=== PATIENT | male | born 1950 | race Caucasian/White ===

== ENCOUNTER 2024-03-26 12:59 | Outpatient (RCR) | payer BC, MEDICARE, SELFPAY ==
[2024-03-26 14:29] LABS: Hematocrit 25.2 % (42.0-54.0); Hemoglobin 8.3 g/dL (14.0-18.0)
[2024-03-27] MEDS: ACETAMINOPHEN 325 MG TABLET 650 MG PO (10:41)
[2024-03-27] MEDS: DIPHENHYDRAMINE HCL 25 MG CAPSULE PO (10:41)
[2024-03-27] MEDS: 0.9 % SODIUM CHLORIDE 250 ML 30 ML IV (10:45)
[2024-03-27 10:46] VITALS: BP 103/69; PULSE 98; TEMP 36.6; O2SAT 96
--- NOTE | 2024-03-27 10:52 | PC.NURSE ---
1030 alert oreinted. discussed transfusion signs and symptoms of reaction ie shortness of breath itching chest pain flank pain etc. tonotify staff. verbalizes understanding.
[2024-03-27 11:00] VITALS: BP 117/67; PULSE 77; TEMP 36.3; O2SAT 98
--- NOTE | 2024-03-27 11:49 | PC.NURSE ---
1100 tolerating transfuision without any signs or sx of reaction, but is complaining of restless legs, needs to be up walking around. 1120 prbc's increased to 250 ml hr. 1140 called [facility]. regarding restless leg symptoms, 1155 order will be faxed for oral ativan.
[2024-03-27] MEDS: LORAZEPAM 0.5 MG TABLET 1 MG PO (12:18)
--- NOTE | 2024-03-27 12:19 | PC.NURSE ---
1210 1st unit of prbc's infused. 1220 2nd unit of prbcc's initiated. medicated with ativan 1 mg po due to restless leg syndrome
[2024-03-27 12:21] VITALS: BP 115/69; TEMP 36.2; O2SAT 96
[2024-03-27 12:37] VITALS: BP 115/54; PULSE 77
--- NOTE | 2024-03-27 13:17 | PC.NURSE ---
toleraating prbc's withut any issues. up walking stillcomplains of restless leg symptoms ativan ineffective at this time
== END 2024-04-07 23:59 | disposition home or self-care (01) ==
LOC: INF 12:59
PROVIDERS: PCP Family Medicine; Visit Provider Nurse Practitioner Family
DX: D46.9 Myelodysplastic syndrome, unspecified (principal)
CPT/HCPCS: 36415; 36430; 85014; 85018; 86850; 86900; 86901; 86923; P9016

== ENCOUNTER 2024-04-17 14:52 | Inpatient (IN) | payer BC, MEDICARE, SELFPAY ==
[2024-04-17] VITALS (46 sets, daily range): BP systolic 74–158; BP diastolic 36–78; PULSE 100–132; TEMP 37.2–39.6; O2SAT 80–99; BMI 34.7; BMI 35.2
--- NOTE | 2024-04-17 14:54 | ECG_ITS ---
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
--- NOTE | 2024-04-17 15:05 | ED_ITS ---
HPI HPI - General Adult General Chief complaint: Shortness of Breath/Dyspnea Stated complaint: SHORTNESS OF BREATH Time Seen by Provider: 04/17/24 14:52 Source: patient History of Present Illness HPI narrative: Patient is a 73-year-old male with a history of multiple myeloma currently on oral chemotherapy who is referred to the emergency department by his oncology office for fever, chills, shortness of breath and bodyaches. Patient states symptoms began last night. He reports a temperature of 102.0 Fahrenheit at home, Tylenol taken prior to arrival. He states he has aching in his legs but has no other areas of pain. He is noted to be vomiting bilious emesis at time of evaluation. He states he had 1 previous episode of emesis this morning. No diarrhea. He denies sputum production with coughing. He was recently seen at [facility] and treated for urinary tract infection. He completed Macrobid. He also received a blood transfusion last week. Related Data Home Medications ?Medication ?Instructions ?Recorded ?Confirmed allopurinol 100 mg tablet 100 mg PO QDAY 04/17/24 04/17/24 atorvastatin 10 mg tablet 10 mg PO QDAY 04/17/24 04/17/24 dapsone 100 mg tablet 100 mg PO QDAY 04/17/24 04/17/24 diphenoxylate-atropine 2.5 1 tab PO Q6H PRN diarrhea 04/17/24 mg-0.025 mg tablet gabapentin 100 mg capsule 100 mg PO Q8H 04/17/24 04/17/24 insulin aspart U-100 100 unit/mL 1 sliding scale dose subcut TID 04/17/24 04/17/24 (3 mL) subcutaneous pen (Novolog FlexPen U-100 Insulin aspart) insulin glargine 100 unit/mL (3 52 unit subcut .qhs 04/17/24 04/17/24 mL) subcutaneous pen (Basaglar KwikPen U-100 Insulin) lenalidomide 2.5 mg capsule 2.5 mg PO .qhs 04/17/24 04/17/24 (Revlimid) ropinirole 2 mg tablet 2 mg PO .qhs 04/17/24 04/17/24 tamsulosin 0.4 mg capsule 0.4 mg PO Q24H 04/17/24 04/17/24 venetoclax 100 mg tablet 100 mg PO Q24H 04/17/24 04/17/24 (Venclexta) Allergies Allergy/AdvReac Type Severity Reaction Status Date / Time diphenhydramine (From AdvReac Intermediate restless Verified 03/27/24 13:17 Benadryl) leg Opioid HPI Opioid Management Most Recent Opioid Data: Last Pain Scale 8 04/17/24 17:16 04/17/24 Last MAR Pain Assessment 04/17/24 17:16 Review of Systems ROS Constitutional Reports: fever and chills Ears, nose, mouth, and throat Denies: throat pain, nasal discharge or nasal congestion Cardiovascular Denies: chest pain Respiratory Reports: shortness of breath Gastrointestinal Reports: nausea and vomiting; Denies: abdominal pain or diarrhea Musculoskeletal Denies: back pain or neck pain Integumentary/Breast Denies: rash Neurological Denies: numbness in extremities or weakness in extremities Hematologic/Lymphatic Denies: easy bruising or easy bleeding PFSH PFSH Social History Little interest or pleasure in doing things: several days Feeling down, depressed, or hopeless: several days Exam Narrative Exam Narrative: Gen.: Awake, alert, in no distress Head: Normocephalic, atraumatic ENT: Moist mucous membranes Respiratory: No respiratory distress, lungs clear bilaterally Cardio: Regular rate and rhythm Gastrointestinal: Abdomen is soft, nondistended and nontender to palpation Extremities: Moves extremities equally Psych: Normal mood and affect Neuro: No focal neuro deficit Skin: Warm, dry, intact Constitutional Vital Signs, click to edit/add: Last Vital Signs Temp 101.3 F H 04/17/24 20:02 Pulse 107 H 04/17/24 15:01 Resp 18 04/17/24 15:01 BP 158/78 H 04/17/24 15:01 Pulse Ox 98 04/17/24 19:22 O2 Del Method Nasal Cannula 04/17/24 19:22 O2 Flow Rate 2 04/17/24 19:22 Course Vital Signs Vital signs: Vital Signs Temperature 99.4 F 04/17/24 15:01 Pulse Rate 107 H 04/17/24 15:01 Respiratory Rate 18 04/17/24 15:01 Blood Pressure 158/78 H 04/17/24 15:01 Pulse Oximetry 97 04/17/24 15:01 Temperature 101.3 F H 04/17/24 20:02 Pulse Rate 107 H 04/17/24 15:01 Respiratory Rate 18 04/17/24 15:01 Blood Pressure 158/78 H 04/17/24 15:01 Pulse Oximetry 98 04/17/24 19:22 Oxygen Delivery Method Nasal Cannula 04/17/24 19:22 Oxygen Delivery Flow Rate 2 04/17/24 19:22 Medical Decision Making MDM Narrative Medical decision making narrative: 1712: Patient's [facility] cancer center oncologist was paged through the answering service to discuss the case with the patient's oncologist 1899: Laboratory studies reviewed and noted showing the patient has a white blood cell count 1.5, hemoglobin 8.9 and stable electrolytes and kidney function. He was treated with Tylenol for fever, this did not improve his fever and he is not able to take Motrin per his oncology service so ice bags were placed in his axilla and groin for temperature control. He received 2 L of IV fluids. Blood pressure is stable. Urine specimen with 2-5 white blood cells, blood cultures are pending, respiratory swabs are negative and initial chest x- ray shows no evidence of acute cardiopulmonary changes. Due to the patient's persistent tachycardia and history of cancer, he was sent for CTs of the chest, abdomen and pelvis. The studies are pending at this time. 1849: Dr. Perales returned our call, he is in agreement that the patient should be transferred to tertiary care, recommended transfer to [facility]. Patient and family are in agreement with this, they request [facility] or [facility] as they have been to those facilities previously. Patient was given additional pain medication, placed on a nasal cannula for comfort although he is otherwise hemodynamically stable at this time. Oncology requests Neupogen subcutaneously and to also give the patient gentamicin in addition to the Zosyn that he has already received. 1929: [facility], Dr. Aj accepted the patient for transfer. 1941: Patient had results of CT, CT of the chest with no evidence of acute process and CT of the abdomen and pelvis with possible colitis/diverticulitis. Patient has no abdominal pain. He has not had any diarrhea or bloody stool, un sure if this represents an acute process contributing to the patient's fever. 2141: Temperature did improve, additional pain medication was given for the patient's legs, family states that he has neuropathy that causes him pain. We contacted the [facility] transfer line, they stated that the patient will not receive a bed this evening as they are still at max capacity. Patient is admitted to this facility pending transfer to [facility]. He is hemodynamically stable at this time. SUPERVISED APC VISIT, PHYSICIAN ATTESTATION: Based on the medical record the care appears appropriate. ? Medical Records Medical records reviewed: Yes I reviewed the patient's medical records Lab Data Lab results reviewed: Yes I reviewed the patient's lab results Labs: Lab Results 04/17/24 04/17/24 04/17/24 Range/Units 15:00 15:07 15:12 WBC 1.5 L (4.0-11.0) 10^3/uL RBC 2.72 L (4.70-6.10) 10^6/uL Hgb 8.9 L (14.0-18.0) g/dL Hct 27.2 L (42.0-54.0) % MCV 100.0 H (80.0-94.0) fL MCH 32.7 (25.9-34.0) pg MCHC 32.7 (29.9-35.2) g/dL RDW 16.8 H (11.0-15.0) % Plt Count 100 L (150-450) 10^3/uL MPV 9.4 L (9.5-13.5) fL Seg Neuts % (Manual) 34.0 L (43.0-75.0) Lymphocytes % (Manual) 48.0 (20.5-60.0) % Monocytes % (Manual) 16.0 H (1.7-12.0) % Eosinophils % (Manual) 2.0 (0.9-7.0) % Basophils % (Manual) 0.0 L (0.2-2.0) % Neutrophils # (Manual) 0.51 L (1.4-6.5) 10^3/uL Lymphocytes # (Manual) 0.72 L (1.20-3.80) 10^3/uL Monocytes # (Manual) 0.24 L (0.30-0.80) 10^3/uL Eosinophils # (Manual) 0.03 (0.00-0.70) 10^3/uL Basophils # (Manual) 0.00 (0.00-0.10) 10^3/uL Hypochromasia 1+ Anisocytosis 1+ Macrocytosis 1+ PT 11.9 H (9.0-11.6) sec INR 1.14 VBG pH 7.377 (7.330-7.430) VBG pCO2 40.4 (40.0-52.0) mmHg Sodium 135 L (136-145) mmol/L Potassium 4.3 (3.5-5.1) mmol/L Chloride 102 (98-107) mmol/L Carbon Dioxide 23.8 (21.0-32.0) mmol/L Anion Gap 13.5 BUN 23.0 H (7.0-18.0) mg/dL Creatinine 1.47 H (0.70-1.30) mg/dL Est GFR ( Amer) 57 L (>=60 mL/min/1.73m^2) Est GFR (Non-Af Amer) 47 L (>=60 mL/min/1.73m^2) BUN/Creatinine Ratio 15.6 Glucose 224 H (74-106) mg/dL Lactate 2.9 H* (0.4-2.0) mmol/L Calcium 8.9 (8.5-10.1) mg/dL Total Bilirubin 1.4 H (0.2-1.0) mg/dL AST 49 H (15-37) U/L ALT 56 (16-63) U/L Alkaline Phosphatase 105 (46-116) U/L Troponin I High Sens 19.5 (4.0-76.1) pg/mL NT-Pro-B Natriuret Pep 219.0 (<=900.0) pg/mL Total Protein 7.3 (6.4-8.2) g/dL Albumin 3.1 L (3.4-5.0) g/dL Globulin 4.2 g/dL Albumin/Globulin Ratio 0.7 Urine Color (YELLOW) Urine Clarity (CLEAR) Urine pH (5.0-9.0) Ur Specific [place] (1.005-1.025) Urine Protein (NEG/TRACE) mg/dL Urine Glucose (UA) (NEGATIVE) mg/dL Urine Ketones (NEGATIVE) mg/dL Urine Occult Blood (NEGATIVE) Urine Nitrite (NEGATIVE) Urine Bilirubin (NEGATIVE) Urine Urobilinogen (0.2-1.0) EU/dL Ur Leukocyte Esterase (NEGATIVE) Urine RBC (0-2) #/HPF Urine WBC (NONE SEEN) #/HPF Ur Squamous Epith Cells (NONE/RARE) #/LPF Urine Crystals (None Seen) #/HPF Urine Bacteria (NONE SEEN) #/HPF Urine Casts (NONE SEEN) #/LPF Urine Mucus (NONE SEEN) Ur Culture Indicated? Influenza Type A Ag Negative Influenza Type B Ag Negative RSV Antigen Not detected (NOT DETECTE) SARS-CoV-2 Ag (CV2AG) Negative (NEGATIVE) 04/17/24 04/17/24 Range/Units 16:57 18:26 WBC (4.0-11.0) 10^3/uL RBC (4.70-6.10) 10^6/uL Hgb (14.0-18.0) g/dL Hct (42.0-54.0) % MCV (80.0-94.0) fL MCH (25.9-34.0) pg MCHC (29.9-35.2) g/dL RDW (11.0-15.0) % Plt Count (150-450) 10^3/uL MPV (9.5-13.5) fL Seg Neuts % (Manual) (43.0-75.0) Lymphocytes % (Manual) (20.5-60.0) % Monocytes % (Manual) (1.7-12.0) % Eosinophils % (Manual) (0.9-7.0) % Basophils % (Manual) (0.2-2.0) % Neutrophils # (Manual) (1.4-6.5) 10^3/uL Lymphocytes # (Manual) (1.20-3.80) 10^3/uL Monocytes # (Manual) (0.30-0.80) 10^3/uL Eosinophils # (Manual) (0.00-0.70) 10^3/uL Basophils # (Manual) (0.00-0.10) 10^3/uL Hypochromasia Anisocytosis Macrocytosis PT (9.0-11.6) sec INR VBG pH (7.330-7.430) VBG pCO2 (40.0-52.0) mmHg Sodium (136-145) mmol/L Potassium (3.5-5.1) mmol/L Chloride (98-107) mmol/L Carbon Dioxide (21.0-32.0) mmol/L Anion Gap BUN (7.0-18.0) mg/dL Creatinine (0.70-1.30) mg/dL Est GFR ( Amer) (>=60 mL/min/1.73m^2) Est GFR (Non-Af Amer) (>=60 mL/min/1.73m^2) BUN/Creatinine Ratio Glucose (74-106) mg/dL Lactate 3.3 H* (0.4-2.0) mmol/L Calcium (8.5-10.1) mg/dL Total Bilirubin (0.2-1.0) mg/dL AST (15-37) U/L ALT (16-63) U/L Alkaline Phosphatase (46-116) U/L Troponin I High Sens (4.0-76.1) pg/mL NT-Pro-B Natriuret Pep (<=900.0) pg/mL Total Protein (6.4-8.2) g/dL Albumin (3.4-5.0) g/dL Globulin g/dL Albumin/Globulin Ratio Urine Color Yellow (YELLOW) Urine Clarity Clear (CLEAR) Urine pH 5.5 (5.0-9.0) Ur Specific [place] 1.025 (1.005-1.025) Urine Protein >=300 A (NEG/TRACE) mg/dL Urine Glucose (UA) 250 A (NEGATIVE) mg/dL Urine Ketones Negative (NEGATIVE) mg/dL Urine Occult Blood Large A (NEGATIVE) Urine Nitrite Negative (NEGATIVE) Urine Bilirubin Negative (NEGATIVE) Urine Urobilinogen 0.2 (0.2-1.0) EU/dL Ur Leukocyte Esterase Negative (NEGATIVE) Urine RBC 20-50 A (0-2) #/HPF Urine WBC 2-5 A (NONE SEEN) #/HPF Ur Squamous Epith Cells Rare (NONE/RARE) #/LPF Urine Crystals None seen (None Seen) #/HPF Urine Bacteria Trace A (NONE SEEN) #/HPF Urine Casts None seen (NONE SEEN) #/LPF Urine Mucus Trace A (NONE SEEN) Ur Culture Indicated? No Influenza Type A Ag Influenza Type B Ag RSV Antigen (NOT DETECTE) SARS-CoV-2 Ag (CV2AG) (NEGATIVE) Imaging Data Chest x-ray: Attestation: I have reviewed the pertinent imaging results. Radiologist's impression: ITS Impressions Chest X-Ray 04/17/24 15:19 IMPRESSION: No acute cardiopulmonary process. Electronically authenticated by: HARLEEN ROACH Date: 04/17/2024 15:51 Abdomen/Pelvis CT 04/17/24 16:36 Impression: 1. Evidence of acute colitis/diverticulitis involving proximal transverse colon. Please correlate clinically. No pericolonic fluid collections or free air. 2. Cirrhotic morphology of the liver. Stable small bilateral renal hypodensities measuring up to 1.8 cm, probably cysts. 3. Degenerative disc disease at L3-L4 level. Small fat-containing umbilical hernia. Electronically authenticated by: JESSICA JOE Date: 04/17/2024 19:29 Chest CTA 04/17/24 16:36 IMPRESSION: 1. No evidence of pulmonary embolism, in limitation of respiratory motion artifacts and limited opacification of segmental and subsegmental branches of pulmonary arteries. 2. No evidence of acute cardiopulmonary process. Electronically authenticated by: Quickfilter TechnologiesWHITNEY JOE Date: 04/17/2024 19:38 ECG Data Attestation: I personally reviewed and interpreted this ECG as follows: (Sinus tachycardia at a rate of 101, right bundle branch block with ST depression in the anterior leads, no acute ST elevation or ectopy. EKG reviewed by attending physician) Critical Care Time Critical Care Time Critical Care Time: Yes Total Critical Care Time: 35 Attestation: 35 minutes of critical care time assigned for fluid resuscitation and treatment of fever and a neutropenic cancer patient in addition to transfer to tertiary care Discharge Plan Discharge Chief Complaint: Shortness of Breath/Dyspnea Time of Disposition Decision: 21:45 Discharge location: [facility] Prescriptions / Home Meds: No Action allopurinol 100 mg tablet 100 mg PO QDAY atorvastatin 10 mg tablet 10 mg PO QDAY dapsone 100 mg tablet 100 mg PO QDAY diphenoxylate-atropine 2.5-0.025 mg tablet 1 tab PO Q6H PRN (Reason: diarrhea) gabapentin 100 mg capsule 100 mg PO Q8H insulin aspart U-100 [Novolog FlexPen U-100 Insulin] 100 unit/mL (3 mL) insulin pen 1 sliding scale dose SUBCUT TID insulin glargine [Basaglar KwikPen U-100 Insulin] 100 unit/mL (3 mL) insulin pen 52 unit SUBCUT .qhs lenalidomide [Revlimid] 2.5 mg capsule 2.5 mg PO .qhs ropinirole 2 mg tablet 2 mg PO .qhs tamsulosin 0.4 mg capsule 0.4 mg PO Q24H Venclexta 100 mg tablet 100 mg PO Q24H Print Language: Nepalese Referrals: ANDRES BEST [Primary Care Provider] - 1 week
--- NOTE | 2024-04-17 15:19 | XR_ITS ---
The [address] [address] Patient Name: DARRIUS BAUER MRN: [id number] date: 1950 Sex: M Assigned Patient Location: ER Current Patient Location: ER Accession/Order Number: [id number] Exam Date: 04/17/2024 15:30 Report Date: 04/17/2024 15:51 At the request of: JINA SCHAEFER Procedure: XR chest 1V EXAM: XR chest 1V CLINICAL INDICATION: Fever TECHNIQUE: Portable frontal semi-erect view of the chest. COMPARISON: None. FINDINGS: Lines and tubes: None. Lungs: Right hemidiaphragm elevation. No convincing focal infiltrates. No pleural effusion or pneumothorax. Heart: Cardiac and mediastinal contours are unremarkable. No overt pulmonary vascular congestion. Osseous structures: No acute abnormalities. XR/XR chest 1V IMPRESSION: No acute cardiopulmonary process. Electronically authenticated by: HARLEEN ROACH Date: 04/17/2024 15:51
[2024-04-17 15:23] LABS: Hematocrit 27.2 % (42.0-54.0); Hemoglobin 8.9 g/dL (14.0-18.0); Mean Corpuscular HGB Conc 32.7 g/dL (29.9-35.2); Mean Corpuscular Hemoglobin 32.7 pg (25.9-34.0); Mean Platelet Volume 9.4 fL (9.5-13.5); Platelet Count 100 10^3/uL (150-450); Red Blood Count 2.72 10^6/uL (4.70-6.10); Red Cell Distribution Width 16.8 % (11.0-15.0); White Blood Count 1.5 10^3/uL (4.0-11.0)
[2024-04-17] MEDS: 0.9 % SODIUM CHLORIDE 1,000 ML 999 ML IV (15:23)
[2024-04-17] MEDS: ONDANSETRON PF 4 MG/2 ML VIAL IV ×2 (15:24→17:16)
[2024-04-17] MEDS: HYDROMORPHONE HCL 0.5 MG/0.5 ML SYRINGE IV ×3 (15:24→21:00)
[2024-04-17 15:30] LABS: PCO2 VBG 40.4 mmHg (40.0-52.0); pH VBG 7.377 (7.330-7.430)
[2024-04-17 15:33] LABS: Internal Control Within Normal Limits; Respiratory Syncytial Virus Not Detected (NOT DETECTE)
[2024-04-17 15:34] LABS: INR 1.14; Prothrombin Time 11.9 sec (9.0-11.6)
[2024-04-17 15:34] LABS: Influenza Virus A Antigen Negative; Influenza Virus B Antigen Negative; Internal Control Within Normal Limits; SARS-CoV-2 Ag NEGATIVE (NEGATIVE)
[2024-04-17 15:37] LABS: Alanine Aminotransferase 56 U/L (16-63); Albumin Globulin Ratio 0.7; Albumin Level 3.1 g/dL (3.4-5.0); Alkaline Phosphatase 105 U/L (46-116); Anion Gap 13.5; Aspartate Amino Transferase 49 U/L (15-37); BUN Creatinine Ratio 15.6; Bilirubin Total 1.4 mg/dL (0.2-1.0); Calcium 8.9 mg/dL (8.5-10.1); Carbon Dioxide 23.8 mmol/L (21.0-32.0); Chloride 102 mmol/L (98-107); Estimated GFR (African America 57 (>=60 mL/min/1.73m^2); Estimated GFR (Non-African Ame 47 (>=60 mL/min/1.73m^2); Globulin 4.2 g/dL; Glucose 224 mg/dL (74-106); Potassium 4.3 mmol/L (3.5-5.1); Sodium 135 mmol/L (136-145); Total Protein 7.3 g/dL (6.4-8.2)
[2024-04-17 15:44] LABS: Troponin I High Sensitivity 19.5 pg/mL (4.0-76.1)
[2024-04-17 15:46] LABS: Lactate/Lactic Acid 2.9 mmol/L (0.4-2.0)
[2024-04-17 16:23] LABS: Eosinophils Absolute Manual 0.03 10^3/uL (0.00-0.70); Lymphocytes Absolute Manual 0.72 10^3/uL (1.20-3.80); Monocytes Absolute Manual 0.24 10^3/uL (0.30-0.80); Segmented Neut Absolute Manual 0.51 10^3/uL (1.4-6.5)
[2024-04-17 16:24] LABS: Anisocytosis 1+; Hypochromasia 1+; Macrocytosis 1+
--- NOTE | 2024-04-17 16:36 | CT_ITS ---
The [address] [address] Patient Name: DARRIUS BAUER MRN: [id number] date: 1950 Sex: M Assigned Patient Location: ER Current Patient Location: Accession/Order Number: [id number] Exam Date: 04/17/2024 17:50 Report Date: 04/17/2024 19:29 At the request of: JINA SCHAEFER Procedure: CT abdomen pelvis w con Indication: Fever. Nausea. Vomiting. Comparison: 08/03/2022 exam Procedure: Axial images were made from the diaphragms through the symphysis pubis. No oral contrast was given prior to scanning. Omnipaque 350 Intravenous contrast was given. Dose reduction techniques were achieved by using automated exposure control and/or adjustment of mA and/or kV according to patient size and/or use of iterative reconstruction technique. Findings: Liver/Biliary System: Postoperative changes status post partial resection of right lobe of the liver. Cirrhotic morphology of the liver. No liver masses are seen. No intra or extrahepatic biliary dilatation. Status postcholecystectomy. Pancreas/Spleen: No evidence of acute pancreatitis. Pancreatic duct is not dilated. No pancreatic masses. No splenomegaly or splenic lesions. Kidneys/Adrenals: Normal symmetrical nephrograms. No renal masses. Stable small bilateral renal hypodensities measuring up to 1.8 cm, probably cysts. No renal or ureteral stones are seen. No hydronephrosis or hydroureter bilaterally. No adrenal nodules. Aorta/Vessels: No evidence of aortic aneurysm. Patent IVC, renal veins, hepatic veins and portal venous system. Bowel/Fluid/Nodes: Diffuse colonic diverticulosis. Diffuse wall thickening of proximal transverse colon with adjacent fat stranding suggestive of acute colitis/diverticulitis. Please correlate clinically. No fluid collections or free air is seen adjacent to the inflamed transverse colon. Normal appendix. No small bowel dilatation or wall thickening. No evidence of bowel obstruction. No ascites. No adenopathy. Lung bases: Clear. Other findings: No aggressive osseous lesions are seen. Small fat-containing umbilical hernia. Pelvis: No pelvic masses or adenopathy. No free fluid seen in the pelvis. Bladder, seminal vesicles and prostate are unremarkable. Other Findings: No aggressive osseous lesions are seen. Degenerative disc disease at L3-L4 level. CT/CT abdomen pelvis w con Impression: 1. Evidence of acute colitis/diverticulitis involving proximal transverse colon. Please correlate clinically. No pericolonic fluid collections or free air. 2. Cirrhotic morphology of the liver. Stable small bilateral renal hypodensities measuring up to 1.8 cm, probably cysts. 3. Degenerative disc disease at L3-L4 level. Small fat-containing umbilical hernia. Electronically authenticated by: JESSICA JOE Date: 04/17/2024 19:29
--- NOTE | 2024-04-17 16:36 | CT_ITS ---
[address] [address] Patient Name: DARRIUS BAUER MRN: [id number] date: 1950 Sex: M Assigned Patient Location: ER Current Patient Location: Accession/Order Number: [id number] Exam Date: 04/17/2024 17:50 Report Date: 04/17/2024 19:38 At the request of: JINA SCHAEFER Procedure: CT angio chest EXAMINATION: CT CHEST WITHOUT ONLY. HISTORY: Shortness of breath. COMPARISON: 08/03/2022 exam TECHNIQUE: CT examination of the chest with IV contrast. CT angiography protocol was obtained. Omnipaque 350 injected intravenously. Coronal and sagittal reformations were performed. Dose reduction techniques were achieved by using automated exposure control and/or adjustment of mA and/or kV according to patient size and/or use of iterative reconstruction technique. Findings: Heart/vascular: No evidence of pulmonary embolism, in limitation of limited opacification of segmental and subsegmental branches of pulmonary arteries. Respiratory motion artifacts as well limited evaluation in small pulmonary arteries due to patient's inability to hold breath properly during the exam. No evidence of aortic aneurysm or dissection. No pericardial effusion. Extrathoracic:No axillary adenopathy. No subcutaneous nodules are seen.. Pleura:No pleural effusion or pneumothorax. No pleural calcifications. LUNGS:No acute consolidation. No atelectasis. No pulmonary nodules or masses are seen. Patent major airways. No bronchiectasis. Mediastinum/paresh:No adenopathy or masses. Osseous structures:No aggressive osseous lesions are seen. CT/CT angio chest IMPRESSION: 1. No evidence of pulmonary embolism, in limitation of respiratory motion artifacts and limited opacification of segmental and subsegmental branches of pulmonary arteries. 2. No evidence of acute cardiopulmonary process. Electronically authenticated by: JESSICA JOE Date: 04/17/2024 19:38
[2024-04-17 17:09] LABS: Bilirubin Urine NEGATIVE (NEGATIVE); Blood Urine LARGE (NEGATIVE); Clarity Urine CLEAR (CLEAR); Color Urine YELLOW (YELLOW); Glucose Urine UA 250 mg/dL (NEGATIVE); Ketones Urine NEGATIVE (NEGATIVE); Leukocyte Esterase Urine NEGATIVE (NEGATIVE); Nitrite Urine NEGATIVE (NEGATIVE); Protein Urine >=300 mg/dL (NEG/TRACE); Specific Gravity Urine 1.025 (1.005-1.025); Urine Microscopic Indicated YES; Urobilinogen Urine 0.2 EU/dL (0.2-1.0); pH Urine 5.5 (5.0-9.0)
[2024-04-17] MEDS: ACETAMINOPHEN 500 MG TABLET 1000 MG PO (17:16)
[2024-04-17] MEDS: 0.9 % SODIUM CHLORIDE 1,000 ML 1000 ML IV ×2 (17:16→20:01)
[2024-04-17] MEDS: PIPERACILLIN SODIUM/TAZOBACTAM 4.5 GM in 0.9 % SODIUM CHLORIDE 50 ML IV (17:17)
[2024-04-17 17:22] LABS: Bacteria Urine TRACE #/HPF (NONE SEEN); Cast Seen? NONE SEEN #/LPF (NONE SEEN); Crystals Seen? None Seen #/HPF (None Seen); Mucus Urine TRACE (NONE SEEN); RBC Urine 20-50 #/HPF (0-2); Squamous Epithelial Cell Urine RARE #/LPF (NONE/RARE); Urine Culture Indicated NO
[2024-04-17 18:50] LABS: Lactate/Lactic Acid 3.3 mmol/L (0.4-2.0)
[2024-04-17] MEDS: FILGRASTIM 480 MCG/1.6 ML VIAL SUBQ (20:37)
[2024-04-17] MEDS: SODIUM CHLORIDE 0.9% IV (20:38)
[2024-04-17] MEDS: GENTAMICIN SULFATE IV (20:38)
[2024-04-17] MEDS: FENTANYL CITRATE/PF 100 MCG/2 ML VIAL 50 MCG IV (22:31)
[2024-04-17] MEDS: 0.9 % SODIUM CHLORIDE 1,000 ML 250 ML IV (22:36)
--- NOTE | 2024-04-17 23:45 | PC.NURSE ---
Unable to document Genamin
[2024-04-18] VITALS (23 sets, daily range): BP systolic 82–131; BP diastolic 41–68; PULSE 82–112; TEMP 36.6–37.8; O2SAT 87–99
--- NOTE | 2024-04-18 00:32 | PC.NURSE ---
Pt desatting to 88% SpO2. Placed on 2L NC, now 98%
--- NOTE | 2024-04-18 01:18 | PC.NURSE ---
Dark alban/ red urine
[2024-04-18] MEDS: ROPINIROLE HCL 1 MG TABLET 2 MG PO ×2 (02:33→21:47)
[2024-04-18] MEDS: GABAPENTIN 100 MG CAPSULE PO ×2 (02:33→10:53)
[2024-04-18] MEDS: ONDANSETRON PF 4 MG/2 ML VIAL IV (05:14)
--- NOTE | 2024-04-18 05:44 | PC.NURSE ---
Pt transferred to MS unit, room 203 via wheelchair at this time. Pt states to wait until later in the morning to call his and tell her that he moved rooms.
[2024-04-18 05:54] LABS: Hematocrit 24.7 % (42.0-54.0); Hemoglobin 7.8 g/dL (14.0-18.0); Mean Corpuscular HGB Conc 31.6 g/dL (29.9-35.2); Mean Corpuscular Hemoglobin 32.4 pg (25.9-34.0); Mean Corpuscular Volume 102.5 fL (80.0-94.0); Mean Platelet Volume 9.1 fL (9.5-13.5); Platelet Count 79 10^3/uL (150-450); Red Blood Count 2.41 10^6/uL (4.70-6.10); Red Cell Distribution Width 17.1 % (11.0-15.0); White Blood Count 2.4 10^3/uL (4.0-11.0)
--- NOTE | 2024-04-18 06:01 | P.HP_ITS ---
HPI H&P: HPI History of Present Illness Chief complaint: SHORTNESS OF BREATH;NEUTROPENIC FEVER Narrative: Patient presented to the emergency room at the request of his oncologist, fever, some difficulty breathing, chills and bodyaches. Temperature 102 at home. In the emergency room found to have neutropenia, thrombocytopenia When I saw patient up on the medical surgical floor, his breathing seems comfortable, but did describe some abdominal pain. Opioid HPI Opioid Management Most Recent Pain and Opioid Data: Last Pain Scale 5 04/18/24 06:00 04/18/24 Last Pain Assessment 04/18/24 08:00 Last ORT Total Score 0 04/17/24 23:35 04/17/24 Last ORT Risk Category Low Risk 04/17/24 23:35 04/17/24 Review of Systems ROS Status of ROS 10 or more systems reviewed and unremark able except as noted in history and below [facility] Medical History (Updated 04/17/24 @ 23:49 by Gloria Rosas RN) Diabetes ?E11.9 - Type 2 diabetes mellitus without complications (ICD-10) Surgical History (Updated 04/17/24 @ 23:48 by Gloria Rosas RN) History of stem cell transplant ?Z94.84 - Stem cells transplant status (ICD-10) Social History Little interest or pleasure in doing things: not at all Feeling down, depressed, or hopeless: not at all Meds Home Medications and Allergies Home Medications ?Medication ?Instructions ?Recorded ?Confirmed ?Type allopurinol 100 mg tablet 100 mg PO QDAY 04/17/24 04/17/24 History atorvastatin 10 mg tablet 10 mg PO QPM 04/17/24 04/18/24 History dapsone 100 mg tablet 100 mg PO QDAY 04/17/24 04/17/24 History diphenoxylate-atropine 2.5 1 tab PO Q6H PRN diarrhea 04/17/24 04/18/24 History mg-0.025 mg tablet gabapentin 100 mg capsule 100 mg PO Q8H 04/17/24 04/17/24 History insulin aspart U-100 100 unit/mL 1 sliding scale dose subcut TID 04/17/24 04/17/24 History (3 mL) subcutaneous pen (Novolog FlexPen U-100 Insulin aspart) insulin glargine 100 unit/mL (3 52 unit subcut .qhs 04/17/24 04/17/24 History mL) subcutaneous pen (Basaglar KwikPen U-100 Insulin) lenalidomide 2.5 mg capsule 2.5 mg PO .qhs 04/17/24 04/17/24 History (Revlimid) ropinirole 2 mg tablet 2 mg PO .qhs 04/17/24 04/17/24 History tamsulosin 0.4 mg capsule 0.4 mg PO Q24H 04/17/24 04/17/24 History venetoclax 100 mg tablet 100 mg PO Q24H 04/17/24 04/17/24 History (Venclexta) Allergies Allergy/AdvReac Type Severity Reaction Status Date / Time diphenhydramine (From AdvReac Intermediate restless Verified 03/27/24 13:17 Benadryl) leg Exam Constitutional Vital Signs, click to edit/add: Last Vital Signs Temp 99.1 F 04/18/24 04:59 Pulse 101 H 04/18/24 04:59 Resp 16 04/18/24 04:59 BP 98/58 04/18/24 04:59 Pulse Ox 96 04/18/24 04:59 O2 Del Method Room Air 04/18/24 02:21 O2 Flow Rate 2 04/18/24 00:31 Documenting provider has reviewed patient's vital signs: yes Common normals: apparent distress (Mild painful distress) Exam limitations: no altered mental status Chest Common normals: inspection of chest normal Respiratory Common normals: normal respiratory effort (Somewhat shallow due to increased abdominal pain with deep breathing), no use of accessory muscles and clear to auscultation bilaterally Cardio Common normals: regular rate, regular rhythm and no murmurs GI Common normals: Normal to inspection, nondistended, normoactive bowel sounds present and soft to palpation; tender Palpation: tender (More mid abdomen, also pain to mid abdomen with palpation of left lowr quad) and rebound tenderness present Extremity Common normals: normal to inspection Neuro Common normals: oriented x3, CN's II-XII intact bilaterally and moves all extremities Results Labs Labs: Short CBC 04/17/24 Range/Units 15:00 WBC 1.5 L (4.0-11.0) 10^3/uL Hgb 8.9 L (14.0-18.0) g/dL Hct 27.2 L (42.0-54.0) % Plt Count 100 L (150-450) 10^3/uL BMP 04/17/24 15:00 Sodium 135 L Potassium 4.3 Chloride 102 Carbon Dioxide 23.8 BUN 23.0 H Creatinine 1.47 H Glucose 224 H Calcium 8.9 Liver Function 04/17/24 Range/Units 15:00 Total Bilirubin 1.4 H (0.2-1.0) mg/dL AST 49 H (15-37) U/L ALT 56 (16-63) U/L Alkaline Phosphatase 105 (46-116) U/L Albumin 3.1 L (3.4-5.0) g/dL Urine 04/17/24 Range/Units 16:57 Urine Color Yellow (YELLOW) Urine Clarity Clear (CLEAR) Urine pH 5.5 (5.0-9.0) Ur Specific [place] 1.025 (1.005-1.025) Urine Protein >=300 A (NEG/TRACE) mg/dL Urine Glucose (UA) 250 A (NEGATIVE) mg/dL ABG ABG results: 04/17/24 15:12 VBG pH 7.377 VBG pCO2 40.4 Assessment and Plan Assessment and Plan (1) Multiple myeloma: (2) SIRS (systemic inflammatory response syndrome): (3) Neutropenic fever: (4) Diabetes: Plan Admission findings: Fever to 103.2, sinus tachycardia, respiratory distress, hypotension despite 2 L of IV fluids with a MAP of 57, acute hypoxia, neutropenia, anemia, thrombocytopenia, hyponatremia, acute kidney injury, hyperglycemia, bandemia, positive urinalysis with hematuria and acute abdominal findings with lactic acidosis and elevated liver function test with coagulopathy secondary to acute diverticulitis resulting in severe sepsis with septic shock, hypotensive despite IV fluid resuscitation. Acute abdomen with acute diverticulitis and rebound tenderness with neutropenic sepsis with severe sepsis and bandemia, ANC on admission 0.5-continue with IV antibiotics, severe sepsis with septic shock secondary to the acute diverticulitis, shock seems to be improved after third bolus of IV fluids, no need for IV pressors at this time. Patient high risk for reoccurrence of his hypotension with significant immune deficiency and ANC of 0.5 on admission Hematuria with possible acute UTI-culture pending, continue with antibiotics as outlined above Neutropenic sepsis secondary to acute diverticulitis and complicated by his multiple myeloma treatment on chemotherapy Coagulopathy with elevated INR-repeat this a.m., coagulopathy secondary to the severe sepsis with neutropenic sepsis as outlined above Thrombocytopenia secondary to chemotherapy for the multiple myeloma-worse today. Continue to monitor Acute kidney injury stage II (baseline creatinine of 1, up to 1.8 today, so 180% above baseline and decreased urine output with urine output of 0.14 cc/kg/hr) - continue with IV fluid resuscitation and received 3 boluses and continue with IV fluids may need recurrent boluses based on hypotension due to severe sepsis with septic shock Hyponatremia-improved this morning with IV fluid resuscitation Elevated liver function test with hyperbilirubinemia-reviewed CT scan, possible cirrhosis, repeat serial labs likely a complication of the severe sepsis and cirrhosis IDDM-insulin sliding scale, will cut back his long-acting dose in half with patient being n.p.o. Moderate protein calorie malnutrition-will diet manage this once he is taking oral intake again Multiple myeloma-will maintain current oral agents Admission status: Patient admitted with neutropenic sepsis with ANC of 51, bandemia, severe sepsis with septic shock, failing IV boluses, lactic acidosis secondary to acute abdomen secondary to acute diverticulitis, medically necessary treatment will span 2 midnights. Inpatient status.
[2024-04-18 06:11] LABS: Alanine Aminotransferase 42 U/L (16-63); Albumin Globulin Ratio 0.6; Albumin Level 2.4 g/dL (3.4-5.0); Alkaline Phosphatase 68 U/L (46-116); Anion Gap 14.6; Aspartate Amino Transferase 37 U/L (15-37); BUN Creatinine Ratio 14.2; Bilirubin Total 2.1 mg/dL (0.2-1.0); Calcium 7.6 mg/dL (8.5-10.1); Carbon Dioxide 22.2 mmol/L (21.0-32.0); Chloride 105 mmol/L (98-107); Estimated GFR (African America 43 (>=60 mL/min/1.73m^2); Estimated GFR (Non-African Ame 35 (>=60 mL/min/1.73m^2); Globulin 3.9 g/dL; Glucose 255 mg/dL (74-106); Potassium 4.8 mmol/L (3.5-5.1); Sodium 137 mmol/L (136-145); Total Protein 6.3 g/dL (6.4-8.2)
[2024-04-18 06:17] LABS: Gentamicin Random 4.6 ug/mL
[2024-04-18] MEDS: PANTOPRAZOLE SODIUM 40 MG VIAL IV (06:40)
[2024-04-18] MEDS: 0.9 % SODIUM CHLORIDE 1,000 ML 1000 ML IV (06:49)
[2024-04-18 06:54] LABS: Band Neutrophils Absolute 0.2 10^3/uL (0.0-0.3); Lymphocytes Absolute Manual 0.91 10^3/uL (1.20-3.80); Metamyelocytes Absolute Manual 0.02; Monocytes Absolute Manual 0.28 10^3/uL (0.30-0.80)
[2024-04-18 07:45] LABS: Glucometer 304 mg/dL (74-106)
--- NOTE | 2024-04-18 08:29 | CM.NOTE ---
Rounds made with Dr. Pena, pt awaiting transfer to [facility]. Pt will rebound tenderness on Dr. Pena's exam this AM. Dr. Pena discussed plan of care with pt.
[2024-04-18] MEDS: PIPERACILLIN SODIUM/TAZOBACTAM 3.375 GM in 0.9 % SODIUM CHLORIDE 50 ML IV ×3 (09:21→23:45)
[2024-04-18] MEDS: 0.9 % SODIUM CHLORIDE 1,000 ML 125 ML IV ×2 (09:21→16:49)
[2024-04-18] MEDS: [UNRECOGNIZED DRUG - REMARK] 100 EACH PO (09:21)
[2024-04-18 09:33] LABS: INR 1.33; Partial Thromboplastin Time 39.2 sec (22.3-36.2); Prothrombin Time 13.7 sec (9.0-11.6)
--- NOTE | 2024-04-18 13:25 | SWNOTE1 ---
Plan is for pt to be transferred to higher level of care.
[2024-04-18 15:29] LABS: Internal Control Within Normal Limits; Occult Blood Positive
[2024-04-18 16:44] LABS: Glucometer 247 mg/dL (74-106)
[2024-04-18] MEDS: INSULIN ASPART 300 UNIT/3 ML PEN SUBQ (16:50)
[2024-04-18] MEDS: TAMSULOSIN HCL 0.4 MG CAPSULE PO (21:46)
[2024-04-18] MEDS: ACETAMINOPHEN 500 MG TABLET 1000 MG PO (21:46)
[2024-04-18] MEDS: HYOSCYAMINE SULFATE 0.125 MG TAB.SUBL SL (21:47)
[2024-04-19] VITALS (25 sets, daily range): BP systolic 102–145; BP diastolic 52–77; PULSE 62–86; TEMP 36.5–36.9; O2SAT 90–95; BMI 42.6
[2024-04-19] MEDS: 0.9 % SODIUM CHLORIDE 1,000 ML 125 ML IV ×2 (00:31→07:54)
[2024-04-19] MEDS: GABAPENTIN 100 MG CAPSULE PO ×3 (00:31→18:40)
[2024-04-19] MEDS: PANTOPRAZOLE SODIUM 40 MG VIAL IV ×2 (05:31→18:40)
[2024-04-19 06:13] LABS: Basophils Percent Auto 0.4 % (0.2-2.0); Eosinophils Percent Auto 0.4 % (0.9-7.0); Immature Granulocytes Abs Auto 0.09 10^3/uL (0.00-0.03); Lymphocytes Absolute Auto 0.9 10^3/uL (1.2-3.8); Lymphocytes Percent Auto 40.3 % (20.5-60.0); Mean Corpuscular HGB Conc 30.8 g/dL (29.9-35.2); Mean Corpuscular Hemoglobin 31.9 pg (25.9-34.0); Mean Corpuscular Volume 103.7 fL (80.0-94.0); Mean Platelet Volume 9.7 fL (9.5-13.5); Monocytes Absolute Auto 0.4 10^3/uL (0.3-0.8); Monocytes Percent Auto 16.8 % (1.7-12.0); Neutrophils Absolute Auto 0.9 10^3/uL (1.4-6.5); Neutrophils Percent Auto 38.1 % (43.0-75.0); Platelet Count 72 10^3/uL (150-450); Red Blood Count 2.16 10^6/uL (4.70-6.10); Red Cell Distribution Width 17.7 % (11.0-15.0); White Blood Count 2.3 10^3/uL (4.0-11.0)
[2024-04-19 06:27] LABS: Alanine Aminotransferase 29 U/L (16-63); Albumin Globulin Ratio 0.5; Alkaline Phosphatase 46 U/L (46-116); Anion Gap 15.5; Aspartate Amino Transferase 26 U/L (15-37); BUN Creatinine Ratio 16.2; Bilirubin Total 1.2 mg/dL (0.2-1.0); Calcium 7.2 mg/dL (8.5-10.1); Carbon Dioxide 22.3 mmol/L (21.0-32.0); Chloride 108 mmol/L (98-107); Estimated GFR (African America 47 (>=60 mL/min/1.73m^2); Estimated GFR (Non-African Ame 39 (>=60 mL/min/1.73m^2); Globulin 3.7 g/dL; Glucose 180 mg/dL (74-106); Potassium 3.8 mmol/L (3.5-5.1); Sodium 142 mmol/L (136-145); Total Protein 5.7 g/dL (6.4-8.2)
[2024-04-19 06:30] LABS: Hematocrit 22.4 % (42.0-54.0); Hemoglobin 6.9 g/dL (14.0-18.0)
[2024-04-19 06:43] LABS: INR 1.34; Prothrombin Time 13.8 sec (9.0-11.6)
[2024-04-19 06:52] LABS: Partial Thromboplastin Time 40.3 sec (22.3-36.2)
--- NOTE | 2024-04-19 07:31 | CM.NOTE ---
Rounds made with Dr. Pena, pt awaiting bed at [facility]. Pt continues with severe abdominal pain.
--- NOTE | 2024-04-19 08:23 | XR_ITS ---
The [address] [address] Patient Name: DARRIUS BAUER MRN: [id number] date: 1950 Sex: M Assigned Patient Location: [place] Current Patient Location: [place] Accession/Order Number: [id number] Exam Date: 04/19/2024 08:40 Report Date: 04/19/2024 09:19 At the request of: ANDREA ROSAS Procedure: XR acute abdomen series EXAMINATION: XR acute abdomen series HISTORY: abd pain, diverticulitis COMPARISON: 04/17/2024 FINDINGS: LUNGS: Minimal linear opacity in the right lung base, atelectasis is favored. The left lung is clear MEDIASTINUM: No abnormal widening. BOWEL GAS PATTERN: Non-obstructed. FREE AIR: None. CALCIFICATIONS: None significant. BONES: No fracture or visible bone lesion. OTHER: Negative. XR/XR acute abdomen series IMPRESSION: Right basilar atelectasis Nonobstructive bowel gas pattern Electronically authenticated by: JAMES BEST Date: 04/19/2024 09:19
--- NOTE | 2024-04-19 08:28 | P.PN_ITS ---
Progress Note: Subjective Subjective Interval history: Still with abdominal pain today. Denies chest pain or shortness of breath. Exam Constitutional Vital Signs, click to edit/add: Last Vital Signs Temp 97.8 F 04/19/24 07:34 Pulse 78 04/19/24 08:00 Resp 18 04/19/24 07:34 BP 104/54 04/19/24 07:34 Pulse Ox 90 L 04/19/24 07:34 O2 Del Method Room Air 04/19/24 07:34 O2 Flow Rate 2 04/18/24 00:31 Documenting provider has reviewed patient's vital signs: yes Common normals: apparent distress (Mild painful distress with moving in bed) Respiratory Common normals: normal respiratory effort and no retractions Cardio Common normals: regular rate and regular rhythm GI Common normals: Normal to inspection, nondistended, normoactive bowel sounds present and soft to palpation; tender Palpation: tender (Pain is admitted abdomen with palpation of left lower quadrant, pain diffus) and rebound tenderness present Progress Note: Objective Labs Labs: Short CBC 04/19/24 Range/Units 05:32 WBC 2.3 L (4.0-11.0) 10^3/uL Hgb 6.9 L* (14.0-18.0) g/dL Hct 22.4 L* (42.0-54.0) % Plt Count 72 L (150-450) 10^3/uL BMP 04/19/24 05:32 Sodium 142 Potassium 3.8 Chloride 108 H Carbon Dioxide 22.3 BUN 28.0 H Creatinine 1.73 H Glucose 180 H Calcium 7.2 L Liver Function 04/19/24 Range/Units 05:32 Total Bilirubin 1.2 H (0.2-1.0) mg/dL AST 26 (15-37) U/L ALT 29 (16-63) U/L Alkaline Phosphatase 46 (46-116) U/L Albumin 2.0 L (3.4-5.0) g/dL Progress Note: A&P Assessment and Plan (1) Multiple myeloma: (2) SIRS (systemic inflammatory response syndrome): (3) Neutropenic fever: (4) Diabetes: Plan Admission findings: Fever to 103.2, sinus tachycardia, respiratory distress, hypotension despite 2 L of IV fluids with a MAP of 57, acute hypoxia, neutropenia, anemia, thrombocytopenia, hyponatremia, acute kidney injury, hyperglycemia, bandemia, positive urinalysis with hematuria and acute abdominal findings with lactic acidosis and elevated liver function test with coagulopathy secondary to acute diverticulitis resulting in severe sepsis with septic shock, hypotensive despite IV fluid resuscitation. Acute abdomen with acute diverticulitis and rebound tenderness with neutropenic sepsis with severe sepsis and bandemia, ANC on admission 0.5-maintain current antibiotics, patient is afebrile now, does have low-grade fever 100 overnight. Blood pressure little low overnight time as well but no need for bolus, blood pressure improved this morning. Repeat acute abdominal series Hematuria with possible acute UTI-culture pending, continue with antibiotics as outlined above Chemotherapy-induced anemia-as well as acute blood loss anemia likely from upper gastrointestinal bleeding versus diverticular bleeding-double dose the Protonix, transfuse 1 unit today. Premedicate with Benadryl, steroids, Tylenol. Neutropenic sepsis secondary to acute diverticulitis and complicated by his multiple myeloma treatment on chemotherapy Coagulopathy with elevated INR-elevated further from yesterday. 1 unit of FFP today. Thrombocytopenia secondary to chemotherapy for the multiple myeloma-worse today. Not enough to transfuse Acute kidney injury stage II (baseline creatinine of 1, up to 1.8 today, so 180% above baseline and decreased urine output with urine output of 0.14 cc/kg/hr) - creatinine some better than previous day. Maintain hydration Hyponatremia-continue to monitor Elevated liver function test with hyperbilirubinemia-improved this morning IDDM-insulin sliding scale, will cut back his long-acting dose in half with patient being n.p.o. Moderate protein calorie malnutrition-will diet manage this once he is taking oral intake again Multiple myeloma-will maintain current oral agents, Neupogen today. Admission status: Patient admitted with neutropenic sepsis with ANC of 51, bandemia, severe sepsis with septic shock, failing IV boluses, lactic acidosis secondary to acute abdomen secondary to acute diverticulitis, medically necessary treatment will span 2 midnights. Inpatient status. Working with bed coordinator through for the [facility] on transfer, multiple conversations so far this morning
[2024-04-19] MEDS: PIPERACILLIN SODIUM/TAZOBACTAM 3.375 GM in 0.9 % SODIUM CHLORIDE 50 ML IV ×2 (09:17→18:40)
[2024-04-19] MEDS: METHYLPREDNISOLONE SOD SUCC PF 40 MG/ML VIAL IVP (09:17)
[2024-04-19] MEDS: DIPHENHYDRAMINE HCL 25 MG CAPSULE PO (09:17)
[2024-04-19] MEDS: 0.9 % SODIUM CHLORIDE 250 ML 10 ML IV (09:17)
[2024-04-19] MEDS: ACETAMINOPHEN 325 MG TABLET 650 MG PO (09:17)
[2024-04-19] MEDS: FILGRASTIM 480 MCG/0.8 ML SYRINGE SUBQ (09:22)
[2024-04-19] MEDS: [UNRECOGNIZED DRUG - REMARK] 100 EACH PO (09:24)
[2024-04-19] MEDS: SODIUM CHLORIDE 0.9% IV (10:02)
[2024-04-19] MEDS: GENTAMICIN SULFATE IV (10:02)
--- NOTE | 2024-04-19 12:05 | P.DS_ITS ---
DS: Providers Provider Date of admission: 04/18/24 05:23 Primary care physician: ANDRES BEST Consults: 04/18/24 05:56 Consult to Pharmacy Routine Consulting Provider: Reason for consultation: Please [place] me when Med Rec is Updated Has provider been notified: No Occupational Therapy Eval and Treat Routine Reason for consultation: Only if needed for Rehab Has provider been notified: No Physical Therapy Eval and Treat Routine Reason for consultation: Eval and Treat Has provider been notified: No DS: Diagnosis Discharge Diagnosis (1) Multiple myeloma: (2) SIRS (systemic inflammatory response syndrome): (3) Neutropenic fever: (4) Diabetes: Plan Admission findings: Fever to 103.2, sinus tachycardia, respiratory distress, hypotension despite 2 L of IV fluids with a MAP of 57, acute hypoxia, neutropenia, anemia, thrombocytopenia, hyponatremia, acute kidney injury, hype rglycemia, bandemia, positive urinalysis with hematuria and acute abdominal findings with lactic acidosis and elevated liver function test with coagulopathy secondary to acute diverticulitis resulting in severe sepsis with septic shock, hypotensive despite IV fluid resuscitation. Acute abdomen with acute diverticulitis and rebound tenderness with neutropenic sepsis with severe sepsis and bandemia, ANC on admission 0.5-maintain current antibiotics, patient is afebrile now, does have low-grade fever 100 overnight. Blood pressure little low overnight time as well but no need for bolus, blood pressure improved this morning. Repeat acute abdominal series Hematuria with possible acute UTI-culture pending, continue with antibiotics as outlined above Chemotherapy-induced anemia-as well as acute blood loss anemia likely from upper gastrointestinal bleeding versus diverticular bleeding-double dose the Protonix, transfuse 1 unit today. Premedicate with Benadryl, steroids, Tylenol. Neutropenic sepsis secondary to acute diverticulitis and complicated by his multiple myeloma treatment on chemotherapy Coagulopathy with elevated INR-elevated further from yesterday. 1 unit of FFP today. Thrombocytopenia secondary to chemotherapy for the multiple myeloma-worse today. Not enough to transfuse Acute kidney injury stage II (baseline creatinine of 1, up to 1.8 today, so 180% above baseline and decreased urine output with urine output of 0.14 cc/kg/hr) - creatinine some better than previous day. Maintain hydration Hyponatremia-continue to monitor Elevated liver function test with hyperbilirubinemia-improved this morning IDDM-insulin sliding scale, will cut back his long-acting dose in half with patient being n.p.o. Moderate protein calorie malnutrition-will diet manage this once he is taking oral intake again Multiple myeloma-will maintain current oral agents, Neupogen today. Admission status: Patient admitted with neutropenic sepsis with ANC of 51, bandemia, severe sepsis with septic shock, failing IV boluses, lactic acidosis secondary to acute abdomen secondary to acute diverticulitis, medically necessary treatment will span 2 midnights. Inpatient status. Working with bed coordinator through for [facility] on transfer, multiple conversations so far this morning DS: Summary Hospital Course Hospital Course: Patient admitted with fever to 103.2, sinus tachycardia, respiratory distress, hypotension despite 2 L of IV fluids with a MAP of 57, acute hypoxia, neutropenia, anemia, thrombocytopenia, hyponatremia, acute kidney injury, hyperglycemia, bandemia, positive urinalysis with hematuria and acute abdominal findings with lactic acidosis and elevated liver function test with coagulopathy secondary to acute diverticulitis resulting in severe sepsis with septic shock, hypotensive despite IV fluid resuscitation. Started on broad-spectrum antibiotics. Blood cultures obtained on admission. Patient continued to have low-grade fevers and abdominal pain persisting. Including his rebound tenderness. Case was discussed multiple times with [facility] was able to arrange a bed for him at one of their off of main campus facilities. Currently he is stable but still seriously ill. Status at Discharge Overall status at discharge: patient is not back to baseline Time Spent with Patient Time attestation: Total time spent providing and/or coordinating discharge services: Time spent: greater than 30 minutes Exam Constitutional Vital Signs, click to edit/add: Last Vital Signs Temp 98.3 F 04/19/24 19:39 Pulse 62 04/19/24 20:00 Resp 18 04/19/24 19:39 BP 126/54 04/19/24 19:39 Pulse Ox 93 L 04/19/24 19:39 O2 Del Method Room Air 04/19/24 19:39 O2 Flow Rate 2 04/18/24 00:31 Documenting provider has reviewed patient's vital signs: yes Common normals: apparent distress (Mild painful distress with moving in bed) Respiratory Common normals: normal respiratory effort and no retractions Cardio Common normals: regular rate and regular rhythm GI Common normals: Normal to inspection, nondistended, normoactive bowel sounds present and soft to palpation; tender Palpation: tender (Pain is admitted abdomen with palpation of left lower quadrant, pain diffus) and rebound tenderness present Discharge Plan Discharge Disposition: [facility] Condition: Fair Assessment: IV in L and R arms in tact to keep fluids running in transport Discharge Date/Time: 04/19/24 20:34 Discharge location: [facility]
[2024-04-19] MEDS: INSULIN ASPART 300 UNIT/3 ML PEN SUBQ ×2 (13:28→18:40)
--- NOTE | 2024-04-19 20:32 | PC.NURSE ---
Patient getting picked up for transportation at this time to [facility]
== END 2024-04-19 20:34 | disposition short-term general hospital (02) | DRG 871 ==
LOC: ER 21:53 → ICU 23:28 → MS 04-18 05:43
PROVIDERS: Physician Assistant; Registered Nurse; Admitting Provider Family Medicine; Emergency Provider Emergency Medicine; PCP Family Medicine; Visit Provider Family Medicine
DX: A41.9 Sepsis, unspecified organism (principal); K57.31 Diverticulosis of large intestine without perforation or abscess with bleeding; R65.21 Severe sepsis with septic shock; N39.0 Urinary tract infection, site not specified; N17.9 Acute kidney failure, unspecified; C90.00 Multiple myeloma not having achieved remission; D62 Acute posthemorrhagic anemia; D68.9 Coagulation defect, unspecified; E87.1 Hypo-osmolality and hyponatremia; E44.0 Moderate protein-calorie malnutrition; E87.20 Acidosis, unspecified; Z68.41 Body mass index [BMI] 40.0-44.9, adult; D64.81 Anemia due to antineoplastic chemotherapy; D69.59 Other secondary thrombocytopenia; D70.9 Neutropenia, unspecified; E11.65 Type 2 diabetes mellitus with hyperglycemia; E80.6 Other disorders of bilirubin metabolism; R09.02 Hypoxemia; R31.9 Hematuria, unspecified; T45.1X5A Adverse effect of antineoplastic and immunosuppressive drugs, initial encounter; Z87.440 Personal history of urinary (tract) infections; Z79.4 Long term (current) use of insulin; Z79.899 Other long term (current) drug therapy; Z88.8 Allergy status to other drugs, medicaments and biological substances
CPT/HCPCS: 36415; 36430; 71045; 71275; 74022; 74177; 80053; 80170; 81001; 82800; 82948; 83605; 83880; 84484; 85007; 85025; 85027; 85610; 85730; 86850; 86900; 86901; 87040; 87070; 87420; 87804; 87811; 93005; 94667; 94668; 94761; 96361; 96365; 96366; 96367; 96372; 96375; 96376; 97161; 97165; 99285; G0328; G0378; J1171; J1442; J1580; J2405; J2543; J2919; J3010; P9016; P9017; Q9966

== ENCOUNTER 2024-05-11 13:54 | Emergency (ER) | payer OTHER, SELFPAY ==
[2024-05-11 13:55] VITALS: BP 148/65; PULSE 84; TEMP 36.7; O2SAT 98; BMI 35.3
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
[2024-05-11] MEDS: ACETAMINOPHEN 500 MG TABLET PO (15:14)
== END 2024-05-11 16:13 | disposition home or self-care (01) ==
PROVIDERS: Emergency Provider Emergency Medicine; PCP Family Medicine
DX: S13.4XXA Sprain of ligaments of cervical spine, initial encounter (principal); V49.49XA Driver injured in collision with other motor vehicles in traffic accident, initial encounter; M54.2 Cervicalgia
CPT/HCPCS: 70450; 72125; 99284

== ENCOUNTER 2024-08-02 00:47 | Emergency (ER) | payer BC, MEDICARE, SELFPAY ==
[2024-08-02] VITALS (44 sets, daily range): BP systolic 122–156; BP diastolic 52–71; PULSE 71–111; TEMP 36.8–37.4; O2SAT 92–99; BMI 34.6
--- OUTSIDE RECORDS SUMMARY | 2024-08-02 01:08 | XMS_ITS | CCD ---
Author Organization [facility] Inform ion Partnership [facility] Care Team Providers Care Magnetic Prospecting Operator Name Role Phone Raz ARIAS, Vimal Unavailable Haroon INSURANCE SALESMAN.Soha ZAMORANO Unavailable [phone] Martha JOHNSON, Arcelia Unavailable [phone] Walter DO, Sana Christina Primary Care Provider [phone] Ish Garay Unavailable Vimal Crandall MD Unavailable Haroon INSURANCE SALESMAN.Soha ZAMORANO Unavailable Martha JOHNSON, Arcelia Unavailable [phone] Walter DO, Sana Christina Primary Care Provider DO Walter Sana G Primary Care Provider [phone] Mayra [facility] Mena Cisneros Emergency Provider [phone] Fito Michael Unavailable Raz ARIAS, Vimal Unavailable [phone] Martha JOHNSON, Arcelia Unavailable Walter DO, Sana Christina Primary Care Provider BECKI Pascal A Attending Provider Vimal Crandall MD Unavailable Haroon INSURANCE SALESMAN.Soha ZAMORANO Unavailable Martha JOHNSON, Arcelia Unavailable [phone] Walter DO, Sana Christina Primary Care Provider DR GÓMEZ LOMELI Primary Care Unavailable MARKER ., DR HOBSON Admitting Unavailable MARKER ., DR HOBSON Attending Unavailable MARKER ., DR HOBSON Consulting Unavailable RUSSELL RIVERA Unavailable Bullimore, Mena E Admitting Unavailable Bullimore, Mena E Attending Unavailable Walter, Sana G Primary Care Unavailable Bullimore, Mena E Admitting Unavailable Bullimore, Mena E Attending Unavailable Walter, Sana G Primary Care Unavailable Surfield, Harlan Admitting Unavailable Surfield, Harlan Attending Unavailable Naida, Sana A Admitting Unavailable Naida, Sana A Attending Unavailable Naida, Sana A Admitting Unavailable Naida, Sana A Attending Unavailable Bullimore, Mena E Admitting Unavailable Bullimore, Mena E Attending Unavailable Walter, Sana G Primary Care Unavailable ALEJANDRA MADDOX Referring Unavailable WALTER, SANA CHRISTINA Primary Care Unavailable Walter DO, Sana Christina Primary Care Provider Gem Phillips Unavailable Martha JOHNSON, Arcelia Unavailable Letha Best Primary Care Provider [phone] Letha Best MD Primary Care Provider Letha Best Primary Care Provider DENIS ALMANZA Referring Unavailable WALTER, SANA CHRISTINA Primary Care Unavailable WALTER, SANA CHRISTINA Primary Care Unavailable DENIS LAMANZA Referring Unavailable WALTER, SANA CHRISTINA Primary Care Unavailable DENIS ALMANZA Referring Unavailable ALMASSI, KELSI A Attending Unavailable WALTER, SANA CHRISTINA Primary Care Unavailable LETHA BEST Primary Care Unavailable YAO, AMAR C Attending Unavailable YAO, AMAR C Admitting Unavailable Walter DO, Sana Christina Primary Care Provider Walter DO, Sana G Unavailable Orlin Lorenzana Attending Unavail able LETHA BEST Primary Care Unavailable Orlin Lorenzana Admitting Unavail able Orlin Lorenzana Attending Unavail able LETHA BEST Primary Care Unavailable Kevin Vázquez Consulting Unavailable Salomón, Orlin Eason Admitting Unavail able Salomón, Orlin Eason Attending Unavail able NASIRLETHA GARCIA Primary Care Unavailable Kevin Vázquez Consulting Unavailable Salomón, Orlin Eason Admitting Unavail able Salomón, Orlin Eason Attending Unavail able Salomón, Orlin Eason Admitting Unavail able NASIRLETHA RIOJAS G Primary Care Unavailable Keisha Lara Unavailable Unavailable Walter Sana Unavailable KASHMIR LUA Attending Unavailable LETHA BEST Referring Unavailable FIDELINA NEIL Attending Unavailable LETHA BEST Referring Unavailable MIGUEL ANGEL LORA Attending Unavailable FIDELINA NEIL Attending Unavailable NASIRLETHA Referring Unavailable FIDELINA NEIL Attending Unavailable NASIRLETHA GARCIA Referring Unavailable FIDELINA NEIL Attending Unavailable LETHA BEST Referring Unavailable FIDELINA NEIL Attending Unavailable LETHA BEST Referring Unavailable KAY TORRES Attending Unavailable LETHA BEST Referring Unavailable FIDELINA NEIL Attending Unavailable NASIRLETHA GARCIA Referring Unavailable KAY TORRES Attending Unavailable LETHA BEST Referring Unavailable KAY TORRES Attending Unavailable LETHA BEST Referring Unavailable APLJORGE MENCHACA Attending Unavailable APLINGJORGE Attending Unavailable WILBER ARANGO Attending Unavailable APLINGJORGE Referring Unavailable WILBER ARANGO Attending Unavailable APLINGJORGE Referring Unavailable LETHA BEST Attending Unavailable LETHA BEST Attending Unavailable NASIRLETHA GARCIA Referring Unavailable ORLIN LORENZANA Attending Unavailable SALOMÓNORLIN Referring Unavailable SALOMÓNORLIN Referring Unavailable SALOMÓNORLIN MURCIA Attending Unavailable LEHTA BEST Attending Unavailable MIGUEL ANGEL LORA Attending Unavailable TAYA ALEXANDER Attending Unavailable TAYA ALEXANDER Attending Unavailable LETHA BEST Attending Unavailable LETHA BEST Attending Unavailable LETHA BEST Primary Care Unavailable DINH MONTEMAYOR Admitting Unavailable JAZMYN LEWIS Attending Unavailable THIERRY CASTELLANO Consulting Unavailable LETHA BEST Primary Care Unavailable PARKER URBAN Attending Unavailable WIL PERKINS Referring Unavailable LETHA BEST Primary Care Unavailable FEDERICO EUGENE Admitting Unavailable SEAN PARK Attending Unavailable GELA HODGES Unavailable ABHYANKAR, VIMAL Referring Unavailable LETHA BEST G Primary Care Unavailable SOHA NUNN Referring Unavailable LETHA BEST Primary Care Unavailable SOHA NUNN Attending Unavailable LETHA BEST Primary Care Unavailable ABHYANKAR, VIMAL Referring Unavailable LETHA BEST G Primary Care Unavailable MIGUEL ANGEL LORA Referring Unavailable LETHA BEST G Primary Care Unavailable ABHYANKAR, VIMAL Referring Unavailable ABHYANKAR, VIMAL Attending Unavailable ABHYAYDENAR, VIMAL Referring Unavailable LETHA BEST G Primary Care Unavailable ABHYANKAR, VIMAL Referring Unavailable LETHA BEST G Primary Care Unavailable LETHA BEST G Primary Care Unavailable MIGUEL ANGEL LORA Referring Unavailable LETHA BEST G Primary Care Unavailable LETHA BEST G Primary Care Unavailable ABHYANKAR, VIMAL Referring Unavailable LETHA BEST G Primary Care Unavailable ABHYANKAR, VIMAL Referring Unavailable ABHYAYDENAR, VIMAL Attending Unavailable LETHA BEST G Primary Care Unavailable SOHA NUNN Attending Unavailable ABHYANKAR, VIMAL Referring Unavailable LETHA BEST G Primary Care Unavailable ABHYANKAR, VIMAL Referring Unavailable LETHA BEST G Primary Care Unavailable ABHYANKAR, VIMAL Referring Unavailable LETHA BEST G Primary Care Unavailable ABHYANKAR, VIMAL Referring Unavailable LETHA BEST G Primary Care Unavailable LETHA BEST G Primary Care Unavailable ABHYANKAR, VIMAL Referring Unavailable LETHA BEST G Primary Care Unavailable NASIR, LETHA G Primary Care Unavailable ABHYANKAR, VIMAL Referring Unavailable ABHYANKAR, VIMAL Referring Unavailable LETHA BEST G Primary Care Unavailable NASIR, LETHA G Primary Care Unavailable ABHYANKAR, VIMAL Referring Unavailable SOHA NUNN Referring Unavailable LETHA BEST Primary Care Unavailable OSVALDO MOREIRA Attending Unavailab le ABHYANKAR, VIMAL Referring Unavailable LETHA BEST G Primary Care Unavailable ABHYANKAR, VIMAL Referring Unavailable LETHA BEST Primary Care Unavailable LETHA BEST G Primary Care Unavailable ABHYANKAR, VIMAL Attending Unavailable LETHA BEST G Primary Care Unavailable NASIR, LETHA G Primary Care Unavailable LORENA BLACKWELL Attending Unavailable ABHYANKAR, VIMAL Referring Unavailable LETHA BEST G Primary Care Unavailable MIGUEL ANGEL LORA F. Referring Unavailable LETHA BEST G Primary Care Unavailable MIGUEL ANGEL LORA F. Referring Unavailable LETHA BEST G Primary Care Unavailable NASIR, LETHA G Primary Care Unavailable NASIR, LETHA G Primary Care Unavailable ABHYANKAR, VIMAL Referring Unavailable LETHA BEST G Primary Care Unavailable ABHYANKAR, VIMAL Referring Unavailable ABHYANKAR, VIMAL Referring Unavailable LETHA BEST G Primary Care Unavailable LORENA BLACKWELL Attending Unavailable LETHA BEST G Primary Care Unavailable ABHYANKAR, VIMAL Referring Unavailable LETHA BEST G Primary Care Unavailable BETZY, MIGUEL ANGEL F. Referring Unavailable ABHYANKAR, VIMAL Referring Unavailable LETHA BEST G Primary Care Unavailable ABHYANKAR, VIMAL Referring Unavailable LETHA BEST G Primary Care Unavailable ABHYANKAR, VIMAL Referring Unavailable LETHA BEST G Primary Care Unavailable ABHYANKAR, VIMAL Referring Unavailable LETHA BEST G Primary Care Unavailable ABHYANKAR, VIMAL Attending Unavailable ABHYANKAR, VIMAL Referring Unavailable LETHA BEST G Primary Care Unavailable LETHA BEST G Primary Care Unavailable JAZMYN LEWIS Referring Unavailable LETHA BEST G Primary Care Unavailable BLAKE INGRAM Attending Unavailable LETHA BEST G Primary Care Unavailable NASIR, LETHA G Primary Care Unavailable LETHA BEST G Primary Care Unavailable ABHYANKAR, VIMAL Attending Unavailable LETHA BEST G Primary Care Unavailable LETHA BEST G Primary Care Unavailable ABHYANKAR, VIMAL Referring Unavailable ABHYANKAR, VIMAL Referring Unavailable LETHA BEST G Primary Care Unavailable ABHYANKAR, VIMAL Referring Unavailable LETHA BEST Primary Care Unavailable ABHYANKAR, VIMAL Referring Unavailable LETHA BEST Primary Care Unavailable ABYUVALAR, VIMAL Referring Unavailable LETHA BEST Primary Care Unavailable LETHA BEST Primary Care Unavailable LETHA BEST Primary Care Unavailable LETHA BEST Primary Care Unavailable KELSI STEVENS Attending Unavailable LETHA BEST Primary Care Unavailable ABHYAYDENAR, VIMAL Attending Unavailable LETHA BEST Primary Care Unavailable LETHA BEST Primary Care Unavailable ABYUVALAR, VIMAL Attending Unavailable LETHA BEST Primary Care Unavailable LETHA BEST Primary Care Unavailable ABYUVALAR, VIMAL Attending Unavailable LETHA BEST Primary Care Unavailable LETHA BEST Primary Care Unavailable ABYUVALAR, VIMAL Referring Unavailable LETHA BEST Primary Care Unavailable ABYUVALAR, VIMAL Attending Unavailable LETHA BEST Primary Care Unavailable LETHA BEST Primary Care Unavailable LETHA BEST Primary Care Unavailable LETHA BEST Primary Care Unavailable LETHA BEST Primary Care Unavailable ABHYAYDENAR, VIMAL Referring Unavailable LETHA BEST Primary Care Unavailable LETHA BEST Primary Care Unavailable LETHA BEST Primary Care Unavailable LETHA BEST Primary Care Unavailable ABYUVALAR, VIMAL Attending Unavailable LETHA BEST Primary Care Unavailable LETHA BEST Primary Care Unavailable ABHYANKAR, VIMAL Referring Unavailable LETHA BEST Primary Care Unavailable ABHYAYDENAR, VIMAL Attending Unavailable ABYUVALAR, VIMAL Referring Unavailable LETHA BEST Primary Care Unavailable SOHA NUNN Attending Unavailable ABYUVALAR, VIMAL Referring Unavailable LETHA BEST Primary Care Unavailable LETHA BEST Primary Care Unavailable SOHA NUNN Attending Unavailable RAZ, VIMAL Referring Unavailable SOHA NUNN Referring Unavailable LETHA BEST Primary Care Unavailable SOHA NUNN Referring Unavailable ABQUINTIN, VIMAL Attending Unavailable LETHA BEST Primary Care Unavailable LETHA BEST Primary Care Unavailable ABHYANKAR, VIMAL Referring Unavailable ABHYANKAR, VIMAL Attending Unavailable LETHA BEST Primary Care Unavailable ABHYANKAR, VIMAL Referring Unavailable LETHA BEST Primary Care Unavailable ABHYANKAR, VIMAL Referring Unavailable LETHA BEST Primary Care Unavailable ABHYANKAR, VIMAL Referring Unavailable NASIR, LETHA Jefferson Primary Care Unavailable ABHYANKAR, VIMAL Referring Unavailable NASIR, LETHA Jefferson Primary Care Unavailable ABHYANKAR, VIMAL Referring Unavailable NASIR, LETHA Jefferson Primary Care Unavailable ABHYANKAR, VIMAL Referring Unavailable NASIR, LETHA Jefferson Primary Care Unavailable ABHYANKAR, VIMAL Referring Unavailable NASIR, LETHA Jefferson Primary Care Unavailable ABHYANKAR, VIMAL Referring Unavailable LETHA BEST Primary Care Unavailable ABHYANKAR, VIMAL Referring Unavailable LETHA BEST Primary Care Unavailable ABHYANKAR, VIMAL Referring Unavailable ABHYANKAR, VIMAL Attending Unavailable LETHA BEST Primary Care Unavailable ABHYANKAR, VIMAL Referring Unavailable ABHYANKAR, VIMAL Attending Unavailable LETHA BEST Primary Care Unavailable NASIR, LETHA Jefferson Primary Care Unavailable OSVALDO MOREIRA Attending Unavailab le LETHA BEST Primary Care Unavailable OSVALDO MOREIRA Referring Unavailab le LETHA BEST Primary Care Unavailable ABHYANKAR, VIMAL Referring Unavailable ABYUVALAR, VIMAL Referring Unavailable LETHA BEST Primary Care Unavailable SOHA NUNN Referring Unavailable LETHA BEST Primary Care Unavailable LETHA BEST Primary Care Unavailable SOHA NUNN Referring Unavailable LETHA EBST Primary Care Unavailable SOHA NUNN Referring Unavailable Allergies Allergy Classification Reported Allergen(s) Allergy Type Date of Onset Reaction(s) Facility (20 sources) Oseltamivir; 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: [OSELTAMIVIR] Drug Allergy 2 Other: See Comments, Vomiting [facility] (20 sources) Sulfamethoxazole / Trimethoprim Drug Allergy 3 GI Upset, Unknown, GI intolerance [facility] (20 sources) Amoxicillin / Clavulanate; 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: [AMOXICILLIN-POT CLAVULANATE] Drug Allergy 3 Diarrhea [facility] (20 sources) Oseltamivir Drug Allergy 3 GI intolerance [facility] (4 sources) Sulfamethoxazole / Trimethoprim; 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: [SULFAMETHOXAZOLE-TR IMETHOPRIM] Drug Allergy 3 [facility] Other [place] [facility] (1 source) Amoxicillin / Clavulanate; 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: [amoxicillin-clavula evan] Drug Allergy [facility] Repository (1 source) Oseltamivir; 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: [Tamiflu] Drug Allergy [facility] Repository (5 sources) diphenhydrAMINE; 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: [DIPHENHYDRAMINE] Drug Allergy 4 Other: See Comments [facility] Medications Current Medications Medication Drug Class(es) Dates Sig (Normalized) Sig (Original) acetaminophen 325 mg / HYDROcodone bitartrate 5 mg oral tablet (20 sources) Opioid Agonist Start: 05-11-2024 take 1 tablet by mouth every four hours as needed HYDROcodone-aceta minophen ([facility]) 5-325 MG tablet Take 1 tablet by mouth every 4 (four) hours if needed 05/11/2024 Active Start: 02-04-2024 End: 02-07-2024 take 1 tablet by mouth every six hours for pain HYDROcodone-acetaminophen ([facility]) 5-325 MG tablet Indications: Post-op pain Take 1 tablet by mouth every 6 (six) hours if needed for severe pain for up to 3 days 12 tablet 02/04/2024 02/07/2024 Active acetaminophen 325 mg / oxyCODONE hydrochloride 5 mg oral tablet (20 sources) Opioid Agonist Start: 03-14-2024 End: 04-13-2024 take 1 tablet by mouth every eight hours as needed for pain oxyCODONE-acetaminophen (Percocet) 5-325 MG tablet Take 1 tablet by mouth every 8 hours as needed for pain for up to 30 days. 03/14/2024 Active acyclovir 400 mg oral tablet (20 sources) Herpesvirus Nucleoside Analog DNA Polymerase Inhibitor, Herpes Simplex Virus Nucleoside Analog DNA Polymerase Inhibitor, Herpes Zoster Virus Nucleoside Analog DNA Polymerase Inhibitor Start: 06-18-2024 End: 09-16-2024 take 1 tablet by mouth twice daily in the evening acyclovir (ZOVIRAX) 400 mg tablet Indications: Multiple myeloma not having achieved remission (HCC) Take 1 tablet by mouth two times a day. 60 tablet 2 08/01/2024 2:24 PM EDT 06/18/2024 09/16/2024 Active take 1 tablet by mouth every twe lve hours allopurinol 100 mg oral tablet (20 sources) Xanthine Oxidase Inhibitor Start: 06-28-2024 End: 09-30-2024 take 1 tablet by mouth once daily allopurinol (ZYLOPRIM) 100 mg tablet Take 1 tablet by mouth once daily. 90 tablet 07/02/2024 10:17 AM EST 06/28/2024 09/30/2024 Active Start: 12-30-2023 End: 06-20-2024 take 1 tablet by mouth once daily in the evening allopurinol (ZYLOPRIM) 100 mg tablet Take 1 tablet by mouth once daily. 90 tablet 03/22/2024 1:30 PM EST 03/19/2024 06/20/2024 Active ALPRAZolam 0.5 mg oral tablet (20 sources) Benzodiazepine Start: 03-23-2023 End: 01-06-2024 take 1 tablet by mouth three times daily as needed for anxiety ALPRAZolam (Xanax) 0.5 MG tablet Take 0.5 mg by mouth 3 (three) times a day as needed for anxiety 03/23/2023 Active Start: 09-29-2022 End: 10-08-2022 ALPRAZolam (XANAX) 0.5 mg ta blet Indications: Liver mass , Anxiety neurosis , Claustrophobia Take 1 tablet by mouth as needed for up to 4 doses. 4 tablet 0 09/29/2022 10/08/2022 Active Comment on above: Take 1 tablet by kiley th as needed for up to 4 doses. Take 1 tablet by kiley th three times a day as needed for anxiety (claustrophobia) for up to 90 days. amoxicillin 875 mg / clavulanate 125 mg oral tablet (9 sources) Penicillin-class Antibacterial Start: End: take 1 tablet by mouth every twelve hours in the evening amoxicillin-clavul anate potassium (AUGMENTIN) 875-125 mg per tablet Take 1 tablet by mouth every 12 hours for 14 days. 28 tablet 07/30/2024 2:59 PM EDT 07/30/2024 08/13/2024 Active Start: 07-16-2024 End: 07-18-2024 take 1 tablet by mouth every twelve hours amoxicillin-clavulanate potassium (AUGMENTIN) 875-125 mg per tablet Take 1 tablet by mouth every 12 hours for 2 days. 4 tablet 07/16/2024 07/18/2024 Start: 10-23-2021 End: 11-06-2021 take 1 tablet by mouth twice daily amoxicillin-clavulanic acid (AUGMENTIN) 875-125 mg per tablet Take 1 tablet by mouth twice daily for 14 days. 28 tablet 0 10/23/2021 11/06/2021 Active Comment on above: Take 1 tablet by kiley th twice daily for 14 days. atorvastatin 10 mg oral tablet (20 sources) HMG-CoA Reductase Inhibitor Start: End: take 1 tablet by mouth once daily atorvastatin (LIPITOR) 10 mg tablet Take 10 mg by mouth once daily. 08/28/2018 Active Lipitor Active Comment on above: Take 10 mg by mouth once daily. atropine sulfate 0.025 mg / diphenoxylate hydrochloride 2.5 mg oral tablet (20 sources) Anticholinergic, Cholinergic Muscarinic Antagonist, Antidiarrheal Start: 05-14-2024 diphenoxylate-atro pine (Lomotil) 2.5-0.025 MG tablet 05/14/2024 Active Start: 10-14-2023 End: 11-13-2023 take 1 tablet by mouth four times daily as needed for diarrhea diphenoxylate-atropine (LOMOTIL) 2.5-0.025 mg per tablet Indications: Diarrhea, unspecified type , Multiple myeloma not having achieved remission (HCC) , 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HCC) , Renal insufficiency Take 1 tablet by mouth four times a day as needed for diarrhea for up to 30 days. 60 tablet 1 10/14/2023 Active Start: 07-23-2021 End: 12-06-2021 take 1 tablet by mouth once daily Diphenoxylate-Atropine (Lomotil) 2.5-0.025 mg Tablet Discontinued 1 TAB PO Daily July 22, 2021 11:00pm December 06, 2021 9:56am Start: 06-05-2021 End: 02-19-2022 take 1 tablet by mouth four times daily as needed for diarrhea diphenoxylate-atropine (LOMOTIL) 2.5-0.025 mg per tablet Indications: Diarrhea, unspecified type , Multiple myeloma not having achieved remission (HCC) , 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HCC) , Renal insufficiency Take 1 tablet by mouth four times daily as needed for diarrhea for up to 15 days. 60 tablet 1 06/05/2021 02/19/2022 Discontinued (Discontinued by Patient) Lomotil Active Comment on above: Take 1 tablet by kiley four times daily as needed for diarrhea for up to 15 days. Blood-Glucose Sensor (DEXCOM G7 SENSOR) [facility] (20 sources) Blood-Glucose Se nsor (DEXCOM G7 SENSOR) liana as directed. Suspended Blood-Glucose Se nsor (DEXCOM G7 SENSOR) liana as directed. Active Blood-Glucose Se nsor (DEXCOM G7 SENSOR) liana as directed. 0 Active Comment on above: as directed. Cannabinoids (THC Free) 20 M G/ML liquid (20 sources) Cannabinoids (TH C Free) 20 MG/ML liquid as directed Orally Active Cannabinoids (TH C Free) 20 MG/ML liquid as directed Orally 0 Active cefdinir 300 mg oral capsule (9 sources) Cephalosporin Antibacterial Start: 04-25-2024 End: 05-05-2024 take 1 capsule by mouth twice daily cefdinir (OMNICEF) 300 mg capsule Take 1 capsule by mouth two times a day for 10 days. Patient should start on April 25, 2024. 20 capsule 04/25/2024 05/05/2024 Active cetirizine hydrochloride 10 mg oral tablet (20 sources) Histamine-1 Receptor Antagonist Start: 07-23-2021 take 10 mg by mouth once daily Cetirizine Active 10 MG PO Daily July 22, 2021 11:00pm Cetirizine HCl A ctive Comment on above: Take 10 mg by mouth once daily. cholecalciferol 0.025 mg oral capsule (20 sources) Vitamin D Start: take 2 capsules by mouth once daily Cholecalciferol, Vitamin D3, (VITAMIN D) 25 mcg (1,000 unit) cap Take 2 capsules by mouth once daily. 08/20/2020 Active take 1 capsule by mouth once matilda ly Cholecalciferol 25 MCG (1000 UT) 1 capsule Orally Once a day Active Comment on above: Take 2 capsules by m outh once daily. ciprofloxacin 500 mg oral tablet (20 sources) Quinolone Antimicrobial Start: 07-31-19 End: 08-14-19 take 1 tablet by mouth twice daily in the evening ciprofloxacin HCl (CIPRO) 500 mg tablet Take 1 tablet by mouth two times a day for 14 days. 28 tablet 07/30/2024 2:59 PM EDT 07/30/2024 08/13/2024 Active Start: 07-17-2024 End: 07-19-2024 take 1 tablet by mouth every twelve hours in the morning, then take 6 tablets by mouth in the evening ciprofloxacin HCl (CIPRO) 500 mg tablet Take 1 tablet by mouth every 12 hours at 6 am and 6 pm for 2 days. 4 tablet 07/17/2024 07/19/2024 Start: 01-21-2021 End: 12-04-2021 take 500 mg by mouth twice daily Ciprofloxacin Hcl Discontinued 500 MG PO Twice daily July 22, 2021 11:00pm December 04, 2021 10:35am Ciloxan 0.3 % 1 application into the lower eyelid of affected eye Ophthalmic Twice a day for 5 days Active Cipro Active Continuous Blood Gluc Sensor (Dexcom G7 Sensor[place] [facility] [place] Start: 05-18-2023 End: 08-26-2023 Continuous Blood Gluc Sensor (Dexcom G7 Sensor) [facility] [place] Indications: Type 2 diabetes mellitus with hyperglycemia, with long-term current use of insulin ([facility]) Inject 1 Device under the skin Every 10 (ten) days 10 each 3 05/18/2023 08/26/2023 Active dapagliflozin 10 mg oral tablet (20 sources) Sodium-Glucose Cotransporter 2 Inhibitor Start: 07-23-2021 End: 10-13-2022 take 1 tablet by mouth once daily Dapagliflozin (Farxiga) 10 mg Tablet Active 10 MG PO Daily July 22, 2021 11:00pm FARXIGA Active Comment on above: Take 10 mg by mouth daily with breakfast. dexamethasone 4 mg oral tablet (20 sources) Corticosteroid Start: 06-22-19 take 5 tablets by mouth every week in the morning dexAMETHasone (DECADRON) 4 mg tablet Take 5 tablets by mouth one time a week. 60 tablet 1 06/26/2024 9:12 AM EST 06/22/2024 Active Start: 06-17-2020 End: 07-23-2021 Dexamethasone Discontinued T ABLET June 17, 2020 12:00am July 23, 2021 6:35am 0.5 ml dulaglutide 3 mg/ml auto-injector (20 sources) GLP-1 Receptor Agonist Start: 11-03-2023 End: 04-09-2024 inject 1.5 mg by subcutaneous injection every week Trulicity 1.5 MG/0.5ML solution auto-injector Indications: Type 2 diabetes mellitus with hyperglycemia (CMS/HCC) INJECT 1.5 mg SUBCUTANEOUSLY ONCE A WEEK 6 mL 1 04/09/2024 Active Start: 07-12-2023 End: 01-24-2024 inject 0.75 mg by subcutaneous injection every week Trulicity 0.75 MG/0.5ML solution pen-injector INJECT 0.75mg SUBCUTANEOUSLY weekly 07/12/2023 01/24/2024 Discontinued (Therapy completed) erythromycin 0.005 mg/mg ophthalmic ointment (1 source) Macrolide, Macrolide Antimicrobial Start: 10-31-2022 Erythromycin 5 MG/GM 1 application into the lower eyelid of affected eye left eye 2-3 times per day for 7 days Oct, Active escitalopram 10 mg oral tablet (20 sources) Serotonin Reuptake Inhibitor Start: 12-06-2021 take 10 mg by mouth once daily Escitalopram Oxalate Active 10 MG PO Daily December 05, 2021 11:00pm Start: 12-06-2021 take 10 mg by mouth once daily Escitalopram Oxalate Active 10 MG PO Daily December 06, 2021 12:00am Start: 08-20-2020 End: 02-15-2023 take 1 tablet by mouth once daily escitalopram oxalate (LEXAPRO) 10 mg tablet Take 1 tablet by mouth once daily. 08/20/2020 02/15/2023 Discontinued Lexapro Active Comment on above: Take 1 tablet by kiley th once daily. fluticasone propionate 0.05 mg/actuat metered dose nasal spray (20 sources) Corticosteroid Start: 4 End: 09-11-202 4 take 1 spray(s) nasal route once daily fluticasone (Flonase) 50 MCG/ACT nasal spray Indications: Chronic frontal sinusitis Administer 1 spray into each nostril Daily 48 g 1 01/18/2024 Active take 1 spray(s) nasa l route in the morning fluticasone (Flonase) 50 MCG/ACT nasal spray Administer 1 spray into each nostril in the morning. Active gabapentin 100 mg oral capsule (20 sources) Anti-epileptic Agent Start: 11-28-2023 End: 08-15-2024 take 1 capsule by mouth three times daily gabapentin (NEURONTIN) 100 mg capsule Take 1 capsule by mouth three times a day for 30 days. 90 capsule 07/16/2024 08/15/2024 Active Start: 09-28-2020 End: 09-29-2023 take 1 capsule by mouth once daily at bedtime gabapentin (NEURONTIN) 100 mg capsule Take 1 capsule by mouth daily at bedtime for 30 days. 09/28/2020 Suspended take 1 capsule by mo ut every eight hours Neurontin 100 MG 1 capsule Orally tid Active Neurontin Active Comment on above: Take 1 capsule by mo uth daily at bedtime for 30 days. glipiZIDE 10 mg oral tablet (20 sources) Sulfonylurea Start: 06-17-2020 take 10 mg by mouth twice daily Glipizide Active 10 MG PO Twice daily June 17, 2020 12:00am End: 10-13-2022 take 1 tablet by mouth once daily glipiZIDE 10 mg tablet Take 10 mg by mouth once daily. 0 10/13/2022 Discontinued Glucotrol Active Comment on above: Take 10 mg by mouth once daily. 3 ml insulin aspart, human 100 unt/ml pen injector (20 sources) Insulin Analog Start: 12-13-2022 insulin aspart (NovoLOG FLEXPEN) 100 UNIT/ML pen Indications: Type 2 diabetes mellitus with hyperglycemia, with long-term current use of insulin ([facility]) Inject 10 Units under the skin in the morning and 10 Units at noon and 10 Units in the evening. Inject with meals. 10 mL 3 12/13/2022 Active Start: 10-13-2022 insulin aspart U-100 (NOVOLOG FLEXPEN U-100 INSULIN) 100 unit/mL (3 mL) If Blood Glucose (mg/dL) is 111-150 Give 0 units 151-200 Give 2 unit 201-250 Give 4 units 251-300 Give 6 units 301-350 Give 8 units 351-400 Give 10 units >400 Call physician. 15 mL 2 10/13/2022 5:24 PM EDT 10/13/2022 Active NovoLOG FlexPen 100 UNIT/ML as directed Subcutaneous Active NovoLOG 100 UNIT /ML as directed Injection Active Comment on above: If Blood Glucose (mg /dL) is <110 Give 0 units 111-150 Give 0 units 151-200 Give 2 unit 201-250 Give 4 units 251-300 Give 6 units 301-350 Give 8 units 351-400 Give 10 units >400 Call physician. 3 ml insulin glargine 100 unt/ml pen injector (20 sources) Insulin Analog Start: 04-24-2024 End: 07-23-2024 BASAGLAR KWIKPEN U-100 INSULIN 100 unit/mL (3 mL) Inject 52 Units subcutaneously every morning. 46.8 mL 04/24/2024 Active Start: 05-18-2023 End: 05-12-2024 insulin glargine (Basaglar KwikPen) 100 UNIT/ML pen Indications: Type 2 diabetes mellitus with hyperglycemia, with long-term current use of insulin ([facility]) Inject 45 Units under the skin at bedtime 14 each 10/07/2023 Active Start: 02-01-2022 End: 04-24-2024 BASAGLAR KWIKPEN U-100 INSUL IN 100 unit/mL (3 mL) Inject 30 Units subcutaneously every morning. 15 mL 2 10/13/2022 04/24/2024 Discontinued Start: 02-01-2022 inject 10 [IU] by gonzalez bcutaneous injection once daily BASAGLAR KWIKPEN U-100 INSULIN 100 unit/mL (3 mL) INJECT TEN UNITS SUBCUTANEOUSLY ONCE DAILY 0 02/01/2022 Active Start: 01-02-2022 Insulin Glargi ne (Basaglar Kwikpen U-100 Insulin) 100 unit/mL (3 mL) Insulin Pen Active 20 UNIT SUBCUT Every evening January 01, 2022 11:00pm Start: 01-02-2022 Insulin Glargi ne (Basaglar Kwikpen U-100 Insulin) 100 unit/mL (3 mL) Insulin Pen Active 20 UNIT SUBCUT Every evening January 02, 2022 12:00am Start: 01-02-2022 Insulin Glargi ne (Basaglar Kwikpen U-100 Insulin) 100 unit/mL (3 mL) Insulin Pen Active 20 UNIT SUBCUT Every evening January 02, 2022 12:00am Start: 06-17-2020 End: 07-23-2021 Insulin Glargine (Basaglar K briankpen U-100 Insulin) 100 unit/mL (3 mL) insulin pen Discontinued SUBCUT June 17, 2020 12:00am July 23, 2021 6:47am Comment on above: INJECT TEN UNITS SUB CUTANEOUSLY ONCE DAILY Inject 30 Units subc utaneously daily at bedtime. Inject 30 Units subc utaneously every morning. 0.5 unt doses 3 ml insulin lispro 100 unt/ml pen injector (3 sources) Insulin Analog Start: 12-11-2022 End: 12-11-2023 insulin lispro (HumaLOG James KwikPen) 100 UNIT/ML pen Indications: Type 2 Diabetes Mellitus Inject 8 Units under the skin in the morning and 8 Units at noon and 8 Units in the evening. Inject with meals. Inject under the skin 3 times a day with meals. Injects 2 units if blood sugar is 151-200, 4 units bs 201-250, 6 units if bs 251-300, 8 units if bs greater than 301. Maximum daily dose is 24 units.. 21.6 mL 3 12/11/2022 12/11/2023 Active insulin lispro (HumaLOG) 100 UNIT/ML injection (3 sources) Start: 10-05-2022 insulin lispro (HumaLOG) 100 UNIT/ML injection Indications: Type 2 diabetes mellitus with hyperglycemia, with long-term current use of insulin ([facility]) Inject under the skin 3 times a day with meals. Injects 2 units if blood sugar is 151-200, 4 units bs 201-250, 6 units if bs 251-300, 8 units if bs greater than 301. 10 mL 12 10/05/2022 Active L gasseri/B bifidum/B longum (PROBIOTIC COLON CARE ORAL) (20 sources) L gasseri/B bifi dum/B longum (PROBIOTIC COLON CARE ORAL) Take by mouth once daily as needed. Suspended L gasseri/B bifi dum/B longum (PROBIOTIC COLON CARE ORAL) Take by mouth once daily as needed. Active L gasseri/B bifi dum/B longum (PROBIOTIC COLON CARE ORAL) Take by mouth. Active L gasseri/B bifi dum/B longum (PROBIOTIC COLON CARE ORAL) Take by mouth. 0 Active Comment on above: Take by mouth. 3 ml liraglutide 6 mg/ml pen injector (20 sources) GLP-1 Receptor Agonist Start: 01-02-2022 Liraglutide (Victoza 2-Regulo) 0.6 mg/0.1 mL (18 mg/3 mL) pen injector Active MG SUBCUT January 01, 2022 11:00pm Start: 01-02-2022 Liraglutide (V ictoza 2-Regulo) 0.6 mg/0.1 mL (18 mg/3 mL) pen injector Active MG SUBCUT January 02, 2022 12:00am Start: 01-02-2022 Liraglutide (V ictoza 2-Regulo) 0.6 mg/0.1 mL (18 mg/3 mL) pen injector Active MG SUBCUT January 02, 2022 12:00am Start: 09-01-2021 End: 10-13-2022 VICTOZA 2-REGULO 0.6 mg/0.1 mL (18 mg/3 mL) Inject 1.8 mg subcutaneously once daily. 0 09/01/2021 10/13/2022 Discontinued Start: 09-01-2021 VICTOZA 2-REGULO 0.6 mg/0.1 mL (18 mg/3 mL) INJECT 0.2 ml (1.2mg) SUBCUTANEOUSLY ONCE DAILY 0 09/01/2021 Active Start: 06-17-2020 End: 07-23-2021 Liraglutide (Victoza 3-Regulo) 0.6 mg/0.1 mL (18 mg/3 mL) pen injector Discontinued MG SUBCUT June 17, 2020 12:00am July 23, 2021 6:37am Victoza 18mg/3ml injection as directed Active Comment on above: INJECT 0.2 ml (1.2mg ) SUBCUTANEOUSLY ONCE DAILY Inject 1.8 mg subcut aneously. Inject 1.8 mg subcut aneously once daily. LORazepam 1 mg oral tablet (4 sources) Benzodiazepine Start: 4 End: 4 take 1 tablet by mouth once daily LORazepam (ATIVAN) 1 mg tablet Indications: Restless leg Take 1 tablet by mouth once daily for 1 day. 1 tablet 03/27/2024 03/28/2024 Active melatonin 5 mg oral tablet (20 sources) take 5 mg by mouth every twenty-four hours as needed MELATONIN ORAL Take 5 mg by mouth at bedtime as needed. Active MELATONIN ORAL T sandra by mouth at bedtime as needed. Active MELATONIN ORAL T sandra by mouth. Active MELATONIN ORAL T sandra by mouth. 0 Active Comment on above: Take by mouth. methocarbamol 500 mg oral tablet (20 sources) Muscle Relaxant Start: 05-11-19 take 1 tablet by mouth every eight hours as needed methocarbamol (Robaxin) 500 MG tablet Take 500 mg by mouth every 8 (eight) hours if needed 05/11/2024 Active 24 hr metoprolol succinate 25 mg extended release oral tablet (15 sources) beta-Adrenergic Quintin Start: 07-18-19 End: 07-27-19 take 0.5 tablet by mouth once daily metoprolol succinate ER (TOPROL XL) 25 mg 24 hr tablet Take 0.5 tablets by mouth once daily. metoprolol 12.5mg XL with the onset of heart rate is greater than 110 15 tablet 07/26/2024 Active metroNIDAZOLE 500 mg oral tablet (9 sources) Nitroimidazole Antimicrobial Start: 04-24-20 End: 05-06-20 take 1 tablet by mouth three times daily metroNIDAZOLE (FLAGYL) 500 mg tablet Take 1 tablet by mouth three times a day for 11 days. First dose this evening 33 tablet 04/24/2024 05/05/2024 Active Multiple Vitamins-Minerals (Centrum Adults) chewable tablet (20 sources) Multiple Vitamins-Minerals (Centrum Adults) chewable tablet Chew Active Multiple Vitamin s-Minerals (Centrum Adults) chewable tablet Chew 0 Active multivit-minerals/folic acid (CENTRUM MULTIGUMMIES ORAL) (20 sources) take 2 tablets by mouth once daily multivit-minerals/folic acid (CENTRUM MULTIGUMMIES ORAL) Take 2 tablets by mouth once daily. Suspended take 2 tablets by mouth once matilda ly multivit-minerals/folic acid (CENTRUM MULTIGUMMIES ORAL) Take 2 tablets by mouth once daily. Active multivit-mineral s/folic acid (CENTRUM MULTIGUMMIES ORAL) Take by mouth once daily. Active multivit-mineral s/folic acid (CENTRUM MULTIGUMMIES ORAL) Take by mouth. Active multivit-mineral s/folic acid (CENTRUM MULTIGUMMIES ORAL) Take by mouth. 0 Active Comment on above: Take by mouth. mupirocin 0.02 mg/mg topical ointment (20 sources) RNA Synthetase Inhibitor Antibacterial Start: 02-27-2024 mupirocin (Bactroban) 2 % ointment apply 1 gram to the neck TWICE DAILY for 2-3 weeks 02/27/2024 Active Start: 09-02-2023 End: 01-03-2024 mupirocin (BACTROBAN) 2 % oi ntment APPLY TO THE AFFECTED AREA(S) TWICE DAILY for 2-3 weeks 09/02/2023 01/03/2024 Discontinued (Other) Start: 02-03-2023 mupirocin (Stephen troban) 2 % ointment APPLY TO THE AFFECTED AREA(S) TWICE DAILY for 2-3 weeks 0 02/03/2023 Active Start: 07-01-2022 End: 09-17-2022 mupirocin (BACTROBAN) 2 % oi ntment pomalidomide 2 mg oral capsule (20 sources) Thalidomide Analog Start: 07-30-2024 pomalidomid e (POMALYST) 2 mg capsule Indications: Multiple myeloma not having achieved remission (HCC) , Neutropenia associated with infection (HCC) , 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HCC) , DM (diabetes mellitus), type 2 with complications (HCC) , Hepatocellular carcinoma (HCC) , Thrombocytopenia (HCC) Take 1 capsule (2 mg) by mouth once daily. For 21 days, followed by 7 days off (beginning 07/30/2024) 21 capsule 07/30/2024 Active Start: 07-30-2024 pomalidomide ( POMALYST) 2 mg capsule Indications: Multiple myeloma not having achieved remission (HCC) , Neutropenia associated with infection (HCC) , 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HCC) , DM (diabetes mellitus), type 2 with complications (HCC) , Hepatocellular carcinoma (HCC) , Thrombocytopenia (HCC) Take 1 capsule (2 mg) by mouth once daily. For 21 days, followed by 7 days off (beginning 07/30/2024) 21 capsule 07/30/2024 Active Start: 07-30-2024 pomalidomide ( POMALYST) 2 mg capsule Indications: Multiple myeloma not having achieved remission (HCC) , Neutropenia associated with infection (HCC) , 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HCC) , DM (diabetes mellitus), type 2 with complications (HCC) , Hepatocellular carcinoma (HCC) , Thrombocytopenia (HCC) Take 1 capsule (2 mg) by mouth once daily. For 21 days, followed by 7 days off (beginning 07/30/2024) 21 capsule 07/30/2024 Active Start: 07-30-2024 pomalidomide ( POMALYST) 2 mg capsule Indications: Multiple myeloma not having achieved remission (HCC) , Neutropenia associated with infection (HCC) , 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HCC) , DM (diabetes mellitus), type 2 with complications (HCC) , Hepatocellular carcinoma (HCC) , Thrombocytopenia (HCC) Take 1 capsule (2 mg) by mouth once daily. For 21 days, followed by 7 days off (beginning 07/30/2024) 21 capsule 07/30/2024 Active Start: 07-30-2024 End: 07-17-2024 pomalidomide (POMALYST) 2 mg capsule Indications: Multiple myeloma not having achieved remission (HCC) , Neutropenia associated with infection (HCC) , 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HCC) , DM (diabetes mellitus), type 2 with complications (HCC) , Hepatocellular carcinoma (HCC) , Thrombocytopenia (HCC) Take 1 capsule (2 mg) by mouth once daily for 21 days followed by 7 days off 21 capsule 07/30/2024 07/17/2024 Discontinued Start: 07-30-2024 End: 07-17-2024 pomalidomide (POMALYST) 2 mg capsule Indications: Multiple myeloma not having achieved remission (HCC) , Neutropenia associated with infection (HCC) , 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HCC) , DM (diabetes mellitus), type 2 with complications (HCC) , Hepatocellular carcinoma (HCC) , Thrombocytopenia (HCC) Take 1 capsule (2 mg) by mouth once daily for 21 days followed by 7 days off 21 capsule 07/30/2024 07/17/2024 Discontinued Start: 07-30-2024 pomalidomide ( POMALYST) 2 mg capsule Indications: Multiple myeloma not having achieved remission (HCC) , Neutropenia associated with infection (HCC) , 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HCC) , DM (diabetes mellitus), type 2 with complications (HCC) , Hepatocellular carcinoma (HCC) , Thrombocytopenia (HCC) Take 1 capsule (2 mg) by mouth once daily. For 21 days, followed by 7 days off (beginning 07/30/2024) 21 capsule 07/30/2024 Active Start: 07-30-2024 pomalidomide ( POMALYST) 2 mg capsule Indications: Multiple myeloma not having achieved remission (HCC) , Neutropenia associated with infection (HCC) , 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HCC) , DM (diabetes mellitus), type 2 with complications (HCC) , Hepatocellular carcinoma (HCC) , Thrombocytopenia (HCC) Take 1 capsule (2 mg) by mouth once daily for 21 days followed by 7 days off 21 capsule 07/30/2024 Active Start: 07-30-2024 pomalidomide ( POMALYST) 2 mg capsule Indications: Multiple myeloma not having achieved remission (HCC) , Neutropenia associated with infection (HCC) , 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HCC) , DM (diabetes mellitus), type 2 with complications (HCC) , Hepatocellular carcinoma (HCC) , Thrombocytopenia (HCC) Take 1 capsule (2 mg) by mouth once daily for 21 days followed by 7 days off 21 capsule 07/30/2024 Active Start: 07-30-2024 pomalidomide ( POMALYST) 2 mg capsule Indications: Multiple myeloma not having achieved remission (HCC) , Neutropenia associated with infection (HCC) , 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HCC) , DM (diabetes mellitus), type 2 with complications (HCC) , Hepatocellular carcinoma (HCC) , Thrombocytopenia (HCC) Take 1 capsule (2 mg) by mouth once daily for 21 days followed by 7 days off 21 capsule 07/30/2024 Active Start: 07-30-2024 pomalidomide ( POMALYST) 2 mg capsule Indications: Multiple myeloma not having achieved remission (HCC) , Neutropenia associated with infection (HCC) , 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HCC) , DM (diabetes mellitus), type 2 with complications (HCC) , Hepatocellular carcinoma (HCC) , Thrombocytopenia (HCC) Take 1 capsule (2 mg) by mouth once daily for 21 days followed by 7 days off 21 capsule 07/30/2024 Active Start: 06-18-2024 End: 07-17-2024 pomalidomide (POMALYST) 3 mg capsule Indications: Malnutrition of moderate degree (HCC) , DM (diabetes mellitus), type 2 with complications (HCC) , Moderate episode of recurrent major depressive disorder (HCC) , Multiple myeloma not having achieved remission (HCC) , 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HCC) , Neutropenia associated with infection (HCC) Take 1 capsule (3 mg) by mouth once daily for 21 days followed by 7 days off 21 capsule 06/18/2024 07/17/2024 Discontinued Probiotic Product (PROBIOTIC COLON SUPPORT PO) (20 sources) take 1 tablet by mouth once daily as needed Probiotic Product (PROBIOTIC COLON SUPPORT PO) Take 1 tablet by mouth Daily as needed Active rOPINIRole 2 mg oral tablet (20 sources) Nonergot Dopamine Agonist Start: 06-17-2020 End: 03-14-2024 take 1 tablet by mouth once daily at bedtime rOPINIRole (REQUIP) 2 mg tablet Take 1 tablet by mouth daily at bedtime. 09/28/2020 Active Requip Active Comment on above: Take 1 tablet by kiley th daily at bedtime. sulfamethoxazole 800 mg / trimethoprim 160 mg oral tablet (20 sources) Dihydrofolate Reductase Inhibitor Antibacterial, Sulfonamide Antimicrobial Start: take 1 tablet by mouth twice daily Sulfamethoxazo le-Trimethopri m (Bactrim Ds) 800-160 mg tablet Active 1 TAB PO Twice daily 25 02January 01, 2022 11:00pm Start: 01-02-2022 take 1 tablet by kiley th twice daily Sulfamethoxazole-Trimethoprim (Bactrim D s) 800-160 mg tablet Active 1 TAB PO Twice daily 25 02January 02, 2022 12:00am Start: 01-02-2022 take 1 tablet by kiley th twice daily Sulfamethoxazole-Trimethoprim (Bactrim D s) 800-160 mg tablet Active 1 TAB PO Twice daily 25 02January 02, 2022 12:00am Start: 11-18-2021 End: 02-21-2023 take 1 tablet by mouth twice daily sulfamethoxazole-trimethoprim (BACTRIM DS,SEPTRA DS) 800-160 mg per tablet Take 1 tablet by mouth twice daily. 0 11/18/2021 05/12/2022 Discontinued (Discontinued by Patient) Comment on above: Take 1 tablet by kiley twice daily. Take 1 tablet by kiley th two times a day. tamsulosin hydrochloride 0.4 mg oral capsule (20 sources) alpha-Adrenergic Quintin Start: 03-06-2024 End: 03-06-2025 take 1 capsule by mouth once daily at bedtime tamsulosin (FLOMAX) 0.4 mg Take 1 capsule by mouth daily at bedtime. 90 capsule 3 03/06/2024 03/06/2025 Active take 1 capsule by [facility] every twenty-four hours at bedtime tamsulosin (Flomax) 0.4 MG 24 hr capsule Take 0.4 mg by mouth at bedtime Active venetoclax 50 mg oral tablet (20 sources) BCL-2 Inhibitor Start: 04-25-2024 End: 06-18-2024 Venclexta 50 MG tablet 04/25/2024 Active Start: 12-11-2023 End: 04-24-2024 take 4 tablets by mouth in the morning Venetoclax 100 MG tablet Take 400 mg by mouth in the morning. 12/11/2023 Active Vitamin D3 (2 sources) Vitamin D3 Activ e Completed/Discontinued Medications Medication Drug Class(es) Dates Sig (Normalized) Sig (Original) acetaminophen 325 mg oral tablet (20 sources) Start: 07-30-2024 End: 07-30-2024 take 1 dose by mouth once, then take 4000 mg by mouth once daily 975 mg, ORAL, ONCE, 1 dose, On Tue07/30/24 at 0930, No more than 4000 mg of acetaminophen should be given per day (FROM ALL SOURCES) take 2 tablets by [facility] every eight hours as needed acetaminophen (TYLENOL EXTRA STRENGTH) 500 mg tablet Take 1,000 mg by mouth every 8 hours as needed. Active End: 03-14-2024 ACETAMINOPHEN ORAL Take by m out. 03/14/2024 Discontinued ACETAMINOPHEN OR AL Take by mouth. Active ACETAMINOPHEN OR AL Take by mouth. 0 Active Comment on above: Take by mouth. aspirin 81 mg chewable tablet (20 sources) Platelet Aggregation Inhibitor, Nonsteroidal Anti-inflammatory Drug Start: 07-23-2021 End: 01-02-2022 take 81 mg by mouth once daily Aspirin Discontinued 81 MG PO Daily July 22, 2021 11:00pm January 02, 2022 8:29am Start: 09-28-2020 End: 02-19-2022 take 1 tablet by mouth once daily aspirin, enteric coated (ASPIR-LOW) 81 mg EC tablet Take 1 tablet by mouth once daily. Please hold until told to resume by your oncologist 0 09/28/2020 02/19/2022 Discontinued (Discontinued by Patient) Aspirin Active Comment on above: Take 1 tablet by kiley once daily. Please hold until told to resume by your oncologist benzonatate 100 mg oral capsule (11 sources) Non-narcotic Antitussive Start: 11-04-19 End: 02-20-20 take 1 capsule by mouth every eight hours as needed benzonatate (TESSALON PERLE) 100 mg capsule Take 100 mg by mouth three times daily as needed. 0 11/03/2021 02/19/2022 Discontinued (Discontinued by Patient) Comment on above: Take 100 mg by mouth three times daily as needed. cephalexin 500 mg oral capsule (12 sources) Cephalosporin Antibacterial Start: 11-19-19 End: 02-16-20 take 1 capsule by mouth every twelve hours cephALEXin (KEFLEX) 500 mg capsule Take 1 capsule by mouth every 12 hours 6am/6pm. 11/18/2022 02/15/2023 Discontinued Comment on above: Take 1 capsule by [facility] every 12 hours 6am/6pm. cholecalciferol, vitD3,/vit K2 (VITAMIN D3-VITAMIN K2 ORAL) (20 sources) End: 01-03-20 cholecalciferol, vitD3,/vit K2 (VITAMIN D3-VITAMIN K2 ORAL) Take by mouth. 01/03/2024 Discontinued (Discontinued by Patient) cholecalciferol, vitD3,/vit K2 (VITAMIN D3-VITAMIN K2 ORAL) Take by mouth. Active cholecalciferol, vitD3,/vit K2 (VITAMIN D3-VITAMIN K2 ORAL) Take by mouth. 0 Active Comment on above: Take by mouth. cholestyramine resin 4000 mg powder for oral suspension (20 sources) Bile Acid Sequestrant Start: 04-24-20 End: 06-12-19 25 take 1 dose by mouth twice daily at mealtime cholestyramine (QUESTRAN) 4 gram packet Take 1 Packet by mouth two times a day with meals. 60 Packet 04/24/2024 06/12/2024 Discontinued (Discontinued by Patient) take 4 g by mouth in the morning cholestyramine light (Prevalite) 4 g packet Take 4 g by mouth in the morning and 4 g before bedtime. Active codeine phosphate 2 mg/ml / guaiFENesin 20 mg/ml oral solution (4 sources) Opioid Agonist Start: 06-29-2023 End: 01-03-2024 guaiFENesin-codeine (Robitussin-AC) 100-10 MG/5ML syrup 5 mL 06/29/2023 01/03/2024 Discontinued (Med list cleanup) dalbavancin (7 sources) Lipoglycopeptide Antibacterial End: 02-19-2022 dalbavancin HCl (DALVANCE INTRAVENOUS) Inject intravenously. Patient was given this IV for MRSA 0 02/19/2022 Discontinued (Discontinued by Patient) dalbavancin HCl (DALVANCE INTRAVENOUS) Inject intravenously. Patient was given this IV for MRSA 0 Active Comment on above: Inject intravenously . Patient was given this IV for MRSA dapsone 100 mg oral tablet (3 sources) Sulfone Start: 04-16-20 End: 05-16-19 take 1 tablet by mouth once daily dapsone 100 mg tablet Take 1 tablet by mouth once daily. 30 tablet 04/16/2024 04/24/2024 Discontinued 15 ml daratumumab-fihj 120 mg/ml / hyaluronidase-fihj 2000 unt/ml injection (1 source) Endoglycosidase, [id number] Cytolytic Antibody Start: 07-31-19 End: 07-31-19 1,800 mg, SUBCUTANEOUS, ONCE, 1 dose, On Tue07/30/24 at 1000, ++FOR SUBCUTANEOUS ADMINISTRATION ONLY++ EXP: 08/03/2024 0945 RT EXP: Prot ect From Light. Inject subcutaneously into subcutaneous tissue on the abdomen approximately 3 inches to the right or left of the navel over 3 to 5 minutes. dexAMETHasone 20 mg in NaCl 0.9% 50 mL (DECADRON) (1 source) Start: 07-31-19 End: 07-31-19 20 mg, INTRAVENOUS, Administer over 15 Minutes, ONCE, 1 dose, On Tue07/30/24 at 0930, Administer 30 minutes prior to infusion. Refrigerate. DEXCOM G6 PICKING BELT OPERATOR mis (11 sources) Start: 09-29-19 End: 02-16-20 DEXCOM G6 PICKING BELT OPERATOR misc 09/28/2022 02/15/2023 Discontinued Start: 09-28-2022 End: 02-15-2023 DEXCOM G6 PICKING BELT OPERATOR misc Start: 09-28-2022 DEXCOM G6 RECE IVER misc dicyclomine hydrochloride 20 mg oral tablet (10 sources) Anticholinergic Start: 08-03-2022 End: 09-17-2022 dicyclomine (BENTYL) 20 mg tablet diphenhydrAMINE (1 source) Histamine-1 Receptor Antagonist Start: 07-30-2024 End: 07-30-2024 50 mg, INTRAVENOUS, ONCE, 1 dose, On Tue07/30/24 at 0930 doxycycline hyclate 100 mg oral capsule (20 sources) Tetracycline-class Drug Start: 02-27-2024 End: 03-26-2024 take 1 capsule by mouth twice daily at mealtime doxycycline hyclate (VIBRAMYCIN) 100 mg capsule Take 100 mg by mouth two times a day. Take with food 02/27/2024 03/26/2024 Discontinued (Course of therapy completed) Start: 09-30-2023 End: 01-03-2024 doxycycline monohydrate (MON ODOX) 100 mg capsule TAKE 1 CAPSULE BY MOUTH TWICE DAILY (IN THE MORNING BEFORE bedtime) FOR 10 DAYS TAKE WITH EIGHT OUNCE OF water, do not lie down for 30 MINUTES after 09/30/2023 01/03/2024 Discontinued (Course of therapy completed) Start: 06-30-2022 End: 09-17-2022 take 1 tablet by mouth twice daily doxycycline (VIBRA-TABS) 100 mg tablet Take 100 mg by mouth twice daily. 0 06/30/2022 09/17/2022 Discontinued (Course of therapy completed) Comment on above: Take 100 mg by mouth twice daily. empagliflozin 10 mg oral tablet (20 sources) Sodium-Glucose Cotransporter 2 Inhibitor End: take 1 tablet by mouth once daily at breakfast empagliflozin (JARDIANCE) 10 mg tablet Take 10 mg by mouth daily with breakfast. 01/03/2024 Discontinued (Other) take 25 mg by mouth in the morni ng Jardiance 25 MG Take 25 mg by mouth in the morning. 0 Active Comment on above: Take 10 mg by mouth daily with breakfast. 2 ml famotidine 10 mg/ml injection (1 source) Histamine-2 Receptor Antagonist Start: 07-31-19 End: 07-31-19 20 mg, INTRAVENOUS, ONCE, 1 dose, On Tue07/30/24 at 0930, REFRIGERATE 0.8 ml filgrastim-aafi 0.6 mg/ml prefilled syringe (20 sources) Leukocyte Growth Factor Start: 08-02-19 End: 08-02-19 inject 1 dose by subcutaneous injection once 480 mcg, SUBCUTANEOUS, ONCE, 1 dose, On Tue08/01/24 at 1430, Refrigerate - Protect from light Start: 07-31-2024 End: 07-31-2024 inject 1 dose by subcutaneous injection once 480 mcg, SUBCUTANEOUS, ONCE, 1 dose, On Tue07/31/24 at 1130, Refrigerate - Protect from light Start: 07-30-2024 End: 07-30-2024 inject 1 dose by subcutaneous injection once 480 mcg, SUBCUTANEOUS, ONCE, 1 dose, On Tue07/30/24 at 0930, Refrigerate - Protect from light Start: 07-19-2024 End: 07-20-2024 inject 1 dose by subcutaneous injection once 480 mcg, SUBCUTANEOUS, ONCE, 1 dose, On Tue07/20/24 at 1430, Refrigerate - Protect from light Start: 07-18-2024 End: 07-18-2024 inject 1 dose by subcutaneous injection once 480 mcg, SUBCUTANEOUS, ONCE, 1 dose, On Tue07/18/24 at 1500, Refrigerate - Protect from light Start: 07-17-2024 End: 07-17-2024 inject 1 dose by subcutaneous injection once 480 mcg, SUBCUTANEOUS, ONCE, 1 dose, On Tue07/17/24 at 1430, Refrigerate - Protect from light Start: 06-22-2024 End: 06-22-2024 inject 1 dose by subcutaneous injection once 480 mcg, SUBCUTANEOUS, ONCE, 1 dose, On Tue06/22/24 at 1130, Refrigerate - Protect from light Start: 06-20-2024 End: 06-20-2024 inject 1 dose by subcutaneous injection once 480 mcg, SUBCUTANEOUS, ONCE, 1 dose, On Tue06/20/24 at 1100, Refrigerate - Protect from light Start: 06-19-2024 End: 06-19-2024 inject 1 dose by subcutaneous injection once 480 mcg, SUBCUTANEOUS, ONCE, 1 dose, On Tue06/19/24 at 1500, Refrigerate - Protect from light Start: 06-18-2024 End: 06-18-2024 inject 1 dose by subcutaneous injection once 480 mcg, SUBCUTANEOUS, ONCE, 1 dose, On Tue06/18/24 at 1400, Refrigerate - Protect from light Start: 06-12-2024 End: 06-13-2024 inject 1 dose by subcutaneous injection once 480 mcg, SUBCUTANEOUS, ONCE, 1 dose, On Tue06/13/24 at 1100, Refrigerate - Protect from light Start: 06-11-2024 End: 06-11-2024 inject 1 dose by subcutaneous injection once 480 mcg, SUBCUTANEOUS, ONCE, 1 dose, On Tue06/11/24 at 1100, Refrigerate - Protect from light Start: 06-07-2024 End: 06-07-2024 inject 1 dose by subcutaneous injection once 480 mcg, SUBCUTANEOUS, ONCE, 1 dose, On Tue06/07/24 at 1000, Refrigerate - Protect from light Start: 06-05-2024 End: 06-05-2024 inject 1 dose by subcutaneous injection once 480 mcg, SUBCUTANEOUS, ONCE, 1 dose, On Tue06/05/24 at 1030, Refrigerate - Protect from light Start: 06-04-2024 End: 06-04-2024 inject 1 dose by subcutaneous injection once 480 mcg, SUBCUTANEOUS, ONCE, 1 dose, On Tue06/04/24 at 1200, Refrigerate - Protect from light Start: 05-21-2024 End: 05-21-2024 inject 1 dose by subcutaneous injection once 480 mcg, SUBCUTANEOUS, ONCE, 1 dose, On Tue05/21/24 at 1200, Refrigerate - Protect from light Start: 05-17-2024 End: 05-17-2024 inject 1 dose by subcutaneous injection once 480 mcg, SUBCUTANEOUS, ONCE, 1 dose, On Tue05/17/24 at 1230, Refrigerate - Protect from light Start: 05-07-2024 End: 05-07-2024 inject 1 dose by subcutaneous injection once 480 mcg, SUBCUTANEOUS, ONCE, 1 dose, On Tue05/07/24 at 1200, Refrigerate - Protect from light Start: 05-03-2024 End: 05-03-2024 inject 1 dose by subcutaneous injection once 480 mcg, SUBCUTANEOUS, ONCE, 1 dose, On Tue05/03/24 at 1200, Refrigerate - Protect from light Start: 03-29-2024 End: 03-29-2024 inject 1 dose by subcutaneous injection once 480 mcg, SUBCUTANEOUS, ONCE, 1 dose, On Tue03/29/24 at 1130, Refrigerate - Protect from light Start: 03-28-2024 End: 03-28-2024 inject 1 dose by subcutaneous injection once 480 mcg, SUBCUTANEOUS, ONCE, 1 dose, On Tue03/28/24 at 1130, Refrigerate - Protect from light Start: 03-27-2024 End: 03-27-2024 inject 1 dose by subcutaneous injection once 480 mcg, SUBCUTANEOUS, ONCE, 1 dose, On Tue03/27/24 at 1500, Refrigerate - Protect from light Start: 03-26-2024 End: 03-26-2024 inject 1 dose by subcutaneous injection once 480 mcg, SUBCUTANEOUS, ONCE, 1 dose, On Tue03/26/24 at 1300, Refrigerate - Protect from light Start: 03-15-2024 End: 03-15-2024 inject 1 dose by subcutaneous injection once 480 mcg, SUBCUTANEOUS, ONCE, 1 dose, On Tue03/15/24 at 1400, Refrigerate - Protect from light Start: 03-14-2024 End: 03-14-2024 inject 1 dose by subcutaneous injection once 480 mcg, SUBCUTANEOUS, ONCE, 1 dose, On Tue03/14/24 at 1400, Refrigerate - Protect from light Start: 03-13-2024 End: 03-13-2024 inject 1 dose by subcutaneous injection once 480 mcg, SUBCUTANEOUS, ONCE, 1 dose, On Tue03/13/24 at 1400, Refrigerate - Protect from light Start: 03-12-2024 End: 03-12-2024 inject 1 dose by subcutaneous injection once 480 mcg, SUBCUTANEOUS, ONCE, 1 dose, On Tue03/12/24 at 1530, Refrigerate - Protect from light furosemide 20 mg oral tablet (14 sources) Loop Diuretic Start: 10-13-2022 End: 02-15-2023 take 1 tablet by mouth once daily furosemide (LASIX) 20 mg tablet Take 1 tablet by mouth once daily for 7 days. 7 tablet 10/13/2022 02/15/2023 Discontinued Comment on above: Take 1 tablet by kiley once daily for 7 days. Ibuprofen / Pseudoephedrine (3 sources) alpha-Adrenergic Agonist, Nonsteroidal Anti-inflammatory Drug End: 09-17-2022 ibuprofen/pseudoep hedrine HCl (ADVIL COLD AND SINUS ORAL) Take by mouth as needed. 0 09/17/2022 Discontinued (Course of therapy completed) ibuprofen/pseudo ephedrine HCl (ADVIL COLD AND SINUS ORAL) Take by mouth as needed. 0 Active Comment on above: Take by mouth as nee ded. iv contrast (will be provided with radiology test) (20 sources) Start: 12-09-2023 End: 12-10-2023 iv contrast (will be provided with radiology test) MRI LIVER (EOVIST) Inject, intravenously, once for 1 dose. No IV access, insert saline lock prior to the beginning of sedation, infusion, injection of imaging exam. Discontinue saline lock post exam. If Pt. has a central line or IVAD, may access for administration according to line specific nursing protocol. Once exam is complete flush line and de-access according to line specific nursing protocol in the MR contrast administration guidelines link. 1 Each 0 12/09/2023 12/10/2023 Start: 09-15-2023 End: 09-16-2023 iv contrast (will be provide d with radiology test) Indications: Hepatocellular carcinoma (HCC) MRI LIVER (EOVIST) Inject, intravenously, once for 1 dose. No IV access, insert saline lock prior to the beginning of sedation, infusion, injection of imaging exam. Discontinue saline lock post exam. If Pt. has a central line or IVAD, may access for administration according to line specific nursing protocol. Once exam is complete flush line and de-access according to line specific nursing protocol in the MR contrast administration guidelines link. 1 Each 0 09/15/2023 09/16/2023 Active Start: 02-21-2023 End: 02-22-2023 iv contrast (will be provide d with radiology test) Indications: Hepatocellular carcinoma (HCC) MRI Liver Inject, intravenously, once for 1 dose. No IV access, insert saline lock prior to the beginning of sedation, infusion, injection of imaging exam. Discontinue saline lock post exam. If Pt. has a central line or IVAD, may access for administration according to line specific nursing protocol. Once exam is complete flush line and de-access according to line specific nursing protocol in the MR contrast administration guidelines link. 1 Each 0 02/21/2023 02/22/2023 Active Start: 01-18-2023 End: 02-21-2023 iv contrast (will be provide d with radiology test) Indications: Hepatocellular carcinoma (HCC) CT LIVER W IVCON Inject, intravenously, once for 1 dose. No IV access, insert saline lock prior to the beginning of sedation, infusion, injection of imaging exam. Discontinue saline lock post exam. If Pt. has a central line or IVAD, may access for administration according to line specific nursing protocol. Once exam is complete flush line and de-access according to line specific nursing protocol in the CT contrast administration guidelines link. 1 Each 01/18/2023 02/21/2023 Discontinued (Course of therapy completed) Start: 01-18-2023 End: 02-21-2023 iv contrast (will be provide d with radiology test) Indications: Hepatocellular carcinoma (HCC) CT LIVER W IVCON Inject, intravenously, once for 1 dose. No IV access, insert saline lock prior to the beginning of sedation, infusion, injection of imaging exam. Discontinue saline lock post exam. If Pt. has a central line or IVAD, may access for administration according to line specific nursing protocol. Once exam is complete flush line and de-access according to line specific nursing protocol in the CT contrast administration guidelines link. 1 Each 0 01/18/2023 02/21/2023 Discontinued (Course of therapy completed) Start: 01-18-2023 iv contrast (w ill be provided with radiology test) Indications: Hepatocellular carcinoma (HCC) CT LIVER W IVCON Inject, intravenously, once for 1 dose. No IV access, insert saline lock prior to the beginning of sedation, infusion, injection of imaging exam. Discontinue saline lock post exam. If Pt. has a central line or IVAD, may access for administration according to line specific nursing protocol. Once exam is complete flush line and de-access according to line specific nursing protocol in the CT contrast administration guidelines link. 1 Each 0 01/18/2023 Active Start: 11-11-2022 End: 01-18-2023 iv contrast (will be provide d with radiology test) Indications: Hepatocellular carcinoma (HCC) MRI Liver Inject, intravenously, once for 1 dose. No IV access, insert saline lock prior to the beginning of sedation, infusion, injection of imaging exam. Discontinue saline lock post exam. If Pt. has a central line or IVAD, may access for administration according to line specific nursing protocol. Once exam is complete flush line and de-access according to line specific nursing protocol in the MR contrast administration guidelines link. 1 Each 0 11/11/2022 01/18/2023 Discontinued Start: 11-11-2022 iv contrast (w ill be provided with radiology test) Indications: Hepatocellular carcinoma (HCC) MRI Liver Inject, intravenously, once for 1 dose. No IV access, insert saline lock prior to the beginning of sedation, infusion, injection of imaging exam. Discontinue saline lock post exam. If Pt. has a central line or IVAD, may access for administration according to line specific nursing protocol. Once exam is complete flush line and de-access according to line specific nursing protocol in the MR contrast administration guidelines link. 1 Each 0 11/11/2022 Active Start: 09-29-2022 End: 01-18-2023 iv contrast (will be provide d with radiology test) Indications: Hepatocellular carcinoma (HCC) MRI Liver Inject, intravenously, once for 1 dose. No IV access, insert saline lock prior to the beginning of sedation, infusion, injection of imaging exam. Discontinue saline lock post exam. If Pt. has a central line or IVAD, may access for administration according to line specific nursing protocol. Once exam is complete flush line and de-access according to line specific nursing protocol in the MR contrast administration guidelines link. 1 Each 0 09/29/2022 01/18/2023 Discontinued Start: 09-29-2022 iv contrast (w ill be provided with radiology test) Indications: Hepatocellular carcinoma (HCC) MRI Liver Inject, intravenously, once for 1 dose. No IV access, insert saline lock prior to the beginning of sedation, infusion, injection of imaging exam. Discontinue saline lock post exam. If Pt. has a central line or IVAD, may access for administration according to line specific nursing protocol. Once exam is complete flush line and de-access according to line specific nursing protocol in the MR contrast administration guidelines link. 1 Each 0 09/29/2022 Active Start: 09-01-2022 End: 09-02-2022 iv contrast (will be provide d with radiology test) MRI LIVER (EOVIST) Inject, intravenously, once for 1 dose. No IV access, insert saline lock prior to the beginning of sedation, infusion, injection of imaging exam. Discontinue saline lock post exam. If Pt. has a central line or IVAD, may access for administration according to line specific nursing protocol. Once exam is complete flush line and de-access according to line specific nursing protocol in the MR contrast administration guidelines link. 1 Each 0 09/01/2022 09/02/2022 Comment on above: MRI LIVER (EOVIST) I nject, intravenously, once for 1 dose. No IV access, insert saline lock prior to the beginning of sedation, infusion, injection of imaging exam. Discontinue saline lock post exam. If Pt. has a central line or IVAD, may access for administration according to line specific nursing protocol. Once exam is complete flush line and de-access according to line specific nursing protocol in the MR contrast administration guidelines link. MRI Liver Inject, in travenously, once for 1 dose. No IV access, insert saline lock prior to the beginning of sedation, infusion, injection of imaging exam. Discontinue saline lock post exam. If Pt. has a central line or IVAD, may access for administration according to line specific nursing protocol. Once exam is complete flush line and de-access according to line specific nursing protocol in the MR contrast administration guidelines link. CT LIVER W IVCON Inj ect, intravenously, once for 1 dose. No IV access, insert saline lock prior to the beginning of sedation, infusion, injection of imaging exam. Discontinue saline lock post exam. If Pt. has a central line or IVAD, may access for administration according to line specific nursing protocol. Once exam is complete flush line and de-access according to line specific nursing protocol in the CT contrast administration guidelines link. lenalidomide 2.5 mg oral capsule (20 sources) Thalidomide Analog Start: 06-15-2023 End: 01-03-2024 Revlimid 2.5 MG capsule 07/11/2023 01/03/2024 Discontinued (Med list cleanup) Start: 12-22-2022 End: 06-15-2023 take 1 capsule by mouth once daily REVLIMID 5 mg capsule Take 1 capsule by mouth once daily. 28 capsule 01/17/2023 02/16/2023 Discontinued Start: 05-18-2022 End: 09-17-2022 take 1 capsule by mouth once daily REVLIMID 5 mg capsule Indications: 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HCC) , Multiple myeloma not having achieved remission (HCC) , Autologous bone marrow transplantation status (HCC) TAKE 1 CAPSULE BY MOUTH 1 TIME DAILY. 28 capsule 0 06/22/2022 09/17/2022 Discontinued (Discontinued by another Health Care Provider) Start: 04-20-2022 take 1 capsule by [facility] once daily lenalidomide (REVLIMID) 5 mg capsule Indications: 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HCC) , Multiple myeloma not having achieved remission (HCC) , Autologous bone marrow transplantation status (HCC) TAKE 1 CAPSULE BY MOUTH 1 TIME DAILY. 28 capsule 0 04/20/2022 Active Start: 03-21-2022 End: 04-14-2022 take 1 capsule by mouth once daily lenalidomide (REVLIMID) 5 mg capsule Indications: 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HCC) , Multiple myeloma not having achieved remission (HCC) , Autologous bone marrow transplantation status (HCC) TAKE 1 CAPSULE BY MOUTH 1 TIME DAILY. 28 capsule 0 04/14/2022 Active Start: 12-06-2021 End: 01-02-2022 take 1 capsule by mouth once daily Lenalidomide (Revlimid) 10 mg Capsule Discontinued 10 MG PO Daily December 05, 2021 11:00pm January 02, 2022 8:29am Start: 11-30-2021 End: 03-19-2022 lenalidomide (REVLIMID) 5 mg capsule Indications: 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HCC) , Multiple myeloma not having achieved remission (HCC) , Autologous bone marrow transplantation status (HCC) Take one tablet daily 28 capsule 0 03/17/2022 03/19/2022 Discontinued Start: 11-30-2021 take 1 capsule by mo [facility] once daily lenalidomide (REVLIMID) 5 mg capsule Indications: 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HCC) , Multiple myeloma not having achieved remission (HCC) , Autologous bone marrow transplantation status (HCC) TAKE 1 CAPSULE BY MOUTH 1 TIME DAILY. 28 capsule 0 11/30/2021 Active Start: 11-30-2021 take 1 capsule by mo [facility] once daily lenalidomide (REVLIMID) 5 mg capsule Indications: 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HCC) , Multiple myeloma not having achieved remission (HCC) , Autologous bone marrow transplantation status (HCC) TAKE 1 CAPSULE BY MOUTH 1 TIME DAILY. 28 capsule 0 11/30/2021 Active Start: 07-30-2021 End: 12-22-2022 take 1 capsule by mouth once daily lenalidomide (REVLIMID) 5 mg capsule Indications: 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HCC) , Multiple myeloma not having achieved remission (HCC) , Autologous bone marrow transplantation status (HCC) TAKE 1 CAPSULE BY MOUTH 1 TIME DAILY. 28 capsule 0 10/23/2021 11/20/2021 Discontinued Start: 05-20-2021 End: 07-30-2021 take 1 capsule by mouth once daily lenalidomide (REVLIMID) 10 mg capsule Indications: Autologous bone marrow transplantation status (HCC) , Multiple myeloma not having achieved remission (HCC) , 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HCC) Take 1 capsule (10 mg) by mouth once daily for 28 days. 28 capsule 0 05/20/2021 07/30/2021 Discontinued Start: 06-17-2020 End: 12-06-2021 take 1 capsule by mouth once daily Lenalidomide (Revlimid) 15 mg capsule Discontinued 10 MG PO Daily June 17, 2020 12:00am December 06, 2021 9:56am Revlimid Active Comment on above: Take 1 capsule (5 mg ) by mouth once daily. Take 1 capsule (10 m g) by mouth once daily for 28 days. TAKE 1 CAPSULE BY MO [facility] 1 TIME DAILY. Take one tablet nedra y Take 1 capsule by mo [facility] once daily. Take 5 mg by mouth o nce daily. TAKE 1 CAPSULE BY MO [facility] 1 TIME A DAY levoFLOXacin 750 mg oral tablet (11 sources) Quinolone Antimicrobial Start: 11-04-19 End: 02-20-20 take 1 tablet by mouth once daily levoFLOXacin (LEVAQUIN) 750 mg tablet TAKE 1 TABLET BY MOUTH DAILY FOR 10 DAYS 0 11/03/2021 02/19/2022 Discontinued (Discontinued by Patient) Comment on above: TAKE 1 TABLET BY KILEY TH DAILY FOR 10 DAYS loperamide hydrochloride 2 mg oral capsule (20 sources) Opioid Agonist Start: 07-24-19 End: 12-07-19 take 1 capsule by mouth four times daily Loperamide (Imodium A-D) 2 mg Capsule Discontinued 2 MG PO Four times daily July 22, 2021 11:00pm December 06, 2021 9:57am take 1 tablet by kiley th every six hours Imodium A-D 2 MG 1 tablet as needed Orally Four times a day Active End: 02-19-2022 loperamide HCl (IMODIUM ORAL ) Take by mouth. 0 02/19/2022 Discontinued (Discontinued by Patient) loperamide HCl ( IMODIUM ORAL) Take by mouth. 0 Active Imodium A-D Acti ve Comment on above: Take by mouth. metFORMIN hydrochloride 1000 mg oral tablet (17 sources) Biguanide Start: 06-17-2020 End: 12-04-2021 take 1000 mg by mouth twice daily Metformin Discontinued 1000 MG PO Twice daily June 17, 2020 12:00am December 04, 2021 10:36am Glucophage Activ e Comment on above: Take 1,000 mg by kiley th twice daily with meals. nitrofurantoin, macrocrystals 25 mg / nitrofurantoin, monohydrate 75 mg oral capsule (7 sources) Nitrofuran Antibacterial Start: 04-04-20 24 End: 04-26-20 24 take 1 capsule by mouth in the morning nitrofurantoin, macrocrystal-monohyd rate, (Macrobid) 100 MG capsule Take 100 mg by mouth in the morning and 100 mg before bedtime. 04/09/2024 04/26/2024 Discontinued (Therapy completed) nystatin [id number] unt/ml oral suspension (20 sources) Polyene Antifungal Start: 11-17-19 End: 09-18-19 23 take 4 mL by mouth four times daily nystatin (MYCOSTATIN) 100,000 unit/mL suspension TAKE 4 ML BY MOUTH swish in mouth for as long as possible BEFORE swallowing FOUR TIMES DAILY FOR 10 DAYS 0 11/16/2021 09/17/2022 Discontinued (Course of therapy completed) Comment on above: TAKE 4 ML BY MOUTH s wish in mouth for as long as possible BEFORE swallowing FOUR TIMES DAILY FOR 10 DAYS ondansetron 8 mg oral tablet (20 sources) Serotonin-3 Receptor Antagonist Start: 12-17-19 21 End: 02-20-20 22 take 1 tablet by mouth every eight hours Ondansetron Hcl (Zofran) 8 mg Tablet Discontinued 8 MG PO Q8H July 22, 2021 11:00pm December 06, 2021 9:55am Zofran Active oxyCODONE hydrochloride 5 mg oral tablet (17 sources) Opioid Agonist Start: 10-18-2022 End: 02-15-2023 take 1 tablet by mouth every eight hours as needed oxyCODONE IR (ROXICODONE) 5 mg immediate release tablet Indications: Hepatocellular carcinoma (HCC) , Acute post-operative pain Take 1 tablet by mouth every 8 hours as needed. 20 tablet 10/21/2022 02/15/2023 Discontinued Comment on above: Take 1 tablet by kiley every 8 hours as needed. potassium chloride 20 meq extended release oral tablet (20 sources) Start: 07-23-2021 End: 12-04-2021 take 20 mEq by mouth twice daily Potassium Chloride Discontinued 20 MEQ PO Twice daily July 22, 2021 11:00pm December 04, 2021 10:36am Start: 10-03-2020 End: 02-19-2022 take 1 tablet by mouth twice daily potassium chloride ER (K-DUR, KLOR-CON) 20 mEq tablet Take 1 tablet by mouth twice daily. 60 tablet 3 10/03/2020 02/19/2022 Discontinued (Discontinued by Patient) Klor-Con Active Comment on above: Take 1 tablet by kiley twice daily. predniSONE 10 mg oral tablet (11 sources) Start: End: take 3 tablets by mouth once daily, then take 2 tablets by mouth once daily, then take 1 tablet by mouth once daily predniSONE (DELTASONE) 10 mg tablet TAKE 3 TABLETS BY MOUTH DAILY FOR 3 DAYS, then TAKE 2 TABLETS DAILY FOR 3 DAYS, then TAKE 1 TABLET DAILY FOR 3 DAYS 0 11/03/2021 02/19/2022 Discontinued (Discontinued by Patient) Comment on above: TAKE 3 TABLETS BY MO [facility] DAILY FOR 3 DAYS, then TAKE 2 TABLETS DAILY FOR 3 DAYS, then TAKE 1 TABLET DAILY FOR 3 DAYS prochlorperazine 10 mg oral tablet (20 sources) Phenothiazine Start: End: Prochlorperazine Maleate Discontinued 10 MG PO every 4 to 5 hours June 17, 2020 12:00am December 04, 2021 10:38am Compazine Active Comment on above: Take 1 tablet by kiley th every 4 hours as needed. FOR NAUSEA psyllium husk (METAMUCIL ORAL) (13 sources) End: 02-21-2023 psyllium husk (METAMUCIL ORAL) Take by mouth. 02/21/2023 Discontinued (Course of therapy completed) End: 02-21-2023 psyllium husk (METAMUCIL ORA L) Take by mouth. 0 02/21/2023 Discontinued (Course of therapy completed) psyllium husk (M ETAMUCIL ORAL) Take by mouth. 0 Active Comment on above: Take by mouth. romiPLOStim 0.125 mg injection (1 source) Thrombopoietin Receptor Agonist Start: 07-30-2024 End: 07-30-2024 226.4 mcg (2 mcg/kg/dose 113.2 kg Order-specific weight), SUBCUTANEOUS, ONCE, 1 dose, On Tue07/30/24 at 0930, EXP: 07/30/2024 1330 RT Initial: 1 mcg/kg (actual body weight) SUBQ once weekly, adjusted weekly in increments of 1 mcg/kg to achieve platelet count of 50 x 10(9)/L or greater; MAX weekly dose 10 mcg/kg Protect From Light - EXP: (4 HR) Dispense with Medication Guide. Review platelets prior to administration, if greater than 400,000/mcL, contact provider. simethicone 80 mg chewable tablet (20 sources) Start: 07-23-2021 End: 12-04-2021 Simethicone Discontinued 80 MG PO 4-6 TIMES PER DAY July 22, 2021 11:00pm December 04, 2021 10:36am Start: 10-03-2020 End: 02-19-2022 take 1 tablet by mouth every six hours as needed simethicone, chewable (MYLICON) 80 mg chewable tablet Take 1 tablet by mouth every 6 hours as needed. 0 10/03/2020 02/19/2022 Discontinued (Discontinued by Patient) Mylicon Active Comment on above: Take 1 tablet by kiley th every 6 hours as needed. 1000 ml sodium chloride 9 mg/ml injection (20 sources) Start: 01-12-2024 End: 01-12-2024 1,000 mL/hr (rounded to 999 mL/hr), INTRAVENOUS, Administer over 1 Hours, ONCE, 1 dose, On Marilyn 01/12/24 at 1500 Start: 01-10-2024 End: 01-10-2024 1,000 mL/hr (rounded to 999 mL/hr), INTRAVENOUS, Administer over 1 Hours, ONCE, 1 dose, On Tue01/10/24 at 1430 Start: 01-05-2024 End: 01-05-2024 1,000 mL/hr (rounded to 999 mL/hr), INTRAVENOUS, Administer over 1 Hours, ONCE, 1 dose, On Marilyn 01/05/24 at 1430 Start: 01-03-2024 End: 01-03-2024 1,000 mL/hr (rounded to 999 mL/hr), INTRAVENOUS, Administer over 1 Hours, ONCE, 1 dose, On Tue01/03/24 at 1330 Start: 08-19-2020 End: 02-19-2022 inject 10 mL intravenously once daily sodium chloride 0.9 %, flush, (BD POSIFLUSH) syringe Indications: Multiple myeloma, remission status unspecified (HCC) Inject 10 mL intravenously once daily. BMT Patient. Flush each lumen daily. 450 mL 0 08/19/2020 02/19/2022 Discontinued (Discontinued by Patient) Start: 07-22-2020 End: 10-21-2021 sodium chloride 0.9 % (flush ) 10 mL (BD POSIFLUSH) Comment on above: Inject 10 mL intrave nously once daily. BMT Patient. Flush each lumen daily. traMADol hydrochloride 50 mg oral tablet (20 sources) Opioid Agonist Start: 07-24-19 End: 02-20-20 take 50 mg by mouth every six hours Tramadol Discontinued 50 MG PO Q6H July 22, 2021 11:00pm December 04, 2021 10:36am Ultram Active Comment on above: Take 50 mg by mouth every 6 hours as needed. traZODone hydrochloride 100 mg oral tablet (20 sources) Serotonin Reuptake Inhibitor Start: End: take 100 mg by mouth once daily at bedtime Trazodone Discontinued 100 MG PO Daily at bedtime July 22, 2021 11:00pm December 04, 2021 10:36am traZODone HCl Ac tive triamcinolone acetonide 1 mg/ml topical cream (20 sources) Corticosteroid Start: 07-23-2021 End: 12-04-2021 Triamcinolone Acetonide (Kenalog) 0.1 % Cream Discontinued 1 APPLIC TOPICAL Twice daily July 22, 2021 11:00pm December 04, 2021 10:37am Start: 02-18-2021 End: 09-17-2022 triamcinolone acetonide (YOLI ALOG) 0.1 % ointment 0 02/18/2021 09/17/2022 Discontinued (Course of therapy completed) Kenalog Active Problems Active Problems Problem Classification Problem Date Documented Da te Episodic/Chronic Acute and unspecified renal failure (20 sources) Acute injury of kidney; 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: [Acute kidney failure, unspecified] Onset: 1 10-28-2020 Episodic Administrative/social admission (7 sources) Patient encounter status; 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: [Dietary counseling and surveillance] 01-19-2023 Episodic Allergic reactions (20 sources) Atopic dermatitis; 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: [Intrinsic (allergic) eczema] Onset: 3 09-09-2022 Chronic Anxiety disorders (5 sources) Claustrophobia; 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: [Claustrophobia] 03-23-2023 Chronic Aortic; peripheral; and visceral artery aneurysms (20 sources) Aneurysm of renal artery; 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: [Abdominal aortic aneurysm] Onset: 3 09-27-2022 Chronic Cancer of liver and intrahepatic bile duct (20 sources) Liver cell carcinoma; 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: [Liver cell carcinoma] Onset: 3 Chronic Cardiac dysrhythmias (19 sources) Paroxysmal atrial fibrillation; 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: [Paroxysmal atrial fibrillation] Onset: 5 07-12-2024 Chronic Chronic kidney disease (20 sources) Chronic kidney disease stage 3; 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: [Stage 3 chronic kidney disease, unspecified whether stage 3a or 3b CKD (HCC)] Onset: 3 Resolved: 4 11-24-2022 Chronic Coagulation and hemorrhagic disorders (20 sources) Thrombocytopenia, unspecified; 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: [Platelet count below reference range] Onset: 3 Chronic Coagulation and hemorrhagic disorders (2 sources) Secondary thrombocytopenia; 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: [Other secondary thrombocytopenia] Episodic Deficiency and other anemia (20 sources) Pancytopenia due to antineoplastic chemotherapy; 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: [Antineoplastic chemotherapy induced pancytopenia] Onset: 1 09-29-2020 Chronic Deficiency and other anemia (20 sources) Pancytopenia; 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: [Other pancytopenia] Onset: 3 Chronic Deficiency and other anemia (1 source) Anemia, unspecified; 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: [Anemia, unspecified type] Onset: 5 Episodic Diabetes mellitus with complications (20 sources) Secondary diabetes mellitus; 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: [Diabetes mellitus due to underlying condition with hyperglycemia] Onset: 6 Chronic Diabetes mellitus without complication (20 sources) Type 2 diabetes mellitus; 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: [Type 2 diabetes mellitus without complications] Onset: 1 09-29-2020 Chronic Diabetes mellitus without complication (1 source) Hyperglycemia, unspecified; 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: [Hyperglycemia] Onset: 5 Episodic Diseases of white blood cells (20 sources) Neutropenia associated with infectious disease; 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: [Neutropenia due to infection] Onset: 4 03-12-2024 Chronic Disorders of lipid metabolism (20 sources) Hypercholesterolemia; 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: [Pure hypercholesterolemia, unspecified] Onset: 1 09-29-2020 Chronic Diverticulosis and diverticulitis (20 sources) Diverticular disease; 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: [Diverticulosis of intestine, part unspecified, without perforation or abscess without bleeding] Onset: 9 09-09-2022 Chronic E Codes: Adverse effects of medical drugs (1 source) Adverse effect of antineoplastic and immunosuppressive drugs, initial encounter; 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: [Immunosuppressed due to chemotherapy (HCC)] Onset: 5 Episodic Essential hypertension (20 sources) Hypertensive disorder; 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: [Essential (primary) hypertension] Onset: 1 09-29-2020 Chronic Gastrointestinal hemorrhage (14 sources) Rectal hemorrhage; 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: [Hemorrhage of anus and rectum] Onset: 5 07-16-2024 Episodic Glaucoma (20 sources) Glaucoma; 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: [Unspecified glaucoma] Onset: 3 09-09-2022 Chronic Hyperplasia of prostate (3 sources) Benign prostatic hyperplasia with lower urinary tract symptoms; 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: [Benign prostatic hypertrophy with outflow obstruction] Onset: 3 03-07-2024 Chronic Immunity disorders (20 sources) Immunodeficiency disorder; 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: [Immunodeficiency, unspecified] Onset: 1 10-04-2020 Chronic Inflammation; infection of eye (except that caused by tuberculosis or sexually transmitteddisease) (1 source) Unspecified blepharitis left upper eyelid Episodic Intestinal obstruction without hernia (15 sources) Small bowel obstruction; 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: [Unspecified intestinal obstruction, unspecified as to partial versus complete obstruction] Onset: 5 07-13-2024 Episodic Joint disorders and dislocations; trauma-related (2 sources) Derangement of left knee; 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: [Unspecified internal derangement of left knee] 01-03-2024 Chronic Joint disorders and dislocations; trauma-related (4 sources) Acute meniscal tear, medial; 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: [Complex tear of medial meniscus, current injury, left knee, initial encounter] 01-24-2024 Episodic Malaise and fatigue (20 sources) Chronic fatigue syndrome; 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: [Chronic fatigue syndrome] Onset: 1 10-05-2022 Chronic Malaise and fatigue (1 source) Other fatigue; 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: [Other fatigue] Onset: 5 Episodic Mood disorders (20 sources) Depressive disorder; 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: [Depression] Onset: 0 09-29-2020 Chronic Multiple myeloma (20 sources) Multiple myeloma; 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: [Multiple myeloma not having achieved remission] Onset: 0 02-04-2020 Chronic Neoplasms of unspecified nature or uncertain behavior (1 source) Neoplasm of unspecified behavior of bone, soft tissue, and skin; 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: [Neoplasm of unspecified behavior of bone, soft tissue, and skin] Onset: 3 Episodic Nutritional deficiencies (20 sources) Malnutrition (calorie); 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: [Moderate protein-calorie malnutrition] Onset: 3 Chronic Osteoarthritis (4 sources) Osteoarthritis of left knee joint; 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: [Unilateral primary osteoarthritis, left knee] 01-24-2024 Chronic Other aftercare (5 sources) Abscess; 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: [Encounter for follow-up examination after completed treatment for conditions other than malignant neoplasm] 12-06-2021 Episodic Other aftercare (1 source) custodial (current) use of aspirin; 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] Onset: 3 Episodic Other aftercare (2 sources) 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; 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: [OTH [facility] CURRENT DRUG THERAPY] Onset: 3 Episodic Other aftercare (1 source) 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; 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: [[facility] USE ORAL HYPOGLYCEMIC DX] Onset: 3 Episodic Other aftercare (1 source) Surgical follow-up; 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: [Encounter for follow-up examination after completed treatment for conditions other than malignant neoplasm] 02-21-2023 Episodic Other bone disease and musculoskeletal deformities (20 sources) Osteochondropathy; 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: [Osteochondropathy, unspecified of unspecified site] Onset: 0 10-05-2022 Chronic Other congenital anomalies (20 sources) Xeroderma; 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, unspecified] Onset: 1 10-04-2020 Chronic Other connective tissue disease (2 sources) Pain of left hand; 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: [Pain in left hand] 06-23-2023 Episodic Other connective tissue disease (6 sources) Triggering of digit; 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: [Trigger finger, left middle finger] 06-23-2023 Episodic Other connective tissue disease (20 sources) Spasm of cervical paraspinous muscle; 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: [Other muscle spasm] Onset: 5 05-24-2024 Episodic Other diseases of kidney and ureters (1 source) Cyst of kidney; 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: [Cyst of kidney, acquired] 02-21-2023 Episodic Other diseases of kidney and ureters (3 sources) Kidney lesion; 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: [Disorder of kidney and ureter, unspecified] 02-25-2023 Episodic Other gastrointestinal disorders (2 sources) Diarrhea, unspecified; 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: [DIARRHEA UNSPECIFIED] Onset: 2 Resolved: 2 Episodic Other gastrointestinal disorders (15 sources) History of diverticulitis; 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: [Personal history of other diseases of the digestive system] Onset: 5 07-12-2024 Episodic Other hereditary and degenerative nervous system conditions (20 sources) Restless legs; 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: [Restless legs syndrome] Onset: 1 09-29-2020 Chronic Other hereditary and degenerative nervous system conditions (1 source) Restless legs syndrome; 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: [RESTLESS LEGS SYNDROME] Onset: 3 Chronic Other liver diseases (14 sources) Cirrhosis of liver; 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: [Other cirrhosis of liver] Onset: 5 07-14-2024 Chronic Other liver diseases (1 source) Hepatomegaly, not elsewhere classified; 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: [HEPATOMEGALY NEC] Onset: 3 Episodic Other nervous system disorders (20 sources) Neuropathy; 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: [Polyneuropathy, unspecified] Onset: 1 09-29-2020 Chronic Other nervous system disorders (20 sources) Pain due to neoplastic disease; 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: [Neoplasm related pain (acute) (chronic)] Onset: 1 09-29-2020 Chronic Other nervous system disorders (20 sources) Chronic pain; 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: [Other chronic pain] Onset: 3 09-09-2022 Chronic Other nervous system disorders (20 sources) Polyneuropathy associated with another disorder; 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: [Polyneuropathy in diseases classified elsewhere] Onset: 3 09-09-2022 Chronic Other nervous system disorders (1 source) Postoperative pain ; 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: [Other acute postprocedural pain] 02-03-2024 Episodic Other non-traumatic joint disorders (4 sources) Pain in left knee; 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: [Pain in joint, lower leg] 01-24-2024 Episodic Other nutritional; endocrine; and metabolic disorders (20 sources) Obese class I; 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: [Obesity, unspecified] Onset: 3 10-08-2022 Chronic Other nutritional; endocrine; and metabolic disorders (20 sources) Obese class II; 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: [Obesity, unspecified] Onset: 3 10-09-2022 Chronic Other nutritional; endocrine; and metabolic disorders (20 sources) Body mass index 30+ - obesity; 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: [Obesity, unspecified] Onset: 1 10-05-2022 Chronic Other nutritional; endocrine; and metabolic disorders (20 sources) Hypomagnesemia; 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: [Hypomagnesemia] Onset: 4 04-24-2024 Chronic Other nutritional; endocrine; and metabolic disorders (5 sources) Obesity caused by energy imbalance; 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: [Other obesity due to excess calories] 02-02-2024 Chronic Other upper respiratory disease (20 sources) Allergic rhinitis; 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: [Allergic rhinitis, unspecified] Onset: 7 10-05-2022 Chronic Other upper respiratory infections (20 sources) Chronic frontal sinusitis; 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: [Chronic frontal sinusitis] Onset: 3 09-09-2022 Chronic Other upper respiratory infections (1 source) Acute sinusitis; 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: [Acute sinusitis, unspecified] Episodic Residual codes; unclassified (20 sources) History of autologous bone marrow transplant; 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: [Bone marrow transplant status] Onset: 1 10-03-2020 Chronic Residual codes; unclassified (1 source) Stem cells transplant status; 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: [STEM CELLS TRANSPLANT STATUS] Onset: 3 Chronic Residual codes; unclassified (1 source) History of bone marrow transplant; 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: [Bone marrow transplant status] 01-27-2024 Chronic Residual codes; unclassified (4 sources) History of arthroscopy of knee joint; 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: [Other specified postprocedural states] 02-14-2024 Episodic Screening and history of mental health and substance abuse codes (1 source) Personal history of nicotine dependence; 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: [PERSONAL HISTORY OF NICOTINE DEPEND] Onset: 3 Episodic Septicemia (except in labor) (2 sources) Sepsis, unspecified organism; 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: [Severe sepsis without septic shock] Onset: 5 Episodic Substance-related disorders (20 sources) Tobacco dependence in remission; 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: [Nicotine dependence, cigarettes, in remission] Onset: 3 09-09-2022 Chronic Unclassified (1 source) COUGH, UNSPECIFIED; 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: [COUGH, UNSPECIFIED] Onset: 3 Unclassified (1 source) CONTACT W/AND (SUSP) EXPOS COVID-19; 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: [CONTACT W/AND (SUSP) EXPOS COVID-19] Onset: 3 Unclassified (1 source) Immunosuppressed due to chemotherapy (HCC); 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: [Immunosuppressed due to chemotherapy (HCC)] Onset: 5 Unclassified (1 source) Acute cough; 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: [Acute cough] Onset: Past or Other Problems Problem Classification Problem Date Documented Da te Episodic/Chronic Abdominal pain (19 sources) Unspecified abdominal pain; 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: [Right lower quadrant pain] Onset: 08-03-2022 Resolved: 07-14-2024 Episodic Acute posthemorrhagic anemia (20 sources) Acute posthemorrhagic anemia; 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: [Acute posthemorrhagic anemia] Onset: 10-08-2022 10-08-2022 Episodic Allergic reactions (2 sources) Dietetic diarrhea; 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: [Other allergic and dietetic gastroenteritis and colitis] Onset: 04-06-2022 Episodic Bacterial infection; unspecified site (20 sources) Community-acquired methicillin-resistant Staphylococcus aureus infection; 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: [Methicillin resistant Staphylococcus aureus infection, unspecified site] Onset: 09-09-2022 Episodic Deficiency and other anemia (20 sources) Normocytic anemia; 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: [Anemia, unspecified] Onset: 04-20-2024 04-24-2024 Episodic Fever of unknown origin (3 sources) Fever, unspecified; 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: [Fever presenting with conditions classified elsewhere] Onset: 08-04-2022 Episodic Fluid and electrolyte disorders (20 sources) Hypokalemia; 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: [Hypokalemia] Onset: 10-04-2020 10-04-2020 Episodic Immunizations and screening for infectious disease (3 sources) Carrier or suspected carrier of Methicillin resistant Staphylococcus aureus; 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: [Patient encounter status] Episodic Mood disorders (20 sources) Mood disorders Onset: 04-26-2024 04-26-2024 Mycoses (20 sources) Candidiasis of mouth; 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: [Candidal stomatitis] Onset: 10-04-2020 10-04-2020 Episodic Nausea and vomiting (20 sources) Nausea; 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: [Nausea] Onset: 09-17-2020 09-29-2020 Episodic Noninfectious gastroenteritis (20 sources) Colitis; 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: [Noninfective gastroenteritis and colitis, unspecified] Onset: 04-21-2024 04-24-2024 Episodic Other aftercare (20 sources) Long-term current use of insulin; 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: [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] Onset: 03-09-2016 09-28-2022 Episodic Other aftercare (1 source) custodial (current) use of insulin; 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: [Encounter for long-term (current) use of insulin (HCC)] Onset: 03-19-2024 Episodic Other and unspecified benign neoplasm (20 sources) History of polyp of colon; 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: [Personal history of colonic polyps] Onset: 07-15-2016 10-05-2022 Episodic Other bone disease and musculoskeletal deformities (12 sources) Lytic lesion of bone on X-ray; 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: [Disorder of bone, unspecified] Onset: 09-09-2022 09-09-2022 Episodic Other bone disease and musculoskeletal deformities (20 sources) Disorder of bone, unspecified; 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: [Disorder of bone and cartilage, unspecified] Onset: 09-09-2022 09-09-2022 Episodic Other circulatory disease (20 sources) Orthostatic hypotension; 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: [Orthostatic hypotension] Onset: 10-04-2020 10-04-2020 Episodic Other connective tissue disease (20 sources) Muscle weakness; 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: [Muscle weakness (generalized)] Onset: 02-18-2021 10-05-2022 Episodic Other connective tissue disease (20 sources) Bicipital tenosynovitis; 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: [Bicipital tendinitis, unspecified shoulder] Onset: 11-01-2013 Resolved: 08-20-2020 08-20-2020 Episodic Other connective tissue disease (20 sources) Weakness of hand; 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: [Other symptoms and signs involving the musculoskeletal system] Onset: 2023 2023 Episodic Other connective tissue disease (20 sources) Hand pain; 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: [Pain in unspecified hand] Onset: 2023 2023 Episodic Other diseases of kidney and ureters (20 sources) Renal impairment; 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: [Disorder of kidney and ureter, unspecified] Onset: 11-11-2020 11-11-2020 Episodic Other diseases of kidney and ureters (2 sources) Disorder of kidney and ureter, unspecified; 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: [Renal lesion] Onset: 04-05-2023 Episodic Other diseases of kidney and ureters (2 sources) Other obstructive and reflux uropathy; 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: [BPH with obstruction/lower urinary tract symptoms] Onset: 04-05-2023 Episodic Other gastrointestinal disorders (20 sources) Constipation; 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: [Constipation, unspecified] Onset: 09-19-2020 09-27-2020 Episodic Other gastrointestinal disorders (20 sources) Occult blood in stools; 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: [Other fecal abnormalities] Onset: 10-04-2020 01-28-2021 Episodic Other gastrointestinal disorders (20 sources) Passing flatus; 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: [Flatulence] Onset: 10-04-2020 10-04-2020 Episodic Other gastrointestinal disorders (20 sources) Diarrhea; 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: [Diarrhea, unspecified] Onset: 09-27-2020 Resolved: 10-04-2020 10-04-2020 Episodic Other inflammatory condition of skin (20 sources) Itching of skin; 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: [Pruritus, unspecified] Onset: 10-04-2020 10-04-2020 Episodic Other inflammatory condition of skin (20 sources) Pruritus, unspecified; 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: [Unspecified pruritic disorder] Onset: 10-04-2020 10-04-2020 Episodic Other liver diseases (20 sources) Liver mass; 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: [Hepatomegaly, not elsewhere classified] Onset: 09-09-2022 Episodic Other liver diseases (20 sources) Elevated liver enzymes level; 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: [Abnormal levels of other serum enzymes] Onset: 09-09-2022 09-09-2022 Episodic Other nervous system disorders (20 sources) Acute postoperative pain; 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: [Other acute postprocedural pain] Onset: 10-08-2022 Episodic Other nutritional; endocrine; and metabolic disorders (20 sources) Decrease in appetite; 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: [Anorexia] Onset: 10-04-2020 Resolved: 01-24-2024 10-04-2020 Episodic Other screening for suspected conditions (not mental disorders or infectious disease) (20 sources) Other specified abnormal findings of blood chemistry; 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: [Other abnormal blood chemistry] Onset: 08-20-2020 08-20-2020 Episodic Other skin disorders (3 sources) Follicular cyst of the skin and subcutaneous tissue, unspecified; 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: [Follicular cyst of the skin and subcutaneous tissue, unspecified] Onset: 12-04-2021 Episodic Residual codes; unclassified (20 sources) At risk for infection; 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: [Other specified personal risk factors, not elsewhere classified] Onset: 10-04-2020 10-04-2020 Episodic Residual codes; unclassified (20 sources) At risk for physiological dysfunction; 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: [Other specified personal risk factors, not elsewhere classified] Onset: 10-04-2020 10-04-2020 Episodic Residual codes; unclassified (20 sources) History of antineoplastic chemotherapy; 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: [Personal history of antineoplastic chemotherapy] Onset: 06-20-2020 10-05-2022 Episodic Residual codes; unclassified (20 sources) Tobacco user; 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: [Tobacco use] Onset: 10-31-2018 Resolved: 01-24-2024 10-05-2022 Episodic Skin and subcutaneous tissue infections (20 sources) Abscess of face; 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: [Cutaneous abscess of face] Onset: 12-06-2021 Resolved: 01-06-2022 01-02-2022 Episodic Spondylosis; intervertebral disc disorders; other back problems (20 sources) Sciatica; 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: [Sciatica, unspecified side] Onset: 10-30-2019 10-05-2022 Episodic Sprains and strains (20 sources) Rupture of tendon of biceps; 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: [Strain of muscle, fascia and tendon of long head of biceps, unspecified arm, initial encounter] Onset: 04-09-2014 Resolved: 08-20-2020 08-20-2020 Episodic Results Test Name Value Interpretation Reference Range Facility [facility] LDH SERPL-CCNCon 025 [facility] LDH SERPL-CCNC 195 U/L 135 - 225 U/L [facility] PHOSPHATE SERPL-MCNCon 0 07-17-2024 [facility] PHOSPHATE SERPL-MCNC 3.3 mg/dL 2.7 - 4.8 mg/dL [facility] URATE SERPL-MCNCon 07-17 [facility] URATE SERPL-MCNC 3.7 mg/dL Low 4.0 - 8 .1 mg/dL [facility] Interpretation and review of laboratory results Abnormal [facility] Specimen Type: BLOOD SPECIMEN Ordering Facility: [facility] Address: [address] [place] [address] Original Ordering Provider: [facility] No Panel Informationon 07-17 Specimen Type: BLOOD SPECIMEN Ordering Facility: [facility] Address: [address] [place] [address] Original Ordering Provider: [facility] Basic metabolic 2000 panelon 07-16-2024 Anion gap [Moles/Vol] 8 mmol/L Normal 8-15 [facility] Comment on above: Order Comment: Speci men Type: BLOOD SPECIMENOrdering Facility: [facility] Address: [address] [place] [address] Performed By: #### 2 4321-2 ####[facility] LABORATORYCLIA [id number] [place] [address] [place] Calcium [Mass/Vol] 9.0 mg/dL Normal 8.5-10.2 [facility] Comment on above: Order Comment: Speci men Type: BLOOD SPECIMENOrdering Facility: [facility] Address: [address] [place] [address] Performed By: #### 2 4321-2 ####[facility] [id number] [place] [address] [place] Chloride [Moles/Vol] 103 mmol/L Normal 98-107 [facility] Comment on above: Order Comment: Speci men Type: BLOOD SPECIMENOrdering Facility: [facility] Address: [address] [place] [address] Performed By: #### 2 4321-2 ####[facility] [id number] [place] [address] [place] CO2 [Moles/Vol] 24 mmol/L Normal 22-30 [facility] Comment on above: Order Comment: Speci men Type: BLOOD SPECIMENOrdering Facility: [facility] Address: [address] [place] [address] Performed By: #### 2 4321-2 ####[facility] LABORATORYIA [id number] [place] [address] [place] Creatinine [Mass/Vol] 1.13 mg/dL Normal 0.73-1.22 [facility] Comment on above: Order Comment: Speci men Type: BLOOD SPECIMENOrdering Facility: [facility] Address: [address] [place] [address] Performed By: #### 2 4321-2 ####[facility] LABORATORYIA [id number] [place] [address] [place] Creatinine and Glomerular filtration rate.predicted panel (S/P/Bld) 69 mL/min/1.73m??? Normal >=60 [facility] Comment on above: Order Comment: Casie early Type: BLOOD SPECIMENOrdering Facility: [facility] Address: [address] [place] [address] Result Comment: Deepthi mated Glomerular Filtration Rate (eGFR) is calculated using the 2020 CKD-EPI creatinine equation. This equation utilizes serum creatinine, sex, and age as parameters. The creatinine assay has traceable calibration to isotope dilution-mass spectrometry. Refer to KDIGO guidelines for clinical interpretation. In patients with unstable renal function, e.g. those with acute kidney injury, the eGFR may not accurately reflect actual GFR. Performed By: #### 2 4321-2 ####[facility] LABORATORYCLIA [id number] [facility] [facility] [place] [address] [place] Glucose [Mass/Vol] 179 mg/dL High 74-99 [facility] Comment on above: Order Comment: Casie early Type: BLOOD SPECIMENOrdering Facility: [facility] Address: [address] [place] [address] Result Comment: The [place] Diabetes Association (ADA) provides guidance for cutoff values for fasting glucose and random glucose. The ADA defines fasting as no caloric intake for at least 8 hours. Fasting plasma glucose results between 100 to 125 mg/dL indicate increased risk for diabetes (prediabetes).Fasting plasma glucose results greater than or equal to 126 mg/dL meet the criteria for diagnosis of diabetes. In the absence of unequivocal hyperglycemia, results should be confirmed by repeat testing. In a patient with classic symptoms of hyperglycemia or hyperglycemic crisis, random plasma glucose results greater than or equal to 200 mg/dL meet the criteria for diagnosis of diabetes.Reference: Standards of Medical Care in Diabetes 2016, [place] [employer]. Diabetes Care. 2016.39(Suppl 1). Performed By: #### 2 4321-2 ####[facility] LABORATORYCLIA [id number] [place] [address] [place] Potassium [Moles/Vol] 4.3 mmol/L Normal 3.7-5.1 [facility] Comment on above: Order Comment: Speci men Type: BLOOD SPECIMENOrdering Facility: [facility] Address: [address] [place] [address] Performed By: #### 2 4321-2 ####[facility] [id number] [facility] [place] [address] [place] Sodium [Moles/Vol] 135 mmol/L Low 136-144 [facility] Comment on above: Order Comment: Speci men Type: BLOOD SPECIMENOrdering Facility: [facility] Address: [address] [place] [address] Performed By: #### 2 4321-2 ####[facility] LABORATORYIA [id number] [place] [address] [place] Urea nitrogen [Mass/Vol] 18 mg/dL Normal 9-24 [facility] Comment on above: Order Comment: Speci men Type: BLOOD SPECIMENOrdering Facility: [facility] Address: [address] [place] [address] Performed By: #### 2 4321-2 ####[facility] [id number] [place] [address] [place] CASE MANAGEMon 07-16-2024 CASE MANAGEM Normal [facility] CASE MANAGEM Normal [facility] CASE MANAGEM Normal [facility] CBC W Auto Differential pane l (Bld)on 07-16-2024 Anisocytosis Ql (Bld) Present Normal [facility] Comment on above: Order Comment: Speci men Type: BLOOD SPECIMENOrdering Facility: [facility] Address: [address] [place] [address] Performed By: #### 5 7021-8 ####[facility] LABORATORYIA [id number] [facility] [place] [address] [place] Basophilic stippling LM Ql (Bld) Occasional Normal [facility] Comment on above: Order Comment: Speci men Type: BLOOD SPECIMENOrdering Facility: [facility] Address: [address] [place] [address] Performed By: #### 5 7021-8 ####[facility] LABORATORYIA [id number] [place] [address] [place] Basophils (Bld) [#/Vol] 0.03 10*3/uL Normal <0.11 [facility] Comment on above: Order Comment: Speci men Type: BLOOD SPECIMENOrdering Facility: [facility] Address: [address] [place] [address] Performed By: #### 5 7021-8 ####[facility] LABORATORYCLIA [id number] [place] [address] [place] Basophils/100 WBC (Bld) 2.0 % Normal [facility] Comment on above: Order Comment: Speci men Type: BLOOD SPECIMENOrdering Facility: [facility] Address: [address] [place] [address] Performed By: #### 5 7021-8 ####[facility] LABORATORYCLIA [id number] [facility] [place] [address] [place] Dacrocytes LM Ql (Bld) Few Normal [facility] Comment on above: Order Comment: Speci men Type: BLOOD SPECIMENOrdering Facility: [facility] Address: [address] [place] [address] Performed By: #### 5 7021-8 ####[facility] LABORATORYIA [id number] [place] [id number] [place] Differential cell count method Nom (Bld) Manual Normal [facility] Comment on above: Order Comment: Speci men Type: BLOOD SPECIMENOrdering Facility: [facility] Address: [address] [place] [address] Performed By: #### 5 7021-8 ####[facility] LABORATORYCLIA [id number] [place] [address] [place] Eosinophils (Bld) [#/Vol] 0.07 10*3/uL Normal <0.46 [facility] Comment on above: Order Comment: Speci men Type: BLOOD SPECIMENOrdering Facility: [facility] Address: [address] [place] [address] Performed By: #### 5 7021-8 ####[facility] LABORATORYCLIA [id number] [place] [address] [place] Eosinophils/100 WBC (Bld) 4.0 % Normal [facility] Comment on above: Order Comment: Speci men Type: BLOOD SPECIMENOrdering Facility: [facility] Address: [address] [place] [address] Performed By: #### 5 7021-8 ####[facility] LABORATORYIA [id number] [place] [id number] [place] Erythrocyte distribution width (RBC) [Ratio] 17.4 % High 11.5-15.0 [facility] Comment on above: Order Comment: Speci men Type: BLOOD SPECIMENOrdering Facility: [facility] Address: [address] [place] [address] Performed By: #### 5 7021-8 ####[facility] [id number] [place] [address] [place] Hematocrit (Bld) [Volume fraction] 25.6 % Low 39.0-51.0 [facility] Comment on above: Order Comment: Speci men Type: BLOOD SPECIMENOrdering Facility: [facility] Address: [address] [place] [address] Performed By: #### 5 7021-8 ####[facility] [id number] [place] [address] [place] Hemoglobin (Bld) [Mass/Vol] 8.3 g/dL Low 13.0-17.0 [facility] Comment on above: Order Comment: Speci men Type: BLOOD SPECIMENOrdering Facility: [facility] Address: [address] [place] [address] Performed By: #### 5 7021-8 ####[facility] LABORATORYIA [id number] [place] [address] [place] Lymphocytes (Bld) [#/Vol] 1.12 10*3/uL Normal 1.00-4.00 [facility] Comment on above: Order Comment: Speci men Type: BLOOD SPECIMENOrdering Facility: [facility] Address: [address] [place] [address] Performed By: #### 5 7021-8 ####[facility] [id number] [place] [id number] [place] Lymphocytes/100 WBC (Bld) 66.0 % Normal [facility] Comment on above: Order Comment: Speci men Type: BLOOD SPECIMENOrdering Facility: [facility] Address: [address] [place] [address] Performed By: #### 5 7021-8 ####[facility] [id number] [address] [place] MCH (RBC) [Entitic mass] 33.9 pg Normal 26.0-34.0 [facility] Comment on above: Order Comment: Speci men Type: BLOOD SPECIMENOrdering Facility: [facility] Address: [address] [place] [address] Performed By: #### 5 7021-8 ####[facility] [id number] [place] [id number] [place] MCHC (RBC) [Mass/Vol] 32.4 g/dL Normal 30.5-36.0 [facility] Comment on above: Order Comment: Speci men Type: BLOOD SPECIMENOrdering Facility: [facility] Address: [address] [place] [address] Performed By: #### 5 7021-8 ####[facility] [id number] [place] [id number] [place] MCV (RBC) [Entitic vol] 104.5 fL High 80.0-100.0 [facility] Comment on above: Order Comment: Speci men Type: BLOOD SPECIMENOrdering Facility: [facility] Address: [address] [place] [address] Performed By: #### 5 7021-8 ####[facility] [id number] [place] [address] [place] Monocytes (Bld) [#/Vol] 0.20 10*3/uL Normal <0.87 [facility] Comment on above: Order Comment: Speci men Type: BLOOD SPECIMENOrdering Facility: [facility] Address: [address] [place] [address] Performed By: #### 5 7021-8 ####[facility] [id number] [place] [address] [place] Monocytes/100 WBC (Bld) 12.0 % Normal [facility] Comment on above: Order Comment: Speci men Type: BLOOD SPECIMENOrdering Facility: [facility] Address: [address] [place] [address] Performed By: #### 5 7021-8 ####[facility] [id number] [place] [address] [place] Neutrophils (Bld) [#/Vol] 0.27 10*3/uL Low 1.45-7.50 [facility] Comment on above: Order Comment: Speci men Type: BLOOD SPECIMENOrdering Facility: [facility] Address: [address] [place] [address] Performed By: #### 5 7021-8 ####[facility] [id number] [address] [place] Neutrophils/100 WBC (Bld) 16.0 % Normal [facility] Comment on above: Order Comment: Speci men Type: BLOOD SPECIMENOrdering Facility: [facility] Address: [address] [place] [address] Performed By: #### 5 7021-8 ####[facility] [id number] [place] [address] [place] Nucleated RBC (Bld) [#/Vol] 10*3/uL Normal <0.01 [facility] Comment on above: Order Comment: Speci men Type: BLOOD SPECIMENOrdering Facility: [facility] Address: [address] [place] [address] Performed By: #### 5 7021-8 ####[facility] LABORATORYIA [id number] [facility] [place] [address] [place] Nucleated RBC/100 WBC (Bld) [Ratio] 0.0 /100 WBC Normal [facility] Comment on above: Order Comment: Speci men Type: BLOOD SPECIMENOrdering Facility: [facility] Address: [address] [place] [address] Performed By: #### 5 7021-8 ####[facility] [id number] [place] [address] [place] Ovalocytes LM Ql (Bld) Few Normal [facility] Comment on above: Order Comment: Speci men Type: BLOOD SPECIMENOrdering Facility: [facility] Address: [address] [place] [address] Performed By: #### 5 7021-8 ####[facility] [id number] [place] [address] [place] Platelet mean volume (Bld) [Entitic vol] 9.3 fL Normal 9.0-12.7 [facility] Comment on above: Order Comment: Speci men Type: BLOOD SPECIMENOrdering Facility: [facility] Address: [address] [place] [address] Performed By: #### 5 7021-8 ####[facility] [id number] [place] [id number] [place] Platelets (Bld) [#/Vol] 64 10*3/uL Low 150-400 [facility] Comment on above: Order Comment: Speci men Type: BLOOD SPECIMENOrdering Facility: [facility] Address: [address] [place] [address] Performed By: #### 5 7021-8 ####[facility] [id number] [place] [address] [place] Platelets Estimate (Bld) [#/Vol] Decreased Normal [facility] Comment on above: Order Comment: Speci men Type: BLOOD SPECIMENOrdering Facility: [facility] Address: [address] [place] [address] Performed By: #### 5 7021-8 ####[facility] [id number] [place] [address] [place] Polychromasia LM Ql (Bld) Slight Normal [facility] Comment on above: Order Comment: Speci men Type: BLOOD SPECIMENOrdering Facility: [facility] Address: [address] [place] [address] Performed By: #### 5 7021-8 ####[facility] LABORATORYCLIA [id number] [place] [address] [place] RBC (Bld) [#/Vol] 2.45 10*6/uL Low 4.20-6.00 [facility] Comment on above: Order Comment: Speci men Type: BLOOD SPECIMENOrdering Facility: [facility] Address: [address] [place] [address] Performed By: #### 5 7021-8 ####[facility] [id number] [facility] [id number] [place] RED CELL MORPH Reviewed: see result s of individual morphologies Normal [facility] Comment on above: Order Comment: Speci men Type: BLOOD SPECIMENOrdering Facility: [facility] Address: [address] [place] [address] Performed By: #### 5 7021-8 ####[facility] LABORATORYIA [id number] [facility] [place] [address] [place] WBC (Bld) [#/Vol] 1.69 10*3/uL Low 3.70-11.00 [facility] Comment on above: Order Comment: Speci men Type: BLOOD SPECIMENOrdering Facility: [facility] Address: [address] [place] [address] Performed By: #### 5 7021-8 ####[facility] LABORATORYIA [id number] [facility] [place] [address] [place] CNDSon 07-16-2024 CNDS [facility] CONSULTon 07-16-2024 CONSULT [facility] CONSULT PROGon 07-16-2024 CONSULT PROG [facility] CBC W Auto Differential pane l (Bld)on 07-15-2024 Anisocytosis Ql (Bld) Present Normal [facility] Comment on above: Order Comment: Speci men Type: BLOOD SPECIMENOrdering Facility: [facility] Address: [address] [place] [address] Performed By: #### 5 7021-8 ####[facility] LABORATORYCLIA [id number] [place] [address] [place] Basophils (Bld) [#/Vol] 0.01 10*3/uL Normal <0.11 [facility] Comment on above: Order Comment: Speci men Type: BLOOD SPECIMENOrdering Facility: [facility] Address: [address] [place] [address] Performed By: #### 5 7021-8 ####[facility] LABORATORYIA [id number] [address] [place] Basophils/100 WBC (Bld) 1.0 % Normal [facility] Comment on above: Order Comment: Speci men Type: BLOOD SPECIMENOrdering Facility: [facility] Address: [address] [place] [address] Performed By: #### 5 7021-8 ####[facility] [id number] [place] [address] [place] Dacrocytes LM Ql (Bld) Few Normal [facility] Comment on above: Order Comment: Speci men Type: BLOOD SPECIMENOrdering Facility: [facility] Address: [address] [place] [address] Performed By: #### 5 7021-8 ####[facility] LABORATORYIA [id number] [place] [address] [place] Differential cell count method Nom (Bld) Manual Normal [facility] Comment on above: Order Comment: Speci men Type: BLOOD SPECIMENOrdering Facility: [facility] Address: [address] [place] [address] Performed By: #### 5 7021-8 ####[facility] LABORATORYCLIA [id number] [place] [address] [place] Eosinophils (Bld) [#/Vol] 0.01 10*3/uL Normal <0.46 [facility] Comment on above: Order Comment: Speci men Type: BLOOD SPECIMENOrdering Facility: [facility] Address: [address] [place] [address] Performed By: #### 5 7021-8 ####[facility] LABORATORYCLIA [id number] [place] [address] [place] Eosinophils/100 WBC (Bld) 1.0 % Normal [facility] Comment on above: Order Comment: Speci men Type: BLOOD SPECIMENOrdering Facility: [facility] Address: [address] [place] [address] Performed By: #### 5 7021-8 ####[facility] [id number] [address] [place] Erythrocyte distribution width (RBC) [Ratio] 17.6 % High 11.5-15.0 [facility] Comment on above: Order Comment: Speci men Type: BLOOD SPECIMENOrdering Facility: [facility] Address: [address] [place] [address] Performed By: #### 5 7021-8 ####[facility] [id number] [address] [place] Hematocrit (Bld) [Volume fraction] 23.3 % Low 39.0-51.0 [facility] Comment on above: Order Comment: Speci men Type: BLOOD SPECIMENOrdering Facility: [facility] Address: [address] [place] [address] Performed By: #### 5 7021-8 ####[facility] LABORATORYIA [id number] [place] [address] [place] Hemoglobin (Bld) [Mass/Vol] 7.7 g/dL Low 13.0-17.0 [facility] Comment on above: Order Comment: Speci men Type: BLOOD SPECIMENOrdering Facility: [facility] Address: [address] [place] [address] Performed By: #### 5 7021-8 ####[facility] LABORATORYIA [id number] [place], [place] [address] [place] [address] [place] Lymphocytes (Bld) [#/Vol] 0.95 10*3/uL Low 1.00-4.00 [facility] Comment on above: Order Comment: Speci men Type: BLOOD SPECIMENOrdering Facility: [facility] Address: [address] [place] [address] Performed By: #### 5 7021-8 ####[facility] [id number] [address] [place] [facility] Lymphocytes/100 WBC (Bld) 62.0 % Normal [facility] Comment on above: Order Comment: Speci men Type: BLOOD SPECIMENOrdering Facility: [facility] Address: [address] [place] [address] Performed By: #### 5 7021-8 ####[facility] [id number] [address] [place] MCH (RBC) [Entitic mass] 34.2 pg High 26.0-34.0 [facility] Comment on above: Order Comment: Speci men Type: BLOOD SPECIMENOrdering Facility: [facility] Address: [address] [place] [address] Performed By: #### 5 7021-8 ####[facility] [id number] [address] [place] MCHC (RBC) [Mass/Vol] 33.0 g/dL Normal 30.5-36.0 [facility] Comment on above: Order Comment: Speci men Type: BLOOD SPECIMENOrdering Facility: [facility] Address: [address] [place] [address] Performed By: #### 5 7021-8 ####[facility] [id number] [place] [id number] [place] MCV (RBC) [Entitic vol] 103.6 fL High 80.0-100.0 [facility] Comment on above: Order Comment: Speci men Type: BLOOD SPECIMENOrdering Facility: [facility] Address: [address] [place] [address] Performed By: #### 5 7021-8 ####[facility] [id number] [place] [address] [place] Monocytes (Bld) [#/Vol] 0.19 10*3/uL Normal <0.87 [facility] Comment on above: Order Comment: Speci men Type: BLOOD SPECIMENOrdering Facility: [facility] Address: [address] [place] [address] Performed By: #### 5 7021-8 ####[facility] [id number] [place] [id number] [place] Monocytes/100 WBC (Bld) 13.0 % Normal [facility] Comment on above: Order Comment: Speci men Type: BLOOD SPECIMENOrdering Facility: [facility] Address: [address] [place] [address] Performed By: #### 5 7021-8 ####[facility] [id number] [place] [id number] [place] Neutrophils (Bld) [#/Vol] 0.29 10*3/uL Low 1.45-7.50 [facility] Comment on above: Order Comment: Speci men Type: BLOOD SPECIMENOrdering Facility: [facility] Address: [address] [place] [address] Performed By: #### 5 7021-8 ####[facility] [id number] [place] [address] [place] Neutrophils/100 WBC (Bld) 20.0 % Normal [facility] Comment on above: Order Comment: Speci men Type: BLOOD SPECIMENOrdering Facility: [facility] Address: [address] [place] [address] Performed By: #### 5 7021-8 ####[facility] LABORATORYIA [id number] [place] [address] [place] Nucleated RBC (Bld) [#/Vol] 10*3/uL Normal <0.01 [facility] Comment on above: Order Comment: Speci men Type: BLOOD SPECIMENOrdering Facility: [facility] Address: [address] [place] [address] Performed By: #### 5 7021-8 ####[facility] LABORATORYCLIA [id number] [place] [address] [place] Nucleated RBC/100 WBC (Bld) [Ratio] 0.0 /100 WBC Normal [facility] Comment on above: Order Comment: Speci men Type: BLOOD SPECIMENOrdering Facility: [facility] Address: [address] [place] [address] Performed By: #### 5 7021-8 ####[facility] LABORATORYIA [id number] [place] [address] [place] Ovalocytes LM Ql (Bld) Few Normal [facility] Comment on above: Order Comment: Speci men Type: BLOOD SPECIMENOrdering Facility: [facility] Address: [address] [place] [address] Performed By: #### 5 7021-8 ####[facility] LABORATORYIA [id number] [place] [address] [place] Platelet mean volume (Bld) [Entitic vol] 10.3 fL Normal 9.0-12.7 [facility] Comment on above: Order Comment: Speci men Type: BLOOD SPECIMENOrdering Facility: [facility] Address: [address] [place] [address] Performed By: #### 5 7021-8 ####[facility] LABORATORYCLIA [id number] [place] [address] [place] Platelets (Bld) [#/Vol] 51 10*3/uL Low 150-400 [facility] Comment on above: Order Comment: Speci men Type: BLOOD SPECIMENOrdering Facility: [facility] Address: [address] [place] [address] Result Comment: No c lot detected. Performed By: #### 5 7021-8 ####[facility] LABORATORYCLIA [id number] [facility] [place] [address] [place] [facility] [place] Platelets Estimate (Bld) [#/Vol] Decreased Normal [facility] Comment on above: Order Comment: Speci men Type: BLOOD SPECIMENOrdering Facility: [facility] Address: [address] [place] [address] Performed By: #### 5 7021-8 ####[facility] LABORATORYIA [id number] [facility] [place] [address] [place] Polychromasia LM Ql (Bld) Slight Normal [facility] Comment on above: Order Comment: Speci men Type: BLOOD SPECIMENOrdering Facility: [facility] Address: [address] [place] [address] Performed By: #### 5 7021-8 ####[facility] [id number] [facility] [place] [address] [place] RBC (Bld) [#/Vol] 2.25 10*6/uL Low 4.20-6.00 [facility] Comment on above: Order Comment: Speci men Type: BLOOD SPECIMENOrdering Facility: [facility] Address: [address] [place] [address] Performed By: #### 5 7021-8 ####[facility] [id number] [facility] [place] [address] [facility] OF [place] RED CELL MORPH Reviewed: see result s of individual morphologies Normal [facility] Comment on above: Order Comment: Speci men Type: BLOOD SPECIMENOrdering Facility: [facility] Address: [address] [place] [address] Performed By: #### 5 7021-8 ####[facility] [id number] [facility] [place] [address] [place] Variant lymphocytes/100 WBC (Bld) 3.0 % Normal [facility] Comment on above: Order Comment: Speci men Type: BLOOD SPECIMENOrdering Facility: [facility] Address: [address] [place] [address] Performed By: #### 5 7021-8 ####[facility] LABORATORYIA [id number] [facility], [place] [address] [place] WBC (Bld) [#/Vol] 1.46 10*3/uL Low 3.70-11.00 [facility] Comment on above: Order Comment: Speci men Type: BLOOD SPECIMENOrdering Facility: [facility] Address: [address] [place] [address] Performed By: #### 5 7021-8 ####[facility] LABORATORYIA [id number] [place] [address] [facility] Comprehensive metabolic 2000 panelon 07-15-2024 Albumin [Mass/Vol] 3.1 g/dL Low 3.9-4.9 [facility] Comment on above: Order Comment: Speci men Type: BLOOD SPECIMENOrdering Facility: [facility] Address: [address] [place] [address] Performed By: #### 2 4323-8 ####[facility] [id number] [place] [address] [place] ALP [Catalytic activity/Vol] 73 U/L Normal 38-113 [facility] Comment on above: Order Comment: Speci men Type: BLOOD SPECIMENOrdering Facility: [facility] Address: [address] [place] [address] Performed By: #### 2 4323-8 ####[facility] [id number] [place] [address] [place] ALT [Catalytic activity/Vol] 42 U/L Normal 10-54 [facility] Comment on above: Order Comment: Speci men Type: BLOOD SPECIMENOrdering Facility: [facility] Address: [address] [place], [place] [address] Performed By: #### 2 4323-8 ####[facility] LABORATORYIA [id number] [place] [address] [place] Anion gap [Moles/Vol] 9 mmol/L Normal 8-15 [facility] Comment on above: Order Comment: Speci men Type: BLOOD SPECIMENOrdering Facility: [facility] Address: [address] [place] [address] Performed By: #### 2 4323-8 ####[facility] LABORATORYCLIA [id number] [place] [address] [place] AST [Catalytic activity/Vol] 37 U/L Normal 14-40 [facility] Comment on above: Order Comment: Speci men Type: BLOOD SPECIMENOrdering Facility: [facility] Address: [address] [place] [address] Performed By: #### 2 4323-8 ####[facility] LABORATORYIA [id number] [place] [address] [place] Bilirubin [Mass/Vol] 0.9 mg/dL Normal 0.2-1.3 [facility] Comment on above: Order Comment: Speci men Type: BLOOD SPECIMENOrdering Facility: [facility] Address: [address] [place] [address] Performed By: #### 2 4323-8 ####[facility] [id number] [place] [address] [place] Calcium [Mass/Vol] 8.2 mg/dL Low 8.5-10.2 [facility] Comment on above: Order Comment: Speci men Type: BLOOD SPECIMENOrdering Facility: [facility] Address: [address] [place] [address] Performed By: #### 2 4323-8 ####[facility]ORATORYIA [id number] [place] [address] [place] Chloride [Moles/Vol] 104 mmol/L Normal 98-107 [facility] Comment on above: Order Comment: Speci men Type: BLOOD SPECIMENOrdering Facility: [facility] Address: [address] [place] [address] Performed By: #### 2 4323-8 ####[facility]ORATORYIA [id number] [place] [address] [place] CO2 [Moles/Vol] 24 mmol/L Normal 22-30 [facility] Comment on above: Order Comment: Casie early Type: BLOOD SPECIMENOrdering Facility: [facility] Address: [address] [place] [address] Performed By: #### 2 4323-8 ####[facility] LABORATORYCLIA [id number] [place] [address] [place] Creatinine [Mass/Vol] 1.03 mg/dL Normal 0.73-1.22 [facility] Comment on above: Order Comment: Casie men Type: BLOOD SPECIMENOrdering Facility: [facility] Address: [address] [place] [address] Performed By: #### 2 4323-8 ####[facility] LABORATORYCLIA [id number] [place] [address] [place] Creatinine and Glomerular filtration rate.predicted panel (S/P/Bld) 78 mL/min/1.73m??? Normal >=60 [facility] Comment on above: Order Comment: Casie early Type: BLOOD SPECIMENOrdering Facility: [facility] Address: [address] [place] [address] Result Comment: Deepthi mated Glomerular Filtration Rate (eGFR) is calculated using the 2020 CKD-EPI creatinine equation. This equation utilizes serum creatinine, sex, and age as parameters. The creatinine assay has traceable calibration to isotope dilution-mass spectrometry. Refer to KDIGO guidelines for clinical interpretation. In patients with unstable renal function, e.g. those with acute kidney injury, the eGFR may not accurately reflect actual GFR. Performed By: #### 2 4323-8 ####[facility] LABORATORYCLIA [id number] [place] [address] [place] Glucose [Mass/Vol] 174 mg/dL High 74-99 [facility] Comment on above: Order Comment: Casie [facility] Type: BLOOD SPECIMENOrdering Facility: [facility] Address: [address] [place] [address] Result Comment: The [place] Diabetes Association (ADA) provides guidance for cutoff values for fasting glucose and random glucose. The ADA defines fasting as no caloric intake for at least 8 hours. Fasting plasma glucose results between 100 to 125 mg/dL indicate increased risk for diabetes (prediabetes).Fasting plasma glucose results greater than or equal to 126 mg/dL meet the criteria for diagnosis of diabetes. In the absence of unequivocal hyperglycemia, results should be confirmed by repeat testing. In a patient with classic symptoms of hyperglycemia or hyperglycemic crisis, random plasma glucose results greater than or equal to 200 mg/dL meet the criteria for diagnosis of diabetes.Reference: Standards of Medical Care in Diabetes 2016, [place] [employer] Association. Diabetes Care. 2016.39(Suppl 1). Performed By: #### 2 4323-8 ####[facility] LABORATORYIA [id number] [place] [address] [place] Potassium [Moles/Vol] 4.0 mmol/L Normal 3.7-5.1 [facility] Comment on above: Order Comment: Casie early Type: BLOOD SPECIMENOrdering Facility: [facility] Address: [address] [place] [address] Performed By: #### 2 4323-8 ####[facility] [id number] [place] [address] [place] Protein [Mass/Vol] 5.9 g/dL Low 6.3-8.0 [facility] Comment on above: Order Comment: Casie early Type: BLOOD SPECIMENOrdering Facility: [facility] Address: [address] [place] [address] Performed By: #### 2 4323-8 ####[facility] [id number] [place] [address] [place] Sodium [Moles/Vol] 137 mmol/L Normal 136-144 [facility] Comment on above: Order Comment: Casie early Type: BLOOD SPECIMENOrdering Facility: [facility] Address: [address] [place] [address] Performed By: #### 2 4323-8 ####[facility] [id number] [place] [address] [place] Urea nitrogen [Mass/Vol] 18 mg/dL Normal 9-24 [facility] Comment on above: Order Comment: Casie early Type: BLOOD SPECIMENOrdering Facility: [facility] Address: [address] [place] [address] Performed By: #### 2 4323-8 ####[facility] [id number] [place] [address] [place] CBC W Auto Differential pane l (Bld)on 07-14-2024 Anisocytosis Ql (Bld) Present Normal [facility] Comment on above: Order Comment: Speci men Type: BLOOD SPECIMENOrdering Facility: [facility] Address: [address] [place] [address] Performed By: #### 5 7021-8 ####[facility] [id number] [place] [address] [place] Basophils (Bld) [#/Vol] 0.03 10*3/uL Normal <0.11 [facility] Comment on above: Order Comment: Speci men Type: BLOOD SPECIMENOrdering Facility: [facility] Address: [address] [place] [address] Performed By: #### 5 7021-8 ####[facility] [id number] [place] [address] [place] Basophils/100 WBC (Bld) 2.0 % Normal [facility] Comment on above: Order Comment: Speci men Type: BLOOD SPECIMENOrdering Facility: [facility] Address: [address] [place] [address] Performed By: #### 5 7021-8 ####[facility] [id number] [place] [address] [place] Dacrocytes LM Ql (Bld) Few Normal [facility] Comment on above: Order Comment: Speci men Type: BLOOD SPECIMENOrdering Facility: [facility] Address: [address] [place] [address] Performed By: #### 5 7021-8 ####[facility]ORATORYIA [id number] [place] [address] [place] Differential cell count method Nom (Bld) Manual Normal [facility] Comment on above: Order Comment: Speci men Type: BLOOD SPECIMENOrdering Facility: [facility] Address: [address] [place] [address] Performed By: #### 5 7021-8 ####[facility] [id number] [place] [address] [place] Eosinophils (Bld) [#/Vol] 0.07 10*3/uL Normal <0.46 [facility] Comment on above: Order Comment: Speci men Type: BLOOD SPECIMENOrdering Facility: [facility] Address: [address] [place] [address] Performed By: #### 5 7021-8 ####[facility] [id number] [place] [id number] [place] Eosinophils/100 WBC (Bld) 5.0 % Normal [facility] Comment on above: Order Comment: Speci men Type: BLOOD SPECIMENOrdering Facility: [facility] Address: [address] [place] [address] Performed By: #### 5 7021-8 ####[facility] [id number] [place] [address] [place] Erythrocyte distribution width (RBC) [Ratio] 17.8 % High 11.5-15.0 [facility] Comment on above: Order Comment: Speci men Type: BLOOD SPECIMENOrdering Facility: [facility] Address: [address] [place] [address] Performed By: #### 5 7021-8 ####[facility] [id number] [place] [address] [place] Hematocrit (Bld) [Volume fraction] 22.9 % Low 39.0-51.0 [facility] Comment on above: Order Comment: Speci men Type: BLOOD SPECIMENOrdering Facility: [facility] Address: [address] [place] [address] Performed By: #### 5 7021-8 ####[facility] LABORATORYIA [id number] [place] [address] [place] Hemoglobin (Bld) [Mass/Vol] 7.7 g/dL Low 13.0-17.0 [facility] Comment on above: Order Comment: Speci men Type: BLOOD SPECIMENOrdering Facility: [facility] Address: [address] [place] [address] Performed By: #### 5 7021-8 ####[facility] LABORATORYIA [id number] [place] [address] [place] Lymphocytes (Bld) [#/Vol] 0.81 10*3/uL Low 1.00-4.00 [facility] Comment on above: Order Comment: Speci men Type: BLOOD SPECIMENOrdering Facility: [facility] Address: [address] [place] [address] Performed By: #### 5 7021-8 ####[facility] [id number] [address] [place] Lymphocytes/100 WBC (Bld) 59.0 % Normal [facility] Comment on above: Order Comment: Speci men Type: BLOOD SPECIMENOrdering Facility: [facility] Address: [address] [place] [address] Performed By: #### 5 7021-8 ####[facility] [id number] [place] [address] [place] MCH (RBC) [Entitic mass] 34.7 pg High 26.0-34.0 [facility] Comment on above: Order Comment: Speci men Type: BLOOD SPECIMENOrdering Facility: [facility] Address: [address] [place] [address] Performed By: #### 5 7021-8 ####[facility] LABORATORYIA [id number] [place] [id number] [place] MCHC (RBC) [Mass/Vol] 33.6 g/dL Normal 30.5-36.0 [facility] Comment on above: Order Comment: Speci men Type: BLOOD SPECIMENOrdering Facility: [facility] Address: [address] [place] [address] Performed By: #### 5 7021-8 ####[facility]ORATORYIA [id number] [place] [address] [place] MCV (RBC) [Entitic vol] 103.2 fL High 80.0-100.0 [facility] Comment on above: Order Comment: Speci men Type: BLOOD SPECIMENOrdering Facility: [facility] Address: [address] [place] [address] Performed By: #### 5 7021-8 ####[facility]ATORYIA [id number] [place] [address] [place] Monocytes (Bld) [#/Vol] 0.13 10*3/uL Normal <0.87 [facility] Comment on above: Order Comment: Speci men Type: BLOOD SPECIMENOrdering Facility: [facility] Address: [address] [place] [address] Performed By: #### 5 7021-8 ####[facility] [id number] [address] [place] Monocytes/100 WBC (Bld) 10.0 % Normal [facility] Comment on above: Order Comment: Speci men Type: BLOOD SPECIMENOrdering Facility: [facility] Address: [address] [place] [address] Performed By: #### 5 7021-8 ####[facility] [id number] [place] [address] [place] Neutrophils (Bld) [#/Vol] 0.29 10*3/uL Low 1.45-7.50 [facility] Comment on above: Order Comment: Speci men Type: BLOOD SPECIMENOrdering Facility: [facility] Address: [address] [place] [address] Performed By: #### 5 7021-8 ####[facility] [id number] [place] [address] [place] Neutrophils/100 WBC (Bld) 22.0 % Normal [facility] Comment on above: Order Comment: Speci men Type: BLOOD SPECIMENOrdering Facility: [facility] Address: [address] [place] [address] Performed By: #### 5 7021-8 ####[facility] [id number] [place] [id number] [place] Nucleated RBC (Bld) [#/Vol] 0.01 10*3/uL High <0.01 [facility] Comment on above: Order Comment: Speci men Type: BLOOD SPECIMENOrdering Facility: [facility] Address: [address] [place] [address] Performed By: #### 5 7021-8 ####[facility] [id number] [place] [id number] [place] Nucleated RBC/100 WBC (Bld) [Ratio] 1.0 /100 WBC Normal [facility] Comment on above: Order Comment: Speci men Type: BLOOD SPECIMENOrdering Facility: [facility] Address: [address] [place] [address] Performed By: #### 5 7021-8 ####[facility] [id number] [place] [address] [place] Ovalocytes LM Ql (Bld) Few [facility] Comment on above: Order Comment: Speci men Type: BLOOD SPECIMENOrdering Facility: [facility] Address: [address] [place] [address] Performed By: #### 5 7021-8 ####[facility] [id number] [place] [id number] [place] Platelet mean volume (Bld) [Entitic vol] 9.5 fL Normal 9.0-12.7 [facility] Comment on above: Order Comment: Speci men Type: BLOOD SPECIMENOrdering Facility: [facility] Address: [address] [place] [address] Performed By: #### 5 7021-8 ####[facility] LABORATORYIA [id number] [place] [address] [place] Platelets (Bld) [#/Vol] 47 10*3/uL Low 150-400 [facility] Comment on above: Order Comment: Speci men Type: BLOOD SPECIMENOrdering Facility: [facility] Address: [address] [place] [address] Result Comment: No c lot detected. Performed By: #### 5 7021-8 ####[facility] [id number] [facility] [place] [address] [place] Platelets Estimate (Bld) [#/Vol] Decreased Normal [facility] Comment on above: Order Comment: Speci men Type: BLOOD SPECIMENOrdering Facility: [facility] Address: [address] [place] [address] Performed By: #### 5 7021-8 ####[facility] [id number] [place] [address] [place] RBC (Bld) [#/Vol] 2.22 10*6/uL Low 4.20-6.00 [facility] Comment on above: Order Comment: Speci men Type: BLOOD SPECIMENOrdering Facility: [facility] Address: [address] [place] [address] Performed By: #### 5 7021-8 ####[facility] [id number] [place] [address] [place] RED CELL MORPH Reviewed: see result s of individual morphologies Normal [facility] Comment on above: Order Comment: Speci men Type: BLOOD SPECIMENOrdering Facility: [facility] Address: [address] [place] [address] Performed By: #### 5 7021-8 ####[facility] [id number] [place] [address] [place] Variant lymphocytes/100 WBC (Bld) 2.0 % Normal [facility] Comment on above: Order Comment: Speci men Type: BLOOD SPECIMENOrdering Facility: [facility] Address: [address] [place] [address] Performed By: #### 5 7021-8 ####[facility]ORATORYIA [id number] [place] [address] [facility] [place] WBC (Bld) [#/Vol] 1.33 10*3/uL Low 3.70-11.00 [facility] Comment on above: Order Comment: Speci men Type: BLOOD SPECIMENOrdering Facility: [facility] Address: [address] [place] [address] Performed By: #### 5 7021-8 ####[facility] LABORATORYCLIA [id number] [place] [address] [facility] Comprehensive metabolic 2000 panelon 07-14-2024 Albumin [Mass/Vol] 3.1 g/dL Low 3.9-4.9 [facility] Comment on above: Order Comment: Speci men Type: BLOOD SPECIMENOrdering Facility: [facility] Address: [address] [place] [address] Performed By: #### 2 4323-8 ####[facility] LABORATORYCLIA [id number] [place] [address] [place] ALP [Catalytic activity/Vol] 72 U/L Normal 38-113 [facility] Comment on above: Order Comment: Speci men Type: BLOOD SPECIMENOrdering Facility: [facility] Address: [address] [place] [address] Performed By: #### 2 4323-8 ####[facility] LABORATORYCLIA [id number] [place] [address] [facility] [place] ALT [Catalytic activity/Vol] 45 U/L Normal 10-54 [facility] Comment on above: Order Comment: Speci men Type: BLOOD SPECIMENOrdering Facility: [facility] Address: [address] [place] [address] Performed By: #### 2 4323-8 ####[facility] LABORATORYCLIA [id number] [place] [address] [place] Anion gap [Moles/Vol] 8 mmol/L Normal 8-15 [facility] Comment on above: Order Comment: Speci men Type: BLOOD SPECIMENOrdering Facility: [facility] Address: [address] [place] [address] Performed By: #### 2 4323-8 ####[facility] LABORATORYIA [id number] [place] [address] [place] AST [Catalytic activity/Vol] 34 U/L Normal 14-40 [facility] Comment on above: Order Comment: Speci men Type: BLOOD SPECIMENOrdering Facility: [facility] Address: [address] [place] [address] Performed By: #### 2 4323-8 ####[facility]ORATORYIA [id number] [place] [address] [place] Bilirubin [Mass/Vol] 1.0 mg/dL Normal 0.2-1.3 [facility] Comment on above: Order Comment: Speci men Type: BLOOD SPECIMENOrdering Facility: [facility] Address: [address] [place] [address] Performed By: #### 2 4323-8 ####[facility] [id number] [place] [address] [place] Calcium [Mass/Vol] 7.8 mg/dL Low 8.5-10.2 [facility] Comment on above: Order Comment: Speci men Type: BLOOD SPECIMENOrdering Facility: [facility] Address: [address] [place] [address] Performed By: #### 2 4323-8 ####[facility] [id number] [place] [address] [place] Chloride [Moles/Vol] 102 mmol/L Normal 98-107 [facility] Comment on above: Order Comment: Speci men Type: BLOOD SPECIMENOrdering Facility: [facility] Address: [address] [place] [address] Performed By: #### 2 4323-8 ####[facility] [id number] [place] [address] [place] CO2 [Moles/Vol] 24 mmol/L Normal 22-30 [facility] Comment on above: Order Comment: Speci men Type: BLOOD SPECIMENOrdering Facility: [facility] Address: [address] [place] [address] Performed By: #### 2 4323-8 ####[facility] LABORATORYCLIA [id number] [place] [address] [place] Creatinine [Mass/Vol] 1.13 mg/dL Normal 0.73-1.22 [facility] Comment on above: Order Comment: Speci nneka Type: BLOOD SPECIMENOrdering Facility: [facility] Address: [address] [place] [address] Performed By: #### 2 4323-8 ####[facility] LABORATORYCLIA [id number] [place] [address] [place] Creatinine and Glomerular filtration rate.predicted panel (S/P/Bld) 69 mL/min/1.73m??? Normal >=60 [facility] Comment on above: Order Comment: Yvonnei [facility] Type: BLOOD SPECIMENOrdering Facility: [facility] Address: [address] [place] [address] Result Comment: Deepthi mated Glomerular Filtration Rate (eGFR) is calculated using the 2020 CKD-EPI creatinine equation. This equation utilizes serum creatinine, sex, and age as parameters. The creatinine assay has traceable calibration to isotope dilution-mass spectrometry. Refer to KDIGO guidelines for clinical interpretation. In patients with unstable renal function, e.g. those with acute kidney injury, the eGFR may not accurately reflect actual GFR. Performed By: #### 2 4323-8 ####[facility] LABORATORYCLIA [id number] [place] [address] [place] Glucose [Mass/Vol] 164 mg/dL High 74-99 [facility] Comment on above: Order Comment: Yvonnei nneka Type: BLOOD SPECIMENOrdering Facility: [facility] Address: [address] [place] [address] Result Comment: The [place] Diabetes Association (ADA) provides guidance for cutoff values for fasting glucose and random glucose. The ADA defines fasting as no caloric intake for at least 8 hours. Fasting plasma glucose results between 100 to 125 mg/dL indicate increased risk for diabetes (prediabetes).Fasting plasma glucose results greater than or equal to 126 mg/dL meet the criteria for diagnosis of diabetes. In the absence of unequivocal hyperglycemia, results should be confirmed by repeat testing. In a patient with classic symptoms of hyperglycemia or hyperglycemic crisis, random plasma glucose results greater than or equal to 200 mg/dL meet the criteria for diagnosis of diabetes.Reference: Standards of Medical Care in Diabetes 2016, [place] [employer]. Diabetes Care. 2016.39(Suppl 1). Performed By: #### 2 4323-8 ####[facility] [id number] [place] [address] [place] Potassium [Moles/Vol] 3.8 mmol/L Normal 3.7-5.1 [facility] Comment on above: Order Comment: Speci men Type: BLOOD SPECIMENOrdering Facility: [facility] Address: [address] [place] [address] Performed By: #### 2 4323-8 ####[facility] [id number] [place] [address] [place] Protein [Mass/Vol] 5.5 g/dL Low 6.3-8.0 [facility] Comment on above: Order Comment: Speci men Type: BLOOD SPECIMENOrdering Facility: [facility] Address: [address] [place] [address] Performed By: #### 2 4323-8 ####[facility] [id number] [place] [address] [place] Sodium [Moles/Vol] 134 mmol/L Low 136-144 [facility] Comment on above: Order Comment: Speci men Type: BLOOD SPECIMENOrdering Facility: [facility] Address: [address] [place] [address] Performed By: #### 2 4323-8 ####[facility] [id number] [place] [address] [place] Urea nitrogen [Mass/Vol] 20 mg/dL Normal 9-24 [facility] Comment on above: Order Comment: Speci men Type: BLOOD SPECIMENOrdering Facility: [facility] Address: [address] [place] [address] Performed By: #### 2 4323-8 ####[facility] LABORATORYCLIA [id number] [facility] [place] [address] [place] Magnesium SerPl-mCncon 07-14 Magnesium [Mass/Vol] 1.9 mg/dL Normal 1.7-2.3 [facility] Comment on above: Order Comment: Speci men Type: BLOOD SPECIMENOrdering Facility: [facility] Address: [address] [place] [address] Performed By: #### 1 9123-9 ####[facility] LABORATORYIA [id number] [facility] [place] [address] [place] CASE MGT INIT ASSESon 2024 CASE MGT INIT [facility] Normal [facility] CBC Pnl Bld Autoon Erythrocyte distribution width (RBC) [Ratio] 18.1 % High 11.5-15.0 [facility] Comment on above: Order Comment: Speci men Type: BLOOD SPECIMENOrdering Facility: [facility] Address: [address] [place] [address] Performed By: #### 5 8410-2, 66767-0 ####[facility] [id number] [place] [address] [place] Hematocrit (Bld) [Volume fraction] 24.6 % Low 39.0-51.0 [facility] Comment on above: Order Comment: Speci men Type: BLOOD SPECIMENOrdering Facility: [facility] Address: [address] [place] [address] Performed By: #### 5 8410-2, 32995-5 ####[facility] [id number] [facility] [place] [address] [place] Hemoglobin (Bld) [Mass/Vol] 8.0 g/dL Low 13.0-17.0 [facility] Comment on above: Order Comment: Speci men Type: BLOOD SPECIMENOrdering Facility: [facility] Address: [address] [place] [address] Performed By: #### 5 8410-2, 56444-0 ####[facility] [id number] [place] [address] [place] MCH (RBC) [Entitic mass] 34.0 pg Normal 26.0-34.0 [facility] Comment on above: Order Comment: Speci men Type: BLOOD SPECIMENOrdering Facility: [facility] Address: [address] [place] [address] Performed By: #### 5 8410-2, 15074-8 ####[facility] [id number] [place] [address] [place] MCHC (RBC) [Mass/Vol] 32.5 g/dL Normal 30.5-36.0 [facility] Comment on above: Order Comment: Speci men Type: BLOOD SPECIMENOrdering Facility: [facility] Address: [address] [place] [address] Performed By: #### 5 8410-2, 79876-4 ####[facility] [id number] [place] [address] [place] MCV (RBC) [Entitic vol] 104.7 fL High 80.0-100.0 [facility] Comment on above: Order Comment: Speci men Type: BLOOD SPECIMENOrdering Facility: [facility] Address: [address] [place] [address] Performed By: #### 5 8410-2, 28460-0 ####[facility] [id number] [place] [address] [place] Platelet mean volume (Bld) [Entitic vol] 8.9 fL Low 9.0-12.7 [facility] Comment on above: Order Comment: Speci men Type: BLOOD SPECIMENOrdering Facility: [facility] Address: [address] [place] [address] Performed By: #### 5 8410-2, 67496-6 ####[facility] [id number] [place] [address] [place] Platelets (Bld) [#/Vol] 52 10*3/uL Low 150-400 [facility] Comment on above: Order Comment: Speci men Type: BLOOD SPECIMENOrdering Facility: [facility] Address: [address] [place] [address] Result Comment: No c lot detected. Performed By: #### 5 8410-2, 80391-5 ####[facility] LABORATORYCLIA [id number] [place] [address] [place] RBC (Bld) [#/Vol] 2.35 10*6/uL Low 4.20-6.00 [facility] Comment on above: Order Comment: Speci men Type: BLOOD SPECIMENOrdering Facility: [facility] Address: [address] [place] [address] Performed By: #### 5 8410-2, 15095-7 ####[facility] [id number] [place] [address] [place] WBC (Bld) [#/Vol] 1.65 10*3/uL Low 3.70-11.00 [facility] Comment on above: Order Comment: Speci men Type: BLOOD SPECIMENOrdering Facility: [facility] Address: [address] [place] [address] Performed By: #### 5 8410-2, 18018-8 ####[facility] [id number] [place] [address] [place] CBC W Auto Differential pane l (Bld)on 07-13-2024 Anisocytosis Ql (Bld) Present Normal [facility] Comment on above: Order Comment: Speci men Type: BLOOD SPECIMENOrdering Facility: [facility] Address: [address] [place] [address] Performed By: #### 5 8410-2, 20324-7 ####[facility] LABORATORYIA [id number] [place] [address] [place] Basophils (Bld) [#/Vol] 0.00 10*3/uL Normal <0.11 [facility] Comment on above: Order Comment: Speci men Type: BLOOD SPECIMENOrdering Facility: [facility] Address: [address] [place] [address] Performed By: #### 5 8410-2, 21455-6 ####[facility] LABORATORYCLIA [id number] [facility] [place] [address] [place] Basophils/100 WBC (Bld) 0.0 % Normal [facility] Comment on above: Order Comment: Speci men Type: BLOOD SPECIMENOrdering Facility: [facility] Address: [address] [place] [address] Performed By: #### 5 8410-2, 56576-9 ####[facility] LABORATORYIA [id number] [place] [id number] [place] Dacrocytes LM Ql (Bld) Few Normal [facility] Comment on above: Order Comment: Speci men Type: BLOOD SPECIMENOrdering Facility: [facility] Address: [address] [place] [address] Performed By: #### 5 8410-2, 26183-2 ####[facility] [id number] [place] [address] [place] Differential cell count method Nom (Bld) Manual Normal [facility] Comment on above: Order Comment: Speci men Type: BLOOD SPECIMENOrdering Facility: [facility] Address: [address] [place] [address] Performed By: #### 5 8410-2, 70363-3 ####[facility] LABORATORYIA [id number] [place] [id number] [place] Eosinophils (Bld) [#/Vol] 0.02 10*3/uL Normal <0.46 [facility] Comment on above: Order Comment: Speci men Type: BLOOD SPECIMENOrdering Facility: [facility] Address: [address] [place] [address] Performed By: #### 5 8410-2, 22185-8 ####[facility] LABORATORYIA [id number] [place] [address] [place] Eosinophils/100 WBC (Bld) 1.0 % Normal [facility] Comment on above: Order Comment: Speci men Type: BLOOD SPECIMENOrdering Facility: [facility] Address: [address] [place] [address] Performed By: #### 5 8410-2, 73298-6 ####[facility] LABORATORYCLIA [id number] [place] [address] [place] Lymphocytes (Bld) [#/Vol] 0.87 10*3/uL Low 1.00-4.00 [facility] Comment on above: Order Comment: Speci men Type: BLOOD SPECIMENOrdering Facility: [facility] Address: [address] [place] [address] Performed By: #### 5 8410-2, 19923-9 ####[facility] LABORATORYCLIA [id number] [place] [address] [place] Lymphocytes/100 WBC (Bld) 53.0 % Normal [facility] Comment on above: Order Comment: Speci men Type: BLOOD SPECIMENOrdering Facility: [facility] Address: [address] [place] [address] Performed By: #### 5 8410-2, 04978-7 ####[facility] [id number] [place] [address] [place] Monocytes (Bld) [#/Vol] 0.15 10*3/uL Normal <0.87 [facility] Comment on above: Order Comment: Speci men Type: BLOOD SPECIMENOrdering Facility: [facility] Address: [address] [place] [address] Performed By: #### 5 8410-2, 93685-5 ####[facility] LABORATORYCLIA [id number] [place] [id number] [place] Monocytes/100 WBC (Bld) 9.0 % Normal [facility] Comment on above: Order Comment: Speci men Type: BLOOD SPECIMENOrdering Facility: [facility] Address: [address] [place] [address] Performed By: #### 5 8410-2, 47873-5 ####[facility] LABORATORYCLIA [id number] [place] [address] [place] Neutrophils (Bld) [#/Vol] 0.61 10*3/uL Low 1.45-7.50 [facility] Comment on above: Order Comment: Speci men Type: BLOOD SPECIMENOrdering Facility: [facility] Address: [address] [place] [address] Performed By: #### 5 8410-2, 40306-1 ####[facility] LABORATORYCLIA [id number] [place] [address] [place] Neutrophils/100 WBC (Bld) 37.0 % Normal [facility] Comment on above: Order Comment: Speci men Type: BLOOD SPECIMENOrdering Facility: [facility] Address: [address] [place] [address] Performed By: #### 5 8410-2, 16233-5 ####[facility] [id number] [place] [address] [place] Nucleated RBC (Bld) [#/Vol] 10*3/uL Normal <0.01 [facility] Comment on above: Order Comment: Speci men Type: BLOOD SPECIMENOrdering Facility: [facility] Address: [address] [place] [address] Performed By: #### 5 8410-2, 72053-2 ####[facility] LABORATORYCLIA [id number] [place] [address] [place] Nucleated RBC/100 WBC (Bld) [Ratio] 0.0 /100 WBC Normal [facility] Comment on above: Order Comment: Speci men Type: BLOOD SPECIMENOrdering Facility: [facility] Address: [address] [place] [address] Performed By: #### 5 8410-2, 59550-7 ####[facility] LABORATORYCLIA [id number] [place] [address] [place] Ovalocytes LM Ql (Bld) Few Normal [facility] Comment on above: Order Comment: Speci men Type: BLOOD SPECIMENOrdering Facility: [facility] Address: [address] [place] [address] Performed By: #### 5 8410-2, 26333-5 ####[facility] LABORATORYCLIA [id number] [facility] [place] [address] [place] Platelets Estimate (Bld) [#/Vol] Decreased Normal [facility] Comment on above: Order Comment: Speci men Type: BLOOD SPECIMENOrdering Facility: [facility] Address: [address] [place] [address] Performed By: #### 5 8410-2, 89865-3 ####[facility] LABORATORYCLIA [id number] [facility] [place] [address] [place] Polychromasia LM Ql (Bld) Slight Normal [facility] Comment on above: Order Comment: Speci men Type: BLOOD SPECIMENOrdering Facility: [facility] Address: [address] [place] [address] Performed By: #### 5 8410-2, 76426-3 ####[facility] [id number] [facility] [place] [address] [place] RED CELL MORPH Reviewed: see result s of individual morphologies Normal [facility] Comment on above: Order Comment: Speci men Type: BLOOD SPECIMENOrdering Facility: [facility] Address: [address] [place] [address] Performed By: #### 5 8410-2, 85718-6 ####[facility] LABORATORYIA [id number] [facility] [place] [address] [place] CBC panel Auto (Bld)on 07-13 Nucleated RBC (Bld) [#/Vol] 0.02 10*3/uL High <0.01 [facility] Comment on above: Order Comment: Speci men Type: BLOOD SPECIMENOrdering Facility: [facility] Address: [address] [place] [address] Performed By: #### 5 8410-2, 03199-8 ####[facility] LABORATORYIA [id number] [facility] [place] [address] [facility] [place] CONSULTon 07-13-2024 CONSULT Normal [facility] CONSULT Normal [facility] CRP SerPl-mCncon 07-13-2024 CRP [Mass/Vol] 0.4 mg/dL Normal <0.9 [facility] Comment on above: Order Comment: Speci men Type: BLOOD SPECIMENOrdering Facility: [facility] Address: [address] [place], [place] [address] Performed By: #### 2 4323-8, 27689-1, , 1987-09 ####[facility] LABORATORYCLIA [id number] [facility] [place] [address] [facility] Comprehensive metabolic 2000 panelon 07-13-2024 Albumin [Mass/Vol] 3.1 g/dL Low 3.9-4.9 [facility] Comment on above: Order Comment: Speci men Type: BLOOD SPECIMENOrdering Facility: [facility] Address: [address] [place], [place] [address] Performed By: #### 2 432-8, , , 1987-09 ####[facility] LABORATORYCLIA [id number] [place] [address] [place] ALP [Catalytic activity/Vol] 71 U/L Normal 38-113 [facility] Comment on above: Order Comment: Speci men Type: BLOOD SPECIMENOrdering Facility: [facility] Address: [address] [place] [address] Performed By: #### 2 4323-8, , , 1987-09 ####[facility] LABORATORYCLIA [id number] [facility] [place] [address] [place] ALT [Catalytic activity/Vol] 50 U/L Normal 10-54 [facility] Comment on above: Order Comment: Speci men Type: BLOOD SPECIMENOrdering Facility: [facility] Address: [address] [place], [place] [address] Performed By: #### 2 4323-8, 79066-0, , 1987-09 ####[facility] LABORATORYCLIA [id number] [place] [address] [place] Anion gap [Moles/Vol] 9 mmol/L Normal 8-15 [facility] Comment on above: Order Comment: Speci men Type: BLOOD SPECIMENOrdering Facility: [facility] Address: [address] [place] [address] Performed By: #### 2 4323-8, , , 1987-09 ####[facility] LABORATORYCLIA [id number] [place] [address] [place] AST [Catalytic activity/Vol] 35 U/L Normal 14-40 [facility] Comment on above: Order Comment: Speci men Type: BLOOD SPECIMENOrdering Facility: [facility] Address: [address] [place] [address] Performed By: #### 2 4323-8, , , 1987-09 ####[facility] [id number] [place] [address] [place] Bilirubin [Mass/Vol] 0.9 mg/dL Normal 0.2-1.3 [facility] Comment on above: Order Comment: Speci men Type: BLOOD SPECIMENOrdering Facility: [facility] Address: [address] [place] [address] Performed By: #### 2 4323-8, , , 1987-09 ####[facility] LABORATORYIA [id number] [place] [address] [place] Calcium [Mass/Vol] 7.8 mg/dL Low 8.5-10.2 [facility] Comment on above: Order Comment: Speci men Type: BLOOD SPECIMENOrdering Facility: [facility] Address: [address] [place] [address] Performed By: #### 2 4323-8, , , 1987-09 ####[facility] LABORATORYIA [id number] [place] [address] [place] Chloride [Moles/Vol] 105 mmol/L Normal 98-107 [facility] Comment on above: Order Comment: Speci men Type: BLOOD SPECIMENOrdering Facility: [facility] Address: [facility] [place] [address] Performed By: #### 2 4323-8, 90163-9, 42991-0, 1987-09 ####[facility] LABORATORYCLIA [id number] [place] [address] [place] CO2 [Moles/Vol] 24 mmol/L Normal 22-30 [facility] Comment on above: Order Comment: Speci men Type: BLOOD SPECIMENOrdering Facility: [facility] Address: [address] [place], [place] [address] Performed By: #### 2 4323-8, , , 1987-09 ####[facility] LABORATORYCLIA [id number] [place] [address] [place] Creatinine [Mass/Vol] 1.21 mg/dL Normal 0.73-1.22 [facility] Comment on above: Order Comment: Speci men Type: BLOOD SPECIMENOrdering Facility: [facility] Address: [address] [place] [address] Performed By: #### 2 4323-8, , , 1987-09 ####[facility] LABORATORYCLIA [id number] [place] [address] [place] Creatinine and Glomerular filtration rate.predicted panel (S/P/Bld) 64 mL/min/1.73m??? Normal >=60 [facility] Comment on above: Order Comment: Speci men Type: BLOOD SPECIMENOrdering Facility: [facility] Address: [address] [place] [address] Result Comment: Deepthi mated Glomerular Filtration Rate (eGFR) is calculated using the 2020 CKD-EPI creatinine equation. This equation utilizes serum creatinine, sex, and age as parameters. The creatinine assay has traceable calibration to isotope dilution-mass spectrometry. Refer to KDIGO guidelines for clinical interpretation. In patients with unstable renal function, e.g. those with acute kidney injury, the eGFR may not accurately reflect actual GFR. Performed By: #### 2 4323-8, , , 1987-09 ####[facility] LABORATORYCLIA [id number] [place] [address] [place] Glucose [Mass/Vol] 182 mg/dL High 74-99 [facility] Comment on above: Order Comment: Casie early Type: BLOOD SPECIMENOrdering Facility: [facility] Address: [address] [place], [place] [address] Result Comment: The [place] Diabetes Association (ADA) provides guidance for cutoff values for fasting glucose and random glucose. The ADA defines fasting as no caloric intake for at least 8 hours. Fasting plasma glucose results between 100 to 125 mg/dL indicate increased risk for diabetes (prediabetes).Fasting plasma glucose results greater than or equal to 126 mg/dL meet the criteria for diagnosis of diabetes. In the absence of unequivocal hyperglycemia, results should be confirmed by repeat testing. In a patient with classic symptoms of hyperglycemia or hyperglycemic crisis, random plasma glucose results greater than or equal to 200 mg/dL meet the criteria for diagnosis of diabetes.Reference: Standards of Medical Care in Diabetes 2016, [place] [employer]. Diabetes Care. 2016.39(Suppl 1). Performed By: #### 2 4323-8, , , 1987-09 ####[facility] LABORATORYCLIA [id number] [place] [address] [place] Potassium [Moles/Vol] 4.1 mmol/L Normal 3.7-5.1 [facility] Comment on above: Order Comment: Casie early Type: BLOOD SPECIMENOrdering Facility: [facility] Address: [address] [place] [address] Performed By: #### 2 4323-8, , , 1987-09 ####[facility] LABORATORYCLIA [id number] [place] [address] [place] Protein [Mass/Vol] 5.4 g/dL Low 6.3-8.0 [facility] Comment on above: Order Comment: Casie early Type: BLOOD SPECIMENOrdering Facility: [facility] Address: [address] [place] [address] Performed By: #### 2 4323-8, 43216-7, 01238-8, 1987-09 ####[facility] [id number] [place] [address] [place] Sodium [Moles/Vol] 138 mmol/L Normal 136-144 [facility] Comment on above: Order Comment: Speci men Type: BLOOD SPECIMENOrdering Facility: [facility] Address: [address] [place], [place] [address] Performed By: #### 2 4323-8, 45699-9, 54911-9, 1987-09 ####[facility] LABORATORYCLIA [id number] [place] [address] [place] Urea nitrogen [Mass/Vol] 29 mg/dL High 9-24 [facility] Comment on above: Order Comment: Speci men Type: BLOOD SPECIMENOrdering Facility: [facility] Address: [address] [place], [place] [address] Performed By: #### 2 4323-8, 82698-8, 12998-8, 1987-09 ####[facility] [id number] [place] [address] [place] ECG COMPLETEon 07-13-2024 ECG COMPLETE Normal [facility] Lactate (Bld) [Moles/Vol]on 07-13-2024 Lactate [Moles/Vol] 2.0 mmol/L Normal 0.5-2.2 [facility] Comment on above: Order Comment: Speci men Type: BLOOD SPECIMENOrdering Facility: [facility] Address: [address] [place], [place] [address] Performed By: #### 3 2693-4 ####[facility] LABORATORYIA [id number] [place] [address] [place] Magnesium SerPl-mCncon 07-13 Magnesium [Mass/Vol] 1.8 mg/dL Normal 1.7-2.3 [facility] Comment on above: Order Comment: Speci men Type: BLOOD SPECIMENOrdering Facility: [facility] Address: [address] [place] [address] Performed By: #### 2 4323-8, 61008-9, 14017-3, 1987-09 ####[facility] HELENACLIA [id number] [place] [address] [place] Procalcitonin SerPl-mCncon 0 07-13-2024 Procalcitonin [Mass/Vol] 0.26 ng/mL High <0.09 [facility] Comment on above: Order Comment: Speci men Type: BLOOD SPECIMENOrdering Facility: [facility] Address: [address] [place] [address] Result Comment: For a guided interpretation of test results, please visit the Change in Procalcitonin Calculator, [email or web address]. Performed By: #### 2 4323-8, 17228-6, 27976-6, 1987-09 ####[facility] LABORATORYCLIA [id number] [facility] [place] [address] [place] Bacteria Bld Culton 07-13-19 25 Bacteria identified Cx Nom (Bld) CULTURE, BLOOD: No growth 5 days Normal [facility] Comment on above: Performed By: #### 6 00-7 ####[facility] LABCLIA [id number] [address] [address] [place] Bacteria identified Cx Nom (Bld) CULTURE, BLOOD: No growth 5 days Normal [facility] Comment on above: Performed By: #### 6 00-7 ####[facility] LABCLIA [id number] [address] [address] [place] CBC W Auto Differential pane l (Bld)on 07-12-2024 Anisocytosis Ql (Bld) Present Normal [facility] Comment on above: Order Comment: Speci men Type: BLOOD SPECIMENOrdering Facility: [facility] Address: [address] [place] [address] Performed By: #### 5 7021-8 ####[facility] LABORATORYCLIA [id number] [place] [address] [place] Basophils (Bld) [#/Vol] 0.02 10*3/uL Normal <0.11 [facility] Comment on above: Order Comment: Speci men Type: BLOOD SPECIMENOrdering Facility: [facility] Address: [address] [place] [address] Performed By: #### 5 7021-8 ####[facility] LABORATORYCLIA [id number] [facility] [place] [address] [place] Basophils/100 WBC (Bld) 1.0 % Normal [facility] Comment on above: Order Comment: Speci men Type: BLOOD SPECIMENOrdering Facility: [facility] Address: [address] [place] [address] Performed By: #### 5 7021-8 ####[facility] [id number] [place] [address] [place] Dacrocytes LM Ql (Bld) Few Normal [facility] Comment on above: Order Comment: Speci men Type: BLOOD SPECIMENOrdering Facility: [facility] Address: [address] [place] [address] Performed By: #### 5 7021-8 ####[facility] [id number] [place] [address] [place] Differential cell count method Nom (Bld) Manual Normal [facility] Comment on above: Order Comment: Speci men Type: BLOOD SPECIMENOrdering Facility: [facility] Address: [address] [place] [address] Performed By: #### 5 7021-8 ####[facility] [id number] [place] [address] [place] Eosinophils (Bld) [#/Vol] 0.06 10*3/uL Normal <0.46 [facility] Comment on above: Order Comment: Speci men Type: BLOOD SPECIMENOrdering Facility: [facility] Address: [address] [place] [address] Performed By: #### 5 7021-8 ####[facility] LABORATORYIA [id number] [place] [address] [place] Eosinophils/100 WBC (Bld) 3.0 % Normal [facility] Comment on above: Order Comment: Speci men Type: BLOOD SPECIMENOrdering Facility: [facility] Address: [address] [place] [address] Performed By: #### 5 7021-8 ####[facility] LABORATORYIA [id number] [place] [address] [place] Erythrocyte distribution width (RBC) [Ratio] 17.9 % High 11.5-15.0 [facility] Comment on above: Order Comment: Speci men Type: BLOOD SPECIMENOrdering Facility: [facility] Address: [address] [place] [address] Performed By: #### 5 7021-8 ####[facility] [id number] [place] [id number] [place] Hematocrit (Bld) [Volume fraction] 29.5 % Low 39.0-51.0 [facility] Comment on above: Order Comment: Speci men Type: BLOOD SPECIMENOrdering Facility: [facility] Address: [address] [place] [address] Performed By: #### 5 7021-8 ####[facility] [id number] [place] [address] [place] Hemoglobin (Bld) [Mass/Vol] 9.5 g/dL Low 13.0-17.0 [facility] Comment on above: Order Comment: Speci men Type: BLOOD SPECIMENOrdering Facility: [facility] Address: [address] [place] [address] Performed By: #### 5 7021-8 ####[facility] [id number] [place] [address] [place] Lymphocytes (Bld) [#/Vol] 1.09 10*3/uL Normal 1.00-4.00 [facility] Comment on above: Order Comment: Speci men Type: BLOOD SPECIMENOrdering Facility: [facility] Address: [address] [place] [address] Performed By: #### 5 7021-8 ####[facility] [id number] [address] [place] Lymphocytes/100 WBC (Bld) 55.0 % Normal [facility] Comment on above: Order Comment: Speci men Type: BLOOD SPECIMENOrdering Facility: [facility] Address: [address] [place] [address] Performed By: #### 5 7021-8 ####[facility] [id number] [place] [address] [place] MCH (RBC) [Entitic mass] 33.5 pg Normal 26.0-34.0 [facility] Comment on above: Order Comment: Speci men Type: BLOOD SPECIMENOrdering Facility: [facility] Address: [address] [place] [address] Performed By: #### 5 7021-8 ####[facility] [id number] [place] [address] [place] MCHC (RBC) [Mass/Vol] 32.2 g/dL Normal 30.5-36.0 [facility] Comment on above: Order Comment: Speci men Type: BLOOD SPECIMENOrdering Facility: [facility] Address: [address] [place] [address] Performed By: #### 5 7021-8 ####[facility] [id number] [place] [address] [place] MCV (RBC) [Entitic vol] 103.9 fL High 80.0-100.0 [facility] Comment on above: Order Comment: Speci men Type: BLOOD SPECIMENOrdering Facility: [facility] Address: [address] [place] [address] Performed By: #### 5 7021-8 ####[facility] [id number] [place] [address] [place] Monocytes (Bld) [#/Vol] 0.12 10*3/uL Normal <0.87 [facility] Comment on above: Order Comment: Speci men Type: BLOOD SPECIMENOrdering Facility: [facility] Address: [address] [place] [address] Performed By: #### 5 7021-8 ####[facility] LABORATORYCLIA [id number] [place] [address] [place] Monocytes/100 WBC (Bld) 6.0 % Normal [facility] Comment on above: Order Comment: Speci men Type: BLOOD SPECIMENOrdering Facility: [facility] Address: [address] [place] [address] Performed By: #### 5 7021-8 ####[facility] [id number] [place] [address] [place] Neutrophils (Bld) [#/Vol] 0.69 10*3/uL Low 1.45-7.50 [facility] Comment on above: Order Comment: Speci men Type: BLOOD SPECIMENOrdering Facility: [facility] Address: [address] [place] [address] Performed By: #### 5 7021-8 ####[facility] [id number] [place] [id number] [place] Neutrophils/100 WBC (Bld) 35.0 % Normal [facility] Comment on above: Order Comment: Speci men Type: BLOOD SPECIMENOrdering Facility: [facility] Address: [address] [place] [address] Performed By: #### 5 7021-8 ####[facility] LABORATORYIA [id number] [place] [address] [place] Nucleated RBC (Bld) [#/Vol] 0.02 10*3/uL High <0.01 [facility] Comment on above: Order Comment: Speci men Type: BLOOD SPECIMENOrdering Facility: [facility] Address: [address] [place] [address] Performed By: #### 5 7021-8 ####[facility] LABORATORYIA [id number] [facility] [place], [place] [id number] [place] [address] [place] Nucleated RBC/100 WBC (Bld) [Ratio] 1.0 /100 WBC Normal [facility] Comment on above: Order Comment: Speci men Type: BLOOD SPECIMENOrdering Facility: [facility] Address: [address] [place] [address] Performed By: #### 5 7021-8 ####[facility] LABORATORYIA [id number] [place] [address] [place] Ovalocytes LM Ql (Bld) Few Normal [facility] Comment on above: Order Comment: Speci men Type: BLOOD SPECIMENOrdering Facility: [facility] Address: [address] [place] [address] Performed By: #### 5 7021-8 ####[facility] [id number] [place] [address] [place] Platelet mean volume (Bld) [Entitic vol] 10.9 fL Normal 9.0-12.7 [facility] Comment on above: Order Comment: Speci men Type: BLOOD SPECIMENOrdering Facility: [facility] Address: [address] [place] [address] Performed By: #### 5 7021-8 ####[facility] [id number] [address] [place] Platelets (Bld) [#/Vol] 82 10*3/uL Low 150-400 [facility] Comment on above: Order Comment: Speci men Type: BLOOD SPECIMENOrdering Facility: [facility] Address: [address] [place] [address] Result Comment: No c lot detected. Performed By: #### 5 7021-8 ####[facility] [id number] [address] [place] Platelets Estimate (Bld) [#/Vol] Decreased Normal [facility] Comment on above: Order Comment: Speci men Type: BLOOD SPECIMENOrdering Facility: [facility] Address: [address] [place] [address] Performed By: #### 5 7021-8 ####[facility] LABORATORYCLIA [id number] [facility] [place], [place] [id number] [place] [address] [place] Polychromasia LM Ql (Bld) Slight Normal [facility] Comment on above: Order Comment: Speci men Type: BLOOD SPECIMENOrdering Facility: [facility] Address: [address] [place] [address] Performed By: #### 5 7021-8 ####[facility] LABORATORYCLIA [id number] [facility] [place] [address] [place] RBC (Bld) [#/Vol] 2.84 10*6/uL Low 4.20-6.00 [facility] Comment on above: Order Comment: Speci men Type: BLOOD SPECIMENOrdering Facility: [facility] Address: [address] [place] [address] Performed By: #### 5 7021-8 ####[facility] LABORATORYCLIA [id number] [facility] [place] RED CELL MORPH Reviewed: see result s of individual morphologies Normal [facility] Comment on above: Order Comment: Speci men Type: BLOOD SPECIMENOrdering Facility: [facility] Address: [address] [place] [address] Performed By: #### 5 7021-8 ####[facility] LABORATORYIA [id number] [place] [address] [place] WBC (Bld) [#/Vol] 1.98 10*3/uL Low 3.70-11.00 [facility] Comment on above: Order Comment: Speci men Type: BLOOD SPECIMENOrdering Facility: [facility] Address: [address] [place] [address] Performed By: #### 5 7021-8 ####[facility] LABORATORYIA [id number] [facility] [place] [address] [place] CT ABD/PEL W IVCONon 025 CT [facility] 2000 panelon 07-12-2024 Albumin [Mass/Vol] 3.5 g/dL Low 3.9-4.9 [facility] Comment on above: Order Comment: Speci men Type: BLOOD SPECIMENOrdering Facility: [facility] Address: [address] [place] [address] Performed By: #### 2 4322-12, ####[facility] LABORATORYCLIA [id number] [place] [address] [place] ALP [Catalytic activity/Vol] 95 U/L Normal 38-113 [facility] Comment on above: Order Comment: Speci men Type: BLOOD SPECIMENOrdering Facility: [facility] Address: [address] [place] [address] Performed By: #### 2 4322-12, ####[facility] LABORATORYCLIA [id number] [place] [address] [place] ALT [Catalytic activity/Vol] 58 U/L High 10-54 [facility] Comment on above: Order Comment: Speci men Type: BLOOD SPECIMENOrdering Facility: [facility] Address: [address] [place] [address] Performed By: #### 2 4322-12, ####[facility] LABORATORYCLIA [id number] [place] [address] [place] Anion gap [Moles/Vol] 12 mmol/L Normal 8-15 [facility] Comment on above: Order Comment: Speci men Type: BLOOD SPECIMENOrdering Facility: [facility] Address: [address] [place] [address] Performed By: #### 2 8, ####[facility] LABORATORYCLIA [id number] [place] [address] [place] AST [Catalytic activity/Vol] 47 U/L High 14-40 [facility] Comment on above: Order Comment: Speci men Type: BLOOD SPECIMENOrdering Facility: [facility] Address: [address] [place] [address] Performed By: #### 2 4322-12, ####[facility] LABORATORYCLIA [id number] [place] [address] [place] Bilirubin [Mass/Vol] 0.7 mg/dL Normal 0.2-1.3 [facility] Comment on above: Order Comment: Speci men Type: BLOOD SPECIMENOrdering Facility: [facility] Address: [address] [place] [address] Performed By: #### 2 4322-12, ####[facility] LABORATORYCLIA [id number] [place] [address] [place] Calcium [Mass/Vol] 8.8 mg/dL Normal 8.5-10.2 [facility] Comment on above: Order Comment: Speci men Type: BLOOD SPECIMENOrdering Facility: [facility] Address: [address] [place] [address] Performed By: #### 2 4322-12, ####[facility] LABORATORYIA [id number] [place] [address] [place] Chloride [Moles/Vol] 99 mmol/L Normal 98-107 [facility] Comment on above: Order Comment: Speci men Type: BLOOD SPECIMENOrdering Facility: [facility] Address: [address] [place] [address] Performed By: #### 2 4322-12, ####[facility] LABORATORYCLIA [id number] [place] [address] [place] CO2 [Moles/Vol] 25 mmol/L Normal 22-30 [facility] Comment on above: Order Comment: Speci men Type: BLOOD SPECIMENOrdering Facility: [facility] Address: [address] [place], [place] [address] Performed By: #### 2 4322-12, ####[facility] LABORATORYCLIA [id number] [place] [address] [place] Creatinine [Mass/Vol] 1.25 mg/dL High 0.73-1.22 [facility] Comment on above: Order Comment: Speci men Type: BLOOD SPECIMENOrdering Facility: [facility] Address: [address] [place] [address] Performed By: #### 2 4323-8, ####[facility] LABORATORYCLIA [id number] [place] [address] [place] Creatinine and Glomerular filtration rate.predicted panel (S/P/Bld) 62 mL/min/1.73m??? Normal >=60 [facility] Comment on above: Order Comment: Casie early Type: BLOOD SPECIMENOrdering Facility: [facility] Address: [address] [place] [address] Result Comment: Deepthi mated Glomerular Filtration Rate (eGFR) is calculated using the 2020 CKD-EPI creatinine equation. This equation utilizes serum creatinine, sex, and age as parameters. The creatinine assay has traceable calibration to isotope dilution-mass spectrometry. Refer to KDIGO guidelines for clinical interpretation. In patients with unstable renal function, e.g. those with acute kidney injury, the eGFR may not accurately reflect actual GFR. Performed By: #### 2 4323-8, 64787-9 ####[facility] LABORATORYCLIA [id number] [facility] [place] [address] [place] Glucose [Mass/Vol] 353 mg/dL High 74-99 [facility] Comment on above: Order Comment: Casie early Type: BLOOD SPECIMENOrdering Facility: [facility] Address: [address] [place] [address] Result Comment: The [place] [employer] (ADA) provides guidance for cutoff values for fasting glucose and random glucose. The ADA defines fasting as no caloric intake for at least 8 hours. Fasting plasma glucose results between 100 to 125 mg/dL indicate increased risk for diabetes (prediabetes).Fasting plasma glucose results greater than or equal to 126 mg/dL meet the criteria for diagnosis of diabetes. In the absence of unequivocal hyperglycemia, results should be confirmed by repeat testing. In a patient with classic symptoms of hyperglycemia or hyperglycemic crisis, random plasma glucose results greater than or equal to 200 mg/dL meet the criteria for diagnosis of diabetes.Reference: Standards of Medical Care in Diabetes 2016, [place] [employer]. Diabetes Care. 2016.39(Suppl 1). Performed By: #### 2 432-8, ####[facility] LABORATORYCLIA [id number] [place] [address] [place] Potassium [Moles/Vol] 4.1 mmol/L Normal 3.7-5.1 [facility] Comment on above: Order Comment: Speci men Type: BLOOD SPECIMENOrdering Facility: [facility] Address: [address] [place] [address] Performed By: #### 2 4322-12, ####[facility] LABORATORYCLIA [id number] [place] [address] [place] Protein [Mass/Vol] 6.6 g/dL Normal 6.3-8.0 [facility] Comment on above: Order Comment: Speci men Type: BLOOD SPECIMENOrdering Facility: [facility] Address: [address] [place] [address] Performed By: #### 2 43207-14, ####[facility] [id number] [place] [address] [place] Sodium [Moles/Vol] 136 mmol/L Normal 136-144 [facility] Comment on above: Order Comment: Speci men Type: BLOOD SPECIMENOrdering Facility: [facility] Address: [address] [place] [address] Performed By: #### 2 43207-14, ####[facility] LABORATORYCLIA [id number] [place] [address] [place] Urea nitrogen [Mass/Vol] 29 mg/dL High 9-24 [facility] Comment on above: Order Comment: Speci men Type: BLOOD SPECIMENOrdering Facility: [facility] Address: [address] [place] [address] Performed By: #### 2 432-8, ####[facility] LABORATORYCLIA [id number] [place] [address] [place] ED NOTEon 07-12-2024 ED NOTE Normal [facility] ED PROV NOTEon 07-12-2024 ED PROV NOTE Normal [facility] ED Triage Noteon 07-12-2024 ED Triage Note Normal [facility] HIGH SENSITIVITY TROPONIN T (INITIAL)on 07-12-2024 Troponin T.cardiac High sensitivity method [Mass/Vol] 48 ng/L High <[address] [place] [address] Comment on above: Order Comment: Speci men Type: BLOOD SPECIMENOrdering Facility: [facility] Address: [address] [place] [address] Performed By: #### L [id number] ####[facility] LABORATORYCLIA [id number] [place] [address] [place] HIGH SENSITIVITY TROPONIN T (SECOND)on 07-12-2024 Troponin T.cardiac High sensitivity method [Mass/Vol] 51 ng/L High <[address] [place] [address] Comment on above: Order Comment: Speci men Type: BLOOD SPECIMENOrdering Facility: [facility] Address: [address] [place] [address] Performed By: #### L [id number] ####[facility] [id number] [place] [address] [place] HIGH SENSITIVITY TROPONIN T (THIRD) 3 HRS AFTER INITIALon 07-12-2024 Troponin T.cardiac High sensitivity method [Mass/Vol] 51 ng/L High <[address] [place] [address] Comment on above: Order Comment: Speci men Type: BLOOD SPECIMENOrdering Facility: [facility] Address: [address] [place] [address] Performed By: #### L [id number] ####[facility] [id number] [place] [address] [place] HISTORY PHYSICALon HISTORY PHYSICAL Normal [facility] Magnesium SerPl-mCncon 07-12 Magnesium [Mass/Vol] 1.7 mg/dL Normal 1.7-2.3 [facility] Comment on above: Order Comment: Speci men Type: BLOOD SPECIMENOrdering Facility: [facility] Address: [address] [place] [address] Performed By: #### 2 4323-8, 57700-3 ####[facility] LABORATORYCLIA [id number] [place] [address] [place] PT panel Coag (PPP)on 2024 INR Coag (PPP) [Relative time] 1.1 {INR} Normal 0.9-1.3 [facility] Comment on above: Order Comment: Speci nneka Type: BLOOD SPECIMENOrdering Facility: [facility] Address: [address] [place] [address] Result Comment: Lori min K Antagonist (VKA) Therapeutic Range: INR 2 to 3 (Target INR of 2.5)Note: For patients treated with VKA drugs, such as warfarin, the [place] [employer] 2012 Guideline recommends a therapeutic INR range of 2 to 3 (target INR of 2.5). This recommendation includes high-risk patients with antiphospholipid syndrome with previous arterial or venous thromboembolism, current-generation mechanical or bioprosthetic aortic heart valve replacement.Note: Patients with mechanical aortic valve replacement and additional risk factors for thromboembolic events (atrial fibrillation, previous thromboembolism, LV dysfunction, hypercoagulable conditions) or an older generation mechanical AVR (i.e., ball in-Cage) or any mechanical MVR should have a INR therapeutic range of 2.5 to 3.5 (target INR of 3).Fan GH, et al. Chest 2012, 141:7S-47SNishimjohanna RA, et al. [facility] 2017, 70: 252-289 Performed By: #### 3 4528-0, 45600-2 ####[facility] LABORATORYIA [id number] [place] [address] [place] PT Coag (PPP) [Time] 11.9 s Normal 9.7-13.0 [facility] Comment on above: Order Comment: Speci men Type: BLOOD SPECIMENOrdering Facility: [facility] Address: [address] [address] Performed By: #### 3 4528-0, 54169-5 ####[facility] LABORATORYCLIA [id number] [place] [address] [place] SEPSIS LACTATE W/ REFLEX (IN ITIAL)on 07-12-2024 Lactate [Moles/Vol] 2.5 mmol/L High 0.0-2.0 [facility] Comment on above: Order Comment: Speci men Type: BLOOD SPECIMENOrdering Facility: [facility] Address: [address] [place] [address] Performed By: #### S LACTR ####[facility] LABORATORYCLIA [id number] [place] [id number] [place] SEPSIS LACTATE W/ REFLEX (SE COND)on 07-12-2024 Lactate [Moles/Vol] 2.7 mmol/L High 0.0-2.0 [facility] Comment on above: Order Comment: Speci men Type: BLOOD SPECIMENOrdering Facility: [facility] Address: [address] [place] [address] Performed By: #### S LACT2 ####[facility]ATORYSPR[facility] [id number] [place] [address] [place] TSH SerPl-aCncon 07-12-2024 TSH Qn 4.140 m[IU]/L Normal 0.270-4.200 [facility] Comment on above: Order Comment: Speci men Type: BLOOD SPECIMENOrdering Facility: [facility] Address: [address] [place] [address] Performed By: #### 3 016-3 ####[facility] [id number] [address] [place] TYPE + SCREENon 07-12-2024 ABO O Normal [facility] Comment on above: Order Comment: Speci men Type: BLOOD SPECIMENOrdering Facility: [facility] Address: [address] [place] [address] Performed By: #### T SCR ####[facility]IA [id number] [place] [id number] [place] Rh Nom (Bld) Positive Normal [facility] Comment on above: Order Comment: Speci men Type: BLOOD SPECIMENOrdering Facility: [facility] Address: [address] [place] [address] Performed By: #### T SCR ####[facility] [id number] [place] [id number] [facility] TYPE AND SCREEN EXPIRATION 07/15/2024 22:59 Normal [facility] Comment on above: Order Comment: Speci men Type: BLOOD SPECIMENOrdering Facility: [facility] Address: [address] [place] [address] Performed By: #### T SCR ####[facility] [id number] [place] [id number] [facility] XR CHEST 1V FRONTAL PORTon 0 07-12-2024 XR CHEST 1V FRONTAL PORT Normal [facility] aPTT PPPon 07-12-2024 aPTT Coag (PPP) [Time] 26.4 s Normal 23.0-32.4 [facility] Comment on above: Order Comment: Speci men Type: BLOOD SPECIMENOrdering Facility: [facility] Address: [address] [place] [address] Performed By: #### 3 4528-0, 60760-8 ####[facility] LABORATORYCLIA [id number] [address] [facility] COMP METAB 2000 PNL SERP Russel 07-09-2024 Albumin [Mass/Vol] 3.6 g/dL Low 3.9 - 4.9 g/dL [facility] ALP [Catalytic activity/Vol] 98 U/L 38 - 113 U/L [facility] ALT [Catalytic activity/Vol] 59 U/L High 10 - 54 U/L [facility] Anion gap [Moles/Vol] 9 mmol/L 8 - 15 mmol/L [facility] Calcium [Mass/Vol] 8.9 mg/dL 8.5 - 10. 2 mg/dL [facility] AST SERPL-CCNC 42 U/L High 14 - 40 U/L [facility] BILIRUB SERPL-MCNC 0.6 mg/dL 0.2 - 1.3 mg/dL [facility] PROT SERPL-MCNC 6.4 g/dL 6.3 - 8. 0 g/dL [facility] Chloride [Moles/Vol] 101 mmol/L 98 - 10 7 mmol/L [facility] CO2 [Moles/Vol] 26 mmol/L 22 - 30 mmol/L [facility] Creatinine [Mass/Vol] 1 mg/dL 0.73 - 1.22 mg/dL [facility] GFR/1.73 sq M.predicted CKD-EPI (S/P/Bld) [Vol rate/Area] 80 - PINF [facility] Comment on above: Estimated Glomerular Filtration Rate (eGFR) is calculated using the 2020 CKD-EPI creatinine equation. This equation utilizes serum creatinine, sex, and age as parameters. The creatinine assay has traceable calibration to isotope dilution-mass spectrometry. Refer to KDIGO guidelines for clinical interpretation. In patients with unstable renal function, e.g. those with acute kidney injury, the eGFR may not accurately reflect actual GFR. Glucose [Mass/Vol] 301 mg/dL High 74 - 99 mg/dL [facility] Comment on above: The [place] [employer] (ADA) provides guidance for cutoff values for fasting glucose and random glucose. The ADA defines fasting as no caloric intake for at least 8 hours. Fasting plasma glucose results between 100 to 125 mg/dL indicate increased risk for diabetes (prediabetes). Fasting plasma glucose results greater than or equal to 126 mg/dL meet the criteria for diagnosis of diabetes. In the absence of unequivocal hyperglycemia, results should be confirmed by repeat testing. In a patient with classic symptoms of hyperglycemia or hyperglycemic crisis, random plasma glucose results greater than or equal to 200 mg/dL meet the criteria for diagnosis of diabetes. Reference: Standards of Medical Care in Diabetes 2016, [place] [employer]. Diabetes Care. 2016.39(Suppl 1). Interpretation and review of laboratory results Abnormal [facility] Potassium [Moles/Vol] 4.1 mmol/L 3.7 - 5.1 mmol/L [facility] Sodium [Moles/Vol] 136 mmol/L 136 - 144 mmol/L [facility] Urea nitrogen [Mass/Vol] 20 mg/dL 9 - 24 mg/dL [facility] LDH SERPL-CCNCon 025 [facility] LDH SERPL-CCNC 174 U/L 135 - 225 U/L [facility] PHOSPHATE SERPL-MCNCon 0 07-09-2024 [facility] PHOSPHATE SERPL-MCNC 3.2 mg/dL 2.7 - 4.8 mg/dL [facility] URATE SERPL-MCNCon 07-09 [facility] URATE SERPL-MCNC 5.2 mg/dL 4.0 - 8 .1 mg/dL [facility] No Panel Informationon 07-09 Specimen Type: BLOOD SPECIMEN Ordering Facility: [facility] Address: [address] [place] [id number] Original Ordering Provider: VIMAL CASILLAS [facility] CBC W AUTO DIFF BLDon Basophils/100 WBC (Bld) 0.8 % [facility] BASOPHILS # BLD AUTO <0.03 [facility] DIFFERENTIAL METHOD BLD Auto [facility] EOSINOPHIL # BLD AUTO <0.03 [facility] LYMPHOCYTES # BLD AUTO 0.96 Low [facility] MONOCYTES # BLD AUTO 0.24 [facility] NEUTROPHILS # BLD AUTO 1.33 Low [facility] NRBC # BLD AUTO <0.01 [facility] NRBC/100 WBC BLD-RTO 0 /100 WBC [facility] PLATELET # BLD AUTO 42 Low [facility] Comment on above: No clot detected. [facility] PMV BLD AUTO 9.9 fL 9.0 - 12.7 fL [facility] WBC # BLD AUTO 2.57 Low [facility] Eosinophils/100 WBC (Bld) 0.8 % [facility] Erythrocyte distribution width (RBC) [Ratio] 17.7 % High 11.5 - 15.0 % [facility] Hematocrit (Bld) [Volume fraction] 23.8 % Low 39.0 - 51.0 % [facility] Hemoglobin (Bld) [Mass/Vol] 8 g/dL Low 13.0 - 17.0 g/dL [facility] IMM GRANULOCYTES # BLD AUTO <0.03 [facility] IMM GRANULOCYTES/LEUK NFR BLD AUTO 0 % [facility] Interpretation and review of laboratory results Abnormal [facility] Lymphocytes/100 WBC (Bld) 37.4 % [facility] MCH (RBC) [Entitic mass] 34.2 pg High 26.0 - 34.0 pg [facility] MCHC (RBC) [Mass/Vol] 33.6 g/dL 30.5 - 36.0 g/dL [facility] MCV (RBC) [Entitic vol] 101.7 fL High 80.0 - 100.0 fL [facility] Monocytes/100 WBC (Bld) 9.3 % [facility] Neutrophils/100 WBC (Bld) 51.7 % [facility] RBC (Bld) [#/Vol] 2.34 10*6/uL Low 4.20 - 6.0 0 m/uL [facility] Specimen Type: BLOOD SPECIMEN Ordering Facility: [facility] Address: [address] [place], [place] [address] [address] Original Ordering Provider: VIMAL CASILLAS [facility] COMP METAB 2000 PNL SERP Russel 06-26-2024 Albumin [Mass/Vol] 3.9 g/dL 3.9 - 4.9 g/dL [facility] ALP [Catalytic activity/Vol] 100 U/L 38 - 113 U/L [facility] ALT [Catalytic activity/Vol] 46 U/L 10 - 54 U/L [facility] Anion gap [Moles/Vol] 11 mmol/L 8 - 15 mmol/L [facility] Calcium [Mass/Vol] 8.9 mg/dL 8.5 - 10. 2 mg/dL [facility] AST SERPL-CCNC 72 U/L High 14 - 40 U/L [facility] BILIRUB SERPL-MCNC 0.7 mg/dL 0.2 - 1.3 mg/dL [facility] PROT SERPL-MCNC 7.2 g/dL 6.3 - 8. 0 g/dL [facility] Chloride [Moles/Vol] 100 mmol/L 98 - 10 7 mmol/L [facility] CO2 [Moles/Vol] 23 mmol/L 22 - 30 mmol/L [facility] Creatinine [Mass/Vol] 1.17 mg/dL 0.73 - 1.22 mg/dL [facility] GFR/1.73 sq M.predicted CKD-EPI (S/P/Bld) [Vol rate/Area] 67 - PINF [facility] Comment on above: Estimated Glomerular Filtration Rate (eGFR) is calculated using the 2020 CKD-EPI creatinine equation. This equation utilizes serum creatinine, sex, and age as parameters. The creatinine assay has traceable calibration to isotope dilution-mass spectrometry. Refer to KDIGO guidelines for clinical interpretation. In patients with unstable renal function, e.g. those with acute kidney injury, the eGFR may not accurately reflect actual GFR. Glucose [Mass/Vol] 323 mg/dL High 74 - 99 mg/dL [facility] Comment on above: The [place] Di[employer] Association (ADA) provides guidance for cutoff values for fasting glucose and random glucose. The ADA defines fasting as no caloric intake for at least 8 hours. Fasting plasma glucose results between 100 to 125 mg/dL indicate increased risk for diabetes (prediabetes). Fasting plasma glucose results greater than or equal to 126 mg/dL meet the criteria for diagnosis of diabetes. In the absence of unequivocal hyperglycemia, results should be confirmed by repeat testing. In a patient with classic symptoms of hyperglycemia or hyperglycemic crisis, random plasma glucose results greater than or equal to 200 mg/dL meet the criteria for diagnosis of diabetes. Reference: Standards of Medical Care in Diabetes 2016, [place] [employer]. Diabetes Care. 2016.39(Suppl 1). Interpretation and review of laboratory results Abnormal [facility] Potassium [Moles/Vol] 3.9 mmol/L 3.7 - 5.1 mmol/L [facility] Sodium [Moles/Vol] 134 mmol/L Low 136 - 144 mmol/L [facility] Urea nitrogen [Mass/Vol] 24 mg/dL 9 - 24 mg/dL [facility] Specimen Type: BLOOD SPECIMEN Ordering Facility: [facility] Address: [address] [place] [address] Original Ordering Provider: [facility] LDH SERPL-CCNCon 025 [facility] LDH SERPL-CCNC 301 U/L High 135 - 225 U/L [facility] Interpretation and review of laboratory results Abnormal [facility] Specimen Type: BLOOD SPECIMEN Ordering Facility: [facility] Address: [address] [place], [place] [id number] Original Ordering Provider: [facility] PHOSPHATE SERPL-MCNCon 0 06-26-2024 [facility] PHOSPHATE SERPL-MCNC 4 mg/dL 2.7 - 4.8 mg/dL [facility] URATE SERPL-MCNCon 06-26 [facility] URATE SERPL-MCNC 7.6 mg/dL 4.0 - 8 .1 mg/dL [facility] No Panel Informationon 06-26 Specimen Type: BLOOD SPECIMEN Ordering Facility: [facility] Address: [address], [place] [phone] Original Ordering Provider: VIMAL CASILLAS [facility] COMP METAB 2000 PNL SERP Russel 06-18-2024 Albumin [Mass/Vol] 4 g/dL 3.9 - 4.9 g/dL [facility] ALP [Catalytic activity/Vol] 94 U/L 38 - 113 U/L [facility] ALT [Catalytic activity/Vol] 47 U/L 10 - 54 U/L [facility] Anion gap [Moles/Vol] 7 mmol/L Low 8 - 15 mmol/L [facility] Calcium [Mass/Vol] 9.4 mg/dL 8.5 - 10. 2 mg/dL [facility] AST SERPL-CCNC 45 U/L High 14 - 40 U/L [facility] BILIRUB SERPL-MCNC 0.6 mg/dL 0.2 - 1.3 mg/dL [facility] PROT SERPL-MCNC 7.2 g/dL 6.3 - 8. 0 g/dL [facility] Chloride [Moles/Vol] 99 mmol/L 98 - 10 7 mmol/L [facility] CO2 [Moles/Vol] 27 mmol/L 22 - 30 mmol/L [facility] Creatinine [Mass/Vol] 1.24 mg/dL High 0.73 - 1.22 mg/dL [facility] GFR/1.73 sq M.predicted CKD-EPI (S/P/Bld) [Vol rate/Area] 62 - PINF [facility] Comment on above: Estimated Glomerular Filtration Rate (eGFR) is calculated using the 2020 CKD-EPI creatinine equation. This equation utilizes serum creatinine, sex, and age as parameters. The creatinine assay has traceable calibration to isotope dilution-mass spectrometry. Refer to KDIGO guidelines for clinical interpretation. In patients with unstable renal function, e.g. those with acute kidney injury, the eGFR may not accurately reflect actual GFR. Glucose [Mass/Vol] 323 mg/dL High 74 - 99 mg/dL [facility] Comment on above: The [place] Di[employer] s Association (ADA) provides guidance for cutoff values for fasting glucose and random glucose. The ADA defines fasting as no caloric intake for at least 8 hours. Fasting plasma glucose results between 100 to 125 mg/dL indicate increased risk for diabetes (prediabetes). Fasting plasma glucose results greater than or equal to 126 mg/dL meet the criteria for diagnosis of diabetes. In the absence of unequivocal hyperglycemia, results should be confirmed by repeat testing. In a patient with classic symptoms of hyperglycemia or hyperglycemic crisis, random plasma glucose results greater than or equal to 200 mg/dL meet the criteria for diagnosis of diabetes. Reference: Standards of Medical Care in Diabetes 2016, [place] [employer]. Diabetes Care. 2016.39(Suppl 1). Interpretation and review of laboratory results Abnormal [facility] Potassium [Moles/Vol] 4 mmol/L 3.7 - 5.1 mmol/L [facility] Sodium [Moles/Vol] 133 mmol/L Low 136 - 144 mmol/L [facility] Urea nitrogen [Mass/Vol] 25 mg/dL High 9 - 24 mg/dL [facility] Specimen Type: BLOOD SPECIMEN Ordering Facility: [facility] Address: [address] [place] [address] Original Ordering Provider: LORENA BLACKWELL [facility] LDH SERPL-CCNCon 025 [facility] LDH SERPL-CCNC 192 U/L 135 - 225 U/L [facility] Specimen Type: BLOOD SPECIMEN Ordering Facility: [facility] Address: [address] [place] [address] Original Ordering Provider: [facility] PHOSPHATE SERPL-MCNCon 0 06-18-2024 [facility] PHOSPHATE SERPL-MCNC 3.2 mg/dL 2.7 - 4.8 mg/dL [facility] Specimen Type: BLOOD SPECIMEN Ordering Facility: [facility] Address: [address] [place] [address] Original Ordering Provider: [facility] URATE SERPL-MCNCon 06-18 [facility] URATE SERPL-MCNC 7 mg/dL 4.0 - 8 .1 mg/dL [facility] Specimen Type: BLOOD SPECIMEN Ordering Facility: [facility] Address: [address] [place] [address] Original Ordering Provider: [facility] CBC W Auto Differential pane l (Bld)on 02-07-2025 Anisocytosis Ql (Bld) Present [facility] Basophils (Bld) [#/Vol] 0 10*3/uL [facility] C [facility] Dacrocytes LM Ql (Bld) Few [facility] Differential cell count method Nom (Bld) Manual [facility] Eosinophils (Bld) [#/Vol] 0 10*3/uL [facility] Lymphocytes (Bld) [#/Vol] 1.42 10*3/uL [facility] Monocytes (Bld) [#/Vol] 0.46 10*3/uL [facility] Neutrophils (Bld) [#/Vol] 1.42 10*3/uL Low [facility] Nucleated RBC (Bld) [#/Vol] [facility] Nucleated RBC/100 WBC (Bld) [Ratio] 0 % /100 WBC [facility] Ovalocytes LM Ql (Bld) Few [facility] Platelet mean volume (Bld) [Entitic vol] 11.7 fL 9.0 - 12.7 fL [facility] Platelets (Bld) [#/Vol] 57 10*3/uL Low [facility] Comment on above: No clot detected. Platelets Estimate (Bld) [#/Vol] Decreased [facility] Red Cell Morph Reviewed: see result s of individual morphologies [facility] WBC (Bld) [#/Vol] 3.3 10*3/uL Low [facility] This is an appended report. These results have been appended to a previously verified report. [facility] CBC W AUTO DIFF BLDon [facility] ANISOCYTOSIS Present [facility] BASOPHILS # BLD AUTO 0 [facility] DACRYOCYTES BLD QL SMEAR Few [facility] DIFFERENTIAL METHOD BLD Manual [facility] EOSINOPHIL # BLD AUTO 0 [facility] LYMPHOCYTES # BLD AUTO 1.42 [facility] MONOCYTES # BLD AUTO 0.46 [facility] NEUTROPHILS # BLD AUTO 1.42 Low [facility] NRBC # BLD AUTO <0.01 [facility] NRBC/100 WBC BLD-RTO 0 /100 WBC [facility] OVALOCYTES BLD QL SMEAR Few [facility] PLATELET # BLD AUTO 57 Low [facility] Comment on above: No clot detected. [facility] PMV BLD AUTO 11.7 fL 9.0 - 12.7 fL [facility] RED CELL MORPH Reviewed: see result s of individual morphologies [facility] WBC # BLD AUTO 3.3 Low [facility] PLATELET # BLD EST Decreased [facility] Specimen Type: BLOOD SPECIMEN Ordering Facility: [facility] Address: [address] [place] [address] Original Ordering Provider: OSVALDO MOREIRA [facility] Comprehensive metabolic 2000 panelon 06-15-2024 Albumin [Mass/Vol] 4 g/dL 3.9 - 4.9 g/dL [facility] ALP [Catalytic activity/Vol] 111 U/L 38 - 113 U/L [facility] ALT [Catalytic activity/Vol] 52 U/L 10 - 54 U/L [facility] Anion gap [Moles/Vol] 10 mmol/L 8 - 15 mmol/L [facility] AST [Catalytic activity/Vol] 55 U/L High 14 - 40 U/L [facility] Bilirubin [Mass/Vol] 0.7 mg/dL 0.2 - 1 .3 mg/dL [facility] Calcium [Mass/Vol] 9.4 mg/dL 8.5 - 10. 2 mg/dL [facility] Chloride [Moles/Vol] 105 mmol/L 98 - 10 7 mmol/L [facility] CO2 [Moles/Vol] 25 mmol/L 22 - 30 mmol/L [facility] Creatinine [Mass/Vol] 1.05 mg/dL 0.73 - 1.22 mg/dL [facility] GFR/1.73 sq M.predicted among non-blacks MDRD (S/P/Bld) [Vol rate/Area] 76 mL/min/{1.73_m2} - PINF [facility] Comment on above: Estimated Glomerular Filtration Rate (eGFR) is calculated using the 2020 CKD-EPI creatinine equation. This equation utilizes serum creatinine, sex, and age as parameters. The creatinine assay has traceable calibration to isotope dilution-mass spectrometry. Refer to KDIGO guidelines for clinical interpretation. In patients with unstable renal function, e.g. those with acute kidney injury, the eGFR may not accurately reflect actual GFR. Glucose [Mass/Vol] 195 mg/dL High 74 - 99 mg/dL [facility] Comment on above: The [place] Diab[employer] Association (ADA) provides guidance for cutoff values for fasting glucose and random glucose. The ADA defines fasting as no caloric intake for at least 8 hours. Fasting plasma glucose results between 100 to 125 mg/dL indicate increased risk for diabetes (prediabetes). Fasting plasma glucose results greater than or equal to 126 mg/dL meet the criteria for diagnosis of diabetes. In the absence of unequivocal hyperglycemia, results should be confirmed by repeat testing. In a patient with classic symptoms of hyperglycemia or hyperglycemic crisis, random plasma glucose results greater than or equal to 200 mg/dL meet the criteria for diagnosis of diabetes. Reference: Standards of Medical Care in Diabetes 2016, [place] [employer]. Diabetes Care. 2016.39(Suppl 1). Interpretation and review of laboratory results Abnormal [facility] Potassium [Moles/Vol] 4.5 mmol/L 3.7 - 5.1 mmol/L [facility] Protein [Mass/Vol] 7.5 g/dL 6.3 - 8.0 g/dL [facility] Sodium [Moles/Vol] 140 mmol/L 136 - 144 mmol/L [facility] Urea nitrogen [Mass/Vol] 20 mg/dL 9 - 24 mg/dL [facility] LACTATE DEHYDROGENASEon LDH [Catalytic activity/Vol] 215 U/L 135 - 225 U/L [facility] LDH [Catalytic activity/Vol] on 06-15-2024 Interpretation and review of laboratory results Normal [facility] Laboratory - Hematology and Cell countson 06-15-2024 Basophils/100 WBC (Bld) 0 % [facility] Eosinophils/100 WBC (Bld) 0 % [facility] Erythrocyte distribution width (RBC) [Ratio] 18.8 % High 11.5 - 15.0 % [facility] Hematocrit (Bld) [Volume fraction] 27 % Low 39.0 - 51.0 % [facility] Hemoglobin (Bld) [Mass/Vol] 8.7 g/dL Low 13.0 - 17.0 g/dL [facility] Lymphocytes/100 WBC (Bld) 43 % [facility] MCH (RBC) [Entitic mass] 33.5 pg 26.0 - 34.0 pg [facility] MCHC (RBC) [Mass/Vol] 32.2 g/dL 30.5 - 36.0 g/dL [facility] MCV (RBC) [Entitic vol] 103.8 fL High 80.0 - 100.0 fL [facility] Monocytes/100 WBC (Bld) 14 % N [facility] Neutrophils/100 WBC (Bld) 43 % [facility] RBC (Bld) [#/Vol] 2.6 10*6/uL Low 4.20 - 6.0 0 m/uL [facility] No Panel Informationon 06-15 Interpretation and review of laboratory results Abnormal [facility] COMP METAB 2000 PNL SERP Russel 06-11-2024 Albumin [Mass/Vol] 3.9 g/dL 3.9 - 4.9 g/dL [facility] ALP [Catalytic activity/Vol] 89 U/L 38 - 113 U/L [facility] ALT [Catalytic activity/Vol] 41 U/L 10 - 54 U/L [facility] Anion gap [Moles/Vol] 10 mmol/L 8 - 15 mmol/L [facility] Calcium [Mass/Vol] 9 mg/dL 8.5 - 10. 2 mg/dL [facility] AST SERPL-CCNC 54 U/L High 14 - 40 U/L [facility] BILIRUB SERPL-MCNC 0.7 mg/dL 0.2 - 1.3 mg/dL [facility] PROT SERPL-MCNC 7.4 g/dL 6.3 - 8. 0 g/dL [facility] Chloride [Moles/Vol] 102 mmol/L 98 - 10 7 mmol/L [facility] CO2 [Moles/Vol] 22 mmol/L 22 - 30 mmol/L [facility] Creatinine [Mass/Vol] 1.14 mg/dL 0.73 - 1.22 mg/dL [facility] GFR/1.73 sq M.predicted CKD-EPI (S/P/Bld) [Vol rate/Area] 69 - PINF [facility] Comment on above: Estimated Glomerular Filtration Rate (eGFR) is calculated using the 2020 CKD-EPI creatinine equation. This equation utilizes serum creatinine, sex, and age as parameters. The creatinine assay has traceable calibration to isotope dilution-mass spectrometry. Refer to KDIGO guidelines for clinical interpretation. In patients with unstable renal function, e.g. those with acute kidney injury, the eGFR may not accurately reflect actual GFR. Glucose [Mass/Vol] 172 mg/dL High 74 - 99 mg/dL [facility] Comment on above: The [place] Di[employer] Association (ADA) provides guidance for cutoff values for fasting glucose and random glucose. The ADA defines fasting as no caloric intake for at least 8 hours. Fasting plasma glucose results between 100 to 125 mg/dL indicate increased risk for diabetes (prediabetes). Fasting plasma glucose results greater than or equal to 126 mg/dL meet the criteria for diagnosis of diabetes. In the absence of unequivocal hyperglycemia, results should be confirmed by repeat testing. In a patient with classic symptoms of hyperglycemia or hyperglycemic crisis, random plasma glucose results greater than or equal to 200 mg/dL meet the criteria for diagnosis of diabetes. Reference: Standards of Medical Care in Diabetes 2016, [place] [employer]. Diabetes Care. 2016.39(Suppl 1). Interpretation and review of laboratory results Abnormal [facility] Potassium [Moles/Vol] 4 mmol/L 3.7 - 5.1 mmol/L [facility] Sodium [Moles/Vol] 134 mmol/L Low 136 - 144 mmol/L [facility] Urea nitrogen [Mass/Vol] 19 mg/dL 9 - 24 mg/dL [facility] Specimen Type: BLOOD SPECIMEN Ordering Facility: [facility] Address: [address] [place] [address] Original Ordering Provider: [facility] LDH SERPL-CCNCon 025 CC LDH SERPL-CCNC 276 U/L High 135 - 225 U/L [facility] Interpretation and review of laboratory results Abnormal [facility] Specimen Type: BLOOD SPECIMEN Ordering Facility: [facility] Address: [address] [place] [address] Original Ordering Provider: [facility] PHOSPHATE SERPL-MCNCon 0 06-11-2024 [facility] PHOSPHATE SERPL-MCNC 3.6 mg/dL 2.7 - 4.8 mg/dL [facility] Specimen Type: BLOOD SPECIMEN Ordering Facility: [facility] Address: [address] [place] [address] Original Ordering Provider: [facility] CCF URATE SERPL-MCNCon 06-11 [facility] URATE SERPL-MCNC 8 mg/dL 4.0 - 8 .1 mg/dL [facility] Specimen Type: BLOOD SPECIMEN Ordering Facility: [facility]: [address] [place] [address] Original Ordering Provider: VIMAL CASILLAS [facility] CBC W AUTO DIFF BLDon Basophils/100 WBC (Bld) 0.8 % [facility] BASOPHILS # BLD AUTO <0.03 [facility] DIFFERENTIAL METHOD BLD Auto [facility] EOSINOPHIL # BLD AUTO <0.03 [facility] LYMPHOCYTES # BLD AUTO 1.14 [facility] MONOCYTES # BLD AUTO 0.51 [facility] NEUTROPHILS # BLD AUTO 0.78 Low [facility] NRBC # BLD AUTO 0.[address] [facility] [facility] NRBC/100 WBC BLD-RTO 2.7 /100 WBC [facility] PLATELET # BLD AUTO 79 Low [facility] Comment on above: No clot detected. [facility] PMV BLD AUTO 8.6 fL Low 9.0 - 12.7 fL [facility] WBC # BLD AUTO 2.56 Low [facility] Eosinophils/100 WBC (Bld) 0.8 % [facility] Erythrocyte distribution width (RBC) [Ratio] 20.2 % High 11.5 - 15.0 % [facility] Hematocrit (Bld) [Volume fraction] 28.5 % Low 39.0 - 51.0 % [facility] Hemoglobin (Bld) [Mass/Vol] 9.2 g/dL Low 13.0 - 17.0 g/dL [facility] IMM GRANULOCYTES # BLD AUTO 0.09 [facility] IMM GRANULOCYTES/LEUK NFR BLD AUTO 3.5 % [facility] Interpretation and review of laboratory results Abnormal [facility] Lymphocytes/100 WBC (Bld) 44.5 % [facility] MCH (RBC) [Entitic mass] 33.6 pg 26.0 - 34.0 pg [facility] MCHC (RBC) [Mass/Vol] 32.3 g/dL 30.5 - 36.0 g/dL [facility] MCV (RBC) [Entitic vol] 104 fL High 80.0 - 100.0 fL [facility] Monocytes/100 WBC (Bld) 19.9 % [facility] Neutrophils/100 WBC (Bld) 30.5 % [facility] RBC (Bld) [#/Vol] 2.74 10*6/uL Low 4.20 - 6.0 0 m/uL [facility] Specimen Type: BLOOD SPECIMEN Ordering Facility: [facility] Address: [address] [phone] Original Ordering Provider: SOHA CASILLAS [facility] Glucose (Bld) [Mass/Vol]on 0 06-07-2024 Glucose Blood, POC 290 mg/dL [facility] Laboratory - Hematology and Cell countson 06-07-2024 HbA1c (Bld) [Mass fraction] 7.2 % [facility] No Panel Informationon 06-07 Interpretation and review of laboratory results Abnormal [facility] CBC W AUTO DIFF BLDon Basophils/100 WBC (Bld) 0.3 % [facility] BASOPHILS # BLD AUTO <0.03 [facility] DIFFERENTIAL METHOD BLD Auto [facility] EOSINOPHIL # BLD AUTO <0.03 [facility] LYMPHOCYTES # BLD AUTO 0.99 Low [facility] MONOCYTES # BLD AUTO 0.44 [facility] NEUTROPHILS # BLD AUTO 1.71 [facility] NRBC # BLD AUTO 0.[address] [facility] NRBC/100 WBC BLD-RTO 0.6 /100 WBC [facility] PLATELET # BLD AUTO 102 Low [facility] PMV BLD AUTO 9.3 fL 9.0 - 12.7 fL [facility] WBC # BLD AUTO 3.18 Low [facility] Eosinophils/100 WBC (Bld) 0.3 % [facility] Erythrocyte distribution width (RBC) [Ratio] 20.6 % High 11.5 - 15.0 % [facility] Hematocrit (Bld) [Volume fraction] 27.5 % Low 39.0 - 51.0 % [facility] Hemoglobin (Bld) [Mass/Vol] 8.9 g/dL Low 13.0 - 17.0 g/dL [facility] IMM GRANULOCYTES # BLD AUTO <0.03 [facility] IMM GRANULOCYTES/LEUK NFR BLD AUTO 0.6 % [facility] Interpretation and review of laboratory results Abnormal [facility] Lymphocytes/100 WBC (Bld) 31.1 % [facility] MCH (RBC) [Entitic mass] 33.5 pg 26.0 - 34.0 pg [facility] MCHC (RBC) [Mass/Vol] 32.4 g/dL 30.5 - 36.0 g/dL [facility] MCV (RBC) [Entitic vol] 103.4 fL High 80.0 - 100.0 fL [facility] Monocytes/100 WBC (Bld) 13.8 % N [facility] Neutrophils/100 WBC (Bld) 53.9 % [facility] RBC (Bld) [#/Vol] 2.66 10*6/uL Low 4.20 - 6.0 0 m/uL [facility] Specimen Type: BLOOD SPECIMEN Ordering Facility: [facility] Address: [address] [place] [address] Original Ordering Provider: VIMAL CASILLAS [facility] COMP METAB 1999 PNL SERP Russel 06-04-2024 Albumin [Mass/Vol] 4.1 g/dL 3.9 - 4.9 g/dL [facility] ALP [Catalytic activity/Vol] 90 U/L 38 - 113 U/L [facility] ALT [Catalytic activity/Vol] 43 U/L 10 - 54 U/L [facility] Anion gap [Moles/Vol] 9 mmol/L 8 - 15 mmol/L [facility] Calcium [Mass/Vol] 9.4 mg/dL 8.5 - 10. 2 mg/dL [facility] AST SERPL-CCNC 42 U/L High 14 - 40 U/L [facility] BILIRUB SERPL-MCNC 0.7 mg/dL 0.2 - 1.3 mg/dL [facility] PROT SERPL-MCNC 7.3 g/dL 6.3 - 8. 0 g/dL [facility] Chloride [Moles/Vol] 102 mmol/L 98 - 10 7 mmol/L [facility] CO2 [Moles/Vol] 25 mmol/L 22 - 30 mmol/L [facility] Creatinine [Mass/Vol] 1.07 mg/dL 0.73 - 1.22 mg/dL [facility] GFR/1.73 sq M.predicted CKD-EPI (S/P/Bld) [Vol rate/Area] 74 - PINF [facility] Comment on above: Estimated Glomerular Filtration Rate (eGFR) is calculated using the 2020 CKD-EPI creatinine equation. This equation utilizes serum creatinine, sex, and age as parameters. The creatinine assay has traceable calibration to isotope dilution-mass spectrometry. Refer to KDIGO guidelines for clinical interpretation. In patients with unstable renal function, e.g. those with acute kidney injury, the eGFR may not accurately reflect actual GFR. Glucose [Mass/Vol] 181 mg/dL High 74 - 99 mg/dL [facility] Comment on above: The [place] [employer] (ADA) provides guidance for cutoff values for fasting glucose and random glucose. The ADA defines fasting as no caloric intake for at least 8 hours. Fasting plasma glucose results between 100 to 125 mg/dL indicate increased risk for diabetes (prediabetes). Fasting plasma glucose results greater than or equal to 126 mg/dL meet the criteria for diagnosis of diabetes. In the absence of unequivocal hyperglycemia, results should be confirmed by repeat testing. In a patient with classic symptoms of hyperglycemia or hyperglycemic crisis, random plasma glucose results greater than or equal to 200 mg/dL meet the criteria for diagnosis of diabetes. Reference: Standards of Medical Care in Diabetes 2016, [place] [employer]. Diabetes Care. 2016.39(Suppl 1). Interpretation and review of laboratory results Abnormal [facility] Potassium [Moles/Vol] 3.8 mmol/L 3.7 - 5.1 mmol/L [facility] Sodium [Moles/Vol] 136 mmol/L 136 - 144 mmol/L [facility] Urea nitrogen [Mass/Vol] 27 mg/dL High 9 - 24 mg/dL [facility] LDH SERPL-CCNCon 025 [facility] LDH SERPL-CCNC 177 U/L 135 - 225 U/L [facility] PHOS[facility] SERPL-[facility]NCon 0 06-04-2024 [facility] PHOSPHATE SERPL-MCNC 3.7 mg/dL 2.7 - 4.8 mg/dL [facility] Specimen Type: BLOOD SPECIMEN Ordering Facility: [facility] Address: [address] [phone] Original Ordering Provider: VIMAL CASILLAS [facility] URATE SERPL-MCNCon 06-04 [facility] URATE SERPL-MCNC 6.7 mg/dL 4.0 - 8 .1 mg/dL [facility] Specimen Type: BLOOD SPECIMEN Ordering Facility: [facility] Address: [address] [place] [address] Original Ordering Provider: [facility] No Panel Informationon 06-04 Specimen Type: BLOOD SPECIMEN Ordering Facility: [facility] Address: [address] [place] [address] Original Ordering Provider: [facility] CBC W AUTO DIFF BLDon Basophils/100 WBC (Bld) 0.4 % N [facility] BASOPHILS # BLD AUTO <0.03 [facility] DIFFERENTIAL METHOD BLD Auto [facility] EOSINOPHIL # BLD AUTO <0.03 [facility] LYMPHOCYTES # BLD AUTO 1 [facility] MONOCYTES # BLD AUTO 0.24 [facility] NEUTROPHILS # BLD AUTO 1.53 [facility] NRBC # BLD AUTO <0.01 [facility] NRBC/100 WBC BLD-RTO 0 /100 WBC [facility] PLATELET # BLD AUTO 86 Low [facility] Comment on above: No clot detected. [facility] PMV BLD AUTO 10.4 fL 9.0 - 12.7 fL [facility] WBC # BLD AUTO 2.81 Low [facility] Eosinophils/100 WBC (Bld) 0.4 % [facility] Erythrocyte distribution width (RBC) [Ratio] 19.6 % High 11.5 - 15.0 % [facility] Hematocrit (Bld) [Volume fraction] 29.5 % Low 39.0 - 51.0 % [facility] Hemoglobin (Bld) [Mass/Vol] 9.8 g/dL Low 13.0 - 17.0 g/dL [facility] IMM GRANULOCYTES # BLD AUTO <0.03 [facility] IMM GRANULOCYTES/LEUK NFR BLD AUTO 0.7 % [facility] Interpretation and review of laboratory results Abnormal [facility] Lymphocytes/100 WBC (Bld) 35.6 % [facility] MCH (RBC) [Entitic mass] 33.7 pg 26.0 - 34.0 pg [facility] MCHC (RBC) [Mass/Vol] 33.2 g/dL 30.5 - 36.0 g/dL [facility] MCV (RBC) [Entitic vol] 101.4 fL High 80.0 - 100.0 fL [facility] Monocytes/100 WBC (Bld) 8.5 % [facility] Neutrophils/100 WBC (Bld) 54.4 % [facility] RBC (Bld) [#/Vol] 2.91 10*6/uL Low 4.20 - 6.0 0 m/uL [facility] Specimen Type: BLOOD SPECIMEN Ordering Facility: [facility] Address: [address] [place] [address] Original Ordering Provider: VIMAL CASILLAS [facility] CBC W AUTO DIFF BLDon Basophils/100 WBC (Bld) 0.7 % [facility] BASOPHILS # BLD AUTO 0.03 [facility] DIFFERENTIAL METHOD BLD Auto [facility] EOSINOPHIL # BLD AUTO <0.03 [facility] LYMPHOCYTES # BLD AUTO 1.04 [facility] MONOCYTES # BLD AUTO 0.44 [facility] NEUTROPHILS # BLD AUTO 2.42 [facility] NRBC # BLD AUTO 0.[address] [facility] NRBC/100 WBC BLD-RTO 0.7 /100 WBC [facility] PLATELET # BLD AUTO 101 Low [facility] PMV BLD AUTO 9.2 fL 9.0 - 12.7 fL [facility] WBC # BLD AUTO 4.07 [facility] Eosinophils/100 WBC (Bld) 0.5 % [facility] Erythrocyte distribution width (RBC) [Ratio] 20.1 % High 11.5 - 15.0 % [facility] Hematocrit (Bld) [Volume fraction] 28.8 % Low 39.0 - 51.0 % [facility] Hemoglobin (Bld) [Mass/Vol] 9.3 g/dL Low 13.0 - 17.0 g/dL [facility] IMM GRANULOCYTES # BLD AUTO 0.[address] [facility] IMM GRANULOCYTES/LEUK NFR BLD AUTO 2.9 % [facility] Interpretation and review of laboratory results Abnormal [facility] Lymphocytes/100 WBC (Bld) 25.6 % [facility] MCH (RBC) [Entitic mass] 33.5 pg 26.0 - 34.0 pg [facility] MCHC (RBC) [Mass/Vol] 32.3 g/dL 30.5 - 36.0 g/dL [facility] MCV (RBC) [Entitic vol] 103.6 fL High 80.0 - 100.0 fL [facility] Monocytes/100 WBC (Bld) 10.8 % N [facility] Neutrophils/100 WBC (Bld) 59.5 % [facility] RBC (Bld) [#/Vol] 2.78 10*6/uL Low 4.20 - 6.0 0 m/uL [facility] Specimen Type: BLOOD SPECIMEN Ordering Facility: [facility] Address: [address] [place] [address] Original Ordering Provider: VIMAL CASILLAS [facility] COMP METAB 1999 PNL SERP Russel 05-21-2024 Albumin [Mass/Vol] 4 g/dL 3.9 - 4.9 g/dL [facility] ALP [Catalytic activity/Vol] 90 U/L 38 - 113 U/L [facility] ALT [Catalytic activity/Vol] 37 U/L 10 - 54 U/L [facility] Anion gap [Moles/Vol] 10 mmol/L 8 - 15 mmol/L [facility] Calcium [Mass/Vol] 9.4 mg/dL 8.5 - 10. 2 mg/dL [facility] AST SERPL-CCNC 41 U/L High 14 - 40 U/L [facility] BILIRUB SERPL-MCNC 0.6 mg/dL 0.2 - 1.3 mg/dL [facility] PROT SERPL-MCNC 7.1 g/dL 6.3 - 8. 0 g/dL [facility] Chloride [Moles/Vol] 102 mmol/L 98 - 10 7 mmol/L [facility] CO2 [Moles/Vol] 24 mmol/L 22 - 30 mmol/L [facility] Creatinine [Mass/Vol] 1.01 mg/dL 0.73 - 1.22 mg/dL [facility] GFR/1.73 sq M.predicted CKD-EPI (S/P/Bld) [Vol rate/Area] 80 - PINF [facility] Comment on above: Estimated Glomerular Filtration Rate (eGFR) is calculated using the 2020 CKD-EPI creatinine equation. This equation utilizes serum creatinine, sex, and age as parameters. The creatinine assay has traceable calibration to isotope dilution-mass spectrometry. Refer to KDIGO guidelines for clinical interpretation. In patients with unstable renal function, e.g. those with acute kidney injury, the eGFR may not accurately reflect actual GFR. Glucose [Mass/Vol] 198 mg/dL High 74 - 99 mg/dL [facility] Comment on above: The [place] [employer] (ADA) provides guidance for cutoff values for fasting glucose and random glucose. The ADA defines fasting as no caloric intake for at least 8 hours. Fasting plasma glucose results between 100 to 125 mg/dL indicate increased risk for diabetes (prediabetes). Fasting plasma glucose results greater than or equal to 126 mg/dL meet the criteria for diagnosis of diabetes. In the absence of unequivocal hyperglycemia, results should be confirmed by repeat testing. In a patient with classic symptoms of hyperglycemia or hyperglycemic crisis, random plasma glucose results greater than or equal to 200 mg/dL meet the criteria for diagnosis of diabetes. Reference: Standards of Medical Care in Diabetes 2016, [place] [employer]. Diabetes Care. 2016.39(Suppl 1). Interpretation and review of laboratory results Abnormal [facility] Potassium [Moles/Vol] 3.8 mmol/L 3.7 - 5.1 mmol/L [facility] Sodium [Moles/Vol] 136 mmol/L 136 - 144 mmol/L [facility] Urea nitrogen [Mass/Vol] 17 mg/dL 9 - 24 mg/dL [facility] Specimen Type: BLOOD SPECIMEN Ordering Facility: [facility] Address: [address] [place] [address] Original Ordering Provider: [facility] LDH SERPL-CCNCon 025 [facility] LDH SERPL-CCNC 193 U/L 135 - 225 U/L [facility] Specimen Type: BLOOD SPECIMEN Ordering Facility: [facility] Address: [address] [place] [address] Original Ordering Provider: [facility] PHOSPHATE SERPL-MCNCon 0 05-21-2024 [facility] PHOSPHATE SERPL-MCNC 3.5 mg/dL 2.7 - 4.8 mg/dL [facility] Specimen Type: BLOOD SPECIMEN Ordering Facility: [facility] Address: [address] [phone] Original Ordering Provider: [facility] URATE SERPL-MCNCon 05-21 [facility] URATE SERPL-MCNC 6 mg/dL 4.0 - 8 .1 mg/dL [facility] Specimen Type: BLOOD SPECIMEN Ordering Facility: [facility] Address: [address] [place] [address] Original [facility] CBC W AUTO DIFF BLDon Basophils/100 WBC (Bld) 0.4 % N [facility] BASOPHILS # BLD AUTO <0.03 [facility] DIFFERENTIAL METHOD BLD Auto [facility] EOSINOPHIL # BLD AUTO <0.03 [facility] LYMPHOCYTES # BLD AUTO 1.02 [facility] MONOCYTES # BLD AUTO 0.17 [facility] NEUTROPHILS # BLD AUTO 1.32 Low [facility] NRBC # BLD AUTO <0.01 [facility] NRBC/100 WBC BLD-RTO 0 /100 WBC [facility] PLATELET # BLD AUTO 90 Low [facility] Comment on above: No clot detected. [facility] PMV BLD AUTO 9.9 fL 9.0 - 12.7 fL [facility] WBC # BLD AUTO 2.54 Low [facility] Eosinophils/100 WBC (Bld) 0.8 % [facility] Erythrocyte distribution width (RBC) [Ratio] 18.9 % High 11.5 - 15.0 % [facility] Hematocrit (Bld) [Volume fraction] 26.5 % Low 39.0 - 51.0 % [facility] Hemoglobin (Bld) [Mass/Vol] 8.7 g/dL Low 13.0 - 17.0 g/dL [facility] IMM GRANULOCYTES # BLD AUTO <0.03 [facility] IMM GRANULOCYTES/LEUK NFR BLD AUTO 0 % [facility] Interpretation and review of laboratory results Abnormal [facility] Lymphocytes/100 WBC (Bld) 40.2 % [facility] MCH (RBC) [Entitic mass] 33.2 pg 26.0 - 34.0 pg [facility] MCHC (RBC) [Mass/Vol] 32.8 g/dL 30.5 - 36.0 g/dL [facility] MCV (RBC) [Entitic vol] 101.1 fL High 80.0 - 100.0 fL [facility] Monocytes/100 WBC (Bld) 6.7 % N [facility] Neutrophils/100 WBC (Bld) 51.9 % [facility] RBC (Bld) [#/Vol] 2.62 10*6/uL Low 4.20 - 6.0 0 m/uL [facility] Specimen Type: BLOOD SPECIMEN Ordering Facility: [facility] Address: [address] [place] [address] Original [facility]: [facility] URATE SERPL-MCNCon 05-10 [facility] URATE SERPL-MCNC 7 mg/dL 4.0 - 8 .1 mg/dL [facility] Specimen Type: BLOOD SPECIMEN Ordering Facility: [facility] Address: [address] [place] [address] Original Ordering Provider: VIMAL CRANDALL [facility] COMP METAB 2000 PNL SERP Russel 05-07-2024 Albumin [Mass/Vol] 3.9 g/dL 3.9 - 4.9 g/dL [facility] ALP [Catalytic activity/Vol] 103 U/L 38 - 113 U/L [facility] ALT [Catalytic activity/Vol] 49 U/L 10 - 54 U/L [facility] Anion gap [Moles/Vol] 11 mmol/L 8 - 15 mmol/L [facility] Calcium [Mass/Vol] 8.9 mg/dL 8.5 - 10. 2 mg/dL [facility] AST SERPL-CCNC 84 U/L High 14 - 40 U/L [facility] BILIRUB SERPL-MCNC 0.5 mg/dL 0.2 - 1.3 mg/dL [facility] PROT SERPL-MCNC 7.2 g/dL 6.3 - 8. 0 g/dL [facility] Chloride [Moles/Vol] 103 mmol/L 98 - 10 7 mmol/L [facility] CO2 [Moles/Vol] 23 mmol/L 22 - 30 mmol/L [facility] Creatinine [Mass/Vol] 1.12 mg/dL 0.73 - 1.22 mg/dL [facility] GFR/1.73 sq M.predicted CKD-EPI (S/P/Bld) [Vol rate/Area] 70 - PINF [facility] Comment on above: Estimated Glomerular Filtration Rate (eGFR) is calculated using the 2020 CKD-EPI creatinine equation. This equation utilizes serum creatinine, sex, and age as parameters. The creatinine assay has traceable calibration to isotope dilution-mass spectrometry. Refer to KDIGO guidelines for clinical interpretation. In patients with unstable renal function, e.g. those with acute kidney injury, the eGFR may not accurately reflect actual GFR. Glucose [Mass/Vol] 286 mg/dL High 74 - 99 mg/dL [facility] Comment on above: The [place] [employer] (ADA) provides guidance for cutoff values for fasting glucose and random glucose. The ADA defines fasting as no caloric intake for at least 8 hours. Fasting plasma glucose results between 100 to 125 mg/dL indicate increased risk for diabetes (prediabetes). Fasting plasma glucose results greater than or equal to 126 mg/dL meet the criteria for diagnosis of diabetes. In the absence of unequivocal hyperglycemia, results should be confirmed by repeat testing. In a patient with classic symptoms of hyperglycemia or hyperglycemic crisis, random plasma glucose results greater than or equal to 200 mg/dL meet the criteria for diagnosis of diabetes. Reference: Standards of Medical Care in Diabetes 2016, [place] [employer]. Diabetes Care. 2016.39(Suppl 1). Interpretation and review of laboratory results Abnormal [facility] Potassium [Moles/Vol] 4.1 mmol/L 3.7 - 5.1 mmol/L [facility] Sodium [Moles/Vol] 137 mmol/L 136 - 144 mmol/L [facility] Urea nitrogen [Mass/Vol] 19 mg/dL 9 - 24 mg/dL [facility] Specimen Type: BLOOD SPECIMEN Ordering Facility: [facility] Address: [address] [place], [place] [id number] Original Ordering Provider: VIMAL CASILLAS [facility] LDH SERPL-CCNCon 024 [facility] LDH SERPL-CCNC 203 U/L 135 - 225 U/L [facility] PHOSPHATE SERPL-MCNCon 1 [facility] PHOSPHATE SERPL-MCNC 3.3 mg/dL 2.7 - 4.8 mg/dL [facility] URATE SERPL-MCNCon 05-07 [facility] URATE SERPL-MCNC 7.2 mg/dL 4.0 - 8 .1 mg/dL [facility] Specimen Type: BLOOD SPECIMEN Ordering Facility: [facility] Address: [address] [place] [address] Original Ordering Provider: [facility] No Panel Informationon 05-07 Specimen Type: BLOOD SPECIMEN Ordering Facility: [facility] Address: [address] [place] [address] Original Ordering Provider: [facility] COMP METAB 2000 PNL SERP Russel 05-03-2024 Albumin [Mass/Vol] 3.8 g/dL Low 3.9 - 4.9 g/dL [facility] ALP [Catalytic activity/Vol] 97 U/L 38 - 113 U/L [facility] ALT [Catalytic activity/Vol] 42 U/L 10 - 54 U/L [facility] Anion gap [Moles/Vol] 11 mmol/L 8 - 15 mmol/L [facility] Calcium [Mass/Vol] 9.1 mg/dL 8.5 - 10. 2 mg/dL [facility] AST SERPL-CCNC 50 U/L High 14 - 40 U/L [facility] BILIRUB SERPL-MCNC 0.6 mg/dL 0.2 - 1.3 mg/dL [facility] PROT SERPL-MCNC 7 g/dL 6.3 - 8. 0 g/dL [facility] Chloride [Moles/Vol] 107 mmol/L 98 - 10 7 mmol/L [facility] CO2 [Moles/Vol] 23 mmol/L 22 - 30 mmol/L [facility] Creatinine [Mass/Vol] 1.02 mg/dL 0.73 - 1.22 mg/dL [facility] GFR/1.73 sq M.predicted CKD-EPI (S/P/Bld) [Vol rate/Area] 79 - PINF [facility] Comment on above: Estimated Glomerular Filtration Rate (eGFR) is calculated using the 2020 CKD-EPI creatinine equation. This equation utilizes serum creatinine, sex, and age as parameters. The creatinine assay has traceable calibration to isotope dilution-mass spectrometry. Refer to KDIGO guidelines for clinical interpretation. In patients with unstable renal function, e.g. those with acute kidney injury, the eGFR may not accurately reflect actual GFR. Glucose [Mass/Vol] 294 mg/dL High 74 - 99 mg/dL [facility] Comment on above: The [place] Diab[employer] s Association (ADA) provides guidance for cutoff values for fasting glucose and random glucose. The ADA defines fasting as no caloric intake for at least 8 hours. Fasting plasma glucose results between 100 to 125 mg/dL indicate increased risk for diabetes (prediabetes). Fasting plasma glucose results greater than or equal to 126 mg/dL meet the criteria for diagnosis of diabetes. In the absence of unequivocal hyperglycemia, results should be confirmed by repeat testing. In a patient with classic symptoms of hyperglycemia or hyperglycemic crisis, random plasma glucose results greater than or equal to 200 mg/dL meet the criteria for diagnosis of diabetes. Reference: Standards of Medical Care in Diabetes 2016, [place] [employer]. Diabetes Care. 2016.39(Suppl 1). Interpretation and review of laboratory results Abnormal [facility] Potassium [Moles/Vol] 4.2 mmol/L 3.7 - 5.1 mmol/L [facility] Sodium [Moles/Vol] 141 mmol/L 136 - 144 mmol/L [facility] Urea nitrogen [Mass/Vol] 19 mg/dL 9 - 24 mg/dL [facility] Specimen Type: BLOOD SPECIMEN Ordering Facility: [facility] Address: [address] [place] [address] Original Ordering Provider: [facility] LDH SERPL-CCNCon 024 [facility] LDH SERPL-CCNC 171 U/L 135 - 225 U/L [facility] Specimen Type: BLOOD SPECIMEN Ordering Facility: [facility] Address: [address] [place] [address] Original Ordering Provider: [facility] PHOSPHATE SERPL-MCNCon 1 07-04-2023 [facility] PHOSPHATE SERPL-MCNC 2.9 mg/dL 2.7 - 4.8 mg/dL [facility] Specimen Type: BLOOD SPECIMEN Ordering Facility: [facility] Address: [address] [place] [address] Original Ordering Provider: [facility] CBC W AUTO DIFF BLDon Basophils/100 WBC (Bld) 0.4 % N [facility] BASOPHILS # BLD AUTO <0.03 [facility] DIFFERENTIAL METHOD BLD Auto [facility] EOSINOPHIL # BLD AUTO <0.03 [facility] LYMPHOCYTES # BLD AUTO 1 [facility] MONOCYTES # BLD AUTO 0.25 [facility] NEUTROPHILS # BLD AUTO 1.34 Low [facility] NRBC # BLD AUTO <0.01 [facility] NRBC/100 WBC BLD-RTO 0 /100 WBC [facility] PLATELET # BLD AUTO 103 Low N [facility] PMV BLD AUTO 10.5 fL 9.0 - 12.7 fL [facility] WBC # BLD AUTO 2.6 Low [facility] Eosinophils/100 WBC (Bld) 0 % [facility] Erythrocyte distribution width (RBC) [Ratio] 17.7 % High 11.5 - 15.0 % [facility] Hematocrit (Bld) [Volume fraction] 28.2 % Low 39.0 - 51.0 % [facility] Hemoglobin (Bld) [Mass/Vol] 9.3 g/dL Low 13.0 - 17.0 g/dL [facility] IMM GRANULOCYTES # BLD AUTO <0.03 [facility] IMM GRANULOCYTES/LEUK NFR BLD AUTO 0 % [facility] Interpretation and review of laboratory results Abnormal [facility] Lymphocytes/100 WBC (Bld) 38.5 % [facility] MCH (RBC) [Entitic mass] 32.6 pg 26.0 - 34.0 pg [facility] MCHC (RBC) [Mass/Vol] 33 g/dL 30.5 - 36.0 g/dL [facility] MCV (RBC) [Entitic vol] 98.9 fL 80.0 - 100.0 fL [facility] Monocytes/100 WBC (Bld) 9.6 % [facility] Neutrophils/100 WBC (Bld) 51.5 % [facility] RBC (Bld) [#/Vol] 2.85 10*6/uL Low 4.20 - 6.0 0 m/uL [facility] Specimen Type: BLOOD SPECIMEN Ordering Facility: [facility] Address: [address] [place] [address] Original Ordering Provider: VIMAL CRANDALL [facility] No Panel Informationon 04-25 [facility] BACTERIA BLD CULT CULTURE, BLOOD: No growth 5 days [facility] Original Ordering Provider: FEDERICO EUGENE [facility] CBC W Auto Differential pane l (Bld)on 04-24-2024 Anisocytosis Ql (Bld) Present Normal [facility] Comment on above: Order Comment: Speci men Type: BLOOD SPECIMENOrdering Facility: [facility] Address: [address] [place] [address] Performed By: #### 5 7021-8 ####[facility] LABORATORYIA [id number] [place] [address] [place] Basophils (Bld) [#/Vol] 0.05 10*3/uL Normal <0.11 [facility] Comment on above: Order Comment: Speci men Type: BLOOD SPECIMENOrdering Facility: [facility] Address: [address] [place] [address] Performed By: #### 5 7021-8 ####[facility] [id number] [place] [address] [place] Basophils/100 WBC (Bld) 1.0 % Normal [facility] Comment on above: Order Comment: Speci men Type: BLOOD SPECIMENOrdering Facility: [facility] Address: [address] [place] [address] Performed By: #### 5 7021-8 ####[facility] [id number] [place] [address] [place] Differential cell count method Nom (Bld) Manual Normal [facility] Comment on above: Order Comment: Speci men Type: BLOOD SPECIMENOrdering Facility: [facility] Address: [address] [place] [address] Performed By: #### 5 7021-8 ####[facility] LABORATORYIA [id number] [place] [address] [place] Eosinophils (Bld) [#/Vol] 0.00 10*3/uL Normal <0.46 [facility] Comment on above: Order Comment: Speci men Type: BLOOD SPECIMENOrdering Facility: [facility] Address: [address] [place] [address] Performed By: #### 5 7021-8 ####[facility] LABORATORYCLIA [id number] [place] [address] [place] Eosinophils/100 WBC (Bld) 0.0 % Normal [facility] Comment on above: Order Comment: Speci men Type: BLOOD SPECIMENOrdering Facility: [facility] Address: [address] [place] [address] Performed By: #### 5 7021-8 ####[facility] LABORATORYIA [id number] [place] [address] [place] Erythrocyte distribution width (RBC) [Ratio] 17.3 % High 11.5-15.0 [facility] Comment on above: Order Comment: Speci men Type: BLOOD SPECIMENOrdering Facility: [facility] Address: [address] [place] [address] Performed By: #### 5 7021-8 ####[facility] [id number] [place] [address] [place] Hematocrit (Bld) [Volume fraction] 25.8 % Low 39.0-51.0 [facility] Comment on above: Order Comment: Speci men Type: BLOOD SPECIMENOrdering Facility: [facility] Address: [address] [place] [address] Performed By: #### 5 7021-8 ####[facility] LABORATORYIA [id number] [place] [address] [place] Hemoglobin (Bld) [Mass/Vol] 8.8 g/dL Low 13.0-17.0 [facility] Comment on above: Order Comment: Speci men Type: BLOOD SPECIMENOrdering Facility: [facility] Address: [address] [place] [address] Performed By: #### 5 7021-8 ####[facility] LABORATORYIA [id number] [place] [address] [place] Lymphocytes (Bld) [#/Vol] 1.36 10*3/uL Normal 1.00-4.00 [facility] Comment on above: Order Comment: Speci men Type: BLOOD SPECIMENOrdering Facility: [facility] Address: [address] [place] [address] Performed By: #### 5 7021-8 ####[facility] LABORATORYCLIA [id number] [address] [place] Lymphocytes/100 WBC (Bld) 29.0 % Normal [facility] Comment on above: Order Comment: Speci men Type: BLOOD SPECIMENOrdering Facility: [facility] Address: [address] [place] [address] Performed By: #### 5 7021-8 ####[facility] [id number] [place] [address] [place] MCH (RBC) [Entitic mass] 32.7 pg Normal 26.0-34.0 [facility] Comment on above: Order Comment: Speci men Type: BLOOD SPECIMENOrdering Facility: [facility] Address: [address] [place] [address] Performed By: #### 5 7021-8 ####[facility] [id number] [address] [place] MCHC (RBC) [Mass/Vol] 34.1 g/dL Normal 30.5-36.0 [facility] Comment on above: Order Comment: Speci men Type: BLOOD SPECIMENOrdering Facility: [facility] Address: [address] [place] [address] Performed By: #### 5 7021-8 ####[facility] LABORATORYIA [id number] [address] [place] MCV (RBC) [Entitic vol] 95.9 fL Normal 80.0-100.0 [facility] Comment on above: Order Comment: Speci men Type: BLOOD SPECIMENOrdering Facility: [facility] Address: [address] [place] [address] Performed By: #### 5 7021-8 ####[facility] LABORATORYIA [id number] [place] [address] [place] Monocytes (Bld) [#/Vol] 0.23 10*3/uL Normal <0.87 [facility] Comment on above: Order Comment: Speci men Type: BLOOD SPECIMENOrdering Facility: [facility] Address: [address] [place] [address] Performed By: #### 5 7021-8 ####[facility] LABORATORYCLIA [id number] [place] [address] [place] Monocytes/100 WBC (Bld) 5.0 % Normal [facility] Comment on above: Order Comment: Speci men Type: BLOOD SPECIMENOrdering Facility: [facility] Address: [address] [place] [address] Performed By: #### 5 7021-8 ####[facility] [id number] [place] [address] [place] Neutrophils (Bld) [#/Vol] 3.05 10*3/uL Normal 1.45-7.50 [facility] Comment on above: Order Comment: Speci men Type: BLOOD SPECIMENOrdering Facility: [facility] Address: [address] [place] [address] Performed By: #### 5 7021-8 ####[facility] LABORATORYIA [id number] [place] [address] [place] Neutrophils/100 WBC (Bld) 65.0 % Normal [facility] Comment on above: Order Comment: Speci men Type: BLOOD SPECIMENOrdering Facility: [facility] Address: [address] [place] [address] Performed By: #### 5 7021-8 ####[facility] LABORATORYIA [id number] [place] [address] [place] Nucleated RBC (Bld) [#/Vol] 10*3/uL Normal <0.01 [facility] Comment on above: Order Comment: Speci men Type: BLOOD SPECIMENOrdering Facility: [facility] Address: [address] [place] [address] Performed By: #### 5 7021-8 ####[facility] [id number] [place] [address] [place] Nucleated RBC/100 WBC (Bld) [Ratio] 0.0 /100 WBC Normal [facility] Comment on above: Order Comment: Speci men Type: BLOOD SPECIMENOrdering Facility: [facility] Address: [address] [place] [address] Performed By: #### 5 7021-8 ####[facility] [id number] [place] [address] [place] Platelet mean volume (Bld) [Entitic vol] 9.2 fL Normal 9.0-12.7 [facility] Comment on above: Order Comment: Speci men Type: BLOOD SPECIMENOrdering Facility: [facility] Address: [address] [place] [address] Performed By: #### 5 7021-8 ####[facility] [id number] [place] [address] [place] Platelets (Bld) [#/Vol] 122 10*3/uL Low 150-400 [facility] Comment on above: Order Comment: Speci men Type: BLOOD SPECIMENOrdering Facility: [facility] Address: [address] [place] [address] Performed By: #### 5 7021-8 ####[facility] LABORATORYIA [id number] [facility] [place] [address] [place] Platelets Estimate (Bld) [#/Vol] Decreased Normal [facility] Comment on above: Order Comment: Speci men Type: BLOOD SPECIMENOrdering Facility: [facility] Address: [address] [place] [address] Performed By: #### 5 7021-8 ####[facility] LABORATORYIA [id number] [place] [address] [place] Polychromasia LM Ql (Bld) Slight Normal [facility] Comment on above: Order Comment: Speci men Type: BLOOD SPECIMENOrdering Facility: [facility] Address: [address] [place] [address] Performed By: #### 5 7021-8 ####[facility] LABORATORYCLIA [id number] [facility] [place] [address] [place] RBC (Bld) [#/Vol] 2.69 10*6/uL Low 4.20-6.00 [facility] Comment on above: Order Comment: Speci men Type: BLOOD SPECIMENOrdering Facility: [facility] Address: [address] [place] [address] Performed By: #### 5 7021-8 ####[facility] LABORATORYIA [id number] [place] [address] [facility] Reviewed: see result s of individual morphologies Normal [facility] Comment on above: Order Comment: Speci men Type: BLOOD SPECIMENOrdering Facility: [facility] Address: [address] [place] [address] Performed By: #### 5 7021-8 ####[facility] LABORATORYIA [id number] [place] [address] [place] WBC (Bld) [#/Vol] 4.69 10*3/uL Normal 3.70-11.00 [facility] Comment on above: Order Comment: Speci men Type: BLOOD SPECIMENOrdering Facility: [facility] Address: [address] [place] [address] Performed By: #### 5 7021-8 ####[facility] LABORATORYCLIA [id number] [facility] [place] [address] [place] CNDSon 04-24-2024 CNDS Normal [facility] Magnesium SerPl-mCncon 04-24 Magnesium [Mass/Vol] 2.0 mg/dL Normal 1.7-2.3 [facility] Comment on above: Order Comment: Speci men Type: BLOOD SPECIMENOrdering Facility: [facility] Address: [address] [place] [address] Performed By: #### 2 4362-6, ####[facility] LABORATORYCLIA [id number] [place] [address] [place] Renal function 2000 panelon 04-24-2024 Albumin [Mass/Vol] 3.1 g/dL Low 3.9-4.9 [facility] Comment on above: Order Comment: Speci men Type: BLOOD SPECIMENOrdering Facility: [facility] Address: [address] [place] [address] Performed By: #### 2 4362-6, ####[facility] LABORATORYIA [id number] [place] [address] [place] Anion gap [Moles/Vol] 7 mmol/L Low 8-15 [facility] Comment on above: Order Comment: Speci men Type: BLOOD SPECIMENOrdering Facility: [facility] Address: [address] [place] [address] Performed By: #### 2 4362-6, ####[facility] [id number] [place] [address] [place] Calcium [Mass/Vol] 8.1 mg/dL Low 8.5-10.2 [facility] Comment on above: Order Comment: Speci men Type: BLOOD SPECIMENOrdering Facility: [facility] Address: [address] [place] [address] Performed By: #### 2 4362-6, ####[facility] LABORATORYIA [id number] [place] [address] [place] Chloride [Moles/Vol] 103 mmol/L Normal 98-107 [facility] Comment on above: Order Comment: Speci men Type: BLOOD SPECIMENOrdering Facility: [facility] Address: [address] [place] [address] Performed By: #### 2 4362-6, ####[facility] LABORATORYIA [id number] [place] [address] [place] CO2 [Moles/Vol] 24 mmol/L Normal 22-30 [facility] Comment on above: Order Comment: Yvonnei nneka Type: BLOOD SPECIMENOrdering Facility: [facility] Address: [address] [place] [address] Performed By: #### 2 4362-6, ####[facility] LABORATORYCLIA [id number] [facility] [place] [address] [place] Creatinine [Mass/Vol] 1.03 mg/dL Normal 0.73-1.22 [facility] Comment on above: Order Comment: Speci men Type: BLOOD SPECIMENOrdering Facility: [facility] Address: [address] [place] [address] Performed By: #### 2 4362-6, ####[facility] LABORATORYCLIA [id number] [facility] [place] [address] [place] Creatinine and Glomerular filtration rate.predicted panel (S/P/Bld) 78 mL/min/1.73m??? Normal >=60 [facility] Comment on above: Order Comment: Speci [facility] Type: BLOOD SPECIMENOrdering Facility: [facility] Address: [address] [place] [address] Result Comment: Deepthi mated Glomerular Filtration Rate (eGFR) is calculated using the 2020 CKD-EPI creatinine equation. This equation utilizes serum creatinine, sex, and age as parameters. The creatinine assay has traceable calibration to isotope dilution-mass spectrometry. Refer to KDIGO guidelines for clinical interpretation. In patients with unstable renal function, e.g. those with acute kidney injury, the eGFR may not accurately reflect actual GFR. Performed By: #### 2 4362-6, ####[facility] LABORATORYCLIA [id number] [place] [address] [place] Glucose [Mass/Vol] 203 mg/dL High 74-99 [facility] Comment on above: Order Comment: Yvonnei men Type: BLOOD SPECIMENOrdering Facility: [facility] Address: [address] [place] [address] Result Comment: The [place] Diabetes Association (ADA) provides guidance for cutoff values for fasting glucose and random glucose. The ADA defines fasting as no caloric intake for at least 8 hours. Fasting plasma glucose results between 100 to 125 mg/dL indicate increased risk for diabetes (prediabetes).Fasting plasma glucose results greater than or equal to 126 mg/dL meet the criteria for diagnosis of diabetes. In the absence of unequivocal hyperglycemia, results should be confirmed by repeat testing. In a patient with classic symptoms of hyperglycemia or hyperglycemic crisis, random plasma glucose results greater than or equal to 200 mg/dL meet the criteria for diagnosis of diabetes.Reference: Standards of Medical Care in Diabetes 2016, [place] [employer]. Diabetes Care. 2016.39(Suppl 1). Performed By: #### 2 4362-6, ####[facility] LABORATORYCLIA [id number] [place] [address] [place] Phosphate [Mass/Vol] 3.1 mg/dL Normal 2.7-4.8 [facility] Comment on above: Order Comment: Speci men Type: BLOOD SPECIMENOrdering Facility: [facility] Address: [address] [place] [address] Performed By: #### 2 4362-6, ####[facility] [id number] [place] [address] [place] Potassium [Moles/Vol] 3.8 mmol/L Normal 3.7-5.1 [facility] Comment on above: Order Comment: Yvonnei men Type: BLOOD SPECIMENOrdering Facility: [facility] Address: [address] [place] [address] Performed By: #### 2 4362-6, ####[facility] HELENACLIA [id number] [place] [address] [place] Sodium [Moles/Vol] 134 mmol/L Low 136-144 [facility] Comment on above: Order Comment: Yvonnei men Type: BLOOD SPECIMENOrdering Facility: [facility] Address: [address] [place] [id number] Performed By: #### 2 4362-6, ####[facility] LABORATORYCLIA [id number] [facility] [place] [address] [place] Urea nitrogen [Mass/Vol] 16 mg/dL Normal 9-24 [facility] Comment on above: Order Comment: Speci men Type: BLOOD SPECIMENOrdering Facility: [facility] Address: [address] [place] [address] Performed By: #### 2 4362-6, 44422-5 ####[facility] LABORATORYIA [id number] [place] [address] [place] CASE MANAGEMon 04-23-2024 CASE MANAGEM Normal [facility] CASE MANAGEM Normal [facility] CBC W Auto Differential pane l (Bld)on 04-23-2024 Anisocytosis Ql (Bld) Present Normal [facility] Comment on above: Order Comment: Speci men Type: BLOOD SPECIMENOrdering Facility: [facility] Address: [address] [place] [address] Performed By: #### 5 7021-8 ####[facility] [id number] [place] [address] [place] Basophils (Bld) [#/Vol] 0.00 10*3/uL Normal <0.11 [facility] Comment on above: Order Comment: Speci men Type: BLOOD SPECIMENOrdering Facility: [facility] Address: [address] [place] [address] Performed By: #### 5 7021-8 ####[facility] LABORATORYIA [id number] [place] [address] [place] Basophils/100 WBC (Bld) 0.0 % Normal [facility] Comment on above: Order Comment: Speci men Type: BLOOD SPECIMENOrdering Facility: [facility] Address: [address] [place] [address] Performed By: #### 5 7021-8 ####[facility] LABORATORYIA [id number] [place] [address] [place] Differential cell count method Nom (Bld) Manual Normal [facility] Comment on above: Order Comment: Speci men Type: BLOOD SPECIMENOrdering Facility: [facility] Address: [address] [place] [address] Performed By: #### 5 7021-8 ####[facility] [id number] [place] [address] [place] Eosinophils (Bld) [#/Vol] 0.00 10*3/uL Normal <0.46 [facility] Comment on above: Order Comment: Speci men Type: BLOOD SPECIMENOrdering Facility: [facility] Address: [address] [place] [address] Performed By: #### 5 7021-8 ####[facility] [id number] [address] [place] Eosinophils/100 WBC (Bld) 0.0 % Normal [facility] Comment on above: Order Comment: Speci men Type: BLOOD SPECIMENOrdering Facility: [facility] Address: [address] [place] [address] Performed By: #### 5 7021-8 ####[facility] [id number] [address] [place] Erythrocyte distribution width (RBC) [Ratio] 17.3 % High 11.5-15.0 [facility] Comment on above: Order Comment: Speci men Type: BLOOD SPECIMENOrdering Facility[facility] Address: [address] [place] [address] Performed By: #### 5 7021-8 ####[facility] [id number] [address] [place] Hematocrit (Bld) [Volume fraction] 27.6 % Low 39.0-51.0 [facility] Comment on above: Order Comment: Speci men Type: BLOOD SPECIMENOrdering Facility: [facility] Address: [address] [place] [address] Performed By: #### 5 7021-8 ####[facility] LABORATORYIA [id number] [place] [id number] [place] Hemoglobin (Bld) [Mass/Vol] 9.0 g/dL Low 13.0-17.0 [facility] Comment on above: Order Comment: Speci men Type: BLOOD SPECIMENOrdering Facility: [facility] Address: [address] [place] [address] Performed By: #### 5 7021-8 ####[facility] LABORATORYCLIA [id number] [place] [address] [place] Lymphocytes (Bld) [#/Vol] 1.30 10*3/uL Normal 1.00-4.00 [facility] Comment on above: Order Comment: Speci men Type: BLOOD SPECIMENOrdering Facility: [facility] Address: [address] [place] [address] Performed By: #### 5 7021-8 ####[facility] HELENACLIA [id number] [address] [place] Lymphocytes/100 WBC (Bld) 19.0 % Normal [facility] Comment on above: Order Comment: Speci men Type: BLOOD SPECIMENOrdering Facility: [facility] Address: [address] [place] [address] Performed By: #### 5 7021-8 ####[facility] [id number] [place] [id number] [place] MCH (RBC) [Entitic mass] 31.8 pg Normal 26.0-34.0 [facility] Comment on above: Order Comment: Speci men Type: BLOOD SPECIMENOrdering Facility: [facility] Address: [address] [place] [address] Performed By: #### 5 7021-8 ####[facility] LABORATORYCLIA [id number] [place] [address] [place] MCHC (RBC) [Mass/Vol] 32.6 g/dL Normal 30.5-36.0 [facility] Comment on above: Order Comment: Speci men Type: BLOOD SPECIMENOrdering Facility: [facility] Address: [address] [place] [address] Performed By: #### 5 7021-8 ####[facility] LABORATORYCLIA [id number] [place] [address] [place] MCV (RBC) [Entitic vol] 97.5 fL Normal 80.0-100.0 [facility] Comment on above: Order Comment: Speci men Type: BLOOD SPECIMENOrdering Facility: [facility] Address: [address] [place] [address] Performed By: #### 5 7021-8 ####[facility] LABORATORYIA [id number] [place] [address] [place] Monocytes (Bld) [#/Vol] 0.34 10*3/uL Normal <0.87 [facility] Comment on above: Order Comment: Speci men Type: BLOOD SPECIMENOrdering Facility: [facility] Address: [address] [place] [address] Performed By: #### 5 7021-8 ####[facility] [id number] [place] [id number] [place] Monocytes/100 WBC (Bld) 5.0 % Normal [facility] Comment on above: Order Comment: Speci men Type: BLOOD SPECIMENOrdering Facility: [facility] Address: [address] [place] [address] Performed By: #### 5 7021-8 ####[facility] [id number] [place] [address] [place] Neutrophils (Bld) [#/Vol] 5.20 10*3/uL Normal 1.45-7.50 [facility] Comment on above: Order Comment: Speci men Type: BLOOD SPECIMENOrdering Facility: [facility] Address: [address] [place] [address] Performed By: #### 5 7021-8 ####[facility] [id number] [place] [address] [place] Neutrophils/100 WBC (Bld) 76.0 % Normal [facility] Comment on above: Order Comment: Speci men Type: BLOOD SPECIMENOrdering Facility: [facility] Address: [address] [place] [address] Performed By: #### 5 7021-8 ####[facility] LABORATORYIA [id number] [facility] [place] [address] [place] Nucleated RBC (Bld) [#/Vol] 10*3/uL Normal <0.01 [facility] Comment on above: Order Comment: Speci men Type: BLOOD SPECIMENOrdering Facility: [facility] Address: [address] [place] [address] Performed By: #### 5 7021-8 ####[facility] LABORATORYIA [id number] [place] [address] [place] Nucleated RBC/100 WBC (Bld) [Ratio] 0.0 /100 WBC Normal [facility] Comment on above: Order Comment: Speci men Type: BLOOD SPECIMENOrdering Facility: [facility] Address: [address] [place] [address] Performed By: #### 5 7021-8 ####[facility] [id number] [facility] [place] [address] [place] Platelet mean volume (Bld) [Entitic vol] 9.9 fL Normal 9.0-12.7 [facility] Comment on above: Order Comment: Speci men Type: BLOOD SPECIMENOrdering Facility: [facility] Address: [address] [place] [address] Performed By: #### 5 7021-8 ####[facility] [id number] [place] [address] [place] Platelets (Bld) [#/Vol] 122 10*3/uL Low 150-400 [facility] Comment on above: Order Comment: Speci men Type: BLOOD SPECIMENOrdering Facility: [facility] Address: [address] [place] [address] Performed By: #### 5 7021-8 ####[facility] LABORATORYCLIA [id number] [facility] [place] [address] [place] Platelets Estimate (Bld) [#/Vol] Decreased Normal [facility] Comment on above: Order Comment: Speci men Type: BLOOD SPECIMENOrdering Facility: [facility] Address: [address] [place] [address] Performed By: #### 5 7021-8 ####[facility] LABORATORYIA [id number] [facility] [place] [address] [place] Polychromasia LM Ql (Bld) Slight Normal [facility] Comment on above: Order Comment: Speci men Type: BLOOD SPECIMENOrdering Facility: [facility] Address: [address] [place] [address] Performed By: #### 5 7021-8 ####[facility] [id number] [place] [id number] [place] RBC (Bld) [#/Vol] 2.83 10*6/uL Low 4.20-6.00 [facility] Comment on above: Order Comment: Speci men Type: BLOOD SPECIMENOrdering Facility: [facility] Address: [address] [place] [address] Performed By: #### 5 7021-8 ####[facility] [id number] [place] [address] [place] RED CELL MORPH Reviewed: see result s of individual morphologies Normal [facility] Comment on above: Order Comment: Speci men Type: BLOOD SPECIMENOrdering Facility: [facility] Address: [address] [place] [address] Performed By: #### 5 7021-8 ####[facility] [id number] [place] [address] [place] Toxic granules LM Ql (Bld) Present Normal [facility] Comment on above: Order Comment: Speci men Type: BLOOD SPECIMENOrdering Facility: [facility] Address: [address] [place] [address] Performed By: #### 5 7021-8 ####[facility] LABORATORYCLIA [id number] [facility] [place] [address] [place] WBC (Bld) [#/Vol] 6.84 10*3/uL Normal 3.70-11.00 [facility] Comment on above: Order Comment: Speci men Type: BLOOD SPECIMENOrdering Facility: [facility] Address: [address] [place] [address] Performed By: #### 5 7021-8 ####[facility] LABORATORYCLIA [id number] [place] [address] [place] Magnesium SerPl-ncon 04-23 Magnesium [Mass/Vol] 1.5 mg/dL Low 1.7-2.3 [facility] Comment on above: Order Comment: Speci men Type: BLOOD SPECIMENOrdering Facility: [facility] Address: [address] [place] [address] Performed By: #### 2 4362-6, ####[facility] [id number] [place] [address] [place] Renal function 2000 [facility] 04-23-2024 Albumin [Mass/Vol] 3.0 g/dL Low 3.9-4.9 [facility] Comment on above: Order Comment: Speci men Type: BLOOD SPECIMENOrdering Facility: [facility] Address: [address] [place] [address] Performed By: #### 2 4362-6, ####[facility] [id number] [place] [address] [place] Anion gap [Moles/Vol] 9 mmol/L Normal 8-15 [facility] Comment on above: Order Comment: Speci men Type: BLOOD SPECIMENOrdering Facility: [facility] Address: [address] [place] [address] Performed By: #### 2 4362-6, ####[facility] LABORATORYIA [id number] [place] [address] [place] Calcium [Mass/Vol] 8.5 mg/dL Normal 8.5-10.2 [facility] Comment on above: Order Comment: Speci men Type: BLOOD SPECIMENOrdering Facility: [facility] Address: [address] [place] [address] Performed By: #### 2 4362-6, ####[facility] LABORATORYCLIA [id number] [facility] [place] [address] [place] Chloride [Moles/Vol] 105 mmol/L Normal 98-107 [facility] Comment on above: Order Comment: Speci men Type: BLOOD SPECIMENOrdering Facility: [facility] Address: [address] [place] [address] Performed By: #### 2 4362-6, ####[facility] LABORATORYCLIA [id number] [place] [address] [place] CO2 [Moles/Vol] 24 mmol/L Normal 22-30 [facility] Comment on above: Order Comment: Speci men Type: BLOOD SPECIMENOrdering Facility: [facility] Address: [address] [place] [address] Performed By: #### 2 4362-6, ####[facility] LABORATORYCLIA [id number] [facility] [place] [address] [place] Creatinine [Mass/Vol] 1.11 mg/dL Normal 0.73-1.22 [facility] Comment on above: Order Comment: Speci men Type: BLOOD SPECIMENOrdering Facility: [facility] Address: [address] [place] [address] Performed By: #### 2 4362-6, ####[facility] LABORATORYCLIA [id number] [place] [address] [place] Creatinine and Glomerular filtration rate.predicted panel (S/P/Bld) 71 mL/min/1.73m??? Normal >=60 [facility] Comment on above: Order Comment: Speci men Type: BLOOD SPECIMENOrdering Facility: [facility] Address: [address] [place] [address] Result Comment: Deepthi mated Glomerular Filtration Rate (eGFR) is calculated using the 2020 CKD-EPI creatinine equation. This equation utilizes serum creatinine, sex, and age as parameters. The creatinine assay has traceable calibration to isotope dilution-mass spectrometry. Refer to KDIGO guidelines for clinical interpretation. In patients with unstable renal function, e.g. those with acute kidney injury, the eGFR may not accurately reflect actual GFR. Performed By: #### 2 4362-6, ####[facility] LABORATORYCLIA [id number] [place] [address] [place] Glucose [Mass/Vol] 202 mg/dL High 74-99 [facility] Comment on above: Order Comment: Casie early Type: BLOOD SPECIMENOrdering Facility: [facility] Address: [address] [place] [address] Result Comment: The [place] Diabetes [employer] (ADA) provides guidance for cutoff values for fasting glucose and random glucose. The ADA defines fasting as no caloric intake for at least 8 hours. Fasting plasma glucose results between 100 to 125 mg/dL indicate increased risk for diabetes (prediabetes).Fasting plasma glucose results greater than or equal to 126 mg/dL meet the criteria for diagnosis of diabetes. In the absence of unequivocal hyperglycemia, results should be confirmed by repeat testing. In a patient with classic symptoms of hyperglycemia or hyperglycemic crisis, random plasma glucose results greater than or equal to 200 mg/dL meet the criteria for diagnosis of diabetes.Reference: Standards of Medical Care in Diabetes 2016, [place] [employer]. Diabetes Care. 2016.39(Suppl 1). Performed By: #### 2 4362-6, ####[facility] LABORATORYCLIA [id number] [place] [address] [place] Phosphate [Mass/Vol] 3.3 mg/dL Normal 2.7-4.8 [facility] Comment on above: Order Comment: Casie early Type: BLOOD SPECIMENOrdering Facility: [facility] Address: [address] [place] [address] Performed By: #### 2 4362-6, ####[facility] LABORATORYCLIA [id number] [place] [address] [place] Potassium [Moles/Vol] 3.5 mmol/L Low 3.7-5.1 [facility] Comment on above: Order Comment: Speci men Type: BLOOD SPECIMENOrdering Facility: [facility] Address: [address] [place] [address] Performed By: #### 2 4362-6, ####[facility] [id number] [place] [address] [place] Sodium [Moles/Vol] 138 mmol/L Normal 136-144 [facility] Comment on above: Order Comment: Speci men Type: BLOOD SPECIMENOrdering Facility: [facility] Address: [address] [place] [address] Performed By: #### 2 4362-6, ####[facility] LABORATORYIA [id number] [place] [address] [place] Urea nitrogen [Mass/Vol] 18 mg/dL Normal 9-24 [facility] Comment on above: Order Comment: Speci men Type: BLOOD SPECIMENOrdering Facility: [facility] Address: [address] [place] [address] Performed By: #### 2 4362-6, ####[facility] [id number] [place] [address] [place] CBC W Auto Differential pane l (Bld)on 04-22-2024 Anisocytosis Ql (Bld) Present Normal [facility] Comment on above: Order Comment: Speci men Type: BLOOD SPECIMENOrdering Facility: [facility] Address: [address] [place] [address] Performed By: #### 5 7021-8 ####[facility] LABORATORYIA [id number] [place] [address] [place] Band form neutrophils/100 WBC (Bld) 6.0 % Normal [facility] Comment on above: Order Comment: Speci men Type: BLOOD SPECIMENOrdering Facility: [facility] Address: [address] [place] [address] Performed By: #### 5 7021-8 ####[facility] LABORATORYIA [id number] [place] [address] [place] Basophils (Bld) [#/Vol] 0.00 10*3/uL Normal <0.11 [facility] Comment on above: Order Comment: Speci men Type: BLOOD SPECIMENOrdering Facility: [facility] Address: [address] [place] [address] Performed By: #### 5 7021-8 ####[facility] LABORATORYCLIA [id number] [facility] [place] Basophils/100 WBC (Bld) 0.0 % Normal [facility] Comment on above: Order Comment: Speci men Type: BLOOD SPECIMENOrdering Facility: [facility] Address: [address] [place] [address] Performed By: #### 5 7021-8 ####[facility] LABORATORYIA [id number] [place] [address] [place] Dacrocytes LM Ql (Bld) Few Normal [facility] Comment on above: Order Comment: Speci men Type: BLOOD SPECIMENOrdering Facility: [facility] Address: [address] [place] [address] Performed By: #### 5 7021-8 ####[facility] [id number] [address] [place] Differential cell count method Nom (Bld) Manual Normal [facility] Comment on above: Order Comment: Speci men Type: BLOOD SPECIMENOrdering Facility: [facility] Address: [address] [place] [address] Performed By: #### 5 7021-8 ####[facility] LABORATORYIA [id number] [facility] [place] Eosinophils (Bld) [#/Vol] 0.02 10*3/uL Normal <0.46 [facility] Comment on above: Order Comment: Speci men Type: BLOOD SPECIMENOrdering Facility: [facility] Address: [address] [place] [address] Performed By: #### 5 7021-8 ####[facility] LABORATORYCLIA [id number] [place] [address] [place] Eosinophils/100 WBC (Bld) 1.0 % Normal [facility] Comment on above: Order Comment: Speci men Type: BLOOD SPECIMENOrdering Facility: [facility] Address: [address] [place] [address] Performed By: #### 5 7021-8 ####[facility] LABORATORYCLIA [id number] [place] [address] [place] Erythrocyte distribution width (RBC) [Ratio] 17.6 % High 11.5-15.0 [facility] Comment on above: Order Comment: Speci men Type: BLOOD SPECIMENOrdering Facility: [facility] Address: [address] [place] [address] Performed By: #### 5 7021-8 ####[facility] LABORATORYIA [id number] [place] [address] [place] Hematocrit (Bld) [Volume fraction] 24.8 % Low 39.0-51.0 [facility] Comment on above: Order Comment: Speci men Type: BLOOD SPECIMENOrdering Facility: [facility] Address: [address] [place] [address] Performed By: #### 5 7021-8 ####[facility] LABORATORYIA [id number] [place] [address] [place] Hemoglobin (Bld) [Mass/Vol] 8.3 g/dL Low 13.0-17.0 [facility] Comment on above: Order Comment: Speci men Type: BLOOD SPECIMENOrdering Facility: [facility] Address: [address] [place] [address] Performed By: #### 5 7021-8 ####[facility] LABORATORYIA [id number] [place] [address] [place] Lymphocytes (Bld) [#/Vol] 0.82 10*3/uL Low 1.00-4.00 [facility] Comment on above: Order Comment: Speci men Type: BLOOD SPECIMENOrdering Facility: [facility] Address: [address] [place] [address] Performed By: #### 5 7021-8 ####[facility] LABORATORYIA [id number] [address] [place] [facility] Lymphocytes/100 WBC (Bld) 37.0 % Normal [facility] Comment on above: Order Comment: Speci men Type: BLOOD SPECIMENOrdering Facility: [facility] Address: [address] [place] [address] Performed By: #### 5 7021-8 ####[facility] [id number] [address] [place] MCH (RBC) [Entitic mass] 32.7 pg Normal 26.0-34.0 [facility] Comment on above: Order Comment: Speci men Type: BLOOD SPECIMENOrdering Facility: [facility] Address: [address] [place] [address] Performed By: #### 5 7021-8 ####[facility] [id number] [address] [place] MCHC (RBC) [Mass/Vol] 33.5 g/dL Normal 30.5-36.0 [facility] Comment on above: Order Comment: Speci men Type: BLOOD SPECIMENOrdering Facility: [facility] Address: [address] [place] [address] Performed By: #### 5 7021-8 ####[facility] [id number] [address] [place] MCV (RBC) [Entitic vol] 97.6 fL Normal 80.0-100.0 [facility] Comment on above: Order Comment: Speci men Type: BLOOD SPECIMENOrdering Facility: [facility] Address: [address] [place] [address] Performed By: #### 5 7021-8 ####[facility] [id number] [address] [place] Metamyelocytes/100 WBC (Bld) 4.0 % Normal [facility] Comment on above: Order Comment: Speci men Type: BLOOD SPECIMENOrdering Facility: [facility] Address: [address] [place] [address] Performed By: #### 5 7021-8 ####[facility] [id number] [place] [address] [place] Monocytes (Bld) [#/Vol] 0.29 10*3/uL Normal <0.87 [facility] Comment on above: Order Comment: Speci men Type: BLOOD SPECIMENOrdering Facility: [facility] Address: [address] [place] [address] Performed By: #### 5 7021-8 ####[facility] [id number] [place] [id number] [place] Monocytes/100 WBC (Bld) 13.0 % Normal [facility] Comment on above: Order Comment: Speci men Type: BLOOD SPECIMENOrdering Facility: [facility] Address: [address] [place] [address] Performed By: #### 5 7021-8 ####[facility] [id number] [place] [address] [place] MYELO% 2.0 % Normal [facility] Comment on above: Order Comment: Speci men Type: BLOOD SPECIMENOrdering Facility: [facility] Address: [address] [place] [address] Performed By: #### 5 7021-8 ####[facility] LABORATORYIA [id number] [place] [address] [place] Neutrophils (Bld) [#/Vol] 0.91 10*3/uL Low 1.45-7.50 [facility] Comment on above: Order Comment: Speci men Type: BLOOD SPECIMENOrdering Facility: [facility] Address: [address] [place] [address] Performed By: #### 5 7021-8 ####[facility] LABORATORYCLIA [id number] [place] [address] [place] Neutrophils/100 WBC (Bld) 35.0 % Normal [facility] Comment on above: Order Comment: Speci men Type: BLOOD SPECIMENOrdering Facility: [facility] Address: [address] [place] [address] Performed By: #### 5 7021-8 ####[facility] LABORATORYCLIA [id number] [place] [address] [place] Nucleated RBC (Bld) [#/Vol] 0.04 10*3/uL High <0.01 [facility] Comment on above: Order Comment: Speci men Type: BLOOD SPECIMENOrdering Facility: [facility] Address: [address] [place] [address] Performed By: #### 5 7021-8 ####[facility] [id number] [place] [address] [place] Nucleated RBC/100 WBC (Bld) [Ratio] 2.0 /100 WBC Normal [facility] Comment on above: Order Comment: Speci men Type: BLOOD SPECIMENOrdering Facility: [facility] Address: [address] [place] [address] Performed By: #### 5 7021-8 ####[facility] [id number] [place] [address] [place] Platelet mean volume (Bld) [Entitic vol] 9.2 fL Normal 9.0-12.7 [facility] Comment on above: Order Comment: Speci men Type: BLOOD SPECIMENOrdering Facility: [facility] Address: [address] [place] [address] Performed By: #### 5 7021-8 ####[facility] LABORATORYIA [id number] [place] [address] [place] Platelets (Bld) [#/Vol] 119 10*3/uL Low 150-400 [facility] Comment on above: Order Comment: Speci men Type: BLOOD SPECIMENOrdering Facility: [facility] Address: [address] [place] [address] Result Comment: No c lot detected. Performed By: #### 5 7021-8 ####[facility] LABORATORYCLIA [id number] [place] [address] [place] Platelets Estimate (Bld) [#/Vol] Decreased Normal [facility] Comment on above: Order Comment: Speci men Type: BLOOD SPECIMENOrdering Facility: [facility] Address: [address] [place] [address] Performed By: #### 5 7021-8 ####[facility] LABORATORYCLIA [id number] [place] [address] [place] Polychromasia LM Ql (Bld) Slight Normal [facility] Comment on above: Order Comment: Speci men Type: BLOOD SPECIMENOrdering Facility: [facility] Address: [address] [place] [address] Performed By: #### 5 7021-8 ####[facility] [id number] [facility] [place] [address] [place] PROMYL% 2.0 % Normal [facility] Comment on above: Order Comment: Speci men Type: BLOOD SPECIMENOrdering Facility: [facility] Address: [address] [place] [address] Performed By: #### 5 7021-8 ####HERRICK CAMPUSIA [id number] [facility] [place] [address] [place] RBC (Bld) [#/Vol] 2.54 10*6/uL Low 4.20-6.00 [facility] Comment on above: Order Comment: Speci men Type: BLOOD SPECIMENOrdering Facility: [facility] Address: [address] [place] [address] Performed By: #### 5 7021-8 ####[facility] LABORATORYIA [id number] [facility] [place] [address] [place] RED CELL MORPH Reviewed: see result s of individual morphologies Normal [facility] Comment on above: Order Comment: Speci men Type: BLOOD SPECIMENOrdering Facility: [facility] Address: [address] [place] [address] Performed By: #### 5 7021-8 ####[facility] LABORATORYCLIA [id number] [place] [address] [place] Toxic granules LM Ql (Bld) Present Normal [facility] Comment on above: Order Comment: Speci men Type: BLOOD SPECIMENOrdering Facility: [facility] Address: [address] [place] [address] Performed By: #### 5 7021-8 ####[facility] LABORATORYCLIA [id number] [place] [address] [place] WBC (Bld) [#/Vol] 2.21 10*3/uL Low 3.70-11.00 [facility] Comment on above: Order Comment: Speci men Type: BLOOD SPECIMENOrdering Facility: [facility] Address: [address] [place] [address] Performed By: #### 5 7021-8 ####[facility] [id number] [facility] [address] [place] WBC Left Shift Ql (Bld) Present Normal [facility] Comment on above: Order Comment: Speci men Type: BLOOD SPECIMENOrdering Facility: [facility] Address: [address] [place] [address] Performed By: #### 5 7021-8 ####[facility] LABORATORYIA [id number] [facility] [place] [address] [place] Magnesium SerPl-ncon 04-22 Magnesium [Mass/Vol] 1.5 mg/dL Low 1.7-2.3 [facility] Comment on above: Order Comment: Speci men Type: BLOOD SPECIMENOrdering Facility: [facility] Address: [address] [place] [address] Performed By: #### 2 4362-6, 24022-3 ####[facility] LABORATORYIA [id number] [facility] [place] [address] [place] Renal function 2000 panelon 04-22-2024 Albumin [Mass/Vol] 3.1 g/dL Low 3.9-4.9 [facility] Comment on above: Order Comment: Speci men Type: BLOOD SPECIMENOrdering Facility: [facility] Address: [address] [place] [address] Performed By: #### 2 4362-6, ####[facility] LABORATORYIA [id number] [facility] [place] [address] [place] Anion gap [Moles/Vol] 10 mmol/L Normal 8-15 [facility] Comment on above: Order Comment: Speci men Type: BLOOD SPECIMENOrdering Facility: [facility] Address: [address] [place] [address] Performed By: #### 2 4362-6, ####[facility] LABORATORYIA [id number] [place] [address] [place] Calcium [Mass/Vol] 8.5 mg/dL Normal 8.5-10.2 [facility] Comment on above: Order Comment: Speci men Type: BLOOD SPECIMENOrdering Facility: [facility] Address: [address] [place] [address] Performed By: #### 2 4362-6, ####[facility] [id number] [place] [address] [place] Chloride [Moles/Vol] 104 mmol/L Normal 98-107 [facility] Comment on above: Order Comment: Speci men Type: BLOOD SPECIMENOrdering Facility: [facility] Address: [address] [place] [address] Performed By: #### 2 4362-6, ####[facility] LABORATORYCLIA [id number] [facility] [place] [address] [place] CO2 [Moles/Vol] 23 mmol/L Normal 22-30 [facility] Comment on above: Order Comment: Speci men Type: BLOOD SPECIMENOrdering Facility: [facility] Address: [address] [place] [address] Performed By: #### 2 4362-6, ####[facility] LABORATORYCLIA [id number] [place] [address] [place] Creatinine [Mass/Vol] 1.15 mg/dL Normal 0.73-1.22 [facility] Comment on above: Order Comment: Casie early Type: BLOOD SPECIMENOrdering Facility: [facility] Address: [address] [place] [id number] Performed By: #### 2 4362-6, ####[facility] LABORATORYCLIA [id number] [facility] [place] [address] [place] Creatinine and Glomerular filtration rate.predicted panel (S/P/Bld) 68 mL/min/1.73m??? Normal >=60 [facility] Comment on above: Order Comment: Casie early Type: BLOOD SPECIMENOrdering Facility: [facility] Address: [address] [place] [address] Result Comment: Deepthi mated Glomerular Filtration Rate (eGFR) is calculated using the 2020 CKD-EPI creatinine equation. This equation utilizes serum creatinine, sex, and age as parameters. The creatinine assay has traceable calibration to isotope dilution-mass spectrometry. Refer to KDIGO guidelines for clinical interpretation. In patients with unstable renal function, e.g. those with acute kidney injury, the eGFR may not accurately reflect actual GFR. Performed By: #### 2 4362-6, ####[facility] LABORATORYCLIA [id number] [facility] [place] [address] [place] Glucose [Mass/Vol] 239 mg/dL High 74-99 [facility] Comment on above: Order Comment: Casie early Type: BLOOD SPECIMENOrdering Facility: [facility] Address: [address] [place] [address] Result Comment: The [place] Diabetes Association (ADA) provides guidance for cutoff values for fasting glucose and random glucose. The ADA defines fasting as no caloric intake for at least 8 hours. Fasting plasma glucose results between 100 to 125 mg/dL indicate increased risk for diabetes (prediabetes).Fasting plasma glucose results greater than or equal to 126 mg/dL meet the criteria for diagnosis of diabetes. In the absence of unequivocal hyperglycemia, results should be confirmed by repeat testing. In a patient with classic symptoms of hyperglycemia or hyperglycemic crisis, random plasma glucose results greater than or equal to 200 mg/dL meet the criteria for diagnosis of diabetes.Reference: Standards of Medical Care in Diabetes 2016, [place] [employer]. Diabetes Care. 2016.39(Suppl 1). Performed By: #### 2 4362-6, ####[facility] HELENACLIA [id number] [place] [address] [place] Phosphate [Mass/Vol] 3.9 mg/dL Normal 2.7-4.8 [facility] Comment on above: Order Comment: Speci men Type: BLOOD SPECIMENOrdering Facility: [facility] Address: [address] [place] [address] Performed By: #### 2 436-6, ####[facility] [id number] [place] [address] [place] Potassium [Moles/Vol] 3.7 mmol/L Normal 3.7-5.1 [facility] Comment on above: Order Comment: Speci men Type: BLOOD SPECIMENOrdering Facility: [facility] Address: [address] [place] [address] Performed By: #### 2 436-6, ####[facility] [id number] [place] [address] [place] Sodium [Moles/Vol] 137 mmol/L Normal 136-144 [facility] Comment on above: Order Comment: Speci men Type: BLOOD SPECIMENOrdering Facility: [facility] Address: [address] [place] [address] Performed By: #### 2 436-6, ####[facility] [id number] [place] [address] [place] Urea nitrogen [Mass/Vol] 26 mg/dL High 9-24 [facility] Comment on above: Order Comment: Speci men Type: BLOOD SPECIMENOrdering Facility: [facility] Address: [address] [place] [address] Performed By: #### 2 436-6, ####[facility] LABORATORYIA [id number] [facility] [place] [address] [place] CBC W Auto Differential pane l (Bld)on 04-21-2024 Anisocytosis Ql (Bld) Present Normal [facility] Comment on above: Order Comment: Speci men Type: BLOOD SPECIMENOrdering Facility: [facility] Address: [address] [place] [address] Performed By: #### 5 7021-8 ####[facility] LABORATORYIA [id number] [place] [address] [place] Basophilic stippling LM Ql (Bld) Occasional Normal [facility] Comment on above: Order Comment: Speci men Type: BLOOD SPECIMENOrdering Facility: [facility] Address: [address] [place] [address] Performed By: #### 5 7021-8 ####[facility] [id number] [place] [address] [place] Basophils (Bld) [#/Vol] 0.00 10*3/uL Normal <0.11 [facility] Comment on above: Order Comment: Speci men Type: BLOOD SPECIMENOrdering Facility: [facility] Address: [address] [place] [address] Performed By: #### 5 7021-8 ####[facility] [id number] [address] [place] Basophils/100 WBC (Bld) 0.0 % Normal [facility] Comment on above: Order Comment: Speci men Type: BLOOD SPECIMENOrdering Facility: [facility] Address: [address] [place] [address] Performed By: #### 5 7021-8 ####[facility] [id number] [place] [id number] [place] Dacrocytes LM Ql (Bld) Few Normal [facility] Comment on above: Order Comment: Speci men Type: BLOOD SPECIMENOrdering Facility: [facility] Address: [address] [place] [address] Performed By: #### 5 7021-8 ####[facility] LABORATORYCLIA [id number] [place] [address] [facility] [place] Differential cell count method Nom (Bld) Manual Normal [facility] Comment on above: Order Comment: Speci men Type: BLOOD SPECIMENOrdering Facility: [facility] Address: [address] [place] [address] Performed By: #### 5 7021-8 ####[facility] LABORATORYCLIA [id number] [facility] [place] [address] [place] Eosinophils (Bld) [#/Vol] 0.00 10*3/uL Normal <0.46 [facility] Comment on above: Order Comment: Speci men Type: BLOOD SPECIMENOrdering Facility: [facility] Address: [address] [place] [address] Performed By: #### 5 7021-8 ####[facility] [id number] [place] [address] [place] Eosinophils/100 WBC (Bld) 0.0 % Normal [facility] Comment on above: Order Comment: Speci men Type: BLOOD SPECIMENOrdering Facility: [facility] Address: [address] [place] [address] Performed By: #### 5 7021-8 ####[facility] [id number] [address] [place] Erythrocyte distribution width (RBC) [Ratio] 18.5 % High 11.5-15.0 [facility] Comment on above: Order Comment: Speci men Type: BLOOD SPECIMENOrdering Facility: [facility] Address: [address] [place] [address] Performed By: #### 5 7021-8 ####[facility] LABORATORYIA [id number] [place] [id number] [facility] [place] Hematocrit (Bld) [Volume fraction] 24.2 % Low 39.0-51.0 [facility] Comment on above: Order Comment: Speci men Type: BLOOD SPECIMENOrdering Facility: [facility] Address: [address] [place] [address] Performed By: #### 5 7021-8 ####[facility] [id number] [place] [address] [place] Hemoglobin (Bld) [Mass/Vol] 8.0 g/dL Low 13.0-17.0 [facility] Comment on above: Order Comment: Speci men Type: BLOOD SPECIMENOrdering Facility: [facility] Address: [address] [place] [address] Performed By: #### 5 7021-8 ####[facility] LABORATORYIA [id number] [place] [address] [place] Lymphocytes (Bld) [#/Vol] 1.24 10*3/uL Normal 1.00-4.00 [facility] Comment on above: Order Comment: Speci men Type: BLOOD SPECIMENOrdering Facility: [facility] Address: [address] [place] [address] Performed By: #### 5 7021-8 ####[facility] [id number] [place] [address] [place] Lymphocytes/100 WBC (Bld) 39.0 % Normal [facility] Comment on above: Order Comment: Speci men Type: BLOOD SPECIMENOrdering Facility: [facility] Address: [address] [place] [address] Performed By: #### 5 7021-8 ####[facility] LABORATORYIA [id number] [place] [address] [place] MCH (RBC) [Entitic mass] 32.7 pg Normal 26.0-34.0 [facility] Comment on above: Order Comment: Speci men Type: BLOOD SPECIMENOrdering Facility: [facility] Address: [address] [place] [address] Performed By: #### 5 7021-8 ####[facility] LABORATORYIA [id number] [place] [address] [place] MCHC (RBC) [Mass/Vol] 33.1 g/dL Normal 30.5-36.0 [facility] Comment on above: Order Comment: Speci men Type: BLOOD SPECIMENOrdering Facility: [facility] Address: [address] [place] [address] Performed By: #### 5 7021-8 ####[facility] [id number] [place] [address] [place] MCV (RBC) [Entitic vol] 98.8 fL Normal 80.0-100.0 [facility] Comment on above: Order Comment: Speci men Type: BLOOD SPECIMENOrdering Facility: [facility] Address: [address] [place] [address] Performed By: #### 5 7021-8 ####[facility] [id number] [address] [place] Monocytes (Bld) [#/Vol] 0.51 10*3/uL Normal <0.87 [facility] Comment on above: Order Comment: Speci men Type: BLOOD SPECIMENOrdering Facility: [facility] Address: [address] [place] [address] Performed By: #### 5 7021-8 ####[facility] [id number] [address] Monocytes/100 WBC (Bld) 16.0 % Normal [facility] Comment on above: Order Comment: Speci men Type: BLOOD SPECIMENOrdering Facility: [facility] Address: [address] [place] [address] Performed By: #### 5 7021-8 ####[facility] [id number] [place] [address] [facility] [place] MYELO% 3.0 % Normal [facility] Comment on above: Order Comment: Speci men Type: BLOOD SPECIMENOrdering Facility: [facility] Address: [address] [place] [address] Performed By: #### 5 7021-8 ####[facility] [id number] [place] [address] [place] Neutrophils (Bld) [#/Vol] 1.33 10*3/uL Low 1.45-7.50 [facility] Comment on above: Order Comment: Speci men Type: BLOOD SPECIMENOrdering Facility: [facility] Address: [address] [place] [address] Performed By: #### 5 7021-8 ####[facility] LABORATORYCLIA [id number] [place] [address] [place] Neutrophils/100 WBC (Bld) 42.0 % Normal [facility] Comment on above: Order Comment: Speci men Type: BLOOD SPECIMENOrdering Facility: [facility] Address: [address] [place] [address] Performed By: #### 5 7021-8 ####[facility] [id number] [place] [address] [place] Nucleated RBC (Bld) [#/Vol] 0.06 10*3/uL High <0.01 [facility] Comment on above: Order Comment: Speci men Type: BLOOD SPECIMENOrdering Facility: [facility] Address: [address] [place] [address] Performed By: #### 5 7021-8 ####[facility] [id number] [place] [id number] [place] Nucleated RBC/100 WBC (Bld) [Ratio] 2.0 /100 WBC Normal [facility] Comment on above: Order Comment: Speci men Type: BLOOD SPECIMENOrdering Facility: [facility] Address: [address] [place] [address] Performed By: #### 5 7021-8 ####[facility] LABORATORYIA [id number] [place] [id number] [place] Platelet mean volume (Bld) [Entitic vol] 11.2 fL Normal 9.0-12.7 [facility] Comment on above: Order Comment: Speci men Type: BLOOD SPECIMENOrdering Facility: [facility] Address: [address] [place] [address] Performed By: #### 5 7021-8 ####[facility] LABORATORYCLIA [id number] [place] [address] [place] Platelets (Bld) [#/Vol] 108 10*3/uL Low 150-400 [facility] Comment on above: Order Comment: Speci men Type: BLOOD SPECIMENOrdering Facility: [facility] Address: [address] [place] [address] Performed By: #### 5 7021-8 ####[facility] LABORATORYCLIA [id number] [place] [address] [place] Platelets Estimate (Bld) [#/Vol] Decreased Normal [facility] Comment on above: Order Comment: Speci men Type: BLOOD SPECIMENOrdering Facility: [facility] Address: [address] [place] [address] Performed By: #### 5 7021-8 ####[facility] LABORATORYIA [id number] [place] [address] [place] Polychromasia LM Ql (Bld) Slight Normal [facility] Comment on above: Order Comment: Speci men Type: BLOOD SPECIMENOrdering Facility: [facility] Address: [address] [place] [address] Performed By: #### 5 7021-8 ####[facility] [id number] [facility] [place] [address] [place] RBC (Bld) [#/Vol] 2.45 10*6/uL Low 4.20-6.00 [facility] Comment on above: Order Comment: Speci men Type: BLOOD SPECIMENOrdering Facility: [facility] Address: [address] [place] [address] Performed By: #### 5 7021-8 ####[facility] [id number] [facility] [place] [address] [place] RED CELL MORPH Reviewed: see result s of individual morphologies Normal [facility] Comment on above: Order Comment: Speci men Type: BLOOD SPECIMENOrdering Facility: [facility] Address: [address] [place] [address] Performed By: #### 5 7021-8 ####[facility] LABORATORYCLIA [id number] [facility] [place] [address] [place] WBC (Bld) [#/Vol] 3.17 10*3/uL Low 3.70-11.00 [facility] Comment on above: Order Comment: Speci men Type: BLOOD SPECIMENOrdering Facility: [facility] Address: [address] [place] [address] Performed By: #### 5 7021-8 ####[facility] LABORATORYCLIA [id number] [place] [address] [place] WBC Left Shift Ql (Bld) Present Normal [facility] Comment on above: Order Comment: Speci men Type: BLOOD SPECIMENOrdering Facility: [facility] Address: [address] [place] [address] Performed By: #### 5 7021-8 ####[facility] [id number] [place] [address] [place] Renal function 2000 [facility] 04-21-2024 Albumin [Mass/Vol] 3.0 g/dL Low 3.9-4.9 [facility] Comment on above: Order Comment: Speci men Type: BLOOD SPECIMENOrdering Facility: [facility] Address: [address] [place] [address] Performed By: #### 2 4362-6 ####[facility] LABORATORYIA [id number] [place] [address] [place] Anion gap [Moles/Vol] 10 mmol/L Normal 8-15 [facility] Comment on above: Order Comment: Speci men Type: BLOOD SPECIMENOrdering Facility: [facility] Address: [address] [place] [address] Performed By: #### 2 4362-6 ####[facility] LABORATORYIA [id number] [place] [address] [place] Calcium [Mass/Vol] 8.3 mg/dL Low 8.5-10.2 [facility] Comment on above: Order Comment: Speci men Type: BLOOD SPECIMENOrdering Facility: [facility] Address: [address] [place] [address] Performed By: #### 2 4362-6 ####[facility] LABORATORYCLIA [id number] [place] [address] [place] Chloride [Moles/Vol] 108 mmol/L High 98-107 [facility] Comment on above: Order Comment: Speci men Type: BLOOD SPECIMENOrdering Facility: [facility] Address: [address] [place] [address] Performed By: #### 2 4362-6 ####[facility] LABORATORYCLIA [id number] [place] [address] [place] CO2 [Moles/Vol] 20 mmol/L Low 22-30 [facility] Comment on above: Order Comment: Speci men Type: BLOOD SPECIMENOrdering Facility: [facility] Address: [address] [place] [address] Performed By: #### 2 4362-6 ####[facility] LABORATORYCLIA [id number] [place] [address] [place] Creatinine [Mass/Vol] 1.25 mg/dL High 0.73-1.22 [facility] Comment on above: Order Comment: Speci men Type: BLOOD SPECIMENOrdering Facility: [facility] Address: [address] [place] [address] Performed By: #### 2 4362-6 ####[facility] LABORATORYIA [id number] [place] [address] [place] Creatinine and Glomerular filtration rate.predicted panel (S/P/Bld) 62 mL/min/1.73m??? Normal >=60 [facility] Comment on above: Order Comment: Speci men Type: BLOOD SPECIMENOrdering Facility: [facility] Address: [address] [place] [address] Result Comment: Deepthi mated Glomerular Filtration Rate (eGFR) is calculated using the 2020 CKD-EPI creatinine equation. This equation utilizes serum creatinine, sex, and age as parameters. The creatinine assay has traceable calibration to isotope dilution-mass spectrometry. Refer to KDIGO guidelines for clinical interpretation. In patients with unstable renal function, e.g. those with acute kidney injury, the eGFR may not accurately reflect actual GFR. Performed By: #### 2 4362-6 ####[facility] LABORATORYCLIA [id number] [place] [address] [place] Glucose [Mass/Vol] 333 mg/dL High 74-99 [facility] Comment on above: Order Comment: Yvonnei men Type: BLOOD SPECIMENOrdering Facility: [facility] Address: [address] [place] [address] Result Comment: The [place] Diabetes Association (ADA) provides guidance for cutoff values for fasting glucose and random glucose. The ADA defines fasting as no caloric intake for at least 8 hours. Fasting plasma glucose results between 100 to 125 mg/dL indicate increased risk for diabetes (prediabetes).Fasting plasma glucose results greater than or equal to 126 mg/dL meet the criteria for diagnosis of diabetes. In the absence of unequivocal hyperglycemia, results should be confirmed by repeat testing. In a patient with classic symptoms of hyperglycemia or hyperglycemic crisis, random plasma glucose results greater than or equal to 200 mg/dL meet the criteria for diagnosis of diabetes.Reference: Standards of Medical Care in Diabetes 2016, [place] [employer]. Diabetes Care. 2016.39(Suppl 1). Performed By: #### 2 4362-6 ####[facility] LABORATORYCLIA [id number] [place] [address] [place] Phosphate [Mass/Vol] 2.0 mg/dL Low 2.7-4.8 [facility] Comment on above: Order Comment: Casie early Type: BLOOD SPECIMENOrdering Facility: [facility] Address: [address] [place] [address] Performed By: #### 2 4362-6 ####[facility] LABORATORYIA [id number] [place] [address] [place] Potassium [Moles/Vol] 4.0 mmol/L Normal 3.7-5.1 [facility] Comment on above: Order Comment: Yvonnei men Type: BLOOD SPECIMENOrdering Facility: [facility] Address: [address] [place], [place] [address] Performed By: #### 2 4362-6 ####[facility] LABORATORYCLIA [id number] [place] [address] [place] Sodium [Moles/Vol] 138 mmol/L Normal 136-144 [facility] Comment on above: Order Comment: Speci men Type: BLOOD SPECIMENOrdering Facility: [facility] Address: [address] [place] [address] Performed By: #### 2 4362-6 ####[facility] LABORATORYCLIA [id number] [place] [address] [place] Urea nitrogen [Mass/Vol] 34 mg/dL High 9-24 [facility] Comment on above: Order Comment: Speci men Type: BLOOD SPECIMENOrdering Facility: [facility] Address: [address] [place] [address] Performed By: #### 2 4362-6 ####[facility] LABORATORYIA [id number] [place] [address] [place] Bacteria Bld Culton 04-20-20 Bacteria identified Cx Nom (Bld) CULTURE, BLOOD: No growth 5 days Normal [facility] Comment on above: Performed By: #### 6 00-7 ####[facility] LABCLIA [id number] [address] [address] [place] Bacteria identified Cx Nom (Bld) CULTURE, BLOOD: No growth 5 days Normal [facility] Comment on above: Performed By: #### 6 00-7 ####[facility] LABCLIA [id number] [address] [address] [place] Basic metabolic 2000 panelon 04-20-2024 Anion gap [Moles/Vol] 12 mmol/L Normal 8-15 [facility] Comment on above: Order Comment: Speci men Type: BLOOD SPECIMENOrdering Facility: [facility] Address: [address] [place] [address] Performed By: #### 2 4325-3, 07508-4, 2776- ####[facility] LABORATORYCLIA [id number] [place] [address] [place] Calcium [Mass/Vol] 7.7 mg/dL Low 8.5-10.2 [facility] Comment on above: Order Comment: Speci men Type: BLOOD SPECIMENOrdering Facility: [facility] Address: [address] [place] [address] Performed By: #### 2 4325-3, 08125-2, 2776- ####[facility] LABORATORYCLIA [id number] [place] [address] [place] Chloride [Moles/Vol] 105 mmol/L Normal 98-107 [facility] Comment on above: Order Comment: Speci men Type: BLOOD SPECIMENOrdering Facility: [facility] Address: [address] [place] [address] Performed By: #### 2 4325-3, 97153-1, 2776-05 ####[facility] HELENACLIA [id number] [place] [address] [place] CO2 [Moles/Vol] 17 mmol/L Low 22-30 [facility] Comment on above: Order Comment: Speci men Type: BLOOD SPECIMENOrdering Facility: [facility] Address: [address] [place] [address] Performed By: #### 2 4325-3, 02491-0, 2776- ####[facility] LABORATORYCLIA [id number] [place] [address] [place] Creatinine [Mass/Vol] 1.28 mg/dL High 0.73-1.22 [facility] Comment on above: Order Comment: Speci men Type: BLOOD SPECIMENOrdering Facility: [facility] Address: [address] [place] [address] Performed By: #### 2 4325-3, 94010-1, 2776- ####[facility] LABORATORYCLIA [id number] [place] [address] [place] Creatinine and Glomerular filtration rate.predicted panel (S/P/Bld) 60 mL/min/1.73m??? Normal >=60 [facility] Comment on above: Order Comment: Casie early Type: BLOOD SPECIMENOrdering Facility: [facility] Address: [address] [place] [address] Result Comment: Deepthi mated Glomerular Filtration Rate (eGFR) is calculated using the 2020 CKD-EPI creatinine equation. This equation utilizes serum creatinine, sex, and age as parameters. The creatinine assay has traceable calibration to isotope dilution-mass spectrometry. Refer to KDIGO guidelines for clinical interpretation. In patients with unstable renal function, e.g. those with acute kidney injury, the eGFR may not accurately reflect actual GFR. Performed By: #### 2 4325-3, 41221-9, 2777- ####[facility] LABORATORYCLIA [id number] [facility] [place] [address] [place] Glucose [Mass/Vol] 309 mg/dL High 74-99 [facility] Comment on above: Order Comment: Casie early Type: BLOOD SPECIMENOrdering Facility: [facility] Address: [address] [place] [address] Result Comment: The [place] Diabetes Association (ADA) provides guidance for cutoff values for fasting glucose and random glucose. The ADA defines fasting as no caloric intake for at least 8 hours. Fasting plasma glucose results between 100 to 125 mg/dL indicate increased risk for diabetes (prediabetes).Fasting plasma glucose results greater than or equal to 126 mg/dL meet the criteria for diagnosis of diabetes. In the absence of unequivocal hyperglycemia, results should be confirmed by repeat testing. In a patient with classic symptoms of hyperglycemia or hyperglycemic crisis, random plasma glucose results greater than or equal to 200 mg/dL meet the criteria for diagnosis of diabetes.Reference: Standards of Medical Care in Diabetes 2016, [place] [employer] Association. Diabetes Care. 2016.39(Suppl 1). Performed By: #### 2 4325-3, 23446-4, 2777-1 ####[facility] LABORATORYCLIA [id number] [place] [address] [place] Potassium [Moles/Vol] 4.6 mmol/L Normal 3.7-5.1 [facility] Comment on above: Order Comment: Speci men Type: BLOOD SPECIMENOrdering Facility: [facility] Address: [address] [place] [address] Performed By: #### 2 4325-3, 18267-9, 2777-1 ####[facility] LABORATORYCLIA [id number] [place] [address] [place] Sodium [Moles/Vol] 134 mmol/L Low 136-144 [facility] Comment on above: Order Comment: Speci men Type: BLOOD SPECIMENOrdering Facility: [facility] Address: [address] [place] [address] Performed By: #### 2 4325-3, 48195-1, 2777- ####[facility] LABORATORYCLIA [id number] [place] [address] [place] Urea nitrogen [Mass/Vol] 31 mg/dL High 9-24 [facility] Comment on above: Order Comment: Speci men Type: BLOOD SPECIMENOrdering Facility: [facility] Address: [address] [place] [address] Performed By: #### 2 4325-3, 64082-6, 2777-1 ####[facility] LABORATORYIA [id number] [place] [address] [place] C diff Tox gens Stl Ql GARCIA+p robeon 04-20-2024 C. difficile toxin genes GARCIA+probe Ql (Stl) Negative Normal Negative for C. difficile toxin by PCR [facility] Comment on above: Order Comment: Speci men Type: STOOL SPECIMENOrdering Facility: [facility] Address: [address] [place] [address] Performed By: #### 5 4067-4 ####[facility] LABCLIA [id number] [facility] [id number] [place] [address] [place] CASE MGT INIT ASSESon 2023 CASE MGT INIT ASSES Normal [facility] CBC W Auto Differential pane l (Bld)on 04-20-2024 Anisocytosis Ql (Bld) Present Normal [facility] Comment on above: Order Comment: Speci men Type: BLOOD SPECIMENOrdering Facility: [facility] Address: [address] [place] [address] Performed By: #### 5 7021-8 ####[facility] [id number] [place] [address] [place]#### 59784-2, 00246-5 ####[facility] LABCLIA [id number] [place] [address] [place] Basophils (Bld) [#/Vol] 0.00 10*3/uL Normal <0.11 [facility] Comment on above: Order Comment: Speci men Type: BLOOD SPECIMENOrdering Facility: [facility] Address: [address] [place] [address] Performed By: #### 5 7021-8 ####[facility] [id number] [place] [address] [place]#### 24323-2, 80077-4 ####[facility] LABCLIA [id number] [place] [address] [place] Basophils/100 WBC (Bld) 0.0 % Normal [facility] Comment on above: Order Comment: Speci men Type: BLOOD SPECIMENOrdering Facility: [facility] Address: [address] [place] [address] Performed By: #### 5 7021-8 ####[facility] [id number] [place] [address] [place]#### 92662-7, 83394-9 ####[facility] LABIA [id number] [place] [address] [place] Differential cell count method Nom (Bld) Manual Normal [facility] Comment on above: Order Comment: Speci men Type: BLOOD SPECIMENOrdering Facility: [facility] Address: [address] [place] [address] Performed By: #### 5 7021-8 ####[facility] LABORATORYCLIA [id number] [place] [address] [place]#### 86780-3, 01661-0 ####[facility] LABCLIA [id number] [address] [address] [place] Eosinophils (Bld) [#/Vol] 0.00 10*3/uL Normal <0.46 [facility] Comment on above: Order Comment: Speci men Type: BLOOD SPECIMENOrdering Facility: [facility] Address: [address] [place] [address] Performed By: #### 5 7021-8 ####[facility] [id number] [place] [address] [place]#### 58823-4, 86427-0 ####[facility] LABCLIA [id number] [place] [address] [place] Eosinophils/100 WBC (Bld) 0.0 % Normal [facility] Comment on above: Order Comment: Speci men Type: BLOOD SPECIMENOrdering Facility: [facility] Address: [address] [place] [address] Performed By: #### 5 7021-8 ####[facility] LABORATORYIA [id number] [place] [address] [place]#### 10268-2, 23822-2 ####[facility] LABCLIA [id number] [place] [address] [place] Erythrocyte distribution width (RBC) [Ratio] 19.1 % High 11.5-15.0 [facility] Comment on above: Order Comment: Speci men Type: BLOOD SPECIMENOrdering Facility: [facility] Address: [address] [place] [address] Performed By: #### 5 7021-8 ####[facility] LABORATORYIA [id number] [place] [address] [place]#### 16763-9, 05617-4 ####[facility] LABCLIA [id number] [place] [address] [place] Hematocrit (Bld) [Volume fraction] 24.8 % Low 39.0-51.0 [facility] Comment on above: Order Comment: Speci men Type: BLOOD SPECIMENOrdering Facility: [facility] Address: [address] [place] [address] Performed By: #### 5 7021-8 ####[facility] LABORATORYCLIA [id number] [address] [place]#### 16602-0, 47741-0 ####[facility] LABCLIA [id number] [place] [address] [place] Hemoglobin (Bld) [Mass/Vol] 8.1 g/dL Low 13.0-17.0 [facility] Comment on above: Order Comment: Speci men Type: BLOOD SPECIMENOrdering Facility: [facility] Address: [address] [place] [address] Performed By: #### 5 7021-8 ####[facility] [id number] [place] [address] [place]#### 96692-1, 66862-1 ####[facility] LABIA [id number] [place] [address] [place] Lymphocytes (Bld) [#/Vol] 1.51 10*3/uL Normal 1.00-4.00 [facility] Comment on above: Order Comment: Speci men Type: BLOOD SPECIMENOrdering Facility: [facility] Address: [facility] [place] [address] Performed By: #### 5 7021-8 ####[facility] LABORATORYCLIA [id number] [place] [address] [place]#### 49509-2, 58204-7 ####[facility] LABCLIA [id number] [place] [address] [place] Lymphocytes/100 WBC (Bld) 36.0 % Normal [facility] Comment on above: Order Comment: Speci men Type: BLOOD SPECIMENOrdering Facility: [facility] Address: [address] [place] [address] Performed By: #### 5 7021-8 ####[facility] LABORATORYCLIA [id number] [place] [address] [place]#### 77619-4, 81636-3 ####[facility] LABCLIA [id number] [place] [address] [place] MCH (RBC) [Entitic mass] 32.4 pg Normal 26.0-34.0 [facility] Comment on above: Order Comment: Speci men Type: BLOOD SPECIMENOrdering Facility: [facility] Address: [address] [place] [address] Performed By: #### 5 7021-8 ####[facility] LABORATORYIA [id number] [place] [address] [place]#### 42437-8, 54630-0 ####[facility] LABCLIA [id number] [place] [address] [place] MCHC (RBC) [Mass/Vol] 32.7 g/dL Normal 30.5-36.0 [facility] Comment on above: Order Comment: Speci men Type: BLOOD SPECIMENOrdering Facility: [facility] Address: [address] [place] [address] Performed By: #### 5 7021-8 ####[facility] LABORATORYCLIA [id number] [place] [address] [place]#### 80971-6, 04089-1 ####[facility] LABCLIA [id number] [place] [address] [place] MCV (RBC) [Entitic vol] 99.2 fL Normal 80.0-100.0 [facility] Comment on above: Order Comment: Speci men Type: BLOOD SPECIMENOrdering Facility: [facility] Address: [address] [place] [address] Performed By: #### 5 7021-8 ####[facility] LABORATORYCLIA [id number] [address] [place]#### 42907-8, 32742-7 ####[facility] LABCLIA [id number] [address] [place] Metamyelocytes/100 WBC (Bld) 3.0 % Normal [facility] Comment on above: Order Comment: Speci men Type: BLOOD SPECIMENOrdering Facility: [facility] Address: [address] [place] [address] Performed By: #### 5 7021-8 ####[facility] [id number] [address] [place]#### 14730-6, 25314-5 ####[facility] LABCLIA [id number] [address] [place] Monocytes (Bld) [#/Vol] 0.42 10*3/uL Normal <0.87 [facility] Comment on above: Order Comment: Speci men Type: BLOOD SPECIMENOrdering Facility: [facility] Address: [address] [place] [address] Performed By: #### 5 7021-8 ####[facility] LABORATORYIA [id number] [place] [id number] [place]#### 68637-2, 42265-8 ####[facility] LABCLIA [id number] [place] [id number] [place] Monocytes/100 WBC (Bld) 10.0 % Normal [facility] Comment on above: Order Comment: Speci men Type: BLOOD SPECIMENOrdering Facility: [facility] Address: [address] [place] [address] Performed By: #### 5 7021-8 ####[facility] LABORATORYIA [id number] [place] [address] [place]#### 68690-5, 08063-2 ####[facility] LABCLIA [id number] [place] [address] [place] MYELO% 1.0 % Normal [facility] Comment on above: Order Comment: Speci men Type: BLOOD SPECIMENOrdering Facility: [facility] Address: [address] [place] [address] Performed By: #### 5 7021-8 ####[facility] [id number] [place] [address] [place]#### 90518-3, 51138-1 ####[facility] LABCLIA [id number] [place] [address] [place] Neutrophils (Bld) [#/Vol] 2.10 10*3/uL Normal 1.45-7.50 [facility] Comment on above: Order Comment: Speci men Type: BLOOD SPECIMENOrdering Facility: [facility] Address: [address] [place] [address] Performed By: #### 5 7021-8 ####[facility] LABORATORYCLIA [id number] [place] [id number] [place]#### 04082-1, 62074-7 ####[facility] LABIA [id number] [place] [address] [place] Neutrophils/100 WBC (Bld) 50.0 % Normal [facility] Comment on above: Order Comment: Speci men Type: BLOOD SPECIMENOrdering Facility: [facility] Address: [address] [place] [address] Performed By: #### 5 7021-8 ####[facility] LABORATORYCLIA [id number] [facility] [place] [address] [place]#### 92764-8, 40446-4 ####[facility] LABCLIA [id number] [place] [address] [place] Nucleated RBC (Bld) [#/Vol] 10*3/uL Normal <0.01 [facility] Comment on above: Order Comment: Speci men Type: BLOOD SPECIMENOrdering Facility: [facility] Address: [address] [place] [address] Performed By: #### 5 7021-8 ####[facility] [id number] [place] [address] [place]#### 12572-3, 03034-3 ####[facility] LABCLIA [id number] [place] [address] [place] Nucleated RBC/100 WBC (Bld) [Ratio] 0.0 /100 WBC Normal [facility] Comment on above: Order Comment: Speci men Type: BLOOD SPECIMENOrdering Facility: [facility] Address: [address] [place] [address] Performed By: #### 5 7021-8 ####[facility] [id number] [facility] [place] [address] [place]#### 11906-5, 14114-2 ####[facility] LABCLIA [id number] [place] [address] [place] Ovalocytes LM Ql (Bld) Few Normal [facility] Comment on above: Order Comment: Speci men Type: BLOOD SPECIMENOrdering Facility: [facility] Address: [address] [place] [address] Performed By: #### 5 7021-8 ####[facility] LABORATORYCLIA [id number] [facility] [place]#### 00705-0, 08627-5 ####[facility] LABCLIA [id number] [place] [address] [place] Platelet mean volume (Bld) [Entitic vol] 10.0 fL Normal 9.0-12.7 [facility] Comment on above: Order Comment: Speci men Type: BLOOD SPECIMENOrdering Facility: [facility] Address: [address] [place] [address] Performed By: #### 5 7021-8 ####[facility] LABORATORYCLIA [id number] [facility]#### 86756-7, 24131-2 ####[facility] LABIA [id number] [place] [address] [place] Platelets (Bld) [#/Vol] 101 10*3/uL Low 150-400 [facility] Comment on above: Order Comment: Speci men Type: BLOOD SPECIMENOrdering Facility: [facility] Address: [address] [place] [address] Result Comment: No c lot detected. Performed By: #### 5 7021-8 ####[facility] [id number] [facility] [place] [address] [place]#### 86503-1, 44263-3 ####[facility] LABIA [id number] [place] [address] [place] Platelets Estimate (Bld) [#/Vol] Decreased Normal [facility] Comment on above: Order Comment: Speci men Type: BLOOD SPECIMENOrdering Facility: [facility] Address: [address] [place] [address] Performed By: #### 5 7021-8 ####[facility] LABORATORYCLIA [id number] [facility] [place] [address] [place]#### 51310-6, 58370-0 ####[facility] LABCLIA [id number] [address] [address] [place] Polychromasia LM Ql (Bld) Slight Normal [facility] Comment on above: Order Comment: Speci men Type: BLOOD SPECIMENOrdering Facility: [facility] Address: [address] [place] [address] Performed By: #### 5 7021-8 ####[facility] LABORATORYCLIA [id number] [place] [address] [place]#### 73021-4, 32378-4 ####[facility] LABCLIA [id number] [place] [address] [place] RBC (Bld) [#/Vol] 2.50 10*6/uL Low 4.20-6.00 [facility] Comment on above: Order Comment: Speci men Type: BLOOD SPECIMENOrdering Facility: [facility] Address: [address] [place] [address] Performed By: #### 5 7021-8 ####[facility] [id number] [place] [address] [place]#### 87225-8, 64155-4 ####[facility] LABCLIA [id number] [place] [address] [place] RED CELL MORPH Reviewed: see result s of individual morphologies Normal [facility] Comment on above: Order Comment: Speci men Type: BLOOD SPECIMENOrdering Facility: [facility] Address: [address] [place] [address] Performed By: #### 5 7021-8 ####[facility] LABORATORYCLIA [id number] [place] [address] [place]#### 41599-3, 30679-7 ####[facility] LABCLIA [id number] [address] [address] [place] WBC (Bld) [#/Vol] 4.19 10*3/uL Normal 3.70-11.00 [facility] Comment on above: Order Comment: Speci men Type: BLOOD SPECIMENOrdering Facility: [facility] Address: [address] [place] [address] Performed By: #### 5 7021-8 ####[facility] LABORATORYIA [id number] [place] [address] [place]#### 73810-4, 27161-1 ####[facility] LABCLIA [id number] [place] [address] [place] WBC Left Shift Ql (Bld) Present Normal [facility] Comment on above: Order Comment: Speci men Type: BLOOD SPECIMENOrdering Facility: [facility] Address: [address] [place] [address] Performed By: #### 5 7021-8 ####[facility] LABORATORYIA [id number] [place] [address] [place]#### 25045-3, 02798-2 ####[facility] LABCLIA [id number] [place] [address] [place] CONSULTon 04-20-2024 CONSULT Normal [facility] Gastrointestinal pathogens i dentified GARCIA+probe Nom (Stl)on 04-20-2024 Campylobacter sp DNA GARCIA+probe Nom (Unsp spec) Not detected Normal Not Detected [facility] Comment on above: Order Comment: Speci men Type: STOOL SPECIMENOrdering Facility: [facility] Address: [address] [place] [address] Performed By: #### 7 9390-1 ####[facility] LABIA [id number] [place] [address] [place] Salmonella sp DNA GARCIA+probe Ql (Unsp spec) Not detected Normal Not Detected [facility] Comment on above: Order Comment: Speci men Type: STOOL SPECIMENOrdering Facility: [facility] Address: [address] [place] [address] Performed By: #### 7 9390-1 ####[facility] LABCLIA [id number] [place] [address] [place] Shiga toxin stx gene GARCIA+probe Nom (Unsp spec) Not detected Normal Not Detected [facility] Comment on above: Order Comment: Speci men Type: STOOL SPECIMENOrdering Facility: [facility] Address: [address] [place] [address] Performed By: #### 7 9390-1 ####[facility] LABIA [id number] [place] [address] [place] Shigella sp DNA GARCIA+probe Ql (Unsp spec) Not detected Normal Not Detected [facility] Comment on above: Order Comment: Speci men Type: STOOL SPECIMENOrdering Facility: [facility] Address: [address] [place] [address] Performed By: #### 7 9390-1 ####[facility] LABIA [id number] [place] [address] [place] Haptoglob SerPl-mCncon 04-20 Haptoglobin [Mass/Vol] 128 mg/dL Normal 31-238 [facility] Comment on above: Order Comment: Speci men Type: BLOOD SPECIMENOrdering Facility: [facility] Address: [address] [place] [address] Performed By: #### 4 542-7, 2532-0 ####[facility] LABIA [id number] [place] [address] [place] HbA1c (Bld)on 04-20-2024 Average glucose Estimated from glycated hemoglobin (Bld) [Mass/Vol] 200 mg/dL Normal [facility] Comment on above: Order Comment: Speci men Type: BLOOD SPECIMENOrdering Facility: [facility] Address: [address] [place] [address] Result Comment: eAG: (Estimated average glucose) is a calculated value from HgbA1c and is food service representative of the average blood glucose level in the last 2-3 month period. Performed By: #### 5 7021-8 ####[facility] LABORATORYCLIA [id number] [place] [address] [place]#### 25667-2, 45804-2 ####[facility] LABCLIA [id number] [address] [address] [place] HbA1c (Bld) [Mass fraction] 8.6 % High 4.3-5.6 [facility] Comment on above: Order Comment: Speci men Type: BLOOD SPECIMENOrdering Facility: [facility] Address: [address] [place] [address] Result Comment: [place] Diabetes Association guidelines indicate that patients with HgbA1c in the range 5.7-6.4% are at increased risk for development of diabetes, and intervention by lifestyle modification may be beneficial. HgbA1c greater or equal to 6.5% is considered diagnostic of diabetes. Performed By: #### 5 7021-8 ####[facility] [id number] [place] [address] [place]#### 94141-2, 88261-1 ####[facility] LABIA [id number] [place] [address] [place] Hepatic function 2000 panelo n 04-20-2024 Albumin [Mass/Vol] 2.8 g/dL Low 3.9-4.9 [facility] Comment on above: Order Comment: Speci men Type: BLOOD SPECIMENOrdering Facility: [facility] Address: [address] [place] [address] Performed By: #### 2 4325-3, 12884-4, 2777-1 ####[facility] LABORATORYIA [id number] [address] [place] ALP [Catalytic activity/Vol] 54 U/L Normal 38-113 [facility] Comment on above: Order Comment: Speci men Type: BLOOD SPECIMENOrdering Facility: [facility] Address: [address] [place] [address] Performed By: #### 2 4325-3, 13616-5, 2776- ####[facility] LABORATORYCLIA [id number] [place] [address] [place] ALT [Catalytic activity/Vol] 24 U/L Normal 10-54 [facility] Comment on above: Order Comment: Speci men Type: BLOOD SPECIMENOrdering Facility: [facility] Address: [address] [place] [address] Performed By: #### 2 4325-3, 44002-4, 2776- ####[facility] LABORATORYCLIA [id number] [place] [address] [place] AST [Catalytic activity/Vol] 20 U/L Normal 14-40 [facility] Comment on above: Order Comment: Speci men Type: BLOOD SPECIMENOrdering Facility: [facility] Address: [address] [place] [address] Performed By: #### 2 4325-3, 97819-7, 2776-05 ####[facility] LABORATORYCLIA [id number] [place] [address] [place] Bilirubin [Mass/Vol] 1.2 mg/dL Normal 0.2-1.3 [facility] Comment on above: Order Comment: Speci men Type: BLOOD SPECIMENOrdering Facility: [facility] Address: [address] [place] [address] Performed By: #### 2 4325-3, 26420-3, 2776-05 ####[facility] LABORATORYCLIA [id number] [facility] [place] [address] [place] Bilirubin.conjugated [Mass/Vol] 0.5 mg/dL High <0.2 [facility] Comment on above: Order Comment: Speci men Type: BLOOD SPECIMENOrdering Facility: [facility] Address: [address] [place] [address] Performed By: #### 2 4325-3, 68986-7, 2776- ####[facility] LABORATORYCLIA [id number] [place] [address] [place] Protein [Mass/Vol] 6.3 g/dL Normal 6.3-8.0 [facility] Comment on above: Order Comment: Speci men Type: BLOOD SPECIMENOrdering Facility: [facility] Address: [address] [place] [address] Performed By: #### 2 4325-3, 63221-9, 2777-1 ####[facility] HELENACLIA [id number] [place] [id number] [place] LDH SerPl-cCncon 04-20-2024 LDH [Catalytic activity/Vol] 248 U/L High 135-225 [facility] Comment on above: Order Comment: Speci men Type: BLOOD SPECIMENOrdering Facility: [facility] Address: [address] [place] [address] Performed By: #### 4 542-7, 2532-0 ####[facility] LABCLIA [id number] [place] [address] [place] Phosphate SerPl-mCncon 04-20 Phosphate [Mass/Vol] 2.1 mg/dL Low 2.7-4.8 [facility] Comment on above: Order Comment: Speci men Type: BLOOD SPECIMENOrdering Facility: [facility] Address: [address] [place] [address] Performed By: #### 2 4325-3, 52085-8, 2777-1 ####[facility] [id number] [place] [id number] [place] Retics #on 04-20-2024 Reticulocytes (Bld) [#/Vol] 0.17506 10*3/uL High 0.018-0.100 [facility] Comment on above: Order Comment: Speci men Type: BLOOD SPECIMENOrdering Facility: [facility] Address: [address] [place] [address] Performed By: #### 5 7021-8 ####[facility] [id number] [place] [address] [place]#### 40040-5, 37693-8 ####[facility] LABCLIA [id number] [place] [address] [place] Reticulocytes (Bld) [#/Vol]o n 04-20-2024 Reticulocytes/100 RBC (Bld) 4.9 % High 0.4-2.0 [facility] Comment on above: Order Comment: Speci men Type: BLOOD SPECIMENOrdering Facility: [facility] Address: [address] [place] [address] Performed By: #### 5 7021-8 ####[facility] [id number] [place] [address] [place]#### 64135-5, 39198-7 ####[facility] LABIA [id number] [place] [address] [place] SEPSIS LACTATEon 04-20-2024 Lactate [Moles/Vol] 1.8 mmol/L Normal 0.0-2.0 [facility] Comment on above: Order Comment: Speci men Type: BLOOD SPECIMENOrdering Facility: [facility] Address: [address] [place] [address] Performed By: #### S LACT ####[facility] [id number] [place], [place] [address] [place] [address] [place] HISTORY PHYSICALon HISTORY PHYSICAL Normal [facility] CNPNon 04-17-2024 CNPN Normal [facility] LDH SERPL-CCNCon 024 [facility] LDH SERPL-CCNC 179 U/L 135 - 225 U/L [facility] Healthcare Specimen Type: BLOOD SPECIMEN [facility] Address: [address] [place] [address] Original Ordering Provider: VIMAL CASILLAS [facility] PHOSPHATE SERPL-MCNCon 1 06-17-2023 [facility] PHOSPHATE SERPL-MCNC 3.1 mg/dL 2.7 - 4.8 mg/dL [facility] Healthcare Specimen Type: BLOOD SPECIMEN [facility] Address: [address] [place] [address] [facility]: [facility] URATE SERPL-MCNCon 04-16 [facility] URATE SERPL-MCNC 5.4 mg/dL 4.0 - 8 .1 mg/dL [facility] Specimen Type: BLOOD SPECIMEN [facility] Address: [address] [place] [address] Original [facility] COMP METAB 2000 PNL SERP Russel 04-09-2024 Albumin [Mass/Vol] 3.6 g/dL Low 3.9 - 4.9 g/dL [facility] ALP [Catalytic activity/Vol] 99 U/L 38 - 113 U/L [facility] ALT [Catalytic activity/Vol] 45 U/L 10 - 54 U/L [facility] Anion gap [Moles/Vol] 9 mmol/L 8 - 15 mmol/L [facility] Calcium [Mass/Vol] 9.2 mg/dL 8.5 - 10. 2 mg/dL [facility] AST SERPL-CCNC 55 U/L High 14 - 40 U/L [facility] BILIRUB SERPL-MCNC 0.4 mg/dL 0.2 - 1.3 mg/dL [facility] PROT SERPL-MCNC 6.9 g/dL 6.3 - 8. 0 g/dL [facility] Chloride [Moles/Vol] 105 mmol/L 98 - 10 7 mmol/L [facility] CO2 [Moles/Vol] 24 mmol/L 22 - 30 mmol/L [facility] Creatinine [Mass/Vol] 1.18 mg/dL 0.73 - 1.22 mg/dL [facility] GFR/1.73 sq M.predicted CKD-EPI (S/P/Bld) [Vol rate/Area] 66 - PINF [facility] Comment on above: Estimated Glomerular Filtration Rate (eGFR) is calculated using the 2020 CKD-EPI creatinine equation. This equation utilizes serum creatinine, sex, and age as parameters. The creatinine assay has traceable calibration to isotope dilution-mass spectrometry. Refer to KDIGO guidelines for clinical interpretation. In patients with unstable renal function, e.g. those with acute kidney injury, the eGFR may not accurately reflect actual GFR. Glucose [Mass/Vol] 239 mg/dL High 74 - 99 mg/dL [facility] Comment on above: The [place] Diabete s Association (ADA) provides guidance for cutoff values for fasting glucose and random glucose. The ADA defines fasting as no caloric intake for at least 8 hours. Fasting plasma glucose results between 100 to 125 mg/dL indicate increased risk for diabetes (prediabetes). Fasting plasma glucose results greater than or equal to 126 mg/dL meet the criteria for diagnosis of diabetes. In the absence of unequivocal hyperglycemia, results should be confirmed by repeat testing. In a patient with classic symptoms of hyperglycemia or hyperglycemic crisis, random plasma glucose results greater than or equal to 200 mg/dL meet the criteria for diagnosis of diabetes. Reference: Standards of Medical Care in Diabetes 2016, [place] Diabetes Association. Diabetes Care. 2016.39(Suppl 1). Interpretation and review of laboratory results Abnormal [facility] Potassium [Moles/Vol] 4.3 mmol/L 3.7 - 5.1 mmol/L [facility] Sodium [Moles/Vol] 138 mmol/L 136 - 144 mmol/L [facility] Urea nitrogen [Mass/Vol] 28 mg/dL High 9 - 24 mg/dL [facility] Specimen Type: BLOOD SPECIMEN [facility] Address: [address] [place] [address] Original Ordering Provider: [facility] LDH SERPL-CCNCon -02-2 024 [facility] LDH SERPL-CCNC 171 U/L 135 - 225 U/L [facility] Specimen Type: BLOOD SPECIMEN [facility] Address: [address] [place] [address] Original Ordering Provider: [facility] CNPNon 04-04-2024 CNPN [facility] Bacteria Bld Culton 04-02-20 24 Bacteria identified Cx Nom (Bld) CULTURE, BLOOD: No growth 5 days [facility] Comment on above: Performed By: #### 6 00-7 ####[facility] LABCLIA [id number] [address] [place] Bacteria identified Cx Nom (Bld) CULTURE, BLOOD: No growth 5 days Normal [facility] Comment on above: Performed By: #### 6 00-7 ####[facility] LABCLIA [id number] [place] [address] [place] Bacteria Ur Culton Bacteria identified Cx Nom (U) Abnormal [facility] Comment on above: Performed By: #### 6 30-4 ####[facility] LABCLIA [id number] [place] [address] [place] CBC W Auto Differential pane l (Bld)on 04-02-2024 Basophils (Bld) [#/Vol] 0.00 10*3/uL Normal <0.11 [facility] Comment on above: Order Comment: Speci men Type: BLOOD SPECIMENOrdering Facility: [facility] Address: [address] [place] [address] Performed By: #### 5 7021-8 ####[facility] LABORATORYIA [id number] [place] [id number] [place] Basophils/100 WBC (Bld) 0.0 % Normal [facility] Comment on above: Order Comment: Speci men Type: BLOOD SPECIMENOrdering Facility: [facility] Address: [address] [place] [address] Performed By: #### 5 7021-8 ####[facility] [id number] [place] [address] [place] Differential cell count method Nom (Bld) Manual Normal [facility] Comment on above: Order Comment: Speci men Type: BLOOD SPECIMENOrdering Facility: [facility] Address: [address] [place] [address] Performed By: #### 5 7021-8 ####[facility] LABORATORYIA [id number] [place] [address] [place] Eosinophils (Bld) [#/Vol] 0.04 10*3/uL Normal <0.46 [facility] Comment on above: Order Comment: Speci men Type: BLOOD SPECIMENOrdering Facility: [facility] Address: [address] [place] [address] Performed By: #### 5 7021-8 ####[facility] LABORATORYCLIA [id number] [place] [id number] [place] Eosinophils/100 WBC (Bld) 1.0 % Normal [facility] Comment on above: Order Comment: Speci men Type: BLOOD SPECIMENOrdering Facility: [facility] Address: [address] [place] [address] Performed By: #### 5 7021-8 ####[facility] LABORATORYCLIA [id number] [address] [place] Erythrocyte distribution width (RBC) [Ratio] 16.1 % High 11.5-15.0 [facility] Comment on above: Order Comment: Speci men Type: BLOOD SPECIMENOrdering Facility: [facility] Address: [address] [place] [address] Performed By: #### 5 7021-8 ####[facility] [id number] [address] [place] Hematocrit (Bld) [Volume fraction] 30.9 % Low 39.0-51.0 [facility] Comment on above: Order Comment: Speci men Type: BLOOD SPECIMENOrdering Facility: [facility] Address: [address] [place] [address] Performed By: #### 5 7021-8 ####[facility] LABORATORYIA [id number] [facility] [id number] [place] Hemoglobin (Bld) [Mass/Vol] 10.3 g/dL Low 13.0-17.0 [facility] Comment on above: Order Comment: Speci men Type: BLOOD SPECIMENOrdering Facility: [facility] Address: [address] [place] [address] Performed By: #### 5 7021-8 ####[facility] LABORATORYIA [id number] [facility] [id number] [place] Lymphocytes (Bld) [#/Vol] 1.45 10*3/uL Normal 1.00-4.00 [facility] Comment on above: Order Comment: Speci men Type: BLOOD SPECIMENOrdering Facility: [facility] Address: [address] [place] [address] Performed By: #### 5 7021-8 ####[facility] LABORATORYIA [id number] [address] [place] Lymphocytes/100 WBC (Bld) 36.0 % Normal [facility] Comment on above: Order Comment: Speci men Type: BLOOD SPECIMENOrdering Facility: [facility] Address: [address] [place] [address] Performed By: #### 5 7021-8 ####[facility] [id number] [place] [address] [place] MCH (RBC) [Entitic mass] 32.8 pg Normal 26.0-34.0 [facility] Comment on above: Order Comment: Speci men Type: BLOOD SPECIMENOrdering Facility: [facility] Address: [address] [place] [address] Performed By: #### 5 7021-8 ####[facility] [id number] [place] [address] [place] MCHC (RBC) [Mass/Vol] 33.3 g/dL Normal 30.5-36.0 [facility] Comment on above: Order Comment: Speci men Type: BLOOD SPECIMENOrdering Facility: [facility] Address: [address] [place] [address] Performed By: #### 5 7021-8 ####[facility] LABORATORYIA [id number] [place] [address] [place] MCV (RBC) [Entitic vol] 98.4 fL Normal 80.0-100.0 [facility] Comment on above: Order Comment: Speci men Type: BLOOD SPECIMENOrdering Facility: [facility] Address: [address] [place] [address] Performed By: #### 5 7021-8 ####[facility] LABORATORYCLIA [id number] [place] [address] [place] Metamyelocytes/100 WBC (Bld) 6.0 % Normal [facility] Comment on above: Order Comment: Speci men Type: BLOOD SPECIMENOrdering Facility: [facility] Address: [address] [place] [address] Performed By: #### 5 7021-8 ####[facility] LABORATORYCLIA [id number] [place] [address] [place] Monocytes (Bld) [#/Vol] 0.32 10*3/uL Normal <0.87 [facility] Comment on above: Order Comment: Speci men Type: BLOOD SPECIMENOrdering Facility: [facility] Address: [address] [place] [address] Performed By: #### 5 7021-8 ####[facility] [id number] [place] [id number] [place] Monocytes/100 WBC (Bld) 8.0 % Normal [facility] Comment on above: Order Comment: Speci men Type: BLOOD SPECIMENOrdering Facility: [facility] Address: [address] [place] [address] Performed By: #### 5 7021-8 ####[facility] [id number] [place] [address] [place] Neutrophils (Bld) [#/Vol] 1.98 10*3/uL Normal 1.45-7.50 [facility] Comment on above: Order Comment: Speci men Type: BLOOD SPECIMENOrdering Facility: [facility] Address: [address] [place] [address] Performed By: #### 5 7021-8 ####[facility] [id number] [place] [id number] [place] Neutrophils/100 WBC (Bld) 49.0 % Normal [facility] Comment on above: Order Comment: Speci men Type: BLOOD SPECIMENOrdering Facility: [facility] Address: [address] [place] [address] Performed By: #### 5 7021-8 ####[facility] LABORATORYIA [id number] [place] [address] [place] Nucleated RBC (Bld) [#/Vol] 10*3/uL Normal <0.01 [facility] Comment on above: Order Comment: Speci men Type: BLOOD SPECIMENOrdering Facility: [facility] Address: [address] [place] [address] Performed By: #### 5 7021-8 ####[facility] [id number] [place] [address] [place] Nucleated RBC/100 WBC (Bld) [Ratio] 0.0 /100 WBC Normal [facility] Comment on above: Order Comment: Speci men Type: BLOOD SPECIMENOrdering Facility: [facility] Address: [address] [place] [address] Performed By: #### 5 7021-8 ####[facility] [id number] [address] [place] Platelet mean volume (Bld) [Entitic vol] 10.1 fL Normal 9.0-12.7 [facility] Comment on above: Order Comment: Speci men Type: BLOOD SPECIMENOrdering Facility: [facility] Address: [address] [place] [address] Performed By: #### 5 7021-8 ####[facility] [id number] [place] [id number] [place] Platelets (Bld) [#/Vol] 38 10*3/uL Low 150-400 [facility] Comment on above: Order Comment: Speci men Type: BLOOD SPECIMENOrdering Facility: [facility] Address: [address] [place] [address] Performed By: #### 5 7021-8 ####[facility] [id number] [place] [address] [place] Platelets Estimate (Bld) [#/Vol] Decreased Normal [facility] Comment on above: Order Comment: Speci men Type: BLOOD SPECIMENOrdering Facility: [facility] Address: [address] [place] [address] Performed By: #### 5 7021-8 ####[facility] [id number] [facility] [place] [address] [place] RBC (Bld) [#/Vol] 3.14 10*6/uL Low 4.20-6.00 [facility] Comment on above: Order Comment: Speci men Type: BLOOD SPECIMENOrdering Facility: [facility] Address: [address] [place] [address] Performed By: #### 5 7021-8 ####[facility] [id number] [place] [address] [place] [facility] RED CELL MORPH Reviewed: unremarkable Normal [facility] Comment on above: Order Comment: Speci men Type: BLOOD SPECIMENOrdering Facility: [facility] Address: [address] [place] [address] Performed By: #### 5 7021-8 ####[facility] [id number] [place] [address] [place] WBC (Bld) [#/Vol] 4.04 10*3/uL Normal 3.70-11.00 [facility] Comment on above: Order Comment: Speci men Type: BLOOD SPECIMENOrdering Facility: [facility] Address: [address] [place] [address] Performed By: #### 5 7021-8 ####[facility] [id number] [place] [address] [place] [facility] WBC Left Shift Ql (Bld) Present Normal [facility] Comment on above: Order Comment: Speci men Type: BLOOD SPECIMENOrdering Facility: [facility] Address: [address] [place] [address] Performed By: #### 5 7021-8 ####[facility] LABORATORYCLIA [id number] [facility] [place] [address] [place] [facility] COMP METAB 2000 PNL SERP Russel 04-02-2024 Albumin [Mass/Vol] 3.8 g/dL Low 3.9 - 4.9 g/dL [facility] ALP [Catalytic activity/Vol] 99 U/L 38 - 113 U/L [facility] ALT [Catalytic activity/Vol] 29 U/L 10 - 54 U/L [facility] Anion gap [Moles/Vol] 11 mmol/L 8 - 15 mmol/L [facility] Calcium [Mass/Vol] 9.2 mg/dL 8.5 - 10. 2 mg/dL [facility] AST SERPL-CCNC 56 U/L High 14 - 40 U/L [facility] BILIRUB SERPL-MCNC 0.6 mg/dL 0.2 - 1.3 mg/dL [facility] PROT SERPL-MCNC 7.2 g/dL 6.3 - 8. 0 g/dL [facility] Chloride [Moles/Vol] 103 mmol/L 98 - 10 7 mmol/L [facility] CO2 [Moles/Vol] 21 mmol/L Low 22 - 30 mmol/L [facility] Creatinine [Mass/Vol] 1.27 mg/dL High 0.73 - 1.22 mg/dL [facility] GFR/1.73 sq M.predicted CKD-EPI (S/P/Bld) [Vol rate/Area] 60 - PINF [facility] Comment on above: Estimated Glomerular Filtration Rate (eGFR) is calculated using the 2020 CKD-EPI creatinine equation. This equation utilizes serum creatinine, sex, and age as parameters. The creatinine assay has traceable calibration to isotope dilution-mass spectrometry. Refer to KDIGO guidelines for clinical interpretation. In patients with unstable renal function, e.g. those with acute kidney injury, the eGFR may not accurately reflect actual GFR. Glucose [Mass/Vol] 180 mg/dL High 74 - 99 mg/dL [facility] Comment on above: The [place] Diabete s Association (ADA) provides guidance for cutoff values for fasting glucose and random glucose. The ADA defines fasting as no caloric intake for at least 8 hours. Fasting plasma glucose results between 100 to 125 mg/dL indicate increased risk for diabetes (prediabetes). Fasting plasma glucose results greater than or equal to 126 mg/dL meet the criteria for diagnosis of diabetes. In the absence of unequivocal hyperglycemia, results should be confirmed by repeat testing. In a patient with classic symptoms of hyperglycemia or hyperglycemic crisis, random plasma glucose results greater than or equal to 200 mg/dL meet the criteria for diagnosis of diabetes. Reference: Standards of Medical Care in Diabetes 2016, [place] [employer]. Diabetes Care. 2016.39(Suppl 1). Interpretation and review of laboratory results Abnormal [facility] Potassium [Moles/Vol] 4.3 mmol/L 3.7 - 5.1 mmol/L [facility] Sodium [Moles/Vol] 135 mmol/L Low 136 - 144 mmol/L [facility] Urea nitrogen [Mass/Vol] 26 mg/dL High 9 - 24 mg/dL [facility] Specimen Type: BLOOD SPECIMEN [facility] Address: [address] [place] [address] Original Ordering Provider: VIMAL CASILLAS [facility] Comprehensive metabolic 2000 panelon 04-02-2024 Albumin [Mass/Vol] 3.8 g/dL Low 3.9-4.9 [facility] Comment on above: Order Comment: Speci men Type: BLOOD SPECIMENOrdering Facility: [facility] Address: [address] [place] [address] Performed By: #### 2 4328, ####[facility] LABORATORYCLIA [id number] [place] [address] [place] ALP [Catalytic activity/Vol] 101 U/L Normal 38-113 [facility] Comment on above: Order Comment: Speci men Type: BLOOD SPECIMENOrdering Facility: [facility] Address: [address] [place] [address] Performed By: #### 2 4328, ####[facility] LABORATORYCLIA [id number] [place] [address] [place] ALT [Catalytic activity/Vol] 33 U/L Normal 10-54 [facility] Comment on above: Order Comment: Speci men Type: BLOOD SPECIMENOrdering Facility: [facility] Address: [address] [place] [address] Performed By: #### 2 432-8, ####[facility] LABORATORYCLIA [id number] [place] [address] [place] Anion gap [Moles/Vol] 12 mmol/L Normal 8-15 [facility] Comment on above: Order Comment: Speci men Type: BLOOD SPECIMENOrdering Facility: [facility] Address: [address] [place] [address] Performed By: #### 2 4323-8, ####[facility] LABORATORYCLIA [id number] [place] [address] [place] AST [Catalytic activity/Vol] 60 U/L High 14-40 [facility] Comment on above: Order Comment: Speci men Type: BLOOD SPECIMENOrdering Facility: [facility] Address: [address] [place] [address] Performed By: #### 2 4328, ####[facility] [id number] [place] [address] [place] Bilirubin [Mass/Vol] 0.5 mg/dL Normal 0.2-1.3 [facility] Comment on above: Order Comment: Speci men Type: BLOOD SPECIMENOrdering Facility: [facility] Address: [address] [place] [address] Performed By: #### 2 8, ####[facility] LABORATORYIA [id number] [place] [address] [place] Calcium [Mass/Vol] 9.1 mg/dL Normal 8.5-10.2 [facility] Comment on above: Order Comment: Speci men Type: BLOOD SPECIMENOrdering Facility: [facility] Address: [address] [place] [address] Performed By: #### 2 4323-8, ####[facility] LABORATORYIA [id number] [place] [address] [place] Chloride [Moles/Vol] 101 mmol/L Normal 98-107 [facility] Comment on above: Order Comment: Speci men Type: BLOOD SPECIMENOrdering Facility: [facility] Address: [address] [place] [address] Performed By: #### 2 4323-8, ####[facility] LABORATORYCLIA [id number] [facility] [place] [address] [place] CO2 [Moles/Vol] 22 mmol/L Normal 22-30 [facility] Comment on above: Order Comment: Speci men Type: BLOOD SPECIMENOrdering Facility: [facility] Address: [address] [place] [address] Performed By: #### 2 4323-8, ####[facility] LABORATORYCLIA [id number] [facility] [place] [address] [place] Creatinine [Mass/Vol] 1.22 mg/dL Normal 0.73-1.22 [facility] Comment on above: Order Comment: Speci men Type: BLOOD SPECIMENOrdering Facility: [facility] Address: [address] [place] [address] Performed By: #### 2 4328, ####[facility] LABORATORYCLIA [id number] [facility] [place] [address] [place] Creatinine and Glomerular filtration rate.predicted panel (S/P/Bld) 63 mL/min/1.73m??? Normal >=60 [facility] Comment on above: Order Comment: Speci men Type: BLOOD SPECIMENOrdering Facility: [facility] Address: [address] [place] [address] Result Comment: Deepthi mated Glomerular Filtration Rate (eGFR) is calculated using the 2020 CKD-EPI creatinine equation. This equation utilizes serum creatinine, sex, and age as parameters. The creatinine assay has traceable calibration to isotope dilution-mass spectrometry. Refer to KDIGO guidelines for clinical interpretation. In patients with unstable renal function, e.g. those with acute kidney injury, the eGFR may not accurately reflect actual GFR. Performed By: #### 2 4323-8, ####[facility] LABORATORYCLIA [id number] [facility] [place] [address] [place] Glucose [Mass/Vol] 144 mg/dL High 74-99 [facility] Comment on above: Order Comment: Speci men Type: BLOOD SPECIMENOrdering Facility: [facility] Address: [address] [place] [address] Result Comment: The [place] Diabetes Association (ADA) provides guidance for cutoff values for fasting glucose and random glucose. The ADA defines fasting as no caloric intake for at least 8 hours. Fasting plasma glucose results between 100 to 125 mg/dL indicate increased risk for diabetes (prediabetes).Fasting plasma glucose results greater than or equal to 126 mg/dL meet the criteria for diagnosis of diabetes. In the absence of unequivocal hyperglycemia, results should be confirmed by repeat testing. In a patient with classic symptoms of hyperglycemia or hyperglycemic crisis, random plasma glucose results greater than or equal to 200 mg/dL meet the criteria for diagnosis of diabetes.Reference: Standards of Medical Care in Diabetes 2016, [place] Diabetes Association. Diabetes Care. 2016.39(Suppl 1). Performed By: #### 2 43207-14, ####[facility] LABORATORYCLIA [id number] [place] [address] [place] Potassium [Moles/Vol] 4.2 mmol/L Normal 3.7-5.1 [facility] Comment on above: Order Comment: Speci [facility] Type: BLOOD SPECIMENOrdering Facility: [facility] Address: [address] [place] [address] Performed By: #### 2 4322-12, ####[facility] HELENACLIA [id number] [place] [address] [place] Protein [Mass/Vol] 7.7 g/dL Normal 6.3-8.0 [facility] Comment on above: Order Comment: Speci men Type: BLOOD SPECIMENOrdering Facility: [facility] Address: [address] [place] [address] Performed By: #### 2 4322-12, ####[facility] LABORATORYIA [id number] [place] [address] [place] Sodium [Moles/Vol] 135 mmol/L Low 136-144 [facility] Comment on above: Order Comment: Speci men Type: BLOOD SPECIMENOrdering Facility: [facility] Address: [address] [place] [place] [address] Performed By: #### 2 4323-8, ####[facility] [id number] [place] [address] [place] Urea nitrogen [Mass/Vol] 27 mg/dL High 9-24 [facility] Comment on above: Order Comment: Speci men Type: BLOOD SPECIMENOrdering Facility: [facility] Address: [address] [place] [id number] Performed By: #### 2 4323-8, ####[facility] [id number] [place] [id number] [place] ED NOTEon 04-02-2024 ED NOTE Normal [facility] ED NOTE Normal [facility] ED PROV NOTEon 04-02-2024 ED PROV NOTE Normal [facility] Magnesium SerPl-mCncon 04-02 Magnesium [Mass/Vol] 1.8 mg/dL Normal 1.7-2.3 [facility] Comment on above: Order Comment: Speci men Type: BLOOD SPECIMENOrdering Facility: [facility] Address: [address] [place], [place] [address] [id number] Performed By: #### 2 4323-8, ####[facility] [id number] [place] [address] [place] SEPSIS LACTATE W/ REFLEX (IN ITIAL)on 04-02-2024 Lactate [Moles/Vol] 1.3 mmol/L Normal 0.0-2.0 [facility] Comment on above: Order Comment: Speci men Type: BLOOD SPECIMENOrdering Facility: [facility] Address: [address] [place], [place] [address] [address] Performed By: #### S LACTR ####[facility] [id number] [place] [address] [place] Urinalysis complete panel (U )on 04-02-2024 Bacteria LM.HPF (Urine sed) [#/Area] Moderate Abnormal None Seen [facility] Comment on above: Order Comment: Speci men Type: URINE SPECIMENOrdering Facility: [facility] Address: [address] [place] [address] Performed By: #### 2 4356-8 ####[facility] [id number] [place] [address] [place] Bilirubin Ql (U) Negative Normal Negative [facility] Comment on above: Order Comment: Speci men Type: URINE SPECIMENOrdering Facility: [facility] Address: [address] [place] [address] Performed By: #### 2 4356-8 ####[facility] [id number] [place] [address] [place] Clarity (Unsp spec) Clear Normal Clear [facility] Comment on above: Order Comment: Speci men Type: URINE SPECIMENOrdering Facility: [facility] Address: [address] [place] [address] Performed By: #### 2 4356-8 ####[facility] [id number] [place] [address] [place] Color (U) Yellow Normal yellow [facility] Comment on above: Order Comment: Speci men Type: URINE SPECIMENOrdering Facility: [facility] Address: [address] [place] [address] Performed By: #### 2 4356-8 ####[facility] [id number] [place] [address] [place] Epithelial cells LM.HPF (Urine sed) [#/Area] Few Normal [facility] Comment on above: Order Comment: Speci men Type: URINE SPECIMENOrdering Facility: [facility] Address: [address] [place] [address] Performed By: #### 2 4356-8 ####[facility] [id number] [place] [address] [place] Glucose Test strip (U) [Mass/Vol] Negative Normal Trace, Negative [facility] Comment on above: Order Comment: Speci men Type: URINE SPECIMENOrdering Facility: [facility] Address: [address] [place] [address] Performed By: #### 2 4356-8 ####[facility] [id number] [place] [address] [place] Hemoglobin Ql (U) 2+ Abnormal Negative, Trace [facility] Comment on above: Order Comment: Speci men Type: URINE SPECIMENOrdering Facility: [facility] Address: [address] [place] [address] Performed By: #### 2 4356-8 ####[facility] LABORATORYIA [id number] [place] [address] [place] Ketones Ql (U) Negative Normal Negative, Trace [facility] Comment on above: Order Comment: Speci men Type: URINE SPECIMENOrdering Facility: [facility] Address: [address] [place] [address] Performed By: #### 2 4356-8 ####[facility] [id number] [place] [address] [place] Leukocyte esterase Test strip Ql (U) Negative Normal Negative, 25 Swetha/uL [facility] Comment on above: Order Comment: Speci men Type: URINE SPECIMENOrdering Facility: [facility] Address: [address] [place] [address] Performed By: #### 2 4356-8 ####[facility] [id number] [place] [address] [place] Nitrite Ql (U) Negative Normal Negative [facility] Comment on above: Order Comment: Speci men Type: URINE SPECIMENOrdering Facility: [facility] Address: [address] [place] [address] Performed By: #### 2 4356-8 ####[facility] [id number] [place] [address] [place] pH (U) 6.0 [pH] Normal 5.0-8.0 [facility] Comment on above: Order Comment: Speci men Type: URINE SPECIMENOrdering Facility: [facility] Address: [address] [place], [place] [address] Performed By: #### 2 4356-8 ####[facility] [id number] [place] [address] [place] Protein (U) [Mass/Vol] 3+ Abnormal Trace , Negative [facility] Comment on above: Order Comment: Speci men Type: URINE SPECIMENOrdering Facility: [facility] Address: [address] [place] [address] Performed By: #### 2 4356-8 ####[facility] [id number] [place] [address] [place] RBC LM.HPF (Urine sed) [#/Area] /[HPF] Abnormal 0-3 /HPF [facility] Comment on above: Order Comment: Speci men Type: URINE SPECIMENOrdering Facility: [facility] Address: [address] [place] [address] Performed By: #### 2 4356-8 ####[facility] [id number] [place] [id number] [place] Specific gravity (U) [Rel density] 1.021 Normal 1.005-1.030 [facility] Comment on above: Order Comment: Speci men Type: URINE SPECIMENOrdering Facility: [facility] Address: [address] [place] [address] Performed By: #### 2 4356-8 ####[facility] [id number] [place] [id number] [place] Urobilinogen Ql (U) Normal Normal Normal [facility] Comment on above: Order Comment: Speci men Type: URINE SPECIMENOrdering Facility: [facility] Address: [address] [place] [address] Performed By: #### 2 4356-8 ####[facility] [id number] [place] [address] [place] WBC LM.HPF (Urine sed) [#/Area] 6-10 /HPF Abnormal 0-5 /HPF [facility] Comment on above: Order Comment: Speci men Type: URINE SPECIMENOrdering Facility: [facility] Address: [address] [place] [address] Performed By: #### 2 4356-8 ####[facility] LABORATORYCLIA [id number] [place] [address] [place] XR CHEST 1V FRONTAL PORTon 1 06-02-2023 XR CHEST 1V FRONTAL PORT Normal [facility] ALL HGB HCTon 03-26-2024 Hematocrit (Bld) [Volume fraction] 25.2 % Low 42.0 - 54.0 % [facility] Hemoglobin (Bld) [Mass/Vol] 8.3 g/dL Low 14.0 - 18.0 g/dL [facility] Interpretation and review of laboratory results Abnormal [facility] CLINISYNC [facility] C[facility] CBC W AUTO DIFF BLDon Basophils/100 WBC (Bld) 0.6 % N [facility] BASOPHILS # BLD AUTO <0.03 [facility] DIFFERENTIAL METHOD BLD Auto [facility] EOSINOPHIL # BLD AUTO <0.03 [facility] LYMPHOCYTES # BLD AUTO 0.93 Low [facility] MONOCYTES # BLD AUTO 0.17 [facility] NEUTROPHILS # BLD AUTO 0.68 [facility] NRBC # BLD AUTO <0.01 [facility] NRBC/100 WBC BLD-RTO 0 /100 WBC [facility] PLATELET # BLD AUTO 64 Low [facility] Comment on above: No clot detected. [facility] PMV BLD AUTO 11.4 fL 9.0 - 12.7 fL [facility] RED CELL MORPH Reviewed: unremarkable [facility] WBC # BLD AUTO 1.79 Low [facility] Eosinophils/100 WBC (Bld) 0 % [facility] Erythrocyte distribution width (RBC) [Ratio] 14.8 % 11.5 - 15.0 % [facility] Hematocrit (Bld) [Volume fraction] 24.2 % Low 39.0 - 51.0 % [facility] Hemoglobin (Bld) [Mass/Vol] 8 g/dL Low 13.0 - 17.0 g/dL [facility] IMM GRANULOCYTES # BLD AUTO <0.03 [facility] IMM GRANULOCYTES/LEUK NFR BLD AUTO 0 % [facility] Interpretation and review of laboratory results Abnormal [facility] Lymphocytes/100 WBC (Bld) 52 % [facility] MCH (RBC) [Entitic mass] 32.5 pg 26.0 - 34.0 pg [facility] MCHC (RBC) [Mass/Vol] 33.1 g/dL 30.5 - 36.0 g/dL [facility] MCV (RBC) [Entitic vol] 98.4 fL 80.0 - 100.0 fL [facility] Monocytes/100 WBC (Bld) 9.5 % N [facility] Neutrophils/100 WBC (Bld) 37.9 % [facility] Comment on above: Differential confirm ed by visual scan of peripheral blood smear slide. RBC (Bld) [#/Vol] 2.46 10*6/uL Low 4.20 - 6.0 0 m/uL [facility] Specimen Type: BLOOD SPECIMEN [facility] Address: [address] [place] [address] Original Ordering Provider: VIMAL CASILLAS [facility] COMP METAB 1999 PNL SERP Russel 03-26-2024 Albumin [Mass/Vol] 3.5 g/dL Low 3.9 - 4.9 g/dL [facility] ALP [Catalytic activity/Vol] 89 U/L 38 - 113 U/L [facility] ALT [Catalytic activity/Vol] 33 U/L 10 - 54 U/L [facility] Anion gap [Moles/Vol] 10 mmol/L 8 - 15 mmol/L [facility] Calcium [Mass/Vol] 9.2 mg/dL 8.5 - 10. 2 mg/dL [facility] AST SERPL-CCNC 45 U/L High 14 - 40 U/L [facility] BILIRUB SERPL-MCNC 0.5 mg/dL 0.2 - 1.3 mg/dL [facility] PROT SERPL-MCNC 6.8 g/dL 6.3 - 8. 0 g/dL [facility] Chloride [Moles/Vol] 106 mmol/L 98 - 10 7 mmol/L [facility] CO2 [Moles/Vol] 24 mmol/L 22 - 30 mmol/L [facility] Creatinine [Mass/Vol] 1.22 mg/dL 0.73 - 1.22 mg/dL [facility] GFR/1.73 sq M.predicted CKD-EPI (S/P/Bld) [Vol rate/Area] 63 - PINF [facility] Comment on above: Estimated Glomerular Filtration Rate (eGFR) is calculated using the 2020 CKD-EPI creatinine equation. This equation utilizes serum creatinine, sex, and age as parameters. The creatinine assay has traceable calibration to isotope dilution-mass spectrometry. Refer to KDIGO guidelines for clinical interpretation. In patients with unstable renal function, e.g. those with acute kidney injury, the eGFR may not accurately reflect actual GFR. Glucose [Mass/Vol] 199 mg/dL High 74 - 99 mg/dL [facility] Comment on above: The [place] Diabete s Association (ADA) provides guidance for cutoff values for fasting glucose and random glucose. The ADA defines fasting as no caloric intake for at least 8 hours. Fasting plasma glucose results between 100 to 125 mg/dL indicate increased risk for diabetes (prediabetes). Fasting plasma glucose results greater than or equal to 126 mg/dL meet the criteria for diagnosis of diabetes. In the absence of unequivocal hyperglycemia, results should be confirmed by repeat testing. In a patient with classic symptoms of hyperglycemia or hyperglycemic crisis, random plasma glucose results greater than or equal to 200 mg/dL meet the criteria for diagnosis of diabetes. Reference: Standards of Medical Care in Diabetes 2016, [place] Diabetes Association. Diabetes Care. 2016.39(Suppl 1). Interpretation and review of laboratory results Abnormal [facility] Potassium [Moles/Vol] 4.8 mmol/L 3.7 - 5.1 mmol/L [facility] Sodium [Moles/Vol] 140 mmol/L 136 - 144 mmol/L [facility] Urea nitrogen [Mass/Vol] 26 mg/dL High 9 - 24 mg/dL [facility] Specimen Type: BLOOD SPECIMEN [facility] Address: [address] [place] [address] Original [facility]: [facility] CC LDH SERPL-CCNCon -18-2 024 [facility] LDH SERPL-CCNC 184 U/L 135 - 225 U/L [facility] Specimen Type: BLOOD SPECIMEN [facility] Address: [address] [place] [address] Original Ordering Provider: [facility] PHOSPHATE SERPL-MCNCon 1 05-26-2023 [facility] PHOSPHATE SERPL-MCNC 3.4 mg/dL 2.7 - 4.8 mg/dL [facility] Specimen Type: BLOOD SPECIMEN [facility] Address: [address] [place] [address] Original Ordering Provider: [facility] URATE SERPL-MCNCon 03-26 [facility] URATE SERPL-MCNC 6.6 mg/dL 4.0 - 8 .1 mg/dL [facility] Specimen Type: BLOOD SPECIMEN [facility] Address: [address] [place] [address] Original Ordering Provider: [facility] CCF 25(OH)D3 SERPL-MCNCon CCF 25(OH)D3 SERPL-MCNC 29.9 ng/mL Low 31.0 - 80.0 ng/mL [facility] Comment on above: Classification of 25 [place] Vitamin D status: Deficiency/Insufficiency: < or = 30 ng/ml. Sufficiency/Optimal Levels: 31-80 ng/mL Toxicity: > 100 ng/mL. Test performed by chemiluminescent immunoassay. Interpretation and review of laboratory results Abnormal [facility] Specimen Type: BLOOD SPECIMEN Ordering Facility: Miguel Angel Lora MD Address: [address] [address] Original Ordering Provider: MIGUEL ANGEL LORA [facility] ALBUMIN/CREAT RATIO (UAC R) (FOR REMOTE [facility] USE)on 03-20-2024 Albumin/Creatinine DL <= 20 mg/L (U) [Mass ratio] 971 mg/g High NINF - 30 mg/g [facility] Comment on above: Adult Male and Femal e Nephrotic Criteria: <30 mg/g is considered normal to mildly increased 30-300 mg/g is considered moderately increased >300 mg/g is considered severely increased KDIGO. (2013). KDIGO 2012 Clinical Practice Guideline for the Evaluation and Management of Chronic Kidney Disease. Official Journal of the International Society of Nephrology, 3(1), 1-150. [facility] CREAT UR-MCNC 160.2 mg/dL 20.0 - 300 .0 mg/dL [facility] MICROALBUMIN UR-MCNC 1556 mg/L [facility] Interpretation and review of laboratory results Abnormal [facility] Specimen Type: URINE SPECIMEN Ordering Facility: Miguel Angel Lora MD Address: [address], [place] [address] Original Ordering Provider: MIGUEL ANGEL LORA CLINISYNC [facility] C[facility] CBC W AUTO DIFF BLDon Basophils/100 WBC (Bld) 0 % N [facility] ANISOCYTOSIS Present [facility] BASOPHILS # BLD AUTO 0 NINF [facility] DACRYOCYTES BLD QL SMEAR Few [facility] DIFFERENTIAL METHOD BLD Manual [facility] EOSINOPHIL # BLD AUTO 0.07 NINF [facility] LYMPHOCYTES # BLD AUTO 0.81 Low [facility] META% 4 % [facility] MONOCYTES # BLD AUTO 0.4 [facility] MYELO% 6 % [facility] NEUTROPHILS # BLD AUTO 2.01 [facility] NRBC # BLD AUTO 0.[address] [facility] NRBC/100 WBC BLD-RTO 1 /100 WBC [facility] OVALOCYTES BLD QL SMEAR Few [facility] PLATELET # BLD AUTO 42 Low N [facility] Comment on above: No clot detected. [facility] PMV BLD AUTO 9.8 fL 9.0 - 12.7 fL [facility] POLYCHROMASIA BLD QL SMEAR Slight [facility] RBC FRAGMENTS Few Abnormal None Seen [facility] RED CELL MORPH Reviewed: see result s of individual morphologies [facility] WBC # BLD AUTO 3.66 Low [facility] [facility] WBC LEFT SHIFT BLD QL AUTO Present [facility] Eosinophils/100 WBC (Bld) 2 % [facility] Erythrocyte distribution width (RBC) [Ratio] 15.6 % High 11.5 - 15.0 % [facility] Hematocrit (Bld) [Volume fraction] 30.6 % Low 39.0 - 51.0 % [facility] Hemoglobin (Bld) [Mass/Vol] 10.3 g/dL Low 13.0 - 17.0 g/dL [facility] Interpretation and review of laboratory results Abnormal [facility] Lymphocytes/100 WBC (Bld) 22 % [facility] MCH (RBC) [Entitic mass] 33.4 pg 26.0 - 34.0 pg [facility] MCHC (RBC) [Mass/Vol] 33.7 g/dL 30.5 - 36.0 g/dL [facility] MCV (RBC) [Entitic vol] 99.4 fL 80.0 - 100.0 fL [facility] Monocytes/100 WBC (Bld) 11 % [facility] Neutrophils/100 WBC (Bld) 55 % [facility] PLATELET # BLD EST Decreased [facility] RBC (Bld) [#/Vol] 3.08 10*6/uL Low 4.20 - 6.0 0 m/uL [facility] Specimen Type: BLOOD SPECIMEN Ordering Facility: [facility] Address: [address] [place] [address] [place] [address] Original Ordering Provider: VIMAL CASILLAS [facility] LIPID 1996 PNL SERPLon 1 05-20-2023 [facility] CHOLEST/HDLC SERPL 3.07 NINF - 5.10 [facility] FASTING TIME 0 hrs [facility] LDLC SERPL-MCNC 17 mg/dL NINF - 1 00 mg/dL [facility] Comment on above: <100 mg/dL, Optimal 100-129 mg/dL, Near optimal/above optimal 130-159 mg/dL, Borderline high 160-189 mg/dL, High >189 mg/dL, Very high Secondary prevention optimal LDL Cholesterol levels are recommended to be < 70 mg/dL [facility] LDLC/HDLC SERPL 0.57 NINF - 2.54 [facility] Comment on above: Reference: 1. National Cholesterol Education Program ATP III Guideline At-A-Glance Quick Desk Reference: National Heart, Lung, and Blood Post. National Institutes of Health. 2001: NIH Publication No. 01-3305. 2. An International Atherosclerosis Society position paper: global recommendations for the management of dyslipidemia: executive summary, Atherosclerosis. 2014: 232(2):410-413. [facility] NONHDLC SERPL-MCNC 62 mg/dL NINF - 130 mg/dL [facility] Comment on above: <130 mg/dL, Optimal 130-159 mg/dL, Near optimal/above optimal 160-189 mg/dL, Borderline high 190-219 mg/dL, High >219 mg/dL, Very high Secondary prevention optimal non HDL Cholesterol levels are recommended to be <100 mg/dL [facility] TRIGL SERPL-MCNC 225 mg/dL High NINF - 150 mg/dL [facility] Comment on above: <150 mg/dL, Normal 150-199 mg/dL, Borderline high 200-499 mg/dL, High >499 mg/dL, Very high [facility] VLDLC SERPL CALC-MCNC 45 mg/dL High NINF - 30 mg/dL [facility] Cholesterol [Mass/Vol] 92 mg/dL NINF - 200 mg/dL [facility] Comment on above: <200 mg/dL, Desirabl e 200-239 mg/dL, Borderline high >239 mg/dL, High Cholesterol in HDL [Mass/Vol] 30 mg/dL Low 39 - PINF mg/dL [facility] Comment on above: 40-59 mg/dL, Accepta ble >59 mg/dL, High: Negative risk factor for coronary heart disease <40 mg/dL, Low: Positive risk factor for coronary heart disease Interpretation and review of laboratory results Abnormal [facility] Specimen Type: BLOOD SPECIMEN Ordering Facility: Miguel Angel Lora MD Address: [address] [place] [address], [address] [id number] Original Ordering Provider: MIGUEL ANGEL LORA [facility] COMP METAB 2000 PNL SERP Russel 03-19-2024 Albumin [Mass/Vol] 3.8 g/dL Low 3.9 - 4.9 g/dL [facility] ALP [Catalytic activity/Vol] 85 U/L 38 - 113 U/L [facility] ALT [Catalytic activity/Vol] 31 U/L 10 - 54 U/L [facility] Anion gap [Moles/Vol] 12 mmol/L 8 - 15 mmol/L [facility] Calcium [Mass/Vol] 9 mg/dL 8.5 - 10. 2 mg/dL [facility] AST SERPL-CCNC 68 U/L High 14 - 40 U/L [facility] BILIRUB SERPL-MCNC 0.6 mg/dL 0.2 - 1.3 mg/dL [facility] PROT SERPL-MCNC 7.3 g/dL 6.3 - 8. 0 g/dL [facility] Chloride [Moles/Vol] 97 mmol/L Low 98 - 10 7 mmol/L [facility] CO2 [Moles/Vol] 24 mmol/L 22 - 30 mmol/L [facility] Creatinine [Mass/Vol] 1.44 mg/dL High 0.73 - 1.22 mg/dL [facility] GFR/1.73 sq M.predicted CKD-EPI (S/P/Bld) [Vol rate/Area] 52 Low - PINF [facility] Comment on above: Estimated Glomerular Filtration Rate (eGFR) is calculated using the 2020 CKD-EPI creatinine equation. This equation utilizes serum creatinine, sex, and age as parameters. The creatinine assay has traceable calibration to isotope dilution-mass spectrometry. Refer to KDIGO guidelines for clinical interpretation. In patients with unstable renal function, e.g. those with acute kidney injury, the eGFR may not accurately reflect actual GFR. Glucose [Mass/Vol] 266 mg/dL High 74 - 99 mg/dL [facility] Comment on above: The [place] Diabete s Association (ADA) provides guidance for cutoff values for fasting glucose and random glucose. The ADA defines fasting as no caloric intake for at least 8 hours. Fasting plasma glucose results between 100 to 125 mg/dL indicate increased risk for diabetes (prediabetes). Fasting plasma glucose results greater than or equal to 126 mg/dL meet the criteria for diagnosis of diabetes. In the absence of unequivocal hyperglycemia, results should be confirmed by repeat testing. In a patient with classic symptoms of hyperglycemia or hyperglycemic crisis, random plasma glucose results greater than or equal to 200 mg/dL meet the criteria for diagnosis of diabetes. Reference: Standards of Medical Care in Diabetes 2016, [place] Diabetes Association. Diabetes Care. 2016.39(Suppl 1). Interpretation and review of laboratory results Abnormal [facility] Potassium [Moles/Vol] 4.7 mmol/L 3.7 - 5.1 mmol/L [facility] Sodium [Moles/Vol] 133 mmol/L Low 136 - 144 mmol/L [facility] Urea nitrogen [Mass/Vol] 21 mg/dL 9 - 24 mg/dL [facility] Specimen Type: BLOOD SPECIMEN Ordering Facility: [facility] Address: [address] [place] [address] Original Ordering Provider: VIMAL CASILLAS [facility] LDH SERPL-CCNCon 11-11-2 024 [facility] LDH SERPL-CCNC 328 U/L High 135 - 225 U/L [facility] Interpretation and review of laboratory results Abnormal [facility] Specimen Type: BLOOD SPECIMEN Ordering Facility: [facility] Address: [address] [place] [address] Original Ordering Provider: [facility] PHOSPHATE SERPL-MCNCon 1 05-19-2023 [facility] PHOSPHATE SERPL-MCNC 4.8 mg/dL 2.7 - 4.8 mg/dL [facility] Specimen Type: BLOOD SPECIMEN Ordering Facility: [facility] Address: [address] [place] [address] Original Ordering Provider: [facility] URATE SERPL-MCNCon 03-19 [facility] URATE SERPL-MCNC 7.1 mg/dL 4.0 - 8 .1 mg/dL [facility] Specimen Type: BLOOD SPECIMEN Ordering Facility: [facility] Address: [address] [place] [address] Original Ordering Provider: [facility] MAGR PACU Recordon MAGR PACU Record MAGR PACU Record Summary Primary Physician: Orlin Lorenzana DO Finalized Date/Time: 03/19/24 13:21:55 Pt. Name: JON BAUER Ketan Minaya/Sex: 1950 MALE Med Rec #: [id number] Physician: Orlin Lorenzana DO Financial #: [id number] Pt. Type: D Room/Bed: / Admit/Disch: 02/06/24 10:56:23 - 02/06/24 15:12:00 Institution: PACU Case Times MAGR Entry 1 In PACU I 02/06/24 12:55:00 Discharge from PACU 02/06/24 13:47:00 I Last Modified By: Debbi Condon RN 03/19/24 13:21:53 Finalized By: Debbi Condon RN Document Signatures Signed By: Kina Gruber RN 02/06/24 13:48 Debbi Condon RN 03/19/24 13:21 Unfinalized History Date/Time Username Reason for Unfinalizing Freetext Reason for Unfinalizing 03/19/24 13:21 RSCOTT Correct Documentation Decreasing time by 1 minute in order for charges to drop correctly. Normal [facility] MAGR Postoperative Recordon 03-19-2024 MAGR Postoperative Record MAGR Phase II Record Summary Primary Physician: Orlin Lorenzana DO Finalized Date/Time: 03/19/24 13:22:12 Pt. Name: JON BAUER Ketan Jarrell./Sex: 1950 MALE Med Rec #: [id number] Physician: Orlin Lorenzana DO Financial #: [id number] Pt. Type: D Room/Bed: / Admit/Disch: 02/06/24 10:56:23 - 02/06/24 15:12:00 Institution: Phase II Case Times MAGR Pre-Care Text: Patient is free from s/s of injury. Patient remains free from compromised physical state related to surgery or anesthesia. Patient comfort maintained. Patient/family verbalize understanding of discharge instructions. Entry 1 In PACU II 02/06/24 13:50:00 Discharge from PACU 02/06/24 15:11:00 II Last Modified By: Debbi Condon RN 03/19/24 13:22:10 Post-Care Text: The patient remains free from s/s of injury. Patient's vital signs stable, circulation maintained, return to preop mental and physical status, opsite/dressing intact, minimal or absent nausea and vomiting, tolerates po intake. Patient verbalizes adequate pain control. Patient/family express understanding of discharge instructions. Finalized By: Debbi Condon RN Document Signatures Signed By: Rocio Robertson RN 02/06/24 15:16 Debbi Condon RN 03/19/24 13:22 Unfinalized History Date/Time Username Reason for Unfinalizing Freetext Reason for Unfinalizing 03/19/24 13:22 [email or web address] Correct Documentation Decreasing time by 1 minute in order for charges to drop correctly. Normal [facility] CBC W AUTO DIFF BLDon Basophils/100 WBC (Bld) 0 % N [facility] BASOPHILS # BLD AUTO <0.03 NINF [facility] DIFFERENTIAL METHOD BLD Auto [facility] EOSINOPHIL # BLD AUTO <0.03 [facility] LYMPHOCYTES # BLD AUTO 1.15 [facility] MONOCYTES # BLD AUTO 0.18 [facility] NEUTROPHILS # BLD AUTO 0.76 Low [facility] NRBC # BLD AUTO <0.01 [facility] NRBC/100 WBC BLD-RTO 0 /100 WBC [facility] PLATELET # BLD AUTO 100 Low N [facility] Comment on above: No clot detected. C[facility] PMV BLD AUTO 8.7 fL Low 9.0 - 12.7 fL [facility] WBC # BLD AUTO 2.11 Low [facility] Eosinophils/100 WBC (Bld) 0.5 % [facility] Erythrocyte distribution width (RBC) [Ratio] 15 % 11.5 - 15.0 % [facility] Hematocrit (Bld) [Volume fraction] 27.8 % Low 39.0 - 51.0 % [facility] Hemoglobin (Bld) [Mass/Vol] 9.3 g/dL Low 13.0 - 17.0 g/dL [facility] IMM GRANULOCYTES # BLD AUTO <0.03 [facility] IMM GRANULOCYTES/LEUK NFR BLD AUTO 0.5 % [facility] Interpretation and review of laboratory results Abnormal [facility] Lymphocytes/100 WBC (Bld) 54.5 % [facility] MCH (RBC) [Entitic mass] 33.7 pg 26.0 - 34.0 pg [facility] MCHC (RBC) [Mass/Vol] 33.5 g/dL 30.5 - 36.0 g/dL [facility] MCV (RBC) [Entitic vol] 100.7 fL High 80.0 - 100.0 fL [facility] Monocytes/100 WBC (Bld) 8.5 % [facility] Neutrophils/100 WBC (Bld) 36 % [facility] RBC (Bld) [#/Vol] 2.76 10*6/uL Low 4.20 - 6.0 0 m/uL [facility] Specimen Type: BLOOD SPECIMEN Ordering Facility: [facility] Address: [address] [place] [address] Original Ordering Provider: VIMAL CASILLAS [facility] URINALYSIS, REFLEX MICROSCOP ICon 03-06-2024 Bacteria LM.HPF (Urine sed) [#/Area] Negative Negative /HPF [facility] Bilirubin Ql (U) Negative Negative [facility] Clarity (Unsp spec) Clear Clear [facility] Color (U) Yellow Yellow [facility] Epithelial cells LM.HPF (Urine sed) [#/Area] None Seen /HPF [facility] Glucose Test strip (U) [Mass/Vol] 2+ Abnormal Negative [facility] Hemoglobin Ql (U) 1+ Abnormal Negative [facility] Hyaline casts (Urine sed) [#/Area] 1-3 /LPF Abnormal 0 /LPF [facility] Interpretation and review of laboratory results Abnormal [facility] Ketones Ql (U) Negative Negative [facility] Leukocyte esterase Test strip Ql (U) Negative Negative [facility] Nitrite Ql (U) Negative Negative [facility] pH (U) 5.5 [pH] NINF - 8.5 [facility] Protein (U) [Mass/Vol] 3+ Abnormal Negative [facility] RBC LM.HPF (Urine sed) [#/Area] 6-10 /HPF Abnormal 0-2 /HPF [facility] Specific gravity (U) [Rel density] 1.019 1.005 - 1.030 [facility] Urobilinogen Ql (U) 0.2 EU/dL 0.2-1.0 EU/dL [facility] WBC LM.HPF (Urine sed) [#/Area] 0-5 /HPF 0-5 /HPF [facility] This test was developed and its performance characteristics determined by [facility]'s [facility] Pathology and Laboratory Medicine Post [facility] It has not been cleared or approved by the FDA. [facility] is regulated under CLIA as qualified to perform high-complexity testing. This test is used for clinical purposes. It should not be regarded as investigational or for research. [facility] CBC W AUTO DIFF BLDon Basophils/100 WBC (Bld) 0.3 % N [facility] BASOPHILS # BLD AUTO <0.03 [facility] DIFFERENTIAL METHOD BLD Auto [facility] EOSINOPHIL # BLD AUTO <0.03 [facility] LYMPHOCYTES # BLD AUTO 1.4 [facility] MONOCYTES # BLD AUTO 0.26 [facility] NEUTROPHILS # BLD AUTO 1.75 [facility] NRBC # BLD AUTO <0.01 [facility] NRBC/100 WBC BLD-RTO 0 /100 WBC [facility] PLATELET # BLD AUTO 101 Low N [facility] PMV BLD AUTO 8.3 fL Low 9.0 - 12.7 fL [facility] WBC # BLD AUTO 3.45 Low [facility] Eosinophils/100 WBC (Bld) 0.6 % [facility] Erythrocyte distribution width (RBC) [Ratio] 14.9 % 11.5 - 15.0 % [facility] Hematocrit (Bld) [Volume fraction] 30.5 % Low 39.0 - 51.0 % [facility] Hemoglobin (Bld) [Mass/Vol] 10.2 g/dL Low 13.0 - 17.0 g/dL [facility] IMM GRANULOCYTES # BLD AUTO <0.03 [facility] IMM GRANULOCYTES/LEUK NFR BLD AUTO 0.3 % [facility] Interpretation and review of laboratory results Abnormal [facility] Lymphocytes/100 WBC (Bld) 40.6 % [facility] MCH (RBC) [Entitic mass] 33.6 pg 26.0 - 34.0 pg [facility] MCHC (RBC) [Mass/Vol] 33.4 g/dL 30.5 - 36.0 g/dL [facility] MCV (RBC) [Entitic vol] 100.3 fL High 80.0 - 100.0 fL [facility] Monocytes/100 WBC (Bld) 7.5 % [facility] Neutrophils/100 WBC (Bld) 50.7 % [facility] RBC (Bld) [#/Vol] 3.04 10*6/uL Low 4.20 - 6.0 0 m/uL [facility] Specimen Type: BLOOD SPECIMEN Ordering Facility: [facility] Address: [address] [place], [place] [id number] Original Ordering Provider: VIMAL CASILLAS [facility] Coding Summaryon 02-20-2024 Coding Summary HTMLBase 64 PsjpgoeqJGp5vNd+PGhlYW Q+BG6BZEVpB62ctEMjbC1p D0JKCCsDJzfiDRVRYOrOTd XjfcIcAV5mjXQbMCSa IC8+XN4fDOChWvzelQBgq1 H1wGI6K60ynk8dFJhnbHQ3 HGDiQfPqptlii3wxnWk9QW cuNmluOyBt KRAcyQ17CTI3rF05To52fJ YurGRgf0fbeUs5HxUnYHOz PCV2mPotOHdfx3IzFHBpF5 6ysFDmp5O3 SIHwpBdphKCmYcNpaLS4mG 5qDCmjrfpjj3yafamsUpm0 fi34bJOwx4I7nNT6L4Lfkw H8JNTvbCUn DibkyMNPkR3hryjrw2xkii jtUcDsCDYqQTx7JDj7WYAo sNpsBkItFF69KXV9NPYxui BrQ3BgDWYy cUakVzY5t7R3Wo5FZ8KTGg wcO3PHPUNQULgcmXX+PC90 rs46Z6HuWnxiEay2RZCfCB B7qBJ0cL8n TCJfHZpce1I6lIL3B9Rbfq Iyyn3zq1ffVYTdPPntU21l jTHmb9E9DKObrLT6STNlyF lrFcYqpI85 Oyc+ZXVmyWztq3MaGnlvp4 cij3jgnLw2QtdjUFWexaMb aAocHVA8o5OjRc9oCRVakI E5eQG0tE6y BhWjXlM5LLwsJ296LwGlyA VoKanqQ45hS4UtqYV+PHRy Fdi7WVDwuJevUJ2tV9ExPO RpbmctbGVm tUioGE3iHRUalybmIYUgjC 6jFCQsL6d6FlYjVhS4SBhp X0RsJVYswpcfFp44nT8zBn OuVgP4ULlb Q2LddwD4WMXvzVIxQGjrRO F9V43el6Y4JCOwPNXcNRX5 fGW1vO2rhKcxhyavqENzeD sgdmVydGlj JVmgKPnuI702JQQqpSzbJa NvZGluZyBEYXRlOiAgMTAv MTQvMjAyNDwvdGQ+PHRkIH F5jIauTMVe dBOrTSotVv6fnOvnrUhdLB 8mKIOyssjcLEZsoI0kUQJi sVRlmUdpXT8pKRXmctcll4 70PgFpLQR9 XMShoHWpA2DypT6sIiKzRS IkFVJhF9OirLGaGUicA237 DVnlMsS5PJEhbbKpV9JlYT FsaWduOiB0 a1A6Pw7Sa0DpneilT0PuaP DcWlOhYvpkRWi3H2KyRzat dHI+CQ97RLUdTT93UKc9XM F4fStuIVau GGCyB6MhaI1cMuLuYIXuJX RkOyc+PHRhYmxlIHdpZHRo BHdnKBWrZrWljJxmRV4sEh 9yZGVyLWNv kZvhuBPlPwMok5aoAKPlOX sjVI2aoKtuX5WkkJX4EEJj w3r8Mg44M88eK3OdiFK+PG IphOH6gIG7 yF7fUnUtKqC2EOxeL487Rh XxqUQnCryko7ozo5typUb7 CzR8IWLkzfMwoWcqRJX1h2 KdFi86N02a IHdpZHRoPSIxNSUiIHZhbG tqpk7liF1xAg2+PGNvbCB3 oNQ4bX2hWhErGfT4WAddD5 49InRvcCIv Jhrpf7zzb1drwWg7YxEdNU YienSfdTdaFUY8j5GrKj66 T8OnyKqjm2NxUrh0ps29dM Blj7K1vHE6 Y5FyBUWtdogjaVWbuIbwCD 0hRKCazgwfHQNdmY8dQUFk A1e7NeQsOuS8RFjeY7Ikjn P3DUZneAMu SGKbvKXSvA4iznyto9nynd zuYlHqJIXhXXd1KXl6KGSg zSjnFvYbYYL9LnZ2TDN3oJ ZsxD2jaZqs uyxbmU9kAgm+XVN6zNJnoL IWDI5fFusmnLE+PHRkIHN0 eOhdDLjrMYNwpO4jYAXzF8 h8XwGrCtI4 GUmlH3EgvqP4IAHhiCKpOT MbuPCSyW0ogteyd6myefmy LoPzFSAzQVg4MOq2UMRyuA duOiBsZWZ0 AlQ6UVN0jDSopS8qxMeqmj xxsW6xWpv+QmlydGggRGF0 MUw5Q8CbXwc2RAMeyXwsCZ 0ncGFkZGlu Fe6uqXfxsZmsFV6vJSAogo qrq833HqHaa0wtVHNqxWVb BRlwITT5Q27vx2G5WFNvEE PlEQZ6gGJ9 rF7apWoieufirQPjhIeind OgmPncGJxfAFoeY744RHJd tMlhUpLwWGl1E9GtRly7FX WtjIadOA5o dUSkDTnbAj1hdOsjqTrwQD 1sYSBrlrntg346OuSrd9pr NHJpvKJoMLpcKEL3X20ns8 M4PWRmSGOb DUH1wHF7lY3lxRidyvbehM VmdDsgdmVydGljYWwtYWxp F202YAZrcZjoAkFyeWg8M0 TqSlv3UOOv wSaoOL0ejTAdAMdwQd1ifZ eokQmdYB2nHGJlztjzo891 IrArg0ajVDTxlFBnSKqyIY R7N52fj8C7 LXSmFQOdVAV2zKG0kH4eoL lnbjogbGVmdDsgdmVydGlj BEwjQVcaR339MYKcmBuxFl BhdGllbnQg UVglVBs3U3OzTjjicKT+PC 39LAKyLR98uQOphJYwq1vt bNs6LfGgQGHqHND5pGqiAB ypr8HxFLXe R50gmXRkb6W7QSSbmFwuuK FyJxUgkEO8dI8rOHpbdovz c9vaaznnRgsjp4ygsq74aR 87S13wJXjf ZHRoPSIzMCUiIHZhbGlnbj 6buI7lHb8+YWPzjRN5pOL0 qP2pZOEsXnB3ZQosM000Dj RvcCIvPjxj h3llw0qsxJd8XgV6YWXfxo HpvSltTXV8h7AfXe40J95n IHdpZHRoPSIyMCUiIHZhbG wfet3zsF4f Ii8+VVRktMV6zNN2mW7jTz DmPzY3FFshF554PjOacTXf NmdcU46jY9JbnNP+PHRyPj n5VPMboVat LE4foOBbOPtsOb2pDZF4Rm RfWqXeWVzmE3GdNSYnkpfu npotiJQ9BKUpFEBtjI02Ru 9udDogMTBw pLWMfF9zxkevh8qmdaisZo SuADAmVEb1FUh6WUElgJom HzUkLQM1DhL7AMY6gCBffP 1hbGlnbjog nI0nI7HmOMYpkmctWa58hP 9eLoAlEqG7KWktCjm+T1ZF Nf0WOIEzLBcRHiquDUkxmQ Q+PHRkIHN0 rFrkVElxBHVqwJ0cLSXeI3 z8PbWkDkI1VOxiB2HmPFUv vxhfHn00jQ3bAnMhAkO3UE zzL7DuvqO8 JLDbkRWbQCcpGNX7D38fj5 P9UADeZYKfJSM1lHU7vE7p bGlnbjogbGVmdDsgdmVydG ljYWwtYWxp D993ZLPhqYcaRjX7ChK6Zp V7OCL6U0VoJnf9KODceDmg ZG8szQTyOKgpPx3cyIgfjD tvRT3fOTIb jwjuKQYtvZ7nAZLiuXVugI atJM4eGFVchiqnw851JcVe VWR8FCLtbWZxG4ApvY0uPq AjMDAwMDAw T2GbkTSmXUzlM748BLndFy H1FLDkfbQkL4MlAYFukYgl AfU4l5S0Up26LKIGPAVpzn wvdGQ+PHRk TPM8jAifWAieUPIhxT2lMN CgH7p1NkDtNfP8HEazK3Qp QESnurgeMu88gW0tGjQuJw K0ZEefG0Lg vmX6FBKxcHZvHHrvCHG7Z9 3wi7B9PCBuDPVyPQH3hCZ9 rR9jbOpqxgqxjSKqeQibfx VydGljYWwt WNzdS643EXYldZioGm1EYI C5T8LyNeu7WYMbyDqdZW1k oZBtGTpgYa9niOdsaWddJD 4wNTBpbjtw SERprF0wJPCjbBRtyIvpVY 0zMKQllfppt287JzPaKKO6 UUGlyCZfF6QoiV4zHvEuTP MbBKNoH3Gh oMDaMOmdZ243MGjqTqT1OA NcuxIsC6AzBDChpMjuMtE3 r6N3Dt8ZMKviY9HsL8BqlG wvdGQ+PC90 ap28K9LkTynnIgm7HGBbCN B1uYT5fX5yFTNmTKqwo0T2 qTL2X2NrxwEqek9hn1vsPP CuHFciU95e sHPad4I5PHZoeYG2OPTucX ixVlWnuA77Fty+PGNvbGdy u0UyNtvfn3dwj2zroIp5Vl MwJSIgdmFs vLepYLM2i0SaEj29F38uAG dpZHRoPSIzMCUiIHZhbGln fn4aeG2nBr7+XHJubNN8bP H8gC3gOkLq JqA6AGwkO207GnVplUEvLk rqo4syi1sxyTu6AkWeUEMu bvBbvCuwORV1z4AlLe99N6 ZftKloh8Dw Jgt4um65iKOrg7V9iFW6P6 CpFDYoxkphgMRanGacOG3a YVRvnboqBAMkzO0kDTRnN7 q9LkAbErP3 ULuqH7IwdfY3ANDzsVGsFU FmuBLXtG7kikayt7bbupuj FwQbDBBbGDq3SXk4NORocL duOiBsZWZ0 PlB2KHV5uXVqxI9ocOpbkr pgeE0sUzy+VGu8x1rzfOJx WT5ytUT8BP29BZ30fCCdi4 D7pWZ3F2Gg IINuwrovnpvrfHS2NJAkFY MnnK93Ud1edYtrGr4lLSMy CFI1JYWjtZWwY0YieN1tWy AjMDAwMDAw W3TwvZRmQBgcF595BVfcSc H4BDSpfbQcK1YtNNPnpOmx JzI6q7P4Wb5DGR96FN11KP 46qXXqe4L1 aMG5Q9TtXJRudbxinvjmbA Z3XRHxGAUaoO19Sa2mrDlw Is7mGHAxAIZ6FYCtjGDfW2 OlbV0bXdFi GPRfYSKhN9UbtJBmROgiQ8 94MIouKoL0IZJkazQcX3Eg DCGmeJtlVnD0v4O0Lv6PKj 19HF15UI90 bUQmy9F0tKY1R7XtCDMfpj flrebffZD1FPKcEEYedZ35 Hv5xsQwrWb1yPWCyQKX0NM PihSVtM5Hp zY6qJrKuEDWhRYCrD5LkvJ AeFLwqX332DKppSfC9VYMi sqYbF0GuMDAveNolWrI8e6 D9Hh2EXHxt zfw3N7RnNgqxzCO+PC90YW FrFU42vIHzoGHaq2nadEc8 YfLnOHRuRCU1zZrgLRbsw2 FbWLHfW35u [facility] (more content not included)... [facility] Consultation/Specialist Note on 02-08-2024 Consultation/Specialist Note [id number]#1.00 [facility] Consent Formson 02-07-2024 Consent Forms [id number]#1.00 [facility] Discharge Instructionson Discharge Instructions [id number]#1.[address] [place] [address] Outside Recordson 02-07-2024 Outside Records [id number]#1.[address] [place] [address] Telemetry Stripson Telemetry Strips [id number]#1.00 [facility] Anesthesia Noteon 02-06-2024 Anesthesia Note Patient: JON BAUER Age: 73 years Sex: MALE : 1950 Associated Diagnoses: None Author: Preston Cotton MD Postoperative Information Post Operative Note: Post Anesthesia Care Unit. Health Status Allergies: Allergic Reactions (All) Severe Tamiflu- Vomit. Nonallergic Reactions (All) Severe Sulfamethoxazole-trime thoprim- Nausea. Unknown Amoxicillin-clavulanat e- Diarrhea. Physical Examination VS/Measurements Vital Signs 02/06/2024 12:56 EDT Temperature Temporal Artery 35.7 DegC LOW Temperature Temporal Artery (DegF) 96.26 DegF LOW Heart Rate Monitored 55 bpm LOW Respiratory Rate 18 br/min Systolic Blood Pressure 113 mmHg Diastolic Blood Pressure 70 mmHg Mean Arterial Pressure, Cuff 84 mmHg BP Site Right arm SpO2 96 % Oxygen Flow Rate 8 L/min Oxygen Therapy Simple mask BP Method Automatic General: No acute distress. Respiratory: Respirations are non-labored. Review / Management Result Review Lab results: 02/06/2024 13:01 EDT Glucose, POC 196 mg/dL HI Condition: Stable. Assessment Anesthetic outcome No anesthetic complications noted. Adequate pain relief. No Complaint of nausea and vomiting. Plan Transfer/ Discharge: Patient can be discharged from PACU when criteria met. Condition stable. [Electronically Signed on: 02/06/2024 13:05 EDT] Preston Cotton MD [Verified on: 02/06/2024 13:05 EDT] Preston Cotton MD [facility] Anesthesia Note Patient: JON BAUER Age: 73 years Sex: MALE : 1950 Associated Diagnoses: None Author: Preston Cotton MD Preoperative Information Anesthesia history: Patient history: No difficult intubation, No malignant hyperthermia. Family history: No malignant hyperthermia. Review of Systems Respiratory: No shortness of breath, No apnea. Cardiovascular: stable AAA, No chest pain. Gastrointestinal: No heartburn. Endocrine: uncontrolled DM despite insulin. Health Status Allergies: Allergic Reactions (All) Severe Tamiflu- Vomit. Nonallergic Reactions (All) Severe Sulfamethoxazole-trime thoprim- Nausea. Unknown Amoxicillin-clavulanat e- Diarrhea. Current medications: Home Medications (18) Active acetaminophen 500 mg oral tablet 1,000 mg = 2 tab(s), PRN, Oral, Daily ALPRAZolam 0.5 mg oral tablet 0.5 mg = 1 tab(s), PRN, Oral, TID atorvastatin 10 mg oral tablet 10 mg = 1 tab(s), Oral, Daily Basaglar KwikPen 100 units/mL subcutaneous solution 50 unit(s), Subcutaneous, HS cetirizine 10 mg oral tablet 10 mg = 1 tab(s), Oral, Daily fluticasone 50 mcg/inh nasal spray 1 spray(s), Nostril-Both, Daily gabapentin 100 mg oral capsule 100 mg = 1 cap(s), Oral, Daily Lexapro 10 mg oral tablet 10 mg = 1 tab(s), Oral, Daily NovoLOG FlexPen 100 units/mL injectable solution 12 unit(s), Subcutaneous, AC Lunch NovoLOG FlexPen 100 units/mL injectable solution 10 unit(s), Subcutaneous, AC Breakfast NovoLOG FlexPen 100 units/mL injectable solution 15 unit(s), Subcutaneous, HS Probiotic Formula 1 tab(s), Oral, Daily rOPINIRole 2 mg oral tablet 2 mg = 1 tab(s), Oral, Daily THC gummie 1 gummie(s), PRN, Oral Trulicity Pen 1.5 mg/0.5 mL subcutaneous solution 1.5 mg = 0.5 mL, Subcutaneous, qWeek Venclexta 100 mg oral tablet 100 mg = 1 tab(s), Oral, Daily Vitamin D and K oral tablet 1 tab(s), Oral, Daily Vitamin D3 1000 intl units oral capsule 50 mcg = 2 cap(s), Oral, Daily Problem list (past medical history): All Problems Abdominal aortic aneurysm / SNOMED CT 190080605 / Confirmed Acute posthemorrhagic anemia / SNOMED CT 951360430 / Confirmed Allergic rhinitis / SNOMED CT 471568827 / Confirmed Chronic fatigue syndrome / SNOMED CT 09547904 / Confirmed Chronic frontal sinusitis / SNOMED CT 88637635 / Confirmed Chronic kidney disease stage 3 / SNOMED CT 3137045599 / Confirmed Chronic pain / SNOMED CT 871500139 / Confirmed Disorder of kidney due to diabetes mellitus / SNOMED CT 5382644237 / Confirmed Diverticular disease / SNOMED CT 8563648276 / Confirmed History of antineoplastic chemotherapy / SNOMED CT 7044694294 / Confirmed History of autologous bone marrow transplant / SNOMED CT 1806252426 / Confirmed Hyperlipidemia / SNOMED CT 73872555 / Confirmed Immunodeficiency disorder / SNOMED CT 527238187 / Confirmed Liver cell carcinoma / SNOMED CT 071552908 / Confirmed Liver enzymes level above reference range / SNOMED CT 4913445726 / Confirmed Mixed hyperlipidemia / SNOMED CT 161052696 / Confirmed Multiple myeloma / SNOMED CT 632629069 / Confirmed Muscle weakness / SNOMED CT 62247925 / Confirmed Obese class I / SNOMED CT 098088641879736 / Confirmed Osteochondropathy / SNOMED CT 511468153 / Confirmed Pancytopenia / SNOMED CT 540730 / Confirmed Restless legs / SNOMED CT 74014582 / Confirmed Thrombocytopenic disorder / SNOMED CT 185717710 / Confirmed Type 2 diabetes mellitus / SNOMED CT 218991135 / Confirmed Xeroderma / SNOMED CT 10658725 / Confirmed Resolved: Methicillin resistant Staphylococcus aureus infection / SNOMED CT 4236042767 Resolved: Neuropathy / SNOMED CT 9285469652 Histories Family History: No family history items have been selected or recorded. Procedure history: Liver operation (734183487) in the month of 10/2022 at 72 Years. Comments: 06/29/2023 14:46 Janell Denney RN resection Stem cell transplant ([id number]) in 2020 at 70 Years. Colonoscopy (727476606). Arthroscopy of shoulder (471748779). Comments: 06/29/2023 14:47 Janell Denney RN left Cyst ([id number]). Comments: 06/29/2023 14:46 Janell Denney RN cheek Cholecystectomy (54421532). 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 Comments: 06/29/2023 14:48 Janell Denney RN x 2 Trigger finger ([id number]). Comments: 06/29/2023 14:48 Janell Denney RN right Foot ([id number]). Comments: 06/29/2023 14:47 Janell Denney RN left reconstruction Arthroscopy of right knee joint (7873277648). Social History Electronic Cigarette/Vaping Assessment Electronic Cigarette Use: Never. Alcohol Assessment Use: Past. Beer, Wine, Liquor, 1-2 times per week, Stopped age 42 Years. Tobacco Assessment Former tobacco user Tobacco Use:. 1 pack a day per day. 52 year(s). Started age 18 Years. Stopped age 62 Years. Substance Abuse Assessment Substance use: Current. Marijuana, 1-2 times per week, Started age 69 Years. Substance use: Current. Comment: [email or web address] Comment (more content not included)... Normal [facility] Inpatient Patient Summaryon 02-06-2024 Inpatient Patient Summary [place] [id number] Patient Discharge Instructions Name: JON BAUER : 1950 Patient Address: [address] [place] [address] Primary Care Provider: Name: NASIR, LETHA After you are discharged if you find you have any questions, please, call [phone] ext [phone] to speak to a nurse. Discharge Diagnosis: Complex tear of lateral meniscus of left knee; Complex tear of medial meniscus of left knee Prescription Information: If you have been given a prescription for narcotics, seek immediate medical attention if you have any difficulty breathing or any sudden status changes such as confusion and sleepiness. If you or anyone you know is experiencing suicidal thoughts, mental health, alcohol and/or drug addiction problems; contact the [facility] 29/11 Crisis Hotline -text 4HOPE to 822482. If you received any narcotics, sedation, or any other medication that causes drowsiness for the next 24 hours, unless otherwise directed: ? Do not drive a car. ? Do not operate machinery such as power tools, lawn mowers, drills, sewing machines, or stoves ? Avoid alcoholic beverages and drugs for allergies, nerves, or sleep ? Do not make important personal or business decisions or sign any legal documents [facility] would like to thank you for allowing us to assist you with your healthcare needs. The following includes patient education materials and information regarding your injury/illness. JON BAUER has been given the following list of follow-up instructions, prescriptions, and patient education materials: Follow-up Instructions With: Address: When: Taya Alexander [address] [place] [address], [address] [place] [address] Business (1) 02/14/2024 1:45 PM Medications During the course of your visit, your medication list was updated with the most current information. The details of those changes are reflected below: Medications to Continue That Have Not Changed Other Medications acetaminophen (acetaminophen 500 mg oral tablet) 2 tab(s) Oral (given by mouth) every day as needed for pain. ALPRAZolam (ALPRAZolam 0.5 mg oral tablet) 1 tab(s) Oral (given by mouth) 3 times per day as needed for anxiety. atorvastatin (atorvastatin 10 mg oral tablet) 1 tab(s) Oral (given by mouth) every day. bifidobacterium-lactob acillus (Probiotic Formula) 1 tab(s) Oral (given by mouth) every day. cetirizine (cetirizine 10 mg oral tablet) 1 tab(s) Oral (given by mouth) every day. cholecalciferol (Vitamin D3 1000 intl units oral capsule) 2 cap(s) Oral (given by mouth) every day. dulaglutide (Trulicity Pen 1.5 mg/0.5 mL subcutaneous solution) 0.5 Milliliter Subcutaneous (under the skin) every week. escitalopram (Lexapro 10 mg oral tablet) 1 tab(s) Oral (given by mouth) every day. fluticasone nasal (fluticasone 50 mcg/inh nasal spray) 1 spray(s) Nostril-Both every day. gabapentin (gabapentin 100 mg oral capsule) 1 cap(s) Oral (given by mouth) every day. insulin aspart (NovoLOG FlexPen 100 units/mL injectable solution) 10 unit(s) Subcutaneous (under the skin) once a day before breakfast. insulin aspart (NovoLOG FlexPen 100 units/mL injectable solution) 15 unit(s) Subcutaneous (under the skin) At bedtime. insulin aspart (NovoLOG FlexPen 100 units/mL injectable solution) 12 unit(s) Subcutaneous (under the skin) once a day before lunch. insulin glargine (Basaglar KwikPen 100 units/mL subcutaneous solution) 50 unit(s) Subcutaneous (under the skin) At bedtime. multivitamin (Vitamin D and K oral tablet) 1 tab(s) Oral (given by mouth) every day. rOPINIRole (rOPINIRole 2 mg oral tablet) 1 tab(s) Oral (given by mouth) every day. Template Non-Formulary (THC gummie) 1 gummie(s) Oral (given by mouth) as needed pain. venetoclax (Venclexta 100 mg oral tablet) 1 tab(s) Oral (given by mouth) every day. It is important to always keep an active list of medications available so that you can share with other providers and manage your medications appropriately. As an additional courtesy, we are also providing you with your final active medications list that you can keep with you. acetaminophen (acetaminophen 500 mg oral tablet) 2 tab(s) Oral (given by mouth) every day as needed for pain. ALPRAZolam (ALPRAZolam 0.5 mg oral tablet) 1 tab(s) Oral (given by mouth) 3 times per day as needed for anxiety. atorvastatin (atorvastatin 10 mg oral tablet) 1 tab(s) Oral (given by mouth) every day. bifidobacterium-lactob acillus (Probiotic Formula) 1 tab(s) Oral (given by mouth) every day. cetirizine (cetirizine 10 mg oral tablet) 1 tab(s) Oral (given by mouth) every day. cholecalciferol (Vitamin D3 1000 intl units oral capsule) 2 cap(s) Oral (given by mouth) every day. dulaglutide (Trulicity Pen 1.5 mg/0.5 mL subcutaneous solution) 0.5 Milliliter Subcutaneous (under the skin) every week. (more content not included)... Normal [facility] MAGR Intraoperative Recordon 02-06-2024 MAGR Intraoperative Record MAGR Intra-Op Record Summary Primary Physician: Orlin Lorenzana DO Finalized Date/Time: 02/06/24 14:35:48 Pt. Name: KIRITVINCENTJON/Sex: 1950 MALE Med Rec #: [id number] Physician: Orlin Lorenzana DO Financial #: [id number] Pt. Type: D Room/Bed: / Admit/Disch: 02/06/24 10:56:23 - Institution: Case Times MAGR Entry 1 Patient In Room Time 02/06/24 12:19:00 Out Room Time 02/06/24 12:54:00 Anesthesia Start Time 02/06/24 12:18:00 Stop Time 02/06/24 12:54:00 Surgery Start Time 02/06/24 12:39:00 Stop Time 02/06/24 12:49:00 Last Modified By: Hina Parker RN 02/06/24 12:54:45 Case Attendance MAGR Entry 1 Entry 2 Entry 3 Case Attendee Ignacia Barney CST, Barbara RN Huddleston, James CSFA Andrew DO Role Performed Oil Filters Inspector Cable Way Operator Surgeon - Primary Time In 02/06/24 12:19:00 02/06/24 12:19:00 02/06/24 12:30:00 Time Out 02/06/24 12:54:00 02/06/24 12:54:00 02/06/24 12:46:00 Procedure Arthroscopy Knee(Left) Arthroscopy Knee(Left) Arthroscopy Knee(Left) Last Modified By: Elena RN, Hina Parker RN, Hina Parker RN, Hina 02/06/24 12:55:05 02/06/24 12:55:05 02/06/24 12:55:05 Entry 4 Entry 5 Entry 6 Case Attendee Elena JOHNSON, Preston Carpenter MD, Kelly CST Role Performed Cable Way Operator Anesthesiologist of Scrub Personnel Record Time In 02/06/24 12:19:00 02/06/24 12:19:00 02/06/24 12:19:00 Time Out 02/06/24 12:54:00 02/06/24 12:54:00 02/06/24 12:54:00 Procedure Arthroscopy Knee(Left) Arthroscopy Knee(Left) Arthroscopy Knee(Left) Last Modified By: Elena RN, Hina Parker RN, Hian Parker RN, Hina 02/06/24 12:55:05 02/06/24 12:55:05 02/06/24 12:55:05 Surgical Procedures MAGR Pre-Care Text: A.20 Verifies operative procedure, surgical site, and laterality Im.150 Develops individualized plan of care Entry 1 Procedure Arthroscopy Knee Primary Procedure Yes Primary Surgeon Orlin Lorenzana DO Surgeon Comment LEFT KNEE SCOPE-MEDIAL Start 02/06/24 12:39:00 MENISECTOMY Stop 02/06/24 12:49:00 Anesthesia Type General Surgical Service Orthopedics Wound Class Clean Technique Details Closure Technique Primary Entire procedure No was performed via laparoscope or robotic assistance Last Modified By: Hina Parker RN 02/06/24 12:53:53 Post-Care Text: O.730 The patient's care is consistent with the individualized perioperative plan of care General Case Data MAGR Pre-Care Text: A.350.1 Classifies surgical wound Entry 1 Case Information OR MAGR OR 01 Case Level Level 4 Wound Class Clean Specialty Orthopedics ASA Class 3 Diagnosis Preop Diagnosis MENISCUS TEAR LEFT Postop Same As Preop Yes Postop Diagnosis MENISCUS TEAR LEFT Blunt or No Is the procedure No penetrating injury considered occured prior to Emergent/Urgent? the start of the procedure: Last Modified By: Hina Parker RN 02/06/24 12:44:14 Post-Care Text: O.760 Patient receives consistent and comparable care regardless of the setting Time Out MAGR Entry 1 Procedure(s) Arthroscopy Knee(Left) Time Out Checklist Verifications Team Introductions Yes Confirmed Identity, Yes Completed Procedure, Incision Site, and Consent(s) Presence of Yes Site Verification, Yes Necessary Site Marking, Site Procedural Marking Equipment, Devices, Alternative, and/or and Implants Site Marking Verified Exception in Accordance with Facility Policy Anesthesia Review Antibiotic Received Yes All Anesthesia Yes Within an Concerns Addressed Appropriate Time Interval Prior to Surgical Incision Surgeon Review Anticipated Blood Yes Expected Case Yes Loss Risk Addressed Duration Addressed Critical and Yes Non-Routine Steps to be Performed Addressed Nurse Review Equipment Yes Fire Risk Yes Checks/Concerns Assessment Addressed Completed and Interventions Performed Diagnostic and n/a Sterilization n/a Radiological Test Concerns Addressed Results Displayed are Appropriate and Labeled Other Concerns n/a Addressed Time Out Orlin Lorenzana Time Out Time 02/06/24 12:38:00 Participants Lula Eason DO, Satya S MD, Usha Solomon RN, Elena JOHNSON, Ector Santamaria Lauren M CASKET COVERER CSFA, Ofelia Gaffney CASKET COVERER Last Modified By: Hina Parker RN 02/06/24 12:45:09 Patient Positioning MAGR Pre-Care Text: A.280 Identifies baseline musculoskeletal status Im.40 Positions the patient Im.80 Applies safety devices Entry 1 Procedure Arthroscopy Knee(Left) Body Position Supine Left Arm Position Extended on padded arm Right Arm Position Extended on padded arm board board Left Leg Position Other/see comments Right Leg Position Other/see comments Feet Uncrossed? Yes Press Points Checked Yes Additional Operative leg in Positioning Device Safety Strap, Arm Information arthroscopic knee Boards, Leg Stacy stacy with padded insert, non operative leg supported with a th (more content not included)... [facility] Preoperative Record MAGR Pre-Op Record Summary Primary Physician: Orlin Lorenzana DO Finalized Date/Time: 02/06/24 14:01:52 Pt. Name: JON BAUER /Sex: 1950 MALE Med Rec #: [id number] Physician: Orlin Lorenzana DO Financial #: [id number] Pt. Type: D Room/Bed: / Admit/Disch: 02/06/24 10:56:23 - Institution: Pre-Op Case Times MAGR Pre-Care Text: Patient will be optimally prepared for surgery. Patient is free from s/s of injury. Provide information to patient/family related to plan of care. Verify patient allergies. Confirm identity and verify consent before the operative or invasive procedure. Entry 1 Patient Arrival Time 02/06/24 11:00:00 Preop Departure 02/06/24 12:17:00 Last Modified By: Rocio Robertson RN 02/06/24 14:01:46 Post-Care Text: Patient is prepared mentally and physically and is ready for surgery. The patient remains free from s/s of injury. Patient/family express understanding of plan of care and participate in decisions affecting his or her perioperrative plan of care. Allergies documented appropriately. Patient identifiers and consent correct. Finalized By: Rocio Robertson RN Document Signatures Signed By: Rocio Robertson RN 02/06/24 14:01 [facility] Operative Report - Surgeon/P tez 02-06-2024 Operative Report - Surgeon/Physician Preoperative diagnosis: Internal derangement left knee Postoperative diagnosis: Tear medial meniscus left knee Under malacia patella left knee Procedure: Arthroscopic partial medial meniscectomy left Surgeon: Enid Lorenzana D.O. 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 Procedure summary: After administration of anesthesia the leg was placed in leg stacy and prepped and draped usual fashion timeout was taken. An anterior lateral portal was established followed by an anterior medial The patellofemoral joint articular cartilage was extremely irregular fibrillated pieces were hanging down I did not see exposed bone but estimate that there was less than a millimeter left of cartilage before the bone surface. Utilizing a shaver that the unstable cartilage was shaved back to a stable base. Doing a gentle abrasion chondroplasty. In the medial compartment there was a tear of the posterior horn the medial meniscus the articular cartilage was intact utilizing a shaver the torn portion was excised the root remained intact. In the notch the ACL and PCL were intact Lateral compartment there is some minor free edge fraying of the lateral meniscus representing less than 2% of the entire meniscus surface this was just touched up with a shaver. The roots were intact I interrogated the meniscus there were no hidden tears otherwise. The articular cartilage was intact. Each compartment was revisited the joint was irrigated and evacuated and the portals were closed with nylon suture. Sterile dressings were applied. [Electronically Signed on: 02/06/2024 12:53 EDT] Orlin Lorenzana DO [Verified on: 02/06/2024 12:53 EDT] Orlin Lorenzana DO [facility] POCT Glucose Levelon 024 Glucose [Mass/Vol] 169 mg/dL High -[address] [place] [address] Comment on above: Result Comment: OPR_ ID=IN_LIST,TGC FLAG = False,Meter:[id number] Security Test Engineer:2004 Ailyn Elias Performed By: #### 4 [id number] ####[facility] (DEFAULT)[address] [place] [address] Glucose [Mass/Vol] 187 mg/dL High 74-118 [facility] Comment on above: Result Comment: OPR_ ID=IN_LIST,TGC FLAG = False,Meter:[id number] Security Test Engineer:2004 Ailyn Elias Performed By: #### 4 [id number] ####[facility] (DEFAULT)[address] [place] [address] Glucose [Mass/Vol] 196 mg/dL High 74-118 [facility] Comment on above: Result Comment: OPR_ ID=IN_LIST,TGC FLAG = False,Meter:[id number] Security Test Engineer:[id number] Uyen aMciel Performed By: #### 4 [id number] ####[facility] (DEFAULT)[address] [place] [address] Glucose [Mass/Vol] 219 mg/dL High 74-118 [facility] Comment on above: Result Comment: OPR_ ID=IN_LIST,TGC FLAG = False,Meter:[id number] Security Test Engineer:2004 Ailyn Elias Performed By: #### 4 [id number] ####[facility] (DEFAULT)[address] [place] [address] Glucose [Mass/Vol] 208 mg/dL High [address] [facility] Comment on above: Result Comment: OPR_ ID=IN_LIST,TGC FLAG = False,Meter:[id number] Security Test Engineer:2004 Ailyn Elias Performed By: #### 4 [id number] #### [facility] (DEFAULT) [address] [place] [address] Patient Handouton 02-06-[address] LORENZANA'S POS T OPERATIVE KNEE ARTHROSCOPY INSTRUCTIONS: SURGEON'S WRITTEN INSTRUCTIONS: 1. If you have been given a cryo cuff after surgery you should use it about 20 min/hour for the first 24 hours. After that it is optional. TIP: Many patients prefer to use it a little longer because it helps to reduce the pain. 2. You should take it easy for the first 3 days following surgery. You should be a ?couch potato? and get up to eat and go to the bathroom. After the first 3 days, you may gradually increase your activities as tolerated. 3. Change your dressing in 1 day. If the wounds are clean and dry you can cover them with a band-aid. 4. You may shower in 1 day. DO NOT submerge the wound under water as in a bathtub, swimming pool, or hot tub. 5. You may bear weight as tolerated. Using crutches or assisted devices is not required. 6. You should elevate your extremity. 7. If you have any questions or concerns, please call the office at [phone]. Normal [facility] CBC W AUTO DIFF BLDon Basophils/100 WBC (Bld) 0.4 % N [facility] BASOPHILS # BLD AUTO <0.03 [facility] DIFFERENTIAL METHOD BLD Auto [facility] EOSINOPHIL # BLD AUTO <0.03 [facility] LYMPHOCYTES # BLD AUTO 1.24 [facility] MONOCYTES # BLD AUTO 0.31 [facility] NEUTROPHILS # BLD AUTO 1.13 Low [facility] NRBC # BLD AUTO <0.01 [facility] NRBC/100 WBC BLD-RTO 0.0 /100 WBC [facility] PLATELET # BLD AUTO 101 Low [facility] PMV BLD AUTO 9.2 fL 9.0 - 12.7 fL [facility] WBC # BLD AUTO 2.71 Low [facility] Eosinophils/100 WBC (Bld) 0.4 % [facility] Erythrocyte distribution width (RBC) [Ratio] 14.6 % 11.5 - 15.0 % [facility] Hematocrit (Bld) [Volume fraction] 32.5 % Low 39.0 - 51.0 % [facility] Hemoglobin (Bld) [Mass/Vol] 11.3 g/dL Low 13.0 - 17.0 g/dL [facility] IMM GRANULOCYTES # BLD AUTO <0.03 [facility] IMM GRANULOCYTES/LEUK NFR BLD AUTO 0.4 % [facility] Interpretation and review of laboratory results Abnormal [facility] Lymphocytes/100 WBC (Bld) 45.8 % [facility] MCH (RBC) [Entitic mass] 34.2 pg High 26.0 - 34.0 pg [facility] MCHC (RBC) [Mass/Vol] 34.8 g/dL 30.5 - 36.0 g/dL [facility] MCV (RBC) [Entitic vol] 98.5 fL 80.0 - 100.0 fL [facility] Monocytes/100 WBC (Bld) 11.4 % [facility] Neutrophils/100 WBC (Bld) 41.6 % [facility] RBC (Bld) [#/Vol] 3.30 10*6/uL Low 4.20 - 6.0 0 m/uL [facility] Specimen Type: BLOOD SPECIMEN Ordering Facility: [facility] Address: [address] [place] [address] Original Ordering Provider: VIMAL CASILLAS [facility] Progress Note - Nurseon 01-08 Progress Note - Nurse Spoke with patient and informed him to be at hospital at 11am and NPO after MN, he verbalizes understanding. [Electronically Signed on: 02/03/2024 12:58 EDT] Tariq Amato RN [Verified on: 02/03/2024 12:58 EDT] Tariq Amato RN [facility] Progress Note - Nurse Dr Cotton reviews p t chart and no new orders were received. [Electronically Signed on: 02/03/2024 12:41 EDT] Tariq Amato RN [Verified on: 02/03/2024 12:41 EDT] Tariq Amato RN [facility] Glucose (Bld) [Mass/Vol]on 0 02-02-2024 Glucose Blood, POC 396 mg/dL [facility] Laboratory - Hematology and Cell countson 02-02-2024 HbA1c (Bld) [Mass fraction] 9.7 % [facility] No Panel Informationon 02-01 Interpretation and review of laboratory results Abnormal [facility] Progress Note - Nurseon 01-08 Progress Note - Nurse Dr. Vázquez and Dr Loe Patterson reviews PAT information and testing results. Awaiting for clearance from Oncologist for final ok for surgery. Will Show Dr. Vázquez the clearance when it comes. Call made to patient, [place] [address]03/24. [Electronically Signed on: 01/30/2024 14:49 EDT] Kina Gruber RN [Verified on: 01/30/2024 14:49 EDT] Kina Gruber RN [facility] CBC W AUTO DIFF BLDon Basophils/100 WBC (Bld) 0.0 % [facility] BASOPHILS # BLD AUTO <0.03 [facility] DIFFERENTIAL METHOD BLD Auto [facility] EOSINOPHIL # BLD AUTO <0.03 [facility] LYMPHOCYTES # BLD AUTO 1.24 [facility] MONOCYTES # BLD AUTO 0.42 [facility] NEUTROPHILS # BLD AUTO 0.46 [facility] NRBC # BLD AUTO <0.01 [facility] NRBC/100 WBC BLD-RTO 0.0 /100 WBC [facility] PLATELET # BLD AUTO 102 Low [facility] PMV BLD AUTO 9.0 fL 9.0 - 12.7 fL [facility] WBC # BLD AUTO 2.13 [facility] Eosinophils/100 WBC (Bld) 0.0 % [facility] Erythrocyte distribution width (RBC) [Ratio] 14.9 % 11.5 - 15.0 % [facility] Hematocrit (Bld) [Volume fraction] 33.5 % Low 39.0 - 51.0 % [facility] Hemoglobin (Bld) [Mass/Vol] 11.6 g/dL Low 13.0 - 17.0 g/dL [facility] IMM GRANULOCYTES # BLD AUTO <0.03 [facility] IMM GRANULOCYTES/LEUK NFR BLD AUTO 0.5 % [facility] Interpretation and review of laboratory results Abnormal [facility] Lymphocytes/100 WBC (Bld) 58.2 % [facility] MCH (RBC) [Entitic mass] 34.2 pg High 26.0 - 34.0 pg [facility] MCHC (RBC) [Mass/Vol] 34.6 g/dL 30.5 - 36.0 g/dL [facility] MCV (RBC) [Entitic vol] 98.8 fL 80.0 - 100.0 fL [facility] Monocytes/100 WBC (Bld) 19.7 % [facility] Neutrophils/100 WBC (Bld) 21.6 % [facility] RBC (Bld) [#/Vol] 3.39 10*6/uL Low 4.20 - 6.0 0 m/uL [facility] Specimen Type: BLOOD SPECIMEN Ordering Facility: [facility] Address: [address] [place] [address] Original Ordering Provider: [facility] ECG 12 leadOrdered By: Elizabeth Parker on 01-24-2024 [facility] LDH SERPL-CCNCon 024 [facility] LDH SERPL-CCNC 203 U/L 135 - 225 U/L [facility] Specimen Type: BLOOD SPECIMEN Ordering Facility: [facility] Address: [address] [place] [address] Original Ordering Provider: [facility] PHOSPHATE SERPL-MCNCon 0 01-20-2024 [facility] PHOSPHATE SERPL-MCNC 3.2 mg/dL 2.7 - 4.8 mg/dL [facility] Specimen Type: BLOOD SPECIMEN Ordering Facility: [facility] Address: [address] [place] [address] Original Ordering Provider: [facility] URATE SERPL-MCNCon 01-19 [facility] URATE SERPL-MCNC 5.7 mg/dL 4.0 - 8 .1 mg/dL [facility] Specimen Type: BLOOD SPECIMEN Ordering Facility: [facility] Address: [address] [place] [address] Original Ordering Provider: [facility] MR LOWER EXTREMITY JOINT LEF T WO IV CONTRASTon 01-13-2024 MR LOWER EXTREMITY JOINT LEFT WO IV CONTRAST EXAMINATION: MR LOWER EXTREMITY JOINT LEFT WO IV CONTRAST HISTORY: Left knee pain. Fall. Lateral pain. TECHNIQUE: Routine non-contrast MRI of the knee, LEFT COMPARISON: Radiographs 01/03/2024. RESULT: MENISCI: Medial Meniscus: Horizontal tear near the junction of the posterior horn and body, without significant meniscal displacement. Lateral Meniscus: Horizontal tear near the junction of the posterior horn and body, without significant meniscal displacement. LIGAMENTS: ACL, PCL, MCL, and LCL complex intact. CARTILAGE: Moderate areas of high-grade partial-thickness and full-thickness chondral loss involving the patella and trochlea, with subchondral cystic change. No distinct full-thickness chondral loss in the medial or lateral compartments, within limits of motion. Small osteophytes. 5 mm joint body posteriorly, located posterior to PCL. TENDONS: Mild distal quadriceps and patellar tendinosis, without tear. Popliteus intact. BONES AND MARROW: No evidence of fracture or bone marrow replacing process. MUSCLES: Muscle bulk and signal intensity are normal. JOINT FLUID AND SYNOVIUM: Moderate joint effusion. No synovitis. Trace Hassan's cyst. OTHER: Subcutaneous edema, especially anteriorly. IMPRESSION: Medial and lateral meniscal tears. Patellofemoral osteoarthritis. Joint body posteriorly. ELECTRONICALLY SIGNED BY: Thierry Jain MD Normal Not Available Comment on above: Order Comment: MRI L T knee w/o. [facility] [place] CBC W Auto Differential pane l (Bld)on 01-12-2024 Basophils (Bld) [#/Vol] [facility] Differential cell count method Nom (Bld) Auto [facility] Eosinophils (Bld) [#/Vol] 0.03 10*3/uL [facility] Immature granulocytes (Bld) [#/Vol] [facility] Immature granulocytes/100 WBC (Bld) 0.0 % [facility] Lymphocytes (Bld) [#/Vol] 1.19 10*3/uL [facility] Monocytes (Bld) [#/Vol] 0.22 10*3/uL [facility] Neutrophils (Bld) [#/Vol] 1.18 10*3/uL Low [facility] Nucleated RBC (Bld) [#/Vol] [facility] Nucleated RBC/100 WBC (Bld) [Ratio] 0.0 % /100 WBC [facility] Platelet mean volume (Bld) [Entitic vol] 8.8 fL Low 9.0 - 12.7 fL [facility] Platelets (Bld) [#/Vol] 90 10*3/uL Low [facility] WBC (Bld) [#/Vol] 2.62 10*3/uL Low [facility] CBC W AUTO DIFF BLDon [facility] BASOPHILS # BLD AUTO <0.03 [facility] DIFFERENTIAL METHOD BLD Auto [facility] EOSINOPHIL # BLD AUTO 0.03 [facility] LYMPHOCYTES # BLD AUTO 1.19 [facility] MONOCYTES # BLD AUTO 0.22 [facility] NEUTROPHILS # BLD AUTO 1.18 [facility] NRBC # BLD AUTO <0.01 [facility] NRBC/100 WBC BLD-RTO 0.0 /100 WBC [facility] PLATELET # BLD AUTO 90 Low [facility] PMV BLD AUTO 8.8 fL Low 9.0 - 12.7 fL [facility] WBC # BLD AUTO 2.62 [facility] IMM GRANULOCYTES # BLD AUTO <0.03 [facility] IMM GRANULOCYTES/LEUK NFR BLD AUTO 0.0 % [facility] Specimen Type: BLOOD SPECIMEN Ordering Facility: [facility] Address: [address] [place] [address] Original Ordering Provider: VIMAL CRANDALL [facility] Comprehensive metabolic 2000 panelon 01-12-2024 Albumin [Mass/Vol] 3.9 g/dL 3.9 - 4.9 g/dL [facility] ALP [Catalytic activity/Vol] 98 U/L 38 - 113 U/L [facility] ALT [Catalytic activity/Vol] 57 U/L High 10 - 54 U/L [facility] Anion gap [Moles/Vol] 11 mmol/L 8 - 15 mmol/L [facility] AST [Catalytic activity/Vol] 71 U/L High 14 - 40 U/L [facility] Bilirubin [Mass/Vol] 0.6 mg/dL 0.2 - 1 .3 mg/dL [facility] Calcium [Mass/Vol] 9.0 mg/dL 8.5 - 10. 2 mg/dL [facility] Chloride [Moles/Vol] 106 mmol/L 98 - 10 7 mmol/L [facility] CO2 [Moles/Vol] 21 mmol/L Low 22 - 30 mmol/L [facility] Creatinine [Mass/Vol] 1.13 mg/dL 0.73 - 1.22 mg/dL [facility] GFR/1.73 sq M.predicted among non-blacks MDRD (S/P/Bld) [Vol rate/Area] 69 mL/min/{1.73_m2} - PINF [facility] Comment on above: Estimated Glomerular Filtration Rate (eGFR) is calculated using the 2020 CKD-EPI creatinine equation. This equation utilizes serum creatinine, sex, and age as parameters. The creatinine assay has traceable calibration to isotope dilution-mass spectrometry. Refer to KDIGO guidelines for clinical interpretation. In patients with unstable renal function, e.g. those with acute kidney injury, the eGFR may not accurately reflect actual GFR. Glucose [Mass/Vol] 266 mg/dL High 74 - 99 mg/dL [facility] Comment on above: The [place] Di[employer] Association (ADA) provides guidance for cutoff values for fasting glucose and random glucose. The ADA defines fasting as no caloric intake for at least 8 hours. Fasting plasma glucose results between 100 to 125 mg/dL indicate increased risk for diabetes (prediabetes). Fasting plasma glucose results greater than or equal to 126 mg/dL meet the criteria for diagnosis of diabetes. In the absence of unequivocal hyperglycemia, results should be confirmed by repeat testing. In a patient with classic symptoms of hyperglycemia or hyperglycemic crisis, random plasma glucose results greater than or equal to 200 mg/dL meet the criteria for diagnosis of diabetes. Reference: Standards of Medical Care in Diabetes 2016, [place] [employer]. Diabetes Care. 2016.39(Suppl 1). Interpretation and review of laboratory results Abnormal [facility] Potassium [Moles/Vol] 3.9 mmol/L 3.7 - 5.1 mmol/L [facility] Protein [Mass/Vol] 6.6 g/dL 6.3 - 8.0 g/dL [facility] Sodium [Moles/Vol] 138 mmol/L 136 - 144 mmol/L [facility] Urea nitrogen [Mass/Vol] 28 mg/dL High 9 - 24 mg/dL [facility] LACTATE DEHYDROGENASEOrdered By: Heide Neil on 01-12-2024 LDH [Catalytic activity/Vol] 200 U/L 135 - 225 U/L [facility] LDH [Catalytic activity/Vol] Ordered By: Heide Neil on 01-12-2024 Interpretation and review of laboratory results Normal [facility] Laboratory - Hematology and Cell countson 01-12-2024 Basophils/100 WBC (Bld) 0.0 % C [facility]and [facility] Eosinophils/100 WBC (Bld) 1.1 % [facility] Erythrocyte distribution width (RBC) [Ratio] 14.5 % 11.5 - 15.0 % [facility] Hematocrit (Bld) [Volume fraction] 30.9 % Low 39.0 - 51.0 % [facility] Hemoglobin (Bld) [Mass/Vol] 10.9 g/dL Low 13.0 - 17.0 g/dL [facility] Lymphocytes/100 WBC (Bld) 45.4 % [facility] MCH (RBC) [Entitic mass] 34.3 pg High 26.0 - 34.0 pg [facility] MCHC (RBC) [Mass/Vol] 35.3 g/dL 30.5 - 36.0 g/dL [facility] MCV (RBC) [Entitic vol] 97.2 fL 80.0 - 100.0 fL [facility] Monocytes/100 WBC (Bld) 8.4 % C [facility]and [facility] Neutrophils/100 WBC (Bld) 45.1 % [facility] RBC (Bld) [#/Vol] 3.18 10*6/uL Low 4.20 - 6.0 0 m/uL [facility] No Panel Informationon 01-11 Interpretation and review of laboratory results Abnormal [facility] PHOSPHORUS INORGANICon 01-11 Phosphate [Mass/Vol] 3.4 mg/dL 2.7 - 4 .8 mg/dL [facility] Phosphate [Mass/Vol]on 01-11 Interpretation and review of laboratory results Normal [facility] URIC ACIDon 01-12-2024 Urate [Mass/Vol] 6.0 mg/dL 4.0 - 8.1 mg/dL [facility] Urate [Mass/Vol]on Interpretation and review of laboratory results Normal [facility] CBC W Auto Differential pane l (Bld)on 01-10-2024 Basophils (Bld) [#/Vol] [facility] Differential cell count method Nom (Bld) Auto [facility] Eosinophils (Bld) [#/Vol] [facility] Immature granulocytes (Bld) [#/Vol] [facility] Immature granulocytes/100 WBC (Bld) 0.8 % [facility] Lymphocytes (Bld) [#/Vol] 1.02 10*3/uL [facility] Monocytes (Bld) [#/Vol] 0.20 10*3/uL [facility] Neutrophils (Bld) [#/Vol] 1.32 10*3/uL Low [facility] Nucleated RBC (Bld) [#/Vol] [facility] Nucleated RBC/100 WBC (Bld) [Ratio] 0.0 % /100 WBC [facility] Platelet mean volume (Bld) [Entitic vol] 9.6 fL 9.0 - 12.7 fL [facility] Platelets (Bld) [#/Vol] 98 10*3/uL [facility] Comment on above: No clot detected. WBC (Bld) [#/Vol] 2.58 10*3/uL [facility] CBC W AUTO DIFF BLDon [facility] BASOPHILS # BLD AUTO <0.03 [facility] DIFFERENTIAL METHOD BLD Auto [facility] EOSINOPHIL # BLD AUTO <0.03 [facility] LYMPHOCYTES # BLD AUTO 1.02 [facility] MONOCYTES # BLD AUTO 0.20 [facility] NEUTROPHILS # BLD AUTO 1.32 [facility] NRBC # BLD AUTO <0.01 [facility] NRBC/100 WBC BLD-RTO 0.0 /100 WBC [facility] PLATELET # BLD AUTO 98 Low [facility] Comment on above: No clot detected. [facility] PMV BLD AUTO 9.6 fL 9.0 - 12.7 fL [facility] WBC # BLD AUTO 2.58 [facility] IMM GRANULOCYTES # BLD AUTO <0.03 [facility] IMM GRANULOCYTES/LEUK NFR BLD AUTO 0.8 % [facility] Specimen Type: BLOOD SPECIMEN Ordering Facility: [facility] Address: [address] [place] [address] Original Ordering Provider: VIMAL CASILLAS LACTATE DEHYDROGENASEOrdered By: Heide Neil on 01-10-2024 LDH [Catalytic activity/Vol] 219 U/L 135 - 225 U/L [facility] Comment on above: Hemolysis present. T he origin of the hemolysis, in vitro versus an in vivo hemolytic process, cannot be distinguished via this assay alone. In vitro hemolysis may lead to non-physiological (spurious) elevation in lactate dehydrogenase (LDH) results. The result should be interpreted in context of the clinical setting and other test results. Suggest reorder as clinically indicated. LDH [Catalytic activity/Vol] Ordered By: Heide Neil on 01-10-2024 Interpretation and review of laboratory results Normal [facility] Laboratory - Hematology and Cell countson 01-10-2024 Basophils/100 WBC (Bld) 0.0 % C [facility]and [facility] Eosinophils/100 WBC (Bld) 0.8 % [facility] Erythrocyte distribution width (RBC) [Ratio] 14.4 % 11.5 - 15.0 % [facility] Hematocrit (Bld) [Volume fraction] 31.2 % Low 39.0 - 51.0 % [facility] Hemoglobin (Bld) [Mass/Vol] 10.9 g/dL Low 13.0 - 17.0 g/dL [facility] Lymphocytes/100 WBC (Bld) 39.5 % [facility] MCH (RBC) [Entitic mass] 34.3 pg High 26.0 - 34.0 pg [facility] MCHC (RBC) [Mass/Vol] 34.9 g/dL 30.5 - 36.0 g/dL [facility] MCV (RBC) [Entitic vol] 98.1 fL 80.0 - 100.0 fL [facility] Monocytes/100 WBC (Bld) 7.8 % C leveland [facility] Neutrophils/100 WBC (Bld) 51.1 % [facility] RBC (Bld) [#/Vol] 3.18 10*6/uL Low 4.20 - 6.0 0 m/uL [facility] No Panel Informationon 01-09 Interpretation and review of laboratory results Abnormal [facility] PHOSPHORUS INORGANICon 01-09 Phosphate [Mass/Vol] 3.3 mg/dL 2.7 - 4 .8 mg/dL [facility] Phosphate [Mass/Vol]on 01-09 Interpretation and review of laboratory results Normal [facility] URIC ACIDon 01-10-2024 Urate [Mass/Vol] 6.5 mg/dL 4.0 - 8.1 mg/dL [facility] Urate [Mass/Vol]on Interpretation and review of laboratory results Normal [facility] COMP METAB 2000 PNL SERP Russel 01-05-2024 C[facility] AST SERPL-CCNC 58 U/L High 14 - 40 U/L [facility] BILIRUB SERPL-MCNC 0.6 mg/dL 0.2 - 1.3 mg/dL [facility] PROT SERPL-MCNC 6.6 g/dL 6.3 - 8. 0 g/dL [facility] GFR/1.73 sq M.predicted CKD-EPI (S/P/Bld) [Vol rate/Area] 67 - PINF [facility] Comment on above: Estimated Glomerular Filtration Rate (eGFR) is calculated using the 2020 CKD-EPI creatinine equation. This equation utilizes serum creatinine, sex, and age as parameters. The creatinine assay has traceable calibration to isotope dilution-mass spectrometry. Refer to KDIGO guidelines for clinical interpretation. In patients with unstable renal function, e.g. those with acute kidney injury, the eGFR may not accurately reflect actual GFR. Specimen Type: BLOOD SPECIMEN Ordering Facility: [facility] Address: [address] [place] [address] Original Ordering Provider: VIMAL CASILLAS [facility] LDH SERPL-CCNCon 024 [facility] LDH SERPL-CCNC 188 U/L 135 - 225 U/L [facility] Comment on above: Hemolysis present. T he origin of the hemolysis, in vitro versus an in vivo hemolytic process, cannot be distinguished via this assay alone. In vitro hemolysis may lead to non-physiological (spurious) elevation in lactate dehydrogenase (LDH) results. The result should be interpreted in context of the clinical setting and other test results. Suggest reorder as clinically indicated. [facility] PHOSPHATE SERPL-MCNCon 0 01-05-2024 [facility] PHOSPHATE SERPL-MCNC 3.6 mg/dL 2.7 - 4.8 mg/dL [facility] URATE SERPL-MCNCon 01-04 [facility] URATE SERPL-MCNC 5.9 mg/dL 4.0 - 8 .1 mg/dL [facility] Specimen Type: BLOOD SPECIMEN Ordering Facility: [facility] Address: [address] [id number] Original Ordering Provider: VIMAL CRANDALL [facility] Comprehensive metabolic 2000 panelon 01-05-2024 AST [Catalytic activity/Vol] 58 U/L High 14 - 40 U/L [facility] Bilirubin [Mass/Vol] 0.6 mg/dL 0.2 - 1 .3 mg/dL [facility] GFR/1.73 sq M.predicted among non-blacks MDRD (S/P/Bld) [Vol rate/Area] 67 mL/min/{1.73_m2} - PINF [facility] Comment on above: Estimated Glomerular Filtration Rate (eGFR) is calculated using the 2020 CKD-EPI creatinine equation. This equation utilizes serum creatinine, sex, and age as parameters. The creatinine assay has traceable calibration to isotope dilution-mass spectrometry. Refer to KDIGO guidelines for clinical interpretation. In patients with unstable renal function, e.g. those with acute kidney injury, the eGFR may not accurately reflect actual GFR. Protein [Mass/Vol] 6.6 g/dL 6.3 - 8.0 g/dL [facility] LACTATE DEHYDROGENASEOrdered By: Caitlin [place] on 01-05-2024 LDH [Catalytic activity/Vol] 188 U/L 135 - 225 U/L [facility] Comment on above: Hemolysis present. T he origin of the hemolysis, in vitro versus an in vivo hemolytic process, cannot be distinguished via this assay alone. In vitro hemolysis may lead to non-physiological (spurious) elevation in lactate dehydrogenase (LDH) results. The result should be interpreted in context of the clinical setting and other test results. Suggest reorder as clinically indicated. Laboratory - Chemistry and C hemistry - challengeon 01-05-2024 Albumin [Mass/Vol] 3.9 g/dL 3.9 - 4.9 g/dL [facility] ALP [Catalytic activity/Vol] 107 U/L 38 - 113 U/L [facility] ALT [Catalytic activity/Vol] 59 U/L High 10 - 54 U/L [facility] Anion gap [Moles/Vol] 8 mmol/L 8 - 15 mmol/L [facility] Calcium [Mass/Vol] 9.2 mg/dL 8.5 - 10. 2 mg/dL [facility] Chloride [Moles/Vol] 103 mmol/L 98 - 10 7 mmol/L [facility] CO2 [Moles/Vol] 22 mmol/L 22 - 30 mmol/L [facility] Creatinine [Mass/Vol] 1.16 mg/dL 0.73 - 1.22 mg/dL [facility] Glucose [Mass/Vol] 355 mg/dL High 74 - 99 mg/dL [facility] Comment on above: The [place] Di[employer] (ADA) provides guidance for cutoff values for fasting glucose and random glucose. The ADA defines fasting as no caloric intake for at least 8 hours. Fasting plasma glucose results between 100 to 125 mg/dL indicate increased risk for diabetes (prediabetes). Fasting plasma glucose results greater than or equal to 126 mg/dL meet the criteria for diagnosis of diabetes. In the absence of unequivocal hyperglycemia, results should be confirmed by repeat testing. In a patient with classic symptoms of hyperglycemia or hyperglycemic crisis, random plasma glucose results greater than or equal to 200 mg/dL meet the criteria for diagnosis of diabetes. Reference: Standards of Medical Care in Diabetes 2016, [place] [employer]. Diabetes Care. 2016.39(Suppl 1). Potassium [Moles/Vol] 3.9 mmol/L 3.7 - 5.1 mmol/L [facility] Sodium [Moles/Vol] 133 mmol/L Low 136 - 144 mmol/L [facility] Urea nitrogen [Mass/Vol] 29 mg/dL High 9 - 24 mg/dL [facility] No Panel Informationon 01-04 [facility] Interpretation and review of laboratory results Normal [facility] Specimen Type: BLOOD SPECIMEN Ordering Facility: [facility] Address: [address] [place] [address] Original Ordering Provider: VIMAL CASILLAS Interpretation and review of laboratory results Abnormal [facility] PHOSPHORUS INORGANICon 01-04 Phosphate [Mass/Vol] 3.6 mg/dL 2.7 - 4 .8 mg/dL [facility] URIC ACIDon 01-05-2024 Urate [Mass/Vol] 5.9 mg/dL 4.0 - 8.1 mg/dL [facility] Urate [Mass/Vol]on Interpretation and review of laboratory results Normal [facility] CBC W Auto Differential pane l (Bld)on 01-03-2024 Basophils (Bld) [#/Vol] [facility] Differential cell count method Nom (Bld) Auto [facility] Eosinophils (Bld) [#/Vol] [facility] Immature granulocytes (Bld) [#/Vol] [facility] Immature granulocytes/100 WBC (Bld) 0.0 % [facility] Lymphocytes (Bld) [#/Vol] 1.48 10*3/uL [facility] Monocytes (Bld) [#/Vol] 0.24 10*3/uL [facility] Neutrophils (Bld) [#/Vol] 0.90 10*3/uL Low [facility] Nucleated RBC (Bld) [#/Vol] [facility] Nucleated RBC/100 WBC (Bld) [Ratio] 0.0 % /100 WBC [facility] Platelet mean volume (Bld) [Entitic vol] 10.8 fL 9.0 - 12.7 fL [facility] Platelets (Bld) [#/Vol] 121 10*3/uL Low [facility] WBC (Bld) [#/Vol] 2.65 10*3/uL [facility] CBC W AUTO DIFF BLDon [facility] BASOPHILS # BLD AUTO <0.03 [facility] [facility] DIFFERENTIAL METHOD BLD Auto [facility] EOSINOPHIL # BLD AUTO <0.03 [facility] LYMPHOCYTES # BLD AUTO 1.48 [facility] MONOCYTES # BLD AUTO 0.24 [facility] NEUTROPHILS # BLD AUTO 0.90 [facility] NRBC # BLD AUTO <0.01 [facility] NRBC/100 WBC BLD-RTO 0.0 /100 WBC [facility] PLATELET # BLD AUTO 121 Low [facility] PMV BLD AUTO 10.8 fL 9.0 - 12.7 fL [facility] WBC # BLD AUTO 2.65 [facility] IMM GRANULOCYTES # BLD AUTO <0.03 [facility] IMM GRANULOCYTES/LEUK NFR BLD AUTO 0.0 % [facility] Specimen Type: BLOOD SPECIMEN Ordering Facility: [facility] Address: [address] [place] [address] Original Ordering Provider: VIMAL CRANDALL CLINISYMN Comprehensive metabolic 2000 panelon 01-03-2024 Albumin [Mass/Vol] 3.6 g/dL Low 3.9 - 4.9 g/dL [facility] ALP [Catalytic activity/Vol] 83 U/L 38 - 113 U[facility] ALT [Catalytic activity/Vol] 50 U/L 10 - 54 U/L [facility] Anion gap [Moles/Vol] 6 mmol/L Low 8 - 15 mmol/L [facility] AST [Catalytic activity/Vol] 49 U/L High 14 - 40 U/L [facility] Bilirubin [Mass/Vol] 0.5 mg/dL 0.2 - 1 .3 mg/dL [facility] Calcium [Mass/Vol] 8.7 mg/dL 8.5 - 10. 2 mg/dL [facility] Chloride [Moles/Vol] 107 mmol/L 98 - 10 7 mmol/L [facility] CO2 [Moles/Vol] 23 mmol/L 22 - 30 mmol/L [facility] Creatinine [Mass/Vol] 1.03 mg/dL 0.73 - 1.22 mg/dL [facility] GFR/1.73 sq M.predicted among non-blacks MDRD (S/P/Bld) [Vol rate/Area] 78 mL/min/{1.73_m2} - PINF [facility] Comment on above: Estimated Glomerular Filtration Rate (eGFR) is calculated using the 2020 CKD-EPI creatinine equation. This equation utilizes serum creatinine, sex, and age as parameters. The creatinine assay has traceable calibration to isotope dilution-mass spectrometry. Refer to KDIGO guidelines for clinical interpretation. In patients with unstable renal function, e.g. those with acute kidney injury, the eGFR may not accurately reflect actual GFR. Glucose [Mass/Vol] 232 mg/dL High 74 - 99 mg/dL [facility] Comment on above: The [place] Diab[employer] s Association (ADA) provides guidance for cutoff values for fasting glucose and random glucose. The ADA defines fasting as no caloric intake for at least 8 hours. Fasting plasma glucose results between 100 to 125 mg/dL indicate increased risk for diabetes (prediabetes). Fasting plasma glucose results greater than or equal to 126 mg/dL meet the criteria for diagnosis of diabetes. In the absence of unequivocal hyperglycemia, results should be confirmed by repeat testing. In a patient with classic symptoms of hyperglycemia or hyperglycemic crisis, random plasma glucose results greater than or equal to 200 mg/dL meet the criteria for diagnosis of diabetes. Reference: Standards of Medical Care in Diabetes 2016, [place] [employer]. Diabetes Care. 2016.39(Suppl 1). Interpretation and review of laboratory results Abnormal [facility] Potassium [Moles/Vol] 3.8 mmol/L 3.7 - 5.1 mmol/L [facility] Protein [Mass/Vol] 6.1 g/dL Low 6.3 - 8.0 g/dL [facility] Sodium [Moles/Vol] 136 mmol/L 136 - 144 mmol/L [facility] Urea nitrogen [Mass/Vol] 23 mg/dL 9 - 24 mg/dL [facility] LACTATE DEHYDROGENASEOrdered By: Ronal Garcia on 01-03-2024 LDH [Catalytic activity/Vol] 165 U/L 135 - 225 U/L [facility] Comment on above: Hemolysis present. T he origin of the hemolysis, in vitro versus an in vivo hemolytic process, cannot be distinguished via this assay alone. In vitro hemolysis may lead to non-physiological (spurious) elevation in lactate dehydrogenase (LDH) results. The result should be interpreted in context of the clinical setting and other test results. Suggest reorder as clinically indicated. Laboratory - Hematology and Cell countson 01-03-2024 Basophils/100 WBC (Bld) 0.4 % [facility] Eosinophils/100 WBC (Bld) 0.8 % [facility] Erythrocyte distribution width (RBC) [Ratio] 14.7 % 11.5 - 15.0 % [facility] Hematocrit (Bld) [Volume fraction] 32.9 % Low 39.0 - 51.0 % [facility] Hemoglobin (Bld) [Mass/Vol] 11.5 g/dL Low 13.0 - 17.0 g/dL [facility] Lymphocytes/100 WBC (Bld) 55.8 % [facility] MCH (RBC) [Entitic mass] 33.9 pg 26.0 - 34.0 pg [facility] MCHC (RBC) [Mass/Vol] 35.0 g/dL 30.5 - 36.0 g/dL [facility] MCV (RBC) [Entitic vol] 97.1 fL 80.0 - 100.0 fL [facility] Monocytes/100 WBC (Bld) 9.1 % [facility] Neutrophils/100 WBC (Bld) 33.9 % [facility] RBC (Bld) [#/Vol] 3.39 10*6/uL Low 4.20 - 6.0 0 m/uL [facility] MR Liver WO and W contrast I Von 01-03-2024 IMPRESSION: 1. Cirrhotic liver morphology. A spontaneous splenorenal shunt is present and mild splenomegaly up to 14.2 cm are noted, compatible with portal hypertension. The portal veins are patent. There is no abdominal ascites. 2. Table postsurgical changes from right posterior hepatectomy. No suspicious appearing liver mass identified. A 7 mm T2 hyperintense focus at the dome of the right hepatic lobe is unchanged from September 2022 and favored to represent a hemangioma. 3. Stable-appearing Bosniak type I and type II cysts in both kidneys. 4. Colonic diverticulosis. Surface Room Shop Optician: LILIBETH Transcribe Date/Time: Jan 03 2024 9:18A Dictated by : NICHOLAS DYE MD This examination was interpreted and the report reviewed and electronically signed by: NICHOLAS DYE MD on Jan 03 2024 9:37AM [facility] DIVISION OF RADIOLOGY * * *Final Report* * * DATE OF EXAM: Jan 02 2024 12:18PM [facility] 2175 - MRI LIVER (EOVIST) WO/W IVCON / PROCEDURE REASON: multiple diagnoses * * * * Physician Interpretation * * * * MRI LIVER (EOVIST) WO/W IVCON COMPARISON: Previous MRI liver dated 09/19/2023, 05/24/2023 and 10/01/2022. CT liver dated 02/10/2023. CLINICAL HISTORY: Hepatocellular carcinoma. Multiple myeloma not having achieved remission. TECHNIQUE: 1.5 T MRI LIVER (EOVIST) WO/W IVCON was performed. 10 mL of Eovist was administered. FINDINGS: Liver: Cirrhotic liver morphology manifested by a nodular surface contour, relative medial segment atrophy, as well as relative lateral segment and caudate lobe hypertrophy. Superimposed findings of moderate hepatic steatosis are again present as well. There are stable postsurgical changes from right posterior hepatectomy, with no abnormal enhancement seen along the resection margin to suggest recurrent neoplasm. A 7 mm T2 hyperintense focus in the right hepatic lobe near the liver dome on series 8 image 12 is unchanged in size dating back to the MRI performed in September 2022. This appears isointense to background liver on arterial and venous phase postcontrast imaging, it is mildly hyperintense to background liver on delayed phase, similar in signal intensity to residual contrast seen within the portal venous blood pool. Based on appearance and stability this is favored to represent a hemangioma. No new liver lesion is identified. Biliary: No bile duct dilation. Surgically absent gallbladder. Spleen: Mild splenomegaly up to 14.2 cm, unchanged from September 2023. No splenic mass. Pancreas: No mass or duct dilation. Adrenals:No mass. Kidneys: Incidental T2 hyperintense nonenhancing Bosniak type I cysts are noted in both kidneys. A Bosniak type II hemorrhagic cyst is noted at the upper pole of the left kidney, measuring 7 mm on series 9 image 55. A thinly septated Bosniak type II cyst is noted at the upper pole the right kidney, measuring 1.4 cm on series 9 image 52. The kidneys are otherwise unremarkable. GI tract: No dilation or wall thickening. Colonic diverticulosis. Lymph nodes: No abdominal lymphadenopathy. Mesentery/Peritoneum: No ascites or mass. Retroperitoneum: No mass. Vasculature: - Abdominal aorta: No aneurysm. - Celiac and SMA: Patent. Conventional hepatic arterial anatomy. - Portal venous system (SMV, splenic vein, portal vein and branches): Patent. A small spontaneous splenorenal shunt is noted. - Hepatic veins: Patent. Bones/Soft Tissues: Bone marrow signal is within normal limits. Lower thorax: Unremarkable. DIVISION OF RADIOLOGY Provider, [facility] - 01/03/2024 * * *Final Report* * * DATE OF EXAM: Jan 02 2024 12:18PM [facility] 2175 - MRI LIVER (EOVIST) WO/W IVCON / PROCEDURE REASON: multiple diagnoses * * * * Physician Interpretation * * * * MRI LIVER (EOVIST) WO/W IVCON COMPARISON: Previous MRI liver dated 09/19/2023, 05/24/2023 and 10/01/2022. CT liver dated 02/10/2023. CLINICAL HISTORY: Hepatocellular carcinoma. Multiple myeloma not having achieved remission. TECHNIQUE: 1.5 T MRI LIVER (EOVIST) WO/W IVCON was performed. 10 mL of Eovist was administered. FINDINGS: Liver: Cirrhotic liver morphology manifested by a nodular surface contour, relative medial segment atrophy, as well as relative lateral segment and caudate lobe hypertrophy. Superimposed findings of moderate hepatic steatosis are again present as well. There are stable postsurgical changes from right posterior hepatectomy, with no abnormal enhancement seen along the resection margin to suggest recurrent neoplasm. A 7 mm T2 hyperintense focus in the right hepatic lobe near the liver dome on series 8 image 12 is unchanged in size dating back to the MRI performed in September 2022. This appears isointense to background liver on arterial and venous phase postcontrast imaging, it is mildly hyperintense to background liver on delayed phase, similar in signal intensity to residual contrast seen within the portal venous blood pool. Based on appearance and stability this is favored to represent a hemangioma. No new liver lesion is identified. Biliary: No bile duct dilation. Surgically absent gallbladder. Spleen: Mild splenomegaly up to 14.2 cm, unchanged from September 2023. No splenic mass. Pancreas: No mass or duct dilation. Adrenals:No mass. Kidneys: Incidental T2 hyperintense nonenhancing Bosniak type I cysts are noted in both kidneys. A Bosniak type II hemorrhagic cyst is noted at the upper pole of the left kidney, measuring 7 mm on series 9 image 55. A thinly septated Bosniak type II cyst is noted at the upper pole the right kidney, measuring 1.4 cm on series 9 image 52. The kidneys are otherwise unremarkable. GI tract: No dilation or wall thickening. Colonic diverticulosis. Lymph nodes: No abdominal lymphadenopathy. Mesentery/Peritoneum: No ascites or mass. Retroperitoneum: No mass. Vasculature: - Abdominal aorta: No aneurysm. - Celiac and SMA: Patent. Conventional hepatic arterial anatomy. - Portal venous system (SMV, splenic vein, portal vein and branches): Patent. A small spontaneous splenorenal shunt is noted. - Hepatic veins: Patent. Bones/Soft Tissues: Bone marrow signal is within normal limits. Lower thorax: Unremarkable. IMPRESSION IMPRESSION: 1. Cirrhotic liver morphology. A spontaneous splenorenal shunt is present and mild splenomegaly up to 14.2 cm are noted, compatible with portal hypertension. The portal veins are patent. There is no abdominal ascites. 2. Table postsurgical changes from right posterior hepatectomy. No suspicious appearing liver mass identified. A 7 mm T2 hyperintense focus at the dome of the right hepatic lobe is unchanged from September 2022 and favored to represent a hemangioma. 3. Stable-appearing Bosniak type I and type II cysts in both kidneys. 4. Colonic diverticulosis. Surface Room Shop Optician: LILIBETH Transcribe Date/Time: Jan 03 2024 9:18A Dictated by : NICHOLAS DYE MD This examination was interpreted and the report reviewed and electronically signed by: NICHOLAS DYE MD on Jan 03 2024 9:37AM EST [facility] MR Liver WO and W contrast I VOrdered By: [facility] Provider on 01-03-2024 [facility] No Panel InformationOrdered By: Ronal Garcia on 01-03-2024 Interpretation and review of laboratory results Normal [facility] No Panel Informationon 01-02 Interpretation and review of laboratory results Abnormal [facility] PHOSPHORUS INORGANICon 01-02 Phosphate [Mass/Vol] 3.1 mg/dL 2.7 - 4 .8 mg/dL [facility] URIC ACIDon 01-03-2024 Urate [Mass/Vol] 4.8 mg/dL 4.0 - 8.1 mg/dL [facility] Urate [Mass/Vol]on Interpretation and review of laboratory results Normal [facility] XR Knee - left 3 [facility] Result: January 02 x-rays AP weight-bearing bilateral knees lateral and sunrise of the left knee demonstrate neutral alignment bilateral knees slight narrowing of the medial compartment. No fractures identified. The patella is centered in the femoral trochlea. Impression: Mild arthritic changes left knee Jenaro Lorenzana D.O. [facility] Radiology Study observation (narrative) [facility] MR Liver WO and W contrast I Von 01-02-2024 Radiology Study observation (narrative) [facility] XR CHEST 2 VIEWSon 4 XR CHEST 2 VIEWS FINDINGS: No acute cardiac or pulmonary disease is identified. No worrisome mass lesions or infiltrates are seen. No pulmonary edema or pneumothorax is present. Cardiac silhouette size is normal. Skeletal structures are normal. IMPRESSION: No acute cardiac or pulmonary disease TRANSCRIBED BY: ELECTRONICALLY SIGNED BY: Johan Morris MD Normal Not Available BONE MARROW ANALYSISon 10-05 ADDENDUM 1: Normal [facility] Comment on above: Order Comment: Casie early Type: BONE MARROW SPECIMEN Ordering Facility: [facility] Address: [address] [place] [address] Result Comment: Spiral Machine Operator mosome analysis shows a normal male karyotype: 46,XY[20]. FISH for plasma cell neoplasm shows a normal signal pattern for the probes tested. There is no change in previously rendered final diagnosis. Addendum electronically signed by Ofelia Patel DO on 10/19/2023 at 9:48 PM Performed By: #### B MRT #### [facility] CLIA [id number] [address] [place] [address] STATES OF [place] CASE REPORT Normal [facility] Comment on above: Order Comment: Casie early Type: BONE MARROW SPECIMEN Ordering Facility: [facility] Address: [address] [place] [address] Result Comment: Bone Marrow Pathology Report Case: [id number] Authorizing Provider: Vimal Crandall MD Collected: 10/06/2023 10:50 AM Ordering Location: [facility] Received: 10/06/2023 01:13 PM RADIOLOGY Pathologist: Ofelia Patel DO Specimens: A) - Bone Marrow, Aspirate, Left, Posterior, Iliac Crest B) - Bone Marrow, Biopsy, Left, Posterior, Iliac Crest C) - Bone Marrow, Clot, Left, Posterior, Iliac Crest D) - Blood Performed By: #### B MRT #### [facility] CLIA [id number] [address] [place] [address] OF [place]THE[place] FINAL DIAGNOSIS Normal [facility] Comment on above: Order Comment: Casie early Type: BONE MARROW SPECIMEN Ordering Facility: [facility] Address: [address] [place] [address] Result Comment: A-C. Bone marrow, aspirate smears, core biopsy, and clot section: - Plasma cell neoplasm, lambda monotypic (5-9% of total marrow cellularity). - Cellular bone marrow (40%) with trilineage hematopoiesis. - Stainable iron present. - See comment. D. Peripheral blood smear: - Absolute neutropenia. - Normocytic anemia. - Thrombocytopenia. KAB 10/07/2023 Performed By: #### B MRT #### [facility] CLIA [id number] [address] [place] [address] STATES OF [place] GROSS DESCRIPTION Normal [facility] Comment on above: Order Comment: Speci men Type: BONE MARROW SPECIMEN Ordering Facility: [facility] Address: [address] [place] [address] Result Comment: A. B one Marrow, Aspirate, Left, Posterior, Iliac Crest Received are air-dried bone marrow aspirate smears. Submitted for light microscopy. B. Bone Marrow, Biopsy, Left, Posterior, Iliac Crest Received in formalin is one segment of cylindrical tissue measuring 1.6 x 0.3 x 0.3 cm, herman to red-brown and of a firm consistency. Totally submitted in formalin in one cassette after decalcification. C. Bone Marrow, Clot, Left, Posterior, Iliac Crest Received in formalin is a segment of red-brown hemorrhagic material measuring 1.4 x 1.2 x 0.4 cm. Totally submitted in one cassette. D. Blood Received is a peripheral blood smear. Submitted for light microscopy. Gross examination performed at [facility], [address] [place] [address] 10/06/2023 6:56 PM Performed By: #### B MRT #### [facility] CLIA [id number] [address] [place] [address] STATES [place] MICROSCOPIC DESCRIPTION Normal [facility] Comment on above: Order Comment: Speci men Type: BONE MARROW SPECIMEN Ordering Facility: [facility] Address: [address] [place] [address] Result Comment: ANASTASIA PHERAL BLOOD: CBC (10/06/2023 9:58 AM) Differential (Automated) WBC 3.84 k/uL Neutrophils % 36.1 Hemoglobin 12.7 g/dL Lymphocytes % 51.6 MCV 97.9 fL Monocytes % 10.2 RDW-CV 14.2 % Eosinophils % 1.3 Platelet Count 137 k/uL Basophils % 0.5 Immature Granulocytes % 0.3 Morphology/Interpretation: Absolute neutropenia without leukopenia. Normocytic anemia with few ovalocytes, rare teardrop cells, and slight polychromasia. Thrombocytopenia. BONE MARROW ASPIRATE: Result Normal Range 1 % Blasts 0-2 0 % Promyelocytes 1-5 49 % Myelos/Metas/Bands/Segs 32-72 2 % Eosinophils 1-6 0 % Basophils 0-1 1 % Monocytes 0-4 30 % Erythroid precursors 13-37 13 % Lymphocytes 7-23 4 % Plasma cells 0-2 Myeloid/Erythro (1.5-4): 1.8 Cells counted: 300 Iron stain result: Stainable iron present. Ring sideroblasts absent. Specimen Quality: Excellent (cellular with abundant spicules). Megakaryocytes: Present, variable size and nuclear lobation including some hypolobated forms. Erythropoiesis: Progressive maturation. Rare (<2%) nuclear membrane irregularities. Granulopoiesis: Progressive maturation. Other: Increased plasma cells, a subset of which show enlarged nuclei and variably prominent nucleoli. BONE MARROW BIOPSY: Adequacy: Adequate despite some fragmentation as well as some crush and aspiration artifact. Cellularity: Variably cellular (~40%, estimation limited by aspiration artifact). ME ratio: Normal. Hematopoiesis: Trilineage maturation. Megakaryocytes: Adequate. Megakaryocyte morphology: Normal and abnormal, including subset of small hypolobated forms and rare separate nuclei. Lymphoid infiltrate: Not identified. Bone trabeculae: Unremarkable. Other: There is a cluster of glandular structures with bland appearing nuclei and slightly foamy cytoplasm within the crushed area of the core biopsy, morphologically favor displaced skin adnexal elements. Immunohistochemical stains are performed on the bone marrow core biopsy. CD138 highlights plasma cells (~5-9% of total marrow cellularity), which appear lambda predominant with kappa and lambda immunoglobulin light chains by IHC. Arginase stain is negative. CK AE1/AE3 highlights the bland glandular structures which are negative for PAX8 and NKX3.1. CLOT SECTION: Marrow particles: Many. Morphology: Similar to biopsy. ANCILLARY TESTS: Flow cytometry: Performed ([id number]). Cytogenetics: Pending. FISH: Pending FISH for plasma cell myeloma. Molecular: Buffy coat stored. Laboratory Developed Test (LDT) Disclaimer: Performance characteristics of immunohistochemical, immunofluorescent and chromogenic in-situ hybridization tests have been determined by the performing laboratory within [facility]???s [facility] ([facility], [facility], [facility], [facility], [facility], [facility], or [facility]) in a manner consistent with CLIA requirements. One or more of these tests have not been cleared or approved by the FDA. [facility] is regulated under CLIA as qualified to perform high-complexity testing. These tests are used for clinical purposes. They should not be regarded as investigational or for research. Positive and negative controls stain appropriately. Note: Immunohistochemical stains were performed in addition to flow cytometry in this case to further characterize the hematolymphoid elements in the context of cell morphology and tissue architecture. Discrepancies between flow cytometric results and morphology can occur due to sampling differences, preferential loss of specific cell populations, or hemodilution. Performed By: #### B MRT #### [facility] CLIA [id number] [address] [place] [address] STATES OF [facility] BONE MARROW CHROMOSOME ANALo n 10-06-2023 CHROMOSOME BM Normal [facility] Comment on above: Order Comment: Speci men Type: BONE MARROW SPECIMENOrdering Facility: [facility] Address: [address] [place] [address] Result Comment: Merle leonard Accession Number: [id number] Doctor: Vimal Crandall Pathologist: [facility] No: [id number] Clinical diagnosis: Multiple Myeloma Specimen Type: Bone Marrow Received Date: 10/06/2023 Number of cells counted: 20 Number of cells analyzed: 20 Number of cells karyotyped: 20 Banding resolution: 400 Banding method: G-banding DIAGNOSIS: 46,XY[20] INTERPRETATION: Normal, male karyotype COMMENT: Ten metaphase cells were analyzed from the culture stimulated with ODN and ten metaphase cells were analyzed from the 24 hour unstimulated culture. Twenty cells analyzed showed a 46,XY karyotype or had non-clonal (single cell) structural changes, attributed to culture artifact. There was no significant numerical chromosome abnormality and no structural change detected within the limits of resolution. The analyses in August 2020 and December 2019 also showed normal karyotypes. Clinical and pathologic correlation is recommended. As reviewed by Rip Merida, PhD, FACMG Performed by [facility] Molecular Pathology and Cytogenomics ([id number]), Division of Laboratory Medicine [facility] Department of Pathology & Laboratory Medicine, [facility] Post [address] [facility] [place] [address] Toll free: Performed By: #### [facility] ####[facility] LIM[facility]CLIA [id number] [place] [address] [place] BRIEF OP NOTon 10-06-2023 BRIEF OP NOT HNO ID: [id number] Author: STEFANI YAO MD Service: Radiology Author Type: Physician Type: Brief Op Note Filed: 10/06/2023 11:10 Note Text: RADIOLOGY BRIEF PROCEDURE NOTE Procedure Date: October 06, 2023 Incision/Procedure Start Time: 1051 Incision Close/Procedure End Time: 1103 SURGEON(S)/PROCEDURALI ST(S) AND MOBILE HOME PARK MANAGER(S): Stefani Yao MD PROCEDURE: CT guided bone marrow biopsy FINDINGS: Successful CT guided bone marrow biopsy performed in the left iliac bone. Marrow aspirate and 11-g bone sample obtained. ESTIMATED BLOOD LOSS: < 5 mls SPECIMENS: Marrow aspirate and 11-g bone sample. COMPLICATIONS: None PRE-PROCEDURE DIAGNOSIS: Multiple myeloma POST-PROCEDURE DIAGNOSIS: Multiple myeloma FULL REPORT AND DICTATION TO FOLLOW UNDER IMAGING TAB SIGNATURE: Stefani Yao MD PATIENT NAME: Jon Bauer DATE: October 06, 2023 TIME: 11:08 AM CONTACT: [phone] Normal [facility] CBC W Auto Differential pane l (Bld)on 10-06-2023 Basophils (Bld) [#/Vol] 10*3/uL Normal <0.11 F [facility] Comment on above: Order Comment: Speci men Type: BLOOD SPECIMEN Ordering Facility: [facility] Address: [address] [place] [address] Performed By: #### 5 7021-8 #### [facility] CLIA [id number] [address] [place] [address] [place] Basophils/100 WBC (Bld) 0.5 % Normal F [facility] Comment on above: Order Comment: Speci men Type: BLOOD SPECIMEN Ordering Facility: [facility] Address: [address] [place] [address] Performed By: #### 5 7021-8 #### [facility] CLIA [id number] [address] [place] [address] [place] Differential cell count method Nom (Bld) Auto Normal [facility] Comment on above: Order Comment: Speci men Type: BLOOD SPECIMEN Ordering Facility: [facility] Address: [address] [place] [address] Performed By: #### 5 7021-8 #### [facility] CLIA [id number] [address] [place] [address] [place] Eosinophils (Bld) [#/Vol] 0.05 10*3/uL Normal <0.[address] [facility] Comment on above: Order Comment: Speci men Type: BLOOD SPECIMEN Ordering Facility: [facility] Address: [address] [place] [address] Performed By: #### 5 7021-8 #### [facility] CLIA [id number] [address] [place] [address] [place] Eosinophils/100 WBC (Bld) 1.3 % Normal [facility] Comment on above: Order Comment: Speci men Type: BLOOD SPECIMEN Ordering Facility: [facility] Address: [address] [place] [address] Performed By: #### 5 7021-8 #### [facility] CLIA [id number] [address] [place] [address] [place] Erythrocyte distribution width (RBC) [Ratio] 14.2 % Normal 11.5-15.[address] [facility] Comment on above: Order Comment: Speci men Type: BLOOD SPECIMEN Ordering Facility: [facility] Address: [address] [place] [address] Performed By: #### 5 7021-8 #### [facility] CLIA [id number] [address] [place] [address] [place] Hematocrit (Bld) [Volume fraction] 36.8 % Low 39.0-51.[address] [facility] Comment on above: Order Comment: Speci men Type: BLOOD SPECIMEN Ordering Facility: [facility] Address: [address] [place] [address] Performed By: #### 5 7021-8 #### [facility] CLIA [id number] [address] [place] [address] [place] Hemoglobin (Bld) [Mass/Vol] 12.7 g/dL Low 13.0-17.[address] [facility] Comment on above: Order Comment: Speci men Type: BLOOD SPECIMEN Ordering Facility: [facility] Address: [address] [place] [address] Performed By: #### 5 7021-8 #### [facility] CLIA [id number] [address] [place] [address] [place] Immature granulocytes (Bld) [#/Vol] 10*3/uL Normal <0.[address] [facility] Comment on above: Order Comment: Speci men Type: BLOOD SPECIMEN Ordering Facility: [facility] Address: [address] [place] [address] Performed By: #### 5 7021-8 #### [facility] CLIA [id number] [address] [place] [address] [place] Immature granulocytes/100 WBC (Bld) 0.3 % Normal [facility] Comment on above: Order Comment: Speci men Type: BLOOD SPECIMEN Ordering Facility: [facility] Address: [address] [place] [address] Performed By: #### 5 7021-8 #### [facility] CLIA [id number] [address] [place] [address] [place] Lymphocytes (Bld) [#/Vol] 1.98 10*3/uL Normal 1.00-4.[address] [facility] Comment on above: Order Comment: Speci men Type: BLOOD SPECIMEN Ordering Facility: [facility] Address: [address] [place] [address] Performed By: #### 5 7021-8 #### [facility] CLIA [id number] [address] [place] [address] [place] Lymphocytes/100 WBC (Bld) 51.6 % Normal [facility] Comment on above: Order Comment: Speci men Type: BLOOD SPECIMEN Ordering Facility: [facility] Address: [address] [place] [address] Performed By: #### 5 7021-8 #### [facility] CLIA [id number] [address] [place] [address] STATES [facility] MCH (RBC) [Entitic mass] 33.8 pg Normal 26.0-34.[address] [facility] Comment on above: Order Comment: Speci men Type: BLOOD SPECIMEN Ordering Facility: [facility] Address: [address] [place] [address] Performed By: #### 5 7021-8 #### [facility] CLIA [id number] [address] [place] [address] [place] MCHC (RBC) [Mass/Vol] 34.5 g/dL Normal 30.5-36.0 [facility] Comment on above: Order Comment: Speci men Type: BLOOD SPECIMEN Ordering Facility: [facility] Address: [address] [place] [address] Performed By: #### 5 7021-8 #### [facility] CLIA [id number] [address] [place] [address] [place] MCV (RBC) [Entitic vol] 97.9 fL Normal 80.0-100.0 [facility] Comment on above: Order Comment: Speci men Type: BLOOD SPECIMEN Ordering Facility: [facility] Address: [address] [place] [address] Performed By: #### 5 7021-8 #### [facility] CLIA [id number] [address] [place] [address] OF [place] Monocytes (Bld) [#/Vol] 0.39 10*3/uL Normal <0.[address] [facility] Comment on above: Order Comment: Speci men Type: BLOOD SPECIMEN Ordering Facility: [facility] Address: [address] [place] [address] Performed By: #### 5 7021-8 #### [facility] CLIA [id number] [address] [place] [address] OF [place] Monocytes/100 WBC (Bld) 10.2 % Normal [facility] Comment on above: Order Comment: Speci men Type: BLOOD SPECIMEN Ordering Facility: [facility] Address: [address] [place] [address] Performed By: #### 5 7021-8 #### [facility] CLIA [id number] [address] [place] [address] [place] Neutrophils (Bld) [#/Vol] 1.39 10*3/uL Low 1.45-7.[address] [facility] Comment on above: Order Comment: Speci men Type: BLOOD SPECIMEN Ordering Facility: [facility] Address: [address] [place] [address] Performed By: #### 5 7021-8 #### [facility] CLIA [id number] [address] [place] [address] [place] Neutrophils/100 WBC (Bld) 36.1 % Normal [facility] Comment on above: Order Comment: Speci men Type: BLOOD SPECIMEN Ordering Facility: [facility] Address: [address] [place] [address] Performed By: #### 5 7021-8 #### [facility] CLIA [id number] [address] [place] [address] [place] Nucleated RBC (Bld) [#/Vol] 10*3/uL Normal <0.[address] [facility] Comment on above: Order Comment: Speci men Type: BLOOD SPECIMEN Ordering Facility: [facility] Address: [address] [place] [address] Performed By: #### 5 7021-8 #### [facility] CLIA [id number] [address] [place] [address] [place] Nucleated RBC/100 WBC (Bld) [Ratio] 0.0 /100 WBC Normal [facility] Comment on above: Order Comment: Speci men Type: BLOOD SPECIMEN Ordering Facility: [facility] Address: [address] [place] [address] Performed By: #### 5 7021-8 #### [facility] CLIA [id number] [address] [place] [address] [place] Platelet mean volume (Bld) [Entitic vol] 9.5 fL Normal 9.0-12.[address] [facility] Comment on above: Order Comment: Speci men Type: BLOOD SPECIMEN Ordering Facility: [facility] Address: [address] [place] [address] Performed By: #### 5 7021-8 #### [facility] CLIA [id number] [place] [address] [place] Platelets (Bld) [#/Vol] 137 10*3/uL Low 150-[address] [facility] Comment on above: Order Comment: Speci men Type: BLOOD SPECIMEN Ordering Facility: [facility] Address: [address] [place] [address] Performed By: #### 5 7021-8 #### [facility] CLIA [id number] [address] [place] [address] [place] RBC (Bld) [#/Vol] 3.76 10*6/uL Low 4.20-6.00 [facility] Comment on above: Order Comment: Speci men Type: BLOOD SPECIMEN Ordering Facility: [facility] Address: [address] [place] [address] Performed By: #### 5 7021-8 #### [facility] CLIA [id number] [address] [place] [address] [place] WBC (Bld) [#/Vol] 3.84 10*3/uL Normal 3.70-11.00 [facility] Comment on above: Order Comment: Yvonnei men Type: BLOOD SPECIMEN Ordering Facility: [facility] Address: [address] [place] [address] Performed By: #### 5 7021-8 #### [facility] CLIA [id number] [address] [place] [address] [place] [address] BIOPSY BONE MARROW (HEMO) on 10-06-2023 CT BIOPSY BONE MARROW (HEMO) * * *Final Report* * * DATE OF EXAM: Oct 06 2023 11:09AM [facility] 8 - CT BIOPSY BONE MARROW (HEMO) / PROCEDURE REASON: BONE MARROW * * * * Physician Interpretation * * * * CT-GUIDED BONE MARROW BIOPSY INDICATION: The patient is a 73 years old Male who presented with multiple myeloma. CONSENT: The risks, benefits, treatment options, potential complications and personnel to be involved were discussed (including the risks of radiation exposure, contrast and anesthesia administration) with the All questions were answered and consent was obtained from the patient. The patient indicated willingness to proceed. GENERAL: a) Medication Reconciliation: The patient's medications and allergies were reviewed in the electronic medical record and reconciled to the proposed procedure/treatment. Pre-procedure Sign-in: Safety Checklist Performed Yes b) Positioning: The patient was placed prone on the table. c) The lower back was then sterilely prepped and draped. d) Time Out: A time out was performed immediately prior to procedure start with the nursing, anesthesia and interventional team, correctly identifying the patient name, date of , procedure, anatomy (including marking of site and side), patient position, procedure consent form, relevant diagnostic and radiology test results, antibiotic administration, safety precautions, and procedure-specific equipment needs. Time Out / Procedure Start Time: 1051 e) Anesthesia Type: moderate procedural sedation. Local anesthesia: 10 mL 1% lidocaine. f) Anesthesia was administered for a total of 12 minutes using 1.5 mg IV Versed and 75 mcg IV fentanyl. g) Patient monitoring: Performed by registered nurse. PROCEDURE: a) Procedure Details: Under CT guidance, biopsy/aspiration needle was advanced into the posterior aspect of the left iliac bone, through which bone marrow aspiration was performed and a single core biopsy sample was obtained via a single pass. Needle was removed. b) Devices used: Biopsy/Aspiration Needle: 11 Gauge On Control c) Estimated Blood Loss: Minimal d) Number and Type of Removed Specimens: Marrow aspirate and 11-gauge bone sample. CONTRAST CT imaging was performed without contrast. RADIATION DOSE a) Image guidance: CT guidance b) Radiation: CT was performed using an Dose-Length Product (DLP) of 333 mGy*cm CT Dose Reduction Employed: Automated exposure control (AEC) POST PROCEDURE: a) Hemostasis: Hemostasis was achieved using light manual compression. b) Sign-out: Communication Performed Yes c) Procedure End Time: 1103 d) Conclusion: The patient was transferred to the biopsy recovery room in stable condition. COMPLICATIONS: a) Significant Patient Complication: None b) Complications during the procedure: None RESULTS: Aspirate and core bone marrow specimens obtained. Attending Radiologist: Stefani Yao MD Chief Hydroelectric Station Operator: None The procedure was performed by the: attending radiologist, without an assistant plant manager. The attending radiologist performed the following procedural activities: Entire procedure IMPRESSION: SUCCESSFUL CT-GUIDED BONE MARROW BIOPSY. Surface Room Shop Optician: LILIBETH Transcribe Date/Time: Oct 06 2023 2:06P Dictated by : STEFANI YAO MD This examination was interpreted and the report reviewed and electronically signed by: STEFANI YAO MD on Oct 06 2023 2:08PM EST [id number] [facility] DNA EXTRACTION BONE MARROW ( BUFFY COAT)on 10-06-2023 DNA EXTRACTION BONE MARROW (BUFFY COAT) [facility] Comment on above: Order Comment: Casie early Type: BONE MARROW SPECIMEN Ordering Facility: [facility] Address: [address] [place] [address] Result Comment: This specimen was received and successfully processed for future DNA purification should molecular testing be needed. Specimens will be available for 3 years from date of collection. To order testing on this specimen for [facility] patients, please place an [facility] order for DNA and RNA Clinical Testing ([id number]). To order testing for patients outside of the [facility] system, please request DNA and RNA for Clinical Testing, order code [id number]. If additional paperwork is required for testing, please send completed forms via secure email to . Performed By: #### N UCBUF #### [facility] IA [id number] [address] [place] [address] [place] FISH FOR PLASMA CELL MYELOMA on 10-06-2023 FISH FOR PLASMA CELL MYELOMA [facility] Comment on above: Order Comment: Casie early Type: BONE MARROW SPECIMEN Ordering Facility: [facility] Address: [address] [place] [address] Result Comment: FISH for Plasma Cell Myeloma Laboratory Accession Number: [id number] Case: [id number] Sample type: Bone Marrow Aspirate Number of nuclei scored: 85-100 Received Date: 2023-10-06 17:19:02 RESULT: Result 1p32 (CDKN2C): Normal pattern 1q21 (CKS1B): Normal pattern 13q14 (RB1): Normal pattern 17p13 (TP53): Normal pattern INTERPRETATION: The plasma cells analyzed displayed a normal signal pattern with all probes tested. This result does not rule out the possibility of a plasma cell neoplasm. Clinical and pathological correlation is recommended. Please note: Previous FISH analysis with the full panel of plasma cell myeloma probes was performed on this individual. Therefore, only the above probe sets were utilized in the current analysis (PMID: [id number]). REFERENCE RANGE: Reference ranges for the 13q14/17p13, 1p32/1q21: Normal Range = 0-20% if at least 100 cells scored If fewer than 100 cells scored, then report if positive when >19 abnormal nuclei found If <20 plasma cells counted, report as insufficient REFERENCES: 1) Doyle E et al. The International Consensus Classification of Mature Lymphoid Neoplasms: a report from the Clinical Advisory Committee. Blood. 2021 15;140(11):5359-8424 (PMID: 39627869) 2) Raj SK, Loreta SV. The multiple myelomas - current concepts in cytogenetic classification and therapy. Carol Rev Oncol. 2018;15(7):409-421 (PMID: 43024680) 3) Hari DUARTE et al. Management of newly diagnosed symptomatic multiple myeloma: updated Rivas Stratification of Myeloma and Risk- Adapted Therapy (mSMART) consensus guidelines 2013. Rivas Clin Proc 2013 Aug;88(4):360-76 (PMID: 21403998) 4) Princess GIBSON et al. Consensus recommendations for risk stratification in multiple myeloma: report of the International Myeloma Workshop Consensus Panel 2. Blood 2010September 10;117(18):6957-4883 (PMID: 50303685) METHODOLOGY: Bone marrow plasma cells were isolated by CD138 purification ([employer], [employer], [place], [place], [place]). Interphase fluorescence in situ hybridization was performed using probes to the CDKN2C locus on chromosome 1p32 ([employer]), CKS1B locus on chromosome 1q21 ([employer]), 13q14 ([place], [facility], [place]), and the TP53 locus on chromosome 17p13 ([employer]). 100 plasma cells were scored whenever possible. DISCLAIMER: This test was developed and its performance characteristics determined by the [facility]'s [facility] Pathology and Laboratory [facility] ([facility]). It has not been cleared or approved by the FDA. RT-PLMI is regulated under CLIA as qualified to perform high- complexity testing. This test is used for clinical purposes. It should not be regarded as investigational or for research. Interpretation performed at [facility], [address] [place] [address]. CLIA Number: [id number] As reviewed by Kilo Falk MD, PhD Performed By: #### F SHP #### [facility] CLIA [id number] [address] [place] [address] OF [place]THEL FLOW CYTOMETRY FOR LEUKEMIA/ LYMPHOMA (FCLL) PERFORMABLEon 10-06-2023 FLOW CYTOMETRY ORDER STATUS Results will be reported under F case ID when completed [facility] Comment on above: Order Comment: Casie early Type: BONE MARROW SPECIMEN Ordering Facility: [facility] Address: [address] [place] [address] Performed By: #### F CLLRFLX, FCLLP #### [facility] CLIA [id number] [address] [place] [address] FLOW CYTOMETRY FOR LEUKEMIA/ LYMPHOMA (FCLL) REFLEXon 10-06-2023 DIAGNOSIS COMMENT Normal [facility] Comment on above: Order Comment: Casie early Type: BONE MARROW SPECIMEN Ordering Facility: [facility] Address: [address] [place] [address] Result Comment: This assay is not designed to detect minimal residual disease or myeloid antigen maturational patterns. This test was developed and its performance characteristics determined by [facility]'s [facility] Pathology and Laboratory Medicine Post (RT-PL[facility]). It has not been cleared or approved by the FDA. RT-PLMI is regulated under CLIA as qualified to perform high-complexity testing. This test is used for clinical purposes. It should not be regarded as investigational or for research. Performed By: #### F CLLRFLX, FCLLP #### [facility] CLIA [id number] [address] [place] [address] [place] Result Comment: The patient is a 73-year-old male with IgG lambda plasma cell neoplasm, originally diagnosed in 2019, for which she had was received therapy as well as hepatocellular carcinoma, status post resection, presenting for restaging in the setting of increasing M protein concentration. Overall, the findings are diagnostic of recurrent/persistent plasma cell neoplasm, lambda monotypic. There is no immunophenotypic evidence of metastatic hepatocellular carcinoma. Subclassification of plasma cell neoplasms requires correlation with clinical, laboratory, and radiographic findings, as well as the pending cytogenetic and molecular genetic results. Performed By: #### B MRT #### [facility] CLIA [id number] [address] [place] [address] STATES OF [facility] Normal [facility] Comment on above: Order Comment: Yvonnei men Type: BONE MARROW SPECIMEN Ordering Facility: [facility] Address: [address] [place] [address] Result Comment: Diag nostic interpretation performed at [facility], [address] [place] [address] CLIA# [id number] Systems Mgr: Darwin Troncoso M.D. Performed By: #### F CLLRFLX, FCLLP #### [facility] CLIA [id number] [address] [place] [address] STATES [facility] Performed By: #### B MRT #### [facility] CLIA [id number] [address] [place] [address] [place] FLOW CYTOMETRY RESULTS Normal [facility] Comment on above: Order Comment: Casie early Type: BONE MARROW SPECIMEN Ordering Facility: [facility] Address: [address] [place] [address] Result Comment: Spec imen type: Bone marrow aspirate Morphology comments: See bone marrow biopsy report ([id number]) Viability: 98% Results: Flow Cytometry Bone Marrow Immunophenotyping Marker Normal Cell Type Result (Lymphocytes) CD3 T-cells Normal Pattern CD4 T-cell subset Normal Pattern CD5 T-cells Normal Pattern CD7 T/NK-cells Normal Pattern CD8 T-cell subset Normal Pattern CD13 Myeloid Normal Pattern CD16/56 NK cells Normal Pattern CD19 B-cells Normal Pattern CD34 Blasts Normal Pattern CD45 Tee-leukocyte Normal Pattern kappa/lambda B-cells Normal, polytypic Marker Normal Cell Type Result (Abnormal Plasma Cells) CD19 B lymphocyte Negative CD20 B lymphocyte Negative CD27 Plasma cell Positive VS38c Plasma cell Positive CD45 Leukocyte Negative CD56 NK cell Positive CD81 Plasma cell Positive (heterogeneous) CD117 Progenitor cell Positive CD138 Plasma cell Positive CD229 Plasma cell Positive cKappa/cLambda Plasma cell Monotypic Lambda Flow cytometric analysis of the bone marrow aspirate reveals that 23% of total events have the CD45 and light scatter properties of lymphocytes. The lymphocytes are composed of T-cells (71%, CD4:CD8 ratio = 1.33), NK cells (6%), and polytypic B-cells (20%). Granulocytic elements are 47% of events. Blasts are not increased. Plasma cells are 0.30% of total events according to the staining properties. A subset of the plasma cells shows an abnormal immunophenotype: positive for cVS38, CD138, CD229, CD81 (heterogeneous), CD27, CD117, CD56, and monotypic lambda cytoplasmic immunoglobulin light chains and negative for CD19, CD20, and CD45. The remaining plasma cells are polytypic with a normal immunophenotype. Performed By: #### F CLLRFLX, FCLLP #### [facility] CLIA [id number] [address] [place] [address] [place] GROSS DESCRIPTION A. Bone Marrow Normal [facility] Comment on above: Order Comment: Speci men Type: BONE MARROW SPECIMEN Ordering Facility: [facility] Address: [address] [place] [address] Result Comment: Rece ived 3 mls bone marrow in na hep Performed By: #### F CLLRFLX, FCLLP #### [facility] CLIA [id number] [address] [place] [address] [place] INTERPRETATION Normal [facility] Comment on above: Order Comment: Speci men Type: BONE MARROW SPECIMEN Ordering Facility: [facility] Address: [address] [place] [address] Result Comment: Thes e findings are consistent with the presence of a plasma cell neoplasm, lambda monotypic. In the proper clinical context, this plasma cell population may represent a monoclonal gammopathy of undetermined significance (MGUS) or plasma cell myeloma. There is no evidence of involvement by a lymphoproliferative disorder or abnormal blast population. Correlation with the clinical, laboratory, radiologic, and bone marrow histopathologic findings is suggested. KAB 10/07/2023 Performed By: #### F CLLRFLX, FCLLP #### [facility] CLIA [id number] [address] [place] [address] [place] HISTORY PHYSICALon HISTORY PHYSICAL HNO ID: [id number] Author: STEFANI YAO MD Service: Radiology Author Type: Physician Type: H&P Filed: 10/06/2023 10:37 Note Text: RADIOLOGY PROCEDURAL SEDATION HISTORY AND PHYSICAL EXAM SERVICE DATE: 10/06/2023 SERVICE TIME: 10:37 AM Subjective HPI: This is a 73 year old male who presents with multiple myeoma. PROCEDURE SCHEDULED: Procedure(s): DIAGNOSTIC BONE MARROW BIOPSY(IES) (Pending) RADIOLOGY ORDER PLACED: Radiology (1440h ago, onward) Start Ordered 09/15/23 0000 IMAGING GUIDED BIOPSY BONE MARROW (HEMATOLOGY) Routine 09/15/23 1505 PAST ANESTHESIA HISTORY: No history of adverse event PAST MEDICAL HISTORY Diagnosis Date Abdominal aortic aneurysm (HCC) Allergic rhinitis Biceps rupture, proximal 04/09/2014 Bicipital tenosynovitis 11/01/2013 Chronic pain COVID-19 06/11/2020 positive test 06/13/20 Depression 09/18/2020 Continue home dose of lexapro Elevated blood protein elevated MGUS Generalized anxiety disorder Glaucoma Hepatocellular carcinoma (HCC) Hypercholesteremia 09/17/2020 Hold Lipitor inpatient Hyperlipemia Hypertension Leukocytosis MRSA infection Multiple myeloma (HCC) 09/17/2020 6 Cycles RVD (February 2020 through August 2020) in a [place] Multiple myeloma not having achieved remission (HCC) 02/04/2020 Neuropathy 08/20/2020 Continue home Gabapentin Obesity Restless leg syndrome 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 Protocol(s): 3422 1C Preparative regimen: Melphalan Mobilization regimen: plerixafor AND neupogen Stem cell source: apheresis CD34 cell dose (x10e6/kg): 4.05 Date of transplant: 09/19/20 Type 2 diabetes (HCC) 08/20/2020 Takes metformin, Lantus, victoza AND Farxiga Sliding Scale inpatient AND Lantus Plan: -Endo following, recs in dc instructions for home Type II or unspecified type diabetes mellitus without mention of complication, uncontrolled PAST SURGICAL HISTORY Procedure Laterality Date EXTENSIVE FINGER SURGERY Right FOOT/TOES SURGERY PROC UNLISTED Left hammer toes and bunions HEPATECTOMY RESCJ TOTAL RIGHT LOBECTOMY 10/08/2022 lap right hepatectomy for T2Nx HCC LAPAROSCOPIC CHOLECYSTECTOMY 10/08/2022 LIVER BIOPSY PALATOP CL PALATE ATTACHMENT PHARYNGEAL FLAP age 5 PAST SURGICAL HISTORY OF MRSA cyst removed from face PAST SURGICAL HISTORY OF Cyst removed from mouth SHOULDER SURGERY HX Left tendon repair Prior to Admission medications as of 09/15/23 1451 Medication Sig Last Dose Taking REVLIMID 2.5 mg capsule TAKE 1 CAPSULE BY MOUTH 1 TIME A DAY Past Week Yes empagliflozin (JARDIANCE) 10 mg tablet Take 10 mg by mouth daily with breakfast. 10/05/2023 Yes insulin aspart U-100 (NOVOLOG FLEXPEN U-100 INSULIN) 100 unit/mL (3 mL) If Blood Glucose (mg/dL) is <110 Give 0 units 111-150 Give 0 units 151-200 Give 2 unit 201-250 Give 4 units 251-300 Give 6 units 301-350 Give 8 units 351-400 Give 10 units >400 Call physician. 10/06/2023 at 0730 Yes cetirizine (ZYRTEC) 10 mg tablet Take 10 mg by mouth once daily. 10/06/2023 Yes mupirocin (BACTROBAN) 2 % ointment APPLY TO THE AFFECTED AREA(S) TWICE DAILY for 2-3 weeks Blood-Glucose Sensor (2C2PCOM G7 SENSOR) liana as directed. ACETAMINOPHEN ORAL Take by mouth. MELATONIN ORAL Take by mouth. multivit-minerals/foli c acid (CENTRUM MULTIGUMMIES ORAL) Take by mouth. cholecalciferol, vitD3,/vit K2 (VITAMIN D3-VITAMIN K2 ORAL) Take by mouth. L gasseri/B bifidum/B longum (PROBIOTIC COLON CARE ORAL) Take by mouth. BASAGLAR KWIKPEN U-100 INSULIN 100 unit/mL (3 mL) Inject 30 Units subcutaneously every morning. Patient taking differently: Inject 40 Units subcutaneously daily at bedtime. Insulin [place], Disposable, (BD ULTRA-FINE NAY PEN NEEDLE) 32 gauge x 5/32 Use as directed up to four times daily gabapentin (NEURONTIN) 100 mg capsule Take 1 capsule by mouth daily at bedtime for 30 days. Patient taking differently: Take 100 mg by mouth three times a day. rOPINIRole (REQUIP) 2 mg tablet Take 1 tablet by mouth daily at bedtime. Cholecalciferol, Vitamin D3, (VITAMIN D) 25 mcg (1,000 unit) cap Take 2 capsules by mouth once daily. atorvastatin (LIPITOR) 10 mg tablet Take 10 mg by mouth once daily. ALLERGIES Allergen Reactions Amoxicillin-Pot Cla* Diarrhea Oseltamivir Other: See Comments Sulfamethoxazole-Tr* GI Upset, Unknown Objective PHYSICAL EXAM: The remainder of the physical exam is noncontributory. AIRWAY: Airway Visualization of Uvula: Yes Mouth opening greater than 2 fingerbreadths: Yes Neck Full Range of Motion: Yes LUNGS: Lungs clear to auscultation, Good diaphragmatic excursion CARDIAC: Normal S1 and S2; no rubs, murmurs, or gallops Assessment/Plan ASA Class: ASA Class:: Patient with mild systemic disease Provisional Diagnosis/Treatment Plan: Image guided bone marrow biopsy SEDATION GOAL: Moderate SIGNATURE: Stefani Yao MD PATIENT NAME: Jon Bauer DATE: October 06, 2023 TIME: 1 (more content not included)... Normal [facility] NURSING PROGon 10-06-2023 NURSING PROG HNO ID: [id number] Author: ANALY CAMARILLO RN Service: Radiology Author Type: Registered Nurse Type: Nursing Progress Note Filed: 10/06/2023 09:40 Note Text: PATIENT EDUCATION TOPIC: PROCEDURE / SURGERY: Procedure/Surgery: bone marrow biopsy PATIENT NAME: Jon Bauer PATIENT LOCATION: INTERVENTIONAL RADIOL* READINESS TO LEARN COGNITIVE ABILITY: Alert and oriented MOTIVATION TO LEARN: Interested FAMILY SUPPORT: High - Very involved in pt care INSTRUCTION PROVIDED TO: Patient PATIENT LEARNS BEST BY: Multiple Methods FACTORS AFFECTING LEARNING: None PHYSICAL LIMITATIONS AFFECTING LEARNING: None LEARNING RESPONSE DIAGNOSIS: ADULT: Multiple myeloma not having achieved remission PATIENT/FAMILY RESPONSE: Verbalizes understanding of: POST-PROCEDURE INSTRUCTIONS-Correct actions to take to reduce post procedure complications PRE-PROCEDURE INSTRUCTIONS-Correct action to take to follow pre-procedure instructions METHOD OF INSTRUCTION: Individual instruction Written instruction/Handouts Verbal instruction FOLLOW-UP PLAN: Follow-up with Primary Care INSTRUCTIONAL AIDS USED: NA SUPPLEMENTAL MATERIAL PROVIDED TO PATIENT: None REFERRAL (RECOMMENDATION): None Electronically Signed By: Analy Camarillo [facility] PT EDon 10-06-2023 PT ED HNO ID: [id number] Author: ALISON AGUIRRE, RN Service: Nursing Author Type: Registered Nurse Type: Patient Education Filed: 10/06/2023 11:30 Note Text: PATIENT EDUCATION TOPIC: PROCEDURE / SURGERY: Post-op Teaching: Med Administration, Symptom Management, and Wound Care PATIENT NAME: Jon Bauer PATIENT LOCATION: INTERVENTIONAL RADIOL* READINESS TO LEARN COGNITIVE ABILITY: Alert and oriented MOTIVATION TO LEARN: Interested FAMILY SUPPORT: Unable to assess - Family not present INSTRUCTION PROVIDED TO: Patient PATIENT LEARNS BEST BY: Written Instruction - Hand-outs Verbal Instruction FACTORS AFFECTING LEARNING: None PHYSICAL LIMITATIONS AFFECTING LEARNING: None LEARNING RESPONSE DIAGNOSIS: ADULT: Well Adult PATIENT/FAMILY RESPONSE: Information received as demonstrated by interest and questions METHOD OF INSTRUCTION: Written instruction/Handouts Verbal instruction FOLLOW-UP PLAN: Complete - No need for follow-up INSTRUCTIONAL AIDS USED: NA SUPPLEMENTAL MATERIAL PROVIDED TO PATIENT: None REFERRAL (RECOMMENDATION): None Electronically Signed By: Alison Aguirre [facility] 09-29-2023 [employer] [facility] [employer] [facility] Telephone (IRRFV) JON BAUER ([id number]) 1950 M Date Time Provider Department 09/29/23 IGNACIA GALVAN IRRFV During your visit today, we recorded the following information about you: Ignacia Galvan, RN 09/29/2023 9:42 AM Signed You are scheduled for a bone marrow biopsy, On 10/06/2023. You are to arrive at 9:30 am and Report to [facility] First Floor Radiology Registration Desk. You can expect to be here for 4-8 hours. Diet: Do not eat any solid food after midnight the day of/night before your procedure. You may drink clear liquids until 8:30 am, which means black coffee, apple juice, black tea, or water only. Medications: Ok to take your cardiac, blood pressure, anti-seizure, and chronic pain medications with a sip of water, please take prior to arrival. Bring your current medication list. RADIOLOGY RECOMMENDS THESE MEDICATION RESTRICTIONS: Patient states no blood thinner use Labs: Lab-work needs to be drawn? No.. Inclusion Intern/Transportation: How will you be arriving for your procedure? Private car. You will need a responsible adult to accompany you to and from the procedure. Your pile driver operator barge mounted is required to stay with you until you are taken into the procedure room. Allergies As of Date: 09/29/2023 Noted Allergy Reaction AMOXICILLIN-POT CLAVULANATE 09/09/2022 6 - Diarrhea OSELTAMIVIR 03/17/2022 14 - Other: See Comments SULFAMETHOXAZOLE-TRIME THOPRIM 12/22/2022 8 - GI Upset 16 - Unknown Date Reviewed: 09/19/2023 Reviewed by: Shy Burleson, RT(R) - Fully Assessed Prescriptions as of 09/29/2023 - ALPRAZolam (XANAX) 0.5 mg tablet Take 1 tablet by mouth three times a day as needed for up to 6 days. - mupirocin (BACTROBAN) 2 % ointment APPLY TO THE AFFECTED AREA(S) TWICE DAILY for 2-3 weeks - REVLIMID 2.5 mg capsule TAKE 1 CAPSULE BY MOUTH 1 TIME A DAY - Blood-Glucose Sensor (DEXCOM G7 SENSOR) liana as directed. - empagliflozin (JARDIANCE) 10 mg tablet Take 10 mg by mouth daily with breakfast. - ACETAMINOPHEN ORAL Take by mouth. - MELATONIN ORAL Take by mouth. - multivit-minerals/foli c acid (CENTRUM MULTIGUMMIES ORAL) Take by mouth. - cholecalciferol, vitD3,/vit K2 (VITAMIN D3-VITAMIN K2 ORAL) Take by mouth. - L gasseri/B bifidum/B longum (PROBIOTIC COLON CARE ORAL) Take by mouth. - BASAGLAR KWIKPEN U-100 INSULIN 100 unit/mL (3 mL) Inject 30 Units subcutaneously every morning. - insulin aspart U-100 (NOVOLOG FLEXPEN U-100 INSULIN) 100 unit/mL (3 mL) If Blood Glucose (mg/dL) is <110 Give 0 units 111-150 Give 0 units 151-200 Give 2 unit 201-250 Give 4 units 251-300 Give 6 units 301-350 Give 8 units 351-400 Give 10 units >400 Call physician. - Insulin [place], Disposable, (BD ULTRA-FINE NAY PEN NEEDLE) 32 gauge x 5/32 Use as directed up to four times daily - gabapentin (NEURONTIN) 100 mg capsule Take 1 capsule by mouth daily at bedtime for 30 days. - rOPINIRole (REQUIP) 2 mg tablet Take 1 tablet by mouth daily at bedtime. - Cholecalciferol, Vitamin D3, (VITAMIN D) 25 mcg (1,000 unit) cap Take 2 capsules by mouth once daily. - atorvastatin (LIPITOR) 10 mg tablet Take 10 mg by mouth once daily. - cetirizine (ZYRTEC) 10 mg tablet Take 10 mg by mouth once daily. Meds Comments as of 02/17/2022: THC Gummie Problem List As Of Date 09/29/2023 Noted Resolved Bicipital tenosynovitis [M75.20] 11/01/2013 08/20/2020 Biceps rupture, proximal [S46.119A] 04/09/2014 08/20/2020 Multiple myeloma not having achieved remission *02/04/2020 Neuropathy [G62.9] 08/20/2020 Cancer associated pain [G89.3] 08/20/2020 HTN (hypertension) [I10] 08/20/2020 DM (diabetes mellitus), type 2 with complicatio*08/20/2020 Elevated LFTs [R79.89] 08/20/2020 Multiple myeloma (HCC) [C90.00] 09/17/2020 Chemotherapy-induced nausea [R11.0, T45.1X5A] 09/17/2020 Pancytopenia due to antineoplastic chemotherapy* Hyperlipidemia [E78.5] 09/17/2020 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HCC*09/17/2020 Depression [F32.A] 09/18/2020 Restless leg syndrome [G25.81] 09/18/2020 Constipation [K59.00] 09/19/2020 Diarrhea [R19.7] 09/27/2020 10/04/2020 Occult blood in stools [R19.5] 10/04/2020 Flatus [R14.3] 10/04/2020 Decreased appetite [R63.0] 10/04/2020 Oral thrush [B37.0] 10/04/2020 Xeroderma [Q80.9] 10/04/2020 Pruritus [L29.9] 10/04/2020 At risk for infection due to immunosuppression *10/04/2020 Immunodeficiency (HCC) [D84.9] 10/04/2020 Orthostatic hypotension [I95.1] 10/04/2020 Renal insufficiency [N28.9] 11/11/2020 Malnutrition of moderate degree (HCC) [E44.0] 06/11/2022 Platelets decreased (HCC) [D69.6] 09/12/2022 Recurrent major depression in remission (HCC) [*09/12/2022 Abdominal aortic aneurysm (AAA) (HCC) [I71.40] 09/27/2022 Liver mass [R16.0] 10/08/2022 Obesity, Class I, BMI 30-34.9 [E6 (more content not included)... Normal [facility] ALLIED HEALTHon 09-19-2023 ALLIED HEALTH Normal [facility] MR Liver WO and W contrast I Von 09-19-2023 IMPRESSION: 1. No evidence of suspicious enhancing hepatic mass. 2. Diffuse hepatic fatty infiltration. 3. Mildly complex right renal cyst stable in size since 05/24/23 but demonstrates new thin septal enhancement (Bosniak IIF). Consider attention at interval follow-up. Surface Room Shop Optician: LILIBETH Transcribe Date/Time: Sep 19 2023 2:42P Dictated by : EMLVIN REYES MD This examination was interpreted and the report reviewed and electronically signed by: MELVIN REYES MD on Sep 19 2023 3:17PM [facility] * * *Final Report* * * DATE OF EXAM: Sep 19 2023 12:39PM [facility]27 - MRI LIVER WO/W IVCON / PROCEDURE REASON: Hepatocellular carcinoma (HCC) * * * * Physician Interpretation * * * * HISTORY: Hepatocellular carcinoma TECHNIQUE: MRI of the abdomen with and without intravenous gadolinium (20 cc Dotarem) using multiecho multiplanar technique. COMPARISON: 05/24/23 RESULT: Ascites: None. Liver: Diffuse hepatic fatty infiltration. Postoperative changes of right hepatic lobe. No evidence of suspicious enhancing mass. Nonspecific 5 mm hypoenhancing focus in the dome of the liver (20:11), stable and may represent hemangioma. Portal vein, hepatic vein, superior mesenteric vein are widely patent. Biliary ducts: No evidence of intra or extra hepatic biliary ductal dilatation. Metallic artifact from cholecystectomy clips. Pancreas and duct: No evidence of mass or duct dilatation. Spleen: Normal in size and signal. Adrenal glands: No evidence of mass. Kidneys: No evidence of hydronephrosis. 1.4 cm complex cysts in the upper pole of the right kidney (21:45) stable in size but demonstrates new demonstrating thin septal enhancement. Multiple bilateral renal cysts. Nonenhancing subcentimeter T1 hyperintense foci in the left kidney (11:51, 65) measuring up to 8 mm, most likely hemorrhagic/proteinace ous cysts. Retroperitoneum: No evidence of lymphadenopathy. [facility] * * *Final Report* * * DATE OF EXAM: Sep 19 2023 12:39PM [facility]27 - MRI LIVER WO/W IVCON / PROCEDURE REASON: Hepatocellular carcinoma (HCC) * * * * Physician Interpretation * * * * HISTORY: Hepatocellular carcinoma TECHNIQUE: MRI of the abdomen with and without intravenous gadolinium (20 cc Dotarem) using multiecho multiplanar technique. COMPARISON: 05/24/23 RESULT: Ascites: None. Liver: Diffuse hepatic fatty infiltration. Postoperative changes of right hepatic lobe. No evidence of suspicious enhancing mass. Nonspecific 5 mm hypoenhancing focus in the dome of the liver (20:11), stable and may represent hemangioma. Portal vein, hepatic vein, superior mesenteric vein are widely patent. Biliary ducts: No evidence of intra or extra hepatic biliary ductal dilatation. Metallic artifact from cholecystectomy clips. Pancreas and duct: No evidence of mass or duct dilatation. Spleen: Normal in size and signal. Adrenal glands: No evidence of mass. Kidneys: No evidence of hydronephrosis. 1.4 cm complex cysts in the upper pole of the right kidney (21:45) stable in size but demonstrates new demonstrating thin septal enhancement. Multiple bilateral renal cysts. Nonenhancing subcentimeter T1 hyperintense foci in the left kidney (11:51, 65) measuring up to 8 mm, most likely hemorrhagic/proteinace ous cysts. Retroperitoneum: No evidence of lymphadenopathy. IMPRESSION IMPRESSION: 1. No evidence of suspicious enhancing hepatic mass. 2. Diffuse hepatic fatty infiltration. 3. Mildly complex right renal cyst stable in size since 05/24/23 but demonstrates new thin septal enhancement (Bosniak IIF). Consider attention at interval follow-up. Surface Room Shop Optician: LILIBETH Transcribe Date/Time: Sep 19 2023 2:42P Dictated by : MELVIN REYES MD This examination was interpreted and the report reviewed and electronically signed by: MELVIN REYES MD on Sep 19 2023 3:17PM EST [facility] Radiology Study observation (narrative) [facility] MR Liver WO and W contrast I VOrdered By: Ccf Provider on 09-19-2023 [facility] MRI LIVER WO/W IVCONon 09-18 MRI LIVER WO/W IVCON Normal [facility] B2 Microglob SerPl-mCncon Zdow-6-Zqgmhsipnpjkk [Mass/Vol] 3.1 ug/mL High <3.1 [facility] Comment on above: Order Comment: Speci men Type: BLOOD SPECIMEN Ordering Facility: [facility] Address: [address] [place] [address] Result Comment: Beta -2 Microglobulin test is performed using the [employer] immunoturbidimetric method. Results obtained with different methods or kits cannot be used interchangeably. Performed By: #### K LFRS #### [facility] CLIA [id number] [address] [place], [place] [address] [place] [address] [place] CBC W Auto Differential pane l (Bld)on 09-15-2023 Basophils (Bld) [#/Vol] 10*3/uL Normal <0.11 C [facility] Comment on above: Order Comment: Speci men Type: BLOOD SPECIMEN Ordering Facility: [facility] Address: [address] [place] [address] Performed By: #### 5 7021-8 #### [facility] CLIA [id number] [address] [place] [address] Basophils/100 WBC (Bld) 0.7 % Normal [facility] Comment on above: Order Comment: Speci men Type: BLOOD SPECIMEN Ordering Facility: [facility] Address: [address] [place] [address] Performed By: #### 5 7021-8 #### [facility] CLIA [id number] [address] [place] [address] Differential cell count method Nom (Bld) Auto Normal [facility] Comment on above: Order Comment: Speci men Type: BLOOD SPECIMEN Ordering Facility: [facility] Address: [address] [place] [address] Performed By: #### 5 7021-8 #### [facility] CLIA [id number] [address] [place] [address] Eosinophils (Bld) [#/Vol] 0.08 10*3/uL Normal <0.46 [facility] Comment on above: Order Comment: Speci men Type: BLOOD SPECIMEN Ordering Facility: [facility] Address: [address] [place] [address] Performed By: #### 5 7021-8 #### [facility] CLIA [id number] [address] [place] [address] Eosinophils/100 WBC (Bld) 2.7 % Normal [facility] Comment on above: Order Comment: Speci men Type: BLOOD SPECIMEN Ordering Facility: [facility] Address: [address] [place] [address] Performed By: #### 5 7021-8 #### [facility] CLIA [id number] [address] [place] [address] Erythrocyte distribution width (RBC) [Ratio] 14.4 % Normal 11.5-15.0 [facility] Comment on above: Order Comment: Speci men Type: BLOOD SPECIMEN Ordering Facility: [facility] Address: [address] [place] [address] Performed By: #### 5 7021-8 #### [facility] CLIA [id number] [address] [place] [address] Hematocrit (Bld) [Volume fraction] 34.7 % Low 39.0-51.0 [facility] Comment on above: Order Comment: Speci men Type: BLOOD SPECIMEN Ordering Facility: [facility] Address: [address] [place] [address] Performed By: #### 5 7021-8 #### [facility] CLIA [id number] [address] [place] [address] Hemoglobin (Bld) [Mass/Vol] 12.0 g/dL Low 13.0-17.0 [facility] Comment on above: Order Comment: Speci men Type: BLOOD SPECIMEN Ordering Facility: [facility] Address: [address] [place] [address] Performed By: #### 5 7021-8 #### [facility] CLIA [id number] [address] [place] [address] Immature granulocytes (Bld) [#/Vol] 10*3/uL Normal <0.10 [facility] Comment on above: Order Comment: Speci men Type: BLOOD SPECIMEN Ordering Facility: [facility] Address: [address] [place] [address] Performed By: #### 5 7021-8 #### [facility] CLIA [id number] [address] [place] [address] Immature granulocytes/100 WBC (Bld) 0.0 % Normal [facility] Comment on above: Order Comment: Speci men Type: BLOOD SPECIMEN Ordering Facility: [facility] Address: [address] [place] [address] Performed By: #### 5 7021-8 #### [facility] CLIA [id number] [address] [place] [address] Lymphocytes (Bld) [#/Vol] 1.68 10*3/uL Normal 1.00-4.00 [facility] Comment on above: Order Comment: Speci men Type: BLOOD SPECIMEN Ordering Facility: [facility] Address: [address] [place] [address] Performed By: #### 5 7021-8 #### [facility] CLIA [id number] [address] [place] [address] Lymphocytes/100 WBC (Bld) 56.4 % Normal [facility] Comment on above: Order Comment: Speci men Type: BLOOD SPECIMEN Ordering Facility: [facility] Address: [address] [place] [address] Performed By: #### 5 7021-8 #### [facility] CLIA [id number] [address] [place] [address] MCH (RBC) [Entitic mass] 33.9 pg Normal 26.0-34.0 [facility] Comment on above: Order Comment: Speci men Type: BLOOD SPECIMEN Ordering Facility: [facility] Address: [address] [place] [address] Performed By: #### 5 7021-8 #### [facility] CLIA [id number] [address] [place] [address] MCHC (RBC) [Mass/Vol] 34.6 g/dL Normal 30.5-36.0 [facility] Comment on above: Order Comment: Speci men Type: BLOOD SPECIMEN Ordering Facility: [facility] Address: [address] [place] [address] Performed By: #### 5 7021-8 #### [facility] CLIA [id number] [address] [place] [address] MCV (RBC) [Entitic vol] 98.0 fL Normal 80.0-100.0 C [facility] Comment on above: Order Comment: Speci men Type: BLOOD SPECIMEN Ordering Facility: [facility] Address: [address] [place] [address] Performed By: #### 5 7021-8 #### [facility] CLIA [id number] [address] [place] [address] Monocytes (Bld) [#/Vol] 0.39 10*3/uL Normal <0.87 [facility] Comment on above: Order Comment: Speci men Type: BLOOD SPECIMEN Ordering Facility: [facility] Address: [address] [place] [address] Performed By: #### 5 7021-8 #### [facility] CLIA [id number] [address] [place] [address] Monocytes/100 WBC (Bld) 13.1 % Normal [facility] Comment on above: Order Comment: Speci men Type: BLOOD SPECIMEN Ordering Facility: [facility] Address: [address] [place] [address] Performed By: #### 5 7021-8 #### [facility] CLIA [id number] [address] [place] [address] Neutrophils (Bld) [#/Vol] 0.81 10*3/uL Low 1.45-7.50 [facility] Comment on above: Order Comment: Speci men Type: BLOOD SPECIMEN Ordering Facility: [facility] Address: [address] [place] [address] Performed By: #### 5 7021-8 #### [facility] CLIA [id number] [address] [place] [address] Neutrophils/100 WBC (Bld) 27.1 % Normal [facility] Comment on above: Order Comment: Speci men Type: BLOOD SPECIMEN Ordering Facility: [facility] Address: [address] [place] [address] Performed By: #### 5 7021-8 #### [facility] CLIA [id number] [address] [place] [address] Nucleated RBC (Bld) [#/Vol] 10*3/uL Normal <0.01 [facility] Comment on above: Order Comment: Speci men Type: BLOOD SPECIMEN Ordering Facility: [facility] Address: [address] [place] [address] Performed By: #### 5 7021-8 #### [facility] CLIA [id number] [address] [place] [address] Nucleated RBC/100 WBC (Bld) [Ratio] 0.0 /100 WBC Normal [facility] Comment on above: Order Comment: Speci men Type: BLOOD SPECIMEN Ordering Facility: [facility] Address: [address] [place] [address] Performed By: #### 5 7021-8 #### [facility] CLIA [id number] [address] [place] [address] Platelet mean volume (Bld) [Entitic vol] 8.9 fL Low 9.0-12.7 [facility] [facility] Comment on above: Order Comment: Speci men Type: BLOOD SPECIMEN Ordering Facility: [facility] Address: [address] [place] [address] Performed By: #### 5 7021-8 #### [facility] CLIA [id number] [address] [place] [id number] Platelets (Bld) [#/Vol] 129 10*3/uL Low 150-400 [facility] Comment on above: Order Comment: Speci men Type: BLOOD SPECIMEN Ordering Facility: [facility] Address: [address] [place] [address] Performed By: #### 5 7021-8 #### [facility] CLIA [id number] [address] [place] [address] RBC (Bld) [#/Vol] 3.54 10*6/uL Low 4.20-6.00 [facility] Comment on above: Order Comment: Speci men Type: BLOOD SPECIMEN Ordering Facility: [facility] Address: [address] [place] [address] Performed By: #### 5 7021-8 #### [facility] CLIA [id number] [address] [place] [address] WBC (Bld) [#/Vol] 2.98 10*3/uL Low 3.70-11.00 [facility] Comment on above: Order Comment: Speci men Type: BLOOD SPECIMEN Ordering Facility: [facility] Address: [address] [place] [address] [place] [address] Performed By: #### 5 7021-8 #### [facility] CLIA [id number] [address] [place] [address] CNOVSPon 09-15-2023 CNOVSP Visit (SP) Office ([place]) JON BAUER ([id number]) 1950 M Date Time Provider Department 09/15/23 2:30 PM VIMAL CRANDALL During your visit today, we recorded the following information about you: Temperature Pulse Respiration Blood pressure 97.3 degrees 56/minute 16/minute 156/89 Weight 120 kg Vimal Crandall MD 09/16/2023 2:20 PM Signed NAME: Jon Bauer CLINIC NO.: [id number] DATE OF SERVICE: September 15, 2023 (Raz) Some elements in this clinic note that are critical to medical decision making have been carefully reviewed and included from a prior clinic note dated: August 18, 2023 (Raz) Additional Clinicians involved in Jon Bauer's care: Dr. Lomeli, Dr. Frankie Campbell DIAGNOSIS: Multiple myeloma followup ASSESSMENT: This is a 73 year old man diagnosed with an IgG lambda monoclonal gammopathy in 2019 and was then noted to have rising M-spike and PET scan documented a sternal lesion. 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 ISS and R-ISS stage II disease. He had a partial response to induction therapy and has recovered following Autologous stem cell infusion. Up to date on post transplant vaccinations. Mild thrombocytopenia - Stable for now. Additional medical issues include: - Immunodeficiency following HDSCT and patient will continue Acyclovir and post-transplant immunizations per Infectious Disease protocol - Renal failure is improving and we will continue monitoring - Neuropathy is stable - Diabetes mellitus managed by PCP is elevated from steroids. - Hepatocellular carcinoma discovered August 2022, resected October 2022. Initial M-Protein is 3.31 prior to Induction Current M-spike is 0.34 as of 06/09/2022 10/08/2022 - resection of Liver mass right lobe [id number] HCC, 3 cm, G2, + LVI . Will undergo serial observation. No current adjuvant therapy recommended. No recurrence on scans February 2023. Continues to have rising M-spike - will repeat bone marrow biopsy and likely change treatment with Daratumumab. PLAN: Continue Revlimid MRI Liver prior to next return Bone marrow biopsy at [place] / [place] please RTC in 4 weeks Labs same day Keep follow up with urology in October need to order ultrasound kidney prior to that visit - ___ HPI: CASE HISTORY: Reverse Chronological Order 05/24/2023 - MRI Liver: Postsurgical change as described. No LR-5/OPTN Class 5 lesions. 03/10/2023 - US Kidney Bladder: 1.7 cm RIGHT renal lesion is at least a partially complex cystic lesion but may have a solid peripheral component. Renal neoplasm is not excluded. 02/10/2023 - CT liver with IV contrast: Since 10/01/2022, interval partial right hepatectomy. No findings to suggest residual or recurrent disease. A 1.1 cm hypodensity within the right renal upper pole is indeterminate 11/24/2022 - Resumed Rev maint. 10/08/2022 - Resection of Liver mass right lobe [id number] HCC, 3 cm, G2, + LVI . 06/28/2022 - Held Revlimid due to recurring infections. 07/30/2021 - Resumed Rev at 5mg daily due to thrombocytopenia. 07/02/2021 - M-spike 0.36 12/26/2020 - Rx for Maintenance Rev 10mg daily 12/16/2020 - Hospitalization for SBO with intractable nausea 09/19/2020 - HDCT Auto transplant (D0). 08/24/2020 - Pretransplant testing revealed a 24-hour urine with 0.02 gm M spike. Serum M protein was 0.61, serum kappa light chains 15.3, serum lambda light chain 17.0, serum kappa/lambda ratio 0.90 (normal 0.26-1.65) 08/19/2020 - Bone marrow examination 40% cellular with less than 5% plasma cells and normal cytogenetics 02/18/2020-08/25/2020 - RVD 02/01/2020 - PET/CT: No FDG avid neoplastic process in the neck, chest, or A/P. EXTREMITIES/SKELETON: 1.2 cm mildly FDG-avid lytic lesion in the sternum with SUV max of 2.7, may represent a site of active myeloma. No FDG avid destructive osseous lesions elsewhere. Specifically, no hypermetabolic lesions in humeral heads or femurs. 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 06/08/2019 - Bone Survey: Lytic lesions involving bilateral humeral heads and distal right femur Updated Visit, September 15, 2023: Jon returns today and has another episode of facial MRSA abscess. This is healing but he had thrush and diarrhea and was pretty misearble. Held rev for a little bit and has resumed. M-spike continues to rise, will re-stage soon and (more content not included)... Normal [facility] CNPNon 09-15-2023 [facility]AUER ([id number]) 1950 M Date Time Provider Department 09/15/23 VIMAL CRANDALL During your visit today, we recorded the following information about you: Eva Gibson 09/15/2023 3:49 PM Signed Patient is scheduled for his MRI of Liver on 10-25-23. Jon is requesting pre meds to be sent to his pharmacy prior to this test. Thank you Arcelia Thomas RN 09/15/2023 4:24 PM Signed Did he say what the premeds were for? Claustrophobia? ALEX Multani Eva M 09/16/2023 8:28 AM Signed Yes, Cassia Naik. Clausterphonic. Patient states that the physician have prescribed before. Vimal Crandall MD 09/16/2023 8:38 AM Signed Xanax sent to [facility] - Vimal Ames MD 09/16/2023 8:38 AM Signed Addended by: VIMAL CRANDALL on: 09/16/2023 08:38 AM Modules accepted: Arcelia Reese RN 09/16/2023 8:53 AM Signed Emilia: Rx was not sent. Looks like it still needs signed. ALEX Multani Vivek, MD 09/16/2023 1:45 PM Signed Got it! Vimal Crandall MD 09/16/2023 1:45 PM Signed Addended by: VIMAL CRANDALL on: 09/16/2023 01:45 PM Modules accepted: Arcelia Reese RN 09/16/2023 1:46 PM Signed Pt notified of script. Arcelia Thomas RN Allergies As of Date: 09/15/2023 Noted Allergy Reaction AMOXICILLIN-POT CLAVULANATE 09/09/2022 6 - Diarrhea OSELTAMIVIR 03/17/2022 14 - Other: See Comments SULFAMETHOXAZOLE-TRIME THOPRIM 12/22/2022 8 - GI Upset 16 - Unknown Date Reviewed: 09/15/2023 Reviewed by: Ladonna Diaz MA - Fully Assessed Reason for Visit: MRI Pre meds [Other] Primary Visit Diagnosis:Claustrophob ia [F40.240] Order(s):ALPRAZolam (XANAX) 0.5 mg tabletTake 2 tablets by mouth three times a day as needed for anxiety (claustrophobia) for up to 2 days.Disp: 12 tabletRfl: 0 Prescriptions as of 09/16/2023 - ALPRAZolam (XANAX) 0.5 mg tablet Take 2 tablets by mouth three times a day as needed for anxiety (claustrophobia) for up to 2 days. - mupirocin (BACTROBAN) 2 % ointment APPLY TO THE AFFECTED AREA(S) TWICE DAILY for 2-3 weeks - iv contrast (will be provided with radiology test) MRI LIVER (EOVIST) Inject, intravenously, once for 1 dose. No IV access, insert saline lock prior to the beginning of sedation, infusion, injection of imaging exam. Discontinue saline lock post exam. If Pt. has a central line or IVAD, may access for administration according to line specific nursing protocol. Once exam is complete flush line and de-access according to line specific nursing protocol in the MR contrast administration guidelines link. - REVLIMID 2.5 mg capsule TAKE 1 CAPSULE BY MOUTH 1 TIME A DAY - Blood-Glucose Sensor (DEXCOM G7 SENSOR) liana as directed. - empagliflozin (JARDIANCE) 10 mg tablet Take 10 mg by mouth daily with breakfast. - ACETAMINOPHEN ORAL Take by mouth. - MELATONIN ORAL Take by mouth. - multivit-minerals/foli c acid (CENTRUM MULTIGUMMIES ORAL) Take by mouth. - cholecalciferol, vitD3,/vit K2 (VITAMIN D3-VITAMIN K2 ORAL) Take by mouth. - L gasseri/B bifidum/B longum (PROBIOTIC COLON CARE ORAL) Take by mouth. - BASAGLAR KWIKPEN U-100 INSULIN 100 unit/mL (3 mL) Inject 30 Units subcutaneously every morning. - insulin aspart U-100 (NOVOLOG FLEXPEN U-100 INSULIN) 100 unit/mL (3 mL) If Blood Glucose (mg/dL) is <110 Give 0 units 111-150 Give 0 units 151-200 Give 2 unit 201-250 Give 4 units 251-300 Give 6 units 301-350 Give 8 units 351-400 Give 10 units >400 Call physician. - Insulin [place], Disposable, (BD ULTRA-FINE NAY PEN NEEDLE) 32 gauge x 5/32 Use as directed up to four times daily - gabapentin (NEURONTIN) 100 mg capsule Take 1 capsule by mouth daily at bedtime for 30 days. - rOPINIRole (REQUIP) 2 mg tablet Take 1 tablet by mouth daily at bedtime. - Cholecalciferol, Vitamin D3, (VITAMIN D) 25 mcg (1,000 unit) cap Take 2 capsules by mouth once daily. - atorvastatin (LIPITOR) 10 mg tablet Take 10 mg by mouth once daily. - cetirizine (ZYRTEC) 10 mg tablet Take 10 mg by mouth once daily. 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 Normal [facility] Telephone ([facility]) JON BAUER ([id number]) 1950 M Date Time Provider Department 09/15/23 VIMAL CRANDALL During your visit today, we recorded the following information about you: Eva Gibson Donn 09/15/2023 3:32 PM Signed Please see order for scheduling Imaging guided Biopsy of bone marrow ordered by Dr. Vimal Pierson Allergies As of Date: 09/15/2023 Noted Allergy Reaction AMOXICILLIN-POT CLAVULANATE 09/09/2022 6 - Diarrhea OSELTAMIVIR 03/17/2022 14 - Other: See Comments SULFAMETHOXAZOLE-TRIME THOPRIM 12/22/2022 8 - GI Upset 16 - Unknown Date Reviewed: 09/15/2023 Reviewed by: Ladonna Diaz MA - Fully Assessed Reason for Visit: Future Appointment [256] Prescriptions as of 09/16/2023 - mupirocin (BACTROBAN) 2 % ointment APPLY TO THE AFFECTED AREA(S) TWICE DAILY for 2-3 weeks - iv contrast (will be provided with radiology test) MRI LIVER (EOVIST) Inject, intravenously, once for 1 dose. No IV access, insert saline lock prior to the beginning of sedation, infusion, injection of imaging exam. Discontinue saline lock post exam. If Pt. has a central line or IVAD, may access for administration according to line specific nursing protocol. Once exam is complete flush line and de-access according to line specific nursing protocol in the MR contrast administration guidelines link. - REVLIMID 2.5 mg capsule TAKE 1 CAPSULE BY MOUTH 1 TIME A DAY - Blood-Glucose Sensor (DEXCOM G7 SENSOR) liana as directed. - empagliflozin (JARDIANCE) 10 mg tablet Take 10 mg by mouth daily with breakfast. - ACETAMINOPHEN ORAL Take by mouth. - MELATONIN ORAL Take by mouth. - multivit-minerals/foli c acid (CENTRUM MULTIGUMMIES ORAL) Take by mouth. - cholecalciferol, vitD3,/vit K2 (VITAMIN D3-VITAMIN K2 ORAL) Take by mouth. - L gasseri/B bifidum/B longum (PROBIOTIC COLON CARE ORAL) Take by mouth. - BASAGLAR KWIKPEN U-100 INSULIN 100 unit/mL (3 mL) Inject 30 Units subcutaneously every morning. - insulin aspart U-100 (NOVOLOG FLEXPEN U-100 INSULIN) 100 unit/mL (3 mL) If Blood Glucose (mg/dL) is <110 Give 0 units 111-150 Give 0 units 151-200 Give 2 unit 201-250 Give 4 units 251-300 Give 6 units 301-350 Give 8 units 351-400 Give 10 units >400 Call physician. - Insulin [place], Disposable, (BD ULTRA-FINE NAY PEN NEEDLE) 32 gauge x 5/32 Use as directed up to four times daily - gabapentin (NEURONTIN) 100 mg capsule Take 1 capsule by mouth daily at bedtime for 30 days. - rOPINIRole (REQUIP) 2 mg tablet Take 1 tablet by mouth daily at bedtime. - Cholecalciferol, Vitamin D3, (VITAMIN D) 25 mcg (1,000 unit) cap Take 2 capsules by mouth once daily. - atorvastatin (LIPITOR) 10 mg tablet Take 10 mg by mouth once daily. - cetirizine (ZYRTEC) 10 mg tablet Take 10 mg by mouth once daily. 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] 08/20/2020 HTN (hypertension) [I10] 08/20/2020 DM (diabetes mellitus), type 2 with complicatio*08/20/2020 Elevated LFTs [R79.89] 08/20/2020 Multiple myeloma (HCC) [C90.00] 09/17/2020 Chemotherapy-induced nausea [R11.0, T45.1X5A] 09/17/2020 Pancytopenia due to antineoplastic chemotherapy* Hyperlipidemia [E78.5] 09/17/2020 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HCC*09/17/2020 Depression [F32.A] 09/18/2020 Restless leg syndrome [G25.81] 09/18/2020 Constipation [K59.00] 09/19/2020 Diarrhea [R19.7] 09/27/2020 10/04/2020 Occult blood in stools [R19.5] 10/04/2020 Flatus [R14.3] 10/04/2020 Decreased appetite [R63.0] 10/04/2020 Oral thrush [B37.0] 10/04/2020 Xeroderma [Q80.9] 10/04/2020 Pruritus [L29.9] 10/04/2020 At risk for infection due to immunosuppression *10/04/2020 Immunodeficiency (HCC) [D84.9] 10/04/2020 Orthostatic hypotension [I95.1] 10/04/2020 Renal insufficiency [N28.9] 11/11/2020 Malnutrition of moderate degree (HCC) [E44.0] 06/11/2022 Platelets decreased (HCC) [D69.6] 09/12/2022 Recurrent major depression in remission (HCC) [*09/12/2022 Abdominal aortic aneurysm (AAA) (HCC) [I71.40] 09/27/2022 Liver mass [R16.0] 10/08/2022 Obesity, Class I, BMI 30-34.9 [E66.9] 10/08/2022 Acute post-operative pain [G89.18] 10/08/2022 Thrombocytopenia (HCC) [D69.6] 10/08/2022 Acute blood loss anemia [D62] 10/08/2022 Lactic acidosis [E87.20] 10/08/2022 Obesity, Class II, BMI 35-39.9 [E66.9] 10/09/2022 Stage 3 chronic kidney disease, unspecified whe*11/24/2022 Pancytopenia (HCC) [D61.818] 03/23/2023 Moderate episode of recurrent major depressive *05/18/2023 Encounter Status:Closed by EVA GIBSON on 09/16/23 Normal [facility] Calcium.ionized [Moles/Vol]o n 09-15-2023 Calcium.ionized (Bld) [Mass/Vol] 1.23 mmol/L Normal 1.08-1.30 [facility] Comment on above: Order Comment: Speci men Type: BLOOD SPECIMEN Ordering Facility: [facility] Address: [address] [place] [address] Performed By: #### K LFRS #### [facility] CLIA [id number] [address] [place] [address] [place] Calcium.ionized adjusted to pH 7.4 (Bld) [Moles/Vol] 1.24 mmol/L Normal 1.08-1.30 [facility] Comment on above: Order Comment: Speci men Type: BLOOD SPECIMEN Ordering Facility: [facility] Address: [address] [place] [address] Performed By: #### K LFRS #### [facility] CLIA [id number] [address] [place] [address] [place] Comprehensive metabolic 2000 panelon 09-15-2023 Albumin [Mass/Vol] 4.2 g/dL Normal 3.9-4.9 [facility] Comment on above: Order Comment: Speci men Type: BLOOD SPECIMEN Ordering Facility: [facility] Address: [address] [place] [address] Performed By: #### K LFRS #### [facility] CLIA [id number] [address] [place] [address] [place] ALP [Catalytic activity/Vol] 106 U/L Normal 38-113 [facility] Comment on above: Order Comment: Speci men Type: BLOOD SPECIMEN Ordering Facility: [facility] Address: [address] [place] [address] Performed By: #### K LFRS #### [facility] CLIA [id number] [address] [place] [address] [place] ALT [Catalytic activity/Vol] 42 U/L Normal 10-54 [facility] Comment on above: Order Comment: Speci men Type: BLOOD SPECIMEN Ordering Facility: [facility] Address: [address] [place] [address] Performed By: #### K LFRS #### [facility] CLIA [id number] [address] [place] [address] [place] Anion gap [Moles/Vol] 10 mmol/L Normal 9-18 [facility] Comment on above: Order Comment: Speci men Type: BLOOD SPECIMEN Ordering Facility: [facility] Address: [address] [place] [address] Performed By: #### K LFRS #### [facility] CLIA [id number] [address] [place] [address] [place] AST [Catalytic activity/Vol] 44 U/L High 14-40 [facility] Comment on above: Order Comment: Speci men Type: BLOOD SPECIMEN Ordering Facility: [facility] Address: [address] [place] [address] Performed By: #### K LFRS #### [facility] CLIA [id number] [address] [place] [address] [place] Bilirubin [Mass/Vol] 0.5 mg/dL Normal 0.2-1.3 [facility] Comment on above: Order Comment: Speci men Type: BLOOD SPECIMEN Ordering Facility: [facility] Address: [address] [place] [address] Performed By: #### K LFRS #### [facility] CLIA [id number] [address] [place] [address] [place] Calcium [Mass/Vol] 9.9 mg/dL Normal 8.5-10.2 [facility] Comment on above: Order Comment: Speci men Type: BLOOD SPECIMEN Ordering Facility: [facility] Address: [address] [place] [address] Performed By: #### K LFRS #### [facility] CLIA [id number] [address] [place] [address] [place] Chloride [Moles/Vol] 104 mmol/L Normal 97-105 [facility] Comment on above: Order Comment: Speci men Type: BLOOD SPECIMEN Ordering Facility: [facility] Address: [address] [place] [address] Performed By: #### K LFRS #### [facility] CLIA [id number] [address] [place] [address] [place] CO2 [Moles/Vol] 28 mmol/L Normal 22-30 [facility] Comment on above: Order Comment: Speci men Type: BLOOD SPECIMEN Ordering Facility: [facility] Address: [address] [place] [address] Performed By: #### K LFRS #### [facility] CLIA [id number] [address] [place] [address] [place] Creatinine [Mass/Vol] 1.17 mg/dL Normal 0.73-1.22 [facility] Comment on above: Order Comment: Speci men Type: BLOOD SPECIMEN Ordering Facility: [facility] Address: [address] [place] [address] Performed By: #### K LFRS #### [facility] CLIA [id number] [address] [place] [address] [place] Creatinine and Glomerular filtration rate.predicted panel (S/P/Bld) 67 mL/min/1.73m??? Normal >=60 [facility] Comment on above: Order Comment: Speci men Type: BLOOD SPECIMEN Ordering Facility: [facility] Address: [address] [place] [address] Result Comment: Deepthi mated Glomerular Filtration Rate (eGFR) is calculated using the 2020 CKD-EPI creatinine equation. This equation utilizes serum creatinine, sex, and age as parameters. The creatinine assay has traceable calibration to isotope dilution-mass spectrometry. Refer to KDIGO guidelines for clinical interpretation. In patients with unstable renal function, e.g. those with acute kidney injury, the eGFR may not accurately reflect actual GFR. Performed By: #### K LFRS #### [facility] CLIA [id number] [address] [place] [address] [place] Glucose [Mass/Vol] 280 mg/dL High 74-99 [facility] Comment on above: Order Comment: Casie early Type: BLOOD SPECIMEN Ordering Facility: [facility] Address: [address] [place] [address] Result Comment: The [place] Diabetes Association (ADA) provides guidance for cutoff values for fasting glucose and random glucose. The ADA defines fasting as no caloric intake for at least 8 hours. Fasting plasma glucose results between 100 to 125 mg/dL indicate increased risk for diabetes (prediabetes). Fasting plasma glucose results greater than or equal to 126 mg/dL meet the criteria for diagnosis of diabetes. In the absence of unequivocal hyperglycemia, results should be confirmed by repeat testing. In a patient with classic symptoms of hyperglycemia or hyperglycemic crisis, random plasma glucose results greater than or equal to 200 mg/dL meet the criteria for diagnosis of diabetes. Reference: Standards of Medical Care in Diabetes 2016, [place] [employer] Association. Diabetes Care. 2016.39(Suppl 1). Performed By: #### K LFRS #### [facility] CLIA [id number] [address] [place] [address] [place] Potassium [Moles/Vol] 3.9 mmol/L Normal 3.7-5.1 [facility] Comment on above: Order Comment: Casie early Type: BLOOD SPECIMEN Ordering Facility: [facility] Address: [address] [place] [address] Performed By: #### K LFRS #### [facility] CLIA [id number] [address] [place] [address] [place] Protein [Mass/Vol] 7.3 g/dL Normal 6.3-8.0 [facility] Comment on above: Order Comment: Casie early Type: BLOOD SPECIMEN Ordering Facility: [facility] Address: [address] [place] [address] Performed By: #### K LFRS #### [facility] CLIA [id number] [address] [place] [address] [place] Sodium [Moles/Vol] 142 mmol/L Normal 136-144 [facility] Comment on above: Order Comment: Speci men Type: BLOOD SPECIMEN Ordering Facility: [facility] Address: [address] [place] [address] Performed By: #### K LFRS #### [facility] CLIA [id number] [address] [place] [address] [place] Urea nitrogen [Mass/Vol] 26 mg/dL High 9-24 [facility] Comment on above: Order Comment: Speci men Type: BLOOD SPECIMEN Ordering Facility: [facility] Address: [address] [place] [address] Performed By: #### K LFRS #### [facility] CLIA [id number] [address] [place] [address] OF [place]THE[place] IMMUNOFIXATION SCREEN, SERUM on 09-15-2023 INTERPRETATION (MPA) Atypical restricted bands are present in the IgG and lambda regions. Consistent with IgG lambda monoclonal gammopathy. Normal [facility] Comment on above: Order Comment: Speci men Type: BLOOD SPECIMEN Ordering Facility: [facility] Address: [address] [place] [address] Performed By: #### K LFRS #### [facility] CLIA [id number] [address] [place] [address] [place] MPA RESULT M protein is present. Abnormal No M p rotein is identified. [facility] Comment on above: Order Comment: Speci men Type: BLOOD SPECIMEN Ordering Facility: [facility] Address: [address] [place] [address] Performed By: #### K LFRS #### [facility] CLIA [id number] [address] [place] [address] [place] STAFF REVIEW (MPA) Reviewed by Ladonna Zamudio MD [facility] Comment on above: Order Comment: Speci men Type: BLOOD SPECIMEN Ordering Facility: [facility] Address: [address] [place] [address] Performed By: #### K LFRS #### [facility] CLIA [id number] [address] [facility] [id number] [id number] [place] IMMUNOGLOBULINS,IGG,IGA,IGMo n 09-15-2023 IgA [Mass/Vol] 169 mg/dL Normal 70-400 [facility] Comment on above: Order Comment: Speci men Type: BLOOD SPECIMEN Ordering Facility: [facility] Address: [address] [place] [address] Performed By: #### 5 7021-8 #### [facility] CLIA [id number] [address] [place] [address] 19499 IgG [Mass/Vol] 1359 mg/dL Normal 700-1600 [facility] Comment on above: Order Comment: Speci men Type: BLOOD SPECIMEN Ordering Facility: [facility] Address: [address] [place] [address] Performed By: #### 5 7021-8 #### [facility] CLIA [id number] [address] [place] [address] 37975 IgM [Mass/Vol] 28 mg/dL Low 40-230 [facility] Comment on above: Order Comment: Speci men Type: BLOOD SPECIMEN Ordering Facility: [facility] Address: [address] [place] [address] Performed By: #### 5 7021-8 #### [facility] CLIA [id number] [address] [place] [address] KAPPA/ORTIZ,FREE,SERon 2023 Immunoglobulin light chains.kappa.free (S) [Mass/Vol] 41.0 mg/L High 3.3-19.4 [facility] Comment on above: Order Comment: Speci men Type: BLOOD SPECIMEN Ordering Facility: [facility] Address: [address] [place] [address] Result Comment: Rare ly, increased serum free light chains levels may not be detected or accurately quantified due to prozone phenomenon or in high viscosity samples using this immunoturbidimetric assay. Correlation with other laboratory results and clinical findings is recommended. The [place] Free Light Chain was performed using the Binding Site [employer] immunoturbidimetric method. Result obtained with different assay methods or kits cannot be used interchangeably. Performed By: #### K LFRS #### [facility] CLIA [id number] [address] [place] [address] [place] Immunoglobulin light chains.kappa/Immunoglob ulin light chains.lambda (S) [Mass ratio] 1.05 Normal 0.26-1.65 [facility] Comment on above: Order Comment: Speci men Type: BLOOD SPECIMEN Ordering Facility: [facility] Address: [address] [place] [address] Performed By: #### K LFRS #### [facility] CLIA [id number] [address] [place] [address] [place] Immunoglobulin light chains.lambda.free [Mass/Vol] 39.1 mg/L High 5.7-26.3 [facility] Comment on above: Order Comment: Speci men Type: BLOOD SPECIMEN Ordering Facility: [facility] Address: [address] [place] [address] Result Comment: Rare ly, increased serum free light chains levels may not be detected or accurately quantified due to prozone phenomenon or in high viscosity samples using this immunoturbidimetric assay. Correlation with other laboratory results and clinical findings is recommended. The Lambda Free Light Chain was performed using the Binding Site Optilite immunoturbidimetric method. Result obtained with different assay methods or kits cannot be used interchangeably. Performed By: #### K LFRS #### [facility] CLIA [id number] [address] [place] [address] [place] LDH SerPl-cCncon 09-15-2023 LDH [Catalytic activity/Vol] 210 U/L Normal 135-225 [facility] Comment on above: Order Comment: Speci men Type: BLOOD SPECIMEN Ordering Facility: [facility] Address: [address] [place] [address] Result Comment: Hemo lysis present. The origin of the hemolysis, in vitro versus an in vivo hemolytic process, cannot be distinguished via this assay alone. In vitro hemolysis may lead to non-physiological (spurious) elevation in lactate dehydrogenase (LDH) results. The result should be interpreted in context of the clinical setting and other test results. Suggest reorder as clinically indicated. Performed By: #### K LFRS #### [facility] CLIA [id number] [address] [place] [address] [place] PROTEIN ELECTROPHORESIS SERU M (P)on 09-15-2023 Albumin [Mass/Vol] 3.68 g/dL Normal 3.43-5.41 [facility] Comment on above: Order Comment: Casie early Type: BLOOD SPECIMEN Ordering Facility: [facility] Address: [address] [place] [address] Performed By: #### L [id number] #### [facility] CLIA [id number] [address] [place] [address] [place] Alpha 1 globulin Elph [Mass/Vol] 0.29 g/dL Normal 0.18-0.43 [facility] Comment on above: Order Comment: Casie early Type: BLOOD SPECIMEN Ordering Facility: [facility] Address: [address] [place] [address] Performed By: #### L [id number] #### [facility] CLIA [id number] [address] [place] [address] [place] Alpha 2 globulin Elph [Mass/Vol] 0.73 g/dL Normal 0.42-0.98 [facility] Comment on above: Order Comment: Casie early Type: BLOOD SPECIMEN Ordering Facility: [facility] Address: [address] [place] [address] Performed By: #### L [id number] #### [facility] CLIA [id number] [address] [place] [address] [place] Beta globulin Elph [Mass/Vol] 0.76 g/dL Normal 0.61-1.17 [facility] Comment on above: Order Comment: Speci men Type: BLOOD SPECIMEN Ordering Facility: [facility] Address: [address] [place] [address] Performed By: #### L [id number] #### [facility] CLIA [id number] [address] [place] [address] [place] Gamma globulin Elph [Mass/Vol] 1.24 g/dL Normal 0.53-1.51 [facility] Comment on above: Order Comment: Speci men Type: BLOOD SPECIMEN Ordering Facility: [facility] Address: [address] [place] [address] Performed By: #### L [id number] #### [facility] CLIA [id number] [address] [place] [address] [place] INTERPRETATION COMMENT FOR PROTEIN ELECTROPHORESIS See separate immunofixation report for characterization of monoclonal gammopathy. Normal [facility] Comment on above: Order Comment: Speci men Type: BLOOD SPECIMEN Ordering Facility: [facility] Address: [address] [place] [address] Performed By: #### L [id number] #### [facility] CLIA [id number] [address] [place] [address] [place] M-PROTEIN LOCATION Gamma Fraction 1 Normal [facility] Comment on above: Order Comment: Speci men Type: BLOOD SPECIMEN Ordering Facility: [facility] Address: [address] [place] [address] Performed By: #### L [id number] #### [facility] CLIA [id number] [address] [place] [address] [place] Protein Fractions [Interp] An M protein is identified on protein electrophoresis. Abnormal No definitive M protein is identified on protein electrophore sis. [facility] Comment on above: Order Comment: Speci men Type: BLOOD SPECIMEN Ordering Facility: [facility] Address: [address] [place] [address] Performed By: #### L [id number] #### [facility] CLIA [id number] [address] [place] [address] [place] Protein.monoclonal Elph [Mass/Vol] 0.75 g/dL High <=0.00 [facility] Comment on above: Order Comment: Speci men Type: BLOOD SPECIMEN Ordering Facility: [facility] Address: [address] [place] [address] Performed By: #### L [id number] #### [facility] CLIA [id number] [address] [place] [address] [place] SPE STAFF REVIEW Reviewed by Ladonna Zamudio MD [facility] Comment on above: Order Comment: Speci men Type: BLOOD SPECIMEN Ordering Facility: [facility] Address: [address] [place] [address] Performed By: #### L [id number] #### [facility] CLIA [id number] [address] [place] [address] [place] Phosphate SerPl-mCncon 09-14 Phosphate [Mass/Vol] 3.6 mg/dL Normal 2.7-4.8 [facility] Comment on above: Order Comment: Speci men Type: BLOOD SPECIMEN Ordering Facility: [facility] Address: [address] [place] [address] Performed By: #### K LFRS #### [facility] CLIA [id number] [address] [place] [address] [place] Prot SerPl-mCncon 09-15-2023 Protein [Mass/Vol] 6.7 g/dL Normal 6.3-8.0 [facility] Comment on above: Order Comment: Speci men Type: BLOOD SPECIMEN Ordering Facility: [facility] Address: [address] [place] [address] Performed By: #### 5 7021-8 #### [facility] CLIA [id number] [address] [place] [address] Urate SerPl-mCncon Urate [Mass/Vol] 7.0 mg/dL Normal 4.0-8.1 [facility] Comment on above: Order Comment: Speci men Type: BLOOD SPECIMEN Ordering Facility: [facility] Address: [address] [place] [address] Performed By: #### K RS #### [facility] CLIA [id number] [address] [place] [address] [place] [address] [place] B2 Microglob SerPl-mCncon Aixc-4-Nmwicwtjivuhu [Mass/Vol] 2.9 ug/mL Normal <3.1 [facility] Comment on above: Order Comment: Speci men Type: BLOOD SPECIMEN Ordering Facility: [facility] Address: [address] [place] [address] Result Comment: Beta -2 Microglobulin test is performed using the [employer] immunoturbidimetric method. Results obtained with different methods or kits cannot be used interchangeably. Performed By: #### 5 7021-8 #### [facility] CLIA [id number] [address] [place] [address] 10115 CBC W Auto Differential pane l (Bld)on 08-18-2023 Basophils (Bld) [#/Vol] 10*3/uL Normal <0.11 C [facility] Comment on above: Order Comment: Speci men Type: BLOOD SPECIMEN Ordering Facility: [facility] Address: [address] [place] [address] Performed By: #### 5 7021-8 #### [facility] CLIA [id number] [address] [place] [address]4446 Basophils/100 WBC (Bld) 0.2 % Normal C [facility] Comment on above: Order Comment: Speci men Type: BLOOD SPECIMEN Ordering Facility: [facility] Address: [address] [place] [address] Performed By: #### 5 7021-8 #### [facility] CLIA [id number] [address] [place] [address] Differential cell count method Nom (Bld) Auto Normal [facility] Comment on above: Order Comment: Speci men Type: BLOOD SPECIMEN Ordering Facility: [facility] Address: [address] [place] [address] Performed By: #### 5 7021-8 #### [facility] CLIA [id number] [address] [place] [address] 66782 Eosinophils (Bld) [#/Vol] 0.07 10*3/uL Normal <0.46 [facility] Comment on above: Order Comment: Speci men Type: BLOOD SPECIMEN Ordering Facility: [facility] Address: [address] [place] [address] Performed By: #### 5 7021-8 #### [facility] CLIA [id number] [address] [place] [address] 52935 Eosinophils/100 WBC (Bld) 1.6 % Normal [facility] Comment on above: Order Comment: Speci men Type: BLOOD SPECIMEN Ordering Facility: [facility] Address: [address] [place] [address] Performed By: #### 5 7021-8 #### [facility] CLIA [id number] [address] [place] [address] 46141 Erythrocyte distribution width (RBC) [Ratio] 14.3 % Normal 11.5-15.0 [facility] Comment on above: Order Comment: Speci men Type: BLOOD SPECIMEN Ordering Facility: [facility] Address: [address] [place] [address] Performed By: #### 5 7021-8 #### [facility] CLIA [id number] [address] [place] [address] 72502 Hematocrit (Bld) [Volume fraction] 34.8 % Low 39.0-51.0 [facility] Comment on above: Order Comment: Speci men Type: BLOOD SPECIMEN Ordering Facility: [facility] Address: [address] [place] [address] Performed By: #### 5 7021-8 #### [facility] CLIA [id number] [address] [place] [address] 26029 Hemoglobin (Bld) [Mass/Vol] 12.1 g/dL Low 13.0-17.0 [facility] Comment on above: Order Comment: Speci men Type: BLOOD SPECIMEN Ordering Facility: [facility] Address: [address] [place] [address] Performed By: #### 5 7021-8 #### [facility] CLIA [id number] [address] [place] [address] 47473 Immature granulocytes (Bld) [#/Vol] 10*3/uL Normal <0.10 [facility] Comment on above: Order Comment: Speci men Type: BLOOD SPECIMEN Ordering Facility: [facility] Address: [address] [place] [address] Performed By: #### 5 7021-8 #### [facility] CLIA [id number] [address] [place] [address] 54930 Immature granulocytes/100 WBC (Bld) 0.2 % Normal [facility] Comment on above: Order Comment: Speci men Type: BLOOD SPECIMEN Ordering Facility: [facility] Address: [address] [place] [address] Performed By: #### 5 7021-8 #### [facility] CLIA [id number] [address] [place] [address] 15173 Lymphocytes (Bld) [#/Vol] 1.84 10*3/uL Normal 1.00-4.00 [facility] Comment on above: Order Comment: Speci men Type: BLOOD SPECIMEN Ordering Facility: [facility] Address: [address] [place] [address] Performed By: #### 5 7021-8 #### [facility] CLIA [id number] [address] [place] [address] 75475 Lymphocytes/100 WBC (Bld) 41.8 % Normal [facility] Comment on above: Order Comment: Speci men Type: BLOOD SPECIMEN Ordering Facility: [facility] Address: [address] [place] [address] Performed By: #### 5 7021-8 #### [facility] CLIA [id number] [address] [place] [address] 52179 MCH (RBC) [Entitic mass] 33.8 pg Normal 26.0-34.0 [facility] Comment on above: Order Comment: Speci men Type: BLOOD SPECIMEN Ordering Facility: [facility] Address: [address] [place] [address] Performed By: #### 5 7021-8 #### [facility] CLIA [id number] [address] [place] [address] 26162 MCHC (RBC) [Mass/Vol] 34.8 g/dL Normal 30.5-36.0 [facility] Comment on above: Order Comment: Speci men Type: BLOOD SPECIMEN Ordering Facility: [facility] Address: [address] [place] [address] Performed By: #### 5 7021-8 #### [facility] CLIA [id number] [address] [place] [address] 40305 MCV (RBC) [Entitic vol] 97.2 fL Normal 80.0-100.0 C [facility] Comment on above: Order Comment: Speci men Type: BLOOD SPECIMEN Ordering Facility: [facility] Address: [address] [place] [address] Performed By: #### 5 7021-8 #### [facility] CLIA [id number] [address] [place] [address]2278 Monocytes (Bld) [#/Vol] 0.43 10*3/uL Normal <0.87 [facility] Comment on above: Order Comment: Speci men Type: BLOOD SPECIMEN Ordering Facility: [facility] Address: [address] [place] [address] Performed By: #### 5 7021-8 #### [facility] CLIA [id number] [address] [place] [address] 33386 Monocytes/100 WBC (Bld) 9.8 % Normal C [facility] Comment on above: Order Comment: Speci men Type: BLOOD SPECIMEN Ordering Facility: [facility] Address: [address] [place], [place] [address] Performed By: #### 5 7021-8 #### [facility] CLIA [id number] [address] [place] [address] 40513 Neutrophils (Bld) [#/Vol] 2.04 10*3/uL Normal 1.45-7.50 [facility] Comment on above: Order Comment: Speci men Type: BLOOD SPECIMEN Ordering Facility: [facility] Address: [address] [place] [address] Performed By: #### 5 7021-8 #### [facility] CLIA [id number] [address] [place] [address] 76106 Neutrophils/100 WBC (Bld) 46.4 % Normal [facility] Comment on above: Order Comment: Speci men Type: BLOOD SPECIMEN Ordering Facility: [facility] Address: [address] [place] [address] Performed By: #### 5 7021-8 #### [facility] CLIA [id number] [address] [place] [address] 60926 Nucleated RBC (Bld) [#/Vol] 10*3/uL Normal <0.01 [facility] Comment on above: Order Comment: Speci men Type: BLOOD SPECIMEN Ordering Facility: [facility] Address: [address] [place] [address] Performed By: #### 5 7021-8 #### [facility] CLIA [id number] [address] [place] [address] 66006 Nucleated RBC/100 WBC (Bld) [Ratio] 0.0 /100 WBC Normal [facility] Comment on above: Order Comment: Speci men Type: BLOOD SPECIMEN Ordering Facility: [facility] Address: [address] [place] [address] Performed By: #### 5 7021-8 #### [facility] CLIA [id number] [address] [place] [address] Platelet mean volume (Bld) [Entitic vol] 8.8 fL Low 9.0-12.7 [facility] Comment on above: Order Comment: Speci men Type: BLOOD SPECIMEN Ordering Facility: [facility] Address: [address] [place] [address] Performed By: #### 5 7021-8 #### [facility] CLIA [id number] [address] [place] [address] 06318 Platelets (Bld) [#/Vol] 108 10*3/uL Low 150-400 [facility] Comment on above: Order Comment: Speci men Type: BLOOD SPECIMEN Ordering Facility: [facility] Address: [address] [place] [address] Performed By: #### 5 7021-8 #### [facility] CLIA [id number] [address] [place] [address] 81430 RBC (Bld) [#/Vol] 3.58 10*6/uL Low 4.20-6.00 [facility] Comment on above: Order Comment: Speci men Type: BLOOD SPECIMEN Ordering Facility: [facility] Address: [address] [place] [address] Performed By: #### 5 7021-8 #### [facility] CLIA [id number] [address] [place] [address] 55567 WBC (Bld) [#/Vol] 4.40 10*3/uL Normal 3.70-11.00 [facility] Comment on above: Order Comment: Speci men Type: BLOOD SPECIMEN Ordering Facility: [facility] Address: [address] [place] [address] Performed By: #### 5 7021-8 #### [facility] CLIA [id number] [address] [place] [address] 20966 CNOVSPon 08-18-2023 CNOVSP Visit (SP) Office ([facility]) JON BAUER ([id number]) 1950 M Date Time Provider Department 08/18/23 2:30 PM VIMAL CRANDALL During your visit today, we recorded the following information about you: Temperature Pulse Respiration Blood pressure 97.3 degrees 81/minute 16/minute 155/78 Weight Height 117.6 kg 1.803 m Vimal Crandall MD 08/18/2023 7:15 PM Signed NAME: Jon Bauer CLINIC NO.: [id number] DATE OF SERVICE: August 18, 2023 (aRz) Some elements in this clinic note that are critical to medical decision making have been carefully reviewed and included from a prior clinic note dated: July 13, 2023 (Raz) Additional Clinicians involved in Jon Bauer's care: Dr. Lomeli, Dr. Frankie Campbell DIAGNOSIS: Multiple myeloma followup ASSESSMENT: This is a 72 year old man diagnosed with an IgG lambda monoclonal gammopathy in 2019 and was then noted to have rising M-spike and PET scan documented a sternal lesion. 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 ISS and R-ISS stage II disease. He had a partial response to induction therapy and has recovered following Autologous stem cell infusion. Up to date on post transplant vaccinations. Mild thrombocytopenia - Stable for now. Additional medical issues include: - Immunodeficiency following HDSCT and patient will continue Acyclovir and post-transplant immunizations per Infectious Disease protocol - Renal failure is improving and we will continue monitoring - Neuropathy is stable - Diabetes mellitus managed by PCP is elevated from steroids. - Hepatocellular carcinoma discovered August 2022, resected October 2022. Initial M-Protein is 3.31 prior to Induction Current M-spike is 0.34 as of 06/09/2022 10/08/2022 - resection of Liver mass right lobe [id number] HCC, 3 cm, G2, + LVI . Will undergo serial observation. No current adjuvant therapy recommended. No recurrence on scans February 2023. (03/23/2023) Held his Revlimid for a week while he is on Bactrim as he is mildly neutropenic. My suspicion is that this is because of Bactrim. This may limit his ability to use this in the future. PLAN: Continue Revlimid RTC in 4 weeks Labs same day Keep follow up with urology in October May need to order ultrasound kidney prior to that visit - ___ HPI: CASE HISTORY: Reverse Chronological Order 05/24/2023 - MRI Liver: Postsurgical change as described. No LR-5/OPTN Class 5 lesions. 03/10/2023 - US Kidney Bladder: 1.7 cm RIGHT renal lesion is at least a partially complex cystic lesion but may have a solid peripheral component. Renal neoplasm is not excluded. 02/10/2023 - CT liver with IV contrast: Since 10/01/2022, interval partial right hepatectomy. No findings to suggest residual or recurrent disease. A 1.1 cm hypodensity within the right renal upper pole is indeterminate 11/24/2022 - resumed Rev maint. 10/08/2022 - resection of Liver mass right lobe [id number] HCC, 3 cm, G2, + LVI . 06/28/2022 - held Revlimid due to recurring infections. 07/30/2021 - Resumed Rev at 5mg daily due to thrombocytopenia. 07/02/2021 - M-spike 0.36 12/26/2020 - Rx for Maintenance Rev 10mg daily 12/16/2020 - Hospitalization for SBO with intractable nausea 09/19/2020 - HDCT Auto transplant (D0). 08/24/2020 - Pretransplant testing revealed a 24-hour urine with 0.02 gm M spike. Serum M protein was 0.61, serum kappa light chains 15.3, serum lambda light chain 17.0, serum kappa/lambda ratio 0.90 (normal 0.26-1.65) 08/19/2020 - Bone marrow examination 40% cellular with less than 5% plasma cells and normal cytogenetics 02/18/2020-08/25/2020 - RVD 02/01/2020 - PET/CT: No FDG avid neoplastic process in the neck, chest, or A/P. EXTREMITIES/SKELETON: 1.2 cm mildly FDG-avid lytic lesion in the sternum with SUV max of 2.7, may represent a site of active myeloma. No FDG avid destructive osseous lesions elsewhere. Specifically, no hypermetabolic lesions in humeral heads or femurs. 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 06/08/2019 - Bone Survey: Lytic lesions involving bilateral humeral heads and distal right femur Updated Visit, August 18, 2023: Jon returns today for a follow up. He had surgery for trigger finger - pain is much better but he notes some stiffness. He has a follow up scheduled to determine his need for PT. He has restarted Revlimid (more content not included)... Normal [facility] Calcium.ionized [Moles/Vol]o n 08-18-2023 Calcium.ionized (Bld) [Mass/Vol] 1.18 mmol/L Normal 1.08-1.30 [facility] Comment on above: Order Comment: Speci men Type: BLOOD SPECIMEN Ordering Facility: [facility] Address: [address] [place] [address] Performed By: #### 5 7021-8 #### [facility] CLIA [id number] [address] [place] [address] Calcium.ionized adjusted to pH 7.4 (Bld) [Moles/Vol] 1.17 mmol/L Normal 1.08-1.30 [facility] Comment on above: Order Comment: Speci men Type: BLOOD SPECIMEN Ordering Facility: [facility] Address: [address] [id number] Performed By: #### 5 7021-8 #### [facility] CLIA [id number] [address] [place] [address] 02563 Comprehensive metabolic 2000 panelon 08-18-2023 Albumin [Mass/Vol] 4.0 g/dL Normal 3.9-4.9 [facility] Comment on above: Order Comment: Speci men Type: BLOOD SPECIMEN Ordering Facility: [facility] Address: [address] [place], [place] [address] Performed By: #### 5 7021-8 #### [facility] CLIA [id number] [address] [place] [address] 12233 ALP [Catalytic activity/Vol] 97 U/L Normal 38-113 [facility] Comment on above: Order Comment: Speci men Type: BLOOD SPECIMEN Ordering Facility: [facility] Address: [address] [place] [address] Performed By: #### 5 7021-8 #### [facility] CLIA [id number] [address] [place] [address] 45064 ALT [Catalytic activity/Vol] 47 U/L Normal 10-54 [facility] Comment on above: Order Comment: Speci men Type: BLOOD SPECIMEN Ordering Facility: [facility] Address: [address] [place] [address] Performed By: #### 5 7021-8 #### [facility] CLIA [id number] [address] [place] [address] 96158 Anion gap [Moles/Vol] 10 mmol/L Normal 9-18 [facility] Comment on above: Order Comment: Speci men Type: BLOOD SPECIMEN Ordering Facility: [facility] Address: [address] [place] [address] Performed By: #### 5 7021-8 #### [facility] CLIA [id number] [address] [place] [address] 28628 AST [Catalytic activity/Vol] 43 U/L High 14-40 [facility] Comment on above: Order Comment: Speci men Type: BLOOD SPECIMEN Ordering Facility: [facility] Address: [address] [phone] Performed By: #### 5 7021-8 #### [facility] CLIA [id number] [address] [place] [address] Bilirubin [Mass/Vol] 0.3 mg/dL Normal 0.2-1.3 [facility] Comment on above: Order Comment: Speci men Type: BLOOD SPECIMEN Ordering Facility: [facility] Address: [address] [place] [address] Performed By: #### 5 7021-8 #### [facility] CLIA [id number] [address] [place] [address] 30645 Calcium [Mass/Vol] 9.4 mg/dL Normal 8.5-10.2 [facility] Comment on above: Order Comment: Speci men Type: BLOOD SPECIMEN Ordering Facility: [facility] Address: [address] [place], [place] [address] Performed By: #### 5 7021-8 #### [facility] CLIA [id number] [address] [place] [address] 86505 Chloride [Moles/Vol] 106 mmol/L High 97-105 [facility] Comment on above: Order Comment: Speci men Type: BLOOD SPECIMEN Ordering Facility: [facility] Address: [address] [place] [address] Performed By: #### 5 7021-8 #### [facility] CLIA [id number] [address] [place] [address] CO2 [Moles/Vol] 25 mmol/L Normal 22-30 [facility] Comment on above: Order Comment: Speci men Type: BLOOD SPECIMEN Ordering Facility: [facility] Address: [address] [place] [address] Performed By: #### 5 7021-8 #### [facility] CLIA [id number] [address] [place] [address] Creatinine [Mass/Vol] 1.21 mg/dL Normal 0.73-1.22 [facility] Comment on above: Order Comment: Casie early Type: BLOOD SPECIMEN Ordering Facility: [facility] Address: [address] [place], [place] [address] Performed By: #### 5 7021-8 #### [facility] CLIA [id number] [address] [place] [address] 48590 Creatinine and Glomerular filtration rate.predicted panel (S/P/Bld) 64 mL/min/1.73m??? Normal >=60 [facility] Comment on above: Order Comment: Casie early Type: BLOOD SPECIMEN Ordering Facility: [facility] Address: [address] [place] [address] Result Comment: Deepthi mated Glomerular Filtration Rate (eGFR) is calculated using the 2020 CKD-EPI creatinine equation. This equation utilizes serum creatinine, sex, and age as parameters. The creatinine assay has traceable calibration to isotope dilution-mass spectrometry. Refer to KDIGO guidelines for clinical interpretation. In patients with unstable renal function, e.g. those with acute kidney injury, the eGFR may not accurately reflect actual GFR. Performed By: #### 5 7021-8 #### [facility] CLIA [id number] [address] [place] [address] 79628 Glucose [Mass/Vol] 298 mg/dL High 74-99 [facility] Comment on above: Order Comment: Casie early Type: BLOOD SPECIMEN Ordering Facility: [facility] Address: [address] [place], [place] [address] Result Comment: The [place] Diabetes [employer] (ADA) provides guidance for cutoff values for fasting glucose and random glucose. The ADA defines fasting as no caloric intake for at least 8 hours. Fasting plasma glucose results between 100 to 125 mg/dL indicate increased risk for diabetes (prediabetes). Fasting plasma glucose results greater than or equal to 126 mg/dL meet the criteria for diagnosis of diabetes. In the absence of unequivocal hyperglycemia, results should be confirmed by repeat testing. In a patient with classic symptoms of hyperglycemia or hyperglycemic crisis, random plasma glucose results greater than or equal to 200 mg/dL meet the criteria for diagnosis of diabetes. Reference: Standards of Medical Care in Diabetes 2016, [place] [employer]. Diabetes Care. 2016.39(Suppl 1). Performed By: #### 5 7021-8 #### [facility] CLIA [id number] [address] [place] [address] 14810 Potassium [Moles/Vol] 3.9 mmol/L Normal 3.7-5.1 [facility] Comment on above: Order Comment: Speci men Type: BLOOD SPECIMEN Ordering Facility: [facility] Address: [address] [place], [place] [address] Performed By: #### 5 7021-8 #### [facility] CLIA [id number] [address] [place] [address] 83977 Protein [Mass/Vol] 6.9 g/dL Normal 6.3-8.0 [facility] Comment on above: Order Comment: Speci men Type: BLOOD SPECIMEN Ordering Facility: [facility] Address: [address] [place], [place] [address] Performed By: #### 5 7021-8 #### [facility] CLIA [id number] [address] [place] [address]6026 Sodium [Moles/Vol] 141 mmol/L Normal 136-144 [facility] Comment on above: Order Comment: Speci men Type: BLOOD SPECIMEN Ordering Facility: [facility] Address: [address] [place] [address] Performed By: #### 5 7021-8 #### [facility] CLIA [id number] [address] [place] [address] 94992 Urea nitrogen [Mass/Vol] 23 mg/dL Normal 9-24 [facility] Comment on above: Order Comment: Speci men Type: BLOOD SPECIMEN Ordering Facility: [facility] Address: [address] [place] [address] Performed By: #### 5 7021-8 #### [facility] CLIA [id number] [address] [place] [address] 31551 IMMUNOFIXATION SCREEN, SERUM on 08-18-2023 INTERPRETATION (MPA) Atypical restricted bands are present in the IgG and lambda regions. Consistent with IgG lambda monoclonal gammopathy. Normal [facility] Comment on above: Order Comment: Speci men Type: BLOOD SPECIMEN Ordering Facility: [facility] Address: [address] [place] [address] Performed By: #### 5 7021-8 #### [facility] CLIA [id number] [address] [place] [address]191 MPA RESULT M protein is present. Abnormal No M p rotein is identified. [facility] Comment on above: Order Comment: Speci men Type: BLOOD SPECIMEN Ordering Facility: [facility] Address: [address] [place] [address] Performed By: #### 5 7021-8 #### [facility] CLIA [id number] [address] [place], [place] [id number] STAFF REVIEW ([facility]) Reviewed by Bruce Vicente MD, Ph.D ([id number]) Normal [facility] Comment on above: Order Comment: Speci men Type: BLOOD SPECIMEN Ordering Facility: [facility] Address: [address] [place] [address] Performed By: #### 5 7021-8 #### [facility] CLIA [id number] [address] [place] [address] 69578 IMMUNOGLOBULINS,IGG,IGA,IGMo n 08-18-2023 IgA [Mass/Vol] 168 mg/dL Normal 70-400 [facility] Comment on above: Order Comment: Speci men Type: BLOOD SPECIMEN Ordering Facility: [facility] Address: [address] [place] [address] Performed By: #### K RS #### [facility] CLIA [id number] [address] [place] [address] [place] IgG [Mass/Vol] 1343 mg/dL Normal 700-1600 [facility] Comment on above: Order Comment: Speci men Type: BLOOD SPECIMEN Ordering Facility: [facility] Address: [address] [place] [address] Performed By: #### K LFRS #### [facility] CLIA [id number] [address] [place] [address] [place] IgM [Mass/Vol] 23 mg/dL Low 40-230 [facility] Comment on above: Order Comment: Speci men Type: BLOOD SPECIMEN Ordering Facility: [facility] Address: [address] [place] [address] Performed By: #### K LFRS #### [facility] CLIA [id number] [address] [place] [address] [place] KAPPA/ORTIZ,FREE,SERon 2023 Immunoglobulin light chains.kappa.free (S) [Mass/Vol] 44.2 mg/L High 3.3-19.4 [facility] Comment on above: Order Comment: Speci men Type: BLOOD SPECIMEN Ordering Facility: [facility] Address: [address] [place] [address] Result Comment: Rare ly, increased serum free light chains levels may not be detected or accurately quantified due to prozone phenomenon or in high viscosity samples using this immunoturbidimetric assay. Correlation with other laboratory results and clinical findings is recommended. The [place] Free Light Chain was performed using the Binding Site Optilite immunoturbidimetric method. Result obtained with different assay methods or kits cannot be used interchangeably. Performed By: #### K LFRS #### [facility] CLIA [id number] [address] [place] [address] [place] Immunoglobulin light chains.kappa/Immunoglob ulin light chains.lambda (S) [Mass ratio] 1.11 Normal 0.26-1.65 [facility] Comment on above: Order Comment: Speci men Type: BLOOD SPECIMEN Ordering Facility: [facility] Address: [address] [place] [address] Performed By: #### K LFRS #### [facility] CLIA [id number] [address] [place] [address] [place] Immunoglobulin light chains.lambda.free [Mass/Vol] 39.8 mg/L High 5.7-26.3 [facility] Comment on above: Order Comment: Casie early Type: BLOOD SPECIMEN Ordering Facility: [facility] Address: [address] [place] [address] Result Comment: Rare ly, increased serum free light chains levels may not be detected or accurately quantified due to prozone phenomenon or in high viscosity samples using this immunoturbidimetric assay. Correlation with other laboratory results and clinical findings is recommended. The Lambda Free Light Chain was performed using the Binding Site Optilite immunoturbidimetric method. Result obtained with different assay methods or kits cannot be used interchangeably. Performed By: #### K LFRS #### [facility] CLIA [id number] [address] [place] [address] [place] LDH SerPl-cCncon 08-18-2023 LDH [Catalytic activity/Vol] 186 U/L Normal 135-225 [facility] Comment on above: Order Comment: Casie early Type: BLOOD SPECIMEN Ordering Facility: [facility] Address: [address] [place] [address] Result Comment: Hemo lysis present. The origin of the hemolysis, in vitro versus an in vivo hemolytic process, cannot be distinguished via this assay alone. In vitro hemolysis may lead to non-physiological (spurious) elevation in lactate dehydrogenase (LDH) results. The result should be interpreted in context of the clinical setting and other test results. Suggest reorder as clinically indicated. Performed By: #### 5 7021-8 #### [facility] CLIA [id number] [address] [place] [address] PROTEIN ELECTROPHORESIS SERU M (P)on 08-18-2023 Albumin [Mass/Vol] 3.64 g/dL Normal 3.43-5.41 [facility] Comment on above: Order Comment: Casie early Type: BLOOD SPECIMEN Ordering Facility: [facility] Address: [address] [place] [address] Performed By: #### L [id number] #### [facility] CLIA [id number] [address] [place] [address] [place] Alpha 1 globulin Elph [Mass/Vol] 0.28 g/dL Normal 0.18-0.43 [facility] Comment on above: Order Comment: Speci men Type: BLOOD SPECIMEN Ordering Facility: [facility] Address: [address] [place] [address] Performed By: #### L [id number] #### [facility] CLIA [id number] [address] [place] [address] [place] Alpha 2 globulin Elph [Mass/Vol] 0.80 g/dL Normal 0.42-0.98 [facility] Comment on above: Order Comment: Speci men Type: BLOOD SPECIMEN Ordering Facility: [facility] Address: [address] [place] [address] Performed By: #### L [id number] #### [facility] CLIA [id number] [address] [place] [address] [place] Beta globulin Elph [Mass/Vol] 0.69 g/dL Normal 0.61-1.17 [facility] Comment on above: Order Comment: Speci men Type: BLOOD SPECIMEN Ordering Facility: [facility] Address: [address] [place] [address] Performed By: #### L [id number] #### [facility] CLIA [id number] [address] [place] [address] [place] Gamma globulin Elph [Mass/Vol] 1.18 g/dL Normal 0.53-1.51 [facility] Comment on above: Order Comment: Speci men Type: BLOOD SPECIMEN Ordering Facility: [facility] Address: [address] [place] [address] Performed By: #### L [id number] #### [facility] CLIA [id number] [address] [place] [address] [place] INTERPRETATION COMMENT FOR PROTEIN ELECTROPHORESIS See separate immunofixation report for characterization of monoclonal gammopathy. Normal [facility] Comment on above: Order Comment: Speci men Type: BLOOD SPECIMEN Ordering Facility: [facility] Address: [address] [place] [address] Performed By: #### L [id number] #### [facility] CLIA [id number] [address] [place] [address] [place] M-PROTEIN LOCATION Gamma Fraction 1 Normal [facility] Comment on above: Order Comment: Speci men Type: BLOOD SPECIMEN Ordering Facility: [facility] Address: [address] [place] [address] Performed By: #### L [id number] #### [facility] CLIA [id number] [address] [place] [address] [place] Protein Fractions [Interp] An M protein is identified on protein electrophoresis. Abnormal No definitive M protein is identified on protein electrophore sis. [facility] Comment on above: Order Comment: Speci men Type: BLOOD SPECIMEN Ordering Facility: [facility] Address: [address] [place] [address] Performed By: #### L [id number] #### [facility] CLIA [id number] [address] [place] [address] [place] Protein.monoclonal Elph [Mass/Vol] 0.74 g/dL High <=0.00 [facility] Comment on above: Order Comment: Speci men Type: BLOOD SPECIMEN Ordering Facility: [facility] Address: [address] [place] [address] Performed By: #### L [id number] #### [facility] CLIA [id number] [address] [place] [address] [place] SPE STAFF REVIEW Reviewed by Bruce Vicente MD, Ph.D ([id number]) Normal [facility] Comment on above: Order Comment: Speci men Type: BLOOD SPECIMEN Ordering Facility: [facility] Address: [address] [place] [address] Performed By: #### L [id number] #### [facility] CLIA [id number] [address] [facility] [address] [address] [place] Phosphate SerPl-mCncon 08-17 Phosphate [Mass/Vol] 3.3 mg/dL Normal 2.7-4.8 [facility] Comment on above: Order Comment: Speci men Type: BLOOD SPECIMEN Ordering Facility: [facility] Address: [address] [place] [address] Performed By: #### 5 7021-8 #### [facility] CLIA [id number] [address] [place] [address]73[address] Prot SerPl-mCncon 08-18-2023 Protein [Mass/Vol] 6.6 g/dL Normal 6.3-8.0 [facility] Comment on above: Order Comment: Speci men Type: BLOOD SPECIMEN Ordering Facility: [facility] Address: [address] [place] [address] Performed By: #### 5 7021-8 #### [facility] [place] [id number] [address] [place] [address] 31260 Urate SerPl-mCncon Urate [Mass/Vol] 7.5 mg/dL Normal 4.0-8.1 [facility] Comment on above: Order Comment: Speci men Type: BLOOD SPECIMEN Ordering Facility: [facility] Address: [address] [place] [address] Performed By: #### 5 7021-8 #### [facility] IA [id number] [address] [place] [address] Coding Summaryon 07-20-2023 Coding Summary HTMLBase 64 WzibgsmeAGf7fXd+PGhlYW Q+VP5KXPVoF04abOXbaY3e T5DPEGoNEndyRUKIAIpZJf WgxiSuTM3mfZPbIIZj IC8+JX8qJCVoUsvocJTxx5 C3dLR5F52gxh6nMHqzqHO0 UVYtWqUlodgfo9qrwZz2CY cuNmluOyBt CRMnoU68KRO0yM31Ud09cS NeeDTal8oivOk5PcRlUFVr IAI5eMnwGNefu5LvABKjC3 8leTTfm8J9 NNAklRdhxGWuDbRygHZ0kC 8tHSkijcddj4lvfwcrBem1 fw94wZAqx4P6uEI1Z8Uooz F8CLZuuFHl AmbqxVGFyG3ryhnmf8uqpf esRsTbQBClYLq6PAd3CWCs qUueSkWpXD50DUW4KAYvhz LrA1LdHBQi dVndDhX1z4N5Ud0KC1BBNo rdL8FNJGXYQOkqsEK+PC90 ce35Y3YdUrviWic5XIZfEO H1xWQ3kN6u OJMkPQhgd9X2pLG7C1Vewy Teel2pz0fvMACfYQhqZ86v nYMmz6B5XROxaJE2LHEorA myXsQsoC95 Oyc+NOOhlAdhn3UlXowct3 vmu1mmrNf0BhnvHHQkdcJp qBcnGGS1r7NmWm7jJQKvoA C2hSD8rA9e VlFiXnF2EJfsZ533KrXheG BmHajoN10cF7NeiKT+PHRy Iqp2UOJrxFnhZL4bB2TiWJ RpbmctbGVm gHuuRR2xVBZrcmrzPYTzbJ 4vLANbD4j5IcFqRpJ2XAfa E4QyOSBqvvzeRe05rS2xCn ItXlX9GNwk L7QnbpL8ARZpgCGxZCjyFR F2L02qy8O8ILQoGTMrHLN1 cTD9rU2txUamepwsiOHusX sgdmVydGlj MMyoIOiuT530ALGxrXipVz NvZGluZyBEYXRlOiAgMDMv MTMvMjAyNDwvdGQ+PHRkIH M6mHjbWGCb dTAaGKxbDx9rgNoycTaaIW 0uGFCppmhaQJJgsQ8eBYHb mTWydCvrJP3qQLEthitki2 14WbHdPTK2 RZGfpNAmB9KryU6cRwZoOR GkVVQoT7WkkQVnWEmhN603 ACgqJsV4PPYpfsJtI5AsAC FsaWduOiB0 s4W9Ql8Re8VgfltgW0AndR QmOyMcQbkmLSi6R5IwNmmh dHI+IX75PZLzHO70DHv7TG Z8lAwtBDjd LCVyF4ZybD8nPdLcQCZcMQ RkOyc+PHRhYmxlIHdpZHRo OWjgQGXoWtPnjGinTA5sMb 9yZGVyLWNv uWhgzMFvZlBuf3kuRLKpWD gvRB4yyDylA0JbaWW9BJLt w3f0Gw32H60gG6KqmGH+PG AsyFT6rQU6 cE5gAyGqOtY3KFaqP514Qy GkmIRrBdwsa5ktl1ssxMs4 DrW0NBOlebZrzGvgXWI9g3 FeYs44T06b IHdpZHRoPSIxNSUiIHZhbG rydp8zbO9eEu1+PGNvbCB3 zDH6iK4iBgFiGzQ0ZPntO8 49InRvcCIv Onhja0fgm8sjcCp0XjFuDK TphaBloGhcZBL5y2XlPu82 X2YlsThwq4KzCbi7ls60aF Clb9D3gVM4 W9LgJZWpwifyoWGzpWteFJ 0bPODhuazwGGYvdQ8eCJJp A8k2FjSrWmZ1IUehS5Jnux J8GCPofAWq SZKspGBWjJ7hqgjxo8mvie nxYjDxAHDvRWx6UOj8LLPl wEzsIjPlEQL8JyU5BXM6sE XzsZ7mrXdq nxakqA8wOjj+GOS2wFKxqN CXTW5cUlnygCM+PHRkIHN0 xKnaYIdoIANvuV1tMRLrI7 e1YxTqJdN2 YNvlF8TxhnK7HYVhsQNbWM FosYHUnP7pqbnlg3gadlpf MsNbUFNuJRv7YNf1SNKrdA duOiBsZWZ0 ApR1LAS5iBPcsI9idYxjwa wauI3tBjz+QmlydGggRGF0 MKl3R7EiJko2EQKzuKkzGG 0ncGFkZGlu Fe6ztEigeSnbXJ0aYUIpzo yja337EnKwd8gqGTOorWLh ZLlyRDB3Z89rz1Y7MVJeHS OiDFS0vRM4 xL1jwIsiulqimLNuoKtyfl EnzPepFGfhPPbaX550NAMn hJbtEjHiNMi8N2VxKmt7HS IaeBdbJG7k iFGyZDsyPv2dvVnpwLqnBJ 4eYYCkbdmpl792AtJqi1qi XAUvgELcLPliLDZ5G86ju7 V0UVUkLOSk FFE8nOG3eD1ueAqgxdwcoJ VmdDsgdmVydGljYWwtYWxp R854JBNnsCqhMbQaqAn7Q2 YfSgh0QTPr yQfxFQ4jhEVyCOciOo0jfL uuuPoxUD3gAMFnmmcwm520 JdBez4xlBGDcyYHePKtdBW J3X93qc8A5 JMAaISEhIDV3cLN2aL3dlR lnbjogbGVmdDsgdmVydGlj YGzoPHtuI322DLConRqdCl BhdGllbnQg FXfpWCq2S8QxBhazeXG+PC 70VKMyJK79vPSamWGmq6hq vVo1BpSsCOJwLRL1rLxwPI tew7AtQXAg R97diNPwu6E2QBVjuUesmY EnJxXerDE9jN1dCVeivcca x6yytygwBnlrs5vqpw83qO 15L23eSZrr ZHRoPSIzMCUiIHZhbGlnbj 1riN0yUu6+SXXarEE7vFJ1 lC7sIVDrTcO0GAvqE268Vr RvcCIvPjxj t5jea3lcxWt3SxP8AOCytf TlqTuiPCN5i0DmXu35K23u IHdpZHRoPSIyMCUiIHZhbG uceq0lhJ4f Ii8+JNQcaCJ1sPB8mS4jYx ZfPuM4RMtbW265AvTkqOFh PjzxR67nQ4AgeUD+PHRyPj e3MYHqzNqy OC2loCGlJGciEf3wKUF9Ll ApReGaBYzjN6WrVMNfkhwj kdqshHP8DBGjBSJwcD06Cg 9udDogMTBw mBKCvR6solsol3nsuprcRk WcLUSdFYx1WBv0NTZhyXvd CmFhCTG7PvS7FNO1cTDwxU 1hbGlnbjog iA2eH7BmUYRdprvjWm94cB 3xVeRoZbO1ZDxrQmc+T1ZF Iy6CVENvULaYVqfrJQqdeI Q+PHRkIHN0 gInkFHofDDOfaX8vPMDmC7 r2ZbAgVxJ2TUzyC1WyIYAi sqrgKy81xP4mBdQoLeU4LG roV6IkewF1 LAZzuUTaFNswSPZ4C25qo4 A5SZZnBIUuIIT0cWW3fY7l bGlnbjogbGVmdDsgdmVydG ljYWwtYWxp I292KULfaGnbVrG5WaA6Ke Z6BHJ6G9DeLbz7IEGdzOrl DX8enVPxEIcbOv8ljEpwpI kcGX0pEYMo kuvxPMXpiO0hGSFbeIVxgD kvSK3hVACmikhjv354LdCu MZB3MQVxzOFpB0EhoA0oPr AjMDAwMDAw H6QlgRIjEFpvJ053LUzvZp Y7BRQtiiCnI2OpHAOozDmb PoK8z6S4Jp27QUWREWYxwa wvdGQ+PHRk IGD1jDmePRzgWYSdyX8tQO KjN2t5DfMtWeB6CKmhU4Wo ILSxystqCx45yP9hCmAuGe S5KHfgF3Fw ruF8PHHhdODhWLlhDTJ2F3 7tq2X5HGVdLAKxGOS1mDD6 dY9vlRsdllxwsDPwgHwilx VydGljYWwt MSwjD892VCKyoKdpTo8DGY O8N7GvSgg4ETIurNqiXB9u mMSxVRadGy4luFybfOwmOV 4wNTBpbjtw EHAwjK6iDDDhtFFcfBpjMG 2kJYEyrnano714RxPnRAH7 MFApfTWzM6OekO3mXyRiQO ZfMNVvB1Er rCHzVBrtN384GXjsJvB4LC ZswlUxS8CaDWZbaEluHaU1 k3N0Tf7YONlqY7BfW9BxhV wvdGQ+PC90 dq49O4VpUpejGmr6AEYiBU A7dTY4xR7lTJUkJPluq4N2 dKY7M8YbisZdqh0lt6qfGY JqJEvmK19y fWSnu4K8EBFxeZL1QYWunX zvNmNbkQ91Tqs+PGNvbGdy b5XwVwtwe9fyl4agrFh3Yy MwJSIgdmFs wFhsSJT3a8CeAc99M92vZB dpZHRoPSIzMCUiIHZhbGln rg7goE4tDc3+QGGqvZY8qC W4iR5fTzIt BiP3AKiiM657MwNepLLyOe wxs7dyz2fgqQg3SrAuEEVa zlTxxVwfGVA3c1TdDb19U9 GfgGpvq2Dy Abz6bk42lCYpy2S6dZQ1V4 NuKZDqeqwdlRVqgEyuKE4y VLCzjinbNCGewS8lMVXcE4 h5RnLpMmU2 MHueY8QabwZ1WZNbgJWdKB FifXLGqC0czdzyu8armtma XsShXSFeOSk2XOb6ELFdhT duOiBsZWZ0 IgQ0OGI5iJSmvP0ybOgark cryA1lEyv+VKh2p2sqgMMg ZD2txSF7GR57FU30eEWmb2 D1ySZ1M0Ox HXWxelvkngtfsOD9NAIoXI CftA94Sv0uhAtnAn1qZWKu XXS4CMBnhNBwR1EusY2wDo AjMDAwMDAw M1VxlGDwFVdfD948TBnlHg J5STExebGlU7TiGEVhxPxj VbA5f3R2Ed2ERF14KS16XF 01gNZqm9F9 rLK7R3FnOGZdxjcdgawrwX W3SFPzGGCkwF37Sj8ijOvf Vq3uLERhRNZ3DDOviSOrG8 PtsV6kUnGe FHXvSXDgS3MavCIdYPvfL7 28UZohCoB2EGSosaWyC3Qp ITNgcRojHnE5a0V2Uv5OPk 76CX67DU78 yHXce9E6iCO8A2SaXRYgsb yrqzmayFF0BXVzCDAcaC10 Lt7poSjlYo3vBWJvNIM8QZ LatDPuK5Yr uG5hXqLiJHUlATMsF1IktX SpXIyuZ450HYbpDmA9BGDq dtFwK0FmNDHfkPmiVuS6r2 B2Af6PKEuv qkx9G1UtQfyltLM+PC90YW VoCO08qXRzvHGpz4pypVg9 FfGjIBYbMEK3sNbySFryy3 GkKMLiM93s bGF (more content not included)... [facility] Coding Summary HTMLBase 64 LuanlwqsWBo5tSm+PGhlYW Q+ZH0JIVUfI48zuZCyaG1s F2MJLVvJCaxzDTBJVUaZMe LkseVjJY2djZNaYBGp IC8+IH2kSTFePvdglSMur2 F3nNF8M77fvf6dCHzpzMQ2 IDBpYgVsytltb1colAj1HS cuNmluOyBt VBRmgD18TII2pK31Qg99eK PfoOTgb4kfyKk7EpFiJGPw TIM5bDlqZReyf2NtCQLkE4 5blISyk0C3 IHQloVdbrHJlVtYrjNP3vL 3dLLfhumqla0phbbhePwo1 mx37yVGss7M1wHI0O1Rvrz Q8HEGepRCp BuqmvONTkP4vmjhln6nhaa pbDlAvUMBkWFn2IHn3RLRk yHgeYaSaOQ28MGR8BQXbja KfP7CzQAMw wIhsCyH7z8W0Nr1QR4ERBq bvB6FYLSTESObqzPU+PC90 di62E6XlZxdbEmw5CYObFR E0kMY7lC9x YUQoNMpfz4K3nHT9F2Oars Hguf0pf4aiCZNaCIogB46q oHLvi2H1WSHvoWS5KARerQ coLvRtqL75 Oyc+ATIuvWdgc0OyDhxwk1 dtf0wcnMu7DaxdKLIswmRh pUpyMQC3e2EsOb0nADJsyI K6dTY9wX5t KiPoUeV5GGrvO749AnEbpM MgAhloF24sK1OxmHZ+PHRy Rqh5DWFvvFmeJI3fH5KrYD RpbmctbGVm qDhbXI7kQQZtfplaOZNrhA 3cPZVdW1h1LtUxVnD9DOyh M1LiLNAnnryqJc63mX3dZq YyHcS9QNpp T9SmnyV8YJYcnNDrOYzfOU U3W46no8D3CBBqCXHuTPT7 wGI4lK1siLfcwamuvPUlqB sgdmVydGlj PGauXHjfK186PPOwaHkkOp NvZGluZyBEYXRlOiAgMDMv MTMvMjAyNDwvdGQ+PHRkIH K5hGuiPNIn cHDmJTbpUj2byBjysSclXZ 1rXGCssikbISIrpQ8oZBAp rFFfzIxvMO9vBTQcyfvwp0 18HoWzNPG9 QQGkcSIxC1SdnS3zJtSqER NyEJLeN6NleASoJVtvN563 OZfnNcE1HCYwfmZmY1LsOO FsaWduOiB0 t8V1Nf6Vy4OtfcapY3ZgeX BoFiNlZqixWCe3D7WcQvvd dHI+KM60LQJmIH75KXs1ZA G6xAusDFmc EWSyS5OfxB9kHxOySAWfKD RkOyc+PHRhYmxlIHdpZHRo MUgiPVRxByMcdMbwUH7nHa 9yZGVyLWNv sCpkqMPhIcOhd8lxHHRzRR foKP1fqHzhS2CbtYM2COFr a5b2Pp72T59zR9QkxYY+PG OyzGX6vXN5 nT7wNrTeLaI6YAzwB405Pj OpfGBkFtlox5boo8wrqUe5 LfQ5OBYwajIwjVxwLCC1t2 OvQa49U80z IHdpZHRoPSIxNSUiIHZhbG puhf1edB0nTj3+PGNvbCB3 rWZ2hH5bRwSjKwA2DPyrU5 49InRvcCIv Pokls5rxr2dkwXl8HoChRZ AotoIbiIxwYHX6a0MbUl68 H1ScnZpqa2OyFjv0gu67qQ Kzv5L8vWM1 Q3GxJUOppvvfhFItqJbyIL 7lNTNeioewHTQgoX3nXJCt M0k8DhLwOdA5GAwnF9Edax Z9RFQmzFZv UAKglWXXiG4yycfqb1csbz hoFuPwCWGwSOk0BHi6HPUz sBwuCzCvWKA1OvL5OOZ0mH BgzI9nxZfp bfjgxH1tDqp+TDM9mVMudC SRED1wNjlaeVW+PHRkIHN0 fPjgNZmbBOPqlA6nWGVeM0 m0TfIvOvO0 YVibX6WthdM2LZYvxTTuBA UkoFLZjP4xbzqgi8ooilex JzSnVRKeNYn6USp0NCIspH duOiBsZWZ0 OaH4IXZ7bIQffB9liCvwnr sieN9sZpy+QmlydGggRGF0 NOj4O3HhYib5UXVaxLrzBX 0ncGFkZGlu Gi5yxOmmaUmcBD5cFUMhkt rhj077DaLdo8gtBWEzhJWs FRaxLLX7H38hz7E1GZXeSL HcHHC4gRW5 oT2zeHuopaqbfCEtcUaljj YnyOejKVyjVGvoF533USVa jTyqDuFcKSs3P4WfIjs2KV PeoBjkKQ4e zMQiTVzyBh2wuMuvqFmoKK 1bFTUptirto138SnOma5wz UJKeiAWnGYoxISP4C82qh6 W8MERqBWRh LGF4sYB8dE5coTlhcdjffQ VmdDsgdmVydGljYWwtYWxp A535UGErjNxqRbBkzYb2U7 DtPwe6FTYp tOptPF4hlODrANpoVc8qeJ vgyFnwVQ6pZXLvuspya309 NtOqv5weDHJglXPaUXnwPS N1E45nw1M5 SMMsTQYeVVV2jNS2jM8hxD lnbjogbGVmdDsgdmVydGlj CSlyLNanS084MWRxfFvrRi BhdGllbnQg DYnzETl9J2EzDahzcJU+PC 84XYWlKU63kGUglYCji8xm qZl7EfWhFYBePWB2uFicFR adq0FdFXMe P69nvJRih9E0YBHwhVaauB VlEbZggOQ6wG8gLCioiioa e4yebntgHuxwe7ozjq30zE 42S77aXJxt ZHRoPSIzMCUiIHZhbGlnbj 1miC9oBc8+VEMqnTU2jIN1 eW9pCQOfZrL9QLelW815Bx RvcCIvPjxj x8bpc7znhZe0LrJ6WBSggv YbzCefTBX2a4PiUp86S05u IHdpZHRoPSIyMCUiIHZhbG qxvv3jxV9r Ii8+MSEsgVR7uMM7qR0iBl FiDsU0PZubZ514NbTvtBDd CvtnF50nZ2IosET+PHRyPj v5CMCchPpi TI8trNTlNMzjDv4kXJC3Ut VjMnFvPEpeW9WrEEMutleo smrijUG0HRWgEEZcbA13Xi 9udDogMTBw hTZKrU7wclazj9utaganSc TpJNPqHGt1PEi9VCTffPsj UsBtIBJ9FeX3APF1sMRofW 1hbGlnbjog rA6dP7VbNMTjlmceLr17pZ 0aMlJzPqW3IVntBvn+T1ZF Ey2BBBWqALfNRycyOEldwR Q+PHRkIHN0 hGauYJvzMTModX9dTVXtN8 c6QfUqBsL7NGebK2GeYGBl gmcpAb78jJ5hAuBpYvV4KY tcL2XsuyQ8 PUMsiGPiHBgaRCJ5B92mx7 I7WELwZPRgOAK2kJN0gT7i bGlnbjogbGVmdDsgdmVydG ljYWwtYWxp N206OOXzeXlnTiH2JiO7Vz A7YAS7I4EtCxe1GPAsnGxj MH6ziKGgIQmhLw9scDehxX uwZH9hZKDk xqfaOCYoyR8qVEQdyHNmwK anPS3lESYqdorna084MgIq WBT7EWNyxTAbR6FskT7cWh AjMDAwMDAw T5HqkEPaAUesR134AMboGr L5YGUoqmQuI2EiGJBalHbx SkZ8p9R3Kj17XJGEJKIlig wvdGQ+PHRk JEX7rPjlGWotKWGkfC9tJP NaF9x0AwLtSeL8VBvuU5Iq XQWafsesIb50vT9aNzVbYy V3VJjrX3Cj tkV2EKZuxOVpWRaaRET7C5 9xr6V5UMQzGKIjZSF2vBJ3 eR9djXzpjgmgoJZkhGaomz VydGljYWwt RLceX820CXMbsHimXs9XSK T6L1WkOoa3XQRryDffML6n rTLlBMoaRz6sxWebwUpeGP 4wNTBpbjtw OUKifO5nLXUaxXJrtGrjBU 2yWCXwuvzli217UzMsWXQ7 QTQryAViN9UuoN1wZyImQK NuZFFhL3Fo vTSdCRmjV396GDvsXkG9BX SyjuAoX1ApRHBzmDerElR8 g8P1Gu9TAZeuQ0TeK2KzaD wvdGQ+PC90 jy87X4GfZvokRnx5MRPhOW X6wAP6cI4zOWZtHGknq3Z4 aDX5P7UnjeKzce1ib0etIX AzNLwtN10g bEZya3V1LSSayUL6SOUypO npEdTiqV61Lea+PGNvbGdy v6ZgGiwtw9aei1ezpBo0Vl MwJSIgdmFs eSykPEI9v6QrDm19U66sDF dpZHRoPSIzMCUiIHZhbGln st1vpI1kMw3+SPRjsHD8hQ L3vM2mMpEl SiI3UStsH171GlHgoCAyNy cqt7huv1cebVs2RnIvZAQy dpFdbPhtDXR9o2FzJc01J8 NacEgir7Xd Nho6so55uTSbl6E1kYN5P4 PfWHZauhbyfZRqhPqpBH2k BTYtnmioRXTtwC2sRKBbT2 d4SuPkKxN2 EGxrH0AxrcD5EFHwyJHzTJ CcrURErG9efnvfq2luwrcl LkLiJTEjBZs2TTh2JQNvcO duOiBsZWZ0 WqC6ZWY5dOAkfS6hyVsruu hrpW8uQsg+XXr0g3edvNUd IV8lsIH7AA74RD19qQZqm8 W3fGI7T5Co FDUujnfyrdpvzYP9WEUoHK YewU78Rl1xjGcrJs5tSETf JJJ1MASfzHHdV8TqvF8cGv AjMDAwMDAw F6BojAHoHUwoM406KRqrSb R1ACVoauHnL5WqPYOlnOjj PtD6g0A5Gm8JPW62HF43TF 58dBCuq2K9 oMX8L9ThPHOokqfxeijehY H0ZNLoVSXsfD34Tp4lpQkg El4vPINlWPC4RLCdoRGdV2 OdsL8lZeUc BYCzSVLjY1ZjcSGzZFhxL3 91LGqjWbH2EINpnqWyR7Mu DNVokFduGoF0m7C7Do7LPs 50AG35HU41 rPPop1J5eMI3A7DvSVQjmf vvcbxguWM2JQEoIHHrnC61 Vb4luTtxFk1pRCLcWSW4JX IaaFWlO1Vp tL0xByAhHYCwCDLpA8MxaS UgFEqmZ310EZndDkN6ISBn htHcO7VxULHovXdiFxJ4i5 J1Rb9KSUac cpo5J2AnBztswTF+PC90YW VxUJ82aRPqvXHlr4xgpVr4 HyFhNXHyTTD1xPvzRJmyl2 HkXLKiX04m [facility] (more content not included)... [facility] Consent Formson 07-19-2023 Consent Forms [id number]#1.00 [facility] [id number]#1.00O [facility] Outside Recordson 07-19-2023 Outside Records [id number]#1.00 [facility] Anesthesia Noteon 07-18-2023 Anesthesia Note Patient: JON BAUER Age: 72 years Sex: MALE : 1950 Associated Diagnoses: None Author: Tomi Philip DO Postoperative Information Post Operative Note: Phase 2. Anesthetic utilized: Monitored anesthesia care. Physical Examination VS/Measurements VSS. See nursing flowsheet for vital sign measurements. General: No acute distress. Respiratory: Respirations are non-labored. Cardiovascular: Stable hemodynamics.. Neurologic: Alert, Oriented. Review / Management Condition: Stable. Assessment Anesthetic outcome No anesthetic complications noted. Adequate pain relief. No Complaint of nausea and vomiting. Plan Transfer/ Discharge: Patient can be discharged from anesthesia care. Condition stable. Post glu 115 [Electronically Signed on: 07/18/2023 14:40 EDT] Tomi Philip DO [Verified on: 07/18/2023 14:40 EDT] Tomi Philip DO [facility] Anesthesia Note Patient: JON BAUER Age: 72 years Sex: MALE : 1950 Associated Diagnoses: None Author: Tomi Philip DO Preoperative Information Anesthesiologist scheduled: Tomi Philip DO > 8 hours Anesthesia history: Patient history: No prior anesthesia problems. Family history: No prior anesthesia problems. Re-evaluation prior to induction: Completed. Initial evaluation reviewed: No significant interval change. Review of Systems Constitutional: No fever, No chills. Respiratory: No shortness of breath. Cardiovascular: No chest pain. Gastrointestinal: No heartburn. Neurologic: Alert and oriented X4. ROS reviewed as documented in chart Health Status Allergies: Allergic Reactions (All) Severe Tamiflu- Vomit. Unknown Amoxicillin-clavulanat e- Diarrhea. Sulfamethoxazole-trime thoprim- Nausea. Current medications: (Selected) Inpatient Medications Ordered Dextrose 50% injection: 12.5 gm = 25 mL, IV Push, Once, PRN: Other (see comment) Insulin Regular Sliding Scale - Custom Scale: Insulin regular sliding scale, Subcutaneous, Once LR 1,000 mL: 20 mL/hr, IV Lidocaine 1% injectable solution: 0.1 mL, ID, Once, PRN: Other (see comment) Documented Medications Documented ALPRAZolam 0.5 mg oral tablet: 0.5 mg = 1 tab(s), Oral, TID, PRN: for anxiety, 0 Refill(s) Basaglar KwikPen 100 units/mL subcutaneous solution: 50 unit(s), Subcutaneous, HS, 0 Refill(s) Lexapro 10 mg oral tablet: 10 mg = 1 tab(s), Oral, Daily, 0 Refill(s) NovoLOG FlexPen 100 units/mL injectable solution: 10 unit(s), Subcutaneous, AC Breakfast, 0 Refill(s) NovoLOG FlexPen 100 units/mL injectable solution: 12 unit(s), Subcutaneous, AC Lunch, 0 Refill(s) NovoLOG FlexPen 100 units/mL injectable solution: 15 unit(s), Subcutaneous, HS, 0 Refill(s) NovoLOG FlexPen 100 units/mL injectable solution: See Instructions, sliding scale AC and HS, 0 Refill(s) Probiotic Formula: 1 tab(s), Oral, Daily, 0 Refill(s) Revlimid 2.5 mg oral capsule: 2.5 mg = 1 cap(s), Oral, Daily, 0 Refill(s) Vitamin D and K oral tablet: 1 tab(s), Oral, Daily, 0 Refill(s) Vitamin D3 1000 intl units oral capsule: 50 mcg = 2 cap(s), Oral, Daily, 0 Refill(s) acetaminophen 500 mg oral tablet: 1,000 mg = 2 tab(s), Oral, Daily, PRN: for pain, 0 Refill(s) atorvastatin 10 mg oral tablet: 10 mg = 1 tab(s), Oral, Daily, 0 Refill(s) cetirizine 10 mg oral tablet: 10 mg = 1 tab(s), Oral, Daily, 0 Refill(s) gabapentin 100 mg oral capsule: 100 mg = 1 cap(s), Oral, Daily, 0 Refill(s) rOPINIRole 2 mg oral tablet: 2 mg = 1 tab(s), Oral, Daily, 270 tab(s), 0 Refill(s) Problem list (past medical history): All Problems Abdominal aortic aneurysm / SNOMED CT 584782819 / Confirmed Acute posthemorrhagic anemia / SNOMED CT 502525134 / Confirmed Allergic rhinitis / SNOMED CT 440568897 / Confirmed Chronic fatigue syndrome / SNOMED CT 12790275 / Confirmed Chronic frontal sinusitis / SNOMED CT 61670729 / Confirmed Chronic kidney disease stage 3 / SNOMED CT 7932751562 / Confirmed Chronic pain / SNOMED CT 149860878 / Confirmed Disorder of kidney due to diabetes mellitus / SNOMED CT 5305520428 / Confirmed Diverticular disease / SNOMED CT 0480265657 / Confirmed History of antineoplastic chemotherapy / SNOMED CT 8957427524 / Confirmed History of autologous bone marrow transplant / SNOMED CT 6806486054 / Confirmed Hyperlipidemia / SNOMED CT 95381404 / Confirmed Immunodeficiency disorder / SNOMED CT 046566579 / Confirmed Liver cell carcinoma / SNOMED CT 835408845 / Confirmed Liver enzymes level above reference range / SNOMED CT 4322365521 / Confirmed Methicillin resistant Staphylococcus aureus infection / SNOMED CT 6803911100 / Confirmed Mixed hyperlipidemia / SNOMED CT 274808416 / Confirmed Multiple myeloma / SNOMED CT 603927298 / Confirmed Muscle weakness / SNOMED CT 90413767 / Confirmed Neuropathy / SNOMED CT 1009712613 / Confirmed Obese class I / SNOMED CT 897258102912768 / Confirmed Osteochondropathy / SNOMED CT 967621437 / Confirmed Pancytopenia / SNOMED CT 494102 / Confirmed Restless legs / SNOMED CT 17227668 / Confirmed Thrombocytopenic disorder / SNOMED CT 353355417 / Confirmed Type 2 diabetes mellitus / SNOMED CT 485507028 / Confirmed Xeroderma / SNOMED CT 81972842 / Confirmed, Active Problems (27) Abdominal aortic aneurysm Acute posthemorrhagic anemia Allergic rhinitis Chronic fatigue syndrome Chronic frontal sinusitis Chronic kidney disease stage 3 Chronic pain Disorder of kidney due to diabetes mellitus Diverticular disease History of antineoplastic chemotherapy History of autologous bone marrow transplant Hyperlipidemia Immunodeficiency disorder Liver cell carcinoma Liver enzymes level above reference range Methicillin resistant Staphylococcus aureus infection Mixed hyperlipidemia Multiple myeloma Muscle weakness Neuropathy Obese class I Osteochondropathy Pancytopenia Res (more content not included)... Normal [facility] Inpatient Patient Summaryon 07-18-2023 Inpatient [place] [address] Patient Discharge Instructions Name: JON BAUER : 1950 Patient Address: [address] [place] [address] Primary Care Provider: Name: LETHA BEST After you are discharged if you find you have any questions, please, call [phone] ext [phone] to speak to a nurse. Discharge Diagnosis: Trigger finger, left little finger; Trigger finger, left middle finger; Trigger finger, left ring finger Prescription Information: If you have been given a prescription for narcotics, seek immediate medical attention if you have any difficulty breathing or any sudden status changes such as confusion and sleepiness. If you or anyone you know is experiencing suicidal thoughts, mental health, alcohol and/or drug addiction problems; contact the [facility] 29/11 Crisis Hotline -Text 4HOPE to 161813. If you received any narcotics, sedation, or any other medication that causes drowsiness for the next 24 hours, unless otherwise directed: ? Do not drive a car. ? Do not operate machinery such as power tools, lawn mowers, drills, sewing machines, or stoves ? Avoid alcoholic beverages and drugs for allergies, nerves, or sleep ? Do not make important personal or business decisions or sign any legal documents [facility] would like to thank you for allowing us to assist you with your healthcare needs. The following includes patient education materials and information regarding your injury/illness. JON BAUER has been given the following list of follow-up instructions, prescriptions, and patient education materials: Follow-up Instructions With: Address: When: JORGE KATELYN [address] [place] [address], [address] [place] [id number] Business (1) 07/27/2023 10:45 AM Medications During the course of your visit, your medication list was updated with the most current information. The details of those changes are reflected below: Medications to Continue That Have Not Changed Other Medications acetaminophen (acetaminophen 500 mg oral tablet) 2 tab(s) Oral (given by mouth) every day as needed for pain. ALPRAZolam (ALPRAZolam 0.5 mg oral tablet) 1 tab(s) Oral (given by mouth) 3 times a day (scheduled) as needed for anxiety. atorvastatin (atorvastatin 10 mg oral tablet) 1 tab(s) Oral (given by mouth) every day. bifidobacterium-lactob acillus (Probiotic Formula) 1 tab(s) Oral (given by mouth) every day. cetirizine (cetirizine 10 mg oral tablet) 1 tab(s) Oral (given by mouth) every day. cholecalciferol (Vitamin D3 1000 intl units oral capsule) 2 cap(s) Oral (given by mouth) every day. escitalopram (Lexapro 10 mg oral tablet) 1 tab(s) Oral (given by mouth) every day. gabapentin (gabapentin 100 mg oral capsule) 1 cap(s) Oral (given by mouth) every day. insulin aspart (NovoLOG FlexPen 100 units/mL injectable solution) 10 unit(s) Subcutaneous (under the skin) once a day before breakfast. insulin aspart (NovoLOG FlexPen 100 units/mL injectable solution) 15 unit(s) Subcutaneous (under the skin) At bedtime. insulin aspart (NovoLOG FlexPen 100 units/mL injectable solution) sliding scale AC and HS. insulin aspart (NovoLOG FlexPen 100 units/mL injectable solution) 12 unit(s) Subcutaneous (under the skin) once a day before lunch. insulin glargine (Basaglar KwikPen 100 units/mL subcutaneous solution) 50 unit(s) Subcutaneous (under the skin) At bedtime. lenalidomide (Revlimid 2.5 mg oral capsule) 1 cap(s) Oral (given by mouth) every day. multivitamin (Vitamin D and K oral tablet) 1 tab(s) Oral (given by mouth) every day. rOPINIRole (rOPINIRole 2 mg oral tablet) 1 tab(s) Oral (given by mouth) every day. It is important to always keep an active list of medications available so that you can share with other providers and manage your medications appropriately. As an additional courtesy, we are also providing you with your final active medications list that you can keep with you. acetaminophen (acetaminophen 500 mg oral tablet) 2 tab(s) Oral (given by mouth) every day as needed for pain. ALPRAZolam (ALPRAZolam 0.5 mg oral tablet) 1 tab(s) Oral (given by mouth) 3 times a day (scheduled) as needed for anxiety. atorvastatin (atorvastatin 10 mg oral tablet) 1 tab(s) Oral (given by mouth) every day. bifidobacterium-lactob acillus (Probiotic Formula) 1 tab(s) Oral (given by mouth) every day. cetirizine (cetirizine 10 mg oral tablet) 1 tab(s) Oral (given by mouth) every day. cholecalciferol (Vitamin D3 1000 intl units oral capsule) 2 cap(s) Oral (given by mouth) every day. escitalopram (Lexapro 10 mg oral tablet) 1 tab(s) Oral (given by mouth) every day. gabapentin (gabapentin 100 mg oral capsule) 1 cap(s) Oral (given by mouth) every day. insulin aspart (NovoLOG FlexPen 100 units/mL injectable solution) 10 unit(s) Subcutaneous (under the skin) once a day befo (more content not included)... [facility] Intraoperative Record [facility] Intra-Op Record Summary Primary Physician: Orlin Lorenzana DO Finalized Date/Time: 07/18/23 14:24:10 Pt. Name: JON BAUER Rei/Sex: 1950 MALE Med Rec #: [id number] Physician: Orlin Lorenzana DO Financial #: [id number] Pt. Type: D Room/Bed: / Admit/Disch: 07/18/23 11:34:36 - Institution: Case Times MAGR Entry 1 Patient In Room Time 07/18/23 13:40:00 Out Room Time 07/18/23 14:20:00 Anesthesia Start Time 07/18/23 13:40:00 Stop Time 07/18/23 14:23:00 Surgery Start Time 07/18/23 13:58:00 Stop Time 07/18/23 14:17:00 Last Modified By: Usha Solomon RN 07/18/23 14:24:05 Case Attendance MAGR Entry 1 Entry 2 Entry 3 Case Attendee Orlin Lorenzana Christopher J DO Long, Barbara RN Andrew DO Role Performed Surgeon - Primary Anesthesiologist of [address] Operator Record Time In 07/18/23 13:40:00 07/18/23 13:40:00 07/18/23 13:40:00 Time Out 07/18/23 14:20:00 07/18/23 14:20:00 07/18/23 14:20:00 Procedure Trigger Finger Trigger Finger Trigger Finger Release(Left) Release(Left) Release(Left) Last Modified By: Usha Solomon RN, Barbara RN Long, Barbara RN 07/18/23 14:24:01 07/18/23 14:24:01 07/18/23 14:24:01 Entry 4 Entry 5 Case Attendee Ignacia Barney CST, Brandi Role Performed Oil Filters Inspector Scrub Personnel Time In 07/18/23 13:40:00 07/18/23 13:40:00 Time Out 07/18/23 14:20:00 07/18/23 14:20:00 Procedure Trigger Finger Trigger Finger Release(Left) Release(Left) Last Modified By: Usha Solomon RN, Barbara RN 07/18/23 14:24:01 07/18/23 14:24:01 Surgical Procedures MAGR Pre-Care Text: A.20 Verifies operative procedure, surgical site, and laterality Im.150 Develops individualized plan of care Entry 1 Procedure Trigger Finger Release Primary Procedure Yes Primary Surgeon Orlin Lorenzana Modifiers Left Jenaro FLORES Surgeon Comment RELEASE OF LEFT LITTLE, Start 07/18/23 13:58:00 RING, AND MIDDLE TRIGGER FINGERS Stop 07/18/23 14:17:00 Anesthesia Type MAC Surgical Service Orthopedics Wound Class Clean Technique Details Closure Technique Primary Entire procedure No was performed via laparoscope or robotic assistance Last Modified By: Usha Solomon RN 07/18/23 14:18:02 Post-Care Text: O.730 The patient's care is consistent with the individualized perioperative plan of care General Case Data MAGR Pre-Care Text: A.350.1 Classifies surgical wound Entry 1 Case Information OR MAGR OR 01 Case Level Level 3 Wound Class Clean Specialty Orthopedics ASA Class 3 Diagnosis Preop Diagnosis LEFT LITTLE, RING, AND Postop Same As Preop Yes MIDDLE TRIGGER FINGERS Postop Diagnosis LEFT LITTLE, RING, AND MIDDLE TRIGGER FINGERS Blunt or No Is the procedure No penetrating injury considered occured prior to Emergent/Urgent? the start of the procedure: Last Modified By: Usha Solomon RN 07/18/23 13:54:40 Post-Care Text: O.760 Patient receives consistent and comparable care regardless of the setting Time Out MAGR Entry 1 Procedure(s) Trigger Finger Release(Left) Time Out Checklist Verifications Team Introductions Yes Confirmed Identity, Yes Completed Procedure, Incision Site, and Consent(s) Presence of Yes Site Verification, Yes Necessary Site Marking, Site Procedural Marking Equipment, Devices, Alternative, and/or and Implants Site Marking Verified Exception in Accordance with Facility Policy Anesthesia Review Antibiotic Received n/a All Anesthesia Yes Within an Concerns Addressed Appropriate Time Interval Prior to Surgical Incision Surgeon Review Anticipated Blood Yes Expected Case Yes Loss Risk Addressed Duration Addressed Critical and Yes Non-Routine Steps to be Performed Addressed Nurse Review Equipment Yes Fire Risk Yes Checks/Concerns Assessment Addressed Completed and Interventions Performed Diagnostic and Yes Sterilization Yes Radiological Test Concerns Addressed Results Displayed are Appropriate and Labeled Other Concerns Yes Addressed Time Out Orlin Lorenzana Time Out Time 07/18/23 13:57:00 Participants Tamera Eason DO, Christopher J DO, Usha Solomon RN, Ignacia Barney, Wyatt VASQUEZ, Caitlyn Last Modified By: Usha Solomon RN 07/18/23 14:01:15 Patient Positioning MAGR Pre-Care Text: A.280 Identifies baseline musculoskeletal status Im.40 Positions the patient Im.80 Applies safety devices Entry 1 Procedure Trigger Finger Body Position Supine Release(Left) Left Arm Position Extended on padded arm Right Arm Position Extended on padded arm board board Left Leg Position Extended Right Leg Position Extended Feet Uncrossed? Yes Press Points Checked Yes Positioning Device Arm Boards, Arm Strap, Outcome Met (O.80) Yes Pillow, Safety Strap Last Modified By: Usha Solomon RN 07/18/23 13:55:29 Post-Care Text: E.290 Evaluates musculoskeletal status O.80 Vianney (more content not included)... [facility]-18-[facility]23 MAGR Postoperative Record MAGR Phase II Record Summary Primary Physician: Orlin Lorenzana DO Finalized Date/Time: 07/18/23 15:12:54 Pt. Name: KIRITVINCENTJON /Sex: 1950 MALE Med Rec #: [id number] Physician: Orlin Lorenzana DO Financial #: [id number] Pt. Type: D Room/Bed: / Admit/Disch: 07/18/23 11:34:36 - Institution: Phase II Case Times MAGR Pre-Care Text: Patient is free from s/s of injury. Patient remains free from compromised physical state related to surgery or anesthesia. Patient comfort maintained. Patient/family verbalize understanding of discharge instructions. Entry 1 In PACU II 07/18/23 14:20:00 Discharge from PACU 07/18/23 15:12:00 II Last Modified By: Gorge Rae RN 07/18/23 15:12:52 Post-Care Text: The patient remains free from s/s of injury. Patient's vital signs stable, circulation maintained, return to preop mental and physical status, opsite/dressing intact, minimal or absent nausea and vomiting, tolerates po intake. Patient verbalizes adequate pain control. Patient/family express understanding of discharge instructions. Finalized By: Gorge Rae RN Document Signatures Signed By: Gorge Rae RN 07/18/23 15:12 [facility] MAGR Preoperative Recordon 0 07-18-2023 MAGR Preoperative Record MAGR Pre-Op Record Summary Primary Physician: Orlin Lorenzana DO Finalized Date/Time: 07/18/23 15:52:26 Pt. Name: JON BAUER Ketan /Sex: 1950 MALE Med Rec #: [id number] Physician: Orlin Lorenzana DO Financial #: [id number] Pt. Type: D Room/Bed: / Admit/Disch: 07/18/23 11:34:36 - Institution: Pre-Op Case Times MAGR Pre-Care Text: Patient will be optimally prepared for surgery. Patient is free from s/s of injury. Provide information to patient/family related to plan of care. Verify patient allergies. Confirm identity and verify consent before the operative or invasive procedure. Entry 1 Patient Arrival Time 07/18/23 11:40:00 Preop Departure 07/18/23 13:38:00 Last Modified By: Gorge Rae RN 07/18/23 15:52:23 Post-Care Text: Patient is prepared mentally and physically and is ready for surgery. The patient remains free from s/s of injury. Patient/family express understanding of plan of care and participate in decisions affecting his or her perioperrative plan of care. Allergies documented appropriately. Patient identifiers and consent correct. General Comments: pt arrives to [facility] ambulatory. denies CP,cough,cold, COVID like symptoms. pt has diabetes, denies pacemaker/defib, sleep apnea. pt verbalizes understanding of post op anesthesia orders including no driving for 24 hours. Finalized By: Gorge Rae RN Document Signatures Signed By: Gorge Rae RN 07/18/23 15:52 [facility] POCT Glucose Levelon 024 Glucose [Mass/Vol] 115 mg/dL Normal 74-118 [facility] Comment on above: Performed By: #### 4 [id number] #### [facility] (DEFAULT) [address] [place] [address] Glucose [Mass/Vol] 147 mg/dL High 74-118 [facility] Comment on above: Performed By: #### 4 [id number] ####[facility] (DEFAULT)[address] [place] [address] Patient Handouton 07-18-[address] LORENZANA'S TRIGGER FINGER RELEASE INSTRUCTIONS: SURGEON'S WRITTEN INSTRUCTIONS: 1. Keep your hand elevated above your elbow for the first 24 hours after surgery. 2. Wiggle your fingers frequently while awake. 3. DO NOT lift heavy objects or process design chemical engineer forcefully with your hand. 4. Change your dressing as necessary to keep the wound clean and dry. 5. You may shower in 1 day but do not submerge your hand under water. 6. If you have any questions or concerns, please call the office at [phone] or go to the emergency room. 7. Follow up as scheduled. [facility] Progress Note - Nurseon Progress Note - Nurse Spoke with pt and informed him to be here at 1130 and NPO after MN, he verbalizes understanding. [Electronically Signed on: 07/15/2023 13:51 EST] Tariq Amato RN [Verified on: 07/15/2023 13:51 EST] Tariq Amato RN [facility] Coding Summaryon 07-05-2023 Coding Summary HTMLBase 64 MdnnqqgaPVj5vSt+PGhlYW Q+OK5RJZZcL98opJGrsD4o L3TSDXgXRbjmXRVDCHyEJk ZahoNhRE7cpXFzOPPu IC8+WT4dEROhFemhmDRac0 S1jQI7G73ymm9cTNjrkUS6 EPRkFzQqutaoh6cusVs5FC cuNmluOyBt VZLayT27UPB0tL37Ku99tK FsbJWre4knpEw1PtDzQPAs YBD0fAosZNbye9NkTDInH8 7xvTTcx2I7 TXJxjEtmqIKyMmUzpPE1jJ 1iTTeuwggly8fvkyqwRpf5 pq00hSQam4J9lBZ1G3Efob S7VUBqkZRh UfaagYOAzF0cfxwga4bwmt rtMdKeCLDzUDe4JJw1FHYc kPrlKsJoHX37UCF7IXBwoo MuI3ZgESOu qNvuZjW0g2X6Gf4BW0HSSw ugO4VFBZFXAQeckWT+PC90 gm99O6IjSvpdRem1YHEwDB J6qUN6rV8v EWDwPStlu5C8pDL7K9Tifc Lrqt9rt1dsXJTfBHseL16d aFHpq7S5JFJxoJQ8MQUxaI doQcOimQ77 Oyc+TSKecHinu8AiVjocq3 oph4yewIr6QqriFCEepcGk aUgfZZW7y3FyAe1dDBLagU J5pYL8bB0r LuVaLfL1WZshK738QsPezL DjXmtuZ22nO0WjpTX+PHRy Mdj3CLAvqAfrRU7kC8UfEZ RpbmctbGVm fMbkHE4hQIShqssrSSUezK 9hANFeT0g1CeOnXqB2XThm U0AcHWHeeasiSp01rL2uFk YzXvZ8BWtu P0DvzsF1XWScwLYuSEheZZ T5V27zp1R8GZBlBVYoKEC9 mPW6gD2pfAbmbvkvhZEtyG sgdmVydGlj MVuuGBdhU374CNTrrZeiHw NvZGluZyBEYXRlOiAgMDIv MjcvMjAyNDwvdGQ+PHRkIH E4zToyDRKu gMNpXIhwKe2pbKmrwWwmMU 7sRHViwnkrIUPleP7dDLGh eIBuaOagMD6hDTXomwerq5 33XuOyTOU0 XFBhpNXxN7FbuJ0hTpMiHJ BbWEIjJ0KzhINhKPcuA377 CHjxNaU6YUTfocEdU6DsMH FsaWduOiB0 j8L6Ey0Qh8BdjyrjU6TroL BoUwKqXunzJBc2S0RpExux dHI+RI89YTUcYY70JBi1NZ D6cVgzMRit CKAgI4QlwN2tNaStOSRdKN RkOyc+PHRhYmxlIHdpZHRo AVcaSEDePkNagFunBM6hAe 9yZGVyLWNv eAcoyZShZoUxc1kgFOEfEI xfQM5fxVsvR2KjoUE5YRSk x0w4Jz92U75fR4FzqLS+PG DhdZX0yZW9 zT3fLjHtUjV5QBjhN155Id DtfIEiZleco5kxt9xhzEt2 TyL4IMMlrhLhsLofGWV9j4 SuEx11D26n IHdpZHRoPSIxNSUiIHZhbG qupo5szT4uLt2+PGNvbCB3 bNQ5lP7qBkAeIjE5VYngT5 49InRvcCIv Qcilc8wjc7zscTy4LvRzSS CdekThiLwnKZW4w7HmCw36 T7EqwYdci8DdQai7bb98lI Spo5X6mII5 H0JdOIVtbdchdZZkjIxrYD 7oMGRsflrqJIYlsT5qGQOm U9s7OyKsIlF8XKtkO3Uzvc A8WCHtrHCa NOMhtOMQjD4iufksx1alsu bjXhDgTIQjROr3ICb4TUIy rOafNoQaIIR7ZvT3FED4dN DieF2fcVya fllyaH4sMsa+UAP7aVNtrQ BOBB1rTvsxkEH+PHRkIHN0 dXvlHNtiOZNhwV3nFOIjE1 a8EgPsGhG4 EVahM8EacnQ5XQNpeDJoNX HpaOVNhQ5lrkhba1fcvdbr XqTwGKEcUFn3TVg2RTQwgO duOiBsZWZ0 XtO8DYU9yRKogM3lpQwiuw jtaU5eYls+QmlydGggRGF0 BBk1C4TdLrh2HGIpoIpuKT 0ncGFkZGlu Oq9oeCnryZmhGW2vHQJhxs mhz342MjJha5lrTJQmxQBf SFmuJZI6D77wc6Z9EANxQZ StBJG0oCA0 kG8wsFhmwmgjdUGsxHrpfp ArsAmnMNdwXNizM763YBGq bJwtPoEvINm5M4MeIxu3ND PntLtpKE5x rYOgLRzkHa4svCakrMvjDK 5zCMBslaoih991GzUce0ox WGIrpFCqLIfpDLN8G39rl3 R0ZKCjKFQz IXC2tZB5iV4mqXmxfgisoT VmdDsgdmVydGljYWwtYWxp J315AFLssWnxKkPwcFt9Y7 WzPls3BQJb zChhIO9kaWFaAJgcUy7zwG ddkOjrSK3xFPOrakomw448 CnEtw1geOYNcfHEmUMckKZ K1G11jv1L1 OLFoMSTgRFX7pDE3hT1qmX lnbjogbGVmdDsgdmVydGlj EQwfRUlaM278DQOcsGxfKn BhdGllbnQg SHtlVXx0K5MbOtessQG+PC 14GCVgUA54vHHbmYCpr9tn rRq7RbXxCQSuNZY3vMuzVG sbh2BpWPPg P26gmSUzb1I0KNOeaYjazZ TiKeVolQC5zR1oJNjhzauv n7ngjjfmBnmni3dkes76wO 46N02lDRou ZHRoPSIzMCUiIHZhbGlnbj 5ycI0nVu8+XQLawPJ0uTD8 cG0cHGYlWeD3BWnnA718Os RvcCIvPjxj r6xfx4bdeUo7MzU0JKLzwr TeuEyzLKO2a7WoKd85X89k IHdpZHRoPSIyMCUiIHZhbG ucds0qkJ1d Ii8+AVDqgZZ6yLA8kO8aDm MtLlS8KMzvQ469YgXxmVZe VlrdL62rI6WxsEM+PHRyPj t7AYDdyQhy IC1twCQaLTzzLb7bITY9Qo IsWhAwIFwyE9GvEOYugpmw jebgfDB9CWYjOHWuoX07Ci 9udDogMTBw wLCFtU9iwosnl1bdgqfyOu EePHNwREs7UWd8GXGahPgi VuMgKLC2PiO6XZY5mOJboW 1hbGlnbjog xB2sI0OqJWRsinhgZz70nB 2xJjDdUcF5KEpmTab+T1ZF Dp9AALJtFRpYYcxwFXvvcB Q+PHRkIHN0 sGxiMAynVKBzdX9xBMEyS7 u5SrUrOyR6IScfG4XwUWHt kjtzAm84zI3zUfRdBzB9SM evH9QstvF6 JYZjgUSnWKbuLWQ8I63zp8 X4AXCrLTBtASW3kHR1yZ7u bGlnbjogbGVmdDsgdmVydG ljYWwtYWxp M447TKTwhAonZfC2RuU7Yu W1VRX2N4DaRrs5OSTloPer GG2dgSDrVVojEm0ytKqblB oePS5eZWBh tbupLDQshU6jCRJpuJHusZ muKR8dPOXfkhnqa681TsGw BPC6TUSecSDcZ2CtmD6aDo AjMDAwMDAw A4UizKKfHDlfN523SRvmTp Q8YRZmhpRkE4IyWUHhpWcf GmS4p8T2Fc68IZSQQHOepp wvdGQ+PHRk XKN4mDkmSPfoJAEuiY3jMU KiJ9v3HeAbCxP9PKffB4Fi DWYgvmdjUe27tP0tDmUpPp F6NZuzM6Rr umY9ZUSfmJLeFZhbHZR7F6 7vt2X1LBLlWNXgTGL7aJJ5 gN2jgEfprgkhjXKqsCbblp VydGljYWwt BQjbO284PCWgqItqUk3WNH C0L8JuFrf9NPKhcAeyDD3n sSKvIEloXe3mvCliqMilWN 4wNTBpbjtw LDTwcZ2rJIEcjDIliYwoPU 0oWCEkgjaiz075LbHxIUX6 GDBtsQOfW1ArnC0vDyZcSG PeWRXqK2Ey pWHoBIlgF561PVffVvB5WM OtspWwZ3YeGEGefKjoBuB7 s6E5Tz0BXUzukSZ+PC90cj 39R0HrLcrd Tsa8FZJoOVE0tYY9lP7eJN EoVAfiu5T5iGA3V6XbagGg fr1ll4qxTFJfAOnjS31bfZ Cxj5R3ATHt pYA1CRPbcKyoYtWusT31Vh c+QAGubVxqo8EuUingb9mf p2xspEh1RxBkYENlfrOqsM maBIV1h3Yy Nx83O59aCQmkTGLjNCYhWH JeKFGvqWpwdc2xzG9nHc6+ PRVqeWG9zUM6yO6lMlJzMs M4SOkcR841 OqPtaIZnVtktk6rzy7lztK z9QjCkKGMnxpSnxOdkFPQ7 n4GqRh94L0EmbOrbx2ZvIp l8bm54jMJi h8A7qZQ3T1ZrDKKolcsipR PfkWyxMM9oHXSdvhqsFRRv gA5yZLGeX3e6TqLgQfN8TH cvY8VzlcS3 HPWdlJRxFSMajMIBaM0kcq gko9wnslwcGnBuZQGaSZz5 ZTm2DJNpyAgwMoEwDTM1Bz W6YEU7vEVj rD8izLbxncvvxC1kVfc+UG e6p8ahkPHrAA1ugQJ6GX85 BR24lPTfn2Q4pNU3B7FiBJ Rpbmctcmln fMP8LECgQYQbpG02Sq7fqS ftMc1gABZmENM1IZPykYMp V3KwwO4cUmLzFKXlOCTyT8 RleHQtYWxp Z405UBofXkC8OPWjwzWvB0 YnIDNfxZtrLkQ8v8O0Lu2O VU89SC09MP63qXTjc3N7bW O5M1IlBGJh uhejmzfvvTB7UVLwKNVxdB 77Aj7jrCwlOp1zWMAxEUA5 VYRxaTGsW9HbnE3uBzArQW YcYNHkS3Ro aUQxDCjmE539DOwwWhF1NU MqerLvC1DdRRKivCybFhT9 b4Q6Fx7QDw51EO44HF48wR Pfe7P5kAF3 A1FmNZRfnhbravhpkVC8NG EuRMErxJ43Dg5btBzyGp2v FHFtXUE9SOSxzHQnD0EsuL 9yOiAjMDAw WDTbA8TefBNxDOozO546BF vdJdE3BYHqgvGrC7BhDICy oHjlGsD1d7K3Dl2EDGmffk t3E7NhYeij dHI+OL58FHRxWU06zLRmhI Gqw3jtyBm0NgSiJWPkVOP4 wWerLGyga9XyHJMkD85vsY Vdv7N9UZFv bGx (more content not included)... [facility] Progress Note - Zander -2 Progress Note - Nurse Dr Vázquez reviews pt chart and no new orders were received. [Electronically Signed on: 07/04/2023 13:21 EST] Tariq Amato RN [Verified on: 07/04/2023 13:21 EST] Tariq Amato RN Normal [facility] .Auto Diff 1on 06-29-2023 Auto [place] % 12 % Normal 1-12 [facility] Comment on above: Performed By: #### 7 [id number], [id number], [id number] #### [facility] (DEFAULT) [address] [place] [address] 03088 Baso Abs# 0.0 x10 Normal 0.0-0.2 [facility] Comment on above: Performed By: #### 7 [id number], [id number], [id number] #### [facility] (DEFAULT) [address] [place] [address] 62418 Basophils/100 WBC (Bld) 0.7 % Normal 0.2-2.0 [facility] Comment on above: Performed By: #### 7 [id number], [id number], [id number] #### [facility] (DEFAULT) [address] [place] [address] 67009 Eos Abs# 0.0 x10 Normal 0.0-0.4 [facility] Comment on above: Performed By: #### 7 [id number], [id number], [id number] #### [facility] (DEFAULT) [address] [place] [address] 14784 Eosinophils/100 WBC (Bld) 1.3 % Normal 0.9-4.0 [facility] Comment on above: Performed By: #### 7 [id number], [id number], [id number] #### [facility] (DEFAULT) [address] [place] [address] 13866 Lymph Abs# 1.9 x10 Normal 1.3-2.9 [facility] Comment on above: Performed By: #### 7 [id number], [id number], [id number] #### [facility] (DEFAULT) [address] [place] [address] 79710 Lymphocytes/100 WBC (Bld) 54 % High 14-48 [facility] Comment on above: Performed By: #### 7 [id number], [id number], [id number] #### [facility] (DEFAULT) [address] [place] [address] [place] Abs# 0.4 x10 Normal 0.0-0.8 [facility] Comment on above: Performed By: #### 7 [id number], [id number], [id number] #### [facility] (DEFAULT) [address] [place] [address] Neut Abs# 1.2 x10 Low 1.5-9.2 [facility] Comment on above: Performed By: #### 7 [id number], [id number], [id number] #### [facility] (DEFAULT) [address] [place] [address] 25794 Neutrophils/100 WBC (Bld) 32 % Low 44-88 [facility] Comment on above: Performed By: #### 7 [id number], [id number], [id number] #### [facility] (DEFAULT) [address] [place] [address] 09239 BMP Standardon 06-29-2023 eGFR Non AA 50 mL/min/1.73m2 Invalid Interpretation Code [facility] Comment on above: Performed By: #### 7 [id number], [id number], [id number] #### [facility] (DEFAULT) [address] [place] [address] 71618 eGFR AA >60 Invalid Interpretation Code [facility] Comment on above: Performed By: #### 7 [id number], [id number], [id number] #### [facility] (DEFAULT) [address] [place] [address] 10536 Anion gap [Moles/Vol] 7.8 mmol/L Normal 5.0-19.0 [facility] Comment on above: Performed By: #### 7 439944, [id number], [id number] #### [facility] (DEFAULT) [address] [place] [address] 24962 Calcium [Mass/Vol] 8.4 mg/dL Low 8.9-10.3 [facility] Comment on above: Performed By: #### 7 907168, [id number], [id number] #### [facility] (DEFAULT) [address] [place] [address] 68704 Chloride [Moles/Vol] 106 mmol/L Normal 101-111 [facility] Comment on above: Performed By: #### 7 963717, [id number], [id number] #### [facility] (DEFAULT) [address] [place] [address] 35699 CO2 [Moles/Vol] 28 mmol/L Normal 21-32 [facility] Comment on above: Performed By: #### 7 915941, [id number], [id number] #### [facility] (DEFAULT) [address] [place] [address] 32627 Creatinine [Mass/Vol] 1.40 mg/dL High 0.90-1.30 [facility] Comment on above: Performed By: #### 7 450831, [id number], [id number] #### [facility] (DEFAULT) [address] [place] [address] 40657 Glucose [Mass/Vol] 255.0 mg/dL High 74.0-118.0 [facility] Comment on above: Performed By: #### 7 242725, [id number], [id number] #### [facility] (DEFAULT) [address] [place] [address] 30698 Osmolality 289 mOsm/L Invalid Interpretation Code [facility] Comment on above: Performed By: #### 7 344146, [id number], [id number] #### [facility] (DEFAULT) [address] [place] [address] 49693 Potassium [Moles/Vol] 3.8 mmol/L Normal 3.6-5.1 [facility] Comment on above: Performed By: #### 7 [id number], [id number], [id number] #### [facility] (DEFAULT) [address] [place] [address] 71162 Sodium [Moles/Vol] 138.0 mmol/L Normal 136.0-144.0 [facility] Comment on above: Performed By: #### 7 555071, [id number], [id number] #### [facility] (DEFAULT) [address] [place] [address] Urea nitrogen [Mass/Vol] 27 mg/dL High 8-26 [facility] Comment on above: Performed By: #### 7 613764, [id number], [id number] #### [facility] (DEFAULT) [address] [place] [address] Urea nitrogen/Creatinine [Mass ratio] 19.2 mg/mg High 4.6-16.2 [facility] Comment on above: Performed By: #### 7 350379, [id number], [id number] #### [facility] (DEFAULT) [address] [place] [address] CBC w/ Auto Diffon Erythrocyte distribution width (RBC) [Ratio] 14.9 % Normal 11.5-15.0 [facility] Comment on above: Performed By: #### 7 205646, [id number], [id number] #### [facility] (DEFAULT) [address] [place] [address] Hematocrit (Bld) [Volume fraction] 36.4 % Normal 34.8-51.9 [facility] Comment on above: Performed By: #### 7 663453, [id number], [id number] #### [facility] (DEFAULT) [address] [place] [address] Hemoglobin (Bld) [Mass/Vol] 12.8 g/dL Normal 11.8-17.7 [facility] Comment on above: Performed By: #### 7 564229, [id number], [id number] #### [facility] (DEFAULT) [address] [place] [address] Man Diff? Auto Invalid Interpretation Code [facility] Comment on above: Performed By: #### 7 759587, [id number], [id number] #### [facility] (DEFAULT) [address] [place] [address] 52381 MCH (RBC) [Entitic mass] 34 pg Normal 24-34 [facility] Comment on above: Performed By: #### 7 431313, [id number], [id number] #### [facility] (DEFAULT) [address] [place] [address] 64940 MCHC (RBC) [Mass/Vol] 35 g/dL Normal 26-37 [facility] Comment on above: Performed By: #### 7 379225, [id number], [id number] #### [facility] (DEFAULT) [address] [place] [address] 61000 MCV (RBC) [Entitic vol] 98 fL Normal 81-100 [facility] Comment on above: Performed By: #### 7 164252, [id number], [id number] #### [facility] (DEFAULT) [address] [place] [address] Platelet 133 x10 Low 138-427 [facility] Comment on above: Performed By: #### 7 432394, [id number], [id number] #### [facility] (DEFAULT) [address] [place] [address] Platelet mean volume (Bld) [Entitic vol] 6.7 fL Normal 6.3-10.2 [facility] Comment on above: Performed By: #### 7 081412, [id number], [id number] #### [facility] (DEFAULT) [address] [place] [address] RBC 3.71 x10 Normal 3.70-5.30 [facility] Comment on above: Performed By: #### 7 546630, [id number], [id number] #### [facility] (DEFAULT) [address] [place] [address] WBC 3.6 x10 Normal 3.5-10.5 [facility] Comment on above: Result Comment: Slid e Reviewed Performed By: #### 7 [id number], [id number], [id number] #### [facility] (DEFAULT) [address] [place] [address] 09326 CNOVon 04-05-2023 CNOV Office Visit (URFHR) JON BAUER ([id number]) 1950 M Date Time Provider Department 04/05/23 11:45 AM KELSI STEVENS URFHR During your visit today, we recorded the following information about you: Pulse Respiration Blood pressure Weight 61/minute 15/minute 168/88 114.3 kg Kelsi Stevens MD 04/05/2023 1:16 PM Signed [facility] NEW PATIENT HISTORY AND PHYSICAL EXAM PATIENT INFO: Jon Bauer 72 year old REFERRING M.D.: Alejandra Maddox APRN.HIM MANAGER PCP: Sana Key DO Consultation requested by Alejandra Maddox APRN.LONA for an opinion regarding renal lesion and my final recommendations will be communicated back to the requesting physician by way of shared medical record or letter via US mail. HPI 72 year old male w/h/o history of multiple myeloma, hepatocellular carcinoma, s/p diagnostic laparoscopy, right posterior hepatectomy, cholecystectomy in October 2022 referred for evaluation of renal lesion. CT Liver w/ IV contrast 02/10/2023 - 1.1 cm hypodensity within the right renal upper pole is indeterminate, and could represent a complicated cyst or a small renal mass. Renal US 03/10/2023 - 1.7 cm RIGHT renal lesion is at least a partially complex cystic lesion but may have a solid peripheral component. Renal neoplasm is not excluded Reports he has recovered well from surgery with Dr. Bennett and gets surveillance imaging q 3 months. Does endorse urinary frequency with nocturia ~ 3 times per night. Does not feel like he empties fully throughout the day and has weak stream. Drinks water and tea. No coffee. Occasional soda. PATHOLOGY: None LAB: Creatinine Date Value Ref Range Status 03/23/2023 1.08 0.73 - 1.22 mg/dL Final No results found for: PSA No results found for: COLOR , CLARITY , UGLUC , UBILI , UKET , SPGR , UHB , UPH , UPROT , UROBILINOGEN , NITRITES , LEUKEST IMAGING: CT Liver w/ IV contrast 02/10/2023 IMPRESSION: 1. Since 10/01/2022, interval partial right hepatectomy. No findings to suggest residual or recurrent disease. No suspicious OPTN-5/LR-5 lesion elsewhere within the liver. 2. No evidence of metastatic disease within the abdomen. 3. Cirrhotic liver morphology with steatosis. Stigmata of portal hypertension manifested by a small splenorenal shunt. 4. A 1.1 cm hypodensity within the right renal upper pole is indeterminate, and could represent a complicated cyst or a small renal mass. Continued attention on surveillance imaging is suggested. Renal US 03/10/2023 IMPRESSION: 1.7 cm RIGHT renal lesion is at least a partially complex cystic lesion but may have a solid peripheral component. Renal neoplasm is not excluded. A renal protocol CT scan is recommended for better characterization. ALLERGIES: ALLERGIES Allergen Reactions Amoxicillin-Pot Cla* Diarrhea Oseltamivir Other: See Comments Sulfamethoxazole-Tr* GI Upset, Unknown MEDICATIONS: ALPRAZolam (XANAX) 0.5 mg tablet Take 1 tablet by mouth three times a day as needed for anxiety (claustrophobia) for up to 90 days. REVLIMID 5 mg capsule TAKE 1 CAPSULE BY MOUTH 1 TIME DAILY. Blood-Glucose Sensor (DEXCOM G7 SENSOR) liana as directed. empagliflozin (JARDIANCE) 10 mg tablet Take 10 mg by mouth daily with breakfast. ACETAMINOPHEN ORAL Take by mouth. MELATONIN ORAL Take by mouth. multivit-minerals/foli c acid (CENTRUM MULTIGUMMIES ORAL) Take by mouth. cholecalciferol, vitD3,/vit K2 (VITAMIN D3-VITAMIN K2 ORAL) Take by mouth. L gasseri/B bifidum/B longum (PROBIOTIC COLON CARE ORAL) Take by mouth. BASAGLAR KWIKPEN U-100 INSULIN 100 unit/mL (3 mL) Inject 30 Units subcutaneously every morning. (Patient taking differently: Inject 40 Units subcutaneously daily at bedtime.) insulin aspart U-100 (NOVOLOG FLEXPEN U-100 INSULIN) 100 unit/mL (3 mL) If Blood Glucose (mg/dL) is <110 Give 0 units 111-150 Give 0 units 151-200 Give 2 unit 201-250 Give 4 units 251-300 Give 6 units 301-350 Give 8 units 351-400 Give 10 units >400 Call physician. Insulin [place], Disposable, (BD ULTRA-FINE NAY PEN NEEDLE) 32 gauge x 5/32 Use as directed up to four times daily gabapentin (NEURONTIN) 100 mg capsule Take 1 capsule by mouth daily at bedtime for 30 days. (Patient taking differently: Take 100 mg by mouth three times a day.) rOPINIRole (REQUIP) 2 mg tablet Take 1 tablet by mouth daily at bedtime. Cholecalciferol, Vitamin D3, (VITAMIN D) 25 mcg (1,000 unit) cap Take 2 capsules by mouth once daily. atorvastatin (LIPITOR) 10 mg tablet Take 10 mg by mouth once daily. cetirizine (ZYRTEC) 10 mg tablet Take 10 mg by mouth once daily. HISTORIES PAST MEDICAL HISTORY Diagnosis Date Abdominal aortic aneurysm (HCC) Allergic rhinitis Biceps rupture, proximal 04/09/2014 Bicipital tenosynovitis 11/01/2013 Chronic pain COVID-19 06/11/2020 positive test 06/13/20 De (more content not included)... Normal [facility] US KIDNEY/BLADDERon 03-13-20 Radiology Result ACTIONABLE Abnormal [facility] CT Liver W contrast Mario IMPRESSION: 1. Since 10/01/2022, interval partial right hepatectomy. No findings to suggest residual or recurrent disease. No suspicious OPTN-5/LR-5 lesion elsewhere within the liver. 2. No evidence of metastatic disease within the abdomen. 3. Cirrhotic liver morphology with steatosis. Stigmata of portal hypertension manifested by a small splenorenal shunt. 4. A 1.1 cm hypodensity within the right renal upper pole is indeterminate, and could represent a complicated cyst or a small renal mass. Continued attention on surveillance imaging is suggested. Transcribe Date/Time: Feb 10 2023 2:49P Dictated by: KRISTIN OMER MD This examination was interpreted and the report reviewed and electronically signed by: KRISTIN OMER MD on Feb 10 2023 3:18PM EST Thank you for allowing us to participate in the care of your patient. Should there be any questions regarding this interpretation, please call [phone]. If you are unable to reach us at the number above, please feel free to contact [facility] at [phone]. DIVISION OF RADIOLOGY * * *Final Report* * * DATE OF EXAM: Feb 10 2023 1:57PM [facility] [id number] - CT LIVER W IVCON / PROCEDURE REASON: Hepatocellular carcinoma (HCC) * * * * Physician Interpretation * * * * RESULT: EXAMINATION: CT ABDOMEN WITH IV CONTRAST (LIVER) CLINICAL HISTORY: Multiple myeloma. History of right liver mass hepatocellular carcinoma, status post partial right hepatectomy performed 10/08/2022. Currently undergoing surveillance. No adjuvant therapy. TECHNIQUE: Multiphase imaging of the abdomen was performed utilizing IV contrast only (Liver mass / Liver donor protocol). Contrast: IV: 150 ml of Omnipaque 350 Oral: none CT Radiation dose: Integrated Dose-length product (DLP) for this visit = 2244 mGy*cm. CT Dose Reduction Employed: Automated exposure control (AEC) COMPARISON: MRI liver 10/01/2022; CT abdomen/pelvis 08/03/2022 RESULT: Liver: Hepatic morphology and masses: Cirrhotic liver morphology, characterized by peripheral nodularity, hypertrophy of the lateral segment and hypertrophy of the caudate. There is mild diffuse hypodensity of the hepatic parenchyma, compatible with hepatic steatosis. Operative changes reflect partial resection of the posterior right hepatic lobe. There is mild adjacent fat stranding along the resection cavity. No findings to suggest residual or recurrent disease. No suspicious hypervascular hepatic lesion; specifically, no LR-5/OPTN-5 lesions. Other Lesions: A 0.6 cm hypodensity within the right hepatic dome (series 7, image 16) is unchanged and likely a hemangioma when correlated to the prior MRI. Hepatic vasculature and collaterals: Portal venous system (splenic vein, main portal vein, left and right anterior and right posterior portal vein branches): Patent. Portal vein diameter: 1.7 cm. Celiac trunk and SMA: Patent. Ostial atherosclerotic calcification. Hepatic artery: Patent. Conventional anatomy. Hepatic veins: Patent. Collaterals: Spontaneous splenorenal shunt: Small Recanalized paraumbilical vein: Absent Esophageal varices: Absent Mesenteric portosystemic collaterals: Absent Related extrahepatic findings: Spleen: 12.7 cm (craniocaudally), normal. No mass. Mesentery/Peritoneum: No ascites. No mass. Other findings: Biliary: No bile duct dilation. The gallbladder is absent. Pancreas: No mass or duct dilation. Adrenals: No mass. Kidneys: The kidneys enhance symmetrically. A 1.1 cm hypodense observation within the posterior right renal upper pole (series 10, image 51) is indeterminate. Additional hypodensities within the kidneys are compatible with cysts. No collecting system dilatation. GI tract: Imaged portions of bowel are normal in caliber. There are scattered colonic diverticula, without associated inflammation. Normal appendix. Lymph nodes: No abdominal lymphadenopathy. A borderline enlarged gastrohepatic ligament lymph node measuring 1 cm in short axis on series 6, image 159) is unchanged. Vasculature (other): There are atherosclerotic calcifications without aneurysmal dilation. Bones/Soft Tissues: Degenerative change involves the lumbar spine. No destructive lytic or blastic osseous abnormality. Lower thorax: Unremarkable. Tube Room Cashier (topogram) images: No additional findings. DIVISION OF RADIOLOGY Provider, [facility] - 02/10/2023 * * *Final Report* * * DATE OF EXAM: Feb 10 2023 1:57PM [facility] 0548 - CT LIVER W IVCON / PROCEDURE REASON: Hepatocellular carcinoma (HCC) * * * * Physician Interpretation * * * * RESULT: EXAMINATION: CT ABDOMEN WITH IV CONTRAST (LIVER) CLINICAL HISTORY: Multiple myeloma. History of right liver mass hepatocellular carcinoma, status post partial right hepatectomy performed 10/08/2022. Currently undergoing surveillance. No adjuvant therapy. TECHNIQUE: Multiphase imaging of the abdomen was performed utilizing IV contrast only (Liver mass / Liver donor protocol). Contrast: IV: 150 ml of Omnipaque 350 Oral: none CT Radiation dose: Integrated Dose-length product (DLP) for this visit = 2244 mGy*cm. CT Dose Reduction Employed: Automated exposure control (AEC) COMPARISON: MRI liver 10/01/2022; CT abdomen/pelvis 08/03/2022 RESULT: Liver: Hepatic morphology and masses: Cirrhotic liver morphology, characterized by peripheral nodularity, hypertrophy of the lateral segment and hypertrophy of the caudate. There is mild diffuse hypodensity of the hepatic parenchyma, compatible with hepatic steatosis. Operative changes reflect partial resection of the posterior right hepatic lobe. There is mild adjacent fat stranding along the resection cavity. No findings to suggest residual or recurrent disease. No suspicious hypervascular hepatic lesion; specifically, no LR-5/OPTN-5 lesions. Other Lesions: A 0.6 cm hypodensity within the right hepatic dome (series 7, image 16) is unchanged and likely a hemangioma when correlated to the prior MRI. Hepatic vasculature and collaterals: Portal venous system (splenic vein, main portal vein, left and right anterior and right posterior portal vein branches): Patent. Portal vein diameter: 1.7 cm. Celiac trunk and SMA: Patent. Ostial atherosclerotic calcification. Hepatic artery: Patent. Conventional anatomy. Hepatic veins: Patent. Collaterals: Spontaneous splenorenal shunt: Small Recanalized paraumbilical vein: Absent Esophageal varices: Absent Mesenteric portosystemic collaterals: Absent Related extrahepatic findings: Spleen: 12.7 cm (craniocaudally), normal. No mass. Mesentery/Peritoneum: No ascites. No mass. Other findings: Biliary: No bile duct dilation. The gallbladder is absent. Pancreas: No mass or duct dilation. Adrenals: No mass. Kidneys: The kidneys enhance symmetrically. A 1.1 cm hypodense observation within the posterior right renal upper pole (series 10, image 51) is indeterminate. Additional hypodensities within the kidneys are compatible with cysts. No collecting system dilatation. GI tract: Imaged portions of bowel are normal in caliber. There are scattered colonic diverticula, without associated inflammation. Normal appendix. Lymph nodes: No abdominal lymphadenopathy. A borderline enlarged gastrohepatic ligament lymph node measuring 1 cm in short axis on series 6, image 159) is unchanged. Vasculature (other): There are atherosclerotic calcifications without aneurysmal dilation. Bones/Soft Tissues: Degenerative change involves the lumbar spine. No destructive lytic or blastic osseous abnormality. Lower thorax: Unremarkable. Tube Room Cashier (topogram) images: No additional findings. IMPRESSION IMPRESSION: 1. Since 10/01/2022, interval partial right hepatectomy. No findings to suggest residual or recurrent disease. No suspicious OPTN-5/LR-5 lesion elsewhere within the liver. 2. No evidence of metastatic disease within the abdomen. 3. Cirrhotic liver morphology with steatosis. Stigmata of portal hypertension manifested by a small splenorenal shunt. 4. A 1.1 cm hypodensity within the right renal upper pole is indeterminate, and could represent a complicated cyst or a small renal mass. Continued attention on surveillance imaging is suggested. Transcribe Date/Time: Feb 10 2023 2:49P Dictated by: KRISTIN OMER MD This examination was interpreted and the report reviewed and electronically signed by: KRISTIN OMER MD on Feb 10 2023 3:18PM EST Thank you for allowing us to participate in the care of your patient. Should there be any questions regarding this interpretation, please call [phone]. If you are unable to reach us at the number above, please feel free to contact [facility] eRadiology at [phone]. [facility] Radiology Study observation (narrative) Angel choi [facility] CT Liver W contrast IVOrdere d By: [facility] Provider on 02-10-2023 [facility] ALLIED HEALTHon 01-13-2023 ALLIED HEALTH HNO ID: [id number] Author: Heide Avila MRI Tech Service: Radiology Author Type: Regulatory Affairs Portfolio Leader Type: Allied Health Filed: 01/13/2023 1:16 PM Note Text: RADIOLOGY SERVICE PROGRESS NOTE DATE OF SERVICE: January 13, 2023 TIME OF SERVICE: 13:16 EVENT: EXAM/PROCEDURE NOT COMPLETED - Patient became claustrophobic, reaction was: Severe. ADDITIONAL EVENT DETAILS: N/A SIGNATURE: Heide Avila mail room clerk PATIENT NAME: Jon Bauer DATE: January 13, 2023 TIME: 1:16 PM PAGER/CONTACT #: [facility] NURSING PROGon 01-13-2023 NURSING PROG HNO ID: [id number] Author: Isai Sneed RN Service: Radiology Author Type: Registered Nurse Type: Nursing Progress Note Filed: 01/13/2023 1:24 PM Note Text: Radiology Service Progress Note PATIENT NAME: Jon Bauer DATE OF SERVICE: January 13, 2023 TIME: 1:23 PM PATIENT IDENTITY VERIFICATION COMPLETED USING TWO (2) STANDARD IDENTIFIERS: Name and Date of confirmed by patient verbally and Name and Date of confirmed by identification band. PATIENT GENDER DATA: Male PATIENT RELEVANT IMPLANT DATA REVIEWED: Yes ALLERGIES: Reviewed and unchanged MEDICATIONS REVIEWED: YES IV SITE: Ambulatory: A peripheral IV was started in the Right antecubital site with a Angio cath/Butterfly: 22 gauge. PERIPHERAL IV ACCESS: Discontinued ANXIOLYSIS/ANESTHESIA: Xanax 0.5 mg SL Exam not completed, pt became claustrophobic with 0.5mg anxiolysis. Paged Dr. Yao, would not order an additional dose of medication. Pt tried exam a second time, and decided he could not complete. PATIENT DISCHARGED TO: Home/Self Care SIGNED BY: Isai Sneed RN January 13, 2023 1:23 PM Normal [facility] MRI LIVER WO/W IVCONon 10-01 MRI LIVER WO/W IVCON * * *Final Report* * * DATE OF EXAM: Oct 01 2022 11:10AM [facility] 0727 - MRI LIVER WO/W IVCON / PROCEDURE REASON: Hepatocellular carcinoma (HCC) * * * * Physician Interpretation * * * * TITLE: MRI OF THE LIVER WITH IV CONTRAST DATE: 10/01/2022 INDICATION: Hepatocellular carcinoma COMPARISON: Ultrasound-guided liver biopsy 08/20/2022, CT angiogram chest, abdomen and pelvis 10/03/2022 TECHNIQUE: Series of T1, T2 and diffusion-weighted sequences through the abdomen were performed both prior to and after the administration of 20 mL of Dotarem IV contrast. FINDINGS: Limitations: Image quality on the arterial phase postcontrast series is somewhat degraded by artifact. Liver: There is diffuse hepatic steatosis with an area focal fatty sparing along the posterior aspect of segments 3 and IVb. -4 cm x 3.3 cm mass within segment 6. This mass enhances during the arterial phase of contrast enhancement with some apparent washout on the delayed phase of contrast enhancement and rim enhancement. This correlates with biopsy-proven hepatocellular carcinoma. -There is a 0.7 cm high T2 signal lesion along the dome of the right lobe of the liver (4:11). This lesion enhances on the delayed postcontrast images (18:30). The appearance is nonspecific. Gallbladder and biliary tree: Multiple cholelithiasis. There is no intra or extrahepatic biliary dilatation. Adrenal glands: No adrenal mass. Spleen: No splenomegaly or splenic mass. Pancreas: No pancreatic duct dilatation or evidence of pancreatic mass. Kidneys: No renal mass or hydronephrosis. There is a 1.2 cm cyst in the upper pole of the right kidney and additional subcentimeter cysts in both kidneys. Aorta and vasculature: The abdominal aorta is normal caliber and widely patent. Celiac trunk and its branches are widely patent. Superior mesenteric artery is widely patent. Splenic, superior mesenteric and portal veins are patent. The hepatic veins are patent. Small splenorenal shunt. Lymph nodes: No enlarged abdominal lymph nodes. GI:The included loops of bowel are unremarkable. Mesentery and peritoneum:No ascites. No peritoneal mass. Other findings: Osseous structures are unremarkable. Lower thorax: Lung bases are unremarkable. IMPRESSION: There is a 4 x 3.3 cm mass within segment 6 of the liver correlating with biopsy proven hepatocellular carcinoma. Indeterminant 0.7 cm lesion along the dome of the liver. Possibly a small hemangioma but poorly characterize due to its small size. Imaging follow-up of this lesion is recommended. No evidence of metastatic disease in the abdomen and pelvis. Hepatic steatosis. Small splenorenal shunt. Cholelithiasis. Surface Room Shop Optician: [facility] Transcribe Date/Time: Oct 06 2022 8:46A Dictated by : BETH RAE MD This examination was interpreted and the report reviewed and electronically signed by: BETH RAE MD on Oct 06 2022 9:24AM EST [id number] Normal [facility] Russel 08-24-2022 L -- ---- Specimen: [id number] Received: 08/24/22 Status: ANTONELLA Rubalcava Num: [id number] Spec Type: Surgical Subm Dr: Harlan Negrete MD Tissues: A Skin-Other than Cyst, tag, debridement or plastic repair (LT FOREHEAD) Procedures: MART 1/CAROLYN PERALES, Gross/Micro L4, SOX-10 ---- Age/ Patient Sex Location Account Attending Physician ---- Jon Bauer 71/M [place] [id number] Harlan Negrete MD ---- SPEC NUM: [id number] RECD: 08/24/22 STATUS: ANTONELLA FLAHERTYLiset NUM: [id number] CHERELLE: 08/24/[address] [facility] [address]: Harlan Negrete MD ENTERED: 08/24/[address] [facility] [address]: YVONNE TYPE: Surgical DEPT: S ORDERED: MART 1/CAROLYN PERALES, Gross/Micro L4, SOX-10 ORDERED: MART 1/DAVID A, HE, Gross/Micro L4, SOX-10 Pathological Diagnosis Skin, left forehead lesion, excision: - Benign skin with underlying dermal solar elastosis and non-specific mild chronic inflammation. - Negative for malignancy. Note: Immunohistochemical stain (SOX-10 and Melan-A) were performed with satisfactory controls support the above diagnosis. Clinical Information Mass, increasing in size, primary biopsy, D 49.2neoplasm of unspecified behavior of bone, soft tissue and skin Gross Description Received in formalin labeled with the patient's name, number and left forehead is a 1.3 x 0.6 cm ellipse of herman white skin excised to a depth of 0.4 cm. No discrete lesion is identified on the skin surface. The specimen is inked and sectioned transversely. Entirely submitted in one cassette labeled A1. ---- Specimen: [id number] Received: 08/24/22 Status: ANTONELLA Rubalcava Num: [id number] Spec Type: Surgical Subm Dr: Harlan Negrete MD Tissues: A Skin-Other than Cyst, tag, debridement or plastic repair (LT FOREHEAD) Procedures: MART 1/CAROLYN PERALES Gross/Paris Bright, SOX-10 ---- Patient: Jon Bauer [id number] (Continued) ---- Specimen: [id number] Received: 08/24/22 (Continued) Signed (signature on file) Charo Salas MD 08/25/22 1531 ---- Specimen: [id number] Received: 08/24/22 Status: ANTNOELLA Rubalcava Num: [id number] Spec Type: Surgical Subm Dr: Harlan Negrete MD Tissues: A Skin-Other than Cyst, tag, debridement or plastic repair (LT FOREHEAD) Procedures: MART 1/CAROLYN PERALES, Jojo/Paris L4, SOX-10 ---- Patient: GlendyirwinJon [id number] (Continued) ---- Specimen: Received: 08/24/22 (Continued) Microscopic Description One glass slide with H E stained material has been examined. The microscopic findings support the above pathologic diagnosis. CPT Codes 75111, 05779, 46465 ---- ---- Specimen: [id number] Received: 08/24/22 Status: ANTONELLA Rubalcava Num: [id number] Spec Type: Surgical Subm Dr: Harlan Negrete MD Tissues: A Skin-Other than Cyst, tag, debridement or plastic repair (LT FOREHEAD) Procedures: MART /CAROLYN PERALES Gross/Paris Bright, SOX-10 ---- Patient: Jon Bauer [id number] (Continued) ---- Signed (signature on file) Charo Salas MD 08/25/22 1531 [facility] CNPJoy 08-09-2022 [facility] Telephone (IRRFV) JON BAUER ( ) 1950 M [facility] Date Time Provider Department 08/09/22 AUDELIA THOMAS During your visit today, we recorded the following information about you: Audelia Thomas 08/09/2022 8:[address] images are in. Sending for review. Allergies As of Date: 08/09/2022 Noted Allergy Reaction OSELTAMIVIR 03/17/2022 14 - Other: See Comments Date Reviewed: 08/06/2022 Reviewed by: Soha Nunn APRN.HIM MANAGER - Fully Assessed Reason for Visit: Liver BX [Other] Prescriptions as of 08/09/2022 - dicyclomine (BENTYL) 20 mg tablet - doxycycline (VIBRA-TABS) 100 mg tablet Take 100 mg by mouth twice daily. - mupirocin (BACTROBAN) 2 % ointment - REVLIMID 5 mg capsule TAKE 1 CAPSULE BY MOUTH 1 TIME DAILY. - BASAGLAR KWIKPEN U-100 INSULIN 100 unit/mL (3 mL) INJECT TEN UNITS SUBCUTANEOUSLY ONCE DAILY - nystatin (MYCOSTATIN) 100,000 unit/mL suspension TAKE 4 ML BY MOUTH swish in mouth for as long as possible BEFORE swallowing FOUR TIMES DAILY FOR 10 DAYS - VICTOZA 2-REGULO 0.6 mg/0.1 mL (18 mg/3 mL) Inject 1.8 mg subcutaneously. - triamcinolone acetonide (KENALOG) 0.1 % ointment - gabapentin (NEURONTIN) 100 mg capsule Take 1 capsule by mouth daily at bedtime for 30 days. - rOPINIRole (REQUIP) 2 mg tablet Take 1 tablet by mouth daily at bedtime. - escitalopram oxalate (LEXAPRO) 10 mg tablet Take 1 tablet by mouth once daily. - Cholecalciferol, Vitamin D3, (VITAMIN D) 25 mcg (1,000 unit) cap Take 2 capsules by mouth once daily. - atorvastatin (LIPITOR) 10 mg tablet Take 10 mg by mouth once daily. - cetirizine (ZYRTEC) 10 mg tablet Take 10 mg by mouth once daily. - dapagliflozin (FARXIGA) 10 mg tablet Take 10 mg by mouth daily with breakfast. - glipiZIDE 10 mg tablet Take 10 mg by mouth once daily. 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] 08/20/2020 Hypertension [I10] 08/20/2020 Type 2 diabetes (HCC) [E11.9] 08/20/2020 Elevated LFTs [R79.89] 08/20/2020 Multiple myeloma (HCC) [C90.00] 09/17/2020 Chemotherapy-induced nausea [R11.0, T45.1X5A] 09/17/2020 Pancytopenia due to antineoplastic chemotherapy* Hypercholesteremia [E78.00] 09/17/2020 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HCC*09/17/2020 Depression [F32.A] 09/18/2020 Restless leg syndrome [G25.81] 09/18/2020 Constipation [K59.00] 09/19/2020 Diarrhea [R19.7] 09/27/2020 10/04/2020 Occult blood in stools [R19.5] 10/04/2020 Flatus [R14.3] 10/04/2020 Decreased appetite [R63.0] 10/04/2020 Oral thrush [B37.0] 10/04/2020 Xeroderma [Q80.9] 10/04/2020 Pruritus [L29.9] 10/04/2020 At risk for infection due to immunosuppression *10/04/2020 Immunodeficiency (HCC) [D84.9] 10/04/2020 At risk for fluid and electrolyte imbalance [Z9*10/04/2020 Hypokalemia [E87.6] 10/04/2020 Orthostatic hypotension [I95.1] 10/04/2020 LEEANNA (acute kidney injury) (HCC) [N17.9] 10/28/2020 Renal insufficiency [N28.9] 11/11/2020 Malnutrition of moderate degree (HCC) [E44.0] 06/11/2022 Encounter Status:Closed by AUDEL[facility]AS [facility]22 [facility] Natriuretic peptide B (Bld) [Mass/Vol] 68.0 pg/mL Normal <=900.0 [facility] Comment on above: Performed By: #### L IPA, CMP, BNP, HSTROPN #### [facility] [address] [place], [place] [address] Dr. Rasheeda Issa CBC AUTO DIFFon 08-03-2022 BASO # 0.0 103/ul Normal 0.0-0.1 [facility] Comment on above: Performed By: #### C BC ####[facility] [address] [place] [address]Dr. Rasheeda Issa Basophils/100 WBC (Bld) 0.4 % Normal 0.2-2.0 [facility] Comment on above: Performed By: #### C BC ####[facility] [address] [place] [address]DrLeo Issa EO # 0.2 103/ul Normal 0.0-0.7 [facility] Comment on above: Performed By: #### C BC ####[facility] [address] [place] [address]Dr. Rasheeda Issa Eosinophils/100 WBC (Bld) 3.2 % Normal 0.9-7.0 [facility] Comment on above: Performed By: #### C BC ####[facility] [address] [place] [address]Dr. Rasheeda Issa Erythrocyte distribution width (RBC) [Ratio] 14.5 % Normal 11.0-15.0 [facility] Comment on above: Performed By: #### C BC ####[facility] [address] [place] [phone] Issa Hematocrit (Bld) [Volume fraction] 44.6 % Normal 42.0-54.0 [facility] Comment on above: Performed By: #### C BC ####[facility] [address] [place] [id number] Issa Hemoglobin (Bld) [Mass/Vol] 15.6 g/dL Normal 14.0-18.0 [facility] Comment on above: Performed By: #### C BC ####[facility] [address] [place] [id number]. Rasheeda Issa IG # 0.02 10e3/ul Normal 0.00-0.03 [facility] Comment on above: Performed By: #### C BC ####[facility] [address] [place] [id number]. Rasheeda Issa IG % 0.4 % Normal 0.0-0.5 [facility] Comment on above: Performed By: #### C BC ####[facility] [address] [place] [address]Dr. Rasheeda Issa LYMPH # 1.1 103/ul Critically low 1.2-3.8 [facility] Comment on above: Performed By: #### C BC ####[facility] [address] [place] [address]Dr. Rasheeda Issa Lymphocytes/100 WBC (Bld) 19.5 % Critically low 20.5-60.0 [facility] Comment on above: Performed By: #### C BC ####[facility] [address] [place] [address]DrLeo Issa MANUAL DIFF REQ NO Normal [facility] Comment on above: Performed By: #### C BC ####[facility] [address] [place] [phone]. Rasheeda Issa MCH (RBC) [Entitic mass] 31.9 pg Normal 25.9-34.0 [facility] Comment on above: Performed By: #### C BC ####[facility] [address] [place] [id number]. Rasheeda Issa MCHC (RBC) [Mass/Vol] 35.0 g/dL Normal 29.9-35.2 [facility] Comment on above: Performed By: #### C BC ####[facility] [address] [place] [id number]. Rasheeda Issa MCV (RBC) [Entitic vol] 91.2 fL Normal 80.0-94.0 [facility] Comment on above: Performed By: #### C BC ####[facility] [address] [place] [id number]. Rasheeda Issa MONO # 0.5 103/ul Normal 0.3-0.8 [facility] Comment on above: Performed By: #### C BC ####[facility] [address] [place] [id number]. Rasheeda Issa Monocytes/100 WBC (Bld) 8.1 % Normal 1.7-12.0 [facility] Comment on above: Performed By: #### C BC ####[facility] [address] [place] [address]Dr. Rasheeda Issa NEUT # 3.8 103/ul Normal 1.4-6.5 [facility] Comment on above: Performed By: #### C BC ####[facility] [address] [place] [address]Dr. Rasheeda Issa Neutrophils/100 WBC (Bld) 68.4 % Normal 43.0-75.0 [facility] Comment on above: Performed By: #### C BC ####[facility] [address] [place] [address]Dr. Rasheeda Issa Platelet mean volume (Bld) [Entitic vol] 8.8 fL Critically low 9.5-13.5 [facility] Comment on above: Performed By: #### C BC ####[facility] [address] [place] [address]Dr. Rasheeda Issa PLT 90 103/ul Critically low 150-450 [facility] Comment on above: Performed By: #### C BC ####[facility] [address] [place] [id number]. Rasheeda Issa RBC 4.89 106/ul Normal 4.70-6.10 [facility] [place] [facility] Comment on above: Performed By: #### C BC ####[facility] [address] [place] [id number]. Rasheeda Issa WBC 5.6 103/ul Normal 4.0-11.0 [facility] [place] [facility] Comment on above: Performed By: #### C BC ####[facility] [address] [place], [place] [address]Ka. Rasheeda Issa CTA ABD/PELVIS WO W CONon CTA ABD/PELVIS WO W CON EXAMINATION: CTA CHEST WO W CON, CTA ABD/PELVIS WO W CON HISTORY: SHORTNESS OF BREATH, acute chest pain, left-sided abdominal pain. reported current multiple myeloma. COMPARISON: Chest x-ray 12/17/2020, CT abdomen pelvis 12/16/2020 TECHNIQUE: CT angiography of the pulmonary arteries following the administration of 100 mL Omnipaque 350 intravenous contrast. Coronal and sagittal MIP (maximum intensity projection) images were performed. 3-D reconstruction. CT angiogram abdomen pelvis with 100 mL Omnipaque 350 IV contrast. Multiple axial views coronal and sagittal reformats. 3-D reconstruction. Dose reduction techniques were achieved by using automated exposure control and/or adjustment of mA and/or kV according to patient size and/or use of iterative reconstruction technique. FINDINGS: CHEST: No evidence for acute pulmonary embolism from the main to the bilateral segmental pulmonary arteries. The bilateral subsegmental pulmonary arteries are obscured by respiratory motion. No thoracic aortic aneurysm or aortic dissection. Extensive left greater than right coronary artery calcifications. No enlarged heart size or large pericardial effusion. Central airway is patent. Bilateral lower lung linear atelectasis/respirator y motion. No discrete lung consolidation, large pleural effusions, pneumothorax, or suspicious groundglass lung infiltrates. Chronic arthritic changes of the visualized bony structures. No acute bony abnormality. ABDOMEN AND PELVIS: 2.7 cm fusiform infrarenal abdominal aortic aneurysmal dilation without discrete dissection flap or periaortic fluid/hematoma. Moderate amount of scattered atheromatous calcified and noncalcified plaque throughout the abdominal aorta and bilateral common iliac arteries without focal occlusion or severe stenosis. The celiac artery, superior mesenteric artery, bilateral renal arteries, and inferior mesenteric artery are patent. Multiple gallstones at the gallbladder fundus without pericholecystic fluid or inflammatory stranding. A developing 4.1 cm rim-enhancing mass with targetoid appearance at the right inferior hepatic lobe (image 92 series 5). Developing undulating contour with slight nodularity of the anterior liver surface. Splenomegaly, measuring 14 cm craniocaudal length. Pancreas, adrenal glands, urinary bladder, and appendix are unremarkable. Bilateral 1-2 cm renal cystic structures, similar to prior CT 12/16/2020. Prostate measures 4.5 cm transverse diameter. Mild gastroesophageal wall thickening. Stomach is underdistended. Moderate colonic diverticula without pericolonic inflammatory stranding. Moderate amount of stool within the large bowel. No evidence for small bowel obstruction, large ascites, or free air. No acute bony abnormality. Chronic arthritic changes of the visualized bony structures. IMPRESSION: CHEST: No evidence for acute pulmonary embolism from the main to the bilateral segmental pulmonary arteries. The bilateral subsegmental pulmonary arteries are obscured by respiratory motion. No thoracic aortic aneurysm or aortic dissection. Extensive left greater than right coronary artery calcifications. No enlarged heart size or large pericardial effusion. ABDOMEN AND PELVIS: 2.7 cm fusiform infrarenal abdominal aortic aneurysmal dilation without discrete dissection flap or periaortic fluid/hematoma. Mild gastroesophageal wall thickening. Finding could reflect sequela of recent or prior gastroesophageal wall inflammation. Correlate clinically. A developing 4.1 cm rim-enhancing mass with targetoid appearance at the right inferior hepatic lobe (image 92 series 5). MRI abdomen with IV contrast to further evaluate recommended. Developing undulating contour with slight nodularity of the anterior liver surface. Correlate clinically for sequela of hepatocellular disease or cirrhotic morphology. Multiple gallstones at the gallbladder fundus without pericholecystic fluid or inflammatory stranding. Splenomegaly. Colonic diverticula. Electronically authenticated by: RUSSELL RIVERA Date: 2022-08-03 02:34 Normal [facility]08 SARS-CoV-2 (COVID-19) RNA GARCIA+probe Ql (Unsp spec) Not detected Normal NOT DETECTED [facility] Comment on above: Result Comment: When diagnostic testing is negative, the possibility of a false negative should be considered in the context of a patient's recent exposures and the presence of clinical signs and symptoms consistent with SARS-CoV-2. This test is not yet approved or cleared by the [place] FDA. When there are no FDA-approved or cleared tests available, and other criteria are met, FDA can make tests available under an emergency access mechanism called an Emergency Use Authorization (EUA). The EUA for this test is supported by the [place] [employer] of Health and Human Service's declaration that circumstances exist to justify the emergency use of in vitro diagnostics for the detection and/or diagnosis of the virus that causes COVID-19. This EUA will remain in effect for the duration of the COVID-19 declaration justifying emergency of IVDs, unless it is terminated or revoked by the FDA (after which the test may no longer be used). Performed By: #### C VDTB ####[facility] [id number] [address]Dr. Rasheeda Issa ER URINE PROFILEon 3 Bilirubin Ql (U) Negative Normal NEGATIVE The [facility] Comment on above: Performed By: #### BRANDI SHORERO #### [facility] [address] [place] [address] Dr. Rasheeda Issa Clarity (U) CLEAR Normal CLEAR [facility] Comment on above: Performed By: #### BRANDI SHORERO #### [facility] [address] [place] [address] Dr. Rasheeda Issa Color (U) LT. YELLOW Normal YELLOW [facility] Comment on above: Performed By: #### BRANDI SHORERO #### [facility] [address] [place] [address] Dr. Rasheeda SOLER A micrscopic examination will be performed if indicated. Normal [facility] Comment on above: Performed By: #### BRANDI SHORERO #### [facility] [address] [place] [address] Dr. Rasheeda Issa Glucose Ql (U) 1000 mg/dl Abnormal NEGATIVE The [facility] Comment on above: Performed By: #### GISELLE SHOREICRO #### [facility] [address] [place] [address] Dr. Rasheeda Issa Hemoglobin Ql (U) TRACE-INTACT Abnormal NEGATIVE The [facility] Comment on above: Performed By: #### BRANDI SHORERO #### [facility] [address] [place] [address] Dr. Rasheeda Issa Ketones Ql (U) Negative Normal NEGATIVE [facility] Comment on above: Performed By: #### BRANDI SHORERO #### [facility] [address] [place] [address] Dr. Rasheeda Issa LEUKOCYTES Negative Normal NEGATIVE [facility] Comment on above: Performed By: #### Amelia DOMINGUEZ, UMICRO #### [facility] [address] [place] [address] Dr. Rasheeda Issa Nitrite Ql (U) Negative Normal NEGATIVE [facility] Comment on above: Performed By: #### Amelia DOMINGUEZ, UMICRO #### [facility] [address] [place] [address] Dr. Rasheeda Issa pH (U) 5.5 [pH] Normal 5-9 [facility] Comment on above: Performed By: #### Amelia DOMINGUEZ, UMICRO #### [facility] [address] [place] [address] Dr. Rasheeda Issa Protein (U) [Mass/Vol] 100 mg/dL Abnormal NEGAT NAVEED/ TRACE [facility] Comment on above: Performed By: #### Amelia DOMINGUEZ UMICRO #### [facility] [address] [place] [address] Dr. Rasheeda Issa SPEC GRAVITY <=1.005 Abnormal 1.005-<=1.02 5 [facility] Comment on above: Performed By: #### Amelia DOMINGUEZ UMICRO #### [facility] [address] [place] [address] Dr. Rasheeda Issa UR MICRO IND INDICATED Normal [facility] Comment on above: Performed By: #### Amelia DOIMNGUEZ UMICRO #### [facility] [address] [place] [address] Dr. Rasheeda Issa Urobilinogen Qn (U) 0.2 {Luis Armando'U}/dL Normal 0.2 - 1. 0 [facility] Comment on above: Performed By: #### Amelia DOMINGUEZ, UMICRO #### [facility] [address] [place] [address] Dr. Rasheeda Issa INFLUENZA A AND B AGon 08-03 INFLUANEGH SEE BELOW Normal [facility] Comment on above: Result Comment: Nega tive for Flu A protein angiten. Infection due to Flu A cannot be ruled out. Flu A angiten in the sample may be below the detection limit of the test. Performed By: #### I NFLUAB #### [facility] [address] [place] [address] Dr. Rasheeda Issa [facility] SEE BELOW Normal [facility] Comment on above: Result Comment: Nega tive for Flu B protein antigen. Infection due to Flu B cannot be ruled out. Flu B antigen in the sample may be below the detection limit of the test. Performed By: #### I NFLUAB #### [facility] [address] [place] [address] Dr. Rasheeda Issa INFLUENZA A AG Negative Normal NEGATIVE SEE COMMENT [facility] Comment on above: Performed By: #### I NFLUAB #### [facility] [address] [place] [address] Dr. Rasheeda Issa INFLUENZA B AG Negative Normal NEGATIVE SEE COMMENT [facility] Comment on above: Performed By: #### I NFLUAB #### [facility] [address] [place] [address] Dr. Rasheeda Issa LACTATE/LACTIC ACIDon 2022 Lactate [Moles/Vol] 1.5 mmol/L Normal 0.4-2.0 [facility] Comment on above: Performed By: #### L ACT ####[facility] [id number] [address]Dr. Rasheeda Issa Lactate [Moles/Vol] 2.2 mmol/L Critically high 0.4-2.0 [facility] Comment on above: Performed By: #### L ACT #### [facility] [address] [place] [address] Dr. Rasheeda Issa LIPASEon 08-03-2022 Lipase [Catalytic activity/Vol] 193.0 U/L Normal 73.0-393.0 [facility] Comment on above: Performed By: #### L IPA, CMP, BNP, HSTROPN #### [facility] [address] [place] [address] Dr. Rasheeda Issa PROF 14(COMP METB)on 023 Albumin [Mass/Vol] 3.5 g/dL Normal 3.4-5.0 [facility] Comment on above: Performed By: #### L IPA, CMP, BNP, HSTROPN #### [facility] [address] [address] [address] Rasheeda Issa Albumin/Globulin [Mass ratio] 1.0 {ratio} Normal [facility] Comment on above: Performed By: #### L IPA, CMP, BNP, HSTROPN #### [facility] [address] [address] [address] Rasheeda Issa ALP [Catalytic activity/Vol] 101 U/L Normal 46-116 [facility] Comment on above: Performed By: #### L IPA, CMP, BNP, HSTROPN #### [facility] [address] [address] [address] Rasheeda Issa ALT [Catalytic activity/Vol] 53 U/L Normal 16-63 [facility] Comment on above: Performed By: #### L IPA, CMP, BNP, HSTROPN #### [facility] [address] [place] [address] Dr. Rasheeda Issa Anion gap [Moles/Vol] 16.7 mmol/L Normal [facility] Comment on above: Performed By: #### L IPA, CMP, BNP, HSTROPN #### [facility] [address] [place] [address] Dr. Rasheeda Issa AST [Catalytic activity/Vol] 39 U/L Critically high 15-37 [facility] Comment on above: Performed By: #### L IPA, CMP, BNP, HSTROPN #### [facility] [address] [address] [address] Rasheeda Issa Bilirubin [Mass/Vol] 0.7 mg/dL Normal 0.2-1.0 [facility] Comment on above: Performed By: #### L IPA, CMP, BNP, HSTROPN #### [facility] [address] [place] [address] Dr. Rasheeda Issa Calcium [Mass/Vol] 8.8 mg/dL Normal 8.5-10.1 [facility] Comment on above: Performed By: #### L IPA, CMP, BNP, HSTROPN #### [facility] [address] [address] [address] Rasheeda Issa Chloride [Moles/Vol] 100 mmol/L Normal 98-107 [facility] Comment on above: Performed By: #### L IPA, CMP, BNP, HSTROPN #### [facility] [address] [address] [address] Rasheeda Issa CO2 [Moles/Vol] 23.0 mmol/L Normal 21.0-32.0 [facility] Comment on above: Performed By: #### L IPA, CMP, BNP, HSTROPN #### [facility] [address] [place] [address] Dr. Rasheeda Issa Creatinine [Mass/Vol] 1.20 mg/dL Normal 0.70-1.30 [facility] Comment on above: Performed By: #### L IPA, CMP, BNP, HSTROPN #### [facility] [address] [place] [address] Dr. Rasheeda Issa EGFR-AF DOMINICAN >60 Normal >=60 [facility] Comment on above: Performed By: #### L IPA, CMP, BNP, HSTROPN #### [facility] [address] [place] [address] Dr. Rasheeda Issa EGFR-NON AF DOMINICAN =60 Normal >=60 [facility] Comment on above: Performed By: #### L IPA, CMP, BNP, HSTROPN #### [facility] [address] [place] [address] Dr. Rasheeda Issa Globulin (S) [Mass/Vol] 3.4 g/dL Normal [facility] Comment on above: Performed By: #### L IPA, CMP, BNP, HSTROPN #### [facility] [address] [place] [address] Dr. Rasheeda Issa Glucose [Mass/Vol] 287 mg/dL Critically high 74-106 [facility] Comment on above: Performed By: #### L IPA, CMP, BNP, HSTROPN #### [facility] [address] [place] [address] Dr. Rasheeda Issa Potassium [Moles/Vol] 3.7 mmol/L Normal 3.5-5.1 [facility] Comment on above: Performed By: #### L IPA, CMP, BNP, HSTROPN #### [facility] [address] [address] [address] Rasheeda Issa Protein [Mass/Vol] 6.9 g/dL Normal 6.4-8.2 The [facility] Comment on above: Performed By: #### L IPA, CMP, BNP, HSTROPN #### [facility] [address] [address] [address] Rasheeda Issa Sodium [Moles/Vol] 136 mmol/L Normal 136-145 [facility] Comment on above: Performed By: #### L IPA, CMP, BNP, HSTROPN #### [facility] [address] [address] [address] Rasheeda Issa Urea nitrogen [Mass/Vol] 25.0 mg/dL Critically high 7.0-18.0 [facility] Comment on above: Performed By: #### L IPA, CMP, BNP, HSTROPN #### [facility] [address] [address] [address] Rasheeda Issa Urea nitrogen/Creatinine [Mass ratio] 20.8 mg/mg Normal [facility] Comment on above: Performed By: #### L IPA, CMP, BNP, HSTROPN #### [facility] [address] [address] [address] Rasheeda Issa TROPONIN, HIGH SENSITIVITYon 08-03-2022 HSTROP 9.2 pg/mL Normal 4.0-76.1 [facility] Comment on above: Result Comment: CUT- OFF POINTS HAVE BEEN ESTABLISHED BASED ON THE FOURTH UNIVERSAL DEFINITIONS OF MYOCARDIAL INFARCTION. THE UPPER REFERENCE LIMIT (URL) OF TROPONIN, DEFINED THE 99TH PERCENTILE OF cTnI DISTRIBUTION IN A REFERENCE POPULATION, HAS BEEN CONFIRMED THE DECISION THRESHOLD FOR ND DIAGNOSIS. Performed By: #### H STROPN ####[facility] [id number] [address]Dr. Rasheeda Issa HSTROP 9.5 pg/mL Normal 4.0-76.1 [facility] Comment on above: Result Comment: CUT- OFF POINTS HAVE BEEN ESTABLISHED BASED ON THE FOURTH UNIVERSAL DEFINITIONS OF MYOCARDIAL INFARCTION. THE UPPER REFERENCE LIMIT (URL) OF TROPONIN, DEFINED THE 99TH PERCENTILE OF cTnI DISTRIBUTION IN A REFERENCE POPULATION, HAS BEEN CONFIRMED THE DECISION THRESHOLD FOR ND DIAGNOSIS. Performed By: #### L IPA, CMP, BNP, HSTROPN #### [facility] [address] [place] [address] Dr. Rasheeda Issa URINE MICROSCOPIC ONLYon BACTERIA NONE SEEN Normal NONE SEEN [facility] Comment on above: Performed By: #### E RUR, UMICRO #### [facility] [address] [place] [address] Dr. Rasheeda Issa Bacteria identified Cx Nom (U) NOT INDICATED Normal [facility] Comment on above: Performed By: #### E RUR, UMICRO #### [facility] [address] [place] [address] Dr. Rasheeda Issa CAST NONE SEEN Normal NONE SEEN [facility] Comment on above: Performed By: #### E RUR, UMICRO #### [facility] [address] [place] [address] Dr. Rasheeda Issa Crystals LM Nom (Urine sed) NONE SEEN Normal NONE SEEN [facility] Comment on above: Performed By: #### E RUR, UMICRO #### [facility] [address] [place] [address] Dr. Rasheeda Issa Epithelial cells LM Ql (Urine sed) NONE SEEN Normal NONE SEEN /RARE [facility] Comment on above: Performed By: #### E RUR, UMICRO #### [facility] [address] [place] [address] Dr. Rasheeda Issa MUCOUS NONE SEEN Normal NONE SEEN [facility] Comment on above: Performed By: #### E RUR, UMICRO #### [facility] [address] [place] [address] Dr. Rasheeda Issa RBC 0-2 Normal 0-2 [facility] Comment on above: Performed By: #### E RUR, UMICRO #### [facility] [address] [address] [address] Rasheeda Issa WBC 0-2 Abnormal NONE SEEN [facility] Comment on above: Performed By: #### E JASON DOMINGUEZ #### [facility] [address] [place] [address] Dr. Rasheeda Issa Superficial Wound Cultureon 06-28-2022 Superficial Wound Culture ORGANISM: Staphylococcus aureus (O:STAAUR) Quantity of Growth Heavy Growth Aerobic BRYAN Charge (PCMIC38) --- SUSCEPTIBILITY -- ORGANISM: O:STAAUR ANTIBIOTIC INTERPRETATION BRYAN Azithromycin R >4 Ceftaroline S <0.5 Ciprofloxacin R >2 Clindamycin S <0.25 Daptomycin S 1 Levofloxacin R >4 Linezolid S 4 Oxacillin S 0.5 Penicillin ZAID >2 Tetracycline S <4 Trimethoprim/Sulfameth oxazole S <0.5 Vancomycin S 1 S = SUSCEPTIBLE I = INTERMEDIATE R = RESISTANT BLANK = DATA NOT AVAILABLE, OR DRUG NOT ADVISABLE OR TESTED R* = RESISTANCE DUE TO EXTENDED SPECTRUM BETA-LACTAMASES ESBL = EXTENDED SPECTRUM BETA-LACTAMASE TFG = THYMIDINE-DEPENDENT STRAIN ZAID = BETA-LACTAMASE POSITIVE IB = INDUCIBLE BETA-LACTAMASE. APPEARS IN PLACE OF 'S' WITH SPECIES KNOWN TO POSSESS INDUCIBLE BETA-LACTAMASES. POTENTIALLY THEY MAY BECOME RESISTANT TO ALL B-LACTAM DRUGS. PERFORMED BY: [place] [address] PATHOLOGIST MANAGER TALENT AMBER NAVARRETE M.D. Normal [facility] Comment on above: Performed By: #### C USUP #### [facility] [address] UA DIP, URINE (POC)on 2022 BILIRUBIN UA (POCT) Negative Negative [facility] CLARITY UA (POCT) Clear [facility] COLOR UA (POCT) Yellow [facility] GLUCOSE UA (POCT) >=1000 Abnormal Negative mg/dL [facility] HEMOGLOBIN/BLOOD UA (POCT) Trace-intact Abnormal Negative [facility] KETONE UA (POCT) Negative Negative mg/dL [facility] LEUKOCYTES UA (POCT) Negative [facility] NITRITE UA (POCT) Negative Negative [facility] PH UA (POCT) 6.0 4.5 - 8.0 [facility] Protein Ql (U) Trace Abnormal Negative mg/dL [facility] SPECIFIC GRAVITY UA (POCT) 1.015 1.005 - 1.030 [facility] UROBILINOGEN UA (POCT) 0.2 E.U./dL Twila l E.U./dL [facility] Aerobic cultureOrdered By: Yue Pascal on 04-06-2022 Bacteria identified Aer cx Nom (Unsp spec) No Growth 2 Days [facility] Superficial Wound Cultureon 04-06-2022 Superficial Wound Culture No Growth 2 Days PERFORMED BY: [place] [address] PATHOLOGIST MANAGER TALENT AMBER NAVARRETE M.D. [facility] Comment on above: Performed By: #### C USUP #### [address] Bacteria identified Aer cx N om (Unsp spec)Ordered By: Mena Nunez on 12-06-2021 Superficial Wound Culture Staphylococcus aureus [facility] Basic Metabolic Panelon 11-07 Calcium [Mass/Vol] 9.8 mg/dL Normal 8.2-10.2 [facility] Comment on above: Performed By: #### C BC, BMP #### [place] [address] [place] Chloride [Moles/Vol] 101 mmol/L Normal 95-114 [facility] Comment on above: Performed By: #### C BC, BMP #### [facility] [address] [place] [address] [place] CO2 [Moles/Vol] 26.3 mmol/L Normal 22.0-30.[address] [facility] Comment on above: Performed By: #### C BC, BMP #### [facility] [address] [place] [address] [place] Creatinine [Mass/Vol] 1.25 mg/dL Normal 0.64-1.27 [facility] Comment on above: Performed By: #### C BC, BMP #### [facility] [address] [place] [address] [place] Creatinine Clr Calc Pharmacy 69.94 [facility] Comment on above: Result Comment: PERF ORMED BY: [place] [address] PATHOLOGIST MANAGER TALENT AMBER NAVARRETE M.D. Performed By: #### C BC, BMP #### [address] Estimated GFR ( Ethel > 60 [facility] Comment on above: Result Comment: GFR estimated reference range: According to KDOQI guidelines, <60 ml/min/1.73m2 is sufficient to diagnose a patient with chronic kidney disease. Performed By: #### C BC, BMP #### [address] Estimated GFR (Non- Am 57 [facility] Comment on above: Performed By: #### C BC, BMP #### [address] Glucose [Mass/Vol] 352 mg/dL High 70-100 [facility] Comment on above: Result Comment: [place] Glucose Reference Range is dependent on time and content of last meal. Glucose of more than 200 mg/dL in a nonstressed, ambulatory subject supports the diagnosis of Diabetes Mellitus. ADA recommended reference range Performed By: #### C BC, BMP #### [place] [address] [place] Potassium [Moles/Vol] 4.6 mmol/L Normal 3.5-5.1 [facility] Comment on above: Performed By: #### C BC, BMP #### [place] [address] [place] Sodium [Moles/Vol] 136 mmol/L Normal 136-146 [facility] Comment on above: Performed By: #### C BC, BMP #### [address] Urea nitrogen [Mass/Vol] 23 mg/dL Normal 9-23 [facility] Comment on above: Performed By: #### C BC, BMP #### [facility] [address] [place] [address] [place] Basophils Auto (Bld) [#/Vol] Ordered By: Mena Bullimore on 12-04-2021 Basophils (Bld) [#/Vol] 0.0 10*3/uL 0.0-0.2 [facility] Basophils/100 WBC Auto (Bld) Ordered By: Mena Bullimore on 12-04-2021 Basophils/100 WBC (Bld) 1.0 % . [facility] Blood hemoglobin measurement (mass/volume)Ordered By: Mena Bullimore on 12-04-2021 Hemoglobin (Bld) [Mass/Vol] 14.0 g/dL 13.0-17.0 [facility] Blood leukocytes automated c ount (number/volume)Ordered By: Mena Bullimore on 12-04-2021 WBC (Bld) [#/Vol] 4.2 10*3/uL 4.5-11.0 [facility] Complete Blood Count Auto Di ffon 12-04-2021 Basophils (Bld) [#/Vol] 0.0 10*3/uL Normal 0.0-0.2 [facility] Comment on above: Result Comment: PERF ORMED BY: [place] [address] PATHOLOGIST MANAGER TALENT AMBER NAVARRETE M.D. Performed By: #### C BC, BMP #### [facility] [address] [place] [address] [place] Basophils/100 WBC (Bld) 1.0 % Normal . [facility] Comment on above: Performed By: #### C BC, BMP #### [facility] [address] [place] [address] [place] Eosinophils (Bld) [#/Vol] 0.1 10*3/uL Normal 0.0-0.45 [facility] Comment on above: Performed By: #### C BC, BMP #### [facility] [address] [place] [address] [place] Eosinophils/100 WBC (Bld) 3.4 % Normal . [facility] Comment on above: Performed By: #### C BC, BMP #### [address] Erythrocyte distribution width (RBC) [Ratio] 14.8 % Normal 12.0-14.8 [facility] Comment on above: Performed By: #### C BC, BMP #### [address] Hematocrit (Bld) [Volume fraction] 42.0 % Normal 38.8-50.0 [facility] Comment on above: Performed By: #### C BC, BMP #### [address] Hemoglobin (Bld) [Mass/Vol] 14.0 g/dL Normal 13.0-17.0 [facility] Comment on above: Performed By: #### C BC, BMP #### [address] Lymphocytes (Bld) [#/Vol] 1.5 10*3/uL Normal 1.00-4.8 [facility] Comment on above: Performed By: #### C BC, BMP #### [address] Lymphocytes/100 WBC (Bld) 34.8 % Normal . [facility] Comment on above: Performed By: #### C BC, BMP #### [address] MCH (RBC) [Entitic mass] 31.5 pg Normal 27.5-35.2 [facility] Comment on above: Performed By: #### C BC, BMP #### [address] MCV (RBC) [Entitic vol] 94.7 fL Normal 83.5-[address] [facility] Comment on above: Performed By: #### C BC, BMP #### [address] Mean Corpuscular HGB Conc 33.2 g/dL Normal 32.5-35.6 [facility] Comment on above: Performed By: #### C BC, BMP #### [facility] [address] [place] [address] [place] Monocytes (Bld) [#/Vol] 0.5 10*3/uL Normal 0.0-0.8 [facility] Comment on above: Performed By: #### C BC, BMP #### [facility] [address] [place] [address] [place] Monocytes/100 WBC (Bld) 13.2 % Normal . [facility] Comment on above: Performed By: #### C BC, BMP #### [facility] [address] [place] [address] [place] Neutrophils (Bld) [#/Vol] 2.0 10*3/uL Normal 1.8-7.7 [facility] Comment on above: Performed By: #### C BC, BMP #### [facility] [address] [place] [address] [place] Neutrophils/100 WBC (Bld) 47.6 % Normal . [facility] Comment on above: Performed By: #### C BC, BMP #### [facility] [address] [place] [address] [place] Nucleated RBC/100 WBC (Bld) [Ratio] 0.0 % Normal 0-0.5 [facility] Comment on above: Performed By: #### C BC, BMP #### [facility] [address] [place] [address] [place] Platelet mean volume (Bld) [Entitic vol] 7.3 fL Normal 6.6-10.1 [facility] Comment on above: Performed By: #### C BC, BMP #### [facility] [address] [place] [address] [place] Platelets (Bld) [#/Vol] 101 10*3/uL Low 150-450 [facility] Comment on above: Performed By: #### C BC, BMP #### [facility] [address] [place] [address] [place] RBC (Bld) [#/Vol] 4.44 10*6/uL Normal 3.90-5.60 [facility] Comment on above: Performed By: #### C BC, BMP #### [facility] [address] [place] [address] [place] WBC (Bld) [#/Vol] 4.2 10*3/uL Low 4.5-11.0 [facility] Comment on above: Performed By: #### C BC, BMP #### [facility] [address] Creatinine and Glomerular fi ltration rate.predicted panel (S/P/Bld)Ordered By: Mena Montyimore on 12-04-2021 Creatinine [Mass/Vol] 1.25 mg/dL 0.64-1.27 [facility] Eosinophils Auto (Bld) [#/Vo l]Ordered By: Mena [place]imore on 12-04-2021 Eosinophils (Bld) [#/Vol] 0.1 10*3/uL 0.0-0.45 [facility] Eosinophils/100 WBC Auto (Bl d)Ordered By: Mena Bullimore on 12-04-2021 Eosinophils/100 WBC (Bld) 3.4 % . [facility] Erythrocyte distribution wid th Auto (RBC) [Ratio]Ordered By: Mena Millanimore on 12-04-2021 Erythrocyte distribution width (RBC) [Ratio] 14.8 % 12.0-14.8 [facility] Estimated glomerular filtrat ion rate (GFR) non- AmericanOrdered By: Mena Bullimore on 12-04-2021 GFR/1.73 sq M.predicted among non-blacks MDRD (S/P/Bld) [Vol rate/Area] 57 mL/Min [facility] Hematocrit Auto (Bld) [Volum e fraction]Ordered By: Mena Bullimore on 12-04-2021 Hematocrit (Bld) [Volume fraction] 42.0 % 38.8-50.0 [facility] Laboratory - Hematology and Cell countsOrdered By: Mena Bullimore on 12-04-2021 Nucleated RBC/100 WBC (Bld) [Ratio] 0.0 % 0-0.5 [facility] Lymphocytes Auto (Bld) [#/Vo l]Ordered By: Mena Bullimore on 12-04-2021 Lymphocytes (Bld) [#/Vol] 1.5 10*3/uL 1.00-4.8 [facility] Lymphocytes/100 WBC Auto (Bl d)Ordered By: Mena Bullimore on 12-04-2021 Lymphocytes/100 WBC (Bld) 34.8 % . [facility] MCH Auto (RBC) [Entitic mass ]Ordered By: Mena Bullimore on 12-04-2021 MCH (RBC) [Entitic mass] 31.5 pg 27.5-35.2 [facility] MCHC Auto (RBC) [Mass/Vol]Or dered By: Mena Bullimore on 12-04-2021 MCHC (RBC) [Mass/Vol] 33.2 g/dL 32.5-35.6 [facility] MCV Auto (RBC) [Entitic vol] Ordered By: Mena Bullimore on 12-04-2021 MCV (RBC) [Entitic vol] 94.7 fL 83.5-[address] [facility] Monocytes Auto (Bld) [#/Vol] Ordered By: Mena Bullimore on 12-04-2021 Monocytes (Bld) [#/Vol] 0.5 10*3/uL 0.0-0.8 [facility] Monocytes/100 WBC Auto (Bld) Ordered By: Mena Bullimore on 12-04-2021 Monocytes/100 WBC (Bld) 13.2 % . [facility] Neutrophils Auto (Bld) [#/Vo l]Ordered By: Mena Bullimore on 12-04-2021 Neutrophils (Bld) [#/Vol] 2.0 10*3/uL 1.8-7.7 [facility] Neutrophils/100 WBC Auto (Bl d)Ordered By: Mena Bullimore on 12-04-2021 Neutrophils/100 WBC (Bld) 47.6 % . [facility] No Panel InformationOrdered By: Mena Bullimore on 12-04-2021 Estimated GFR () > 60 mL/Min [facility] Comment on above: GFR estimated refere nce range: According to KDOQI guidelines, <60 ml/min/1.73m2 is sufficient to diagnose a patient with chronic kidney disease. Pharmacy Creatinine Clearance (Chem 69.94 [facility] Platelet mean volume Auto (B ld) [Entitic vol]Ordered By: Mena Nunez on 12-04-2021 Platelet mean volume (Bld) [Entitic vol] 7.3 fL 6.6-10.1 [facility] Platelets Auto (Bld) [#/Vol] Ordered By: Mena Nunez on 12-04-2021 Platelets (Bld) [#/Vol] 101 10*3/uL 150-450 [facility] RBC Auto (Bld) [#/Vol]Ordere d By: Mena Nunez on 12-04-2021 RBC (Bld) [#/Vol] 4.44 10*6/uL 3.90-5.60 [facility] Serum or plasma calcium maicol urement (mass/volume)Ordered By: Mena Nunez on 12-04-2021 Calcium [Mass/Vol] 9.8 mg/dL 8.2-10.2 [facility] Serum or plasma chloride yoli surement (moles/volume)Ordered By: Mena Nunez on 12-04-2021 Chloride [Moles/Vol] 101 mmol/L 95-114 [facility] Serum or plasma glucose maicol urement (mass/volume)Ordered By: Menairwin Nunez on 12-04-2021 Glucose [Mass/Vol] 352 mg/dL 70-100 [facility] Comment on above: ADA recommended refe rence range Random Glucose Reference Range is dependent on time and content of last meal. Glucose of more than 200 mg/dL in a nonstressed, ambulatory subject supports the diagnosis of Diabetes Mellitus. Serum or plasma potassium me asurement (moles/volume)Ordered By: Mena Nunez on 12-04-2021 Potassium [Moles/Vol] 4.6 mmol/L 3.5-5.1 [facility] Serum or plasma sodium measu rement (moles/volume)Ordered By: Mena Nunez on 12-04-2021 Sodium [Moles/Vol] 136 mmol/L 136-146 [facility] Serum or plasma total carbon dioxide measurement (moles/volume)Ordered By: Menairwin Millankaroline on 12-04-2021 CO2 [Moles/Vol] 26.3 mmol/L 22.0-30.[address] [facility] Serum or plasma urea nitroge n measurement (mass/volume)Ordered By: [facility] Montyore on 12-04-2021 Urea nitrogen [Mass/Vol] 23 mg/dL 01-29 [facility] Superficial Wound Cultureon 12-04-2021 Superficial Wound Culture ORGANISM: Staphylococcus aureus (O:STAAUR) Quantity of Growth Heavy Growth Aerobic BRYAN Charge (PC45) --- SUSCEPTIBILITY -- ORGANISM: O:STAAUR ANTIBIOTIC INTERPRETATION BRYAN Amoxacillin/K Clavulanate S <4/2 Ampicillin ZAID >8 Ampicillin/Sulbactam S <8/4 Azithromycin R >4 Cefazolin S <8 Ceftaroline S <0.5 Ceftriaxone S <8 Ciprofloxacin R >2 Clindamycin S <0.5 Daptomycin S <1 Erythromycin R >4 Levofloxacin R >4 Linezolid S 4 Meropenem S <4 Oxacillin S 1 Penicillin ZAID >8 Piperacillin/Tazobacta m S 8 Rifampin S <1 Tetracycline S <4 Trimethoprim/Sulfameth oxazole S <0.5/9.5 Vancomycin S 1 S = SUSCEPTIBLE I = INTERMEDIATE R = RESISTANT BLANK = DATA NOT AVAILABLE, OR DRUG NOT ADVISABLE OR TESTED R* = RESISTANCE DUE TO EXTENDED SPECTRUM BETA-LACTAMASES ESBL = EXTENDED SPECTRUM BETA-LACTAMASE TFG = THYMIDINE-DEPENDENT STRAIN ZAID = BETA-LACTAMASE POSITIVE IB = INDUCIBLE BETA-LACTAMASE. APPEARS IN PLACE OF 'S' WITH SPECIES KNOWN TO POSSESS INDUCIBLE BETA-LACTAMASES. POTENTIALLY THEY MAY BECOME RESISTANT TO ALL B-LACTAM DRUGS. PERFORMED BY: [address] [address] PATHOLOGIST MANAGER TALENT AMBER NAVARRETE M.D. Normal [facility] Comment on above: Performed By: #### C USUP #### [address] [place] [address] [facility] XR Chest 2 Views*on 11-04-19 XR Chest 2 Views* FINDINGS: No acute cardiac or pulmonary disease is identified. No worrisome mass lesions or infiltrates are seen. No pulmonary edema or pneumothorax is present. Cardiac silhouette size is normal. Skeletal structures are normal. IMPRESSION: No acute cardiac or pulmonary disease Report reported and signed by Johan Morris on 11/03/2021 1522 Normal [facility] Hand Violin Maker Consultation Noteon 12-25-19 Consultation Note [id number] 0CD:127 Normal [facility] Consultation Noteon 12-24-19 Consultation Note [id number] 0CD:127 Normal [facility] Vital Signs Date Time Vital Sign Value Performing Clinician Facility 08-01-2024 14:28-0400 Body temperature 97.81 [degF] [facility] Work Phone: [facility] 08-01-2024 14:28-0400 Diastolic blood pressure 68 mm[Hg] [facility] Work Phone: [facility] 08-01-2024 14:28-0400 Heart rate 88 /min [facility] Work Phone: [facility] 08-01-2024 14:28-0400 Respiratory rate 18 /min [facility] Work Phone: [facility] 08-01-2024 14:28-0400 SaO2% (BldA) [Mass fraction] 98 % [facility] Work Phone: [facility] 08-01-2024 14:28-0400 Systolic blood pressure 137 mm[Hg] [facility] Work Phone: [facility] 07-31-2024 11:25-0400 Body temperature 97.7 [degF] [facility] Work Phone: [facility] 07-31-2024 11:25-0400 Diastolic blood pressure 70 mm[Hg] [facility] Work Phone: [facility] 07-31-2024 11:25-0400 Heart rate 86 /min [facility] Work Phone: [facility] 07-31-2024 11:25-0400 Respiratory rate 18 /min [facility] Work Phone: [facility] 07-31-2024 11:25-0400 SaO2% (BldA) [Mass fraction] 98 % [facility] Work Phone: [facility] 07-31-2024 11:25-0400 Systolic blood pressure 139 mm[Hg] [facility] Work Phone: [facility] 07-30-2024 08:31-0400 Body height 179.5 cm Vimal Crandall MD Work Phone: [facility] Comment on above: verified by 2 caregivers 07-30-2024 08:31-0400 Body mass index (BMI) [Ratio] 35.13 kg/m2 Vimal Crandall MD Work Phone: [facility] 07-30-2024 08:31-0400 Body temperature 96.91 [degF] Vimal Crandall MD Work Phone: [facility] 07-30-2024 08:31-0400 Body weight 113.2 kg Vimal Crandall MD Work Phone: [facility] 07-30-2024 08:31-0400 Diastolic blood pressure 77 mm[Hg] Vimal Crandall MD Work Phone: [facility] 07-30-2024 08:31-0400 Heart rate 98 /min Vimal Crandall MD Work Phone: [facility] 07-30-2024 08:31-0400 Respiratory rate 18 /min Vimal Crandall MD Work Phone: [facility] 07-30-2024 08:31-0400 SaO2% (BldA) [Mass fraction] 100 % Vimal Crandall MD Work Phone: [facility] 07-30-2024 08:31-0400 Systolic blood pressure 139 mm[Hg] Vimal Crandall MD Work Phone: [facility] 07-26-2024 15:02-0400 Body height 180.3 cm Blake Ingram INSURANCE SALESMAN.HIM MANAGER Work Phone: [facility] 07-26-2024 15:02-0400 Body mass index (BMI) [Ratio] 35.27 kg/m2 Blake Ingram INSURANCE SALESMAN.HIM MANAGER Work Phone: [facility] 07-26-2024 15:02-0400 Body weight 114.7 kg Blake Ingram INSURANCE SALESMAN.HIM MANAGER Work Phone: [facility] 07-26-2024 15:02-0400 Diastolic blood pressure 68 mm[Hg] Blake Ingram INSURANCE SALESMAN.HIM MANAGER Work Phone: [facility] 07-26-2024 15:02-0400 Heart rate 77 /min Blake Ingram INSURANCE SALESMAN.HIM MANAGER Work Phone: [facility] 07-26-2024 15:02-0400 Systolic blood pressure 122 mm[Hg] Blake Ingram INSURANCE SALESMAN.HIM MANAGER Work Phone: [facility] 07-20-2024 14:45-0400 Body temperature 98.2 [degF] [facility] Work Phone: [facility] 07-20-2024 14:45-0400 Diastolic blood pressure 67 mm[Hg] [facility] Work Phone: [facility] 07-20-2024 14:45-0400 Heart rate 82 /min [facility] Work Phone: [facility] 07-20-2024 14:45-0400 Respiratory rate 18 /min [facility] Work Phone: [facility] 07-20-2024 14:45-0400 SaO2% (BldA) [Mass fraction] 95 % [facility] Work Phone: [facility] 07-20-2024 14:45-0400 Systolic blood pressure 133 mm[Hg] [facility] Work Phone: [facility] 07-19-2024 15:06-0400 Body temperature 98.2 [degF] [facility] Work Phone: [facility] 07-19-2024 15:06-0400 Diastolic blood pressure 66 mm[Hg] [facility] Work Phone: [facility] 07-19-2024 15:06-0400 Heart rate 95 /min [facility] Work Phone: [facility] 07-19-2024 15:06-0400 Respiratory rate 18 /min [facility] Work Phone: [facility] 07-19-2024 15:06-0400 SaO2% (BldA) [Mass fraction] 96 % [facility] Work Phone: [facility] 07-19-2024 15:06-0400 Systolic blood pressure 124 mm[Hg] [facility] Work Phone: [facility] 07-18-2024 14:41-0400 Body temperature 98.1 [degF] [facility] Work Phone: [facility] 07-18-2024 14:41-0400 Diastolic blood pressure 65 mm[Hg] [facility] Work Phone: [facility] 07-18-2024 14:41-0400 Heart rate 80 /min [facility] Work Phone: [facility] 07-18-2024 14:41-0400 Respiratory rate 18 /min [facility] Work Phone: [facility] 07-18-2024 14:41-0400 SaO2% (BldA) [Mass fraction] 97 % [facility] Work Phone: [facility] 07-18-2024 14:41-0400 Systolic blood pressure 113 mm[Hg] [facility] Work Phone: [facility] 07-17-2024 13:18-0400 Body height 180.3 cm Vimal Crandall MD Work Phone: [facility] 07-17-2024 13:18-0400 Body mass index (BMI) [Ratio] 34.76 kg/m2 Vimal Crandall MD Work Phone: [facility] 07-17-2024 13:18-0400 Body temperature 97.9 [degF] Vimal Crandall MD Work Phone: [facility] 07-17-2024 13:18-0400 Body weight 113 kg Vimal Crandall MD Work Phone: [facility] 07-17-2024 13:18-0400 Diastolic blood pressure 65 mm[Hg] Vimal Crandall MD Work Phone: [facility] 07-17-2024 13:18-0400 Heart rate 67 /min Vimal Crandall MD Work Phone: [facility] 07-17-2024 13:18-0400 Respiratory rate 16 /min Vimal Crandall MD Work Phone: [facility] 07-17-2024 13:18-0400 SaO2% (BldA) [Mass fraction] 98 % Vimal Crandall MD Work Phone: [facility] 07-17-2024 13:18-0400 Systolic blood pressure 146 mm[Hg] Vimal Crandall MD Work Phone: [facility] 06-22-2024 12:04-0500 Body temperature 97.3 [degF] [facility] Work Phone: [facility] 06-22-2024 12:04-0500 Diastolic blood pressure 65 mm[Hg] [facility] Work Phone: [facility] 06-22-2024 12:04-0500 Heart rate 77 /min [facility] Work Phone: [facility] 06-22-2024 12:04-0500 Respiratory rate 18 /min [facility] Work Phone: [facility] 06-22-2024 12:04-0500 SaO2% (BldA) [Mass fraction] 96 % [facility] Work Phone: [facility] 06-22-2024 12:04-0500 Systolic blood pressure 129 mm[Hg] [facility] Work Phone: [facility] 06-20-2024 10:44-0500 Body temperature 97.5 [degF] [facility] Work Phone: [facility] 06-20-2024 10:44-0500 Diastolic blood pressure 69 mm[Hg] [facility] Work Phone: [facility] 06-20-2024 10:44-0500 Heart rate 62 /min [facility] Work Phone: [facility] 06-20-2024 10:44-0500 Respiratory rate 18 /min [facility] Work Phone: [facility] 06-20-2024 10:44-0500 SaO2% (BldA) [Mass fraction] 99 % [facility] Work Phone: [facility] 06-20-2024 10:44-0500 Systolic blood pressure 126 mm[Hg] [facility] Work Phone: [facility] 06-19-2024 11:10-0500 Body temperature 97.9 [degF] [facility] Work Phone: [facility] 06-19-2024 11:10-0500 Diastolic blood pressure 64 mm[Hg] [facility] Work Phone: [facility] 06-19-2024 11:10-0500 Heart rate 78 /min [facility] Work Phone: [facility] 06-19-2024 11:10-0500 Respiratory rate 18 /min [facility] Work Phone: [facility] 06-19-2024 11:10-0500 SaO2% (BldA) [Mass fraction] 96 % [facility] Work Phone: [facility] 06-19-2024 11:10-0500 Systolic blood pressure 126 mm[Hg] [facility] Work Phone: [facility] 06-18-2024 13:09-0500 Body height 180.3 cm Vimal Crandall MD Work Phone: [facility] 06-18-2024 13:09-0500 Body mass index (BMI) [Ratio] 34.88 kg/m2 Vimal Crandall MD Work Phone: [facility] 06-18-2024 13:09-0500 Body temperature 97.59 [degF] Vimal Crandall MD Work Phone: [facility] 06-18-2024 13:09-0500 Body weight 113.4 kg Vimal Crandall MD Work Phone: [facility] 06-18-2024 13:09-0500 Diastolic blood pressure 67 mm[Hg] Vimal Crandall MD Work Phone: [facility] 06-18-2024 13:09-0500 Heart rate 86 /min Vimal Crandall MD Work Phone: [facility] 06-18-2024 13:09-0500 Respiratory rate 16 /min Vimal Crandall MD Work Phone: [facility] 06-18-2024 13:09-0500 SaO2% (BldA) [Mass fraction] 96 % Vimal Crandall MD Work Phone: [facility] 06-18-2024 13:09-0500 Systolic blood pressure 135 mm[Hg] Vimal Crandall MD Work Phone: [facility] 06-15-2024 11:23-0500 Body height 180.3 cm Osvaldo Moreira MD Work Phone: [facility] 06-15-2024 11:23-0500 Body mass index (BMI) [Ratio] 35.47 kg/m2 Osvaldo Moreira MD Work Phone: [facility] 06-15-2024 11:23-0500 Body temperature 97.3 [degF] Osvaldo Moreira MD Work Phone: [facility] 06-15-2024 11:23-0500 Body weight 115.3 kg Osvaldo Moreira MD Work Phone: [facility] Comment on above: with shoes 06-15-2024 11:23-0500 Diastolic blood pressure 58 mm[Hg] Osvaldo Moreira MD Work Phone: [facility] 06-15-2024 11:23-0500 Heart rate 71 /min Osvaldo Moreira MD Work Phone: [facility] 06-15-2024 11:23-0500 Respiratory rate 18 /min Osvaldo Moreira MD Work Phone: [facility] 06-15-2024 11:23-0500 SaO2% (BldA) [Mass fraction] 98 % Osvaldo Moreira MD Work Phone: [facility] Comment on above: RA 06-15-2024 11:23-0500 Systolic blood pressure 147 mm[Hg] Osvaldo Moreira MD Work Phone: [facility] 06-13-2024 11:00-0500 Body temperature 97.5 [degF] [facility] Work Phone: [facility] 06-13-2024 11:00-0500 Diastolic blood pressure 62 mm[Hg] [facility] Work Phone: [facility] 06-13-2024 11:00-0500 Heart rate 70 /min [facility] Work Phone: [facility] 06-13-2024 11:00-0500 Respiratory rate 18 /min [facility] Work Phone: [facility] 06-13-2024 11:00-0500 SaO2% (BldA) [Mass fraction] 97 % [facility] Work Phone: [facility] 06-13-2024 11:00-0500 Systolic blood pressure 126 mm[Hg] [facility] Work Phone: [facility] 06-12-2024 14:45-0500 Diastolic blood pressure 65 mm[Hg] [facility] Work Phone: [facility] 06-12-2024 14:45-0500 Heart rate 71 /min [facility] Work Phone: [facility] 06-12-2024 14:45-0500 Respiratory rate 18 /min [facility] Work Phone: [facility] 06-12-2024 14:45-0500 SaO2% (BldA) [Mass fraction] 98 % [facility] Work Phone: [facility] 06-12-2024 14:45-0500 Systolic blood pressure 123 mm[Hg] [facility] Work Phone: [facility] 06-11-2024 10:29-0500 Body height 180.3 cm Soha Nunn APRN.HIM MANAGER Work Phone: [facility] 06-11-2024 10:29-0500 Body mass index (BMI) [Ratio] 35.13 kg/m2 Soha Nunn APRN.HIM MANAGER Work Phone: [facility] 06-11-2024 10:29-0500 Body temperature 97.39 [degF] Soha Nunn APRN.HIM MANAGER Work Phone: [facility] 06-11-2024 10:29-0500 Body weight 114.2 kg Soha Nunn INSURANCE SALESMAN.HIM MANAGER Work Phone: [facility] 06-11-2024 10:29-0500 Diastolic blood pressure 73 mm[Hg] Soha Nunn INSURANCE SALESMAN.HIM MANAGER Work Phone: [facility] 06-11-2024 10:29-0500 Heart rate 82 /min Soha Nunn INSURANCE SALESMAN.HIM MANAGER Work Phone: [facility] 06-11-2024 10:29-0500 Respiratory rate 16 /min Soha Nunn INSURANCE SALESMAN.HIM MANAGER Work Phone: [facility] 06-11-2024 10:29-0500 SaO2% (BldA) [Mass fraction] 97 % Soha Nunn INSURANCE SALESMAN.HIM MANAGER Work Phone: [facility] 06-11-2024 10:29-0500 Systolic blood pressure 128 mm[Hg] Soha Nunn INSURANCE SALESMAN.HIM MANAGER Work Phone: [facility] 06-07-2024 10:40-0500 Body height 181.6 cm Miguel Angel Lora MD Work Phone: [facility] 06-07-2024 10:40-0500 Body mass index (BMI) [Ratio] 35.48 kg/m2 Miguel Angel Lora MD Work Phone: [facility] 06-07-2024 10:40-0500 Body weight 117.03 kg Miguel Angel Lora MD Work Phone: [facility] 06-07-2024 10:40-0500 Diastolic blood pressure 62 mm[Hg] Miguel Angel Lora MD Work Phone: [facility] 06-07-2024 10:40-0500 Heart rate 67 /min Miguel Angel Lora MD Work Phone: [facility] 06-07-2024 10:40-0500 SaO2% (BldA) [Mass fraction] 97 % Miguel Angel Lora MD Work Phone: [facility] 06-07-2024 10:40-0500 Systolic blood pressure 130 mm[Hg] Miguel Angel Lora MD Work Phone: [facility] 06-07-2024 10:04-0500 Body temperature 98.01 [degF] [facility] Work Phone: [facility] 06-07-2024 10:04-0500 Diastolic blood pressure 62 mm[Hg] [facility] Work Phone: [facility] 06-07-2024 10:04-0500 Heart rate 63 /min [facility] Work Phone: [facility] 06-07-2024 10:04-0500 Respiratory rate 18 /min [facility] Work Phone: [facility] 06-07-2024 10:04-0500 SaO2% (BldA) [Mass fraction] 96 % [facility] Work Phone: [facility] 06-07-2024 10:04-0500 Systolic blood pressure 122 mm[Hg] [facility] Work Phone: [facility] 06-05-2024 10:10-0500 Body temperature 98.2 [degF] [facility] Work Phone: [facility] 06-05-2024 10:10-0500 Diastolic blood pressure 69 mm[Hg] [facility] Work Phone: [facility] 06-05-2024 10:10-0500 Heart rate 83 /min [facility] Work Phone: [facility] 06-05-2024 10:10-0500 Respiratory rate 18 /min [facility] Work Phone: [facility] 06-05-2024 10:10-0500 SaO2% (BldA) [Mass fraction] 97 % [facility] Work Phone: [facility] 06-05-2024 10:10-0500 Systolic blood pressure 124 mm[Hg] [facility] Work Phone: [facility] 06-04-2024 11:35-0500 Body mass index (BMI) [Ratio] 35.53 kg/m2 Soha Nunn INSURANCE SALESMAN.HIM MANAGER Work Phone: [facility] 06-04-2024 11:35-0500 Body temperature 97.81 [degF] Soha Nunn INSURANCE SALESMAN.HIM MANAGER Work Phone: [facility] 06-04-2024 11:35-0500 Body weight 115.5 kg Soha Nunn INSURANCE SALESMAN.HIM MANAGER Work Phone: [facility] 06-04-2024 11:35-0500 Diastolic blood pressure 69 mm[Hg] Soha Nunn INSURANCE SALESMAN.HIM MANAGER Work Phone: [facility] 06-04-2024 11:35-0500 Heart rate 81 /min Soha Nunn INSURANCE SALESMAN.HIM MANAGER Work Phone: [facility] 06-04-2024 11:35-0500 Respiratory rate 18 /min Soha Nunn INSURANCE SALESMAN.HIM MANAGER Work Phone: [facility] 06-04-2024 11:35-0500 SaO2% (BldA) [Mass fraction] 96 % Soha Nunn INSURANCE SALESMAN.HIM MANAGER Work Phone: [facility] 06-04-2024 11:35-0500 Systolic blood pressure 124 mm[Hg] Soha Nunn INSURANCE SALESMAN.HIM MANAGER Work Phone: [facility] 05-24-2024 14:33-0500 Body height 180.3 cm Letha Best MD Work Phone: [facility] 05-24-2024 14:33-0500 Body mass index (BMI) [Ratio] 35.15 kg/m2 Letha Best MD Work Phone: [facility] 05-24-2024 14:33-0500 Body weight 114.31 kg Letha Best MD Work Phone: [facility] 05-24-2024 14:33-0500 Diastolic blood pressure 80 mm[Hg] Letha Best MD Work Phone: [facility] 05-24-2024 14:33-0500 Heart rate 86 /min Letha Best MD Work Phone: [facility] 05-24-2024 14:33-0500 Respiratory rate 18 /min Letha Best MD Work Phone: [facility] 05-24-2024 14:33-0500 SaO2% (BldA) [Mass fraction] 98 % Letha Best MD Work Phone: [facility] 05-24-2024 14:33-0500 Systolic blood pressure 126 mm[Hg] Letha Best MD Work Phone: [facility] 05-24-2024 10:29-0500 Body mass index (BMI) [Ratio] 34.98 kg/m2 Vimal Crandall MD Work Phone: [facility] 05-24-2024 10:29-0500 Body temperature 97.11 [degF] Vimal Crandall MD Work Phone: [facility] 05-24-2024 10:29-0500 Body weight 113.7 kg Vimal Crandall MD Work Phone: [facility] 05-24-2024 10:29-0500 Diastolic blood pressure 59 mm[Hg] Vimal Crandall MD Work Phone: [facility] 05-24-2024 10:29-0500 Heart rate 73 /min Vimal Crandall MD Work Phone: [facility] 05-24-2024 10:29-0500 Respiratory rate 16 /min Vimal Crandall MD Work Phone: [facility] 05-24-2024 10:29-0500 SaO2% (BldA) [Mass fraction] 97 % Vimal Crandall MD Work Phone: [facility] 05-24-2024 10:29-0500 Systolic blood pressure 121 mm[Hg] Vimal Crandall MD Work Phone: [facility] 05-21-2024 11:42-0500 Body temperature 97.9 [degF] [facility] [place] Work Phone: [facility] 05-21-2024 11:42-0500 Diastolic blood pressure 72 mm[Hg] [facility] [place] Work Phone: [facility] 05-21-2024 11:42-0500 Heart rate 61 /min [facility] [place] Work Phone: [facility] 05-21-2024 11:42-0500 Respiratory rate 18 /min [facility] [place] Work Phone: [facility] 05-21-2024 11:42-0500 SaO2% (BldA) [Mass fraction] 97 % [facility] [place] Work Phone: [facility] 05-21-2024 11:42-0500 Systolic blood pressure 162 mm[Hg] [facility] [place] Work Phone: [facility] 05-17-2024 12:20-0500 Body temperature 97.7 [degF] [facility] [place] Work Phone: [facility] 05-17-2024 12:20-0500 Diastolic blood pressure 67 mm[Hg] [facility] [place] Work Phone: [facility] 05-17-2024 12:20-0500 Heart rate 72 /min [facility] Work Phone: [facility] 05-17-2024 12:20-0500 Respiratory rate 18 /min [facility] [place] Work Phone: [facility] 05-17-2024 12:20-0500 SaO2% (BldA) [Mass fraction] 97 % [facility] [place] Work Phone: [facility] 05-17-2024 12:20-0500 Systolic blood pressure 112 mm[Hg] [facility] [place] Work Phone: [facility] 05-07-2024 11:37-0500 Body temperature 97.81 [degF] [facility] [place] Work Phone: [facility] 05-07-2024 11:37-0500 Diastolic blood pressure 68 mm[Hg] [facility] [place] Work Phone: [facility] 05-07-2024 11:37-0500 Heart rate 67 /min [facility] [place] Work Phone: [facility] 05-07-2024 11:37-0500 Respiratory rate 18 /min [facility] Work Phone: [facility] 05-07-2024 11:37-0500 SaO2% (BldA) [Mass fraction] 96 % [facility] [place] Work Phone: [facility] 05-07-2024 11:37-0500 Systolic blood pressure 124 mm[Hg] [facility] [place] Work Phone: [facility] 05-03-2024 11:58-0500 Body temperature 98.1 [degF] [facility] [place] Work Phone: [facility] 05-03-2024 11:58-0500 Diastolic blood pressure 66 mm[Hg] [facility] [place] Work Phone: [facility] 05-03-2024 11:58-0500 Heart rate 76 /min [facility] [place] Work Phone: [facility] 05-03-2024 11:58-0500 Respiratory rate 18 /min [facility] [place] Work Phone: [facility] 05-03-2024 11:58-0500 SaO2% (BldA) [Mass fraction] 97 % [facility] [place] Work Phone: [facility] 05-03-2024 11:58-0500 Systolic blood pressure 122 mm[Hg] [facility] [place] Work Phone: [facility] 04-26-2024 10:54-0500 Body height 180.3 cm Letha Best MD Work Phone: [facility] 04-26-2024 10:54-0500 Body mass index (BMI) [Ratio] 34.28 kg/m2 Letha Best MD Work Phone: [facility] 04-26-2024 10:54-0500 Body weight 111.49 kg Letha Best MD Work Phone: [facility] 04-26-2024 10:54-0500 Diastolic blood pressure 64 mm[Hg] Letha Best MD Work Phone: [facility] 04-26-2024 10:54-0500 Heart rate 94 /min Letha Best MD Work Phone: [facility] 04-26-2024 10:54-0500 SaO2% (BldA) [Mass fraction] 97 % Letha Best MD Work Phone: [facility] 04-26-2024 10:54-0500 Systolic blood pressure 112 mm[Hg] Letha Best MD Work Phone: [facility] 04-25-2024 13:28-0500 Body height 180.3 cm Vimal Crandall MD Work Phone: [facility] 04-25-2024 13:28-0500 Body mass index (BMI) [Ratio] 34.39 kg/m2 Vimal Crandall MD Work Phone: [facility] 04-25-2024 13:28-0500 Body temperature 97.81 [degF] Vimal Crandall MD Work Phone: [facility] 04-25-2024 13:28-0500 Body weight 111.8 kg Vimal Crandall MD Work Phone: [facility] 04-25-2024 13:28-0500 Diastolic blood pressure 70 mm[Hg] Vimal Crandall MD Work Phone: [facility] 04-25-2024 13:28-0500 Heart rate 90 /min Vimal Crandall MD Work Phone: [facility] 04-25-2024 13:28-0500 Respiratory rate 16 /min Vimal Crandall MD Work Phone: [facility] 04-25-2024 13:28-0500 SaO2% (BldA) [Mass fraction] 99 % Vimal Crandall MD Work Phone: [facility] 04-25-2024 13:28-0500 Systolic blood pressure 119 mm[Hg] Vimal Crandall MD Work Phone: [facility] 04-16-2024 09:41-0500 Body height 180.3 cm Vimal Crandall MD Work Phone: [facility] 04-16-2024 09:41-0500 Body mass index (BMI) [Ratio] 35.68 kg/m2 Vimal Crandall MD Work Phone: [facility] 04-16-2024 09:41-0500 Body temperature 97.81 [degF] Vimal Crandall MD Work Phone: [facility] 04-16-2024 09:41-0500 Body weight 116 kg Vimal Crandall MD Work Phone: [facility] 04-16-2024 09:41-0500 Diastolic blood pressure 72 mm[Hg] Vimal Crandall MD Work Phone: [facility] 04-16-2024 09:41-0500 Heart rate 81 /min Vmial Crandall MD Work Phone: [facility] 04-16-2024 09:41-0500 Respiratory rate 18 /min Vimal Crandall MD Work Phone: [facility] 04-16-2024 09:41-0500 SaO2% (BldA) [Mass fraction] 96 % Vimal Crandall MD Work Phone: [facility] 04-16-2024 09:41-0500 Systolic blood pressure 135 mm[Hg] Vimal Crandall MD Work Phone: [facility] 04-09-2024 10:46-0500 Body mass index (BMI) [Ratio] 35.08 kg/m2 Lorena Rishi PA-C Work Phone: [facility] 04-09-2024 10:46-0500 Body temperature 97 [degF] Lorena Rishi PA-C Work Phone: [facility] 04-09-2024 10:46-0500 Body weight 114.1 kg Lorena Rishi PA-C Work Phone: [facility] 04-09-2024 10:46-0500 Diastolic blood pressure 74 mm[Hg] Lorena Rishi PA-C Work Phone: [facility] 04-09-2024 10:46-0500 Heart rate 82 /min Lroena Rishi PA-C Work Phone: [facility] 04-09-2024 10:46-0500 Respiratory rate 18 /min Lorena Rishi PA-C Work Phone: [facility] 04-09-2024 10:46-0500 SaO2% (BldA) [Mass fraction] 97 % Lorena Rishi PA-C Work Phone: [facility] 04-09-2024 10:46-0500 Systolic blood pressure 133 mm[Hg] Lorena Rishi PA-C Work Phone: [facility] 04-02-2024 10:27-0500 Body mass index (BMI) [Ratio] 35.01 kg/m2 Soha Nunn APRN.CNP Work Phone: [facility] 04-02-2024 10:27-0500 Body temperature 97.5 [degF] Soha Nunn APRN.HIM MANAGER Work Phone: [facility] 04-02-2024 10:27-0500 Body weight 113.8 kg Soha Nunn APRN.HIM MANAGER Work Phone: [facility] 04-02-2024 10:27-0500 Diastolic blood pressure 69 mm[Hg] Soha Nunn APRN.HIM MANAGER Work Phone: [facility] 04-02-2024 10:27-0500 Heart rate 89 /min Soha Nunn APRN.HIM MANAGER Work Phone: [facility] 04-02-2024 10:27-0500 Respiratory rate 18 /min Soha Nunn APRN.HIM MANAGER Work Phone: [facility] 04-02-2024 10:27-0500 SaO2% (BldA) [Mass fraction] 97 % Soha Nunn APRN.HIM MANAGER Work Phone: [facility] 04-02-2024 10:27-0500 Systolic blood pressure 112 mm[Hg] Soha Nunn APRN.HIM MANAGER Work Phone: [facility] 03-29-2024 11:20-0500 Body temperature 98.1 [degF] [facility] Work Phone: [facility] 03-29-2024 11:20-0500 Diastolic blood pressure 73 mm[Hg] [facility] [place] Work Phone: [facility] 03-29-2024 11:20-0500 Heart rate 102 /min [facility] [place] Work Phone: [facility] 03-29-2024 11:20-0500 Respiratory rate 18 /min [facility] Work Phone: [facility] 03-29-2024 11:20-0500 SaO2% (BldA) [Mass fraction] 95 % [facility] [place] Work Phone: [facility] 03-29-2024 11:20-0500 Systolic blood pressure 129 mm[Hg] [facility] [place] Work Phone: [facility] 03-28-2024 11:05-0500 Body temperature 97.9 [degF] [facility] [place] Work Phone: [facility] 03-28-2024 11:05-0500 Diastolic blood pressure 58 mm[Hg] [facility] [place] Work Phone: [facility] 03-28-2024 11:05-0500 Heart rate 69 /min [facility] Work Phone: [facility] 03-28-2024 11:05-0500 Respiratory rate 18 /min [facility] Work Phone: [facility] 03-28-2024 11:05-0500 SaO2% (BldA) [Mass fraction] 96 % [facility] [place] Work Phone: [facility] 03-28-2024 11:05-0500 Systolic blood pressure 131 mm[Hg] [facility] [place] Work Phone: [facility] 03-27-2024 15:05-0500 Body temperature 97.59 [degF] [facility] Work Phone: [facility] 03-27-2024 15:05-0500 Diastolic blood pressure 65 mm[Hg] [facility] Work Phone: [facility] 03-27-2024 15:05-0500 Heart rate 77 /min [facility] Work Phone: [facility] 03-27-2024 15:05-0500 Respiratory rate 18 /min [facility] Work Phone: [facility] 03-27-2024 15:05-0500 SaO2% (BldA) [Mass fraction] 100 % [facility] Work Phone: [facility] 03-27-2024 15:05-0500 Systolic blood pressure 130 mm[Hg] [facility] [place] Work Phone: [facility] 03-26-2024 11:45-0500 Body height 180.3 cm Soha Nunn APRN.HIM MANAGER Work Phone: [facility] 03-26-2024 11:45-0500 Body mass index (BMI) [Ratio] 35.47 kg/m2 Soha Nunn APRN.HIM MANAGER Work Phone: [facility] 03-26-2024 11:45-0500 Body temperature 97.11 [degF] Soha Nunn APRN.HIM MANAGER Work Phone: [facility] 03-26-2024 11:45-0500 Body weight 115.3 kg Soha Nunn APRN.HIM MANAGER Work Phone: [facility] 03-26-2024 11:45-0500 Diastolic blood pressure 65 mm[Hg] Soha Nunn APRN.HIM MANAGER Work Phone: [facility] 03-26-2024 11:45-0500 Heart rate 81 /min Soha Nunn APRN.HIM MANAGER Work Phone: [facility] 03-26-2024 11:45-0500 Respiratory rate 18 /min Soha Nunn APRN.HIM MANAGER Work Phone: [facility] 03-26-2024 11:45-0500 SaO2% (BldA) [Mass fraction] 97 % Soha Nunn APRN.HIM MANAGER Work Phone: [facility] 03-26-2024 11:45-0500 Systolic blood pressure 112 mm[Hg] Soha Nunn APRN.HIM MANAGER Work Phone: [facility] 03-19-2024 13:34-0500 Body height 180.3 cm Lorena ZUNIGA-Curtis Work Phone: [facility] 03-19-2024 13:34-0500 Body mass index (BMI) [Ratio] 35.44 kg/m2 Lorena ZUNIGA-C Work Phone: [facility] 03-19-2024 13:34-0500 Body temperature 97.2 [degF] Lorena Rishi PA-C Work Phone: [facility] 03-19-2024 13:34-0500 Body weight 115.2 kg Lorena Rishi PA-C Work Phone: [facility] 03-19-2024 13:34-0500 Diastolic blood pressure 72 mm[Hg] Lorena Rishi PA-C Work Phone: [facility] 03-19-2024 13:34-0500 Heart rate 99 /min Lorena Rishi PA-C Work Phone: [facility] 03-19-2024 13:34-0500 Respiratory rate 16 /min Lorena Rishi PA-C Work Phone: [facility] 03-19-2024 13:34-0500 SaO2% (BldA) [Mass fraction] 97 % Lorena Rishi PA-C Work Phone: [facility] 03-19-2024 13:34-0500 Systolic blood pressure 130 mm[Hg] Lorena Rishi PA-C Work Phone: [facility] 03-15-2024 13:50-0500 Body temperature 98.71 [degF] [facility] [place] Work Phone: [facility] 03-15-2024 13:50-0500 Diastolic blood pressure 54 mm[Hg] [facility] [place] Work Phone: [facility] 03-15-2024 13:50-0500 Heart rate 99 /min [facility] Work Phone: [facility] 03-15-2024 13:50-0500 Respiratory rate 18 /min [facility] Work Phone: [facility] 03-15-2024 13:50-0500 SaO2% (BldA) [Mass fraction] 92 % [facility] Work Phone: [facility] 03-15-2024 13:50-0500 Systolic blood pressure 126 mm[Hg] [facility] [place] Work Phone: [facility] 03-14-2024 13:50-0500 Body temperature 98.01 [degF] [facility] Work Phone: [facility] 03-14-2024 13:50-0500 Diastolic blood pressure 65 mm[Hg] [facility] Work Phone: [facility] 03-14-2024 13:50-0500 Heart rate 88 /min [facility] Work Phone: [facility] 03-14-2024 13:50-0500 Respiratory rate 18 /min [facility] Work Phone: [facility] 03-14-2024 13:50-0500 SaO2% (BldA) [Mass fraction] 94 % [facility] [place] Work Phone: [facility] 03-14-2024 13:50-0500 Systolic blood pressure 122 mm[Hg] [facility] [place] Work Phone: [facility] 03-13-2024 13:15-0500 Body temperature 98.4 [degF] [facility] [place] Work Phone: [facility] 03-13-2024 13:15-0500 Diastolic blood pressure 68 mm[Hg] [facility] Work Phone: [facility] 03-13-2024 13:15-0500 Heart rate 89 /min [facility] [place] Work Phone: [facility] 03-13-2024 13:15-0500 Respiratory rate 18 /min [facility] [place] Work Phone: [facility] 03-13-2024 13:15-0500 SaO2% (BldA) [Mass fraction] 96 % [facility] Work Phone: [facility] 03-13-2024 13:15-0500 Systolic blood pressure 119 mm[Hg] [facility] [place] Work Phone: [facility] 03-12-2024 14:59-0500 Body height 180.3 cm Vimal Crandall MD Work Phone: [facility] 03-12-2024 14:59-0500 Body mass index (BMI) [Ratio] 36.67 kg/m2 Vimal Crandall MD Work Phone: [facility] 03-12-2024 14:59-0500 Body temperature 97.11 [degF] Vimal Crandall MD Work Phone: [facility] 03-12-2024 14:59-0500 Body weight 119.2 kg Vimal Crandall MD Work Phone: [facility] 03-12-2024 14:59-0500 Diastolic blood pressure 70 mm[Hg] Vimal Crandall MD Work Phone: [facility] 03-12-2024 14:59-0500 Heart rate 53 /min Vimal Crandall MD Work Phone: [facility] 03-12-2024 14:59-0500 Respiratory rate 18 /min Vimal Crandall MD Work Phone: [facility] 03-12-2024 14:59-0500 SaO2% (BldA) [Mass fraction] 97 % Vimal Crandall MD Work Phone: [facility] 03-12-2024 14:59-0500 Systolic blood pressure 147 mm[Hg] Vimal Crandall MD Work Phone: [facility] 02-20-2024 14:50-0400 Body height 180.3 cm Vimal Crandall MD Work Phone: [facility] 02-20-2024 14:50-0400 Body mass index (BMI) [Ratio] 36.54 kg/m2 Vimal Crandall MD Work Phone: [facility] 02-20-2024 14:50-0400 Body temperature 97 [degF] Vimal Crandall MD Work Phone: [facility] 02-20-2024 14:50-0400 Body weight 118.8 kg Vimal Crandall MD Work Phone: [facility] 02-20-2024 14:50-0400 Diastolic blood pressure 80 mm[Hg] Vimal Crandall MD Work Phone: [facility] 02-20-2024 14:50-0400 Heart rate 55 /min Vimal Crandall MD Work Phone: [facility] 02-20-2024 14:50-0400 Respiratory rate 18 /min Vimal Crandall MD Work Phone: [facility] 02-20-2024 14:50-0400 SaO2% (BldA) [Mass fraction] 98 % Vimal Crandall MD Work Phone: [facility] 02-20-2024 14:50-0400 Systolic blood pressure 152 mm[Hg] Vimal Crandall MD Work Phone: [facility] 02-03-2024 09:35-0400 Body mass index (BMI) [Ratio] 35.93 kg/m2 Vimal Crandall MD Work Phone: [facility] 02-03-2024 09:35-0400 Body temperature 97.5 [degF] Vimal Crandall MD Work Phone: [facility] 02-03-2024 09:35-0400 Body weight 116.8 kg Vimal Crandall MD Work Phone: [facility] 02-03-2024 09:35-0400 Diastolic blood pressure 77 mm[Hg] Vimal Crandall MD Work Phone: [facility] 02-03-2024 09:35-0400 Heart rate 62 /min Vimal Crandall MD Work Phone: [facility] 02-03-2024 09:35-0400 Respiratory rate 18 /min Vimal Crandall MD Work Phone: [facility] 02-03-2024 09:35-0400 SaO2% (BldA) [Mass fraction] 97 % Vimal Crandall MD Work Phone: [facility] 02-03-2024 09:35-0400 Systolic blood pressure 177 mm[Hg] Vimal Crandall MD Work Phone: [facility] 02-02-2024 10:40-0400 Body height 180.3 cm Miguel Angel Lora MD Work Phone: [facility] 02-02-2024 10:40-0400 Body mass index (BMI) [Ratio] 35.98 kg/m2 Miguel Angel Lora MD Work Phone: [facility] 02-02-2024 10:40-0400 Body weight 117.03 kg Miguel Angel Lora MD Work Phone: [facility] 02-02-2024 10:40-0400 Heart rate 54 /min Miguel Angel Lora MD Work Phone: [facility] 02-02-2024 10:40-0400 Respiratory rate 18 /min Miguel Angel Lora MD Work Phone: [facility] Comment on above: O2 SAT 98% 01-24-2024 15:44-0400 Body height 181.6 cm Letha Best MD Work Phone: [facility] 01-24-2024 15:44-0400 Body mass index (BMI) [Ratio] 36 kg/m2 Letha Best MD Work Phone: [facility] 01-24-2024 15:44-0400 Body weight 118.75 kg Letha Best MD Work Phone: [facility] 01-24-2024 15:44-0400 Diastolic blood pressure 78 mm[Hg] Letha Best MD Work Phone: [facility] 01-24-2024 15:44-0400 Heart rate 69 /min Letha Best MD Work Phone: [facility] 01-24-2024 15:44-0400 SaO2% (BldA) [Mass fraction] 96 % Letha Best MD Work Phone: [facility] 01-24-2024 15:44-0400 Systolic blood pressure 122 mm[Hg] Letha Best MD Work Phone: [facility] 01-24-2024 12:59-0400 Body height 181.6 cm Orlin Lorenzana DO Work Phone: [facility] 01-24-2024 12:59-0400 Body mass index (BMI) [Ratio] 35.76 kg/m2 Orlin Lorenzana DO Work Phone: [facility] 01-24-2024 12:59-0400 Body weight 117.94 kg Orlin Lorenzana DO Work Phone: [facility] 01-20-2024 13:49-0400 Body mass index (BMI) [Ratio] 36.58 kg/m2 Vimal Crandall MD Work Phone: [facility] 01-20-2024 13:49-0400 Body temperature 97.3 [degF] Vimal Crandall MD Work Phone: [facility] 01-20-2024 13:49-0400 Body weight 118.9 kg Vimal Crandall MD Work Phone: [facility] 01-20-2024 13:49-0400 Diastolic blood pressure 82 mm[Hg] Vimal Crandall MD Work Phone: [facility] 01-20-2024 13:49-0400 Heart rate 58 /min Vimal Crandall MD Work Phone: [facility] 01-20-2024 13:49-0400 Respiratory rate 18 /min Vimal Crandall MD Work Phone: [facility] 01-20-2024 13:49-0400 SaO2% (BldA) [Mass fraction] 98 % Vimal Crandall MD Work Phone: [facility] 01-20-2024 13:49-0400 Systolic blood pressure 184 mm[Hg] Vimal Crandall MD Work Phone: [facility] 01-12-2024 14:25-0400 Body temperature 97.9 [degF] [place] Work Phone: [facility] 01-12-2024 14:25-0400 Diastolic blood pressure 70 mm[Hg] [facility] [place] Work Phone: [facility] 01-12-2024 14:25-0400 Heart rate 62 /min [facility] [place] Work Phone: [facility] 01-12-2024 14:25-0400 Respiratory rate 16 /min [facility] [place] Work Phone: [facility] 01-12-2024 14:25-0400 SaO2% (BldA) [Mass fraction] 97 % [facility] [place] Work Phone: [facility] 01-12-2024 14:25-0400 Systolic blood pressure 149 mm[Hg] Chair [place] Work Phone: [facility] 01-10-2024 14:10-0400 Diastolic blood pressure 71 mm[Hg] [facility] [place] Work Phone: [facility] 01-10-2024 14:10-0400 Heart rate 66 /min Chair [place] Work Phone: [facility] 01-10-2024 14:10-0400 Respiratory rate 18 /min Chair [place] Work Phone: [facility] 01-10-2024 14:10-0400 SaO2% (BldA) [Mass fraction] 96 % [facility] [place] Work Phone: [facility] 01-10-2024 14:10-0400 Systolic blood pressure 143 mm[Hg] [facility] [place] Work Phone: [facility] 01-05-2024 14:09-0400 Body temperature 97.81 [degF] [facility] [place] Work Phone: [facility] 01-05-2024 14:09-0400 Diastolic blood pressure 75 mm[Hg] Chair [place] Work Phone: [facility] 01-05-2024 14:09-0400 Heart rate 80 /min Chair [place] Work Phone: [facility] 01-05-2024 14:09-0400 Respiratory rate 16 /min [facility] [place] Work Phone: [facility] 01-05-2024 14:09-0400 SaO2% (BldA) [Mass fraction] 97 % Chair [place] Work Phone: [facility] 01-05-2024 14:09-0400 Systolic blood pressure 146 mm[Hg] Chair [place] Work Phone: [facility] 01-03-2024 13:26-0400 Body temperature 97.7 [degF] Chair [place] Work Phone: [facility] 01-03-2024 13:26-0400 Diastolic blood pressure 72 mm[Hg] Chair [place] Work Phone: [facility] 01-03-2024 13:26-0400 Heart rate 64 /min [facility] [place] Work Phone: [facility] 01-03-2024 13:26-0400 Respiratory rate 16 /min [facility] [place] Work Phone: [facility] 01-03-2024 13:26-0400 SaO2% (BldA) [Mass fraction] 96 % [facility] [place] Work Phone: [facility] 01-03-2024 13:26-0400 Systolic blood pressure 125 mm[Hg] [facility] [place] Work Phone: [facility] 12-09-2023 11:22-0400 Body mass index (BMI) [Ratio] 36.39 kg/m2 Vimal Crandall MD Work Phone: [facility] 12-09-2023 11:22-0400 Body temperature 97.5 [degF] Vimal Crandall MD Work Phone: [facility] 12-09-2023 11:22-0400 Body weight 118.3 kg Vimal Crandall MD Work Phone: [facility] 12-09-2023 11:22-0400 Diastolic blood pressure 77 mm[Hg] Vimal Crandall MD Work Phone: [facility] 12-09-2023 11:22-0400 Heart rate 60 /min Vimal Crandall MD Work Phone: [facility] 12-09-2023 11:22-0400 Respiratory rate 18 /min Vimal Crandall MD Work Phone: [facility] 12-09-2023 11:22-0400 SaO2% (BldA) [Mass fraction] 98 % Vimal Crandall MD Work Phone: [facility] 12-09-2023 11:22-0400 Systolic blood pressure 130 mm[Hg] Vimal Crandall MD Work Phone: [facility] 10-14-2023 08:43-0400 Body mass index (BMI) [Ratio] 36.05 kg/m2 Vimal Crandall MD Work Phone: [facility] [facility] 10-14-2023 08:43-0400 Body temperature 97.11 [degF] Vimal Crandall MD Work Phone: [facility] 10-14-2023 08:43-0400 Body weight 117.2 kg Vimal Crandall MD Work Phone: [facility] 10-14-2023 08:43-0400 Diastolic blood pressure 76 mm[Hg] Vimal Crandall MD Work Phone: [facility] 10-14-2023 08:43-0400 Heart rate 82 /min Vimal Crandall MD Work Phone: [facility] 10-14-2023 08:43-0400 Respiratory rate 18 /min Vimal Crandall MD Work Phone: [facility] 10-14-2023 08:43-0400 SaO2% (BldA) [Mass fraction] 96 % Vimal Crandall MD Work Phone: [facility] 10-14-2023 08:43-0400 Systolic blood pressure 159 mm[Hg] Vimal Crandall MD Work Phone: [facility] 09-15-2023 14:43-0400 Body mass index (BMI) [Ratio] 36.91 kg/m2 Vimal Crandall MD Work Phone: [facility] 09-15-2023 14:43-0400 Body temperature 97.3 [degF] Vimal Crandall MD Work Phone: [facility] 09-15-2023 14:43-0400 Body weight 120 kg Vimal Crandall MD Work Phone: [facility] 09-15-2023 14:43-0400 Diastolic blood pressure 89 mm[Hg] Vimal Crandall MD Work Phone: [facility] 09-15-2023 14:43-0400 Heart rate 56 /min Vimal Crandall MD Work Phone: [facility] 09-15-2023 14:43-0400 Respiratory rate 16 /min Vimal Crandall MD Work Phone: [facility] 09-15-2023 14:43-0400 SaO2% (BldA) [Mass fraction] 99 % Vimal Crandall MD Work Phone: [facility] 09-15-2023 14:43-0400 Systolic blood pressure 156 mm[Hg] Vimal Crandall MD Work Phone: [facility] 08-18-2023 14:27-0400 Body height 180.3 cm Vimal Crandall MD Work Phone: [facility] 08-18-2023 14:27-0400 Body temperature 97.3 [degF] Vimal Crandall MD Work Phone: [facility] 08-18-2023 14:27-0400 Body weight 117.6 kg Vimal Crandall MD Work Phone: [facility] 08-18-2023 14:27-0400 Diastolic blood pressure 78 mm[Hg] Vimal Crandall MD Work Phone: [facility] 08-18-2023 14:27-0400 Heart rate 81 /min Vimal Crandall MD Work Phone: [facility] 08-18-2023 14:27-0400 Respiratory rate 16 /min Vimal Crandall MD Work Phone: [facility] 08-18-2023 14:27-0400 SaO2% (BldA) [Mass fraction] 97 % Vimal Crandall MD Work Phone: [facility] 08-18-2023 14:27-0400 Systolic blood pressure 155 mm[Hg] Vimal Crandall MD Work Phone: [facility] 07-13-2023 14:50-0500 Body height 180.3 cm Vimal Crandall MD Work Phone: [facility] 07-13-2023 14:50-0500 Body temperature 97.2 [degF] Vimal Crandall MD Work Phone: [facility] 07-13-2023 14:50-0500 Body weight 114.8 kg Vimal Crandall MD Work Phone: [facility] 07-13-2023 14:50-0500 Diastolic blood pressure 79 mm[Hg] Vimal Crandall MD Work Phone: [facility] 07-13-2023 14:50-0500 Heart rate 69 /min Vimal Crandall MD Work Phone: [facility] 07-13-2023 14:50-0500 Respiratory rate 16 /min Vimal Crandall MD Work Phone: [facility] 07-13-2023 14:50-0500 SaO2% (BldA) [Mass fraction] 97 % Vimal Crandall MD Work Phone: [facility] 07-13-2023 14:50-0500 Systolic blood pressure 160 mm[Hg] Vimal Crandall MD Work Phone: [facility] 06-23-2023 12:52-0500 Body height 181.6 cm Orlin Lorenzana DO Work Phone: [facility] 06-23-2023 12:52-0500 Body mass index (BMI) [Ratio] 34.93 kg/m2 Orlin Lorenzana DO Work Phone: [facility] 06-23-2023 12:52-0500 Body weight 115.21 kg Orlin Lorenzana DO Work Phone: [facility] 06-15-2023 14:43-0500 Body temperature 97.2 [degF] Vimal Crandall MD Work Phone: [facility] 06-15-2023 14:43-0500 Body weight 116.4 kg Vimal Crandall MD Work Phone: [facility] 06-15-2023 14:43-0500 Diastolic blood pressure 70 mm[Hg] Vimal Crandall MD Work Phone: [facility] 06-15-2023 14:43-0500 Heart rate 63 /min Vimal Crandall MD Work Phone: [facility] 06-15-2023 14:43-0500 Respiratory rate 16 /min Vimal Crandall MD Work Phone: [facility] 06-15-2023 14:43-0500 SaO2% (BldA) [Mass fraction] 100 % Vimal Crandall MD Work Phone: [facility] 06-15-2023 14:43-0500 Systolic blood pressure 142 mm[Hg] Vimal Crandall MD Work Phone: [facility] 03-23-2023 09:50-0500 Body height 180.3 cm Vimal Crandall MD Work Phone: [facility] 03-23-2023 09:50-0500 Body temperature 97.59 [degF] Vimal Crandall MD Work Phone: [facility] 03-23-2023 09:50-0500 Body weight 114.03 kg Vimal Crandall MD Work Phone: [facility] 03-23-2023 09:50-0500 Diastolic blood pressure 83 mm[Hg] Vimal Crandall MD Work Phone: [facility] 03-23-2023 09:50-0500 Heart rate 63 /min Vimal Crandall MD Work Phone: [facility] 03-23-2023 09:50-0500 Respiratory rate 16 /min Vimal Crandall MD Work Phone: [facility] 03-23-2023 09:50-0500 SaO2% (BldA) [Mass fraction] 96 % Vimal Crandall MD Work Phone: [facility] 03-23-2023 09:50-0500 Systolic blood pressure 162 mm[Hg] Vimal Crandall MD Work Phone: [facility] 02-16-2023 10:47-0400 Body height 180.3 cm Vimal Crandall MD Work Phone: [facility] 02-16-2023 10:47-0400 Body temperature 97.5 [degF] Vimal Crandall MD Work Phone: [facility] 02-16-2023 10:47-0400 Body weight 113.58 kg Vimal Crandall MD Work Phone: [facility] 02-16-2023 10:47-0400 Diastolic blood pressure 71 mm[Hg] Vimal Crandall MD Work Phone: [facility] 02-16-2023 10:47-0400 Heart rate 52 /min Vimal Crandall MD Work Phone: [facility] 02-16-2023 10:47-0400 Respiratory rate 16 /min Vimal Crandall MD Work Phone: [facility] 02-16-2023 10:47-0400 SaO2% (BldA) [Mass fraction] 95 % Vimal Crandall MD Work Phone: [facility] 02-16-2023 10:47-0400 Systolic blood pressure 138 mm[Hg] Vimal Crandall MD Work Phone: [facility] 01-19-2023 09:50-0400 Body height 180.3 cm Vimal Crandall MD Work Phone: [facility] 01-19-2023 09:50-0400 Body temperature 97.3 [degF] Vimal Crandall MD Work Phone: [facility] 01-19-2023 09:50-0400 Body weight 113.22 kg Vimal Crandall MD Work Phone: [facility] 01-19-2023 09:50-0400 Diastolic blood pressure 67 mm[Hg] Vimal Crandall MD Work Phone: [facility] 01-19-2023 09:50-0400 Heart rate 57 /min Vimal Crandall MD Work Phone: [facility] 01-19-2023 09:50-0400 Respiratory rate 16 /min Vimal Crandall MD Work Phone: [facility] 01-19-2023 09:50-0400 SaO2% (BldA) [Mass fraction] 96 % Vimal Crandall MD Work Phone: [facility] 01-19-2023 09:50-0400 Systolic blood pressure 154 mm[Hg] Vimal Crandall MD Work Phone: [facility] 12-22-2022 15:58-0400 Body height 180.3 cm Vimal Crandall MD Work Phone: [facility] 12-22-2022 15:58-0400 Body temperature 97.81 [degF] Vimal Crandall MD Work Phone: [facility] 12-22-2022 15:58-0400 Body weight 112.31 kg Vimal Crandall MD Work Phone: [facility] 12-22-2022 15:58-0400 Diastolic blood pressure 80 mm[Hg] Vimal Crandall MD Work Phone: [facility] 12-22-2022 15:58-0400 Heart rate 70 /min Vimal Crandall MD Work Phone: [facility] 12-22-2022 15:58-0400 Respiratory rate 16 /min Vimal Crandall MD Work Phone: [facility] 12-22-2022 15:58-0400 SaO2% (BldA) [Mass fraction] 96 % Vimal Crandall MD Work Phone: [facility] 12-22-2022 15:58-0400 Systolic blood pressure 132 mm[Hg] Vimal Crandall MD Work Phone: [facility] 11-24-2022 14:30-0400 Body height 180.3 cm Vimal Crandall MD Work Phone: [facility] 11-24-2022 14:30-0400 Body temperature 97.3 [degF] Vimal Crandall MD Work Phone: [facility] 11-24-2022 14:30-0400 Body weight 111.49 kg Vimal Crandall MD Work Phone: [facility] 11-24-2022 14:30-0400 Diastolic blood pressure 72 mm[Hg] Vimal Crandall MD Work Phone: [facility] 11-24-2022 14:30-0400 Heart rate 70 /min Vimal Crandall MD Work Phone: [facility] 11-24-2022 14:30-0400 Respiratory rate 16 /min Vimal Crandall MD Work Phone: [facility] 11-24-2022 14:30-0400 SaO2% (BldA) [Mass fraction] 95 % Vimal Crandall MD Work Phone: [facility] 11-24-2022 14:30-0400 Systolic blood pressure 154 mm[Hg] Vimal Crandall MD Work Phone: [facility] 11-11-2022 14:05-0400 Body height 180.3 cm Denis Almanza MD Work Phone: [facility] 11-11-2022 14:05-0400 Body temperature 97.39 [degF] Denis Almanza MD Work Phone: [facility] 11-11-2022 14:05-0400 Body weight 111.58 kg Denis Almanza MD Work Phone: [facility] 11-11-2022 14:05-0400 Diastolic blood pressure 71 mm[Hg] Denis Almanza MD Work Phone: [facility] 11-11-2022 14:05-0400 Heart rate 79 /min Denis Almanza MD Work Phone: [facility] 11-11-2022 14:05-0400 SaO2% (BldA) [Mass fraction] 96 % Denis Almanza MD Work Phone: [facility] 11-11-2022 14:05-0400 Systolic blood pressure 123 mm[Hg] Denis Almanza MD Work Phone: [facility] 10-31-2022 11:05-0400 Body height 181.61 cm Gem Phillips Other [facility] 10-31-2022 11:05-0400 Body mass index (BMI) [Ratio] 32.89 kg/m2 Gem Jacqueline Other [facility] 10-31-2022 11:05-0400 Body temperature 97 [degF] Gem Jacqueline Other [facility] 10-31-2022 11:05-0400 Body weight 108.5 kg Gem Jacqueline Other [facility] 10-31-2022 11:05-0400 Diastolic blood pressure 68 mm[Hg] Gem Jacqueline Other [facility] 10-31-2022 11:05-0400 Respiratory rate 18 /min Gem Jacqueline Other [facility] 10-31-2022 11:05-0400 SaO2% (BldA) [Mass fraction] 96 % Gem Jacqueline Other [facility] 10-31-2022 11:05-0400 Systolic blood pressure 138 mm[Hg] Gem Jacqueline Other [facility] 10-21-2022 10:29-0400 Body temperature 97.39 [degF] Denis Almanza MD Work Phone: [facility] 10-21-2022 10:29-0400 Diastolic blood pressure 61 mm[Hg] Denis Almanza MD Work Phone: [facility] 10-21-2022 10:29-0400 Heart rate 63 /min Denis Almanza MD Work Phone: [facility] 10-21-2022 10:29-0400 SaO2% (BldA) [Mass fraction] 96 % Denis Almanza MD Work Phone: [facility] 10-21-2022 10:29-0400 Systolic blood pressure 132 mm[Hg] Denis Almanza MD Work Phone: [facility] 10-20-2022 13:53-0400 Body height 180.3 cm Vimal Crandall MD Work Phone: [facility] 10-20-2022 13:53-0400 Body temperature 97.3 [degF] Vimal Crandall MD Work Phone: [facility] 10-20-2022 13:53-0400 Body weight 107.86 kg Vimal Crandall MD Work Phone: [facility] 10-20-2022 13:53-0400 Diastolic blood pressure 61 mm[Hg] Vimal Crandall MD Work Phone: [facility] 10-20-2022 13:53-0400 Heart rate 87 /min Vimal Crandall MD Work Phone: [facility] 10-20-2022 13:53-0400 Respiratory rate 16 /min Vimal Crandall MD Work Phone: [facility] 10-20-2022 13:53-0400 SaO2% (BldA) [Mass fraction] 96 % Vimal Crandall MD Work Phone: [facility] 10-20-2022 13:53-0400 Systolic blood pressure 116 mm[Hg] Vimal Crandall MD Work Phone: [facility] 09-17-2022 10:03-0400 Body height 181.6 cm Denis Almanza MD Work Phone: [facility] 09-17-2022 10:03-0400 Body weight 111.31 kg Denis Almanza MD Work Phone: [facility] 09-17-2022 10:03-0400 Diastolic blood pressure 89 mm[Hg] Denis Almanza MD Work Phone: [facility] 09-17-2022 10:03-0400 Heart rate 53 /min Denis Almanza MD Work Phone: [facility] 09-17-2022 10:03-0400 Systolic blood pressure 164 mm[Hg] Denis Almanza MD Work Phone: [facility] 09-01-2022 15:03-0400 Body height 181.6 cm Vimal Crandall MD Work Phone: [facility] 09-01-2022 15:03-0400 Body temperature 97.5 [degF] Vimal Crandall MD Work Phone: [facility] 09-01-2022 15:03-0400 Body weight 111.49 kg Vimal Crandall MD Work Phone: [facility] 09-01-2022 15:03-0400 Diastolic blood pressure 80 mm[Hg] Viaml Crandall MD Work Phone: [facility] 09-01-2022 15:03-0400 Heart rate 71 /min Vimal Crandall MD Work Phone: [facility] 09-01-2022 15:03-0400 Respiratory rate 16 /min Vimal Crandall MD Work Phone: [facility] 09-01-2022 15:03-0400 SaO2% (BldA) [Mass fraction] 97 % Vimal Crandall MD Work Phone: [facility] 09-01-2022 15:03-0400 Systolic blood pressure 156 mm[Hg] Vimal Crandall MD Work Phone: [facility] 08-04-2022 13:14-0400 Body height 181.6 cm Soha Nunn APRN.CNP Work Phone: [facility] 08-04-2022 13:14-0400 Body temperature 98.01 [degF] Soha Nunn APRN.HIM MANAGER Work Phone: [facility] 08-04-2022 13:14-0400 Body weight 109.95 kg Soha Nunn APRN.HIM MANAGER Work Phone: [facility] 08-04-2022 13:14-0400 Diastolic blood pressure 63 mm[Hg] Soha Nunn APRN.HIM MANAGER Work Phone: [facility] 08-04-2022 13:14-0400 Heart rate 66 /min Soha Nunn APRN.HIM MANAGER Work Phone: [facility] 08-04-2022 13:14-0400 Respiratory rate 18 /min Soha Nunn APRN.HIM MANAGER Work Phone: [facility] 08-04-2022 13:14-0400 SaO2% (BldA) [Mass fraction] 98 % Soha Nunn APRN.HIM MANAGER Work Phone: [facility] 08-04-2022 13:14-0400 Systolic blood pressure 129 mm[Hg] Soha Nunn APRN.HIM MANAGER Work Phone: [facility] 07-08-2022 14:00-0500 Body height 181.61 cm Fito Michael Other [facility] 07-08-2022 14:00-0500 Body mass index (BMI) [Ratio] 32.73 kg/m2 Fito Michael Other [facility] 07-08-2022 14:00-0500 Body temperature 97.2 [degF] Fito Michael Other [facility] 07-08-2022 14:00-0500 Body weight 107.96 kg Fito Michael Other [facility] 07-08-2022 14:00-0500 Diastolic blood pressure 77 mm[Hg] Fito Michael Other [facility] 07-08-2022 14:00-0500 Systolic blood pressure 143 mm[Hg] Fito Michael Other [facility] 07-07-2022 13:13-0500 Body height 181.6 cm Vimal Crandall MD Work Phone: [facility] 07-07-2022 13:13-0500 Body temperature 97.39 [degF] Vimal Crandall MD Work Phone: [facility] 07-07-2022 13:13-0500 Body weight 110.36 kg Vimal Crandall MD Work Phone: [facility] 07-07-2022 13:13-0500 Diastolic blood pressure 89 mm[Hg] Vimal Crandall MD Work Phone: [facility] 07-07-2022 13:13-0500 Heart rate 80 /min Vimal Crandall MD Work Phone: [facility] 07-07-2022 13:13-0500 Respiratory rate 16 /min Vimal Crandall MD Work Phone: [facility] 07-07-2022 13:13-0500 SaO2% (BldA) [Mass fraction] 95 % Vimal Crandall MD Work Phone: [facility] 07-07-2022 13:13-0500 Systolic blood pressure 150 mm[Hg] Vimal Crandall MD Work Phone: [facility] 06-30-2022 14:15-0500 Body height 181.61 cm Fito Michael Other [facility] 06-30-2022 14:15-0500 Body mass index (BMI) [Ratio] 32.73 kg/m2 Fito Michael Other [facility] 06-30-2022 14:15-0500 Body temperature 98.1 [degF] Fito Fernanda Other [facility] 06-30-2022 14:15-0500 Body weight 107.96 kg Fito Fernanda Other [facility] 06-30-2022 14:15-0500 Diastolic blood pressure 78 mm[Hg] Fito Fernanda Other [facility] 06-30-2022 14:15-0500 Systolic blood pressure 152 mm[Hg] Fito Fernanda Other [facility] 06-09-2022 13:05-0500 Body height 181.6 cm Vmial Crandall MD Work Phone: [facility] 06-09-2022 13:05-0500 Body temperature 97.59 [degF] Vimal Crandall MD Work Phone: [facility] 06-09-2022 13:05-0500 Body weight 110.68 kg Vimal Crandall MD Work Phone: [facility] 06-09-2022 13:05-0500 Diastolic blood pressure 63 mm[Hg] Vimal Crandall MD Work Phone: [facility] 06-09-2022 13:05-0500 Heart rate 69 /min Vimal Crandall MD Work Phone: [facility] 06-09-2022 13:05-0500 Respiratory rate 16 /min Vimal Crandall MD Work Phone: [facility] 06-09-2022 13:05-0500 SaO2% (BldA) [Mass fraction] 95 % Vimal Crandall MD Work Phone: [facility] 06-09-2022 13:05-0500 Systolic blood pressure 127 mm[Hg] Vimal Crandall MD Work Phone: [facility] 05-12-2022 14:08-0500 Body height 181.6 cm Soha Nunn INSURANCE SALESMAN.HIM MANAGER Work Phone: [facility] 05-12-2022 14:08-0500 Body temperature 97.3 [degF] Soha Nunn INSURANCE SALESMAN.HIM MANAGER Work Phone: [facility] 05-12-2022 14:08-0500 Body weight 116.67 kg Soha Nunn INSURANCE SALESMAN.HIM MANAGER Work Phone: [facility] 05-12-2022 14:08-0500 Diastolic blood pressure 78 mm[Hg] Soha Nunn INSURANCE SALESMAN.HIM MANAGER Work Phone: [facility] 05-12-2022 14:08-0500 Heart rate 72 /min Soha Nunn INSURANCE SALESMAN.HIM MANAGER Work Phone: [facility] 05-12-2022 14:08-0500 Respiratory rate 16 /min Soha Nunn INSURANCE SALESMAN.HIM MANAGER Work Phone: [facility] 05-12-2022 14:08-0500 SaO2% (BldA) [Mass fraction] 97 % Soha Nunn INSURANCE SALESMAN.HIM MANAGER Work Phone: [facility] 05-12-2022 14:08-0500 Systolic blood pressure 132 mm[Hg] Soha Nunn INSURANCE SALESMAN.HIM MANAGER Work Phone: [facility] 04-14-2022 13:35-0500 Body height 181.6 cm Vimal Crandall MD Work Phone: [facility] 04-14-2022 13:35-0500 Body temperature 97.81 [degF] Vimal Crandall MD Work Phone: [facility] 04-14-2022 13:35-0500 Body weight 111.95 kg Vimal Crandall MD Work Phone: [facility] 04-14-2022 13:35-0500 Diastolic blood pressure 81 mm[Hg] Vimal Crandall MD Work Phone: [facility] 04-14-2022 13:35-0500 Heart rate 74 /min Vimal Crandall MD Work Phone: [facility] 04-14-2022 13:35-0500 Respiratory rate 16 /min Vimal Crandall MD Work Phone: [facility] 04-14-2022 13:35-0500 SaO2% (BldA) [Mass fraction] 100 % Vimal Crandall MD Work Phone: [facility] 04-14-2022 13:35-0500 Systolic blood pressure 147 mm[Hg] Vimal Crandall MD Work Phone: [facility] 03-17-2022 13:24-0500 Body height 181.6 cm Vimal Crandall MD Work Phone: [facility] 03-17-2022 13:24-0500 Body temperature 97.7 [degF] Vimal Crandall MD Work Phone: [facility] 03-17-2022 13:24-0500 Body weight 112.04 kg Vimal Crandall MD Work Phone: [facility] 03-17-2022 13:24-0500 Diastolic blood pressure 66 mm[Hg] Vimal Crandall MD Work Phone: [facility] 03-17-2022 13:24-0500 Heart rate 63 /min Vimal Crandall MD Work Phone: [facility] 03-17-2022 13:24-0500 Respiratory rate 16 /min Vimal Crandall MD Work Phone: [facility] 03-17-2022 13:24-0500 SaO2% (BldA) [Mass fraction] 96 % Vimal Crandall MD Work Phone: [facility] 03-17-2022 13:24-0500 Systolic blood pressure 144 mm[Hg] Vimal Crandall MD Work Phone: [facility] 02-17-2022 13:56-0400 Body height 181.6 cm Soha Nunn APRN.HIM MANAGER Work Phone: [facility] 02-17-2022 13:56-0400 Body temperature 97.5 [degF] Soha Nunn INSURANCE SALESMAN.HIM MANAGER Work Phone: [facility] 02-17-2022 13:56-0400 Body weight 110.31 kg Soha Nunn APRN.HIM MANAGER Work Phone: [facility] 02-17-2022 13:56-0400 Diastolic blood pressure 75 mm[Hg] Soha Nunn APRN.HIM MANAGER Work Phone: [facility] 02-17-2022 13:56-0400 Heart rate 69 /min Soha Nunn APRN.HIM MANAGER Work Phone: [facility] 02-17-2022 13:56-0400 Respiratory rate 16 /min Soha Nunn APRN.HIM MANAGER Work Phone: [facility] 02-17-2022 13:56-0400 SaO2% (BldA) [Mass fraction] 97 % Soha Nunn APRN.HIM MANAGER Work Phone: [facility] 02-17-2022 13:56-0400 Systolic blood pressure 150 mm[Hg] Soha Nunn APRN.HIM MANAGER Work Phone: [facility] 01-18-2022 12:39-0400 Body height 181.6 cm Vimal Crandall MD Work Phone: [facility] 01-18-2022 12:39-0400 Body temperature 97.59 [degF] Vimal Crandall MD Work Phone: [facility] 01-18-2022 12:39-0400 Body weight 109.86 kg Vimal Crandall MD Work Phone: [facility] 01-18-2022 12:39-0400 Diastolic blood pressure 71 mm[Hg] Vimal Crandall MD Work Phone: [facility] 01-18-2022 12:39-0400 Heart rate 56 /min Vimal Crandall MD Work Phone: [facility] 01-18-2022 12:39-0400 Respiratory rate 16 /min Vimal Crandall MD Work Phone: [facility] 01-18-2022 12:39-0400 SaO2% (BldA) [Mass fraction] 98 % Vimal Crandall MD Work Phone: [facility] 01-18-2022 12:39-0400 Systolic blood pressure 138 mm[Hg] Vimal Crandall MD Work Phone: [facility] 01-06-2022 14:45-0400 Body height 181.61 cm Fito Michael Other [facility] 01-06-2022 14:45-0400 Body mass index (BMI) [Ratio] 32.73 kg/m2 Fito Michael Other [facility] 01-06-2022 14:45-0400 Body temperature 97.8 [degF] Fito Michael Other [facility] 01-06-2022 14:45-0400 Body weight 107.96 kg Fito Michael Other [facility] 01-06-2022 14:45-0400 Diastolic blood pressure 86 mm[Hg] Fito Michael Other [facility] 01-06-2022 14:45-0400 Systolic blood pressure 125 mm[Hg] Fito Michael Other [facility] Other 01-02-2022 09:32-0400 Body temperature 97.4 [degF] DO Sana Walter Work Phone: [facility] 01-02-2022 09:32-0400 Diastolic blood pressure 79 mm[Hg] DO Sana Walter Work Phone: [facility] 01-02-2022 09:32-0400 Heart rate 63 /min DO Sana Walter Work Phone: [facility] 01-02-2022 09:32-0400 Respiratory rate 18 /min DO Sana Walter Work Phone: [facility] 01-02-2022 09:32-0400 SaO2% (BldA) [Mass fraction] 96 % DO Sana Walter Work Phone: [facility] 01-02-2022 09:32-0400 Systolic blood pressure 166 mm[Hg] DO Sana Walter Work Phone: [facility] 01-02-2022 09:31-0400 Body height 181.61 cm DO Sana Walter Work Phone: [facility] 01-02-2022 09:31-0400 Body weight 109 kg DO Sana Walter Work Phone: [facility] 01-01-2022 13:48-0400 Body height 181.6 cm Vimal Crandall MD Work Phone: [facility] 01-01-2022 13:48-0400 Body temperature 97.7 [degF] Vimal Crandall MD Work Phone: [facility] 01-01-2022 13:48-0400 Body weight 110.13 kg Vimal Crandall MD Work Phone: [facility] 01-01-2022 13:48-0400 Diastolic blood pressure 77 mm[Hg] Vimal Crandall MD Work Phone: [facility] 01-01-2022 13:48-0400 Heart rate 84 /min Vimal Crandall MD Work Phone: [facility] 01-01-2022 13:48-0400 Respiratory rate 16 /min Vimal Crandall MD Work Phone: [facility] 01-01-2022 13:48-0400 SaO2% (BldA) [Mass fraction] 95 % Vimal Crandall MD Work Phone: [facility] 01-01-2022 13:48-0400 Systolic blood pressure 147 mm[Hg] Vimal Crandall MD Work Phone: [facility] 12-18-2021 13:49-0400 Body height 181.6 cm Vimal Crandall MD Work Phone: [facility] 12-18-2021 13:49-0400 Body temperature 97.81 [degF] Vimal Crandall MD Work Phone: [facility] 12-18-2021 13:49-0400 Body weight 109.5 kg Vimal Crandall MD Work Phone: [facility] 12-18-2021 13:49-0400 Diastolic blood pressure 70 mm[Hg] Vimal Crandall MD Work Phone: [facility] 12-18-2021 13:49-0400 Heart rate 85 /min Vimal Crandall MD Work Phone: [facility] 12-18-2021 13:49-0400 Respiratory rate 16 /min Vimal Crandall MD Work Phone: [facility] 12-18-2021 13:49-0400 SaO2% (BldA) [Mass fraction] 96 % Vimal Crandall MD Work Phone: [facility] 12-18-2021 13:49-0400 Systolic blood pressure 136 mm[Hg] Vimal Crandall MD Work Phone: [facility] 12-06-2021 10:53-0400 Body height 180.34 cm DO Sana Walter Work Phone: [facility] 12-06-2021 10:53-0400 Body temperature 98 [degF] DO Sana Walter Work Phone: [facility] 12-06-2021 10:53-0400 Body weight 108.7 kg DO Sana Walter Work Phone: [facility] 12-06-2021 10:53-0400 Diastolic blood pressure 73 mm[Hg] DO Sana Walter Work Phone: [facility] 12-06-2021 10:53-0400 Heart rate 54 /min DO Sana Walter Work Phone: [facility] 12-06-2021 10:53-0400 Respiratory rate 20 /min DO Sana Walter Work Phone: [facility] 12-06-2021 10:53-0400 SaO2% (BldA) [Mass fraction] 94 % DO Sana Walter Work Phone: [facility] 12-06-2021 10:53-0400 Systolic blood pressure 158 mm[Hg] DO Sana Walter Work Phone: [facility] 12-04-2021 11:35-0400 Body height 181.61 cm DO Sana Walter Work Phone: [facility] 12-04-2021 11:35-0400 Body temperature 98 [degF] DO Sana Walter Work Phone: [facility] 12-04-2021 11:35-0400 Body weight 108.7 kg DO Sana Walter Work Phone: [facility] 12-04-2021 11:35-0400 Diastolic blood pressure 80 mm[Hg] DO Sana Walter Work Phone: [facility] 12-04-2021 11:35-0400 Heart rate 72 /min DO Sana Walter Work Phone: [facility] 12-04-2021 11:35-0400 Respiratory rate 18 /min DO Sana Walter Work Phone: [facility] 12-04-2021 11:35-0400 SaO2% (BldA) [Mass fraction] 96 % DO Sana Walter Work Phone: [facility] 12-04-2021 11:35-0400 Systolic blood pressure 133 mm[Hg] DO Sana Walter Work Phone: [facility] 11-20-2021 09:55-0400 Body height 181.6 cm Vimal Crandall MD Work Phone: [facility] 11-20-2021 09:55-0400 Body temperature 97.81 [degF] Vimal Crandall MD Work Phone: [facility] 11-20-2021 09:55-0400 Body weight 106.96 kg Vimal Crandall MD Work Phone: [facility] 11-20-2021 09:55-0400 Diastolic blood pressure 86 mm[Hg] Vimal Crandall MD Work Phone: [facility] 11-20-2021 09:55-0400 Heart rate 57 /min Vimal Crandall MD Work Phone: [facility] 11-20-2021 09:55-0400 Respiratory rate 16 /min Vimal Crandall MD Work Phone: [facility] 11-20-2021 09:55-0400 SaO2% (BldA) [Mass fraction] 99 % Vimal Crandall MD Work Phone: [facility] 11-20-2021 09:55-0400 Systolic blood pressure 116 mm[Hg] Vimal Crandall MD Work Phone: [facility] 10-23-2021 14:38-0400 Body height 181.6 cm Vimal Crandall MD Work Phone: [facility] 10-23-2021 14:38-0400 Body temperature 97.9 [degF] Vimal Crandall MD Work Phone: [facility] 10-23-2021 14:38-0400 Body weight 106.5 kg Vimal Crandall MD Work Phone: [facility] 10-23-2021 14:38-0400 Diastolic blood pressure 71 mm[Hg] Vimal Crandall MD Work Phone: [facility] 10-23-2021 14:38-0400 Heart rate 57 /min Vimal Crandall MD Work Phone: [facility] 10-23-2021 14:38-0400 Respiratory rate 16 /min Vimal Crandall MD Work Phone: [facility] 10-23-2021 14:38-0400 SaO2% (BldA) [Mass fraction] 94 % Vimal Crandall MD Work Phone: [facility] 10-23-2021 14:38-0400 Systolic blood pressure 149 mm[Hg] Vimal Crandall MD Work Phone: [facility] 08-28-2021 14:59-0400 Body height 181.6 cm Vimal Crandall MD Work Phone: [facility] 08-28-2021 14:59-0400 Body temperature 98.1 [degF] Vimal Crandall MD Work Phone: [facility] 08-28-2021 14:59-0400 Body weight 105.87 kg Vimal Crandall MD Work Phone: [facility] 08-28-2021 14:59-0400 Diastolic blood pressure 87 mm[Hg] Vimal Crandall MD Work Phone: [facility] 08-28-2021 14:59-0400 Heart rate 67 /min Vimal Crandall MD Work Phone: [facility] 08-28-2021 14:59-0400 Respiratory rate 16 /min Vimal Crandall MD Work Phone: [facility] 08-28-2021 14:59-0400 SaO2% (BldA) [Mass fraction] 100 % Vimal Crandall MD Work Phone: [facility] 08-28-2021 14:59-0400 Systolic blood pressure 132 mm[Hg] Vimal Crandall MD Work Phone: [facility] 07-30-2021 15:36-0400 Body height 181.6 cm Vimal Crandall MD Work Phone: [facility] 07-30-2021 15:36-0400 Body temperature 97.9 [degF] Vimal Crandall MD Work Phone: [facility] 07-30-2021 15:36-0400 Body weight 106.23 kg Vimal Crandall MD Work Phone: [facility] 07-30-2021 15:36-0400 Diastolic blood pressure 68 mm[Hg] Vimal Crandall MD Work Phone: [facility] 07-30-2021 15:36-0400 Heart rate 67 /min Vimal Crandall MD Work Phone: [facility] 07-30-2021 15:36-0400 Respiratory rate 16 /min Vimal Crandall MD Work Phone: [facility] 07-30-2021 15:36-0400 SaO2% (BldA) [Mass fraction] 96 % Vimal Crandall MD Work Phone: [facility] 07-30-2021 15:36-0400 Systolic blood pressure 136 mm[Hg] Vimal Crandall MD Work Phone: [facility] 07-02-2021 16:15-0500 Body weight 106.6 kg Ish Magdaleno [facility] Other Encounters Encounter Date Encounter Type Care Provider Facility Start: 08-01-2024 End: 08-01-2024 ambulatory [facility] Work Phone: Hematology/Oncology Comment on above: Neutropenia associat ed with infection (HCC) (Primary Dx); Multiple myeloma not having achieved remission (HCC) Start: 07-31-2024 End: 07-31-2024 ambulatory [facility] Work Phone: Hematology/Oncology Comment on above: Neutropenia associat ed with infection (HCC) (Primary Dx); Multiple myeloma not having achieved remission (HCC) Start: 07-30-2024 End: 07-30-2024 Office outpatient visit 40 minutes Vimal Crandall MD Work Phone: Hematology/Oncology Comment on above: Multiple myeloma not having achieved remission (HCC) (Primary Dx); Chemotherapy-induced neutropenia (HCC); Hepatocellular carcinoma (HCC); Neutropenia associated with infection (HCC); Thrombocytopenia (HCC); 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HCC); DM (diabetes mellitus), type 2 with complications (HCC); Stage 3 chronic kidney disease, unspecified whether stage 3a or 3b CKD (HCC) Start: 07-30-2024 End: 07-31-2024 ambulatory Chair 2 [place] Work Phone: Hematology/Oncology Comment on above: Multiple myeloma not having achieved remission (HCC) (Primary Dx); Thrombocytopenia (HCC); Neutropenia associated with infection (HCC) Start: 07-27-2024 End: 07-27-2024 ambulatory Osvaldo Moreira MD Work Phone: Hematology/Oncology Comment on above: Multiple myeloma not having achieved remission (HCC) (Primary Dx); Chemotherapy-induced neutropenia (HCC); Hepatocellular carcinoma (HCC); Type 2 diabetes (HCC); Atrial fibrillation, unspecified type (HCC) Start: 07-27-2024 End: 07-27-2024 Telemedicine consultation with patient Osvaldo Moreira MD Work Phone: Hematology/Oncology Start: 07-26-2024 End: 07-26-2024 ambulatory JAZMYN JOSHUA Facility:[facility] Start: 07-26-2024 End: 07-26-2024 Patient encounter procedure Blake Ingramjeff MARTINEZ Work Phone: Cardiology Comment on above: Paroxysmal atrial fi brillation (HCC) (Primary Dx) Start: 07-23-2024 End: 07-23-2024 ambulatory [facility] Work Phone: Hematology/Oncology Comment on above: Multiple myeloma not having achieved remission (HCC) (Primary Dx) Start: 07-20-2024 End: 07-20-2024 ambulatory [facility] Work Phone: Hematology/Oncology Comment on above: Neutropenia associat ed with infection (HCC) (Primary Dx); Multiple myeloma not having achieved remission (HCC) Start: 07-19-2024 End: 07-20-2024 ambulatory [facility] [place] Work Phone: Hematology/Oncology Comment on above: Neutropenia associat ed with infection (HCC) (Primary Dx); Multiple myeloma not having achieved remission (HCC) Start: 07-18-2024 End: 07-18-2024 ambulatory [facility] Work Phone: Hematology/Oncology Comment on above: Neutropenia associat ed with infection (HCC) (Primary Dx); Multiple myeloma not having achieved remission (HCC) Start: 07-17-2024 End: 07-17-2024 ambulatory [facility] Work Phone: Hematology/Oncology Comment on above: Neutropenia associat ed with infection (HCC) (Primary Dx); Multiple myeloma not having achieved remission (HCC) Start: 07-17-2024 End: 07-17-2024 Clinisync Result Encounter Generic External Data Provider [facility] External Department Unsolicited Start: 07-17-2024 End: 07-17-2024 Clinisync Result Encounter Generic External Data Provider [facility] External Department Unsolicited Start: 07-17-2024 End: 07-20-2024 Telephone encounter Arcelia Thomas RN Work Phone: Hematology/Oncology Comment on above: Care Coordination (D ischarge Follow Up ) Refill Request Start: 07-17-2024 End: 07-17-2024 Office outpatient visit 40 minutes Vimal Crandall MD Work Phone: Hematology/Oncology Comment on above: Multiple myeloma not having achieved remission (HCC) (Primary Dx); Neutropenia associated with infection (HCC); 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HCC); DM (diabetes mellitus), type 2 with complications (HCC); Hepatocellular carcinoma (HCC); Thrombocytopenia (HCC) Start: 07-17-2024 End: 07-17-2024 ambulatory VIMAL CRANDALL Facility:[facility] Start: 07-13-2024 End: 07-13-2024 Telephone encounter Arcelia Thomas RN Work Phone: Hematology/Oncology Comment on above: Care Coordination (A ppointment) Start: 07-12-2024 End: 07-16-2024 Evaluation and management of inpatient LETHA BEST Facility:[facility] Start: 07-12-2024 End: 07-12-2024 Telephone encounter Arcelia Thomas RN Work Phone: Hematology/Oncology Comment on above: Care Coordination (F harsh, Weakness, Dizziness) Start: 07-10-2024 End: 07-10-2024 Bamboo flowsheet Kay Torres DIRECTOR OF MEDICAL EDUCATION [facility] Start: 07-10-2024 End: 07-10-2024 Bamboo flowsheet Kay Torres DIRECTOR OF MEDICAL EDUCATION [facility] Start: 07-10-2024 End: 07-10-2024 ambulatory Kay Torres DIRECTOR OF MEDICAL EDUCATION [facility] Comment on above: Spasm of cervical pa raspinous muscle (Primary Dx); Whiplash injury, acute, subsequent encounter Start: 07-09-2024 End: 07-09-2024 Clinisync Result Encounter Generic External Data Provider [facility] External Department Unsolicited Start: 07-09-2024 End: 07-09-2024 Clinisync Result Encounter Generic External Data Provider [facility] External Department Unsolicited Start: 07-09-2024 End: 07-09-2024 ambulatory LETHA BEST Facility:[facility] Start: 07-05-2024 End: 07-05-2024 Bamboo flowsheet Kay Torres DIRECTOR OF MEDICAL EDUCATION [facility] Start: 07-05-2024 End: 07-05-2024 Bamboo flowsheet Kay Torres DIRECTOR OF MEDICAL EDUCATION [facility] Start: 07-05-2024 End: 07-05-2024 ambulatory Kay Torres DIRECTOR OF MEDICAL EDUCATION [facility] Comment on above: Spasm of cervical pa raspinous muscle (Primary Dx); Whiplash injury, acute, subsequent encounter Start: 07-04-2024 End: 07-04-2024 Telephone encounter Arcelia Thomas RN Work Phone: Hematology/Oncology Comment on above: Care Coordination (O ral Anti-Cancer Agent Follow Up) Start: 07-03-2024 End: 07-03-2024 ambulatory Fidelina Rashaad DIRECTOR OF MEDICAL EDUCATION Work Phone: [facility] Comment on above: Spasm of cervical pa raspinous muscle (Primary Dx); Whiplash injury, acute, subsequent encounter Start: 07-02-2024 End: 07-02-2024 Clinisync Result Encounter Generic External Data Provider [facility] External Department Unsolicited Start: 07-02-2024 End: 07-02-2024 Clinisync Result Encounter Generic External Data Provider [facility] External Department Unsolicited Start: 07-02-2024 End: 07-02-2024 ambulatory [facility] Work Phone: Hematology/Oncology Comment on above: Multiple myeloma not having achieved remission (HCC) (Primary Dx) Start: 06-28-2024 End: 06-28-2024 Bamboo flowsheet Kay Torres DIRECTOR OF MEDICAL EDUCATION [facility] Start: 06-28-2024 End: 06-28-2024 Bamboo flowsheet Kay Torres DIRECTOR OF MEDICAL EDUCATION [facility] Start: 06-28-2024 End: 06-28-2024 Telephone encounter Arcelia Thomas RN Work Phone: Hematology/Oncology Comment on above: Care Coordination (D ental Question) Refill Request (Allo purinol) Start: 06-28-2024 End: 06-28-2024 ambulatory Kay Torres DIRECTOR OF MEDICAL EDUCATION [facility] Comment on above: Spasm of cervical pa raspinous muscle (Primary Dx); Whiplash injury, acute, subsequent encounter Start: 06-26-2024 End: 06-26-2024 Clinisync Result Encounter Generic External Data Provider [facility] External Department Unsolicited Start: 06-26-2024 End: 06-26-2024 Clinisync Result Encounter Generic External Data Provider [facility] External Department Unsolicited Start: 06-26-2024 End: 06-26-2024 ambulatory Fidelina Neil DIRECTOR OF MEDICAL EDUCATION Work Phone: [facility] Comment on above: Spasm of cervical pa raspinous muscle (Primary Dx); Whiplash injury, acute, subsequent encounter Start: 06-22-2024 End: 06-22-2024 Telephone encounter Arcelia Thomas RN Work Phone: Hematology/Oncology Comment on above: Care Coordination (D examethasone) Care Coordination (P omalyst Update) Start: 06-22-2024 End: 06-22-2024 ambulatory [facility] Work Phone: Hematology/Oncology Comment on above: Neutropenia associat ed with infection (HCC) (Primary Dx); Multiple myeloma not having achieved remission (HCC) Oral Anti-cancer Age nt Education (Pomalidomide); Non-Chemotherapy Treatment (Daratumumab Hyaluronidase) Start: 06-22-2024 End: 06-22-2024 Nursing evaluation of patient and report Arcelia Thomas RN Work Phone: Hematology/Oncology Comment on above: Encounter for educat ion (Primary Dx) Start: 06-21-2024 End: 06-21-2024 Telephone encounter Financial Navigator Reddy Work Phone: Hematology/Oncology Comment on above: Benefits Investigati on (Good Day Jon,//I am your Financial Navigator, Audelia. I wanted to reach out and introduce myself. I welcome the opportunity to meet with you as I can answer questions related to your health plan and any expected out of pocket costs while you are in treatment.//You will also find a survey attached to this message that can help me better serve your financial needs. You can complete this at your earliest convenience. Please feel free to stop in or call [phone] for any questions you may have. I) Care Coordination (T reatment Changes) Start: 06-20-2024 End: 06-20-2024 ambulatory [facility] Work Phone: Hematology/Oncology Comment on above: Neutropenia associat ed with infection (HCC) (Primary Dx); Multiple myeloma not having achieved remission (HCC) Start: 06-19-2024 End: 06-19-2024 Telephone encounter Osvaldo Moreira MD Work Phone: Hematology/Oncology Comment on above: Patient Update Start: 06-19-2024 End: 06-19-2024 ambulatory Fidelina Neil PTA Work Phone: [facility] Comment on above: Spasm of cervical pa raspinous muscle (Primary Dx); Whiplash injury, acute, subsequent encounter Start: 06-19-2024 End: 06-19-2024 ambulatory [facility] Work Phone: Hematology/Oncology Comment on above: Neutropenia associat ed with infection (HCC) (Primary Dx); Multiple myeloma not having achieved remission (HCC) Start: 06-18-2024 End: 06-18-2024 Clinisync Result Encounter Generic External Data Provider [facility] External Department Unsolicited Start: 06-18-2024 End: 06-18-2024 Clinisync Result Encounter Generic External Data Provider [facility] External Department Unsolicited Start: 06-18-2024 End: 06-26-2024 Telephone encounter Arcelia Thomas RN Work Phone: Hematology/Oncology Comment on above: Care Coordination (T reatment Planning) Medication Authoriza tion (Pomalyst) Start: 06-18-2024 End: 06-18-2024 Office outpatient visit 25 minutes Vimal Crandall MD Work Phone: Hematology/Oncology Comment on above: Multiple myeloma not having achieved remission (HCC) (Primary Dx); Malnutrition of moderate degree (HCC); DM (diabetes mellitus), type 2 with complications (HCC); Moderate episode of recurrent major depressive disorder (HCC); 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HCC); Neutropenia associated with infection (HCC) Start: 06-18-2024 End: 06-18-2024 ambulatory [facility] Work Phone: Hematology/Oncology Comment on above: Neutropenia associat ed with infection (HCC) (Primary Dx); Multiple myeloma not having achieved remission (HCC) Refill Request Start: 06-15-2024 End: 06-15-2024 Clinisync Result Encounter Generic External Data Provider [facility] External Department Unsolicited Start: 06-15-2024 End: 06-15-2024 Clinisync Result Encounter Generic External Data Provider [facility] External Department Unsolicited Start: 06-15-2024 End: 06-15-2024 ambulatory Osvaldo Moreira MD Work Phone: Hematology/Oncology Comment on above: Multiple myeloma not having achieved remission (HCC) (Primary Dx); Chemotherapy-induced neutropenia (HCC); Hepatocellular carcinoma (HCC); Type 2 diabetes mellitus without complication, with long-term current use of insulin (HCC) Start: 06-15-2024 End: 06-15-2024 Patient encounter procedure Osvaldo Moreira MD Work Phone: Hematology/Oncology Start: 06-13-2024 End: 06-13-2024 ambulatory [facility] Work Phone: Hematology/Oncology Comment on above: Neutropenia associat ed with infection (HCC) (Primary Dx); Multiple myeloma not having achieved remission (HCC) Start: 06-12-2024 End: 06-12-2024 Orders Only Carly Hampton APRN.CNP Work Phone: Hematology/Oncology Comment on above: Spasm of cervical pa raspinous muscle (Primary Dx); Whiplash injury, acute, subsequent encounter Neutropenia associat ed with infection (HCC) (Primary Dx); Multiple myeloma not having achieved remission (HCC) Start: 06-11-2024 End: 06-11-2024 Clinisync Result Encounter Generic External Data Provider [facility] External Department Unsolicited Start: 06-11-2024 End: 06-11-2024 Clinisync Result Encounter Generic External Data Provider [facility] External Department Unsolicited Start: 06-11-2024 End: 06-11-2024 Patient encounter procedure Soha Nunn HIM MANAGER Work Phone: Hematology/Oncology Start: 06-11-2024 End: 06-11-2024 ambulatory [facility] Work Phone: Hematology/Oncology Comment on above: Neutropenia associat ed with infection (HCC) (Primary Dx); Multiple myeloma not having achieved remission (HCC) Multiple myeloma not having achieved remission (HCC) (Primary Dx); Neutropenia associated with infection (HCC); 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HCC); Stage 3 chronic kidney disease, unspecified whether stage 3a or 3b CKD (HCC); Thrombocytopenia (HCC); Type 2 diabetes (HCC) Start: 06-07-2024 End: 06-07-2024 Clinisync Result Encounter Generic External Data Provider [facility] External Department Unsolicited Start: 06-07-2024 End: 06-07-2024 Clinisync Result Encounter Generic External Data Provider [facility] External Department Unsolicited Start: 06-07-2024 End: 06-07-2024 ambulatory Fidelinajamel Neil DIRECTOR OF MEDICAL EDUCATION Work Phone: [facility] Comment on above: Spasm of cervical pa raspinous muscle (Primary Dx); Whiplash injury, acute, subsequent encounter Start: 06-07-2024 End: 06-07-2024 Office outpatient visit 25 minutes Miguel Angel Lora MD Work Phone: [facility] Comment on above: Type 2 diabetes marika itus with hyperglycemia, with long-term current use of insulin (CMS/HCC) (Primary Dx); Insulin long-term use (CMS/HCC); Hyperlipemia, mixed (CMS/HCC); Vitamin D deficiency; Encounter for dietary consultation; Class 2 obesity due to excess calories without serious comorbidity with body mass index (BMI) of 35.0 to 35.9 in adult Start: 06-07-2024 End: 06-07-2024 ambulatory [facility] Work Phone: Hematology/Oncology Comment on above: Neutropenia associat ed with infection (HCC) (Primary Dx); Multiple myeloma not having achieved remission (HCC) Start: 06-06-2024 End: 06-08-2024 Telephone encounter Arcelia Thomas RN Work Phone: Hematology/Oncology Comment on above: Care Coordination (H em/Onc Referral) Start: 06-05-2024 End: 06-05-2024 Clinisync Result Encounter Generic External Data Provider [facility] External Department Unsolicited Start: 06-05-2024 End: 06-05-2024 Clinisync Result Encounter Generic External Data Provider [facility] External Department Unsolicited Start: 06-05-2024 End: 06-06-2024 Telephone encounter Arcelia Thomas RN Work Phone: Hematology/Oncology Comment on above: Care Coordination (I njection Appointment) Start: 06-05-2024 End: 06-06-2024 ambulatory Fidelina Neil DIRECTOR OF MEDICAL EDUCATION Work Phone: [facility] Comment on above: Spasm of cervical pa raspinous muscle (Primary Dx); Whiplash injury, acute, subsequent encounter Start: 06-05-2024 End: 06-05-2024 ambulatory [facility] Work Phone: Hematology/Oncology Comment on above: Neutropenia associat ed with infection (HCC) (Primary Dx); Multiple myeloma not having achieved remission (HCC) Start: 06-04-2024 End: 06-04-2024 Clinisync Result Encounter Generic External Data Provider [facility] External Department Unsolicited Start: 06-04-2024 End: 06-04-2024 Clinisync Result Encounter Generic External Data Provider [facility] External Department Unsolicited Start: 06-04-2024 End: 06-04-2024 Patient encounter procedure Soha Nunn APRN.HIM MANAGER Work Phone: Hematology/Oncology Start: 06-04-2024 End: 06-04-2024 ambulatory [facility] [place] Work Phone: Hematology/Oncology Comment on above: Neutropenia associat ed with infection (HCC) (Primary Dx); Multiple myeloma not having achieved remission (HCC) Multiple myeloma not having achieved remission (HCC) (Primary Dx); 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HCC); Neutropenia associated with infection (HCC); Stage 3 chronic kidney disease, unspecified whether stage 3a or 3b CKD (HCC); Type 2 diabetes (HCC) Start: 06-02-2024 End: 06-04-2024 Refill Sanaweston Key DO Work Phone: [facility] Comment on above: Mixed hyperlipidemia (CMS/HCC) Start: 05-29-2024 End: 05-29-2024 Bamboo flowsheet Kashmir Lua PT Work Phone: [facility] Start: 05-29-2024 End: 05-29-2024 Bamboo flowsheet Kashmir Oliveira Chanell PT Work Phone: [facility] Start: 05-29-2024 End: 05-30-2024 Telephone encounter [facility]imal [facility]all MD [facility] Comment on above: Patient Question Start: 05-29-2024 End: 05-29-2024 ambulatory Kashmir Lua PT Work Phone: [facility] Comment on above: Spasm of cervical pa raspinous muscle (Primary Dx); Whiplash injury, acute, subsequent encounter Start: 05-28-2024 End: 05-28-2024 Clinisync Result Encounter Generic External Data Provider [facility] External Department Unsolicited Start: 05-28-2024 End: 05-28-2024 Clinisync Result Encounter Generic External Data Provider [facility] External Department Unsolicited Start: 05-28-2024 End: 05-28-2024 ambulatory LETHA BEST Facility:[facility] Start: 05-24-2024 End: 05-24-2024 Office outpatient visit 25 minutes Letha Best MD Work Phone: [facility] Comment on above: Spasm of cervical pa raspinous muscle (Primary Dx) Start: 05-24-2024 End: 05-24-2024 ambulatory LETHA BEST Not Available Start: 05-24-2024 End: 05-24-2024 Clinisync Result Encounter Generic External Data Provider [facility] External Department Unsolicited Start: 05-24-2024 End: 05-24-2024 Clinisync Result Encounter Generic External Data Provider [facility] External Department Unsolicited Start: 05-24-2024 End: 05-24-2024 Office outpatient visit 40 minutes Vimal Crandall MD Work Phone: Hematology/Oncology Comment on above: Pancytopenia (HCC); 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HCC); Neutropenia associated with infection (HCC); Malnutrition of moderate degree (HCC); DM (diabetes mellitus), type 2 with complications (HCC); Moderate episode of recurrent major depressive disorder (HCC); Thrombocytopenia (HCC); Stage 3 chronic kidney disease, unspecified whether stage 3a or 3b CKD (HCC) Start: 05-24-2024 End: 05-24-2024 ambulatory VIMAL CRANDALL Facility:[facility] Start: 05-21-2024 End: 05-21-2024 Clinisync Result Encounter Generic External Data Provider [facility] External Department Unsolicited Start: 05-21-2024 End: 05-21-2024 Clinisync Result Encounter Generic External Data Provider [facility] External Department Unsolicited Start: 05-21-2024 End: 05-21-2024 ambulatory Lab[facility] Work Phone: Hematology/Oncology Comment on above: Neutropenia associat ed with infection (HCC) (Primary Dx); Multiple myeloma not having achieved remission (HCC) Start: 05-17-2024 End: 05-17-2024 Clinisync Result Encounter Generic External Data Provider [facility] External Department Unsolicited Start: 05-17-2024 End: 05-17-2024 Clinisync Result Encounter Generic External Data Provider [facility] External Department Unsolicited Start: 05-17-2024 End: 05-17-2024 ambulatory [facility] Work Phone: Hematology/Oncology Comment on above: Neutropenia associat ed with infection (HCC) (Primary Dx); Multiple myeloma not having achieved remission (HCC) Start: 05-10-2024 End: 05-10-2024 Clinisync Result Encounter Generic External Data Provider [facility] External Department Unsolicited Start: 05-10-2024 End: 05-10-2024 Clinisync Result Encounter Generic External Data Provider [facility] External Department Unsolicited Start: 05-10-2024 End: 05-10-[address] [facility] Facility:[facility] Start: 05-07-2024 End: 05-07-2024 Clinisync Result Encounter Generic External Data Provider [facility] External Department Unsolicited Start: 05-07-2024 End: 05-07-2024 Clinisync Result Encounter Generic External Data Provider [facility] External Department Unsolicited Start: 05-07-2024 End: 05-07-2024 ambulatory [facility] Work Phone: Hematology/Oncology Comment on above: Neutropenia associat ed with infection (HCC) (Primary Dx); Multiple myeloma not having achieved remission (HCC) Start: 05-03-2024 End: 05-03-2024 Clinisync Result Encounter Generic External Data Provider [facility] External Department Unsolicited Start: 05-03-2024 End: 05-03-2024 Clinisync Result Encounter Generic External Data Provider [facility] External Department Unsolicited Start: 05-03-2024 End: 05-03-2024 ambulatory [facility] Work Phone: Hematology/Oncology Comment on above: Neutropenia associat ed with infection (HCC) (Primary Dx); Multiple myeloma not having achieved remission (HCC) Start: 04-30-2024 End: 04-30-2024 Clinisync Result Encounter Generic External Data Provider [facility] External Department Unsolicited Start: 04-30-2024 End: 04-30-2024 Clinisync Result Encounter Generic External Data Provider [facility] External Department Unsolicited Start: 04-30-2024 End: 04-30-[address] [facility] Facility:[facility] Start: 04-26-2024 End: 04-26-2024 Bamboo flowsheet Letha Best MD Work Phone: [facility] Start: 04-26-2024 End: 04-26-2024 Bamboo flowsheet Letha Best MD Work Phone: [facility] Start: 04-26-2024 End: 04-26-2024 Refill Sana Key DO Work Phone: [facility] Comment on above: Type 2 diabetes marika itus with hyperglycemia (CMS/HCC) Start: 04-26-2024 End: 04-26-2024 Transitional care manage srvc 7 day discharge Letha Best MD Work Phone: [facility] Comment on above: Diverticulitis (Prim mynor Dx); Multiple myeloma, remission status unspecified (CMS/HCC) Start: 04-26-2024 End: 04-26-2024 ambulatory LETHA BEST Not Available Start: 04-25-2024 End: 04-25-2024 Telephone encounter Arcelia Thomas RN Work Phone: Hematology/Oncology Comment on above: Care Coordination (D ischarge Follow Up) Start: 04-25-2024 End: 04-25-2024 ambulatory VIMAL CRANDALL Facility:[facility] Start: 04-25-2024 End: 04-25-2024 Office outpatient visit 40 minutes Vimal Crandall MD Work Phone: Hematology/Oncology Comment on above: Multiple myeloma not having achieved remission (HCC) (Primary Dx); Neutropenia associated with infection (HCC); Hepatocellular carcinoma (HCC); 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HCC); Stage 3 chronic kidney disease, unspecified whether stage 3a or 3b CKD (HCC); DM (diabetes mellitus), type 2 with complications (HCC) Start: 04-20-2024 End: 04-25-2024 Clinisync Result Encounter Generic External Data Provider [facility] External Department Unsolicited Start: 04-20-2024 End: 04-25-2024 Clinisync Result Encounter Generic External Data Provider [facility] External Department Unsolicited Start: 04-19-2024 End: 04-24-2024 Evaluation and management of [facility] Start: 04-17-2024 End: 04-20-2024 Clinisync Result Encounter Generic External Data Provider [facility] External Department Unsolicited Start: 04-17-2024 End: 04-20-2024 Clinisync Result Encounter Generic External Data Provider [facility] External Department Unsolicited Start: 04-17-2024 End: 04-24-2024 Telephone encounter Benedict Aj MD Work Phone: [facility] Provider Adult Comment on above: Care Coordination (F ever; Chills; ER) Start: 04-16-2024 End: 04-16-2024 Clinisync Result Encounter Generic External Data Provider [facility] External Department Unsolicited Start: 04-16-2024 End: 04-16-2024 Clinisync Result Encounter Generic External Data Provider [facility] External Department Unsolicited Start: 04-16-2024 End: 04-16-2024 Office outpatient visit 25 minutes Vimal Crandall MD Work Phone: Hematology/Oncology Comment on above: Multiple myeloma not having achieved remission (HCC) (Primary Dx); Neutropenia associated with infection (HCC); Thrombocytopenia (HCC); Hepatocellular carcinoma (HCC) Start: 04-16-2024 End: 04-16-2024 ambulatory VIMAL CRANDALL Facility:[facility] Start: 04-09-2024 End: 04-09-2024 Clinisync Result Encounter Generic External Data Provider [facility] External Department Unsolicited Start: 04-09-2024 End: 04-09-2024 Clinisync Result Encounter Generic External Data Provider [facility] External Department Unsolicited Start: 04-09-2024 End: 04-09-2024 Office outpatient visit 25 minutes Lorena Blackwell PA-C Work Phone: Hematology/Oncology Comment on above: Multiple myeloma not having achieved remission (HCC) (Primary Dx); Neutropenia associated with infection (HCC) Start: 04-09-2024 End: 04-09-2024 ambulatory LETHA BEST Facility:[facility] Start: 04-04-2024 End: 04-04-2024 Telephone encounter Christy Lott [facility] Comment on above: Results Start: 04-02-2024 End: 04-02-2024 Clinisync Result Encounter Generic External Data Provider [facility] External Department Unsolicited Start: 04-02-2024 End: 04-02-2024 Clinisync Result Encounter Generic External Data Provider [facility] External Department Unsolicited Start: 04-02-2024 End: 04-02-2024 Telephone encounter Arcelia Thomas RN Work Phone: Hematology/Oncology Comment on above: Care Coordination (E R Update) Care Coordination (E mergency Room Call Back) Start: 04-02-2024 End: 04-02-2024 Emergency department patient visit LETHA Ronny BEST Facility:[facility] Start: 04-02-2024 End: 04-02-2024 Patient encounter procedure Soha Nunn INSURANCE SALESMAN.HIM MANAGER Work Phone: Hematology/Oncology Start: 04-02-2024 End: 04-02-2024 ambulatory Soha Nunn INSURANCE SALESMAN.HIM MANAGER Work Phone: Hematology/Oncology Comment on above: Multiple myeloma not having achieved remission (HCC) (Primary Dx) Start: 03-29-2024 End: 03-29-2024 ambulatory [facility] Work Phone: Hematology/Oncology Comment on above: Neutropenia associat ed with infection (HCC) (Primary Dx); Multiple myeloma not having achieved remission (HCC) Start: 03-28-2024 End: 03-28-2024 ambulatory [facility] Work Phone: Hematology/Oncology Comment on above: Neutropenia associat ed with infection (HCC) (Primary Dx); Multiple myeloma not having achieved remission (HCC) Start: 03-27-2024 End: 03-27-2024 Patient encounter procedure [facility] Provider [facility] Department Start: 03-27-2024 End: 03-27-2024 Ramses Monaco RN Hematology/Oncology Comment on above: Neutropenia associat ed with infection (HCC) (Primary Dx); Multiple myeloma not having achieved remission (HCC) Start: 03-26-2024 End: 03-26-2024 Clinisync Result Encounter Generic External Data Provider [facility] External Department Unsolicited Start: 03-26-2024 End: 03-26-2024 Clinisync Result Encounter Generic External Data Provider [facility] External Department Unsolicited Start: 03-26-2024 End: 03-26-2024 Patient encounter procedure [facility] Provider [facility] Department Start: 03-26-2024 End: 03-26-2024 ambulatory [facility] Work Phone: Hematology/Oncology Comment on above: Neutropenia associat ed with infection (HCC) (Primary Dx); Multiple myeloma not having achieved remission (HCC) Multiple myeloma not having achieved remission (HCC) (Primary Dx) Start: 03-19-2024 End: 03-19-2024 Clinisync Result Encounter Generic External Data Provider [facility] External Department Unsolicited Start: 03-19-2024 End: 03-19-2024 Clinisync Result Encounter Generic External Data Provider [facility] External Department Unsolicited Start: 03-19-2024 End: 03-19-2024 Office outpatient visit 25 minutes Lorena Blackwell PA-C Work Phone: Hematology/Oncology Comment on above: Multiple myeloma not having achieved remission (HCC) (Primary Dx); Hepatocellular carcinoma (HCC); Thrombocytopenia (HCC) Start: 03-19-2024 End: 03-19-2024 ambulatory LORENA BLACKWELL Facility:[facility] Start: 03-15-2024 End: 03-15-2024 ambulatory [facility] Work Phone: Hematology/Oncology Comment on above: Neutropenia associat ed with infection (HCC) (Primary Dx); Multiple myeloma not having achieved remission (HCC) Start: 03-14-2024 End: 03-14-2024 Ramses Best MD Work Phone: [facility] Comment on above: Restless legs syndro me Start: 03-14-2024 End: 03-14-2024 Telephone encounter Letha Solomon RN Hematology/Oncology Comment on above: Pain Start: 03-14-2024 End: 03-14-2024 ambulatory [facility] Work Phone: Hematology/Oncology Comment on above: Neutropenia associat ed with infection (HCC) (Primary Dx); Multiple myeloma not having achieved remission (HCC) Start: 03-13-2024 End: 03-13-2024 Bamboo flowsheet Taya Alexander NP Work Phone: [facility] Start: 03-13-2024 End: 03-13-2024 Bamboo flowsheet Taya Alexander SEWING MACHINE OPERATOR [employer] Work Phone: [facility] Start: 03-13-2024 End: 03-13-2024 ambulatory [facility] Work Phone: Hematology/Oncology Comment on above: Neutropenia associat ed with infection (HCC) (Primary Dx); Multiple myeloma not having achieved remission (HCC) Start: 03-13-2024 End: 03-13-2024 Postop follow up visit related to original px Taya Alexander SEWING MACHINE OPERATOR [employer] Work Phone: [facility] Comment on above: Status post arthrosc opy of left knee (Primary Dx) Start: 03-13-2024 End: 03-13-2024 ambulatory TAYA ALEXANDER Not Available Start: 03-12-2024 End: 03-12-2024 Office outpatient visit 25 minutes Vimal Crandall MD Work Phone: Hematology/Oncology Comment on above: Multiple myeloma not having achieved remission (HCC) (Primary Dx); Neutropenia associated with infection (HCC); Hepatocellular carcinoma (HCC); 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HCC); Stage 3 chronic kidney disease, unspecified whether stage 3a or 3b CKD (HCC) Start: 03-12-2024 End: 03-12-2024 ambulatory Lab/[place] Work Phone: Hematology/Oncology Comment on above: Neutropenia associat ed with infection (HCC) (Primary Dx); Multiple myeloma not having achieved remission (HCC) Start: 03-12-2024 End: 03-12-2024 Clinisync Result Encounter Generic External Data Provider [facility] External Department Unsolicited Start: 03-12-2024 End: 03-12-2024 Clinisync Result Encounter Generic External Data Provider [facility] External Department Unsolicited Start: 03-06-2024 End: 03-06-2024 Patient encounter procedure Kelsi Stevens MD Work Phone: Urology Comment on above: Renal lesion (Primar y Dx); BPH with obstruction/lower urinary tract symptoms Start: 03-06-2024 End: 03-09-2024 ambulatory Kelsi Stevens MD Work Phone: Urology Start: 02-20-2024 End: 02-20-2024 Office outpatient visit 25 minutes Vimal Crandall MD Work Phone: Hematology/Oncology Comment on above: Multiple myeloma not having achieved remission (HCC) (Primary Dx); 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HCC); Stage 3 chronic kidney disease, unspecified whether stage 3a or 3b CKD (HCC); Hepatocellular carcinoma (HCC) Start: 02-20-2024 End: 02-20-2024 ambulatory LETHA BEST Facility:[facility] Start: 02-20-2024 End: 02-20-2024 Clinisync Result Encounter Generic External Data Provider [facility] External Department Unsolicited Start: 02-20-2024 End: 02-20-2024 Clinisync Result Encounter Generic External Data Provider [facility] External Department Unsolicited Start: 02-14-2024 End: 02-14-2024 Bamboo flowsheet Taya Alexander SEWING MACHINE OPERATOR [employer] Work Phone: [facility] Start: 02-14-2024 End: 02-14-2024 Bamboo flowsheet Taya Alexander SEWING MACHINE OPERATOR [employer] Work Phone: [facility] Start: 02-14-2024 End: 02-14-2024 Postop follow up visit related to original px Taya Alexander SEWING MACHINE OPERATOR [employer] Work Phone: [facility] Comment on above: Status post arthrosc opy of left knee (Primary Dx) Start: 02-14-2024 End: 02-14-2024 ambulatory TAYA ALEXANDER Not Available Start: 02-06-2024 End: 02-06-2024 Patient encounter procedure [facility] Provider [facility] Department Start: 02-06-2024 End: 02-06-2024 ambulatory Orlin Lorenzana Facility:[facility] Start: 02-03-2024 End: 02-03-2024 Clinisync Result Encounter Generic External Data Provider [facility] External Department Unsolicited Start: 02-03-2024 End: 02-03-2024 Clinisync Result Encounter Generic External Data Provider [facility] External Department Unsolicited Start: 02-03-2024 End: 02-03-2024 Office outpatient visit 25 minutes Vimal Crandall MD Work Phone: Hematology/Oncology Comment on above: Multiple myeloma not having achieved remission (HCC) (Primary Dx); Hepatocellular carcinoma (HCC); 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HCC) Start: 02-03-2024 End: 02-04-2024 Refill Taya Alexander SEWING MACHINE OPERATOR [employer]S Work Phone: [facility] Comment on above: Post-op pain (Primar y Dx) Start: 02-02-2024 End: 02-02-2024 Bamboo flowsheet Miguel Angel Lora MD Work Phone: [facility] Start: 02-02-2024 End: 02-02-2024 Bamboo flowsheet Miguel Angel Lora MD Work Phone: [facility] Start: 02-02-2024 End: 02-02-2024 Office outpatient visit 25 minutes Miguel Angel Lora MD Work Phone: [facility] Comment on above: Insulin long-term us e (CMS/[facility]) (Primary Dx); Type 2 diabetes mellitus with hyperglycemia, with long-term current use of insulin ([facility]); Hyperlipemia, mixed (CMS/[facility]); Vitamin D deficiency; Encounter for dietary consultation; Class 2 obesity due to excess calories without serious comorbidity with body mass index (BMI) of 35.0 to 35.9 in adult; Type 2 diabetes mellitus with hyperglycemia, with long-term current use of insulin ([facility]) Start: 02-02-2024 End: 02-02-2024 ambulatory MIGUEL ANGEL LORA Not Available Start: 02-01-2024 End: 02-07-2024 Telephone encounter Arcelia Thomas RN Work Phone: Hematology/Oncology Comment on above: Care Coordination (S urgical Clearance) Start: 01-27-2024 End: 04-25-2024 Telephone encounter Zaida DICKINSON [facility] Start: 01-26-2024 End: 01-26-2024 Clinisync Result Encounter Generic External Data Provider [facility] External Department Unsolicited Start: 01-26-2024 End: 01-26-2024 Clinisync Result Encounter Generic External Data Provider [facility] External Department Unsolicited Start: 01-26-2024 End: 01-30-2024 Telephone encounter Letha Solomon RN Hematology/Oncology Comment on above: Patient Question Start: 01-26-2024 End: 01-27-2024 ambulatory Lab[facility] Work Phone: Hematology/Oncology Comment on above: Multiple myeloma not having achieved remission (HCC) (Primary Dx) Start: 01-24-2024 End: 01-24-2024 Preoperative state Letha Best MD Work Phone: [facility] Start: 01-24-2024 End: 01-24-2024 Preprocedural examination done Letha Best MD Work Phone: [facility] Start: 01-24-2024 End: 01-24-2024 ambulatory LETHA BEST Not Available Start: 01-24-2024 End: 01-24-2024 Bamboo flowsheet Orlin Lorenzana DO Work Phone: [facility] Start: 01-24-2024 End: 01-24-2024 Bamboo flowsheet Orlin Lorenzana DO Work Phone: [facility] Start: 01-24-2024 End: 01-24-2024 Office outpatient visit 25 minutes Orlin Lorenzana DO Work Phone: [facility] Comment on above: Left knee pain, unsp ecified chronicity (Primary Dx); Complex tear of medial meniscus of left knee as current injury, initial encounter; Complex tear of lateral meniscus of left knee as current injury, initial encounter; Primary osteoarthritis of left knee Preoperative clearan ce (Primary Dx); Encounter for pre-operative examination; Hepatocellular carcinoma (CMS/HCC); Multiple myeloma not having achieved remission (CMS/HCC); Encounter for immunization; Primary hypertension (CMS/HCC); Bone marrow transplant status (CMS/HCC); Diabetic nephropathy associated with type 2 diabetes mellitus (HCC) (CMS/HCC); Morbid (severe) obesity due to excess calories (CMS/HCC); Polyneuropathy in diseases classified elsewhere (CMS/HCC); Immunodeficiency, unspecified ([facility]/HCC); Body mass index (BMI) 35.0-35.9, adult; Major depressive disorder, recurrent, in remission, unspecified (HCC) (CMS/HCC); Chronic kidney disease, stage 2 (mild); 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 ([facility]) Start: 01-24-2024 End: 01-24-2024 ambulatory ORLIN LORENZANA Not Available Start: 01-20-2024 End: 01-20-2024 Clinisync Result Encounter Generic External Data Provider [facility] External Department Unsolicited Start: 01-20-2024 End: 01-20-2024 Clinisync Result Encounter Generic External Data Provider [facility] External Department Unsolicited Start: 01-20-2024 End: 01-20-2024 Office outpatient visit 25 minutes Vimal Crandall MD Work Phone: Hematology/Oncology Comment on above: Multiple myeloma not having achieved remission (HCC) (Primary Dx) Start: 01-20-2024 End: 01-20-2024 ambulatory LETHA BEST Facility:[facility] Start: 01-18-2024 End: 01-18-2024 Orders Only Letha Best MD Work Phone: [facility] Comment on above: Chronic frontal sinu sitis Start: 01-13-2024 End: 01-13-2024 ambulatory ORLIN LORENZANA Not Available Start: 01-12-2024 End: 01-13-2024 ambulatory Chair Gus Tanesha Work Phone: Hematology/Oncology Comment on above: Multiple myeloma not having achieved remission (HCC) (Primary Dx) Start: 01-12-2024 End: 01-12-2024 Clinisync Result Encounter Generic External Data Provider [facility] External Department Unsolicited Start: 01-12-2024 End: 01-12-2024 Clinisync Result Encounter Generic External Data Provider [facility] External Department Unsolicited Start: 01-10-2024 End: 01-10-2024 Clinisync Result Encounter Generic External Data Provider [facility] External Department Unsolicited Start: 01-10-2024 End: 01-10-2024 Clinisync Result Encounter Generic External Data Provider [facility] External Department Unsolicited Start: 01-10-2024 End: 01-10-2024 Telephone encounter Arcelia Thomas RN Work Phone: Hematology/Oncology Comment on above: Care Coordination (O ral Anti-Cancer Agent Follow Up) Start: 01-10-2024 End: 01-11-2024 ambulatory Chair [address] [place] Work Phone: Hematology/Oncology Comment on above: Multiple myeloma not having achieved remission (HCC) (Primary Dx) Multiple myeloma not having achieved remission (HCC) (Primary Dx); Hepatocellular carcinoma (HCC) Start: 01-10-2024 End: 01-11-2024 Telemedicine consultation with patient Vimal Crandall MD Work Phone: Hematology/Oncology Start: 01-05-2024 End: 01-05-2024 ambulatory Chair [address] [place] Work Phone: Hematology/Oncology Comment on above: Multiple myeloma not having achieved remission (HCC) (Primary Dx) Start: 01-05-2024 End: 01-05-2024 Clinisync Result Encounter Generic External Data Provider [facility] External Department Unsolicited Start: 01-05-2024 End: 01-05-2024 Clinisync Result Encounter Generic External Data Provider [facility] External Department Unsolicited Start: 01-04-2024 End: 01-04-2024 Telephone encounter Arcelia Thomas RN Work Phone: Hematology/Oncology Comment on above: Care Coordination (M RI Results) Start: 01-03-2024 End: 01-03-2024 Bamboo flowsheet Orlin Lorenzana DO Work Phone: [facility] Start: 01-03-2024 End: 01-03-2024 Clinisync Result Encounter Generic External Data Provider [facility] External Department Unsolicited Start: 01-03-2024 End: 01-03-2024 Clinisync Result Encounter Generic External Data Provider [facility] External Department Unsolicited Start: 01-03-2024 End: 01-10-2024 Telephone encounter Arcelia Thomas RN Work Phone: Hematology/Oncology Comment on above: Care Coordination (V enclexta Start Date) Care Coordination (I VF & Labs) Start: 01-03-2024 End: 01-03-2024 Office outpatient visit 10 minutes Orlin Lorenzana DO Work Phone: [facility] Comment on above: Left knee pain, unsp ecified chronicity (Primary Dx); Primary osteoarthritis of left knee; Internal derangement of left knee Start: 01-03-2024 End: 01-04-2024 ambulatory Arcelia Thomas RN Work Phone: Hematology/Oncology Comment on above: Oral Anti-cancer Age nt Education (Venclexta) Multiple myeloma not having achieved remission (HCC) (Primary Dx) Start: 01-02-2024 End: 01-02-2024 ambulatory LETHA BEST Facility:[facility] Start: 01-02-2024 End: 01-02-2024 Subsequent hospital visit by physician [facility] (I-Stat/1.5t) Work Phone: Radiology Comment on above: Hepatocellular carci noma (HCC) [C22.0] Start: 01-01-2024 End: 01-02-2024 Refill Vimal Crandall MD Work Phone: Hematology/Oncology Comment on above: Refill Request Start: 12-22-2023 Refill Gela Liu MD Work Phone: Hematology/Oncology Comment on above: Refill Request Start: 12-19-2023 Social Work Keisha Condon [facility] Hematolo gy/Oncology Start: 12-16-2023 End: 12-30-2023 Telephone encounter Sulema Koroma [facility] Work Phone: Hematology/Oncology Comment on above: Medication Authoriza tion (Venetoclax Appeal faxed) Start: 12-13-2023 Telephone encounter Maegan can [facility] Work Phone: [facility] Comment on above: Medication Authoriza tion ( [id number]) Start: 12-09-2023 End: 12-09-2023 Office outpatient visit 40 minutes Vimal Crandall MD Work Phone: Hematology/Oncology Comment on above: Multiple myeloma not having achieved remission (HCC) (Primary Dx); Hepatocellular carcinoma (HCC); Claustrophobia Start: 12-09-2023 End: 12-09-2023 ambulatory VIMAL RAZ Facility:[facility] Start: 11-17-2023 Refill Gela Liu MD Work Phone: Hematology/Oncology Comment on above: Refill Request Start: 10-14-2023 End: 10-14-2023 ambulatory LETHA BEST Not Available Start: 10-14-2023 End: 10-14-2023 Office outpatient visit 25 minutes Vimal Crandall MD Work Phone: Hematology/Oncology Comment on above: Diarrhea, unspecifie d type; Multiple myeloma not having achieved remission (HCC); 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HCC); Renal insufficiency Start: 10-14-2023 End: 10-14-2023 ambulatory VIMAL CRANDALL Facility:[facility] Start: 10-06-2023 Refill Vimal guzman MD Work Phone: Hematology/Oncology Comment on above: Refill Request Start: 10-06-2023 End: 10-06-2023 ambulatory LETHA BEST Facility:[facility] Start: 09-30-2023 End: 09-30-2023 ambulatory LETHA BEST Not Available Start: 09-29-2023 Telephone encounter Ignacia jordan RN [facility] INTERVENTION[facility] RADIOLOGY Start: 09-25-2023 Refill Vimal guzman MD Work Phone: Hematology/Oncology Comment on above: Refill Request Start: 09-20-2023 Telephone encounter Arcelia white RN Work Phone: Hematology/Oncology Comment on above: Care Coordination (M RI Results) Start: 09-19-2023 ambulatory VIMAL RAZ Facilit y:[facility] Start: 09-19-2023 End: 09-19-2023 Subsequent hospital visit by physician [facility] (Istat/3t) Work Phone: [facility] Radiology MRI Start: 09-16-2023 End: 09-16-2023 ambulatory WILBER ARANGO Not Available Start: 09-15-2023 End: 09-15-2023 Office outpatient visit 40 minutes Vimal Crandall MD Work Phone: Hematology/Oncology Comment on above: Multiple myeloma not having achieved remission (HCC) (Primary Dx); Hepatocellular carcinoma (HCC) Start: 09-15-2023 End: 09-15-2023 ambulatory VIMAL CRANDALL Facility:[facility] Start: 09-15-2023 Telephone encounter Vimal chavez MD Work Phone: [facility] Comment on above: MRI Pre meds Future Appointment Start: 09-13-2023 Refill Vimal guzman MD Work Phone: [facility] Comment on above: Refill Request Start: 08-30-2023 End: 08-30-2023 ambulatory WILBER ARANGO Not Available Start: 08-24-2023 End: 08-24-2023 ambulatory JORGE B APLING Not Available Start: 08-18-2023 End: 08-18-2023 Office outpatient visit 25 minutes Vimal Crandall MD Work Phone: Hematology/Oncology Comment on above: Multiple myeloma not having achieved remission (HCC) (Primary Dx); 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HCC); DM (diabetes mellitus), type 2 with complications (HCC); Hepatocellular carcinoma (HCC); Stage 3 chronic kidney disease, unspecified whether stage 3a or 3b CKD (HCC) Start: 08-18-2023 End: 08-18-2023 ambulatory VIMAL CRANDALL Facility:[facility] Start: 07-27-2023 End: 07-27-2023 ambulatory JORGE B APLING Not Available Start: 07-18-2023 End: 07-18-2023 ambulatory Orlin Eason Salomón Facility:[facility] Start: 07-13-2023 End: 07-13-2023 Office outpatient visit 25 minutes Vimal Crandall MD Work Phone: Hematology/Oncology Comment on above: Multiple myeloma not having achieved remission (HCC) (Primary Dx); 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HCC); DM (diabetes mellitus), type 2 with complications (HCC); Hepatocellular carcinoma (HCC); Moderate episode of recurrent major depressive disorder (HCC) Start: 07-08-2023 Refill Vimal guzman MD Work Phone: Hematology/Oncology Comment on above: Refill Request Start: 06-29-2023 End: 06-29-2023 ambulatory Orlin Lorenzana Facility:[facility] Start: 06-23-2023 Bamboo flowsheet Orlin suarez DO Work Phone: [facility] Start: 06-23-2023 MasteryConnectheet Orlin suarez DO Work Phone: [facility] Start: 06-23-2023 End: 06-23-2023 Office outpatient new 45 minutes Orlin Lorenzana DO Work Phone: [facility] Comment on above: Left hand pain (Prim mynor Dx); Trigger finger, left middle finger; Trigger finger, left ring finger; Trigger finger, left little finger Start: 06-16-2023 Telephone encounter Arin Ramirez [facility] Work Phone: Hematology/Oncology Comment on above: Medication Update (B MS REMS survey number) Start: 06-15-2023 End: 06-15-2023 Office outpatient visit 25 minutes Vimal Crandall MD Work Phone: Hematology/Oncology Comment on above: Multiple myeloma not having achieved remission (HCC) (Primary Dx); 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HCC); DM (diabetes mellitus), type 2 with complications (HCC); Hepatocellular carcinoma (HCC) Start: 04-15-2023 Telephone encounter Vimal chavez MD Work Phone: Hematology/Oncology Comment on above: Lab Orders Start: 04-05-2023 End: 04-05-2023 ambulatory KELSI STEVENS Facility:[facility] Start: 03-23-2023 Telephone encounter Vimal chavez MD Work Phone: [facility] Comment on above: Results Start: 03-23-2023 End: 03-23-2023 Office outpatient visit 40 minutes Vimal Carndall MD Work Phone: Hematology/Oncology Comment on above: Multiple myeloma not having achieved remission (HCC) (Primary Dx); Claustrophobia; Pancytopenia (HCC); Hepatocellular carcinoma (HCC); Stage 3 chronic kidney disease, unspecified whether stage 3a or 3b CKD (HCC); 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HCC); Platelets decreased (HCC); Type 2 diabetes (HCC); Recurrent major depression in remission (HCC) Start: 03-16-2023 Refill Vimal guzman MD Work Phone: Hematology/Oncology Comment on above: Refill Request Start: 03-10-2023 End: 03-10-2023 Subsequent hospital visit by physician [facility] 3 Work Phone: [facility] Radiology Ultrasound Comment on above: Renal lesion [N28.9] Start: 02-25-2023 Orders Only Gloria Lopez APRN.HIM MANAGER Work Phone: Urology Comment on above: Renal lesion (Primar y Dx) Start: 02-23-2023 End: 02-23-2023 ambulatory Lab/[place] Tanesha Work Phone: Hematology/Oncology Comment on above: Multiple myeloma not having achieved remission (HCC) (Primary Dx) Start: 02-21-2023 End: 02-21-2023 Follow-up encounter Alejandra Maddox APRN.HIM MANAGER Work Phone: Endocrinology BMI Comment on above: Follow-up examinatio n after gastrointestinal surgery (Primary Dx); Hepatocellular carcinoma (HCC); Renal cyst, right; Multiple myeloma not having achieved remission (HCC) Start: 02-21-2023 End: 02-21-2023 Telemedicine consultation with patient Alejandra Maddox TUTU.HIM MANAGER Work Phone: [facility] Start: 02-16-2023 End: 02-16-2023 Office outpatient visit 25 minutes Vimal Crandall MD Work Phone: Hematology/Oncology Comment on above: Multiple myeloma not having achieved remission (HCC) (Primary Dx) Start: 02-15-2023 Refill Vimal guzman MD Work Phone: Hematology/Oncology Comment on above: Refill Request Start: 02-10-2023 End: 02-10-2023 Subsequent hospital visit by physician Arrival Time Radiology Work Phone: Radiology [facility] Comment on above: Hepatocellular carci noma (HCC) [C22.0] Start: 01-21-2023 Telephone encounter Vimal chavez MD Work Phone: [facility] Comment on above: Insurance Authorizat ion ([employer]) Start: 01-19-2023 Orders Only Miguel Angel vinson MD Work Phone: Hematology/Oncology Comment on above: Poorly controlled di abetes mellitus (HCC) (Primary Dx); Dietary counseling and surveillance; Encounter for long-term (current) insulin use (HCC); Vitamin D deficiency Start: 01-19-2023 End: 01-19-2023 Office outpatient visit 25 minutes Vimal Crandall MD Work Phone: Hematology/Oncology Comment on above: Multiple myeloma not having achieved remission (HCC) (Primary Dx); Hepatocellular carcinoma (HCC); Stage 3 chronic kidney disease, unspecified whether stage 3a or 3b CKD (HCC); Platelets decreased (HCC); 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HCC) Start: 01-17-2023 Refill Vimal guzman MD Work Phone: Hematology/Oncology Comment on above: Refill Request Start: 01-13-2023 Telephone encounter Denis tillman MD Work Phone: General Surgery Comment on above: MRI Appointment (Mahsa ds to rescheudle not enough sedation given ) Start: 01-13-2023 ambulatory DENIS ALMANZA Facility: [facility] Start: 01-13-2023 End: 01-13-2023 Subsequent hospital visit by physician [facility] 2 (I-Stat/3t) Work Phone: Radiology Comment on above: Hepatocellular carci noma (HCC) [C22.0] Arrived Start: 12-22-2022 End: 12-22-2022 Office outpatient visit 25 minutes Vimal Crandall MD Work Phone: Hematology/Oncology Comment on above: Multiple myeloma not having achieved remission (HCC) (Primary Dx); Hepatocellular carcinoma (HCC); Stage 3 chronic kidney disease, unspecified whether stage 3a or 3b CKD (HCC); Platelets decreased (HCC); 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HCC) Start: 11-24-2022 End: 11-24-2022 Office outpatient visit 40 minutes Vimal Crandall MD Work Phone: Hematology/Oncology Comment on above: Multiple myeloma not having achieved remission (HCC) (Primary Dx); Stage 3 chronic kidney disease, unspecified whether stage 3a or 3b CKD (HCC); Hepatocellular carcinoma (HCC); Platelets decreased (HCC); Type 2 diabetes (HCC); 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HCC) Start: 11-11-2022 End: 11-11-2022 Patient encounter procedure Denis Almanza MD Work Phone: General Surgery Comment on above: Hepatocellular carci noma (HCC) (Primary Dx) Start: 10-31-2022 End: 10-31-2022 ambulatory Gem Phillips Other [place] Other Start: 10-31-2022 Office outpatient vi sit 15 minutes Gem Phillips [facility] Start: 10-21-2022 End: 10-21-2022 Patient encounter procedure Denis Almanza MD Work Phone: General Surgery Comment on above: Hepatocellular carci noma (HCC); Acute post-operative pain Start: 10-20-2022 End: 10-20-2022 Office outpatient visit 25 minutes Vimal Crandall MD Work Phone: Hematology/Oncology Comment on above: Multiple myeloma not having achieved remission (HCC) (Primary Dx); Hepatocellular carcinoma (HCC); Platelets decreased (HCC) Start: 10-07-2022 Telephone encounter Dionte Ronquillo MD Work Phone: [facility] [place] Comment on above: Research Start: 10-01-2022 ambulatory LAEJANDRA MADDOX Facilit y:[facility] Start: 09-20-2022 Telephone encounter Denis tillman MD Work Phone: General Surgery Comment on above: Schedule Surgery; Re sults, Lab Start: 09-17-2022 End: 09-17-2022 Patient encounter procedure Denis Almanza MD Work Phone: Endocrinology BMI Comment on above: Hepatocellular carci noma (HCC) (Primary Dx); Other abnormal tumor markers Start: 09-01-2022 End: 09-01-2022 Office outpatient visit 40 minutes Vimal Crandall MD Work Phone: Hematology/Oncology Comment on above: Hepatocellular carci noma (HCC) (Primary Dx); Multiple myeloma not having achieved remission (HCC); Type 2 diabetes (HCC); Platelets decreased (HCC); Recurrent major depression in remission (HCC); Malnutrition of moderate degree (HCC) Start: 09-01-2022 Telephone encounter Vmial chavez MD Work Phone: [facility] Comment on above: Future Appointment Start: 08-24-2022 End: 08-24-2022 ambulatory [facility] Facility:[facility] Start: 08-13-2022 Telephone encounter Gela Marion RN [facility] INTERVENTIONAL RADIOLOGY Comment on above: Radiology Pre Proced ure Instructions Start: 08-09-2022 Telephone encounter Audelia Thomas F [facility] INTERVENTIONAL RADIOLOGY Comment on above: Liver BX Start: 08-06-2022 Telephone encounter Soha roland APRN.HIM MANAGER Work Phone: Hematology/Oncology Comment on above: Entry Level Project Coordinator - O ther (Biopsy) Start: 08-04-2022 End: 08-04-2022 ambulatory Soha Nunn APRN.HIM MANAGER Work Phone: Hematology/Oncology Comment on above: Multiple myeloma not having achieved remission (HCC) (Primary Dx); Immunodeficiency (HCC); Type 2 diabetes (HCC); 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HCC); Thrombocytopenia, secondary; Essential hypertension Start: 08-04-2022 End: 08-04-2022 Patient encounter procedure Soha Nunn APRN.CNP Work Phone: [facility] Start: 08-03-2022 End: 08-03-[address] GÓMEZ LOMELI Facility: Start: 07-08-2022 End: 07-08-2022 ambulatory Fito Michael Other [place] Other Start: 07-08-2022 Office outpatient vi sit 25 minutes Fito Michael [facility] Start: 07-07-2022 End: 07-07-2022 Office outpatient visit 25 minutes Vimal Crandall MD Work Phone: Hematology/Oncology Comment on above: Multiple myeloma not having achieved remission (HCC) (Primary Dx); Diabetes mellitus due to underlying condition with hyperglycemia, with long-term current use of insulin (HCC); Renal insufficiency; Community acquired MRSA infection Start: 07-07-2022 End: 07-07-[address] Work Phone: [facility] Start: 07-07-2022 End: 07-07-2022 Nutrition therapy Esmer Winston RD Work Phone: Nutrition Therapy Comment on above: Nutrition Counseling Start: 06-30-2022 End: 06-30-2022 ambulatory Fito Michael Other [place] Other Start: 06-30-2022 Office outpatient vi sit 25 minutes Fito Michael [facility] Start: 06-28-2022 End: 06-28-2022 ambulatory Sana A Naida Facility:[facility] Start: 06-28-2022 End: 06-28-2022 ambulatory SEWING MACHINE OPERATOR PAPER BAGS-C Sana Naida Work Phone: [facility] Work Phone: Start: 06-28-2022 End: 06-28-2022 Departed Referred SEWING MACHINE OPERATOR PAPER BAGS-C Sana Naida Work Phone: [facility] [place] Work Phone: Start: 06-22-2022 Refill Arin GudinoErika urias [facility] Work Phone: [facility] Comment on above: Refill Request Start: 06-10-2022 End: 06-10-[address] Work Phone: [facility] Start: 06-10-2022 End: 06-10-2022 Nutrition therapy Esmer Winston RD Work Phone: Nutrition Therapy Comment on above: Nutrition Telephone Start: 06-09-2022 End: 06-09-2022 Nursing evaluation of patient and report Ma Nurse Reddy Pratt Work Phone: Hematology/Oncology Comment on above: Renal insufficiency (Primary Dx) Start: 06-09-2022 Telephone encounter Mana Randle RN Hematology/Oncology Comment on above: Critical Results Future Appointment Start: 06-09-2022 End: 06-09-2022 Office outpatient visit 40 minutes Vimal Crandall MD Work Phone: Hematology/Oncology Comment on above: Multiple myeloma not having achieved remission (HCC) (Primary Dx); Immunodeficiency (HCC); Type 2 diabetes (HCC); Renal insufficiency; Thrombocytopenia, secondary Start: 05-20-2022 Telephone encounter Arin Ramirez [facility] Work Phone: Hematology/Oncology Comment on above: Medication Update Start: 05-12-2022 End: 05-12-2022 ambulatory Soha Nunn APRN.HIM MANAGER Work Phone: Hematology/Oncology Comment on above: Multiple myeloma not having achieved remission (HCC) (Primary Dx); 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HCC); Immunodeficiency (HCC); Type 2 diabetes (HCC); Renal insufficiency; Essential hypertension; Pancytopenia (HCC) Start: 05-12-2022 End: 05-12-2022 Patient encounter procedure Soha Nunn APRN.HIM MANAGER Work Phone: [facility] Start: 04-14-2022 End: 04-14-2022 ambulatory Vimal Crandall MD Work Phone: Hematology/Oncology Comment on above: 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HCC) (Primary Dx); Multiple myeloma not having achieved remission (HCC); Immunodeficiency (HCC); Type 2 diabetes (HCC); Renal insufficiency; Autologous bone marrow transplantation status (HCC) Start: 04-14-2022 End: 04-14-2022 Patient encounter procedure Vimal Crandall MD Work Phone: [facility] Start: 04-06-2022 End: 04-06-2022 ambulatory Sana A Naida Facility:[facility] Start: 04-06-2022 End: 04-06-2022 ambulatory SEWING MACHINE OPERATOR PAPER BAGS-C Sana Naida Work Phone: [facility] Work Phone: Start: 04-06-2022 End: 04-06-2022 Departed Referred SEWING MACHINE OPERATOR PAPER BAGS-C Sana Naida Work Phone: [facility] [place] Start: 03-19-2022 Orders Only Arin [facility]cc[facility] Work Phone: Hematology/Oncology Comment on above: 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HCC); Multiple myeloma not having achieved remission (HCC); Autologous bone marrow transplantation status (HCC) Refill Request Start: 03-17-2022 End: 03-17-2022 ambulatory Vimal Crandall MD Work Phone: Hematology/Oncology Comment on above: 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HCC); Multiple myeloma not having achieved remission (HCC); Autologous bone marrow transplantation status (HCC) Start: 03-17-2022 End: 03-17-2022 Patient encounter procedure Vimal Crandall MD Work Phone: [facility] Start: 03-02-2022 Refill Vimal guzman MD Work Phone: Hematology/Oncology Comment on above: Refill Request Start: 02-17-2022 End: 02-17-2022 ambulatory Soha Nunn APRN.CNP Work Phone: Hematology/Oncology Comment on above: Multiple myeloma not having achieved remission (HCC) (Primary Dx) Start: 02-17-2022 End: 02-17-2022 Patient encounter procedure Soha Nunn APRN.CNP Work Phone: [facility] Start: 02-02-2022 Refill Vimal guzman MD Work Phone: Hematology/Oncology Comment on above: Med Change Request Start: 01-18-2022 End: 01-18-2022 ambulatory Vimal Crandall MD Work Phone: Hematology/Oncology Comment on above: Multiple myeloma not having achieved remission (HCC) (Primary Dx) Start: 01-18-2022 End: 01-18-2022 Patient encounter procedure Vimal Crandall MD Work Phone: [facility] Start: 01-12-2022 Telephone encounter Arin Ramirez [facility] Work Phone: Hematology/Oncology Comment on above: Medication Authoriza tion Start: 01-06-2022 End: 01-06-2022 ambulatory Fito Michael Other [facility] Other Start: 01-06-2022 Office outpatient ne w 45 minutes Fito Michael [facility] Start: 01-02-2022 End: 01-02-2022 Emergency department patient visit DO Sana Key Work Phone: [facility] Start: 01-01-2022 End: 01-01-2022 ambulatory Vimal Crandall MD Work Phone: Hematology/Oncology Comment on above: Multiple myeloma not having achieved remission (HCC) (Primary Dx); 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HCC); Immunodeficiency (HCC); Type 2 diabetes (HCC) Start: 01-01-2022 End: 01-01-2022 Patient encounter procedure Vimal Crandall MD Work Phone: [facility] Start: 01-01-2022 Telephone encounter Arcelia Thomas Hematology/Oncology Comment on above: Care Coordination (C ritical Results - Glucose) Start: 12-18-2021 End: 12-18-2021 ambulatory Vimal Crandall MD Work Phone: Hematology/Oncology Comment on above: Multiple myeloma not having achieved remission (HCC) (Primary Dx); 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HCC); Immunodeficiency (HCC); Renal insufficiency Start: 12-18-2021 End: 12-18-2021 Patient encounter procedure Vimal Crandall MD Work Phone: [place] Start: 12-06-2021 End: 12-06-2021 Emergency department patient visit Mena Nunez Facility:[facility] Start: 12-06-2021 End: 12-06-2021 Emergency department patient visit DO Sana Key Work Phone: [facility] Start: 12-04-2021 End: 12-04-2021 Emergency department patient visit Mena Gambinoore Facility:[facility] Start: 12-04-2021 End: 12-04-2021 Emergency department patient visit DO Sana Chunge Work Phone: [facility] Start: 12-03-2021 Telephone encounter Elodia Vegas RN Work Phone: Hematology/Oncology Comment on above: Care Coordination (I D question) Start: 11-20-2021 End: 11-20-2021 Orders Only Mana Randle RN Hematology/Oncology Comment on above: Mixed hyperlipidemia (Primary Dx) Multiple myeloma not having achieved remission (HCC) (Primary Dx) Care Coordination (C all Request) Start: 11-20-2021 Refill Vimal guzman MD Work Phone: Hematology/Oncology Comment on above: Refill Request Start: 10-23-2021 End: 10-23-2021 ambulatory Vimal Crandall MD Work Phone: Hematology/Oncology Comment on above: Multiple myeloma not having achieved remission (HCC) (Primary Dx); 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HCC); Renal insufficiency; Immunodeficiency (HCC); Acute non-recurrent sinusitis, unspecified location Start: 10-23-2021 End: 10-23-2021 Patient encounter procedure Vimal Crandall MD Work Phone: [place] Start: 10-23-2021 Refill Vimal guzman MD Work Phone: Hematology/Oncology Comment on above: Refill Request Start: 09-28-2021 Refill Vimal guzman MD Work Phone: Hematology/Oncology Comment on above: Refill Request Start: 09-01-2021 Telephone encounter Mana Marshall RN Hematology/Oncology Comment on above: Results Start: 08-29-2021 Refill Arin Anny urias [facility] Work Phone: Hematology/Oncology Comment on above: Refill Request Start: 08-28-2021 End: 08-28-2021 ambulatory Vimal Crandall MD Work Phone: Hematology/Oncology Comment on above: Multiple myeloma not having achieved remission (HCC); 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HCC); Autologous bone marrow transplantation status (HCC) Start: 08-28-2021 End: 08-28-2021 Patient encounter procedure Vimal Crandall MD Work Phone: [place] Start: 08-12-2021 End: 08-12-2021 ambulatory Ish Garay Other [facility] Other Start: 08-12-2021 Telephone encounter Ish Garay [facility] Start: 07-31-2021 ambulatory Wing Lopez [facility] Comment on above: SPP Oral Oncology/he matology - No-go ([employer] - no access) Refill Request Start: 07-30-2021 End: 07-30-2021 ambulatory Vimal Crandall MD Work Phone: Hematology/Oncology Comment on above: Multiple myeloma not having achieved remission (HCC) (Primary Dx); 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HCC); Autologous bone marrow transplantation status (HCC); Dietetic diarrhea Start: 07-30-2021 End: 07-30-2021 Patient encounter procedure Vimal Crandall MD Work Phone: [facility] Start: 07-02-2021 End: 07-02-2021 ambulatory Ish Garay Other [place] Other Start: 07-02-2021 FQ visit new patient Ish Garay [facility] Procedures Date Procedure Procedure Detail Performing Clinician Start: 07-17-2024 [facility] LDH [facility] Gene krzysztof External Data Provider Start: 07-17-2024 [facility] PHOSPHATE [facility] Generic External Data Provider Start: 07-17-2024 [facility] URATE [facility] Ge neric External Data Provider Start: 07-13-2024 Echocardiography EVEYLN BEST Start: 07-12-2024 Electrocardiogram JOSEMANUEL BEST Start: 07-12-2024 Electrocardiogram JOSEMANUEL BEST Start: 07-12-2024 Electrocardiogram JOSEMANUEL BEST Start: 07-12-2024 Antibody screen TALIA BEST Comment on above: Order Comment: Speci men Type: BLOOD SPECIMENOrdering Facility: [facility] Address: [address] [place] [address] Performed By: #### T SCR ####ELIF BLOOD BANKIA [id number] [place] [address] [place] Start: 07-09-2024 [facility] COMP METAB 2000 PNL SERPL Generic External Data Provider Start: 07-09-2024 [facility] LDH [facility] Gene krzysztof External Data Provider Start: 07-09-2024 [facility] PHOSPHATE [facility] Generic External Data Provider Start: 07-09-2024 [facility] URATE [facility] Ge neric External Data Provider Start: 07-02-2024 [facility] CBC W AUTO DIFF BLD Generic External Data Provider Start: 06-26-2024 [facility] COMP METAB 2000 PNL SERPL Generic External Data Provider Start: 06-26-2024 [facility] LDH [facility] Gene krzysztof External Data Provider Start: 06-26-2024 [facility] PHOSPHATE [facility] Generic External Data Provider Start: 06-26-2024 [facility] URATE [facility] Ge neric External Data Provider Start: 06-18-2024 [facility] COMP METAB 2000 PNL SERPL Generic External Data Provider Start: 06-18-2024 [facility] LDH [facility] Gene krzysztof External Data Provider Start: 06-18-2024 [facility] PHOSPHATE [facility] Generic External Data Provider Start: 06-18-2024 [facility] URATE [facility] Ge neric External Data Provider Start: 06-15-2024 [facility] CBC W AUTO DIFF BLD Generic External Data Provider Start: 06-11-2024 [facility] COMP METAB 2000 PNL SERPL Generic External Data Provider Start: 06-11-2024 [facility] LDH [facility] Gene krzysztof External Data Provider Start: 06-11-2024 [facility] PHOSPHATE [facility] Generic External Data Provider Start: 06-11-2024 [facility] URATE [facility] Ge neric External Data Provider Start: 06-07-2024 Gluc bld gluc mntr d ev cleared fda spec home use Miguel Angel Lora MD Work Phone: Start: 06-07-2024 [facility] CBC W AUTO DIFF BLD Generic External Data Provider Start: 06-05-2024 [facility] CBC W AUTO DIFF BLD Generic External Data Provider Start: 06-04-2024 [facility] COMP METAB 2000 PNL SERPL Generic External Data Provider Start: 06-04-2024 [facility] LDH SERPL-CCNC Gene krzysztof External Data Provider Start: 06-04-2024 [facility] PHOSPHATE SERPL-MCNC Generic External Data Provider Start: 06-04-2024 [facility] URATE SERPL-MCNC Ge neric External Data Provider Start: 05-28-2024 [facility] CBC W AUTO DIFF BLD Generic External Data Provider Start: 05-24-2024 [facility] CBC W AUTO DIFF BLD Generic External Data Provider Start: 05-21-2024 [facility] COMP METAB 2000 PNL SERPL Generic External Data Provider Start: 05-21-2024 [facility] LDH SERPL-CCNC Gene krzysztof External Data Provider Start: 05-21-2024 [facility] PHOSPHATE SERPL-MCNC Generic External Data Provider Start: 05-21-2024 [facility] URATE SERPL-MCNC Ge neric External Data Provider Start: 05-17-2024 [facility] CBC W AUTO DIFF BLD Generic External Data Provider Start: 05-10-2024 [facility] URATE SERPL-MCNC Ge neric External Data Provider Start: 05-07-2024 [facility] COMP METAB 2000 PNL SERPL Generic External Data Provider Start: 05-07-2024 [facility] LDH SERPL-CCNC Gene krzysztof External Data Provider Start: 05-07-2024 [facility] PHOSPHATE SERPL-MCNC Generic External Data Provider Start: 05-07-2024 [facility] URATE SERPL-MCNC Ge neric External Data Provider Start: 05-03-2024 [facility] COMP METAB 2000 PNL SERPL Generic External Data Provider Start: 05-03-2024 [facility] LDH SERPL-CCNC Gene krzysztof External Data Provider Start: 05-03-2024 [facility] PHOSPHATE SERPL-MCNC Generic External Data Provider Start: 04-30-2024 [facility] CBC W AUTO DIFF BLD Generic External Data Provider Start: 04-20-2024 End: 04-20-2024 [facility] BACTERIA BLD CULT Generic External Data Provider Start: 04-17-2024 BLOOD CULTURE 2 Generic External Data Provider Start: 04-17-2024 BLOOD CULTURE 1 Generic External Data Provider Start: 04-16-2024 [facility] LDH SERPL-CCNC Gene krzysztof External Data Provider Start: 04-16-2024 [facility] PHOSPHATE SERPL-MCNC Generic External Data Provider Start: 04-16-2024 [facility] URATE SERPL-MCNC Ge neric External Data Provider Start: 04-09-2024 [facility] COMP METAB 2000 PNL SERPL Generic External Data Provider Start: 04-09-2024 [facility] LDH SERPL-CCNC Gene krzysztof External Data Provider Start: 04-02-2024 Bri BEST Start: 04-02-2024 [facility] COMP METAB 2000 PNL SERPL Generic External Data Provider Start: 03-26-2024 ALL HGB HCT Generic Ex ternal Data Provider Start: 03-26-2024 [facility] CBC W AUTO DIFF BLD Generic External Data Provider Start: 03-26-2024 [facility] COMP METAB 2000 PNL SERPL Generic External Data Provider Start: 03-26-2024 CCF LDH SERPL-CCNC Gene krzysztof External Data Provider Start: 03-26-2024 [facility] PHOSPHATE SERPL-MCNC Generic External Data Provider Start: 03-26-2024 CCF URATE SERPL-MCNC Ge neric External Data Provider Start: 03-19-2024 [facility] ALBUMIN/CREAT RA BRYCE (UACR) (FOR REMOTE [facility] USE) Generic External Data Provider Start: 03-19-2024 CCF 25(OH)D3 SERPL-MCNC Generic External Data Provider Start: 03-19-2024 [facility] CBC W AUTO DIFF BLD Generic External Data Provider Start: 03-19-2024 [facility] COMP METAB 2000 PNL SERPL Generic External Data Provider Start: 03-19-2024 CCF LDH SERPL-CCNC Gene krzysztof External Data Provider Start: 03-19-2024 CCF LIPID 1996 PNL SERPL Generic External Data Provider Start: 03-19-2024 [facility]CF PHOSPHATE SERPL-MCNC Generic External Data Provider Start: 03-19-2024 CCF URATE SERPL-MCNC Ge neric External Data Provider Start: 03-12-2024 [facility] CBC W AUTO DIFF BLD Generic External Data Provider Start: 03-06-2024 Urnls dip stick/tabl et reagent auto microscopy Bulk Order Provider Start: 02-20-2024 [facility] CBC W AUTO DIFF BLD Generic External Data Provider Start: 02-03-2024 [facility] CBC W AUTO DIFF BLD Generic External Data Provider Start: 02-02-2024 Gluc bld gluc mntr d ev cleared fda spec home use Miguel Angel Lora MD Work Phone: Start: 01-26-2024 [facility] CBC W AUTO DIFF BLD Generic External Data Provider Start: 01-24-2024 Ecg routine ecg w/le ast 12 lds w/i&r Letha Best MD Work Phone: Start: 01-20-2024 CCF LDH SERPL-CCNC Gene krzysztof External Data Provider Start: 01-20-2024 CCF PHOSPHATE SERPL-MCNC Generic External Data Provider Start: 01-20-2024 CCF URATE SERPL-MCNC Ge neric External Data Provider Start: 01-12-2024 CCF CBC W AUTO DIFF BLD Generic External Data Provider Start: 01-12-2024 Blood count complete auto&auto difrntl wbc Vimal Crandall MD Work Phone: Start: 01-10-2024 CCF CBC W AUTO DIFF BLD Generic External Data Provider Start: 01-10-2024 Blood count complete auto&auto difrntl wbc Vimal Crandall MD Work Phone: Start: 01-10-2024 Comprehensive metabo lic 2000 panel - Serum or Plasma Vimal Crandall MD Work Phone: Start: 01-05-2024 [facility] COMP METAB 2000 PNL SERPL Generic External Data Provider Start: 01-05-2024 CCF LDH SERPL-CCNC Gene krzysztof External Data Provider Start: 01-05-2024 CCF PHOSPHATE SERPL-MCNC Generic External Data Provider Start: 01-05-2024 CCF URATE SERPL-MCNC Ge neric External Data Provider Start: 01-05-2024 Comprehensive metabo lic panel Vimal Crandall MD Work Phone: Start: 01-03-2024 CCF CBC W AUTO DIFF BLD Generic External Data Provider Start: 01-03-2024 Blood count complete auto&auto difrntl wbc Vimal Crandall MD Work Phone: Start: 01-03-2024 Radiologic examinati on knee 3 views Orlin Lorenzana DO Work Phone: Start: 01-02-2024 Mri abdomen w/o & w/ contrast material Vimal Crandall MD Work Phone: Start: 09-19-2023 Mri abdomen w/o & w/ contrast material Vimal Crandall MD Work Phone: Start: 2023 H/O: surgery S/P trigger fi nger release Orlin Lorenzana DO Work Phone: Start: 03-10-2023 Us retroperitoneal r eal time w/image complete Gloria Lopez INSURANCE SALESMAN.HIM MANAGER Work Phone: Start: 02-10-2023 Ct abdomen w/contras t material Alejandra Maddox INSURANCE SALESMAN.HIM MANAGER Work Phone: Start: 06-09-2022 Urnls dip stick/tabl et rgnt auto w/o microscopy [facility] Provider Start: 04-06-2022 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[employer] Sana Pascal Work Phone: Start: 07-23-2021 Colonoscopy Orlin stringer DO Work Phone: Aerobic microbial culture DO Sana Key Work Phone: Laboratory test resu lt abnormal Other abnormal tumor markers Denis Almanza MD Work Phone: Plan of Treatment Date Care Activity Detail Author Start: 08-25-2031 Urine microalbumin profile [facility] Start: 07-24-2031 Screening for malignant neoplasm of colon [facility] Start: 06-22-2031 Urine microalbumin profile DTAP,TDAP,TD (4 - Td or Tdap) [facility] Start: 05-23-2026 Glaucoma screening Diabetes: Retinopathy Screening [facility] Start: 07-30-2025 Creatinine measurement Serum Creatinine [facility] Start: 07-26-2025 BP Controlled (<130/80) BP Controlled (<130/80) [facility] Start: 07-23-2025 Creatinine measurement Serum Creatinine [facility] Start: 07-17-2025 Creatinine measurement Serum Creatinine [facility] Start: 07-13-2025 Creatinine measurement Serum Creatinine [facility] Start: 07-12-2025 Creatinine measurement Serum Creatinine [facility] Start: 07-02-2025 Creatinine measurement Serum Creatinine [facility] Start: 06-26-2025 Creatinine measurement Serum Creatinine [facility] Start: 06-18-2025 Creatinine measurement Serum Creatinine [facility] Start: 06-11-2025 BP Controlled (<130/80) BP Controlled (<130/80) [facility] Start: 06-11-2025 Creatinine measurement Serum Creatinine [facility] Start: 06-07-2025 Creatinine measurement Serum Creatinine [facility] Start: 06-05-2025 Creatinine measurement Serum Creatinine [facility] Start: 06-04-2025 BP Controlled (<130/80) BP Controlled (<130/80) [facility] Start: 06-04-2025 Creatinine measurement Serum Creatinine [facility] Start: 05-28-2025 Creatinine measurement Serum Creatinine [facility] Start: 05-26-2025 Glaucoma screening Diabetes: Retinopathy Screening [facility] Start: 05-24-2025 BP Controlled (<130/80) BP Controlled (<130/80) [facility] Start: 05-24-2025 Creatinine measurement Serum Creatinine [facility] Start: 05-21-2025 Creatinine measurement Serum Creatinine [facility] Start: 05-17-2025 Creatinine measurement Serum Creatinine [facility] Start: 05-07-2025 Creatinine measurement Serum Creatinine [facility] Start: 05-07-2025 PROSTATE CANCER SCREENING DISCUSSION PROSTATE CANCER SCREENING DISCUSSION [facility] Start: 05-03-2025 Creatinine measurement Serum Creatinine [facility] Start: 04-25-2025 BP Controlled (<130/80) BP Controlled (<130/80) [facility] Start: 04-24-2025 Creatinine measurement Serum Creatinine [facility] Start: 04-16-2025 Creatinine measurement Serum Creatinine [facility] Start: 04-09-2025 Creatinine measurement Serum Creatinine [facility] Start: 04-02-2025 BP Controlled (<130/80) BP Controlled (<130/80) [facility] Start: 04-02-2025 Creatinine measurement Serum Creatinine [facility] Start: 03-26-2025 BP Controlled (<130/80) BP Controlled (<130/80) [facility] Start: 03-26-2025 Creatinine measurement Serum Creatinine [facility] Start: 03-20-2025 Urine screening for protein Diabetes: Urine Protein Screening [facility] Start: 03-19-2025 Creatinine measurement Serum Creatinine [facility] Start: 03-19-2025 Hepatitis B screening Urine Albumin:Creatinine Ratio [facility] Start: 03-19-2025 Hepatitis B surface antibody level LDL Cholesterol [facility] Start: 03-12-2025 Complete blood count Hemoglobin/Hematocrit [facility] Start: 03-12-2025 Creatinine measurement Serum Creatinine [facility] Start: 03-11-2025 End: 03-11-2025 Patient encounter procedure 03/11/2025 11:00 AM EST Office Visit Urology [address] [place] [address] Binta Lantigua APRN.HIM MANAGER [address] [place] [address] one year follow up Urology Comment on above: one year follow up Start: 02-19-2025 Creatinine measurement Serum Creatinine [facility] Start: 02-02-2025 Creatinine measurement Serum Creatinine [facility] Start: 01-25-2025 Creatinine measurement Serum Creatinine [facility] Start: 01-22-2025 End: 01-22-2025 Patient encounter procedure 01/22/2025 2:20 PM EDT Office Visit Cardiology [address] [place] [address] [place] [address] [place] [address] AFIB Cardiology Comment on above: AFIB Start: 01-19-2025 Creatinine measurement Serum Creatinine [facility] Start: 01-11-2025 Creatinine measurement Serum Creatinine [facility] Start: 01-09-2025 Creatinine measurement Serum Creatinine [facility] Start: 01-04-2025 Creatinine measurement Serum Creatinine [facility] Start: 01-02-2025 Creatinine measurement Serum Creatinine [facility] Start: 12-26-2024 End: 12-26-2024 Patient encounter procedure 12/26/2024 11:20 AM EDT Office Visit Cardiology [address] [place] [address] [place] [address] [place] [address] AFIB Cardiology Comment on above: AFIB Start: 12-08-2024 Creatinine measurement Serum Creatinine [facility] Start: 10-25-2024 End: 10-25-2024 Patient encounter procedure 10/25/2024 2:00 PM EDT Office Visit Gastroenterology [address] [place] [address] Smiley Stewart MD [address] [place], [place] [id number] liver cirrhosis Gastroenterology Comment on above: liver cirrhosis Start: 10-13-2024 Creatinine measurement Serum Creatinine [facility] Start: 10-04-2024 End: 10-04-2024 Patient encounter procedure 10/04/2024 10:30 AM EDT Office Visit [facility] [address] [place] [address] Miguel Angel Lora MD [address] [place] [address] [facility] Start: 09-14-2024 Creatinine measurement Serum Creatinine [facility] Start: 09-07-2024 End: 09-07-2024 Follow-up encounter 09/07/2024 8:00 AM EDT [facility] Hematology/Oncology [address] [place] [address] Osvaldo Moreira MD [address] [place] [address] VV FOLLOW UP Hematology/Oncology Comment on above: VV FOLLOW UP Start: 09-05-2024 Hemoglobin A1c measurement [facility] Start: 09-04-2024 End: 09-04-2024 Patient encounter procedure 09/04/2024 1:30 PM EDT Office Visit [facility] [address] [place] [address] [place] [address] LAB [facility] Comment on above: LAB Start: 08-27-2024 End: 07-30-2025 [id number] [Mass/volume] in Serum or Plasma B2 MICROGLOBULIN Lab Routine Multiple myeloma not having achieved remission (HCC) Expected: 08/27/2024 (Approximate), Expires: 07/30/2025 [facility] Comment on above: Expected: 08/27/2024 (Approximate), Expi res: 07/30/2025 Start: 08-27-2024 End: 07-30-2025 Calcium.ionized [Moles/volume] in Blood CALCIUM, IONIZED Lab Routine Multiple myeloma not having achieved remission (HCC) Expected: 08/27/2024 (Approximate), Expires: 07/30/2025 [facility] Comment on above: Expected: 08/27/2024 (Approximate), Expi res: 07/30/2025 Start: 08-27-2024 End: 07-30-2025 CBC W Auto Differential panel - Blood [facility] Comment on above: Expected: 08/27/2024 (Approximate), Expi res: 11/26/2024 Expected: 08/27/2024 (Approximate), Expires: 07/30/2025 Start: 08-27-2024 End: 07-30-2025 Comprehensive metabolic 2000 panel - Serum or Plasma [facility] Comment on above: Expected: 08/27/2024 (Approximate), Expi res: 11/26/2024 Expected: 08/27/2024 (Approximate), Expires: 07/30/2025 Start: 08-27-2024 End: 11-26-2024 KAPPA/ORTIZ,FREE,SER KAPPA/ORTIZ,FREE,SER Lab Routine Multiple myeloma not having achieved remission (HCC) Expected: 08/27/2024 (Approximate), Expires: 11/26/2024 [facility] Comment on above: Expected: 08/27/2024 (Approximate), Expi res: 11/26/2024 Start: 08-27-2024 End: 07-30-2025 Lactate dehydrogenase [Enzymatic activity/volume] in Serum or Plasma [facility] Comment on above: Expected: 08/27/2024 (Approximate), Expi res: 11/26/2024 Expected: 08/27/2024 (Approximate), Expires: 07/30/2025 Start: 08-27-2024 End: 11-26-2024 MONOCLONAL PROT UR W/INTERP MONOCLONAL PROT UR W/INTERP Lab Routine Multiple myeloma not having achieved remission (HCC) Expected: 08/27/2024 (Approximate), Expires: 11/26/2024 [facility] Work Phone: Comment on above: Expected: 08/27/2024 (Approximate), Expi res: 11/26/2024 Start: 08-27-2024 End: 07-30-2025 MONOCLONAL PROTEIN, SERUM (BLOOD) [facility] Comment on above: Expected: 08/27/2024 (Approximate), Expi res: 11/26/2024 Expected: 08/27/2024 (Approximate), Expires: 07/30/2025 Start: 08-27-2024 End: 07-30-2025 Phosphate [Mass/volume] in Serum or Plasma PHOSPHORUS INORGANIC Lab Routine Multiple myeloma not having achieved remission (HCC) Expected: 08/27/2024 (Approximate), Expires: 07/30/2025 [facility] Comment on above: Expected: 08/27/2024 (Approximate), Expi res: 07/30/2025 Start: 08-27-2024 End: 11-26-2024 PROTEIN ELECT RND UR W/INTERP PROTEIN ELECT RND UR W/INTERP Lab Routine Multiple myeloma not having achieved remission (HCC) Expected: 08/27/2024 (Approximate), Expires: 11/26/2024 [facility] Comment on above: Expected: 08/27/2024 (Approximate), Expi res: 11/26/2024 Start: 08-27-2024 End: 07-30-2025 PROTEIN ELECTROPHORESIS SERUM W/INTERP [facility] Comment on above: Expected: 08/27/2024 (Approximate), Expi res: 11/26/2024 Expected: 08/27/2024 (Approximate), Expires: 07/30/2025 Start: 08-27-2024 End: 07-30-2025 Urate [Mass/volume] in Serum or Plasma URIC ACID Lab Routine Multiple myeloma not having achieved remission (HCC) Expected: 08/27/2024 (Approximate), Expires: 07/30/2025 [facility] Comment on above: Expected: 08/27/2024 (Approximate), Expi res: 07/30/2025 Start: 08-17-2024 Creatinine measurement Serum Creatinine [facility] Start: 08-14-2024 End: 11-13-2024 CBC W Auto Differential panel - Blood COMPLETE BLOOD COUNT AND DIFFERENTIAL Lab Routine Multiple myeloma not having achieved remission (HCC) Expected: 08/14/2024 (Approximate), Expires: 11/13/2024 [facility] Comment on above: Expected: 08/14/2024 (Approximate), Expi res: 11/13/2024 Start: 08-14-2024 End: 11-13-2024 Comprehensive metabolic 2000 panel - Serum or Plasma COMPREHENSIVE METABOLIC PANEL Lab Routine Multiple myeloma not having achieved remission (HCC) Expected: 08/14/2024 (Approximate), Expires: 11/13/2024 [facility] Comment on above: Expected: 08/14/2024 (Approximate), Expi res: 11/13/2024 Start: 08-14-2024 End: 11-13-2024 Lactate dehydrogenase [Enzymatic activity/volume] in Serum or Plasma LACTATE DEHYDROGENASE Lab Routine Multiple myeloma not having achieved remission (HCC) Expected: 08/14/2024 (Approximate), Expires: 11/13/2024 [facility] Comment on above: Expected: 08/14/2024 (Approximate), Expi res: 11/13/2024 Start: 08-14-2024 End: 11-13-2024 MONOCLONAL PROT UR W/INTERP MONOCLONAL PROT UR W/INTERP Lab Routine Multiple myeloma not having achieved remission (HCC) Expected: 08/14/2024 (Approximate), Expires: 11/13/2024 [facility] Comment on above: Expected: 08/14/2024 (Approximate), Expi res: 11/13/2024 Start: 08-14-2024 End: 11-13-2024 MONOCLONAL PROTEIN, SERUM (BLOOD) MONOCLONAL PROTEIN, SERUM (BLOOD) Lab Routine Multiple myeloma not having achieved remission (HCC) Expected: 08/14/2024 (Approximate), Expires: 11/13/2024 [facility] Comment on above: Expected: 08/14/2024 (Approximate), Expi res: 11/13/2024 Start: 08-14-2024 End: 11-13-2024 PROTEIN ELECT RND UR W/INTERP PROTEIN ELECT RND UR W/INTERP Lab Routine Multiple myeloma not having achieved remission (HCC) Expected: 08/14/2024 (Approximate), Expires: 11/13/2024 [facility] Comment on above: Expected: 08/14/2024 (Approximate), Expi res: 11/13/2024 Start: 08-14-2024 End: 11-13-2024 PROTEIN ELECTROPHORESIS SERUM W/INTERP PROTEIN ELECTROPHORESIS SERUM W/INTERP Lab Routine Multiple myeloma not having achieved remission (HCC) Expected: 08/14/2024 (Approximate), Expires: 11/13/2024 [facility] Comment on above: Expected: 08/14/2024 (Approximate), Expi res: 11/13/2024 Start: 08-06-2024 End: 08-06-2024 Follow-up encounter Hematology/Oncology Comment on above: 1 week lab follow up and chemotx Peace fa spro + Neupogen Start: 08-06-2024 End: 08-06-2024 Patient encounter procedure 08/06/2024 8:45 AM EDT Office Visit [facility] [address] [place] [address] 1 week lab follow up and chemotx Peace faspro + Neupogen [facility] Comment on above: 1 week lab follow up and chemotx Peace fa spro + Neupogen Start: 08-02-2024 End: 08-02-2024 ambulatory 08/02/2024 2:30 PM EDT Infusion Center Hematology/Oncology [address] [place] [address] ivf + labs and Neupogen Hematology/Oncology Comment on above: ivf + labs and Neupogen Start: 08-01-2024 End: 08-01-2024 ambulatory 08/01/2024 2:30 PM EDT Infusion Center Hematology/Oncology [address] [place] [address] [place] [address] Neupogen x 4 days Hematology/Oncology Comment on above: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 [facility] Start: 03-26-2024 End: 03-26-2024 Follow-up encounter 03/26/2024 11:30 AM EST Visit (SP) Office Hematology/Oncology [address] [place] [address] Soha Nunn, INSURANCE SALESMAN.HIM MANAGER [address] [place] [address] 1 week follow up with lab Hematology/Oncology Comment on above: 1 week follow up with lab Start: 03-26-2024 End: 03-26-2024 Patient encounter procedure 03/26/2024 11:15 AM EST Office Visit [facility] [address] [place] [address] [place] [address] lab [facility] Comment on above: lab Start: 03-23-2024 Serum Creatinine Serum Creatinine [facility] Start: 03-19-2024 End: 06-18-2024 CBC W Auto Differential panel - Blood COMPLETE BLOOD COUNT AND DIFFERENTIAL Lab Routine Multiple myeloma not having achieved remission (HCC) Hepatocellular carcinoma (HCC) Expected: 03/19/2024, Expires: 06/18/2024 [facility] Comment on above: Expected: 03/19/2024, Expires: Start: 03-19-2024 End: 06-18-2024 Comprehensive metabolic 2000 panel - Serum or Plasma COMPREHENSIVE METABOLIC PANEL Lab Routine Multiple myeloma not having achieved remission (HCC) Hepatocellular carcinoma (HCC) Expected: 03/19/2024, Expires: 06/18/2024 [facility] Work Phone: Comment on above: Expected: 03/19/2024, Expires: Start: 03-19-2024 End: 06-18-2024 Lactate dehydrogenase [Enzymatic activity/volume] in Serum or Plasma LACTATE DEHYDROGENASE Lab Routine Multiple myeloma not having achieved remission (HCC) Hepatocellular carcinoma (HCC) Expected: 03/19/2024, Expires: 06/18/2024 [facility] Comment on above: Expected: 03/19/2024, Expires: Start: 03-19-2024 End: 06-18-2024 Phosphate [Mass/volume] in Serum or Plasma PHOSPHORUS INORGANIC Lab Routine Multiple myeloma not having achieved remission (HCC) Hepatocellular carcinoma (HCC) Expected: 03/19/2024, Expires: 06/18/2024 [facility] Comment on above: Expected: 03/19/2024, Expires: Start: 03-19-2024 End: 06-18-2024 Urate [Mass/volume] in Serum or Plasma URIC ACID Lab Routine Multiple myeloma not having achieved remission (HCC) Hepatocellular carcinoma (HCC) Expected: 03/19/2024, Expires: 06/18/2024 [facility] Comment on above: Expected: 03/19/2024, Expires: Start: 03-19-2024 End: 03-19-2024 Follow-up encounter 03/19/2024 1:30 PM EST Visit (SP) Office Hematology/Oncology [address] [place] [address] Lorena Blackwell, PA-C [address] [place] [address] 1 week follow up with lab Hematology/Oncology Comment on above: 1 week follow up with lab Start: 03-19-2024 End: 03-19-2024 Patient encounter procedure 03/19/2024 1:15 PM EST Office Visit [facility] [address] [place] [address] 1 week follow up with lab [facility] Comment on above: 1 week follow up with lab Start: 03-15-2024 End: 03-15-2024 ambulatory 03/15/2024 1:45 PM EST Infusion Center Hematology/Oncology [address] [place] [address] Neupogen Day 4 Hematology/Oncology Comment on above: Neupogen Day 4 Start: 03-14-2024 End: 03-14-2024 ambulatory 03/14/2024 1:45 PM EST Infusion Center Hematology/Oncology [address] [place] [address] Neupogen Day 3 Hematology/Oncology Comment on above: Neupogen Day 3 Start: 03-13-2024 End: 03-13-2024 ambulatory 03/13/2024 1:45 PM EST Infusion Center Hematology/Oncology [address] [place] [address] Neupogen Day 2 Hematology/Oncology Comment on above: Neupogen Day 2 Start: 03-13-2024 End: 03-13-2024 Patient encounter procedure [facility] Comment on above: Arrived Start: 03-12-2024 End: 03-12-2024 Follow-up encounter Hematology/Oncology Comment on above: 3 week lab follow up Start: 03-12-2024 End: 03-12-2024 Patient encounter procedure [facility] Comment on above: 3 week lab follow up Start: 03-12-2024 End: 02-19-2025 [id number] [Mass/volume] in Serum or Plasma B2 MICROGLOBULIN Lab Routine Multiple myeloma not having achieved remission (HCC) 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HCC) Stage 3 chronic kidney disease, unspecified whether stage 3a or 3b CKD (HCC) Hepatocellular carcinoma (HCC) Expected: 03/12/2024 (Approximate), Expires: 02/19/2025 [facility] Work Phone: Comment on above: Expected: 03/12/2024 (Approximate), Expi res: 02/19/2025 Start: 03-12-2024 End: 02-19-2025 Calcium.ionized [Moles/volume] in Blood CALCIUM, IONIZED Lab Routine Multiple myeloma not having achieved remission (HCC) 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HCC) Stage 3 chronic kidney disease, unspecified whether stage 3a or 3b CKD (HCC) Hepatocellular carcinoma (HCC) Expected: 03/12/2024 (Approximate), Expires: 02/19/2025 [facility] Comment on above: Expected: 03/12/2024 (Approximate), Expi res: 02/19/2025 Start: 03-12-2024 End: 02-19-2025 CBC W Auto Differential panel - Blood COMPLETE BLOOD COUNT AND DIFFERENTIAL Lab Routine Multiple myeloma not having achieved remission (HCC) 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HCC) Stage 3 chronic kidney disease, unspecified whether stage 3a or 3b CKD (HCC) Hepatocellular carcinoma (HCC) Expected: 03/12/2024 (Approximate), Expires: 02/19/2025 [facility] Comment on above: Expected: 03/12/2024 (Approximate), Expi res: 02/19/2025 Start: 03-12-2024 End: 02-19-2025 Comprehensive metabolic 2000 panel - Serum or Plasma COMPREHENSIVE METABOLIC PANEL Lab Routine Multiple myeloma not having achieved remission (HCC) 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HCC) Stage 3 chronic kidney disease, unspecified whether stage 3a or 3b CKD (HCC) Hepatocellular carcinoma (HCC) Expected: 03/12/2024 (Approximate), Expires: 02/19/2025 [facility] Comment on above: Expected: 03/12/2024 (Approximate), Expi res: 02/19/2025 Start: 03-12-2024 End: 06-11-2024 KAPPA/ORTIZ,FREE,SER KAPPA/ORTIZ,FREE,SER Lab Routine Multiple myeloma not having achieved remission (HCC) 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HCC) Stage 3 chronic kidney disease, unspecified whether stage 3a or 3b CKD (HCC) Hepatocellular carcinoma (HCC) Expected: 03/12/2024 (Approximate), Expires: 06/11/2024 [facility] Comment on above: Expected: 03/12/2024 (Approximate), Expi res: 06/11/2024 Start: 03-12-2024 End: 02-19-2025 Lactate dehydrogenase [Enzymatic activity/volume] in Serum or Plasma LACTATE DEHYDROGENASE Lab Routine Multiple myeloma not having achieved remission (HCC) 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HCC) Stage 3 chronic kidney disease, unspecified whether stage 3a or 3b CKD (HCC) Hepatocellular carcinoma (HCC) Expected: 03/12/2024 (Approximate), Expires: 02/19/2025 [facility] Comment on above: Expected: 03/12/2024 (Approximate), Expi res: 02/19/2025 Start: 03-12-2024 End: 02-19-2025 MONOCLONAL PROTEIN, SERUM (BLOOD) MONOCLONAL PROTEIN, SERUM (BLOOD) Lab Routine Multiple myeloma not having achieved remission (HCC) 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HCC) Stage 3 chronic kidney disease, unspecified whether stage 3a or 3b CKD (HCC) Hepatocellular carcinoma (HCC) Expected: 03/12/2024 (Approximate), Expires: 02/19/2025 [facility] Comment on above: Expected: 03/12/2024 (Approximate), Expi res: 02/19/2025 Start: 03-12-2024 End: 02-19-2025 Phosphate [Mass/volume] in Serum or Plasma PHOSPHORUS INORGANIC Lab Routine Multiple myeloma not having achieved remission (HCC) 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HCC) Stage 3 chronic kidney disease, unspecified whether stage 3a or 3b CKD (HCC) Hepatocellular carcinoma (HCC) Expected: 03/12/2024 (Approximate), Expires: 02/19/2025 [facility] Comment on above: Expected: 03/12/2024 (Approximate), Expi res: 02/19/2025 Start: 03-12-2024 End: 02-19-2025 PROTEIN ELECTROPHORESIS SERUM W/INTERP PROTEIN ELECTROPHORESIS SERUM W/INTERP Lab Routine Multiple myeloma not having achieved remission (HCC) 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HCC) Stage 3 chronic kidney disease, unspecified whether stage 3a or 3b CKD (HCC) Hepatocellular carcinoma (HCC) Expected: 03/12/2024 (Approximate), Expires: 02/19/2025 [facility] Comment on above: Expected: 03/12/2024 (Approximate), Expi res: 02/19/2025 Start: 03-12-2024 End: 02-19-2025 Urate [Mass/volume] in Serum or Plasma URIC ACID Lab Routine Multiple myeloma not having achieved remission (HCC) 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HCC) Stage 3 chronic kidney disease, unspecified whether stage 3a or 3b CKD (HCC) Hepatocellular carcinoma (HCC) Expected: 03/12/2024 (Approximate), Expires: 02/19/2025 [facility] Comment on above: Expected: 03/12/2024 (Approximate), Expi res: 02/19/2025 Start: 03-06-2024 End: 03-06-2024 Patient encounter procedure 03/06/2024 3:15 PM EDT Office Visit Urology [address] [address] Kelsi Stevens MD [address] [place], [place] [id number] appointment with dr Stevens in 6 months - r/s from 02/20 Urology Comment on above: appointment with dr Stevens in 6 months - r/s from 02/20 Start: 02-24-2024 Hemoglobin/Hematocrit Hemoglobin/Hematocrit [facility] Start: 02-21-2024 End: 02-21-2024 Patient encounter procedure 02/21/2024 4:30 PM EDT Office Visit Urology [address] [address] Kelsi Stevens MD [address] [place], [place] [id number] appointment with dr Stevens in 6 months at Urology Comment on above: appointment with dr Stevens in 6 months at Start: 02-20-2024 End: 02-20-2024 Follow-up encounter 02/20/2024 3:00 PM EDT Visit (SP) Office Hematology/Oncology [address] [place] [address] Vimal Crandall MD [address] [place] [address] 3 week lab follow up Hematology/Oncology Comment on above: 3 week lab follow up Start: 02-20-2024 End: 02-20-2024 Patient encounter procedure 02/20/2024 2:45 PM EDT Office Visit [facility] [address] [place] [address] 3 week lab follow up [facility] Comment on above: 3 week lab follow up Start: 02-17-2024 Hemoglobin/Hematocrit Hemoglobin/Hematocrit [facility] Start: 02-17-2024 Serum Creatinine Serum Creatinine [facility] Start: 02-14-2024 End: 02-14-2024 Patient encounter procedure [facility] Comment on above: Arrived Start: 02-06-2024 End: 02-06-2024 Patient encounter procedure 02/06/2024 11:15 AM EDT Procedure Visit [facility] Orlin Lorenzana, DO [address] [address] [facility] Start: 02-03-2024 End: 01-19-2025 [id number] [Mass/volume] in Serum or Plasma B2 MICROGLOBULIN Lab Routine Multiple myeloma not having achieved remission (HCC) Expected: 02/03/2024 (Approximate), Expires: 01/19/2025 [facility] Work Phone: Comment on above: Expected: 02/03/2024 (Approximate), Expi res: 01/19/2025 Start: 02-03-2024 End: 01-19-2025 Calcium.ionized [Moles/volume] in Blood CALCIUM, IONIZED Lab Routine Multiple myeloma not having achieved remission (HCC) Expected: 02/03/2024 (Approximate), Expires: 01/19/2025 [facility] Comment on above: Expected: 02/03/2024 (Approximate), Expi res: 01/19/2025 Start: 02-03-2024 End: 01-19-2025 CBC W Auto Differential panel - Blood COMPLETE BLOOD COUNT AND DIFFERENTIAL Lab Routine Multiple myeloma not having achieved remission (HCC) Expected: 02/03/2024 (Approximate), Expires: 01/19/2025 [facility] Comment on above: Expected: 02/03/2024 (Approximate), Expi res: 01/19/2025 Start: 02-03-2024 End: 01-19-2025 Comprehensive metabolic 2000 panel - Serum or Plasma COMPREHENSIVE METABOLIC PANEL Lab Routine Multiple myeloma not having achieved remission (HCC) Expected: 02/03/2024 (Approximate), Expires: 01/19/2025 [facility] Comment on above: Expected: 02/03/2024 (Approximate), Expi res: 01/19/2025 Start: 02-03-2024 End: 05-04-2024 KAPPA/ORTIZ,FREE,SER KAPPA/ORTIZ,FREE,SER Lab Routine Multiple myeloma not having achieved remission (HCC) Expected: 02/03/2024 (Approximate), Expires: 05/04/2024 [facility] Comment on above: Expected: 02/03/2024 (Approximate), Expi res: 05/04/2024 Start: 02-03-2024 End: 01-19-2025 Lactate dehydrogenase [Enzymatic activity/volume] in Serum or Plasma LACTATE DEHYDROGENASE Lab Routine Multiple myeloma not having achieved remission (HCC) Expected: 02/03/2024 (Approximate), Expires: 01/19/2025 [facility] Comment on above: Expected: 02/03/2024 (Approximate), Expi res: 01/19/2025 Start: 02-03-2024 End: 01-19-2025 MONOCLONAL PROTEIN, SERUM (BLOOD) MONOCLONAL PROTEIN, SERUM (BLOOD) Lab Routine Multiple myeloma not having achieved remission (HCC) Expected: 02/03/2024 (Approximate), Expires: 01/19/2025 [facility] Comment on above: Expected: 02/03/2024 (Approximate), Expi res: 01/19/2025 Start: 02-03-2024 End: 01-19-2025 Phosphate [Mass/volume] in Serum or Plasma PHOSPHORUS INORGANIC Lab Routine Multiple myeloma not having achieved remission (HCC) Expected: 02/03/2024 (Approximate), Expires: 01/19/2025 [facility] Comment on above: Expected: 02/03/2024 (Approximate), Expi res: 01/19/2025 Start: 02-03-2024 End: 01-19-2025 PROTEIN ELECTROPHORESIS SERUM W/INTERP PROTEIN ELECTROPHORESIS SERUM W/INTERP Lab Routine Multiple myeloma not having achieved remission (HCC) Expected: 02/03/2024 (Approximate), Expires: 01/19/2025 [facility] Comment on above: Expected: 02/03/2024 (Approximate), Expi res: 01/19/2025 Start: 02-03-2024 End: 01-19-2025 Urate [Mass/volume] in Serum or Plasma URIC ACID Lab Routine Multiple myeloma not having achieved remission (HCC) Expected: 02/03/2024 (Approximate), Expires: 01/19/2025 [facility] Comment on above: Expected: 02/03/2024 (Approximate), Expi res: 01/19/2025 Start: 02-03-2024 End: 02-03-2024 Follow-up encounter 02/03/2024 9:45 AM EDT Visit (SP) Office Hematology/Oncology [address] [place] [address] Vimal Crandall MD [address] [facility] [place] [address] 1 week lab follow up Hematology/Oncology Comment on above: 1 week lab follow up Start: 02-03-2024 End: 02-03-2024 Patient encounter procedure 02/03/2024 9:30 AM EDT Office Visit [facility] [address] [facility] [place] [address] 1 week lab follow up [facility] Comment on above: 1 week lab follow up Start: 02-02-2024 End: 02-01-2025 25-hydroxyvitamin D3 [Mass/volume] in Serum or Plasma Vitamin D 25 hydroxy Total Lab Routine Vitamin D deficiency Expected: 02/02/2024 (Approximate), Expires: 02/01/2025 [facility] Work Phone: Comment on above: Expected: 02/02/2024 (Approximate), Expi res: 02/01/2025 Start: 02-02-2024 End: 02-01-2025 Lipid 1996 panel - Serum or Plasma Lipid panel Lab Routine Type 2 diabetes mellitus with hyperglycemia, with long-term current use of insulin ([facility]) Expected: 02/02/2024 (Approximate), Expires: 02/01/2025 [facility] Comment on above: Expected: 02/02/2024 (Approximate), Expi res: 02/01/2025 Start: 02-02-2024 End: 02-01-2025 Microalbumin/Creatinine panel in random Urine Microalbumin / creatinine urine ratio Lab Routine Type 2 diabetes mellitus with hyperglycemia, with long-term current use of insulin ([facility]) Expected: 02/02/2024 (Approximate), Expires: 02/01/2025 [facility] Comment on above: Expected: 02/02/2024 (Approximate), Expi res: 02/01/2025 Start: 02-02-2024 End: 02-01-2025 Renal function panel Renal function panel Lab Routine Type 2 diabetes mellitus with hyperglycemia, with long-term current use of insulin ([facility]) Expected: 02/02/2024 (Approximate), Expires: 02/01/2025 [facility] Comment on above: Expected: 02/02/2024 (Approximate), Expi res: 02/01/2025 Start: 02-02-2024 End: 02-02-2024 Patient encounter procedure [facility] Comment on above: Arrived Start: 01-26-2024 End: 01-26-2024 Patient encounter procedure 01/26/2024 11:30 AM EDT Office Visit [facility] [address] [place] [address] [place] [address] 1 week lab follow up [facility] Comment on above: 1 week lab follow up Start: 01-24-2024 End: 01-24-2024 Patient encounter procedure [facility] Comment on above: Left knee pain, unspecified chronicity ( Primary Dx); Complex tear of medial meniscus of left knee as current injury, initial encounter; Complex tear of lateral meniscus of left knee as current injury, initial encounter; Primary osteoarthritis of left knee Arrived Start: 01-20-2024 Hepatitis B screening Urine Albumin:Creatinine Ratio [facility] Start: 01-20-2024 Hepatitis B surface antibody level LDL Cholesterol [facility] Start: 01-20-2024 Serum Creatinine Serum Creatinine [facility] Start: 01-20-2024 Urine screening for protein Diabetes: Urine Protein Screening [facility] Start: 01-14-2024 Hemoglobin A1c measurement [facility] Start: 01-13-2024 End: 01-13-2024 Professional / ancillary services management 01/13/2024 10:00 AM EDT Ancillary Procedure [facility] MR [address] [place] [address] [facility] Start: 01-12-2024 End: 01-12-2024 ambulatory 01/12/2024 2:30 PM EDT [facility] Hematology/Oncology [address] [place] [address] IV FLUIDS per phone encounterdate ok'd by RSwanda Hematology/Oncology Comment on above: IV FLUIDS per phone encounterdate ok' d by RSwanda Start: 01-12-2024 End: 01-12-2024 Patient encounter procedure 01/12/2024 2:15 PM EDT Office Visit [facility] [address] [facility] [place] [address] LABS per phone encounter-date ok'd by RSessler [facility] Comment on above: LABS per phone encounter-date ok'd by RSessler Start: 01-10-2024 End: 01-10-2024 Patient encounter procedure 01/10/2024 2:15 PM EDT Office Visit [facility] [address] [place] [address] LABS per phone encounter-date ok'd by Piper [facility] Comment on above: LABS per phone encounter-date ok'd by Piper Start: 01-10-2024 End: 01-10-2024 ambulatory Hematology/Oncology Comment on above: Virtual visit after mri at [facility] on 4 IV FLUIDS per phone encounterdate ok'd by Piper Start: 01-08-2024 Covid-19 Vaccine ( season) Covid-19 Vaccine () [facility] Start: 01-08-2024 Covid-19 Vaccine () Covid-19 Vaccine () [facility] Start: 01-08-2024 Influenza vaccination Influenza Vaccine (#1) [facility] Start: 01-05-2024 End: 01-05-2024 ambulatory Hematology/Oncology Comment on above: IVF and Labs per Heena S.- Ok'd by Rupinder PLEASE PRINT OUT & HAND PT'S APPTS ON 01/09 & 01/11 Start: 01-03-2024 End: 01-03-2024 Nursing evaluation of patient and report 01/03/2024 2:00 PM EDT Nurse Visit Hematology/Oncology [address] [place] [address] Arcelia Thomas, RN [address] [place] [address] Chemo Ed Hematology/Oncology Comment on above: Chemo Ed Start: 01-03-2024 End: 01-03-2024 ambulatory 01/03/2024 1:00 PM EDT Infusion Center Hematology/Oncology [address] [place] [address] IVF and Labs per Heena S.- Ok'd by [facility] Hematology/Oncology Comment on above: IVF and Labs per Heena S.- Ok'd by Gavimit Start: 01-03-2024 End: 01-03-2024 Patient encounter procedure 01/03/2024 10:00 AM EDT Office Visit [facility] [address] [facility] [address] [place] [address] Orlin Lorenzana, 112 [facility] [address] [place] [address] Left knee pain, unspecified chronicity (Primary Dx) [facility] Comment on above: Left knee pain, unspecified chronicity ( Primary Dx) Start: 01-02-2024 End: 01-02-2024 Patient encounter procedure 01/02/2024 11:20 AM EDT Appointment Radiology [address] [place] [address] MRI LIver w/wo contrast Radiology Comment on above: MRI LIver w/wo contrast Start: 01-02-2024 Subsequent hospital visit by physician 01/02/2024 11:20 AM EDT Hospital Encounter Radiology [address] [place] [id number] Hepatocellular carcinoma (HCC) [C22.0] Radiology Comment on above: Hepatocellular carcinoma (HCC) [C22.0] Start: 12-23-2023 HEMOGLOBIN/HEMATOCRIT HEMOGLOBIN/HEMATOCRIT [facility] Start: 12-23-2023 SERUM CREATININE SERUM CREATININE [facility] Start: 12-20-2023 End: 12-20-2023 ambulatory 12/20/2023 1:45 PM EDT [facility] Hematology/Oncology [address] [place] [address] Vimal Crandall MD [address] [place] [address] Virtual visit after mri at [facility] on 01-02-24 Hematology/Oncology Comment on above: Virtual visit after mri at [facility] on 4 Start: 12-09-2023 End: 12-09-2023 Follow-up encounter 12/09/2023 11:15 AM EDT Visit (SP) Office Hematology/Oncology [address] [facility] [place] [address] Vimal Crandall MD [address] [place] [address] 4 week follow up lab Hematology/Oncology Comment on above: 4 week follow up lab Start: 12-09-2023 End: 12-09-2023 Patient encounter procedure 12/09/2023 11:00 AM EDT Office Visit [facility] [address] [place] [address] 4 week follow up lab [facility] Comment on above: 4 week follow up lab Start: 11-18-2023 SERUM CREATININE SERUM CREATININE [facility] Start: 11-14-2023 End: 11-14-2023 Patient encounter procedure 11/14/2023 4:45 PM EDT Office Visit Urology [address] [address] Kelsi Stevens MD [address] [place] [address] Stevens in 6 months at Urology Comment on above: appointment with dr Stevens in 6 months at Start: 11-12-2023 BP CONTROLLED (<130/80) BP CONTROLLED (<130/80) [facility] Start: 11-11-2023 End: 11-11-2023 Follow-up encounter 11/11/2023 2:30 PM EDT Visit (SP) Office Hematology/Oncology [address] [place] [address] Vimal Crandall MD [address] [place] [address] 4 week follow up lab Hematology/Oncology Comment on above: 4 week follow up lab Start: 11-11-2023 End: 11-11-2023 Patient encounter procedure 11/11/2023 2:15 PM EDT Office Visit [facility] [address] [facility] [place] [address] 4 week follow up lab [facility] Comment on above: 4 week follow up lab Start: 11-11-2023 End: 10-13-2024 [id number] [Mass/volume] in Serum or Plasma B2 MICROGLOBULIN Lab Routine Multiple myeloma not having achieved remission (HCC) 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HCC) Expected: 11/11/2023 (Approximate), Expires: 10/13/2024 [facility] Work Phone: Comment on above: Expected: 11/11/2023 (Approximate), Expi res: 10/13/2024 Start: 11-11-2023 End: 10-13-2024 Calcium.ionized [Moles/volume] in Blood CALCIUM, IONIZED Lab Routine Multiple myeloma not having achieved remission (HCC) 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HCC) Expected: 11/11/2023 (Approximate), Expires: 10/13/2024 [facility] Comment on above: Expected: 11/11/2023 (Approximate), Expi res: 10/13/2024 Start: 11-11-2023 End: 10-13-2024 CBC W Auto Differential panel - Blood COMPLETE BLOOD COUNT AND DIFFERENTIAL Lab Routine Multiple myeloma not having achieved remission (HCC) 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HCC) Expected: 11/11/2023 (Approximate), Expires: 10/13/2024 [facility] Comment on above: Expected: 11/11/2023 (Approximate), Expi res: 10/13/2024 Start: 11-11-2023 End: 10-13-2024 Comprehensive metabolic 2000 panel - Serum or Plasma COMPREHENSIVE METABOLIC PANEL Lab Routine Multiple myeloma not having achieved remission (HCC) 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HCC) Expected: 11/11/2023 (Approximate), Expires: 10/13/2024 [facility] Comment on above: Expected: 11/11/2023 (Approximate), Expi res: 10/13/2024 Start: 11-11-2023 End: 02-10-2024 KAPPA/ORTIZ,FREE,SER KAPPA/ORTIZ,FREE,SER Lab Routine Multiple myeloma not having achieved remission (HCC) 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HCC) Expected: 11/11/2023 (Approximate), Expires: 02/10/2024 [facility] Comment on above: Expected: 11/11/2023 (Approximate), Expi res: 02/10/2024 Start: 11-11-2023 End: 10-13-2024 Lactate dehydrogenase [Enzymatic activity/volume] in Serum or Plasma LACTATE DEHYDROGENASE Lab Routine Multiple myeloma not having achieved remission (HCC) 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HCC) Expected: 11/11/2023 (Approximate), Expires: 10/13/2024 [facility] Comment on above: Expected: 11/11/2023 (Approximate), Expi res: 10/13/2024 Start: 11-11-2023 End: 10-13-2024 MONOCLONAL PROTEIN, SERUM (BLOOD) MONOCLONAL PROTEIN, SERUM (BLOOD) Lab Routine Multiple myeloma not having achieved remission (HCC) 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HCC) Expected: 11/11/2023 (Approximate), Expires: 10/13/2024 [facility] Comment on above: Expected: 11/11/2023 (Approximate), Expi res: 10/13/2024 Start: 11-11-2023 End: 10-13-2024 Phosphate [Mass/volume] in Serum or Plasma PHOSPHORUS INORGANIC Lab Routine Multiple myeloma not having achieved remission (HCC) 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HCC) Expected: 11/11/2023 (Approximate), Expires: 10/13/2024 [facility] Comment on above: Expected: 11/11/2023 (Approximate), Expi res: 10/13/2024 Start: 11-11-2023 End: 10-13-2024 PROTEIN ELECTROPHORESIS SERUM W/INTERP PROTEIN ELECTROPHORESIS SERUM W/INTERP Lab Routine Multiple myeloma not having achieved remission (HCC) 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HCC) Expected: 11/11/2023 (Approximate), Expires: 10/13/2024 [facility] Comment on above: Expected: 11/11/2023 (Approximate), Expi res: 10/13/2024 Start: 11-11-2023 End: 10-13-2024 Urate [Mass/volume] in Serum or Plasma URIC ACID Lab Routine Multiple myeloma not having achieved remission (HCC) 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HCC) Expected: 11/11/2023 (Approximate), Expires: 10/13/2024 [facility] Comment on above: Expected: 11/11/2023 (Approximate), Expi res: 10/13/2024 Start: 11-03-2023 End: 11-03-2023 Follow-up encounter 11/03/2023 2:15 PM EDT Visit (SP) Office Hematology/Oncology [address] [place] [address] Vimal Crandall MD [address] [place] [address] 4 week follow up lab Hematology/Oncology Comment on above: 4 week follow up lab Start: 11-03-2023 End: 11-03-2023 Patient encounter procedure 11/03/2023 2:00 PM EDT Office Visit [facility] [address] [place] [address] 4 week follow up lab [facility] Comment on above: 4 week follow up lab Start: 10-25-2023 End: 10-25-2023 Patient encounter procedure 10/25/2023 3:00 PM EDT Appointment [facility] [address] [place], [place] [address] [address] MRI of Liver w/wo [facility] Comment on above: MRI of Liver w/wo Start: 10-16-2023 End: 10-14-2024 MR Liver WO and W contrast IV MRI LIVER (EOVIST) WO/W IVCON Radiology Routine Hepatocellular carcinoma (HCC) Expected: 10/16/2023 (Approximate), Expires: 10/14/2024 [facility] Work Phone: Comment on above: Expected: 10/16/2023 (Approximate), Expi res: 10/14/2024 Start: 10-14-2023 End: 10-14-2023 Follow-up encounter 10/14/2023 8:45 AM EDT Visit (SP) Office Hematology/Oncology [address] [place] [address] Vimal Crandall MD [address] [place] [address] follow up after MRI and [facility] Hematology/Oncology Comment on above: follow up after MRI and [facility] Start: 10-14-2023 End: 10-14-2023 Patient encounter procedure 10/14/2023 8:30 AM EDT Office Visit [facility] [address] [place] [address] [place] [address] follow up after MRI and [facility] Comment on above: follow up after MRI and [facility]X Start: 10-13-2023 End: 01-12-2024 [id number] [Mass/volume] in Serum or Plasma ALPHA FETOPROTEIN Lab Routine Hepatocellular carcinoma (HCC) Expected: 10/13/2023 (Approximate), Expires: 01/12/2024 [facility] Comment on above: Expected: 10/13/2023 (Approximate), Expi res: 01/12/2024 Start: 10-13-2023 End: 09-14-2024 [id number] [Mass/volume] in Serum or Plasma B2 MICROGLOBULIN Lab Routine Multiple myeloma not having achieved remission (HCC) Expected: 10/13/2023 (Approximate), Expires: 09/14/2024 [facility] Comment on above: Expected: 10/13/2023 (Approximate), Expi res: 09/14/2024 Start: 10-13-2023 End: 09-14-2024 Calcium.ionized [Moles/volume] in Blood CALCIUM, IONIZED Lab Routine Multiple myeloma not having achieved remission (HCC) Expected: 10/13/2023 (Approximate), Expires: 09/14/2024 [facility] Comment on above: Expected: 10/13/2023 (Approximate), Expi res: 09/14/2024 Start: 10-13-2023 End: 09-14-2024 CBC W Auto Differential panel - Blood COMPLETE BLOOD COUNT AND DIFFERENTIAL Lab Routine Multiple myeloma not having achieved remission (HCC) Expected: 10/13/2023 (Approximate), Expires: 09/14/2024 [facility] Comment on above: Expected: 10/13/2023 (Approximate), Expi res: 09/14/2024 Start: 10-13-2023 End: 09-14-2024 Comprehensive metabolic 2000 panel - Serum or Plasma COMPREHENSIVE METABOLIC PANEL Lab Routine Multiple myeloma not having achieved remission (HCC) Expected: 10/13/2023 (Approximate), Expires: 09/14/2024 [facility] Comment on above: Expected: 10/13/2023 (Approximate), Expi res: 09/14/2024 Start: 10-13-2023 End: 01-12-2024 KAPPA/ORTIZ,FREE,SER KAPPA/ORTIZ,FREE,SER Lab Routine Multiple myeloma not having achieved remission (HCC) Expected: 10/13/2023 (Approximate), Expires: 01/12/2024 [facility] Comment on above: Expected: 10/13/2023 (Approximate), Expi res: 01/12/2024 Start: 10-13-2023 End: 09-14-2024 Lactate dehydrogenase [Enzymatic activity/volume] in Serum or Plasma LACTATE DEHYDROGENASE Lab Routine Multiple myeloma not having achieved remission (HCC) Expected: 10/13/2023 (Approximate), Expires: 09/14/2024 [facility] Comment on above: Expected: 10/13/2023 (Approximate), Expi res: 09/14/2024 Start: 10-13-2023 End: 09-14-2024 MONOCLONAL PROTEIN, SERUM (BLOOD) MONOCLONAL PROTEIN, SERUM (BLOOD) Lab Routine Multiple myeloma not having achieved remission (HCC) Expected: 10/13/2023 (Approximate), Expires: 09/14/2024 [facility] Comment on above: Expected: 10/13/2023 (Approximate), Expi res: 09/14/2024 Start: 10-13-2023 End: 09-14-2024 Phosphate [Mass/volume] in Serum or Plasma PHOSPHORUS INORGANIC Lab Routine Multiple myeloma not having achieved remission (HCC) Expected: 10/13/2023 (Approximate), Expires: 09/14/2024 [facility] Comment on above: Expected: 10/13/2023 (Approximate), Expi res: 09/14/2024 Start: 10-13-2023 End: 09-14-2024 PROTEIN ELECTROPHORESIS SERUM W/INTERP PROTEIN ELECTROPHORESIS SERUM W/INTERP Lab Routine Multiple myeloma not having achieved remission (HCC) Expected: 10/13/2023 (Approximate), Expires: 09/14/2024 [facility] Comment on above: Expected: 10/13/2023 (Approximate), Expi res: 09/14/2024 Start: 10-13-2023 End: 09-14-2024 Urate [Mass/volume] in Serum or Plasma URIC ACID Lab Routine Multiple myeloma not having achieved remission (HCC) Expected: 10/13/2023 (Approximate), Expires: 09/14/2024 [facility] Comment on above: Expected: 10/13/2023 (Approximate), Expi res: 09/14/2024 Start: 10-06-2023 End: 10-06-2023 Admission to same day surgery center 10/06/2023 10:30 AM EDT - 10/06/2023 11:30 AM EDT Surgery [facility] [id number] [place] [address] [place] [address] [place] [address] DIAGNOSTIC BONE MARROW BIOPSY(IES) [facility] Comment on above: DIAGNOSTIC BONE MARROW BIOPSY(IES) Start: 10-06-2023 End: 10-06-2023 Diagnostic bone marrow biopsies DIAGNOSTIC BONE MARROW BIOPSY(IES) Multiple myeloma not having achieved remission (HCC) 10/06/2023 10:30 AM EDT [facility] Start: 10-06-2023 Subsequent hospital visit by physician 10/06/2023 10:30 AM EDT Hospital Encounter [facility] [address] [place] [address] [place] [address], [address] [address] Multiple myeloma not having achieved remission (HCC) [C90.00] [facility] Comment on above: Multiple myeloma not having achieved rem ission (HCC) [C90.00] Start: 09-19-2023 End: 09-19-2023 Patient encounter procedure 09/19/2023 11:40 AM EDT Appointment [facility] [address] [place], [place] [id number] MRI of Liver w/wo [facility] Comment on above: MRI of Liver w/wo Start: 09-15-2023 End: 09-15-2023 Follow-up encounter 09/15/2023 2:30 PM EDT Visit (SP) Office Hematology/Oncology [address] [place] [address] [place] [address] Vimal Crandall MD [address] [place] [address] 4 week follow up lab Hematology/Oncology Comment on above: 4 week follow up lab Start: 09-15-2023 End: 09-15-2023 Patient encounter procedure 09/15/2023 2:15 PM EDT Office Visit [facility] [address] [place] [address] 4 week follow up lab [facility] Comment on above: 4 week follow up lab Start: 09-15-2023 End: 08-17-2024 [id number] [Mass/volume] in Serum or Plasma B2 MICROGLOBULIN Lab Routine Multiple myeloma not having achieved remission (HCC) 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), type 2 with complications (HCC) Hepatocellular carcinoma (HCC) Stage 3 chronic kidney disease, unspecified whether stage 3a or 3b CKD (HCC) Expected: 09/15/2023 (Approximate), Expires: 08/17/2024 [facility] Work Phone: Comment on above: Expected: 09/15/2023 (Approximate), Expi res: 08/17/2024 Start: 09-15-2023 End: 08-17-2024 Calcium.ionized [Moles/volume] in Blood CALCIUM, IONIZED Lab Routine Multiple myeloma not having achieved remission (HCC) 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), type 2 with complications (HCC) Hepatocellular carcinoma (HCC) Stage 3 chronic kidney disease, unspecified whether stage 3a or 3b CKD (HCC) Expected: 09/15/2023 (Approximate), Expires: 08/17/2024 [facility] Work Phone: Comment on above: Expected: 09/15/2023 (Approximate), Expi res: 08/17/2024 Start: 09-15-2023 End: 08-17-2024 CBC W Auto Differential panel - Blood [facility] Work Phone: Comment on above: Expected: 09/15/2023 (Approximate), Expi res: 08/17/2024 Expected: 09/15/2023 , Expires: 12/15/2023 Start: 09-15-2023 End: 08-17-2024 Comprehensive metabolic 2000 panel - Serum or Plasma COMPREHENSIVE METABOLIC PANEL Lab Routine Multiple myeloma not having achieved remission (HCC) 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), type 2 with complications (HCC) Hepatocellular carcinoma (HCC) Stage 3 chronic kidney disease, unspecified whether stage 3a or 3b CKD (HCC) Expected: 09/15/2023 (Approximate), Expires: 08/17/2024 [facility] Work Phone: Comment on above: Expected: 09/15/2023 (Approximate), Expi res: 08/17/2024 Start: 09-15-2023 End: 12-15-2023 KAPPA/ORTIZ,FREE,SER KAPPA/ORTIZ,FREE,SER Lab Routine Multiple myeloma not having achieved remission (HCC) 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), type 2 with complications (HCC) Hepatocellular carcinoma (HCC) Stage 3 chronic kidney disease, unspecified whether stage 3a or 3b CKD (HCC) Expected: 09/15/2023 (Approximate), Expires: 12/15/2023 [facility] Work Phone: Comment on above: Expected: 09/15/2023 (Approximate), Expi res: 12/15/2023 Start: 09-15-2023 End: 08-17-2024 Lactate dehydrogenase [Enzymatic activity/volume] in Serum or Plasma LACTATE DEHYDROGENASE Lab Routine Multiple myeloma not having achieved remission (HCC) 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), type 2 with complications (HCC) Hepatocellular carcinoma (HCC) Stage 3 chronic kidney disease, unspecified whether stage 3a or 3b CKD (HCC) Expected: 09/15/2023 (Approximate), Expires: 08/17/2024 [facility] Work Phone: Comment on above: Expected: 09/15/2023 (Approximate), Expi res: 08/17/2024 Start: 09-15-2023 End: 08-17-2024 MONOCLONAL PROTEIN, SERUM (BLOOD) MONOCLONAL PROTEIN, SERUM (BLOOD) Lab Routine Multiple myeloma not having achieved remission (HCC) 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), type 2 with complications (HCC) Hepatocellular carcinoma (HCC) Stage 3 chronic kidney disease, unspecified whether stage 3a or 3b CKD (HCC) Expected: 09/15/2023 (Approximate), Expires: 08/17/2024 [facility] Work Phone: Comment on above: Expected: 09/15/2023 (Approximate), Expi res: 08/17/2024 Start: 09-15-2023 End: 08-17-2024 Phosphate [Mass/volume] in Serum or Plasma PHOSPHORUS INORGANIC Lab Routine Multiple myeloma not having achieved remission (HCC) 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), type 2 with complications (HCC) Hepatocellular carcinoma (HCC) Stage 3 chronic kidney disease, unspecified whether stage 3a or 3b CKD (HCC) Expected: 09/15/2023 (Approximate), Expires: 08/17/2024 [facility] Work Phone: Comment on above: Expected: 09/15/2023 (Approximate), Expi res: 08/17/2024 Start: 09-15-2023 End: 08-17-2024 PROTEIN ELECTROPHORESIS SERUM W/INTERP PROTEIN ELECTROPHORESIS SERUM W/INTERP Lab Routine Multiple myeloma not having achieved remission (HCC) 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), type 2 with complications (HCC) Hepatocellular carcinoma (HCC) Stage 3 chronic kidney disease, unspecified whether stage 3a or 3b CKD (HCC) Expected: 09/15/2023 (Approximate), Expires: 08/17/2024 [facility] Work Phone: Comment on above: Expected: 09/15/2023 (Approximate), Expi res: 08/17/2024 Start: 09-15-2023 End: 08-17-2024 Urate [Mass/volume] in Serum or Plasma URIC ACID Lab Routine Multiple myeloma not having achieved remission (HCC) 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), type 2 with complications (HCC) Hepatocellular carcinoma (HCC) Stage 3 chronic kidney disease, unspecified whether stage 3a or 3b CKD (HCC) Expected: 09/15/2023 (Approximate), Expires: 08/17/2024 [facility] Work Phone: Comment on above: Expected: 09/15/2023 (Approximate), Expi res: 08/17/2024 Start: 08-17-2023 Hemoglobin A1c measurement [facility] Start: 08-15-2023 End: 07-12-2024 [id number] [Mass/volume] in Serum or Plasma B2 MICROGLOBULIN B Lab Routine Multiple myeloma not having achieved remission (HCC) Expected: 08/15/2023 (Approximate), Expires: 07/12/2024 [facility] Work Phone: Comment on above: Expected: 08/15/2023 (Approximate), Expi res: 07/12/2024 Start: 08-15-2023 End: 07-12-2024 Calcium.ionized [Moles/volume] in Blood CALCIUM IONIZED BLOOD Lab Routine Multiple myeloma not having achieved remission (HCC) Expected: 08/15/2023 (Approximate), Expires: 07/12/2024 [facility] Work Phone: Comment on above: Expected: 08/15/2023 (Approximate), Expi res: 07/12/2024 Start: 08-15-2023 End: 07-12-2024 CBC W Auto Differential panel - Blood CBC + DIFF Lab Routine Multiple myeloma not having achieved remission (HCC) Expected: 08/15/2023 (Approximate), Expires: 07/12/2024 [facility] Work Phone: Comment on above: Expected: 08/15/2023 (Approximate), Expi res: 07/12/2024 Start: 08-15-2023 End: 07-12-2024 Comprehensive metabolic 2000 panel - Serum or Plasma COMP METABOLIC PANEL Lab Routine Multiple myeloma not having achieved remission (HCC) Expected: 08/15/2023 (Approximate), Expires: 07/12/2024 [facility] Work Phone: Comment on above: Expected: 08/15/2023 (Approximate), Expi res: 07/12/2024 Start: 08-15-2023 End: 11-14-2023 KAPPA/ORTIZ,FREE,SER KAPPA/ORTIZ,FREE,SER Lab Routine Multiple myeloma not having achieved remission (HCC) Expected: 08/15/2023 (Approximate), Expires: 11/14/2023 [facility] Work Phone: Comment on above: Expected: 08/15/2023 (Approximate), Expi res: 11/14/2023 Start: 08-15-2023 End: 07-12-2024 Lactate dehydrogenase [Enzymatic activity/volume] in Serum or Plasma LD LACTATE DEHYDRO Lab Routine Multiple myeloma not having achieved remission (HCC) Expected: 08/15/2023 (Approximate), Expires: 07/12/2024 [facility] Work Phone: Comment on above: Expected: 08/15/2023 (Approximate), Expi res: 07/12/2024 Start: 08-15-2023 End: 07-12-2024 MONOCLONAL PROTEIN, SERUM (BLOOD) MONOCLONAL PROTEIN, SERUM (BLOOD) Lab Routine Multiple myeloma not having achieved remission (HCC) Expected: 08/15/2023 (Approximate), Expires: 07/12/2024 [facility] Work Phone: Comment on above: Expected: 08/15/2023 (Approximate), Expi res: 07/12/2024 Start: 08-15-2023 End: 07-12-2024 Phosphate [Mass/volume] in Serum or Plasma PHOSPHORUS INORGANIC Lab Routine Multiple myeloma not having achieved remission (HCC) Expected: 08/15/2023 (Approximate), Expires: 07/12/2024 [facility] Work Phone: Comment on above: Expected: 08/15/2023 (Approximate), Expi res: 07/12/2024 Start: 08-15-2023 End: 07-12-2024 PROTEIN ELECTROPHORESIS SERUM W/INTERP PROTEIN ELECTROPHORESIS SERUM W/INTERP Lab Routine Multiple myeloma not having achieved remission (HCC) Expected: 08/15/2023 (Approximate), Expires: 07/12/2024 [facility] Work Phone: Comment on above: Expected: 08/15/2023 (Approximate), Expi res: 07/12/2024 Start: 08-15-2023 End: 07-12-2024 Urate [Mass/volume] in Serum or Plasma URIC ACID BLOOD Lab Routine Multiple myeloma not having achieved remission (HCC) Expected: 08/15/2023 (Approximate), Expires: 07/12/2024 [facility] Work Phone: Comment on above: Expected: 08/15/2023 (Approximate), Expi res: 07/12/2024 Start: 08-05-2023 BP CONTROLLED (<130/80) BP CONTROLLED (<130/80) [facility] Start: 07-13-2023 End: 06-15-2024 [id number] [Mass/volume] in Serum or Plasma B2 MICROGLOBULIN B Lab Routine Multiple myeloma not having achieved remission (HCC) 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), type 2 with complications (HCC) Hepatocellular carcinoma (HCC) Expected: 07/13/2023 (Approximate), Expires: 06/15/2024 [facility] Work Phone: Comment on above: Expected: 07/13/2023 (Approximate), Expi res: 06/15/2024 Start: 07-13-2023 End: 06-15-2024 Calcium.ionized [Moles/volume] in Blood CALCIUM IONIZED BLOOD Lab Routine Multiple myeloma not having achieved remission (HCC) 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), type 2 with complications (HCC) Hepatocellular carcinoma (HCC) Expected: 07/13/2023 (Approximate), Expires: 06/15/2024 [facility] Work Phone: Comment on above: Expected: 07/13/2023 (Approximate), Expi res: 06/15/2024 Start: 07-13-2023 End: 06-15-2024 CBC W Auto Differential panel - Blood CBC + DIFF Lab Routine Multiple myeloma not having achieved remission (HCC) 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), type 2 with complications (HCC) Hepatocellular carcinoma (HCC) Expected: 07/13/2023 (Approximate), Expires: 06/15/2024 [facility] Work Phone: Comment on above: Expected: 07/13/2023 (Approximate), Expi res: 06/15/2024 Start: 07-13-2023 End: 06-15-2024 Comprehensive metabolic 2000 panel - Serum or Plasma COMP METABOLIC PANEL Lab Routine Multiple myeloma not having achieved remission (HCC) 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), type 2 with complications (HCC) Hepatocellular carcinoma (HCC) Expected: 07/13/2023 (Approximate), Expires: 06/15/2024 [facility] Work Phone: Comment on above: Expected: 07/13/2023 (Approximate), Expi res: 06/15/2024 Start: 07-13-2023 End: 10-12-2023 KAPPA/ORTIZ,FREE,SER KAPPA/ORTIZ,FREE,SER Lab Routine Multiple myeloma not having achieved remission (HCC) 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), type 2 with complications (HCC) Hepatocellular carcinoma (HCC) Expected: 07/13/2023 (Approximate), Expires: 10/12/2023 [facility] Work Phone: Comment on above: Expected: 07/13/2023 (Approximate), Expi res: 10/12/2023 Start: 07-13-2023 End: 06-15-2024 Lactate dehydrogenase [Enzymatic activity/volume] in Serum or Plasma LD LACTATE DEHYDRO Lab Routine Multiple myeloma not having achieved remission (HCC) 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), type 2 with complications (HCC) Hepatocellular carcinoma (HCC) Expected: 07/13/2023 (Approximate), Expires: 06/15/2024 [facility] Work Phone: Comment on above: Expected: 07/13/2023 (Approximate), Expi res: 06/15/2024 Start: 07-13-2023 End: 06-15-2024 MONOCLONAL PROTEIN, SERUM (BLOOD) MONOCLONAL PROTEIN, SERUM (BLOOD) Lab Routine Multiple myeloma not having achieved remission (HCC) 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), type 2 with complications (HCC) Hepatocellular carcinoma (HCC) Expected: 07/13/2023 (Approximate), Expires: 06/15/2024 [facility] Work Phone: Comment on above: Expected: 07/13/2023 (Approximate), Expi res: 06/15/2024 Start: 07-13-2023 End: 06-15-2024 Phosphate [Mass/volume] in Serum or Plasma PHOSPHORUS INORGANIC Lab Routine Multiple myeloma not having achieved remission (HCC) 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), type 2 with complications (HCC) Hepatocellular carcinoma (HCC) Expected: 07/13/2023 (Approximate), Expires: 06/15/2024 [facility] Work Phone: Comment on above: Expected: 07/13/2023 (Approximate), Expi res: 06/15/2024 Start: 07-13-2023 End: 06-15-2024 PROTEIN ELECTROPHORESIS SERUM W/INTERP PROTEIN ELECTROPHORESIS SERUM W/INTERP Lab Routine Multiple myeloma not having achieved remission (HCC) 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), type 2 with complications (HCC) Hepatocellular carcinoma (HCC) Expected: 07/13/2023 (Approximate), Expires: 06/15/2024 [facility] Work Phone: Comment on above: Expected: 07/13/2023 (Approximate), Expi res: 06/15/2024 Start: 07-13-2023 End: 06-15-2024 Urate [Mass/volume] in Serum or Plasma URIC ACID BLOOD Lab Routine Multiple myeloma not having achieved remission (HCC) 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), type 2 with complications (HCC) Hepatocellular carcinoma (HCC) Expected: 07/13/2023 (Approximate), Expires: 06/15/2024 [facility] Work Phone: Comment on above: Expected: 07/13/2023 (Approximate), Expi res: 06/15/2024 Start: 06-23-2023 End: 06-23-2023 Patient encounter procedure 06/23/2023 9:30 AM EST Office Visit [facility] [id number] [place] [id number] Orlin Lorenzana, [address] [facility] [address] [place] [address] Left hand pain (Primary Dx) [facility] Comment on above: Left hand pain (Primary Dx) Start: 06-09-2023 BP CONTROLLED (<130/80) BP CONTROLLED (<130/80) [facility] Start: 05-24-2023 End: 03-22-2024 Mri abdomen w/o & w/contrast material MRI LIVER WO/W IVCON Radiology Routine Hepatocellular carcinoma (HCC) Expected: 05/24/2023 (Approximate), Expires: 03/22/2024 [facility] Work Phone: Comment on above: Expected: 05/24/2023 (Approximate), Expi res: 03/22/2024 Start: 05-09-2023 Advance Directive Discussion Advance Directive Discussion [facility] Start: 04-20-2023 End: 04-16-2024 [id number] [Mass/volume] in Serum or Plasma B2 MICROGLOBULIN B Lab Routine Multiple myeloma not having achieved remission (HCC) Expected: 04/20/2023 (Approximate), Expires: 04/16/2024 [facility] Work Phone: Comment on above: Expected: 04/20/2023 (Approximate), Expi res: 04/16/2024 Start: 04-20-2023 End: 04-16-2024 Calcium.ionized [Moles/volume] in Blood CALCIUM IONIZED BLOOD Lab Routine Multiple myeloma not having achieved remission (HCC) Expected: 04/20/2023 (Approximate), Expires: 04/16/2024 [facility] Work Phone: Comment on above: Expected: 04/20/2023 (Approximate), Expi res: 04/16/2024 Start: 04-20-2023 End: 04-16-2024 CBC W Auto Differential panel - Blood CBC + DIFF Lab Routine Multiple myeloma not having achieved remission (HCC) Expected: 04/20/2023 (Approximate), Expires: 04/16/2024 [facility] Work Phone: Comment on above: Expected: 04/20/2023 (Approximate), Expi res: 04/16/2024 Start: 04-20-2023 End: 04-16-2024 Comprehensive metabolic 2000 panel - Serum or Plasma COMP METABOLIC PANEL Lab Routine Multiple myeloma not having achieved remission (HCC) Expected: 04/20/2023 (Approximate), Expires: 04/16/2024 [facility] Work Phone: Comment on above: Expected: 04/20/2023 (Approximate), Expi res: 04/16/2024 Start: 04-20-2023 End: 07-20-2023 KAPPA/ORTIZ,FREE,SER KAPPA/ORTIZ,FREE,SER Lab Routine Multiple myeloma not having achieved remission (HCC) Expected: 04/20/2023 (Approximate), Expires: 07/20/2023 [facility] Work Phone: Comment on above: Expected: 04/20/2023 (Approximate), Expi res: 07/20/2023 Start: 04-20-2023 End: 04-16-2024 Lactate dehydrogenase [Enzymatic activity/volume] in Serum or Plasma LD LACTATE DEHYDRO Lab Routine Multiple myeloma not having achieved remission (HCC) Expected: 04/20/2023 (Approximate), Expires: 04/16/2024 [facility] Work Phone: Comment on above: Expected: 04/20/2023 (Approximate), Expi res: 04/16/2024 Start: 04-20-2023 End: 04-16-2024 MONOCLONAL PROTEIN, SERUM (BLOOD) MONOCLONAL PROTEIN, SERUM (BLOOD) Lab Routine Multiple myeloma not having achieved remission (HCC) Expected: 04/20/2023 (Approximate), Expires: 04/16/2024 [facility] Work Phone: Comment on above: Expected: 04/20/2023 (Approximate), Expi res: 04/16/2024 Start: 04-20-2023 End: 04-16-2024 Phosphate [Mass/volume] in Serum or Plasma PHOSPHORUS INORGANIC Lab Routine Multiple myeloma not having achieved remission (HCC) Expected: 04/20/2023 (Approximate), Expires: 04/16/2024 [facility] Work Phone: Comment on above: Expected: 04/20/2023 (Approximate), Expi res: 04/16/2024 Start: 04-20-2023 End: 04-16-2024 PROTEIN ELECTROPHORESIS SERUM W/INTERP PROTEIN ELECTROPHORESIS SERUM W/INTERP Lab Routine Multiple myeloma not having achieved remission (HCC) Expected: 04/20/2023 (Approximate), Expires: 04/16/2024 [facility] Work Phone: Comment on above: Expected: 04/20/2023 (Approximate), Expi res: 04/16/2024 Start: 04-20-2023 End: 04-16-2024 Urate [Mass/volume] in Serum or Plasma URIC ACID BLOOD Lab Routine Multiple myeloma not having achieved remission (HCC) Expected: 04/20/2023 (Approximate), Expires: 04/16/2024 [facility] Work Phone: Comment on above: Expected: 04/20/2023 (Approximate), Expi res: 04/16/2024 Start: 03-16-2023 End: 02-17-2024 [id number]-[id number] [Mass/volume] in Serum or Plasma B2 MICROGLOBULIN B Lab Routine Multiple myeloma not having achieved remission (HCC) Expected: 03/16/2023 (Approximate), Expires: 02/17/2024 [facility] Work Phone: Comment on above: Expected: 03/16/2023 (Approximate), Expi res: 02/17/2024 Start: 03-16-2023 End: 02-17-2024 Calcium.ionized [Moles/volume] in Blood CALCIUM IONIZED BLOOD Lab Routine Multiple myeloma not having achieved remission (HCC) Expected: 03/16/2023 (Approximate), Expires: 02/17/2024 [facility] Work Phone: Comment on above: Expected: 03/16/2023 (Approximate), Expi res: 02/17/2024 Start: 03-16-2023 End: 02-17-2024 CBC W Auto Differential panel - Blood CBC + DIFF Lab Routine Multiple myeloma not having achieved remission (HCC) Expected: 03/16/2023 (Approximate), Expires: 02/17/2024 [facility] Work Phone: Comment on above: Expected: 03/16/2023 (Approximate), Expi res: 02/17/2024 Start: 03-16-2023 End: 02-17-2024 Comprehensive metabolic 2000 panel - Serum or Plasma COMP METABOLIC PANEL Lab Routine Multiple myeloma not having achieved remission (HCC) Expected: 03/16/2023 (Approximate), Expires: 02/17/2024 [facility] Work Phone: Comment on above: Expected: 03/16/2023 (Approximate), Expi res: 02/17/2024 Start: 03-16-2023 End: 05-16-2023 KAPPA/ORTIZ,FREE,SER KAPPA/ORTIZ,FREE,SER Lab Routine Multiple myeloma not having achieved remission (HCC) Expected: 03/16/2023 (Approximate), Expires: 05/16/2023 [facility] Work Phone: Comment on above: Expected: 03/16/2023 (Approximate), Expi res: 05/16/2023 Start: 03-16-2023 End: 02-17-2024 Lactate dehydrogenase [Enzymatic activity/volume] in Serum or Plasma LD LACTATE DEHYDRO Lab Routine Multiple myeloma not having achieved remission (HCC) Expected: 03/16/2023 (Approximate), Expires: 02/17/2024 [facility] Work Phone: Comment on above: Expected: 03/16/2023 (Approximate), Expi res: 02/17/2024 Start: 03-16-2023 End: 02-17-2024 MONOCLONAL PROTEIN, SERUM (BLOOD) MONOCLONAL PROTEIN, SERUM (BLOOD) Lab Routine Multiple myeloma not having achieved remission (HCC) Expected: 03/16/2023 (Approximate), Expires: 02/17/2024 [facility] Work Phone: Comment on above: Expected: 03/16/2023 (Approximate), Expi res: 02/17/2024 Start: 03-16-2023 End: 02-17-2024 Phosphate [Mass/volume] in Serum or Plasma PHOSPHORUS INORGANIC Lab Routine Multiple myeloma not having achieved remission (HCC) Expected: 03/16/2023 (Approximate), Expires: 02/17/2024 [facility] Work Phone: Comment on above: Expected: 03/16/2023 (Approximate), Expi res: 02/17/2024 Start: 03-16-2023 End: 02-17-2024 PROTEIN ELECTROPHORESIS SERUM W/INTERP PROTEIN ELECTROPHORESIS SERUM W/INTERP Lab Routine Multiple myeloma not having achieved remission (HCC) Expected: 03/16/2023 (Approximate), Expires: 02/17/2024 [facility] Work Phone: Comment on above: Expected: 03/16/2023 (Approximate), Expi res: 02/17/2024 Start: 03-16-2023 End: 02-17-2024 Urate [Mass/volume] in Serum or Plasma URIC ACID BLOOD Lab Routine Multiple myeloma not having achieved remission (HCC) Expected: 03/16/2023 (Approximate), Expires: 02/17/2024 [facility] Work Phone: Comment on above: Expected: 03/16/2023 (Approximate), Expi res: 02/17/2024 Start: 02-23-2023 End: 02-17-2024 CBC W Auto Differential panel - Blood CBC + DIFF Lab Routine Multiple myeloma not having achieved remission (HCC) Expected: 02/23/2023 (Approximate), Expires: 02/17/2024 [facility] Work Phone: Comment on above: Expected: 02/23/2023 (Approximate), Expi res: 02/17/2024 Start: 02-16-2023 End: 04-18-2023 Fmjqo-9-Rouebnnxtph [Mass/volume] in Serum or Plasma ALPHA FETOPROTEIN BL Lab Routine Multiple myeloma not having achieved remission (HCC) Hepatocellular carcinoma (HCC) Expected: 02/16/2023 (Approximate), Expires: 04/18/2023 [facility] Work Phone: Comment on above: Expected: 02/16/2023 (Approximate), Expi res: 04/18/2023 Start: 02-16-2023 End: 01-20-2024 Mmde-2-Qarefmldhqakt [Mass/volume] in Serum or Plasma B2 MICROGLOBULIN B Lab Routine Multiple myeloma not having achieved remission (HCC) Expected: 02/16/2023 (Approximate), Expires: 01/20/2024 [facility] Work Phone: Comment on above: Expected: 02/16/2023 (Approximate), Expi res: 01/20/2024 Start: 02-16-2023 End: 01-20-2024 Calcium.ionized [Moles/volume] in Blood CALCIUM IONIZED BLOOD Lab Routine Multiple myeloma not having achieved remission (HCC) Expected: 02/16/2023 (Approximate), Expires: 01/20/2024 [facility] Work Phone: Comment on above: Expected: 02/16/2023 (Approximate), Expi res: 01/20/2024 Start: 02-16-2023 End: 01-20-2024 CBC W Auto Differential panel - Blood CBC + DIFF Lab Routine Multiple myeloma not having achieved remission (HCC) Expected: 02/16/2023 (Approximate), Expires: 01/20/2024 [facility] Work Phone: Comment on above: Expected: 02/16/2023 (Approximate), Expi res: 01/20/2024 Start: 02-16-2023 End: 01-20-2024 Comprehensive metabolic 2000 panel - Serum or Plasma COMP METABOLIC PANEL Lab Routine Multiple myeloma not having achieved remission (HCC) Expected: 02/16/2023 (Approximate), Expires: 01/20/2024 [facility] Work Phone: Comment on above: Expected: 02/16/2023 (Approximate), Expi res: 01/20/2024 Start: 02-16-2023 End: 04-18-2023 KAPPA/ORTIZ,FREE,SER KAPPA/ORTIZ,FREE,SER Lab Routine Multiple myeloma not having achieved remission (HCC) Expected: 02/16/2023 (Approximate), Expires: 04/18/2023 [facility] Work Phone: Comment on above: Expected: 02/16/2023 (Approximate), Expi res: 04/18/2023 Start: 02-16-2023 End: 01-20-2024 Lactate dehydrogenase [Enzymatic activity/volume] in Serum or Plasma LD LACTATE DEHYDRO Lab Routine Multiple myeloma not having achieved remission (HCC) Expected: 02/16/2023 (Approximate), Expires: 01/20/2024 [facility] Work Phone: Comment on above: Expected: 02/16/2023 (Approximate), Expi res: 01/20/2024 Start: 02-16-2023 End: 01-20-2024 MONOCLONAL PROTEIN, SERUM (BLOOD) MONOCLONAL PROTEIN, SERUM (BLOOD) Lab Routine Multiple myeloma not having achieved remission (HCC) Expected: 02/16/2023 (Approximate), Expires: 01/20/2024 [facility] Work Phone: Comment on above: Expected: 02/16/2023 (Approximate), Expi res: 01/20/2024 Start: 02-16-2023 End: 01-20-2024 Phosphate [Mass/volume] in Serum or Plasma PHOSPHORUS INORGANIC Lab Routine Multiple myeloma not having achieved remission (HCC) Expected: 02/16/2023 (Approximate), Expires: 01/20/2024 [facility] Work Phone: Comment on above: Expected: 02/16/2023 (Approximate), Expi res: 01/20/2024 Start: 02-16-2023 End: 01-20-2024 PROTEIN ELECTROPHORESIS SERUM W/INTERP PROTEIN ELECTROPHORESIS SERUM W/INTERP Lab Routine Multiple myeloma not having achieved remission (HCC) Expected: 02/16/2023 (Approximate), Expires: 01/20/2024 [facility] Work Phone: Comment on above: Expected: 02/16/2023 (Approximate), Expi res: 01/20/2024 Start: 02-16-2023 End: 01-20-2024 Urate [Mass/volume] in Serum or Plasma URIC ACID BLOOD Lab Routine Multiple myeloma not having achieved remission (HCC) Expected: 02/16/2023 (Approximate), Expires: 01/20/2024 [facility] Work Phone: Comment on above: Expected: 02/16/2023 (Approximate), Expi res: 01/20/2024 Start: 01-19-2023 End: 03-21-2023 25-hydroxyvitamin D3 [Mass/volume] in Serum or Plasma [facility] Work Phone: Comment on above: Expected: 01/19/2023, Expires: Start: 01-19-2023 End: 03-21-2023 ALBUMIN/CREAT RATIO RND UR [facility] Work Phone: Comment on above: Expected: 01/19/2023, Expires: Start: 01-19-2023 End: 03-21-2023 Ctbys-2-Zvtdlsfzvgb [Mass/volume] in Serum or Plasma ALPHA FETOPROTEIN BL Lab Routine Multiple myeloma not having achieved remission (HCC) Hepatocellular carcinoma (HCC) Stage 3 chronic kidney disease, unspecified whether stage 3a or 3b CKD (HCC) Platelets decreased (HCC) 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HCC) Expected: 01/19/2023 (Approximate), Expires: 03/21/2023 [facility] Work Phone: Comment on above: Expected: 01/19/2023 (Approximate), Expi res: 03/21/2023 Start: 01-19-2023 End: 12-23-2023 Zjts-3-Lsuywlbsdudym [Mass/volume] in Serum or Plasma B2 MICROGLOBULIN B Lab Routine Multiple myeloma not having achieved remission (HCC) Hepatocellular carcinoma (HCC) Stage 3 chronic kidney disease, unspecified whether stage 3a or 3b CKD (HCC) Platelets decreased (HCC) 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HCC) Expected: 01/19/2023 (Approximate), Expires: 12/23/2023 [facility] Work Phone: Comment on above: Expected: 01/19/2023 (Approximate), Expi res: 12/23/2023 Start: 01-19-2023 End: 03-21-2023 C peptide [Mass/volume] in Serum or Plasma [facility] Work Phone: Comment on above: Expected: 01/19/2023, Expires: Start: 01-19-2023 End: 12-23-2023 Calcium.ionized [Moles/volume] in Blood CALCIUM IONIZED BLOOD Lab Routine Multiple myeloma not having achieved remission (HCC) Hepatocellular carcinoma (HCC) Stage 3 chronic kidney disease, unspecified whether stage 3a or 3b CKD (HCC) Platelets decreased (HCC) 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HCC) Expected: 01/19/2023 (Approximate), Expires: 12/23/2023 [facility] Work Phone: Comment on above: Expected: 01/19/2023 (Approximate), Expi res: 12/23/2023 Start: 01-19-2023 End: 12-23-2023 CBC W Auto Differential panel - Blood CBC + DIFF Lab Routine Multiple myeloma not having achieved remission (HCC) Hepatocellular carcinoma (HCC) Stage 3 chronic kidney disease, unspecified whether stage 3a or 3b CKD (HCC) Platelets decreased (HCC) 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HCC) Expected: 01/19/2023 (Approximate), Expires: 12/23/2023 [facility] Work Phone: Comment on above: Expected: 01/19/2023 (Approximate), Expi res: 12/23/2023 Start: 01-19-2023 End: 12-23-2023 Comprehensive metabolic 2000 panel - Serum or Plasma COMP METABOLIC PANEL Lab Routine Multiple myeloma not having achieved remission (HCC) Hepatocellular carcinoma (HCC) Stage 3 chronic kidney disease, unspecified whether stage 3a or 3b CKD (HCC) Platelets decreased (HCC) 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HCC) Expected: 01/19/2023 (Approximate), Expires: 12/23/2023 [facility] Work Phone: Comment on above: Expected: 01/19/2023 (Approximate), Expi res: 12/23/2023 Start: 01-19-2023 End: 03-21-2023 KAPPA/ORTIZ,FREE,SER KAPPA/ORTIZ,FREE,SER Lab Routine Multiple myeloma not having achieved remission (HCC) Hepatocellular carcinoma (HCC) Stage 3 chronic kidney disease, unspecified whether stage 3a or 3b CKD (HCC) Platelets decreased (HCC) 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HCC) Expected: 01/19/2023 (Approximate), Expires: 03/21/2023 [facility] Work Phone: Comment on above: Expected: 01/19/2023 (Approximate), Expi res: 03/21/2023 Start: 01-19-2023 End: 12-23-2023 Lactate dehydrogenase [Enzymatic activity/volume] in Serum or Plasma LD LACTATE DEHYDRO Lab Routine Multiple myeloma not having achieved remission (HCC) Hepatocellular carcinoma (HCC) Stage 3 chronic kidney disease, unspecified whether stage 3a or 3b CKD (HCC) Platelets decreased (HCC) 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HCC) Expected: 01/19/2023 (Approximate), Expires: 12/23/2023 [facility] Work Phone: Comment on above: Expected: 01/19/2023 (Approximate), Expi res: 12/23/2023 Start: 01-19-2023 End: 03-21-2023 Lipid 1996 panel - Serum or Plasma [facility] Work Phone: Comment on above: Expected: 01/19/2023, Expires: Start: 01-19-2023 End: 12-23-2023 MONOCLONAL PROTEIN, SERUM (BLOOD) MONOCLONAL PROTEIN, SERUM (BLOOD) Lab Routine Multiple myeloma not having achieved remission (HCC) Hepatocellular carcinoma (HCC) Stage 3 chronic kidney disease, unspecified whether stage 3a or 3b CKD (HCC) Platelets decreased (HCC) 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HCC) Expected: 01/19/2023 (Approximate), Expires: 12/23/2023 [facility] Work Phone: Comment on above: Expected: 01/19/2023 (Approximate), Expi res: 12/23/2023 Start: 01-19-2023 End: 12-23-2023 Phosphate [Mass/volume] in Serum or Plasma PHOSPHORUS INORGANIC Lab Routine Multiple myeloma not having achieved remission (HCC) Hepatocellular carcinoma (HCC) Stage 3 chronic kidney disease, unspecified whether stage 3a or 3b CKD (HCC) Platelets decreased (HCC) 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HCC) Expected: 01/19/2023 (Approximate), Expires: 12/23/2023 [facility] Work Phone: Comment on above: Expected: 01/19/2023 (Approximate), Expi res: 12/23/2023 Start: 01-19-2023 End: 12-23-2023 PROTEIN ELECTROPHORESIS SERUM W/INTERP PROTEIN ELECTROPHORESIS SERUM W/INTERP Lab Routine Multiple myeloma not having achieved remission (HCC) Hepatocellular carcinoma (HCC) Stage 3 chronic kidney disease, unspecified whether stage 3a or 3b CKD (HCC) Platelets decreased (HCC) 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HCC) Expected: 01/19/2023 (Approximate), Expires: 12/23/2023 [facility] Work Phone: Comment on above: Expected: 01/19/2023 (Approximate), Expi res: 12/23/2023 Start: 01-19-2023 End: 12-23-2023 Urate [Mass/volume] in Serum or Plasma URIC ACID BLOOD Lab Routine Multiple myeloma not having achieved remission (HCC) Hepatocellular carcinoma (HCC) Stage 3 chronic kidney disease, unspecified whether stage 3a or 3b CKD (HCC) Platelets decreased (HCC) 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HCC) Expected: 01/19/2023 (Approximate), Expires: 12/23/2023 [facility] Work Phone: Comment on above: Expected: 01/19/2023 (Approximate), Expi res: 12/23/2023 Start: 01-07-2023 Covid-19 Vaccine () Covid-19 Vaccine () [facility] Start: 01-07-2023 Influenza vaccination [facility] Start: 12-28-2022 Hemoglobin A1c/Hemoglobin.total in Blood HBA1C [facility] Start: 12-22-2022 End: 02-21-2023 Ayvwe-9-Kgrfvvmaznm [Mass/volume] in Serum or Plasma ALPHA FETOPROTEIN BL Lab Routine Multiple myeloma not having achieved remission (HCC) Hepatocellular carcinoma (HCC) Platelets decreased (HCC) Type 2 diabetes (HCC) Expected: 12/22/2022 (Approximate), Expires: 02/21/2023 [facility] Work Phone: Comment on above: Expected: 12/22/2022 (Approximate), Expi res: 02/21/2023 Start: 12-22-2022 End: 11-25-2023 Mobu-1-Zztsogccrinoc [Mass/volume] in Serum or Plasma B2 MICROGLOBULIN B Lab Routine Multiple myeloma not having achieved remission (HCC) Hepatocellular carcinoma (HCC) Platelets decreased (HCC) Type 2 diabetes (HCC) Expected: 12/22/2022 (Approximate), Expires: 11/25/2023 [facility] Work Phone: Comment on above: Expected: 12/22/2022 (Approximate), Expi res: 11/25/2023 Start: 12-22-2022 End: 11-25-2023 Calcium.ionized [Moles/volume] in Blood CALCIUM IONIZED BLOOD Lab Routine Multiple myeloma not having achieved remission (HCC) Hepatocellular carcinoma (HCC) Platelets decreased (HCC) Type 2 diabetes (HCC) Expected: 12/22/2022 (Approximate), Expires: 11/25/2023 [facility] Work Phone: Comment on above: Expected: 12/22/2022 (Approximate), Expi res: 11/25/2023 Start: 12-22-2022 End: 11-25-2023 CBC W Auto Differential panel - Blood CBC + DIFF Lab Routine Multiple myeloma not having achieved remission (HCC) Hepatocellular carcinoma (HCC) Platelets decreased (HCC) Type 2 diabetes (HCC) Expected: 12/22/2022 (Approximate), Expires: 11/25/2023 [facility] Work Phone: Comment on above: Expected: 12/22/2022 (Approximate), Expi res: 11/25/2023 Start: 12-22-2022 End: 11-25-2023 Comprehensive metabolic 2000 panel - Serum or Plasma COMP METABOLIC PANEL Lab Routine Multiple myeloma not having achieved remission (HCC) Hepatocellular carcinoma (HCC) Platelets decreased (HCC) Type 2 diabetes (HCC) Expected: 12/22/2022 (Approximate), Expires: 11/25/2023 [facility] Work Phone: Comment on above: Expected: 12/22/2022 (Approximate), Expi res: 11/25/2023 Start: 12-22-2022 End: 02-21-2023 KAPPA/ORTIZ,FREE,SER KAPPA/ORTIZ,FREE,SER Lab Routine Multiple myeloma not having achieved remission (HCC) Hepatocellular carcinoma (HCC) Platelets decreased (HCC) Type 2 diabetes (HCC) Expected: 12/22/2022 (Approximate), Expires: 02/21/2023 [facility] Work Phone: Comment on above: Expected: 12/22/2022 (Approximate), Expi res: 02/21/2023 Start: 12-22-2022 End: 11-25-2023 Lactate dehydrogenase [Enzymatic activity/volume] in Serum or Plasma LD LACTATE DEHYDRO Lab Routine Multiple myeloma not having achieved remission (HCC) Hepatocellular carcinoma (HCC) Platelets decreased (HCC) Type 2 diabetes (HCC) Expected: 12/22/2022 (Approximate), Expires: 11/25/2023 [facility] Work Phone: Comment on above: Expected: 12/22/2022 (Approximate), Expi res: 11/25/2023 Start: 12-22-2022 End: 11-25-2023 MONOCLONAL PROTEIN, SERUM (BLOOD) MONOCLONAL PROTEIN, SERUM (BLOOD) Lab Routine Multiple myeloma not having achieved remission (HCC) Hepatocellular carcinoma (HCC) Platelets decreased (HCC) Type 2 diabetes (HCC) Expected: 12/22/2022 (Approximate), Expires: 11/25/2023 [facility] Work Phone: Comment on above: Expected: 12/22/2022 (Approximate), Expi res: 11/25/2023 Start: 12-22-2022 End: 11-25-2023 Phosphate [Mass/volume] in Serum or Plasma PHOSPHORUS INORGANIC Lab Routine Multiple myeloma not having achieved remission (HCC) Hepatocellular carcinoma (HCC) Platelets decreased (HCC) Type 2 diabetes (HCC) Expected: 12/22/2022 (Approximate), Expires: 11/25/2023 [facility] Work Phone: Comment on above: Expected: 12/22/2022 (Approximate), Expi res: 11/25/2023 Start: 12-22-2022 End: 11-25-2023 PROTEIN ELECTROPHORESIS SERUM W/INTERP PROTEIN ELECTROPHORESIS SERUM W/INTERP Lab Routine Multiple myeloma not having achieved remission (HCC) Hepatocellular carcinoma (HCC) Platelets decreased (HCC) Type 2 diabetes (HCC) Expected: 12/22/2022 (Approximate), Expires: 11/25/2023 [facility] Work Phone: Comment on above: Expected: 12/22/2022 (Approximate), Expi res: 11/25/2023 Start: 12-22-2022 End: 11-25-2023 Urate [Mass/volume] in Serum or Plasma URIC ACID BLOOD Lab Routine Multiple myeloma not having achieved remission (HCC) Hepatocellular carcinoma (HCC) Platelets decreased (HCC) Type 2 diabetes (HCC) Expected: 12/22/2022 (Approximate), Expires: 11/25/2023 [facility] Work Phone: Comment on above: Expected: 12/22/2022 (Approximate), Expi res: 11/25/2023 Start: 11-24-2022 End: 11-25-2023 Ikft-5-Rxfozfqdvzrcr [Mass/volume] in Serum or Plasma B2 MICROGLOBULIN B Lab Routine Stage 3 chronic kidney disease, unspecified whether stage 3a or 3b CKD (HCC) Multiple myeloma not having achieved remission (HCC) Hepatocellular carcinoma (HCC) Platelets decreased (HCC) Type 2 diabetes (HCC) 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HCC) Expected: 11/24/2022, Expires: 11/25/2023 [facility] Work Phone: Comment on above: Expected: 11/24/2022, Expires: Start: 11-24-2022 End: 11-25-2023 Calcium.ionized [Moles/volume] in Blood CALCIUM IONIZED BLOOD Lab Routine Stage 3 chronic kidney disease, unspecified whether stage 3a or 3b CKD (HCC) Multiple myeloma not having achieved remission (HCC) Hepatocellular carcinoma (HCC) Platelets decreased (HCC) Type 2 diabetes (HCC) 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HCC) Expected: 11/24/2022, Expires: 11/25/2023 [facility] Work Phone: Comment on above: Expected: 11/24/2022, Expires: 4 Start: 11-24-2022 End: 11-25-2023 CBC W Auto Differential panel - Blood CBC + DIFF Lab Routine Stage 3 chronic kidney disease, unspecified whether stage 3a or 3b CKD (HCC) Multiple myeloma not having achieved remission (HCC) Hepatocellular carcinoma (HCC) Platelets decreased (HCC) Type 2 diabetes (HCC) 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HCC) Expected: 11/24/2022, Expires: 11/25/2023 [facility] Work Phone: Comment on above: Expected: 11/24/2022, Expires: 4 Start: 11-24-2022 End: 11-25-2023 Comprehensive metabolic 2000 panel - Serum or Plasma COMP METABOLIC PANEL Lab Routine Stage 3 chronic kidney disease, unspecified whether stage 3a or 3b CKD (HCC) Multiple myeloma not having achieved remission (HCC) Hepatocellular carcinoma (HCC) Platelets decreased (HCC) Type 2 diabetes (HCC) 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HCC) Expected: 11/24/2022, Expires: 11/25/2023 [facility] Work Phone: Comment on above: Expected: 11/24/2022, Expires: 4 Start: 11-24-2022 End: 01-24-2023 KAPPA/ORTIZ,FREE,SER KAPPA/ORTIZ,FREE,SER Lab Routine Stage 3 chronic kidney disease, unspecified whether stage 3a or 3b CKD (HCC) Multiple myeloma not having achieved remission (HCC) Hepatocellular carcinoma (HCC) Platelets decreased (HCC) Type 2 diabetes (HCC) 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HCC) Expected: 11/24/2022, Expires: 01/24/2023 [facility] Work Phone: Comment on above: Expected: 11/24/2022, Expires: 3 Start: 11-24-2022 End: 11-25-2023 Lactate dehydrogenase [Enzymatic activity/volume] in Serum or Plasma LD LACTATE DEHYDRO Lab Routine Stage 3 chronic kidney disease, unspecified whether stage 3a or 3b CKD (HCC) Multiple myeloma not having achieved remission (HCC) Hepatocellular carcinoma (HCC) Platelets decreased (HCC) Type 2 diabetes (HCC) 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HCC) Expected: 11/24/2022, Expires: 11/25/2023 [facility] Work Phone: Comment on above: Expected: 11/24/2022, Expires: 4 Start: 11-24-2022 End: 11-25-2023 MONOCLONAL PROTEIN, SERUM (BLOOD) MONOCLONAL PROTEIN, SERUM (BLOOD) Lab Routine Stage 3 chronic kidney disease, unspecified whether stage 3a or 3b CKD (HCC) Multiple myeloma not having achieved remission (HCC) Hepatocellular carcinoma (HCC) Platelets decreased (HCC) Type 2 diabetes (HCC) 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HCC) Expected: 11/24/2022, Expires: 11/25/2023 [facility] Work Phone: Comment on above: Expected: 11/24/2022, Expires: 4 Start: 11-24-2022 End: 11-25-2023 Phosphate [Mass/volume] in Serum or Plasma PHOSPHORUS INORGANIC Lab Routine Stage 3 chronic kidney disease, unspecified whether stage 3a or 3b CKD (HCC) Multiple myeloma not having achieved remission (HCC) Hepatocellular carcinoma (HCC) Platelets decreased (HCC) Type 2 diabetes (HCC) 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HCC) Expected: 11/24/2022, Expires: 11/25/2023 [facility] Work Phone: Comment on above: Expected: 11/24/2022, Expires: 4 Start: 11-24-2022 End: 11-25-2023 PROTEIN ELECTROPHORESIS SERUM W/INTERP PROTEIN ELECTROPHORESIS SERUM W/INTERP Lab Routine Stage 3 chronic kidney disease, unspecified whether stage 3a or 3b CKD (HCC) Multiple myeloma not having achieved remission (HCC) Hepatocellular carcinoma (HCC) Platelets decreased (HCC) Type 2 diabetes (HCC) 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HCC) Expected: 11/24/2022, Expires: 11/25/2023 [facility] Work Phone: Comment on above: Expected: 11/24/2022, Expires: Start: 11-24-2022 End: 11-25-2023 Urate [Mass/volume] in Serum or Plasma URIC ACID BLOOD Lab Routine Stage 3 chronic kidney disease, unspecified whether stage 3a or 3b CKD (HCC) Multiple myeloma not having achieved remission (HCC) Hepatocellular carcinoma (HCC) Platelets decreased (HCC) Type 2 diabetes (HCC) 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HCC) Expected: 11/24/2022, Expires: 11/25/2023 [facility] Work Phone: Comment on above: Expected: 11/24/2022, Expires: Start: 11-20-2022 Hepatitis B surface antibody level LDL CHOLESTEROL [facility] Start: 11-17-2022 End: 01-17-2023 [id number] [Mass/volume] in Serum or Plasma ALPHA FETOPROTEIN BL Lab Routine Hepatocellular carcinoma (HCC) Expected: 11/17/2022 (Approximate), Expires: 01/17/2023 [facility] Work Phone: Comment on above: Expected: 11/17/2022 (Approximate), Expi res: 01/17/2023 Start: 11-17-2022 End: 10-21-2023 [id number] [Mass/volume] in Serum or Plasma B2 MICROGLOBULIN B Lab Routine Multiple myeloma not having achieved remission (HCC) Hepatocellular carcinoma (HCC) Platelets decreased (HCC) Expected: 11/17/2022 (Approximate), Expires: 10/21/2023 [facility] Work Phone: Comment on above: Expected: 11/17/2022 (Approximate), Expi res: 10/21/2023 Start: 11-17-2022 End: 10-21-2023 Calcium.ionized [Moles/volume] in Blood CALCIUM IONIZED BLOOD Lab Routine Multiple myeloma not having achieved remission (HCC) Hepatocellular carcinoma (HCC) Platelets decreased (HCC) Expected: 11/17/2022 (Approximate), Expires: 10/21/2023 [facility] Work Phone: Comment on above: Expected: 11/17/2022 (Approximate), Expi res: 10/21/2023 Start: 11-17-2022 End: 10-21-2023 CBC W Auto Differential panel - Blood CBC + DIFF Lab Routine Multiple myeloma not having achieved remission (HCC) Hepatocellular carcinoma (HCC) Platelets decreased (HCC) Expected: 11/17/2022 (Approximate), Expires: 10/21/2023 [facility] Work Phone: Comment on above: Expected: 11/17/2022 (Approximate), Expi res: 10/21/2023 Start: 11-17-2022 End: 10-21-2023 Cobalamin (Vitamin B12) [Mass/volume] in Serum or Plasma VITAMIN B12 BLOOD Lab Routine Multiple myeloma not having achieved remission (HCC) Hepatocellular carcinoma (HCC) Platelets decreased (HCC) Expected: 11/17/2022 (Approximate), Expires: 10/21/2023 [facility] Work Phone: Comment on above: Expected: 11/17/2022 (Approximate), Expi res: 10/21/2023 Start: 11-17-2022 End: 10-21-2023 Comprehensive metabolic 2000 panel - Serum or Plasma COMP METABOLIC PANEL Lab Routine Multiple myeloma not having achieved remission (HCC) Hepatocellular carcinoma (HCC) Platelets decreased (HCC) Expected: 11/17/2022 (Approximate), Expires: 10/21/2023 [facility] Work Phone: Comment on above: Expected: 11/17/2022 (Approximate), Expi res: 10/21/2023 Start: 11-17-2022 End: 10-21-2023 Ferritin [Mass/volume] in Serum or Plasma FERRITIN BLD Lab Routine Multiple myeloma not having achieved remission (HCC) Hepatocellular carcinoma (HCC) Platelets decreased (HCC) Expected: 11/17/2022 (Approximate), Expires: 10/21/2023 [facility] Work Phone: Comment on above: Expected: 11/17/2022 (Approximate), Expi res: 10/21/2023 Start: 11-17-2022 End: 10-21-2023 Folate [Mass/volume] in Serum or Plasma FOLATE SERUM Lab Routine Multiple myeloma not having achieved remission (HCC) Hepatocellular carcinoma (HCC) Platelets decreased (HCC) Expected: 11/17/2022 (Approximate), Expires: 10/21/2023 [facility] Work Phone: Comment on above: Expected: 11/17/2022 (Approximate), Expi res: 10/21/2023 Start: 11-17-2022 End: 10-21-2023 Iron and Iron binding capacity panel - Serum or Plasma IRON + TIBC Lab Routine Multiple myeloma not having achieved remission (HCC) Hepatocellular carcinoma (HCC) Platelets decreased (HCC) Expected: 11/17/2022 (Approximate), Expires: 10/21/2023 [facility] Work Phone: Comment on above: Expected: 11/17/2022 (Approximate), Expi res: 10/21/2023 Start: 11-17-2022 End: 01-17-2023 KAPPA/ORTIZ,FREE,SER KAPPA/ORTIZ,FREE,SER Lab Routine Multiple myeloma not having achieved remission (HCC) Hepatocellular carcinoma (HCC) Platelets decreased (HCC) Expected: 11/17/2022 (Approximate), Expires: 01/17/2023 [facility] Work Phone: Comment on above: Expected: 11/17/2022 (Approximate), Expi res: 01/17/2023 Start: 11-17-2022 End: 10-21-2023 Lactate dehydrogenase [Enzymatic activity/volume] in Serum or Plasma LD LACTATE DEHYDRO Lab Routine Multiple myeloma not having achieved remission (HCC) Hepatocellular carcinoma (HCC) Platelets decreased (HCC) Expected: 11/17/2022 (Approximate), Expires: 10/21/2023 [facility] Work Phone: Comment on above: Expected: 11/17/2022 (Approximate), Expi res: 10/21/2023 Start: 11-17-2022 End: 10-21-2023 MONOCLONAL PROTEIN, SERUM (BLOOD) MONOCLONAL PROTEIN, SERUM (BLOOD) Lab Routine Multiple myeloma not having achieved remission (HCC) Hepatocellular carcinoma (HCC) Platelets decreased (HCC) Expected: 11/17/2022 (Approximate), Expires: 10/21/2023 [facility] Work Phone: Comment on above: Expected: 11/17/2022 (Approximate), Expi res: 10/21/2023 Start: 11-17-2022 End: 10-21-2023 Phosphate [Mass/volume] in Serum or Plasma PHOSPHORUS INORGANIC Lab Routine Multiple myeloma not having achieved remission (HCC) Hepatocellular carcinoma (HCC) Platelets decreased (HCC) Expected: 11/17/2022 (Approximate), Expires: 10/21/2023 [facility] Work Phone: Comment on above: Expected: 11/17/2022 (Approximate), Expi res: 10/21/2023 Start: 11-17-2022 End: 10-21-2023 PROTEIN ELECTROPHORESIS SERUM W/INTERP PROTEIN ELECTROPHORESIS SERUM W/INTERP Lab Routine Multiple myeloma not having achieved remission (HCC) Hepatocellular carcinoma (HCC) Platelets decreased (HCC) Expected: 11/17/2022 (Approximate), Expires: 10/21/2023 [facility] Work Phone: Comment on above: Expected: 11/17/2022 (Approximate), Expi res: 10/21/2023 Start: 11-17-2022 End: 10-21-2023 Urate [Mass/volume] in Serum or Plasma URIC ACID BLOOD Lab Routine Multiple myeloma not having achieved remission (HCC) Hepatocellular carcinoma (HCC) Platelets decreased (HCC) Expected: 11/17/2022 (Approximate), Expires: 10/21/2023 [facility] Work Phone: Comment on above: Expected: 11/17/2022 (Approximate), Expi res: 10/21/2023 Start: 09-29-2022 End: 11-29-2022 Uzlym-[id number] [Mass/volume] in Serum or Plasma ALPHA FETOPROTEIN BL Lab Routine Hepatocellular carcinoma (HCC) Expected: 09/29/2022 (Approximate), Expires: 11/29/2022 [facility] Work Phone: Comment on above: Expected: 09/29/2022 (Approximate), Expi res: 11/29/2022 Start: 09-29-2022 End: 09-02-2023 Ivik-2-[id number] [Mass/volume] in Serum or Plasma B2 MICROGLOBULIN B Lab Routine Multiple myeloma not having achieved remission (HCC) Hepatocellular carcinoma (HCC) Expected: 09/29/2022 (Approximate), Expires: 09/02/2023 [facility] Work Phone: Comment on above: Expected: 09/29/2022 (Approximate), Expi res: 09/02/2023 Start: 09-29-2022 End: 09-02-2023 Calcium.ionized [Moles/volume] in Blood CALCIUM IONIZED BLOOD Lab Routine Multiple myeloma not having achieved remission (HCC) Hepatocellular carcinoma (HCC) Expected: 09/29/2022 (Approximate), Expires: 09/02/2023 [facility] Work Phone: Comment on above: Expected: 09/29/2022 (Approximate), Expi res: 09/02/2023 Start: 09-29-2022 End: 09-02-2023 CBC W Auto Differential panel - Blood CBC + DIFF Lab Routine Multiple myeloma not having achieved remission (HCC) Hepatocellular carcinoma (HCC) Expected: 09/29/2022 (Approximate), Expires: 09/02/2023 [facility] Work Phone: Comment on above: Expected: 09/29/2022 (Approximate), Expi res: 09/02/2023 Start: 09-29-2022 End: 09-02-2023 Comprehensive metabolic 2000 panel - Serum or Plasma COMP METABOLIC PANEL Lab Routine Multiple myeloma not having achieved remission (HCC) Hepatocellular carcinoma (HCC) Expected: 09/29/2022 (Approximate), Expires: 09/02/2023 [facility] Work Phone: Comment on above: Expected: 09/29/2022 (Approximate), Expi res: 09/02/2023 Start: 09-29-2022 End: 11-29-2022 KAPPA/ORTIZ,FREE,SER KAPPA/ORTIZ,FREE,SER Lab Routine Multiple myeloma not having achieved remission (HCC) Hepatocellular carcinoma (HCC) Expected: 09/29/2022 (Approximate), Expires: 11/29/2022 [facility] Work Phone: Comment on above: Expected: 09/29/2022 (Approximate), Expi res: 11/29/2022 Start: 09-29-2022 End: 09-02-2023 Lactate dehydrogenase [Enzymatic activity/volume] in Serum or Plasma LD LACTATE DEHYDRO Lab Routine Multiple myeloma not having achieved remission (HCC) Hepatocellular carcinoma (HCC) Expected: 09/29/2022 (Approximate), Expires: 09/02/2023 [facility] Work Phone: Comment on above: Expected: 09/29/2022 (Approximate), Expi res: 09/02/2023 Start: 09-29-2022 End: 09-02-2023 MONOCLONAL PROTEIN, SERUM (BLOOD) MONOCLONAL PROTEIN, SERUM (BLOOD) Lab Routine Multiple myeloma not having achieved remission (HCC) Hepatocellular carcinoma (HCC) Expected: 09/29/2022 (Approximate), Expires: 09/02/2023 [facility] Work Phone: Comment on above: Expected: 09/29/2022 (Approximate), Expi res: 09/02/2023 Start: 09-29-2022 End: 09-02-2023 Phosphate [Mass/volume] in Serum or Plasma PHOSPHORUS INORGANIC Lab Routine Multiple myeloma not having achieved remission (HCC) Hepatocellular carcinoma (HCC) Expected: 09/29/2022 (Approximate), Expires: 09/02/2023 [facility] Work Phone: Comment on above: Expected: 09/29/2022 (Approximate), Expi res: 09/02/2023 Start: 09-29-2022 End: 09-02-2023 PROTEIN ELECTROPHORESIS SERUM W/INTERP PROTEIN ELECTROPHORESIS SERUM W/INTERP Lab Routine Multiple myeloma not having achieved remission (HCC) Hepatocellular carcinoma (HCC) Expected: 09/29/2022 (Approximate), Expires: 09/02/2023 [facility] Work Phone: Comment on above: Expected: 09/29/2022 (Approximate), Expi res: 09/02/2023 Start: 09-29-2022 End: 09-02-2023 Urate [Mass/volume] in Serum or Plasma URIC ACID BLOOD Lab Routine Multiple myeloma not having achieved remission (HCC) Hepatocellular carcinoma (HCC) Expected: 09/29/2022 (Approximate), Expires: 09/02/2023 [facility] Work Phone: Comment on above: Expected: 09/29/2022 (Approximate), Expi res: 09/02/2023 Start: 09-17-2022 End: 11-17-2022 [id number] [Mass/volume] in Serum or Plasma ALPHA FETOPROTEIN BL Lab Routine Hepatocellular carcinoma (HCC) Expected: 09/17/2022, Expires: 11/17/2022 [facility] Work Phone: Comment on above: Expected: 09/17/2022, Expires: 3 Start: 09-17-2022 End: 11-17-2022 aPTT in Platelet poor plasma by Coagulation assay ACTIVATED PTT Lab Routine Hepatocellular carcinoma (HCC) Expected: 09/17/2022, Expires: 11/17/2022 [facility] Work Phone: Comment on above: Expected: 09/17/2022, Expires: 3 Start: 09-17-2022 End: 11-17-2022 Cancer Ag 19-9 [Units/volume] in Serum or Plasma CA 19-9 BLD Lab Routine Hepatocellular carcinoma (HCC) Other abnormal tumor markers Expected: 09/17/2022, Expires: 11/17/2022 [facility] Work Phone: Comment on above: Expected: 09/17/2022, Expires: 3 Start: 09-17-2022 End: 11-17-2022 Carcinoembryonic Ag [Mass/volume] in Serum or Plasma CEA BLD Lab Routine Hepatocellular carcinoma (HCC) Other abnormal tumor markers Expected: 09/17/2022, Expires: 11/17/2022 [facility] Work Phone: Comment on above: Expected: 09/17/2022, Expires: 3 Start: 09-17-2022 End: 11-17-2022 CBC W Auto Differential panel - Blood CBC + DIFF Lab Routine Hepatocellular carcinoma (HCC) Expected: 09/17/2022, Expires: 11/17/2022 [facility] Work Phone: Comment on above: Expected: 09/17/2022, Expires: 3 Start: 09-17-2022 End: 11-17-2022 Chronic hepatitis differentiation between hepatitis B and C virus panel - Serum or Plasma HEP REMOTE PANEL BL Lab Routine Hepatocellular carcinoma (HCC) Expected: 09/17/2022, Expires: 11/17/2022 [facility] Work Phone: Comment on above: Expected: 09/17/2022, Expires: 3 Start: 09-17-2022 End: 11-17-2022 Comprehensive metabolic 2000 panel - Serum or Plasma COMP METABOLIC PANEL Lab Routine Hepatocellular carcinoma (HCC) Expected: 09/17/2022, Expires: 11/17/2022 [facility] Work Phone: Comment on above: Expected: 09/17/2022, Expires: 3 Start: 08-06-2022 End: 10-06-2022 CBC W Auto Differential panel - Blood CBC + DIFF Lab Routine Multiple myeloma not having achieved remission (HCC) Immunodeficiency (HCC) Type 2 diabetes (HCC) 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HCC) Thrombocytopenia, secondary Essential hypertension Expected: 08/06/2022, Expires: 10/06/2022 [facility] Work Phone: Comment on above: Expected: 08/06/2022, Expires: 3 Start: 08-06-2022 End: 10-06-2022 Comprehensive metabolic 2000 panel - Serum or Plasma COMP METABOLIC PANEL Lab Routine Multiple myeloma not having achieved remission (HCC) Immunodeficiency (HCC) Type 2 diabetes (HCC) 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HCC) Thrombocytopenia, secondary Essential hypertension Expected: 08/06/2022, Expires: 10/06/2022 [facility] Work Phone: Comment on above: Expected: 08/06/2022, Expires: 3 Start: 08-06-2022 End: 10-06-2022 MONOCLONAL PROTEIN, SERUM (BLOOD) MONOCLONAL PROTEIN, SERUM (BLOOD) Lab Routine Multiple myeloma not having achieved remission (HCC) Immunodeficiency (HCC) Type 2 diabetes (HCC) 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HCC) Thrombocytopenia, secondary Essential hypertension Expected: 08/06/2022, Expires: 10/06/2022 [facility] Work Phone: Comment on above: Expected: 08/06/2022, Expires: Start: 08-06-2022 End: 10-06-2022 PROT ELECT SERUM WITH ANH AND INTERP PROT ELECT SERUM WITH ANH AND INTERP Lab Routine Multiple myeloma not having achieved remission (HCC) Expected: 08/06/2022, Expires: 10/06/2022 [facility] Work Phone: Comment on above: Expected: 08/06/2022, Expires: Start: 08-04-2022 End: 07-08-2023 Nsdf-[id number] [Mass/volume] in Serum or Plasma B2 MICROGLOBULIN B Lab Routine Multiple myeloma not having achieved remission (HCC) Diabetes mellitus due to underlying condition with hyperglycemia, with long-term current use of insulin (HCC) Renal insufficiency Community acquired MRSA infection Expected: 08/04/2022 (Approximate), Expires: 07/08/2023 [facility] Work Phone: Comment on above: Expected: 08/04/2022 (Approximate), Expi res: 07/08/2023 Start: 08-04-2022 End: 07-08-2023 Calcium.ionized [Moles/volume] in Blood CALCIUM IONIZED BLOOD Lab Routine Multiple myeloma not having achieved remission (HCC) Diabetes mellitus due to underlying condition with hyperglycemia, with long-term current use of insulin (HCC) Renal insufficiency Community acquired MRSA infection Expected: 08/04/2022 (Approximate), Expires: 07/08/2023 [facility] Work Phone: Comment on above: Expected: 08/04/2022 (Approximate), Expi res: 07/08/2023 Start: 08-04-2022 End: 07-08-2023 CBC W Auto Differential panel - Blood CBC + DIFF Lab Routine Multiple myeloma not having achieved remission (HCC) Diabetes mellitus due to underlying condition with hyperglycemia, with long-term current use of insulin (HCC) Renal insufficiency Community acquired MRSA infection Expected: 08/04/2022 (Approximate), Expires: 07/08/2023 [facility] Work Phone: Comment on above: Expected: 08/04/2022 (Approximate), Expi res: 07/08/2023 Start: 08-04-2022 End: 07-08-2023 Comprehensive metabolic 2000 panel - Serum or Plasma COMP METABOLIC PANEL Lab Routine Multiple myeloma not having achieved remission (HCC) Diabetes mellitus due to underlying condition with hyperglycemia, with long-term current use of insulin (HCC) Renal insufficiency Community acquired MRSA infection Expected: 08/04/2022 (Approximate), Expires: 07/08/2023 [facility] Work Phone: Comment on above: Expected: 08/04/2022 (Approximate), Expi res: 07/08/2023 Start: 08-04-2022 End: 10-04-2022 KAPPA/ORTIZ,FREE,SER KAPPA/ORTIZ,FREE,SER Lab Routine Multiple myeloma not having achieved remission (HCC) Diabetes mellitus due to underlying condition with hyperglycemia, with long-term current use of insulin (HCC) Renal insufficiency Community acquired MRSA infection Expected: 08/04/2022 (Approximate), Expires: 10/04/2022 [facility] Work Phone: Comment on above: Expected: 08/04/2022 (Approximate), Expi res: 10/04/2022 Start: 08-04-2022 End: 07-08-2023 Lactate dehydrogenase [Enzymatic activity/volume] in Serum or Plasma LD LACTATE DEHYDRO Lab Routine Multiple myeloma not having achieved remission (HCC) Diabetes mellitus due to underlying condition with hyperglycemia, with long-term current use of insulin (HCC) Renal insufficiency Community acquired MRSA infection Expected: 08/04/2022 (Approximate), Expires: 07/08/2023 [facility] Work Phone: Comment on above: Expected: 08/04/2022 (Approximate), Expi res: 07/08/2023 Start: 08-04-2022 End: 07-08-2023 MONOCLONAL PROTEIN, SERUM (BLOOD) MONOCLONAL PROTEIN, SERUM (BLOOD) Lab Routine Multiple myeloma not having achieved remission (HCC) Diabetes mellitus due to underlying condition with hyperglycemia, with long-term current use of insulin (HCC) Renal insufficiency Community acquired MRSA infection Expected: 08/04/2022 (Approximate), Expires: 07/08/2023 [facility] Work Phone: Comment on above: Expected: 08/04/2022 (Approximate), Expi res: 07/08/2023 Start: 08-04-2022 End: 07-08-2023 Phosphate [Mass/volume] in Serum or Plasma PHOSPHORUS INORGANIC Lab Routine Multiple myeloma not having achieved remission (HCC) Diabetes mellitus due to underlying condition with hyperglycemia, with long-term current use of insulin (HCC) Renal insufficiency Community acquired MRSA infection Expected: 08/04/2022 (Approximate), Expires: 07/08/2023 [facility] Work Phone: Comment on above: Expected: 08/04/2022 (Approximate), Expi res: 07/08/2023 Start: 08-04-2022 End: 07-08-2023 PROTEIN ELECTROPHORESIS SERUM W/INTERP PROTEIN ELECTROPHORESIS SERUM W/INTERP Lab Routine Multiple myeloma not having achieved remission (HCC) Diabetes mellitus due to underlying condition with hyperglycemia, with long-term current use of insulin (HCC) Renal insufficiency Community acquired MRSA infection Expected: 08/04/2022 (Approximate), Expires: 07/08/2023 [facility] Work Phone: Comment on above: Expected: 08/04/2022 (Approximate), Expi res: 07/08/2023 Start: 08-04-2022 End: 07-08-2023 Urate [Mass/volume] in Serum or Plasma URIC ACID BLOOD Lab Routine Multiple myeloma not having achieved remission (HCC) Diabetes mellitus due to underlying condition with hyperglycemia, with long-term current use of insulin (HCC) Renal insufficiency Community acquired MRSA infection Expected: 08/04/2022 (Approximate), Expires: 07/08/2023 [facility] Work Phone: Comment on above: Expected: 08/04/2022 (Approximate), Expi res: 07/08/2023 Start: 07-07-2022 End: 06-09-2023 [id number] [Mass/volume] in Serum or Plasma B2 MICROGLOBULIN B Lab Routine Multiple myeloma not having achieved remission (HCC) Expected: 07/07/2022 (Approximate), Expires: 06/09/2023 [facility] Work Phone: Comment on above: Expected: 07/07/2022 (Approximate), Expi res: 06/09/2023 Start: 07-07-2022 End: 06-09-2023 Calcium.ionized [Moles/volume] in Blood CALCIUM IONIZED BLOOD Lab Routine Multiple myeloma not having achieved remission (HCC) Expected: 07/07/2022 (Approximate), Expires: 06/09/2023 [facility] Work Phone: Comment on above: Expected: 07/07/2022 (Approximate), Expi res: 06/09/2023 Start: 07-07-2022 End: 06-09-2023 CBC W Auto Differential panel - Blood CBC + DIFF Lab Routine Multiple myeloma not having achieved remission (HCC) Expected: 07/07/2022 (Approximate), Expires: 06/09/2023 [facility] Work Phone: Comment on above: Expected: 07/07/2022 (Approximate), Expi res: 06/09/2023 Start: 07-07-2022 End: 06-09-2023 Comprehensive metabolic 2000 panel - Serum or Plasma COMP METABOLIC PANEL Lab Routine Multiple myeloma not having achieved remission (HCC) Expected: 07/07/2022 (Approximate), Expires: 06/09/2023 [facility] Work Phone: Comment on above: Expected: 07/07/2022 (Approximate), Expi res: 06/09/2023 Start: 07-07-2022 End: 09-06-2022 KAPPA/ORTIZ,FREE,SER KAPPA/ORTIZ,FREE,SER Lab Routine Multiple myeloma not having achieved remission (HCC) Expected: 07/07/2022 (Approximate), Expires: 09/06/2022 [facility] Work Phone: Comment on above: Expected: 07/07/2022 (Approximate), Expi res: 09/06/2022 Start: 07-07-2022 End: 06-09-2023 Lactate dehydrogenase [Enzymatic activity/volume] in Serum or Plasma LD LACTATE DEHYDRO Lab Routine Multiple myeloma not having achieved remission (HCC) Expected: 07/07/2022 (Approximate), Expires: 06/09/2023 [facility] Work Phone: Comment on above: Expected: 07/07/2022 (Approximate), Expi res: 06/09/2023 Start: 07-07-2022 End: 06-09-2023 MONOCLONAL PROTEIN, SERUM (BLOOD) MONOCLONAL PROTEIN, SERUM (BLOOD) Lab Routine Multiple myeloma not having achieved remission (HCC) Expected: 07/07/2022 (Approximate), Expires: 06/09/2023 [facility] Work Phone: Comment on above: Expected: 07/07/2022 (Approximate), Expi res: 06/09/2023 Start: 07-07-2022 End: 06-09-2023 Phosphate [Mass/volume] in Serum or Plasma PHOSPHORUS INORGANIC Lab Routine Multiple myeloma not having achieved remission (HCC) Expected: 07/07/2022 (Approximate), Expires: 06/09/2023 [facility] Work Phone: Comment on above: Expected: 07/07/2022 (Approximate), Expi res: 06/09/2023 Start: 07-07-2022 End: 06-09-2023 PROTEIN ELECTROPHORESIS SERUM W/INTERP PROTEIN ELECTROPHORESIS SERUM W/INTERP Lab Routine Multiple myeloma not having achieved remission (HCC) Expected: 07/07/2022 (Approximate), Expires: 06/09/2023 [facility] Work Phone: Comment on above: Expected: 07/07/2022 (Approximate), Expi res: 06/09/2023 Start: 07-07-2022 End: 06-09-2023 Urate [Mass/volume] in Serum or Plasma URIC ACID BLOOD Lab Routine Multiple myeloma not having achieved remission (HCC) Expected: 07/07/2022 (Approximate), Expires: 06/09/2023 [facility] Work Phone: Comment on above: Expected: 07/07/2022 (Approximate), Expi res: 06/09/2023 Start: 06-28-2022 Superficial Wound Culture Superficial Wound Culture [facility] Start: 05-12-2022 End: 04-14-2023 [id number] [Mass/volume] in Serum or Plasma B2 MICROGLOBULIN B Lab Routine Multiple myeloma not having achieved remission (HCC) Expected: 05/12/2022 (Approximate), Expires: 04/14/2023 [facility] Work Phone: Comment on above: Expected: 05/12/2022 (Approximate), Expi res: 04/14/2023 Start: 05-12-2022 End: 04-14-2023 Calcium.ionized [Moles/volume] in Blood CALCIUM IONIZED BLOOD Lab Routine Multiple myeloma not having achieved remission (HCC) Expected: 05/12/2022 (Approximate), Expires: 04/14/2023 [facility] Work Phone: Comment on above: Expected: 05/12/2022 (Approximate), Expi res: 04/14/2023 Start: 05-12-2022 End: 04-14-2023 CBC W Auto Differential panel - Blood [facility] Work Phone: Comment on above: Expected: 05/12/2022 (Approximate), Expi res: 04/14/2023 Expected: 05/12/2022 , Expires: 07/12/2022 Start: 05-12-2022 End: 04-14-2023 Comprehensive metabolic 2000 panel - Serum or Plasma [facility] Work Phone: Comment on above: Expected: 05/12/2022 (Approximate), Expi res: 04/14/2023 Expected: 05/12/2022 , Expires: 07/12/2022 Start: 05-12-2022 End: 07-12-2022 KAPPA/ORTIZ,FREE,SER KAPPA/ORTIZ,FREE,SER Lab Routine Multiple myeloma not having achieved remission (HCC) Expected: 05/12/2022 (Approximate), Expires: 07/12/2022 [facility] Work Phone: Comment on above: Expected: 05/12/2022 (Approximate), Expi res: 07/12/2022 Start: 05-12-2022 End: 04-14-2023 Lactate dehydrogenase [Enzymatic activity/volume] in Serum or Plasma LD LACTATE DEHYDRO Lab Routine Multiple myeloma not having achieved remission (HCC) Expected: 05/12/2022 (Approximate), Expires: 04/14/2023 [facility] Work Phone: Comment on above: Expected: 05/12/2022 (Approximate), Expi res: 04/14/2023 Start: 05-12-2022 End: 04-14-2023 MONOCLONAL PROTEIN, SERUM (BLOOD) [facility] Work Phone: Comment on above: Expected: 05/12/2022 (Approximate), Expi res: 04/14/2023 Expected: 05/12/2022 , Expires: 07/12/2022 Start: 05-12-2022 End: 04-14-2023 Phosphate [Mass/volume] in Serum or Plasma PHOSPHORUS INORGANIC Lab Routine Multiple myeloma not having achieved remission (HCC) Expected: 05/12/2022 (Approximate), Expires: 04/14/2023 [facility] Work Phone: Comment on above: Expected: 05/12/2022 (Approximate), Expi res: 04/14/2023 Start: 05-12-2022 End: 07-12-2022 PROT ELECT SERUM WITH ANH AND INTERP PROT ELECT SERUM WITH ANH AND INTERP Lab Routine Multiple myeloma not having achieved remission (HCC) 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HCC) Immunodeficiency (HCC) Type 2 diabetes (HCC) Renal insufficiency Essential hypertension Pancytopenia (HCC) Expected: 05/12/2022, Expires: 07/12/2022 [facility] Work Phone: Comment on above: Expected: 05/12/2022, Expires: Start: 05-12-2022 End: 04-14-2023 PROTEIN ELECTROPHORESIS SERUM W/INTERP PROTEIN ELECTROPHORESIS SERUM W/INTERP Lab Routine Multiple myeloma not having achieved remission (HCC) Expected: 05/12/2022 (Approximate), Expires: 04/14/2023 [facility] Work Phone: Comment on above: Expected: 05/12/2022 (Approximate), Expi res: 04/14/2023 Start: 05-12-2022 End: 04-14-2023 Urate [Mass/volume] in Serum or Plasma URIC ACID BLOOD Lab Routine Multiple myeloma not having achieved remission (HCC) Expected: 05/12/2022 (Approximate), Expires: 04/14/2023 [facility] Work Phone: Comment on above: Expected: 05/12/2022 (Approximate), Expi res: 04/14/2023 Start: 05-09-2022 ADVANCE DIRECTIVE DISCUSSION ADVANCE DIRECTIVE DISCUSSION [facility] Start: 04-14-2022 End: 03-17-2023 [id number] [Mass/volume] in Serum or Plasma B2 MICROGLOBULIN B Lab Routine Multiple myeloma not having achieved remission (HCC) Expected: 04/14/2022 (Approximate), Expires: 03/17/2023 [facility] Work Phone: Comment on above: Expected: 04/14/2022 (Approximate), Expi res: 03/17/2023 Start: 04-14-2022 End: 03-17-2023 Calcium.ionized [Moles/volume] in Blood CALCIUM IONIZED BLOOD Lab Routine Multiple myeloma not having achieved remission (HCC) Expected: 04/14/2022 (Approximate), Expires: 03/17/2023 [facility] Work Phone: Comment on above: Expected: 04/14/2022 (Approximate), Expi res: 03/17/2023 Start: 04-14-2022 End: 03-17-2023 CBC W Auto Differential panel - Blood CBC + DIFF Lab Routine Multiple myeloma not having achieved remission (HCC) Expected: 04/14/2022 (Approximate), Expires: 03/17/2023 [facility] Work Phone: Comment on above: Expected: 04/14/2022 (Approximate), Expi res: 03/17/2023 Start: 04-14-2022 End: 03-17-2023 Comprehensive metabolic 2000 panel - Serum or Plasma COMP METABOLIC PANEL Lab Routine Multiple myeloma not having achieved remission (HCC) Expected: 04/14/2022 (Approximate), Expires: 03/17/2023 [facility] Work Phone: Comment on above: Expected: 04/14/2022 (Approximate), Expi res: 03/17/2023 Start: 04-14-2022 End: 06-14-2022 KAPPA/ORTIZ,FREE,SER KAPPA/ORTIZ,FREE,SER Lab Routine Multiple myeloma not having achieved remission (HCC) Expected: 04/14/2022 (Approximate), Expires: 06/14/2022 [facility] Work Phone: Comment on above: Expected: 04/14/2022 (Approximate), Expi res: 06/14/2022 Start: 04-14-2022 End: 03-17-2023 Lactate dehydrogenase [Enzymatic activity/volume] in Serum or Plasma LD LACTATE DEHYDRO Lab Routine Multiple myeloma not having achieved remission (HCC) Expected: 04/14/2022 (Approximate), Expires: 03/17/2023 [facility] Work Phone: Comment on above: Expected: 04/14/2022 (Approximate), Expi res: 03/17/2023 Start: 04-14-2022 End: 03-17-2023 MONOCLONAL PROTEIN, SERUM (BLOOD) MONOCLONAL PROTEIN, SERUM (BLOOD) Lab Routine Multiple myeloma not having achieved remission (HCC) Expected: 04/14/2022 (Approximate), Expires: 03/17/2023 [facility] Work Phone: Comment on above: Expected: 04/14/2022 (Approximate), Expi res: 03/17/2023 Start: 04-14-2022 End: 03-17-2023 Phosphate [Mass/volume] in Serum or Plasma PHOSPHORUS INORGANIC Lab Routine Multiple myeloma not having achieved remission (HCC) Expected: 04/14/2022 (Approximate), Expires: 03/17/2023 [facility] Work Phone: Comment on above: Expected: 04/14/2022 (Approximate), Expi res: 03/17/2023 Start: 04-14-2022 End: 06-14-2022 PROTEIN ELECTRO, 24-HOUR URINE PROTEIN ELECTRO, 24-HOUR URINE Lab Routine Multiple myeloma not having achieved remission (HCC) Expected: 04/14/2022 (Approximate), Expires: 06/14/2022 [facility] Work Phone: Comment on above: Expected: 04/14/2022 (Approximate), Expi res: 06/14/2022 Start: 04-14-2022 End: 03-17-2023 PROTEIN ELECTROPHORESIS SERUM W/INTERP PROTEIN ELECTROPHORESIS SERUM W/INTERP Lab Routine Multiple myeloma not having achieved remission (HCC) Expected: 04/14/2022 (Approximate), Expires: 03/17/2023 [facility] Work Phone: Comment on above: Expected: 04/14/2022 (Approximate), Expi res: 03/17/2023 Start: 04-14-2022 End: 03-17-2023 Urate [Mass/volume] in Serum or Plasma URIC ACID BLOOD Lab Routine Multiple myeloma not having achieved remission (HCC) Expected: 04/14/2022 (Approximate), Expires: 03/17/2023 [facility] Work Phone: Comment on above: Expected: 04/14/2022 (Approximate), Expi res: 03/17/2023 Start: 03-19-2022 End: 05-19-2022 CBC W Auto Differential panel - Blood CBC + DIFF Lab Routine Multiple myeloma not having achieved remission (HCC) Expected: 03/19/2022, Expires: 05/19/2022 [facility] Work Phone: Comment on above: Expected: 03/19/2022, Expires: Start: 03-19-2022 End: 05-19-2022 Comprehensive metabolic 2000 panel - Serum or Plasma COMP METABOLIC PANEL Lab Routine Multiple myeloma not having achieved remission (HCC) Expected: 03/19/2022, Expires: 05/19/2022 [facility] Work Phone: Comment on above: Expected: 03/19/2022, Expires: 3 Start: 03-19-2022 End: 05-19-2022 MONOCLONAL PROTEIN, SERUM (BLOOD) MONOCLONAL PROTEIN, SERUM (BLOOD) Lab Routine Multiple myeloma not having achieved remission (HCC) Expected: 03/19/2022, Expires: 05/19/2022 [facility] Work Phone: Comment on above: Expected: 03/19/2022, Expires: 3 Start: 02-15-2022 End: 01-18-2023 [id number] [Mass/volume] in Serum or Plasma B2 MICROGLOBULIN B Lab Routine Multiple myeloma not having achieved remission (HCC) Expected: 02/15/2022 (Approximate), Expires: 01/18/2023 [facility] Work Phone: Comment on above: Expected: 02/15/2022 (Approximate), Expi res: 01/18/2023 Start: 02-15-2022 End: 01-18-2023 Calcium.ionized [Moles/volume] in Blood CALCIUM IONIZED BLOOD Lab Routine Multiple myeloma not having achieved remission (HCC) Expected: 02/15/2022 (Approximate), Expires: 01/18/2023 [facility] Work Phone: Comment on above: Expected: 02/15/2022 (Approximate), Expi res: 01/18/2023 Start: 02-15-2022 End: 01-18-2023 CBC W Auto Differential panel - Blood CBC + DIFF Lab Routine Multiple myeloma not having achieved remission (HCC) Expected: 02/15/2022 (Approximate), Expires: 01/18/2023 [facility] Work Phone: Comment on above: Expected: 02/15/2022 (Approximate), Expi res: 01/18/2023 Start: 02-15-2022 End: 01-18-2023 Comprehensive metabolic 2000 panel - Serum or Plasma COMP METABOLIC PANEL Lab Routine Multiple myeloma not having achieved remission (HCC) Expected: 02/15/2022 (Approximate), Expires: 01/18/2023 [facility] Work Phone: Comment on above: Expected: 02/15/2022 (Approximate), Expi res: 01/18/2023 Start: 02-15-2022 End: 04-17-2022 KAPPA/ORTIZ,FREE,SER KAPPA/ORTIZ,FREE,SER Lab Routine Multiple myeloma not having achieved remission (HCC) Expected: 02/15/2022 (Approximate), Expires: 04/17/2022 [facility] Work Phone: Comment on above: Expected: 02/15/2022 (Approximate), Expi res: 04/17/2022 Start: 02-15-2022 End: 01-18-2023 Lactate dehydrogenase [Enzymatic activity/volume] in Serum or Plasma LD LACTATE DEHYDRO Lab Routine Multiple myeloma not having achieved remission (HCC) Expected: 02/15/2022 (Approximate), Expires: 01/18/2023 [facility] Work Phone: Comment on above: Expected: 02/15/2022 (Approximate), Expi res: 01/18/2023 Start: 02-15-2022 End: 01-18-2023 MONOCLONAL PROTEIN, SERUM (BLOOD) MONOCLONAL PROTEIN, SERUM (BLOOD) Lab Routine Multiple myeloma not having achieved remission (HCC) Expected: 02/15/2022 (Approximate), Expires: 01/18/2023 [facility] Work Phone: Comment on above: Expected: 02/15/2022 (Approximate), Expi res: 01/18/2023 Start: 02-15-2022 End: 01-18-2023 Phosphate [Mass/volume] in Serum or Plasma PHOSPHORUS INORGANIC Lab Routine Multiple myeloma not having achieved remission (HCC) Expected: 02/15/2022 (Approximate), Expires: 01/18/2023 [facility] Work Phone: Comment on above: Expected: 02/15/2022 (Approximate), Expi res: 01/18/2023 Start: 02-15-2022 End: 01-18-2023 PROTEIN ELECTROPHORESIS SERUM W/INTERP PROTEIN ELECTROPHORESIS SERUM W/INTERP Lab Routine Multiple myeloma not having achieved remission (HCC) Expected: 02/15/2022 (Approximate), Expires: 01/18/2023 [facility] Work Phone: Comment on above: Expected: 02/15/2022 (Approximate), Expi res: 01/18/2023 Start: 02-15-2022 End: 01-18-2023 Urate [Mass/volume] in Serum or Plasma URIC ACID BLOOD Lab Routine Multiple myeloma not having achieved remission (HCC) Expected: 02/15/2022 (Approximate), Expires: 01/18/2023 [facility] Work Phone: Comment on above: Expected: 02/15/2022 (Approximate), Expi res: 01/18/2023 Start: 01-17-2022 End: 01-03-2023 [id number] [Mass/volume] in Serum or Plasma B2 MICROGLOBULIN B Lab Routine Multiple myeloma not having achieved remission (HCC) Expected: 01/17/2022 (Approximate), Expires: 01/03/2023 [facility] Work Phone: Comment on above: Expected: 01/17/2022 (Approximate), Expi res: 01/03/2023 Start: 01-17-2022 End: 01-03-2023 Calcium.ionized [Moles/volume] in Blood CALCIUM IONIZED BLOOD Lab Routine Multiple myeloma not having achieved remission (HCC) Expected: 01/17/2022 (Approximate), Expires: 01/03/2023 [facility] Work Phone: Comment on above: Expected: 01/17/2022 (Approximate), Expi res: 01/03/2023 Start: 01-17-2022 End: 01-03-2023 CBC W Auto Differential panel - Blood CBC + DIFF Lab Routine Multiple myeloma not having achieved remission (HCC) Expected: 01/17/2022 (Approximate), Expires: 01/03/2023 [facility] Work Phone: Comment on above: Expected: 01/17/2022 (Approximate), Expi res: 01/03/2023 Start: 01-17-2022 End: 01-03-2023 Comprehensive metabolic 2000 panel - Serum or Plasma COMP METABOLIC PANEL Lab Routine Multiple myeloma not having achieved remission (HCC) Expected: 01/17/2022 (Approximate), Expires: 01/03/2023 [facility] Work Phone: Comment on above: Expected: 01/17/2022 (Approximate), Expi res: 01/03/2023 Start: 01-17-2022 End: 03-19-2022 KAPPA/ORTIZ,FREE,SER KAPPA/ORTIZ,FREE,SER Lab Routine Multiple myeloma not having achieved remission (HCC) Expected: 01/17/2022 (Approximate), Expires: 03/19/2022 [facility] Work Phone: Comment on above: Expected: 01/17/2022 (Approximate), Expi res: 03/19/2022 Start: 01-17-2022 End: 01-03-2023 Lactate dehydrogenase [Enzymatic activity/volume] in Serum or Plasma LD LACTATE DEHYDRO Lab Routine Multiple myeloma not having achieved remission (HCC) Expected: 01/17/2022 (Approximate), Expires: 01/03/2023 [facility] Work Phone: Comment on above: Expected: 01/17/2022 (Approximate), Expi res: 01/03/2023 Start: 01-17-2022 End: 01-03-2023 MONOCLONAL PROTEIN, SERUM (BLOOD) MONOCLONAL PROTEIN, SERUM (BLOOD) Lab Routine Multiple myeloma not having achieved remission (HCC) Expected: 01/17/2022 (Approximate), Expires: 01/03/2023 [facility] Work Phone: Comment on above: Expected: 01/17/2022 (Approximate), Expi res: 01/03/2023 Start: 01-17-2022 End: 01-03-2023 Phosphate [Mass/volume] in Serum or Plasma PHOSPHORUS INORGANIC Lab Routine Multiple myeloma not having achieved remission (HCC) Expected: 01/17/2022 (Approximate), Expires: 01/03/2023 [facility] Work Phone: Comment on above: Expected: 01/17/2022 (Approximate), Expi res: 01/03/2023 Start: 01-17-2022 End: 01-03-2023 PROTEIN ELECTROPHORESIS SERUM W/INTERP PROTEIN ELECTROPHORESIS SERUM W/INTERP Lab Routine Multiple myeloma not having achieved remission (HCC) Expected: 01/17/2022 (Approximate), Expires: 01/03/2023 [facility] Work Phone: Comment on above: Expected: 01/17/2022 (Approximate), Expi res: 01/03/2023 Start: 01-17-2022 End: 01-03-2023 Urate [Mass/volume] in Serum or Plasma URIC ACID BLOOD Lab Routine Multiple myeloma not having achieved remission (HCC) Expected: 01/17/2022 (Approximate), Expires: 01/03/2023 [facility] Work Phone: Comment on above: Expected: 01/17/2022 (Approximate), Expi res: 01/03/2023 Start: 01-07-2022 Influenza vaccination INFLUENZA (#1) [facility] Start: 01-02-2022 End: 01-02-2022 Emergency department patient visit Departed Emergency [facility] Start: 01-01-2022 End: 12-18-2022 CBC W Auto Differential panel - Blood CBC + DIFF Lab Routine Multiple myeloma not having achieved remission (HCC) 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HCC) Immunodeficiency (HCC) Renal insufficiency Expected: 01/01/2022 (Approximate), Expires: 12/18/2022 [facility] Work Phone: Comment on above: Expected: 01/01/2022 (Approximate), Expi res: 12/18/2022 Start: 01-01-2022 End: 12-18-2022 Comprehensive metabolic 2000 panel - Serum or Plasma COMP METABOLIC PANEL Lab Routine Multiple myeloma not having achieved remission (HCC) 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HCC) Immunodeficiency (HCC) Renal insufficiency Expected: 01/01/2022 (Approximate), Expires: 12/18/2022 [facility] Work Phone: Comment on above: Expected: 01/01/2022 (Approximate), Expi res: 12/18/2022 Start: 12-19-2021 Glaucoma screening Diabetes: Retinopathy Screening [facility] Start: 12-18-2021 End: 11-20-2022 [id number] [Mass/volume] in Serum or Plasma B2 MICROGLOBULIN B Lab Routine Multiple myeloma not having achieved remission (HCC) Expected: 12/18/2021 (Approximate), Expires: 11/20/2022 [facility] Work Phone: Comment on above: Expected: 12/18/2021 (Approximate), Expi res: 11/20/2022 Start: 12-18-2021 End: 11-20-2022 Calcium.ionized [Moles/volume] in Blood CALCIUM IONIZED BLOOD Lab Routine Multiple myeloma not having achieved remission (HCC) Expected: 12/18/2021 (Approximate), Expires: 11/20/2022 [facility] Work Phone: Comment on above: Expected: 12/18/2021 (Approximate), Expi res: 11/20/2022 Start: 12-18-2021 End: 11-20-2022 CBC W Auto Differential panel - Blood CBC + DIFF Lab Routine Multiple myeloma not having achieved remission (HCC) Expected: 12/18/2021 (Approximate), Expires: 11/20/2022 [facility] Work Phone: Comment on above: Expected: 12/18/2021 (Approximate), Expi res: 11/20/2022 Start: 12-18-2021 End: 11-20-2022 Comprehensive metabolic 2000 panel - Serum or Plasma COMP METABOLIC PANEL Lab Routine Multiple myeloma not having achieved remission (HCC) Expected: 12/18/2021 (Approximate), Expires: 11/20/2022 [facility] Work Phone: Comment on above: Expected: 12/18/2021 (Approximate), Expi res: 11/20/2022 Start: 12-18-2021 End: 02-17-2022 KAPPA/ORTIZ,FREE,SER KAPPA/ORTIZ,FREE,SER Lab Routine Multiple myeloma not having achieved remission (HCC) Expected: 12/18/2021 (Approximate), Expires: 02/17/2022 [facility] Work Phone: Comment on above: Expected: 12/18/2021 (Approximate), Expi res: 02/17/2022 Start: 12-18-2021 End: 11-20-2022 Lactate dehydrogenase [Enzymatic activity/volume] in Serum or Plasma LD LACTATE DEHYDRO Lab Routine Multiple myeloma not having achieved remission (HCC) Expected: 12/18/2021 (Approximate), Expires: 11/20/2022 [facility] Work Phone: Comment on above: Expected: 12/18/2021 (Approximate), Expi res: 11/20/2022 Start: 12-18-2021 End: 11-20-2022 MONOCLONAL PROT 24 UR W/INTERP MONOCLONAL PROT 24 UR W/INTERP Lab Routine Multiple myeloma not having achieved remission (HCC) Expected: 12/18/2021 (Approximate), Expires: 11/20/2022 [facility] Work Phone: Comment on above: Expected: 12/18/2021 (Approximate), Expi res: 11/20/2022 Start: 12-18-2021 End: 11-20-2022 MONOCLONAL PROTEIN, SERUM (BLOOD) MONOCLONAL PROTEIN, SERUM (BLOOD) Lab Routine Multiple myeloma not having achieved remission (HCC) Expected: 12/18/2021 (Approximate), Expires: 11/20/2022 [facility] Work Phone: Comment on above: Expected: 12/18/2021 (Approximate), Expi res: 11/20/2022 Start: 12-18-2021 End: 11-20-2022 Phosphate [Mass/volume] in Serum or Plasma PHOSPHORUS INORGANIC Lab Routine Multiple myeloma not having achieved remission (HCC) Expected: 12/18/2021 (Approximate), Expires: 11/20/2022 [facility] Work Phone: Comment on above: Expected: 12/18/2021 (Approximate), Expi res: 11/20/2022 Start: 12-18-2021 End: 11-20-2022 PROT ELEC UR 24HR W/M SPIKE AND INTERP PROT ELEC UR 24HR W/M SPIKE AND INTERP Lab Routine Multiple myeloma not having achieved remission (HCC) Expected: 12/18/2021 (Approximate), Expires: 11/20/2022 [facility] Work Phone: Comment on above: Expected: 12/18/2021 (Approximate), Expi res: 11/20/2022 Start: 12-18-2021 End: 11-20-2022 PROTEIN ELECTROPHORESIS SERUM W/INTERP PROTEIN ELECTROPHORESIS SERUM W/INTERP Lab Routine Multiple myeloma not having achieved remission (HCC) Expected: 12/18/2021 (Approximate), Expires: 11/20/2022 [facility] Work Phone: Comment on above: Expected: 12/18/2021 (Approximate), Expi res: 11/20/2022 Start: 12-18-2021 End: 11-20-2022 Urate [Mass/volume] in Serum or Plasma URIC ACID BLOOD Lab Routine Multiple myeloma not having achieved remission (HCC) Expected: 12/18/2021 (Approximate), Expires: 11/20/2022 [facility] Work Phone: Comment on above: Expected: 12/18/2021 (Approximate), Expi res: 11/20/2022 Start: 11-20-2021 End: 10-23-2022 [id number] [Mass/volume] in Serum or Plasma B2 MICROGLOBULIN B Lab Routine Multiple myeloma not having achieved remission (HCC) Expected: 11/20/2021 (Approximate), Expires: 10/23/2022 [facility] Work Phone: Comment on above: Expected: 11/20/2021 (Approximate), Expi res: 10/23/2022 Start: 11-20-2021 End: 10-23-2022 Calcium.ionized [Moles/volume] in Blood CALCIUM IONIZED BLOOD Lab Routine Multiple myeloma not having achieved remission (HCC) Expected: 11/20/2021 (Approximate), Expires: 10/23/2022 [facility] Work Phone: Comment on above: Expected: 11/20/2021 (Approximate), Expi res: 10/23/2022 Start: 11-20-2021 End: 10-23-2022 CBC W Auto Differential panel - Blood CBC + DIFF Lab Routine Multiple myeloma not having achieved remission (HCC) Expected: 11/20/2021 (Approximate), Expires: 10/23/2022 [facility] Work Phone: Comment on above: Expected: 11/20/2021 (Approximate), Expi res: 10/23/2022 Start: 11-20-2021 End: 10-23-2022 Comprehensive metabolic 2000 panel - Serum or Plasma COMP METABOLIC PANEL Lab Routine Multiple myeloma not having achieved remission (HCC) Expected: 11/20/2021 (Approximate), Expires: 10/23/2022 [facility] Work Phone: Comment on above: Expected: 11/20/2021 (Approximate), Expi res: 10/23/2022 Start: 11-20-2021 End: 01-20-2022 KAPPA/ORTIZ,FREE,SER KAPPA/ORTIZ,FREE,SER Lab Routine Multiple myeloma not having achieved remission (HCC) Expected: 11/20/2021 (Approximate), Expires: 01/20/2022 [facility] Work Phone: Comment on above: Expected: 11/20/2021 (Approximate), Expi res: 01/20/2022 Start: 11-20-2021 End: 10-23-2022 Lactate dehydrogenase [Enzymatic activity/volume] in Serum or Plasma LD LACTATE DEHYDRO Lab Routine Multiple myeloma not having achieved remission (HCC) Expected: 11/20/2021 (Approximate), Expires: 10/23/2022 [facility] Work Phone: Comment on above: Expected: 11/20/2021 (Approximate), Expi res: 10/23/2022 Start: 11-20-2021 End: 01-20-2022 LIPID PANEL, NONFASTING [facility] Work Phone: Comment on above: Expected: 11/20/2021, Expires: Start: 11-20-2021 End: 10-23-2022 MONOCLONAL PROTEIN, SERUM (BLOOD) MONOCLONAL PROTEIN, SERUM (BLOOD) Lab Routine Multiple myeloma not having achieved remission (HCC) Expected: 11/20/2021 (Approximate), Expires: 10/23/2022 [facility] Work Phone: Comment on above: Expected: 11/20/2021 (Approximate), Expi res: 10/23/2022 Start: 11-20-2021 End: 10-23-2022 Phosphate [Mass/volume] in Serum or Plasma PHOSPHORUS INORGANIC Lab Routine Multiple myeloma not having achieved remission (HCC) Expected: 11/20/2021 (Approximate), Expires: 10/23/2022 [facility] Work Phone: Comment on above: Expected: 11/20/2021 (Approximate), Expi res: 10/23/2022 Start: 11-20-2021 End: 10-23-2022 PROTEIN ELECTROPHORESIS SERUM W/INTERP PROTEIN ELECTROPHORESIS SERUM W/INTERP Lab Routine Multiple myeloma not having achieved remission (HCC) Expected: 11/20/2021 (Approximate), Expires: 10/23/2022 [facility] Work Phone: Comment on above: Expected: 11/20/2021 (Approximate), Expi res: 10/23/2022 Start: 11-20-2021 End: 10-23-2022 Urate [Mass/volume] in Serum or Plasma URIC ACID BLOOD Lab Routine Multiple myeloma not having achieved remission (HCC) Expected: 11/20/2021 (Approximate), Expires: 10/23/2022 [facility] Work Phone: Comment on above: Expected: 11/20/2021 (Approximate), Expi res: 10/23/2022 Start: 11-11-2021 Hemoglobin A1c/Hemoglobin.total in Blood HBA1C [facility] Start: 09-29-2021 SHINGRIX VACCINE (2 of 2) SHINGRIX VACCINE (2 of 2) [facility] Start: 09-29-2021 SHINGRIX VACCINE (3 of 3) SHINGRIX VACCINE (3 of 3) [facility] Start: 09-25-2021 End: 08-28-2022 [id number] [Mass/volume] in Serum or Plasma B2 MICROGLOBULIN B Lab Routine Multiple myeloma not having achieved remission (HCC) Expected: 09/25/2021 (Approximate), Expires: 08/28/2022 [facility] Work Phone: Comment on above: Expected: 09/25/2021 (Approximate), Expi res: 08/28/2022 Start: 09-25-2021 End: 08-28-2022 CALCIUM IONIZED B CALCIUM IONIZED B Lab Routine Multiple myeloma not having achieved remission (HCC) Expected: 09/25/2021 (Approximate), Expires: 08/28/2022 [facility] Work Phone: Comment on above: Expected: 09/25/2021 (Approximate), Expi res: 08/28/2022 Start: 09-25-2021 End: 08-28-2022 CBC W Auto Differential panel - Blood CBC + DIFF Lab Routine Multiple myeloma not having achieved remission (HCC) Expected: 09/25/2021 (Approximate), Expires: 08/28/2022 [facility] Work Phone: Comment on above: Expected: 09/25/2021 (Approximate), Expi res: 08/28/2022 Start: 09-25-2021 End: 08-28-2022 Comprehensive metabolic 2000 panel - Serum or Plasma COMP METABOLIC PANEL Lab Routine Multiple myeloma not having achieved remission (HCC) Expected: 09/25/2021 (Approximate), Expires: 08/28/2022 [facility] Work Phone: Comment on above: Expected: 09/25/2021 (Approximate), Expi res: 08/28/2022 Start: 09-25-2021 End: 11-25-2021 KAPPA/ORTIZ,FREE,SER KAPPA/ORTIZ,FREE,SER Lab Routine Multiple myeloma not having achieved remission (HCC) 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) Expected: 09/25/2021 (Approximate), Expires: 11/25/2021 [facility] Work Phone: Comment on above: Expected: 09/25/2021 (Approximate), Expi res: 11/25/2021 Start: 09-25-2021 End: 08-28-2022 Lactate dehydrogenase [Enzymatic activity/volume] in Serum or Plasma LD LACTATE DEHYDRO Lab Routine Multiple myeloma not having achieved remission (HCC) Expected: 09/25/2021 (Approximate), Expires: 08/28/2022 [facility] Work Phone: Comment on above: Expected: 09/25/2021 (Approximate), Expi res: 08/28/2022 Start: 09-25-2021 End: 08-28-2022 MONOCLONAL PROTEIN, SERUM (BLOOD) MONOCLONAL PROTEIN, SERUM (BLOOD) Lab Routine Multiple myeloma not having achieved remission (HCC) Expected: 09/25/2021 (Approximate), Expires: 08/28/2022 [facility] Work Phone: Comment on above: Expected: 09/25/2021 (Approximate), Expi res: 08/28/2022 Start: 09-25-2021 End: 08-28-2022 Phosphate [Mass/volume] in Serum or Plasma PHOSPHORUS INORGANIC Lab Routine Multiple myeloma not having achieved remission (HCC) Expected: 09/25/2021 (Approximate), Expires: 08/28/2022 [facility] Work Phone: Comment on above: Expected: 09/25/2021 (Approximate), Expi res: 08/28/2022 Start: 09-25-2021 End: 08-28-2022 PROTEIN ELECTROPHORESIS SERUM W/INTERP PROTEIN ELECTROPHORESIS SERUM W/INTERP Lab Routine Multiple myeloma not having achieved remission (HCC) Expected: 09/25/2021 (Approximate), Expires: 08/28/2022 [facility] Work Phone: Comment on above: Expected: 09/25/2021 (Approximate), Expi res: 08/28/2022 Start: 09-25-2021 End: 08-28-2022 Urate [Mass/volume] in Serum or Plasma URIC ACID BLOOD Lab Routine Multiple myeloma not having achieved remission (HCC) Expected: 09/25/2021 (Approximate), Expires: 08/28/2022 [facility] Work Phone: Comment on above: Expected: 09/25/2021 (Approximate), Expi res: 08/28/2022 Start: 09-01-2021 3 comp foot exam completed DIABETIC FOOT EXAM [facility] Start: 09-01-2021 Diabetic foot examination Diabetic Foot Exam [facility] Start: 08-27-2021 End: 07-30-2022 [id number] [Mass/volume] in Serum or Plasma B2 MICROGLOBULIN B Lab Routine Multiple myeloma not having achieved remission (HCC) 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HCC) Expected: 08/27/2021 (Approximate), Expires: 07/30/2022 [facility] Work Phone: Comment on above: Expected: 08/27/2021 (Approximate), Expi res: 07/30/2022 Start: 08-27-2021 End: 07-30-2022 CALCIUM IONIZED B CALCIUM IONIZED B Lab Routine Multiple myeloma not having achieved remission (HCC) 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HCC) Expected: 08/27/2021 (Approximate), Expires: 07/30/2022 [facility] Work Phone: Comment on above: Expected: 08/27/2021 (Approximate), Expi res: 07/30/2022 Start: 08-27-2021 End: 07-30-2022 CBC W Auto Differential panel - Blood CBC + DIFF Lab Routine Multiple myeloma not having achieved remission (HCC) 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HCC) Expected: 08/27/2021 (Approximate), Expires: 07/30/2022 [facility] Work Phone: Comment on above: Expected: 08/27/2021 (Approximate), Expi res: 07/30/2022 Start: 08-27-2021 End: 07-30-2022 Comprehensive metabolic 2000 panel - Serum or Plasma COMP METABOLIC PANEL Lab Routine Multiple myeloma not having achieved remission (HCC) 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HCC) Expected: 08/27/2021 (Approximate), Expires: 07/30/2022 [facility] Work Phone: Comment on above: Expected: 08/27/2021 (Approximate), Expi res: 07/30/2022 Start: 08-27-2021 End: 10-27-2021 KAPPA/ORTIZ,FREE,SER KAPPA/ORTIZ,FREE,SER Lab Routine Multiple myeloma not having achieved remission (HCC) 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HCC) Expected: 08/27/2021 (Approximate), Expires: 10/27/2021 [facility] Work Phone: Comment on above: Expected: 08/27/2021 (Approximate), Expi res: 10/27/2021 Start: 08-27-2021 End: 07-30-2022 Lactate dehydrogenase [Enzymatic activity/volume] in Serum or Plasma LD LACTATE DEHYDRO Lab Routine Multiple myeloma not having achieved remission (HCC) 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HCC) Expected: 08/27/2021 (Approximate), Expires: 07/30/2022 [facility] Work Phone: Comment on above: Expected: 08/27/2021 (Approximate), Expi res: 07/30/2022 Start: 08-27-2021 End: 07-30-2022 MONOCLONAL PROTEIN, SERUM (BLOOD) MONOCLONAL PROTEIN, SERUM (BLOOD) Lab Routine Multiple myeloma not having achieved remission (HCC) 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HCC) Expected: 08/27/2021 (Approximate), Expires: 07/30/2022 [facility] Work Phone: Comment on above: Expected: 08/27/2021 (Approximate), Expi res: 07/30/2022 Start: 08-27-2021 End: 07-30-2022 Phosphate [Mass/volume] in Serum or Plasma PHOSPHORUS INORGANIC Lab Routine Multiple myeloma not having achieved remission (HCC) 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HCC) Expected: 08/27/2021 (Approximate), Expires: 07/30/2022 [facility] Work Phone: Comment on above: Expected: 08/27/2021 (Approximate), Expi res: 07/30/2022 Start: 08-27-2021 End: 07-30-2022 PROTEIN ELECTROPHORESIS SERUM W/INTERP PROTEIN ELECTROPHORESIS SERUM W/INTERP Lab Routine Multiple myeloma not having achieved remission (HCC) 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) Dietetic diarrhea Expected: 08/27/2021 (Approximate), Expires: 07/30/2022 [facility] Work Phone: Comment on above: Expected: 08/27/2021 (Approximate), Expi res: 07/30/2022 Start: 08-27-2021 End: 07-30-2022 Urate [Mass/volume] in Serum or Plasma URIC ACID BLOOD Lab Routine Multiple myeloma not having achieved remission (HCC) 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HCC) Expected: 08/27/2021 (Approximate), Expires: 07/30/2022 [facility] Work Phone: Comment on above: Expected: 08/27/2021 (Approximate), Expi res: 07/30/2022 Start: 05-21-2021 Hemoglobin A1c/Hemoglobin.total in Blood HBA1C [facility] Start: 05-09-2021 ADVANCE DIRECTIVE DISCUSSION ADVANCE DIRECTIVE DISCUSSION [facility] Start: 03-26-2021 COVID-19 VACCINE (5 - Booster) COVID-19 VACCINE (5 - Booster) [facility] Start: 03-26-2021 COVID-19 VACCINE (5 - Mixed Product risk series) COVID-19 VACCINE (5 - Mixed Product risk series) [facility] Start: 02-26-2021 COVID-19 VACCINE (3 - Inadvertent risk 4-dose series) COVID-19 VACCINE (3 - Inadvertent risk 4-dose series) [facility] Start: 02-26-2021 COVID-19 VACCINE (3 - Mixed Product risk series) COVID-19 VACCINE (3 - Mixed Product risk series) [facility] Start: 12-22-2020 Hemoglobin A1c/Hemoglobin.total in Blood HBA1C [facility] Start: 02-21-2018 PNEUMOVAX AGE 65 AND OVER WITH 5YR LOOKBACK (#1) PNEUMOVAX AGE 65 AND OVER WITH 5YR LOOKBACK (#1) [facility] Start: 04-14-2016 SHINGRIX VACCINE (2 of 3) SHINGRIX VACCINE (2 of 3) [facility] Start: 2012 RSV Vaccine (1 - 1-dose 60+ series) RSV Vaccine (1 - 1-dose 60+ series) [facility] Start: 2012 RSV Vaccine (1 - Risk 60-74 years 1-dose series) RSV Vaccine (1 - Risk 60-74 years 1-dose series) [facility] Start: 2002 Influenza vaccination LUNG CANCER SCREENING [facility] Start: 1997 COLOGUARD (FIT-DNA) COLOGUARD (FIT-DNA) [facility] Start: 1997 Colonoscopy COLONOSCOPY [facility] Start: 1997 COLORECTAL CANCER SCREENING COLORECTAL CANCER SCREENING [facility] Start: [address] COLONOGRAPHY [facility] Start: 1997 FECAL OCCULT BLOOD FECAL OCCULT BLOOD [facility] Start: 1997 Screening for malignant neoplasm of colon [facility] Start: 1997 SIGMOIDOSCOPY SIGMOIDOSCOPY [facility] Start: 1970 ANNUAL PCP TEAM CHRONIC DISEASE VISIT ANNUAL PCP TEAM CHRONIC DISEASE VISIT [facility] Start: 1970 Anxiety Screening Anxiety Screening [facility] Start: 1970 BP CONTROLLED (<130/80) BP CONTROLLED (<130/80) [facility] in Start: 1970 Hepatitis B surface antibody level LDL CHOLESTEROL [facility] Start: 1970 HEPATITIS C SCREENING HEPATITIS C SCREENING [facility] Start: 1962 Glaucoma screening Dilated Retinal Exam [facility] Start: 1962 Hepatitis B screening URINE ALBUMIN:CREATININE RATIO [facility] Start: 1962 Hepatitis C antibody, confirmatory test DILATED RETINAL EXAM [facility] Start: 1952 ABDOMINAL AORTIC ANEURYSM SCREENING ABDOMINAL AORTIC ANEURYSM SCREENING [facility] Start: 1952 Abdominal aortic aneurysm screening Abdominal Aortic Aneurysm Screening [facility] Start: 1952 Screening for malignant neoplasm of colon [facility] Bacteria identified in Unspecified specimen by Aerobe culture [facility] Work Phone: Bacteria identified in Unspecified specimen by Aerobe culture [facility] BLOOD CULTURE 1 BLOOD CULTURE 1 Lab Routine 04/17/2024 3:00 PM EST [facility] BLOOD CULTURE 2 BLOOD CULTURE 2 Lab Routine 04/17/2024 3:12 PM EST [facility] End: 12-29-2024 CBC W Auto Differential panel - Blood COMPLETE BLOOD COUNT AND DIFFERENTIAL Lab Routine Multiple myeloma not having achieved remission (HCC) Once per week for 20 Occurrences starting 12/30/2023 until 12/29/2024 [facility] Comment on above: Once per week for 20 Occurrences startin g 12/30/2023 until 12/29/2024 End: 04-16-2025 CBC W Auto Differential panel - Blood COMPLETE BLOOD COUNT AND DIFFERENTIAL Lab Routine Multiple myeloma not having achieved remission (HCC) Neutropenia associated with infection (HCC) Thrombocytopenia (HCC) Hepatocellular carcinoma (HCC) 3x per week for 21 Occurrences starting 04/16/2024 until 04/16/2025 [facility] Comment on above: 3x per week for 21 Occurrences starting 04/16/2024 until 04/16/2025 End: 07-30-2025 CBC W Auto Differential panel - Blood COMPLETE BLOOD COUNT AND DIFFERENTIAL Lab Routine Multiple myeloma not having achieved remission (HCC) Chemotherapy-induced neutropenia (HCC) Hepatocellular carcinoma (HCC) Neutropenia associated with infection (HCC) Thrombocytopenia (HCC) 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), type 2 with complications (HCC) Stage 3 chronic kidney disease, unspecified whether stage 3a or 3b CKD (HCC) 3x per week for 150 Occurrences starting 07/30/2024 until 07/30/2025 [facility] Comment on above: 3x per week for 150 Occurrences starting 07/30/2024 until 07/30/2025 End: 12-29-2024 Comprehensive metabolic 2000 panel - Serum or Plasma COMPREHENSIVE METABOLIC PANEL Lab Routine Multiple myeloma not having achieved remission (HCC) 3x per week for 60 Occurrences starting 12/30/2023 until 12/29/2024 [facility] Comment on above: 3x per week for 60 Occurrences starting 12/30/2023 until 12/29/2024 Comprehensive metabo lic 2000 panel - Serum or Plasma COMPREHENSIVE METABOLIC PANEL Lab Routine Multiple myeloma not having achieved remission (HCC) 01/10/2024 2:04 PM EDT [facility] Work Phone: End: 07-30-2025 Comprehensive metabolic 2000 panel - Serum or Plasma COMPREHENSIVE METABOLIC PANEL Lab Routine Multiple myeloma not having achieved remission (HCC) Chemotherapy-induced neutropenia (HCC) Hepatocellular carcinoma (HCC) Neutropenia associated with infection (HCC) Thrombocytopenia (HCC) 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), type 2 with complications (HCC) Stage 3 chronic kidney disease, unspecified whether stage 3a or 3b CKD (HCC) 3x per week for 150 Occurrences starting 07/30/2024 until 07/30/2025 [facility] Comment on above: 3x per week for 150 Occurrences starting 07/30/2024 until 07/30/2025 End: 02-17-2024 Ct abdomen w/contrast material CT LIVER W IVCON Radiology Routine Hepatocellular carcinoma (HCC) 1 Occurrences starting 01/18/2023 until 02/17/2024 [facility] Work Phone: Comment on above: 1 Occurrences starting 01/18/2023 until 02/17/2024 ECG COMPLETE ECG COMPLETE ECG Routine Paroxysmal atrial fibrillation (HCC) Ordered: 07/26/2024 [facility] Work Phone: Comment on above: Ordered: 07/26/2024 Guidance for biopsy of Bone marrow IMAGING GUIDED BIOPSY BONE MARROW (HEMATOLOGY) Radiology Routine Multiple myeloma not having achieved remission (HCC) Ordered: 09/15/2023 [facility] Comment on above: Ordered: 09/15/2023 End: 12-29-2024 Lactate dehydrogenase [Enzymatic activity/volume] in Serum or Plasma LACTATE DEHYDROGENASE Lab Routine Multiple myeloma not having achieved remission (HCC) 3x per week for 60 Occurrences starting 12/30/2023 until 12/29/2024 [facility] Work Phone: Comment on above: 3x per week for 60 Occurrences starting 12/30/2023 until 12/29/2024 End: 07-30-2025 Lactate dehydrogenase [Enzymatic activity/volume] in Serum or Plasma LACTATE DEHYDROGENASE Lab Routine Multiple myeloma not having achieved remission (HCC) Chemotherapy-induced neutropenia (HCC) Hepatocellular carcinoma (HCC) Neutropenia associated with infection (HCC) Thrombocytopenia (HCC) 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), type 2 with complications (HCC) Stage 3 chronic kidney disease, unspecified whether stage 3a or 3b CKD (HCC) 3x per week for 150 Occurrences starting 07/30/2024 until 07/30/2025 [facility] Work Phone: Comment on above: 3x per week for 150 Occurrences starting 07/30/2024 until 07/30/2025 MONOCLONAL PROT 24 U R W/INTERP MONOCLONAL PROT 24 UR W/INTERP Lab Routine Multiple myeloma not having achieved remission (HCC) Ordered: 03/21/2022 [facility] Work Phone: Comment on above: Ordered: 03/21/2022 End: 01-07-2025 MR Liver WO and W contrast IV MRI LIVER (EOVIST) WO/W IVCON Radiology Routine Hepatocellular carcinoma (HCC) Multiple myeloma not having achieved remission (HCC) 1 Occurrences starting 12/09/2023 until 01/07/2025 [facility] Work Phone: Comment on above: 1 Occurrences starting 12/09/2023 until 01/07/2025 End: 12-11-2023 Mri abdomen w/o & w/contrast material MRI LIVER WO/W IVCON Radiology Routine Hepatocellular carcinoma (HCC) 1 Occurrences starting 11/11/2022 until 12/11/2023 [facility] Work Phone: Comment on above: 1 Occurrences starting 11/11/2022 until 12/11/2023 End: 10-01-2023 MRI LIVER (EOVIST) WO/W IVCON MRI LIVER (EOVIST) WO/W IVCON Radiology Routine 1 Occurrences starting 09/01/2022 until 10/01/2023 [facility] Work Phone: Comment on above: 1 Occurrences starting 09/01/2022 until 10/01/2023 Patient Education Abscess Incisi on and Drainage ED [facility] Work Phone: Patient referral [facility] Work Phone: End: 12-29-2024 Phosphate [Mass/volume] in Serum or Plasma PHOSPHORUS INORGANIC Lab Routine Multiple myeloma not having achieved remission (HCC) 3x per week for 60 Occurrences starting 12/30/2023 until 12/29/2024 [facility] Comment on above: 3x per week for 60 Occurrences starting 12/30/2023 until 12/29/2024 Superficial Wound Culture Superficial Wound Culture [facility] End: 12-29-2024 Urate [Mass/volume] in Serum or Plasma URIC ACID Lab Routine Multiple myeloma not having achieved remission (HCC) 3x per week for 60 Occurrences starting 12/30/2023 until 12/29/2024 [facility] Comment on above: 3x per week for 60 Occurrences starting 12/30/2023 until 12/29/2024 End: 03-26-2024 US KIDNEY/BLADDER US KIDNEY/BLADDER Radiology Routine Renal lesion 1 Occurrences starting 02/25/2023 until 03/26/2024 [facility] Work Phone: Comment on above: 1 Occurrences starting 02/25/2023 until 03/26/2024 [facility] Immunizations Immunization Date Immunization Notes Care Provider Fa [facility] 01-24-2024 influenza, high dose seasonal, preservative-free Taya Alexander [employer] Work Phone: [facility] 03-25-2023 influenza, injectabl e, quadrivalent, preservative free Orlin Kirkville DO Work Phone: [facility] 03-25-2023 influenza virus vacc ine, unspecified formulation Gela Liu MD Work Phone: [facility] 02-17-2022 influenza (HD-IIV4) vaccine, age 65+ yr, high dose, quadrivalent, PF (FLUZONE HIGH-DOSE) Vimal Crandall MD Work Phone: [facility] 02-17-2022 influenza, high dose seasonal, preservative-free Orlin Mccauleyston DO Work Phone: [facility] 02-17-2022 influenza, injectabl e, quadrivalent, contains preservative Vimal Crandall MD Work Phone: [facility] 02-17-2022 influenza virus vacc ine, unspecified formulation Denis Almanza MD Work Phone: [facility] [facility] 09-24-2021 hepatitis A vaccine, adult dosage Vimal Crandall MD Work Phone: [facility] 09-24-2021 hepatitis B vaccine, adult dosage Vimal Crandall MD Work Phone: [facility] 08-24-2021 tetanus and diphther ia toxoids, adsorbed, preservative free, for adult use (5 Lf of tetanus toxoid and 2 Lf of diphtheria toxoid) Arin Small [facility] Work Phone: [facility] 08-04-2021 pneumococcal (PCV20) vaccine, 20 valent (PREVNAR 20) [facility] 08-04-2021 zoster vaccine recombinant Arin [facility] Work Phone: [facility] 06-24-2021 haemophilus influenz ae type b vaccine, conjugate unspecified formulation [facility] 06-22-2021 tetanus and diphther ia toxoids, adsorbed, preservative free, for adult use (2 Lf of tetanus toxoid and 2 Lf of diphtheria toxoid) [facility] 06-22-2021 tetanus and diphther ia toxoids, adsorbed, preservative free, for adult use (5 Lf of tetanus toxoid and 2 Lf of diphtheria toxoid) [facility] 05-20-2021 pneumococcal (PCV20) vaccine, 20 valent (PREVNAR 20) [facility] 04-27-2021 hepatitis B vaccine, adult dosage [facility] 04-13-2021 haemophilus influenz ae type b vaccine, conjugate unspecified formulation [facility] 03-27-2021 hepatitis A vaccine, adult dosage [facility] 03-27-2021 hepatitis B vaccine, adult dosage [facility] 03-27-2021 tetanus toxoid, redu jesse diphtheria toxoid, and acellular pertussis vaccine, adsorbed [facility] 02-18-2021 influenza, high dose seasonal, preservative-free Vimal Crandall MD Work Phone: [facility] 02-18-2021 influenza, high-dose , quadrivalent vaccine (FLUZONE HIGH DOSE QUADRIVALENT) [facility] 02-18-2021 influenza, injectabl e, quadrivalent, contains preservative Vimal Crandall MD Work Phone: [facility] 01-29-2021 COVID-19 vaccine (UNSPECIFIED) [facility] 01-28-2021 COVID-19 original vaccine, age 12+ yr, monovalent (PFIZER-BIONTECH - PURPLE TOP) Esmer Winston RD Work Phone: [facility] 01-08-2021 COVID-19 vaccine (UNSPECIFIED) [facility] 01-07-2021 COVID-19 original vaccine, age 12+ yr, monovalent (PFIZER-BIONTECH - PURPLE TOP) Esmer Winston RD Work Phone: [facility] 02-05-2020 influenza, high dose seasonal, preservative-free [facility] 02-05-2020 Influenza, High-dose Seasonal, Quadrivalent, Preservative Free Orlin Lorenzana DO Work Phone: [facility] 02-05-2020 influenza, injectabl e, quadrivalent, contains preservative Vimal Crandall MD Work Phone: [facility] 05-21-2019 pneumococcal conjuga te vaccine, 13 valent [facility] 03-09-2019 influenza, injectabl e, quadrivalent, contains preservative Vimal Crandall MD Work Phone: [facility] 03-09-2019 influenza, injectabl e, quadrivalent, preservative free [facility] 03-09-2019 influenza, intraderm al, quadrivalent, preservative free, injectable [facility] 04-10-2018 pneumococcal conjuga te vaccine, 13 valent [facility] 04-04-2018 influenza, high dose seasonal, preservative-free [facility] 04-04-2018 Influenza, High-dose Seasonal, Quadrivalent, Preservative Free Orlin Lorenzana DO Work Phone: [facility] 04-04-2018 influenza, injectabl e, quadrivalent, contains preservative Vimal Crandall MD Work Phone: [facility] 05-05-2017 influenza, injectabl e, quadrivalent, contains preservative Vimal Crandall MD Work Phone: [facility] 05-05-2017 influenza, seasonal, injectable [facility] 05-05-2017 influenza, seasonal, injectable, preservative free [facility] 05-05-2017 seasonal influenza, intradermal, preservative free [facility] 02-24-2016 influenza, injectabl e, quadrivalent, preservative free [facility] 02-18-2016 zoster vaccine, live [facility] 03-25-2014 tetanus toxoid, redu jesse diphtheria toxoid, and acellular pertussis vaccine, adsorbed [facility] 02-21-2013 pneumococcal polysaccharide vaccine, 23 valent [facility] Payers Date Payer Category Payer [facility] [id number] 2021 Self-pay [id number] 2017 Medicare MEDICARE MEDICAR E A AND B [id number] 2017-Present [phone] [place] [address] Medicare [id number] 2017 Medicare [id number] .[id number] 2015 Medicare [id number] 2.16.840.1.383330.19 2008 Blue Cross Blue Shield 1.2.8 [id number] 2008 Unknown ANTHEM ANTHEM BC BS FEP PPO [id number] 2008-Present [phone] [address] [place] [address] PPO [id number] 2008 Unknown [id number] 1.13.159.2.7 .[id number] 1959 Blue Cross Blue Shield [id number] 2.16.840.1.818422.19 1952 Unknown [id number] 2.16.840.1.516324.3.579.2.5 93 1952 Unknown [id number] 2.16.840.1.403769.3.579.2.7 18 1952 Unknown [id number] 2.16.840.1.032125.3.579.2.7 18 1952 Unknown [id number] 2.16.840.1.817485.3.579.2.7 18 1952 Unknown [id number] 2.16.840.1.898322.3.579.2.7 18 1952 Unknown [id number] 2.16.840.1.042010.3.579.2.1 259 1952 Unknown [id number] 2.16.840.1.982159.3.579.2.1 259 1952 Unknown [id number] 2.16.840.1.767236.3.579.2.1 259 1952 Unknown [id number] 2.16.840.1.991200.3.579.2.1 259 1952 Unknown [id number] 2.16.840.1.381685.3.579.2.1 259 1952 Unknown [id number] 2.16.840.1.103088.3.579.2.1 259 1952 Unknown [id number] 2.16.840.1.530892.3.579.2.1 259 1952 Unknown [id number] 2.16.840.1.805356.3.579.2.1 1952 Unknown [id number] 2.16.840.1.438362.3.579.2.1 1952 Unknown [id number] 2.16.840.1.527967.3.579.2.1 1952 Unknown [id number] 2.16.840.1.843329.3.579.2.1 1952 Unknown [id number] 2.16.840.1.221485.3.579.2.1 1952 Unknown [id number] 2.16.840.1.459136.3.579.2.1 1952 Unknown [id number] 2.16.840.1.962211.3.579.2.1 1952 Unknown [id number] 2.16.840.1.253618.3.579.2.1 1952 Unknown [id number] 2.16.840.1.659552.3.579.2.1 1952 Unknown [id number] 2.16.840.1.560812.3.579.2.1 1952 Unknown [id number] 2.16.840.1.591364.3.579.2.1 1952 Unknown [id number] 2.16.840.1.096006.3.579.2.1 1952 Unknown [id number] 2.16.840.1.115623.3.579.2.1 1952 Unknown [id number] 2.16.840.1.465926.3.579.2.1 1952 Unknown [id number] 2.16.840.1.154362.3.579.2.1 259 1952 Unknown [id number] 2.16.840.1.477012.3.579.2.1 259 1952 Unknown [id number] 2.16.840.1.396987.3.579.2.1 259 1952 Unknown [id number] 2.16.840.1.535193.3.579.2.1 259 1952 Unknown [id number] 2.16.840.1.476256.3.579.2.1 259 1952 Unknown [id number] 2.16.840.1.690716.3.579.2.1 259 1952 Unknown [id number] 2.16.840.1.248412.3.579.2.1 259 Unknown [facility] Health Claims [id number] Unknown [id number] 2.16.840.1.950416.3.579.2.5 31 Unknown [id number] 2.16.840.1.183333.3.579.2.5 31 Unknown [id number] 2.16.840.1.557271.3.579.2.5 31 Unknown [id number] 2.16.840.1.263506.3.579.2.5 31 Unknown [id number] 2.16.840.1.807618.3.579.2.5 31 Unknown [id number] 2.16.840.1.961474.3.579.2.5 31 Social History Date Type Detail Facility Start: 11-28-2019 End: 06-15-2024 Tobacco smoking status NHIS Ex-smoker [facility] Start: 11-28-2019 End: 09-17-2022 Cigarettes smoked current (pack per day) - Reported 1 [facility] Work Phone: Start: 11-28-2019 End: 06-15-2024 Tobacco use and exposure Smokeless tobacco non-user [facility] Start: 07-30-2021 End: 07-30-2024 Alcohol intake Current drinker of alcohol (finding) [facility] Start: 08-20-2020 History SDOH Alcohol Comment occassional [facility] Start: 11-28-2019 End: 12-18-2021 Tobacco Comment 03/30/2018 [facility] Start: 1950 Sex Assigned At Male [facility] Start: 07-20-2021 End: 03-17-2022 Exposure to SARS-CoV-2 (event) Not sure [facility] Start: 09-17-2022 End: 11-11-2022 Sex Assigned At [facility] Work Phone: Start: 05-09-1977 End: 05-09-2018 History of tobacco use Current smoker [facility] Start: 05-09-1977 End: 05-09-2018 History of tobacco use Cigarette Smoker [facility] History of tobacco use Passive smoker [facility] Start: 10-11-2022 History SDOH Financial 5 [facility] Start: 10-11-2022 History SDOH Food Worry 1 [facility] Start: 10-11-2022 History SDOH Transport Med 2 [facility] How hard is it for you to pay for the very basics like food, housing, medical care, and heating Not hard at all [facility] Work Phone: (I/We) worried whether (my/our) food would run out before (I/we) got money to buy more. Never true [facility] Work Phone: In the past 12 months, was there a time when you were not able to pay the mortgage or rent on time? No [facility] Work Phone: Start: 05-19-2020 Gender identity Identifies as male gender (finding) [facility] Start: 05-19-2020 Sexual orientation Heterosexual (li crocker) [facility] Are you now , , , , never or living with a partner? [facility] How often to you hav e a drink containing alcohol? Never [facility] Do you feel stress - tense, restless, nervous, or anxious, or unable to sleep at night because your mind is troubled all the time - these days [OSQ] Not at all [facility] Start: 1950 Sex Assigned At Not on file [facility] Start: 02-13-2024 End: 06-07-2024 Alcoholic beverage intake Lifetime non-drinker (finding) [facility] Start: 10-14-2023 Alcohol Comment Caffine: 1 green tea [facility] NEGATED: Highlighted rowStart: NINF History of tobacco use Passive smoker [facility] Medical Equipment Procedure Code Equipment Code Equipment Original Text Equipment Identifier Dates Anchr Sut Gii Qanchr+ Othcrd - [id number] Start: 10-24-2013 Comment on above: Description: GII ANDRÉS [employer] [id number], [id number], [id number], [id number], [id number], [id number] Start: 10-13-2022 End: 04-26-2024 Comment on above: Use as directed up t o four times daily Goals Date Patient Goal Desired Activity /State Personal health goal Functional Status Date Assessment Result Facility 07-16-2024 Are you deaf, or do you have serious difficulty hearing No 07/16/2024 2:37 PM Donny Byers RN No [facility] 07-16-2024 Are you blind, or do you have serious difficulty seeing, even when wearing glasses No 07/16/2024 2:37 PM Donny Byers, ALEX No [facility] 07-16-2024 Do you have serious difficulty walking or climbing stairs No 07/16/2024 2:37 PM Donny Byers, ALEX No [facility] 07-16-2024 Do you have difficul ty dressing or bathing No 07/16/2024 2:37 PM Donny Byers, ALEX No [facility] 07-16-2024 Because of a physica l, mental, or emotional condition, do you have difficulty doing errands alone such as visiting a physician's office or shopping No 07/16/2024 2:37 PM Donny Byers, ALEX No [facility] 04-24-2024 Are you deaf, or do you have serious difficulty hearing No 04/24/2024 2:10 PM Juanita Koehler RN No [facility] 04-24-2024 Are you blind, or do you have serious difficulty seeing, even when wearing glasses No 04/24/2024 2:10 PM Juanita Koehler RN No [facility] 04-24-2024 Do you have serious difficulty walking or climbing stairs No 04/24/2024 2:10 PM Juanita Koehler RN No [facility] 04-24-2024 Do you have difficul ty dressing or bathing No 04/24/2024 2:10 PM Juanita Koehler RN No [facility] 04-24-2024 Because of a physica l, mental, or emotional condition, do you have difficulty doing errands alone such as visiting a physician's office or shopping No 04/24/2024 2:10 PM Jaunita Koehler RN No [facility] Mental Status Date Assessment Result Facility 07-16-2024 Because of a physica l, mental, or emotional condition, do you have serious difficulty concentrating, remembering, or making decisions No 07/16/2024 2:37 PM EDT Donny Valdes RN No [facility] 04-24-2024 Because of a physica l, mental, or emotional condition, do you have serious difficulty concentrating, remembering, or making decisions No 04/24/2024 2:10 PM Juanita Koehler RN No [facility] Clinical Notes 09-27-2020 to 07-30-2024 Patient InstructionsVimal Crandall MD - 07/30/2024 8:40 AM EDTOsvaldo Moreira MD - 07/27/2024 10:02 AM EDTPatient Blake Lozada APRN.CNP - 07/26/2024 3:00 PM EDT Note Date & Type Note Facility 07-30-2024 Instructions Esther Portillo - 07/30/2024 9:09 AM EDT Resume treatment today - C1 D1 Peace + Pom (2mg daily) + Dex (20mg once weekly) Neupogen 480 mcg today x4 daily doses NPLATE today With Neupogen #4 on : Labs and Hydration same day RTC in 1 week for consideration of C1 D8 Peace Labs weekly Neupogen for ANC < 1.0 & NPLATE if indicated Hold next week's Pomalyst until cleared by physician at appointment Start Augmentin and Cipro today Continue allopurinol 100mg daily documented in this encounter [facility] 07-30-2024 History of Present illness Narrative Images from the original note were not included. NAME: Jon Bauer [facility] NO.: [id number] DATE OF SERVICE: July 30, 2024 ([email or web address]) Some elements in this clinic note that are critical to medical decision making have been carefully reviewed and included from a prior clinic note dated: July 17, 2024 (Raz) Additional Clinicians involved in Jon Bauer's care: Dr. Lomeli, Dr. Frankie Campbell DIAGNOSIS: Multiple myeloma followup ASSESSMENT: This is a 73 year old man diagnosed with an IgG lambda monoclonal gammopathy in 2019 and was then noted to have rising M-spike and PET scan documented a sternal lesion. 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 ISS and R-ISS stage II disease. He had a partial response to induction therapy and has recovered following Autologous stem cell infusion. Up to date on post transplant vaccinations. Mild thrombocytopenia - some worsening - will consider N-plate. Additional medical issues include: - Immunodeficiency following HDSCT and patient will continue Acyclovir and post-transplant immunizations per Infectious Disease protocol. - Renal failure is improving and we will continue monitoring. - Neuropathy is stable. - Diabetes mellitus managed by PCP is elevated from steroids. - Hepatocellular carcinoma discovered August 2022, resected October 2022. Initial M-Protein is 3.31 prior to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 He offers no new complaints today. No new issues, problems or concerns. Updated Visit, August 28, 2021: Diarrhea associated with Metformin now improved significantly. His counts are fairly stable but platelets are a little low. Will continue treatment as is for now and consider holding the dose if he gets lower. Back on insulin for managing blood sugars. Updated Visit, July 30, 2021: Still has diarrhea biopsy results pending. Leisa is with him today. He is doing well overall. Will resume Revlimid at 5 mg daily. Platelets are at 100k. Updated Visit, July 16, 2021: Telephone only for 12 minutes Called Jon as requested and his counts were reviewed. His platelets are improving but still less than 100k. Unfortunately he still has daily diarrhea but is seeing Dr. Garay next week. We will plan to hold his Revilimid for a few weeks longer. Updated Visit, July 02, 2021: Platelets suppressed after having restarted revlimid 1 week ago - will ask him to stop. Still having diarrhea and is going to GI tomorrow M-spike continues to drop slowly. If unable to continue Rev, will change maintenance. Updated Visit, May 07, 2021: Will resume lexapro for depression. May be confusing ativan with lexapro No additional rash - Leisa is with him today. If it recurs, we can switch maintenance to Ixazomib or pomalidomide - defer to transplant team. Updated Visit, April 17, 2021: Walking better, neuropathy improving, fatigue resolving, appetite is improved. Only thing worse is restless legs in the evening. Getting his vaccination series. Labs stable. Rash is resolved. Updated Visit, January 28, 2021: Intermittent bowel issues but no significant problems. Both COVID-19 Vax Pfizer as of tomorrow Balance and activity levels are better - dizziness has resolved. recovereing from mild Upper respiratory viral infection Updated Visit, December 26, 2020: Jon returns today reporting a hospitalization for SBO with intractable nausea 12/16/2020. Managed conservatively and resolved. Proceed with vaccination schedule Start with COVID-19 vax. Occult Blood in stools - consider CT at next visit. Updated Visit, December 05, 2020: Occasional swelling in knees and ankles but is walking and getting more active. Still gets cold easily and has intermittent diarrhea but less than previous. Anemia is improved. Still has fatigue but is improving with continued activity. D100 s approximately 12/27/2020 and will need to start maintenance Revlimid beyond that time. He will need COVID Vax and others on schedule that he has. Updated Visit, November 13, 2020: Jon is 70 yo and underwent Autologous transplant. September 19, 2020 was day of Autologous transplant and is doing well. We will continue monitoring his response and will anticipate starting maintenance therapy at the appropriate time. He had recent resolution of GI symptoms due to a prolonged course of Cipro- which once identified was stopped and symptoms resolved. 08/24/2020 his pretransplant testing revealed a 24-hour urine with 0.02 gm M spike. His serum M protein was 0.61, serum kappa light chains 15.3, serum lambda light chain 17.0, serum kappa/lambda ratio 0.90 (normal 0.26-1.65), and his bone marrow examination from 08/19/2020 was 40% cellular with less than 5% plasma cells and normal cytogenetics. His pretransplant disease response was a OK. Transplant overview: Protocol(s): 3422 1C Preparative regimen: Melphalan Mobilization regimen: plerixafor & neupogen Stem cell source: apheresis CD34 cell dose (x10e6/kg): 4.05 Date of transplant: 09/19/2020 Updated Visit, August 11, 2020: Jon is 69 years old and returns to resume treatment with Velcade plus Revlimid just prior to getting autologous transplant. He has recovered from Covid and is much more active and feels quite a bit better. Fatigue is resolved and he had a great week last week. His counts have recovered and he is safe to proceed. Updated Visit, July 11, 2020: Jon is 69 yo and ended up getting COVID-19 and we held treatment. He has now recovered from the acute effects and has also normalized his kidney function. We will resume treatment next week. Still fatigued, didn't end up in the hospital at least. Updated Visit, June 04, 2020: Jon is 69 yo and returns for ongoing treatment of MM with RVD. He is having difficulty with tolerance and complains of persisting diarrhea - will stop revlimid (he's still taking 25mg). He saw Dr. Campbell for transplant and we will get a 24 hour urine IEP with the next assessment. We will have a break in treatment and then start Rev at a lower dose as previously discussed with him. Updated Visit, May 19, 2020: Feel better but has burning in his stomach which we will try mylanta rather than Pepto-bismol. He is due to see BMT tomorrow virtually and otherwise, with the resolution of his symptoms from last week, he will resume treamtent as scheduled. He has responsive disease on RVD. Updated Visit, May 12, 2020: Jon is 69 yo and is being treated from IgG Lambda multiple myeloma with initial M-spike of 3.3 gm and small lytic lesions in both humeral heads and distal right femur. PET CT noted a lesion on the sternum. He is due for cycle 4 but feels lousy with respect to energy and persisting nausea. He has mild sensory neuropathy as well and is struggling with the decadron to manage his sugars. Updated Visit, April 14, 2020: Jon is 69 years old and returns for treatment for his newly diagnosed multiple myeloma currently on RVD. 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 Bone marrow biopsy in December 2019 revealed findings consistent with smoldering myeloma but with small lytic lesions in both humeral heads as well as right distal femur and an additional lesion noted on the sternum by PET/CT, we elected to treat him with 8-10 cycles of RVD. I discussed consideration of pulmonary transplant with him at his last visit and I will plan on referring him following his third cycle of treatment. He reports that he had issues with nausea and diarrhea, as well gas. Everything is settled down, but he is anxious about symptoms going forward. Updated visit, March 17, 2020: Jon is 69 years old and returns with his Leisa for treatment of newly diagnosed multiple myeloma for which he has been started on RVD. He was followed for a monoclonal gammopathy IgG lambda of 3.3 g since November 2018. Biopsy in December 2019 demonstrated what appeared to be smoldering myeloma but he had small lytic lesions in both humeral heads as well as distal right femur. PET/CT showed an additional lesion in the sternum but did not find the femoral or humeral head lesions based on these findings we electively started him on initial treatment. I anticipate 8-10 cycles of RVD and he returns today for his second cycle. He tolerated his first cycle well however he has some unpredictable bouts of diarrhea small rash on his neck that is resolving as well as candidal mucositis that resolved with Diflucan. Overall he is tolerating treatment very well, has no neuropathy and is willing to proceed with additional treatment as planned. Updated Visit, February 08, 2020: Jon Bauer is a 69 year old male seen for a monoclonal gammopathy found on routine labs. The patient was found to have a monoclonal gammopathy of (IgG) 3.3 gm with lambda specificity noted in Dr. BALDWIN's notes from 11/29/2018. 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 A PET/CT wich showed only a sternal lesion with uptake FDG with SUV 2.7 and no uptake in either femur or humeral heads. Findings are consistent with multiple myeloma and we will proceed with induction therapy. I sat with him and his Leisa and extensively reviewed the treatmtent plan as well as the risks and benefits. I anticipate 8-10 cycles of induction. I will discuss HCT with them at their next visit so as to not overwhelm them. He has mild neuropathy from poorly controlled diabetes and coronary artery calcification but otherwise has a well preserved performance status and could be appropriate despite being older than 65. PATHOLOGIC PROFILE/MOLECULAR DATA: 12/17/2019 - bone marrow biopsy and aspirate: Bone marrow, aspirate smear and core biopsy, with clot section and peripheral blood: -Involved by plasma cell neoplasm with 5 to 10% plasma cells. -Normocellular bone marrow 20% with trilineage hematopoiesis. -Stainable iron present. -Comment-the patient has a history of IgG lambda monoclonal protein. The bone marrow shows involvement by a plasma cell neoplasm with 3% plasma cells in the aspirate smear and 5 to 10% plasma cells by immunohistochemistry. Final classification of plasma cell neoplasms require correlation with additional clinical laboratory and/or radiologic findings. FISH for plasma cell neoplasm: Findings demonstrated plasma cell population with trisomy 9, trisomy 15 and gain of genetic material at the CCN D1 locus or trisomy 11. These findings are consistent with the presence of a plasma cell neoplasm and represent standard risk disease. Cytogenetics: Normal male karyotype 46, XY 20 REVIEW OF SYSTEMS Per HPI and otherwise negative by full review of organ systems. ECOG PERFORMANCE STATUS: 0 PHYSICAL EXAMINATION: Vitals: BP 139/77 Pulse 98 Temp (Src) 96.9 (Temporal) Resp 18 Ht 5' 10.669 [verified by 2 caregivers[ (1.80m) Wt 249 lb 9 oz (113.2kg) SpO2 100% BMI 35.13 kg/(m^2). Body surface area is 2.38 meters squared. Exam limited to gross visualization where appropriate. Gen.: This is an age-appropriate patient in no acute distress. Head: Appears atraumatic with no visible lesions. Eyes: Pupils equally round and reactive to light, extraocular muscles are intact. Neck: Supple. Respiratory: Appears to be respiring comfortably. Neurologic: Nonfocal to gross visualization. Alert and oriented 3. Psychiatric: No evidence of inappropriate anxiety or depression. Skin: Visible areas of skin without rash, lesions, wounds or petechiae. ALLERGIES: ALLERGIES Allergen Reactions Oseltamivir Vomiting, Other: See Comments got really sick // Tamiflu Diphenhydramine Other: See Comments Amoxicillin-[place] Cla* Diarrhea Sulfamethoxazole-Tr* GI Upset MEDICATIONS: metoprolol succinate ER (TOPROL XL) 25 mg 24 hr tablet^Take 0.5 tablets by mouth once daily. metoprolol 12.5mg XL with the onset of heart rate is greater than 110^Disp: 15 tablet^Rfl: 0 pomalidomide (POMALYST) 2 mg capsule^Take 1 capsule (2 mg) by mouth once daily. For 21 days, followed by 7 days off (beginning 07/30/2024)^Disp: 21 capsule^Rfl: 0 gabapentin (NEURONTIN) 100 mg capsule^Take 1 capsule by mouth three times a day for 30 days.^Disp: 90 capsule^Rfl: 0 allopurinol (ZYLOPRIM) 100 mg tablet^Take 1 tablet by mouth once daily.^Disp: 90 tablet^Rfl: 0 dexAMETHasone (DECADRON) 4 mg tablet^Take 5 tablets by mouth one time a week.^Disp: 60 tablet^Rfl: 1 aspirin, enteric coated (ASPIRIN, ENTERIC COATED) 81 mg EC tablet^Take 81 mg by mouth once daily.^Disp: ^Rfl: acetaminophen (TYLENOL EXTRA STRENGTH) 500 mg tablet^Take 1,000 mg by mouth every 8 hours as needed.^Disp: ^Rfl: acyclovir (ZOVIRAX) 400 mg tablet^Take 1 tablet by mouth two times a day.^Disp: 60 tablet^Rfl: 2 tamsulosin (FLOMAX) 0.4 mg^Take 1 capsule by mouth daily at bedtime.^Disp: 90 capsule^Rfl: 3 Blood-Glucose Sensor (2C2PCOM G7 SENSOR) liana^as directed.^Disp: ^Rfl: MELATONIN ORAL^Take 5 mg by mouth at bedtime as needed.^Disp: ^Rfl: multivit-minerals/folic acid (CENTRUM MULTIGUMMIES ORAL)^Take 2 tablets by mouth once daily.^Disp: ^Rfl: L gasseri/B bifidum/B longum (PROBIOTIC COLON CARE ORAL)^Take by mouth once daily as needed.^Disp: ^Rfl: insulin aspart U-100 (NOVOLOG FLEXPEN U-100 INSULIN) 100 unit/mL (3 mL)^If Blood Glucose (mg/dL) is <110 Give 0 units 111-150 Give 0 units 151-200 Give 2 unit 201-250 Give 4 units 251-300 Give 6 units 301-350 Give 8 units 351-400 Give 10 units >400 Call physician.^Disp: 15 mL^Rfl: 2 Insulin [place], Disposable, (BD ULTRA-FINE NAY PEN NEEDLE) 32 gauge x ^Use as directed up to four times daily^Disp: 100 Each^Rfl: 3 rOPINIRole (REQUIP) 2 mg tablet^Take 1 tablet by mouth daily at bedtime.^Disp: ^Rfl: Cholecalciferol, Vitamin D3, (VITAMIN D) 25 mcg (1,000 unit) cap^Take 2 capsules by mouth once daily.^Disp: ^Rfl: atorvastatin (LIPITOR) 10 mg tablet^Take 10 mg by mouth once daily. ^Disp: ^Rfl: cetirizine (ZYRTEC) 10 mg tablet^Take 10 mg by mouth once daily.^Disp: ^Rfl: amoxicillin-clavulanate potassium (AUGMENTIN) 875-125 mg per tablet^Take 1 tablet by mouth every 12 hours for 14 days.^Disp: 28 tablet^Rfl: 0 ciprofloxacin HCl (CIPRO) 500 mg tablet^Take 1 tablet by mouth two times a day for 14 days.^Disp: 28 tablet^Rfl: 0 BASAGLAR KWIKPEN U-100 INSULIN 100 unit/mL (3 mL)^Inject 52 Units subcutaneously every morning.^Disp: 46.8 mL^Rfl: 0 (Patient taking differently: Inject 52 Units subcutaneously daily at bedtime.) diphenoxylate-atropine (LOMOTIL) 2.5-0.025 mg per tablet^Take 1 tablet by mouth four times a day as needed for diarrhea for up to 30 days.^Disp: 60 tablet^Rfl: 1 LABORATORY VALUES: WBC (k/uL) Date Value 07/30/2024 1.75 (L) RBC (m/uL) Date Value 07/30/2024 2.70 (L) Hemoglobin (g/dL) Date Value 07/30/2024 9.1 (L) Hematocrit (%) Date Value 07/30/2024 27.7 (L) MCV (fL) Date Value 07/30/2024 102.6 (H) MCH (pg) Date Value 07/30/2024 33.7 MCHC (g/dL) Date Value 07/30/2024 32.9 RDW-CV (%) Date Value 07/30/2024 16.7 (H) Platelet Count (k/uL) Date Value 07/30/2024 39 (L) MPV (fL) Date Value 07/30/2024 9.6 Glucose (mg/dL) Date Value 07/30/2024 358 (H) BUN (mg/dL) Date Value 07/30/2024 33 (H) Creatinine (mg/dL) Date Value 07/30/2024 1.11 Sodium (mmol/L) Date Value 07/30/2024 135 (L) Potassium (mmol/L) Date Value 07/30/2024 4.1 Chloride (mmol/L) Date Value 07/30/2024 102 CO2 (mmol/L) Date Value 07/30/2024 22 Protein, Total (g/dL) Date Value 07/30/2024 6.9 Albumin (g/dL) Date Value 07/30/2024 3.9 Calcium, Total (mg/dL) Date Value 07/30/2024 9.1 Alkaline Phosphatase (U/L) Date Value 07/30/2024 104 Bilirubin, Total (mg/dL) Date Value 07/30/2024 0.5 AST (U/L) Date Value 07/30/2024 46 (H) ALT (U/L) Date Value 07/30/2024 57 (H) Cholesterol, Total (mg/dL) Date Value 03/19/2024 92 Triglyceride (mg/dL) Date Value 03/19/2024 225 (H) M-Protein Concentration Date Value 06/15/2024 1.35 g/dL 05/17/2024 1.42 g/dL 03/12/2024 1.12 g/dL 02/03/2024 0.89 g/dL 12/09/2023 0.76 g/dL 07/02/2021 0.36 gm/dL 06/04/2021 0.31 gm/dL 04/17/2021 0.35 gm/dL 02/26/2021 0.37 gm/dL 12/26/2020 0.62 gm/dL DIAGNOSIS: (C90.00) Multiple myeloma not having achieved remission (HCC) (primary encounter diagnosis) Plan: LACTATE DEHYDROGENASE, COMPLETE BLOOD COUNT AND DIFFERENTIAL, COMPREHENSIVE METABOLIC PANEL, B2 MICROGLOBULIN, COMPLETE BLOOD COUNT AND DIFFERENTIAL, COMPREHENSIVE METABOLIC PANEL, LACTATE DEHYDROGENASE, PHOSPHORUS INORGANIC, PROTEIN ELECTROPHORESIS SERUM W/INTERP, MONOCLONAL PROTEIN, SERUM (BLOOD), URIC ACID, CALCIUM, IONIZED, KAPPA/ORTIZ,FREE,SER (D70.1, T45.1X5A) Chemotherapy-induced neutropenia (HCC) Plan: LACTATE DEHYDROGENASE, COMPLETE BLOOD COUNT AND DIFFERENTIAL, COMPREHENSIVE METABOLIC PANEL (C22.0) Hepatocellular carcinoma (HCC) Plan: LACTATE DEHYDROGENASE, COMPLETE BLOOD COUNT AND DIFFERENTIAL, COMPREHENSIVE METABOLIC PANEL (D70.3) Neutropenia associated with infection (HCC) Plan: LACTATE DEHYDROGENASE, COMPLETE BLOOD COUNT AND DIFFERENTIAL, COMPREHENSIVE METABOLIC PANEL (D69.6) Thrombocytopenia (HCC) Plan: LACTATE DEHYDROGENASE, COMPLETE BLOOD COUNT AND DIFFERENTIAL, COMPREHENSIVE METABOLIC PANEL (Z94.81) 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HCC) Plan: LACTATE DEHYDROGENASE, COMPLETE BLOOD COUNT AND DIFFERENTIAL, COMPREHENSIVE METABOLIC PANEL (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), type 2 with complications (HCC) Plan: LACTATE DEHYDROGENASE, COMPLETE BLOOD COUNT AND DIFFERENTIAL, COMPREHENSIVE METABOLIC PANEL (N18.30) Stage 3 chronic kidney disease, unspecified whether stage 3a or 3b CKD (HCC) Plan: LACTATE DEHYDROGENASE, COMPLETE BLOOD COUNT AND DIFFERENTIAL, COMPREHENSIVE METABOLIC PANEL PAST MEDICAL HISTORY Diagnosis Date Abdominal aortic aneurysm (HCC) Allergic rhinitis Anal cancer (HCC) Biceps rupture, proximal 04/09/2014 Bicipital tenosynovitis 11/01/2013 Chronic pain COVID-19 06/11/2020 positive test 06/13/20 Depression 09/18/2020 Continue home dose of lexapro Elevated blood protein elevated MGUS Generalized anxiety disorder Glaucoma Hepatocellular carcinoma (HCC) Hypercholesteremia 09/17/2020 Hold Lipitor inpatient Hyperlipemia Hypertension Leukocytosis MRSA infection Multiple myeloma (HCC) 09/17/2020 6 Cycles RVD (February 2020 through August 2020) [place] a [place] Multiple myeloma not having achieved remission (HCC) 02/04/2020 Neuropathy 08/20/2020 Continue home Gabapentin Obesity Restless leg syndrome 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 Protocol(s): 3422 1C Preparative regimen: Melphalan Mobilization regimen: plerixafor & neupogen Stem cell source: apheresis CD34 cell dose (x10e6/kg): 4.05 Date of transplant: 09/19/20 Type 2 diabetes (HCC) 08/20/2020 Takes metformin, Lantus, victoza & Farxiga Sliding Scale inpatient & Lantus Plan: -Endo following, recs in dc instructions for home Type II or unspecified type diabetes mellitus without mention of complication, uncontrolled PAST SURGICAL HISTORY Procedure Laterality Date EXTENSIVE FINGER SURGERY Right FOOT/TOES SURGERY PROC UNLISTED Left hammer toes and bunions HEPATECTOMY RESCJ TOTAL RIGHT LOBECTOMY 10/08/2022 lap right hepatectomy for T2Nx HCC LAPAROSCOPIC CHOLECYSTECTOMY 10/08/2022 LIVER BIOPSY PALATOP CL PALATE ATTACHMENT PHARYNGEAL FLAP age 5 PAST SURGICAL HISTORY OF MRSA cyst removed from face PAST SURGICAL HISTORY OF Cyst removed from mouth SHOULDER SURGERY HX Left tendon repair Social History Tobacco Use Smoking status: Former Current packs/day: 0.00 Average packs/day: 1 pack/day for 40.0 years (40.0 ttl pk-yrs) Types: Cigarettes Start date: 1977 Quit date: 2017 Years since quittin.2 Passive exposure: Past Smokeless tobacco: Never Tobacco comments: 03/30/2018 Vaping Use Vaping status: Never Used Substance Use Topics Alcohol use: Yes Comment: occassional Drug use: Yes Types: Marijuana Comment: THC edibles, 3x a week FAMILY HISTORY Problem Relation Age of Onset Cancer Mother brain 76 y/o Heart disease Mother Hypertension Mother Diabetes Father Heart disease Father Hypertension Father Heart Attack Father Diabetes Sister other (atrial fib) Sister COPD Sister No Known Problems Sister other (polio) Maternal Grandfather Diabetes Paternal Grandmother No Known Problems Daughter I spent a total of 40 minutes on the date of service which included preparing to see the patient, [id number] patient care, completing clinical documentation, obtaining and/or reviewing separately obtained history, performing a medically appropriate examination, counseling and educating the patient/family/caregiver, ordering medications, tests, or procedures, independently interpreting results (not separately reported), communicating results to the patient/family/caregiver, and care coordination (not separately reported). Vimal Crandall MD, CPE [facility] Provided at: [place], [place] Scribe Attestation: This note was scribed by Esther Portillo on July 30, 2024 under the direction and supervision of Dr. Vimal Crandall. I attest that all of the information documented is correct to the best of my knowledge. Provider Attestation: I, Vimal Crandall MD, attest that all information documented by the above scribe is correct, and was supervised by me and under my direction. CC: Dr. Letha [facility] Dr. Denis Moreira documented in this encounter [facility] 07-27-2024 History of Present illness Narrative Images from the original note were not included. [facility] (Elements copied from Vimal John's note dated 06/18/24, have been reviewed and updated where appropriate, and all reflect current assessment and medical decision making during today's encounter, July 27, 2024) Jon Bauer is a 73 year old male patient. CarePath: MM Second or Later Relapse Reason for visit: Consult, referred by Dr. Vimal John for relapsed multiple myeloma. My recommendations to the consult requesting physician are communicated via the shared electronic medical record or US mail. Baseline assessment on initial diagnosis date 2019 Cancer Staging (Hyperlink to Activity) No matching staging information was found for the patient. Symptomatic multiple myeloma IgG lambda Related Organ or Tissue Involvement (CRAB) or other Myeloma Defining Event (MDE): Bone disease: At least one lytic bone lesion on XR or CT if BMPC >=10%, at least 2 bone lesions on XR or CT if BMPC<10%, location of lytic lesion(s): Sternum Antecedent plasma cell dyscrasia: Monocolonal gammopathy of undetermined significance IgG lambda since 2019 Myeloma FISH panel: t[11;14], trisomy 9 and 15 Cytogenetics: 46,XY LDH: Unavailable at the time ISS stage: II (albumin < 3,5g/dL OR b2M 3,5-5,4mg/L) Monoclonal proteins at diagnosis: Serum M-spike: 3.31 gm/dL, Involved serum free light chains: 166.1 mg/L, and Uninvolved serum free light chains: 21.4 mg/L Total immunoglobulins at diagnosis: IgG 2078 mg/dL, IgA 16 mg/dL, IgM 11 mg/dL Bone marrow plasma cell infiltration: 5-10% Systemic treatment and disease course - Myeloma response according to: International uniform response criteria, Durie et al. Leukemia 20: 1467-73, 2006 and Jose Aie et al. ERRATUM in Leukemia 21:1134, 2007. Update in Loreta SV et al. Blood 117: 4056-1638, 2011 CASE HISTORY: Reverse Chronological Order (Dr. Benitez's note) 06/01/2024-06/11/2024 - Resumed Venclexta 50mg daily - discontinued 04/17/2024-04/24/2024 - Admitted at [facility], transferred to [place] with neutropenic fever 04/02/2024 - ER visit with neutropenic fever, UTI found 03/26/2024 - Neutropenic again and Venclexta held, neupogen x 4 given 03/19/2024 - Venclexta 100 mg restarted after neutropenia resolved 03/12/2024 - Venclexta held due to neutropenia and ongoing staph infection of skin, given neupogen x 4 doses 02/13/2024 - Resumed Venclexta 100 mg daily, however could not increase dose due to GI upset while on antibiotic for Staph infection 01/04/2024 - Venclexta 400mg daily - on hold 01/19-02/12 for neutropenia and knee surgery 01/02/2024 - MRI Liver: Cirrhotic liver morphology. A spontaneous splenorenal shunt is present and mild splenomegaly up to 14.2 cm are noted, compatible with portal hypertension. The portal veins are patent. There is no abdominal ascites. Table postsurgical changes from right posterior hepatectomy. No suspicious appearing liver mass identified. A 7 mm T2 hyperintense focus at the dome of the right hepatic lobe is unchanged from September 2022 and favored to represent a hemangioma. Stable-appearing Bosniak type I and type II cysts in both kidneys. Colonic diverticulosis. 10/06/2023 - BMBx: A-C. Bone marrow, aspirate smears, core biopsy, and clot section: - Plasma cell neoplasm, lambda monotypic (5-9% of total marrow cellularity). - Cellular bone marrow (40%) with trilineage hematopoiesis. - Stainable iron present. Comment: The patient is a 73-year-old male with IgG lambda plasma cell neoplasm, originally diagnosed in 2019, for which she had was received therapy as well as hepatocellular carcinoma, status post resection, presenting for restaging in the setting of increasing M protein concentration. Overall, the findings are diagnostic of recurrent/persistent plasma cell neoplasm, lambda monotypic. There is no immunophenotypic evidence of metastatic hepatocellular carcinoma. Subclassification of plasma cell neoplasms requires correlation with clinical, laboratory, and radiographic findings, as well as the pending cytogenetic and molecular genetic results. D. Peripheral blood smear: - Absolute neutropenia. - Normocytic anemia. - Thrombocytopenia. 09/19/2023 - MRI Liver: No evidence of suspicious enhancing hepatic mass. Diffuse hepatic fatty infiltration. Mildly complex right renal cyst stable in size since 05/24/23 but demonstrates new thin septal enhancement (Bosniak IIF). Consider attention at interval follow-up. 05/24/2023 - MRI Liver: Postsurgical change as described. No LR-5/OPTN Class 5 lesions. 03/10/2023 - US Kidney Bladder: 1.7 cm RIGHT renal lesion is at least a partially complex cystic lesion but may have a solid peripheral component. Renal neoplasm is not excluded. 02/10/2023 - CT liver with IV contrast: Since 10/01/2022, interval partial right hepatectomy. No findings to suggest residual or recurrent disease. A 1.1 cm hypodensity within the right renal upper pole is indeterminate 11/24/2022-12/30/2023 - Rev maintenance 10/08/2022 - Resection of Liver mass right lobe [id number] HCC, 3 cm, G2, + LVI 06/28/2022 - Held Revlimid due to recurring infections 07/30/2021 - Resumed Rev at 5mg daily due to thrombocytopenia 07/02/2021 - M-spike 0.36 12/26/2020 - Rx for Maintenance Rev 10mg daily 12/16/2020 - Hospitalization for SBO with intractable nausea 09/19/2020 - HDCT Auto transplant (D0) 08/24/2020 - Pretransplant testing revealed a 24-hour urine with 0.02 gm M spike. Serum M protein was 0.61, serum kappa light chains 15.3, serum lambda light chain 17.0, serum kappa/lambda ratio 0.90 (normal 0.26-1.65) 08/19/2020 - Bone marrow examination: 40% cellular with less than 5% plasma cells and normal cytogenetics 02/18/2020-08/25/2020 - RVD 02/01/2020 - PET/CT: No FDG avid neoplastic process in the neck, chest, or A/P. EXTREMITIES/SKELETON: 1.2 cm mildly FDG-avid lytic lesion in the sternum with SUV max of 2.7, may represent a site of active myeloma. No FDG avid destructive osseous lesions elsewhere. Specifically, no hypermetabolic lesions in humeral heads or femurs. 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 06/08/2019 - Bone Survey: Lytic lesions involving bilateral humeral heads and distal right femur Local treatments (radiation, surgery, kyphoplasty) None Interim history Mr. Bauer presents today for second opinion regarding evaluation of his relapsed multiple myeloma. Given his t(11;14) translocation, his primary equity director had initiated venetoclax at first relapse following autologous stem cell transplantation. Unfortunately, the patient has suffered from recurrent neutropenia on this therapy were necessitating dose reductions down to 50 mg daily. He was required several Neupogen injections most recently on 06/04, 06/05, and 06/07/2024. He has experienced remittent diarrhea while on his therapy. He has also suffered from cutaneous staphylococcal infections while on venetoclax. In terms of his disease status, his involved serum free light chain continues to slowly rise from approximately 8 months ago, as has his ataxia monoclonal paraprotein. At the present visit, he endorses fatigue, but denies fevers, chills, night sweats, nausea, vomiting, and further diarrhea. Denies worsening peripheral neuropathy at the time of our visit. He denies focal bone pain at this time. Interim Updates: 07/27/24: In the interim since our last visit, the patient was transition from venetoclax to daratumumab, pomalidomide, dexamethasone on approximately 06/18/2024. During the course of his first cycle, the patient was hospitalized for febrile neutropenia from 07/12/24 - 07/16/24 and received broad-spectrum antibiotics after which she was discharged on a 7-day course of ciprofloxacin and Augmentin. He was also diagnosed with new onset atrial fibrillation and initiated on metoprolol. He was not initiated on systemic anticoagulation. He is currently following with cardiology and will have a Holter monitor placed to assess atrial fibrillation burden. His intact monoclonal protein had increased slightly prior to the initiation of daratumumab, pomalidomide, dexamethasone. There are no recent paraprotein labs from this month for me to assess. Review of systems General: No fever , No chills, and No night sweats HEENT: No lumps, no difficulty chewing or swallowing, no enlarging tongue, no tooth aches. Musculoskeletal: No Pain Hematological: No bleeding or easy bruising. Lymphatic / Immune system: No lymph node enlargement or infection. Cardiovascular: No orthopnea, no dyspnea, no chest pain, no leg edema, no palpitations. Pulmonary: No dyspnea, no wheezing, no cough. PAST MEDICAL HISTORY Diagnosis Date Abdominal aortic aneurysm (HCC) Allergic rhinitis Anal cancer (HCC) Biceps rupture, proximal 04/09/2014 Bicipital tenosynovitis 11/01/2013 Chronic pain COVID-19 06/11/2020 positive test 06/13/20 Depression 09/18/2020 Continue home dose of lexapro Elevated blood protein elevated MGUS Generalized anxiety disorder Glaucoma Hepatocellular carcinoma (HCC) Hypercholesteremia 09/17/2020 Hold Lipitor inpatient Hyperlipemia Hypertension Leukocytosis MRSA infection Multiple myeloma ([facility]) 09/17/2020 6 Cycles RVD (February 2020 through August 2020) in a [place] Multiple myeloma not having achieved remission ([facility]) 02/04/2020 Neuropathy 08/20/2020 Continue home Gabapentin Obesity Restless leg syndrome 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 Protocol(s): 3422 1C Preparative regimen: Melphalan Mobilization regimen: plerixafor & neupogen Stem cell source: apheresis CD34 cell dose (x10e6/kg): 4.05 Date of transplant: 09/19/20 Type 2 diabetes (HCC) 08/20/2020 Takes metformin, Lantus, victoza & Farxiga Sliding Scale inpatient & Lantus Plan: -Endo following, recs in dc instructions for home Type II or unspecified type diabetes mellitus without mention of complication, uncontrolled PAST SURGICAL HISTORY Procedure Laterality Date EXTENSIVE FINGER SURGERY Right FOOT/TOES SURGERY PROC UNLISTED Left hammer toes and bunions HEPATECTOMY RESCJ TOTAL RIGHT LOBECTOMY 10/08/2022 lap right hepatectomy for T2Nx HCC LAPAROSCOPIC CHOLECYSTECTOMY 10/08/2022 LIVER BIOPSY PALATOP CL PALATE ATTACHMENT PHARYNGEAL FLAP age 5 PAST SURGICAL HISTORY OF MRSA cyst removed from face PAST SURGICAL HISTORY OF Cyst removed from mouth SHOULDER SURGERY HX Left tendon repair Allergies / intolerances ALLERGIES Allergen Reactions Oseltamivir Vomiting, Other: See Comments got really sick // Tamiflu Amoxicillin-[place]* Diarrhea Sulfamethoxazole-Tr* GI Upset Medications metoprolol succinate ER (TOPROL XL) 25 mg 24 hr tablet Take 0.5 tablets by mouth once daily. metoprolol 12.5mg XL with the onset of heart rate is greater than 110 [START ON 07/30/2024] pomalidomide (POMALYST) 2 mg capsule Take 1 capsule (2 mg) by mouth once daily. For 21 days, followed by 7 days off (beginning 07/30/2024) gabapentin (NEURONTIN) 100 mg capsule Take 1 capsule by mouth three times a day for 30 days. allopurinol (ZYLOPRIM) 100 mg tablet Take 1 tablet by mouth once daily. dexAMETHasone (DECADRON) 4 mg tablet Take 5 tablets by mouth one time a week. aspirin, enteric coated (ASPIRIN, ENTERIC COATED) 81 mg EC tablet Take 81 mg by mouth once daily. acetaminophen (TYLENOL EXTRA STRENGTH) 500 mg tablet Take 1,000 mg by mouth every 8 hours as needed. acyclovir (ZOVIRAX) 400 mg tablet Take 1 tablet by mouth two times a day. BASAGLISAIAH DIAZIKPEN U-100 INSULIN 100 unit/mL (3 mL) Inject 52 Units subcutaneously every morning. (Patient taking differently: Inject 52 Units subcutaneously daily at bedtime.) tamsulosin (FLOMAX) 0.4 mg Take 1 capsule by mouth daily at bedtime. diphenoxylate-atropine (LOMOTIL) 2.5-0.025 mg per tablet Take 1 tablet by mouth four times a day as needed for diarrhea for up to 30 days. Blood-Glucose Sensor (DEXCOM G7 SENSOR) liana as directed. MELATONIN ORAL Take 5 mg by mouth at bedtime as needed. multivit-minerals/folic acid (CENTRUM MULTIGUMMIES ORAL) Take 2 tablets by mouth once daily. L gasseri/B bifidum/B longum (PROBIOTIC COLON CARE ORAL) Take by mouth once daily as needed. insulin aspart U-100 (NOVOLOG FLEXPEN U-100 INSULIN) 100 unit/mL (3 mL) If Blood Glucose (mg/dL) is <110 Give 0 units 111-150 Give 0 units 151-200 Give 2 unit 201-250 Give 4 units 251-300 Give 6 units 301-350 Give 8 units 351-400 Give 10 units >400 Call physician. Insulin [place], Disposable, (BD ULTRA-FINE NAY PEN NEEDLE) 32 gauge x 5/32 Use as directed up to four times daily rOPINIRole (REQUIP) 2 mg tablet Take 1 tablet by mouth daily at bedtime. Cholecalciferol, Vitamin D3, (VITAMIN D) 25 mcg (1,000 unit) cap Take 2 capsules by mouth once daily. atorvastatin (LIPITOR) 10 mg tablet Take 10 mg by mouth once daily. cetirizine (ZYRTEC) 10 mg tablet Take 10 mg by mouth once daily. Social History Tobacco Use Smoking status: Former Current packs/day: 0.00 Average packs/day: 1 pack/day for 40.0 years (40.0 ttl pk-yrs) Types: Cigarettes Start date: 1977 Quit date: 2017 Years since quittin.2 Passive exposure: Past Smokeless tobacco: Never Tobacco comments: 03/30/2018 Vaping Use Vaping status: Never Used Substance Use Topics Alcohol use: Yes Comment: occassional Drug use: Yes Types: Marijuana Comment: THC edibles, 3x a week FAMILY HISTORY Problem Relation Age of Onset Cancer Mother brain 76 y/o Heart disease Mother Hypertension Mother Diabetes Father Heart disease Father Hypertension Father Heart Attack Father Diabetes Sister other (atrial fib) Sister COPD Sister No Known Problems Sister other (polio) Maternal Grandfather Diabetes Paternal Grandmother No Known Problems Daughter Physical examination There were no vitals taken for this visit. ECOG PS: 1- Restricted in physically strenuous activity. Carries out light duty. General appearance: Well appearing, alert, in no acute distress, well-hydrated, well nourished. Neck: Supple, no adenopathy; thyroid symmetric, normal size, no bruits Back: no pain to palpation Lungs: Lungs clear to auscultation. No wheezing, rhonchi, rales. Heart: RRR without murmur, gallop, or rubs. No ectopy Abdomen: Abdomen soft, non-tender. Bowel sounds normal. No masses, organomegaly Extremities: No deformities, edema, skin discoloration, clubbing or cyanosis. Good capillary refill. Laboratory tests WBC (k/uL) Date Value 07/23/2024 6.90 07/17/2024 1.75 07/16/2024 1.69 07/15/2024 1.46 07/14/2024 1.33 07/13/2024 1.65 07/13/2024 1.65 07/12/2024 1.98 07/09/2024 0.97 07/02/2024 2.57 07/02/2021 5.06 06/04/2021 3.93 05/07/2021 5.48 04/17/2021 4.95 03/26/2021 3.57 02/26/2021 3.61 01/28/2021 5.46 12/26/2020 4.99 12/05/2020 4.87 11/06/2020 7.08 Abs Neut (ANC) (k/uL) Date Value 07/02/2021 3.51 06/04/2021 1.85 05/07/2021 2.87 04/17/2021 2.77 03/26/2021 1.67 02/26/2021 1.49 01/28/2021 2.66 12/26/2020 3.07 12/05/2020 3.03 11/06/2020 5.02 Abs Neut (k/uL) Date Value 07/02/2024 1.33 06/11/2024 0.61 06/07/2024 0.78 06/05/2024 1.71 05/28/2024 1.53 05/24/2024 2.42 05/17/2024 1.32 05/03/2024 0.44 04/30/2024 1.34 03/26/2024 0.68 Abs Neut (Segs + Bands) (k/uL) Date Value 07/23/2024 3.12 07/17/2024 0.47 07/16/2024 0.27 07/15/2024 0.29 07/14/2024 0.29 07/13/2024 0.61 07/12/2024 0.69 07/09/2024 0.22 06/26/2024 1.82 06/18/2024 0.35 Hemoglobin (g/dL) Date Value 07/23/2024 9.5 07/17/2024 8.9 07/16/2024 8.3 07/15/2024 7.7 07/14/2024 7.7 07/13/2024 8.0 07/13/2024 8.0 07/12/2024 9.5 07/09/2024 7.8 07/02/2024 8.0 07/02/2021 14.0 06/04/2021 13.4 05/07/2021 14.3 04/17/2021 13.2 03/26/2021 13.6 02/26/2021 12.8 01/28/2021 13.0 12/26/2020 12.7 12/05/2020 12.3 11/06/2020 10.9 Platelet Count (k/uL) Date Value 07/23/2024 75 07/17/2024 66 07/16/2024 64 07/15/2024 51 07/14/2024 47 07/13/2024 52 07/13/2024 52 07/12/2024 82 07/09/2024 59 07/02/2024 42 07/02/2021 57 06/04/2021 100 05/07/2021 88 04/17/2021 95 03/26/2021 96 02/26/2021 96 01/28/2021 123 12/26/2020 130 12/05/2020 118 11/06/2020 131 Glucose (mg/dL) Date Value 07/23/2024 357 07/17/2024 263 07/16/2024 179 07/15/2024 174 07/14/2024 164 07/13/2024 182 07/12/2024 353 07/09/2024 301 07/02/2024 208 06/26/2024 323 07/02/2021 387 06/04/2021 354 05/07/2021 222 04/17/2021 248 03/26/2021 193 02/26/2021 218 01/28/2021 115 12/26/2020 191 12/05/2020 118 11/06/2020 137 Creatinine (mg/dL) Date Value 07/23/2024 1.14 07/17/2024 1.10 07/16/2024 1.13 07/15/2024 1.03 07/14/2024 1.13 07/13/2024 1.21 07/12/2024 1.25 07/09/2024 1.00 07/02/2024 1.02 06/26/2024 1.17 07/02/2021 1.13 06/04/2021 1.02 05/07/2021 1.20 04/17/2021 1.15 03/26/2021 1.09 02/26/2021 1.04 01/28/2021 1.04 12/26/2020 1.08 12/05/2020 0.89 11/06/2020 1.21 Calcium (mg/dL) Date Value 07/02/2021 10.2 06/04/2021 9.4 05/07/2021 9.9 04/17/2021 9.8 03/26/2021 9.8 02/26/2021 9.9 01/28/2021 9.6 12/26/2020 9.7 12/05/2020 9.6 11/06/2020 9.6 Calcium, Total (mg/dL) Date Value 07/23/2024 8.9 07/17/2024 9.0 07/16/2024 9.0 07/15/2024 8.2 07/14/2024 7.8 07/13/2024 7.8 07/12/2024 8.8 07/09/2024 8.9 07/02/2024 9.3 06/26/2024 8.9 M-Protein Concentration Date Value 06/15/2024 1.35 g/dL 05/17/2024 1.42 g/dL 03/12/2024 1.12 g/dL 02/03/2024 0.89 g/dL 12/09/2023 0.76 g/dL 10/14/2023 0.70 g/dL 09/15/2023 0.75 g/dL 08/18/2023 0.74 g/dL 07/13/2023 0.64 g/dL 06/15/2023 0.63 g/dL 05/18/2023 0.54 g/dL 04/20/2023 0.55 g/dL 03/23/2023 0.49 g/dL 02/16/2023 0.45 g/dL 01/19/2023 0.53 g/dL 12/22/2022 0.50 g/dL 11/17/2022 0.48 g/dL 09/24/2022 0.39 g/dL 09/01/2022 0.39 g/dL 08/04/2022 0.41 g/dL 07/07/2022 0.35 g/dL 06/09/2022 0.34 g/dL 05/12/2022 0.34 g/dL 04/14/2022 0.33 g/dL 02/17/2022 0.29 g/dL 01/18/2022 0.26 g/dL 12/18/2021 0.33 g/dL 11/20/2021 0.29 g/dL 09/25/2021 0.31 g/dL 08/28/2021 0.35 g/dL 07/30/2021 0.33 g/dL 07/02/2021 0.36 gm/dL 06/04/2021 0.31 gm/dL 04/17/2021 0.35 gm/dL 02/26/2021 0.37 gm/dL 12/26/2020 0.62 gm/dL 12/05/2020 0.53 gm/dL 11/06/2020 0.54 gm/dL 08/19/2020 0.61 gm/dL 05/19/2020 0.83 gm/dL 03/17/2020 1.49 gm/dL 02/18/2020 3.31 gm/dL 11/28/2019 3.33 gm/dL 08/29/2019 3.35 gm/dL 06/06/2019 3.23 gm/dL 11/29/2018 2.95 gm/dL M Дмитрий Quant, 24 Hr Urine Date Value 04/06/2022 0.03 g/24hr 12/17/2021 0.03 g/24hr 12/02/2020 0.01 gm/24 Hr 11/11/2020 0.01 gm/24 Hr 11/10/2020 Duplicate request gm/24 Hr 08/24/2020 0.02 gm/24 Hr 07/09/2020 0.05 gm/24 Hr [place] Free, Serum (mg/L) Date Value 06/15/2024 21.0 05/17/2024 24.1 03/12/2024 27.6 02/03/2024 30.3 12/09/2023 40.2 10/14/2023 37.8 09/15/2023 41.0 08/18/2023 44.2 07/13/2023 42.7 06/15/2023 40.4 05/18/2023 30.4 04/20/2023 31.8 03/23/2023 23.1 02/16/2023 34.6 01/19/2023 32.7 12/22/2022 33.4 11/17/2022 19.9 09/24/2022 22.9 09/01/2022 25.1 08/04/2022 26.5 07/07/2022 22.4 06/09/2022 33.0 05/12/2022 47.5 04/14/2022 28.7 03/17/2022 28.2 02/17/2022 20.7 01/18/2022 19.6 12/18/2021 20.6 11/20/2021 29.4 09/25/2021 26.2 08/28/2021 24.1 07/30/2021 17.3 07/02/2021 22.3 06/04/2021 22.7 04/17/2021 12.4 02/26/2021 20.8 12/26/2020 10.6 12/05/2020 9.4 12/05/2020 10.4 11/06/2020 11.6 08/19/2020 15.3 05/19/2020 16.9 03/17/2020 21.4 02/18/2020 14.4 11/28/2019 14.6 08/29/2019 16.2 06/06/2019 14.0 11/29/2018 15.7 [place] Free, Serum (mg/L) Date Value 06/15/2024 74.4 05/17/2024 73.2 03/12/2024 38.5 02/03/2024 29.1 12/09/2023 43.5 10/14/2023 41.1 09/15/2023 39.1 08/18/2023 39.8 07/13/2023 35.5 06/15/2023 32.1 05/18/2023 22.6 04/20/2023 23.3 03/23/2023 15.0 02/16/2023 22.9 01/19/2023 24.7 12/22/2022 31.1 11/17/2022 18.9 09/24/2022 17.7 09/01/2022 15.7 08/04/2022 15.2 07/07/2022 13.7 06/09/2022 21.4 05/12/2022 21.4 04/14/2022 17.1 03/17/2022 16.1 02/17/2022 13.1 01/18/2022 12.2 12/18/2021 11.6 11/20/2021 17.3 09/25/2021 20.2 08/28/2021 18.3 07/30/2021 13.5 07/02/2021 18.8 06/04/2021 11.1 04/17/2021 10.7 02/26/2021 17.9 12/26/2020 16.8 12/05/2020 18.1 12/05/2020 18.8 11/06/2020 19.5 08/19/2020 17.0 05/19/2020 57.4 03/17/2020 166.1 02/18/2020 218.1 11/28/2019 191.4 08/29/2019 243.0 06/06/2019 187.3 11/29/2018 136.8 IgG (mg/dL) Date Value 06/15/2024 2,078 05/17/2024 2,007 03/12/2024 1,697 02/03/2024 1,579 12/09/2023 1,560 10/14/2023 1,404 09/15/2023 1,359 08/18/2023 1,343 07/13/2023 1,306 06/15/2023 1,454 05/18/2023 1,102 04/20/2023 1,188 03/23/2023 1,012 02/16/2023 989 01/19/2023 1,046 12/22/2022 1,076 11/17/2022 929 09/24/2022 922 09/01/2022 913 08/04/2022 861 07/07/2022 892 06/09/2022 784 05/12/2022 844 04/14/2022 896 03/17/2022 811 02/17/2022 905 01/18/2022 868 12/18/2021 889 11/20/2021 782 09/25/2021 772 08/28/2021 804 07/30/2021 714 03/17/2020 2,078 MPA IgG, Serum (mg/dL) Date Value 07/02/2021 760 06/04/2021 719 04/17/2021 815 02/26/2021 841 12/26/2020 1,081 12/05/2020 1,032 11/06/2020 1,003 08/19/2020 938 05/19/2020 1,257 02/18/2020 4,871 11/28/2019 5,160 08/29/2019 5,120 06/06/2019 4,300 IgA (mg/dL) Date Value 06/15/2024 91 05/17/2024 100 03/12/2024 125 02/03/2024 142 12/09/2023 174 10/14/2023 161 09/15/2023 169 08/18/2023 168 07/13/2023 165 06/15/2023 200 05/18/2023 143 04/20/2023 120 03/23/2023 96 02/16/2023 145 01/19/2023 165 12/22/2022 135 11/17/2022 101 09/24/2022 114 09/01/2022 114 08/04/2022 108 07/07/2022 128 06/09/2022 129 05/12/2022 147 04/14/2022 131 03/17/2022 109 02/17/2022 118 01/18/2022 111 12/18/2021 123 11/20/2021 120 09/25/2021 92 08/28/2021 87 07/30/2021 76 03/17/2020 16 MPA IgA, Serum (mg/dL) Date Value 07/02/2021 67 06/04/2021 63 04/17/2021 55 02/26/2021 57 12/26/2020 47 12/05/2020 54 11/06/2020 62 08/19/2020 55 05/19/2020 32 02/18/2020 <5 11/28/2019 13 08/29/2019 15 06/06/2019 14 IgM (mg/dL) Date Value 06/15/2024 42 05/17/2024 59 03/12/2024 22 02/03/2024 31 12/09/2023 26 10/14/2023 27 09/15/2023 28 08/18/2023 23 07/13/2023 20 06/15/2023 25 05/18/2023 18 04/20/2023 18 03/23/2023 15 02/16/2023 13 01/19/2023 17 12/22/2022 23 11/17/2022 22 09/24/2022 22 09/01/2022 23 08/04/2022 22 07/07/2022 22 06/09/2022 24 05/12/2022 23 04/14/2022 27 03/17/2022 27 02/17/2022 20 01/18/2022 17 12/18/2021 19 11/20/2021 17 09/25/2021 14 08/28/2021 16 07/30/2021 12 03/17/2020 11 MPA IgM, Serum (mg/dL) Date Value 07/02/2021 12 06/04/2021 12 04/17/2021 11 02/26/2021 17 12/26/2020 25 12/05/2020 37 11/06/2020 18 08/19/2020 26 05/19/2020 13 02/18/2020 <5 11/28/2019 13 08/29/2019 9 06/06/2019 12 Interpretation (MPA) (no units) Date Value 06/15/2024 Atypical restricted bands are present in the IgG and lambda regions. Consistent with IgG lambda monoclonal gammopathy. 05/17/2024 Atypical restricted bands are present in the IgG and lambda regions. Consistent with IgG lambda monoclonal gammopathy. 03/12/2024 Atypical restricted bands are present in the IgG and lambda regions. Consistent with IgG lambda monoclonal gammopathy. 02/03/2024 Atypical restricted bands are present in the IgG and lambda regions. Consistent with IgG lambda monoclonal gammopathy. 12/09/2023 Atypical restricted bands are present in the IgG and lambda regions. Consistent with IgG lambda monoclonal gammopathy. 07/02/2021 SEE COMMENT 06/04/2021 SEE COMMENT 04/17/2021 SEE COMMENT 02/26/2021 SEE COMMENT 12/26/2020 SEE COMMENT Impression and Plan Cancer Staging (Hyperlink to Activity) No matching staging information was found for the patient. This is a 73-year-old male with a past medical history that includes standard cytogenetic risk IgG lambda multiple myeloma who is currently experiencing biochemical progression on venetoclax therapy. Given his excellent toleration of lenalidomide and prior lines of therapy and the fact that he is anti-CD38 na ve, I would recommend initiating daratumumab, pomalidomide, dexamethasone on the basis of the [place] trial (Durgaopoulos et al., Lancet 3).. Given the slow biochemical progression and concurrent neutropenia, the patient was initiated on daratumumab, pomalidomide, dexamethasone pomalidomide at 3 mg. Given his recent neutropenic episode, I would reinitiate therapy with pomalidomide 2 mg and even consider going to a 14-day course of pomalidomide should he remain neutropenic. He is responding well to Neupogen in the interim. There are o other treatment options including carfilzomib based therapy and clinical trials involving bispecific antibodies, though his prior hepatic malignancy may limit our options in this regard. Additionally, the patient would be a reasonable candidate for cardiac T-cell therapy CAR T-cell therapy should he maintain his performance status through this next line of treatment. Plan Summary: ASSESSMENT/PLAN: 1. Multiple myeloma not having achieved remission (HCC) - ICD9: 203.00, ICD10: C90.00 (primary diagnosis) -Resume DPd at pom 2 mg -Repeat paraprotien labs as soon as feasible -Patient should to resume thromboprophylaxis and VZV prophylaxis when initiating daratumumab, pomalidomide, dexamethasone -Systemic AC at discretion of his licensed pharmacist -Low threshold for repeat skeletal imaging in the context of any new bone pain -Patient will be reasonable candidate for bispecific antibody, carfilzomib based treatment, possible clinical trials, and CAR T-cell therapy in subsequent lines of treatment 2. Chemotherapy-induced neutropenia (HCC) - ICD9: 288.03, E933.1, ICD10: D70.1, T45.1X5A -Recent neutropenia improved s/p neuopogen -If cytopenias persist with reduced dose of pomalidomide, low threshold to repeat bone marrow biopsy 3. Hepatocellular carcinoma (HCC) - ICD9: 155.0, ICD10: C22.0 -Continue post resection and surveillance imaging 4. Type 2 diabetes mellitus without complication, with long-term current use of insulin (HCC) - ICD9: 250.00, V58.67, ICD10: E11.9, Z79.4 -Continue long-term basal insulin; rest of management per primary team 5. Atrial fibrillation - New onset in the context of febrile neutropenia - Continue metoprolol; agree with holter monitor - Hold systemic AC for now. RTC in 6 weeks Osvaldo Moreira MD CC: Dr. Vimal Crandall Medical Decision Making: Problems: High: Illness/injury w/ threat to life/body function Data: Unique test result(s) reviewed: 3+ Unique test(s) ordered: 3+ Risk: High: High risk from testing/treatment Medical Decision Making Level: 5 - High documented in this encounter [facility] 07-26-2024 Instructions Blake Ingram APRN.HIM MANAGER - 07/26/2024 3:21 PM EDT Please keep appointment with Dr. Bazan for December 26, 2024 Monitor heart rhythm kardia mobile documented in this encounter [facility] 07-26-2024 History of Present illness Narrative Images from the original note were not included. [facility] Department of Cardiovascular Medicine SECTION OF CLINICAL CARDIOLOGY OUTPATIENT VISIT DATE July 26, 2024 OUTPATIENT VISIT TYPE ESTABLISHED PRIMARY CARE PHYSICIAN: Letha Best MD ([facility]) [address] [place] [address] CHIEF COMPLAINT: follow up paroxysmal atrial fibrillation in setting of neutropenic fever HISTORY OF PRESENT ILLNESS: Mr. Bauer is a 73 year old male who presents today for a cardiovascular medicine evaluated by Dr. Bazan (while admitted to [facility]), paroxysmal atrial fibrillation (1st dx 07-12-24, treated with metoprolol, converted to NSR, [id number]: 1%), preserved LV systolic heart function, Other PMH of hyperlipidemia, hepatocellular carcinoma, hypertension, multiple myeloma, RLS, diabetes type II, depression, general anxiety disorder. Accompany by today He states SOB but not new symptom, lightheadedness with position changes only, not a new symptom, resolve on its own, they were unsure how to take the metoprolol 12.5mg XL prescribed He denies chest pain, orthopnea, cough, edema, palpitations, PND, lightheadedness or syncope. Discharge summary: 07-12-24 to 07-16-24 Jon Bauer was admitted for fever. Jon Bauer is a 73 year old male with history of multiple myeloma currently on chemotherapy with pomalidomide, history of autologous bone marrow transplant in 2020, type 2 diabetes mellitus, remote history of hepatocellular cancer, and recent hospitalization in April for diverticulitis and febrile neutropenia who now presents to the emergency room with complaints of weakness, shortness of breath, and fever. Workup remarkable for neutropenic fever, pancultured and received Zosyn. CTA/P remarkable for suspected developing SBO. GEn surgery consulted and recommended advancing diet due to no evidence of bowel obstruction. Well tolerated by patient. For neutropenic fever pt started on iv antibiotics > augmentin and cipro at discharge to complete a 7 day course of antibiotics. Chemotherapy on hold while on antibiotics. While in the hospital patient noted to have paroxysmal A-fib. Was given metoprolol. Was in normal sinus rhythm by discharge. Cardiology consulted and agreed with continuing metoprolol. Hold off on anticoagulation due to high risk of bleeding. Will need to follow-up with cardiology as outpatient to determine anticoagulation. Okay to continue aspirin with both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 Take 10 mg by mouth once daily. LABORATORY VALUES: WBC (k/uL) Date Value 07/17/2024 1.75 (L) RBC (m/uL) Date Value 07/17/2024 2.62 (L) Hemoglobin (g/dL) Date Value 07/17/2024 8.9 (L) Hematocrit (%) Date Value 07/17/2024 27.3 (L) MCV (fL) Date Value 07/17/2024 104.2 (H) MCH (pg) Date Value 07/17/2024 34.0 MCHC (g/dL) Date Value 07/17/2024 32.6 RDW-CV (%) Date Value 07/17/2024 18.0 (H) Platelet Count (k/uL) Date Value 07/17/2024 66 (L) MPV (fL) Date Value 07/17/2024 8.7 (L) Glucose (mg/dL) Date Value 07/17/2024 263 (H) BUN (mg/dL) Date Value 07/17/2024 20 Creatinine (mg/dL) Date Value 07/17/2024 1.10 Sodium (mmol/L) Date Value 07/17/2024 134 (L) Potassium (mmol/L) Date Value 07/17/2024 4.0 Chloride (mmol/L) Date Value 07/17/2024 101 CO2 (mmol/L) Date Value 07/17/2024 25 Protein, Total (g/dL) Date Value 07/17/2024 6.4 Albumin (g/dL) Date Value 07/17/2024 3.7 (L) Calcium, Total (mg/dL) Date Value 07/17/2024 9.0 Alkaline Phosphatase (U/L) Date Value 07/17/2024 92 Bilirubin, Total (mg/dL) Date Value 07/17/2024 0.6 AST (U/L) Date Value 07/17/2024 54 (H) ALT (U/L) Date Value 07/17/2024 50 Cholesterol, Total (mg/dL) Date Value 03/19/2024 92 Triglyceride (mg/dL) Date Value 03/19/2024 225 (H) M-Protein Concentration Date Value 06/15/2024 1.35 g/dL 05/17/2024 1.42 g/dL 03/12/2024 1.12 g/dL 02/03/2024 0.89 g/dL 12/09/2023 0.76 g/dL 07/02/2021 0.36 gm/dL 06/04/2021 0.31 gm/dL 04/17/2021 0.35 gm/dL 02/26/2021 0.37 gm/dL 12/26/2020 0.62 gm/dL DIAGNOSIS: (C90.00) Multiple myeloma not having achieved remission (HCC) (primary encounter diagnosis) Plan: DISCONTINUED: pomalidomide (POMALYST) 2 mg capsule (D70.3) Neutropenia associated with infection (HCC) Plan: DISCONTINUED: pomalidomide (POMALYST) 2 mg capsule (Z94.81) 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HCC) Plan: DISCONTINUED: pomalidomide (POMALYST) 2 mg capsule (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), type 2 with complications (HCC) Plan: DISCONTINUED: pomalidomide (POMALYST) 2 mg capsule (C22.0) Hepatocellular carcinoma (HCC) Plan: DISCONTINUED: pomalidomide (POMALYST) 2 mg capsule (D69.6) Thrombocytopenia (HCC) Plan: DISCONTINUED: pomalidomide (POMALYST) 2 mg capsule PAST MEDICAL HISTORY Diagnosis Date Abdominal aortic aneurysm (HCC) Allergic rhinitis Anal cancer (HCC) Biceps rupture, proximal 04/09/2014 Bicipital tenosynovitis 11/01/2013 Chronic pain COVID-19 06/11/2020 positive test 06/13/20 Depression 09/18/2020 Continue home dose of lexapro Elevated blood protein elevated MGUS Generalized anxiety disorder Glaucoma Hepatocellular carcinoma (HCC) Hypercholesteremia 09/17/2020 Hold Lipitor inpatient Hyperlipemia Hypertension Leukocytosis MRSA infection Multiple myeloma (HCC) 09/17/2020 6 Cycles RVD (February 2020 through August 2020) in a [place] Multiple myeloma not having achieved remission (HCC) 02/04/2020 Neuropathy 08/20/2020 Continue home Gabapentin Obesity Restless leg syndrome 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 Protocol(s): 3422 1C Preparative regimen: Melphalan Mobilization regimen: plerixafor & neupogen Stem cell source: apheresis CD34 cell dose (x10e6/kg): 4.05 Date of transplant: 09/19/20 Type 2 diabetes (HCC) 08/20/2020 Takes metformin, Lantus, victoza & Farxiga Sliding Scale inpatient & Lantus Plan: -Endo following, recs in dc instructions for home Type II or unspecified type diabetes mellitus without mention of complication, uncontrolled PAST SURGICAL HISTORY Procedure Laterality Date EXTENSIVE FINGER SURGERY Right FOOT/TOES SURGERY PROC UNLISTED Left hammer toes and bunions HEPATECTOMY RESCJ TOTAL RIGHT LOBECTOMY 10/08/2022 lap right hepatectomy for T2Nx [facility] LAPAROSCOPIC CHOLECYSTECTOMY 10/08/2022 LIVER BIOPSY PALATOP CL PALATE ATTACHMENT PHARYNGEAL FLAP age 5 PAST SURGICAL HISTORY OF MRSA cyst removed from face PAST SURGICAL HISTORY OF Cyst removed from mouth SHOULDER SURGERY HX Left tendon repair Social History Tobacco Use Smoking status: Former Current packs/day: 0.00 Average packs/day: 1 pack/day for 40.0 years (40.0 ttl pk-yrs) Types: Cigarettes Start date: 1977 Quit date: 2017 Years since quittin.2 Passive exposure: Past Smokeless tobacco: Never Tobacco comments: 03/30/2018 Vaping Use Vaping status: Never Used Substance Use Topics Alcohol use: Yes Comment: occassional Drug use: Yes Types: Marijuana Comment: THC edibles, 3x a week FAMILY HISTORY Problem Relation Age of Onset Cancer Mother brain 76 y/o Heart disease Mother Hypertension Mother Diabetes Father Heart disease Father Hypertension Father Heart Attack Father Diabetes Sister other (atrial fib) Sister COPD Sister No Known Problems Sister other (polio) Maternal Grandfather Diabetes Paternal Grandmother No Known Problems Daughter I spent a total of 40 minutes on the date of service which included preparing to see the patient, [id number] patient care, completing clinical documentation, obtaining and/or reviewing separately obtained history, performing a medically appropriate examination, counseling and educating the patient/family/caregiver, ordering medications, tests, or procedures, independently interpreting results (not separately reported), communicating results to the patient/family/caregiver, and care coordination (not separately reported). Vimal Crandall MD, CPE [facility] Provided at: [place], [place] Scribe Attestation: This note was scribed by Esther Portillo on July 17, 2024 under the direction and supervision of Dr. Vimal Crandall. I attest that all of the information documented is correct to the best of my knowledge. Provider Attestation: I, Vimal Crandall MD, attest that all information documented by the above scribe is correct, and was supervised by me and under my direction. CC: Dr. Letha Michael Dr. [facility] Dr. Denis Moreira documented in this encounter [facility] 07-16-2024 Note [facility] 07-16-2024 Note [facility] 07-16-2024 Note [facility] 07-15-2024 Note [facility] 07-15-2024 Note [facility] 07-14-2024 Note [facility] 07-13-2024 Telephone encounter Note Pt notified of appointment change. Requests a later time that day due to having to run his granddaughter to school. Appointment moved to 1 PM - labs and 120 PM RV. Arcelia Thomas RN [facility] Work Phone: 07-13-2024 Miscellaneous Notes Pt notified of appointment change. Requests a later time that day due to having to run his granddaughter to school. Appointment moved to 1 PM - labs and 120 PM RV. Arcelia Thomas RN Call placed to pt. No answer. Message left requesting call back. Arcelia Thomas RN Patient has been scheduled for 07/17 - 9 am lab, EMILIA at 9:20. Thanks! Juanita Valdez Clerical: Can we schedule pt to see Emilia for labs and RV on Tuesday, 07/17? This will take the place of his lab appointment on Tuesday, 07/16. I will call pt when scheduled. Thanks! Arcelia Thomas RN ----- Message from Vimal Crandall MD sent at 07/13/2024 12:58 PM EST ----- Thanks so much Gela - I think he can resume his pomalyst once he's discharged - and we can get him in 1st of the week for labs - really appreciate you seeing him. I'm also ok with having him pause his pomalyst until his counts are checked on Tuesday or Tuesday. ----- Message ----- From: Gela Hodges MD Sent: 07/13/2024 9:13 AM EST To: Vimal Crandall MD Emilia Webb was admitted for new A fib, rate controlled with metoprolol. Had fever of 100.8 at home. He is neutropenic here, thus far afebrile. I started him on eliquis and his pomalyst is currently on hold while he is here, hopefully he can go home today. Do you want him to restart the pomalyst. documented in this encounter [facility] 07-13-2024 Note [facility] 07-13-2024 Telephone encounter Note Call placed to pt. No answer. Message left requesting call back. Arcelia Thomas RN [facility] 07-13-2024 Telephone encounter Note Patient has been scheduled for 07/17 - 9 am lab, EMILIA at 9:20. Thanks! Juanita Valdez [facility] 07-13-2024 Telephone encounter Note Clerical: Can we schedule pt to see Emilia for labs and RV on Tuesday, 07/17? This will take the place of his lab appointment on Tuesday, 07/16. I will call pt when scheduled. Thanks! Arcelia Thomas RN [facility] 07-13-2024 Telephone encounter Note ----- Message from Vimal Crandall MD sent at 07/13/2024 12:58 PM EST ----- Thanks so much Gela - I think he can resume his pomalyst once he's discharged - and we can get him in 1st of the week for labs - really appreciate you seeing him. I'm also ok with having him pause his pomalyst until his counts are checked on Tuesday or Tuesday. ----- Message ----- From: Gela Hodges MD Sent: 07/13/2024 9:13 AM EST To: Vimal Crandall MD Emilia Webb was admitted for new A fib, rate controlled with metoprolol. Had fever of 100.8 at home. He is neutropenic here, thus far afebrile. I started him on eliquis and his pomalyst is currently on hold while he is here, hopefully he can go home today. Do you want him to restart the pomalyst. [facility] 07-12-2024 Note SARS-COV-2 (AGENT OF COVID-19) RNA: Not detected INFLUENZA A RNA: Not detected INFLUENZA B RNA: Not detected RESPIRATORY SYNCYTIAL VIRUS (RSV) RNA: Not detected [facility] Comment on above: Performed By: #### [id number] ####[facility] LABORATORYCLIA [id number] [facility] [place], [place] [id number] [place] [address] [facility] 07-12-2024 Note [facility] 07-12-2024 Telephone encounter Note Pt calls w/ c/o increased weakness, fatigue. Feels dizzy and lightheaded. Denies falls. Temp today of 99.6. No chills. SOB w/ activity. Tuesday's CBC showed WBC 0.97 and Hgb 7.8. Pt's symptoms and results reviewed w/ Dr Crandall. instructs for pt to go to [facility] for evaluation. Pt verbalizes understanding and agrees. Report phoned to ALEX Fields. Arcelia Thomas RN [facility] Work Phone: 07-12-2024 Miscellaneous Notes Pt calls w/ c/o increased weakness, fatigue. Feels dizzy and lightheaded. Denies falls. Temp today of 99.6. No chills. SOB w/ activity. Tuesday's CBC showed WBC 0.97 and Hgb 7.8. Pt's symptoms and results reviewed w/ Dr Crandall. instructs for pt to go to [facility] for evaluation. Pt verbalizes understanding and agrees. Report phoned to ALEX Fields. Arcelia Thomas RN documented in this encounter [facility] 07-04-2024 Telephone encounter Note ORAL ANTI-CANCER AGENTS FOLLOW-UP PHONE CALL/VISIT Patient identified by name and date of . YES Patient is on cycle 1, week 1, day 3 of Pomalyst for Multiple Myeloma. SYMPTOM ASSESSMENT Headache: No Visual Changes: No Dizziness: Yes - when standing too quick. Has to take his time when going from sitting to standing. Do you have any periods of confusion? No Mood changes: No Mouth or throat pain: Yes - Reports thrush, but has nystatin solution he is using. Does not interfere w/ eating or drinking. Will call if his symptoms do not resolve. Appetite: increased appetite Taste changes: No Nausea: Yes - managed w/ Zofran. Vomiting: No Heartburn: No. Weight gain/loss: No Episodes of palpitations/chest discomfort/pressure/pain No Shortness of breath: Yes - When climbing steps. Resolves w/ rest. Cough: No Diarrhea: yes, 2 loose stools per day. Taking lomotil as needed. Constipation: no Bladder/Urinary Changes: Increased output Pain: No=0 (pain 0 on a scale of 0-10). Fever: No Chills: No Cold sensitivity: No Numbness/weakness: No Edema: No Skin changes: No Itching: No Yellowing of skin or eyes: No Musculoskeletal/joint changes/issues No Bleeding issues: No Activity Level (0-100%): No reported change in fatigue. Do you need to take naps? Did not report. Pt notes his blood sugars were elevated due to the steroid. Reports he spoke w/ his sign wirer today who ordered him to take an additional dose of insulin. Pt verbalizes correct dose and frequency of the Pomalyst and Dexamethasone. Does the patient need interventions or same day appointment: NO ADDITIONAL FOLLOW UP: The next outreach call is due on: Advised pt to call w/ any questions or concerns and was scheduled NA The following lab tests are due: CBC due on Tuesday, 07/09. Verified patient is aware of next appointment in the cancer center: Yes. Verified patient verbalized how to correctly refill the oral agent prescription. Yes Does the patient have any financial difficulties affording this medication? No Patient verbalizes understanding of when to seek Medical Attention? YES Patient verbalizes understanding of after-hours and weekend phone number? YES Patient verbalized importance of medication compliance in taking the oral agent as prescribed. Patient instructed to call if unable to comply. Arcelia Thomas RN [facility] Work Phone: 07-04-2024 Miscellaneous Notes ORAL ANTI-CANCER AGENTS FOLLOW-UP PHONE CALL/VISIT Patient identified by name and date of . YES Patient is on cycle 1, week 1, day 3 of Pomalyst for Multiple Myeloma. SYMPTOM ASSESSMENT Headache: No Visual Changes: No Dizziness: Yes - when standing too quick. Has to take his time when going from sitting to standing. Do you have any periods of confusion? No Mood changes: No Mouth or throat pain: Yes - Reports thrush, but has nystatin solution he is using. Does not interfere w/ eating or drinking. Will call if his symptoms do not resolve. Appetite: increased appetite Taste changes: No Nausea: Yes - managed w/ Zofran. Vomiting: No Heartburn: No. Weight gain/loss: No Episodes of palpitations/chest discomfort/pressure/pain No Shortness of breath: Yes - When climbing steps. Resolves w/ rest. Cough: No Diarrhea: yes, 2 loose stools per day. Taking lomotil as needed. Constipation: no Bladder/Urinary Changes: Increased output Pain: No=0 (pain 0 on a scale of 0-10). Fever: No Chills: No Cold sensitivity: No Numbness/weakness: No Edema: No Skin changes: No Itching: No Yellowing of skin or eyes: No Musculoskeletal/joint changes/issues No Bleeding issues: No Activity Level (0-100%): No reported change in fatigue. Do you need to take naps? Did not report. Pt notes his blood sugars were elevated due to the steroid. Reports he spoke w/ his sign wirer today who ordered him to take an additional dose of insulin. Pt verbalizes correct dose and frequency of the Pomalyst and Dexamethasone. Does the patient need interventions or same day appointment: NO ADDITIONAL FOLLOW UP: The next outreach call is due on: Advised pt to call w/ any questions or concerns and was scheduled NA The following lab tests are due: CBC due on Tuesday, 07/09. Verified patient is aware of next appointment in the cancer center: Yes. Verified patient verbalized how to correctly refill the oral agent prescription. Yes Does the patient have any financial difficulties affording this medication? No Patient verbalizes understanding of when to seek Medical Attention? YES Patient verbalizes understanding of after-hours and weekend phone number? YES Patient verbalized importance of medication compliance in taking the oral agent as prescribed. Patient instructed to call if unable to comply. Arcelia Thomas RN documented in this encounter [facility] 07-02-2024 History of Present illness Narrative Reviewed ANC 1.33 with pt and that we did not need Nivestym today. Pt plans to start Pomalyst today per plan. Reviewed follow up appointment. No further questions. Letha Solomon RN documented in this encounter [facility] 06-28-2024 Telephone encounter Note Pt notified and verbalizes understanding. Arcelia Thomas RN [facility] Work Phone: 06-28-2024 Miscellaneous Notes Pt notified and verbalizes understanding. Arcelia Thomas RN Cheryl, yes ok to have dental cleaning. Thanks Pt to start Pomalyst/Dexamethasone on Tuesday, 07/02. Reports he is scheduled to have his teeth cleaned on 07/18. Is he ok to proceed? Arcelia Thomas RN documented in this encounter [facility] 06-28-2024 Telephone encounter Note Cheryl, yes ok to have dental cleaning. Thanks [facility] Work Phone: 06-28-2024 Telephone encounter Note Pt to start Pomalyst/Dexamethasone on Tuesday, 07/02. Reports he is scheduled to have his teeth cleaned on 07/18. Is he ok to proceed? Arcelia Thomas RN [facility] 06-28-2024 Telephone encounter Note Patient phones requesting refills as follows: Requested Prescriptions Pending Prescriptions Disp Refills allopurinol (ZYLOPRIM) 100 mg tablet 90 tablet 0 Sig: Take 1 tablet by mouth once daily. Please review and advise. Arcelia Thomas RN [facility] Work Phone: 06-28-2024 Miscellaneous Notes Patient phones requesting refills as follows: Requested Prescriptions Pending Prescriptions Disp Refills allopurinol (ZYLOPRIM) 100 mg tablet 90 tablet 0 Sig: Take 1 tablet by mouth once daily. Please review and advise. Arcelia Thomas RN documented in this encounter [facility] 06-22-2024 Telephone encounter Note Pt reports he spoke w/ [facility] today. Pt's Pomalyst is due to arrive on 06/29/24. Will start on 07/02/24. Arcelia Thomas RN [facility] Work Phone: 06-22-2024 Miscellaneous Notes Pt reports he spoke / [facility] today. Pt's Pomalyst is due to arrive on 06/29/24. Will start on 07/02/24. Arcelia Thomas RN documented in this encounter [facility] 06-22-2024 History of Present illness Narrative Patient Declined Social Work Information Patient declined the need for SW services during his chemo education. SW will remain available and will follow up as appropriate. EVANGELIST Alvares Goals of Care Advance Directives are on file. documented in this encounter [facility] 06-22-2024 History of Present illness Narrative ORAL ANTI-CANCER AGENTS EDUCATION patient here today for oral medication education of Pomalidomide for Multiple Myeloma Anticipated/Scheduled start date: 07/02/24 READINESS TO LEARN Cognitive Ability: Alert and oriented Motivation to Learn: Interested Family Support: Unable to assess - Family not present Instruction Provided to: Patient Patient learns best by: Multiple Methods Factors affecting learning: None Physical limitation affecting learning: None MANNING ASSESSMENT: 1.) Verified that patient knows that the oral agents are for cancer and are taken by mouth. Yes 2.) Medication review completed during visit. Yes 3.) Patient is able to swallow pills. Yes 4.) Patient is able to read the drug label/information. Yes 5.) Patient is able to open the medication bottles and packages. Yes 6.) Has patient taken other pills for cancer? YES, please explain: Lenalidomide & Venetoclax 7.) Is patient experiencing any symptoms that would affect their ability to keep down pills, for example nausea or vomiting? No 8.) Verified that patient understands prescription delivery, benefit investigation and refill process. Yes DRUG-SPECIFIC EDUCATION: 1.) Verified patient knows the drug name. Yes 2.) Verified patient understands the dose and schedule of oral anti cancer agent. Yes 3.) Verified patient knows what to do if a medication dose is missed. Yes 4.) Verified patient understands where to store the drug. Yes 5.) Verified patient understands potential side effects and how to manage them. Yes 6.)Verified patient understands handling precautions of oral anti cancer agent. Yes 7.) Verified patient was given written instructions and understands when and whom to call with questions. Yes 8.) Verified patient understands where and how to return drug. Yes 9.) Verified patient received drug specific adult education handout and neutropenic wallet card Yes Pt Services reviewed. Pt denies need to meet with social media coordinator or local bulk driver at this time. Need for Acyclovir reviewed w/ pt. Pt verbalizes understanding. States that he has the script and will start. Dr Crandall recommends pt take Aspirin 81 mg daily for DVT prophylaxis. Pt notified and verbalizes understanding. EVALUATE: The patient demonstrated an understanding of all the above education using the teach-back method. Yes Instructed to call us with any questions, concerns, and/or unresolved symptoms. Will continue to follow up and provide reinforcement of teaching topics as needed. Arcelia Thomas RN ONCOLOGY PATIENT EDUCATION NOTE TOPIC: Immunotherapy, Medications: Daratumumab Hyaluronidase patient here today for education for treatment of Multiple Myeloma Anticipated/Scheduled start date: 07/30/24 READINESS TO LEARN: COGNITIVE ABILITY: Alert and oriented MOTIVATION TO LEARN: Interested FAMILY SUPPORT: Unable to assess - Family not present INSTRUCTION PROVIDED TO: Patient INSTRUCTION PROVIDED BY: Nurse Coordinator PATIENT LEARNS BEST BY: Multiple Methods FACTORS AFFECTING LEARNING: None PHYSICAL LIMITATIONS AFFECTING LEARNING: None LEARNING RESPONSE METHOD OF INSTRUCTION: Individual instruction Written instruction/Handouts Verbal instruction PATIENT/FAMILY RESPONSE: Verbalizes understanding of: INFECTION MANAGEMENT-Signs and symptoms of an infection and importance of contacting the physician MEDICATION PRESCRIBED-Accurate knowledge of prescribed medication prior to discharge MEDICATION ROUTE-Correct route for administration of the prescribed medication MEDICATION SIDE EFFECTS-Side effects associated with the medication that warrant a call to the physician POST-PROCEDURE INSTRUCTIONS-Correct actions to take to reduce post procedure complications SYMPTOM MANAGEMENT-Correct actions to take to manage symptoms associated with his/her disease/illness WORSENING CONDITION-Signs and symptoms of a worsening condition that warrant a call to the physician Information received as demonstrated by interest and questions FOLLOW UP PLAN: Patient instructed to call with any further issues Contact information given. SUPPLEMENTAL MATERIAL: Written material was provided at this visit with the following information: - Immunotherapy education was provided by a pharmacist YES - Side effect management information was provided/discussed including but not limited to: anemia, arthralgia, bowel habit changes, fatigue, headache, hypersensitivity reaction, infection, myalgia, neutropenia, shortness of breath, skin changes, taste changes, thrombocytopenia YES - Provided important phone numbers and contacts during and after hours. YES - Provided information on symptoms that require immediate assistance. YES - Provided Immunotherapy when to call handouts YES - Preventing infection. YES - Treatment schedule and confirmation of appointment times. YES - Available support groups. YES - The importance of contraception during the course of chemotherapy YES - Neutropenic fever protocol discussed with patient, which included the importance of reporting any fever of 100.4F (38.0C) or greater to the healthcare team as noted on the provided wallet card and/or magnet. YES - Patient services information. YES - Calendar for C1 and start of C2 provided and reviewed w/ pt. Pt verbalizes understanding. - Pt services calendar provided w/ education material. Time Spent: 45 minutes REFERRAL (RECOMMENDATION): N/A Arcelia Thomas, RN documented in this encounter [facility] 06-22-2024 Telephone encounter Note Per Dr Crandall, pt to take Dexamethasone 20 mg weekly. Script pended. Arcelia Thomas RN [facility] Work Phone: 06-22-[address] Crandall, pt to take Dexamethasone 20 mg weekly. Script pended. Arcelia Thomas RN documented in this encounter [facility] 06-22-2024 History of Present illness Narrative Images from the original note were not included. [facility] [place] Department of Pharmacy Oncology Pharmacy Medication Education Patient Name: Jon Bauer Primary Oncologist: Raz Diagnosis: MM Jon Bauer is a 73 year old patient here today for medication education for IV DARATUMUMAB & HYALURIONIDASE-FIHJ and PO pomalyst and dexamethasone Drug Interactions: Clinically significant interactions with chemotherapy, immunosuppression, or other standard of care treatment plan medications anticipated: No. There are no pertinent drug interactions identified. Patient was counseled accordingly. Allergies: Patient confirmed allergies documented in Epic are correct: Yes Was medication education provided?: Yes Medication Education: Administration and schedule: reviewed, calendar provided by RNCC Potential side effects discussed: yes PO chemo: Verified patient understands where to store the drug. Yes Verified that patient understands prescription delivery, benefit investigation and refill process. Yes - patient calling [facility] to set up shipment Was medication reconciliation performed?: Yes Changes made to medication list? Yes The following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 Biceps rupture, proximal 04/09/2014 Bicipital tenosynovitis 11/01/2013 Chronic pain COVID-19 06/11/2020 positive test 06/13/20 Depression 09/18/2020 Continue home dose of lexapro Elevated blood protein elevated MGUS Generalized anxiety disorder Glaucoma Hepatocellular carcinoma (HCC) Hypercholesteremia 09/17/2020 Hold Lipitor inpatient Hyperlipemia Hypertension Leukocytosis MRSA infection Multiple myeloma (HCC) 09/17/2020 6 Cycles RVD (February 2020 through August 2020) in a [place] Multiple myeloma not having achieved remission ([facility]) 02/04/2020 Neuropathy 08/20/2020 Continue home Gabapentin Obesity Restless leg syndrome 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 Protocol(s): 3422 1C Preparative regimen: Melphalan Mobilization regimen: plerixafor & neupogen Stem cell source: apheresis CD34 cell dose (x10e6/kg): 4.05 Date of transplant: 09/19/20 Type 2 diabetes ([facility]) 08/20/2020 Takes metformin, Lantus, victoza & Farxiga Sliding Scale inpatient & Lantus Plan: -Endo following, recs in dc instructions for home Type II or unspecified type diabetes mellitus without mention of complication, uncontrolled PAST SURGICAL HISTORY Procedure Laterality Date EXTENSIVE FINGER SURGERY Right FOOT/TOES SURGERY PROC UNLISTED Left hammer toes and bunions HEPATECTOMY RESCJ TOTAL RIGHT LOBECTOMY 10/08/2022 lap right hepatectomy for T2Nx [facility] LAPAROSCOPIC CHOLECYSTECTOMY 10/08/2022 LIVER BIOPSY PALATOP CL PALATE ATTACHMENT PHARYNGEAL FLAP age 5 PAST SURGICAL HISTORY OF MRSA cyst removed from face PAST SURGICAL HISTORY OF Cyst removed from mouth SHOULDER SURGERY HX Left tendon repair Social History Tobacco Use Smoking status: Former Current packs/day: 0.00 Average packs/day: 1 pack/day for 40.0 years (40.0 ttl pk-yrs) Types: Cigarettes Start date: 1977 Quit date: 2017 Years since quittin.1 Passive exposure: Past Smokeless tobacco: Never Tobacco comments: 03/30/2018 Vaping Use Vaping status: Never Used Substance Use Topics Alcohol use: Yes Comment: occassional Drug use: Yes Types: Marijuana Comment: THC edibles, 3x a week FAMILY HISTORY Problem Relation Age of Onset Cancer Mother brain 76 y/o Heart disease Mother Hypertension Mother Diabetes Father Heart disease Father Hypertension Father Heart Attack Father Diabetes Sister other (atrial fib) Sister COPD Sister No Known Problems Sister other (polio) Maternal Grandfather Diabetes Paternal Grandmother No Known Problems Daughter I spent a total of 30 minutes on the date of service which included preparing to see the patient, [id number] patient care, completing clinical documentation, obtaining and/or reviewing separately obtained history, performing a medically appropriate examination, counseling and educating the patient/family/caregiver, ordering medications, tests, or procedures, independently interpreting results (not separately reported), communicating results to the patient/family/caregiver, and care coordination (not separately reported). Vimal Crandall MD, CPE [facility] Provided at: [place], [place] Scribe Attestation: This note was scribed by Esther Portillo on June 18, 2024 under the direction and supervision of Dr. Vimal Crandall. I attest that all of the information documented is correct to the best of my knowledge. Provider Attestation: I, Vimal Crandall MD, attest that all information documented by the above scribe is correct, and was supervised by me and under my direction. CC: Dr. Letha [facility] Dr. Denis Moreira documented in this encounter [facility] 06-15-2024 History of Present illness Narrative Additional intake questions: Has the patient had fever, nausea, vomiting, diarrhea, constipation, fatigue for > 1 week? Yes, nausea and fatigue Does the patient have a decreased appetite? Yes, decrease Does patient want to see a [employer] Technician? No (yes to any of above refer patient to schedulers for dietitian appointment) ) Does patient have any new or increased numbness or tingling of extremities? No Is patient interested in fertility information? NA Does patient need any prescription refills? No Does patient have an advanced directive in place? Yes, copies are in [employer] Images from the original note were not included. [facility] (Elements copied from Vimal John's note dated 06/18/24, have been reviewed and updated where appropriate, and all reflect current assessment and medical decision making during today's encounter, June 15, 2024) Jon Bauer is a 73 year old male patient. CarePath: MM Second or Later Relapse Reason for visit: Consult, referred by Dr. Vimal John for relapsed multiple myeloma. My recommendations to the consult requesting physician are communicated via the shared electronic medical record or US mail. Baseline assessment on initial diagnosis date 2019 Cancer Staging (Hyperlink to Activity) No matching staging information was found for the patient. Symptomatic multiple myeloma IgG lambda Related Organ or Tissue Involvement (CRAB) or other Myeloma Defining Event (MDE): Bone disease: At least one lytic bone lesion on XR or CT if BMPC >=10%, at least 2 bone lesions on XR or CT if BMPC<10%, location of lytic lesion(s): Sternum Antecedent plasma cell dyscrasia: Monocolonal gammopathy of undetermined significance IgG lambda since 2018 Myeloma FISH panel: t[11;14], trisomy 9 and 15 Cytogenetics: 46,XY LDH: Unavailable at the time ISS stage: II (albumin < 3,5g/dL OR b2M 3,5-5,4mg/L) Monoclonal proteins at diagnosis: Serum M-spike: 3.31 gm/dL, Involved serum free light chains: 166.1 mg/L, and Uninvolved serum free light chains: 21.4 mg/L Total immunoglobulins at diagnosis: IgG 2078 mg/dL, IgA 16 mg/dL, IgM 11 mg/dL Bone marrow plasma cell infiltration: 5-10% Systemic treatment and disease course - Myeloma response according to: International uniform response criteria, Durie et al. Leukemia 20: 1467-73, 2006 and Durie et al. ERRATUM in Leukemia 21:1134, 2007. Update in Loreta SV et al. Blood 117: 1445-5446, 2011 CASE HISTORY: Reverse Chronological Order (Dr. Benitez's note) 06/01/2024-06/11/2024 - Resumed Venclexta 50mg daily - discontinued 04/17/2024-04/24/2024 - Admitted at [facility], transferred to [place] with neutropenic fever 04/02/2024 - ER visit with neutropenic fever, UTI found 03/26/2024 - Neutropenic again and Venclexta held, neupogen x 4 given 03/19/2024 - Venclexta 100 mg restarted after neutropenia resolved 03/12/2024 - Venclexta held due to neutropenia and ongoing staph infection of skin, given neupogen x 4 doses 02/13/2024 - Resumed Venclexta 100 mg daily, however could not increase dose due to GI upset while on antibiotic for Staph infection 01/04/2024 - Venclexta 400mg daily - on hold 01/19-02/12 for neutropenia and knee surgery 01/02/2024 - MRI Liver: Cirrhotic liver morphology. A spontaneous splenorenal shunt is present and mild splenomegaly up to 14.2 cm are noted, compatible with portal hypertension. The portal veins are patent. There is no abdominal ascites. Table postsurgical changes from right posterior hepatectomy. No suspicious appearing liver mass identified. A 7 mm T2 hyperintense focus at the dome of the right hepatic lobe is unchanged from September 2022 and favored to represent a hemangioma. Stable-appearing Bosniak type I and type II cysts in both kidneys. Colonic diverticulosis. 10/06/2023 - BMBx: A-C. Bone marrow, aspirate smears, core biopsy, and clot section: - Plasma cell neoplasm, lambda monotypic (5-9% of total marrow cellularity). - Cellular bone marrow (40%) with trilineage hematopoiesis. - Stainable iron present. Comment: The patient is a 73-year-old male with IgG lambda plasma cell neoplasm, originally diagnosed in 2019, for which she had was received therapy as well as hepatocellular carcinoma, status post resection, presenting for restaging in the setting of increasing M protein concentration. Overall, the findings are diagnostic of recurrent/persistent plasma cell neoplasm, lambda monotypic. There is no immunophenotypic evidence of metastatic hepatocellular carcinoma. Subclassification of plasma cell neoplasms requires correlation with clinical, laboratory, and radiographic findings, as well as the pending cytogenetic and molecular genetic results. D. Peripheral blood smear: - Absolute neutropenia. - Normocytic anemia. - Thrombocytopenia. 09/19/2023 - MRI Liver: No evidence of suspicious enhancing hepatic mass. Diffuse hepatic fatty infiltration. Mildly complex right renal cyst stable in size since 05/24/23 but demonstrates new thin septal enhancement (Bosniak IIF). Consider attention at interval follow-up. 05/24/2023 - MRI Liver: Postsurgical change as described. No LR-5/OPTN Class 5 lesions. 03/10/2023 - US Kidney Bladder: 1.7 cm RIGHT renal lesion is at least a partially complex cystic lesion but may have a solid peripheral component. Renal neoplasm is not excluded. 02/10/2023 - CT liver with IV contrast: Since 10/01/2022, interval partial right hepatectomy. No findings to suggest residual or recurrent disease. A 1.1 cm hypodensity within the right renal upper pole is indeterminate 11/24/2022-12/30/2023 - Rev maintenance 10/08/2022 - Resection of Liver mass right lobe [id number] HCC, 3 cm, G2, + LVI 06/28/2022 - Held Revlimid due to recurring infections 07/30/2021 - Resumed Rev at 5mg daily due to thrombocytopenia 07/02/2021 - M-spike 0.36 12/26/2020 - Rx for Maintenance Rev 10mg daily 12/16/2020 - Hospitalization for SBO with intractable nausea 09/19/2020 - HDCT Auto transplant (D0) 08/24/2020 - Pretransplant testing revealed a 24-hour urine with 0.02 gm M spike. Serum M protein was 0.61, serum kappa light chains 15.3, serum lambda light chain 17.0, serum kappa/lambda ratio 0.90 (normal 0.26-1.65) 08/19/2020 - Bone marrow examination: 40% cellular with less than 5% plasma cells and normal cytogenetics 02/18/2020-08/25/2020 - RVD 02/01/2020 - PET/CT: No FDG avid neoplastic process in the neck, chest, or A/P. EXTREMITIES/SKELETON: 1.2 cm mildly FDG-avid lytic lesion in the sternum with SUV max of 2.7, may represent a site of active myeloma. No FDG avid destructive osseous lesions elsewhere. Specifically, no hypermetabolic lesions in humeral heads or femurs. 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 06/08/2019 - Bone Survey: Lytic lesions involving bilateral humeral heads and distal right femur Local treatments (radiation, surgery, kyphoplasty) None Interim history Mr. Bauer presents today for second opinion regarding evaluation of his relapsed multiple myeloma. Given his t(11;14) translocation, his primary equity director had initiated venetoclax at first relapse following autologous stem cell transplantation. Unfortunately, the patient has suffered from recurrent neutropenia on this therapy were necessitating dose reductions down to 50 mg daily. He was required several Neupogen injections most recently on 06/04, 06/05, and 06/07/2024. He has experienced remittent diarrhea while on his therapy. He has also suffered from cutaneous staphylococcal infections while on venetoclax. In terms of his disease status, his involved serum free light chain continues to slowly rise from approximately 8 months ago, as has his ataxia monoclonal paraprotein. At the present visit, he endorses fatigue, but denies fevers, chills, night sweats, nausea, vomiting, and further diarrhea. Denies worsening peripheral neuropathy at the time of our visit. He denies focal bone pain at this time. Review of systems General: No fever , No chills, and No night sweats HEENT: No lumps, no difficulty chewing or swallowing, no enlarging tongue, no tooth aches. Musculoskeletal: No Pain Hematological: No bleeding or easy bruising. Lymphatic / Immune system: No lymph node enlargement or infection. Cardiovascular: No orthopnea, no dyspnea, no chest pain, no leg edema, no palpitations. Pulmonary: No dyspnea, no wheezing, no cough. PAST MEDICAL HISTORY Diagnosis Date Abdominal aortic aneurysm (HCC) Allergic rhinitis Biceps rupture, proximal 04/09/2014 Bicipital tenosynovitis 11/01/2013 Chronic pain COVID-19 06/11/2020 positive test 06/13/20 Depression 09/18/2020 Continue home dose of lexapro Elevated blood protein elevated MGUS Generalized anxiety disorder Glaucoma Hepatocellular carcinoma (HCC) Hypercholesteremia 09/17/2020 Hold Lipitor inpatient Hyperlipemia Hypertension Leukocytosis MRSA infection Multiple myeloma ([facility]) 09/17/2020 6 Cycles RVD (February 2020 through August 2020) in a [place] Multiple myeloma not having achieved remission ([facility]) 02/04/2020 Neuropathy 08/20/2020 Continue home Gabapentin Obesity Restless leg syndrome 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 Protocol(s): 3422 1C Preparative regimen: Melphalan Mobilization regimen: plerixafor & neupogen Stem cell source: apheresis CD34 cell dose (x10e6/kg): 4.05 Date of transplant: 09/19/20 Type 2 diabetes (HCC) 08/20/2020 Takes metformin, Lantus, victoza & Farxiga Sliding Scale inpatient & Lantus Plan: -Endo following, recs in dc instructions for home Type II or unspecified type diabetes mellitus without mention of complication, uncontrolled PAST SURGICAL HISTORY Procedure Laterality Date EXTENSIVE FINGER SURGERY Right FOOT/TOES SURGERY PROC UNLISTED Left hammer toes and bunions HEPATECTOMY RESCJ TOTAL RIGHT LOBECTOMY 10/08/2022 lap right hepatectomy for T2Nx HCC LAPAROSCOPIC CHOLECYSTECTOMY 10/08/2022 LIVER BIOPSY PALATOP CL PALATE ATTACHMENT PHARYNGEAL FLAP age 5 PAST SURGICAL HISTORY OF MRSA cyst removed from face PAST SURGICAL HISTORY OF Cyst removed from mouth SHOULDER SURGERY HX Left tendon repair Allergies / intolerances ALLERGIES Allergen Reactions Oseltamivir Vomiting, Other: See Comments got really sick // Tamiflu Amoxicillin-[place]* Diarrhea Sulfamethoxazole-Tr* GI Upset Medications venetoclax (VENCLEXTA) 50 mg tablet Take 1 tablet (50 mg) by mouth once daily. BASAGLAR KWIKPEN U-100 INSULIN 100 unit/mL (3 mL) Inject 52 Units subcutaneously every morning. allopurinol (ZYLOPRIM) 100 mg tablet Take 1 tablet by mouth once daily. tamsulosin (FLOMAX) 0.4 mg Take 1 capsule by mouth daily at bedtime. diphenoxylate-atropine (LOMOTIL) 2.5-0.025 mg per tablet Take 1 tablet by mouth four times a day as needed for diarrhea for up to 30 days. Blood-Glucose Sensor (DEXMOAEC G7 SENSOR) liana as directed. MELATONIN ORAL Take by mouth at bedtime as needed. multivit-minerals/folic acid (CENTRUM MULTIGUMMIES ORAL) Take by mouth once daily. L gasseri/B bifidum/B longum (PROBIOTIC COLON CARE ORAL) Take by mouth once daily as needed. insulin aspart U-100 (NOVOLOG FLEXPEN U-100 INSULIN) 100 unit/mL (3 mL) If Blood Glucose (mg/dL) is <110 Give 0 units 111-150 Give 0 units 151-200 Give 2 unit 201-250 Give 4 units 251-300 Give 6 units 301-350 Give 8 units 351-400 Give 10 units >400 Call physician. Insulin [place], Disposable, (BD ULTRA-FINE NAY PEN NEEDLE) 32 gauge x 5/32 Use as directed up to four times daily gabapentin (NEURONTIN) 100 mg capsule Take 1 capsule by mouth daily at bedtime for 30 days. (Patient taking differently: Take 100 mg by mouth once daily.) rOPINIRole (REQUIP) 2 mg tablet Take 1 tablet by mouth daily at bedtime. Cholecalciferol, Vitamin D3, (VITAMIN D) 25 mcg (1,000 unit) cap Take 2 capsules by mouth once daily. atorvastatin (LIPITOR) 10 mg tablet Take 10 mg by mouth once daily. cetirizine (ZYRTEC) 10 mg tablet Take 10 mg by mouth once daily. Social History Tobacco Use Smoking status: Former Current packs/day: 0.00 Average packs/day: 1 pack/day for 40.0 years (40.0 ttl pk-yrs) Types: Cigarettes Start date: 1977 Quit date: 2017 Years since quittin.1 Passive exposure: Past Smokeless tobacco: Never Tobacco comments: 03/30/2018 Vaping Use Vaping status: Never Used Substance Use Topics Alcohol use: Yes Comment: occassional Drug use: Yes Types: Marijuana Comment: THC edibles, 3x a week FAMILY HISTORY Problem Relation Age of Onset Cancer Mother brain 76 y/o Heart disease Mother Hypertension Mother Diabetes Father Heart disease Father Hypertension Father Heart Attack Father Diabetes Sister other (atrial fib) Sister COPD Sister No Known Problems Sister other (polio) Maternal Grandfather Diabetes Paternal Grandmother No Known Problems Daughter Physical examination There were no vitals taken for this visit. ECOG PS: 1- Restricted in physically strenuous activity. Carries out light duty. General appearance: Well appearing, alert, in no acute distress, well-hydrated, well nourished. Neck: Supple, no adenopathy; thyroid symmetric, normal size, no bruits Back: no pain to palpation Lungs: Lungs clear to auscultation. No wheezing, rhonchi, rales. Heart: RRR without murmur, gallop, or rubs. No ectopy Abdomen: Abdomen soft, non-tender. Bowel sounds normal. No masses, organomegaly Extremities: No deformities, edema, skin discoloration, clubbing or cyanosis. Good capillary refill. Laboratory tests WBC (k/uL) Date Value 06/11/2024 2.03 06/07/2024 2.56 06/05/2024 3.18 06/04/2024 2.00 05/28/2024 2.81 05/24/2024 4.07 05/21/2024 1.77 05/17/2024 2.54 05/10/2024 3.83 05/07/2024 1.37 07/02/2021 5.06 06/04/2021 3.93 05/07/2021 5.48 04/17/2021 4.95 03/26/2021 3.57 02/26/2021 3.61 01/28/2021 5.46 12/26/2020 4.99 12/05/2020 4.87 11/06/2020 7.08 Abs Neut (ANC) (k/uL) Date Value 07/02/2021 3.51 06/04/2021 1.85 05/07/2021 2.87 04/17/2021 2.77 03/26/2021 1.67 02/26/2021 1.49 01/28/2021 2.66 12/26/2020 3.07 12/05/2020 3.03 11/06/2020 5.02 Abs Neut (k/uL) Date Value 06/11/2024 0.61 06/07/2024 0.78 06/05/2024 1.71 05/28/2024 1.53 05/24/2024 2.42 05/17/2024 1.32 05/03/2024 0.44 04/30/2024 1.34 03/26/2024 0.68 03/12/2024 0.76 Abs Neut (Segs + Bands) (k/uL) Date Value 06/04/2024 0.81 05/21/2024 0.46 05/10/2024 2.03 05/07/2024 0.34 04/24/2024 3.05 04/23/2024 5.20 04/22/2024 0.91 04/21/2024 1.33 04/20/2024 2.10 04/16/2024 0.21 Hemoglobin (g/dL) Date Value 06/11/2024 9.7 06/07/2024 9.2 06/05/2024 8.9 06/04/2024 8.8 05/28/2024 9.8 05/24/2024 9.3 05/21/2024 8.9 05/17/2024 8.7 05/10/2024 9.4 05/07/2024 9.4 07/02/2021 14.0 06/04/2021 13.4 05/07/2021 14.3 04/17/2021 13.2 03/26/2021 13.6 02/26/2021 12.8 01/28/2021 13.0 12/26/2020 12.7 12/05/2020 12.3 11/06/2020 10.9 Platelet Count (k/uL) Date Value 06/11/2024 54 06/07/2024 79 06/05/2024 102 06/04/2024 107 05/28/2024 86 05/24/2024 101 05/21/2024 117 05/17/2024 90 05/10/2024 91 05/07/2024 103 07/02/2021 57 06/04/2021 100 05/07/2021 88 04/17/2021 95 03/26/2021 96 02/26/2021 96 01/28/2021 123 12/26/2020 130 12/05/2020 118 11/06/2020 131 Glucose (mg/dL) Date Value 06/11/2024 172 06/07/2024 291 06/05/2024 261 06/04/2024 181 05/28/2024 358 05/24/2024 301 05/21/2024 198 05/17/2024 176 05/10/2024 319 05/07/2024 286 07/02/2021 387 06/04/2021 354 05/07/2021 222 04/17/2021 248 03/26/2021 193 02/26/2021 218 01/28/2021 115 12/26/2020 191 12/05/2020 118 11/06/2020 137 Creatinine (mg/dL) Date Value 06/11/2024 1.14 06/07/2024 1.12 06/05/2024 1.16 06/04/2024 1.07 05/28/2024 1.05 05/24/2024 1.11 05/21/2024 1.01 05/17/2024 1.01 05/10/2024 1.03 05/07/2024 1.12 07/02/2021 1.13 06/04/2021 1.02 05/07/2021 1.20 04/17/2021 1.15 03/26/2021 1.09 02/26/2021 1.04 01/28/2021 1.04 12/26/2020 1.08 12/05/2020 0.89 11/06/2020 1.21 Calcium (mg/dL) Date Value 07/02/2021 10.2 06/04/2021 9.4 05/07/2021 9.9 04/17/2021 9.8 03/26/2021 9.8 02/26/2021 9.9 01/28/2021 9.6 12/26/2020 9.7 12/05/2020 9.6 11/06/2020 9.6 Calcium, Total (mg/dL) Date Value 06/11/2024 9.0 06/07/2024 9.3 06/05/2024 9.3 06/04/2024 9.4 05/28/2024 9.5 05/24/2024 9.0 05/21/2024 9.4 05/17/2024 9.4 05/10/2024 8.8 05/07/2024 8.9 M-Protein Concentration Date Value 05/17/2024 1.42 g/dL 03/12/2024 1.12 g/dL 02/03/2024 0.89 g/dL 12/09/2023 0.76 g/dL 10/14/2023 0.70 g/dL 09/15/2023 0.75 g/dL 08/18/2023 0.74 g/dL 07/13/2023 0.64 g/dL 06/15/2023 0.63 g/dL 05/18/2023 0.54 g/dL 04/20/2023 0.55 g/dL 03/23/2023 0.49 g/dL 02/16/2023 0.45 g/dL 01/19/2023 0.53 g/dL 12/22/2022 0.50 g/dL 11/17/2022 0.48 g/dL 09/24/2022 0.39 g/dL 09/01/2022 0.39 g/dL 08/04/2022 0.41 g/dL 07/07/2022 0.35 g/dL 06/09/2022 0.34 g/dL 05/12/2022 0.34 g/dL 04/14/2022 0.33 g/dL 02/17/2022 0.29 g/dL 01/18/2022 0.26 g/dL 12/18/2021 0.33 g/dL 11/20/2021 0.29 g/dL 09/25/2021 0.31 g/dL 08/28/2021 0.35 g/dL 07/30/2021 0.33 g/dL 07/02/2021 0.36 gm/dL 06/04/2021 0.31 gm/dL 04/17/2021 0.35 gm/dL 02/26/2021 0.37 gm/dL 12/26/2020 0.62 gm/dL 12/05/2020 0.53 gm/dL 11/06/2020 0.54 gm/dL 08/19/2020 0.61 gm/dL 05/19/2020 0.83 gm/dL 03/17/2020 1.49 gm/dL 02/18/2020 3.31 gm/dL 11/28/2019 3.33 gm/dL 08/29/2019 3.35 gm/dL 06/06/2019 3.23 gm/dL 11/29/2018 2.95 gm/dL M Дмитрий Quant, 24 Hr Urine Date Value 04/06/2022 0.03 g/24hr 12/17/2021 0.03 g/24hr 12/02/2020 0.01 gm/24 Hr 11/11/2020 0.01 gm/24 Hr 11/10/2020 Duplicate request gm/24 Hr 08/24/2020 0.02 gm/24 Hr 07/09/2020 0.05 gm/24 Hr [place] Free, Serum (mg/L) Date Value 05/17/2024 24.1 03/12/2024 27.6 02/03/2024 30.3 12/09/2023 40.2 10/14/2023 37.8 09/15/2023 41.0 08/18/2023 44.2 07/13/2023 42.7 06/15/2023 40.4 05/18/2023 30.4 04/20/2023 31.8 03/23/2023 23.1 02/16/2023 34.6 01/19/2023 32.7 12/22/2022 33.4 11/17/2022 19.9 09/24/2022 22.9 09/01/2022 25.1 08/04/2022 26.5 07/07/2022 22.4 06/09/2022 33.0 05/12/2022 47.5 04/14/2022 28.7 03/17/2022 28.2 02/17/2022 20.7 01/18/2022 19.6 12/18/2021 20.6 11/20/2021 29.4 09/25/2021 26.2 08/28/2021 24.1 07/30/2021 17.3 07/02/2021 22.3 06/04/2021 22.7 04/17/2021 12.4 02/26/2021 20.8 12/26/2020 10.6 12/05/2020 9.4 12/05/2020 10.4 11/06/2020 11.6 08/19/2020 15.3 05/19/2020 16.9 03/17/2020 21.4 02/18/2020 14.4 11/28/2019 14.6 08/29/2019 16.2 06/06/2019 14.0 11/29/2018 15.7 Lambda Free, Serum (mg/L) Date Value 05/17/2024 73.2 03/12/2024 38.5 02/03/2024 29.1 12/09/2023 43.5 10/14/2023 41.1 09/15/2023 39.1 08/18/2023 39.8 07/13/2023 35.5 06/15/2023 32.1 05/18/2023 22.6 04/20/2023 23.3 03/23/2023 15.0 02/16/2023 22.9 01/19/2023 24.7 12/22/2022 31.1 11/17/2022 18.9 09/24/2022 17.7 09/01/2022 15.7 08/04/2022 15.2 07/07/2022 13.7 06/09/2022 21.4 05/12/2022 21.4 04/14/2022 17.1 03/17/2022 16.1 02/17/2022 13.1 01/18/2022 12.2 12/18/2021 11.6 11/20/2021 17.3 09/25/2021 20.2 08/28/2021 18.3 07/30/2021 13.5 07/02/2021 18.8 06/04/2021 11.1 04/17/2021 10.7 02/26/2021 17.9 12/26/2020 16.8 12/05/2020 18.1 12/05/2020 18.8 11/06/2020 19.5 08/19/2020 17.0 05/19/2020 57.4 03/17/2020 166.1 02/18/2020 218.1 11/28/2019 191.4 08/29/2019 243.0 06/06/2019 187.3 11/29/2018 136.8 IgG (mg/dL) Date Value 05/17/2024 2,007 03/12/2024 1,697 02/03/2024 1,579 12/09/2023 1,560 10/14/2023 1,404 09/15/2023 1,359 08/18/2023 1,343 07/13/2023 1,306 06/15/2023 1,454 05/18/2023 1,102 04/20/2023 1,188 03/23/2023 1,012 02/16/2023 989 01/19/2023 1,046 12/22/2022 1,076 11/17/2022 929 09/24/2022 922 09/01/2022 913 08/04/2022 861 07/07/2022 892 06/09/2022 784 05/12/2022 844 04/14/2022 896 03/17/2022 811 02/17/2022 905 01/18/2022 868 12/18/2021 889 11/20/2021 782 09/25/2021 772 08/28/2021 804 07/30/2021 714 03/17/2020 2,078 MPA IgG, Serum (mg/dL) Date Value 07/02/2021 760 06/04/2021 719 04/17/2021 815 02/26/2021 841 12/26/2020 1,081 12/05/2020 1,032 11/06/2020 1,003 08/19/2020 938 05/19/2020 1,257 02/18/2020 4,871 11/28/2019 5,160 08/29/2019 5,120 06/06/2019 4,300 IgA (mg/dL) Date Value 05/17/2024 100 03/12/2024 125 02/03/2024 142 12/09/2023 174 10/14/2023 161 09/15/2023 169 08/18/2023 168 07/13/2023 165 06/15/2023 200 05/18/2023 143 04/20/2023 120 03/23/2023 96 02/16/2023 145 01/19/2023 165 12/22/2022 135 11/17/2022 101 09/24/2022 114 09/01/2022 114 08/04/2022 108 07/07/2022 128 06/09/2022 129 05/12/2022 147 04/14/2022 131 03/17/2022 109 02/17/2022 118 01/18/2022 111 12/18/2021 123 11/20/2021 120 09/25/2021 92 08/28/2021 87 07/30/2021 76 03/17/2020 16 MPA IgA, Serum (mg/dL) Date Value 07/02/2021 67 06/04/2021 63 04/17/2021 55 02/26/2021 57 12/26/2020 47 12/05/2020 54 11/06/2020 62 08/19/2020 55 05/19/2020 32 02/18/2020 <5 11/28/2019 13 08/29/2019 15 06/06/2019 14 IgM (mg/dL) Date Value 05/17/2024 59 03/12/2024 22 02/03/2024 31 12/09/2023 26 10/14/2023 27 09/15/2023 28 08/18/2023 23 07/13/2023 20 06/15/2023 25 05/18/2023 18 04/20/2023 18 03/23/2023 15 02/16/2023 13 01/19/2023 17 12/22/2022 23 11/17/2022 22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 July 07, 2022: Saw Dr. Michael 1 week ago and will be seeing plastic surgery - Dr. Moore - currently on Doxycycline. Diarrhea improved. Blood sugars still very high - reviewed and educated regarding Sister 2 weeks ago in [facility]. [facility] and had wound cleaned out. Updated Visit, June 09, 2022: Continues to have ID issues now has diarrhea following two rounds of antibiotic for sinus infections and also additional for MRSA of his left face. M-spike stable. IgG is > 700. Blood sugars are > 500 with adjustments in insulin. Updated Visit, May 12, 2022: Jon Bauer returns for scheduled follow-up. He remains on Revlimid 5 mg daily which he is tolerating well. He denies any significant side effects from the Revlimid. He states that he did not take the Revlimid for 3 to 4 days this month after starting the antibiotic because the combination was rough on his stomach. He recently developed a head cold and chest congestion. He was diagnosed with an ear infection by his PCP. He states that he has been feeling under the weather! . He was given a course of amoxicillin and then developed diarrhea. His symptoms did not improve and was recently started on another course of antibiotics and prednisone. He denies fevers and chills. He denies bleeding and abnormal bruising. No new unusual pain. Updated Visit, April 14, 2022: Labs stable. 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 No other major issues. Chronic limitations to duration of exercise. 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 Counts are stable. Updated Visit, February 17, 2022: Jon Bauer returns for follow-up and labs. He is still being treated for MRSA with Bactrim and a face wash. He has had oral thrush on and off for a couple of months. He remains on Revlimid 5 mg daily and is tolerating it well. He denies any significant side effects from the Revlimid. He denies fevers, chills, night sweats and signs/symptoms of infection. No bleeding or abnormal bruising. Overall he is doing well with no new complaints today. No new issues, problems or concerns. Updated Visit, January 18, 2022: Infection in cheek - (MRSA) is resolving currently on Bactrim DS for a 30 day course. Will resume Revlimid 5 mg and if platelets drop below 35k will decrease to 2.5 mg daily. Currently platelets have recovered to 78k nd will resume treatment. Now has a scab on his right forearm and is seeing dermatology. Looks like a superficial burn with skin sloughing 2 friends have recently - just sad about that. Updated Visit, January 01, 2022: Jon returns and is quite uncomfortable. His platelets still low and abscesses have recurred. Blood sugar is high - can't get in to see Dr. Michael - going to the ER Leisa won several prizes from baking at the fair and granddaughter won showing her pig. Updated Visit, December 18, 2021: Jon returns and his facial infection finally cleared up but required debridement and drainage. Had Dalvance IV Thrush resolved Platelets still low Will hold Revlimid for 2 more weeks - still thromboctopenic - will see if clearance from Dalvance will allow him to resolve. Updated Visit, November 20, 2021: Returns today and retells his saga with sinus infection from last visit: Augmentin didn't help - required tessalon, prednisone and levaquin to get things improved. 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 Otherwise doing well from myeloma standpoint. Updated Visit, October 23, 2021: Jon returns alone today and remains on Rev maintenance. Sinus fullness and productive cough will treat empirically. Otherwise continues to do well. Updated Visit, September 25, 2021: Jon Bauer returns for follow-up. He remains on Revlimid 5 mg daily and is tolerating it well. He denies any side effects from the Revlimid. He started his current cycle on September 08. He denies any unusual pain. He denies fevers, chills, night sweats and signs/symptoms of infection. He denies any abnormal bleeding or abnormal bruising. His skin is thin as he ages and tends to bleed easier due to that. His diarrhea is much improved. He remains on Metamucil. He offers no new complaints today. No new issues, problems or concerns. Updated Visit, August 28, 2021: Diarrhea associated with Metformin now improved significantly. His counts are fairly stable but platelets are a little low. Will continue treatment as is for now and consider holding the dose if he gets lower. Back on insulin for managing blood sugars. Updated Visit, July 30, 2021: Still has diarrhea biopsy results pending. Leisa is with him today. He is doing well overall. Will resume Revlimid at 5 mg daily. Platelets are at 100k. Updated Visit, July 16, 2021: Telephone only for 12 minutes Called Jon as requested and his counts were reviewed. His platelets are improving but still less than 100k. Unfortunately he still has daily diarrhea but is seeing Dr. Garay next week. We will plan to hold his Revilimid for a few weeks longer. Updated Visit, July 02, 2021: Platelets suppressed after having restarted revlimid 1 week ago - will ask him to stop. Still having diarrhea and is going to GI tomorrow M-spike continues to drop slowly. If unable to continue Rev, will change maintenance. Updated Visit, May 07, 2021: Will resume lexapro for depression. May be confusing ativan with lexapro No additional rash - Leisa is with him today. If it recurs, we can switch maintenance to Ixazomib or pomalidomide - defer to transplant team. Updated Visit, April 17, 2021: Walking better, neuropathy improving, fatigue resolving, appetite is improved. Only thing worse is restless legs in the evening. Getting his vaccination series. Labs stable. Rash is resolved. Updated Visit, January 28, 2021: Intermittent bowel issues but no significant problems. Both COVID-19 Vax Pfizer as of tomorrow Balance and activity levels are better - dizziness has resolved. recovereing from mild Upper respiratory viral infection Updated Visit, December 26, 2020: Jon returns today reporting a hospitalization for SBO with intractable nausea 12/16/2020. Managed conservatively and resolved. Proceed with vaccination schedule Start with COVID-19 vax. Occult Blood in stools - consider CT at next visit. Updated Visit, December 05, 2020: Occasional swelling in knees and ankles but is walking and getting more active. Still gets cold easily and has intermittent diarrhea but less than previous. Anemia is improved. Still has fatigue but is improving with continued activity. D100 s approximately 12/27/2020 and will need to start maintenance Revlimid beyond that time. He will need COVID Vax and others on schedule that he has. Updated Visit, November 13, 2020: Jon is 70 yo and underwent Autologous transplant. September 19, 2020 was day of Autologous transplant and is doing well. We will continue monitoring his response and will anticipate starting maintenance therapy at the appropriate time. He had recent resolution of GI symptoms due to a prolonged course of Cipro- which once identified was stopped and symptoms resolved. 08/24/2020 his pretransplant testing revealed a 24-hour urine with 0.02 gm M spike. His serum M protein was 0.61, serum kappa light chains 15.3, serum lambda light chain 17.0, serum kappa/lambda ratio 0.90 (normal 0.26-1.65), and his bone marrow examination from 08/19/2020 was 40% cellular with less than 5% plasma cells and normal cytogenetics. His pretransplant disease response was a OK. Transplant overview: Protocol(s): 3422 1C Preparative regimen: Melphalan Mobilization regimen: plerixafor & neupogen Stem cell source: apheresis CD34 cell dose (x10e6/kg): 4.05 Date of transplant: 09/19/2020 Updated Visit, August 11, 2020: Jon is 69 years old and returns to resume treatment with Velcade plus Revlimid just prior to getting autologous transplant. He has recovered from Covid and is much more active and feels quite a bit better. Fatigue is resolved and he had a great week last week. His counts have recovered and he is safe to proceed. Updated Visit, July 11, 2020: Jon is 69 yo and ended up getting COVID-19 and we held treatment. He has now recovered from the acute effects and has also normalized his kidney function. We will resume treatment next week. Still fatigued, didn't end up in the hospital at least. Updated Visit, June 04, 2020: Jon is 69 yo and returns for ongoing treatment of MM with RVD. He is having difficulty with tolerance and complains of persisting diarrhea - will stop revlimid (he's still taking 25mg). He saw Dr. Campbell for transplant and we will get a 24 hour urine IEP with the next assessment. We will have a break in treatment and then start Rev at a lower dose as previously discussed with him. Updated Visit, May 19, 2020: Feel better but has burning in his stomach which we will try mylanta rather than Pepto-bismol. He is due to see BMT tomorrow virtually and otherwise, with the resolution of his symptoms from last week, he will resume treamtent as scheduled. He has responsive disease on RVD. Updated Visit, May 12, 2020: Jon is 69 yo and is being treated from IgG Lambda multiple myeloma with initial M-spike of 3.3 gm and small lytic lesions in both humeral heads and distal right femur. PET CT noted a lesion on the sternum. He is due for cycle 4 but feels lousy with respect to energy and persisting nausea. He has mild sensory neuropathy as well and is struggling with the decadron to manage his sugars. Updated Visit, April 14, 2020: Jon is 69 years old and returns for treatment for his newly diagnosed multiple myeloma currently on RVD. 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 Bone marrow biopsy in December 2019 revealed findings consistent with smoldering myeloma but with small lytic lesions in both humeral heads as well as right distal femur and an additional lesion noted on the sternum by PET/CT, we elected to treat him with 8-10 cycles of RVD. I discussed consideration of pulmonary transplant with him at his last visit and I will plan on referring him following his third cycle of treatment. He reports that he had issues with nausea and diarrhea, as well gas. Everything is settled down, but he is anxious about symptoms going forward. Updated visit, March 17, 2020: Jon is 69 years old and returns with his Leisa for treatment of newly diagnosed multiple myeloma for which he has been started on RVD. He was followed for a monoclonal gammopathy IgG lambda of 3.3 g since November 2018. Biopsy in December 2019 demonstrated what appeared to be smoldering myeloma but he had small lytic lesions in both humeral heads as well as distal right femur. PET/CT showed an additional lesion in the sternum but did not find the femoral or humeral head lesions based on these findings we electively started him on initial treatment. I anticipate 8-10 cycles of RVD and he returns today for his second cycle. He tolerated his first cycle well however he has some unpredictable bouts of diarrhea small rash on his neck that is resolving as well as candidal mucositis that resolved with Diflucan. Overall he is tolerating treatment very well, has no neuropathy and is willing to proceed with additional treatment as planned. Updated Visit, February 08, 2020: Jon Bauer is a 69 year old male seen for a monoclonal gammopathy found on routine labs. The patient was found to have a monoclonal gammopathy of (IgG) 3.3 gm with lambda specificity noted in Dr. BALDWIN's notes from 11/29/2018. 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 A PET/CT wich showed only a sternal lesion with uptake FDG with SUV 2.7 and no uptake in either femur or humeral heads. Findings are consistent with multiple myeloma and we will proceed with induction therapy. I sat with him and his Leisa and extensively reviewed the treatmtent plan as well as the risks and benefits. I anticipate 8-10 cycles of induction. I will discuss HCT with them at their next visit so as to not overwhelm them. He has mild neuropathy from poorly controlled diabetes and coronary artery calcification but otherwise has a well preserved performance status and could be appropriate despite being older than 65. PATHOLOGIC PROFILE/MOLECULAR DATA: 12/17/2019 - bone marrow biopsy and aspirate: Bone marrow, aspirate smear and core biopsy, with clot section and peripheral blood: -Involved by plasma cell neoplasm with 5 to 10% plasma cells. -Normocellular bone marrow 20% with trilineage hematopoiesis. -Stainable iron present. -Comment-the patient has a history of IgG lambda monoclonal protein. The bone marrow shows involvement by a plasma cell neoplasm with 3% plasma cells in the aspirate smear and 5 to 10% plasma cells by immunohistochemistry. Final classification of plasma cell neoplasms require correlation with additional clinical laboratory and/or radiologic findings. FISH for plasma cell neoplasm: Findings demonstrated plasma cell population with trisomy 9, trisomy 15 and gain of genetic material at the CCN D1 locus or trisomy 11. These findings are consistent with the presence of a plasma cell neoplasm and represent standard risk disease. Cytogenetics: Normal male karyotype 46, XY 20 REVIEW OF SYSTEMS Per HPI and otherwise negative by full review of organ systems. ECOG PERFORMANCE STATUS: 0 PHYSICAL EXAMINATION: Vitals: BP 128/73 Pulse 82 Temp (Src) 97.4 (Temporal) Resp 16 Ht 5' 10.984 (1.80m) Wt 251 lb 12.3 oz (114.2kg) SpO2 97% BMI 35.13 kg/(m^2). Body surface area is 2.39 meters squared. Exam limited to gross visualization where appropriate. Gen.: This is an age-appropriate patient in no acute distress. Head: Appears atraumatic with no visible lesions. Eyes: Pupils equally round and reactive to light, extraocular muscles are intact. Neck: Supple. Respiratory: Appears to be respiring comfortably. Neurologic: Nonfocal to gross visualization. Alert and oriented 3. Psychiatric: No evidence of inappropriate anxiety or depression. Skin: Visible areas of skin without rash, lesions, wounds or petechiae. ALLERGIES: ALLERGIES Allergen Reactions Oseltamivir Vomiting, Other: See Comments got really sick // Tamiflu Amoxicillin-Pot Cla* Diarrhea Sulfamethoxazole-Tr* GI Upset MEDICATIONS: venetoclax (VENCLEXTA) 50 mg tablet Take 1 tablet (50 mg) by mouth once daily. BASAGLAR KWIKPEN U-100 INSULIN 100 unit/mL (3 mL) Inject 52 Units subcutaneously every morning. allopurinol (ZYLOPRIM) 100 mg tablet Take 1 tablet by mouth once daily. tamsulosin (FLOMAX) 0.4 mg Take 1 capsule by mouth daily at bedtime. diphenoxylate-atropine (LOMOTIL) 2.5-0.025 mg per tablet Take 1 tablet by mouth four times a day as needed for diarrhea for up to 30 days. Blood-Glucose Sensor (DEXMOAEC G7 SENSOR) liana as directed. MELATONIN ORAL Take by mouth at bedtime as needed. multivit-minerals/folic acid (CENTRUM MULTIGUMMIES ORAL) Take by mouth once daily. L gasseri/B bifidum/B longum (PROBIOTIC COLON CARE ORAL) Take by mouth once daily as needed. insulin aspart U-100 (NOVOLOG FLEXPEN U-100 INSULIN) 100 unit/mL (3 mL) If Blood Glucose (mg/dL) is <110 Give 0 units 111-150 Give 0 units 151-200 Give 2 unit 201-250 Give 4 units 251-300 Give 6 units 301-350 Give 8 units 351-400 Give 10 units >400 Call physician. Insulin [place], Disposable, (BD ULTRA-FINE NAY PEN NEEDLE) 32 gauge x 5/32 Use as directed up to four times daily gabapentin (NEURONTIN) 100 mg capsule Take 1 capsule by mouth daily at bedtime for 30 days. (Patient taking differently: Take 100 mg by mouth once daily.) rOPINIRole (REQUIP) 2 mg tablet Take 1 tablet by mouth daily at bedtime. Cholecalciferol, Vitamin D3, (VITAMIN D) 25 mcg (1,000 unit) cap Take 2 capsules by mouth once daily. atorvastatin (LIPITOR) 10 mg tablet Take 10 mg by mouth once daily. cetirizine (ZYRTEC) 10 mg tablet Take 10 mg by mouth once daily. cholestyramine (QUESTRAN) 4 gram packet Take 1 Packet by mouth two times a day with meals. (Patient not taking: Reported on 06/11/2024) LABORATORY VALUES: WBC (k/uL) Date Value 06/11/2024 2.03 (L) RBC (m/uL) Date Value 06/11/2024 2.86 (L) Hemoglobin (g/dL) Date Value 06/11/2024 9.7 (L) Hematocrit (%) Date Value 06/11/2024 28.7 (L) MCV (fL) Date Value 06/11/2024 100.3 (H) MCH (pg) Date Value 06/11/2024 33.9 MCHC (g/dL) Date Value 06/11/2024 33.8 RDW-CV (%) Date Value 06/11/2024 19.1 (H) Platelet Count (k/uL) Date Value 06/11/2024 54 (L) MPV (fL) Date Value 06/11/2024 8.9 (L) Glucose (mg/dL) Date Value 06/11/2024 172 (H) BUN (mg/dL) Date Value 06/11/2024 19 Creatinine (mg/dL) Date Value 06/11/2024 1.14 Sodium (mmol/L) Date Value 06/11/2024 134 (L) Potassium (mmol/L) Date Value 06/11/2024 4.0 Chloride (mmol/L) Date Value 06/11/2024 102 CO2 (mmol/L) Date Value 06/11/2024 22 Protein, Total (g/dL) Date Value 06/11/2024 7.4 Albumin (g/dL) Date Value 06/11/2024 3.9 Calcium, Total (mg/dL) Date Value 06/11/2024 9.0 Alkaline Phosphatase (U/L) Date Value 06/11/2024 89 Bilirubin, Total (mg/dL) Date Value 06/11/2024 0.7 AST (U/L) Date Value 06/11/2024 54 (H) ALT (U/L) Date Value 06/11/2024 41 Cholesterol, Total (mg/dL) Date Value 03/19/2024 92 Triglyceride (mg/dL) Date Value 03/19/2024 225 (H) M-Protein Concentration Date Value 05/17/2024 1.42 g/dL 03/12/2024 1.12 g/dL 02/03/2024 0.89 g/dL 12/09/2023 0.76 g/dL 10/14/2023 0.70 g/dL 07/02/2021 0.36 gm/dL 06/04/2021 0.31 gm/dL 04/17/2021 0.35 gm/dL 02/26/2021 0.37 gm/dL 12/26/2020 0.62 gm/dL DIAGNOSIS: No diagnosis found. PAST MEDICAL HISTORY Diagnosis Date Abdominal aortic aneurysm (HCC) Allergic rhinitis Biceps rupture, proximal 04/09/2014 Bicipital tenosynovitis 11/01/2013 Chronic pain COVID-19 06/11/2020 positive test 06/13/20 Depression 09/18/2020 Continue home dose of lexapro Elevated blood protein elevated MGUS Generalized anxiety disorder Glaucoma Hepatocellular carcinoma (HCC) Hypercholesteremia 09/17/2020 Hold Lipitor inpatient Hyperlipemia Hypertension Leukocytosis MRSA infection Multiple myeloma (HCC) 09/17/2020 6 Cycles RVD (February 2020 through August 2020) in a [place] Multiple myeloma not having achieved remission (HCC) 02/04/2020 Neuropathy 08/20/2020 Continue home Gabapentin Obesity Restless leg syndrome 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 Protocol(s): 3422 1C Preparative regimen: Melphalan Mobilization regimen: plerixafor & neupogen Stem cell source: apheresis CD34 cell dose (x10e6/kg): 4.05 Date of transplant: 09/19/20 Type 2 diabetes (HCC) 08/20/2020 Takes metformin, Lantus, victoza & Farxiga Sliding Scale inpatient & Lantus Plan: -Endo following, recs in dc instructions for home Type II or unspecified type diabetes mellitus without mention of complication, uncontrolled PAST SURGICAL HISTORY Procedure Laterality Date EXTENSIVE FINGER SURGERY Right FOOT/TOES SURGERY PROC UNLISTED Left hammer toes and bunions HEPATECTOMY RESCJ TOTAL RIGHT LOBECTOMY 10/08/2022 lap right hepatectomy for T2Nx [facility] LAPAROSCOPIC CHOLECYSTECTOMY 10/08/2022 LIVER BIOPSY PALATOP CL PALATE ATTACHMENT PHARYNGEAL FLAP age 5 PAST SURGICAL HISTORY OF MRSA cyst removed from face PAST SURGICAL HISTORY OF Cyst removed from mouth SHOULDER SURGERY HX Left tendon repair Social History Tobacco Use Smoking status: Former Current packs/day: 0.00 Average packs/day: 1 pack/day for 40.0 years (40.0 ttl pk-yrs) Types: Cigarettes Start date: 1977 Quit date: 2017 Years since quittin.0 Passive exposure: Past Smokeless tobacco: Never Tobacco comments: 03/30/2018 Vaping Use Vaping status: Never Used Substance Use Topics Alcohol use: Yes Comment: occassional Drug use: Yes Types: Marijuana Comment: THC edibles, 3x a week FAMILY HISTORY Problem Relation Age of Onset Cancer Mother brain 76 y/o Heart disease Mother Hypertension Mother Diabetes Father Heart disease Father Hypertension Father Heart Attack Father Diabetes Sister other (atrial fib) Sister COPD Sister No Known Problems Sister other (polio) Maternal Grandfather Diabetes Paternal Grandmother No Known Problems Daughter I spent a total of 30 minutes on the date of the service which included preparing to see the patient, [id number] patient care, completing clinical documentation, obtaining and/or reviewing separately obtained history, performing a medically appropriate examination, counseling and educating the patient/family/caregiver, ordering medications, tests, or procedures, independently interpreting results (not separately reported), and communicating results to the patient/family/caregiver. Soha Nunn APRN.[facility] Provided at: [place], [place] CC: Dr. Letha Payton [address] [facility] Dr. Denis Stevens Patient stats he was nauseous, diarrhea, chills, leg pain last night. Tuesday and Tuesday he didn't feel well but yesterday was worse. Mariaelena Wiggins MA documented in this encounter [facility] 06-08-2024 Telephone encounter Note Patient has been scheduled with Dr. Moreira on 06/15. Thanks! Juanita Valdez [facility] 06-08-2024 Miscellaneous Notes Patient has been scheduled with Dr. Moreira on 06/15. Thanks! Juanita Valdez Patient still does not have an appointment, sent message back requesting update of appt. Juanita Valdez Sent Email to [facility] for referral to Dr. Moreira. Juanita Valdez Emilia/LYSSA: Referral order pended. Clerical: Dr Youssef would like pt to see Dr Osvaldo Moreira at to discuss additional treatment options. Arcelia Thomas, RN Images from the original note were not included. Vimal Crandall MD Williams, Louis Samuel, MD; Arcelia Thomas, RN [place] - need your help with this jordan - he's the one with t(11:14) myeloma that I've been trying to get going on Ventoclax without success. He's had too many co-morbidities. I effectively don't have him on anything and have been thinking of starting Peace Velcade + low dose Dex. But I would like to give the venclexta a fair shot... Would you mind seeing him - even as a virtual visit? Thanks, Emilia. documented in this encounter [facility] 06-08-2024 Telephone encounter Note Patient still does not have an appointment, sent message back requesting update of appt. Juanita Valdez [facility] 06-07-2024 History of Present illness Narrative Jon Bauer is a 73 y.o. male No ref. provider found presents with chief complaint of Diabetes HPI: Interim history: 05/2024 Followup visit 06/07/2024 . A1c 7.2 Blood sugar 290. Currently he is on Basaglar 52 and Humalog 12, 15, 18 plus scale #2. Trulicity 1.5 mg need prior authorization. Interim history: 01/2024 Followup visit 02/02/2024. A1c 9.7 Blood sugar 396. Currently he is on Basaglar 52 and Humalog 10, 12, 15 plus scale #2.off Jardiance for one week due ot plan for knee surgery. Interim history: 10/2023 Followup visit 11/03/2023. A1c 8.7. Blood sugar 290. Currently he is on Basaglar 52 and Humalog 10, 12, 15 plus scale #2.off Jardiance on and off due to polyuria. CGM 0-27-73 AVG 225. Interim history: 07/2023 Followup visit 07/12/2023. A1c 8.5. Blood sugar 184. Currently he is on Basaglar 50 and Humalog 10, 12, 15 plus scale #2. on Jardiance on and off due to polyuria. CGM 0-21-79 AVG 226. Interim history: 03/2023. Followup visit 03/15/2023. A1c 8.4. Blood sugar 170. Currently he is on Basaglar 40 and Humalog 10, 12, 15 plus scale #2. Did not start Jardiance, only sample. Lab, kidney function GFR 65. CGM Dexcom 7: 0 in low range, 20 in good range, 80 in high range, average 226. They found something in his kidney and he has to investigate with his urologist. HPI: 12/2022 New patient sent from Sana Key DO for uncontrolled diabetes. A1C in our office 9.2; blood sugar 212; CGM Dexcom 0% low range, 3 in good range, 97 high range, average 285. He is currently on Basaglar 30 in the morning, but switched to 20 twice a day, did not start yet. NovoLog average sliding scale, will do 16 units once or twice a day. He is off Farxiga, off glipizide, off Victoza. He has a history of bone marrow stem transplant due to multiple myeloma and recently had liver surgery due to liver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 marrow 20% with trilineage hematopoiesis. -Stainable iron present. -Comment-the patient has a history of IgG lambda monoclonal protein. The bone marrow shows involvement by a plasma cell neoplasm with 3% plasma cells in the aspirate smear and 5 to 10% plasma cells by immunohistochemistry. Final classification of plasma cell neoplasms require correlation with additional clinical laboratory and/or radiologic findings. FISH for plasma cell neoplasm: Findings demonstrated plasma cell population with trisomy 9, trisomy 15 and gain of genetic material at the CCN D1 locus or trisomy 11. These findings are consistent with the presence of a plasma cell neoplasm and represent standard risk disease. Cytogenetics: Normal male karyotype 46, XY 20 REVIEW OF SYSTEMS Per HPI and otherwise negative by full review of organ systems. ECOG PERFORMANCE STATUS: 0 PHYSICAL EXAMINATION: Vitals: BP 119/70 Pulse 90 Temp (Src) 97.8 (Temporal) Resp 16 Ht 5' 10.984 (1.80m) Wt 246 lb 7.6 oz (111.8kg) SpO2 99% BMI 34.39 kg/(m^2). Body surface area is 2.37 meters squared. Exam limited to gross visualization where appropriate. Gen.: This is an age-appropriate patient in no acute distress. Head: Appears atraumatic with no visible lesions. Eyes: Pupils equally round and reactive to light, extraocular muscles are intact. Neck: Supple. Respiratory: Appears to be respiring comfortably. Neurologic: Nonfocal to gross visualization. Alert and oriented 3. Psychiatric: No evidence of inappropriate anxiety or depression. Skin: Visible areas of skin without rash, lesions, wounds or petechiae. ALLERGIES: ALLERGIES Allergen Reactions Oseltamivir Vomiting, Other: See Comments got really sick // Tamiflu Amoxicillin-[place] Cla* Diarrhea Sulfamethoxazole-Tr* GI Upset MEDICATIONS: BASAGLAR KWIKPEN U-100 INSULIN 100 unit/mL (3 mL) Inject 52 Units subcutaneously every morning. cholestyramine (QUESTRAN) 4 gram packet Take 1 Packet by mouth two times a day with meals. cefdinir (OMNICEF) 300 mg capsule Take 1 capsule by mouth two times a day for 10 days. Patient should start on April 25, 2024. metroNIDAZOLE (FLAGYL) 500 mg tablet Take 1 tablet by mouth three times a day for 11 days. First dose this evening allopurinol (ZYLOPRIM) 100 mg tablet Take 1 tablet by mouth once daily. tamsulosin (FLOMAX) 0.4 mg Take 1 capsule by mouth daily at bedtime. Blood-Glucose Sensor (DEXCOM G7 SENSOR) liana as directed. MELATONIN ORAL Take by mouth at bedtime as needed. multivit-minerals/folic acid (CENTRUM MULTIGUMMIES ORAL) Take by mouth once daily. L gasseri/B bifidum/B longum (PROBIOTIC COLON CARE ORAL) Take by mouth once daily as needed. insulin aspart U-100 (NOVOLOG FLEXPEN U-100 INSULIN) 100 unit/mL (3 mL) If Blood Glucose (mg/dL) is <110 Give 0 units 111-150 Give 0 units 151-200 Give 2 unit 201-250 Give 4 units 251-300 Give 6 units 301-350 Give 8 units 351-400 Give 10 units >400 Call physician. Insulin [place], Disposable, (BD ULTRA-FINE NAY PEN NEEDLE) 32 gauge x 5/32 Use as directed up to four times daily rOPINIRole (REQUIP) 2 mg tablet Take 1 tablet by mouth daily at bedtime. Cholecalciferol, Vitamin D3, (VITAMIN D) 25 mcg (1,000 unit) cap Take 2 capsules by mouth once daily. atorvastatin (LIPITOR) 10 mg tablet Take 10 mg by mouth once daily. cetirizine (ZYRTEC) 10 mg tablet Take 10 mg by mouth once daily. venetoclax (VENCLEXTA) 50 mg tablet Take 1 tablet (50 mg) by mouth once daily. diphenoxylate-atropine (LOMOTIL) 2.5-0.025 mg per tablet Take 1 tablet by mouth four times a day as needed for diarrhea for up to 30 days. gabapentin (NEURONTIN) 100 mg capsule Take 1 capsule by mouth daily at bedtime for 30 days. (Patient taking differently: Take 100 mg by mouth once daily.) LABORATORY VALUES: WBC (k/uL) Date Value 04/24/2024 4.69 RBC (m/uL) Date Value 04/24/2024 2.69 (L) Hemoglobin (g/dL) Date Value 04/24/2024 8.8 (L) Hematocrit (%) Date Value 04/24/2024 25.8 (L) MCV (fL) Date Value 04/24/2024 95.9 MCH (pg) Date Value 04/24/2024 32.7 MCHC (g/dL) Date Value 04/24/2024 34.1 RDW-CV (%) Date Value 04/24/2024 17.3 (H) Platelet Count (k/uL) Date Value 04/24/2024 122 (L) MPV (fL) Date Value 04/24/2024 9.2 Glucose (mg/dL) Date Value 04/24/2024 203 (H) BUN (mg/dL) Date Value 04/24/2024 16 Creatinine (mg/dL) Date Value 04/24/2024 1.03 Sodium (mmol/L) Date Value 04/24/2024 134 (L) Potassium (mmol/L) Date Value 04/24/2024 3.8 Chloride (mmol/L) Date Value 04/24/2024 103 CO2 (mmol/L) Date Value 04/24/2024 24 Protein, Total (g/dL) Date Value 04/20/2024 6.3 Albumin (g/dL) Date Value 04/24/2024 3.1 (L) Calcium, Total (mg/dL) Date Value 04/24/2024 8.1 (L) Alkaline Phosphatase (U/L) Date Value 04/20/2024 54 Bilirubin, Total (mg/dL) Date Value 04/20/2024 1.2 AST (U/L) Date Value 04/20/2024 20 ALT (U/L) Date Value 04/20/2024 24 Cholesterol, Total (mg/dL) Date Value 03/19/2024 92 Triglyceride (mg/dL) Date Value 03/19/2024 225 (H) M-Protein Concentration Date Value 03/12/2024 1.12 g/dL 02/03/2024 0.89 g/dL 12/09/2023 0.76 g/dL 10/14/2023 0.70 g/dL 09/15/2023 0.75 g/dL 07/02/2021 0.36 gm/dL 06/04/2021 0.31 gm/dL 04/17/2021 0.35 gm/dL 02/26/2021 0.37 gm/dL 12/26/2020 0.62 gm/dL DIAGNOSIS: (C90.00) Multiple myeloma not having achieved remission (HCC) (primary encounter diagnosis) Plan: venetoclax (VENCLEXTA) 50 mg tablet, B2 MICROGLOBULIN, COMPLETE BLOOD COUNT AND DIFFERENTIAL, COMPREHENSIVE METABOLIC PANEL, LACTATE DEHYDROGENASE, PHOSPHORUS INORGANIC, PROTEIN ELECTROPHORESIS SERUM W/INTERP, MONOCLONAL PROTEIN, SERUM (BLOOD), URIC ACID, CALCIUM, IONIZED, KAPPA/ORTIZ,FREE,SER (D70.3) Neutropenia associated with infection (HCC) (C22.0) Hepatocellular carcinoma (HCC) (Z94.81) 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) Stage 3 chronic kidney disease, unspecified whether stage 3a or 3b CKD (HCC) (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), type 2 with complications (HCC) PAST MEDICAL HISTORY Diagnosis Date Abdominal aortic aneurysm (HCC) Allergic rhinitis Biceps rupture, proximal 04/09/2014 Bicipital tenosynovitis 11/01/2013 Chronic pain COVID-19 06/11/2020 positive test 06/13/20 Depression 09/18/2020 Continue home dose of lexapro Elevated blood protein elevated MGUS Generalized anxiety disorder Glaucoma Hepatocellular carcinoma (HCC) Hypercholesteremia 09/17/2020 Hold Lipitor inpatient Hyperlipemia Hypertension Leukocytosis MRSA infection Multiple myeloma (HCC) 09/17/2020 6 Cycles RVD (February 2020 through August 2020) in a [place] Multiple myeloma not having achieved remission ([facility]) 02/04/2020 Neuropathy 08/20/2020 Continue home Gabapentin Obesity Restless leg syndrome 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 Protocol(s): 3422 1C Preparative regimen: Melphalan Mobilization regimen: plerixafor & neupogen Stem cell source: apheresis CD34 cell dose (x10e6/kg): 4.05 Date of transplant: 09/19/20 Type 2 diabetes ([facility]) 08/20/2020 Takes metformin, Lantus, victoza & Farxiga Sliding Scale inpatient & Lantus Plan: -Endo following, recs in dc instructions for home Type II or unspecified type diabetes mellitus without mention of complication, uncontrolled PAST SURGICAL HISTORY Procedure Laterality Date EXTENSIVE FINGER SURGERY Right FOOT/TOES SURGERY PROC UNLISTED Left hammer toes and bunions HEPATECTOMY RESCJ TOTAL RIGHT LOBECTOMY 10/08/2022 lap right hepatectomy for T2Nx HCC LAPAROSCOPIC CHOLECYSTECTOMY 10/08/2022 LIVER BIOPSY PALATOP CL PALATE ATTACHMENT PHARYNGEAL FLAP age 5 PAST SURGICAL HISTORY OF MRSA cyst removed from face PAST SURGICAL HISTORY OF Cyst removed from mouth SHOULDER SURGERY HX Left tendon repair Social History Tobacco Use Smoking status: Former Current packs/day: 0.00 Average packs/day: 1 pack/day for 40.0 years (40.0 ttl pk-yrs) Types: Cigarettes Start date: 1977 Quit date: 2018 Years since quittin.9 Passive exposure: Past Smokeless tobacco: Never Tobacco comments: 03/30/2018 Vaping Use Vaping status: Never Used Substance Use Topics Alcohol use: Yes Comment: occassional Drug use: Yes Types: Marijuana Comment: THC edibles, 3x a week FAMILY HISTORY Problem Relation Age of Onset Cancer Mother brain 76 y/o Heart disease Mother Hypertension Mother Diabetes Father Heart disease Father Hypertension Father Heart Attack Father Diabetes Sister other (atrial fib) Sister COPD Sister No Known Problems Sister other (polio) Maternal Grandfather Diabetes Paternal Grandmother No Known Problems Daughter I spent a total of 40 minutes on the date of service which included preparing to see the patient, [id number] patient care, completing clinical documentation, performing a medically appropriate examination, counseling and educating the patient/family/caregiver, ordering medications, tests, or procedures, independently interpreting results (not separately reported), communicating results to the patient/family/caregiver, and care coordination (not separately reported). Vimal rCandall MD, CPE [facility] Provided at: [place], [place] Scribe Attestation: This note was scribed by Esther Portillo on April 25, 2024 under the direction and supervision of Dr. Vimal Crandall. I attest that all of the information documented is correct to the best of my knowledge. Provider Attestation: I, Vimal Crandall MD, attest that all information documented by the above scribe is correct, and was supervised by me and under my direction. CC: Dr. Letha Moore [facility] Dr. Denis Stevens documented in this encounter [facility] 04-24-2024 Note [facility] 04-24-2024 Note [facility] 04-24-2024 Telephone encounter Note Called patient and he is scheduled for a hospital follow up for Tuesday04/25/24 at 1:20. CIARA Cabello [facility] 04-24-2024 Miscellaneous Notes Called patient and he is scheduled for a hospital follow up for Tuesday04/25/24 at 1:20. CIARA Cabello Clerical: Pt needs to see Emilia tomorrow or . Please call pt or pt's spouse w/ the appointment. Thanks! Arcelia Thomas RN Tomorrow or please Pt to be discharged home from [place] today. Venclexta has been on hold while at [facility]. When would you like to see him for follow up? Arcelia Thomas RN FYI: Pt was transferred from [facility] to [facility]. Arcelia Thomas RN Records scanned. Per Dr Crandall, he gave orders to [facility] PA after hours yesterday. Update: Call placed to [facility] Med Surg. Spoke w/ Chika, pt's bedside nurse. Per nurse, pt is stable and waiting on a bed at [facility]. Afebrile this morning. Receiving Zosyn and Gentamicin IV. Today's WBC 2.4. ANC 1. Nurse has no record of pt receiving Neupogen. Brigette: Please scan pt's [facility] records. Thanks! Arcelia Thomas RN Call placed to [facility] ER. ER nurse not available at this time. Message requesting call back left w/ Marjorie executive steward. Arcelia Thomas RN Shoot! Please make sure they give him neupogen 480 mcg SQ daily and stop his venetoclax. He'll need broad spectrum antibiotics with pseudomonal coverage. FYI: Pt reports fever of 102. C/o shaking chills. No relief w/ Tylenol. SOB w/ exertion. Yesterday's WBC 1.11. ANC 0.21. Advised pt go to the ER for evaluation. Pt states he's attempted to call a few people for a ride, but has not heard back. Advised he call 911 if unable to get a ride. Pt verbalizes understanding and agrees. States he will be going to [facility] ER. Report phoned to Kevin [facility] RN. Yesterday's office note, labs, and med list faxed to [phone]. Arcelia Thomas RN documented in this encounter [facility] 04-24-2024 Telephone encounter Note Clerical: Pt needs to see Emilia tomorrow or . Please call pt or pt's spouse w/ the appointment. Thanks! Arcelia Thomas RN [facility] Work Phone: 04-24-2024 Telephone encounter Note Tomorrow or please [facility] 04-24-2024 Telephone encounter Note Pt to be discharged home from [place] today. Venclexta has been on hold while at [facility]. When would you like to see him for follow up? Arcelia Thomas RN [facility] 04-23-2024 Note [facility] 04-22-2024 Note [facility] 04-22-2024 Note [facility] 04-21-2024 Note [facility] 04-21-2024 Note [facility] 04-21-2024 Note HNO ID: [id number] Author: NOTE, INTERFACE, ? Service: ? Author Type: ? Type: Progress Notes Filed: 04/26/2024 16:02 Note Text: Epic Scheduled Downtime: 04/21/2024 1:00:00 AM to 04/21/2024 2:52:17 AM [facility] 04-20-2024 Telephone encounter Note FYI: Pt was transferred from [facility] to [facility]. Arcelia Thomas RN [facility] 04-20-2024 Note [facility] 04-18-2024 Telephone encounter Note Records scanned. [facility] 04-18-2024 Telephone encounter Note Per Dr Crandall, he gave orders to [facility] PA after hours yesterday. Update: Call placed to [facility] Med Surg. Spoke w/ Chika, pt's bedside nurse. Per nurse, pt is stable and waiting on a bed at [facility]. Afebrile this morning. Receiving Zosyn and Gentamicin IV. Today's WBC 2.4. ANC 1. Nurse has no record of pt receiving Neupogen. Brigette: Please scan pt's [facility] records. Thanks! Arcelia Thomas, ALEX [facility] 04-17-2024 Telephone encounter Note Received a call from [facility] for neutropenic fever. Has history of MM. Presented with diffuse body aches and fevers. Is on oral chemotherapy. Initial temperature is 103.2, not responding to tylenol, very weak and endorsed malaise. Blood pressure is stable. Wbc count is 1.5 ANC 0.5, hgb 8.9. CT/PE and abd/pelvis pending. Given Zosyn, discussed with [facility] oncology who also recommended adding gentamicin. Pt is accepted to transfer for neutropenic fever. SIGNATURE: Benedict Aj MD PATIENT NAME: Jon Bauer DATE: 04/17/2024 TIME: 7:22 PM [facility] Work Phone: 04-17-2024 Miscellaneous Notes Received a call from [facility] for neutropenic fever. Has history of MM. Presented with diffuse body aches and fevers. Is on oral chemotherapy. Initial temperature is 103.2, not responding to tylenol, very weak and endorsed malaise. Blood pressure is stable. Wbc count is 1.5 ANC 0.5, hgb 8.9. CT/PE and abd/pelvis pending. Given Zosyn, discussed with [facility] oncology who also recommended adding gentamicin. Pt is accepted to transfer for neutropenic fever. SIGNATURE: Benedict Aj MD PATIENT NAME: Jon Bauer DATE: 04/17/2024 TIME: 7:22 PM documented in this encounter [facility] 04-17-2024 Telephone encounter Note Call placed to [facility] ER. ER nurse not available at this time. Message requesting call back left w/ larissa Amador. Arcelia Thomas, ALEX [facility] 04-17-2024 Telephone encounter Note Shoot! Please make sure they give him neupogen 480 mcg SQ daily and stop his venetoclax. He'll need broad spectrum antibiotics with pseudomonal coverage. [facility] 04-17-2024 Telephone encounter Note FYI: Pt reports fever of 102. C/o shaking chills. No relief w/ Tylenol. SOB w/ exertion. Yesterday's WBC 1.11. ANC 0.21. Advised pt go to the ER for evaluation. Pt states he's attempted to call a few people for a ride, but has not heard back. Advised he call 911 if unable to get a ride. Pt verbalizes understanding and agrees. States he will be going to [facility] ER. Report phoned to Kevin [facility] ALEX. Yesterday's office note, labs, and med list faxed to [phone]. Arcelia Thomas RN [facility] 04-16-2024 Instructions Vimal Crandall MD - 04/16/2024 10:29 AM EST Continue venclexta 100 mg daily--pancytopenia likely myeloma induced Start on Dapsone daily Labs on Tuesday and RTC 1 week labs same day. Continue allopurinol 100mg daily documented in this encounter [facility] 04-16-2024 History of Present illness Narrative Images from the original note were not included. NAME: Jon Bauer [facility] NO.: [id number] DATE OF SERVICE: April 16, 2024 (Raz) Some elements in this clinic note that are critical to medical decision making have been carefully reviewed and included from a prior clinic note dated: April 09, 2024 (Rishi) Additional Clinicians involved in Jon Bauer's care: Dr. Lomeli, Dr. Frankie Campbell DIAGNOSIS: Multiple myeloma followup ASSESSMENT: This is a 73 year old man diagnosed with an IgG lambda monoclonal gammopathy in 2019 and was then noted to have rising M-spike and PET scan documented a sternal lesion. 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 ISS and R-ISS stage II disease. He had a partial response to induction therapy and has recovered following Autologous stem cell infusion. Up to date on post transplant vaccinations. Mild thrombocytopenia - Stable for now. Additional medical issues include: - Immunodeficiency following HDSCT and patient will continue Acyclovir and post-transplant immunizations per Infectious Disease protocol. - Renal failure is improving and we will continue monitoring. - Neuropathy is stable. - Diabetes mellitus managed by PCP is elevated from steroids. - Hepatocellular carcinoma discovered August 2022, resected October 2022. Initial M-Protein is 3.31 prior to Induction M-spike is 0.34 as of 06/09/2022 10/08/2022 - Resection of Liver mass right lobe [id number] HCC, 3 cm, G2, + LVI. Will undergo serial observation. No current adjuvant therapy recommended. No recurrence on scans February 2023. MRI liver 01/02/2024 no recurrence. Continued to have rising M-spike - repeat bone marrow biopsy shows recurrent myeloma 5 - 9%. Would consider adding Daratumumab but given patient's recurring MRSA skin infections, will hold on Daratumumab and knowing his original FISH showed t(11;14), will use venetoclax + low dose dex and consider adding proteosome inhibitor with it after initial ramp up. Started venclexta 01/04/2024, however held multiple times for neutropenia and MRSA infections. Now with worsening pancytopenia likely myeloma related. 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 Stevens. 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 MRSA infections - Improved after doxycycline, followed by dermatology. PLAN: Continue venclexta 100 mg daily--pancytopenia likely myeloma induced Start on Dapsone daily - patient is neutropenic due to disease - cannot use floroquinolones due to contraindication of aortic aneurysm. Labs on Tuesday and RTC 1 week labs same day. Continue allopurinol 100mg daily HPI: CASE HISTORY: Reverse Chronological Order 04/02/2024 - ER visit with neutropenic fever, UTI found 03/26/2024 - Neutropenic again and Venclexta held, neupogen x 4 given 03/19/2024 - Venclexta 100 mg restarted after neutropenia resolved 03/12/2024 - Venclexta held due to neutropenia and ongoing staph infection of skin, given neupogen x 4 doses 02/13/2024 - resumed Venclexta 100 mg daily, however could not increase dose due to GI upset while on antibiotic for Staph infection 01/04/2024-Current - Venclexta 400mg daily - on hold 01/19-02/12 for neutropenia and knee surgery 01/02/2024 - MRI Liver: Cirrhotic liver morphology. A spontaneous splenorenal shunt is present and mild splenomegaly up to 14.2 cm are noted, compatible with portal hypertension. The portal veins are patent. There is no abdominal ascites. Table postsurgical changes from right posterior hepatectomy. No suspicious appearing liver mass identified. A 7 mm T2 hyperintense focus at the dome of the right hepatic lobe is unchanged from September 2022 and favored to represent a hemangioma. Stable-appearing Bosniak type I and type II cysts in both kidneys. Colonic diverticulosis. 10/06/2023 - BMBx: A-C. Bone marrow, aspirate smears, core biopsy, and clot section: - Plasma cell neoplasm, lambda monotypic (5-9% of total marrow cellularity). - Cellular bone marrow (40%) with trilineage hematopoiesis. - Stainable iron present. Comment: The patient is a 73-year-old male with IgG lambda plasma cell neoplasm, originally diagnosed in 2019, for which she had was received therapy as well as hepatocellular carcinoma, status post resection, presenting for restaging in the setting of increasing M protein concentration. Overall, the findings are diagnostic of recurrent/persistent plasma cell neoplasm, lambda monotypic. There is no immunophenotypic evidence of metastatic hepatocellular carcinoma. Subclassification of plasma cell neoplasms requires correlation with clinical, laboratory, and radiographic findings, as well as the pending cytogenetic and molecular genetic results. D. Peripheral blood smear: - Absolute neutropenia. - Normocytic anemia. - Thrombocytopenia 09/19/2023 - MRI Liver: No evidence of suspicious enhancing hepatic mass. Diffuse hepatic fatty infiltration. Mildly complex right renal cyst stable in size since 05/24/23 but demonstrates new thin septal enhancement (Bosniak IIF). Consider attention at interval follow-up. 05/24/2023 - MRI Liver: Postsurgical change as described. No LR-5/OPTN Class 5 lesions. 03/10/2023 - US Kidney Bladder: 1.7 cm RIGHT renal lesion is at least a partially complex cystic lesion but may have a solid peripheral component. Renal neoplasm is not excluded. 02/10/2023 - CT liver with IV contrast: Since 10/01/2022, interval partial right hepatectomy. No findings to suggest residual or recurrent disease. A 1.1 cm hypodensity within the right renal upper pole is indeterminate 11/24/2022-12/30/2023 - Rev maintenance 10/08/2022 - Resection of Liver mass right lobe [id number] HCC, 3 cm, G2, + LVI 06/28/2022 - Held Revlimid due to recurring infections. 07/30/2021 - Resumed Rev at 5mg daily due to thrombocytopenia 07/02/2021 - M-spike 0.36 12/26/2020 - Rx for Maintenance Rev 10mg daily 12/16/2020 - Hospitalization for SBO with intractable nausea 09/19/2020 - HDCT Auto transplant (D0) 08/24/2020 - Pretransplant testing revealed a 24-hour urine with 0.02 gm M spike. Serum M protein was 0.61, serum kappa light chains 15.3, serum lambda light chain 17.0, serum kappa/lambda ratio 0.90 (normal 0.26-1.65) 08/19/2020 - Bone marrow examination 40% cellular with less than 5% plasma cells and normal cytogenetics 02/18/2020-08/25/2020 - RVD 02/01/2020 - PET/CT: No FDG avid neoplastic process in the neck, chest, or A/P. EXTREMITIES/SKELETON: 1.2 cm mildly FDG-avid lytic lesion in the sternum with SUV max of 2.7, may represent a site of active myeloma. No FDG avid destructive osseous lesions elsewhere. Specifically, no hypermetabolic lesions in humeral heads or femurs. 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 06/08/2019 - Bone Survey: Lytic lesions involving bilateral humeral heads and distal right femur Updated Visit, April 16, 2024: Jon returns with Leisa - he has been getting out and is active, but runs out of breath fairly quickly. His Hgb and platelets are stable and improved respectively. Remains neutropenic. Will place on prophylaxis. Continue twice weekly lab checks. Updated Visit, April 09, 2024: Jon returns for follow-up. Last week we sent him to the ER for neutropenic fevers. In the ER, he was given cefipime and discharged after initial work up was negative. However, on April 04, his urine culture showed Enterococcus faecalis. He was started on macrobid 100 mg bid on 04/04 by [facility] pharmacy. They told him to take 7 days but only gave him 10 pills. Overall he is feeling better. No additional fevers. Updated Visit, April 02, 2024: Jon Bauer returns for scheduled follow-up. He received 2 units of PRBCs on 03/27/2024. He developed restless legs during the infusion thought to be caused from the Benadryl. He was given oral Valium. He received Neupogen 03/26/2024 through 03/29/2024. At his last visit the venetoclax was put on hold. Over the weekend he developed a fever >102. This morning he had a fever of 100.2 before taking Tylenol. He developed severe chills and shakes. He was so weak that he had to crawl from the couch to the bathroom. He had no dizziness. He has a slight cough. He has no abnormal bleeding. He continues to bruise. He had both nausea and vomiting. He had bone pain after the Neupogen which has since resolved. Today he states that he is feeling terrible.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 tablet by mouth four times a day as needed for diarrhea for up to 30 days. BASAGLAR KWIKPEN U-100 INSULIN 100 unit/mL (3 mL) Inject 30 Units subcutaneously every morning. (Patient taking differently: Inject 50 Units subcutaneously every morning.) gabapentin (NEURONTIN) 100 mg capsule Take 1 capsule by mouth daily at bedtime for 30 days. (Patient taking differently: Take 100 mg by mouth three times a day.) LABORATORY VALUES: WBC (k/uL) Date Value 04/16/2024 1.11 (L) RBC (m/uL) Date Value 04/16/2024 2.49 (L) Hemoglobin (g/dL) Date Value 04/16/2024 8.3 (L) Hematocrit (%) Date Value 04/16/2024 25.1 (L) MCV (fL) Date Value 04/16/2024 100.8 (H) MCH (pg) Date Value 04/16/2024 33.3 MCHC (g/dL) Date Value 04/16/2024 33.1 RDW-CV (%) Date Value 04/16/2024 16.9 (H) Platelet Count (k/uL) Date Value 04/16/2024 78 (L) MPV (fL) Date Value 04/16/2024 9.2 Glucose (mg/dL) Date Value 04/16/2024 386 (H) BUN (mg/dL) Date Value 04/16/2024 24 Creatinine (mg/dL) Date Value 04/16/2024 1.11 Sodium (mmol/L) Date Value 04/16/2024 135 (L) Potassium (mmol/L) Date Value 04/16/2024 4.3 Chloride (mmol/L) Date Value 04/16/2024 104 CO2 (mmol/L) Date Value 04/16/2024 20 (L) Protein, Total (g/dL) Date Value 04/16/2024 6.8 Albumin (g/dL) Date Value 04/16/2024 3.7 (L) Calcium, Total (mg/dL) Date Value 04/16/2024 8.9 Alkaline Phosphatase (U/L) Date Value 04/16/2024 130 (H) Bilirubin, Total (mg/dL) Date Value 04/16/2024 0.6 AST (U/L) Date Value 04/16/2024 34 ALT (U/L) Date Value 04/16/2024 39 Cholesterol, Total (mg/dL) Date Value 03/19/2024 92 Triglyceride (mg/dL) Date Value 03/19/2024 225 (H) M-Protein Concentration Date Value 03/12/2024 1.12 g/dL 02/03/2024 0.89 g/dL 12/09/2023 0.76 g/dL 10/14/2023 0.70 g/dL 09/15/2023 0.75 g/dL 07/02/2021 0.36 gm/dL 06/04/2021 0.31 gm/dL 04/17/2021 0.35 gm/dL 02/26/2021 0.37 gm/dL 12/26/2020 0.62 gm/dL DIAGNOSIS: (C90.00) Multiple myeloma not having achieved remission (HCC) (primary encounter diagnosis) Plan: G-6-PD QUANTITATIVE, COMPLETE BLOOD COUNT AND DIFFERENTIAL (D70.3) Neutropenia associated with infection (HCC) Plan: G-6-PD QUANTITATIVE, COMPLETE BLOOD COUNT AND DIFFERENTIAL (D69.6) Thrombocytopenia (HCC) Plan: G-6-PD QUANTITATIVE, COMPLETE BLOOD COUNT AND DIFFERENTIAL (C22.0) Hepatocellular carcinoma (HCC) Plan: G-6-PD QUANTITATIVE, COMPLETE BLOOD COUNT AND DIFFERENTIAL PAST MEDICAL HISTORY Diagnosis Date Abdominal aortic aneurysm (HCC) Allergic rhinitis Biceps rupture, proximal 04/09/2014 Bicipital tenosynovitis 11/01/2013 Chronic pain COVID-19 06/11/2020 positive test 06/13/20 Depression 09/18/2020 Continue home dose of lexapro Elevated blood protein elevated MGUS Generalized anxiety disorder Glaucoma Hepatocellular carcinoma (HCC) Hypercholesteremia 09/17/2020 Hold Lipitor inpatient Hyperlipemia Hypertension Leukocytosis MRSA infection Multiple myeloma (HCC) 09/17/2020 6 Cycles RVD (February 2020 through August 2020) in a [place] Multiple myeloma not having achieved remission (HCC) 02/04/2020 Neuropathy 08/20/2020 Continue home Gabapentin Obesity Restless leg syndrome 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 Protocol(s): 3422 1C Preparative regimen: Melphalan Mobilization regimen: plerixafor & neupogen Stem cell source: apheresis CD34 cell dose (x10e6/kg): 4.05 Date of transplant: 09/19/20 Type 2 diabetes (HCC) 08/20/2020 Takes metformin, Lantus, victoza & Farxiga Sliding Scale inpatient & Lantus Plan: -Endo following, recs in dc instructions for home Type II or unspecified type diabetes mellitus without mention of complication, uncontrolled PAST SURGICAL HISTORY Procedure Laterality Date EXTENSIVE FINGER SURGERY Right FOOT/TOES SURGERY PROC UNLISTED Left hammer toes and bunions HEPATECTOMY RESCJ TOTAL RIGHT LOBECTOMY 10/08/2022 lap right hepatectomy for T2Nx HCC LAPAROSCOPIC CHOLECYSTECTOMY 10/08/2022 LIVER BIOPSY PALATOP CL PALATE ATTACHMENT PHARYNGEAL FLAP age 5 PAST SURGICAL HISTORY OF MRSA cyst removed from face PAST SURGICAL HISTORY OF Cyst removed from mouth SHOULDER SURGERY HX Left tendon repair Social History Tobacco Use Smoking status: Former Current packs/day: 0.00 Average packs/day: 1 pack/day for 40.0 years (40.0 ttl pk-yrs) Types: Cigarettes Start date: 1977 Quit date: 2017 Years since quittin.9 Passive exposure: Past Smokeless tobacco: Never Tobacco comments: 03/30/2018 Vaping Use Vaping status: Never Used Substance Use Topics Alcohol use: Yes Comment: occassional Drug use: Yes Types: Marijuana Comment: THC edibles, 3x a week FAMILY HISTORY Problem Relation Age of Onset Cancer Mother brain 76 y/o Heart disease Mother Hypertension Mother Diabetes Father Heart disease Father Hypertension Father Heart Attack Father Diabetes Sister other (atrial fib) Sister COPD Sister No Known Problems Sister other (polio) Maternal Grandfather Diabetes Paternal Grandmother No Known Problems Daughter I spent a total of 30 minutes on the date of service which included preparing to see the patient, [id number] patient care, completing clinical documentation, performing a medically appropriate examination, counseling and educating the patient/family/caregiver, ordering medications, tests, or procedures, independently interpreting results (not separately reported), communicating results to the patient/family/caregiver, and care coordination (not separately reported). Vimal Crandall MD, CPE Hematology and Oncology Services Provided at: [place], [place] CC: Dr. Letha Michael Dr. [facility] Dr. Denis Stevens documented in this encounter [facility] 04-09-2024 History of Present illness Narrative Images from the original note were not included. NAME: Jon Bauer [facility] NO.: [id number] DATE OF SERVICE: April 09, 2024 (Rishi) Some elements in this clinic note that are critical to medical decision making have been carefully reviewed and included from a prior clinic note dated: April 02, 2024 (Haroon) Additional Clinicians involved in Jon Bauer's care: Dr. Lomeli, Dr. Frankie Campbell DIAGNOSIS: Multiple myeloma followup ASSESSMENT: This is a 73 year old man diagnosed with an IgG lambda monoclonal gammopathy in 2019 and was then noted to have rising M-spike and PET scan documented a sternal lesion. 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 ISS and R-ISS stage II disease. He had a partial response to induction therapy and has recovered following Autologous stem cell infusion. Up to date on post transplant vaccinations. Mild thrombocytopenia - Stable for now. Additional medical issues include: - Immunodeficiency following HDSCT and patient will continue Acyclovir and post-transplant immunizations per Infectious Disease protocol. - Renal failure is improving and we will continue monitoring. - Neuropathy is stable. - Diabetes mellitus managed by PCP is elevated from steroids. - Hepatocellular carcinoma discovered August 2022, resected October 2022. Initial M-Protein is 3.31 prior to Induction M-spike is 0.34 as of 06/09/2022 10/08/2022 - Resection of Liver mass right lobe [id number] HCC, 3 cm, G2, + LVI. Will undergo serial observation. No current adjuvant therapy recommended. No recurrence on scans February 2023. MRI liver 01/02/2024 no recurrence. Continued to have rising M-spike - repeat bone marrow biopsy shows recurrent myeloma 5 - 9%. Would consider adding Daratumumab but given patient's recurring MRSA skin infections, will hold on Daratumumab and knowing his original FISH showed t(11;14), will use venetoclax + low dose dex and consider adding proteosome inhibitor with it after initial ramp up. Started venclexta 01/04/2024, however held multiple times for neutropenia and MRSA infections. Now with worsening pancytopenia likely myeloma related. 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 Stevens. 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 MRSA infections - Improved after doxycycline, followed by dermatology. PLAN: After discussion with Dr. Youssef, will resume venclexta 100 mg daily--pancytopenia likely myeloma induced Will prescribe 2 additional days of Macrobid for patient's UTI Return in 1 week to monitor counts closely as he will likely require blood product support 4. Continue allopurinol 100mg daily HPI: CASE HISTORY: Reverse Chronological Order 04/02/2024 - ER visit with neutropenic fever, UTI found 05/26/2023 - neutropenic again and Venclexta held, neupogen x 4 given 03/19/2024 - Venclexta 100 mg restarted after neutropenia resolved 03/12/2024 - Venclexta held due to neutropenia and ongoing staph infection of skin, given neupogen x 4 doses 02/13/2024 - resumed Venclexta 100 mg daily, however could not increase dose due to GI upset while on antibiotic for Staph infection 01/04/2024-Current - Venclexta 400mg daily - on hold 01/19-02/12 for neutropenia and knee surgery 01/02/2024 - MRI Liver: Cirrhotic liver morphology. A spontaneous splenorenal shunt is present and mild splenomegaly up to 14.2 cm are noted, compatible with portal hypertension. The portal veins are patent. There is no abdominal ascites. Table postsurgical changes from right posterior hepatectomy. No suspicious appearing liver mass identified. A 7 mm T2 hyperintense focus at the dome of the right hepatic lobe is unchanged from September 2022 and favored to represent a hemangioma. Stable-appearing Bosniak type I and type II cysts in both kidneys. Colonic diverticulosis. 10/06/2023 - BMBx: A-C. Bone marrow, aspirate smears, core biopsy, and clot section: - Plasma cell neoplasm, lambda monotypic (5-9% of total marrow cellularity). - Cellular bone marrow (40%) with trilineage hematopoiesis. - Stainable iron present. Comment: The patient is a 73-year-old male with IgG lambda plasma cell neoplasm, originally diagnosed in 2019, for which she had was received therapy as well as hepatocellular carcinoma, status post resection, presenting for restaging in the setting of increasing M protein concentration. Overall, the findings are diagnostic of recurrent/persistent plasma cell neoplasm, lambda monotypic. There is no immunophenotypic evidence of metastatic hepatocellular carcinoma. Subclassification of plasma cell neoplasms requires correlation with clinical, laboratory, and radiographic findings, as well as the pending cytogenetic and molecular genetic results. D. Peripheral blood smear: - Absolute neutropenia. - Normocytic anemia. - Thrombocytopenia 09/19/2023 - MRI Liver: No evidence of suspicious enhancing hepatic mass. Diffuse hepatic fatty infiltration. Mildly complex right renal cyst stable in size since 05/24/23 but demonstrates new thin septal enhancement (Bosniak IIF). Consider attention at interval follow-up. 05/24/2023 - MRI Liver: Postsurgical change as described. No LR-5/OPTN Class 5 lesions. 03/10/2023 - US Kidney Bladder: 1.7 cm RIGHT renal lesion is at least a partially complex cystic lesion but may have a solid peripheral component. Renal neoplasm is not excluded. 02/10/2023 - CT liver with IV contrast: Since 10/01/2022, interval partial right hepatectomy. No findings to suggest residual or recurrent disease. A 1.1 cm hypodensity within the right renal upper pole is indeterminate 11/24/2022-12/30/2023 - Rev maintenance 10/08/2022 - Resection of Liver mass right lobe [id number] HCC, 3 cm, G2, + LVI 06/28/2022 - Held Revlimid due to recurring infections. 07/30/2021 - Resumed Rev at 5mg daily due to thrombocytopenia 07/02/2021 - M-spike 0.36 12/26/2020 - Rx for Maintenance Rev 10mg daily 12/16/2020 - Hospitalization for SBO with intractable nausea 09/19/2020 - HDCT Auto transplant (D0) 08/24/2020 - Pretransplant testing revealed a 24-hour urine with 0.02 gm M spike. Serum M protein was 0.61, serum kappa light chains 15.3, serum lambda light chain 17.0, serum kappa/lambda ratio 0.90 (normal 0.26-1.65) 08/19/2020 - Bone marrow examination 40% cellular with less than 5% plasma cells and normal cytogenetics 02/18/2020-08/25/2020 - RVD 02/01/2020 - PET/CT: No FDG avid neoplastic process in the neck, chest, or A/P. EXTREMITIES/SKELETON: 1.2 cm mildly FDG-avid lytic lesion in the sternum with SUV max of 2.7, may represent a site of active myeloma. No FDG avid destructive osseous lesions elsewhere. Specifically, no hypermetabolic lesions in humeral heads or femurs. 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 06/08/2019 - Bone Survey: Lytic lesions involving bilateral humeral heads and distal right femur Updated Visit, April 09, 2024: Jon returns for follow-up. Last week we sent him to the ER for neutropenic fevers. In the ER, he was given cefipime and discharged after initial work up was negative. However, on April 04, his urine culture showed Enterococcus faecalis. He was started on macrobid 100 mg bid on 04/04 by [facility] pharmacy. They told him to take 7 days but only gave him 10 pills. Overall he is feeling better. No additional fevers. Updated Visit, April 02, 2024: Jon Bauer returns for scheduled follow-up. He received 2 units of PRBCs on 03/27/2024. He developed restless legs during the infusion thought to be caused from the Benadryl. He was given oral Valium. He received Neupogen 03/26/2024 through 03/29/2024. At his last visit the venetoclax was put on hold. Over the weekend he developed a fever >102. This morning he had a fever of 100.2 before taking Tylenol. He developed severe chills and shakes. He was so weak that he had to crawl from the couch to the bathroom. He had no dizziness. He has a slight cough. He has no abnormal bleeding. He continues to bruise. He had both nausea and vomiting. He had bone pain after the Neupogen which has since resolved. Today he states that he is feeling terrible. Updated Visit, March 26, 2024: Jon Bauer returns for scheduled follow-up. He remains off of the venetoclax. He complains of increasing fatigue. He developed significant bone pain from the Filgrastim. He denies any fevers, chills, night sweats or signs/symptoms of infection. He has had intermittent headaches. He denies bleeding and abnormal bruising. He denies any cough, shortness of breath or other pulmonary complaints. He denies dizziness and lightheadedness. No leg swelling. No nausea, vomiting or diarrhea. Updated Visit, March 19, 2024: Venclexta is on hold. He did receive neupogen x 4 doses, however had significant bone pain from it. He also had diarrhea and nausea. Was having shortness of breath as well, but that resolved. His staph infection on his neck has resolved after finishing his antibiotic. No bleeding or bruising. No new complaints. Updated Visit, March 12, 2024: Jon returns for a follow up. He is on Flomax per urology - working well for him. He was seen by [facility] for a staph infection on his neck - treating with antibiotics and warm compresses. He did not increase Venclexta as it caused GI upset in combination with his antibiotics. He is neutropenic - WBC: 2.11 - will start Neupogen 480 mcg today x 4 daily doses. Have him hold Venclexta and return in 1 week. Updated Visit, February 20, 2024: Jon returns today for a follow up. His recovering well from knee surgery. He resumed Venclexta 100mg on 02/12 as scheduled. WBC has increased to 3.45, Hgb has decreased slightly - chemistries stable overall. Will increase Venclexta to 200mg in 1 week. Urology appointment rescheduled for 03/06. Updated Visit, February 03, 2024: Jon returns by himself for a follow up. He had 3 days of diarrhea earlier this week and is experiencing increasing knee/leg pain. He continues holding Venclexta to prepare for his arthroscopic knee surgery with Dr. Lorenzana on 02/05. He will resume treatment 1 week after his procedure. Updated Visit, January 20, 2024: Jon returns with Leisa for a follow up. Last night, he developed worsening abdominal pain, gas, and diarrhea. He admits it almost sent him to the ER. He is neutropenic today - will hold Venclexta. I will reduce his dose when he resumes after count recovery. Kidney function is stable, he endorses doing well with hydration. He also endorses fatigue, holding treatment will likely help fatigue improve. Updated Visit, January 10, 2024: Virtual Visit Jon presents today for a virtual visit. He discontinued Revlimid as instructed and started on Venclexta 100mg daily on 01/03. He endorses diarrhea since starting new treatment, although it is tolerable with use of imodium. Updated Visit, December 09, 2023: Jon returns today. After discussion with Dr. Osvaldo Moreira, it was recommended we change his treatment. He will continue Revlimid for now until a treatment plan is finalized. Diarrhea has improved with use of kefir. He endorses leg pain and fatigue with the hot weather. He has yet to see urology, appointment moved to January. Will repeat MRI liver - needs Rx for Xanax as he is claustrophobic. Updated Visit, October 14, 2023: Jon returns today for a follow up. He is joined by his daughter, Lynn, and granddaughters. I reviewed his BMBx, confirmed relapse of multiple myeloma. Will discuss addition of Peace to Revlimid. He has been taking antibiotics again, is dealing with allergies and diarrhea. We discussed the importance of healthy gut bacteria through his diet. Updated Visit, September 15, 2023: Jon returns today and has another episode of facial MRSA abscess. This is healing but he had thrush and diarrhea and was pretty misearble. Held rev for a little bit and has resumed. M-spike continues to rise, will re-stage soon and plan for change in therapy. Updated Visit, August 18, 2023: Jon returns today for a follow up. He had surgery for trigger finger - pain is much better but he notes some stiffness. He has a follow up scheduled to determine his need for PT. He has restarted Revlimid. Platelets are 108 today. M-spike remains elevated. He has had problems regarding urination since his liver surgery in 10/2022. 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 Updated Visit, July 13, 2023: Jon returns today. RBC still low, 3.82 today. He is having surgery for trigger finger with Dr. Lorenzana, so he will hold Revlimid for 2 weeks - started hold on 07/11. Decrease dose of Revlimid was working, but needs more time off - will reassess 3 weeks after resuming. He saw his sign wirer yesterday, who adjusted his insulin. Updated Visit, June 15, 2023: Legs stronger, moving better and is walking more regularly. Trigger finger in his left hand getting worse and will need it released. Decreased dose of rev is working well. Blood sugars improved. Updated Visit, May 18, 2023: Jon is doing well and platelets are improved with lower dose revlimid. Continues follow up for HCC and with urology for the complex renal cyst. Overall has continued improvement with blood sugars. Updated Visit, April 20, 2023: Patient seen urologists that informed him of a complex cyst. He is taking Revlimid every other day, improvements are seen in labs. He has been taking insulin and is managing it better, labs confirm this. He has been having nerve issues, including restless leg syndrome preventing him from sleeping. He also mentions diarrhea, he believes to be from Jardiance. Updated Visit, March 23, 2023: Jon returns today for a follow up and endorses feeling normal. He states he is trying to stay active but takes a day off to rest. Ultrasound shows a 1.7 cm RIGHT renal lesion, at least a partially complex cystic lesion and should follow up with a CT scan. He has a follow up with Urology on April 05. He states he is attending congregation on Tuesday' but doesn't go often because he doesn't want to get sick being around a crowd. We discussed getting the flu vaccination and a COVID booster. Has been holding Revlimid because of cytopenias as directed and CBC pending today, Donn olivier is pending. We reviewed labs, blood count has been low the last few weeks. I will have to call when the results come back. Updated Visit, February 16, 2023: Had MRSA again - has been on Bactrim for 2 weeks WBC is decreased. Platelets are decreased but stable. Reviewed scans with him. Updated Visit, January 19, 2023: Couldn't tolerate MR even with sedation. CT ordered. Continue current Rev as M-spike rise is slowing down Updated Visit, December 22, 2022: Doing much better with blood sugars. Leisa is preparing for the fair. Will adjust maintenance based on results of SPIEP. Updated Visit, November 24, 2022: Saw Dr. Almanza in follow up - will have next MRI with sedation in January for follow-up of hepatocellular carcinoma Eye infection and is on Keflex drops. Blood sugars still running high M-spike now 0.48 - will resume revlimid. Continues with restless leg and can't sleep at night. - is taking THC Gummies. Updated Visit, October 20, 2022: Jon is 72 and returns with Leisa - doing well. Will recheck myeloma labs Reviewed resection pathology and anticipate serial surveillance. Recovering with multiple bruises post-op and has a drain. Updated Visit, September 30, 2022: Couldn't do MRI yesterday because of claustrophobia. Will continue holding Rev until after resection with Dr. Almanza. Updated Visit, September 01, 2022: Jon returns with Leisa. He was found to have a liver mass. Discussed options for workup and will need to continue monitoring for progressive myeloma. Updated Visit, August 04, 2022: Jon Bauer returns for follow-up. He remains off of Revlimid and due to ongoing infection with MRSA to his face. Since his last visit he was at the [facility] emergency room with left-sided upper abdominal pain with several episodes of diarrhea and a cough with productive green phlegm and chest pain. He had a CT of the chest, abdomen and pelvis. He was treated with IV fluids, morphine and Zofran. He was discharged home on dicyclomine 20 mg every 8 hours. He is feeling better today. He denies fevers and chills. No bleeding or abnormal bruising. He remains off of the Revlimid. He has completed a course of antibiotics for MRSA. He is scheduled to see his PCP tomorrow, Dr. Key. He is scheduled for surgery with Dr. Sir Cazares on August 24, 2022. Updated Visit, July 07, 2022: Saw Dr. Michael 1 week ago and will be seeing plastic surgery - Dr. Moore - currently on Doxycycline. Diarrhea improved. Blood sugars still very high - reviewed and educated regarding Sister 2 weeks ago in [facility]. [facility] and had wound cleaned out. Updated Visit, June 09, 2022: Continues to have ID issues now has diarrhea following two rounds of antibiotic for sinus infections and also additional for MRSA of his left face. M-spike stable. IgG is > 700. Blood sugars are > 500 with adjustments in insulin. Updated Visit, May 12, 2022: Jon Bauer returns for scheduled follow-up. He remains on Revlimid 5 mg daily which he is tolerating well. He denies any significant side effects from the Revlimid. He states that he did not take the Revlimid for 3 to 4 days this month after starting the antibiotic because the combination was rough on his stomach. He recently developed a head cold and chest congestion. He was diagnosed with an ear infection by his PCP. He states that he has been feeling under the weather! . He was given a course of amoxicillin and then developed diarrhea. His symptoms did not improve and was recently started on another course of antibiotics and prednisone. He denies fevers and chills. He denies bleeding and abnormal bruising. No new unusual pain. Updated Visit, April 14, 2022: Labs stable. 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 No other major issues. Chronic limitations to duration of exercise. 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 Counts are stable. Updated Visit, February 17, 2022: Jon Bauer returns for follow-up and labs. He is still being treated for MRSA with Bactrim and a face wash. He has had oral thrush on and off for a couple of months. He remains on Revlimid 5 mg daily and is tolerating it well. He denies any significant side effects from the Revlimid. He denies fevers, chills, night sweats and signs/symptoms of infection. No bleeding or abnormal bruising. Overall he is doing well with no new complaints today. No new issues, problems or concerns. Updated Visit, January 18, 2022: Infection in cheek - (MRSA) is resolving currently on Bactrim DS for a 30 day course. Will resume Revlimid 5 mg and if platelets drop below 35k will decrease to 2.5 mg daily. Currently platelets have recovered to 78k nd will resume treatment. Now has a scab on his right forearm and is seeing dermatology. Looks like a superficial burn with skin sloughing 2 friends have recently - just sad about that. Updated Visit, January 01, 2022: Jon returns and is quite uncomfortable. His platelets still low and abscesses have recurred. Blood sugar is high - can't get in to see Dr. Michael - going to the ER Leisa won several prizes from baking at the fair and granddaughter won showing her pig. Updated Visit, December 18, 2021: Jon returns and his facial infection finally cleared up but required debridement and drainage. Had Dalvance IV Thrush resolved Platelets still low Will hold Revlimid for 2 more weeks - still thromboctopenic - will see if clearance from Dalvance will allow him to resolve. Updated Visit, November 20, 2021: Returns today and retells his saga with sinus infection from last visit: Augmentin didn't help - required tessalon, prednisone and levaquin to get things improved. 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 Otherwise doing well from myeloma standpoint. Updated Visit, October 23, 2021: Jon returns alone today and remains on Rev maintenance. Sinus fullness and productive cough will treat empirically. Otherwise continues to do well. Updated Visit, September 25, 2021: Jon Bauer returns for follow-up. He remains on Revlimid 5 mg daily and is tolerating it well. He denies any side effects from the Revlimid. He started his current cycle on September 08. He denies any unusual pain. He denies fevers, chills, night sweats and signs/symptoms of infection. He denies any abnormal bleeding or abnormal bruising. His skin is thin as he ages and tends to bleed easier due to that. His diarrhea is much improved. He remains on Metamucil. He offers no new complaints today. No new issues, problems or concerns. Updated Visit, August 28, 2021: Diarrhea associated with Metformin now improved significantly. His counts are fairly stable but platelets are a little low. Will continue treatment as is for now and consider holding the dose if he gets lower. Back on insulin for managing blood sugars. Updated Visit, July 30, 2021: Still has diarrhea biopsy results pending. Leisa is with him today. He is doing well overall. Will resume Revlimid at 5 mg daily. Platelets are at 100k. Updated Visit, July 16, 2021: Telephone only for 12 minutes Called Jon as requested and his counts were reviewed. His platelets are improving but still less than 100k. Unfortunately he still has daily diarrhea but is seeing Dr. Garay next week. We will plan to hold his Revilimid for a few weeks longer. Updated Visit, July 02, 2021: Platelets suppressed after having restarted revlimid 1 week ago - will ask him to stop. Still having diarrhea and is going to GI tomorrow M-spike continues to drop slowly. If unable to continue Rev, will change maintenance. Updated Visit, May 07, 2021: Will resume lexapro for depression. May be confusing ativan with lexapro No additional rash - Leisa is with him today. If it recurs, we can switch maintenance to Ixazomib or pomalidomide - defer to transplant team. Updated Visit, April 17, 2021: Walking better, neuropathy improving, fatigue resolving, appetite is improved. Only thing worse is restless legs in the evening. Getting his vaccination series. Labs stable. Rash is resolved. Updated Visit, January 28, 2021: Intermittent bowel issues but no significant problems. Both COVID-19 Vax Pfizer as of tomorrow Balance and activity levels are better - dizziness has resolved. recovereing from mild Upper respiratory viral infection Updated Visit, December 26, 2020: Jon returns today reporting a hospitalization for SBO with intractable nausea 12/16/2020. Managed conservatively and resolved. Proceed with vaccination schedule Start with COVID-19 vax. Occult Blood in stools - consider CT at next visit. Updated Visit, December 05, 2020: Occasional swelling in knees and ankles but is walking and getting more active. Still gets cold easily and has intermittent diarrhea but less than previous. Anemia is improved. Still has fatigue but is improving with continued activity. D100 s approximately 12/27/2020 and will need to start maintenance Revlimid beyond that time. He will need COVID Vax and others on schedule that he has. Updated Visit, November 13, 2020: Jon is 70 yo and underwent Autologous transplant. September 19, 2020 was day of Autologous transplant and is doing well. We will continue monitoring his response and will anticipate starting maintenance therapy at the appropriate time. He had recent resolution of GI symptoms due to a prolonged course of Cipro- which once identified was stopped and symptoms resolved. 08/24/2020 his pretransplant testing revealed a 24-hour urine with 0.02 gm M spike. His serum M protein was 0.61, serum kappa light chains 15.3, serum lambda light chain 17.0, serum kappa/lambda ratio 0.90 (normal 0.26-1.65), and his bone marrow examination from 08/19/2020 was 40% cellular with less than 5% plasma cells and normal cytogenetics. His pretransplant disease response was a OK. Transplant overview: Protocol(s): 3422 1C Preparative regimen: Melphalan Mobilization regimen: plerixafor & neupogen Stem cell source: apheresis CD34 cell dose (x10e6/kg): 4.05 Date of transplant: 09/19/2020 Updated Visit, August 11, 2020: Jon is 69 years old and returns to resume treatment with Velcade plus Revlimid just prior to getting autologous transplant. He has recovered from Covid and is much more active and feels quite a bit better. Fatigue is resolved and he had a great week last week. His counts have recovered and he is safe to proceed. Updated Visit, July 11, 2020: Jon is 69 yo and ended up getting COVID-19 and we held treatment. He has now recovered from the acute effects and has also normalized his kidney function. We will resume treatment next week. Still fatigued, didn't end up in the hospital at least. Updated Visit, June 04, 2020: Jon is 69 yo and returns for ongoing treatment of MM with RVD. He is having difficulty with tolerance and complains of persisting diarrhea - will stop revlimid (he's still taking 25mg). He saw Dr. Campbell for transplant and we will get a 24 hour urine IEP with the next assessment. We will have a break in treatment and then start Rev at a lower dose as previously discussed with him. Updated Visit, May 19, 2020: Feel better but has burning in his stomach which we will try mylanta rather than Pepto-bismol. He is due to see BMT tomorrow virtually and otherwise, with the resolution of his symptoms from last week, he will resume treamtent as scheduled. He has responsive disease on RVD. Updated Visit, May 12, 2020: Jon is 69 yo and is being treated from IgG Lambda multiple myeloma with initial M-spike of 3.3 gm and small lytic lesions in both humeral heads and distal right femur. PET CT noted a lesion on the sternum. He is due for cycle 4 but feels lousy with respect to energy and persisting nausea. He has mild sensory neuropathy as well and is struggling with the decadron to manage his sugars. Updated Visit, April 14, 2020: Jon is 69 years old and returns for treatment for his newly diagnosed multiple myeloma currently on RVD. 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 Bone marrow biopsy in December 2019 revealed findings consistent with smoldering myeloma but with small lytic lesions in both humeral heads as well as right distal femur and an additional lesion noted on the sternum by PET/CT, we elected to treat him with 8-10 cycles of RVD. I discussed consideration of pulmonary transplant with him at his last visit and I will plan on referring him following his third cycle of treatment. He reports that he had issues with nausea and diarrhea, as well gas. Everything is settled down, but he is anxious about symptoms going forward. Updated visit, March 17, 2020: Jon is 69 years old and returns with his Leisa for treatment of newly diagnosed multiple myeloma for which he has been started on RVD. He was followed for a monoclonal gammopathy IgG lambda of 3.3 g since November 2018. Biopsy in December 2019 demonstrated what appeared to be smoldering myeloma but he had small lytic lesions in both humeral heads as well as distal right femur. PET/CT showed an additional lesion in the sternum but did not find the femoral or humeral head lesions based on these findings we electively started him on initial treatment. I anticipate 8-10 cycles of RVD and he returns today for his second cycle. He tolerated his first cycle well however he has some unpredictable bouts of diarrhea small rash on his neck that is resolving as well as candidal mucositis that resolved with Diflucan. Overall he is tolerating treatment very well, has no neuropathy and is willing to proceed with additional treatment as planned. Updated Visit, February 08, 2020: Jon Bauer is a 69 year old male seen for a monoclonal gammopathy found on routine labs. The patient was found to have a monoclonal gammopathy of (IgG) 3.3 gm with lambda specificity noted in Dr. BALDWIN's notes from 11/29/2018. 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 A PET/CT wich showed only a sternal lesion with uptake FDG with SUV 2.7 and no uptake in either femur or humeral heads. Findings are consistent with multiple myeloma and we will proceed with induction therapy. I sat with him and his Leisa and extensively reviewed the treatmtent plan as well as the risks and benefits. I anticipate 8-10 cycles of induction. I will discuss HCT with them at their next visit so as to not overwhelm them. He has mild neuropathy from poorly controlled diabetes and coronary artery calcification but otherwise has a well preserved performance status and could be appropriate despite being older than 65. PATHOLOGIC PROFILE/MOLECULAR DATA: 12/17/2019 - bone marrow biopsy and aspirate: Bone marrow, aspirate smear and core biopsy, with clot section and peripheral blood: -Involved by plasma cell neoplasm with 5 to 10% plasma cells. -Normocellular bone marrow 20% with trilineage hematopoiesis. -Stainable iron present. -Comment-the patient has a history of IgG lambda monoclonal protein. The bone marrow shows involvement by a plasma cell neoplasm with 3% plasma cells in the aspirate smear and 5 to 10% plasma cells by immunohistochemistry. Final classification of plasma cell neoplasms require correlation with additional clinical laboratory and/or radiologic findings. FISH for plasma cell neoplasm: Findings demonstrated plasma cell population with trisomy 9, trisomy 15 and gain of genetic material at the CCN D1 locus or trisomy 11. These findings are consistent with the presence of a plasma cell neoplasm and represent standard risk disease. Cytogenetics: Normal male karyotype 46, XY 20 REVIEW OF SYSTEMS Per HPI and otherwise negative by full review of organ systems. ECOG PERFORMANCE STATUS: 0 PHYSICAL EXAMINATION: Vitals: BP 133/74 Pulse 82 Temp (Src) 97 (Temporal) Resp 18 Wt 251 lb 8.7 oz (114.1kg) SpO2 97% Body surface area is 2.39 meters squared. General: Alert and oriented, no distress, pleasant and cooperative. Heart: Regular, normal S1 and S2, no murmurs, rubs, or gallops. Lungs: Clear to auscultation bilaterally. Abdomen: Benign. Extremities: Feet/ankles without edema, posterior tibial pulses full and symmetrical. ALLERGIES: ALLERGIES Allergen Reactions Oseltamivir Vomiting, Other: See Comments got really sick // Tamiflu Amoxicillin-[place]* Diarrhea Sulfamethoxazole-Tr* GI Upset MEDICATIONS: nitrofurantoin monohydrate and macrocrystal (MACROBID) 100 mg capsule Take 1 capsule by mouth two times a day for 7 days. allopurinol (ZYLOPRIM) 100 mg tablet Take 1 tablet by mouth once daily. oxyCODONE-acetaminophen (PERCOCET) 5-325 mg tablet Take 1 tablet by mouth every 8 hours as needed for pain for up to 30 days. tamsulosin (FLOMAX) 0.4 mg Take 1 capsule by mouth daily at bedtime. venetoclax (VENCLEXTA) 100 mg tablet Take 4 tablets (400 mg) by mouth once daily. diphenoxylate-atropine (LOMOTIL) 2.5-0.025 mg per tablet Take 1 tablet by mouth four times a day as needed for diarrhea for up to 30 days. Blood-Glucose Sensor ([place] G7 SENSOR) liana as directed. MELATONIN ORAL Take by mouth at bedtime as needed. multivit-minerals/folic acid (CENTRUM MULTIGUMMIES ORAL) Take by mouth once daily. L gasseri/B bifidum/B longum (PROBIOTIC COLON CARE ORAL) Take by mouth once daily as needed. BASAGLAR KWIKPEN U-100 INSULIN 100 unit/mL (3 mL) Inject 30 Units subcutaneously every morning. (Patient taking differently: Inject 50 Units subcutaneously every morning.) insulin aspart U-100 (NOVOLOG FLEXPEN U-100 INSULIN) 100 unit/mL (3 mL) If Blood Glucose (mg/dL) is <110 Give 0 units 111-150 Give 0 units 151-200 Give 2 unit 201-250 Give 4 units 251-300 Give 6 units 301-350 Give 8 units 351-400 Give 10 units >400 Call physician. Insulin [place], Disposable, (BD ULTRA-FINE NAY PEN NEEDLE) 32 gauge x 5/32 Use as directed up to four times daily gabapentin (NEURONTIN) 100 mg capsule Take 1 capsule by mouth daily at bedtime for 30 days. (Patient taking differently: Take 100 mg by mouth three times a day.) rOPINIRole (REQUIP) 2 mg tablet Take 1 tablet by mouth daily at bedtime. Cholecalciferol, Vitamin D3, (VITAMIN D) 25 mcg (1,000 unit) cap Take 2 capsules by mouth once daily. atorvastatin (LIPITOR) 10 mg tablet Take 10 mg by mouth once daily. cetirizine (ZYRTEC) 10 mg tablet Take 10 mg by mouth once daily. LABORATORY VALUES: WBC (k/uL) Date Value 04/09/2024 1.50 (L) RBC (m/uL) Date Value 04/09/2024 2.57 (L) Hemoglobin (g/dL) Date Value 04/09/2024 8.4 (L) Hematocrit (%) Date Value 04/09/2024 24.9 (L) MCV (fL) Date Value 04/09/2024 96.9 MCH (pg) Date Value 04/09/2024 32.7 MCHC (g/dL) Date Value 04/09/2024 33.7 RDW-CV (%) Date Value 04/09/2024 15.2 (H) Platelet Count (k/uL) Date Value 04/09/2024 53 (L) MPV (fL) Date Value 04/09/2024 11.0 Glucose (mg/dL) Date Value 04/02/2024 144 (H) BUN (mg/dL) Date Value 04/02/2024 27 (H) Creatinine (mg/dL) Date Value 04/02/2024 1.22 Sodium (mmol/L) Date Value 04/02/2024 135 (L) Potassium (mmol/L) Date Value 04/02/2024 4.2 Chloride (mmol/L) Date Value 04/02/2024 101 CO2 (mmol/L) Date Value 04/02/2024 22 Protein, Total (g/dL) Date Value 04/02/2024 7.7 Albumin (g/dL) Date Value 04/02/2024 3.8 (L) Calcium, Total (mg/dL) Date Value 04/02/2024 9.1 Alkaline Phosphatase (U/L) Date Value 04/02/2024 101 Bilirubin, Total (mg/dL) Date Value 04/02/2024 0.5 AST (U/L) Date Value 04/02/2024 60 (H) ALT (U/L) Date Value 04/02/2024 33 Cholesterol, Total (mg/dL) Date Value 03/19/2024 92 Triglyceride (mg/dL) Date Value 03/19/2024 225 (H) M-Protein Concentration Date Value 03/12/2024 1.12 g/dL 02/03/2024 0.89 g/dL 12/09/2023 0.76 g/dL 10/14/2023 0.70 g/dL 09/15/2023 0.75 g/dL 07/02/2021 0.36 gm/dL 06/04/2021 0.31 gm/dL 04/17/2021 0.35 gm/dL 02/26/2021 0.37 gm/dL 12/26/2020 0.62 gm/dL DIAGNOSIS: (C90.00) Multiple myeloma not having achieved remission (HCC) (primary encounter diagnosis) Plan: COMPREHENSIVE METABOLIC PANEL, COMPLETE BLOOD COUNT AND DIFFERENTIAL (D70.3) Neutropenia associated with infection (HCC) Plan: COMPREHENSIVE METABOLIC PANEL, COMPLETE BLOOD COUNT AND DIFFERENTIAL PAST MEDICAL HISTORY Diagnosis Date Abdominal aortic aneurysm (HCC) Allergic rhinitis Biceps rupture, proximal 04/09/2014 Bicipital tenosynovitis 11/01/2013 Chronic pain COVID-19 06/11/2020 positive test 06/13/20 Depression 09/18/2020 Continue home dose of lexapro Elevated blood protein elevated MGUS Generalized anxiety disorder Glaucoma Hepatocellular carcinoma (HCC) Hypercholesteremia 09/17/2020 Hold Lipitor inpatient Hyperlipemia Hypertension Leukocytosis MRSA infection Multiple myeloma (HCC) 09/17/2020 6 Cycles RVD (February 2020 through August 2020) in a [place] Multiple myeloma not having achieved remission ([facility]) 02/04/2020 Neuropathy 08/20/2020 Continue home Gabapentin Obesity Restless leg syndrome 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 Protocol(s): 3422 1C Preparative regimen: Melphalan Mobilization regimen: plerixafor & neupogen Stem cell source: apheresis CD34 cell dose (x10e6/kg): 4.05 Date of transplant: 09/19/20 Type 2 diabetes (HCC) 08/20/2020 Takes metformin, Lantus, victoza & Farxiga Sliding Scale inpatient & Lantus Plan: -Endo following, recs in dc instructions for home Type II or unspecified type diabetes mellitus without mention of complication, uncontrolled PAST SURGICAL HISTORY Procedure Laterality Date EXTENSIVE FINGER SURGERY Right FOOT/TOES SURGERY PROC UNLISTED Left hammer toes and bunions HEPATECTOMY RESCJ TOTAL RIGHT LOBECTOMY 10/08/2022 lap right hepatectomy for T2Nx [facility] LAPAROSCOPIC CHOLECYSTECTOMY 10/08/2022 LIVER BIOPSY PALATOP CL PALATE ATTACHMENT PHARYNGEAL FLAP age 5 PAST SURGICAL HISTORY OF MRSA cyst removed from face PAST SURGICAL HISTORY OF Cyst removed from mouth SHOULDER SURGERY HX Left tendon repair Social History Tobacco Use Smoking status: Former Current packs/day: 0.00 Average packs/day: 1 pack/day for 40.0 years (40.0 ttl pk-yrs) Types: Cigarettes Start date: 1977 Quit date: 2017 Years since quittin.9 Passive exposure: Past Smokeless tobacco: Never Tobacco comments: 03/30/2018 Vaping Use Vaping status: Never Used Substance Use Topics Alcohol use: Yes Comment: occassional Drug use: Yes Types: Marijuana Comment: THC edibles, 3x a week FAMILY HISTORY Problem Relation Age of Onset Cancer Mother brain 76 y/o Heart disease Mother Hypertension Mother Diabetes Father Heart disease Father Hypertension Father Heart Attack Father Diabetes Sister other (atrial fib) Sister COPD Sister No Known Problems Sister other (polio) Maternal Grandfather Diabetes Paternal Grandmother No Known Problems Daughter I spent a total of 30 minutes on the date of the service which included preparing to see the patient, [id number] patient care, completing clinical documentation, performing a medically appropriate examination, counseling and educating the patient/family/caregiver, ordering medications, tests, or procedures, independently interpreting results (not separately reported), communicating results to the patient/family/caregiver, and care coordination (not separately reported). Lorena Blackwell PA-C Hematology and Oncology Services Provided at: [place], [place] CC: Dr. Leth[facility] Dr. Denis Stevens documented in this encounter [facility] 04-04-2024 Telephone encounter Note Emergency Department Culture Callback Service Patient Name: Jon Bauer Date of Callback: 04/04/2024 Pharmacist spoke to Patient to update on results from recent emergency department visit. Patient was verified with two identifiers. Pharmacist reviewed patient with EFRAIN Malcolm to update plan of care documented below. Type of Culture(s): Urine Result: Positive: 50,000-<100,000 CFU/ml Enterococcus faecalis Change in treatment needed:Yes: Initiate treatment Action Taken: Informed Patient of result(s) and educated on treatment plan. Patient states he is having urinary frequency and urgency. Prescription for nitrofurantoin 100 mg BID x 7 days was sent to patient's preferred pharmacy. Instructed patient to completed full course of therapy and follow-up as directed especially if symptoms do not improve or worsen. Please page/call with any issues or questions. Electronic signature: Christy Lott RPh April 04, 2024 3:38 PM Pager/Extension: [phone] [facility] 04-04-2024 Miscellaneous Notes Emergency Department Culture Callback Service Patient Name: Jon Bauer Date of Callback: 04/04/2024 Pharmacist spoke to Patient to update on results from recent emergency department visit. Patient was verified with two identifiers. Pharmacist reviewed patient with EFRAIN Malcolm to update plan of care documented below. Type of Culture(s): Urine Result: Positive: 50,000-<100,000 CFU/ml Enterococcus faecalis Change in treatment needed:Yes: Initiate treatment Action Taken: Informed Patient of result(s) and educated on treatment plan. Patient states he is having urinary frequency and urgency. Prescription for nitrofurantoin 100 mg BID x 7 days was sent to patient's preferred pharmacy. Instructed patient to completed full course of therapy and follow-up as directed especially if symptoms do not improve or worsen. Please page/call with any issues or questions. Electronic signature: Christy Lott RPh April 04, 2024 3:38 PM Pager/Extension: [phone] documented in this encounter [facility] 04-02-2024 Telephone encounter Note EMERGENCY ROOM CALL BACK Today's date: April 02, 2024 Patient identified by name and date of . YES Primary Cancer Diagnosis: Multiple Myeloma Reason for Emergency Room Visit: Fever, Weakness Time of day presented to Emergency Room 1216 If Tue-Tuesday during business hours: Did you contact your Entry Level Project Coordinator/Provider? Pt was in office for a follow up w/ Soha. Patient with any new symptom issues: No Psychosocial Risk Factors: None FOLLOW UP Patient reminded of her follow-up appointment with [facility] provider, Lorena Blackwell on 04/09/24: Yes Next Entry Level Project Coordinator outreach with patient scheduled? Advised pt to call if his symptoms return. Discussed - Pt received IV fluids and IV Cefepime in ER. Urine and blood cultures sent. Results pending. Pt reports that he is feeling better since in our office. Advised he call back if his symptoms return. Pt verbalizes understanding and agrees. PATIENT EDUCATION/REINFORCEMENT Patient verbalizes understanding of when to seek Medical Attention? YES Patient verbalizes understanding of after hours and weekend phone number? YES Patient verbalizes understanding of next outreach appointment? YES Arcelia Thomas RN [facility] Work Phone: 04-02-2024 Miscellaneous Notes EMERGENCY ROOM CALL BACK Today's date: April 02, 2024 Patient identified by name and date of . YES Primary Cancer Diagnosis: Multiple Myeloma Reason for Emergency Room Visit: Fever, Weakness Time of day presented to Emergency Room 1216 If Tue-Tuesday during business hours: Did you contact your Entry Level Project Coordinator/Provider? Pt was in office for a follow up w/ Soha. Patient with any new symptom issues: No Psychosocial Risk Factors: None FOLLOW UP Patient reminded of her follow-up appointment with [facility] provider, Lorena Blackwell on 04/09/24: Yes Next Entry Level Project Coordinator outreach with patient scheduled? Advised pt to call if his symptoms return. Discussed - Pt received IV fluids and IV Cefepime in ER. Urine and blood cultures sent. Results pending. Pt reports that he is feeling better since in our office. Advised he call back if his symptoms return. Pt verbalizes understanding and agrees. PATIENT EDUCATION/REINFORCEMENT Patient verbalizes understanding of when to seek Medical Attention? YES Patient verbalizes understanding of after hours and weekend phone number? YES Patient verbalizes understanding of next outreach appointment? YES Arcelia Thomas RN documented in this encounter [facility] 04-02-2024 Note SARS-COV-2 (AGENT OF COVID-19) RNA: Not detected INFLUENZA A RNA: Not detected INFLUENZA B RNA: Not detected RESPIRATORY SYNCYTIAL VIRUS (RSV) RNA: Not detected [facility] Comment on above: Performed By: #### [id number] ####[facility] LABORATORYCLIA [id number] [facility] [place], [place] [id number] [place] [address] [facility] 04-02-2024 Note [facility] 04-02-2024 Telephone encounter Note Pt c/o weakness, cough, and fever. Temps as high as 102. Seen in office today per Soha. Directed to [facility] for further evaluation. Report phoned to ALEX Barraza @ [facility]. Arcelia Thomas RN [facility] Work Phone: 04-02-2024 Miscellaneous Notes Pt c/o weakness, cough, and fever. Temps as high as 102. Seen in office today per Soha. Directed to [facility] for further evaluation. Report phoned to ALEX Barraza @ [facility]. Arcelia Thomas RN documented in this encounter [facility] 04-01-2024 History of Present illness Narrative Images from the original note were not included. NAME: Jon Bauer CLINIC NO.: [id number] DATE OF SERVICE: April 02, 2024 ([place]) Some elements in this clinic note that are critical to medical decision making have been carefully reviewed and included from a prior clinic note dated: March 26, 2024 (Haroon) Additional Clinicians involved in Jon Bauer's care: Dr. Lomeli, Dr. Frankie Campbell DIAGNOSIS: Multiple myeloma followup ASSESSMENT: This is a 73 year old man diagnosed with an IgG lambda monoclonal gammopathy in 2019 and was then noted to have rising M-spike and PET scan documented a sternal lesion. 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 ISS and R-ISS stage II disease. He had a partial response to induction therapy and has recovered following Autologous stem cell infusion. Up to date on post transplant vaccinations. Mild thrombocytopenia - Stable for now. Additional medical issues include: - Immunodeficiency following HDSCT and patient will continue Acyclovir and post-transplant immunizations per Infectious Disease protocol. - Renal failure is improving and we will continue monitoring. - Neuropathy is stable. - Diabetes mellitus managed by PCP is elevated from steroids. - Hepatocellular carcinoma discovered August 2022, resected October 2022. Initial M-Protein is 3.31 prior to Induction M-spike is 0.34 as of 06/09/2022 10/08/2022 - Resection of Liver mass right lobe [id number] HCC, 3 cm, G2, + LVI. Will undergo serial observation. No current adjuvant therapy recommended. No recurrence on scans February 2023. MRI liver 01/02/2024 no recurrence. Continued to have rising M-spike - repeat bone marrow biopsy shows recurrent myeloma 5 - 9%. Would consider adding Daratumumab but given patient's recurring MRSA skin infections, will hold on Daratumumab and knowing his original FISH showed t(11;14), will use venetoclax + low dose dex and consider adding proteosome inhibitor with it after initial ramp up. Started venclexta 01/04/2024, however held multiple times for neutropenia and MRSA infections. 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 Stevens. 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 MRSA infections - Improved after doxycycline, followed by dermatology. PLAN: Continue to hold Venclexta After discussion with the patient and his we will send the patient to [facility] emergency room for workup. Report was called. Temporarily schedule follow up in 1 week Labs same day Continue allopurinol 100mg daily HPI: CASE HISTORY: Reverse Chronological Order 03/12/2024 - Venclexta held due to neutropenia and ongoing staph infection of skin, given neupogen x 4 doses 02/13/2024 - resumed Venclexta 100 mg daily, however could not increase dose due to GI upset while on antibiotic for Staph infection 01/04/2024-Current - Venclexta 400mg daily - on hold 01/19-02/12 for neutropenia and knee surgery 01/02/2024 - MRI Liver: Cirrhotic liver morphology. A spontaneous splenorenal shunt is present and mild splenomegaly up to 14.2 cm are noted, compatible with portal hypertension. The portal veins are patent. There is no abdominal ascites. Table postsurgical changes from right posterior hepatectomy. No suspicious appearing liver mass identified. A 7 mm T2 hyperintense focus at the dome of the right hepatic lobe is unchanged from September 2022 and favored to represent a hemangioma. Stable-appearing Bosniak type I and type II cysts in both kidneys. Colonic diverticulosis. 10/06/2023 - BMBx: A-C. Bone marrow, aspirate smears, core biopsy, and clot section: - Plasma cell neoplasm, lambda monotypic (5-9% of total marrow cellularity). - Cellular bone marrow (40%) with trilineage hematopoiesis. - Stainable iron present. Comment: The patient is a 73-year-old male with IgG lambda plasma cell neoplasm, originally diagnosed in 2019, for which she had was received therapy as well as hepatocellular carcinoma, status post resection, presenting for restaging in the setting of increasing M protein concentration. Overall, the findings are diagnostic of recurrent/persistent plasma cell neoplasm, lambda monotypic. There is no immunophenotypic evidence of metastatic hepatocellular carcinoma. Subclassification of plasma cell neoplasms requires correlation with clinical, laboratory, and radiographic findings, as well as the pending cytogenetic and molecular genetic results. D. Peripheral blood smear: - Absolute neutropenia. - Normocytic anemia. - Thrombocytopenia 09/19/2023 - MRI Liver: No evidence of suspicious enhancing hepatic mass. Diffuse hepatic fatty infiltration. Mildly complex right renal cyst stable in size since 05/24/23 but demonstrates new thin septal enhancement (Bosniak IIF). Consider attention at interval follow-up. 05/24/2023 - MRI Liver: Postsurgical change as described. No LR-5/OPTN Class 5 lesions. 03/10/2023 - US Kidney Bladder: 1.7 cm RIGHT renal lesion is at least a partially complex cystic lesion but may have a solid peripheral component. Renal neoplasm is not excluded. 02/10/2023 - CT liver with IV contrast: Since 10/01/2022, interval partial right hepatectomy. No findings to suggest residual or recurrent disease. A 1.1 cm hypodensity within the right renal upper pole is indeterminate 11/24/2022-12/30/2023 - Rev maintenance 10/08/2022 - Resection of Liver mass right lobe [id number] HCC, 3 cm, G2, + LVI 06/28/2022 - Held Revlimid due to recurring infections. 07/30/2021 - Resumed Rev at 5mg daily due to thrombocytopenia 07/02/2021 - M-spike 0.36 12/26/2020 - Rx for Maintenance Rev 10mg daily 12/16/2020 - Hospitalization for SBO with intractable nausea 09/19/2020 - HDCT Auto transplant (D0) 08/24/2020 - Pretransplant testing revealed a 24-hour urine with 0.02 gm M spike. Serum M protein was 0.61, serum kappa light chains 15.3, serum lambda light chain 17.0, serum kappa/lambda ratio 0.90 (normal 0.26-1.65) 08/19/2020 - Bone marrow examination 40% cellular with less than 5% plasma cells and normal cytogenetics 02/18/2020-08/25/2020 - RVD 02/01/2020 - PET/CT: No FDG avid neoplastic process in the neck, chest, or A/P. EXTREMITIES/SKELETON: 1.2 cm mildly FDG-avid lytic lesion in the sternum with SUV max of 2.7, may represent a site of active myeloma. No FDG avid destructive osseous lesions elsewhere. Specifically, no hypermetabolic lesions in humeral heads or femurs. 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 06/08/2019 - Bone Survey: Lytic lesions involving bilateral humeral heads and distal right femur Updated Visit, April 02, 2024: Jon Bauer returns for scheduled follow-up. He received 2 units of PRBCs on 03/27/2024. He developed restless legs during the infusion thought to be caused from the Benadryl. He was given oral Valium. He received Neupogen 03/26/2024 through 03/29/2024. At his last visit the venetoclax was put on hold. Over the weekend he developed a fever >102. This morning he had a fever of 100.2 before taking Tylenol. He developed severe chills and shakes. He was so weak that he had to crawl from the couch to the bathroom. He had no dizziness. He has a slight cough. He has no abnormal bleeding. He continues to bruise. He had both nausea and vomiting. He had bone pain after the Neupogen which has since resolved. Today he states that he is feeling terrible. Updated Visit, March 26, 2024: Jon Bauer returns for scheduled follow-up. He remains off of the venetoclax. He complains of increasing fatigue. He developed significant bone pain from the Filgrastim. He denies any fevers, chills, night sweats or signs/symptoms of infection. He has had intermittent headaches. He denies bleeding and abnormal bruising. He denies any cough, shortness of breath or other pulmonary complaints. He denies dizziness and lightheadedness. No leg swelling. No nausea, vomiting or diarrhea. Updated Visit, March 19, 2024: Venclexta is on hold. He did receive neupogen x 4 doses, however had significant bone pain from it. He also had diarrhea and nausea. Was having shortness of breath as well, but that resolved. His staph infection on his neck has resolved after finishing his antibiotic. No bleeding or bruising. No new complaints. Updated Visit, March 12, 2024: Jon returns for a follow up. He is on Flomax per urology - working well for him. He was seen by [facility] for a staph infection on his neck - treating with antibiotics and warm compresses. He did not increase Venclexta as it caused GI upset in combination with his antibiotics. He is neutropenic - WBC: 2.11 - will start Neupogen 480 mcg today x 4 daily doses. Have him hold Venclexta and return in 1 week. Updated Visit, February 20, 2024: Jon returns today for a follow up. His recovering well from knee surgery. He resumed Venclexta 100mg on 02/12 as scheduled. WBC has increased to 3.45, Hgb has decreased slightly - chemistries stable overall. Will increase Venclexta to 200mg in 1 week. Urology appointment rescheduled for 03/06. Updated Visit, February 03, 2024: Jon returns by himself for a follow up. He had 3 days of diarrhea earlier this week and is experiencing increasing knee/leg pain. He continues holding Venclexta to prepare for his arthroscopic knee surgery with Dr. Lorenzana on 02/05. He will resume treatment 1 week after his procedure. Updated Visit, January 20, 2024: Jon returns with Leisa for a follow up. Last night, he developed worsening abdominal pain, gas, and diarrhea. He admits it almost sent him to the ER. He is neutropenic today - will hold Venclexta. I will reduce his dose when he resumes after count recovery. Kidney function is stable, he endorses doing well with hydration. He also endorses fatigue, holding treatment will likely help fatigue improve. Updated Visit, January 10, 2024: Virtual Visit Jon presents today for a virtual visit. He discontinued Revlimid as instructed and started on Venclexta 100mg daily on 01/03. He endorses diarrhea since starting new treatment, although it is tolerable with use of imodium. Updated Visit, December 09, 2023: Jon returns today. After discussion with Dr. Osvaldo Moreira, it was recommended we change his treatment. He will continue Revlimid for now until a treatment plan is finalized. Diarrhea has improved with use of kefir. He endorses leg pain and fatigue with the hot weather. He has yet to see urology, appointment moved to January. Will repeat MRI liver - needs Rx for Xanax as he is claustrophobic. Updated Visit, October 14, 2023: Jon returns today for a follow up. He is joined by his daughter, Lynn, and granddaughters. I reviewed his BMBx, confirmed relapse of multiple myeloma. Will discuss addition of Peace to Revlimid. He has been taking antibiotics again, is dealing with allergies and diarrhea. We discussed the importance of healthy gut bacteria through his diet. Updated Visit, September 15, 2023: Jon returns today and has another episode of facial MRSA abscess. This is healing but he had thrush and diarrhea and was pretty misearble. Held rev for a little bit and has resumed. M-spike continues to rise, will re-stage soon and plan for change in therapy. Updated Visit, August 18, 2023: Jon returns today for a follow up. He had surgery for trigger finger - pain is much better but he notes some stiffness. He has a follow up scheduled to determine his need for PT. He has restarted Revlimid. Platelets are 108 today. M-spike remains elevated. He has had problems regarding urination since his liver surgery in 10/2022. 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 Updated Visit, July 13, 2023: Jon returns today. RBC still low, 3.82 today. He is having surgery for trigger finger with Dr. Lorenzana, so he will hold Revlimid for 2 weeks - started hold on 07/11. Decrease dose of Revlimid was working, but needs more time off - will reassess 3 weeks after resuming. He saw his sign wirer yesterday, who adjusted his insulin. Updated Visit, June 15, 2023: Legs stronger, moving better and is walking more regularly. Trigger finger in his left hand getting worse and will need it released. Decreased dose of rev is working well. Blood sugars improved. Updated Visit, May 18, 2023: Jon is doing well and platelets are improved with lower dose revlimid. Continues follow up for HCC and with urology for the complex renal cyst. Overall has continued improvement with blood sugars. Updated Visit, April 20, 2023: Patient seen urologists that informed him of a complex cyst. He is taking Revlimid every other day, improvements are seen in labs. He has been taking insulin and is managing it better, labs confirm this. He has been having nerve issues, including restless leg syndrome preventing him from sleeping. He also mentions diarrhea, he believes to be from Jardiance. Updated Visit, March 23, 2023: Jon returns today for a follow up and endorses feeling normal. He states he is trying to stay active but takes a day off to rest. Ultrasound shows a 1.7 cm RIGHT renal lesion, at least a partially complex cystic lesion and should follow up with a CT scan. He has a follow up with Urology on April 05. He states he is attending congregation on Tuesday' but doesn't go often because he doesn't want to get sick being around a crowd. We discussed getting the flu vaccination and a COVID booster. Has been holding Revlimid because of cytopenias as directed and CBC pending today, M protien is pending. We reviewed labs, blood count has been low the last few weeks. I will have to call when the results come back. Updated Visit, February 16, 2023: Had MRSA again - has been on Bactrim for 2 weeks WBC is decreased. Platelets are decreased but stable. Reviewed scans with him. Updated Visit, January 19, 2023: Couldn't tolerate MR even with sedation. CT ordered. Continue current Rev as M-spike rise is slowing down Updated Visit, December 22, 2022: Doing much better with blood sugars. Leisa is preparing for the fair. Will adjust maintenance based on results of SPIEP. Updated Visit, November 24, 2022: Saw Dr. Alamnza in follow up - will have next MRI with sedation in January for follow-up of hepatocellular carcinoma Eye infection and is on Keflex drops. Blood sugars still running high M-spike now 0.48 - will resume revlimid. Continues with restless leg and can't sleep at night. - is taking THC Gummies. Updated Visit, October 20, 2022: Jon is 72 and returns with Leisa - doing well. Will recheck myeloma labs Reviewed resection pathology and anticipate serial surveillance. Recovering with multiple bruises post-op and has a drain. Updated Visit, September 30, 2022: Couldn't do MRI yesterday because of claustrophobia. Will continue holding Rev until after resection with Dr. Almanza. Updated Visit, September 01, 2022: Jon returns with Leisa. He was found to have a liver mass. Discussed options for workup and will need to continue monitoring for progressive myeloma. Updated Visit, August 04, 2022: Jon Bauer returns for follow-up. He remains off of Revlimid and due to ongoing infection with MRSA to his face. Since his last visit he was at the [facility] emergency room with left-sided upper abdominal pain with several episodes of diarrhea and a cough with productive green phlegm and chest pain. He had a CT of the chest, abdomen and pelvis. He was treated with IV fluids, morphine and Zofran. He was discharged home on dicyclomine 20 mg every 8 hours. He is feeling better today. He denies fevers and chills. No bleeding or abnormal bruising. He remains off of the Revlimid. He has completed a course of antibiotics for MRSA. He is scheduled to see his PCP tomorrow, Dr. Key. He is scheduled for surgery with Dr. Sir Cazares on August 24, 2022. Updated Visit, July 07, 2022: Saw Dr. Michael 1 week ago and will be seeing plastic surgery - Dr. Moore - currently on Doxycycline. Diarrhea improved. Blood sugars still very high - reviewed and educated regarding Sister 2 weeks ago in [facility]. [facility] and had wound cleaned out. Updated Visit, June 09, 2022: Continues to have ID issues now has diarrhea following two rounds of antibiotic for sinus infections and also additional for MRSA of his left face. M-spike stable. IgG is > 700. Blood sugars are > 500 with adjustments in insulin. Updated Visit, May 12, 2022: Jon Bauer returns for scheduled follow-up. He remains on Revlimid 5 mg daily which he is tolerating well. He denies any significant side effects from the Revlimid. He states that he did not take the Revlimid for 3 to 4 days this month after starting the antibiotic because the combination was rough on his stomach. He recently developed a head cold and chest congestion. He was diagnosed with an ear infection by his PCP. He states that he has been feeling under the weather! . He was given a course of amoxicillin and then developed diarrhea. His symptoms did not improve and was recently started on another course of antibiotics and prednisone. He denies fevers and chills. He denies bleeding and abnormal bruising. No new unusual pain. Updated Visit, April 14, 2022: Labs stable. 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 No other major issues. Chronic limitations to duration of exercise. 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 Counts are stable. Updated Visit, February 17, 2022: Jon Bauer returns for follow-up and labs. He is still being treated for MRSA with Bactrim and a face wash. He has had oral thrush on and off for a couple of months. He remains on Revlimid 5 mg daily and is tolerating it well. He denies any significant side effects from the Revlimid. He denies fevers, chills, night sweats and signs/symptoms of infection. No bleeding or abnormal bruising. Overall he is doing well with no new complaints today. No new issues, problems or concerns. Updated Visit, January 18, 2022: Infection in cheek - (MRSA) is resolving currently on Bactrim DS for a 30 day course. Will resume Revlimid 5 mg and if platelets drop below 35k will decrease to 2.5 mg daily. Currently platelets have recovered to 78k nd will resume treatment. Now has a scab on his right forearm and is seeing dermatology. Looks like a superficial burn with skin sloughing 2 friends have recently - just sad about that. Updated Visit, January 01, 2022: Jon returns and is quite uncomfortable. His platelets still low and abscesses have recurred. Blood sugar is high - can't get in to see Dr. Michael - going to the ER Leisa won several prizes from baking at the fair and granddaughter won showing her pig. Updated Visit, December 18, 2021: Jon returns and his facial infection finally cleared up but required debridement and drainage. Had Dalvance IV Thrush resolved Platelets still low Will hold Revlimid for 2 more weeks - still thromboctopenic - will see if clearance from Dalvance will allow him to resolve. Updated Visit, November 20, 2021: Returns today and retells his saga with sinus infection from last visit: Augmentin didn't help - required tessalon, prednisone and levaquin to get things improved. 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 Otherwise doing well from myeloma standpoint. Updated Visit, October 23, 2021: Jon returns alone today and remains on Rev maintenance. Sinus fullness and productive cough will treat empirically. Otherwise continues to do well. Updated Visit, September 25, 2021: Jon Bauer returns for follow-up. He remains on Revlimid 5 mg daily and is tolerating it well. He denies any side effects from the Revlimid. He started his current cycle on September 08. He denies any unusual pain. He denies fevers, chills, night sweats and signs/symptoms of infection. He denies any abnormal bleeding or abnormal bruising. His skin is thin as he ages and tends to bleed easier due to that. His diarrhea is much improved. He remains on Metamucil. He offers no new complaints today. No new issues, problems or concerns. Updated Visit, August 28, 2021: Diarrhea associated with Metformin now improved significantly. His counts are fairly stable but platelets are a little low. Will continue treatment as is for now and consider holding the dose if he gets lower. Back on insulin for managing blood sugars. Updated Visit, July 30, 2021: Still has diarrhea biopsy results pending. Leisa is with him today. He is doing well overall. Will resume Revlimid at 5 mg daily. Platelets are at 100k. Updated Visit, July 16, 2021: Telephone only for 12 minutes Called Jon as requested and his counts were reviewed. His platelets are improving but still less than 100k. Unfortunately he still has daily diarrhea but is seeing Dr. Garay next week. We will plan to hold his Revilimid for a few weeks longer. Updated Visit, July 02, 2021: Platelets suppressed after having restarted revlimid 1 week ago - will ask him to stop. Still having diarrhea and is going to GI tomorrow M-spike continues to drop slowly. If unable to continue Rev, will change maintenance. Updated Visit, May 07, 2021: Will resume lexapro for depression. May be confusing ativan with lexapro No additional rash - Leisa is with him today. If it recurs, we can switch maintenance to Ixazomib or pomalidomide - defer to transplant team. Updated Visit, April 17, 2021: Walking better, neuropathy improving, fatigue resolving, appetite is improved. Only thing worse is restless legs in the evening. Getting his vaccination series. Labs stable. Rash is resolved. Updated Visit, January 28, 2021: Intermittent bowel issues but no significant problems. Both COVID-19 Vax Pfizer as of tomorrow Balance and activity levels are better - dizziness has resolved. recovereing from mild Upper respiratory viral infection Updated Visit, December 26, 2020: Jon returns today reporting a hospitalization for SBO with intractable nausea 12/16/2020. Managed conservatively and resolved. Proceed with vaccination schedule Start with COVID-19 vax. Occult Blood in stools - consider CT at next visit. Updated Visit, December 05, 2020: Occasional swelling in knees and ankles but is walking and getting more active. Still gets cold easily and has intermittent diarrhea but less than previous. Anemia is improved. Still has fatigue but is improving with continued activity. D100 s approximately 12/27/2020 and will need to start maintenance Revlimid beyond that time. He will need COVID Vax and others on schedule that he has. Updated Visit, November 13, 2020: Jon is 70 yo and underwent Autologous transplant. September 19, 2020 was day of Autologous transplant and is doing well. We will continue monitoring his response and will anticipate starting maintenance therapy at the appropriate time. He had recent resolution of GI symptoms due to a prolonged course of Cipro- which once identified was stopped and symptoms resolved. 08/24/2020 his pretransplant testing revealed a 24-hour urine with 0.02 gm M spike. His serum M protein was 0.61, serum kappa light chains 15.3, serum lambda light chain 17.0, serum kappa/lambda ratio 0.90 (normal 0.26-1.65), and his bone marrow examination from 08/19/2020 was 40% cellular with less than 5% plasma cells and normal cytogenetics. His pretransplant disease response was a OK. Transplant overview: Protocol(s): 3422 1C Preparative regimen: Melphalan Mobilization regimen: plerixafor & neupogen Stem cell source: apheresis CD34 cell dose (x10e6/kg): 4.05 Date of transplant: 09/19/2020 Updated Visit, August 11, 2020: Jon is 69 years old and returns to resume treatment with Velcade plus Revlimid just prior to getting autologous transplant. He has recovered from Covid and is much more active and feels quite a bit better. Fatigue is resolved and he had a great week last week. His counts have recovered and he is safe to proceed. Updated Visit, July 11, 2020: Jon is 69 yo and ended up getting COVID-19 and we held treatment. He has now recovered from the acute effects and has also normalized his kidney function. We will resume treatment next week. Still fatigued, didn't end up in the hospital at least. Updated Visit, June 04, 2020: Jon is 69 yo and returns for ongoing treatment of MM with RVD. He is having difficulty with tolerance and complains of persisting diarrhea - will stop revlimid (he's still taking 25mg). He saw Dr. Campbell for transplant and we will get a 24 hour urine IEP with the next assessment. We will have a break in treatment and then start Rev at a lower dose as previously discussed with him. Updated Visit, May 19, 2020: Feel better but has burning in his stomach which we will try mylanta rather than Pepto-bismol. He is due to see BMT tomorrow virtually and otherwise, with the resolution of his symptoms from last week, he will resume treamtent as scheduled. He has responsive disease on RVD. Updated Visit, May 12, 2020: Jon is 69 yo and is being treated from IgG Lambda multiple myeloma with initial M-spike of 3.3 gm and small lytic lesions in both humeral heads and distal right femur. PET CT noted a lesion on the sternum. He is due for cycle 4 but feels lousy with respect to energy and persisting nausea. He has mild sensory neuropathy as well and is struggling with the decadron to manage his sugars. Updated Visit, April 14, 2020: Jon is 69 years old and returns for treatment for his newly diagnosed multiple myeloma currently on RVD. 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 Bone marrow biopsy in December 2019 revealed findings consistent with smoldering myeloma but with small lytic lesions in both humeral heads as well as right distal femur and an additional lesion noted on the sternum by PET/CT, we elected to treat him with 8-10 cycles of RVD. I discussed consideration of pulmonary transplant with him at his last visit and I will plan on referring him following his third cycle of treatment. He reports that he had issues with nausea and diarrhea, as well gas. Everything is settled down, but he is anxious about symptoms going forward. Updated visit, March 17, 2020: Jon is 69 years old and returns with his Leisa for treatment of newly diagnosed multiple myeloma for which he has been started on RVD. He was followed for a monoclonal gammopathy IgG lambda of 3.3 g since November 2018. Biopsy in December 2019 demonstrated what appeared to be smoldering myeloma but he had small lytic lesions in both humeral heads as well as distal right femur. PET/CT showed an additional lesion in the sternum but did not find the femoral or humeral head lesions based on these findings we electively started him on initial treatment. I anticipate 8-10 cycles of RVD and he returns today for his second cycle. He tolerated his first cycle well however he has some unpredictable bouts of diarrhea small rash on his neck that is resolving as well as candidal mucositis that resolved with Diflucan. Overall he is tolerating treatment very well, has no neuropathy and is willing to proceed with additional treatment as planned. Updated Visit, February 08, 2020: Jon Bauer is a 69 year old male seen for a monoclonal gammopathy found on routine labs. The patient was found to have a monoclonal gammopathy of (IgG) 3.3 gm with lambda specificity noted in Dr. BALDWIN's notes from 11/29/2018. 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 A PET/CT wich showed only a sternal lesion with uptake FDG with SUV 2.7 and no uptake in either femur or humeral heads. Findings are consistent with multiple myeloma and we will proceed with induction therapy. I sat with him and his Leisa and extensively reviewed the treatmtent plan as well as the risks and benefits. I anticipate 8-10 cycles of induction. I will discuss HCT with them at their next visit so as to not overwhelm them. He has mild neuropathy from poorly controlled diabetes and coronary artery calcification but otherwise has a well preserved performance status and could be appropriate despite being older than 65. PATHOLOGIC PROFILE/MOLECULAR DATA: 12/17/2019 - bone marrow biopsy and aspirate: Bone marrow, aspirate smear and core biopsy, with clot section and peripheral blood: -Involved by plasma cell neoplasm with 5 to 10% plasma cells. -Normocellular bone marrow 20% with trilineage hematopoiesis. -Stainable iron present. -Comment-the patient has a history of IgG lambda monoclonal protein. The bone marrow shows involvement by a plasma cell neoplasm with 3% plasma cells in the aspirate smear and 5 to 10% plasma cells by immunohistochemistry. Final classification of plasma cell neoplasms require correlation with additional clinical laboratory and/or radiologic findings. FISH for plasma cell neoplasm: Findings demonstrated plasma cell population with trisomy 9, trisomy 15 and gain of genetic material at the CCN D1 locus or trisomy 11. These findings are consistent with the presence of a plasma cell neoplasm and represent standard risk disease. Cytogenetics: Normal male karyotype 46, XY 20 REVIEW OF SYSTEMS Per HPI and otherwise negative by full review of organ systems. ECOG PERFORMANCE STATUS: 0 PHYSICAL EXAMINATION: Vitals: BP 112/69 Pulse 89 Temp (Src) 97.5 (Temporal) Resp 18 Wt 250 lb 14.1 oz (113.8kg) SpO2 97% Body surface area is 2.39 meters squared. General: Alert and oriented, no distress, pleasant and cooperative. Heart: Regular, normal S1 and S2, no murmurs, rubs, or gallops. Lungs: Clear to auscultation bilaterally. Abdomen: Benign. Extremities: Feet/ankles without edema, posterior tibial pulses full and symmetrical. ALLERGIES: ALLERGIES Allergen Reactions Oseltamivir Vomiting, Other: See Comments got really sick // Tamiflu Amoxicillin-[place]* Diarrhea Sulfamethoxazole-Tr* GI Upset MEDICATIONS: allopurinol (ZYLOPRIM) 100 mg tablet Take 1 tablet by mouth once daily. oxyCODONE-acetaminophen (PERCOCET) 5-325 mg tablet Take 1 tablet by mouth every 8 hours as needed for pain for up to 30 days. tamsulosin (FLOMAX) 0.4 mg Take 1 capsule by mouth daily at bedtime. venetoclax (VENCLEXTA) 100 mg tablet Take 4 tablets (400 mg) by mouth once daily. (Patient not taking: Reported on 03/19/2024) diphenoxylate-atropine (LOMOTIL) 2.5-0.025 mg per tablet Take 1 tablet by mouth four times a day as needed for diarrhea for up to 30 days. Blood-Glucose Sensor (DEXCOM G7 SENSOR) liana as directed. MELATONIN ORAL Take by mouth at bedtime as needed. multivit-minerals/folic acid (CENTRUM MULTIGUMMIES ORAL) Take by mouth once daily. L gasseri/B bifidum/B longum (PROBIOTIC COLON CARE ORAL) Take by mouth once daily as needed. BASAGLAR KWIKPEN U-100 INSULIN 100 unit/mL (3 mL) Inject 30 Units subcutaneously every morning. (Patient taking differently: Inject 50 Units subcutaneously every morning.) insulin aspart U-100 (NOVOLOG FLEXPEN U-100 INSULIN) 100 unit/mL (3 mL) If Blood Glucose (mg/dL) is <110 Give 0 units 111-150 Give 0 units 151-200 Give 2 unit 201-250 Give 4 units 251-300 Give 6 units 301-350 Give 8 units 351-400 Give 10 units >400 Call physician. Insulin [place], Disposable, (BD ULTRA-FINE NAY PEN NEEDLE) 32 gauge x 5/32 Use as directed up to four times daily gabapentin (NEURONTIN) 100 mg capsule Take 1 capsule by mouth daily at bedtime for 30 days. (Patient taking differently: Take 100 mg by mouth three times a day.) rOPINIRole (REQUIP) 2 mg tablet Take 1 tablet by mouth daily at bedtime. Cholecalciferol, Vitamin D3, (VITAMIN D) 25 mcg (1,000 unit) cap Take 2 capsules by mouth once daily. atorvastatin (LIPITOR) 10 mg tablet Take 10 mg by mouth once daily. cetirizine (ZYRTEC) 10 mg tablet Take 10 mg by mouth once daily. LABORATORY VALUES: WBC (k/uL) Date Value 03/26/2024 1.79 (L) RBC (m/uL) Date Value 03/26/2024 2.46 (L) Hemoglobin (g/dL) Date Value 03/26/2024 8.0 (L) Hematocrit (%) Date Value 03/26/2024 24.2 (L) MCV (fL) Date Value 03/26/2024 98.4 MCH (pg) Date Value 03/26/2024 32.5 MCHC (g/dL) Date Value 03/26/2024 33.1 RDW-CV (%) Date Value 03/26/2024 14.8 Platelet Count (k/uL) Date Value 03/26/2024 64 (L) MPV (fL) Date Value 03/26/2024 11.4 Glucose (mg/dL) Date Value 03/26/2024 199 (H) BUN (mg/dL) Date Value 03/26/2024 26 (H) Creatinine (mg/dL) Date Value 03/26/2024 1.22 Sodium (mmol/L) Date Value 03/26/2024 140 Potassium (mmol/L) Date Value 03/26/2024 4.8 Chloride (mmol/L) Date Value 03/26/2024 106 CO2 (mmol/L) Date Value 03/26/2024 24 Protein, Total (g/dL) Date Value 03/26/2024 6.8 Albumin (g/dL) Date Value 03/26/2024 3.5 (L) Calcium, Total (mg/dL) Date Value 03/26/2024 9.2 Alkaline Phosphatase (U/L) Date Value 03/26/2024 89 Bilirubin, Total (mg/dL) Date Value 03/26/2024 0.5 AST (U/L) Date Value 03/26/2024 45 (H) ALT (U/L) Date Value 03/26/2024 33 Cholesterol, Total (mg/dL) Date Value 03/19/2024 92 Triglyceride (mg/dL) Date Value 03/19/2024 225 (H) M-Protein Concentration Date Value 03/12/2024 1.12 g/dL 02/03/2024 0.89 g/dL 12/09/2023 0.76 g/dL 10/14/2023 0.70 g/dL 09/15/2023 0.75 g/dL 07/02/2021 0.36 gm/dL 06/04/2021 0.31 gm/dL 04/17/2021 0.35 gm/dL 02/26/2021 0.37 gm/dL 12/26/2020 0.62 gm/dL DIAGNOSIS: (C90.00) Multiple myeloma not having achieved remission (HCC) (primary encounter diagnosis) PAST MEDICAL HISTORY Diagnosis Date Abdominal aortic aneurysm (HCC) Allergic rhinitis Biceps rupture, proximal 04/09/2014 Bicipital tenosynovitis 11/01/2013 Chronic pain COVID-19 06/11/2020 positive test 06/13/20 Depression 09/18/2020 Continue home dose of lexapro Elevated blood protein elevated MGUS Generalized anxiety disorder Glaucoma Hepatocellular carcinoma (HCC) Hypercholesteremia 09/17/2020 Hold Lipitor inpatient Hyperlipemia Hypertension Leukocytosis MRSA infection Multiple myeloma (HCC) 09/17/2020 6 Cycles RVD (February 2020 through August 2020) in a [place] Multiple myeloma not having achieved remission (HCC) 02/04/2020 Neuropathy 08/20/2020 Continue home Gabapentin Obesity Restless leg syndrome 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 Protocol(s): 3422 1C Preparative regimen: Melphalan Mobilization regimen: plerixafor & neupogen Stem cell source: apheresis CD34 cell dose (x10e6/kg): 4.05 Date of transplant: 09/19/20 Type 2 diabetes (HCC) 08/20/2020 Takes metformin, Lantus, victoza & Farxiga Sliding Scale inpatient & Lantus Plan: -Endo following, recs in dc instructions for home Type II or unspecified type diabetes mellitus without mention of complication, uncontrolled PAST SURGICAL HISTORY Procedure Laterality Date EXTENSIVE FINGER SURGERY Right FOOT/TOES SURGERY PROC UNLISTED Left hammer toes and bunions HEPATECTOMY RESCJ TOTAL RIGHT LOBECTOMY 10/08/2022 lap right hepatectomy for T2Nx HCC LAPAROSCOPIC CHOLECYSTECTOMY 10/08/2022 LIVER BIOPSY PALATOP CL PALATE ATTACHMENT PHARYNGEAL FLAP age 5 PAST SURGICAL HISTORY OF MRSA cyst removed from face PAST SURGICAL HISTORY OF Cyst removed from mouth SHOULDER SURGERY HX Left tendon repair Social History Tobacco Use Smoking status: Former Current packs/day: 0.00 Average packs/day: 1 pack/day for 40.0 years (40.0 ttl pk-yrs) Types: Cigarettes Start date: 1977 Quit date: 2017 Years since quittin.9 Passive exposure: Past Smokeless tobacco: Never Tobacco comments: 03/30/2018 Vaping Use Vaping status: Never Used Substance Use Topics Alcohol use: Yes Comment: occassional Drug use: Yes Types: Marijuana Comment: THC edibles, 3x a week FAMILY HISTORY Problem Relation Age of Onset Cancer Mother brain 76 y/o Heart disease Mother Hypertension Mother Diabetes Father Heart disease Father Hypertension Father Heart Attack Father Diabetes Sister other (atrial fib) Sister COPD Sister No Known Problems Sister other (polio) Maternal Grandfather Diabetes Paternal Grandmother No Known Problems Daughter I spent a total of 30 minutes on the date of the service which included preparing to see the patient, [id number] patient care, completing clinical documentation, obtaining and/or reviewing separately obtained history, performing a medically appropriate examination, counseling and educating the patient/family/caregiver, ordering medications, tests, or procedures, independently interpreting results (not separately reported), and communicating results to the patient/family/caregiver. Soha Nunn APRN.CNP Hematology and Oncology Services Provided at: [place], [place] CC: Dr. Letha Michael Dr. [facility] Dr. Denis Stevens documented in this encounter [facility] 03-27-2024 Note Addended by: SOHA GRIFFITHS on: 03/27/2024 04:48 PM Modules accepted: Orders [facility] 03-27-2024 Miscellaneous Notes Addended by: SOHA NUNN on: 03/27/2024 04:48 PM Modules accepted: Orders documented in this encounter [facility] 03-27-2024 Telephone encounter Note faxed [facility] 03-27-2024 Miscellaneous Notes faxed The following approved medication requests have been transmitted electronically. Requested Prescriptions Signed Prescriptions Disp Refills LORazepam (ATIVAN) 1 mg tablet 1 tablet 0 Sig: Take 1 tablet by mouth once daily for 1 day. Authorizing Provider: SOHA NUNN APRN.CNP Pt receiving blood transfusion and developed restless legs 45 minutes after receiving IV Benadryl. Requesting medication to help relieve. Pt has been trying to walk it off it is not really improving. 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 Requested Prescriptions Signed Prescriptions Disp Refills LORazepam (ATIVAN) 1 mg tablet 1 tablet 0 Sig: Take 1 tablet by mouth once daily for 1 day. Authorizing Provider: SOHA NUNN APRN.CNP [facility] 03-27-2024 Telephone encounter Note Pt receiving blood transfusion and developed restless legs 45 minutes after receiving IV Benadryl. Requesting medication to help relieve. Pt has been trying to walk it off it is not really improving. 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 NAME: Jon Bauer [facility] NO.: [id number] DATE OF SERVICE: March 26, 2024 (Haroon) Some elements in this clinic note that are critical to medical decision making have been carefully reviewed and included from a prior clinic note dated: March 19, 2024 (Rishi) Additional Clinicians involved in Jon Bauer's care: Dr. Lomeli, Dr. Frankie Campbell DIAGNOSIS: Multiple myeloma followup ASSESSMENT: This is a 73 year old man diagnosed with an IgG lambda monoclonal gammopathy in 2019 and was then noted to have rising M-spike and PET scan documented a sternal lesion. 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 ISS and R-ISS stage II disease. He had a partial response to induction therapy and has recovered following Autologous stem cell infusion. Up to date on post transplant vaccinations. Mild thrombocytopenia - Stable for now. Additional medical issues include: - Immunodeficiency following HDSCT and patient will continue Acyclovir and post-transplant immunizations per Infectious Disease protocol. - Renal failure is improving and we will continue monitoring. - Neuropathy is stable. - Diabetes mellitus managed by PCP is elevated from steroids. - Hepatocellular carcinoma discovered August 2022, resected October 2022. Initial M-Protein is 3.31 prior to Induction M-spike is 0.34 as of 06/09/2022 10/08/2022 - Resection of Liver mass right lobe [id number] HCC, 3 cm, G2, + LVI. Will undergo serial observation. No current adjuvant therapy recommended. No recurrence on scans February 2023. MRI liver 01/02/2024 no recurrence. Continued to have rising M-spike - repeat bone marrow biopsy shows recurrent myeloma 5 - 9%. Would consider adding Daratumumab but given patient's recurring MRSA skin infections, will hold on Daratumumab and knowing his original FISH showed t(11;14), will use venetoclax + low dose dex and consider adding proteosome inhibitor with it after initial ramp up. Started venclexta 01/04/2024, however held multiple times for neutropenia and MRSA infections. 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 Stevens. 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 MRSA infections - Improved after doxycycline, followed by dermatology. PLAN: Continue to hold Venclexta Daily Neupogen 480 mcg x 4 doses - Start today We will arrange for 2 units of PRBCs RTC in 1 week Labs same day Continue allopurinol 100mg daily HPI: CASE HISTORY: Reverse Chronological Order 03/12/2024 - Venclexta held due to neutropenia and ongoing staph infection of skin, given neupogen x 4 doses 02/13/2024 - resumed Venclexta 100 mg daily, however could not increase dose due to GI upset while on antibiotic for Staph infection 01/04/2024-Current - Venclexta 400mg daily - on hold 01/19-02/12 for neutropenia and knee surgery 01/02/2024 - MRI Liver: Cirrhotic liver morphology. A spontaneous splenorenal shunt is present and mild splenomegaly up to 14.2 cm are noted, compatible with portal hypertension. The portal veins are patent. There is no abdominal ascites. Table postsurgical changes from right posterior hepatectomy. No suspicious appearing liver mass identified. A 7 mm T2 hyperintense focus at the dome of the right hepatic lobe is unchanged from September 2022 and favored to represent a hemangioma. Stable-appearing Bosniak type I and type II cysts in both kidneys. Colonic diverticulosis. 10/06/2023 - BMBx: A-C. Bone marrow, aspirate smears, core biopsy, and clot section: - Plasma cell neoplasm, lambda monotypic (5-9% of total marrow cellularity). - Cellular bone marrow (40%) with trilineage hematopoiesis. - Stainable iron present. Comment: The patient is a 73-year-old male with IgG lambda plasma cell neoplasm, originally diagnosed in 2019, for which she had was received therapy as well as hepatocellular carcinoma, status post resection, presenting for restaging in the setting of increasing M protein concentration. Overall, the findings are diagnostic of recurrent/persistent plasma cell neoplasm, lambda monotypic. There is no immunophenotypic evidence of metastatic hepatocellular carcinoma. Subclassification of plasma cell neoplasms requires correlation with clinical, laboratory, and radiographic findings, as well as the pending cytogenetic and molecular genetic results. D. Peripheral blood smear: - Absolute neutropenia. - Normocytic anemia. - Thrombocytopenia 09/19/2023 - MRI Liver: No evidence of suspicious enhancing hepatic mass. Diffuse hepatic fatty infiltration. Mildly complex right renal cyst stable in size since 05/24/23 but demonstrates new thin septal enhancement (Bosniak IIF). Consider attention at interval follow-up. 05/24/2023 - MRI Liver: Postsurgical change as described. No LR-5/OPTN Class 5 lesions. 03/10/2023 - US Kidney Bladder: 1.7 cm RIGHT renal lesion is at least a partially complex cystic lesion but may have a solid peripheral component. Renal neoplasm is not excluded. 02/10/2023 - CT liver with IV contrast: Since 10/01/2022, interval partial right hepatectomy. No findings to suggest residual or recurrent disease. A 1.1 cm hypodensity within the right renal upper pole is indeterminate 11/24/2022-12/30/2023 - Rev maintenance 10/08/2022 - Resection of Liver mass right lobe [id number] HCC, 3 cm, G2, + LVI 06/28/2022 - Held Revlimid due to recurring infections. 07/30/2021 - Resumed Rev at 5mg daily due to thrombocytopenia 07/02/2021 - M-spike 0.36 12/26/2020 - Rx for Maintenance Rev 10mg daily 12/16/2020 - Hospitalization for SBO with intractable nausea 09/19/2020 - HDCT Auto transplant (D0) 08/24/2020 - Pretransplant testing revealed a 24-hour urine with 0.02 gm M spike. Serum M protein was 0.61, serum kappa light chains 15.3, serum lambda light chain 17.0, serum kappa/lambda ratio 0.90 (normal 0.26-1.65) 08/19/2020 - Bone marrow examination 40% cellular with less than 5% plasma cells and normal cytogenetics 02/18/2020-08/25/2020 - RVD 02/01/2020 - PET/CT: No FDG avid neoplastic process in the neck, chest, or A/P. EXTREMITIES/SKELETON: 1.2 cm mildly FDG-avid lytic lesion in the sternum with SUV max of 2.7, may represent a site of active myeloma. No FDG avid destructive osseous lesions elsewhere. Specifically, no hypermetabolic lesions in humeral heads or femurs. 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 06/08/2019 - Bone Survey: Lytic lesions involving bilateral humeral heads and distal right femur Updated Visit, March 26, 2024: Jon Bauer returns for scheduled follow-up. He remains off of the venetoclax. He complains of increasing fatigue. He developed significant bone pain from the Filgrastim. He denies any fevers, chills, night sweats or signs/symptoms of infection. He has had intermittent headaches. He denies bleeding and abnormal bruising. He denies any cough, shortness of breath or other pulmonary complaints. He denies dizziness and lightheadedness. No leg swelling. No nausea, vomiting or diarrhea. Updated Visit, March 19, 2024: Venclexta is on hold. He did receive neupogen x 4 doses, however had significant bone pain from it. He also had diarrhea and nausea. Was having shortness of breath as well, but that resolved. His staph infection on his neck has resolved after finishing his antibiotic. No bleeding or bruising. No new complaints. Updated Visit, March 12, 2024: Jon returns for a follow up. He is on Flomax per urology - working well for him. He was seen by [facility] for a staph infection on his neck - treating with antibiotics and warm compresses. He did not increase Venclexta as it caused GI upset in combination with his antibiotics. He is neutropenic - WBC: 2.11 - will start Neupogen 480 mcg today x 4 daily doses. Have him hold Venclexta and return in 1 week. Updated Visit, February 20, 2024: Jon returns today for a follow up. His recovering well from knee surgery. He resumed Venclexta 100mg on 02/12 as scheduled. WBC has increased to 3.45, Hgb has decreased slightly - chemistries stable overall. Will increase Venclexta to 200mg in 1 week. Urology appointment rescheduled for 03/06. Updated Visit, February 03, 2024: Jon returns by himself for a follow up. He had 3 days of diarrhea earlier this week and is experiencing increasing knee/leg pain. He continues holding Venclexta to prepare for his arthroscopic knee surgery with Dr. Lorenzana on 02/05. He will resume treatment 1 week after his procedure. Updated Visit, January 20, 2024: Jon returns with Leisa for a follow up. Last night, he developed worsening abdominal pain, gas, and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 11/01/2013 Chronic pain COVID-19 06/11/2020 positive test 06/13/20 Depression 09/18/2020 Continue home dose of lexapro Elevated blood protein elevated MGUS Generalized anxiety disorder Glaucoma Hepatocellular carcinoma (HCC) Hypercholesteremia 09/17/2020 Hold Lipitor inpatient Hyperlipemia Hypertension Leukocytosis MRSA infection Multiple myeloma (HCC) 09/17/2020 6 Cycles RVD (February 2020 through August 2020) in a [place] Multiple myeloma not having achieved remission (HCC) 02/04/2020 Neuropathy 08/20/2020 Continue home Gabapentin Obesity Restless leg syndrome 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 Protocol(s): 3422 1C Preparative regimen: Melphalan Mobilization regimen: plerixafor & neupogen Stem cell source: apheresis CD34 cell dose (x10e6/kg): 4.05 Date of transplant: 09/19/20 Type 2 diabetes (HCC) 08/20/2020 Takes metformin, Lantus, victoza & Farxiga Sliding Scale inpatient & Lantus Plan: -Endo following, recs in dc instructions for home Type II or unspecified type diabetes mellitus without mention of complication, uncontrolled PAST SURGICAL HISTORY Procedure Laterality Date EXTENSIVE FINGER SURGERY Right FOOT/TOES SURGERY PROC UNLISTED Left hammer toes and bunions HEPATECTOMY RESCJ TOTAL RIGHT LOBECTOMY 10/08/2022 lap right hepatectomy for T2Nx [facility] LAPAROSCOPIC CHOLECYSTECTOMY 10/08/2022 LIVER BIOPSY PALATOP CL PALATE ATTACHMENT PHARYNGEAL FLAP age 5 PAST SURGICAL HISTORY OF MRSA cyst removed from face PAST SURGICAL HISTORY OF Cyst removed from mouth SHOULDER SURGERY HX Left tendon repair Social History Tobacco Use Smoking status: Former Current packs/day: 0.00 Average packs/day: 1 pack/day for 40.0 years (40.0 ttl pk-yrs) Types: Cigarettes Start date: 1977 Quit date: 2018 Years since quittin.8 Passive exposure: Past Smokeless tobacco: Never Tobacco comments: 03/30/2018 Vaping Use Vaping status: Never Used Substance Use Topics Alcohol use: Yes Comment: occassional Drug use: Yes Types: Marijuana Comment: THC edibles, 3x a week FAMILY HISTORY Problem Relation Age of Onset Cancer Mother brain 76 y/o Heart disease Mother Hypertension Mother Diabetes Father Heart disease Father Hypertension Father Heart Attack Father Diabetes Sister other (atrial fib) Sister COPD Sister No Known Problems Sister other (polio) Maternal Grandfather Diabetes Paternal Grandmother No Known Problems Daughter I spent a total of 30 minutes on the date of the service which included preparing to see the patient, [id number] patient care, completing clinical documentation, obtaining and/or reviewing separately obtained history, performing a medically appropriate examination, counseling and educating the patient/family/caregiver, ordering medications, tests, or procedures, independently interpreting results (not separately reported), and communicating results to the patient/family/caregiver. Soha Nunn APRN.CNP Hematology and Oncology Services Provided at: [place], [place] CC: Dr. Letha Michael Dr. [facility] Dr. Denis Stevens documented in this encounter [facility] 03-19-2024 Nurse Note Patient states he was sick all weekend fever, diarrhea, sick to stomach he thinks is was from Neupogen shot. Patient did have low back pain, pain in legs was taking Percocet for it. Mariaelena Wiggins MA [facility] 03-19-2024 Nurse Note Patient states he was sick all weekend fever, diarrhea, sick to stomach he thinks is was from Neupogen shot. Patient did have low back pain, pain in legs was taking Percocet for it. Mariaelena Wiggins MA documented in this encounter [facility] 03-19-2024 History of Present illness Narrative Images from the original note were not included. NAME: Jon Bauer [facility] NO.: [id number] DATE OF SERVICE: March 19, 2024 (Rishi) Some elements in this clinic note that are critical to medical decision making have been carefully reviewed and included from a prior clinic note dated: March 12, 2024 (Raz) Additional Clinicians involved in Jon Bauer's care: Dr. Lomeli, Dr. Frankie Campbell DIAGNOSIS: Multiple myeloma followup ASSESSMENT: This is a 73 year old man diagnosed with an IgG lambda monoclonal gammopathy in 2019 and was then noted to have rising M-spike and PET scan documented a sternal lesion. 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 ISS and R-ISS stage II disease. He had a partial response to induction therapy and has recovered following Autologous stem cell infusion. Up to date on post transplant vaccinations. Mild thrombocytopenia - Stable for now. Additional medical issues include: - Immunodeficiency following HDSCT and patient will continue Acyclovir and post-transplant immunizations per Infectious Disease protocol - Renal failure is improving and we will continue monitoring - Neuropathy is stable - Diabetes mellitus managed by PCP is elevated from steroids. - Hepatocellular carcinoma discovered August 2022, resected October 2022. Initial M-Protein is 3.31 prior to Induction M-spike is 0.34 as of 06/09/2022 10/08/2022 - resection of Liver mass right lobe [id number] HCC, 3 cm, G2, + LVI . Will undergo serial observation. No current adjuvant therapy recommended. No recurrence on scans February 2023. MRI liver 01/02/2024 no recurrence. Continued to have rising M-spike - repeat bone marrow biopsy shows recurrent myeloma 5 - 9%. Would consider adding Daratumumab but given patient's recurring MRSA skin infections, will hold on Daratumumab and knowing his original FISH showed t(11;14), will use venetoclax + low dose dex and consider adding proteosome inhibitor with it after initial ramp up. Started venclexta 01/04/2024, however held multiple times for neutropenia and MRSA infections. Currently after neupogen x 4, his neutropenia has improved, however he now has worsening thrombocytopenia. Will hold off on resuming venclexta and see him in 1 week to recheck counts. Continue allopurinol, refill provided Renal cysts will need continued follow up Annual - cyst is Bosniak IIA - sees Dr. 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 MRSA infections--improved after doxycycline, followed by derm HPI: CASE HISTORY: Reverse Chronological Order 03/12/2024 - Venclexta held due to neutropenia and ongoing staph infection of skin, given neupogen x 4 doses 02/13/2024 - resumed Venclexta 100 mg daily, however could not increase dose due to GI upset while on antibiotic for Staph infection 01/04/2024-Current - Venclexta 400mg daily - on hold 01/19-02/12 for neutropenia and knee surgery 01/02/2024 - MRI Liver: Cirrhotic liver morphology. A spontaneous splenorenal shunt is present and mild splenomegaly up to 14.2 cm are noted, compatible with portal hypertension. The portal veins are patent. There is no abdominal ascites. Table postsurgical changes from right posterior hepatectomy. No suspicious appearing liver mass identified. A 7 mm T2 hyperintense focus at the dome of the right hepatic lobe is unchanged from September 2022 and favored to represent a hemangioma. Stable-appearing Bosniak type I and type II cysts in both kidneys. Colonic diverticulosis. 10/06/2023 - BMBx: A-C. Bone marrow, aspirate smears, core biopsy, and clot section: - Plasma cell neoplasm, lambda monotypic (5-9% of total marrow cellularity). - Cellular bone marrow (40%) with trilineage hematopoiesis. - Stainable iron present. Comment: The patient is a 73-year-old male with IgG lambda plasma cell neoplasm, originally diagnosed in 2019, for which she had was received therapy as well as hepatocellular carcinoma, status post resection, presenting for restaging in the setting of increasing M protein concentration. Overall, the findings are diagnostic of recurrent/persistent plasma cell neoplasm, lambda monotypic. There is no immunophenotypic evidence of metastatic hepatocellular carcinoma. Subclassification of plasma cell neoplasms requires correlation with clinical, laboratory, and radiographic findings, as well as the pending cytogenetic and molecular genetic results. D. Peripheral blood smear: - Absolute neutropenia. - Normocytic anemia. - Thrombocytopenia 09/19/2023 - MRI Liver: No evidence of suspicious enhancing hepatic mass. Diffuse hepatic fatty infiltration. Mildly complex right renal cyst stable in size since 05/24/23 but demonstrates new thin septal enhancement (Bosniak IIF). Consider attention at interval follow-up. 05/24/2023 - MRI Liver: Postsurgical change as described. No LR-5/OPTN Class 5 lesions. 03/10/2023 - US Kidney Bladder: 1.7 cm RIGHT renal lesion is at least a partially complex cystic lesion but may have a solid peripheral component. Renal neoplasm is not excluded. 02/10/2023 - CT liver with IV contrast: Since 10/01/2022, interval partial right hepatectomy. No findings to suggest residual or recurrent disease. A 1.1 cm hypodensity within the right renal upper pole is indeterminate 11/24/2022-12/30/2023 - Rev maintenance 10/08/2022 - Resection of Liver mass right lobe [id number] HCC, 3 cm, G2, + LVI 06/28/2022 - Held Revlimid due to recurring infections. 07/30/2021 - Resumed Rev at 5mg daily due to thrombocytopenia 07/02/2021 - M-spike 0.36 12/26/2020 - Rx for Maintenance Rev 10mg daily 12/16/2020 - Hospitalization for SBO with intractable nausea 09/19/2020 - HDCT Auto transplant (D0) 08/24/2020 - Pretransplant testing revealed a 24-hour urine with 0.02 gm M spike. Serum M protein was 0.61, serum kappa light chains 15.3, serum lambda light chain 17.0, serum kappa/lambda ratio 0.90 (normal 0.26-1.65) 08/19/2020 - Bone marrow examination 40% cellular with less than 5% plasma cells and normal cytogenetics 02/18/2020-08/25/2020 - RVD 02/01/2020 - PET/CT: No FDG avid neoplastic process in the neck, chest, or A/P. EXTREMITIES/SKELETON: 1.2 cm mildly FDG-avid lytic lesion in the sternum with SUV max of 2.7, may represent a site of active myeloma. No FDG avid destructive osseous lesions elsewhere. Specifically, no hypermetabolic lesions in humeral heads or femurs. 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 06/08/2019 - Bone Survey: Lytic lesions involving bilateral humeral heads and distal right femur Updated Visit, March 19, 2024: Venclexta is on hold. He did receive neupogen x 4 doses, however had significant bone pain from it. He also had diarrhea and nausea. Was having shortness of breath as well, but that resolved. His staph infection on his neck has resolved after finishing his antibiotic. No bleeding or bruising. No new complaints. Updated Visit, March 12, 2024: Jon returns for a follow up. He is on Flomax per urology - working well for him. He was seen by [facility] for a staph infection on his neck - treating with antibiotics and warm compresses. He did not increase Venclexta as it caused GI upset in combination with his antibiotics. He is neutropenic - WBC: 2.11 - will start Neupogen 480 mcg today x 4 daily doses. Have him hold Venclexta and return in 1 week. Updated Visit, February 20, 2024: Jon returns today for a follow up. His recovering well from knee surgery. He resumed Venclexta 100mg on 02/12 as scheduled. WBC has increased to 3.45, Hgb has decreased slightly - chemistries stable overall. Will increase Venclexta to 200mg in 1 week. Urology appointment rescheduled for 03/06. Updated Visit, February 03, 2024: Jon returns by himself for a follow up. He had 3 days of diarrhea earlier this week and is experiencing increasing knee/leg pain. He continues holding Venclexta to prepare for his arthroscopic knee surgery with Dr. Lorenzana on 02/05. He will resume treatment 1 week after his procedure. Updated Visit, January 20, 2024: Jon returns with Leisa for a follow up. Last night, he developed worsening abdominal pain, gas, and diarrhea. He admits it almost sent him to the ER. He is neutropenic today - will hold Venclexta. I will reduce his dose when he resumes after count recovery. Kidney function is stable, he endorses doing well with hydration. He also endorses fatigue, holding treatment will likely help fatigue improve. Updated Visit, January 10, 2024: Virtual Visit Jon presents today for a virtual visit. He discontinued Revlimid as instructed and started on Venclexta 100mg daily on 01/03. He endorses diarrhea since starting new treatment, although it is tolerable with use of imodium. Updated Visit, December 09, 2023: Jon returns today. After discussion with Dr. Osvaldo Moreira, it was recommended we change his treatment. He will continue Revlimid for now until a treatment plan is finalized. Diarrhea has improved with use of kefir. He endorses leg pain and fatigue with the hot weather. He has yet to see urology, appointment moved to January. Will repeat MRI liver - needs Rx for Xanax as he is claustrophobic. Updated Visit, October 14, 2023: Jon returns today for a follow up. He is joined by his daughter, Lynn, and granddaughters. I reviewed his BMBx, confirmed relapse of multiple myeloma. Will discuss addition of Peace to Revlimid. He has been taking antibiotics again, is dealing with allergies and diarrhea. We discussed the importance of healthy gut bacteria through his diet. Updated Visit, September 15, 2023: Jon returns today and has another episode of facial MRSA abscess. This is healing but he had thrush and diarrhea and was pretty misearble. Held rev for a little bit and has resumed. M-spike continues to rise, will re-stage soon and plan for change in therapy. Updated Visit, August 18, 2023: Jon returns today for a follow up. He had surgery for trigger finger - pain is much better but he notes some stiffness. He has a follow up scheduled to determine his need for PT. He has restarted Revlimid. Platelets are 108 today. M-spike remains elevated. He has had problems regarding urination since his liver surgery in 10/2022. 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 Updated Visit, July 13, 2023: Jon returns today. RBC still low, 3.82 today. He is having surgery for trigger finger with Dr. Lorenzana, so he will hold Revlimid for 2 weeks - started hold on 07/11. Decrease dose of Revlimid was working, but needs more time off - will reassess 3 weeks after resuming. He saw his sign wirer yesterday, who adjusted his insulin. Updated Visit, June 15, 2023: Legs stronger, moving better and is walking more regularly. Trigger finger in his left hand getting worse and will need it released. Decreased dose of rev is working well. Blood sugars improved. Updated Visit, May 18, 2023: Jon is doing well and platelets are improved with lower dose revlimid. Continues follow up for HCC and with urology for the complex renal cyst. Overall has continued improvement with blood sugars. Updated Visit, April 20, 2023: Patient seen urologists that informed him of a complex cyst. He is taking Revlimid every other day, improvements are seen in labs. He has been taking insulin and is managing it better, labs confirm this. He has been having nerve issues, including restless leg syndrome preventing him from sleeping. He also mentions diarrhea, he believes to be from Jardiance. Updated Visit, March 23, 2023: Jon returns today for a follow up and endorses feeling normal. He states he is trying to stay active but takes a day off to rest. Ultrasound shows a 1.7 cm RIGHT renal lesion, at least a partially complex cystic lesion and should follow up with a CT scan. He has a follow up with Urology on April 05. He states he is attending congregation on Tuesday' but doesn't go often because he doesn't want to get sick being around a crowd. We discussed getting the flu vaccination and a COVID booster. Has been holding Revlimid because of cytopenias as directed and CBC pending today, M charline is pending. We reviewed labs, blood count has been low the last few weeks. I will have to call when the results come back. Updated Visit, February 16, 2023: Had MRSA again - has been on Bactrim for 2 weeks WBC is decreased. Platelets are decreased but stable. Reviewed scans with him. Updated Visit, January 19, 2023: Couldn't tolerate MR even with sedation. CT ordered. Continue current Rev as M-spike rise is slowing down Updated Visit, December 22, 2022: Doing much better with blood sugars. Leisa is preparing for the fair. Will adjust maintenance based on results of SPIEP. Updated Visit, November 24, 2022: Saw Dr. Almanza in follow up - will have next MRI with sedation in January for follow-up of hepatocellular carcinoma Eye infection and is on Keflex drops. Blood sugars still running high M-spike now 0.48 - will resume revlimid. Continues with restless leg and can't sleep at night. - is taking THC Gummies. Updated Visit, October 20, 2022: Jon is 72 and returns with Leisa - doing well. Will recheck myeloma labs Reviewed resection pathology and anticipate serial surveillance. Recovering with multiple bruises post-op and has a drain. Updated Visit, September 30, 2022: Couldn't do MRI yesterday because of claustrophobia. Will continue holding Rev until after resection with Dr. Almanza. Updated Visit, September 01, 2022: Jon returns with Leisa. He was found to have a liver mass. Discussed options for workup and will need to continue monitoring for progressive myeloma. Updated Visit, August 04, 2022: Jon Bauer returns for follow-up. He remains off of Revlimid and due to ongoing infection with MRSA to his face. Since his last visit he was at the [facility] emergency room with left-sided upper abdominal pain with several episodes of diarrhea and a cough with productive green phlegm and chest pain. He had a CT of the chest, abdomen and pelvis. He was treated with IV fluids, morphine and Zofran. He was discharged home on dicyclomine 20 mg every 8 hours. He is feeling better today. He denies fevers and chills. No bleeding or abnormal bruising. He remains off of the Revlimid. He has completed a course of antibiotics for MRSA. He is scheduled to see his PCP tomorrow, Dr. Key. He is scheduled for surgery with Dr. Sir Cazares on August 24, 2022. Updated Visit, July 07, 2022: Saw Dr. Michael 1 week ago and will be seeing plastic surgery - Dr. Moore - currently on Doxycycline. Diarrhea improved. Blood sugars still very high - reviewed and educated regarding Sister 2 weeks ago in [facility]. [facility] and had wound cleaned out. Updated Visit, June 09, 2022: Continues to have ID issues now has diarrhea following two rounds of antibiotic for sinus infections and also additional for MRSA of his left face. M-spike stable. IgG is > 700. Blood sugars are > 500 with adjustments in insulin. Updated Visit, May 12, 2022: Jon Bauer returns for scheduled follow-up. He remains on Revlimid 5 mg daily which he is tolerating well. He denies any significant side effects from the Revlimid. He states that he did not take the Revlimid for 3 to 4 days this month after starting the antibiotic because the combination was rough on his stomach. He recently developed a head cold and chest congestion. He was diagnosed with an ear infection by his PCP. He states that he has been feeling under the weather! . He was given a course of amoxicillin and then developed diarrhea. His symptoms did not improve and was recently started on another course of antibiotics and prednisone. He denies fevers and chills. He denies bleeding and abnormal bruising. No new unusual pain. Updated Visit, April 14, 2022: Labs stable. 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 No other major issues. Chronic limitations to duration of exercise. 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 Counts are stable. Updated Visit, February 17, 2022: Jon Bauer returns for follow-up and labs. He is still being treated for MRSA with Bactrim and a face wash. He has had oral thrush on and off for a couple of months. He remains on Revlimid 5 mg daily and is tolerating it well. He denies any significant side effects from the Revlimid. He denies fevers, chills, night sweats and signs/symptoms of infection. No bleeding or abnormal bruising. Overall he is doing well with no new complaints today. No new issues, problems or concerns. Updated Visit, January 18, 2022: Infection in cheek - (MRSA) is resolving currently on Bactrim DS for a 30 day course. Will resume Revlimid 5 mg and if platelets drop below 35k will decrease to 2.5 mg daily. Currently platelets have recovered to 78k nd will resume treatment. Now has a scab on his right forearm and is seeing dermatology. Looks like a superficial burn with skin sloughing 2 friends have recently - just sad about that. Updated Visit, January 01, 2022: Jon returns and is quite uncomfortable. His platelets still low and abscesses have recurred. Blood sugar is high - can't get in to see Dr. Michael - going to the ER Leisa won several prizes from baking at the fair and granddaughter won showing her pig. Updated Visit, December 18, 2021: Jon returns and his facial infection finally cleared up but required debridement and drainage. Had Dalvance IV Thrush resolved Platelets still low Will hold Revlimid for 2 more weeks - still thromboctopenic - will see if clearance from Dalvance will allow him to resolve. Updated Visit, November 20, 2021: Returns today and retells his saga with sinus infection from last visit: Augmentin didn't help - required tessalon, prednisone and levaquin to get things improved. 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 Otherwise doing well from myeloma standpoint. Updated Visit, October 23, 2021: Jon returns alone today and remains on Rev maintenance. Sinus fullness and productive cough will treat empirically. Otherwise continues to do well. Updated Visit, September 25, 2021: Jon Bauer returns for follow-up. He remains on Revlimid 5 mg daily and is tolerating it well. He denies any side effects from the Revlimid. He started his current cycle on September 08. He denies any unusual pain. He denies fevers, chills, night sweats and signs/symptoms of infection. He denies any abnormal bleeding or abnormal bruising. His skin is thin as he ages and tends to bleed easier due to that. His diarrhea is much improved. He remains on Metamucil. He offers no new complaints today. No new issues, problems or concerns. Updated Visit, August 28, 2021: Diarrhea associated with Metformin now improved significantly. His counts are fairly stable but platelets are a little low. Will continue treatment as is for now and consider holding the dose if he gets lower. Back on insulin for managing blood sugars. Updated Visit, July 30, 2021: Still has diarrhea biopsy results pending. Leisa is with him today. He is doing well overall. Will resume Revlimid at 5 mg daily. Platelets are at 100k. Updated Visit, July 16, 2021: Telephone only for 12 minutes Called Jon as requested and his counts were reviewed. His platelets are improving but still less than 100k. Unfortunately he still has daily diarrhea but is seeing Dr. Garay next week. We will plan to hold his Revilimid for a few weeks longer. Updated Visit, July 02, 2021: Platelets suppressed after having restarted revlimid 1 week ago - will ask him to stop. Still having diarrhea and is going to GI tomorrow M-spike continues to drop slowly. If unable to continue Rev, will change maintenance. Updated Visit, May 07, 2021: Will resume lexapro for depression. May be confusing ativan with lexapro No additional rash - Leisa is with him today. If it recurs, we can switch maintenance to Ixazomib or pomalidomide - defer to transplant team. Updated Visit, April 17, 2021: Walking better, neuropathy improving, fatigue resolving, appetite is improved. Only thing worse is restless legs in the evening. Getting his vaccination series. Labs stable. Rash is resolved. Updated Visit, January 28, 2021: Intermittent bowel issues but no significant problems. Both COVID-19 Vax Pfizer as of tomorrow Balance and activity levels are better - dizziness has resolved. recovereing from mild Upper respiratory viral infection Updated Visit, December 26, 2020: Jon returns today reporting a hospitalization for SBO with intractable nausea 12/16/2020. Managed conservatively and resolved. Proceed with vaccination schedule Start with COVID-19 vax. Occult Blood in stools - consider CT at next visit. Updated Visit, December 05, 2020: Occasional swelling in knees and ankles but is walking and getting more active. Still gets cold easily and has intermittent diarrhea but less than previous. Anemia is improved. Still has fatigue but is improving with continued activity. D100 s approximately 12/27/2020 and will need to start maintenance Revlimid beyond that time. He will need COVID Vax and others on schedule that he has. Updated Visit, November 13, 2020: Jon is 70 yo and underwent Autologous transplant. September 19, 2020 was day of Autologous transplant and is doing well. We will continue monitoring his response and will anticipate starting maintenance therapy at the appropriate time. He had recent resolution of GI symptoms due to a prolonged course of Cipro- which once identified was stopped and symptoms resolved. 08/24/2020 his pretransplant testing revealed a 24-hour urine with 0.02 gm M spike. His serum M protein was 0.61, serum kappa light chains 15.3, serum lambda light chain 17.0, serum kappa/lambda ratio 0.90 (normal 0.26-1.65), and his bone marrow examination from 08/19/2020 was 40% cellular with less than 5% plasma cells and normal cytogenetics. His pretransplant disease response was a OK. Transplant overview: Protocol(s): 3422 1C Preparative regimen: Melphalan Mobilization regimen: plerixafor & neupogen Stem cell source: apheresis CD34 cell dose (x10e6/kg): 4.05 Date of transplant: 09/19/2020 Updated Visit, August 11, 2020: Jno is 69 years old and returns to resume treatment with Velcade plus Revlimid just prior to getting autologous transplant. He has recovered from Covid and is much more active and feels quite a bit better. Fatigue is resolved and he had a great week last week. His counts have recovered and he is safe to proceed. Updated Visit, July 11, 2020: Jon is 69 yo and ended up getting COVID-19 and we held treatment. He has now recovered from the acute effects and has also normalized his kidney function. We will resume treatment next week. Still fatigued, didn't end up in the hospital at least. Updated Visit, June 04, 2020: Jon is 69 yo and returns for ongoing treatment of MM with RVD. He is having difficulty with tolerance and complains of persisting diarrhea - will stop revlimid (he's still taking 25mg). He saw Dr. Campbell for transplant and we will get a 24 hour urine IEP with the next assessment. We will have a break in treatment and then start Rev at a lower dose as previously discussed with him. Updated Visit, May 19, 2020: Feel better but has burning in his stomach which we will try mylanta rather than Pepto-bismol. He is due to see BMT tomorrow virtually and otherwise, with the resolution of his symptoms from last week, he will resume treamtent as scheduled. He has responsive disease on RVD. Updated Visit, May 12, 2020: Jon is 69 yo and is being treated from IgG Lambda multiple myeloma with initial M-spike of 3.3 gm and small lytic lesions in both humeral heads and distal right femur. PET CT noted a lesion on the sternum. He is due for cycle 4 but feels lousy with respect to energy and persisting nausea. He has mild sensory neuropathy as well and is struggling with the decadron to manage his sugars. Updated Visit, April 14, 2020: Jon is 69 years old and returns for treatment for his newly diagnosed multiple myeloma currently on RVD. 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 Bone marrow biopsy in December 2019 revealed findings consistent with smoldering myeloma but with small lytic lesions in both humeral heads as well as right distal femur and an additional lesion noted on the sternum by PET/CT, we elected to treat him with 8-10 cycles of RVD. I discussed consideration of pulmonary transplant with him at his last visit and I will plan on referring him following his third cycle of treatment. He reports that he had issues with nausea and diarrhea, as well gas. Everything is settled down, but he is anxious about symptoms going forward. Updated visit, March 17, 2020: Jon is 69 years old and returns with his Leisa for treatment of newly diagnosed multiple myeloma for which he has been started on RVD. He was followed for a monoclonal gammopathy IgG lambda of 3.3 g since November 2018. Biopsy in December 2019 demonstrated what appeared to be smoldering myeloma but he had small lytic lesions in both humeral heads as well as distal right femur. PET/CT showed an additional lesion in the sternum but did not find the femoral or humeral head lesions based on these findings we electively started him on initial treatment. I anticipate 8-10 cycles of RVD and he returns today for his second cycle. He tolerated his first cycle well however he has some unpredictable bouts of diarrhea small rash on his neck that is resolving as well as candidal mucositis that resolved with Diflucan. Overall he is tolerating treatment very well, has no neuropathy and is willing to proceed with additional treatment as planned. Updated Visit, February 08, 2020: Jon Bauer is a 69 year old male seen for a monoclonal gammopathy found on routine labs. The patient was found to have a monoclonal gammopathy of (IgG) 3.3 gm with lambda specificity noted in Dr. BALDWIN's notes from 11/29/2018. 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 A PET/CT wich showed only a sternal lesion with uptake FDG with SUV 2.7 and no uptake in either femur or humeral heads. Findings are consistent with multiple myeloma and we will proceed with induction therapy. I sat with him and his Leisa and extensively reviewed the treatmtent plan as well as the risks and benefits. I anticipate 8-10 cycles of induction. I will discuss HCT with them at their next visit so as to not overwhelm them. He has mild neuropathy from poorly controlled diabetes and coronary artery calcification but otherwise has a well preserved performance status and could be appropriate despite being older than 65. PATHOLOGIC PROFILE/MOLECULAR DATA: 12/17/2019 - bone marrow biopsy and aspirate: Bone marrow, aspirate smear and core biopsy, with clot section and peripheral blood: -Involved by plasma cell neoplasm with 5 to 10% plasma cells. -Normocellular bone marrow 20% with trilineage hematopoiesis. -Stainable iron present. -Comment-the patient has a history of IgG lambda monoclonal protein. The bone marrow shows involvement by a plasma cell neoplasm with 3% plasma cells in the aspirate smear and 5 to 10% plasma cells by immunohistochemistry. Final classification of plasma cell neoplasms require correlation with additional clinical laboratory and/or radiologic findings. FISH for plasma cell neoplasm: Findings demonstrated plasma cell population with trisomy 9, trisomy 15 and gain of genetic material at the CCN D1 locus or trisomy 11. These findings are consistent with the presence of a plasma cell neoplasm and represent standard risk disease. Cytogenetics: Normal male karyotype 46, XY 20 REVIEW OF SYSTEMS Per HPI and otherwise negative by full review of organ systems. ECOG PERFORMANCE STATUS: 0 PHYSICAL EXAMINATION: Vitals: BP 130/72 Pulse 99 Temp (Src) 97.2 (Temporal) Resp 16 Ht 5' 10.984 (1.80m) Wt 253 lb 15.5 oz (115.2kg) SpO2 97% BMI 35.44 kg/(m^2). Body surface area is 2.4 meters squared. General: Alert and oriented, no distress, pleasant and cooperative. Heart: Regular, normal S1 and S2, no murmurs, rubs, or gallops Lungs: Clear to auscultation bilaterally Abdomen: Benign Extremities: Feet/ankles without edema, posterior tibial pulses full and symmetrical ALLERGIES: ALLERGIES Allergen Reactions Oseltamivir Vomiting, Other: See Comments got really sick // Tamiflu Amoxicillin-[place]* Diarrhea Sulfamethoxazole-Tr* GI Upset MEDICATIONS: oxyCODONE-acetaminophen (PERCOCET) 5-325 mg tablet Take 1 tablet by mouth every 8 hours as needed for pain for up to 30 days. doxycycline hyclate (VIBRAMYCIN) 100 mg capsule Take 100 mg by mouth two times a day. Take with food allopurinol (ZYLOPRIM) 100 mg tablet Take 100 mg by mouth once daily. tamsulosin (FLOMAX) 0.4 mg Take 1 capsule by mouth daily at bedtime. venetoclax (VENCLEXTA) 100 mg tablet Take 4 tablets (400 mg) by mouth once daily. diphenoxylate-atropine (LOMOTIL) 2.5-0.025 mg per tablet Take 1 tablet by mouth four times a day as needed for diarrhea for up to 30 days. Blood-Glucose Sensor (DEXCOM G7 SENSOR) liana as directed. MELATONIN ORAL Take by mouth at bedtime as needed. multivit-minerals/folic acid (CENTRUM MULTIGUMMIES ORAL) Take by mouth once daily. L gasseri/B bifidum/B longum (PROBIOTIC COLON CARE ORAL) Take by mouth once daily as needed. BASAGLAR KWIKPEN U-100 INSULIN 100 unit/mL (3 mL) Inject 30 Units subcutaneously every morning. (Patient taking differently: Inject 50 Units subcutaneously every morning.) insulin aspart U-100 (NOVOLOG FLEXPEN U-100 INSULIN) 100 unit/mL (3 mL) If Blood Glucose (mg/dL) is <110 Give 0 units 111-150 Give 0 units 151-200 Give 2 unit 201-250 Give 4 units 251-300 Give 6 units 301-350 Give 8 units 351-400 Give 10 units >400 Call physician. Insulin [place], Disposable, (BD ULTRA-FINE NAY PEN NEEDLE) 32 gauge x 532 Use as directed up to four times daily gabapentin (NEURONTIN) 100 mg capsule Take 1 capsule by mouth daily at bedtime for 30 days. (Patient taking differently: Take 100 mg by mouth three times a day.) rOPINIRole (REQUIP) 2 mg tablet Take 1 tablet by mouth daily at bedtime. Cholecalciferol, Vitamin D3, (VITAMIN D) 25 mcg (1,000 unit) cap Take 2 capsules by mouth once daily. atorvastatin (LIPITOR) 10 mg tablet Take 10 mg by mouth once daily. cetirizine (ZYRTEC) 10 mg tablet Take 10 mg by mouth once daily. LABORATORY VALUES: WBC (k/uL) Date Value 03/19/2024 3.66 (L) RBC (m/uL) Date Value 03/19/2024 3.08 (L) Hemoglobin (g/dL) Date Value 03/19/2024 10.3 (L) Hematocrit (%) Date Value 03/19/2024 30.6 (L) MCV (fL) Date Value 03/19/2024 99.4 MCH (pg) Date Value 03/19/2024 33.4 MCHC (g/dL) Date Value 03/19/2024 33.7 RDW-CV (%) Date Value 03/19/2024 15.6 (H) Platelet Count (k/uL) Date Value 03/19/2024 42 (L) MPV (fL) Date Value 03/19/2024 9.8 Glucose (mg/dL) Date Value 03/12/2024 273 (H) BUN (mg/dL) Date Value 03/12/2024 24 Creatinine (mg/dL) Date Value 03/12/2024 1.33 (H) Sodium (mmol/L) Date Value 03/12/2024 139 Potassium (mmol/L) Date Value 03/12/2024 4.1 Chloride (mmol/L) Date Value 03/12/2024 104 CO2 (mmol/L) Date Value 03/12/2024 27 Protein, Total (g/dL) Date Value 03/12/2024 6.8 03/12/2024 6.7 Albumin (g/dL) Date Value 03/12/2024 3.5 (L) Calcium, Total (mg/dL) Date Value 03/12/2024 9.0 Alkaline Phosphatase (U/L) Date Value 03/12/2024 94 Bilirubin, Total (mg/dL) Date Value 03/12/2024 0.4 AST (U/L) Date Value 03/12/2024 46 (H) ALT (U/L) Date Value 03/12/2024 36 Cholesterol, Total (mg/dL) Date Value 01/19/2023 115 Triglyceride (mg/dL) Date Value 01/19/2023 232 (H) M-Protein Concentration Date Value 03/12/2024 1.12 g/dL 02/03/2024 0.89 g/dL 12/09/2023 0.76 g/dL 10/14/2023 0.70 g/dL 09/15/2023 0.75 g/dL 07/02/2021 0.36 gm/dL 06/04/2021 0.31 gm/dL 04/17/2021 0.35 gm/dL 02/26/2021 0.37 gm/dL 12/26/2020 0.62 gm/dL DIAGNOSIS: (C90.00) Multiple myeloma not having achieved remission (HCC) (primary encounter diagnosis) Plan: COMPREHENSIVE METABOLIC PANEL, COMPLETE BLOOD COUNT AND DIFFERENTIAL, PHOSPHORUS INORGANIC, URIC ACID, LACTATE DEHYDROGENASE (C22.0) Hepatocellular carcinoma (HCC) Plan: COMPREHENSIVE METABOLIC PANEL, COMPLETE BLOOD COUNT AND DIFFERENTIAL, PHOSPHORUS INORGANIC, URIC ACID, LACTATE DEHYDROGENASE (D69.6) Thrombocytopenia (HCC) PAST MEDICAL HISTORY Diagnosis Date Abdominal aortic aneurysm (HCC) Allergic rhinitis Biceps rupture, proximal 04/09/2014 Bicipital tenosynovitis 11/01/2013 Chronic pain COVID-19 06/11/2020 positive test 06/13/20 Depression 09/18/2020 Continue home dose of lexapro Elevated blood protein elevated MGUS Generalized anxiety disorder Glaucoma Hepatocellular carcinoma (HCC) Hypercholesteremia 09/17/2020 Hold Lipitor inpatient Hyperlipemia Hypertension Leukocytosis MRSA infection Multiple myeloma (HCC) 09/17/2020 6 Cycles RVD (February 2020 through August 2020) in a [place] Multiple myeloma not having achieved remission ([facility]) 02/04/2020 Neuropathy 08/20/2020 Continue home Gabapentin Obesity Restless leg syndrome 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 Protocol(s): 3422 1C Preparative regimen: Melphalan Mobilization regimen: plerixafor & neupogen Stem cell source: apheresis CD34 cell dose (x10e6/kg): 4.05 Date of transplant: 09/19/20 Type 2 diabetes ([facility]) 08/20/2020 Takes metformin, Lantus, victoza & Farxiga Sliding Scale inpatient & Lantus Plan: -Endo following, recs in dc instructions for home Type II or unspecified type diabetes mellitus without mention of complication, uncontrolled PAST SURGICAL HISTORY Procedure Laterality Date EXTENSIVE FINGER SURGERY Right FOOT/TOES SURGERY PROC UNLISTED Left hammer toes and bunions HEPATECTOMY RESCJ TOTAL RIGHT LOBECTOMY 10/08/2022 lap right hepatectomy for T2Nx [facility] LAPAROSCOPIC CHOLECYSTECTOMY 10/08/2022 LIVER BIOPSY PALATOP CL PALATE ATTACHMENT PHARYNGEAL FLAP age 5 PAST SURGICAL HISTORY OF MRSA cyst removed from face PAST SURGICAL HISTORY OF Cyst removed from mouth SHOULDER SURGERY HX Left tendon repair Social History Tobacco Use Smoking status: Former Current packs/day: 0.00 Average packs/day: 1 pack/day for 40.0 years (40.0 ttl pk-yrs) Types: Cigarettes Start date: 1977 Quit date: 2017 Years since quittin.8 Passive exposure: Past Smokeless tobacco: Never Tobacco comments: 03/30/2018 Vaping Use Vaping status: Never Used Substance Use Topics Alcohol use: Yes Comment: occassional Drug use: Yes Types: Marijuana Comment: THC edibles, 3x a week FAMILY HISTORY Problem Relation Age of Onset Cancer Mother brain 76 y/o Heart disease Mother Hypertension Mother Diabetes Father Heart disease Father Hypertension Father Heart Attack Father Diabetes Sister other (atrial fib) Sister COPD Sister No Known Problems Sister other (polio) Maternal Grandfather Diabetes Paternal Grandmother No Known Problems Daughter I spent a total of 36 minutes on the date of the service which included preparing to see the patient, [id number] patient care, completing clinical documentation, performing a medically appropriate examination, counseling and educating the patient/family/caregiver, ordering medications, tests, or procedures, independently interpreting results (not separately reported), communicating results to the patient/family/caregiver, and care coordination (not separately reported). Lorena Blackwell PA-C Hematology and Oncology Services Provided at: [place], [place] CC: [facility] Dr. Denis Stevens documented in this encounter [facility] 03-14-2024 Telephone encounter Note Spoke w/ pt. Reports the pain in his stomach is not really pain, but nausea. Zofran is controlling his nausea. His pain is primarily lower back, hips, and legs. Having diarrhea as well, but reports it has improved since taking imodium. Explained to pt that his pain is likely related to the Nivestym injections he's receiving. Notified pt of Percocet script. Pt verbalizes understanding. Arcelia Thomas RN [facility] Work Phone: 03-14-2024 Miscellaneous Notes Spoke w/ pt. Reports the pain in his stomach is not really pain, but nausea. Zofran is controlling his nausea. His pain is primarily lower back, hips, and legs. Having diarrhea as well, but reports it has improved since taking imodium. Explained to pt that his pain is likely related to the Nivestym injections he's receiving. Notified pt of Percocet script. Pt verbalizes understanding. Arcelia Thomas RN Wonder what's causing pain in his abdomen? - I don't remember him mentioning that at his visit. The legs are probably from the neupogen. Pt is here for injection, having 8/10 pain in abdomen, back and legs X2days. States it is a stabbing pain. unable to sleep. states tylenol only helps for short time. Would like something stronger for pain. Uses DM in [place]. Letha Solomon RN\ documented in this encounter [facility] 03-14-2024 Telephone encounter Note Wonder what's causing pain in his abdomen? - I don't remember him mentioning that at his visit. The legs are probably from the neupogen. [facility] 03-14-2024 Telephone encounter Note Pt is here for injection, having 8/10 pain in abdomen, back and legs X2days. States it is a stabbing pain. unable to sleep. states tylenol only helps for short time. Would like something stronger for pain. Uses DM in [place]. Letha Solomon RN\ [facility] 03-13-2024 History of Present illness Narrative Images from the original note were not included. HISTORY OF PRESENT ILLNESS: Jon Bauer is an 73 y.o. @ male. po x 5 weeks 1 day s/p LT knee partial medial meniscectomy 02/06/24. Occas twinges. Taking TYL daily for other things. Denies N/T. Minimal swelling. Occa popping. Occas giving out sensation. Does not wake at HS. Overall happy with progress. REVIEW OF SYSTEMS: General: Denies fever, fatigue or weight loss Lungs: Denies SOB Cardio: Denies chest pain GI: Denies indigestion or abdominal pain Neuro: Denies numbness or tingling, denies new onset paralysis Musculoskeletal: ( see note) PHYSICAL EXAM: Left Knee Exam Left knee exam is normal. Tenderness The patient is experiencing no tenderness. Range of Motion The patient has normal left knee ROM. Extension: 0 Flexion: 120 (tightness on terminal flexion) Other Erythema: absent Scars: present (Portals well healing, sutures removed, no erythema, drainge or discharge, no dehisence) Sensation: normal Pulse: present Swelling: none Effusion: no effusion (consistent with surgery) present Procedures IMAGING: ASSESSMENT: ICD-10-CM 1. Status post arthroscopy of left knee Z98.890 PLAN: s/p LT Knee Arthroscopy: left partial medial menisectomy. Plan: Patient is doing well with decreased pain and improved ROM. He may do activity as tolerated and follow up with our office as needed. Questions answered in laymen terms at the bedside. The diagnosis, home exercise plan and any ongoing restrictions/ recommendations reviewed. If unable to be reached in office, I recommend evaluation at nearest Emergency Room if any symptoms worsened or new symptoms develop for requiring urgent evaluation. Taya Alexander APRN-HIM MANAGER documented in this encounter [facility] 03-12-2024 Instructions Esther Portillo - 03/12/2024 3:23 PM EST Hold Venclexta for 1 week Daily Neupogen 480 mcg x 4 doses - start today Continue antibiotics per dermatology RTC in 1 week Labs same day Continue allopurinol 100mg daily documented in this encounter [facility] 03-12-2024 History of Present illness Narrative Images from the original note were not included. NAME: Jon Bauer CLINIC NO.: [id number] DATE OF SERVICE: March 12, 2024 (scott) Some elements in this clinic note that are critical to medical decision making have been carefully reviewed and included from a prior clinic note dated: February 20, 2024 (Raz) Additional Clinicians involved in Jon Bauer's care: Dr. Lomeli, Dr. Frankie Campbell DIAGNOSIS: Multiple myeloma followup ASSESSMENT: This is a 73 year old man diagnosed with an IgG lambda monoclonal gammopathy in 2019 and was then noted to have rising M-spike and PET scan documented a sternal lesion. 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 ISS and R-ISS stage II disease. He had a partial response to induction therapy and has recovered following Autologous stem cell infusion. Up to date on post transplant vaccinations. Mild thrombocytopenia - Stable for now. Additional medical issues include: - Immunodeficiency following HDSCT and patient will continue Acyclovir and post-transplant immunizations per Infectious Disease protocol - Renal failure is improving and we will continue monitoring - Neuropathy is stable - Diabetes mellitus managed by PCP is elevated from steroids. - Hepatocellular carcinoma discovered August 2022, resected October 2022. Initial M-Protein is 3.31 prior to Induction Current M-spike is 0.34 as of 06/09/2022 10/08/2022 - resection of Liver mass right lobe [id number] HCC, 3 cm, G2, + LVI . Will undergo serial observation. No current adjuvant therapy recommended. No recurrence on scans February 2023. Continues to have rising M-spike - repeat bone marrow biopsy shows recurrent myeloma 5 - 9%. Would consider adding Daratumumab but given patient's recurring MRSA skin infections, will hold on Daratumumab and knowing his original FISH showed t(11;14), will use venetoclax + low dose dex and consider adding proteosome inhibitor with it after initial ramp up. Liver remains clear of recurrence of HCC. Renal cyst will need continued follow up Annual - cyst is Bosniak IIA - sees Dr. 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 PLAN: Hold Venclexta for 1 week Daily Neupogen 480 mcg x 4 doses - start today Continue antibiotics per dermatology RTC in 1 week Labs same day Continue allopurinol 100mg daily HPI: CASE HISTORY: Reverse Chronological Order 01/04/2024-Current - Venclexta 400mg daily - on hold 01/19-02/12 for neutropenia and knee surgery 01/02/2024 - MRI Liver: Cirrhotic liver morphology. A spontaneous splenorenal shunt is present and mild splenomegaly up to 14.2 cm are noted, compatible with portal hypertension. The portal veins are patent. There is no abdominal ascites. Table postsurgical changes from right posterior hepatectomy. No suspicious appearing liver mass identified. A 7 mm T2 hyperintense focus at the dome of the right hepatic lobe is unchanged from September 2022 and favored to represent a hemangioma. Stable-appearing Bosniak type I and type II cysts in both kidneys. Colonic diverticulosis. 10/06/2023 - BMBx: A-C. Bone marrow, aspirate smears, core biopsy, and clot section: - Plasma cell neoplasm, lambda monotypic (5-9% of total marrow cellularity). - Cellular bone marrow (40%) with trilineage hematopoiesis. - Stainable iron present. Comment: The patient is a 73-year-old male with IgG lambda plasma cell neoplasm, originally diagnosed in 2019, for which she had was received therapy as well as hepatocellular carcinoma, status post resection, presenting for restaging in the setting of increasing M protein concentration. Overall, the findings are diagnostic of recurrent/persistent plasma cell neoplasm, lambda monotypic. There is no immunophenotypic evidence of metastatic hepatocellular carcinoma. Subclassification of plasma cell neoplasms requires correlation with clinical, laboratory, and radiographic findings, as well as the pending cytogenetic and molecular genetic results. D. Peripheral blood smear: - Absolute neutropenia. - Normocytic anemia. - Thrombocytopenia 09/19/2023 - MRI Liver: No evidence of suspicious enhancing hepatic mass. Diffuse hepatic fatty infiltration. Mildly complex right renal cyst stable in size since 05/24/23 but demonstrates new thin septal enhancement (Bosniak IIF). Consider attention at interval follow-up. 05/24/2023 - MRI Liver: Postsurgical change as described. No LR-5/OPTN Class 5 lesions. 03/10/2023 - US Kidney Bladder: 1.7 cm RIGHT renal lesion is at least a partially complex cystic lesion but may have a solid peripheral component. Renal neoplasm is not excluded. 02/10/2023 - CT liver with IV contrast: Since 10/01/2022, interval partial right hepatectomy. No findings to suggest residual or recurrent disease. A 1.1 cm hypodensity within the right renal upper pole is indeterminate 11/24/2022-12/30/2023 - Rev maintenance 10/08/2022 - Resection of Liver mass right lobe [id number] HCC, 3 cm, G2, + LVI 06/28/2022 - Held Revlimid due to recurring infections. 07/30/2021 - Resumed Rev at 5mg daily due to thrombocytopenia 07/02/2021 - M-spike 0.36 12/26/2020 - Rx for Maintenance Rev 10mg daily 12/16/2020 - Hospitalization for SBO with intractable nausea 09/19/2020 - HDCT Auto transplant (D0) 08/24/2020 - Pretransplant testing revealed a 24-hour urine with 0.02 gm M spike. Serum M protein was 0.61, serum kappa light chains 15.3, serum lambda light chain 17.0, serum kappa/lambda ratio 0.90 (normal 0.26-1.65) 08/19/2020 - Bone marrow examination 40% cellular with less than 5% plasma cells and normal cytogenetics 02/18/2020-08/25/2020 - RVD 02/01/2020 - PET/CT: No FDG avid neoplastic process in the neck, chest, or A/P. EXTREMITIES/SKELETON: 1.2 cm mildly FDG-avid lytic lesion in the sternum with SUV max of 2.7, may represent a site of active myeloma. No FDG avid destructive osseous lesions elsewhere. Specifically, no hypermetabolic lesions in humeral heads or femurs. 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 06/08/2019 - Bone Survey: Lytic lesions involving bilateral humeral heads and distal right femur Updated Visit, March 12, 2024: Jon returns for a follow up. He is on Flomax per urology - working well for him. He was seen by [facility] for a staph infection on his neck - treating with antibiotics and warm compresses. He did not increase Venclexta as it caused GI upset in combination with his antibiotics. He is neutropenic - WBC: 2.11 - will start Neupogen 480 mcg today x 4 daily doses. Have him hold Venclexta and return in 1 week. Updated Visit, February 20, 2024: Jon returns today for a follow up. His recovering well from knee surgery. He resumed Venclexta 100mg on 02/12 as scheduled. WBC has increased to 3.45, Hgb has decreased slightly - chemistries stable overall. Will increase Venclexta to 200mg in 1 week. Urology appointment rescheduled for 03/06. Updated Visit, February 03, 2024: Jon returns by himself for a follow up. He had 3 days of diarrhea earlier this week and is experiencing increasing knee/leg pain. He continues holding Venclexta to prepare for his arthroscopic knee surgery with Dr. Lorenzana on 02/05. He will resume treatment 1 week after his procedure. Updated Visit, January 20, 2024: Jon returns with Leisa for a follow up. Last night, he developed worsening abdominal pain, gas, and diarrhea. He admits it almost sent him to the ER. He is neutropenic today - will hold Venclexta. I will reduce his dose when he resumes after count recovery. Kidney function is stable, he endorses doing well with hydration. He also endorses fatigue, holding treatment will likely help fatigue improve. Updated Visit, January 10, 2024: Virtual Visit Jon presents today for a virtual visit. He discontinued Revlimid as instructed and started on Venclexta 100mg daily on 01/03. He endorses diarrhea since starting new treatment, although it is tolerable with use of imodium. Updated Visit, December 09, 2023: Jon returns today. After discussion with Dr. Osvaldo Moreira, it was recommended we change his treatment. He will continue Revlimid for now until a treatment plan is finalized. Diarrhea has improved with use of kefir. He endorses leg pain and fatigue with the hot weather. He has yet to see urology, appointment moved to January. Will repeat MRI liver - needs Rx for Xanax as he is claustrophobic. Updated Visit, October 14, 2023: Jon returns today for a follow up. He is joined by his daughter, Lynn, and granddaughters. I reviewed his BMBx, confirmed relapse of multiple myeloma. Will discuss addition of Peace to Revlimid. He has been taking antibiotics again, is dealing with allergies and diarrhea. We discussed the importance of healthy gut bacteria through his diet. Updated Visit, September 15, 2023: Jon returns today and has another episode of facial MRSA abscess. This is healing but he had thrush and diarrhea and was pretty misearble. Held rev for a little bit and has resumed. M-spike continues to rise, will re-stage soon and plan for change in therapy. Updated Visit, August 18, 2023: Jon returns today for a follow up. He had surgery for trigger finger - pain is much better but he notes some stiffness. He has a follow up scheduled to determine his need for PT. He has restarted Revlimid. Platelets are 108 today. M-spike remains elevated. He has had problems regarding urination since his liver surgery in 10/2022. 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 Updated Visit, July 13, 2023: Jon returns today. RBC still low, 3.82 today. He is having surgery for trigger finger with Dr. Lorenzana, so he will hold Revlimid for 2 weeks - started hold on 07/11. Decrease dose of Revlimid was working, but needs more time off - will reassess 3 weeks after resuming. He saw his sign wirer yesterday, who adjusted his insulin. Updated Visit, June 15, 2023: Legs stronger, moving better and is walking more regularly. Trigger finger in his left hand getting worse and will need it released. Decreased dose of rev is working well. Blood sugars improved. Updated Visit, May 18, 2023: Jon is doing well and platelets are improved with lower dose revlimid. Continues follow up for HCC and with urology for the complex renal cyst. Overall has continued improvement with blood sugars. Updated Visit, April 20, 2023: Patient seen urologists that informed him of a complex cyst. He is taking Revlimid every other day, improvements are seen in labs. He has been taking insulin and is managing it better, labs confirm this. He has been having nerve issues, including restless leg syndrome preventing him from sleeping. He also mentions diarrhea, he believes to be from Jardiance. Updated Visit, March 23, 2023: Jon returns today for a follow up and endorses feeling normal. He states he is trying to stay active but takes a day off to rest. Ultrasound shows a 1.7 cm RIGHT renal lesion, at least a partially complex cystic lesion and should follow up with a CT scan. He has a follow up with Urology on April 05. He states he is attending congregation on Tuesday' but doesn't go often because he doesn't want to get sick being around a crowd. We discussed getting the flu vaccination and a COVID booster. Has been holding Revlimid because of cytopenias as directed and CBC pending today, Donn olivier is pending. We reviewed labs, blood count has been low the last few weeks. I will have to call when the results come back. Updated Visit, February 16, 2023: Had MRSA again - has been on Bactrim for 2 weeks WBC is decreased. Platelets are decreased but stable. Reviewed scans with him. Updated Visit, January 19, 2023: Couldn't tolerate MR even with sedation. CT ordered. Continue current Rev as M-spike rise is slowing down Updated Visit, December 22, 2022: Doing much better with blood sugars. Leisa is preparing for the fair. Will adjust maintenance based on results of SPIEP. Updated Visit, November 24, 2022: Saw Dr. Almanza in follow up - will have next MRI with sedation in January for follow-up of hepatocellular carcinoma Eye infection and is on Keflex drops. Blood sugars still running high M-spike now 0.48 - will resume revlimid. Continues with restless leg and can't sleep at night. - is taking THC Gummies. Updated Visit, October 20, 2022: Jon is 72 and returns with Leisa - doing well. Will recheck myeloma labs Reviewed resection pathology and anticipate serial surveillance. Recovering with multiple bruises post-op and has a drain. Updated Visit, September 30, 2022: Couldn't do MRI yesterday because of claustrophobia. Will continue holding Rev until after resection with Dr. Almanza. Updated Visit, September 01, 2022: Jon returns with Leisa. He was found to have a liver mass. Discussed options for workup and will need to continue monitoring for progressive myeloma. Updated Visit, August 04, 2022: Jon Bauer returns for follow-up. He remains off of Revlimid and due to ongoing infection with MRSA to his face. Since his last visit he was at the [facility] emergency room with left-sided upper abdominal pain with several episodes of diarrhea and a cough with productive green phlegm and chest pain. He had a CT of the chest, abdomen and pelvis. He was treated with IV fluids, morphine and Zofran. He was discharged home on dicyclomine 20 mg every 8 hours. He is feeling better today. He denies fevers and chills. No bleeding or abnormal bruising. He remains off of the Revlimid. He has completed a course of antibiotics for MRSA. He is scheduled to see his PCP tomorrow, Dr. Key. He is scheduled for surgery with Dr. Sir Cazares on August 24, 2022. Updated Visit, July 07, 2022: Saw Dr. Michael 1 week ago and will be seeing plastic surgery - Dr. Moore - currently on Doxycycline. Diarrhea improved. Blood sugars still very high - reviewed and educated regarding Sister 2 weeks ago in [facility]. [facility] and had wound cleaned out. Updated Visit, June 09, 2022: Continues to have ID issues now has diarrhea following two rounds of antibiotic for sinus infections and also additional for MRSA of his left face. M-spike stable. IgG is > 700. Blood sugars are > 500 with adjustments in insulin. Updated Visit, May 12, 2022: Jon Bauer returns for scheduled follow-up. He remains on Revlimid 5 mg daily which he is tolerating well. He denies any significant side effects from the Revlimid. He states that he did not take the Revlimid for 3 to 4 days this month after starting the antibiotic because the combination was rough on his stomach. He recently developed a head cold and chest congestion. He was diagnosed with an ear infection by his PCP. He states that he has been feeling under the weather! . He was given a course of amoxicillin and then developed diarrhea. His symptoms did not improve and was recently started on another course of antibiotics and prednisone. He denies fevers and chills. He denies bleeding and abnormal bruising. No new unusual pain. Updated Visit, April 14, 2022: Labs stable. 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 No other major issues. Chronic limitations to duration of exercise. 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 Counts are stable. Updated Visit, February 17, 2022: Jon Bauer returns for follow-up and labs. He is still being treated for MRSA with Bactrim and a face wash. He has had oral thrush on and off for a couple of months. He remains on Revlimid 5 mg daily and is tolerating it well. He denies any significant side effects from the Revlimid. He denies fevers, chills, night sweats and signs/symptoms of infection. No bleeding or abnormal bruising. Overall he is doing well with no new complaints today. No new issues, problems or concerns. Updated Visit, January 18, 2022: Infection in cheek - (MRSA) is resolving currently on Bactrim DS for a 30 day course. Will resume Revlimid 5 mg and if platelets drop below 35k will decrease to 2.5 mg daily. Currently platelets have recovered to 78k nd will resume treatment. Now has a scab on his right forearm and is seeing dermatology. Looks like a superficial burn with skin sloughing 2 friends have recently - just sad about that. Updated Visit, January 01, 2022: Jon returns and is quite uncomfortable. His platelets still low and abscesses have recurred. Blood sugar is high - can't get in to see Dr. Michael - going to the ER Leisa won several prizes from baking at the fair and granddaughter won showing her pig. Updated Visit, December 18, 2021: Jon returns and his facial infection finally cleared up but required debridement and drainage. Had Dalvance IV Thrush resolved Platelets still low Will hold Revlimid for 2 more weeks - still thromboctopenic - will see if clearance from Dalvance will allow him to resolve. Updated Visit, November 20, 2021: Returns today and retells his saga with sinus infection from last visit: Augmentin didn't help - required tessalon, prednisone and levaquin to get things improved. 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 Otherwise doing well from myeloma standpoint. Updated Visit, October 23, 2021: Jon returns alone today and remains on Rev maintenance. Sinus fullness and productive cough will treat empirically. Otherwise continues to do well. Updated Visit, September 25, 2021: Jon Bauer returns for follow-up. He remains on Revlimid 5 mg daily and is tolerating it well. He denies any side effects from the Revlimid. He started his current cycle on September 08. He denies any unusual pain. He denies fevers, chills, night sweats and signs/symptoms of infection. He denies any abnormal bleeding or abnormal bruising. His skin is thin as he ages and tends to bleed easier due to that. His diarrhea is much improved. He remains on Metamucil. He offers no new complaints today. No new issues, problems or concerns. Updated Visit, August 28, 2021: Diarrhea associated with Metformin now improved significantly. His counts are fairly stable but platelets are a little low. Will continue treatment as is for now and consider holding the dose if he gets lower. Back on insulin for managing blood sugars. Updated Visit, July 30, 2021: Still has diarrhea biopsy results pending. Leisa is with him today. He is doing well overall. Will resume Revlimid at 5 mg daily. Platelets are at 100k. Updated Visit, July 16, 2021: Telephone only for 12 minutes Called Jon as requested and his counts were reviewed. His platelets are improving but still less than 100k. Unfortunately he still has daily diarrhea but is seeing Dr. Garay next week. We will plan to hold his Revilimid for a few weeks longer. Updated Visit, July 02, 2021: Platelets suppressed after having restarted revlimid 1 week ago - will ask him to stop. Still having diarrhea and is going to GI tomorrow M-spike continues to drop slowly. If unable to continue Rev, will change maintenance. Updated Visit, May 07, 2021: Will resume lexapro for depression. May be confusing ativan with lexapro No additional rash - Leisa is with him today. If it recurs, we can switch maintenance to Ixazomib or pomalidomide - defer to transplant team. Updated Visit, April 17, 2021: Walking better, neuropathy improving, fatigue resolving, appetite is improved. Only thing worse is restless legs in the evening. Getting his vaccination series. Labs stable. Rash is resolved. Updated Visit, January 28, 2021: Intermittent bowel issues but no significant problems. Both COVID-19 Vax Pfizer as of tomorrow Balance and activity levels are better - dizziness has resolved. recovereing from mild Upper respiratory viral infection Updated Visit, December 26, 2020: Jon returns today reporting a hospitalization for SBO with intractable nausea 12/16/2020. Managed conservatively and resolved. Proceed with vaccination schedule Start with COVID-19 vax. Occult Blood in stools - consider CT at next visit. Updated Visit, December 05, 2020: Occasional swelling in knees and ankles but is walking and getting more active. Still gets cold easily and has intermittent diarrhea but less than previous. Anemia is improved. Still has fatigue but is improving with continued activity. D100 s approximately 12/27/2020 and will need to start maintenance Revlimid beyond that time. He will need COVID Vax and others on schedule that he has. Updated Visit, November 13, 2020: Jon is 70 yo and underwent Autologous transplant. September 19, 2020 was day of Autologous transplant and is doing well. We will continue monitoring his response and will anticipate starting maintenance therapy at the appropriate time. He had recent resolution of GI symptoms due to a prolonged course of Cipro- which once identified was stopped and symptoms resolved. 08/24/2020 his pretransplant testing revealed a 24-hour urine with 0.02 gm M spike. His serum M protein was 0.61, serum kappa light chains 15.3, serum lambda light chain 17.0, serum kappa/lambda ratio 0.90 (normal 0.26-1.65), and his bone marrow examination from 08/19/2020 was 40% cellular with less than 5% plasma cells and normal cytogenetics. His pretransplant disease response was a OK. Transplant overview: Protocol(s): 3422 1C Preparative regimen: Melphalan Mobilization regimen: plerixafor & neupogen Stem cell source: apheresis CD34 cell dose (x10e6/kg): 4.05 Date of transplant: 09/19/2020 Updated Visit, August 11, 2020: Jon is 69 years old and returns to resume treatment with Velcade plus Revlimid just prior to getting autologous transplant. He has recovered from Covid and is much more active and feels quite a bit better. Fatigue is resolved and he had a great week last week. His counts have recovered and he is safe to proceed. Updated Visit, July 11, 2020: Jon is 69 yo and ended up getting COVID-19 and we held treatment. He has now recovered from the acute effects and has also normalized his kidney function. We will resume treatment next week. Still fatigued, didn't end up in the hospital at least. Updated Visit, June 04, 2020: Jon is 69 yo and returns for ongoing treatment of MM with RVD. He is having difficulty with tolerance and complains of persisting diarrhea - will stop revlimid (he's still taking 25mg). He saw Dr. Campbell for transplant and we will get a 24 hour urine IEP with the next assessment. We will have a break in treatment and then start Rev at a lower dose as previously discussed with him. Updated Visit, May 19, 2020: Feel better but has burning in his stomach which we will try mylanta rather than Pepto-bismol. He is due to see BMT tomorrow virtually and otherwise, with the resolution of his symptoms from last week, he will resume treamtent as scheduled. He has responsive disease on RVD. Updated Visit, May 12, 2020: Jon is 69 yo and is being treated from IgG Lambda multiple myeloma with initial M-spike of 3.3 gm and small lytic lesions in both humeral heads and distal right femur. PET CT noted a lesion on the sternum. He is due for cycle 4 but feels lousy with respect to energy and persisting nausea. He has mild sensory neuropathy as well and is struggling with the decadron to manage his sugars. Updated Visit, April 14, 2020: Jon is 69 years old and returns for treatment for his newly diagnosed multiple myeloma currently on RVD. 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 Bone marrow biopsy in December 2019 revealed findings consistent with smoldering myeloma but with small lytic lesions in both humeral heads as well as right distal femur and an additional lesion noted on the sternum by PET/CT, we elected to treat him with 8-10 cycles of RVD. I discussed consideration of pulmonary transplant with him at his last visit and I will plan on referring him following his third cycle of treatment. He reports that he had issues with nausea and diarrhea, as well gas. Everything is settled down, but he is anxious about symptoms going forward. Updated visit, March 17, 2020: Jon is 69 years old and returns with his Leisa for treatment of newly diagnosed multiple myeloma for which he has been started on RVD. He was followed for a monoclonal gammopathy IgG lambda of 3.3 g since November 2018. Biopsy in December 2019 demonstrated what appeared to be smoldering myeloma but he had small lytic lesions in both humeral heads as well as distal right femur. PET/CT showed an additional lesion in the sternum but did not find the femoral or humeral head lesions based on these findings we electively started him on initial treatment. I anticipate 8-10 cycles of RVD and he returns today for his second cycle. He tolerated his first cycle well however he has some unpredictable bouts of diarrhea small rash on his neck that is resolving as well as candidal mucositis that resolved with Diflucan. Overall he is tolerating treatment very well, has no neuropathy and is willing to proceed with additional treatment as planned. Updated Visit, February 08, 2020: Jon Bauer is a 69 year old male seen for a monoclonal gammopathy found on routine labs. The patient was found to have a monoclonal gammopathy of (IgG) 3.3 gm with lambda specificity noted in Dr. BALDWIN's notes from 11/29/2018. 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 A PET/CT wich showed only a sternal lesion with uptake FDG with SUV 2.7 and no uptake in either femur or humeral heads. Findings are consistent with multiple myeloma and we will proceed with induction therapy. I sat with him and his Leisa and extensively reviewed the treatmtent plan as well as the risks and benefits. I anticipate 8-10 cycles of induction. I will discuss HCT with them at their next visit so as to not overwhelm them. He has mild neuropathy from poorly controlled diabetes and coronary artery calcification but otherwise has a well preserved performance status and could be appropriate despite being older than 65. PATHOLOGIC PROFILE/MOLECULAR DATA: 12/17/2019 - bone marrow biopsy and aspirate: Bone marrow, aspirate smear and core biopsy, with clot section and peripheral blood: -Involved by plasma cell neoplasm with 5 to 10% plasma cells. -Normocellular bone marrow 20% with trilineage hematopoiesis. -Stainable iron present. -Comment-the patient has a history of IgG lambda monoclonal protein. The bone marrow shows involvement by a plasma cell neoplasm with 3% plasma cells in the aspirate smear and 5 to 10% plasma cells by immunohistochemistry. Final classification of plasma cell neoplasms require correlation with additional clinical laboratory and/or radiologic findings. FISH for plasma cell neoplasm: Findings demonstrated plasma cell population with trisomy 9, trisomy 15 and gain of genetic material at the CCN D1 locus or trisomy 11. These findings are consistent with the presence of a plasma cell neoplasm and represent standard risk disease. Cytogenetics: Normal male karyotype 46, XY 20 REVIEW OF SYSTEMS Per HPI and otherwise negative by full review of organ systems. ECOG PERFORMANCE STATUS: 0 PHYSICAL EXAMINATION: Vitals: There were no vitals taken for this visit. There is no height or weight on file to calculate BSA. Exam limited to gross visualization where appropriate. Gen.: This is an age-appropriate patient in no acute distress. Head: Appears atraumatic with no visible lesions. Eyes: Pupils equally round and reactive to light, extraocular muscles are intact. Neck: Supple. Respiratory: Appears to be respiring comfortably. Neurologic: Nonfocal to gross visualization. Alert and oriented 3. Psychiatric: No evidence of inappropriate anxiety or depression. Skin: Visible areas of skin without rash, lesions, wounds or petechiae. ALLERGIES: ALLERGIES Allergen Reactions Oseltamivir Vomiting, Other: See Comments got really sick // Tamiflu Amoxicillin-Pot Cla* Diarrhea Sulfamethoxazole-Tr* GI Upset MEDICATIONS: doxycycline hyclate (VIBRAMYCIN) 100 mg capsule Take 100 mg by mouth two times a day. Take with food allopurinol (ZYLOPRIM) 100 mg tablet Take 100 mg by mouth once daily. tamsulosin (FLOMAX) 0.4 mg Take 1 capsule by mouth daily at bedtime. venetoclax (VENCLEXTA) 100 mg tablet Take 4 tablets (400 mg) by mouth once daily. diphenoxylate-atropine (LOMOTIL) 2.5-0.025 mg per tablet Take 1 tablet by mouth four times a day as needed for diarrhea for up to 30 days. Blood-Glucose Sensor (DEXCOM G7 SENSOR) liana as directed. ACETAMINOPHEN ORAL Take by mouth. MELATONIN ORAL Take by mouth at bedtime as needed. multivit-minerals/folic acid (CENTRUM MULTIGUMMIES ORAL) Take by mouth once daily. L gasseri/B bifidum/B longum (PROBIOTIC COLON CARE ORAL) Take by mouth once daily as needed. BASAGLAR KWIKPEN U-100 INSULIN 100 unit/mL (3 mL) Inject 30 Units subcutaneously every morning. (Patient taking differently: Inject 50 Units subcutaneously every morning.) insulin aspart U-100 (NOVOLOG FLEXPEN U-100 INSULIN) 100 unit/mL (3 mL) If Blood Glucose (mg/dL) is <110 Give 0 units 111-150 Give 0 units 151-200 Give 2 unit 201-250 Give 4 units 251-300 Give 6 units 301-350 Give 8 units 351-400 Give 10 units >400 Call physician. Insulin [place], Disposable, (Expanite ULTRA-FINE NAY PEN NEEDLE) 32 gauge x 32 Use as directed up to four times daily gabapentin (NEURONTIN) 100 mg capsule Take 1 capsule by mouth daily at bedtime for 30 days. (Patient taking differently: Take 100 mg by mouth three times a day.) rOPINIRole (REQUIP) 2 mg tablet Take 1 tablet by mouth daily at bedtime. Cholecalciferol, Vitamin D3, (VITAMIN D) 25 mcg (1,000 unit) cap Take 2 capsules by mouth once daily. atorvastatin (LIPITOR) 10 mg tablet Take 10 mg by mouth once daily. cetirizine (ZYRTEC) 10 mg tablet Take 10 mg by mouth once daily. LABORATORY VALUES: WBC (k/uL) Date Value 02/20/2024 3.45 (L) RBC (m/uL) Date Value 02/20/2024 3.04 (L) Hemoglobin (g/dL) Date Value 02/20/2024 10.2 (L) Hematocrit (%) Date Value 02/20/2024 30.5 (L) MCV (fL) Date Value 02/20/2024 100.3 (H) MCH (pg) Date Value 02/20/2024 33.6 MCHC (g/dL) Date Value 02/20/2024 33.4 RDW-CV (%) Date Value 02/20/2024 14.9 Platelet Count (k/uL) Date Value 02/20/2024 101 (L) MPV (fL) Date Value 02/20/2024 8.3 (L) Glucose (mg/dL) Date Value 02/20/2024 351 (H) BUN (mg/dL) Date Value 02/20/2024 25 (H) Creatinine (mg/dL) Date Value 02/20/2024 1.25 (H) Sodium (mmol/L) Date Value 02/20/2024 137 Potassium (mmol/L) Date Value 02/20/2024 4.5 Chloride (mmol/L) Date Value 02/20/2024 102 CO2 (mmol/L) Date Value 02/20/2024 24 Protein, Total (g/dL) Date Value 02/20/2024 6.8 Albumin (g/dL) Date Value 02/20/2024 3.6 (L) Calcium, Total (mg/dL) Date Value 02/20/2024 8.9 Alkaline Phosphatase (U/L) Date Value 02/20/2024 91 Bilirubin, Total (mg/dL) Date Value 02/20/2024 0.4 AST (U/L) Date Value 02/20/2024 77 (H) ALT (U/L) Date Value 02/20/2024 46 Cholesterol, Total (mg/dL) Date Value 01/19/2023 115 Triglyceride (mg/dL) Date Value 01/19/2023 232 (H) M-Protein Concentration Date Value 02/03/2024 0.89 g/dL 12/09/2023 0.76 g/dL 10/14/2023 0.70 g/dL 09/15/2023 0.75 g/dL 08/18/2023 0.74 g/dL 07/02/2021 0.36 gm/dL 06/04/2021 0.31 gm/dL 04/17/2021 0.35 gm/dL 02/26/2021 0.37 gm/dL 12/26/2020 0.62 gm/dL DIAGNOSIS: (C90.00) Multiple myeloma not having achieved remission (HCC) (primary encounter diagnosis) (D70.3) Neutropenia associated with infection (HCC) (C22.0) Hepatocellular carcinoma (HCC) (Z94.81) 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) Stage 3 chronic kidney disease, unspecified whether stage 3a or 3b CKD (HCC) PAST MEDICAL HISTORY Diagnosis Date Abdominal aortic aneurysm (HCC) Allergic rhinitis Biceps rupture, proximal 04/09/2014 Bicipital tenosynovitis 11/01/2013 Chronic pain COVID-19 06/11/2020 positive test 06/13/20 Depression 09/18/2020 Continue home dose of lexapro Elevated blood protein elevated MGUS Generalized anxiety disorder Glaucoma Hepatocellular carcinoma (HCC) Hypercholesteremia 09/17/2020 Hold Lipitor inpatient Hyperlipemia Hypertension Leukocytosis MRSA infection Multiple myeloma (HCC) 09/17/2020 6 Cycles RVD (February 2020 through August 2020) in a [place] Multiple myeloma not having achieved remission (HCC) 02/04/2020 Neuropathy 08/20/2020 Continue home Gabapentin Obesity Restless leg syndrome 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 Protocol(s): 3422 1C Preparative regimen: Melphalan Mobilization regimen: plerixafor & neupogen Stem cell source: apheresis CD34 cell dose (x10e6/kg): 4.05 Date of transplant: 09/19/20 Type 2 diabetes (HCC) 08/20/2020 Takes metformin, Lantus, victoza & Farxiga Sliding Scale inpatient & Lantus Plan: -Endo following, recs in dc instructions for home Type II or unspecified type diabetes mellitus without mention of complication, uncontrolled PAST SURGICAL HISTORY Procedure Laterality Date EXTENSIVE FINGER SURGERY Right FOOT/TOES SURGERY PROC UNLISTED Left hammer toes and bunions HEPATECTOMY RESCJ TOTAL RIGHT LOBECTOMY 10/08/2022 lap right hepatectomy for T2Nx HCC LAPAROSCOPIC CHOLECYSTECTOMY 10/08/2022 LIVER BIOPSY PALATOP CL PALATE ATTACHMENT PHARYNGEAL FLAP age 5 PAST SURGICAL HISTORY OF MRSA cyst removed from face PAST SURGICAL HISTORY OF Cyst removed from mouth SHOULDER SURGERY HX Left tendon repair Social History Tobacco Use Smoking status: Former Current packs/day: 0.00 Average packs/day: 1 pack/day for 40.0 years (40.0 ttl pk-yrs) Types: Cigarettes Start date: 1977 Quit date: 2018 Years since quittin.8 Passive exposure: Past Smokeless tobacco: Never Tobacco comments: 03/30/2018 Vaping Use Vaping status: Never Used Substance Use Topics Alcohol use: Yes Comment: occassional Drug use: Yes Types: Marijuana Comment: THC edibles, 3x a week FAMILY HISTORY Problem Relation Age of Onset Cancer Mother brain 76 y/o Heart disease Mother Hypertension Mother Diabetes Father Heart disease Father Hypertension Father Heart Attack Father Diabetes Sister other (atrial fib) Sister COPD Sister No Known Problems Sister other (polio) Maternal Grandfather Diabetes Paternal Grandmother No Known Problems Daughter I spent a total of 30 minutes on the date of service which included preparing to see the patient, [id number] patient care, completing clinical documentation, performing a medically appropriate examination, counseling and educating the patient/family/caregiver, ordering medications, tests, or procedures, independently interpreting results (not separately reported), communicating results to the patient/family/caregiver, and care coordination (not separately reported). Vimal Crandall MD, CPE [facility] Provided at: [place], [place] Scribe Attestation: This note was scribed by Esther Portillo on March 12, 2024 under the direction and supervision of Dr. Vimal Crandall. I attest that all of the information documented is correct to the best of my knowledge. Provider Attestation: I, Vimal Crandall MD, attest that all information documented by the above scribe is correct, and was supervised by me and under my direction. CC: Dr. Letha [facility] Dr. Denis Stevens documented in this encounter [facility] 03-06-2024 History of Present illness Narrative [facility] ESTABLISHED PATIENT OFFICE VISIT REASON FOR VISIT: Follow up HPI 73 year old male w/h/o history of multiple myeloma, hepatocellular carcinoma, s/p diagnostic laparoscopy, right posterior hepatectomy, cholecystectomy in October 2022 presenting for follow up of renal lesion. CT Liver w/ IV contrast 02/10/2023 - 1.1 cm hypodensity within the right renal upper pole is indeterminate, and could represent a complicated cyst or a small renal mass. Renal US 03/10/2023 - 1.7 cm RIGHT renal lesion is at least a partially complex cystic lesion but may have a solid peripheral component. Renal neoplasm is not excluded Reports he has recovered well from surgery with Dr. Bennett and gets surveillance imaging q 3 months. Initially seen by me 04/05/23 with plan for continued surveillance scans with Dr. Bennett and follow up with afterwards. MRI Liver 09/19/23 - Mildly complex right renal cyst stable in size since 05/24/23 but demonstrates new thin septal enhancement (Bosniak IIF) MRI Liver 01/03/24 - stable-appearing Bosniak type I and type II cysts in both kidneys. Overall feeling well. Endorses urinary frequency. Nocturia 3x, sometimes 5-6x. Reports hesitancy, some intermittency. PATHOLOGY: None LABS: Creatinine Date Value Ref Range Status 02/20/2024 1.25 (H) 0.73 - 1.22 mg/dL Final 02/03/2024 1.20 0.73 - 1.22 mg/dL Final 01/26/2024 1.12 0.73 - 1.22 mg/dL Final 01/20/2024 1.16 0.73 - 1.22 mg/dL Final No results found for: PSA URINALYSIS: pH, Arterial Date Value Ref Range Status 10/08/2022 7.23 (L) 7.35 - 7.45 Final IMAGING: MRI Liver 01/03/24: IMPRESSION: 1. Cirrhotic liver morphology. A spontaneous splenorenal shunt is present and mild splenomegaly up to 14.2 cm are noted, compatible with portal hypertension. The portal veins are patent. There is no abdominal ascites. 2. Table postsurgical changes from right posterior hepatectomy. No suspicious appearing liver mass identified. A 7 mm T2 hyperintense focus at the dome of the right hepatic lobe is unchanged from September 2022 and favored to represent a hemangioma. 3. Stable-appearing Bosniak type I and type II cysts in both kidneys. 4. Colonic diverticulosis. MRI Liver 09/19/23 IMPRESSION: 1. No evidence of suspicious enhancing hepatic mass. 2. Diffuse hepatic fatty infiltration. 3. Mildly complex right renal cyst stable in size since 05/24/23 but demonstrates new thin septal enhancement (Bosniak IIF). Consider attention at interval follow-up. CT Liver w/ IV contrast 02/10/2023 IMPRESSION: 1. Since 10/01/2022, interval partial right hepatectomy. No findings to suggest residual or recurrent disease. No suspicious OPTN-5/LR-5 lesion elsewhere within the liver. 2. No evidence of metastatic disease within the abdomen. 3. Cirrhotic liver morphology with steatosis. Stigmata of portal hypertension manifested by a small splenorenal shunt. 4. A 1.1 cm hypodensity within the right renal upper pole is indeterminate, and could represent a complicated cyst or a small renal mass. Continued attention on surveillance imaging is suggested. Renal US 03/10/2023 IMPRESSION: 1.7 cm RIGHT renal lesion is at least a partially complex cystic lesion but may have a solid peripheral component. Renal neoplasm is not excluded. A renal protocol CT scan is recommended for better characterization. ALLERGIES: ALLERGIES Allergen Reactions Oseltamivir Vomiting, Other: See Comments got really sick // Tamiflu Amoxicillin-[place]* Diarrhea Sulfamethoxazole-Tr* GI Upset MEDICATIONS: Current Outpatient Medications Medication Sig allopurinol (ZYLOPRIM) 100 mg tablet Take 1 tablet by mouth once daily. venetoclax (VENCLEXTA) 100 mg tablet Take 4 tablets (400 mg) by mouth once daily. diphenoxylate-atropine (LOMOTIL) 2.5-0.025 mg per tablet Take 1 tablet by mouth four times a day as needed for diarrhea for up to 30 days. Blood-Glucose Sensor ([place] G7 SENSOR) liana as directed. ACETAMINOPHEN ORAL Take by mouth. MELATONIN ORAL Take by mouth at bedtime as needed. multivit-minerals/folic acid (CENTRUM MULTIGUMMIES ORAL) Take by mouth once daily. L gasseri/B bifidum/B longum (PROBIOTIC COLON CARE ORAL) Take by mouth once daily as needed. BASAGLAR KWIKPEN U-100 INSULIN 100 unit/mL (3 mL) Inject 30 Units subcutaneously every morning. (Patient taking differently: Inject 50 Units subcutaneously every morning.) insulin aspart U-100 (NOVOLOG FLEXPEN U-100 INSULIN) 100 unit/mL (3 mL) If Blood Glucose (mg/dL) is <110 Give 0 units 111-150 Give 0 units 151-200 Give 2 unit 201-250 Give 4 units 251-300 Give 6 units 301-350 Give 8 units 351-400 Give 10 units >400 Call physician. Insulin [place], Disposable, (BD ULTRA-FINE NAY PEN NEEDLE) 32 gauge x 5/32 Use as directed up to four times daily gabapentin (NEURONTIN) 100 mg capsule Take 1 capsule by mouth daily at bedtime for 30 days. (Patient taking differently: Take 100 mg by mouth three times a day.) rOPINIRole (REQUIP) 2 mg tablet Take 1 tablet by mouth daily at bedtime. Cholecalciferol, Vitamin D3, (VITAMIN D) 25 mcg (1,000 unit) cap Take 2 capsules by mouth once daily. atorvastatin (LIPITOR) 10 mg tablet Take 10 mg by mouth once daily. cetirizine (ZYRTEC) 10 mg tablet Take 10 mg by mouth once daily. No current facility-administered medications for this visit. HISTORIES PAST MEDICAL HISTORY Diagnosis Date Abdominal aortic aneurysm (HCC) Allergic rhinitis Biceps rupture, proximal 04/09/2014 Bicipital tenosynovitis 11/01/2013 Chronic pain COVID-19 06/11/2020 positive test 06/13/20 Depression 09/18/2020 Continue home dose of lexapro Elevated blood protein elevated MGUS Generalized anxiety disorder Glaucoma Hepatocellular carcinoma (HCC) Hypercholesteremia 09/17/2020 Hold Lipitor inpatient Hyperlipemia Hypertension Leukocytosis MRSA infection Multiple myeloma (HCC) 09/17/2020 6 Cycles RVD (February 2020 through August 2020) [place] Multiple myeloma not having achieved remission ([facility]) 02/04/2020 Neuropathy 08/20/2020 Continue home Gabapentin Obesity Restless leg syndrome 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 Protocol(s): 3422 1C Preparative regimen: Melphalan Mobilization regimen: plerixafor & neupogen Stem cell source: apheresis CD34 cell dose (x10e6/kg): 4.05 Date of transplant: 09/19/20 Type 2 diabetes (HCC) 08/20/2020 Takes metformin, Lantus, victoza & Farxiga Sliding Scale inpatient & Lantus Plan: -Endo following, recs in dc instructions for home Type II or unspecified type diabetes mellitus without mention of complication, uncontrolled PAST SURGICAL HISTORY Procedure Laterality Date EXTENSIVE FINGER SURGERY Right FOOT/TOES SURGERY PROC UNLISTED Left hammer toes and bunions HEPATECTOMY RESCJ TOTAL RIGHT LOBECTOMY 10/08/2022 lap right hepatectomy for T2Nx HCC LAPAROSCOPIC CHOLECYSTECTOMY 10/08/2022 LIVER BIOPSY PALATOP CL PALATE ATTACHMENT PHARYNGEAL FLAP age 5 PAST SURGICAL HISTORY OF MRSA cyst removed from face PAST SURGICAL HISTORY OF Cyst removed from mouth SHOULDER SURGERY HX Left tendon repair Social History Tobacco Use Smoking status: Former Current packs/day: 0.00 Average packs/day: 1 pack/day for 40.0 years (40.0 ttl pk-yrs) Types: Cigarettes Start date: 1977 Quit date: 2017 Years since quittin.8 Passive exposure: Past Smokeless tobacco: Never Tobacco comments: 03/30/2018 Vaping Use Vaping status: Never Used Substance Use Topics Alcohol use: Yes Comment: occassional Drug use: Yes Types: Marijuana Comment: THC edibles, 3x a week REVIEW OF SYSTEMS General: No weight loss, malaise or fevers. Genitourinary: See HPI The remainder of the ROS was reviewed and negative. PHYSICAL EXAMINATION There were no vitals taken for this visit. General: Well appearing, alert, in no acute distress, and well-hydrated, well nourished Abdominal: non-distended Genitourinary: MALE EXAM: Exam NOT Indicated Gloria Lopez APRN.HIM MANAGER PROBLEMS: Bosniak IIF renal cyst Renal US in 1 year and f/u with Binta Lantigua at [facility] with LUTS Will trial flomax, reviewed SE profile, discussed adding finasteride if needed. He will update me via [employer] regarding efficacy. By signing my name below, I, Ciro Thompson, attest that this documentation has been prepared under the direction and in the presence of Dr. Stevens Electronically signed, Jase Rootibe STAFF PHYSICIAN NOTE OF PERSONAL INVOLVEMENT IN CARE The above noted history, physical, assessment and plan were reviewed with the provider and critical portions of the H&P were confirmed. I evaluated and examined the patient and agree with the plan above and provided direct supervision of the above provider during this patient's care. Kelsi Stevens MD Medical Decision Making: Problems: Moderate: 2+ stable chronic illnesses Data: Unique test result(s) reviewed: 1 Risk: Moderate: Drug management Medical Decision Making Level: 4 - Moderate documented in this encounter [facility] 02-20-2024 Instructions Esther Portillo - 02/20/2024 3:28 PM EDT Continue Venclexta at 100mg daily for 1 additional week Increase to 200mg in 1 week - continue 200mg for 2 weeks RTC in 3 weeks Labs same day Continue allopurinol 100mg daily documented in this encounter [facility] 02-20-2024 History of Present illness Narrative Images from the original note were not included. NAME: Jon Bauer CLINIC NO.: [id number] DATE OF SERVICE: February 20, 2024 (Raz) Some elements in this clinic note that are critical to medical decision making have been carefully reviewed and included from a prior clinic note dated: February 03, 2024 (Raz) Additional Clinicians involved in Jon Bauer's care: Dr. Lomeli, Dr. Frankie Campbell DIAGNOSIS: Multiple myeloma followup ASSESSMENT: This is a 73 year old man diagnosed with an IgG lambda monoclonal gammopathy in 2019 and was then noted to have rising M-spike and PET scan documented a sternal lesion. 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 ISS and R-ISS stage II disease. He had a partial response to induction therapy and has recovered following Autologous stem cell infusion. Up to date on post transplant vaccinations. Mild thrombocytopenia - Stable for now. Additional medical issues include: - Immunodeficiency following HDSCT and patient will continue Acyclovir and post-transplant immunizations per Infectious Disease protocol - Renal failure is improving and we will continue monitoring - Neuropathy is stable - Diabetes mellitus managed by PCP is elevated from steroids. - Hepatocellular carcinoma discovered August 2022, resected October 2022. Initial M-Protein is 3.31 prior to Induction Current M-spike is 0.34 as of 06/09/2022 10/08/2022 - resection of Liver mass right lobe [id number] HCC, 3 cm, G2, + LVI . Will undergo serial observation. No current adjuvant therapy recommended. No recurrence on scans February 2023. Continues to have rising M-spike - repeat bone marrow biopsy shows recurrent myeloma 5 - 9%. Would consider adding Daratumumab but given patient's recurring MRSA skin infections, will hold on Daratumumab and knowing his original FISH showed t(11;14), will use venetoclax + low dose dex and consider adding proteosome inhibitor with it after initial ramp up. Liver remains clear of recurrence of HCC. 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 Stevens in January. PLAN: Continue Venclexta at 100mg daily for 1 additional week Increase to 200mg in 1 week - continue 200mg for 2 weeks RTC in 3 weeks Labs same day Continue allopurinol 100mg daily Keep follow up with urology in February need to order ultrasound kidney prior to that visit HPI: CASE HISTORY: Reverse Chronological Order 01/04/2024-Current - Venclexta 400mg daily - on hold 01/19-02/12 for neutropenia and knee surgery 01/02/2024 - MRI Liver: Cirrhotic liver morphology. A spontaneous splenorenal shunt is present and mild splenomegaly up to 14.2 cm are noted, compatible with portal hypertension. The portal veins are patent. There is no abdominal ascites. Table postsurgical changes from right posterior hepatectomy. No suspicious appearing liver mass identified. A 7 mm T2 hyperintense focus at the dome of the right hepatic lobe is unchanged from September 2022 and favored to represent a hemangioma. Stable-appearing Bosniak type I and type II cysts in both kidneys. Colonic diverticulosis. 10/06/2023 - BMBx: A-C. Bone marrow, aspirate smears, core biopsy, and clot section: - Plasma cell neoplasm, lambda monotypic (5-9% of total marrow cellularity). - Cellular bone marrow (40%) with trilineage hematopoiesis. - Stainable iron present. Comment: The patient is a 73-year-old male with IgG lambda plasma cell neoplasm, originally diagnosed in 2019, for which she had was received therapy as well as hepatocellular carcinoma, status post resection, presenting for restaging in the setting of increasing M protein concentration. Overall, the findings are diagnostic of recurrent/persistent plasma cell neoplasm, lambda monotypic. There is no immunophenotypic evidence of metastatic hepatocellular carcinoma. Subclassification of plasma cell neoplasms requires correlation with clinical, laboratory, and radiographic findings, as well as the pending cytogenetic and molecular genetic results. D. Peripheral blood smear: - Absolute neutropenia. - Normocytic anemia. - Thrombocytopenia 09/19/2023 - MRI Liver: No evidence of suspicious enhancing hepatic mass. Diffuse hepatic fatty infiltration. Mildly complex right renal cyst stable in size since 05/24/23 but demonstrates new thin septal enhancement (Bosniak IIF). Consider attention at interval follow-up. 05/24/2023 - MRI Liver: Postsurgical change as described. No LR-5/OPTN Class 5 lesions. 03/10/2023 - US Kidney Bladder: 1.7 cm RIGHT renal lesion is at least a partially complex cystic lesion but may have a solid peripheral component. Renal neoplasm is not excluded. 02/10/2023 - CT liver with IV contrast: Since 10/01/2022, interval partial right hepatectomy. No findings to suggest residual or recurrent disease. A 1.1 cm hypodensity within the right renal upper pole is indeterminate 11/24/2022-12/30/2023 - Rev maintenance 10/08/2022 - Resection of Liver mass right lobe [id number] HCC, 3 cm, G2, + LVI 06/28/2022 - Held Revlimid due to recurring infections. 07/30/2021 - Resumed Rev at 5mg daily due to thrombocytopenia 07/02/2021 - M-spike 0.36 12/26/2020 - Rx for Maintenance Rev 10mg daily 12/16/2020 - Hospitalization for SBO with intractable nausea 09/19/2020 - HDCT Auto transplant (D0) 08/24/2020 - Pretransplant testing revealed a 24-hour urine with 0.02 gm M spike. Serum M protein was 0.61, serum kappa light chains 15.3, serum lambda light chain 17.0, serum kappa/lambda ratio 0.90 (normal 0.26-1.65) 08/19/2020 - Bone marrow examination 40% cellular with less than 5% plasma cells and normal cytogenetics 02/18/2020-08/25/2020 - RVD 02/01/2020 - PET/CT: No FDG avid neoplastic process in the neck, chest, or A/P. EXTREMITIES/SKELETON: 1.2 cm mildly FDG-avid lytic lesion in the sternum with SUV max of 2.7, may represent a site of active myeloma. No FDG avid destructive osseous lesions elsewhere. Specifically, no hypermetabolic lesions in humeral heads or femurs. 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 06/08/2019 - Bone Survey: Lytic lesions involving bilateral humeral heads and distal right femur Updated Visit, February 20, 2024: Jon returns today for a follow up. His recovering well from knee surgery. He resumed Venclexta 100mg on 02/12 as scheduled. WBC has increased to 3.45, Hgb has decreased slightly - chemistries stable overall. Will increase Venclexta to 200mg in 1 week. Urology appointment rescheduled for 03/06. Updated Visit, February 03, 2024: Jon returns by himself for a follow up. He had 3 days of diarrhea earlier this week and is experiencing increasing knee/leg pain. He continues holding Venclexta to prepare for his arthroscopic knee surgery with Dr. Lorenzana on 02/05. He will resume treatment 1 week after his procedure. Updated Visit, January 20, 2024: Jon returns with Leisa for a follow up. Last night, he developed worsening abdominal pain, gas, and diarrhea. He admits it almost sent him to the ER. He is neutropenic today - will hold Venclexta. I will reduce his dose when he resumes after count recovery. Kidney function is stable, he endorses doing well with hydration. He also endorses fatigue, holding treatment will likely help fatigue improve. Updated Visit, January 10, 2024: Virtual Visit Jon presents today for a virtual visit. He discontinued Revlimid as instructed and started on Venclexta 100mg daily on 01/03. He endorses diarrhea since starting new treatment, although it is tolerable with use of imodium. Updated Visit, December 09, 2023: Jon returns today. After discussion with Dr. Osvaldo Moreira, it was recommended we change his treatment. He will continue Revlimid for now until a treatment plan is finalized. Diarrhea has improved with use of kefir. He endorses leg pain and fatigue with the hot weather. He has yet to see urology, appointment moved to January. Will repeat MRI liver - needs Rx for Xanax as he is claustrophobic. Updated Visit, October 14, 2023: Jon returns today for a follow up. He is joined by his daughter, Lynn, and granddaughters. I reviewed his BMBx,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 Bicipital tenosynovitis 11/01/2013 Chronic pain COVID-19 06/11/2020 positive test 06/13/20 Depression 09/18/2020 Continue home dose of lexapro Elevated blood protein elevated MGUS Generalized anxiety disorder Glaucoma Hepatocellular carcinoma (HCC) Hypercholesteremia 09/17/2020 Hold Lipitor inpatient Hyperlipemia Hypertension Leukocytosis MRSA infection Multiple myeloma (HCC) 09/17/2020 6 Cycles RVD (February 2020 through August 2020) in a [place] Multiple myeloma not having achieved remission ([facility]) 02/04/2020 Neuropathy 08/20/2020 Continue home Gabapentin Obesity Restless leg syndrome 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 Protocol(s): 3422 1C Preparative regimen: Melphalan Mobilization regimen: plerixafor & neupogen Stem cell source: apheresis CD34 cell dose (x10e6/kg): 4.05 Date of transplant: 09/19/20 Type 2 diabetes (HCC) 08/20/2020 Takes metformin, Lantus, victoza & Farxiga Sliding Scale inpatient & Lantus Plan: -Endo following, recs in dc instructions for home Type II or unspecified type diabetes mellitus without mention of complication, uncontrolled PAST SURGICAL HISTORY Procedure Laterality Date EXTENSIVE FINGER SURGERY Right FOOT/TOES SURGERY PROC UNLISTED Left hammer toes and bunions HEPATECTOMY RESCJ TOTAL RIGHT LOBECTOMY 10/08/2022 lap right hepatectomy for T2Nx HCC LAPAROSCOPIC CHOLECYSTECTOMY 10/08/2022 LIVER BIOPSY PALATOP CL PALATE ATTACHMENT PHARYNGEAL FLAP age 5 PAST SURGICAL HISTORY OF MRSA cyst removed from face PAST SURGICAL HISTORY OF Cyst removed from mouth SHOULDER SURGERY HX Left tendon repair Social History Tobacco Use Smoking status: Former Current packs/day: 0.00 Average packs/day: 1 pack/day for 40.0 years (40.0 ttl pk-yrs) Types: Cigarettes Start date: 1977 Quit date: 2017 Years since quittin.7 Passive exposure: Past Smokeless tobacco: Never Tobacco comments: 03/30/2018 Vaping Use Vaping status: Never Used Substance Use Topics Alcohol use: Yes Comment: occassional Drug use: Yes Types: Marijuana Comment: THC edibles, 3x a week FAMILY HISTORY Problem Relation Age of Onset Cancer Mother brain 76 y/o Heart disease Mother Hypertension Mother Diabetes Father Heart disease Father Hypertension Father Heart Attack Father Diabetes Sister other (atrial fib) Sister COPD Sister No Known Problems Sister other (polio) Maternal Grandfather Diabetes Paternal Grandmother No Known Problems Daughter I spent a total of 30 minutes on the date of service which included preparing to see the patient, [id number] patient care, completing clinical documentation, performing a medically appropriate examination, counseling and educating the patient/family/caregiver, ordering medications, tests, or procedures, independently interpreting results (not separately reported), communicating results to the patient/family/caregiver, and care coordination (not separately reported). Vimal Crandall MD, CPE Hematology and Oncology Services Provided at: [facility], [place], [place] Scribe Attestation: This note was scribed by Esther Portillo on February 20, 2024 under the direction and supervision of Dr. Vimal Crandall. I attest that all of the information documented is correct to the best of my knowledge. Provider Attestation: I, Vimal Crandall MD, attest that all information documented by the above scribe is correct, and was supervised by me and under my direction. CC: Dr. Letha [facility] Dr. Denis Lora documented in this encounter [facility] 02-14-2024 History of Present illness Narrative Images from the original note were not included. HISTORY OF PRESENT ILLNESS: Jon Bauer is an 73 y.o. @ male. 1st po x 8 days s/p LT knee partial medial meniscectomy 02/06/24. Patient states that he is doing well with improved pain since surgery. He is continuing to ice and use tylenol for pain. Sleeping in his bed. Ambulating well but taking stairs slow. Overall happy with surgery. REVIEW OF SYSTEMS: General: Denies fever, fatigue or weight loss Lungs: Denies SOB Cardio: Denies chest pain GI: Denies indigestion or abdominal pain Neuro: Denies numbness or tingling, denies new onset paralysis Musculoskeletal: ( see note) PHYSICAL EXAM: Left Knee Exam Left knee exam is normal. Tenderness Left knee tenderness location: Compartments soft. Range of Motion The patient has normal left knee ROM. Extension: 0 Flexion: 100 (tightness on terminal flexion) Other Erythema: absent Scars: present (Portals well healing, sutures removed, no erythema, drainge or discharge, no dehisence) Sensation: normal Pulse: present Swelling: mild Effusion: effusion (consistent with surgery) present Comments: Operative lower extremity was noted to be neurovascularly intact. Patient was able to motor feet, toes and ankles in all anatomic planes bilaterally with 5 out of 5 strength. Operative knee's patellar tracking was optimal and quad/ham strength was 5 out of 5 to operative lower extremity. There was no varus valgus, anterior-posterior, or rotatory instability noted to the operative knee. Swelling was well controlled, patella was not ballotable and compartments were soft to the operative lower extremity. Dorsalis pedis and posterior tibial pulses were present and equal bilaterally. There was no evidence of infection or ascending lymphangitis to operative lower extremity. Sensation to light touch was intact to all dermatomes to bilateral lower extremities. Negative Homans and negative Tommie were noted bilaterally to lower extremities. Incision was healing without evidence of infection Procedures IMAGING: ASSESSMENT: ICD-10-CM 1. Status post arthroscopy of left knee Z98.890 PLAN: 8 days s/p LT Knee Arthroscopy: left partial medial menisectomy. Plan: Discussed surgery and reviewed surgical images. I recommend no deep squatting or pivoting with operative knee. Continue working on ROM. He will follow up in 4 weeks for RCK. Questions answered in laymen terms at the bedside. The diagnosis, home exercise plan and any ongoing restrictions/ recommendations reviewed. If unable to be reached in office, I recommend evaluation at nearest Emergency Room if any symptoms worsened or new symptoms develop for requiring urgent evaluation. Taya Alexander APRN-LONA documented in this encounter [facility] 02-08-2024 Note [phone] [id number] 02-07-2024 Telephone encounter Note Spoke w/ pt who states took care of the written letter at his RV on Tuesday. Reports surgery went well yesterday. Arcelia Thomas RN [facility] Work Phone: 02-07-2024 Miscellaneous Notes Spoke w/ pt who states took care of the written letter at his RV on Tuesday. Reports surgery went well yesterday. Arcelia Thomas RN Pt states he needs written clearance from oncology before his knee surgery on Tuesday. Will bring the information w/ him to Tuesday's appointment. Arcelia Thomas, RN documented in this encounter [facility] 02-06-2024 Note [facility] SURGERY Clinical Discharge Summary PERSON INFORMATION Name JON BAUER Age 73 Years 1950 Sex MALE Language Djiboutian PCP LETHA BEST Marital Status Phone Med Service Ambulatory Surgery Acct# Arrival 02/06/2024 10:56:23 Visit Reason SURGERY - LEFT KNEE SCOPE Acuity LOS 013 00:13 Address: [address] [place] [address] Comment: PROVIDER INFORMATION VITALS INFORMATION Vital Sign Triage Latest Temp Oral Temp Temporal Temp Intravascular Temp Axillary Temp Rectal 02 Sat 98 % 92 % Respiratory Rate Peripheral Pulse Rate Apical Heart Rate Blood Pressure / 83 mmHg / 83 mmHg Comment: MEDICAL INFORMATION Allergy Info: Tamiflu; sulfamethoxazole-trimethoprim; amoxicillin-clavulanate Prescriptions Given: acetaminophen (acetaminophen 500 mg oral tablet) 2 tab(s) Oral (given by mouth) every day as needed for pain. ALPRAZolam (ALPRAZolam 0.5 mg oral tablet) 1 tab(s) Oral (given by mouth) 3 times per day as needed for anxiety. atorvastatin (atorvastatin 10 mg oral tablet) 1 tab(s) Oral (given by mouth) every day. bifidobacterium-lactobacillus (Probiotic Formula) 1 tab(s) Oral (given by mouth) every day. cetirizine (cetirizine 10 mg oral tablet) 1 tab(s) Oral (given by mouth) every day. cholecalciferol (Vitamin D3 1000 intl units oral capsule) 2 cap(s) Oral (given by mouth) every day. dulaglutide (Trulicity Pen 1.5 mg/0.5 mL subcutaneous solution) 0.5 Milliliter Subcutaneous (under the skin) every week. escitalopram (Lexapro 10 mg oral tablet) 1 tab(s) Oral (given by mouth) every day. fluticasone nasal (fluticasone 50 mcg/inh nasal spray) 1 spray(s) Nostril-Both every day. gabapentin (gabapentin 100 mg oral capsule) 1 cap(s) Oral (given by mouth) every day. insulin aspart (NovoLOG FlexPen 100 units/mL injectable solution) 10 unit(s) Subcutaneous (under the skin) once a day before breakfast. insulin aspart (NovoLOG FlexPen 100 units/mL injectable solution) 15 unit(s) Subcutaneous (under the skin) At bedtime. insulin aspart (NovoLOG FlexPen 100 units/mL injectable solution) 12 unit(s) Subcutaneous (under the skin) once a day before lunch. insulin glargine (Basaglar KwikPen 100 units/mL subcutaneous solution) 50 unit(s) Subcutaneous (under the skin) At bedtime. multivitamin (Vitamin D and K oral tablet) 1 tab(s) Oral (given by mouth) every day. rOPINIRole (rOPINIRole 2 mg oral tablet) 1 tab(s) Oral (given by mouth) every day. Template Non-Formulary (THC gummie) 1 gummie(s) Oral (given by mouth) as needed pain. venetoclax (Venclexta 100 mg oral tablet) 1 tab(s) Oral (given by mouth) every day. Medication List: Medications to Continue That Have Not Changed Other Medications acetaminophen (acetaminophen 500 mg oral tablet) 2 tab(s) Oral (given by mouth) every day as needed for pain. ALPRAZolam (ALPRAZolam 0.5 mg oral tablet) 1 tab(s) Oral (given by mouth) 3 times per day as needed for anxiety. atorvastatin (atorvastatin 10 mg oral tablet) 1 tab(s) Oral (given by mouth) every day. bifidobacterium-lactobacillus (Probiotic Formula) 1 tab(s) Oral (given by mouth) every day. cetirizine (cetirizine 10 mg oral tablet) 1 tab(s) Oral (given by mouth) every day. cholecalciferol (Vitamin D3 1000 intl units oral capsule) 2 cap(s) Oral (given by mouth) every day. dulaglutide (Trulicity Pen 1.5 mg/0.5 mL subcutaneous solution) 0.5 Milliliter Subcutaneous (under the skin) every week. escitalopram (Lexapro 10 mg oral tablet) 1 tab(s) Oral (given by mouth) every day. fluticasone nasal (fluticasone 50 mcg/inh nasal spray) 1 spray(s) Nostril-Both every day. gabapentin (gabapentin 100 mg oral capsule) 1 cap(s) Oral (given by mouth) every day. insulin aspart (NovoLOG FlexPen 100 units/mL injectable solution) 10 unit(s) Subcutaneous (under the skin) once a day before breakfast. insulin aspart (NovoLOG FlexPen 100 units/mL injectable solution) 15 unit(s) Subcutaneous (under the skin) At bedtime. insulin aspart (NovoLOG FlexPen 100 units/mL injectable solution) 12 unit(s) Subcutaneous (under the skin) once a day before lunch. insulin glargine (Basaglar KwikPen 100 units/mL subcutaneous solution) 50 unit(s) Subcutaneous (under the skin) At bedtime. multivitamin (Vitamin D and K oral tablet) 1 tab(s) Oral (given by mouth) every day. rOPINIRole (rOPINIRole 2 mg oral tablet) 1 tab(s) Oral (given by mouth) every day. Template Non-Formulary (THC gummie) 1 gummie(s) Oral (given by mouth) as needed pain. venetoclax (Venclexta 100 mg oral tablet) 1 tab(s) Oral (given by mouth) every day. Medications to Continue That Have Not Changed Other Medications acetaminophen (acetaminophen 500 mg oral tablet) 2 tab(s) Oral (given by mouth) every day as needed for pain. ALPRAZolam (ALPRAZolam 0.5 mg oral tablet) 1 tab(s) Oral (given by mouth) 3 times per day as needed for anxiety. atorvastatin (atorvastatin 10 mg oral tablet) 1 tab(s) Oral (given by mouth) every day. (more content not included)... [facility] 02-03-2024 Telephone encounter Note Post op pain rx. PDMP reviewed [facility] 02-03-2024 Miscellaneous Notes Post op pain rx. PDMP reviewed documented in this encounter [facility] 02-03-2024 Instructions Esther Portillo - 02/03/2024 10:15 AM EDT Resume Venclexta at 100 mg daily 1 week after surgery (02/13/2024) RTC in 3 weeks (02/19) Labs same day Continue allopurinol 100mg daily documented in this encounter [facility] 02-03-2024 History of Present illness Narrative Images from the original note were not included. NAME: Jon Bauer CLINIC NO.: [id number] DATE OF SERVICE: February 03, 2024 (Raz) Some elements in this clinic note that are critical to medical decision making have been carefully reviewed and included from a prior clinic note dated: January 20, 2024 (Raz) Additional Clinicians involved in Jon Bauer's care: Dr. Lomeli, Dr. Frankie Campbell DIAGNOSIS: Multiple myeloma followup ASSESSMENT: This is a 73 year old man diagnosed with an IgG lambda monoclonal gammopathy in 2019 and was then noted to have rising M-spike and PET scan documented a sternal lesion. 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 ISS and R-ISS stage II disease. He had a partial response to induction therapy and has recovered following Autologous stem cell infusion. Up to date on post transplant vaccinations. Mild thrombocytopenia - Stable for now. Additional medical issues include: - Immunodeficiency following HDSCT and patient will continue Acyclovir and post-transplant immunizations per Infectious Disease protocol - Renal failure is improving and we will continue monitoring - Neuropathy is stable - Diabetes mellitus managed by PCP is elevated from steroids. - Hepatocellular carcinoma discovered August 2022, resected October 2022. Initial M-Protein is 3.31 prior to Induction Current M-spike is 0.34 as of 06/09/2022 10/08/2022 - resection of Liver mass right lobe [id number] HCC, 3 cm, G2, + LVI . Will undergo serial observation. No current adjuvant therapy recommended. No recurrence on scans February 2023. Continues to have rising M-spike - repeat bone marrow biopsy shows recurrent myeloma 5 - 9%. Would consider adding Daratumumab but given patient's recurring MRSA skin infections, will hold on Daratumumab and knowing his original FISH showed t(11;14), will use venetoclax + low dose dex and consider adding proteosome inhibitor with it after initial ramp up. Liver remains clear of recurrence of HCC. 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 Stevens in January. PLAN: Resume Venclexta at 100 mg daily 1 week after surgery (02/13/2024) Will titrate up to full dose over next few visits. RTC in 3 weeks (02/19) Labs same day Continue allopurinol 100mg daily Keep follow up with urology in February need to order ultrasound kidney prior to that visit HPI: CASE HISTORY: Reverse Chronological Order 01/04/2024-Current - Venclexta 400mg daily - on hold since 01/19 for neutropenia and knee surgery 01/02/2024 - MRI Liver: Cirrhotic liver morphology. A spontaneous splenorenal shunt is present and mild splenomegaly up to 14.2 cm are noted, compatible with portal hypertension. The portal veins are patent. There is no abdominal ascites. Table postsurgical changes from right posterior hepatectomy. No suspicious appearing liver mass identified. A 7 mm T2 hyperintense focus at the dome of the right hepatic lobe is unchanged from September 2022 and favored to represent a hemangioma. Stable-appearing Bosniak type I and type II cysts in both kidneys. Colonic diverticulosis. 10/06/2023 - BMBx: A-C. Bone marrow, aspirate smears, core biopsy, and clot section: - Plasma cell neoplasm, lambda monotypic (5-9% of total marrow cellularity). - Cellular bone marrow (40%) with trilineage hematopoiesis. - Stainable iron present. Comment: The patient is a 73-year-old male with IgG lambda plasma cell neoplasm, originally diagnosed in 2019, for which she had was received therapy as well as hepatocellular carcinoma, status post resection, presenting for restaging in the setting of increasing M protein concentration. Overall, the findings are diagnostic of recurrent/persistent plasma cell neoplasm, lambda monotypic. There is no immunophenotypic evidence of metastatic hepatocellular carcinoma. Subclassification of plasma cell neoplasms requires correlation with clinical, laboratory, and radiographic findings, as well as the pending cytogenetic and molecular genetic results. D. Peripheral blood smear: - Absolute neutropenia. - Normocytic anemia. - Thrombocytopenia 09/19/2023 - MRI Liver: No evidence of suspicious enhancing hepatic mass. Diffuse hepatic fatty infiltration. Mildly complex right renal cyst stable in size since 05/24/23 but demonstrates new thin septal enhancement (Bosniak IIF). Consider attention at interval follow-up. 05/24/2023 - MRI Liver: Postsurgical change as described. No LR-5/OPTN Class 5 lesions. 03/10/2023 - US Kidney Bladder: 1.7 cm RIGHT renal lesion is at least a partially complex cystic lesion but may have a solid peripheral component. Renal neoplasm is not excluded. 02/10/2023 - CT liver with IV contrast: Since 10/01/2022, interval partial right hepatectomy. No findings to suggest residual or recurrent disease. A 1.1 cm hypodensity within the right renal upper pole is indeterminate 11/24/2022-12/30/2023 - Rev maintenance 10/08/2022 - Resection of Liver mass right lobe [id number] HCC, 3 cm, G2, + LVI . 06/28/2022 - Held Revlimid due to recurring infections. 07/30/2021 - Resumed Rev at 5mg daily due to thrombocytopenia. 07/02/2021 - M-spike 0.36 12/26/2020 - Rx for Maintenance Rev 10mg daily 12/16/2020 - Hospitalization for SBO with intractable nausea 09/19/2020 - HDCT Auto transplant (D0). 08/24/2020 - Pretransplant testing revealed a 24-hour urine with 0.02 gm M spike. Serum M protein was 0.61, serum kappa light chains 15.3, serum lambda light chain 17.0, serum kappa/lambda ratio 0.90 (normal 0.26-1.65) 08/19/2020 - Bone marrow examination 40% cellular with less than 5% plasma cells and normal cytogenetics 02/18/2020-08/25/2020 - RVD 02/01/2020 - PET/CT: No FDG avid neoplastic process in the neck, chest, or A/P. EXTREMITIES/SKELETON: 1.2 cm mildly FDG-avid lytic lesion in the sternum with SUV max of 2.7, may represent a site of active myeloma. No FDG avid destructive osseous lesions elsewhere. Specifically, no hypermetabolic lesions in humeral heads or femurs. 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 06/08/2019 - Bone Survey: Lytic lesions involving bilateral humeral heads and distal right femur Updated Visit, February 03, 2024: Jon returns by himself for a follow up. He had 3 days of diarrhea earlier this week and is experiencing increasing knee/leg pain. He continues holding Venclexta to prepare for his arthroscopic knee surgery with Dr. Lorenzana on 02/05. He will resume treatment 1 week after his procedure. Updated Visit, January 20, 2024: Jon returns with Leisa for a follow up. Last night, he developed worsening abdominal pain, gas, and diarrhea. He admits it almost sent him to the ER. He is neutropenic today - will hold Venclexta. I will reduce his dose when he resumes after count recovery. Kidney function is stable, he endorses doing well with hydration. He also endorses fatigue, holding treatment will likely help fatigue improve. Updated Visit, January 10, 2024: Virtual Visit Jon presents today for a virtual visit. He discontinued Revlimid as instructed and started on Venclexta 100mg daily on 01/03. He endorses diarrhea since starting new treatment, although it is tolerable with use of imodium. Updated Visit, December 09, 2023: Jon returns today. After discussion with Dr. Osvaldo Moreira, it was recommended we change his treatment. He will continue Revlimid for now until a treatment plan is finalized. Diarrhea has improved with use of kefir. He endorses leg pain and fatigue with the hot weather. He has yet to see urology, appointment moved to January. Will repeat MRI liver - needs Rx for Xanax as he is claustrophobic. Updated Visit, October 14, 2023: Jon returns today for a follow up. He is joined by his daughter, Lynn, and granddaughters. I reviewed his BMBx, confirmed relapse of multiple myeloma. Will discuss addition of Peace to Revlimid. He has been taking antibiotics again, is dealing with allergies and diarrhea. We discussed the importance of healthy gut bacteria through his diet. Updated Visit, September 15, 2023: Jon returns today and has another episode of facial MRSA abscess. This is healing but he had thrush and diarrhea and was pretty misearble. Held rev for a little bit and has resumed. M-spike continues to rise, will re-stage soon and plan for change in therapy. Updated Visit, August 18, 2023: Jon returns today for a follow up. He had surgery for trigger finger - pain is much better but he notes some stiffness. He has a follow up scheduled to determine his need for PT. He has restarted Revlimid. Platelets are 108 today. M-spike remains elevated. He has had problems regarding urination since his liver surgery in 10/2022. 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 Updated Visit, July 13, 2023: Jon returns today. RBC still low, 3.82 today. He is having surgery for trigger finger with Dr. Lorenzana, so he will hold Revlimid for 2 weeks - started hold on 07/11. Decrease dose of Revlimid was working, but needs more time off - will reassess 3 weeks after resuming. He saw his sign wirer yesterday, who adjusted his insulin. Updated Visit, June 15, 2023: Legs stronger, moving better and is walking more regularly. Trigger finger in his left hand getting worse and will need it released. Decreased dose of rev is working well. Blood sugars improved. Updated Visit, May 18, 2023: Jon is doing well and platelets are improved with lower dose revlimid. Continues follow up for HCC and with urology for the complex renal cyst. Overall has continued improvement with blood sugars. Updated Visit, April 20, 2023: Patient seen urologists that informed him of a complex cyst. He is taking Revlimid every other day, improvements are seen in labs. He has been taking insulin and is managing it better, labs confirm this. He has been having nerve issues, including restless leg syndrome preventing him from sleeping. He also mentions diarrhea, he believes to be from Jardiance. Updated Visit, March 23, 2023: Jon returns today for a follow up and endorses feeling normal. He states he is trying to stay active but takes a day off to rest. Ultrasound shows a 1.7 cm RIGHT renal lesion, at least a partially complex cystic lesion and should follow up with a CT scan. He has a follow up with Urology on April 05. He states he is attending congregation on Tuesday' but doesn't go often because he doesn't want to get sick being around a crowd. We discussed getting the flu vaccination and a COVID booster. Has been holding Revlimid because of cytopenias as directed and CBC pending today, M protien is pending. We reviewed labs, blood count has been low the last few weeks. I will have to call when the results come back. Updated Visit, February 16, 2023: Had MRSA again - has been on Bactrim for 2 weeks WBC is decreased. Platelets are decreased but stable. Reviewed scans with him. Updated Visit, January 19, 2023: Couldn't tolerate MR even with sedation. CT ordered. Continue current Rev as M-spike rise is slowing down Updated Visit, December 22, 2022: Doing much better with blood sugars. Leisa is preparing for the fair. Will adjust maintenance based on results of SPIEP. Updated Visit, November 24, 2022: Saw Dr. Almanza in follow up - will have next MRI with sedation in January for follow-up of hepatocellular carcinoma Eye infection and is on Keflex drops. Blood sugars still running high M-spike now 0.48 - will resume revlimid. Continues with restless leg and can't sleep at night. - is taking THC Gummies. Updated Visit, October 20, 2022: Jon is 72 and returns with Leisa - doing well. Will recheck myeloma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 multiple myeloma and recently had liver surgery due to liver cancer; he states 25% got out. SUBJECTIVE: MEDICATIONS: Current Outpatient Medications Medication Instructions acetaminophen (Tylenol) 500 MG tablet Take 2 by mouth as needed as directed Indications: pain allopurinol (ZYLOPRIM) 100 mg, Oral, Daily RT ALPRAZolam (XANAX) 0.5 mg, Oral, 3 times daily PRN atorvastatin (LIPITOR) 10 mg, Oral, Daily Basaglar KwikPen 45 Units, Subcutaneous, Nightly Cannabinoids (THC Free) 20 MG/ML liquid as directed Orally cetirizine (ZyrTEC) 10 MG tablet Oral cholecalciferol (Vitamin D-3) 25 MCG (1000 UT) capsule Oral Drug [place] Unifine Pentips 31G X 8 MM misc USE DIRECTED SIX TIMES DAILY fluticasone (Flonase) 50 MCG/ACT nasal spray 1 spray, Each Nostril, Daily gabapentin (NEURONTIN) 100 mg, Oral, 3 times daily Multiple Vitamins-Minerals (Centrum Adults) chewable tablet Oral NovoLOG FLEXPEN 10 Units, Subcutaneous, 3 times daily with meals rOPINIRole (REQUIP) 2 mg, Oral, Nightly Trulicity 1.5 MG/0.5ML solution pen-injector INJECT 1.5 mg SUBCUTANEOUSLY ONCE A WEEK Venetoclax 400 mg, Oral, Daily RT ALLERGIES: Allergies Allergen Reactions Amoxicillin-Pot Clavulanate Diarrhea Oseltamivir GI intolerance Sulfamethoxazole-Trimethoprim GI intolerance and Unknown Past Medical History: Diagnosis Date Abnormal liver enzymes Actinic keratosis Adult body mass index 36.0-36.9 Allergic rhinitis Atypical pneumonia BPPV (benign paroxysmal positional vertigo) Cigarette smoker Cleft palate Diabetes mellitus (CMS/HCC) Dietary counseling and surveillance Diverticulitis Diverticulosis of large intestine without perforation or abscess without bleeding Erectile dysfunction Foot pain Frontal sinusitis Gallstones Glaucoma (CMS/HCC) 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 Hx of bronchitis Hyperplastic polyp of sigmoid colon colon polyps, hyperplastic x2, sigmoid and rectume Hypertension (CMS/HCC) Hypokalemia Knee pain, bilateral Left inguinal hernia 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 (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/HCC) Low testosterone Lytic bone lesions on xray Malnutrition (CMS/HCC) Maxillary sinusitis Mixed hyperlipidemia (CMS/HCC) Monoclonal gammopathy of undetermined significance Myeloma (CMS/HCC) Obesity Right kidney mass keeping an eye on this ( [facility]) Stage 3 chronic kidney disease (HCC) (CMS/HCC) 11/24/2022 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 Lorenzana/LT MF, RF, and LF US GUIDED NEEDLE LIVER BIOPSY 08/20/2022 US GUIDED NEEDLE LIVER BIOPSY US GUIDED PERCUTANEOUS PLACEMENT 08/20/2022 US GUIDED PERCUTANEOUS PLACEMENT VARICOCELECTOMY REVIEW OF SYMPTOMS: 14 POINT OF SYSTEM REVIEWED AND NEGATIVE OBJECTIVE: Constitutional: Afebrile @ home; no weakness or night sweats SKIN: No change in skin color; no itching, rash or lesions; no hair loss; HEENT: No HAs or injury; no dizziness; No difficulty with vision; no eye pain, discharge or lesions; no hearing loss or difficulty; no nasal discharge, NECK: No pain, limitation of motion, lumps or swollen glands RESP: No cough, wheezing or difficulty breathing. No CP with breathing; CARDIO: No CP , SOB or fatigue, No edema, palpitations or dyspnea with exertion GI: No N/V/D or abd. pain; good appetite with no recent change. No heart burn, liver or gallbladder disease; no rectal bleeding or pain : No urinary pain , frequency or odor. MUSCULOSKELETAL: No muscle pain or cramps; no extremity weakness.No joint pain, stiffness, swelling or limitation of movement NEUROLOGY: No H/O seizures, stroke or fainting. No weakness, tremors. Hematology: No bleeding problems or excessive bruising ENDOCRINE: No increase in hunger, thirst or urination; admits compliance to medical management plan Feet: numbness tingling , ulcers or skin break Lab Results Component Value Date HGBA1C 9.7 02/02/2024 HGBA1C 7.8 10/14/2023 HGBA1C 8.8 05/18/2023 Lab Results Component Value Date GLU 396 02/02/2024 GLU 392 (H) 01/26/2024 GLU 341 (H) 01/20/2024 Visit Vitals Pulse 54 Resp 18 Comment: O2 SAT 98% Ht 5' 11 Wt 258 lb BMI 35.98 kg/m Smoking Status Former BSA 2.42 m ASSESSMENT AND PLAN: Assessment/Plan Diagnoses and all orders for this visit: Insulin long-term use ([facility]) Type 2 diabetes mellitus with hyperglycemia, with long-term current use of insulin ([facility]) - POCT glycosylated hemoglobin (Hb A1C) docked device - POCT glucose manually resulted We will continue with Basaglar 52 units, increase Humalog to 15-18-20 due to prepare for surgery, then go back to his regime 10 12-15 after surgery, and then he can start back Trulicity also. Hyperlipemia, mixed (CMS/HCC) Vitamin D deficiency Encounter for dietary consultation Class 2 obesity due to excess calories without serious comorbidity with body mass index (BMI) of 35.0 to 35.9 in adult Diet and exercise reviewed with the patient Follow up in about 4 months (around 06/03/2024). documented in this encounter [facility] 02-01-2024 Telephone encounter Note Pt states he needs written clearance from oncology before his knee surgery on Tuesday. Will bring the information w/ him to Tuesday's appointment. Arcelia Thomas RN [facility] 01-30-2024 Telephone encounter Note Pt notified and verbalizes understanding. Arcelia Thomas RN [facility] Work Phone: 01-30-2024 Miscellaneous Notes Pt notified and verbalizes understanding. Arcelia Thomas RN Call placed to pt. No answer. Message left requesting call back. Arcelia Thomas RN 5 pre 5 post please How many days prior to surgery should he hold and when should he resume postop? Arcelia Thomas RN Probably a reasonable thing to hold. Reviewed labs with Dr. Crandall, would like pt to start Venclexta but only 1 tab (100mg) daily. Reviewed with pt. Pt verbalized understanding but then informed nurse that he is getting arthroscopic knee surgery on 02/06/24. He states his surgeon thought he should hold the Venclexta for surgery. EMILIA: Please advise documented in this encounter [facility] 01-30-2024 Telephone encounter Note Call placed to pt. No answer. Message left requesting call back. Arcelia Thomas RN [facility] 01-30-2024 Telephone encounter Note 5 pre 5 post please [facility] 01-30-2024 Telephone encounter Note How many days prior to surgery should he hold and when should he resume postop? Arcelia Thomas RN [facility] 01-28-2024 Telephone encounter Note Probably a reasonable thing to hold. [facility] 01-27-2024 Telephone encounter Note Spoke with patient and states he was in to see Dr Best and she cleared him for surgery and Shirlene told him [facility] Work Phone: 01-27-2024 Miscellaneous Notes Spoke with patient and states he was in to see Dr Best and she cleared him for surgery and [facility] told him Brittnee from presurgery at [facility] called stating pts glucose level was 392 today and he will need medical clearance from his PCP before his surgery. Please advise. documented in this encounter [facility] 01-27-2024 Telephone encounter Note Brittnee from presurgery at [facility] called stating pts glucose level was 392 today and he will need medical clearance from his PCP before his surgery. Please advise. [facility] 01-27-2024 Note PAT reviewed by Dr. áVzquez. Medical clearance requested for blood glucose of 392 during PAT lab work. Zaida at Dr. Lorenzana's office made aware. [Electronically Signed on: 01/27/2024 11:31 EDT] Gorge Rae RN [Verified on: 01/27/2024 11:31 EDT] Gorge Rae RN [facility] 01-26-2024 Telephone encounter Note Reviewed labs with Dr. Crandall, would like pt to start Venclexta but only 1 tab (100mg) daily. Reviewed with pt. Pt verbalized understanding but then informed nurse that he is getting arthroscopic knee surgery on 02/06/24. He states his surgeon thought he should hold the Venclexta for surgery. EMILIA: Please advise [facility] 01-26-2024 History of Present illness Narrative Reviewed labs with Dr. Crandall, would like pt to start Venclexta but only 1 tab (100mg) daily. Reviewed with pt. Pt verbalized understanding but then informed nurse that he is getting arthroscopic knee surgery on 02/06/24. He states his surgeon thought he should hold the Venclexta for surgery. Will send in telephone encounter for further guidance from Dr. Crandall. Letha Solomon RN documented in this encounter [facility] 01-24-2024 History of Present illness Narrative Associated Problem(s): Hepatocellular carcinoma (CMS/HCC) Discovered 08/29 and resected 10/29. Dr Ortiz at [facility] took care of that. Images from the original note were not included. Jon Bauer is a 73 y.o. male presents with chief complaint of No chief complaint on file. HPI: Patient having left knee arthoscopic done on 02/05 . History of Present Illness The patient presents for evaluation of multiple medical concerns. He is under the care of Dr. Wright for multiple myeloma, which remains active. He underwent a bone marrow transplant in 2019 or 2020. He was previously on Revlimid chemotherapy, which was discontinued last month and replaced with venetoclax. However, due to abnormal lab results, venetoclax was also discontinued. He experienced severe diarrhea and stomach issues when he started venetoclax 400 mg daily, which also affected his blood sugar levels. Venetoclax was discontinued last week, and he may be restarted on venetoclax at a lower dose of 200 mg. He reports frequent fatigue due to chemotherapy. He is scheduled for further lab tests this . His recent MRI at [facility] showed no changes or masses in his liver. He has been receiving fluids twice a week until last week due to dehydration caused by diarrhea. He is not experiencing chest pain or shortness of breath. His blood sugar levels are elevated. He missed his insulin injection today, and his current blood sugar level is 339. His last A1c was 7.9. He is on a regimen of Trulicity 1.5 once a week, NovoLog sliding scale (10 at breakfast, 12 at lunch, 15 at dinner), and Basaglar 52 units in the evening. He has sinus drainage and takes Zyrtec. SUBJECTIVE: MEDICATIONS: Current Outpatient Medications Medication Instructions acetaminophen (Tylenol) 500 MG tablet Take 2 by mouth as needed as directed Indications: pain allopurinol (ZYLOPRIM) 100 mg, Oral, Daily RT ALPRAZolam (XANAX) 0.5 mg, Oral, 3 times daily PRN atorvastatin (LIPITOR) 10 mg, Oral, Daily Basaglar KwikPen 45 Units, Subcutaneous, Nightly Cannabinoids (THC Free) 20 MG/ML liquid as directed Orally cetirizine (ZyrTEC) 10 MG tablet Oral cholecalciferol (Vitamin D-3) 25 MCG (1000 UT) capsule Oral Drug [place] Unifine Pentips 31G X 8 MM misc USE DIRECTED SIX TIMES DAILY fluticasone (Flonase) 50 MCG/ACT nasal spray 1 spray, Each Nostril, Daily gabapentin (NEURONTIN) 100 mg, Oral, 3 times daily Multiple Vitamins-Minerals (Centrum Adults) chewable tablet Oral NovoLOG FLEXPEN 10 Units, Subcutaneous, 3 times daily with meals rOPINIRole (REQUIP) 2 mg, Oral, Nightly Trulicity 1.5 MG/0.5ML solution pen-injector INJECT 1.5 mg SUBCUTANEOUSLY ONCE A WEEK Venetoclax 400 mg, Oral, Daily RT I have reviewed and reconciled the history and medication list with the patient today. REVIEW OF SYMPTOMS: Review of Systems All other systems reviewed and are negative. OBJECTIVE: Visit Vitals BP 122/78 Pulse 69 Ht 5' 11.5 Wt 261 lb 12.8 oz SpO2 96% BMI 36.00 kg/m Smoking Status Former BSA 2.45 m Physical Exam Vitals and nursing note reviewed. Constitutional: Appearance: Normal appearance. HENT: Head: Normocephalic and atraumatic. Right Ear: Tympanic membrane normal. Left Ear: Tympanic membrane normal. Nose: Nose normal. Mouth/Throat: Mouth: Mucous membranes are moist. Pharynx: Oropharynx is clear. Cardiovascular: Rate and Rhythm: Normal rate and regular rhythm. Pulses: Normal pulses. Heart sounds: Normal heart sounds. Pulmonary: Effort: Pulmonary effort is normal. Comments: Some harsh breath sounds throughout, but moreson on the right. Good air exchange Musculoskeletal: Cervical back: Normal range of motion and neck supple. Neurological: Mental Status: He is alert. ASSESSMENT AND PLAN: Assessment & Plan 1. Hepatocellular Carcinoma. He reports that his recent MRI at [facility] showed no changes or recurrence of the liver mass. He is currently under the care of Dr. Mckeon at [facility] and Dr. Wright for chemotherapy management. Dr. Wright recently changed his chemotherapy regimen, and further adjustments may be made based on upcoming lab results. 2. Multiple Myeloma. He is under the care of Dr. Wright for multiple myeloma, which remains active. He had a bone marrow transplant in 2019 or 2020. His chemotherapy regimen was recently changed from Revlimid to venugle (400 mg daily), which caused severe diarrhea and elevated blood sugar levels. Dr. Wright has temporarily stopped the venugle and plans to reassess after upcoming lab results. If necessary, the dosage may be reduced to 200 mg daily. 3. Diabetes Mellitus. His blood sugar levels are currently high, with a recent reading of 339. His last A1c was 7.9. He is on a regimen of NovoLog (10 units at breakfast, 12 units at lunch, 15 units at dinner, plus sliding scale adjustments), Basaglar (52 units in the evening), and Trulicity (1.5 mg once a week). He missed a dose of Trulicity last weekend due to being out of medication while camping. He is advised to continue his current regimen and ensure he has an adequate supply of medications. 4. Aortic Aneurysm. There is a need to track down the latest information regarding his aortic aneurysm and confirm follow-up with the vascular specialist. It is noted that vascular is monitoring his aneurysm, but further details are required. In review of his chart, I see no evidence of AAA. 5. Knee Pain. He recently had an MRI on his knee, which showed significant fluid and arthritis. He is scheduled to follow up with Dr. Sifuentes for further evaluation and management. 6. Sinus Drainage. He experiences sinus drainage this time of year and takes Zyrtec for symptom relief. No further treatment is required at this time. Assessment/Plan Problem List Items Addressed This Visit Multiple myeloma not having achieved remission (CMS/HCC) Hypertension (CMS/HCC) Diabetic renal disease (CMS/HCC) Discussed importance of getting BS under control. Hepatocellular carcinoma (CMS/HCC) Discovered 08/29 and resected 10/29. Dr Ortiz at [facility] took care of that. Other Visit Diagnoses Preoperative clearance - Primary Patient is an acceptable risk for surgery but he is going to clear with his oncologist as well. EKG is unchanged from prior. They are performing at least 4 METS of physical activity at home. They understand there are always risks of surgery and anesthesia, but no further testing or treatment is needed for optimization prior to surgery. 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 HISTORY OF PRESENT ILLNESS: Jon Bauer is an 73 y.o. @ male. Chief complaint LT knee pain LT knee pain: here for MRI results [facility] 01/13/24 LT knee pain x 4 weeks after a fall (12/27/23). He reports a history of knee pain and injections years ago. He was standing at kitchen counter, pivoted and knee gave out. He admits pain and swelling over lateral knee. He is slow with sit to stand. Pain with pivoting, getting in and out of car, sitting and at HS. + wake at HS. He sleeps with a pillow under his knee. Pain 5/10 today, can go to 9-10/10 at times. Taking TY, using ice. Admits stiffness. Knee feels like it could give out. Denies locking or catching. Admits clicking Prior treatment: TYL, ice, CBD cream, XR [facility] 01/03/24, MRI [facility] 01/13/24 MEDICATION: Current Outpatient Medications on File Prior to Visit Medication Sig Dispense Refill acetaminophen (Tylenol) 500 MG tablet Take 2 by mouth as needed as directed Indications: pain ALPRAZolam (Xanax) 0.5 MG tablet Take 0.5 mg by mouth 3 (three) times a day as needed for anxiety atorvastatin (Lipitor) 10 MG tablet TAKE 1 TABLET BY MOUTH DAILY 90 tablet 4 Cannabinoids (THC Free) 20 MG/ML liquid as directed Orally cetirizine (ZyrTEC) 10 MG tablet Take by mouth cholecalciferol (Vitamin D-3) 25 MCG (1000 UT) capsule Take by mouth fluticasone (Flonase) 50 MCG/ACT nasal spray Administer 1 spray into each nostril Daily 48 g 1 gabapentin (Neurontin) 100 MG capsule TAKE 1 CAPSULE BY MOUTH THREE TIMES DAILY 90 capsule 3 insulin aspart (NovoLOG FLEXPEN) 100 UNIT/ML pen Inject 10 Units under the skin in the morning and 10 Units at noon and 10 Units in the evening. Inject with meals. 10 mL 3 insulin glargine (Basaglar KwikPen) 100 UNIT/ML pen Inject 45 Units under the skin at bedtime 14 each 0 Multiple Vitamins-Minerals (Centrum Adults) chewable tablet Chew rOPINIRole (Requip) 2 MG tablet Take 1 tablet (2 mg) by mouth at bedtime 90 tablet 1 Trulicity 0.75 MG/0.5ML solution pen-injector INJECT 0.75mg SUBCUTANEOUSLY weekly [DISCONTINUED] fluticasone (Flonase) 50 MCG/ACT nasal spray Administer 1 spray into each nostril in the morning. [DISCONTINUED] fluticasone (Flonase) 50 MCG/ACT nasal spray Administer 1 spray into each nostril Daily 48 g 1 No current facility-administered medications on file prior to visit. MEDICAL HISTORY: Past Medical History: Diagnosis Date Abnormal liver enzymes Actinic keratosis Adult body mass index 36.0-36.9 Allergic rhinitis Atypical pneumonia BPPV (benign paroxysmal positional vertigo) Cigarette smoker Cleft palate Diabetes mellitus (CMS/HCC) Dietary counseling and surveillance Diverticulitis Diverticulosis of large intestine without perforation or abscess without bleeding Erectile dysfunction Foot pain Frontal sinusitis Gallstones Glaucoma (CMS/HCC) H/O stem cell transplant ([facility]) 09/2020 Hx of bronchitis Hyperplastic polyp of sigmoid colon colon polyps, hyperplastic x2, sigmoid and rectume Hypertension (CMS/HCC) Hypokalemia Knee pain, bilateral Left inguinal hernia 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 (CMS/HCC) Low testosterone Lytic bone lesions on xray Malnutrition (CMS/HCC) Maxillary sinusitis Mixed hyperlipidemia (CMS/HCC) Monoclonal gammopathy of undetermined significance Myeloma (CMS/HCC) Obesity Right kidney mass keeping an eye on this ( [facility]) 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 Fever denies. Night sweats denies. ENT: Decreased hearing denies. Respiratory: Cough denies. Shortness of breath denies. Cardiovascular: Chest pain denies. Cyanosis denies. Irregular heartbeat denies. Gastrointestinal: Comments denies incontinence of stool . Nausea denies. Hematology: Bleeding problems denies. Genitourinary: Comments denies dribbling. Incontinence denies. Musculoskeletal: CommentsSee [facility] for details. Skin: Rash denies. Neurologic: Dizziness denies. Headache denies. Examination General Examination: GENERAL EXAMINATION in no acute distress, well developed, well nourished . HEART: no jugular venous distention . LUNGS: regular unlabored, normal effort . NEUROLOGIC: alert and oriented . PSYCH: oriented to person, place, time and situation . PHYSICAL EXAM: Ortho Exam LEFT KNEE ROM 0-95 Medial and lateral joint line tenderness Positive impingement medial and lateral Painful ROM Effusion IMAGING: January 02 x-rays AP weight-bearing bilateral knees lateral and sunrise of the left knee demonstrate neutral alignment bilateral knees slight narrowing of the medial compartment. No fractures identified. The patella is centered in the femoral trochlea. Impression: Mild arthritic changes left knee Jenaro Lorenzana D.O. I reviewed an MRI of the left knee [facility] dated January 13, 2024 there are tears of both the medial and lateral meniscus. There is loss of articular cartilage which appears more severe in the patellofemoral joint. There appears to be a small joint mouse behind the posterior cruciate ligament. The cruciate ligaments are intact no fractures are detected. ASSESSMENT: ICD-10-CM 1. Left knee pain, unspecified chronicity M25.562 2. Complex tear of medial meniscus of left knee as current injury, initial encounter S83.232A 3. Complex tear of lateral meniscus of left knee as current injury, initial encounter S83.272A 4. Primary osteoarthritis of left knee M17.12 PLAN: I reviewed MRI findings with the patient and discussed treatment options, answered questions. I discussed options of surgical and non surgical treatment. Risks/benefits of each and chances for success/ failure. Discussion included but was not limited to the risk of infection, blood clot, failure to improve and need for additional surgery. The patient was advised that surgery is not likely to make them pain free. I answered all of the patients questions. If symptoms are coming from the meniscus then surgery is likely to improve the pain but if the symptoms are coming from the arthritis then arthroscopy is not likely to improve the situation. I recommend a LT knee arthroscopy. The patient was instructed to beth the operative site with the word Yes prior to arriving at the hospital and the patient verbalized an understanding. The patient wants to proceed and informed consent is obtained. Dr. Lorenzana obtained history and examined the patient, I am acting as scribe for Dr. Lorenzana/fredy Lorenzana D.O. documented in this encounter [facility] 01-20-2024 Instructions Esther Portillo - 01/20/2024 2:09 PM EDT Hold Venclexta 400mg for 1 week Labs in 1 week Wait for results May resume Venclexta at 200mg daily or continue holding RTC with me in 2 weeks Labs same day Continue allopurinol 100mg daily documented in this encounter [facility] 01-20-2024 History of Present illness Narrative Images from the original note were not included. NAME: Jon Bauer CLINIC NO.: [id number] DATE OF SERVICE: January 20, 2024 (Raz) Some elements in this clinic note that are critical to medical decision making have been carefully reviewed and included from a prior clinic note dated: January 10, 2024 (Raz) Additional Clinicians involved in Jon Bauer's care: Dr. Lomeli, Dr. Frankie Campbell DIAGNOSIS: Multiple myeloma followup ASSESSMENT: This is a 73 year old man diagnosed with an IgG lambda monoclonal gammopathy in 2018 and was then noted to have rising M-spike and PET scan documented a sternal lesion. 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 ISS and R-ISS stage II disease. He had a partial response to induction therapy and has recovered following Autologous stem cell infusion. Up to date on post transplant vaccinations. Mild thrombocytopenia - Stable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 PROFILE/MOLECULAR DATA: 12/17/2019 - bone marrow biopsy and aspirate: Bone marrow, aspirate smear and core biopsy, with clot section and peripheral blood: -Involved by plasma cell neoplasm with 5 to 10% plasma cells. -Normocellular bone marrow 20% with trilineage hematopoiesis. -Stainable iron present. -Comment-the patient has a history of IgG lambda monoclonal protein. The bone marrow shows involvement by a plasma cell neoplasm with 3% plasma cells in the aspirate smear and 5 to 10% plasma cells by immunohistochemistry. Final classification of plasma cell neoplasms require correlation with additional clinical laboratory and/or radiologic findings. FISH for plasma cell neoplasm: Findings demonstrated plasma cell population with trisomy 9, trisomy 15 and gain of genetic material at the CCN D1 locus or trisomy 11. These findings are consistent with the presence of a plasma cell neoplasm and represent standard risk disease. Cytogenetics: Normal male karyotype 46, XY 20 REVIEW OF SYSTEMS Per HPI and otherwise negative by full review of organ systems. ECOG PERFORMANCE STATUS: 0 PHYSICAL EXAMINATION: Vitals: BP 184/82 Pulse 58 Temp (Src) 97.3 (Temporal) Resp 18 Wt 262 lb 2 oz (118.9kg) SpO2 98% Body surface area is 2.44 meters squared. Exam limited to gross visualization where appropriate. Gen.: This is an age-appropriate patient in no acute distress. Head: Appears atraumatic with no visible lesions. Eyes: Pupils equally round and reactive to light, extraocular muscles are intact. Neck: Supple. Respiratory: Appears to be respiring comfortably. Neurologic: Nonfocal to gross visualization. Alert and oriented 3. Psychiatric: No evidence of inappropriate anxiety or depression. Skin: Visible areas of skin without rash, lesions, wounds or petechiae. ALLERGIES: ALLERGIES Allergen Reactions Oseltamivir Vomiting, Other: See Comments got really sick // Tamiflu Amoxicillin-[place]* Diarrhea Sulfamethoxazole-Tr* GI Upset MEDICATIONS: allopurinol (ZYLOPRIM) 100 mg tablet Take 1 tablet by mouth once daily. venetoclax (VENCLEXTA) 100 mg tablet Take 4 tablets (400 mg) by mouth once daily. diphenoxylate-atropine (LOMOTIL) 2.5-0.025 mg per tablet Take 1 tablet by mouth four times a day as needed for diarrhea for up to 30 days. Blood-Glucose Sensor (DEXCOM G7 SENSOR) liana as directed. ACETAMINOPHEN ORAL Take by mouth. MELATONIN ORAL Take by mouth at bedtime as needed. multivit-minerals/folic acid (CENTRUM MULTIGUMMIES ORAL) Take by mouth once daily. L gasseri/B bifidum/B longum (PROBIOTIC COLON CARE ORAL) Take by mouth once daily as needed. BASAGLAR KWIKPEN U-100 INSULIN 100 unit/mL (3 mL) Inject 30 Units subcutaneously every morning. (Patient taking differently: Inject 50 Units subcutaneously every morning.) insulin aspart U-100 (NOVOLOG FLEXPEN U-100 INSULIN) 100 unit/mL (3 mL) If Blood Glucose (mg/dL) is <110 Give 0 units 111-150 Give 0 units 151-200 Give 2 unit 201-250 Give 4 units 251-300 Give 6 units 301-350 Give 8 units 351-400 Give 10 units >400 Call physician. Insulin [place], Disposable, (BD ULTRA-FINE NAY PEN NEEDLE) 32 gauge x 5/32 Use as directed up to four times daily gabapentin (NEURONTIN) 100 mg capsule Take 1 capsule by mouth daily at bedtime for 30 days. (Patient taking differently: Take 100 mg by mouth three times a day.) rOPINIRole (REQUIP) 2 mg tablet Take 1 tablet by mouth daily at bedtime. Cholecalciferol, Vitamin D3, (VITAMIN D) 25 mcg (1,000 unit) cap Take 2 capsules by mouth once daily. atorvastatin (LIPITOR) 10 mg tablet Take 10 mg by mouth once daily. cetirizine (ZYRTEC) 10 mg tablet Take 10 mg by mouth once daily. LABORATORY VALUES: WBC (k/uL) Date Value 01/20/2024 1.57 (L) RBC (m/uL) Date Value 01/20/2024 3.29 (L) Hemoglobin (g/dL) Date Value 01/20/2024 11.2 (L) Hematocrit (%) Date Value 01/20/2024 33.0 (L) MCV (fL) Date Value 01/20/2024 100.3 (H) MCH (pg) Date Value 01/20/2024 34.0 MCHC (g/dL) Date Value 01/20/2024 33.9 RDW-CV (%) Date Value 01/20/2024 14.9 Platelet Count (k/uL) Date Value 01/20/2024 88 (L) MPV (fL) Date Value 01/20/2024 8.8 (L) Glucose (mg/dL) Date Value 01/20/2024 341 (H) BUN (mg/dL) Date Value 01/20/2024 23 Creatinine (mg/dL) Date Value 01/20/2024 1.16 Sodium (mmol/L) Date Value 01/20/2024 139 Potassium (mmol/L) Date Value 01/20/2024 4.0 Chloride (mmol/L) Date Value 01/20/2024 104 CO2 (mmol/L) Date Value 01/20/2024 24 Protein, Total (g/dL) Date Value 01/20/2024 7.3 Albumin (g/dL) Date Value 01/20/2024 4.1 Calcium, Total (mg/dL) Date Value 01/20/2024 9.3 Alkaline Phosphatase (U/L) Date Value 01/20/2024 122 (H) Bilirubin, Total (mg/dL) Date Value 01/20/2024 0.7 AST (U/L) Date Value 01/20/2024 66 (H) ALT (U/L) Date Value 01/20/2024 66 (H) Cholesterol, Total (mg/dL) Date Value 01/19/2023 115 Triglyceride (mg/dL) Date Value 01/19/2023 232 (H) M-Protein Concentration Date Value 12/09/2023 0.76 g/dL 10/14/2023 0.70 g/dL 09/15/2023 0.75 g/dL 08/18/2023 0.74 g/dL 07/13/2023 0.64 g/dL 07/02/2021 0.36 gm/dL 06/04/2021 0.31 gm/dL 04/17/2021 0.35 gm/dL 02/26/2021 0.37 gm/dL 12/26/2020 0.62 gm/dL DIAGNOSIS: (C90.00) Multiple myeloma not having achieved remission (HCC) (primary encounter diagnosis) Plan: B2 MICROGLOBULIN, COMPLETE BLOOD COUNT AND DIFFERENTIAL, COMPREHENSIVE METABOLIC PANEL, LACTATE DEHYDROGENASE, PHOSPHORUS INORGANIC, PROTEIN ELECTROPHORESIS SERUM W/INTERP, MONOCLONAL PROTEIN, SERUM (BLOOD), URIC ACID, CALCIUM, IONIZED, KAPPA/ORTIZ,FREE,SER PAST MEDICAL HISTORY Diagnosis Date Abdominal aortic aneurysm (HCC) Allergic rhinitis Biceps rupture, proximal 04/09/2014 Bicipital tenosynovitis 11/01/2013 Chronic pain COVID-19 06/11/2020 positive test 06/13/20 Depression 09/18/2020 Continue home dose of lexapro Elevated blood protein elevated MGUS Generalized anxiety disorder Glaucoma Hepatocellular carcinoma (HCC) Hypercholesteremia 09/17/2020 Hold Lipitor inpatient Hyperlipemia Hypertension Leukocytosis MRSA infection Multiple myeloma (HCC) 09/17/2020 6 Cycles RVD (February 2020 through August 2020) in a [place] Multiple myeloma not having achieved remission ([facility]) 02/04/2020 Neuropathy 08/20/2020 Continue home Gabapentin Obesity Restless leg syndrome 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 Protocol(s): 3422 1C Preparative regimen: Melphalan Mobilization regimen: plerixafor & neupogen Stem cell source: apheresis CD34 cell dose (x10e6/kg): 4.05 Date of transplant: 09/19/20 Type 2 diabetes ([facility]) 08/20/2020 Takes metformin, Lantus, victoza & Farxiga Sliding Scale inpatient & Lantus Plan: -Endo following, recs in dc instructions for home Type II or unspecified type diabetes mellitus without mention of complication, uncontrolled PAST SURGICAL HISTORY Procedure Laterality Date EXTENSIVE FINGER SURGERY Right FOOT/TOES SURGERY PROC UNLISTED Left hammer toes and bunions HEPATECTOMY RESCJ TOTAL RIGHT LOBECTOMY 10/08/2022 lap right hepatectomy for T2Nx HCC LAPAROSCOPIC CHOLECYSTECTOMY 10/08/2022 LIVER BIOPSY PALATOP CL PALATE ATTACHMENT PHARYNGEAL FLAP age 5 PAST SURGICAL HISTORY OF MRSA cyst removed from face PAST SURGICAL HISTORY OF Cyst removed from mouth SHOULDER SURGERY HX Left tendon repair Social History Tobacco Use Smoking status: Former Current packs/day: 0.00 Average packs/day: 1 pack/day for 40.0 years (40.0 ttl pk-yrs) Types: Cigarettes Start date: 1977 Quit date: 2017 Years since quittin.7 Passive exposure: Past Smokeless tobacco: Never Tobacco comments: 03/30/2018 Vaping Use Vaping status: Never Used Substance Use Topics Alcohol use: Yes Comment: occassional Drug use: Yes Types: Marijuana Comment: THC edibles, 3x a week FAMILY HISTORY Problem Relation Age of Onset Cancer Mother brain 76 y/o Heart disease Mother Hypertension Mother Diabetes Father Heart disease Father Hypertension Father Heart Attack Father Diabetes Sister other (atrial fib) Sister COPD Sister No Known Problems Sister other (polio) Maternal Grandfather Diabetes Paternal Grandmother No Known Problems Daughter I spent a total of 30 minutes on the date of service which included preparing to see the patient, [id number] patient care, completing clinical documentation, performing a medically appropriate examination, counseling and educating the patient/family/caregiver, ordering medications, tests, or procedures, independently interpreting results (not separately reported), communicating results to the patient/family/caregiver, and care coordination (not separately reported). Vimal Crandall MD, CPE [facility] Provided at: [place], [place] Scribe Attestation: This note was scribed by Esther Portillo on January 20, 2024 under the direction and supervision of Dr. Vimal Crandall. I attest that all of the information documented is correct to the best of my knowledge. Provider Attestation: I, Vimal Crandall MD, attest that all information documented by the above scribe is correct, and was supervised by me and under my direction. CC: Dr. Letha Mor[facility] Dr. Denis Lora documented in this encounter [facility] 01-10-2024 Telephone encounter Note ORAL ANTI-CANCER AGENTS FOLLOW-UP PHONE CALL/VISIT Patient identified by name and date of . YES Patient is on cycle 1, week 1, day 7 of Venclexta for Multiple Myeloma. SYMPTOM ASSESSMENT Headache: Yes x 1 day. Relieved w/ Tylenol. Visual Changes: No Dizziness: No Do you have any periods of confusion? No Mood changes: No Mouth or throat pain: No Appetite: no changes in appetite, appetite fair Taste changes: No Nausea: Yes - Reports an upset stomach the first few days of treatment. Resolved w/o need for intervention. Vomiting: No Heartburn: No. Weight gain/loss: No Episodes of palpitations/chest discomfort/pressure/pain No Shortness of breath: No Cough: No Diarrhea: yes, intermittent. Relieved w/ imodium. Constipation: no Bladder/Urinary Changes: Increased output due to increased fluid intake. Pain: No=0 (pain 0 on a scale of 0-10). Fever: No Chills: No Cold sensitivity: No Numbness/weakness: Yes - intermittent tingling in his fingertips. Edema: Mild swelling in his ankles. Not a new symptom for pt. Skin changes: No Itching: No Yellowing of skin or eyes: No Musculoskeletal/joint changes/issues No Bleeding issues: No Activity Level (0-100%): Rates his fatigue 6.5/10. Do you need to take naps? No. Sleeps about 6 hours at night. Pt verbalizes correct dose and frequency of the Revlimid. Confirms that he is taking Allopurinol as well. Does the patient need interventions or same day appointment:NA. Pt in office for scheduled IV hydration. ADDITIONAL FOLLOW UP: The next outreach call is due on: Advised pt to call w/ any questions or concerns. and was scheduled NA The following lab tests are due: Labs collected today w/ IV start. Verified patient is aware of next appointment in the cancer center: Yes. Verified patient verbalized how to correctly refill the oral agent prescription. Yes Does the patient have any financial difficulties affording this medication? No Patient verbalizes understanding of when to seek Medical Attention? YES Patient verbalizes understanding of after-hours and weekend phone number? YES Patient verbalized importance of medication compliance in taking the oral agent as prescribed. Patient instructed to call if unable to comply. Arcelia Thomas RN [facility] Work Phone: 01-10-2024 Miscellaneous Notes ORAL ANTI-CANCER AGENTS FOLLOW-UP PHONE CALL/VISIT Patient identified by name and date of . YES Patient is on cycle 1, week 1, day 7 of Venclexta for Multiple Myeloma. SYMPTOM ASSESSMENT Headache: Yes x 1 day. Relieved w/ Tylenol. Visual Changes: No Dizziness: No Do you have any periods of confusion? No Mood changes: No Mouth or throat pain: No Appetite: no changes in appetite, appetite fair Taste changes: No Nausea: Yes - Reports an upset stomach the first few days of treatment. Resolved w/o need for intervention. Vomiting: No Heartburn: No. Weight gain/loss: No Episodes of palpitations/chest discomfort/pressure/pain No Shortness of breath: No Cough: No Diarrhea: yes, intermittent. Relieved w/ imodium. Constipation: no Bladder/Urinary Changes: Increased output due to increased fluid intake. Pain: No=0 (pain 0 on a scale of 0-10). Fever: No Chills: No Cold sensitivity: No Numbness/weakness: Yes - intermittent tingling in his fingertips. Edema: Mild swelling in his ankles. Not a new symptom for pt. Skin changes: No Itching: No Yellowing of skin or eyes: No Musculoskeletal/joint changes/issues No Bleeding issues: No Activity Level (0-100%): Rates his fatigue 6.5/10. Do you need to take naps? No. Sleeps about 6 hours at night. Pt verbalizes correct dose and frequency of the Revlimid. Confirms that he is taking Allopurinol as well. Does the patient need interventions or same day appointment:NA. Pt in office for scheduled IV hydration. ADDITIONAL FOLLOW UP: The next outreach call is due on: Advised pt to call w/ any questions or concerns. and was scheduled NA The following lab tests are due: Labs collected today w/ IV start. Verified patient is aware of next appointment in the cancer center: Yes. Verified patient verbalized how to correctly refill the oral agent prescription. Yes Does the patient have any financial difficulties affording this medication? No Patient verbalizes understanding of when to seek Medical Attention? YES Patient verbalizes understanding of after-hours and weekend phone number? YES Patient verbalized importance of medication compliance in taking the oral agent as prescribed. Patient instructed to call if unable to comply. Arcelia Thomas RN documented in this encounter [facility] 01-10-2024 Instructions Esther Portillo - 01/10/2024 1:40 PM EDT Continue Venclexta 400mg daily Continue allopurinol 100mg daily RTC with me in 1 week Labs same day documented in this encounter [facility] 01-10-2024 History of Present illness Narrative Images from the original note were not included. NAME: Jon Bauer [facility] NO.: [id number] DATE OF SERVICE: January 10, 2024 (Raz) Some elements in this clinic note that are critical to medical decision making have been carefully reviewed and included from a prior clinic note dated: December 09, 2023 (Raz) Additional Clinicians involved in Jon Bauer's care: Dr. Lomeli, Dr. Frankie Campbell VIRTUAL VISIT PROGRESS NOTE This is a virtual visit using [employer] Video Call. It required patient-provider interaction for the medical decision making as documented below. I have communicated my name and active licensure. The patient's identity and physical location were verified at the time of this visit. Either the patient or their legal food service representative has been informed of the risks and benefits of -- and alternatives to -- treatment through a remote evaluation and consents to proceed with the evaluation remotely. DIAGNOSIS: Multiple myeloma followup ASSESSMENT: This is a 73 year old man diagnosed with an IgG lambda monoclonal gammopathy in 2019 and was then noted to have rising M-spike and PET scan documented a sternal lesion. 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 ISS and R-ISS stage II disease. He had a partial response to induction therapy and has recovered following Autologous stem cell infusion. Up to date on post transplant vaccinations. Mild thrombocytopenia - Stable for now. Additional medical issues include: - Immunodeficiency following HDSCT and patient will continue Acyclovir and post-transplant immunizations per Infectious Disease protocol - Renal failure is improving and we will continue monitoring - Neuropathy is stable - Diabetes mellitus managed by PCP is elevated from steroids. - Hepatocellular carcinoma discovered August 2022, resected October 2022. Initial M-Protein is 3.31 prior to Induction Current M-spike is 0.34 as of 06/09/2022 10/08/2022 - resection of Liver mass right lobe [id number] HCC, 3 cm, G2, + LVI . Will undergo serial observation. No current adjuvant therapy recommended. No recurrence on scans February 2023. Continues to have rising M-spike - repeat bone marrow biopsy shows recurrent myeloma 5 - 9%. Would consider adding Daratumumab but given patient's recurring MRSA skin infections, will hold on Daratumumab and knowing his original FISH showed t(11;14), will use venetoclax + low dose dex and consider adding proteosome inhibitor with it after initial ramp up. Liver remains clear of recurrence of HCC. 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 Stevens in January. PLAN: Continue Venclexta 400mg daily Continue allopurinol 100mg daily RTC with me in 1 week Labs same day Keep follow up with urology in January need to order ultrasound kidney prior to that visit HPI: CASE HISTORY: Reverse Chronological Order 01/04/2024-Current - Start Venclexta 400mg daily 01/02/2024 - MRI Liver: Cirrhotic liver morphology. A spontaneous splenorenal shunt is present and mild splenomegaly up to 14.2 cm are noted, compatible with portal hypertension. The portal veins are patent. There is no abdominal ascites. Table postsurgical changes from right posterior hepatectomy. No suspicious appearing liver mass identified. A 7 mm T2 hyperintense focus at the dome of the right hepatic lobe is unchanged from September 2022 and favored to represent a hemangioma. Stable-appearing Bosniak type I and type II cysts in both kidneys. Colonic diverticulosis. 10/06/2023 - BMBx: A-C. Bone marrow, aspirate smears, core biopsy, and clot section: - Plasma cell neoplasm, lambda monotypic (5-9% of total marrow cellularity). - Cellular bone marrow (40%) with trilineage hematopoiesis. - Stainable iron present. Comment: The patient is a 73-year-old male with IgG lambda plasma cell neoplasm, originally diagnosed in 2019, for which she had was received therapy as well as hepatocellular carcinoma, status post resection, presenting for restaging in the setting of increasing M protein concentration. Overall, the findings are diagnostic of recurrent/persistent plasma cell neoplasm, lambda monotypic. There is no immunophenotypic evidence of metastatic hepatocellular carcinoma. Subclassification of plasma cell neoplasms requires correlation with clinical, laboratory, and radiographic findings, as well as the pending cytogenetic and molecular genetic results. D. Peripheral blood smear: - Absolute neutropenia. - Normocytic anemia. - Thrombocytopenia 09/19/2023 - MRI Liver: No evidence of suspicious enhancing hepatic mass. Diffuse hepatic fatty infiltration. Mildly complex right renal cyst stable in size since 05/24/23 but demonstrates new thin septal enhancement (Bosniak IIF). Consider attention at interval follow-up. 05/24/2023 - MRI Liver: Postsurgical change as described. No LR-5/OPTN Class 5 lesions. 03/10/2023 - US Kidney Bladder: 1.7 cm RIGHT renal lesion is at least a partially complex cystic lesion but may have a solid peripheral component. Renal neoplasm is not excluded. 02/10/2023 - CT liver with IV contrast: Since 10/01/2022, interval partial right hepatectomy. No findings to suggest residual or recurrent disease. A 1.1 cm hypodensity within the right renal upper pole is indeterminate 11/24/2022-12/30/2023 - Rev maintenance 10/08/2022 - Resection of Liver mass right lobe [id number] HCC, 3 cm, G2, + LVI . 06/28/2022 - Held Revlimid due to recurring infections. 07/30/2021 - Resumed Rev at 5mg daily due to thrombocytopenia. 07/02/2021 - M-spike 0.36 12/26/2020 - Rx for Maintenance Rev 10mg daily 12/16/2020 - Hospitalization for SBO with intractable nausea 09/19/2020 - HDCT Auto transplant (D0). 08/24/2020 - Pretransplant testing revealed a 24-hour urine with 0.02 gm M spike. Serum M protein was 0.61, serum kappa light chains 15.3, serum lambda light chain 17.0, serum kappa/lambda ratio 0.90 (normal 0.26-1.65) 08/19/2020 - Bone marrow examination 40% cellular with less than 5% plasma cells and normal cytogenetics 02/18/2020-08/25/2020 - RVD 02/01/2020 - PET/CT: No FDG avid neoplastic process in the neck, chest, or A/P. EXTREMITIES/SKELETON: 1.2 cm mildly FDG-avid lytic lesion in the sternum with SUV max of 2.7, may represent a site of active myeloma. No FDG avid destructive osseous lesions elsewhere. Specifically, no hypermetabolic lesions in humeral heads or femurs. 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 06/08/2019 - Bone Survey: Lytic lesions involving bilateral humeral heads and distal right femur Updated Visit, January 10, 2024: Virtual Visit Jon presents today for a virtual visit. He discontinued Revlimid as instructed and started on Venclexta 100mg daily on 01/03. He endorses diarrhea since starting new treatment, although it is tolerable with use of imodium. Updated Visit, December 09, 2023: Jon returns today. After discussion with Dr. Osvaldo Moreira, it was recommended we change his treatment. He will continue Revlimid for now until a treatment plan is finalized. Diarrhea has improved with use of kefir. He endorses leg pain and fatigue with the hot weather. He has yet to see urology, appointment moved to January. Will repeat MRI liver - needs Rx for Xanax as he is claustrophobic. Updated Visit, October 14, 2023: Jon returns today for a follow up. He is joined by his daughter, Lynn, and granddaughters. I reviewed his BMBx, confirmed relapse of multiple myeloma. Will discuss addition of Peace to Revlimid. He has been taking antibiotics again, is dealing with allergies and diarrhea. We discussed the importance of healthy gut bacteria through his diet. Updated Visit, September 15, 2023: Jon returns today and has another episode of facial MRSA abscess. This is healing but he had thrush and diarrhea and was pretty misearble. Held rev for a little bit and has resumed. M-spike continues to rise, will re-stage soon and plan for change in therapy. Updated Visit, August 18, 2023: Jon returns today for a follow up. He had surgery for trigger finger - pain is much better but he notes some stiffness. He has a follow up scheduled to determine his need for PT. He has restarted Revlimid. Platelets are 108 today. M-spike remains elevated. He has had problems regarding urination since his liver surgery in 10/2022. 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 Updated Visit, July 13, 2023: Jon returns today. RBC still low, 3.82 today. He is having surgery for trigger finger with Dr. Lorenzana, so he will hold Revlimid for 2 weeks - started hold on 07/11. Decrease dose of Revlimid was working, but needs more time off - will reassess 3 weeks after resuming. He saw his sign wirer yesterday, who adjusted his insulin. Updated Visit, June 15, 2023: Legs stronger, moving better and is walking more regularly. Trigger finger in his left hand getting worse and will need it released. Decreased dose of rev is working well. Blood sugars improved. Updated Visit, May 18, 2023: Jon is doing well and platelets are improved with lower dose revlimid. Continues follow up for HCC and with urology for the complex renal cyst. Overall has continued improvement with blood sugars. Updated Visit, April 20, 2023: Patient seen urologists that informed him of a complex cyst. He is taking Revlimid every other day, improvements are seen in labs. He has been taking insulin and is managing it better, labs confirm this. He has been having nerve issues, including restless leg syndrome preventing him from sleeping. He also mentions diarrhea, he believes to be from Jardiance. Updated Visit, March 23, 2023: Jon returns today for a follow up and endorses feeling normal. He states he is trying to stay active but takes a day off to rest. Ultrasound shows a 1.7 cm RIGHT renal lesion, at least a partially complex cystic lesion and should follow up with a CT scan. He has a follow up with Urology on April 05. He states he is attending congregation on but doesn't go often because he doesn't want to get sick being around a crowd. We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 Caitlin Geeta Nova [facility] 01-04-2024 Miscellaneous Notes I scheduled patient on 01/10/2024 & 01/12/2024 for labs at 2:15 pm, hydration at 2:30 pm. I put in appointment notes on 01/05/2024 to print & hand patient 3 & 01/11 appointments. Caitlin Geeta Nova Clerical: Pt will need to come in on Tuesday, 01/09 and , 01/11 for IVF and labs. Please schedule and give appointments to pt when here this . Thanks! Arcelia Thomas RN documented in this encounter [facility] 01-03-2024 Telephone encounter Note Clerical: Pt will need to come in on Tuesday, 01/09 and 01/11 for IVF and labs. Please schedule and give appointments to pt when here this . Thanks! Arcelia Thomas RN [facility] Work Phone: 01-03-2024 Telephone encounter Note Patient started/will start taking Venclexta on 01/04/24. Arcelia Thomas RN [facility] Work Phone: 01-03-2024 Miscellaneous Notes Patient started/will start taking Venclexta on 01/04/24. Arcelia Thomas, RN documented in this encounter [facility] 01-03-2024 History of Present illness Narrative ORAL ANTI-CANCER AGENTS EDUCATION patient here today for oral medication education of Venclexta for Multiple Myeloma Anticipated/Scheduled start date: 01/04/24 READINESS TO LEARN Cognitive Ability: Alert and oriented Motivation to Learn: Interested Family Support: High - Very involved in pt care Instruction Provided to: Patient and Spouse (on phone) Patient learns best by: Written Instruction - Hand-outs Verbal Instruction Multiple Methods Factors affecting learning: None Physical limitation affecting learning: None MANNING ASSESSMENT: 1.) Verified that patient knows that the oral agents are for cancer and are taken by mouth. Yes 2.) Medication review completed during visit. Yes 3.) Patient is able to swallow pills. Yes 4.) Patient is able to read the drug label/information. Yes 5.) Patient is able to open the medication bottles and packages. Yes 6.) Has patient taken other pills for cancer? YES, please explain: Revlimid & Dexamethasone 7.) Is patient experiencing any symptoms that would affect their ability to keep down pills, for example nausea or vomiting? No 8.) Verified that patient understands prescription delivery, benefit investigation and refill process. Yes DRUG-SPECIFIC EDUCATION: 1.) Verified patient knows the drug name. Yes 2.) Verified patient understands the dose and schedule of oral anti cancer agent. Yes 3.) Verified patient knows what to do if a medication dose is missed. Yes 4.) Verified patient understands where to store the drug. Yes 5.) Verified patient understands potential side effects and how to manage them. Yes 6.)Verified patient understands handling precautions of oral anti cancer agent. Yes 7.) Verified patient was given written instructions and understands when and whom to call with questions. Yes 8.) Verified patient understands where and how to return drug. Yes 9.) Verified patient received drug specific adult education handout and neutropenic wallet card Yes EVALUATE: The patient demonstrated an understanding of all the above education using the teach-back method. Yes Instructed to call us with any questions, concerns, and/or unresolved symptoms. Will continue to follow up and provide reinforcement of teaching topics as needed. Arcelia Thomas, RN documented in this encounter [facility] 01-03-2024 Miscellaneous Notes Addended by: MAEGAN NAVARRO on: 01/03/2024 03:34 PM Modules accepted: Orders documented in this encounter [facility] 01-03-2024 Note Addended by: MAEGAN NAVARRO on: 01/03/2024 03:34 PM Modules accepted: Orders [facility] Work Phone: 01-03-2024 History of Present illness Narrative Images from the original note were not included. HISTORY OF PRESENT ILLNESS: Jon Bauer is an 73 y.o. @ male. Chief complaint LT knee pain New problem: LT knee pain LT knee pain x 1 week after a fall (12/27/23). He reports a history of knee pain and injections years ago. He was standing at kitchen counter, pivoted an knee gave out. He admits pain and swelling over lateral knee. He is slow with sit to stand. Pain with pivoting, getting in and out fo car, sitting and at HS. + wake at HS. Pain 5/10 today, can go to 9-10/10. Taking TYL and using CBD cream, using ice. Admits stiffness. Knee feels like it could give out. Denies locking or catching. Prior treatment: TYL, ice, CBD cream MEDICATION: Current Outpatient Medications on File Prior to Visit Medication Sig Dispense Refill acetaminophen (Tylenol) 500 MG tablet Take 2 by mouth as needed as directed Indications: pain ALPRAZolam (Xanax) 0.5 MG tablet Take 0.5 mg by mouth 3 (three) times a day as needed for anxiety atorvastatin (Lipitor) 10 MG tablet TAKE 1 TABLET BY MOUTH DAILY 90 tablet 4 Cannabinoids (THC Free) 20 MG/ML liquid as directed Orally cetirizine (ZyrTEC) 10 MG tablet Take by mouth cholecalciferol (Vitamin D-3) 25 MCG (1000 UT) capsule Take by mouth fluticasone (Flonase) 50 MCG/ACT nasal spray Administer 1 spray into each nostril in the morning. gabapentin (Neurontin) 100 MG capsule TAKE 1 CAPSULE BY MOUTH THREE TIMES DAILY 90 capsule 3 guaiFENesin-codeine (Robitussin-AC) 100-10 MG/5ML syrup 5 mL insulin aspart (NovoLOG FLEXPEN) 100 UNIT/ML pen Inject 10 Units under the skin in the morning and 10 Units at noon and 10 Units in the evening. Inject with meals. 10 mL 3 insulin glargine (Basaglar KwikPen) 100 UNIT/ML pen Inject 45 Units under the skin at bedtime 14 each 0 Multiple Vitamins-Minerals (Centrum Adults) chewable tablet Chew Revlimid 2.5 MG capsule rOPINIRole (Requip) 2 MG tablet Take 1 tablet (2 mg) by mouth at bedtime 90 tablet 1 Trulicity 0.75 MG/0.5ML solution pen-injector INJECT 0.75mg SUBCUTANEOUSLY weekly No current facility-administered medications on file prior to visit. MEDICAL HISTORY: Past Medical History: Diagnosis Date Abnormal liver enzymes Actinic keratosis Adult body mass index 36.0-36.9 Allergic rhinitis Atypical pneumonia BPPV (benign paroxysmal positional vertigo) Cigarette smoker Cleft palate Diabetes mellitus (CMS/HCC) Diverticulitis Diverticulosis of large intestine without perforation or abscess without bleeding Erectile dysfunction Foot pain Frontal sinusitis Gallstones Glaucoma (CMS/HCC) 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 Hx of bronchitis Hyperplastic polyp of sigmoid colon colon polyps, hyperplastic x2, sigmoid and rectume Hypertension (CMS/HCC) Knee pain, bilateral Left inguinal hernia Low testosterone Lytic bone lesions on xray Maxillary sinusitis Mixed hyperlipidemia (CMS/HCC) Monoclonal gammopathy of undetermined significance Myeloma (CMS/HCC) Obesity Right kidney mass keeping an eye on this ( [facility]) 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 No fractures identified. The patella is centered in the femoral trochlea. Impression: Mild arthritic changes left knee Jenaro Lorenzana D.O. ASSESSMENT: ICD-10-CM 1. Left knee pain, unspecified chronicity M25.562 XR knee 3 views left 2. Primary osteoarthritis of left knee M17.12 3. Internal derangement of left knee M23.92 PLAN: I explained the diagnosis and reviewed treatment options. I answered all of the patient's questions. I recommend a MRI of the LT knee, follow up after MRI. Dr. Lorenzana obtained history and examined the patient, I am acting as scribe for Dr. Lorenzana/fredy Lorenzana D.O. documented in this encounter [facility] 01-02-2024 History of Present illness Narrative Radiology Service Progress Note PATIENT NAME: Jon Bauer DATE OF SERVICE: January 02, 2024 TIME: 11:06 AM PATIENT IDENTITY VERIFICATION COMPLETED USING TWO (2) IDENTIFIERS: Name and Date of confirmed by patient verbally. FALL SCREENING: Has the patient had 2 falls in the last year or 1 fall with injury or currently using an Ambulatory Assistive Device (Walker, Cane, Wheelchair, Crutches, etc.)? No PATIENT GENDER DATA: Male PATIENT RELEVANT IMPLANT DATA REVIEWED: Yes PATIENT PRESENTS WITH AN IMPLANTABLE OR ATTACHED BILLBOARD ERECTOR HELPER: No RADIOLOGY DEPARTMENT: MR; Exam(s) Completed: Body: Liver (routine) PERIPHERAL IV DATA: Site assessment: Clean,Dry and Intact, Site disposition Discontinued SIGNED BY: Machelle MANN mail room clerk January 02, 2024 11:06 AM Radiology Service Progress Note DATE OF SERVICE: January 02, 2024 TIME: 11:20 AM PATIENT WEIGHT: 261LBS PATIENT IDENTITY VERIFICATION COMPLETED USING TWO (2) STANDARD IDENTIFIERS: Name and Date of confirmed by patient verbally. FALL SCREENING: Has the patient had 2 falls in the last year or 1 fall with injury or currently using an Ambulatory Assistive Device (Walker, Cane, Wheelchair, Crutches, etc.)? Yes, Patient High Risk for Falls What interventions were put in place to prevent falls during this visit? Instructed Patient to Call for Help if Needed, Offered Assistance with Transfers/Clothing, Instructed Patient to Remain Seated (Not on Exam Table) Until Exam, and Increased Observations by Caregivers PATIENT GENDER DATA: Male ALLERGIES: Reviewed and updated CONTRAST ALLERGY: No EXAM: MRI - CONTRAST TYPE: GROUP I OR GROUP III RISK FACTORS: History of Diabetes Mellitus Liver CA CREATININE: Creatinine Date Value Ref Range Status 12/09/2023 1.15 0.73 - 1.22 mg/dL Final 10/14/2023 1.24 (H) 0.73 - 1.22 mg/dL Final 09/15/2023 1.17 0.73 - 1.22 mg/dL Final Estimated Glomerular Filtration Rate Date Value Ref Range Status 12/09/2023 68 >=60 mL/min/1.73m Final Comment: Estimated Glomerular Filtration Rate (eGFR) is calculated using the 2020 CKD-EPI creatinine equation. This equation utilizes serum creatinine, sex, and age as parameters. The creatinine assay has traceable calibration to isotope dilution-mass spectrometry. Refer to KDIGO guidelines for clinical interpretation. In patients with unstable renal function, e.g. those with acute kidney injury, the eGFR may not accurately reflect actual GFR. eGFR- Date Value Ref Range Status 07/02/2021 >60 Final P.O.C.T. RESULTS: POC done: Yes, See Lab Tab January 02, 2024 TREATMENT: N/A IV SITE: Ambulatory: A peripheral IV was started in the Left antecubital site with a Angio cath: 22 gauge. IV SITE APPEARANCE: Clean,Dry and Intact Dexcom CGM removed before scan SIGNATURE: Jose Hanson RN PATIENT NAME: Jon Bauer DATE: January 02, 2024 TIME: 11:20 AM documented in this encounter [facility] 12-30-2023 Telephone encounter Note Pt's plan of care discussed w/ Dr Crandall. Pt to start Venclexta day after first IV hydration (01/03.) Continue IV hydration & labs for the first couple weeks of treatment. Start Allopurinol today. Keep virtual follow up as scheduled on 01/09 w/ the possibility that this may change to an in person visit that same day. Pt notified of need for Allopurinol. Will be picking it up today from pharmacy. Will discuss f/u and additional hydration appointments at his education on 01/02. Arcelia Thomas RN [facility] Work Phone: 12-30-2023 Miscellaneous Notes Pt's plan of care discussed w/ Dr Crandall. Pt to start Venclexta day after first IV hydration (01/03.) Continue IV hydration & labs for the first couple weeks of treatment. Start Allopurinol today. Keep virtual follow up as scheduled on 01/09 w/ the possibility that this may change to an in person visit that same day. Pt notified of need for Allopurinol. Will be picking it up today from pharmacy. Will discuss f/u and additional hydration appointments at his education on 01/02. Arcelia Thomas RN Patient is scheduled accordingly. CIARA Jones Clerical: Please schedule pt for the following... 01/02 1 PM - IV hydration & Labs 2 PM - Chemo education 01/04 230 PM - IV Hydration & Labs *Pt is aware of the above as is Valentine. Arcelia Thomas RN Call placed to pt. No answer. Message left requesting call back. Arcelia Thomas RN Yes - but also would ask him to come in for some hydration as well as make sure he is on allopurinol and will need labs 2x / week when he starts - looking for tumor lysis. Include iPhos. Allopurinol sent here - so he can get labs, start Ventclx Would like labs and with hydration Emilia: Venclexta was approved. Do you wish to proceed? Arcelia Thomas RN Venclexta approved upon appeal. Prior authorization expires on 12/27/2024. Patient Co-pay - $85.00 if we are to proceed with treatment and can be filled at the [facility]. Chemo Education will need scheduled as well. Maegan Navarro RPh Appeal for venetoclax faxed as an urgent request 12/15. documented in this encounter [facility] 12-30-2023 Telephone encounter Note Patient is scheduled accordingly. CIARA Jones [facility] 12-30-2023 Telephone encounter Note Clerical: Please schedule pt for the following... Tuesday, 01/02 1 PM - IV hydration & Labs 2 PM - Chemo education , 01/04 230 PM - IV Hydration & Labs *Pt is aware of the above as is Valentine. Arcelia Thomas RN [facility] 12-30-2023 Telephone encounter Note Call placed to pt. No answer. Message left requesting call back. Arcelia Thomas RN [facility] 12-30-2023 Telephone encounter Note Yes - but also would ask him to come in for some hydration as well as make sure he is on allopurinol and will need labs 2x / week when he starts - looking for tumor lysis. Include iPhos. Allopurinol sent here - so he can get labs, start Ventclx Would like labs and with hydration [facility] 12-29-2023 Telephone encounter Note Emilia: Venclexta was approved. Do you wish to proceed? Arcelia Thomas RN [facility] 12-29-2023 Telephone encounter Note Venclexta approved upon appeal. Prior authorization expires on 12/27/2024. Patient Co-pay - $85.00 if we are to proceed with treatment and can be filled at the [facility]. Chemo Education will need scheduled as well. Maegan Navarro RPh [facility] Work Phone: 12-19-2023 History of Present illness Narrative Chart Reviewed Patient's name appears on the [facility] First Time Oral Chemo Treatment Report. SW completed a chart review. SW will plan to meet with Patient at future appointment to assess for any psychosocial needs. EVANGELIST Alvares Goals of Care Advance Directives are on file. SIGNATURE: HUGH Alvares PATIENT NAME: Jon Bauer DATE: December 19, 2023 TIME: 3:02 PM PAGER/CONTACT #: documented in this encounter [facility] 12-16-2023 Telephone encounter Note Appeal for venetoclax faxed as an urgent request 12/15. [facility] Work Phone: 12-13-2023 Telephone encounter Note Ambulatory Pharmacy Prior Authorization Note Provider Intervention Required?: No- Pharmacy completed on your behalf. Rx Plan: [facility]: [id number] Cover My Meds [place]: [id number] Determination: Denied PA Denied because: non-FDA approved indication Prior Authorization/Case #: Prior Authorization Expiration: Time to PA Submission in CMM: 30 min Time to PA Determination in CMM: 1 day Additional Information: appeal process initiated For questions relating to this submission, please contact [facility] at [phone] [facility] Work Phone: 12-13-2023 Miscellaneous Notes Ambulatory Pharmacy Prior Authorization Note Provider Intervention Required?: No- Pharmacy completed on your behalf. Rx Plan: [facility]: [id number] Cover My Meds [place]: [id number] Determination: Denied PA Denied because: non-FDA approved indication Prior Authorization/Case #: Prior Authorization Expiration: Time to PA Submission in CMM: 30 min Time to PA Determination in CMM: 1 day Additional Information: appeal process initiated For questions relating to this submission, please contact [facility] at [phone] documented in this encounter [facility] 12-09-2023 Instructions Esther Short - 12/09/2023 11:46 AM EDT Continue Revlimid MRI liver when available Virtual visit in 2 weeks to discuss myeloma treatment documented in this encounter [facility] 12-09-2023 History of Present illness Narrative Images from the original note were not included. NAME: Jon Bauer [facility] NO.: [id number] DATE OF SERVICE: December 09, 2023 ([email or web address]) Some elements in this clinic note that are critical to medical decision making have been carefully reviewed and included from a prior clinic note dated: October 14, 2023 (Raz) Additional Clinicians involved in Jon Bauer's care: Dr. Lomeli, Dr. Frankie Campbell DIAGNOSIS: Multiple myeloma followup ASSESSMENT: This is a 73 year old man diagnosed with an IgG lambda monoclonal gammopathy in 2019 and was then noted to have rising M-spike and PET scan documented a sternal lesion. 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 ISS and R-ISS stage II disease. He had a partial response to induction therapy and has recovered following Autologous stem cell infusion. Up to date on post transplant vaccinations. Mild thrombocytopenia - Stable for now. Additional medical issues include: - Immunodeficiency following HDSCT and patient will continue Acyclovir and post-transplant immunizations per Infectious Disease protocol - Renal failure is improving and we will continue monitoring - Neuropathy is stable - Diabetes mellitus managed by PCP is elevated from steroids. - Hepatocellular carcinoma discovered August 2022, resected October 2022. Initial M-Protein is 3.31 prior to Induction Current M-spike is 0.34 as of 06/09/2022 10/08/2022 - resection of Liver mass right lobe [id number] HCC, 3 cm, G2, + LVI . Will undergo serial observation. No current adjuvant therapy recommended. No recurrence on scans February 2023. Continues to have rising M-spike - repeat bone marrow biopsy shows recurrent myeloma 5 - 9%. Would consider adding Daratumumab but given patient's recurring MRSA skin infections, will hold on Daratumumab and knowing his original FISH showed t(11;14), will use venetoclax + low dose dex and consider adding proteosome inhibitor with it after initial ramp up. Liver remains clear of recurrence of HCC. 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 Stevens in January. PLAN: Continue Revlimid MRI liver when available Virtual visit in 2 weeks to discuss myeloma treatment Keep follow up with urology in January May need to order ultrasound kidney prior to that visit HPI: CASE HISTORY: Reverse Chronological Order 10/06/2023 - BMBx: A-C. Bone marrow, aspirate smears, core biopsy, and clot section: - Plasma cell neoplasm, lambda monotypic (5-9% of total marrow cellularity). - Cellular bone marrow (40%) with trilineage hematopoiesis. - Stainable iron present. Comment: The patient is a 73-year-old male with IgG lambda plasma cell neoplasm, originally diagnosed in 2019, for which she had was received therapy as well as hepatocellular carcinoma, status post resection, presenting for restaging in the setting of increasing M protein concentration. Overall, the findings are diagnostic of recurrent/persistent plasma cell neoplasm, lambda monotypic. There is no immunophenotypic evidence of metastatic hepatocellular carcinoma. Subclassification of plasma cell neoplasms requires correlation with clinical, laboratory, and radiographic findings, as well as the pending cytogenetic and molecular genetic results. D. Peripheral blood smear: - Absolute neutropenia. - Normocytic anemia. - Thrombocytopenia 09/19/2023 - MRI Liver: No evidence of suspicious enhancing hepatic mass. Diffuse hepatic fatty infiltration. Mildly complex right renal cyst stable in size since 05/24/23 but demonstrates new thin septal enhancement (Bosniak IIF). Consider attention at interval follow-up. 05/24/2023 - MRI Liver: Postsurgical change as described. No LR-5/OPTN Class 5 lesions. 03/10/2023 - US Kidney Bladder: 1.7 cm RIGHT renal lesion is at least a partially complex cystic lesion but may have a solid peripheral component. Renal neoplasm is not excluded. 02/10/2023 - CT liver with IV contrast: Since 10/01/2022, interval partial right hepatectomy. No findings to suggest residual or recurrent disease. A 1.1 cm hypodensity within the right renal upper pole is indeterminate 11/24/2022 - Resumed Rev maint. 10/08/2022 - Resection of Liver mass right lobe [id number] HCC, 3 cm, G2, + LVI . 06/28/2022 - Held Revlimid due to recurring infections. 07/30/2021 - Resumed Rev at 5mg daily due to thrombocytopenia. 07/02/2021 - M-spike 0.36 12/26/2020 - Rx for Maintenance Rev 10mg daily 12/16/2020 - Hospitalization for SBO with intractable nausea 09/19/2020 - HDCT Auto transplant (D0). 08/24/2020 - Pretransplant testing revealed a 24-hour urine with 0.02 gm M spike. Serum M protein was 0.61, serum kappa light chains 15.3, serum lambda light chain 17.0, serum kappa/lambda ratio 0.90 (normal 0.26-1.65) 08/19/2020 - Bone marrow examination 40% cellular with less than 5% plasma cells and normal cytogenetics 02/18/2020-08/25/2020 - RVD 02/01/2020 - PET/CT: No FDG avid neoplastic process in the neck, chest, or A/P. EXTREMITIES/SKELETON: 1.2 cm mildly FDG-avid lytic lesion in the sternum with SUV max of 2.7, may represent a site of active myeloma. No FDG avid destructive osseous lesions elsewhere. Specifically, no hypermetabolic lesions in humeral heads or femurs. 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 06/08/2019 - Bone Survey: Lytic lesions involving bilateral humeral heads and distal right femur Updated Visit, December 09, 2023: Jon returns today. After discussion with Dr. Osvaldo Moreira, it was recommended we change his treatment. He will continue Revlimid for now until a treatment plan is finalized. Diarrhea has improved with use of kefir. He endorses leg pain and fatigue with the hot weather. He has yet to see urology, appointment moved to January. Will repeat MRI liver - needs Rx for Xanax as he is claustrophobic. Updated Visit, October 14, 2023: Jon returns today for a follow up. He is joined by his daughter, Lynn, and granddaughters. I reviewed his BMBx, confirmed relapse of multiple myeloma. Will discuss addition of Peace to Revlimid. He has been taking antibiotics again, is dealing with allergies and diarrhea. We discussed the importance of healthy gut bacteria through his diet. Updated Visit, September 15, 2023: Jon returns today and has another episode of facial MRSA abscess. This is healing but he had thrush and diarrhea and was pretty misearble. Held rev for a little bit and has resumed. M-spike continues to rise, will re-stage soon and plan for change in therapy. Updated Visit, August 18, 2023: Jon returns today for a follow up. He had surgery for trigger finger - pain is much better but he notes some stiffness. He has a follow up scheduled to determine his need for PT. He has restarted Revlimid. Platelets are 108 today. M-spike remains elevated. He has had problems regarding urination since his liver surgery in 10/2022. 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 Updated Visit, July 13, 2023: Jon returns today. RBC still low, 3.82 today. He is having surgery for trigger finger with Dr. Lorenzana, so he will hold Revlimid for 2 weeks - started hold on 07/11. Decrease dose of Revlimid was working, but needs more time off - will reassess 3 weeks after resuming. He saw his sign wirer yesterday, who adjusted his insulin. Updated Visit, June 15, 2023: Legs stronger, moving better and is walking more regularly. Trigger finger in his left hand getting worse and will need it released. Decreased dose of rev is working well. Blood sugars improved. Updated Visit, May 18, 2023: Jon is doing well and platelets are improved with lower dose revlimid. Continues follow up for HCC and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 February 08, 2020: Jon Bauer is a 69 year old male seen for a monoclonal gammopathy found on routine labs. The patient was found to have a monoclonal gammopathy of (IgG) 3.3 gm with lambda specificity noted in Dr. BALDWIN's notes from 11/29/2018. 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 A PET/CT wich showed only a sternal lesion with uptake FDG with SUV 2.7 and no uptake in either femur or humeral heads. Findings are consistent with multiple myeloma and we will proceed with induction therapy. I sat with him and his Leisa and extensively reviewed the treatmtent plan as well as the risks and benefits. I anticipate 8-10 cycles of induction. I will discuss HCT with them at their next visit so as to not overwhelm them. He has mild neuropathy from poorly controlled diabetes and coronary artery calcification but otherwise has a well preserved performance status and could be appropriate despite being older than 65. PATHOLOGIC PROFILE/MOLECULAR DATA: 12/17/2019 - bone marrow biopsy and aspirate: Bone marrow, aspirate smear and core biopsy, with clot section and peripheral blood: -Involved by plasma cell neoplasm with 5 to 10% plasma cells. -Normocellular bone marrow 20% with trilineage hematopoiesis. -Stainable iron present. -Comment-the patient has a history of IgG lambda monoclonal protein. The bone marrow shows involvement by a plasma cell neoplasm with 3% plasma cells in the aspirate smear and 5 to 10% plasma cells by immunohistochemistry. Final classification of plasma cell neoplasms require correlation with additional clinical laboratory and/or radiologic findings. FISH for plasma cell neoplasm: Findings demonstrated plasma cell population with trisomy 9, trisomy 15 and gain of genetic material at the CCN D1 locus or trisomy 11. These findings are consistent with the presence of a plasma cell neoplasm and represent standard risk disease. Cytogenetics: Normal male karyotype 46, XY 20 REVIEW OF SYSTEMS Per HPI and otherwise negative by full review of organ systems. ECOG PERFORMANCE STATUS: 0 PHYSICAL EXAMINATION: Vitals: BP 159/76 Pulse 82 Temp (Src) 97.1 (Temporal) Resp 18 Wt 258 lb 6.1 oz (117.2kg) SpO2 96% Body surface area is 2.42 meters squared. Exam limited to gross visualization where appropriate. Gen.: This is an age-appropriate patient in no acute distress. Head: Appears atraumatic with no visible lesions. Eyes: Pupils equally round and reactive to light, extraocular muscles are intact. Neck: Supple. Respiratory: Appears to be respiring comfortably. Neurologic: Nonfocal to gross visualization. Alert and oriented 3. Psychiatric: No evidence of inappropriate anxiety or depression. Skin: Visible areas of skin without rash, lesions, wounds or petechiae. ALLERGIES: ALLERGIES Allergen Reactions Amoxicillin-Pot Cla* Diarrhea Oseltamivir Other: See Comments Sulfamethoxazole-Tr* GI Upset, Unknown MEDICATIONS: doxycycline monohydrate (MONODOX) 100 mg capsule TAKE 1 CAPSULE BY MOUTH TWICE DAILY (IN THE MORNING BEFORE bedtime) FOR 10 DAYS TAKE WITH EIGHT OUNCE OF water, do not lie down for 30 MINUTES after REVLIMID 2.5 mg capsule TAKE 1 CAPSULE BY MOUTH 1 TIME A DAY mupirocin (BACTROBAN) 2 % ointment APPLY TO THE AFFECTED AREA(S) TWICE DAILY for 2-3 weeks Blood-Glucose Sensor (DEXCOM G7 SENSOR) liana as directed. empagliflozin (JARDIANCE) 10 mg tablet Take 10 mg by mouth daily with breakfast. ACETAMINOPHEN ORAL Take by mouth. MELATONIN ORAL Take by mouth. multivit-minerals/folic acid (CENTRUM MULTIGUMMIES ORAL) Take by mouth. cholecalciferol, vitD3,/vit K2 (VITAMIN D3-VITAMIN K2 ORAL) Take by mouth. L gasseri/B bifidum/B longum (PROBIOTIC COLON CARE ORAL) Take by mouth. insulin aspart U-100 (NOVOLOG FLEXPEN U-100 INSULIN) 100 unit/mL (3 mL) If Blood Glucose (mg/dL) is <110 Give 0 units 111-150 Give 0 units 151-200 Give 2 unit 201-250 Give 4 units 251-300 Give 6 units 301-350 Give 8 units 351-400 Give 10 units >400 Call physician. Insulin [place], Disposable, (BD ULTRA-FINE NAY PEN NEEDLE) 32 gauge x 5/32 Use as directed up to four times daily gabapentin (NEURONTIN) 100 mg capsule Take 1 capsule by mouth daily at bedtime for 30 days. (Patient taking differently: Take 100 mg by mouth three times a day.) rOPINIRole (REQUIP) 2 mg tablet Take 1 tablet by mouth daily at bedtime. Cholecalciferol, Vitamin D3, (VITAMIN D) 25 mcg (1,000 unit) cap Take 2 capsules by mouth once daily. atorvastatin (LIPITOR) 10 mg tablet Take 10 mg by mouth once daily. cetirizine (ZYRTEC) 10 mg tablet Take 10 mg by mouth once daily. diphenoxylate-atropine (LOMOTIL) 2.5-0.025 mg per tablet Take 1 tablet by mouth four times a day as needed for diarrhea for up to 30 days. DESIRAE PRASAD U-100 INSULIN 100 unit/mL (3 mL) Inject 30 Units subcutaneously every morning. (Patient taking differently: Inject 40 Units subcutaneously daily at bedtime.) LABORATORY VALUES: WBC (k/uL) Date Value 10/14/2023 3.55 (L) RBC (m/uL) Date Value 10/14/2023 3.59 (L) Hemoglobin (g/dL) Date Value 10/14/2023 12.0 (L) Hematocrit (%) Date Value 10/14/2023 36.1 (L) MCV (fL) Date Value 10/14/2023 100.6 (H) MCH (pg) Date Value 10/14/2023 33.4 MCHC (g/dL) Date Value 10/14/2023 33.2 RDW-CV (%) Date Value 10/14/2023 14.6 Platelet Count (k/uL) Date Value 10/14/2023 96 (L) MPV (fL) Date Value 10/14/2023 9.0 Glucose (mg/dL) Date Value 10/14/2023 341 (H) BUN (mg/dL) Date Value 10/14/2023 21 Creatinine (mg/dL) Date Value 10/14/2023 1.24 (H) Sodium (mmol/L) Date Value 10/14/2023 137 Potassium (mmol/L) Date Value 10/14/2023 4.1 Chloride (mmol/L) Date Value 10/14/2023 101 CO2 (mmol/L) Date Value 10/14/2023 27 Protein, Total (g/dL) Date Value 10/14/2023 7.2 Albumin (g/dL) Date Value 10/14/2023 4.0 Calcium, Total (mg/dL) Date Value 10/14/2023 9.5 Alkaline Phosphatase (U/L) Date Value 10/14/2023 84 Bilirubin, Total (mg/dL) Date Value 10/14/2023 0.8 AST (U/L) Date Value 10/14/2023 42 (H) ALT (U/L) Date Value 10/14/2023 41 Cholesterol, Total (mg/dL) Date Value 01/19/2023 115 Triglyceride (mg/dL) Date Value 01/19/2023 232 (H) M-Protein Concentration Date Value 09/15/2023 0.75 g/dL 08/18/2023 0.74 g/dL 07/13/2023 0.64 g/dL 06/15/2023 0.63 g/dL 05/18/2023 0.54 g/dL 07/02/2021 0.36 gm/dL 06/04/2021 0.31 gm/dL 04/17/2021 0.35 gm/dL 02/26/2021 0.37 gm/dL 12/26/2020 0.62 gm/dL DIAGNOSIS: (R19.7) Diarrhea, unspecified type Plan: diphenoxylate-atropine (LOMOTIL) 2.5-0.025 mg per tablet (C90.00) Multiple myeloma not having achieved remission (HCC) Plan: diphenoxylate-atropine (LOMOTIL) 2.5-0.025 mg per tablet, B2 MICROGLOBULIN, COMPLETE BLOOD COUNT AND DIFFERENTIAL, COMPREHENSIVE METABOLIC PANEL, LACTATE DEHYDROGENASE, PHOSPHORUS INORGANIC, PROTEIN ELECTROPHORESIS SERUM W/INTERP, MONOCLONAL PROTEIN, SERUM (BLOOD), URIC ACID, CALCIUM, IONIZED, KAPPA/ORTIZ,FREE,SER (Z94.81) 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HCC) Plan: diphenoxylate-atropine (LOMOTIL) 2.5-0.025 mg per tablet, B2 MICROGLOBULIN, COMPLETE BLOOD COUNT AND DIFFERENTIAL, COMPREHENSIVE METABOLIC PANEL, LACTATE DEHYDROGENASE, PHOSPHORUS INORGANIC, PROTEIN ELECTROPHORESIS SERUM W/INTERP, MONOCLONAL PROTEIN, SERUM (BLOOD), URIC ACID, CALCIUM, IONIZED, KAPPA/ORTIZ,FREE,SER (N28.9) Renal insufficiency Plan: diphenoxylate-atropine (LOMOTIL) 2.5-0.025 mg per tablet PAST MEDICAL HISTORY Diagnosis Date Abdominal aortic aneurysm (HCC) Allergic rhinitis Biceps rupture, proximal 04/09/2014 Bicipital tenosynovitis 11/01/2013 Chronic pain COVID-19 06/11/2020 positive test 06/13/20 Depression 09/18/2020 Continue home dose of lexapro Elevated blood protein elevated MGUS Generalized anxiety disorder Glaucoma Hepatocellular carcinoma (HCC) Hypercholesteremia 09/17/2020 Hold Lipitor inpatient Hyperlipemia Hypertension Leukocytosis MRSA infection Multiple myeloma ([facility]) 09/17/2020 6 Cycles RVD (February 2020 through August 2020) in a [place] Multiple myeloma not having achieved remission ([facility]) 02/04/2020 Neuropathy 08/20/2020 Continue home Gabapentin Obesity Restless leg syndrome 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 Protocol(s): 3422 1C Preparative regimen: Melphalan Mobilization regimen: plerixafor & neupogen Stem cell source: apheresis CD34 cell dose (x10e6/kg): 4.05 Date of transplant: 09/19/20 Type 2 diabetes (HCC) 08/20/2020 Takes metformin, Lantus, victoza & Farxiga Sliding Scale inpatient & Lantus Plan: -Endo following, recs in dc instructions for home Type II or unspecified type diabetes mellitus without mention of complication, uncontrolled PAST SURGICAL HISTORY Procedure Laterality Date EXTENSIVE FINGER SURGERY Right FOOT/TOES SURGERY PROC UNLISTED Left hammer toes and bunions HEPATECTOMY RESCJ TOTAL RIGHT LOBECTOMY 10/08/2022 lap right hepatectomy for T2Nx HCC LAPAROSCOPIC CHOLECYSTECTOMY 10/08/2022 LIVER BIOPSY PALATOP CL PALATE ATTACHMENT PHARYNGEAL FLAP age 5 PAST SURGICAL HISTORY OF MRSA cyst removed from face PAST SURGICAL HISTORY OF Cyst removed from mouth SHOULDER SURGERY HX Left tendon repair Social History Tobacco Use Smoking status: Former Packs/day: 1.00 Years: 40.00 Additional pack years: 0.00 Total pack years: 40.00 Types: Cigarettes Quit date: 2017 Years since quittin.4 Passive exposure: Past Smokeless tobacco: Never Tobacco comments: 03/30/2018 Vaping Use Vaping Use: Never used Substance Use Topics Alcohol use: Yes Comment: occassional Drug use: Yes Types: Marijuana Comment: THC edibles, 3x a week FAMILY HISTORY Problem Relation Age of Onset Cancer Mother brain 76 y/o Heart disease Mother Hypertension Mother Diabetes Father Heart disease Father Hypertension Father Heart Attack Father Diabetes Sister other (atrial fib) Sister COPD Sister No Known Problems Sister other (polio) Maternal Grandfather Diabetes Paternal Grandmother No Known Problems Daughter I spent a total of 30 minutes on the date of service which included preparing to see the patient, [id number] patient care, completing clinical documentation, performing a medically appropriate examination, counseling and educating the patient/family/caregiver, ordering medications, tests, or procedures, communicating with other HCPs (not separately reported), independently interpreting results (not separately reported), communicating results to the patient/family/caregiver, and care coordination (not separately reported). Vimal Crandall MD, CPE [facility] Provided at: [place], [place] Scribe Attestation: This note was scribed by Esther Short on October 14, 2023 under the direction and supervision of Dr. Vimal Crandall. I attest that all of the information documented is correct to the best of my knowledge. Provider Attestation: I, Vimal Crandall MD, attest that all information documented by the above scribe is correct, and was supervised by me and under my direction. CC: Dr. Frankie Michael Dr. [facility] Dr. Denis Lora documented in this encounter [facility] 09-29-2023 Telephone encounter Note You are scheduled for a bone marrow biopsy, On 10/06/2023. You are to arrive at 9:30 am and Report to [facility] Radiology Registration Desk. You can expect to be here for 4-8 hours. Diet: Do not eat any solid food after midnight the day of/night before your procedure. You may drink clear liquids until 8:30 am, which means black coffee, apple juice, black tea, or water only. Medications: Ok to take your cardiac, blood pressure, anti-seizure, and chronic pain medications with a sip of water, please take prior to arrival. Bring your current medication list. RADIOLOGY RECOMMENDS THESE MEDICATION RESTRICTIONS: Patient states no blood thinner use Labs: Lab-work needs to be drawn? No.. Inclusion Intern/Transportation: How will you be arriving for your procedure? Private car. You will need a responsible adult to accompany you to and from the procedure. Your pile driver operator barge mounted is required to stay with you until you are taken into the procedure room. [facility] 09-29-2023 Miscellaneous Notes You are scheduled for a bone marrow biopsy, On 10/06/2023. You are to arrive at 9:30 am and Report to [facility] Radiology Registration Desk. You can expect to be here for 4-8 hours. Diet: Do not eat any solid food after midnight the day of/night before your procedure. You may drink clear liquids until 8:30 am, which means black coffee, apple juice, black tea, or water only. Medications: Ok to take your cardiac, blood pressure, anti-seizure, and chronic pain medications with a sip of water, please take prior to arrival. Bring your current medication list. RADIOLOGY RECOMMENDS THESE MEDICATION RESTRICTIONS: Patient states no blood thinner use Labs: Lab-work needs to be drawn? No.. Inclusion Intern/Transportation: How will you be arriving for your procedure? Private car. You will need a responsible adult to accompany you to and from the procedure. Your pile driver operator barge mounted is required to stay with you until you are taken into the procedure room. documented in this encounter [facility] 09-20-2023 Telephone encounter Note Pt notified and verbalizes understanding. Arcelia Thomas RN [facility] Work Phone: 09-20-2023 Miscellaneous Notes Pt notified and verbalizes understanding. Arcelia Thomas RN Call placed to pt. No answer. Message left requesting call back. Arcelia Thomas RN ----- Message from Vimal Crandall MD sent at 09/20/2023 5:41 AM EDT ----- Jon - MRI liver looks good - also noted was a cyst in the right kidney that we will watch. You are noted to have multiple cysts in both kidneys and all are stable. The one mentioned has a new partition that is what needs to be watched. documented in this encounter [facility] 09-20-2023 Telephone encounter Note Call placed to pt. No answer. Message left requesting call back. Arcelia Thomas RN [facility] 09-20-2023 Telephone encounter Note ----- Message from Vimal Crandall MD sent at 09/20/2023 5:41 AM EDT ----- Jon - MRI liver looks good - also noted was a cyst in the right kidney that we will watch. You are noted to have multiple cysts in both kidneys and all are stable. The one mentioned has a new partition that is what needs to be watched. [facility] 09-19-2023 Miscellaneous Notes Radiology Service Progress Note DATE OF SERVICE: September 19, 2023 TIME: 12:26 PM PATIENT IDENTITY VERIFICATION COMPLETED USING TWO (2) STANDARD IDENTIFIERS: Name and Date of confirmed by patient verbally and Name and Date of confirmed by identification band. FALL SCREENING: Has the patient had 2 falls in the last year or 1 fall with injury or currently using an Ambulatory Assistive Device (Walker, Cane, Wheelchair, Crutches, etc.)? Yes, Patient High Risk for Falls What interventions were put in place to prevent falls during this visit? Instructed Patient to Call for Help if Needed and Increased Observations by Caregivers PATIENT GENDER DATA: Male PATIENT RELEVANT IMPLANT DATA REVIEWED: Yes PATIENT PRESENTS WITH AN IMPLANTABLE OR ATTACHED BILLBOARD ERECTOR HELPER: No ALLERGIES: Reviewed and unchanged CONTRAST ALLERGY: NO. EXAM: MRI - CONTRAST TYPE: GROUP II PERIPHERAL IV DATA: Ambulatory: A peripheral IV was started in the Right antecubital site with a Angio cath: 24 gauge. RADIOLOGY DEPARTMENT: MR; Exam(s) Completed: Body: Liver (routine) SIGNATURE: RT Tiffanie(R) PATIENT NAME: Jon Bauer DATE: September 19, 2023 TIME: 12:26 PM documented in this encounter [facility] 09-19-2023 Progress note Formatting of t his note is different from the original. Radiology Service Progress Note DATE OF SERVICE: September 19, 2023 TIME: 12:26 PM PATIENT IDENTITY VERIFICATION COMPLETED USING TWO (2) STANDARD IDENTIFIERS: Name and Date of confirmed by patient verbally and Name and Date of confirmed by identification band. FALL SCREENING: Has the patient had 2 falls in the last year or 1 fall with injury or currently using an Ambulatory Assistive Device (Walker, Cane, Wheelchair, Crutches, etc.)? Yes, Patient High Risk for Falls What interventions were put in place to prevent falls during this visit? Instructed Patient to Call for Help if Needed and Increased Observations by Caregivers PATIENT GENDER DATA: Male PATIENT RELEVANT IMPLANT DATA REVIEWED: Yes PATIENT PRESENTS WITH AN IMPLANTABLE OR ATTACHED BILLBOARD ERECTOR HELPER: No ALLERGIES: Reviewed and unchanged CONTRAST ALLERGY: NO. EXAM: MRI - CONTRAST TYPE: GROUP II PERIPHERAL IV DATA: Ambulatory: A peripheral IV was started in the Right antecubital site with a Angio cath: 24 gauge. RADIOLOGY DEPARTMENT: MR; Exam(s) Completed: Body: Liver (routine) SIGNATURE: RT Tiffanie(R) PATIENT NAME: Jon Bauer DATE: September 19, 2023 TIME: 12:26 PM [facility] 09-16-2023 Telephone encounter Note Emilia: Rx was not sent. Looks like it still needs signed. Arcelia Thomas RN [facility] Work Phone: 09-16-2023 Miscellaneous Notes Eimlia: Rx was not sent. Looks like it still needs signed. Arcelia Thomas RN Addended by: VIMAL CRANDALL on: 09/16/2023 08:38 AM Modules accepted: Orders Xanax sent to [facility] [place] Yes, Cassia Naik. Clausterphonic. Patient states that the physician have prescribed before. Did he say what the premeds were for? Claustrophobia? Arcelia Thomas RN Patient is scheduled for his MRI of Liver on 10-25-23. Jon is requesting pre meds to be sent to his pharmacy prior to this test. Thank you documented in this encounter [facility] 09-16-2023 Note Addended by: VIMAL WHITE on: 09/16/2023 08:38 AM Modules accepted: Orders [facility] 09-16-2023 Telephone encounter Note Xanax sent to [facility] [place] [facility] 09-16-2023 Telephone encounter Note Yes, Cassia Naik. Debrausterphonic. Patient states that the physician have prescribed before. [facility] 09-15-2023 Telephone encounter Note Did he say what the premeds were for? Claustrophobia? Arcelia Thomas, ALEX [facility] 09-15-2023 Telephone encounter Note Patient is scheduled for his MRI of Liver on 10-25-23. Jon is requesting pre meds to be sent to his pharmacy prior to this test. Thank you [facility] 09-15-2023 Telephone encounter Note Please see order for scheduling Imaging guided Biopsy of bone marrow ordered by Dr. Vimal Pierson [facility] 09-15-2023 Miscellaneous Notes Please see order for scheduling Imaging guided Biopsy of bone marrow ordered by Dr. Vimla Pierson documented in this encounter [facility] 09-15-2023 Instructions Vimal Crandall MD - 09/15/2023 3:09 PM EDT Continue Revlimid MRI Liver prior to next return Bone marrow biopsy at [facility] please RTC in 4 weeks Labs same day documented in this encounter [facility] 09-15-2023 History of Present illness Narrative Images from the original note were not included. NAME: oJn Bauer CLINIC NO.: [id number] DATE OF SERVICE: September 15, 2023 (Raz) Some elements in this clinic note that are critical to medical decision making have been carefully reviewed and included from a prior clinic note dated: August 18, 2023 (Raz) Additional Clinicians involved in Jon Bauer's care: Dr. Lomeli, Dr. Frankie Campbell DIAGNOSIS: Multiple myeloma followup ASSESSMENT: This is a 73 year old man diagnosed with an IgG lambda monoclonal gammopathy in 2018 and was then noted to have rising M-spike and PET scan documented a sternal lesion. 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 ISS and R-ISS stage II disease. He had a partial response to induction therapy and has recovered following Autologous stem cell infusion. Up to date on post transplant vaccinations. Mild thrombocytopenia - Stable for now. Additional medical issues include: - Immunodeficiency following HDSCT and patient will continue Acyclovir and post-transplant immunizations per Infectious Disease protocol - Renal failure is improving and we will continue monitoring - Neuropathy is stable - Diabetes mellitus managed by PCP is elevated from steroids. - Hepatocellular carcinoma discovered August 2022, resected October 2022. Initial M-Protein is 3.31 prior to Induction Current M-spike is 0.34 as of 06/09/2022 10/08/2022 - resection of Liver mass right lobe [id number] HCC, 3 cm, G2, + LVI . Will undergo serial observation. No current adjuvant therapy recommended. No recurrence on scans February 2023. Continues to have rising M-spike - will repeat bone marrow biopsy and likely change treatment with Daratumumab. PLAN: Continue Revlimid MRI Liver prior to next return Bone marrow biopsy at [place] / [place] please RTC in 4 weeks Labs same day Keep follow up with urology in October need to order ultrasound kidney prior to that visit HPI: CASE HISTORY: Reverse Chronological Order 05/24/2023 - MRI Liver: Postsurgical change as described. No LR-5/OPTN Class 5 lesions. 03/10/2023 - US Kidney Bladder: 1.7 cm RIGHT renal lesion is at least a partially complex cystic lesion but may have a solid peripheral component. Renal neoplasm is not excluded. 02/10/2023 - CT liver with IV contrast: Since 10/01/2022, interval partial right hepatectomy. No findings to suggest residual or recurrent disease. A 1.1 cm hypodensity within the right renal upper pole is indeterminate 11/24/2022 - Resumed Rev maint. 10/08/2022 - Resection of Liver mass right lobe [id number] HCC, 3 cm, G2, + LVI . 06/28/2022 - Held Revlimid due to recurring infections. 07/30/2021 - Resumed Rev at 5mg daily due to thrombocytopenia. 07/02/2021 - M-spike 0.36 12/26/2020 - Rx for Maintenance Rev 10mg daily 12/16/2020 - Hospitalization for SBO with intractable nausea 09/19/2020 - HDCT Auto transplant (D0). 08/24/2020 - Pretransplant testing revealed a 24-hour urine with 0.02 gm M spike. Serum M protein was 0.61, serum kappa light chains 15.3, serum lambda light chain 17.0, serum kappa/lambda ratio 0.90 (normal 0.26-1.65) 08/19/2020 - Bone marrow examination 40% cellular with less than 5% plasma cells and normal cytogenetics 02/18/2020-08/25/2020 - RVD 02/01/2020 - PET/CT: No FDG avid neoplastic process in the neck, chest, or A/P. EXTREMITIES/SKELETON: 1.2 cm mildly FDG-avid lytic lesion in the sternum with SUV max of 2.7, may represent a site of active myeloma. No FDG avid destructive osseous lesions elsewhere. Specifically, no hypermetabolic lesions in humeral heads or femurs. 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 06/08/2019 - Bone Survey: Lytic lesions involving bilateral humeral heads and distal right femur Updated Visit, September 15, 2023: Jon returns today and has another episode of facial MRSA abscess. This is healing but he had thrush and diarrhea and was pretty misearble. Held rev for a little bit and has resumed. M-spike continues to rise, will re-stage soon and plan for change in therapy. Updated Visit, August 18, 2023: Jon returns today for a follow up. He had surgery for trigger finger - pain is much better but he notes some stiffness. He has a follow up scheduled to determine his need for PT. He has restarted Revlimid. Platelets are 108 today. M-spike remains elevated. He has had problems regarding urination since his liver surgery in 10/2022. 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 Updated Visit, July 13, 2023: Jon returns today. RBC still low, 3.82 today. He is having surgery for trigger finger with Dr. Lorenzana, so he will hold Revlimid for 2 weeks - started hold on 07/11. Decrease dose of Revlimid was working, but needs more time off - will reassess 3 weeks after resuming. He saw his sign wirer yesterday, who adjusted his insulin. Updated Visit, June 15, 2023: Legs stronger, moving better and is walking more regularly. Trigger finger in his left hand getting worse and will need it released. Decreased dose of rev is working well. Blood sugars improved. Updated Visit, May 18, 2023: Jon is doing well and platelets are improved with lower dose revlimid. Continues follow up for HCC and with urology for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 Total pack years: 40.00 Types: Cigarettes Quit date: 2018 Years since quittin.3 Passive exposure: Past Smokeless tobacco: Never Tobacco comments: 03/30/2018 Vaping Use Vaping Use: Never used Substance Use Topics Alcohol use: Yes Comment: occassional Drug use: Yes Types: Marijuana Comment: THC edibles, 3x a week FAMILY HISTORY Problem Relation Age of Onset Cancer Mother brain 76 y/o Heart disease Mother Hypertension Mother Diabetes Father Heart disease Father Hypertension Father Heart Attack Father Diabetes Sister other (atrial fib) Sister COPD Sister No Known Problems Sister other (polio) Maternal Grandfather Diabetes Paternal Grandmother No Known Problems Daughter I spent a total of 40 minutes on the date of service which included preparing to see the patient, [id number] patient care, completing clinical documentation, performing a medically appropriate examination, counseling and educating the patient/family/caregiver, ordering medications, tests, or procedures, independently interpreting results (not separately reported), communicating results to the patient/family/caregiver, and care coordination (not separately reported). Vimal Crandall MD, CPE Hematology and Oncology Services Provided at: [place], [place] CC: Dr. Frankie Michael Dr. [facility] Dr. Denis Lora documented in this encounter [facility] 09-15-2023 Note HNO ID: [id number] Author: VIMAL CRANDALL MD Service: ? Author Type: Physician Type: Progress Notes Filed: 09/16/2023 14:20 Note Text: NAME: Jon Bauer CLINIC NO.: [id number] DATE OF SERVICE: September 15, 2023 (Raz) Some elements in this clinic note that are critical to medical decision making have been carefully reviewed and included from a prior clinic note dated: August 18, 2023 (Raz) Additional Clinicians involved in Jon Bauer's care: Dr. Lomeli, Dr. Frankie Campbell DIAGNOSIS: Multiple myeloma followup ASSESSMENT: This is a 73 year old man diagnosed with an IgG lambda monoclonal gammopathy in 2019 and was then noted to have rising M-spike and PET scan documented a sternal lesion. 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 ISS and R-ISS stage II disease. He had a partial response to induction therapy and has recovered following Autologous stem cell infusion. Up to date on post transplant vaccinations. Mild thrombocytopenia - Stable for now. Additional medical issues include: - Immunodeficiency following HDSCT and patient will continue Acyclovir and post-transplant immunizations per Infectious Disease protocol - Renal failure is improving and we will continue monitoring - Neuropathy is stable - Diabetes mellitus managed by PCP is elevated from steroids. - Hepatocellular carcinoma discovered August 2022, resected October 2022. Initial M-Protein is 3.31 prior to Induction Current M-spike is 0.34 as of 06/09/2022 10/08/2022 - resection of Liver mass right lobe [id number] HCC, 3 cm, G2, + LVI . Will undergo serial observation. No current adjuvant therapy recommended. No recurrence on scans February 2023. Continues to have rising M-spike - will repeat bone marrow biopsy and likely change treatment with Daratumumab. PLAN: Continue Revlimid MRI Liver prior to next return Bone marrow biopsy at [place] / [place] please RTC in 4 weeks Labs same day Keep follow up with urology in October need to order ultrasound kidney prior to that visit __ HPI: CASE HISTORY: Reverse Chronological Order 05/24/2023 - MRI Liver: Postsurgical change as described. No LR-5/OPTN Class 5 lesions. 03/10/2023 - US Kidney Bladder: 1.7 cm RIGHT renal lesion is at least a partially complex cystic lesion but may have a solid peripheral component. Renal neoplasm is not excluded. 02/10/2023 - CT liver with IV contrast: Since 10/01/2022, interval partial right hepatectomy. No findings to suggest residual or recurrent disease. A 1.1 cm hypodensity within the right renal upper pole is indeterminate 11/24/2022 - Resumed Rev maint. 10/08/2022 - Resection of Liver mass right lobe [id number] HCC, 3 cm, G2, + LVI . 06/28/2022 - Held Revlimid due to recurring infections. 07/30/2021 - Resumed Rev at 5mg daily due to thrombocytopenia. 07/02/2021 - M-spike 0.36 12/26/2020 - Rx for Maintenance Rev 10mg daily 12/16/2020 - Hospitalization for SBO with intractable nausea 09/19/2020 - HDCT Auto transplant (D0). 08/24/2020 - Pretransplant testing revealed a 24-hour urine with 0.02 gm M spike. Serum M protein was 0.61, serum kappa light chains 15.3, serum lambda light chain 17.0, serum kappa/lambda ratio 0.90 (normal 0.26-1.65) 08/19/2020 - Bone marrow examination 40% cellular with less than 5% plasma cells and normal cytogenetics 02/18/2020-08/25/2020 - RVD 02/01/2020 - PET/CT: No FDG avid neoplastic process in the neck, chest, or A/P. EXTREMITIES/SKELETON: 1.2 cm mildly FDG-avid lytic lesion in the sternum with SUV max of 2.7, may represent a site of active myeloma. No FDG avid destructive osseous lesions elsewhere. Specifically, no hypermetabolic lesions in humeral heads or femurs. 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 06/08/2019 - Bone Survey: Lytic lesions involving bilateral humeral heads and distal right femur Updated Visit, September 15, 2023: Jon returns today and has another episode of facial MRSA abscess. This is healing but he had thrush and diarrhea and was pretty misearble. Held rev for a little bit and has resumed. M-spike continues to rise, will re-stage soon and plan for change in therapy. Updated Visit, August 18, 2023: Jon returns today for a follow up. He had surgery for trigger finger - pain is much better but he notes some stiffness. He has a follow up scheduled to determine his need for PT. He has restarted Revlimid. Platelets are 108 today. M-s (more content not included)... [facility] 08-18-2023 Instructions Esther Short - 08/18/2023 3:14 PM EDT Continue Revlimid RTC in 4 weeks Labs same day documented in this encounter [facility] 08-18-2023 History of Present illness Narrative Images from the original note were not included. NAME: Jon Bauer [facility] NO.: [id number] DATE OF SERVICE: August 18, 2023 (Raz) Some elements in this clinic note that are critical to medical decision making have been carefully reviewed and included from a prior clinic note dated: July 13, 2023 (Raz) Additional Clinicians involved in Jon Bauer's care: Dr. Lomeli, Dr. Frankie Campbell DIAGNOSIS: Multiple myeloma followup ASSESSMENT: This is a 72 year old man diagnosed with an IgG lambda monoclonal gammopathy in 2019 and was then noted to have rising M-spike and PET scan documented a sternal lesion. 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 ISS and R-ISS stage II disease. He had a partial response to induction therapy and has recovered following Autologous stem cell infusion. Up to date on post transplant vaccinations. Mild thrombocytopenia - Stable for now. Additional medical issues include: - Immunodeficiency following HDSCT and patient will continue Acyclovir and post-transplant immunizations per Infectious Disease protocol - Renal failure is improving and we will continue monitoring - Neuropathy is stable - Diabetes mellitus managed by PCP is elevated from steroids. - Hepatocellular carcinoma discovered August 2022, resected October 2022. Initial M-Protein is 3.31 prior to Induction Current M-spike is 0.34 as of 06/09/2022 10/08/2022 - resection of Liver mass right lobe [id number] HCC, 3 cm, G2, + LVI . Will undergo serial observation. No current adjuvant therapy recommended. No recurrence on scans February 2023. (03/23/2023) Held his Revlimid for a week while he is on Bactrim as he is mildly neutropenic. My suspicion is that this is because of Bactrim. This may limit his ability to use this in the future. PLAN: Continue Revlimid RTC in 4 weeks Labs same day Keep follow up with urology in October May need to order ultrasound kidney prior to that visit HPI: CASE HISTORY: Reverse Chronological Order 05/24/2023 - MRI Liver: Postsurgical change as described. No LR-5/OPTN Class 5 lesions. 03/10/2023 - US Kidney Bladder: 1.7 cm RIGHT renal lesion is at least a partially complex cystic lesion but may have a solid peripheral component. Renal neoplasm is not excluded. 02/10/2023 - CT liver with IV contrast: Since 10/01/2022, interval partial right hepatectomy. No findings to suggest residual or recurrent disease. A 1.1 cm hypodensity within the right renal upper pole is indeterminate 11/24/2022 - resumed Rev maint. 10/08/2022 - resection of Liver mass right lobe [id number] HCC, 3 cm, G2, + LVI . 06/28/2022 - held Revlimid due to recurring infections. 07/30/2021 - Resumed Rev at 5mg daily due to thrombocytopenia. 07/02/2021 - M-spike 0.36 12/26/2020 - Rx for Maintenance Rev 10mg daily 12/16/2020 - Hospitalization for SBO with intractable nausea 09/19/2020 - HDCT Auto transplant (D0). 08/24/2020 - Pretransplant testing revealed a 24-hour urine with 0.02 gm M spike. Serum M protein was 0.61, serum kappa light chains 15.3, serum lambda light chain 17.0, serum kappa/lambda ratio 0.90 (normal 0.26-1.65) 08/19/2020 - Bone marrow examination 40% cellular with less than 5% plasma cells and normal cytogenetics 02/18/2020-08/25/2020 - RVD 02/01/2020 - PET/CT: No FDG avid neoplastic process in the neck, chest, or A/P. EXTREMITIES/SKELETON: 1.2 cm mildly FDG-avid lytic lesion in the sternum with SUV max of 2.7, may represent a site of active myeloma. No FDG avid destructive osseous lesions elsewhere. Specifically, no hypermetabolic lesions in humeral heads or femurs. 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 06/08/2019 - Bone Survey: Lytic lesions involving bilateral humeral heads and distal right femur Updated Visit, August 18, 2023: Jon returns today for a follow up. He had surgery for trigger finger - pain is much better but he notes some stiffness. He has a follow up scheduled to determine his need for PT. He has restarted Revlimid. Platelets are 108 today. M-spike remains elevated. He has had problems regarding urination since his liver surgery in 10/2022. 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 Updated Visit, July 13, 2023: Jon returns today. RBC still low, 3.82 today. He is having surgery for trigger finger with Dr. Lorenzana, so he will hold Revlimid for 2 weeks - started hold on 07/11. Decrease dose of Revlimid was working, but needs more time off - will reassess 3 weeks after resuming. He saw his sign wirer yesterday, who adjusted his insulin. Updated Visit, June 15, 2023: Legs stronger, moving better and is walking more regularly. Trigger finger in his left hand getting worse and will need it released. Decreased dose of rev is working well. Blood sugars improved. Updated Visit, May 18, 2023: Jon is doing well and platelets are improved with lower dose revlimid. Continues follow up for HCC and with urology for the complex renal cyst. Overall has continued improvement with blood sugars. Updated Visit, April 20, 2023: Patient seen urologists that informed him of a complex cyst. He is taking Revlimid every other day, improvements are seen in labs. He has been taking insulin and is managing it better, labs confirm this. He has been having nerve issues, including restless leg syndrome preventing him from sleeping. He also mentions diarrhea, he believes to be from Jardiance. Updated Visit, March 23, 2023: Jon returns today for a follow up and endorses feeling normal. He states he is trying to stay active but takes a day off to rest. Ultrasound shows a 1.7 cm RIGHT renal lesion, at least a partially complex cystic lesion and should follow up with a CT scan. He has a follow up with Urology on April 05. He states he is attending congregation on but doesn't go often because he doesn't want to get sick being around a crowd. We discussed getting the flu vaccination and a COVID booster. Has been holding Revlimid because of cytopenias as directed and CBC pending today, M protien is pending. We reviewed labs, blood count has been low the last few weeks. I will have to call when the results come back. Updated Visit, February 16, 2023: Had MRSA again - has been on Bactrim for 2 weeks WBC is decreased. Platelets are decreased but stable. Reviewed scans with him. Updated Visit, January 19, 2023: Couldn't tolerate MR even with sedation. CT ordered. Continue current Rev as M-spike rise is slowing down Updated Visit, December 22, 2022: Doing much better with blood sugars. Leisa is preparing for the fair. Will adjust maintenance based on results of SPIEP. Updated Visit, November 24, 2022: Saw Dr. Almanza in follow up - will have next MRI with sedation in January for follow-up of hepatocellular carcinoma Eye infection and is on Keflex drops. Blood sugars still running high M-spike now 0.48 - will resume revlimid. Continues with restless leg and can't sleep at night. - is taking THC Gummies. Updated Visit, October 20, 2022: Jon is 72 and returns with Leisa - doing well. Will recheck myeloma labs Reviewed resection pathology and anticipate serial surveillance. Recovering with multiple bruises post-op and has a drain. Updated Visit, September 30, 2022: Couldn't do MRI yesterday because of claustrophobia. Will continue holding Rev until after resection with Dr. Almanza. Updated Visit, September 01, 2022: Jon returns with Leisa. He was found to have a liver mass. Discussed options for workup and will need to continue monitoring for progressive myeloma. Updated Visit, August 04, 2022: Jon Bauer returns for follow-up. He remains off of Revlimid and due to ongoing infection with MRSA to his face. Since his last visit he was at the [facility] emergency room with left-sided upper abdominal pain with several episodes of diarrhea and a cough with productive green phlegm and chest pain. He had a CT of the chest, abdomen and pelvis. He was treated with IV fluids, morphine and Zofran. He was discharged home on dicyclomine 20 mg every 8 hours. He is feeling better today. He denies fevers and chills. No bleeding or abnormal bruising. He remains off of the Revlimid. He has completed a course of antibiotics for MRSA. He is scheduled to see his PCP tomorrow, Dr. Key. He is scheduled for surgery with Dr. Sir Cazares on August 24, 2022. Updated Visit, July 07, 2022: Saw Dr. Michael 1 week ago and will be seeing plastic surgery - Dr. Moore - currently on Doxycycline. Diarrhea improved. Blood sugars still very high - reviewed and educated regarding Sister 2 weeks ago in [facility]. Saw [facility]erm [facility] and had wound cleaned out. Updated Visit, June 09, 2022: Continues to have ID issues now has diarrhea following two rounds of antibiotic for sinus infections and also additional for MRSA of his left face. M-spike stable. IgG is > 700. Blood sugars are > 500 with adjustments in insulin. Updated Visit, May 12, 2022: Jon Bauer returns for scheduled follow-up. He remains on Revlimid 5 mg daily which he is tolerating well. He denies any significant side effects from the Revlimid. He states that he did not take the Revlimid for 3 to 4 days this month after starting the antibiotic because the combination was rough on his stomach. He recently developed a head cold and chest congestion. He was diagnosed with an ear infection by his PCP. He states that he has been feeling under the weather! . He was given a course of amoxicillin and then developed diarrhea. His symptoms did not improve and was recently started on another course of antibiotics and prednisone. He denies fevers and chills. He denies bleeding and abnormal bruising. No new unusual pain. Updated Visit, April 14, 2022: Labs stable. 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 No other major issues. Chronic limitations to duration of exercise. 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 Counts are stable. Updated Visit, February 17, 2022: Jon Bauer returns for follow-up and labs. He is still being treated for MRSA with Bactrim and a face wash. He has had oral thrush on and off for a couple of months. He remains on Revlimid 5 mg daily and is tolerating it well. He denies any significant side effects from the Revlimid. He denies fevers, chills, night sweats and signs/symptoms of infection. No bleeding or abnormal bruising. Overall he is doing well with no new complaints today. No new issues, problems or concerns. Updated Visit, January 18, 2022: Infection in cheek - (MRSA) is resolving currently on Bactrim DS for a 30 day course. Will resume Revlimid 5 mg and if platelets drop below 35k will decrease to 2.5 mg daily. Currently platelets have recovered to 78k nd will resume treatment. Now has a scab on his right forearm and is seeing dermatology. Looks like a superficial burn with skin sloughing 2 friends have recently - just sad about that. Updated Visit, January 01, 2022: Jon returns and is quite uncomfortable. His platelets still low and abscesses have recurred. Blood sugar is high - can't get in to see Dr. Michael - going to the ER Leisa won several prizes from baking at the [employer] and granddaughter won showing her pig. Updated Visit, December 18, 2021: Jon returns and his facial infection finally cleared up but required debridement and drainage. Had Dalvance IV Thrush resolved Platelets still low Will hold Revlimid for 2 more weeks - still thromboctopenic - will see if clearance from Dalvance will allow him to resolve. Updated Visit, November 20, 2021: Returns today and retells his saga with sinus infection from last visit: Augmentin didn't help - required tessalon, prednisone and levaquin to get things improved. 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 Otherwise doing well from myeloma standpoint. Updated Visit, October 23, 2021: Jon returns alone today and remains on Rev maintenance. Sinus fullness and productive cough will treat empirically. Otherwise continues to do well. Updated Visit, September 25, 2021: Jon Bauer returns for follow-up. He remains on Revlimid 5 mg daily and is tolerating it well. He denies any side effects from the Revlimid. He started his current cycle on September 08. He denies any unusual pain. He denies fevers, chills, night sweats and signs/symptoms of infection. He denies any abnormal bleeding or abnormal bruising. His skin is thin as he ages and tends to bleed easier due to that. His diarrhea is much improved. He remains on Metamucil. He offers no new complaints today. No new issues, problems or concerns. Updated Visit, August 28, 2021: Diarrhea associated with Metformin now improved significantly. His counts are fairly stable but platelets are a little low. Will continue treatment as is for now and consider holding the dose if he gets lower. Back on insulin for managing blood sugars. Updated Visit, July 30, 2021: Still has diarrhea biopsy results pending. Leisa is with him today. He is doing well overall. Will resume Revlimid at 5 mg daily. Platelets are at 100k. Updated Visit, July 16, 2021: Telephone only for 12 minutes Called Jon as requested and his counts were reviewed. His platelets are improving but still less than 100k. Unfortunately he still has daily diarrhea but is seeing Dr. Garay next week. We will plan to hold his Revilimid for a few weeks longer. Updated Visit, July 02, 2021: Platelets suppressed after having restarted revlimid 1 week ago - will ask him to stop. Still having diarrhea and is going to GI tomorrow M-spike continues to drop slowly. If unable to continue Rev, will change maintenance. Updated Visit, May 07, 2021: Will resume lexapro for depression. May be confusing ativan with lexapro No additional rash - Leisa is with him today. If it recurs, we can switch maintenance to Ixazomib or pomalidomide - defer to transplant team. Updated Visit, April 17, 2021: Walking better, neuropathy improving, fatigue resolving, appetite is improved. Only thing worse is restless legs in the evening. Getting his vaccination series. Labs stable. Rash is resolved. Updated Visit, January 28, 2021: Intermittent bowel issues but no significant problems. Both COVID-19 Vax Pfizer as of tomorrow Balance and activity levels are better - dizziness has resolved. recovereing from mild Upper respiratory viral infection Updated Visit, December 26, 2020: Jon returns today reporting a hospitalization for SBO with intractable nausea 12/16/2020. Managed conservatively and resolved. Proceed with vaccination schedule Start with COVID-19 vax. Occult Blood in stools - consider CT at next visit. Updated Visit, December 05, 2020: Occasional swelling in knees and ankles but is walking and getting more active. Still gets cold easily and has intermittent diarrhea but less than previous. Anemia is improved. Still has fatigue but is improving with continued activity. D100 s approximately 12/27/2020 and will need to start maintenance Revlimid beyond that time. He will need COVID Vax and others on schedule that he has. Updated Visit, November 13, 2020: Jon is 70 yo and underwent Autologous transplant. September 19, 2020 was day of Autologous transplant and is doing well. We will continue monitoring his response and will anticipate starting maintenance therapy at the appropriate time. He had recent resolution of GI symptoms due to a prolonged course of Cipro- which once identified was stopped and symptoms resolved. 08/24/2020 his pretransplant testing revealed a 24-hour urine with 0.02 gm M spike. His serum M protein was 0.61, serum kappa light chains 15.3, serum lambda light chain 17.0, serum kappa/lambda ratio 0.90 (normal 0.26-1.65), and his bone marrow examination from 08/19/2020 was 40% cellular with less than 5% plasma cells and normal cytogenetics. His pretransplant disease response was a OK. Transplant overview: Protocol(s): 3422 1C Preparative regimen: Melphalan Mobilization regimen: plerixafor & neupogen Stem cell source: apheresis CD34 cell dose (x10e6/kg): 4.05 Date of transplant: 09/19/2020 Updated Visit, August 11, 2020: Jon is 69 years old and returns to resume treatment with Velcade plus Revlimid just prior to getting autologous transplant. He has recovered from Covid and is much more active and feels quite a bit better. Fatigue is resolved and he had a great week last week. His counts have recovered and he is safe to proceed. Updated Visit, July 11, 2020: Jon is 69 yo and ended up getting COVID-19 and we held treatment. He has now recovered from the acute effects and has also normalized his kidney function. We will resume treatment next week. Still fatigued, didn't end up in the hospital at least. Updated Visit, June 04, 2020: Jon is 69 yo and returns for ongoing treatment of MM with RVD. He is having difficulty with tolerance and complains of persisting diarrhea - will stop revlimid (he's still taking 25mg). He saw Dr. Campbell for transplant and we will get a 24 hour urine IEP with the next assessment. We will have a break in treatment and then start Rev at a lower dose as previously discussed with him. Updated Visit, May 19, 2020: Feel better but has burning in his stomach which we will try mylanta rather than Pepto-bismol. He is due to see BMT tomorrow virtually and otherwise, with the resolution of his symptoms from last week, he will resume treamtent as scheduled. He has responsive disease on RVD. Updated Visit, May 12, 2020: Jon is 69 yo and is being treated from IgG Lambda multiple myeloma with initial M-spike of 3.3 gm and small lytic lesions in both humeral heads and distal right femur. PET CT noted a lesion on the sternum. He is due for cycle 4 but feels lousy with respect to energy and persisting nausea. He has mild sensory neuropathy as well and is struggling with the decadron to manage his sugars. Updated Visit, April 14, 2020: Jon is 69 years old and returns for treatment for his newly diagnosed multiple myeloma currently on RVD. 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 Bone marrow biopsy in December 2019 revealed findings consistent with smoldering myeloma but with small lytic lesions in both humeral heads as well as right distal femur and an additional lesion noted on the sternum by PET/CT, we elected to treat him with 8-10 cycles of RVD. I discussed consideration of pulmonary transplant with him at his last visit and I will plan on referring him following his third cycle of treatment. He reports that he had issues with nausea and diarrhea, as well gas. Everything is settled down, but he is anxious about symptoms going forward. Updated visit, March 17, 2020: Jon is 69 years old and returns with his Leisa for treatment of newly diagnosed multiple myeloma for which he has been started on RVD. He was followed for a monoclonal gammopathy IgG lambda of 3.3 g since November 2018. Biopsy in December 2019 demonstrated what appeared to be smoldering myeloma but he had small lytic lesions in both humeral heads as well as distal right femur. PET/CT showed an additional lesion in the sternum but did not find the femoral or humeral head lesions based on these findings we electively started him on initial treatment. I anticipate 8-10 cycles of RVD and he returns today for his second cycle. He tolerated his first cycle well however he has some unpredictable bouts of diarrhea small rash on his neck that is resolving as well as candidal mucositis that resolved with Diflucan. Overall he is tolerating treatment very well, has no neuropathy and is willing to proceed with additional treatment as planned. Updated Visit, February 08, 2020: Jon Bauer is a 69 year old male seen for a monoclonal gammopathy found on routine labs. The patient was found to have a monoclonal gammopathy of (IgG) 3.3 gm with lambda specificity noted in Dr. BALDWIN's notes from 11/29/2018. 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 A PET/CT wich showed only a sternal lesion with uptake FDG with SUV 2.7 and no uptake in either femur or humeral heads. Findings are consistent with multiple myeloma and we will proceed with induction therapy. I sat with him and his Leisa and extensively reviewed the treatmtent plan as well as the risks and benefits. I anticipate 8-10 cycles of induction. I will discuss HCT with them at their next visit so as to not overwhelm them. He has mild neuropathy from poorly controlled diabetes and coronary artery calcification but otherwise has a well preserved performance status and could be appropriate despite being older than 65. PATHOLOGIC PROFILE/MOLECULAR DATA: 12/17/2019 - bone marrow biopsy and aspirate: Bone marrow, aspirate smear and core biopsy, with clot section and peripheral blood: -Involved by plasma cell neoplasm with 5 to 10% plasma cells. -Normocellular bone marrow 20% with trilineage hematopoiesis. -Stainable iron present. -Comment-the patient has a history of IgG lambda monoclonal protein. The bone marrow shows involvement by a plasma cell neoplasm with 3% plasma cells in the aspirate smear and 5 to 10% plasma cells by immunohistochemistry. Final classification of plasma cell neoplasms require correlation with additional clinical laboratory and/or radiologic findings. FISH for plasma cell neoplasm: Findings demonstrated plasma cell population with trisomy 9, trisomy 15 and gain of genetic material at the CCN D1 locus or trisomy 11. These findings are consistent with the presence of a plasma cell neoplasm and represent standard risk disease. Cytogenetics: Normal male karyotype 46, XY 20 REVIEW OF SYSTEMS Per HPI and otherwise negative by full review of organ systems. ECOG PERFORMANCE STATUS: 0 PHYSICAL EXAMINATION: Vitals: BP 155/78 Pulse 81 Temp (Src) 97.3 (Temporal) Resp 16 Ht 5' 10.984 (1.80m) Wt 259 lb 4.2 oz (117.6kg) SpO2 97% BMI 36.18 kg/(m^2). Body surface area is 2.43 meters squared. Exam limited to gross visualization where appropriate. Gen.: This is an age-appropriate patient in no acute distress. Head: Appears atraumatic with no visible lesions. Eyes: Pupils equally round and reactive to light, extraocular muscles are intact. Neck: Supple. Respiratory: Appears to be respiring comfortably. Neurologic: Nonfocal to gross visualization. Alert and oriented 3. Psychiatric: No evidence of inappropriate anxiety or depression. Skin: Visible areas of skin without rash, lesions, wounds or petechiae. ALLERGIES: ALLERGIES Allergen Reactions Amoxicillin-Pot Cla* Diarrhea Oseltamivir Other: See Comments Sulfamethoxazole-Tr* GI Upset, Unknown MEDICATIONS: REVLIMID 2.5 mg capsule TAKE 1 CAPSULE BY MOUTH 1 TIME A DAY Blood-Glucose Sensor (DEXCOM G7 SENSOR) liana as directed. empagliflozin (JARDIANCE) 10 mg tablet Take 10 mg by mouth daily with breakfast. ACETAMINOPHEN ORAL Take by mouth. MELATONIN ORAL Take by mouth. multivit-minerals/folic acid (CENTRUM MULTIGUMMIES ORAL) Take by mouth. cholecalciferol, vitD3,/vit K2 (VITAMIN D3-VITAMIN K2 ORAL) Take by mouth. L gasseri/B bifidum/B longum (PROBIOTIC COLON CARE ORAL) Take by mouth. insulin aspart U-100 (NOVOLOG FLEXPEN U-100 INSULIN) 100 unit/mL (3 mL) If Blood Glucose (mg/dL) is <110 Give 0 units 111-150 Give 0 units 151-200 Give 2 unit 201-250 Give 4 units 251-300 Give 6 units 301-350 Give 8 units 351-400 Give 10 units >400 Call physician. rOPINIRole (REQUIP) 2 mg tablet Take 1 tablet by mouth daily at bedtime. Cholecalciferol, Vitamin D3, (VITAMIN D) 25 mcg (1,000 unit) cap Take 2 capsules by mouth once daily. atorvastatin (LIPITOR) 10 mg tablet Take 10 mg by mouth once daily. cetirizine (ZYRTEC) 10 mg tablet Take 10 mg by mouth once daily. BASAGLAR KWIKPEN U-100 INSULIN 100 unit/mL (3 mL) Inject 30 Units subcutaneously every morning. (Patient taking differently: Inject 40 Units subcutaneously daily at bedtime.) Insulin [place], Disposable, (BD ULTRA-FINE NAY PEN NEEDLE) 32 gauge x 5/32 Use as directed up to four times daily gabapentin (NEURONTIN) 100 mg capsule Take 1 capsule by mouth daily at bedtime for 30 days. (Patient taking differently: Take 100 mg by mouth three times a day.) LABORATORY VALUES: WBC (k/uL) Date Value 08/18/2023 4.40 RBC (m/uL) Date Value 08/18/2023 3.58 (L) Hemoglobin (g/dL) Date Value 08/18/2023 12.1 (L) Hematocrit (%) Date Value 08/18/2023 34.8 (L) MCV (fL) Date Value 08/18/2023 97.2 MCH (pg) Date Value 08/18/2023 33.8 MCHC (g/dL) Date Value 08/18/2023 34.8 RDW-CV (%) Date Value 08/18/2023 14.3 Platelet Count (k/uL) Date Value 08/18/2023 108 (L) MPV (fL) Date Value 08/18/2023 8.8 (L) Glucose (mg/dL) Date Value 08/18/2023 298 (H) BUN (mg/dL) Date Value 08/18/2023 23 Creatinine (mg/dL) Date Value 08/18/2023 1.21 Sodium (mmol/L) Date Value 08/18/2023 141 Potassium (mmol/L) Date Value 08/18/2023 3.9 Chloride (mmol/L) Date Value 08/18/2023 106 (H) CO2 (mmol/L) Date Value 08/18/2023 25 Protein, Total (g/dL) Date Value 08/18/2023 6.9 Albumin (g/dL) Date Value 08/18/2023 4.0 Calcium, Total (mg/dL) Date Value 08/18/2023 9.4 Alkaline Phosphatase (U/L) Date Value 08/18/2023 97 Bilirubin, Total (mg/dL) Date Value 08/18/2023 0.3 AST (U/L) Date Value 08/18/2023 43 (H) ALT (U/L) Date Value 08/18/2023 47 Cholesterol, Total (mg/dL) Date Value 01/19/2023 115 Triglyceride (mg/dL) Date Value 01/19/2023 232 (H) M-Protein Concentration Date Value 07/13/2023 0.64 g/dL 06/15/2023 0.63 g/dL 05/18/2023 0.54 g/dL 04/20/2023 0.55 g/dL 03/23/2023 0.49 g/dL 07/02/2021 0.36 gm/dL 06/04/2021 0.31 gm/dL 04/17/2021 0.35 gm/dL 02/26/2021 0.37 gm/dL 12/26/2020 0.62 gm/dL DIAGNOSIS: (C90.00) Multiple myeloma not having achieved remission (HCC) (primary encounter diagnosis) Plan: B2 MICROGLOBULIN, COMPLETE BLOOD COUNT AND DIFFERENTIAL, COMPREHENSIVE METABOLIC PANEL, LACTATE DEHYDROGENASE, PHOSPHORUS INORGANIC, PROTEIN ELECTROPHORESIS SERUM W/INTERP, MONOCLONAL PROTEIN, SERUM (BLOOD), URIC ACID, CALCIUM, IONIZED, KAPPA/ORTIZ,FREE,SER (Z94.81) 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HCC) Plan: B2 MICROGLOBULIN, COMPLETE BLOOD COUNT AND DIFFERENTIAL, COMPREHENSIVE METABOLIC PANEL, LACTATE DEHYDROGENASE, PHOSPHORUS INORGANIC, PROTEIN ELECTROPHORESIS SERUM W/INTERP, MONOCLONAL PROTEIN, SERUM (BLOOD), URIC ACID, CALCIUM, IONIZED, KAPPA/ORTIZ,FREE,SER (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), type 2 with complications (HCC) Plan: B2 MICROGLOBULIN, COMPLETE BLOOD COUNT AND DIFFERENTIAL, COMPREHENSIVE METABOLIC PANEL, LACTATE DEHYDROGENASE, PHOSPHORUS INORGANIC, PROTEIN ELECTROPHORESIS SERUM W/INTERP, MONOCLONAL PROTEIN, SERUM (BLOOD), URIC ACID, CALCIUM, IONIZED, KAPPA/ORTIZ,FREE,SER (C22.0) Hepatocellular carcinoma (HCC) Plan: B2 MICROGLOBULIN, COMPLETE BLOOD COUNT AND DIFFERENTIAL, COMPREHENSIVE METABOLIC PANEL, LACTATE DEHYDROGENASE, PHOSPHORUS INORGANIC, PROTEIN ELECTROPHORESIS SERUM W/INTERP, MONOCLONAL PROTEIN, SERUM (BLOOD), URIC ACID, CALCIUM, IONIZED, KAPPA/ORTIZ,FREE,SER (N18.30) Stage 3 chronic kidney disease, unspecified whether stage 3a or 3b CKD (HCC) Plan: B2 MICROGLOBULIN, COMPLETE BLOOD COUNT AND DIFFERENTIAL, COMPREHENSIVE METABOLIC PANEL, LACTATE DEHYDROGENASE, PHOSPHORUS INORGANIC, PROTEIN ELECTROPHORESIS SERUM W/INTERP, MONOCLONAL PROTEIN, SERUM (BLOOD), URIC ACID, CALCIUM, IONIZED, KAPPA/ORTIZ,FREE,SER PAST MEDICAL HISTORY Diagnosis Date Abdominal aortic aneurysm (HCC) Allergic rhinitis Biceps rupture, proximal 04/09/2014 Bicipital tenosynovitis 11/01/2013 Chronic pain COVID-19 06/11/2020 positive test 06/13/20 Depression 09/18/2020 Continue home dose of lexapro Elevated blood protein elevated MGUS Generalized anxiety disorder Glaucoma Hepatocellular carcinoma (HCC) Hypercholesteremia 09/17/2020 Hold Lipitor inpatient Hyperlipemia Hypertension Leukocytosis MRSA infection Multiple myeloma (HCC) 09/17/2020 6 Cycles RVD (February 2020 through August 2020) in a [place] Multiple myeloma not having achieved remission (HCC) 02/04/2020 Neuropathy 08/20/2020 Continue home Gabapentin Obesity Restless leg syndrome 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 Protocol(s): 3422 1C Preparative regimen: Melphalan Mobilization regimen: plerixafor & neupogen Stem cell source: apheresis CD34 cell dose (x10e6/kg): 4.05 Date of transplant: 09/19/20 Type 2 diabetes ([facility]) 08/20/2020 Takes metformin, Lantus, victoza & Farxiga Sliding Scale inpatient & Lantus Plan: -Endo following, recs in dc instructions for home Type II or unspecified type diabetes mellitus without mention of complication, uncontrolled PAST SURGICAL HISTORY Procedure Laterality Date EXTENSIVE FINGER SURGERY Right FOOT/TOES SURGERY PROC UNLISTED Left hammer toes and bunions HEPATECTOMY RESCJ TOTAL RIGHT LOBECTOMY 10/08/2022 lap right hepatectomy for T2Nx HCC LAPAROSCOPIC CHOLECYSTECTOMY 10/08/2022 LIVER BIOPSY PALATOP CL PALATE ATTACHMENT PHARYNGEAL FLAP age 5 PAST SURGICAL HISTORY OF MRSA cyst removed from face PAST SURGICAL HISTORY OF Cyst removed from mouth SHOULDER SURGERY HX Left tendon repair Social History Tobacco Use Smoking status: Former Packs/day: 1.00 Years: 40.00 Additional pack years: 0.00 Total pack years: 40.00 Types: Cigarettes Quit date: 2017 Years since quittin.2 Passive exposure: Past Smokeless tobacco: Never Tobacco comments: 03/30/2018 Vaping Use Vaping Use: Never used Substance Use Topics Alcohol use: Yes Comment: occassional Drug use: Yes Types: Marijuana Comment: THC edibles, 3x a week FAMILY HISTORY Problem Relation Age of Onset Cancer Mother brain 76 y/o Heart disease Mother Hypertension Mother Diabetes Father Heart disease Father Hypertension Father Heart Attack Father Diabetes Sister other (atrial fib) Sister COPD Sister No Known Problems Sister other (polio) Maternal Grandfather Diabetes Paternal Grandmother No Known Problems Daughter I spent a total of 30 minutes on the date of service which included preparing to see the patient, [id number] patient care, completing clinical documentation, performing a medically appropriate examination, counseling and educating the patient/family/caregiver, ordering medications, tests, or procedures, independently interpreting results (not separately reported), communicating results to the patient/family/caregiver, and care coordination (not separately reported). Vimal Crandall MD, CPE [facility] Provided at: [place], [place] Scribe Attestation: This note was scribed by Esther Short on August 18, 2023 under the direction and supervision of Dr. Vimal Crandall. I attest that all of the information documented is correct to the best of my knowledge. Provider Attestation: I, Vimal Crandall MD, attest that all information documented by the above scribe is correct, and was supervised by me and under my direction. CC: Dr. Frankie [facility] Dr. Denis Lora documented in this encounter [facility] 08-18-2023 Note HNO ID: [id number] Author: VIMAL CRANDALL MD Service: ? Author Type: Physician Type: Progress Notes Filed: 08/18/2023 19:15 Note Text: NAME: Jon Bauer CLINIC NO.: [id number] DATE OF SERVICE: August 18, 2023 (Raz) Some elements in this clinic note that are critical to medical decision making have been carefully reviewed and included from a prior clinic note dated: July 13, 2023 (Raz) Additional Clinicians involved in Jon Bauer's care: Dr. Lomeli, Dr. Frankie Campbell DIAGNOSIS: Multiple myeloma followup ASSESSMENT: This is a 72 year old man diagnosed with an IgG lambda monoclonal gammopathy in 2019 and was then noted to have rising M-spike and PET scan documented a sternal lesion. 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 ISS and R-ISS stage II disease. He had a partial response to induction therapy and has recovered following Autologous stem cell infusion. Up to date on post transplant vaccinations. Mild thrombocytopenia - Stable for now. Additional medical issues include: - Immunodeficiency following HDSCT and patient will continue Acyclovir and post-transplant immunizations per Infectious Disease protocol - Renal failure is improving and we will continue monitoring - Neuropathy is stable - Diabetes mellitus managed by PCP is elevated from steroids. - Hepatocellular carcinoma discovered August 2022, resected October 2022. Initial M-Protein is 3.31 prior to Induction Current M-spike is 0.34 as of 06/09/2022 10/08/2022 - resection of Liver mass right lobe [id number] HCC, 3 cm, G2, + LVI . Will undergo serial observation. No current adjuvant therapy recommended. No recurrence on scans February 2023. (03/23/2023) Held his Revlimid for a week while he is on Bactrim as he is mildly neutropenic. My suspicion is that this is because of Bactrim. This may limit his ability to use this in the future. PLAN: Continue Revlimid RTC in 4 weeks Labs same day Keep follow up with urology in October May need to order ultrasound kidney prior to that visit __ HPI: CASE HISTORY: Reverse Chronological Order 05/24/2023 - MRI Liver: Postsurgical change as described. No LR-5/OPTN Class 5 lesions. 03/10/2023 - US Kidney Bladder: 1.7 cm RIGHT renal lesion is at least a partially complex cystic lesion but may have a solid peripheral component. Renal neoplasm is not excluded. 02/10/2023 - CT liver with IV contrast: Since 10/01/2022, interval partial right hepatectomy. No findings to suggest residual or recurrent disease. A 1.1 cm hypodensity within the right renal upper pole is indeterminate 11/24/2022 - resumed Rev maint. 10/08/2022 - resection of Liver mass right lobe [id number] HCC, 3 cm, G2, + LVI . 06/28/2022 - held Revlimid due to recurring infections. 07/30/2021 - Resumed Rev at 5mg daily due to thrombocytopenia. 07/02/2021 - M-spike 0.36 12/26/2020 - Rx for Maintenance Rev 10mg daily 12/16/2020 - Hospitalization for SBO with intractable nausea 09/19/2020 - HDCT Auto transplant (D0). 08/24/2020 - Pretransplant testing revealed a 24-hour urine with 0.02 gm M spike. Serum M protein was 0.61, serum kappa light chains 15.3, serum lambda light chain 17.0, serum kappa/lambda ratio 0.90 (normal 0.26-1.65) 08/19/2020 - Bone marrow examination 40% cellular with less than 5% plasma cells and normal cytogenetics 02/18/2020-08/25/2020 - RVD 02/01/2020 - PET/CT: No FDG avid neoplastic process in the neck, chest, or A/P. EXTREMITIES/SKELETON: 1.2 cm mildly FDG-avid lytic lesion in the sternum with SUV max of 2.7, may represent a site of active myeloma. No FDG avid destructive osseous lesions elsewhere. Specifically, no hypermetabolic lesions in humeral heads or femurs. 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 06/08/2019 - Bone Survey: Lytic lesions involving bilateral humeral heads and distal right femur Updated Visit, August 18, 2023: Jon returns today for a follow up. He had surgery for trigger finger - pain is much better but he notes some stiffness. He has a follow up scheduled to determine his need for PT. He has restarted Revlimid. Platelets are 108 today. M-spike remains elevated. He has had problems regarding urination since his liver surgery in 10/2022. 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 Updated Visit, July 13, 2023: Jon returns today. RBC still low, 3.82 today. He is having surgery for trigger finger with D (more content not included)... [facility] 07-19-2023 Note [id number] Note [id number]23 Note [facility] SURGERY Clinical Discharge Summary PERSON INFORMATION Name JON BAUER Age 72 Years 1950 Sex MALE Language Djiboutian PCP LETHA BEST Marital Status Phone Med Service Ambulatory Surgery Acct# Arrival 07/18/2023 11:34:36 Visit Reason SURGERY - RELEASE OF LEFT LITTLE, RING, AND MIDDLE TRIGGER FINGERS Acuity LOS 025 03:35 Address: [address] [place] [address] Comment: PROVIDER INFORMATION VITALS INFORMATION Vital Sign Triage Latest Temp Oral Temp Temporal Temp Intravascular Temp Axillary Temp Rectal 02 Sat 99 % 98 % Respiratory Rate Peripheral Pulse Rate Apical Heart Rate Blood Pressure / 90 mmHg / 90 mmHg Comment: MEDICAL INFORMATION Allergy Info: Tamiflu; sulfamethoxazole-trimethoprim; amoxicillin-clavulanate Prescriptions Given: acetaminophen (acetaminophen 500 mg oral tablet) 2 tab(s) Oral (given by mouth) every day as needed for pain. ALPRAZolam (ALPRAZolam 0.5 mg oral tablet) 1 tab(s) Oral (given by mouth) 3 times a day (scheduled) as needed for anxiety. atorvastatin (atorvastatin 10 mg oral tablet) 1 tab(s) Oral (given by mouth) every day. bifidobacterium-lactobacillus (Probiotic Formula) 1 tab(s) Oral (given by mouth) every day. cetirizine (cetirizine 10 mg oral tablet) 1 tab(s) Oral (given by mouth) every day. cholecalciferol (Vitamin D3 1000 intl units oral capsule) 2 cap(s) Oral (given by mouth) every day. escitalopram (Lexapro 10 mg oral tablet) 1 tab(s) Oral (given by mouth) every day. gabapentin (gabapentin 100 mg oral capsule) 1 cap(s) Oral (given by mouth) every day. insulin aspart (NovoLOG FlexPen 100 units/mL injectable solution) 10 unit(s) Subcutaneous (under the skin) once a day before breakfast. insulin aspart (NovoLOG FlexPen 100 units/mL injectable solution) 15 unit(s) Subcutaneous (under the skin) At bedtime. insulin aspart (NovoLOG FlexPen 100 units/mL injectable solution) sliding scale AC and HS. insulin aspart (NovoLOG FlexPen 100 units/mL injectable solution) 12 unit(s) Subcutaneous (under the skin) once a day before lunch. insulin glargine (Basaglar KwikPen 100 units/mL subcutaneous solution) 50 unit(s) Subcutaneous (under the skin) At bedtime. lenalidomide (Revlimid 2.5 mg oral capsule) 1 cap(s) Oral (given by mouth) every day. multivitamin (Vitamin D and K oral tablet) 1 tab(s) Oral (given by mouth) every day. rOPINIRole (rOPINIRole 2 mg oral tablet) 1 tab(s) Oral (given by mouth) every day. Medication List: Medications to Continue That Have Not Changed Other Medications acetaminophen (acetaminophen 500 mg oral tablet) 2 tab(s) Oral (given by mouth) every day as needed for pain. ALPRAZolam (ALPRAZolam 0.5 mg oral tablet) 1 tab(s) Oral (given by mouth) 3 times a day (scheduled) as needed for anxiety. atorvastatin (atorvastatin 10 mg oral tablet) 1 tab(s) Oral (given by mouth) every day. bifidobacterium-lactobacillus (Probiotic Formula) 1 tab(s) Oral (given by mouth) every day. cetirizine (cetirizine 10 mg oral tablet) 1 tab(s) Oral (given by mouth) every day. cholecalciferol (Vitamin D3 1000 intl units oral capsule) 2 cap(s) Oral (given by mouth) every day. escitalopram (Lexapro 10 mg oral tablet) 1 tab(s) Oral (given by mouth) every day. gabapentin (gabapentin 100 mg oral capsule) 1 cap(s) Oral (given by mouth) every day. insulin aspart (NovoLOG FlexPen 100 units/mL injectable solution) 10 unit(s) Subcutaneous (under the skin) once a day before breakfast. insulin aspart (NovoLOG FlexPen 100 units/mL injectable solution) 15 unit(s) Subcutaneous (under the skin) At bedtime. insulin aspart (NovoLOG FlexPen 100 units/mL injectable solution) sliding scale AC and HS. insulin aspart (NovoLOG FlexPen 100 units/mL injectable solution) 12 unit(s) Subcutaneous (under the skin) once a day before lunch. insulin glargine (Basaglar KwikPen 100 units/mL subcutaneous solution) 50 unit(s) Subcutaneous (under the skin) At bedtime. lenalidomide (Revlimid 2.5 mg oral capsule) 1 cap(s) Oral (given by mouth) every day. multivitamin (Vitamin D and K oral tablet) 1 tab(s) Oral (given by mouth) every day. rOPINIRole (rOPINIRole 2 mg oral tablet) 1 tab(s) Oral (given by mouth) every day. Medications to Continue That Have Not Changed Other Medications acetaminophen (acetaminophen 500 mg oral tablet) 2 tab(s) Oral (given by mouth) every day as needed for pain. ALPRAZolam (ALPRAZolam 0.5 mg oral tablet) 1 tab(s) Oral (given by mouth) 3 times a day (scheduled) as needed for anxiety. atorvastatin (atorvastatin 10 mg oral tablet) 1 tab(s) Oral (given by mouth) every day. bifidobacterium-lactobacillus (Probiotic Formula) 1 tab(s) Oral (given by mouth) every day. cetirizine (cetirizine 10 mg oral tablet) 1 tab(s) Oral (given by mouth) every day. cholecalciferol (Vitamin D3 1000 intl units oral capsule) 2 cap(s) Oral (given by mouth) every day. escitalopram (Lexapro 10 mg oral tablet) 1 tab(s) Oral (given b (more content not included)... [facility] 07-18-2023 Note Procedure: Release o f trigger finger left middle finger Release of trigger finger left ring finger Release of trigger finger left little finger Pre Op Diagnosis: Trigger finger left middle finger Trigger finger left ring finger Trigger finger left little finger Post Op Diagnosis: Same Surgeon: Dr. Tee Lorenzana, Anesthesia: MAC local Indication for Surgery: Painful triggering with failure of conservative treatment Findings: Stenotic A1 noah with triggering in the middle, ring and little fingers Blood Loss: Scant Specimen: None Procedure Summary: The patient was positioned supine. The upper extremity was sterilely prepped and draped in usual fashion and a timeout was taken in the operating room. The hand was exsanguinated and a tourniquet was inflated to 250 mmHg. Infiltrated the incision sites with 1% lidocaine with epinephrine. After administration of anesthesia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 daily with breakfast. ACETAMINOPHEN ORAL Take by mouth. MELATONIN ORAL Take by mouth. multivit-minerals/folic acid (CENTRUM MULTIGUMMIES ORAL) Take by mouth. cholecalciferol, vitD3,/vit K2 (VITAMIN D3-VITAMIN K2 ORAL) Take by mouth. L gasseri/B bifidum/B longum (PROBIOTIC COLON CARE ORAL) Take by mouth. BASAGLAR KWIKPEN U-100 INSULIN 100 unit/mL (3 mL) Inject 30 Units subcutaneously every morning. (Patient taking differently: Inject 40 Units subcutaneously daily at bedtime.) insulin aspart U-100 (NOVOLOG FLEXPEN U-100 INSULIN) 100 unit/mL (3 mL) If Blood Glucose (mg/dL) is <110 Give 0 units 111-150 Give 0 units 151-200 Give 2 unit 201-250 Give 4 units 251-300 Give 6 units 301-350 Give 8 units 351-400 Give 10 units >400 Call physician. Insulin [place], Disposable, (BD ULTRA-FINE NAY PEN NEEDLE) 32 gauge x 5/32 Use as directed up to four times daily gabapentin (NEURONTIN) 100 mg capsule Take 1 capsule by mouth daily at bedtime for 30 days. (Patient taking differently: Take 100 mg by mouth three times a day.) rOPINIRole (REQUIP) 2 mg tablet Take 1 tablet by mouth daily at bedtime. Cholecalciferol, Vitamin D3, (VITAMIN D) 25 mcg (1,000 unit) cap Take 2 capsules by mouth once daily. atorvastatin (LIPITOR) 10 mg tablet Take 10 mg by mouth once daily. cetirizine (ZYRTEC) 10 mg tablet Take 10 mg by mouth once daily. LABORATORY VALUES: WBC (k/uL) Date Value 07/13/2023 3.33 (L) RBC (m/uL) Date Value 07/13/2023 3.82 (L) Hemoglobin (g/dL) Date Value 07/13/2023 12.8 (L) Hematocrit (%) Date Value 07/13/2023 37.2 (L) MCV (fL) Date Value 07/13/2023 97.4 MCH (pg) Date Value 07/13/2023 33.5 MCHC (g/dL) Date Value 07/13/2023 34.4 RDW-CV (%) Date Value 07/13/2023 14.4 Platelet Count (k/uL) Date Value 07/13/2023 111 (L) MPV (fL) Date Value 07/13/2023 9.4 Glucose (mg/dL) Date Value 07/13/2023 308 (H) BUN (mg/dL) Date Value 07/13/2023 24 Creatinine (mg/dL) Date Value 07/13/2023 1.27 (H) Sodium (mmol/L) Date Value 07/13/2023 137 Potassium (mmol/L) Date Value 07/13/2023 3.6 (L) Chloride (mmol/L) Date Value 07/13/2023 100 CO2 (mmol/L) Date Value 07/13/2023 26 Protein, Total (g/dL) Date Value 07/13/2023 6.9 07/13/2023 6.7 Albumin (g/dL) Date Value 07/13/2023 4.0 Calcium, Total (mg/dL) Date Value 07/13/2023 9.6 Alkaline Phosphatase (U/L) Date Value 07/13/2023 97 Bilirubin, Total (mg/dL) Date Value 07/13/2023 0.4 AST (U/L) Date Value 07/13/2023 36 ALT (U/L) Date Value 07/13/2023 39 Cholesterol, Total (mg/dL) Date Value 01/19/2023 115 Triglyceride (mg/dL) Date Value 01/19/2023 232 (H) M-Protein Concentration Date Value 06/15/2023 0.63 g/dL 05/18/2023 0.54 g/dL 04/20/2023 0.55 g/dL 03/23/2023 0.49 g/dL 02/16/2023 0.45 g/dL 07/02/2021 0.36 gm/dL 06/04/2021 0.31 gm/dL 04/17/2021 0.35 gm/dL 02/26/2021 0.37 gm/dL 12/26/2020 0.62 gm/dL DIAGNOSIS: (C90.00) Multiple myeloma not having achieved remission (HCC) (primary encounter diagnosis) Plan: B2 MICROGLOBULIN B, CBC + DIFF, COMP METABOLIC PANEL, LD LACTATE DEHYDRO, PHOSPHORUS INORGANIC, PROTEIN ELECTROPHORESIS SERUM W/INTERP, MONOCLONAL PROTEIN, SERUM (BLOOD), URIC ACID BLOOD, CALCIUM IONIZED BLOOD, KAPPA/ORTIZ,FREE,SER (Z94.81) 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), type 2 with complications (HCC) (C22.0) Hepatocellular carcinoma (HCC) (F33.1) Moderate episode of recurrent major depressive disorder (HCC) PAST MEDICAL HISTORY Diagnosis Date Abdominal aortic aneurysm (HCC) Allergic rhinitis Biceps rupture, proximal 04/09/2014 Bicipital tenosynovitis 11/01/2013 Chronic pain COVID-19 06/11/2020 positive test 06/13/20 Depression 09/18/2020 Continue home dose of lexapro Elevated blood protein elevated MGUS Generalized anxiety disorder Glaucoma Hepatocellular carcinoma (HCC) Hypercholesteremia 09/17/2020 Hold Lipitor inpatient Hyperlipemia Hypertension Leukocytosis MRSA infection Multiple myeloma (HCC) 09/17/2020 6 Cycles RVD (February 2020 through August 2020) in a [place] Multiple myeloma not having achieved remission (HCC) 02/04/2020 Neuropathy 08/20/2020 Continue home Gabapentin Obesity Restless leg syndrome 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 Protocol(s): 3422 1C Preparative regimen: Melphalan Mobilization regimen: plerixafor & neupogen Stem cell source: apheresis CD34 cell dose (x10e6/kg): 4.05 Date of transplant: 09/19/20 Type 2 diabetes (HCC) 08/20/2020 Takes metformin, Lantus, victoza & Farxiga Sliding Scale inpatient & Lantus Plan: -Endo following, recs in dc instructions for home Type II or unspecified type diabetes mellitus without mention of complication, uncontrolled PAST SURGICAL HISTORY Procedure Laterality Date EXTENSIVE FINGER SURGERY Right FOOT/TOES SURGERY PROC UNLISTED Left hammer toes and bunions HEPATECTOMY RESCJ TOTAL RIGHT LOBECTOMY 10/08/2022 lap right hepatectomy for T2Nx HCC LAPAROSCOPIC CHOLECYSTECTOMY 10/08/2022 LIVER BIOPSY PALATOP CL PALATE ATTACHMENT PHARYNGEAL FLAP age 5 PAST SURGICAL HISTORY OF MRSA cyst removed from face PAST SURGICAL HISTORY OF Cyst removed from mouth SHOULDER SURGERY HX Left tendon repair Social History Tobacco Use Smoking status: Former Packs/day: 1.00 Years: 40.00 Additional pack years: 0.00 Total pack years: 40.00 Types: Cigarettes Quit date: 2017 Years since quittin.1 Passive exposure: Past Smokeless tobacco: Never Tobacco comments: 03/30/2018 Vaping Use Vaping Use: Never used Substance Use Topics Alcohol use: Yes Comment: occassional Drug use: Yes Types: Marijuana Comment: THC edibles, 3x a week FAMILY HISTORY Problem Relation Age of Onset Cancer Mother brain 76 y/o Heart disease Mother Hypertension Mother Diabetes Father Heart disease Father Hypertension Father Heart Attack Father Diabetes Sister other (atrial fib) Sister COPD Sister No Known Problems Sister other (polio) Maternal Grandfather Diabetes Paternal Grandmother No Known Problems Daughter I spent a total of 30 minutes on the date of service which included preparing to see the patient, [id number] patient care, completing clinical documentation, performing a medically appropriate examination, counseling and educating the patient/family/caregiver, ordering medications, tests, or procedures, independently interpreting results (not separately reported), communicating results to the patient/family/caregiver, and care coordination (not separately reported). Vimal Crandall MD, CPE Hematology and Oncology Services Provided at: [facility], [place], [place] Scribe Attestation: This note was scribed by Esther Short on July 13, 2023 under the direction and supervision of Dr. Vimal Crandall. I attest that all of the information documented is correct to the best of my knowledge. Provider Attestation: I, Vimal Crandall MD, attest that all information documented by the above scribe is correct, and was supervised by me and under my direction. CC: Dr. Frankie Michael Dr. [facility] Dr. Denis Lora documented in this encounter [facility] 06-23-2023 History of Present illness Narrative Images from the original note were not included. HISTORY OF PRESENT ILLNESS: Jon Bauer is an 72 y.o. @ male. Chief complaint LT hand pain New patient: LT hand. Referred by Dr Best LT hand pain x 3 months and getting worse. He notes locking, clicking and triggering in MF, RF and LF that is becoming worse. At times he has to use other hand to unlock fingers and this is very painful. Worse in the AM. Difficulty gripping. Denies N/T. Admits swelling in hand. Painful to open and close LT hand. Uses heating pad and runs hand under hot water. Taking TYL prn Prior treatment: heat, TYL MEDICATION: Current Outpatient Medications on File Prior to Visit Medication Sig Dispense Refill ALPRAZolam (Xanax) 0.5 MG tablet Take 0.5 mg by mouth 3 (three) times a day as needed for anxiety atorvastatin (Lipitor) 10 MG tablet TAKE 1 TABLET BY MOUTH DAILY 90 tablet 4 Cannabinoids (THC Free) 20 MG/ML liquid as directed Orally cetirizine (ZyrTEC) 10 MG tablet Take by mouth cholecalciferol (Vitamin D-3) 25 MCG (1000 UT) capsule Take by mouth Continuous Blood Gluc Sensor (Dexcom G7 Sensor) misc Inject 1 Device under the skin Every 10 (ten) days 10 each 3 dicyclomine (Bentyl) 20 MG tablet Take 20 mg by mouth 4 (four) times a day as needed. fluticasone (Flonase) 50 MCG/ACT nasal spray Administer 1 spray into each nostril in the morning. gabapentin (Neurontin) 100 MG capsule Take 100 mg by mouth in the morning and 100 mg at noon and 100 mg in the evening. glucose blood test strip Use as instructed to check glucose four times daily 400 each 3 insulin aspart (NovoLOG FLEXPEN) 100 UNIT/ML pen Inject 10 Units under the skin in the morning and 10 Units at noon and 10 Units in the evening. Inject with meals. 10 mL 3 insulin glargine (Basaglar KwikPen) 100 UNIT/ML pen Inject 45 Units under the skin at bedtime 12 mL 11 insulin lispro (HumaLOG James KwikPen) 100 UNIT/ML pen Inject 8 Units under the skin in the morning and 8 Units at noon and 8 Units in the evening. Inject with meals. Inject under the skin 3 times a day with meals. Injects 2 units if blood sugar is 151-200, 4 units bs 201-250, 6 units if bs 251-300, 8 units if bs greater than 301. Maximum daily dose is 24 units.. (Patient not taking: Reported on 06/02/2023) 21.6 mL 3 insulin lispro (HumaLOG) 100 UNIT/ML injection Inject under the skin 3 times a day with meals. Injects 2 units if blood sugar is 151-200, 4 units bs 201-250, 6 units if bs 251-300, 8 units if bs greater than 301. (Patient not taking: Reported on 06/02/2023) 10 mL 12 insulin pen needle (Drug [place] Unifine Pentips) 31G X 8 mm misc Inject under the skin 6 (six) times a day. Use as instructed 600 each 3 Jardiance 25 MG Take 25 mg by mouth in the morning. Lancet Device misc 1 Lancet in the morning and 1 Lancet at noon and 1 Lancet in the evening and 1 Lancet before bedtime. 400 each 3 Multiple Vitamins-Minerals (Centrum Adults) chewable tablet Chew mupirocin (Bactroban) 2 % ointment APPLY TO THE AFFECTED AREA(S) TWICE DAILY for 2-3 weeks pen needle 32G x 4 mm misc Use as instructed 100 each 3 Revlimid 5 MG capsule rOPINIRole (Requip) 2 MG tablet Take 2 mg by mouth at bedtime. No current facility-administered medications on file prior to visit. MEDICAL HISTORY: Past Medical History: Diagnosis Date Abnormal liver enzymes Actinic keratosis Adult body mass index 36.0-36.9 Allergic rhinitis Atypical pneumonia BPPV (benign paroxysmal positional vertigo) Cigarette smoker Cleft palate Diabetes mellitus (CMS/HCC) Diverticulitis Diverticulosis of large intestine without perforation or abscess without bleeding Erectile dysfunction Foot pain Frontal sinusitis Gallstones Glaucoma (CMS/HCC) 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 Hx of bronchitis Hyperplastic polyp of sigmoid colon colon polyps, hyperplastic x2, sigmoid and rectume Hypertension (CMS/HCC) Knee pain, bilateral Left inguinal hernia Low testosterone Lytic bone lesions on xray Maxillary sinusitis Mixed hyperlipidemia (CMS/HCC) Monoclonal gammopathy of undetermined significance Myeloma (CMS/HCC) Obesity 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 ACTIVE RANGE OF MOTION: positive triggering. MF,RF, LF PASSIVE RANGE OF MOTION: loss of extension at the IP joint, loss ROM, MF,RF, LF ASSESSMENT: ICD-10-CM 1. Left hand pain M79.642 2. Trigger finger, left middle finger M65.332 3. Trigger finger, left ring finger M65.342 4. Trigger finger, left little finger M65.352 PLAN: I discussed options of surgical and non surgical treatment. Risks/benefits of each and chances for success/ failure. Discussion included but was not limited to the risk of infection, blood clot, failure to improve and need for additional surgery. The patient was advised that surgery is not likely to make them pain free. I answered all of the patients questions. I recommend a LT MF, RF, LF trigger release. The patient was instructed to beth the operative site with the word Yes prior to arriving at the hospital and the patient verbalized an understanding. The patient wants to proceed and informed consent is obtained. Dr. Lorenzana obtained history and examined the patient, I am acting as scribe for Dr. Lorenzana/fredy Lorenzana D.O. documented in this encounter [facility] 06-16-2023 Miscellaneous Notes Fax received from [facility], re: Revlimid 2.5 mg prescription sent 06/15/23, requesting a [facility] authorization number for this script. Provided the following information back to [facility] via fax ([phone]) Adult Male Auth #: [id number] obtained 06/16/23. Thank you Norris Small, PharmD, BCOP documented in this encounter [facility] 06-15-2023 Instructions Vimal Crandall MD - 06/15/2023 3:26 PM EST Continue Revlimid alternating 2.5 mg every day Labs in 4 weeks RTC in 4 weeks documented in this encounter [facility] 06-15-2023 History of Present illness Narrative Images from the original note were not included. NAME: Jon Bauer CLINIC NO.: [id number] DATE OF SERVICE: June 15, 2023 (Raz) Some elements in this clinic note that are critical to medical decision making have been carefully reviewed and included from a prior clinic note dated: May 18, 2023 (Raz) Additional Clinicians involved in Jon Bauer's care: Dr. Lomeli, Dr. Frankie Campbell DIAGNOSIS: Multiple myeloma followup ASSESSMENT: This is a 72 year old man diagnosed with an IgG lambda monoclonal gammopathy in 2019 and was then noted to have rising M-spike and PET scan documented a sternal lesion. 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 ISS and R-ISS stage II disease. He had a partial response to induction therapy and has recovered following Autologous stem cell infusion. Up to date on post transplant vaccinations. Mild thrombocytopenia - Stable for now. Additional medical issues include: - Immunodeficiency following HDSCT and patient will continue Acyclovir and post-transplant immunizations per Infectious Disease protocol - Renal failure is improving and we will continue monitoring - Neuropathy is stable - Diabetes mellitus managed by PCP is elevated from steroids. - Hepatocellular carcinoma discovered August 2022, resected October 2022. Initial M-Protein is 3.31 prior to Induction Current M-spike is 0.34 as of 06/09/2022 10/08/2022 - resection of Liver mass right lobe [id number] HCC, 3 cm, G2, + LVI . Will undergo serial observation. No current adjuvant therapy recommended. No recurrence on scans February 2023. (03/23/2023) Held his Revlimid for a week while he is on Bactrim as he is mildly neutropenic. My suspicion is that this is because of Bactrim. This may limit his ability to use this in the future. PLAN: Continue Revlimid alternating 2.5 mg every day Labs in 4 weeks RTC in 4 weeks Keep follow up with urology in October need to order ultrasound kidney prior to that visit HPI: Case History: 05/24/2023 - MRI Liver: Postsurgical change as described. No LR-5/OPTN Class 5 lesions. 03/10/2023 - US Kidney Bladder: 1.7 cm RIGHT renal lesion is at least a partially complex cystic lesion but may have a solid peripheral component. Renal neoplasm is not excluded. 02/10/2023 - CT liver with IV contrast: Since 10/01/2022, interval partial right hepatectomy. No findings to suggest residual or recurrent disease. A 1.1 cm hypodensity within the right renal upper pole is indeterminate 11/24/2022 - resumed Rev maint. 10/08/2022 - resection of Liver mass right lobe [id number] HCC, 3 cm, G2, + LVI . 06/28/2022 - held Revlimid due to recurring infections. 07/30/2021 - Resumed Rev at 5mg daily due to thrombocytopenia. 07/02/2021 - M-spike 0.36 12/26/2020 - Rx for Maintenance Rev 10mg daily 12/16/2020 - Hospitalization for SBO with intractable nausea 09/19/2020 - HDCT Auto transplant (D0). 08/24/2020 - Pretransplant testing revealed a 24-hour urine with 0.02 gm M spike. Serum M protein was 0.61, serum kappa light chains 15.3, serum lambda light chain 17.0, serum kappa/lambda ratio 0.90 (normal 0.26-1.65) 08/19/2020 - Bone marrow examination was 40% cellular with less than 5% plasma cells and normal cytogenetics 02/18/2020-08/25/2020 - RVD 02/01/2020 - PET/CT: No FDG avid neoplastic process in the neck, chest, or A/P. EXTREMITIES/SKELETON: 1.2 cm mildly FDG-avid lytic lesion in the sternum with SUV max of 2.7, may represent a site of active myeloma. No FDG avid destructive osseous lesions elsewhere. Specifically, no hypermetabolic lesions in humeral heads or femurs. 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 06/08/2019 - Bone Survey: Lytic lesions involving bilateral humeral heads and distal right femur Updated Visit, June 15, 2023: Legs stronger, moving better and is walking more regularly. Trigger finger in his left hand getting worse and will need it released. Decreased dose of rev is working well. Blood sugars improved. Updated Visit, May 18, 2023: Jon is doing well and platelets are improved with lower dose revlimid. Continues follow up for HCC and with urology for the complex renal cyst. Overall has continued improvement with blood sugars. Updated Visit, April 20, 2023: Patient seen urologists that informed him of a complex cyst. He is taking Revlimid every other day, improvements are seen in labs. He has been taking insulin and is managing it better, labs confirm this. He has been having nerve issues, including restless leg syndrome preventing him from sleeping. He also mentions diarrhea, he believes to be from Jardiance. Updated Visit, March 23, 2023: Jon returns today for a follow up and endorses feeling normal. He states he is trying to stay active but takes a day off to rest. Ultrasound shows a 1.7 cm RIGHT renal lesion, at least a partially complex cystic lesion and should follow up with a CT scan. He has a follow up with Urology on April 05. He states he is attending congregation on Tuesday' but doesn't go often because he doesn't want to get sick being around a crowd. We discussed getting the flu vaccination and a COVID booster. Has been holding Revlimid because of cytopenias as directed and CBC pending today, M protien is pending. We reviewed labs, blood count has been low the last few weeks. I will have to call when the results come back. Updated Visit, February 16, 2023: Had MRSA again - has been on Bactrim for 2 weeks WBC is decreased. Platelets are decreased but stable. Reviewed scans with him. Updated Visit, January 19, 2023: Couldn't tolerate MR even with sedation. CT ordered. Continue current Rev as M-spike rise is slowing down Updated Visit, December 22, 2022: Doing much better with blood sugars. Leisa is preparing for the fair. Will adjust maintenance based on results of SPIEP. Updated Visit, November 24, 2022: Saw Dr. Almanza in follow up - will have next MRI with sedation in January for follow-up of hepatocellular carcinoma Eye infection and is on Keflex drops. Blood sugars still running high M-spike now 0.48 - will resume revlimid. Continues with restless leg and can't sleep at night. - is taking THC Gummies. Updated Visit, October 20, 2022: Jon is 72 and returns with Leisa - doing well. Will recheck myeloma labs Reviewed resection pathology and anticipate serial surveillance. Recovering with multiple bruises post-op and has a drain. Updated Visit, September 30, 2022: Couldn't do MRI yesterday because of claustrophobia. Will continue holding Rev until after resection with Dr. Almanza. Updated Visit, September 01, 2022: Jon returns with Leisa. He was found to have a liver mass. Discussed options for workup and will need to continue monitoring for progressive myeloma. Updated Visit, August 04, 2022: Jon Bauer returns for follow-up. He remains off of Revlimid and due to ongoing infection with MRSA to his face. Since his last visit he was at the [facility] emergency room with left-sided upper abdominal pain with several episodes of diarrhea and a cough with productive green phlegm and chest pain. He had a CT of the chest, abdomen and pelvis. He was treated with IV fluids, morphine and Zofran. He was discharged home on dicyclomine 20 mg every 8 hours. He is feeling better today. He denies fevers and chills. No bleeding or abnormal bruising. He remains off of the Revlimid. He has completed a course of antibiotics for MRSA. He is scheduled to see his PCP tomorrow, Dr. Key. He is scheduled for surgery with Dr. Sir Cazares on August 24, 2022. Updated Visit, July 07, 2022: Saw Dr. Michael 1 week ago and will be seeing plastic surgery - Dr. Moore - currently on Doxycycline. Diarrhea improved. Blood sugars still very high - reviewed and educated regarding Sister 2 weeks ago in [facility]. Saw [facility] and had wound cleaned out. Updated Visit, June 09, 2022: Continues to have ID issues now has diarrhea following two rounds of antibiotic for sinus infections and also additional for MRSA of his left face. M-spike stable. IgG is > 700. Blood sugars are > 500 with adjustments in insulin. Updated Visit, May 12, 2022: Jon Bauer returns for scheduled follow-up. He remains on Revlimid 5 mg daily which he is tolerating well. He denies any significant side effects from the Revlimid. He states that he did not take the Revlimid for 3 to 4 days this month after starting the antibiotic because the combination was rough on his stomach. He recently developed a head cold and chest congestion. He was diagnosed with an ear infection by his PCP. He states that he has been feeling under the weather! . He was given a course of amoxicillin and then developed diarrhea. His symptoms did not improve and was recently started on another course of antibiotics and prednisone. He denies fevers and chills. He denies bleeding and abnormal bruising. No new unusual pain. Updated Visit, April 14, 2022: Labs stable. 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 No other major issues. Chronic limitations to duration of exercise. 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 Counts are stable. Updated Visit, February 17, 2022: Jon Bauer returns for follow-up and labs. He is still being treated for MRSA with Bactrim and a face wash. He has had oral thrush on and off for a couple of months. He remains on Revlimid 5 mg daily and is tolerating it well. He denies any significant side effects from the Revlimid. He denies fevers, chills, night sweats and signs/symptoms of infection. No bleeding or abnormal bruising. Overall he is doing well with no new complaints today. No new issues, problems or concerns. Updated Visit, January 18, 2022: Infection in cheek - (MRSA) is resolving currently on Bactrim DS for a 30 day course. Will resume Revlimid 5 mg and if platelets drop below 35k will decrease to 2.5 mg daily. Currently platelets have recovered to 78k nd will resume treatment. Now has a scab on his right forearm and is seeing dermatology. Looks like a superficial burn with skin sloughing 2 friends have recently - just sad about that. Updated Visit, January 01, 2022: Jon returns and is quite uncomfortable. His platelets still low and abscesses have recurred. Blood sugar is high - can't get in to see Dr. Michael - going to the ER Leisa won several prizes rom baking at the [employer] and granddaughter won showing her pig. Updated Visit, December 18, 2021: Jon returns and his facial infection finally cleared up but required debridement and drainage. Had Dalvance IV Thrush resolved Platelets still low Will hold Revlimid for 2 more weeks - still thromboctopenic - will see if clearance from Dalvance will allow him to resolve. Updated Visit, November 20, 2021: Returns today and retells his saga with sinus infection from last visit: Augmentin didn't help - required tessalon, prednisone and levaquin to get things improved. 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 Otherwise doing well from myeloma standpoint. Updated Visit, October 23, 2021: Jon returns alone today and remains on Rev maintenance. Sinus fullness and productive cough will treat empirically. Otherwise continues to do well. Updated Visit, September 25, 2021: Jon Bauer returns for follow-up. He remains on Revlimid 5 mg daily and is tolerating it well. He denies any side effects from the Revlimid. He started his current cycle on September 08. He denies any unusual pain. He denies fevers, chills, night sweats and signs/symptoms of infection. He denies any abnormal bleeding or abnormal bruising. His skin is thin as he ages and tends to bleed easier due to that. His diarrhea is much improved. He remains on Metamucil. He offers no new complaints today. No new issues, problems or concerns. Updated Visit, August 28, 2021: Diarrhea associated with Metformin now improved significantly. His counts are fairly stable but platelets are a little low. Will continue treatment as is for now and consider holding the dose if he gets lower. Back on insulin for managing blood sugars. Updated Visit, July 30, 2021: Still has diarrhea biopsy results pending. Leisa is with him today. He is doing well overall. Will resume Revlimid at 5 mg daily. Platelets are at 100k. Updated Visit, July 16, 2021: Telephone only for 12 minutes Called Jon as requested and his counts were reviewed. His platelets are improving but still less than 100k. Unfortunately he still has daily diarrhea but is seeing Dr. Garay next week. We will plan to hold his Revilimid for a few weeks longer. Updated Visit, July 02, 2021: Platelets suppressed after having restarted revlimid 1 week ago - will ask him to stop. Still having diarrhea and is going to GI tomorrow M-spike continues to drop slowly. If unable to continue Rev, will change maintenance. Updated Visit, May 07, 2021: Will resume lexapro for depression. May be confusing ativan with lexapro No additional rash - Leisa is with him today. If it recurs, we can switch maintenance to Ixazomib or pomalidomide - defer to transplant team. Updated Visit, April 17, 2021: Walking better, neuropathy improving, fatigue resolving, appetite is improved. Only thing worse is restless legs in the evening. Getting his vaccination series. Labs stable. Rash is resolved. Updated Visit, January 28, 2021: Intermittent bowel issues but no significant problems. Both COVID-19 Vax Pfizer as of tomorrow Balance and activity levels are better - dizziness has resolved. recovereing from mild Upper respiratory viral infection Updated Visit, December 26, 2020: Jon returns today reporting a hospitalization for SBO with intractable nausea 12/16/2020. Managed conservatively and resolved. Proceed with vaccination schedule Start with COVID-19 vax. Occult Blood in stools - consider CT at next visit. Updated Visit, December 05, 2020: Occasional swelling in knees and ankles but is walking and getting more active. Still gets cold easily and has intermittent diarrhea but less than previous. Anemia is improved. Still has fatigue but is improving with continued activity. D100 s approximately 12/27/2020 and will need to start maintenance Revlimid beyond that time. He will need COVID Vax and others on schedule that he has. Updated Visit, November 13, 2020: Jon is 70 yo and underwent Autologous transplant. September 19, 2020 was day of Autologous transplant and is doing well. We will continue monitoring his response and will anticipate starting maintenance therapy at the appropriate time. He had recent resolution of GI symptoms due to a prolonged course of Cipro- which once identified was stopped and symptoms resolved. 08/24/2020 his pretransplant testing revealed a 24-hour urine with 0.02 gm M spike. His serum M protein was 0.61, serum kappa light chains 15.3, serum lambda light chain 17.0, serum kappa/lambda ratio 0.90 (normal 0.26-1.65), and his bone marrow examination from 08/19/2020 was 40% cellular with less than 5% plasma cells and normal cytogenetics. His pretransplant disease response was a OK. Transplant overview: Protocol(s): 3422 1C Preparative regimen: Melphalan Mobilization regimen: plerixafor & neupogen Stem cell source: apheresis CD34 cell dose (x10e6/kg): 4.05 Date of transplant: 09/19/2020 Updated Visit, August 11, 2020: Jon is 69 years old and returns to resume treatment with Velcade plus Revlimid just prior to getting autologous transplant. He has recovered from Covid and is much more active and feels quite a bit better. Fatigue is resolved and he had a great week last week. His counts have recovered and he is safe to proceed. Updated Visit, July 11, 2020: Jon is 69 yo and ended up getting COVID-19 and we held treatment. He has now recovered from the acute effects and has also normalized his kidney function. We will resume treatment next week. Still fatigued, didn't end up in the hospital at least. Updated Visit, June 04, 2020: Jon is 69 yo and returns for ongoing treatment of MM with RVD. He is having difficulty with tolerance and complains of persisting diarrhea - will stop revlimid (he's still taking 25mg). He saw Dr. Campbell for transplant and we will get a 24 hour urine IEP with the next assessment. We will have a break in treatment and then start Rev at a lower dose as previously discussed with him. Updated Visit, May 19, 2020: Feel better but has burning in his stomach which we will try mylanta rather than Pepto-bismol. He is due to see BMT tomorrow virtually and otherwise, with the resolution of his symptoms from last week, he will resume treamtent as scheduled. He has responsive disease on RVD. Updated Visit, May 12, 2020: Jon is 69 yo and is being treated from IgG Lambda multiple myeloma with initial M-spike of 3.3 gm and small lytic lesions in both humeral heads and distal right femur. PET CT noted a lesion on the sternum. He is due for cycle 4 but feels lousy with respect to energy and persisting nausea. He has mild sensory neuropathy as well and is struggling with the decadron to manage his sugars. Updated Visit, April 14, 2020: Jon is 69 years old and returns for treatment for his newly diagnosed multiple myeloma currently on RVD. 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 Bone marrow biopsy in December 2019 revealed findings consistent with smoldering myeloma but with small lytic lesions in both humeral heads as well as right distal femur and an additional lesion noted on the sternum by PET/CT, we elected to treat him with 8-10 cycles of RVD. I discussed consideration of pulmonary transplant with him at his last visit and I will plan on referring him following his third cycle of treatment. He reports that he had issues with nausea and diarrhea, as well gas. Everything is settled down, but he is anxious about symptoms going forward. Updated visit, March 17, 2020: Jon is 69 years old and returns with his Leisa for treatment of newly diagnosed multiple myeloma for which he has been started on RVD. He was followed for a monoclonal gammopathy IgG lambda of 3.3 g since November 2018. Biopsy in December 2019 demonstrated what appeared to be smoldering myeloma but he had small lytic lesions in both humeral heads as well as distal right femur. PET/CT showed an additional lesion in the sternum but did not find the femoral or humeral head lesions based on these findings we electively started him on initial treatment. I anticipate 8-10 cycles of RVD and he returns today for his second cycle. He tolerated his first cycle well however he has some unpredictable bouts of diarrhea small rash on his neck that is resolving as well as candidal mucositis that resolved with Diflucan. Overall he is tolerating treatment very well, has no neuropathy and is willing to proceed with additional treatment as planned. Updated Visit, February 08, 2020: Jon Bauer is a 69 year old male seen for a monoclonal gammopathy found on routine labs. The patient was found to have a monoclonal gammopathy of (IgG) 3.3 gm with lambda specificity noted in Dr. BALDWIN's notes from 11/29/2018. 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 A PET/CT wich showed only a sternal lesion with uptake FDG with SUV 2.7 and no uptake in either femur or humeral heads. Findings are consistent with multiple myeloma and we will proceed with induction therapy. I sat with him and his Leisa and extensively reviewed the treatmtent plan as well as the risks and benefits. I anticipate 8-10 cycles of induction. I will discuss HCT with them at their next visit so as to not overwhelm them. He has mild neuropathy from poorly controlled diabetes and coronary artery calcification but otherwise has a well preserved performance status and could be appropriate despite being older than 65. PATHOLOGIC PROFILE/MOLECULAR DATA: 12/17/2019 - bone marrow biopsy and aspirate: Bone marrow, aspirate smear and core biopsy, with clot section and peripheral blood: -Involved by plasma cell neoplasm with 5 to 10% plasma cells. -Normocellular bone marrow 20% with trilineage hematopoiesis. -Stainable iron present. -Comment-the patient has a history of IgG lambda monoclonal protein. The bone marrow shows involvement by a plasma cell neoplasm with 3% plasma cells in the aspirate smear and 5 to 10% plasma cells by immunohistochemistry. Final classification of plasma cell neoplasms require correlation with additional clinical laboratory and/or radiologic findings. FISH for plasma cell neoplasm: Findings demonstrated plasma cell population with trisomy 9, trisomy 15 and gain of genetic material at the CCN D1 locus or trisomy 11. These findings are consistent with the presence of a plasma cell neoplasm and represent standard risk disease. Cytogenetics: Normal male karyotype 46, XY 20 REVIEW OF SYSTEMS Per HPI and otherwise negative by full review of organ systems. ECOG PERFORMANCE STATUS: 0 PHYSICAL EXAMINATION: Vitals: BP 142/70 Pulse 63 Temp (Src) 97.2 (Temporal) Resp 16 Wt 256 lb 9.9 oz (116.4kg) SpO2 100% Body surface area is 2.41 meters squared. Exam limited to gross visualization where appropriate. Gen.: This is an age-appropriate patient in no acute distress. Head: Appears atraumatic with no visible lesions. Eyes: Pupils equally round and reactive to light, extraocular muscles are intact. Neck: Supple. Respiratory: Appears to be respiring comfortably. Neurologic: Nonfocal to gross visualization. Alert and oriented 3. Psychiatric: No evidence of inappropriate anxiety or depression. Skin: Visible areas of skin without rash, lesions, wounds or petechiae. ALLERGIES: ALLERGIES Allergen Reactions Amoxicillin-Pot Cla* Diarrhea Oseltamivir Other: See Comments Sulfamethoxazole-Tr* GI Upset, Unknown MEDICATIONS: ALPRAZolam (XANAX) 0.5 mg tablet Take 1 tablet by mouth three times a day as needed for anxiety (claustrophobia) for up to 90 days. Blood-Glucose Sensor (DEXCOM G7 SENSOR) liana as directed. empagliflozin (JARDIANCE) 10 mg tablet Take 10 mg by mouth daily with breakfast. ACETAMINOPHEN ORAL Take by mouth. MELATONIN ORAL Take by mouth. multivit-minerals/folic acid (CENTRUM MULTIGUMMIES ORAL) Take by mouth. cholecalciferol, vitD3,/vit K2 (VITAMIN D3-VITAMIN K2 ORAL) Take by mouth. L gasseri/B bifidum/B longum (PROBIOTIC COLON CARE ORAL) Take by mouth. BASAGLAR KWIKPEN U-100 INSULIN 100 unit/mL (3 mL) Inject 30 Units subcutaneously every morning. (Patient taking differently: Inject 40 Units subcutaneously daily at bedtime.) insulin aspart U-100 (NOVOLOG FLEXPEN U-100 INSULIN) 100 unit/mL (3 mL) If Blood Glucose (mg/dL) is <110 Give 0 units 111-150 Give 0 units 151-200 Give 2 unit 201-250 Give 4 units 251-300 Give 6 units 301-350 Give 8 units 351-400 Give 10 units >400 Call physician. Insulin [place], Disposable, (BD ULTRA-FINE NAY PEN NEEDLE) 32 gauge x 5/32 Use as directed up to four times daily gabapentin (NEURONTIN) 100 mg capsule Take 1 capsule by mouth daily at bedtime for 30 days. (Patient taking differently: Take 100 mg by mouth three times a day.) rOPINIRole (REQUIP) 2 mg tablet Take 1 tablet by mouth daily at bedtime. Cholecalciferol, Vitamin D3, (VITAMIN D) 25 mcg (1,000 unit) cap Take 2 capsules by mouth once daily. atorvastatin (LIPITOR) 10 mg tablet Take 10 mg by mouth once daily. cetirizine (ZYRTEC) 10 mg tablet Take 10 mg by mouth once daily. lenalidomide (REVLIMID) 2.5 mg capsule Take 1 capsule by mouth once daily. LABORATORY VALUES: WBC (k/uL) Date Value 06/15/2023 4.66 RBC (m/uL) Date Value 06/15/2023 3.85 (L) Hemoglobin (g/dL) Date Value 06/15/2023 12.8 (L) Hematocrit (%) Date Value 06/15/2023 37.3 (L) MCV (fL) Date Value 06/15/2023 96.9 MCH (pg) Date Value 06/15/2023 33.2 MCHC (g/dL) Date Value 06/15/2023 34.3 RDW-CV (%) Date Value 06/15/2023 13.2 Platelet Count (k/uL) Date Value 06/15/2023 138 (L) MPV (fL) Date Value 06/15/2023 8.6 (L) Glucose (mg/dL) Date Value 06/15/2023 195 (H) BUN (mg/dL) Date Value 06/15/2023 25 (H) Creatinine (mg/dL) Date Value 06/15/2023 1.17 Sodium (mmol/L) Date Value 06/15/2023 137 Potassium (mmol/L) Date Value 06/15/2023 3.9 Chloride (mmol/L) Date Value 06/15/2023 102 CO2 (mmol/L) Date Value 06/15/2023 27 Protein, Total (g/dL) Date Value 06/15/2023 6.9 06/15/2023 6.6 Albumin (g/dL) Date Value 06/15/2023 4.0 Calcium, Total (mg/dL) Date Value 06/15/2023 9.6 Alkaline Phosphatase (U/L) Date Value 06/15/2023 95 Bilirubin, Total (mg/dL) Date Value 06/15/2023 0.3 AST (U/L) Date Value 06/15/2023 44 (H) ALT (U/L) Date Value 06/15/2023 36 Cholesterol, Total (mg/dL) Date Value 01/19/2023 115 Triglyceride (mg/dL) Date Value 01/19/2023 232 (H) M-Protein Concentration Date Value 06/15/2023 0.63 g/dL 05/18/2023 0.54 g/dL 04/20/2023 0.55 g/dL 03/23/2023 0.49 g/dL 02/16/2023 0.45 g/dL 07/02/2021 0.36 gm/dL 06/04/2021 0.31 gm/dL 04/17/2021 0.35 gm/dL 02/26/2021 0.37 gm/dL 12/26/2020 0.62 gm/dL DIAGNOSIS: (C90.00) Multiple myeloma not having achieved remission (HCC) (primary encounter diagnosis) Plan: B2 MICROGLOBULIN B, CBC + DIFF, COMP METABOLIC PANEL, LD LACTATE DEHYDRO, PHOSPHORUS INORGANIC, PROTEIN ELECTROPHORESIS SERUM W/INTERP, MONOCLONAL PROTEIN, SERUM (BLOOD), URIC ACID BLOOD, CALCIUM IONIZED BLOOD, KAPPA/ORTIZ,FREE,SER, lenalidomide (REVLIMID) 2.5 mg capsule (Z94.81) 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HCC) Plan: B2 MICROGLOBULIN B, CBC + DIFF, COMP METABOLIC PANEL, LD LACTATE DEHYDRO, PHOSPHORUS INORGANIC, PROTEIN ELECTROPHORESIS SERUM W/INTERP, MONOCLONAL PROTEIN, SERUM (BLOOD), URIC ACID BLOOD, CALCIUM IONIZED BLOOD, KAPPA/ORTIZ,FREE,SER (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), type 2 with complications (HCC) Plan: B2 MICROGLOBULIN B, CBC + DIFF, COMP METABOLIC PANEL, LD LACTATE DEHYDRO, PHOSPHORUS INORGANIC, PROTEIN ELECTROPHORESIS SERUM W/INTERP, MONOCLONAL PROTEIN, SERUM (BLOOD), URIC ACID BLOOD, CALCIUM IONIZED BLOOD, KAPPA/ORTIZ,FREE,SER (C22.0) Hepatocellular carcinoma (HCC) Plan: B2 MICROGLOBULIN B, CBC + DIFF, COMP METABOLIC PANEL, LD LACTATE DEHYDRO, PHOSPHORUS INORGANIC, PROTEIN ELECTROPHORESIS SERUM W/INTERP, MONOCLONAL PROTEIN, SERUM (BLOOD), URIC ACID BLOOD, CALCIUM IONIZED BLOOD, KAPPA/ORTIZ,FREE,SER PAST MEDICAL HISTORY Diagnosis Date Abdominal aortic aneurysm (HCC) Allergic rhinitis Biceps rupture, proximal 04/09/2014 Bicipital tenosynovitis 11/01/2013 Chronic pain COVID-19 06/11/2020 positive test 06/13/20 Depression 09/18/2020 Continue home dose of lexapro Elevated blood protein elevated MGUS Generalized anxiety disorder Glaucoma Hepatocellular carcinoma (HCC) Hypercholesteremia 09/17/2020 Hold Lipitor inpatient Hyperlipemia Hypertension Leukocytosis MRSA infection Multiple myeloma (HCC) 09/17/2020 6 Cycles RVD (February 2020 through August 2020) in a [place] Multiple myeloma not having achieved remission ([facility]) 02/04/2020 Neuropathy 08/20/2020 Continue home Gabapentin Obesity Restless leg syndrome 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 Protocol(s): 3422 1C Preparative regimen: Melphalan Mobilization regimen: plerixafor & neupogen Stem cell source: apheresis CD34 cell dose (x10e6/kg): 4.05 Date of transplant: 09/19/20 Type 2 diabetes (HCC) 08/20/2020 Takes metformin, Lantus, victoza & Farxiga Sliding Scale inpatient & Lantus Plan: -Endo following, recs in dc instructions for home Type II or unspecified type diabetes mellitus without mention of complication, uncontrolled PAST SURGICAL HISTORY Procedure Laterality Date EXTENSIVE FINGER SURGERY Right FOOT/TOES SURGERY PROC UNLISTED Left hammer toes and bunions HEPATECTOMY RESCJ TOTAL RIGHT LOBECTOMY 10/08/2022 lap right hepatectomy for T2Nx [facility] LAPAROSCOPIC CHOLECYSTECTOMY 10/08/2022 LIVER BIOPSY PALATOP CL PALATE ATTACHMENT PHARYNGEAL FLAP age 5 PAST SURGICAL HISTORY OF MRSA cyst removed from face SHOULDER SURGERY HX Left tendon repair Social History Tobacco Use Smoking status: Former Packs/day: 1.00 Years: 40.00 Additional pack years: 0.00 Total pack years: 40.00 Types: Cigarettes Quit date: 2017 Years since quittin.1 Passive exposure: Past Smokeless tobacco: Never Tobacco comments: 03/30/2018 Vaping Use Vaping Use: Never used Substance Use Topics Alcohol use: Yes Comment: occassional Drug use: Yes Types: Marijuana Comment: THC edibles, 3x a week FAMILY HISTORY Problem Relation Age of Onset Cancer Mother brain 76 y/o Heart disease Mother Hypertension Mother Diabetes Father Heart disease Father Hypertension Father Heart Attack Father Diabetes Sister other (atrial fib) Sister COPD Sister No Known Problems Sister other (polio) Maternal Grandfather Diabetes Paternal Grandmother No Known Problems Daughter I spent a total of 30 minutes on the date of service which included preparing to see the patient, [id number] patient care, completing clinical documentation, performing a medically appropriate examination, counseling and educating the patient/family/caregiver, ordering medications, tests, or procedures, independently interpreting results (not separately reported), communicating results to the patient/family/caregiver, and care coordination (not separately reported). Vimal Crandall MD, CPE Hematology and Oncology Services Provided at: [place], [place] CC: Dr. Frankie Michael Dr. [facility] Dr. Denis Lora documented in this encounter [facility] 06-15-2023 Nurse Note Patient did finish antibiotic for a cold yesterday, he saw Dr. Best for well check and he had a sinus cold she did chest xrays and CT, he states he has started to walk at the Rec and feels like that is helping strengthen his legs. He has not received his results of his MRI of the liver he had done. Mariaelena Wiggins MA documented in this encounter [facility] 04-15-2023 Miscellaneous Notes Patient has an appt on 04/20/23. Would you like labs, if so place orders. Mariaelena Wiggins MA documented in this encounter [facility] 04-05-2023 Note HNO ID: [id number] Author: Kelsi Stevens MD Service: ? Author Type: Physician Type: Progress Notes Filed: 04/05/2023 1:16 PM Note Text: [facility] NEW PATIENT HISTORY AND PHYSICAL EXAM PATIENT INFO: Jon Bauer 72 year old REFERRING M.D.: Alejandra Maddox APRN.LONA PCP: Sana Key DO Consultation requested by Alejandra Maddox APRN.LONA for an opinion regarding renal lesion and my final recommendations will be communicated back to the requesting physician by way of shared medical record or letter via US mail. HPI 72 year old male w/h/o history of multiple myeloma, hepatocellular carcinoma, s/p diagnostic laparoscopy, right posterior hepatectomy, cholecystectomy in October 2022 referred for evaluation of renal lesion. CT Liver w/ IV contrast 02/10/2023 - 1.1 cm hypodensity within the right renal upper pole is indeterminate, and could represent a complicated cyst or a small renal mass. Renal US 03/10/2023 - 1.7 cm RIGHT renal lesion is at least a partially complex cystic lesion but may have a solid peripheral component. Renal neoplasm is not excluded Reports he has recovered well from surgery with Dr. Bennett and gets surveillance imaging q 3 months. Does endorse urinary frequency with nocturia ~ 3 times per night. Does not feel like he empties fully throughout the day and has weak stream. Drinks water and tea. No coffee. Occasional soda. PATHOLOGY: None LAB: Creatinine Date Value Ref Range Status 03/23/2023 1.08 0.73 - 1.22 mg/dL Final No results found for: PSA No results found for: COLOR , CLARITY , UGLUC , UBILI , UKET , SPGR , UHB , UPH , UPROT , UROBILINOGEN , NITRITES , LEUKEST IMAGING: CT Liver w/ IV contrast 02/10/2023 IMPRESSION: 1. Since 10/01/2022, interval partial right hepatectomy. No findings to suggest residual or recurrent disease. No suspicious OPTN-5/LR-5 lesion elsewhere within the liver. 2. No evidence of metastatic disease within the abdomen. 3. Cirrhotic liver morphology with steatosis. Stigmata of portal hypertension manifested by a small splenorenal shunt. 4. A 1.1 cm hypodensity within the right renal upper pole is indeterminate, and could represent a complicated cyst or a small renal mass. Continued attention on surveillance imaging is suggested. Renal US 03/10/2023 IMPRESSION: 1.7 cm RIGHT renal lesion is at least a partially complex cystic lesion but may have a solid peripheral component. Renal neoplasm is not excluded. A renal protocol CT scan is recommended for better characterization. ALLERGIES: ALLERGIES Allergen Reactions Amoxicillin-Pot Cla* Diarrhea Oseltamivir Other: See Comments Sulfamethoxazole-Tr* GI Upset, Unknown MEDICATIONS: ALPRAZolam (XANAX) 0.5 mg tablet Take 1 tablet by mouth three times a day as needed for anxiety (claustrophobia) for up to 90 days. REVLIMID 5 mg capsule TAKE 1 CAPSULE BY MOUTH 1 TIME DAILY. Blood-Glucose Sensor ([place] G7 SENSOR) liana as directed. empagliflozin (JARDIANCE) 10 mg tablet Take 10 mg by mouth daily with breakfast. ACETAMINOPHEN ORAL Take by mouth. MELATONIN ORAL Take by mouth. multivit-minerals/folic acid (CENTRUM MULTIGUMMIES ORAL) Take by mouth. cholecalciferol, vitD3,/vit K2 (VITAMIN D3-VITAMIN K2 ORAL) Take by mouth. L gasseri/B bifidum/B longum (PROBIOTIC COLON CARE ORAL) Take by mouth. BASAGLAR KWIKPEN U-100 INSULIN 100 unit/mL (3 mL) Inject 30 Units subcutaneously every morning. (Patient taking differently: Inject 40 Units subcutaneously daily at bedtime.) insulin aspart U-100 (NOVOLOG FLEXPEN U-100 INSULIN) 100 unit/mL (3 mL) If Blood Glucose (mg/dL) is <110 Give 0 units 111-150 Give 0 units 151-200 Give 2 unit 201-250 Give 4 units 251-300 Give 6 units 301-350 Give 8 units 351-400 Give 10 units >400 Call physician. Insulin [place], Disposable, (BD ULTRA-FINE NAY PEN NEEDLE) 32 gauge x 5/32 Use as directed up to four times daily gabapentin (NEURONTIN) 100 mg capsule Take 1 capsule by mouth daily at bedtime for 30 days. (Patient taking differently: Take 100 mg by mouth three times a day.) rOPINIRole (REQUIP) 2 mg tablet Take 1 tablet by mouth daily at bedtime. Cholecalciferol, Vitamin D3, (VITAMIN D) 25 mcg (1,000 unit) cap Take 2 capsules by mouth once daily. atorvastatin (LIPITOR) 10 mg tablet Take 10 mg by mouth once daily. cetirizine (ZYRTEC) 10 mg tablet Take 10 mg by mouth once daily. HISTORIES PAST MEDICAL HISTORY Diagnosis Date Abdominal aortic aneurysm (HCC) Allergic rhinitis Biceps rupture, proximal 04/09/2014 Bicipital tenosynovitis 11/01/2013 Chronic pain COVID-19 06/11/2020 positive test 06/13/20 Depression 09/18/2020 Continue home dose of lexapro Elevated blood protein elevated MGUS Generalized anxiety disorder Glaucoma Hepatocellular carcinoma (HCC) Hypercholesteremia 09/17/2020 Hold Lipitor inpatient Hyperlipemia Hypertension Leukocy (more content not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 appetite is improved. Only thing worse is restless legs in the evening. Getting his vaccination series. Labs stable. Rash is resolved. Updated Visit, January 28, 2021: Intermittent bowel issues but no significant problems. Both COVID-19 Vax Pfizer as of tomorrow Balance and activity levels are better - dizziness has resolved. recovereing from mild Upper respiratory viral infection M-Protein Concentration (gm/dL) Date Value 07/02/2021 0.36 Updated Visit, December 26, 2020: Jon returns today reporting a hospitalization for SBO with intractable nausea 12/16/2020. Managed conservatively and resolved. Proceed with vaccination schedule Start with COVID-19 vax. Occult Blood in stools - consider CT at next visit. Updated Visit, December 05, 2020: Occasional swelling in knees and ankles but is walking and getting more active. Still gets cold easily and has intermittent diarrhea but less than previous. Anemia is improved. Still has fatigue but is improving with continued activity. D100 s approximately 12/27/2020 and will need to start maintenance Revlimid beyond that time. He will need COVID Vax and others on schedule that he has. Updated Visit, November 13, 2020: Jon is 70 yo and underwent Autologous transplantMay 2020 was day of Autologous transplant and is doing well. We will continue monitoring his response and will anticipate starting maintenance therapy at the appropriate time. He had recent resolution of GI symptoms due to a prolonged course of Cipro- which once identified was stopped and symptoms resolved. 08/24/2020 his pretransplant testing revealed a 24-hour urine with 0.02 gm M spike. His serum M protein was 0.61, serum kappa light chains 15.3, serum lambda light chain 17.0, serum kappa/lambda ratio 0.90 (normal 0.26-1.65), and his bone marrow examination from 08/19/2020 was 40% cellular with less than 5% plasma cells and normal cytogenetics. His pretransplant disease response was a OK. Transplant overview: Protocol(s): 3422 1C Preparative regimen: Melphalan Mobilization regimen: plerixafor & neupogen Stem cell source: apheresis CD34 cell dose (x10e6/kg): 4.05 Date of transplant: 09/19/20 Updated Visit, August 11, 2020: Jon is 69 years old and returns to resume treatment with Velcade plus Revlimid just prior to getting autologous transplant. He has recovered from Covid and is much more active and feels quite a bit better. Fatigue is resolved and he had a great week last week. His counts have recovered and he is safe to proceed. Updated Visit, July 11, 2020: Jon is 69 yo and ended up getting COVID-19 and we held treatment. He has now recovered from the acute effects and has also normalized his kidney function. We will resume treatment next week. Still fatigued, didn't end up in the hospital at least. Updated Visit, June 04, 2020: Jon is 69 yo and returns for ongoing treatment of MM with RVD. He is having difficulty with tolerance and complains of persisting diarrhea - will stop revlimid (he's still taking 25mg). He saw Dr. Campbell for transplant and we will get a 24 hour urine IEP with the next assessment. We will have a break in treatment and then start Rev at a lower dose as previously discussed with him. Updated Visit, May 19, 2020: Feel better but has burning in his stomach which we will try mylanta rather than Pepto-bismol. He is due to see BMT tomorrow virtually and otherwise, with the resolution of his symptoms from last week, he will resume treamtent as scheduled. He has responsive disease on RVD. Updated Visit, May 12, 2020: Jon is 69 yo and is being treated from IgG Lambda multiple myeloma with initial M-spike of 3.3 gm and small lytic lesions in both humeral heads and distal right femur. PET CT noted a lesion on the sternum. He is due for cycle 4 but feels lousy with respect to energy and persisting nausea. He has mild sensory neuropathy as well and is struggling with the decadron to manage his sugars. Updated Visit, April 14, 2020: Jon is 69 years old and returns for treatment for his newly diagnosed multiple myeloma currently on RVD. 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 Bone marrow biopsy in December 2019 revealed findings consistent with smoldering myeloma but with small lytic lesions in both humeral heads as well as right distal femur and an additional lesion noted on the sternum by PET/CT, we elected to treat him with 8-10 cycles of RVD. I discussed consideration of pulmonary transplant with him at his last visit and I will plan on referring him following his third cycle of treatment. He reports that he had issues with nausea and diarrhea, as well gas. Everything is settled down, but he is anxious about symptoms going forward. Updated visit, March 17, 2020: Jon is 69 years old and returns with his Leisa for treatment of newly diagnosed multiple myeloma for which he has been started on RVD. He was followed for a monoclonal gammopathy IgG lambda of 3.3 g since November 2018. Biopsy in December 2019 demonstrated what appeared to be smoldering myeloma but he had small lytic lesions in both humeral heads as well as distal right femur. PET/CT showed an additional lesion in the sternum but did not find the femoral or humeral head lesions based on these findings we electively started him on initial treatment. I anticipate 8-10 cycles of RVD and he returns today for his second cycle. He tolerated his first cycle well however he has some unpredictable bouts of diarrhea small rash on his neck that is resolving as well as candidal mucositis that resolved with Diflucan. Overall he is tolerating treatment very well, has no neuropathy and is willing to proceed with additional treatment as planned. Updated Visit, February 08, 2020: Jon Bauer is a 69 year old male seen for a monoclonal gammopathy found on routine labs. The patient was found to have a monoclonal gammopathy of (IgG) 3.3 gm with lambda specificity noted in Dr. BALDWIN's notes from 11/29/2018. He had not yet had a bone marrow biopsy so performed 1 on December 17, 2019 and it appeared that he had at least a smoldering myeloma with small lytic lesions in both Humeral heads as well as the distal right femur. A PET/CT wich showed only a sternal lesion with uptake FDG with SUV 2.7 and no uptake in either femur or humeral heads. Findings are consistent with multiple myeloma and we will proceed with induction therapy. I sat with him and his Leisa and extensively reviewed the treatmtent plan as well as the risks and benefits. I anticipate 8-10 cycles of induction. I will discuss HCT with them at their next visit so as to not overwhelm them. He has mild neuropathy from poorly controlled diabetes and coronary artery calcification but otherwise has a well preserved performance status and could be appropriate despite being older than 65. RADIOGRAPHIC DATA: 2. 02/01/2020 PET/CT: 1. NECK: No FDG avid neoplastic process. 2. CHEST: No FDG avid neoplastic process. 3. ABDOMEN/PELVIS: No FDG avid neoplastic process. 4. EXTREMITIES/SKELETON: * 1.2 cm mildly FDG-avid lytic lesion in the sternum with SUV max of 2.7, may represent a site of active myeloma. * No FDG avid destructive osseous lesions elsewhere. Specifically, no hypermetabolic lesions in humeral heads or femurs. 1. 06/08/2019 Bone Survey: Lytic lesions involving bilateral humeral heads and distal right femur PATHOLOGIC PROFILE/MOLECULAR DATA: 1. 12/17/2019 bone marrow biopsy and aspirate: Bone marrow, aspirate smear and core biopsy, with clot section and peripheral blood: -Involved by plasma cell neoplasm with 5 to 10% plasma cells. -Normocellular bone marrow 20% with trilineage hematopoiesis. -Stainable iron present. -Comment-the patient has a history of IgG lambda monoclonal protein. The bone marrow shows involvement by a plasma cell neoplasm with 3% plasma cells in the aspirate smear and 5 to 10% plasma cells by immunohistochemistry. Final classification of plasma cell neoplasms require correlation with additional clinical laboratory and/or radiologic findings. FISH for plasma cell neoplasm: Findings demonstrated plasma cell population with trisomy 9, trisomy 15 and gain of genetic material at the CCN D1 locus or trisomy 11. These findings are consistent with the presence of a plasma cell neoplasm and represent standard risk disease. Cytogenetics: Normal male karyotype 46, XY 20 REVIEW OF SYSTEMS Per HPI and otherwise negative by full review of organ systems. ECOG PERFORMANCE STATUS: 0 PHYSICAL EXAMINATION: Vitals: BP 138/71 Pulse 52 Temp (Src) 97.5 (Temporal) Resp 16 Ht 5' 10.984 (1.80m) Wt 250 lb 6.4 oz (113.6kg) SpO2 95% BMI 34.94 kg/(m^2). Body surface area is 2.39 meters squared. Exam limited to gross visualization where appropriate. Gen.: This is an age-appropriate patient in no acute distress. Head: Appears atraumatic with no visible lesions. Eyes: Pupils equally round and reactive to light, extraocular muscles are intact. Neck: Supple. Mouth: Mucous membranes appeared to be moist. Respiratory: Appears to be respiring comfortably. Neurologic: Nonfocal to gross visualization. Alert and oriented 3. Psychiatric: No evidence of inappropriate anxiety or depression. Skin: Visible areas of skin without rash, lesions, wounds or petechiae. ALLERGIES: ALLERGIES Allergen Reactions Amoxicillin-Pot Cla* Diarrhea Oseltamivir Other: See Comments Sulfamethoxazole-Tr* GI Upset, Unknown MEDICATIONS: ACETAMINOPHEN ORAL Take by mouth. atorvastatin (LIPITOR) 10 mg tablet Take 10 mg by mouth once daily. BASAGLAR KWIKPEN U-100 INSULIN 100 unit/mL (3 mL) Inject 30 Units subcutaneously every morning. (Patient taking differently: Inject 40 Units subcutaneously daily at bedtime.) Blood-Glucose Sensor (DEXCOM G7 SENSOR) liana as directed. cetirizine (ZYRTEC) 10 mg tablet Take 10 mg by mouth once daily. Cholecalciferol, Vitamin D3, (VITAMIN D) 25 mcg (1,000 unit) cap Take 2 capsules by mouth once daily. cholecalciferol, vitD3,/vit K2 (VITAMIN D3-VITAMIN K2 ORAL) Take by mouth. empagliflozin (JARDIANCE) 10 mg tablet Take 10 mg by mouth daily with breakfast. gabapentin (NEURONTIN) 100 mg capsule Take 1 capsule by mouth daily at bedtime for 30 days. (Patient taking differently: Take 100 mg by mouth three times a day.) insulin aspart U-100 (NOVOLOG FLEXPEN U-100 INSULIN) 100 unit/mL (3 mL) If Blood Glucose (mg/dL) is <110 Give 0 units 111-150 Give 0 units 151-200 Give 2 unit 201-250 Give 4 units 251-300 Give 6 units 301-350 Give 8 units 351-400 Give 10 units >400 Call physician. Insulin [place], Disposable, (BD ULTRA-FINE NAY PEN NEEDLE) 32 gauge x 5/32 Use as directed up to four times daily iv contrast (will be provided with radiology test) CT LIVER W IVCON Inject, intravenously, once for 1 dose. No IV access, insert saline lock prior to the beginning of sedation, infusion, injection of imaging exam. Discontinue saline lock post exam. If Pt. has a central line or IVAD, may access for administration according to line specific nursing protocol. Once exam is complete flush line and de-access according to line specific nursing protocol in the CT contrast administration guidelines link. (Patient not taking: Reported on 02/16/2023) L gasseri/B bifidum/B longum (PROBIOTIC COLON CARE ORAL) Take by mouth. MELATONIN ORAL Take by mouth. multivit-minerals/folic acid (CENTRUM MULTIGUMMIES ORAL) Take by mouth. psyllium husk (METAMUCIL ORAL) Take by mouth. REVLIMID 5 mg capsule TAKE 1 CAPSULE BY MOUTH 1 TIME DAILY. rOPINIRole (REQUIP) 2 mg tablet Take 1 tablet by mouth daily at bedtime. sulfamethoxazole-trimethoprim (BACTRIM DS) 800-160 mg per tablet Take 1 tablet by mouth two times a day. LABORATORY VALUES: WBC (k/uL) Date Value 02/16/2023 2.70 (L) RBC (m/uL) Date Value 02/16/2023 4.35 Hemoglobin (g/dL) Date Value 02/16/2023 13.7 Hematocrit (%) Date Value 02/16/2023 40.7 MCV (fL) Date Value 02/16/2023 93.6 MCH (pg) Date Value 02/16/2023 31.5 MCHC (g/dL) Date Value 02/16/2023 33.7 RDW-CV (%) Date Value 02/16/2023 13.6 Platelet Count (k/uL) Date Value 02/16/2023 98 (L) MPV (fL) Date Value 02/16/2023 9.3 Glucose (mg/dL) Date Value 01/19/2023 211 (H) BUN (mg/dL) Date Value 01/19/2023 19 Creatinine (mg/dL) Date Value 01/19/2023 1.20 Sodium (mmol/L) Date Value 01/19/2023 141 Potassium (mmol/L) Date Value 01/19/2023 3.9 Chloride (mmol/L) Date Value 01/19/2023 107 (H) CO2 (mmol/L) Date Value 01/19/2023 23 Protein, Total (g/dL) Date Value 01/19/2023 7.0 01/19/2023 7.1 Albumin (g/dL) Date Value 01/19/2023 4.2 Calcium, Total (mg/dL) Date Value 01/19/2023 9.3 Alkaline Phosphatase (U/L) Date Value 01/19/2023 96 Bilirubin, Total (mg/dL) Date Value 01/19/2023 0.7 AST (U/L) Date Value 01/19/2023 52 (H) ALT (U/L) Date Value 01/19/2023 54 Cholesterol, Total (mg/dL) Date Value 01/19/2023 115 Triglyceride (mg/dL) Date Value 01/19/2023 232 (H) M-Protein Concentration Date Value 01/19/2023 0.53 g/dL 12/22/2022 0.50 g/dL 11/17/2022 0.48 g/dL 09/24/2022 0.39 g/dL 09/01/2022 0.39 g/dL 07/02/2021 0.36 gm/dL 06/04/2021 0.31 gm/dL 04/17/2021 0.35 gm/dL 02/26/2021 0.37 gm/dL 12/26/2020 0.62 gm/dL DIAGNOSIS: (C90.00) Multiple myeloma not having achieved remission (HCC) (primary encounter diagnosis) Plan: CBC + DIFF, B2 MICROGLOBULIN B, CBC + DIFF, COMP METABOLIC PANEL, LD LACTATE DEHYDRO, PHOSPHORUS INORGANIC, PROTEIN ELECTROPHORESIS SERUM W/INTERP, MONOCLONAL PROTEIN, SERUM (BLOOD), URIC ACID BLOOD, CALCIUM IONIZED BLOOD, KAPPA/ORTIZ,FREE,SER PAST MEDICAL HISTORY Diagnosis Date Abdominal aortic aneurysm (HCC) Allergic rhinitis Biceps rupture, proximal 04/09/2014 Bicipital tenosynovitis 11/01/2013 Chronic pain COVID-19 06/11/2020 positive test 06/13/20 Depression 09/18/2020 Continue home dose of lexapro Elevated blood protein elevated MGUS Generalized anxiety disorder Glaucoma Hepatocellular carcinoma (HCC) Hypercholesteremia 09/17/2020 Hold Lipitor inpatient Hyperlipemia Hypertension Leukocytosis MRSA infection Multiple myeloma (HCC) 09/17/2020 6 Cycles RVD (February 2020 through August 2020) in a [place] Multiple myeloma not having achieved remission (HCC) 02/04/2020 Neuropathy 08/20/2020 Continue home Gabapentin Obesity Restless leg syndrome 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 Protocol(s): 3422 1C Preparative regimen: Melphalan Mobilization regimen: plerixafor & neupogen Stem cell source: apheresis CD34 cell dose (x10e6/kg): 4.05 Date of transplant: 09/19/20 Type 2 diabetes (HCC) 08/20/2020 Takes metformin, Lantus, victoza & Farxiga Sliding Scale inpatient & Lantus Plan: -Endo following, recs in dc instructions for home Type II or unspecified type diabetes mellitus without mention of complication, uncontrolled PAST SURGICAL HISTORY Procedure Laterality Date EXTENSIVE FINGER SURGERY Right FOOT/TOES SURGERY PROC UNLISTED Left hammer toes and bunions HEPATECTOMY RESCJ TOTAL RIGHT LOBECTOMY 10/08/2022 lap right hepatectomy for T2Nx [facility] LAPAROSCOPIC CHOLECYSTECTOMY 10/08/2022 LIVER BIOPSY PALATOP CL PALATE ATTACHMENT PHARYNGEAL FLAP age 5 PAST SURGICAL HISTORY OF MRSA cyst removed from face SHOULDER SURGERY HX Left tendon repair Social History Tobacco Use Smoking status: Former Packs/day: 1.00 Years: 40.00 Additional pack years: 0.00 Total pack years: 40.00 Types: Cigarettes Quit date: 2017 Years since quittin.7 Passive exposure: Past Smokeless tobacco: Never Tobacco comments: 03/30/2018 Vaping Use Vaping Use: Never used Substance Use Topics Alcohol use: Yes Comment: occassional Drug use: Yes Types: Marijuana Comment: THC edibles, 3x a week FAMILY HISTORY Problem Relation Age of Onset Cancer Mother brain 76 y/o Heart disease Mother Hypertension Mother Diabetes Father Heart disease Father Hypertension Father Heart Attack Father Diabetes Sister other (atrial fib) Sister COPD Sister No Known Problems Sister other (polio) Maternal Grandfather Diabetes Paternal Grandmother No Known Problems Daughter I spent a total of 30 minutes on the date of the service which included preparing to see the patient, [id number] patient care, completing clinical documentation, performing a medically appropriate examination, counseling and educating the patient/family/caregiver, ordering medications, tests, or procedures, independently interpreting results (not separately reported), communicating results to the patient/family/caregiver, and care coordination (not separately reported). Vimal Crandall MD, CPE Hematology and Oncology Services Provided at: [place], [place] CC: Dr. Frankie Michael Dr. [facility] Denis Lora documented in this encounter [facility] 02-10-2023 History of Present illness Narrative Radiology Service Progress Note DATE OF SERVICE: February 10, 2023 TIME: 1:33 PM PATIENT WEIGHT: 250LBS PATIENT IDENTITY VERIFICATION COMPLETED USING TWO (2) STANDARD IDENTIFIERS: Name and Date of confirmed by patient verbally. FALL SCREENING: Has the patient had 2 falls in the last year or 1 fall with injury or currently using an Ambulatory Assistive Device (Walker, Cane, Wheelchair, Crutches, etc.)? No PATIENT GENDER DATA: Male ALLERGIES: Reviewed and unchanged CONTRAST ALLERGY: No EXAM: CT -CONTRAST INDUCED NEPHROPATHY RISK FACTORS: Patient age > 60 years and History of Kidney surgery, Kidney neoplasm, Liver disease, and/or any recent Nephrotoxic Chemotherapy or other Nephrotoxic medications CREATININE: Creatinine Date Value Ref Range Status 01/19/2023 1.20 0.73 - 1.22 mg/dL Final 12/22/2022 1.39 (H) 0.73 - 1.22 mg/dL Final 11/17/2022 1.04 0.73 - 1.22 mg/dL Final Estimated Glomerular Filtration Rate Date Value Ref Range Status 01/19/2023 65 >=60 mL/min/1.73m Final Comment: Estimated Glomerular Filtration Rate (eGFR) is calculated using the 2020 CKD-EPI creatinine equation. This equation utilizes serum creatinine, sex, and age as parameters. The creatinine assay has traceable calibration to isotope dilution-mass spectrometry. Refer to KDIGO guidelines for clinical interpretation. In patients with unstable renal function, e.g. those with acute kidney injury, the eGFR may not accurately reflect actual GFR. eGFR- Date Value Ref Range Status 07/02/2021 >60 Final P.O.C.T. RESULTS: N/A February 10, 2023 TREATMENT: N/A IV SITE: Ambulatory: A peripheral IV was started in the Right forearm with a Angio cath: 20 gauge. IV SITE APPEARANCE: Clean,Dry and Intact SIGNATURE: Jazmin Kim RN PATIENT NAME: Jon Bauer DATE: February 10, 2023 TIME: 1:33 PM Radiology Service Progress Note PATIENT NAME: Jon Bauer DATE OF SERVICE: February 10, 2023 TIME: 1:49 PM PATIENT IDENTITY VERIFICATION COMPLETED USING TWO (2) IDENTIFIERS: Name and Date of confirmed by patient verbally. FALL SCREENING: Has the patient had 2 falls in the last year or 1 fall with injury or currently using an Ambulatory Assistive Device (Walker, Cane, Wheelchair, Crutches, etc.)? No PATIENT GENDER DATA: Male PATIENT RELEVANT IMPLANT DATA REVIEWED: Not Applicable RADIOLOGY DEPARTMENT: CT; Exam(s) Completed: Liver PERIPHERAL IV DATA: Site assessment: Clean,Dry and Intact, Site disposition Discontinued SIGNED BY: RT Kem(R) February 10, 2023 1:49 PM documented in this encounter [facility] 01-21-2023 Miscellaneous Notes Ambulatory Pharmacy Prior Authorization Note Provider Intervention Required?: No- Pharmacy completed on your behalf. Rx Plan: Drug: Revlimid Cover My Meds Manning: [id number] Determination: Approved Prior Authorization/Case #: [id number] Prior Authorization Expiration: 01/21/2024 Time to PA Submission in CMM: 15 min Time to PA Determination in CMM: Same day Additional Information: Filling at [facility] For questions relating to this submission, please contact [facility] at [phone] documented in this encounter [facility] 01-19-2023 Instructions Vimal Crandall MD - 01/19/2023 10:16 AM EDT Continue Revlimid 5 mg daily Labs in 4 weeks RTC in [address] liver as ordered by Dr. Almanza. documented in this encounter [facility] 01-19-2023 Nurse Note Patient did not have MRI done, he couldn't do it. They had only given him 2 Xanax which did not work, then they tried to do it from [facility] still no luck. The Doctors office called yesterday and states he can have a CT instead, they need Dr. Youssef to order. Mariaelena Wiggins MA documented in this encounter [facility] 01-19-2023 History of Present illness Narrative NAME: Jon Bauer CLINIC NO.: [id number] DATE OF SERVICE: January 19, 2023 (scott) Some elements in this clinic note that are critical to medical decision making have been carefully reviewed and included from a prior clinic note dated: December 22, 2022 (Raz) Additional Clinicians involved in Jon Bauer's care: Dr. Lomeli, Dr. Frankie Campbell CC: Multiple myeloma followup ASSESSMENT: This is a 72 year old man diagnosed with an IgG lambda monoclonal gammopathy in 2019 and was then noted to have rising M-spike and PET scan documented a sternal lesion. 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 ISS and R-ISS stage II disease. He had a partial response to induction therapy and has recovered following Autologous stem cell infusion. Up to date on post transplant vaccinations. Mild thrombocytopenia - Stable for now. Additional medical issues include: - Immunodeficiency following HDSCT and patient will continue Acyclovir and post-transplant immunizations per Infectious Disease protocol - Renal failure is improving and we will continue monitoring - Neuropathy is stable - Diabetes mellitus managed by PCP is elevated from steroids. - Hepatocellular carcinoma discovered August 2022, resected October 2022. Initial M-Protein is 3.31 prior to Induction Current M-spike is 0.34 as of 06/09/22 10/08/2022 - resection of Liver mass right lobe [id number] HCC, 3 cm, G2, + LVI . Will undergo serial observation. No current adjuvant therapy recommended. PLAN: Continue Revlimid 5 mg daily Labs in 4 weeks RTC in [address] liver as ordered by Dr. Almanza. TREATMENT TO DATE: 11/24/2022 - resumed Rev maint. 10/08/2022 - resection of Liver mass right lobe [id number] HCC, 3 cm, G2, + LVI . 06/28/2022 held Revlimid due to recurring infections. 07/30/2021: Resumed Rev at 5mg daily due to thrombocytopenia. 12/26/2020: Rx for Maintenance Rev 10mg daily 09/19/2020: HDCT Auto transplant (D0). 02/18/2020 - 08/25/2020: RVD HPI: Updated Visit, January 19, 2023: Couldn't tolerate MR even with sedation. CT ordered. Continue current Rev as M-spike rise is slowing down Updated Visit, December 22, 2022: Doing much better with blood sugars. Leisa is preparing for the fair. Will adjust maintenance based on results of SPIEP. Updated Visit, November 24, 2022: Saw Dr. Almazna in follow up - will have next MRI with sedation in January for follow-up of hepatocellular carcinoma Eye infection and is on Keflex drops. Blood sugars still running high M-spike now 0.48 - will resume revlimid. Continues with restless leg and can't sleep at night. - is taking THC Gummies. Updated Visit, October 20, 2022: Jon is 72 and returns with Leisa - doing well. Will recheck myeloma labs Reviewed resection pathology and anticipate serial surveillance. Recovering with multiple bruises post-op and has a drain. Updated Visit, September 30, 2022: Couldn't do MRI yesterday because of claustrophobia. Will continue holding Rev until after resection with Dr. Almanza. Updated Visit, September 01, 2022: Jon returns with Leisa. He was found to have a liver mass. Discussed options for workup and will need to continue monitoring for progressive myeloma. Updated Visit, August 04, 2022: Jon Bauer returns for follow-up. He remains off of Revlimid and due to ongoing infection with MRSA to his face. Since his last visit he was at the [facility] emergency room with left-sided upper abdominal pain with several episodes of diarrhea and a cough with productive green phlegm and chest pain. He had a CT of the chest, abdomen and pelvis. He was treated with IV fluids, morphine and Zofran. He was discharged home on dicyclomine 20 mg every 8 hours. He is feeling better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 wounds or petechiae. ALLERGIES: ALLERGIES Allergen Reactions Oseltamivir Other: See Comments MEDICATIONS: cephALEXin (KEFLEX) 500 mg capsule Take 1 capsule by mouth every 12 hours 6am/6pm. furosemide (LASIX) 20 mg tablet Take 1 tablet by mouth once daily for 7 days. BASAGLAR KWIKPEN U-100 INSULIN 100 unit/mL (3 mL) Inject 30 Units subcutaneously every morning. insulin aspart U-100 (NOVOLOG FLEXPEN U-100 INSULIN) 100 unit/mL (3 mL) If Blood Glucose (mg/dL) is <110 Give 0 units 111-150 Give 0 units 151-200 Give 2 unit 201-250 Give 4 units 251-300 Give 6 units 301-350 Give 8 units 351-400 Give 10 units >400 Call physician. Insulin [place], Disposable, (BD ULTRA-FINE NAY PEN NEEDLE) 32 gauge x 5/32 Use as directed up to four times daily gabapentin (NEURONTIN) 100 mg capsule Take 1 capsule by mouth daily at bedtime for 30 days. rOPINIRole (REQUIP) 2 mg tablet Take 1 tablet by mouth daily at bedtime. escitalopram oxalate (LEXAPRO) 10 mg tablet Take 1 tablet by mouth once daily. Cholecalciferol, Vitamin D3, (VITAMIN D) 25 mcg (1,000 unit) cap Take 2 capsules by mouth once daily. atorvastatin (LIPITOR) 10 mg tablet Take 10 mg by mouth once daily. cetirizine (ZYRTEC) 10 mg tablet Take 10 mg by mouth once daily. iv contrast (will be provided with radiology test) MRI Liver Inject, intravenously, once for 1 dose. No IV access, insert saline lock prior to the beginning of sedation, infusion, injection of imaging exam. Discontinue saline lock post exam. If Pt. has a central line or IVAD, may access for administration according to line specific nursing protocol. Once exam is complete flush line and de-access according to line specific nursing protocol in the MR contrast administration guidelines link. (Patient not taking: Reported on 11/24/2022) oxyCODONE IR (ROXICODONE) 5 mg immediate release tablet Take 1 tablet by mouth every 8 hours as needed. (Patient not taking: Reported on 11/24/2022) iv contrast (will be provided with radiology test) MRI Liver Inject, intravenously, once for 1 dose. No IV access, insert saline lock prior to the beginning of sedation, infusion, injection of imaging exam. Discontinue saline lock post exam. If Pt. has a central line or IVAD, may access for administration according to line specific nursing protocol. Once exam is complete flush line and de-access according to line specific nursing protocol in the MR contrast administration guidelines link. (Patient not taking: Reported on 11/24/2022) LABORATORY VALUES: WBC (k/uL) Date Value 11/17/2022 3.70 RBC (m/uL) Date Value 11/17/2022 3.58 (L) Hemoglobin (g/dL) Date Value 11/17/2022 11.6 (L) Hematocrit (%) Date Value 11/17/2022 34.6 (L) MCV (fL) Date Value 11/17/2022 96.6 MCH (pg) Date Value 11/17/2022 32.4 MCHC (g/dL) Date Value 11/17/2022 33.5 RDW-CV (%) Date Value 11/17/2022 13.8 Platelet Count (k/uL) Date Value 11/17/2022 106 (L) MPV (fL) Date Value 11/17/2022 9.8 Glucose (mg/dL) Date Value 11/17/2022 405 (H) BUN (mg/dL) Date Value 11/17/2022 21 Creatinine (mg/dL) Date Value 11/17/2022 1.04 Sodium (mmol/L) Date Value 11/17/2022 135 (L) Potassium (mmol/L) Date Value 11/17/2022 4.3 Chloride (mmol/L) Date Value 11/17/2022 102 CO2 (mmol/L) Date Value 11/17/2022 24 Protein, Total (g/dL) Date Value 11/17/2022 6.5 11/17/2022 6.3 Albumin (g/dL) Date Value 11/17/2022 4.0 Calcium, Total (mg/dL) Date Value 11/17/2022 9.3 Alkaline Phosphatase (U/L) Date Value 11/17/2022 104 Bilirubin, Total (mg/dL) Date Value 11/17/2022 0.6 AST (U/L) Date Value 11/17/2022 48 (H) ALT (U/L) Date Value 11/17/2022 54 Total Cholesterol, Nonfasting (mg/dL) Date Value 11/20/2021 142 Triglycerides, Nonfasting (mg/dL) Date Value 11/20/2021 456 (H) M-Protein Concentration Date Value 11/17/2022 0.48 g/dL 09/24/2022 0.39 g/dL 09/01/2022 0.39 g/dL 08/04/2022 0.41 g/dL 07/07/2022 0.35 g/dL 07/02/2021 0.36 gm/dL 06/04/2021 0.31 gm/dL 04/17/2021 0.35 gm/dL 02/26/2021 0.37 gm/dL 12/26/2020 0.62 gm/dL DIAGNOSIS: (C90.00) Multiple myeloma not having achieved remission (HCC) (primary encounter diagnosis) Plan: B2 MICROGLOBULIN B, CBC + DIFF, COMP METABOLIC PANEL, LD LACTATE DEHYDRO, PHOSPHORUS INORGANIC, PROTEIN ELECTROPHORESIS SERUM W/INTERP, MONOCLONAL PROTEIN, SERUM (BLOOD), URIC ACID BLOOD, CALCIUM IONIZED BLOOD, KAPPA/ORTIZ,FREE,SER, ALPHA FETOPROTEIN BL, KAPPA/ORTIZ,FREE,SER, B2 MICROGLOBULIN B, CBC + DIFF, COMP METABOLIC PANEL, LD LACTATE DEHYDRO, PHOSPHORUS INORGANIC, PROTEIN ELECTROPHORESIS SERUM W/INTERP, MONOCLONAL PROTEIN, SERUM (BLOOD), URIC ACID BLOOD, CALCIUM IONIZED BLOOD (N18.30) Stage 3 chronic kidney disease, unspecified whether stage 3a or 3b CKD (HCC) Plan: B2 MICROGLOBULIN B, CBC + DIFF, COMP METABOLIC PANEL, LD LACTATE DEHYDRO, PHOSPHORUS INORGANIC, PROTEIN ELECTROPHORESIS SERUM W/INTERP, MONOCLONAL PROTEIN, SERUM (BLOOD), URIC ACID BLOOD, CALCIUM IONIZED BLOOD, KAPPA/ORTIZ,FREE,SER (C22.0) Hepatocellular carcinoma (HCC) Plan: B2 MICROGLOBULIN B, CBC + DIFF, COMP METABOLIC PANEL, LD LACTATE DEHYDRO, PHOSPHORUS INORGANIC, PROTEIN ELECTROPHORESIS SERUM W/INTERP, MONOCLONAL PROTEIN, SERUM (BLOOD), URIC ACID BLOOD, CALCIUM IONIZED BLOOD, KAPPA/ORTIZ,FREE,SER, ALPHA FETOPROTEIN BL, KAPPA/ORTIZ,FREE,SER, B2 MICROGLOBULIN B, CBC + DIFF, COMP METABOLIC PANEL, LD LACTATE DEHYDRO, PHOSPHORUS INORGANIC, PROTEIN ELECTROPHORESIS SERUM W/INTERP, MONOCLONAL PROTEIN, SERUM (BLOOD), URIC ACID BLOOD, CALCIUM IONIZED BLOOD (D69.6) Platelets decreased (HCC) Plan: B2 MICROGLOBULIN B, CBC + DIFF, COMP METABOLIC PANEL, LD LACTATE DEHYDRO, PHOSPHORUS INORGANIC, PROTEIN ELECTROPHORESIS SERUM W/INTERP, MONOCLONAL PROTEIN, SERUM (BLOOD), URIC ACID BLOOD, CALCIUM IONIZED BLOOD, KAPPA/ORTIZ,FREE,SER, ALPHA FETOPROTEIN BL, KAPPA/ORTIZ,FREE,SER, B2 MICROGLOBULIN B, CBC + DIFF, COMP METABOLIC PANEL, LD LACTATE DEHYDRO, PHOSPHORUS INORGANIC, PROTEIN ELECTROPHORESIS SERUM W/INTERP, MONOCLONAL PROTEIN, SERUM (BLOOD), URIC ACID BLOOD, CALCIUM IONIZED BLOOD (E11.9) Type 2 diabetes (HCC) Plan: B2 MICROGLOBULIN B, CBC + DIFF, COMP METABOLIC PANEL, LD LACTATE DEHYDRO, PHOSPHORUS INORGANIC, PROTEIN ELECTROPHORESIS SERUM W/INTERP, MONOCLONAL PROTEIN, SERUM (BLOOD), URIC ACID BLOOD, CALCIUM IONIZED BLOOD, KAPPA/ORTIZ,FREE,SER, ALPHA FETOPROTEIN BL, KAPPA/ORTIZ,FREE,SER, B2 MICROGLOBULIN B, CBC + DIFF, COMP METABOLIC PANEL, LD LACTATE DEHYDRO, PHOSPHORUS INORGANIC, PROTEIN ELECTROPHORESIS SERUM W/INTERP, MONOCLONAL PROTEIN, SERUM (BLOOD), URIC ACID BLOOD, CALCIUM IONIZED BLOOD (Z94.81) 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HCC) Plan: B2 MICROGLOBULIN B, CBC + DIFF, COMP METABOLIC PANEL, LD LACTATE DEHYDRO, PHOSPHORUS INORGANIC, PROTEIN ELECTROPHORESIS SERUM W/INTERP, MONOCLONAL PROTEIN, SERUM (BLOOD), URIC ACID BLOOD, CALCIUM IONIZED BLOOD, KAPPA/ORTIZ,FREE,SER PAST MEDICAL HISTORY Diagnosis Date Abdominal aortic aneurysm (HCC) Allergic rhinitis Biceps rupture, proximal 04/09/2014 Bicipital tenosynovitis 11/01/2013 Chronic pain COVID-19 06/11/2020 positive test 06/13/20 Depression 09/18/2020 Continue home dose of lexapro Elevated blood protein elevated MGUS Generalized anxiety disorder Glaucoma Hepatocellular carcinoma (HCC) Hypercholesteremia 09/17/2020 Hold Lipitor inpatient Hyperlipemia Hypertension Leukocytosis MRSA infection Multiple myeloma (HCC) 09/17/2020 6 Cycles RVD (February 2020 through August 2020) in a [place] Multiple myeloma not having achieved remission (HCC) 02/04/2020 Neuropathy 08/20/2020 Continue home Gabapentin Obesity Restless leg syndrome 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 Protocol(s): 3422 1C Preparative regimen: Melphalan Mobilization regimen: plerixafor & neupogen Stem cell source: apheresis CD34 cell dose (x10e6/kg): 4.05 Date of transplant: 09/19/20 Type 2 diabetes (HCC) 08/20/2020 Takes metformin, Lantus, victoza & Farxiga Sliding Scale inpatient & Lantus Plan: -Endo following, recs in dc instructions for home Type II or unspecified type diabetes mellitus without mention of complication, uncontrolled PAST SURGICAL HISTORY Procedure Laterality Date EXTENSIVE FINGER SURGERY Right FOOT/TOES SURGERY PROC UNLISTED Left hammer toes and bunions HEPATECTOMY RESCJ TOTAL RIGHT LOBECTOMY 10/08/2022 lap right hepatectomy for T2Nx HCC LAPAROSCOPIC CHOLECYSTECTOMY 10/08/2022 LIVER BIOPSY PALATOP CL PALATE ATTACHMENT PHARYNGEAL FLAP age 5 PAST SURGICAL HISTORY OF MRSA cyst removed from face SHOULDER SURGERY HX Left tendon repair Social History Tobacco Use Smoking status: Former Packs/day: 1.00 Years: 40.00 Total pack years: 40.00 Types: Cigarettes Quit date: 2017 Years since quittin.5 Passive exposure: Past Smokeless tobacco: Never Tobacco comments: 03/30/2018 Vaping Use Vaping Use: Never used Substance Use Topics Alcohol use: Yes Comment: occassional Drug use: Yes Types: Marijuana Comment: THC edibles, 3x a week FAMILY HISTORY Problem Relation Age of Onset Cancer Mother brain 76 y/o Heart disease Mother Hypertension Mother Diabetes Father Heart disease Father Hypertension Father Heart Attack Father Diabetes Sister other (atrial fib) Sister COPD Sister No Known Problems Sister other (polio) Maternal Grandfather Diabetes Paternal Grandmother No Known Problems Daughter I spent a total of 40 minutes on the date of the service which included preparing to see the patient, [id number] patient care, completing clinical documentation, performing a medically appropriate examination, counseling and educating the patient/family/caregiver, ordering medications, tests, or procedures, and independently interpreting results (not separately reported). Vimal Crandall MD, CPE Hematology and Oncology Services Provided at: [place], [place] CC: Dr. Frankie Michael Dr. [facility] Srinivasageeta Almanza documented in this encounter [facility] 11-11-2022 Nurse Note What is the reason for your visit today? Follow up Who is your referring physician? Are you having poor oral intake? NO Have you had unintentional weight loss of 15 lbs/7 Kg in the last 3-6 months? NO Bowels: diarrhea at times Wound: Temperature: No Drains: No documented in this encounter [facility] 11-11-2022 History of Present illness Narrative Assessment Postoperative Visit Date of Surgery: 10/08/2022 Surgery: 1. Diagnostic laparoscopy. 2. Laparoscopic right posterior hepatectomy. 3. Laparoscopic cholecystectomy. 4. Intraoperative ultrasound. Post Op Diagnosis: Segment 6, 7 hepatocellular carcinoma Surgical Pathology: A. Liver, right posterior, resection: -Hepatocellular carcinoma, moderately differentiated, 3.0 cm, see synoptic summary. -Lymphovascular invasion identified. -Surgical margins negative for tumor. -Background liver with steatohepatitis and cirrhosis, see comment. -Pathologic stage: pT2Nx. B. Gallbladder, cholecystectomy: -Mild chronic cholecystitis with cholelithiasis FINAL DIAGNOSIS A. Liver, right posterior, resection: -Hepatocellular carcinoma, moderately differentiated, 3.0 cm, see synoptic summary. -Lymphovascular invasion identified. -Surgical margins negative for tumor. -Background liver with steatohepatitis and cirrhosis, see comment. -Pathologic stage: pT2Nx. B. Gallbladder, cholecystectomy: -Mild chronic cholecystitis with cholelithiasis. JS/SIERRA 10/14/2022 Synoptic Report HEPATOCELLULAR CARCINOMA 8th Edition - Protocol posted: 10/28/2021 HEPATOCELLULAR CARCINOMA: RESECTION - A SPECIMEN Procedure Partial hepatectomy, minor (less than 3 segments) TUMOR Histologic Type Hepatocellular carcinoma Histologic Grade G2, moderately differentiated Tumor Focality Solitary TUMOR CHARACTERISTICS Tumor Identification 1 Tumor Site Right lobe Tumor Size Greatest dimension of viable tumor (Centimeters): 3 cm Treatment Effect No known presurgical therapy Tumor Extent Confined to liver Vascular Invasion Small vessel Perineural Invasion Not identified MARGINS Margin Status All margins negative for invasive carcinoma Closest Margin(s) to Invasive Carcinoma Parenchymal Distance from Invasive Carcinoma to Closest Margin 3.4 cm REGIONAL LYMPH NODES Regional Lymph Node Status Not applicable (no regional lymph nodes submitted or found) PATHOLOGIC STAGE CLASSIFICATION (pTNM, AJCC 8th Edition) Reporting of pT, pN, and (when applicable) pM categories is based on information available to the pathologist at the time the report is issued. As per the AJCC (Chapter 1, 8th Ed.) it is the managing physician's responsibility to establish the final pathologic stage based upon all pertinent information, including but potentially not limited to this pathology report. pT Category pT2 pN Category pN not assigned (no nodes submitted or found) ADDITIONAL FINDINGS Additional Findings Cirrhosis Steatohepatitis . Interval HP: The patient is doing well. No nausea, vomiting or diarrhea. No fever. The ports incisions are healing nicely. Physical examination: BP 123/71 Pulse 79 Temp 97.4 Ht 5' 11 (1.80m) Wt 246 lb (111.6kg) SpO2 96% BMI 34.33 kg/(m^2). Soft, nontender, non-distended abdomen. Incisions clean dry and intact Impression: A 72-year-old male patient with a history of HCC, s/p lap right liver resection and cholecystectomy. The patient presented today for a follow-up visit. He is doing well with no complains. His laparoscopic incisions are healing nicely. Plan: Doing very well postoperatively We will get MRI liver in January as a follow-up Will need ongoing follow-up after I evaluated the patient and personally participated in the manning components. I reviewed the RN's, resident's/fellow's note. I agree with the findings and plan. Denis Almanza MD documented in this encounter [facility] 10-31-2022 Evaluation note Encounter Date Diagnosis Assessment Notes Oct, Blepharitis of left upper eyelid, unspecified type (ICD-10 - H01.004) Blepharitis home care material was printed Drink plenty fluids, get plenty of rest. Continue home medications as prescribed. Use the eye ointment as prescribed. Use warm compresses to the eye. Call your eye doctor tomorrow if no improvement. 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 Diagnostic laparoscopy. 2. Laparoscopic right posterior hepatectomy. 3. Laparoscopic cholecystectomy. 4. Intraoperative ultrasound. Post Op Diagnosis: Segment 6, 7 hepatocellular carcinoma Surgical Pathology: FINAL DIAGNOSIS A. Liver, right posterior, resection: -Hepatocellular carcinoma, moderately differentiated, 3.0 cm, see synoptic summary. -Lymphovascular invasion identified. -Surgical margins negative for tumor. -Background liver with steatohepatitis and cirrhosis, see comment. -Pathologic stage: pT2Nx. B. Gallbladder, cholecystectomy: -Mild chronic cholecystitis with cholelithiasis. JS/ZW 10/14/2022 Subjective: Patient is doing quite well after liver resection. His main complaints related to incisional pain and tenderness. His drain has been putting low amount of serosanguineous fluid. Physical examination: BP 132/61 Pulse 63 Temp 97.4 SpO2 96% Abdomen is soft nontender nondistended Incisions intact Drain is serous Impression and plan: Pathology discussed Drains removed Follow-up in 1 month for another postop check Continue follow-up with Dr. Crandall I evaluated the patient and personally participated in the manning components. I reviewed the RN's, resident's/fellow's note. I agree with the findings and plan. Denis Almanza MD [facility] Nurse Note* Jyoti Lopez MA - 10/21/2022 10:28 AM EDT What is the reason for your visit today? Drain removal Who is your referring physician? Are you having poor oral intake? NO Have you had unintentional weight loss of 15 lbs/7 Kg in the last 3-6 months? YES Bowels: diarrhea Wound: drain in place, pain Temperature: No Drains: Yes documented in [facility] encounterC[facility] Instructions* Patient Instructions* Vimal Crandall MD - 10/20/2022 2:40 PM EDT Continue to hold Revlimid 5 mg daily Labs in 4 weeks RTC in 5 weeks documented in this encounterC[facility] History of Present illness Narrative* Vimal Crandall MD - 10/20/2022 2:21 PM EDT Images from the original note were not included. NAME: Jon Bauer CLINIC NO.: [id number] DATE OF SERVICE: October 20, 2022 [facility] Some elements in this clinic note that are critical to medical decision making have been carefully reviewed and included from a prior clinic note dated: September 30, 2022 ([facility]) Additional Clinicians involved in Jon Bauer's care: Dr. Lomeli, Dr. Frankie Campbell CC: Multiple myeloma followup ASSESSMENT: This is a 71 yo man diagnosed with an IgG lambda monoclonal gammopathy in 2019 and was then noted to have rising M-spike and PET scan documented a sternal lesion. 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 ISS and R-ISS stage II disease. He had a partial response to induction therapy and has recovered following Autologous stem cell infusion. He is on schedule with his post transplant vaccinations. Mild thrombocytopenia - Stable for now. Additional medical issues include: - Immunodeficiency following HDSCT and patient will continue Acyclovir and post- transplant immunizations per Infectious Disease protocol - Renal failure is improving and we will continue monitoring - Neuropathy is stable - Diabetes mellitus managed by PCP is elevated from steroids. Initial M-Protein is 3.31 prior to Induction Current M-spike is 0.34 as of 06/09/22 10/08/2022 - resection of Liver mass right lobe [id number] HCC, 3 cm, G2, + LVI . Will undergo serial observation. No current adjuvant therapy recommended. PLAN: Continue to hold Revlimid 5 mg daily Labs in 4 weeks RTC in 5 weeks TREATMENT TO DATE: 06/28/2022 held Revlimid due to recurring infections. 07/30/2021: Resumed Rev at 5mg daily due to thrombocytopenia. 12/26/2020: Rx for Maintenance Rev 10mg daily 09/19/2020: HDCT Auto transplant (D0). 02/18/2020 - 08/25/2020: RVD HPI: Updated Visit, October 20, 2022: Jon is 72 and returns with Leisa - doing well. Will recheck myeloma labs Reviewed resection pathology and anticipate serial surveillance. Recovering with multiple bruises post-op and has a drain. Updated Visit, September 30, 2022: Couldn't do MRI yesterday because of claustrophobia. Will continue holding Rev until after resection with Dr. Almanza. Updated Visit, September 01, 2022: Jon returns with Leisa. He was found to have a liver mass. Discussed options for workup and will need to continue monitoring for progressive myeloma. Updated Visit, August 04, 2022: Jon Bauer returns for follow-up. He remains off of Revlimid and due to ongoing infection with MRSA to his face. Since his last visit he was at the [facility] emergency room with left-sidedupper abdominal pain with several episodes of diarrhea and a cough with productive green phlegm andchest pain. He had a CT of the chest, abdomen and pelvis. He was treated with IV fluids, morphine and Zofran. He was discharged home on dicyclomine 20 mg every 8 hours. He is feeling better today. He denies fevers and chills. No bleeding or abnormal bruising. He remains off of the Revlimid. He has completed a course of antibiotics for MRSA. He is scheduled to see his PCP tomorrow, Dr. Key. He is scheduled for surgery with Dr. Sir Cazares on August 24, 2022. Updated Visit, July 07, 2022: Saw Dr. Michael 1 week ago and will be seeing plastic surgery - Dr. Moore - currently on Doxycycline. Diarrhea improved. Blood sugars still very high - reviewed and educated regarding Sister 2 weeks ago in [facility]. Saw [facility] and had wound cleaned out. Updated Visit, June 09, 2022: Continues to have ID issues now has diarrhea following two rounds of antibiotic for sinus infections and also additional for MRSA of his left face. M-spike stable. IgG is > 700. Blood sugars are > 500 with adjustments in insulin. Updated Visit, May 12, 2022: Jon Bauer returns for scheduled follow-up. He remains on Revlimid 5 mg daily which he is tolerating well. He denies any significant side effects from the Revlimid. He states that he did not take the Revlimid for 3 to 4 days this month after starting the antibiotic because the combination was rough on his stomach. He recently developed a head cold and chest congestion. He was diagnosed with anear infection by his PCP. He states that he has been feeling under the weather! . He was given a course of amoxicillin and then developed diarrhea. His symptoms did not improve and was recently started on another course of antibiotics and prednisone. He denies fevers and chills. He denies bleedingand abnormal bruising. No new unusual pain. Updated Visit, April 14, 2022: Labs stable. 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 No other major issues. Chronic limitations to duration of exercise. 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 Counts are stable. Updated Visit, February 17, 2022: Jon Bauer returns for follow-up and labs. He is still being treated for MRSA with Bactrim and aface wash. He has had oral thrush on and off for a couple of months. He remains on Revlimid 5 mg daily and is tolerating it well. He denies any significant side effects from the Revlimid. He denies fevers, chills, night sweats and signs/symptoms of infection. No bleeding or abnormal bruising. Overal l he is doing well with no new complaints today. No new issues, problems or concerns. Updated Visit, January 18, 2022: Infection in cheek - (MRSA) is resolving currently on Bactrim DS for a 30 day course. Will resume Revlimid 5 mg and if platelets drop below 35k will decrease to 2.5 mg daily. Currently platelets have recovered to 78k nd will resume treatment. Now has a scab on his right forearm and is seeing dermatology. Looks like a superficial burn with skin sloughing 2 friends have recently - just sad about that. Updated Visit, January 01, 2022: Jon returns and is quite uncomfortable. His platelets still low and abscesses have recurred. Blood sugar is high - can't get in to see Dr. Michael - going to the ER Leisa won several prizes rom baking at the fair and granddaughter won showing her pig. Updated Visit, December 18, 2021: Jon returns and his facial infection finally cleared up but required debridement and drainage. HadDalvance IV Thrush resolved Platelets still low Will hold Revlimid for 2 more weeks - still thromboctopenic - will see if clearance from Dalvance will allow him to resolve. Updated Visit, November 20, 2021: Returns today and retells his saga with sinus infection from last visit: Augmentin didn't help - required tessalon, prednisone and levaquin to get things improved. Then got thrush - now has communityacquired MRSA abscess on his face on Bactrim now. Otherwise doing well from myeloma standpoint. Updated Visit, October 23, 2021: Jon returns alone today and remains on Rev maintenance. Sinus fullness and productive cough will treat empirically. Otherwise continues to do well. Updated Visit, September 25, 2021: Jon Bauer returns for follow-up. He remains on Revlimid 5 mg daily and is tolerating it well. He denies any side effects from the Revlimid. He started his current cycle on September 08. He denies any unusual pain. He denies fevers, chills, night sweats and signs/symptoms of infection. He denies any abnormal bleeding or abnormal bruising. His skin is thin as he ages and tends to bleed easier due to that. His diarrhea is much improved. He remains on Metamucil. He offers no new complaints today. No new issues, problems or concerns. Updated Visit, August 28, 2021: Diarrhea associated with Metformin now improved significantly. His counts are fairly stable but platelets are a little low. Will continue treatment as is for now and consider holding the dose if he gets lower. Back on insulin for managing blood sugars. Updated Visit, July 30, 2021: Still has diarrhea biopsy results pending. Leisa is with him today. He is doing well overall. Will resume Revlimid at 5 mg daily. Platelets are at 100k. Updated Visit, July 16, 2021: Telephone only for 12 minutes Called Jon as requested and his counts were reviewed. His platelets are improving but still less than 100k. Unfortunately he still has daily diarrhea but is seeing Dr. Garay next week. We will plan to hold his Revilimid for a few weeks longer. Updated Visit, July 02, 2021: Platelets suppressed after having restarted revlimid 1 week ago - will ask him to stop. Still having diarrhea and is going to GI tomorrow M-spike continues to drop slowly. If unable to continue Rev, will change maintenance. Updated Visit, May 07, 2021: Will resume lexapro for depression. May be confusing ativan with lexapro No additional rash - Leisa is with him today. If it recurs, we can switch maintenance to Ixazomib or pomalidomide - defer to transplant team. Updated Visit, April 17, 2021: Walking better, neuropathy improving, fatigue resolving, appetite is improved. Only thing worse is restless legs in the evening. Getting his vaccination series. Labs stable. Rash is resolved. Updated Visit, January 28, 2021: Intermittent bowel issues but no significant problems. Both COVID-19 Vax Pfizer as of tomorrow Balance and activity levels are better - dizziness has resolved. recovereing from mild Upper respiratory viral infection M-Protein Concentration (gm/dL) Date Value 07/02/2021 0.36 Updated Visit, December 26, 2020: Jon returns today reporting a hospitalization for SBO with intractable nausea 12/16/2020. Managed conservatively and resolved. Proceed with vaccination schedule Start with COVID-19 vax. Occult Blood in stools - consider CT at next visit. Updated Visit, December 05, 2020: Occasional swelling in knees and ankles but is walking and getting more active. Still gets cold easily and has intermittent diarrhea but less than previous. Anemia is improved. Still has fatigue but is improving with continued activity. D100 s approximately 12/27/2020 and will need to start maintenance Revlimid beyond that time. He will need COVID Vax and others on schedule that he has. Updated Visit, November 13, 2020: Jon is 70 yo and underwent Autologous transplantMay 2020 was day of Autologous transplant and is doing well. We will continue monitoring his response and will anticipate starting maintenance therapy at the appropriate time. He had recent resolution of GI symptoms due to a prolonged course of Cipro- which once identified was stopped and symptoms resolved. 08/24/2020 his pretransplant testing revealed a 24-hour urine with 0.02 gm M spike. His serum M protein was 0.61, serum kappa light chains 15.3, serum lambda light chain 17.0, serum kappa/lambda ratio0.90 (normal 0.26-1.65), and his bone marrow examination from 08/19/2020 was 40% cellular with less than 5% plasma cells and normal cytogenetics. His pretransplant disease response was a OK. Transplant overview: Protocol(s): 3422 1C Preparative regimen: Melphalan Mobilization regimen: plerixafor & neupogen Stem cell source: apheresis CD34 cell dose (x10e6/kg): 4.05 Date of transplant: 09/19/20 Updated Visit, August 11, 2020: Jon is 69 years old and returns to resume treatment with Velcade plus Revlimid just prior to getting autologous transplant. He has recovered from Covid and is much more active and feels quite a bit better. Fatigue is resolved and he had a great week last week. His counts have recovered and he is safe to proceed. Updated Visit, July 11, 2020: Jon is 69 yo and ended up getting COVID-19 and we held treatment. He has now recovered from the acute effects and has also normalized his kidney function. We will resume treatment next week. Still fatigued, didn't end up in the hospital at least. Updated Visit, June 04, 2020: Jon is 69 yo and returns for ongoing treatment of MM with RVD. He is having difficulty with tolerance and complains of persisting diarrhea - will stop revlimid (he's still taking 25mg). He saw Dr. Campbell for transplant and we will get a 24 hour urine IEP with the next assessment. We will have a break in treatment and then start Rev at a lower dose as previously discussed with him. Updated Visit, May 19, 2020: Feel better but has burning in his stomach which we will try mylanta rather than Pepto-bismol. He is due to see BMT tomorrow virtually and otherwise, with the resolution of his symptoms from last week, he will resume treamtent as scheduled. He has responsive disease on RVD. Updated Visit, May 12, 2020: Jon is 69 yo and is being treated from IgG Lambda multiple myeloma with initial M-spike of 3.3 gm and small lytic lesions in both humeral heads and distal right femur. PET CT noted a lesion on the sternum. He is due for cycle 4 but feels lousy with respect to energy and persisting nausea. He has mild sensory neuropathy as well and is struggling with the decadron to manage his sugars. Updated Visit, April 14, 2020: Jon is 69 years old and returns for treatment for his newly diagnosed multiple myeloma currently on RVD. 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 Bone marrow biopsy in December 2019 revealed findings consistent with smoldering myeloma but with small lytic lesions in both humeral heads as well as right distal femur and an additional lesion noted on the sternumby PET/CT, we elected to treat him with 8-10 cycles of RVD. I discussed consideration of pulmonary transplant with him at his last visit and I will plan on referring him following his third cycle of treatment. He reports that he had issues with nausea and diarrhea, as well gas. Everything is settled down, but he is anxious about symptoms going forward. Updated visit, March 17, 2020: Jon is 69 years old and returns with his Leisa for treatment of newly diagnosed multiple myeloma for which he has been started on RVD. He was followed for a monoclonal gammopathy IgG lambda of3.3 g since November 2018. Biopsy in December 2019 demonstrated what appeared to be smoldering myeloma but he had small lytic lesions in both humeral heads as well as distal right femur. PET/CT showed an additional lesion in the sternum but did not find the femoral or humeral head lesions based on these findings we electively started him on initial treatment. I anticipate 8-10 cycles of RVD and he returns today for his second cycle. He tolerated his first cycle well however he has some unpredictable bouts of diarrhea small rash on his neck that is resolving as well as candidal mucositis that resolved with Diflucan. Overall he is tolerating treatment very well, has no neuropathy and is willing to proceed with additional treatment as planned. Updated Visit, February 08, 2020: Jon Bauer is a 69 year old male seen for a monoclonal gammopathy found on routine labs. The patient was found to have a monoclonal gammopathy of (IgG) 3.3 gm with lambda specificity noted in Dr. BALDWIN's notes from 11/29/2018. He had not yet had a bone marrow biopsy so performed 1 on December 17, 2019 and it appeared that he had at least a smoldering myeloma with small lytic lesions in both Humeral heads as well as the distal right femur. A PET/CT wich showed only a sternal lesion with uptake FDG with SUV 2.7 and no uptakein either femur or humeral heads. Findings are consistent with multiple myeloma and we will proceed with induction therapy. I sat with him and his Leisa and extensively reviewed the treatmtent plan as well as the risks and benefits. I anticipate 8-10 cycles of induction. I will discuss HCT with them at their next visit so as to not overwhelm them. He has mild neuropathy from poorly controlled diabetes and coronary artery calcification but otherwise has a well preserved performance status and could be appropriate despite being older than 65. RADIOGRAPHIC DATA: Reviewed on February 08, 2020 2. 02/01/2020 PET/CT: 1. NECK: No FDG avid neoplastic process. 2. CHEST: No FDG avid neoplastic process. 3. ABDOMEN/PELVIS: No FDG avid neoplastic process. 4. EXTREMITIES/SKELETON: * 1.2 cm mildly FDG-avid lytic lesion in the sternum with SUV max of 2.7, may represent a site of active myeloma. * No FDG avid destructive osseous lesions elsewhere. Specifically, no hypermetabolic lesions in humeral heads or femurs. 1. 06/08/2019 Bone Survey: Lytic lesions involving bilateral humeral heads and distal right femur PATHOLOGIC PROFILE/MOLECULAR DATA: Reviewed on 02/08/2020 1. 12/17/2019 bone marrow biopsy and aspirate: Bone marrow, aspirate smear and core biopsy, with clot section and peripheral blood: -Involved by plasma cell neoplasm with 5 to 10% plasma cells. -Normocellular bone marrow 20% with trilineage hematopoiesis. -Stainable iron present. -Comment-the patient has a history of IgG lambda monoclonal protein. The bone marrow shows involvement by a plasma cell neoplasm with 3% plasma cells in the aspirate smear and 5 to 10% plasma cells by immunohistochemistry. Final classification of plasma cell neoplasms require correlation with additional clinical laboratory and/or radiologic findings. FISH for plasma cell neoplasm: Findings demonstrated plasma cell population with trisomy 9, [id number] and gain of genetic material at the CCN D1 locus or trisomy 11. These findings are consistent with the presence of a plasma cell neoplasm and represent standard risk disease. Cytogenetics: Normal male karyotype 46, XY 20 REVIEW OF SYSTEMS Per HPI and otherwise negative by full review of organ systems. ECOG PERFORMANCE STATUS: 0 PHYSICAL EXAMINATION: Vitals: BP 116/61 Pulse 87 Temp (Src) 97.3 (Temporal) Resp 16 Ht 5' 10.984 (1.80m) Wt 237 lb 12.8 oz (107.9kg) SpO2 96% BMI 33.18 kg/(m^2). Body surface area is 2.32 meters squared. ECOG 0 Exam limited to gross visualization where appropriate. Gen.: This is an age-appropriate patient in no acute distress. Head: Appears atraumatic with no visible lesions. Eyes: Pupils equally round and reactive to light, extraocular muscles are intact. Neck: Supple. Mouth: Mucous membranes appeared to be moist. Respiratory: Appears to be respiring comfortably. Neurologic: Nonfocal to gross visualization. Alert and oriented 3. Psychiatric: No evidence of inappropriate anxiety or depression. Skin: Visible areas of skin without rash, lesions, wounds or petechiae. ALLERGIES: ALLERGIES Allergen Reactions Oseltamivir Other: See Comments MEDICATIONS: furosemide (LASIX) 20 mg tablet Take 1 tablet by mouth once daily for 7 days. BASAGLAR KWIKPEN U-100 INSULIN 100 unit/mL (3 mL) Inject 30 Units subcutaneously every morning. insulin aspart U-100 (NOVOLOG FLEXPEN U-100 INSULIN) 100 unit/mL (3 mL) If Blood Glucose (mg/dL) is <110 Give 0 units 111-150 Give 0 units 151-200 Give 2 unit 201-250 Give 4 units 251-300 Give 6 units 301-350 Give 8 units 351-400 Give 10 units >400 Call physician. Insulin [place], Disposable, (BD ULTRA-FINE NAY PEN NEEDLE) 32 gauge x 5/32 Use as directed up tofour times daily gabapentin (NEURONTIN) 100 mg capsule Take 1 capsule by mouth daily at bedtime for 30 days. rOPINIRole (REQUIP) 2 mg tablet Take 1 tablet by mouth daily at bedtime. escitalopram oxalate (LEXAPRO) 10 mg tablet Take 1 tablet by mouth once daily. Cholecalciferol, Vitamin D3, (VITAMIN D) 25 mcg (1,000 unit) cap Take 2 capsules by mouth once daily. atorvastatin (LIPITOR) 10 mg tablet Take 10 mg by mouth once daily. cetirizine (ZYRTEC) 10 mg tablet Take 10 mg by mouth once daily. oxyCODONE IR (ROXICODONE) 5 mg immediate release tablet Take 1 tablet by mouth every 8 hours as needed. iv contrast (will be provided with radiology test) MRI Liver Inject, intravenously, once for 1 dose. No IV access, insert saline lock prior to the beginning of sedation, infusion, injection of imaging exam. Discontinue saline lock post exam. If Pt. has a central line or IVAD, may access for administration according to line specific nursing protocol. Once exam is complete flush line and de-access according to line specific nursing protocol in the MR contrast administration guidelines link. (Patient taking differently: MRI Liver Inject, intravenously, once for 1 dose. No IV access, insert saline lock prior to the beginning of sedation, infusion, injection of imaging exam. Discontinue saline lock post exam. If Pt. has a central line or IVAD, may access for administration according to line specific nursing protocol. Once exam is complete flush line and de-access according to line specific nursing protocol in the MR contrast administration guidelines link.) LABORATORY VALUES: WBC (k/uL) Date Value 10/11/2022 6.22 RBC (m/uL) Date Value 10/11/2022 3.23 (L) Hemoglobin (g/dL) Date Value 10/11/2022 10.6 (L) Hematocrit (%) Date Value 10/11/2022 31.2 (L) MCV (fL) Date Value 10/11/2022 96.6 MCH (pg) Date Value 10/11/2022 32.8 MCHC (g/dL) Date Value 10/11/2022 34.0 RDW-CV (%) Date Value 10/11/2022 13.8 Platelet Count (k/uL) Date Value 10/11/2022 80 (L) MPV (fL) Date Value 10/11/2022 9.5 Glucose (mg/dL) Date Value 10/11/2022 169 (H) BUN (mg/dL) Date Value 10/11/2022 14 Creatinine (mg/dL) Date Value 10/11/2022 0.83 Sodium (mmol/L) Date Value 10/11/2022 137 Potassium (mmol/L) Date Value 10/11/2022 3.9 Chloride (mmol/L) Date Value 10/11/2022 103 CO2 (mmol/L) Date Value 10/11/2022 22 Protein, Total (g/dL) Date Value 10/11/2022 5.8 (L) Albumin (g/dL) Date Value 10/11/2022 3.3 (L) Calcium, Total (mg/dL) Date Value 10/11/2022 8.4 (L) Alkaline Phosphatase (U/L) Date Value 10/11/2022 73 Bilirubin, Total (mg/dL) Date Value 10/11/2022 1.0 AST (U/L) Date Value 10/11/2022 119 (H) ALT (U/L) Date Value 10/11/2022 202 (H) Total Cholesterol, Nonfasting (mg/dL) Date Value 11/20/2021 142 Triglycerides, Nonfasting (mg/dL) Date Value 11/20/2021 456 (H) M-Protein Concentration Date Value 09/24/2022 0.39 g/dL 09/01/2022 0.39 g/dL 08/04/2022 0.41 g/dL 07/07/2022 0.35 g/dL 06/09/2022 0.34 g/dL 07/02/2021 0.36 gm/dL 06/04/2021 0.31 gm/dL 04/17/2021 0.35 gm/dL 02/26/2021 0.37 gm/dL 12/26/2020 0.62 gm/dL DIAGNOSIS: (C90.00) Multiple myeloma not having achieved remission (HCC) (primary encounter diagnosis) Plan: IRON + TIBC, FERRITIN BLD, VITAMIN B12 BLOOD, FOLATE SERUM, B2 MICROGLOBULIN B, CBC + DIFF, COMP METABOLIC PANEL, LD LACTATE DEHYDRO, PHOSPHORUS INORGANIC, PROTEIN ELECTROPHORESIS SERUM W/INTERP, MONOCLONAL PROTEIN, SERUM (BLOOD), URIC ACID BLOOD, CALCIUM IONIZED BLOOD, KAPPA/ORTIZ,FREE,SER (C22.0) Hepatocellular carcinoma (HCC) Plan: IRON + TIBC, FERRITIN BLD, VITAMIN B12 BLOOD, FOLATE SERUM, B2 MICROGLOBULIN B, CBC + DIFF, COMP METABOLIC PANEL, LD LACTATE DEHYDRO, PHOSPHORUS INORGANIC, PROTEIN ELECTROPHORESIS SERUM W/INTERP, MONOCLONAL PROTEIN, SERUM (BLOOD), URIC ACID BLOOD, CALCIUM IONIZED BLOOD, KAPPA/ORTIZ,FREE,SER, ALPHA FETOPROTEIN BL (D69.6) Platelets decreased (HCC) Plan: IRON + TIBC, FERRITIN BLD, VITAMIN B12 BLOOD, FOLATE SERUM, B2 MICROGLOBULIN B, CBC + DIFF, COMP METABOLIC PANEL, LD LACTATE DEHYDRO, PHOSPHORUS INORGANIC, PROTEIN ELECTROPHORESIS SERUM W/INTERP, MONOCLONAL PROTEIN, SERUM (BLOOD), URIC ACID BLOOD, CALCIUM IONIZED BLOOD, KAPPA/ORTIZ,FREE,SER PAST MEDICAL HISTORY Diagnosis Date Abdominal aortic aneurysm (HCC) Allergic rhinitis Biceps rupture, proximal 04/09/2014 Bicipital tenosynovitis 11/01/2013 Chronic pain COVID-19 06/11/2020 positive test 06/13/20 Depression 09/18/2020 Continue home dose of lexapro Elevated blood protein elevated MGUS Generalized anxiety disorder Glaucoma Hepatocellular carcinoma (HCC) Hypercholesteremia 09/17/2020 Hold Lipitor inpatient Hyperlipemia Hypertension Leukocytosis MRSA infection Multiple myeloma (HCC) 09/17/2020 6 Cycles RVD (February 2020 through August 2020) in a [place] Multiple myeloma not having achieved remission ([facility]) 02/04/2020 Neuropathy 08/20/2020 Continue home Gabapentin Obesity Restless leg syndrome 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 Protocol(s): 3422 1C Preparative regimen: Melphalan Mobilization regimen: plerixafor & neupogenStem cell source: apheresis CD34 cell dose (x10e6/kg): 4.05 Date of transplant: 09/19/20 Type 2 diabetes (HCC) 08/20/2020 Takes metformin, Lantus, victoza & Farxiga Sliding Scale inpatient & Lantus Plan: -Endo following, recs in dc instructions for home Type II or unspecified type diabetes mellitus without mention of complication, uncontrolled PAST SURGICAL HISTORY Procedure Laterality Date EXTENSIVE FINGER SURGERY Right FOOT/TOES SURGERY PROC UNLISTED Left hammer toes and bunions HEPATECTOMY RESCJ TOTAL RIGHT LOBECTOMY 10/08/2022 lap right hepatectomy for T2Nx [facility] LAPAROSCOPIC CHOLECYSTECTOMY 10/08/2022 LIVER BIOPSY [place] CL PALATE ATTACHMENT PHARYNGEAL FLAP age 5 PAST SURGICAL HISTORY OF MRSA cyst removed from face SHOULDER SURGERY HX Left tendon repair Social History Tobacco Use Smoking status: Former Packs/day: 1.00 Years: 40.00 Pack years: 40.00 Types: Cigarettes Quit date: 2017 Years since quittin.4 Passive exposure: Past Smokeless tobacco: Never Tobacco comments: 03/30/2018 Vaping Use Vaping Use: Never used Substance Use Topics Alcohol use: Yes Comment: occassional Drug use: Yes Types: Marijuana Comment: THC edibles, 3x a week FAMILY HISTORY Problem Relation Age of Onset Cancer Mother brain 76 y/o Heart disease Mother Hypertension Mother Diabetes Father Heart disease Father Hypertension Father Heart Attack Father Diabetes Sister other (atrial fib) Sister COPD Sister No Known Problems Sister other (polio) Maternal Grandfather Diabetes Paternal Grandmother No Known Problems Daughter I spent a total of 30 minutes on the date of the service which included preparing to see the patient, lyda-ga-esul patient care, completing clinical documentation, performing a medically appropriate examination, counseling and educating the patient/family/caregiver, ordering medications, tests, or p rocedures, and independently interpreting results (not separately reported). Vimal Crandall MD, CPE Hematology and Oncology Services Provided at: [place], [place] CC: Dr. Frankie Michael Dr. [facility] Denis Almanza documented in this encounterC[facility]06[facility] Miscellaneous Notes* Telephone Encounter - Tc Domenicogeeta Luque [facility] - 10/07/2022 4:27 PM EDT Summary: IRB# [id number] Research Outreach IRB # [id number] Tight perioperative blood pressure management to reduce serious cardiovascular, renal,and cognitive complications: The GUARDIAN trial PI: Dionte Ronquillo MD, NATALIE, FASA. Outcomes Research Department. Anesthesia Post. [facility]. This is a research study note. Patient assessments recorded here should not guide either clinical care or clinical decision-making. I spoke with Jon Bauer regarding eligibility for the Guardian study. The background, rationale,hypotheses, study related procedures, known risks, potential benefits, and alternatives to researchparticipation were discussed at length per the study phone script. Patient will consider participating in the study. He would like to read the study related materialsas he wants to know more details about the study. I have confirmed that the e-mail address on file is his current one; he agrees to receive study related materials there and we will send the informedconsent today. Tc Palmer MD Research Fellow Anesthesiology Post Outcomes Research Department [facility] documented in this encounterCleveland Clinic [facility]05-26-[facility]23 NoteHNO ID: [id number] Author: RT Remedios(R) Service: Radiology Author Type: Technologist Type: Progress Notes Filed: 10/01/2022 10:39 AM Note Text: Radiology Service Progress Note DATE OF SERVICE: October 01, 2022 TIME: 10:38 AM PATIENT IDENTITY VERIFICATION COMPLETED USING TWO (2) STANDARD IDENTIFIERS: Name and Date of confirmed by patient verbally. FALL SCREENING: Has the patient had 2 falls in the last year or 1 fall with injury or currently using an Ambulatory Assistive Device (Walker, Cane, Wheelchair, Crutches, etc.)? No PATIENT GENDER DATA: Male PATIENT RELEVANT IMPLANT DATA REVIEWED: Yes ALLERGIES: Reviewed and unchanged CONTRAST ALLERGY: NO. EXAM: MRI - CONTRAST TYPE: GROUP II PERIPHERAL IV DATA: Ambulatory: A peripheral IV was started in the Right antecubital site with a Angio cath: 22 gauge. RADIOLOGY DEPARTMENT: MR; Exam(s) Completed: Body: Liver (routine) SIGNATURE: RT Bibiana(R) PATIENT NAME: Jon Bauer DATE: October 01, 2022 TIME: 10:38 [facility]05-23-2023 Miscellaneous Notes* Telephone Encounter - Mana Sapp RN - 09/28/2022 10:11 AM EDT Call to patient PCP office to confirm follow up appointment for blood glucose optimization prior tosurgery. Patient is scheduled for follow up with Dr. Key today 09/28 at 10:30 am * Telephone Encounter - Mana Sapp RN - 09/27/2022 1:29 PM EDT Patient with hyperglycemia noted on pre op labs. This office notified patient's PCP. Updated PCP office on hyperglycemia and scheduled liver resection on 10/08/2022. PCP office will reach out to patient to schedule follow up to optimize blood glucose. Latest Reference Range & Units 04/14/22 13:27 05/12/22 14:03 06/09/22 12:49 07/07/22 12:56 08/04/22 13:12 09/01/22 14:51 09/24/22 11:29 Glucose 74 - 99 mg/dL 348 (H) 433 (H) 552 (H) 297 (H) 295 (H) 425 (H) 516 (H) (H): Data is abnormally high * Telephone Encounter - Mana Sapp RN - 09/20/2022 11:02 AM EDT Patient update on plan for surgery. dx: hepatocellular carcinoma Completed Testing: -08/03/2022 CTA C/A/P -09/30/2022 MRI Liver pending Provided below information to patient. Date of surgery: 10/08/2022 Tentative Procedure: laparoscopic liver resection/cholecystectomy Surgeon: Dr. Denis Almanza Location: [facility] documented in this encounterCleveland [facility]05-12-2023 History of Present illness Narrative* Denis Almanza MD - 09/17/2022 10:00 AM EDT Assessment NEW LIVER CONSULT PATIENT NAME: Jon Bauer REASON FOR CONSULT: HCC REQUESTING PHYSICIAN: Vimal Crandall MD DATE of SERVICE: 09/15/2022 TIME of SERVICE: 3:39 PM PCP: Sana Key DO Chief Complaint: Liver mass HPI: Jon Bauer is a 72 year old male Patient states he had LLQ pain that brought him to the ED on 08/02. Pain was constant without associated N/V, abdominal bloating, changes in bowel movements, jaundice or scleral icterus. Endorses off/on early satiety. Endorses maria isabel colored stools since his stem cell infusion. Underwent US image guiding biopsy of the liver and pathology demonstrated Moderately differentiated hepatocellular carcinoma Denies history of cirrhosis or hepatitis. Minimal alcohol use or IVDU Continues to have intermittent LLQ pain which was relieved Bentyl. History of: Abdominal pain:Yes Nausea/Vomitting:No Hematemesis: No Bleeding per rectum:No Loss of appetite:Yes Diarrhea:No Jaundice:No Pruritis:No Pale colored stools: Yes H/O Cholangitis:No Anemia: No Weight loss:No H/O inflammatory bowel disease:No H/O primary sclerosing cholangitis:No H/O IVDU :No H/O Hepatitis:No H/O Cirrhosis:No Family history of pancreas/liver/biliary cancer:No Chart Review: -referred by Dr. Cesar Crandall for hepatocellular carcinoma -PHx: progressive multiple myeloma s/p autologous bone marrow transplantation 09/19/2020, AAA, HLD, HTN, DM, CKD, thrombocytopenia, -08/03/2022 CTA noted 4.1 liver mass -08/20/2022 liver biopsy: moderately differentiated hepatocellular carcinoma PAST MEDICAL HISTORY: PAST MEDICAL HISTORY Diagnosis Date Abdominal aortic aneurysm (HCC) Allergic rhinitis Biceps rupture, proximal 04/09/2014 Bicipital tenosynovitis 11/01/2013 Chronic pain COVID-19 06/11/2020 positive test 06/13/20 Depression 09/18/2020 Continue home dose of lexapro Elevated blood protein elevated MGUS Generalized anxiety disorder Glaucoma Hypercholesteremia 09/17/2020 Hold Lipitor inpatient Hyperlipemia Hypertension Leukocytosis MRSA infection Multiple myeloma ([facility]) 09/17/2020 6 Cycles RVD (February 2020 through August 2020) in a [place] Multiple myeloma not having achieved remission ([facility]) 02/04/2020 Neuropathy 08/20/2020 Continue home Gabapentin Obesity Restless leg syndrome 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 Protocol(s): 3422 1C Preparative regimen: Melphalan Mobilization regimen: plerixafor & neupogenStem cell source: apheresis CD34 cell dose (x10e6/kg): 4.05 Date of transplant: 09/19/20 Type 2 diabetes ([facility]) 08/20/2020 Takes metformin, Lantus, victoza & Farxiga Sliding Scale inpatient & Lantus Plan: -Endo following, recs in dc instructions for home Type II or unspecified type diabetes mellitus without mention of complication, uncontrolled PAST SURGICAL HISTORY: PAST SURGICAL HISTORY Procedure Laterality Date EXTENSIVE FINGER SURGERY Right FOOT/TOES SURGERY PROC UNLISTED Left hammer toes and bunions LIVER BIOPSY PALATOP CL PALATE ATTACHMENT PHARYNGEAL FLAP age 5 PAST SURGICAL HISTORY OF MRSA cyst removed from face SHOULDER SURGERY HX Left tendon repair FAMILY HISTORY: FAMILY HISTORY Problem Relation Age of Onset Cancer Mother brain 76 y/o Heart disease Mother Hypertension Mother Diabetes Father Heart disease Father Hypertension Father Heart Attack Father Diabetes Sister other (atrial fib) Sister COPD Sister No Known Problems Sister other (polio) Maternal Grandfather Diabetes Paternal Grandmother No Known Problems Daughter SOCIAL HISTORY: Social History Tobacco Use Smoking status: Former Packs/day: 1.00 Years: 40.00 Pack years: 40.00 Types: Cigarettes Passive exposure: Past Smokeless tobacco: Never Tobacco comments: 03/30/2018 Vaping Use Vaping Use: Never used Substance Use Topics Alcohol use: Yes Comment: occassional Drug use: Yes Types: Marijuana Comment: THC edibles, 3x a week Review of Systems: The remainder of the review of systems is negative. PHYSICAL EXAMINATION: BP 164/89 (BP Site: Left Arm) Pulse (!) 53 Ht 181.6 cm (5' 11.5 ) Wt 111.3 kg (245 lb 6.4 oz) BMI 33.75 kg/m General appearance: Well appearing, alert, in no acute distress, well-hydrated, well nourished. Skin: Skin color, texture, turgor normal, no suspicious rashes or lesions Head: Normocephalic, no masses, lesions, tenderness or abnormalities Eyes: Anicteric sclera. Pupils are equally round and reactive to light. Extraocular movements are intact. Abdomen: Normal abdominal exam, Abdomen soft, non-tender. Bowel sounds normal. No masses, organomegaly Groin: No overt clinical evidence of hernias Musculoskeletal: No joint swelling, deformity, or tenderness Peripheral pulses: Normal Neuro: Gait normal. IMAGING: Reviewed 09/29/2022 MRI Liver pending 08/03/2022 CTA C/A/P [ID [id number]] LABS: Thrombocytopenia with a platelet count of around 96,000. Mildly elevated alkaline phosphatase, AST ALT. Otherwise unremarkable LFTs. IMPRESSION: Hepatocellular carcinoma PLAN: Consider possible resection Obtain routine labs, tumor markers, pre-op coags, MRI liver, remote hepatitis panel Jon Bauer is a very pleasant 72 year old male, primary care physician Sana Key DO, This office note will be sent to the referring provider via electronic medical record and US mail. Denis Almanza MD Jon Bauer is a very pleasant 72 year old male, primary care physician Sana Key DO, referred to me by Dr. Vimal Crandall for newly diagnosed liver mass. 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 He also has other medical issues including AAA, hyperlipidemia, diabetes, CKD. His thrombocytopenia is felt to be related to multiple myeloma. He was worked up for abdominal discomfort interestingly his pain was in the left lower quadrant and a CT scan noted a liver mass. Subsequent work-up included a liver biopsy which confirmed hepatocellular carcinoma and the patient was referred to me. He does not have any pre-existing liver comorbidities, never been diagnosed with hepatitis, cirrhosis, CORNEJO or other liver issues. Apart from the multiple myeloma there is no other history of malignant diseases. He does not smoke and he does not consume significant amounts of alcohol. Rest of his history and his exam is as above and otherwise noncontributory. His groin exam did not reveal any evidence of hernias. I reviewed his imaging including his CT chest abdomen pelvis. A 4.1 cm is noted in his liver. There is no additional liver masses. The liver does not look overtly cirrhotic. There is no evidence of any metastasis. He does have gallstones 2. Patient with hepatocellular carcinoma, 4.1 cm in size, segment 6, would be amenable to surgical resection. We have discussed other options including transplant, liver directed therapy, percutaneous ablations, laparoscopic ablations and at this time have decided that liver resection is the most suita ble preferred option. This can usually be completed laparoscopically. Of also discussed regarding acholecystectomy at the same time. At this point an MRI liver is pending on the of this month, will make final management recommendations after that. Awaiting MRI liver Plan laparoscopic liver resection and cholecystectomy Risk benefits and alternatives explained I have discussed with the patient regarding laparoscopic possible open resection of liver, possiblecholecystectomy with cholangiogram, possible bile duct reconstruction. Today we discussed risk benefits and alternatives to surgery including risk of infection, bleeding needing blood transfusions orreoperation, enterotomies, conversion to open, post operative bile leak, major biliary injury requiring reconstruction, postoperative liver failure,post operative anastamotic break down, need for more operations, scar formation and post operative pain. Patient also understand possibility of a prolonged post operative course, prolonged ICU stay and need for mechanical ventilation. Patient understands risk of medical complications including pneumonia, ND, UTI and . Patient expressed understanding and consented to the surgery. Deins Almanza MD Medical Decision Making: Problems: High: Illness/injury w/ threat to life/body function Data: Unique test result(s) reviewed: 3+ Unique test(s) ordered: 3+ Risk: High: Decision on elective major surgery w/ risk factors Medical Decision Making Level: 5 - High documented in this encounterCleveland Clinic [facility]04-26-2023 Miscellaneous Notes* Telephone Encounter - Wilber Foote - 09/01/2022 4:[address] Vimal Crandall is referring Jon to Dr. Denis Almanza. Dx: New HCC. documented in this encounterCleveland Clinic Eucl[facility]04-26-2023 Instructions* Patient Instructions* Vimal Crandall MD - 09/01/2022 3:50 PM EDT Continue to hold Revlimid 5 mg daily MRI Liver [facility] [place] Referral to Dr. Almanza for liver cancer Follow up in 4 weeks - CBC, CMP and myeloma profile labs. documented in this encounterCleveland Clinic [facility]ucl[facility]04-26-2023 History of Present illness Narrative* Vimal Crandall MD - 09/01/2022 3:28 PM EDT Images from the original note were not included. NAME: Jon Bauer [facility] NO.: [id number] DATE OF SERVICE: September 01, 2022 (Raz) Some elements in this clinic note that are critical to medical decision making have been carefully reviewed and included from a prior clinic note dated: August 04, 2022 (Haroon) Additional Clinicians involved in Jon Bauer's care: Dr. Lomeli, Dr. Frankie Campbell CC: Multiple myeloma followup ASSESSMENT: This is a 71 yo man diagnosed with an IgG lambda monoclonal gammopathy in 2019 and was then noted to have rising M-spike and PET scan documented a sternal lesion. 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 ISS and R-ISS stage II disease. He had a partial response to induction therapy and has recovered following Autologous stem cell infusion. He is on schedule with his post transplant vaccinations. Mild thrombocytopenia - Stable for now. Additional medical issues include: - Immunodeficiency following HDSCT and patient will continue Acyclovir and post- transplant immunizations per Infectious Disease protocol - Renal failure is improving and we will continue monitoring - Neuropathy is stable - Diabetes mellitus managed by PCP is elevated from steroids. Initial M-Protein is 3.31 prior to Induction Current M-spike is 0.34 as of 06/09/22 Now has a liver mass concerning for HCC. PLAN: Continue to hold Revlimid 5 mg daily MRI Liver [facility] - [place] Referral to Dr. Almanza for liver cancer Follow up in 4 weeks - CBC, CMP and myeloma profile labs. TREATMENT TO DATE: 4. 07/30/2021: Resumed Rev at 5mg daily due to thrombocytopenia. 3. 12/26/2020: Rx for Maintenance Rev 10mg daily 2. 09/19/2020: HDCT Auto transplant (D0). 1. 02/18/2020 - 08/25/2020: RVD HPI: Updated Visit, September 01, 2022: Jon returns with Leisa. He was found to have a liver mass. Discussed options for workup and will need to continue monitoring for progressive myeloma. Updated Visit, August 04, 2022: Jon Bauer returns for follow-up. He remains off of Revlimid and due to ongoing infection with MRSA to his face. Since his last visit he was at the [facility] emergency room with left-sidedupper abdominal pain with several episodes of diarrhea and a cough with productive green phlegm andchest pain. He had a CT of the chest, abdomen and pelvis. He was treated with IV fluids, morphine and Zofran. He was discharged home on dicyclomine 20 mg every 8 hours. He is feeling better today. He denies fevers and chills. No bleeding or abnormal bruising. He remains off of the Revlimid. He has completed a course of antibiotics for MRSA. He is scheduled to see his PCP tomorrow, Dr. Key. He is scheduled for surgery with Dr. Sir Cazares on August 24, 2022. Updated Visit, July 07, 2022: Saw Dr. Michael 1 week ago and will be seeing plastic surgery - Dr. Moore - currently on Doxycycline. Diarrhea improved. Blood sugars still very high - reviewed and educated regarding Sister 2 weeks ago in [facility]. Saw Derm partners and had wound cleaned out. Updated Visit, June 09, 2022: Continues to have ID issues now has diarrhea following two rounds of antibiotic for sinus infections and also additional for MRSA of his left face. M-spike stable. IgG is > 700. Blood sugars are > 500 with adjustments in insulin. Updated Visit, May 12, 2022: Jon Bauer returns for scheduled follow-up. He remains on Revlimid 5 mg daily which he is tolerating well. He denies any significant side effects from the Revlimid. He states that he did not take the Revlimid for 3 to 4 days this month after starting the antibiotic because the combination was rough on his stomach. He recently developed a head cold and chest congestion. He was diagnosed with anear infection by his PCP. He states that he has been feeling under the weather! . He was given a course of amoxicillin and then developed diarrhea. His symptoms did not improve and was recently started on another course of antibiotics and prednisone. He denies fevers and chills. He denies bleedingand abnormal bruising. No new unusual pain. Updated Visit, April 14, 2022: Labs stable. 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 No other major issues. Chronic limitations to duration of exercise. 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 Counts are stable. Updated Visit, February 17, 2022: Jon Bauer returns for follow-up and labs. He is still being treated for MRSA with Bactrim and aface wash. He has had oral thrush on and off for a couple of months. He remains on Revlimid 5 mg daily and is tolerating it well. He denies any significant side effects from the Revlimid. He denies fevers, chills, night sweats and signs/symptoms of infection. No bleeding or abnormal bruising. Overal l he is doing well with no new complaints today. No new issues, problems or concerns. Updated Visit, January 18, 2022: Infection in cheek - (MRSA) is resolving currently on Bactrim DS for a 30 day course. Will resume Revlimid 5 mg and if platelets drop below 35k will decrease to 2.5 mg daily. Currently platelets have recovered to 78k nd will resume treatment. Now has a scab on his right forearm and is seeing dermatology. Looks like a superficial burn with skin sloughing 2 friends have recently - just sad about that. Updated Visit, January 01, 2022: Jon returns and is quite uncomfortable. His platelets still low and abscesses have recurred. Blood sugar is high - can't get in to see Dr. Michael - going to the ER Leisa won several prizes rom baking at the fair and granddaughter won showing her pig. Updated Visit, December 18, 2021: Jon returns and his facial infection finally cleared up but required debridement and drainage. HadDalvance IV Thrush resolved Platelets still low Will hold Revlimid for 2 more weeks - still thromboctopenic - will see if clearance from Dalvance will allow him to resolve. Updated Visit, November 20, 2021: Returns today and retells his saga with sinus infection from last visit: Augmentin didn't help - required tessalon, prednisone and levaquin to get things improved. Then got thrush - now has communityacquired MRSA abscess on his face on Bactrim now. Otherwise doing well from myeloma standpoint. Updated Visit, October 23, 2021: Jon returns alone today and remains on Rev maintenance. Sinus fullness and productive cough will treat empirically. Otherwise continues to do well. Updated Visit, September 25, 2021: Jon Bauer returns for follow-up. He remains on Revlimid 5 mg daily and is tolerating it well. He denies any side effects from the Revlimid. He started his current cycle on September 08. He denies any unusual pain. He denies fevers, chills, night sweats and signs/symptoms of infection. He denies any abnormal bleeding or abnormal bruising. His skin is thin as he ages and tends to bleed easier due to that. His diarrhea is much improved. He remains on Metamucil. He offers no new complaints today. No new issues, problems or concerns. Updated Visit, August 28, 2021: Diarrhea associated with Metformin now improved significantly. His counts are fairly stable but platelets are a little low. Will continue treatment as is for now and consider holding the dose if he gets lower. Back on insulin for managing blood sugars. Updated Visit, July 30, 2021: Still has diarrhea biopsy results pending. Leisa is with him today. He is doing well overall. Will resume Revlimid at 5 mg daily. Platelets are at 100k. Updated Visit, July 16, 2021: Telephone only for 12 minutes Called Jon as requested and his counts were reviewed. His platelets are improving but still less than 100k. Unfortunately he still has daily diarrhea but is seeing Dr. Garay next week. We will plan to hold his Revilimid for a few weeks longer. Updated Visit, July 02, 2021: Platelets suppressed after having restarted revlimid 1 week ago - will ask him to stop. Still having diarrhea and is going to GI tomorrow M-spike continues to drop slowly. If unable to continue Rev, will change maintenance. Updated Visit, May 07, 2021: Will resume lexapro for depression. May be confusing ativan with lexapro No additional rash - Leisa is with him today. If it recurs, we can switch maintenance to Ixazomib or pomalidomide - defer to transplant team. Updated Visit, April 17, 2021: Walking better, neuropathy improving, fatigue resolving, appetite is improved. Only thing worse is restless legs in the evening. Getting his vaccination series. Labs stable. Rash is resolved. Updated Visit, January 28, 2021: Intermittent bowel issues but no significant problems. Both COVID-19 Vax Pfizer as of tomorrow Balance and activity levels are better - dizziness has resolved. recovereing from mild Upper respiratory viral infection M-Protein Concentration (gm/dL) Date Value 07/02/2021 0.36 Updated Visit, December 26, 2020: Jon returns today reporting a hospitalization for SBO with intractable nausea 12/16/2020. Managed conservatively and resolved. Proceed with vaccination schedule Start with COVID-19 vax. Occult Blood in stools - consider CT at next visit. Updated Visit, December 05, 2020: Occasional swelling in knees and ankles but is walking and getting more active. Still gets cold easily and has intermittent diarrhea but less than previous. Anemia is improved. Still has fatigue but is improving with continued activity. D100 s approximately 12/27/2020 and will need to start maintenance Revlimid beyond that time. He will need COVID Vax and others on schedule that he has. Updated Visit, November 13, 2020: Jon is 70 yo and underwent Autologous transplantMay 2020 was day of Autologous transplant and is doing well. We will continue monitoring his response and will anticipate starting maintenance therapy at the appropriate time. He had recent resolution of GI symptoms due to a prolonged course of Cipro- which once identified was stopped and symptoms resolved. 08/24/2020 his pretransplant testing revealed a 24-hour urine with 0.02 gm M spike. His serum M protein was 0.61, serum kappa light chains 15.3, serum lambda light chain 17.0, serum kappa/lambda ratio0.90 (normal 0.26-1.65), and his bone marrow examination from 08/19/2020 was 40% cellular with less than 5% plasma cells and normal cytogenetics. His pretransplant disease response was a OK. Transplant overview: Protocol(s): 3422 1C Preparative regimen: Melphalan Mobilization regimen: plerixafor & neupogen Stem cell source: apheresis CD34 cell dose (x10e6/kg): 4.05 Date of transplant: 09/19/20 Updated Visit, August 11, 2020: Jon is 69 years old and returns to resume treatment with Velcade plus Revlimid just prior to getting autologous transplant. He has recovered from Covid and is much more active and feels quite a bit better. Fatigue is resolved and he had a great week last week. His counts have recovered and he is safe to proceed. Updated Visit, July 11, 2020: Jon is 69 yo and ended up getting COVID-19 and we held treatment. He has now recovered from the acute effects and has also normalized his kidney function. We will resume treatment next week. Still fatigued, didn't end up in the hospital at least. Updated Visit, June 04, 2020: Jon is 69 yo and returns for ongoing treatment of MM with RVD. He is having difficulty with tolerance and complains of persisting diarrhea - will stop revlimid (he's still taking 25mg). He saw Dr. Campbell for transplant and we will get a 24 hour urine IEP with the next assessment. We will have a break in treatment and then start Rev at a lower dose as previously discussed with him. Updated Visit, May 19, 2020: Feel better but has burning in his stomach which we will try mylanta rather than Pepto-bismol. He is due to see BMT tomorrow virtually and otherwise, with the resolution of his symptoms from last week, he will resume treamtent as scheduled. He has responsive disease on RVD. Updated Visit, May 12, 2020: Jon is 69 yo and is being treated from IgG Lambda multiple myeloma with initial M-spike of 3.3 gm and small lytic lesions in both humeral heads and distal right femur. PET CT noted a lesion on the sternum. He is due for cycle 4 but feels lousy with respect to energy and persisting nausea. He has mild sensory neuropathy as well and is struggling with the decadron to manage his sugars. Updated Visit, April 14, 2020: Jon is 69 years old and returns for treatment for his newly diagnosed multiple myeloma currently on RVD. 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 Bone marrow biopsy in December 2019 revealed findings consistent with smoldering myeloma but with small lytic lesions in both humeral heads as well as right distal femur and an additional lesion noted on the sternumby PET/CT, we elected to treat him with 8-10 cycles of RVD. I discussed consideration of pulmonary transplant with him at his last visit and I will plan on referring him following his third cycle of treatment. He reports that he had issues with nausea and diarrhea, as well gas. Everything is settled down, but he is anxious about symptoms going forward. Updated visit, March 17, 2020: Jon is 69 years old and returns with his Leisa for treatment of newly diagnosed multiple myeloma for which he has been started on RVD. He was followed for a monoclonal gammopathy IgG lambda of3.3 g since November 2018. Biopsy in December 2019 demonstrated what appeared to be smoldering myeloma but he had small lytic lesions in both humeral heads as well as distal right femur. PET/CT showed an additional lesion in the sternum but did not find the femoral or humeral head lesions based on these findings we electively started him on initial treatment. I anticipate 8-10 cycles of RVD and he returns today for his second cycle. He tolerated his first cycle well however he has some unpredictable bouts of diarrhea small rash on his neck that is resolving as well as candidal mucositis that resolved with Diflucan. Overall he is tolerating treatment very well, has no neuropathy and is willing to proceed with additional treatment as planned. Updated Visit, February 08, 2020: Jon Bauer is a 69 year old male seen for a monoclonal gammopathy found on routine labs. The patient was found to have a monoclonal gammopathy of (IgG) 3.3 gm with lambda specificity noted in Dr. BALDWIN's notes from 11/29/2018. He had not yet had a bone marrow biopsy so performed 1 on December 17, 2019 and it appeared that he had at least a smoldering myeloma with small lytic lesions in both Humeral heads as well as the distal right femur. A PET/CT wich showed only a sternal lesion with uptake FDG with SUV 2.7 and no uptakein either femur or humeral heads. Findings are consistent with multiple myeloma and we will proceed with induction therapy. I sat with him and his Leisa and extensively reviewed the treatmtent plan as well as the risks and benefits. I anticipate 8-10 cycles of induction. I will discuss HCT with them at their next visit so as to not overwhelm them. He has mild neuropathy from poorly controlled diabetes and coronary artery calcification but otherwise has a well preserved performance status and could be appropriate despite being older than 65. RADIOGRAPHIC DATA: Reviewed on February 08, 2020 2. 02/01/2020 PET/CT: 1. NECK: No FDG avid neoplastic process. 2. CHEST: No FDG avid neoplastic process. 3. ABDOMEN/PELVIS: No FDG avid neoplastic process. 4. EXTREMITIES/SKELETON: * 1.2 cm mildly FDG-avid lytic lesion in the sternum with SUV max of 2.7, may represent a site of active myeloma. * No FDG avid destructive osseous lesions elsewhere. Specifically, no hypermetabolic lesions in humeral heads or femurs. 1. 06/08/2019 Bone Survey: Lytic lesions involving bilateral humeral heads and distal right femur PATHOLOGIC PROFILE/MOLECULAR DATA: Reviewed on 02/08/2020 1. 12/17/2019 bone marrow biopsy and aspirate: Bone marrow, aspirate smear and core biopsy, with clot section and peripheral blood: -Involved by plasma cell neoplasm with 5 to 10% plasma cells. -Normocellular bone marrow 20% with trilineage hematopoiesis. -Stainable iron present. -Comment-the patient has a history of IgG lambda monoclonal protein. The bone marrow shows involvement by a plasma cell neoplasm with 3% plasma cells in the aspirate smear and 5 to 10% plasma cells by immunohistochemistry. Final classification of plasma cell neoplasms require correlation with additional clinical laboratory and/or radiologic findings. FISH for plasma cell neoplasm: Findings demonstrated plasma cell population with trisomy 9, [id number] and gain of genetic material at the CCN D1 locus or trisomy 11. These findings are consistent with the presence of a plasma cell neoplasm and represent standard risk disease. Cytogenetics: Normal male karyotype 46, XY 20 REVIEW OF SYSTEMS Per HPI and otherwise negative by full review of organ systems. ECOG PERFORMANCE STATUS: 0 PHYSICAL EXAMINATION: Vitals: BP 156/80 Pulse 71 Temp (Src) 97.5 (Temporal) Resp 16 Ht 5' 11.496 (1.82m) Wt 245 lb 12.8 oz (111.5kg) SpO2 97% BMI 33.81 kg/(m^2). Body surface area is 2.37 meters squared. ECOG 0 Exam limited to gross visualization where appropriate. Gen.: This is an age-appropriate patient in no acute distress. Head: Appears atraumatic with no visible lesions. Eyes: Pupils equally round and reactive to light, extraocular muscles are intact. Neck: Supple. Mouth: Mucous membranes appeared to be moist. Respiratory: Appears to be respiring comfortably. Neurologic: Nonfocal to gross visualization. Alert and oriented 3. Psychiatric: No evidence of inappropriate anxiety or depression. Skin: Visible areas of skin without rash, lesions, wounds or petechiae. ALLERGIES: ALLERGIES Allergen Reactions Oseltamivir Other: See Comments MEDICATIONS: ibuprofen/pseudoephedrine HCl (ADVIL COLD AND SINUS ORAL) Take by mouth as needed. dicyclomine (BENTYL) 20 mg tablet doxycycline (VIBRA-TABS) 100 mg tablet Take 100 mg by mouth twice daily. mupirocin (BACTROBAN) 2 % ointment BASAGLAR KWIKPEN U-100 INSULIN 100 unit/mL (3 mL) INJECT TEN UNITS SUBCUTANEOUSLY ONCE DAILY nystatin (MYCOSTATIN) 100,000 unit/mL suspension TAKE 4 ML BY MOUTH swish in mouth for as long as possible BEFORE swallowing FOUR TIMES DAILY FOR 10 DAYS VICTOZA 2-REGULO 0.6 mg/0.1 mL (18 mg/3 mL) Inject 1.8 mg subcutaneously. triamcinolone acetonide (KENALOG) 0.1 % ointment gabapentin (NEURONTIN) 100 mg capsule Take 1 capsule by mouth daily at bedtime for 30 days. rOPINIRole (REQUIP) 2 mg tablet Take 1 tablet by mouth daily at bedtime. escitalopram oxalate (LEXAPRO) 10 mg tablet Take 1 tablet by mouth once daily. Cholecalciferol, Vitamin D3, (VITAMIN D) 25 mcg (1,000 unit) cap Take 2 capsules by mouth once daily. atorvastatin (LIPITOR) 10 mg tablet Take 10 mg by mouth once daily. cetirizine (ZYRTEC) 10 mg tablet Take 10 mg by mouth once daily. dapagliflozin (FARXIGA) 10 mg tablet Take 10 mg by mouth daily with breakfast. glipiZIDE 10 mg tablet Take 10 mg by mouth once daily. REVLIMID 5 mg capsule TAKE 1 CAPSULE BY MOUTH 1 TIME DAILY. (Patient not taking: Reported on 09/01/2022) LABORATORY VALUES: WBC (k/uL) Date Value 09/01/2022 6.08 RBC (m/uL) Date Value 09/01/2022 4.53 Hemoglobin (g/dL) Date Value 09/01/2022 14.5 Hematocrit (%) Date Value 09/01/2022 42.5 MCV (fL) Date Value 09/01/2022 93.8 MCH (pg) Date Value 09/01/2022 32.0 MCHC (g/dL) Date Value 09/01/2022 34.1 RDW-CV (%) Date Value 09/01/2022 14.3 Platelet Count (k/uL) Date Value 09/01/2022 96 (L) MPV (fL) Date Value 09/01/2022 8.8 (L) Glucose (mg/dL) Date Value 09/01/2022 425 (H) BUN (mg/dL) Date Value 09/01/2022 22 Creatinine (mg/dL) Date Value 09/01/2022 1.15 Sodium (mmol/L) Date Value 09/01/2022 137 Potassium (mmol/L) Date Value 09/01/2022 4.2 Chloride (mmol/L) Date Value 09/01/2022 101 CO2 (mmol/L) Date Value 09/01/2022 25 Protein, Total (g/dL) Date Value 09/01/2022 7.2 09/01/2022 6.6 Albumin (g/dL) Date Value 09/01/2022 4.4 Calcium, Total (mg/dL) Date Value 09/01/2022 10.0 Alkaline Phosphatase (U/L) Date Value 09/01/2022 133 (H) Bilirubin, Total (mg/dL) Date Value 09/01/2022 0.3 AST (U/L) Date Value 09/01/2022 39 ALT (U/L) Date Value 09/01/2022 55 (H) Total Cholesterol, Nonfasting (mg/dL) Date Value 11/20/2021 142 Triglycerides, Nonfasting (mg/dL) Date Value 11/20/2021 456 (H) M-Protein Concentration Date Value 09/01/2022 0.39 g/dL 08/04/2022 0.41 g/dL 07/07/2022 0.35 g/dL 06/09/2022 0.34 g/dL 05/12/2022 0.34 g/dL 07/02/2021 0.36 gm/dL 06/04/2021 0.31 gm/dL 04/17/2021 0.35 gm/dL 02/26/2021 0.37 gm/dL 12/26/2020 0.62 gm/dL DIAGNOSIS: (C22.0) Hepatocellular carcinoma (HCC) (primary encounter diagnosis) Plan: B2 MICROGLOBULIN B, CBC + DIFF, COMP METABOLIC PANEL, LD LACTATE DEHYDRO, PHOSPHORUS INORGANIC, PROTEIN ELECTROPHORESIS SERUM W/INTERP, MONOCLONAL PROTEIN, SERUM (BLOOD), URIC ACID BLOOD, CALCIUM IONIZED BLOOD, KAPPA/ORTIZ,FREE,SER, ALPHA FETOPROTEIN BL (C90.00) Multiple myeloma not having achieved remission ([facility]) Plan: B2 MICROGLOBULIN B, CBC + DIFF, COMP METABOLIC PANEL, LD LACTATE DEHYDRO, PHOSPHORUS INORGANIC, PROTEIN ELECTROPHORESIS SERUM W/INTERP, MONOCLONAL PROTEIN, SERUM (BLOOD), URIC ACID BLOOD, CALCIUM IONIZED BLOOD, KAPPA/ORTIZ,FREE,SER (E11.9) Type 2 diabetes (HCC) PAST MEDICAL HISTORY Diagnosis Date Abdominal aortic aneurysm (HCC) Allergic rhinitis Biceps rupture, proximal 04/09/2014 Bicipital tenosynovitis 11/01/2013 Chronic pain COVID-19 06/11/2020 positive test 06/13/20 Depression 09/18/2020 Continue home dose of lexapro Elevated blood protein elevated MGUS Generalized anxiety disorder Glaucoma Hypercholesteremia 09/17/2020 Hold Lipitor inpatient Hyperlipemia Hypertension Leukocytosis MRSA infection Multiple myeloma (HCC) 09/17/2020 6 Cycles RVD (February 2020 through August 2020) in a [place] Multiple myeloma not having achieved remission ([facility]) 02/04/2020 Neuropathy 08/20/2020 Continue home Gabapentin Obesity Restless leg syndrome 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 Protocol(s): 3422 1C Preparative regimen: Melphalan Mobilization regimen: plerixafor & neupogenStem cell source: apheresis CD34 cell dose (x10e6/kg): 4.05 Date of transplant: 09/19/20 Type 2 diabetes (HCC) 08/20/2020 Takes metformin, Lantus, victoza & Farxiga Sliding Scale inpatient & Lantus Plan: -Endo following, recs in dc instructions for home Type II or unspecified type diabetes mellitus without mention of complication, uncontrolled PAST SURGICAL HISTORY Procedure Laterality Date EXTENSIVE FINGER SURGERY Right FOOT/TOES SURGERY PROC UNLISTED Left hammer toes and bunions LIVER BIOPSY PALATOP CL PALATE ATTACHMENT PHARYNGEAL FLAP age 5 PAST SURGICAL HISTORY OF MRSA cyst removed from face SHOULDER SURGERY HX Left tendon repair Social History Tobacco Use Smoking status: Former Packs/day: 1.00 Years: 40.00 Pack years: 40.00 Types: Cigarettes Passive exposure: Past Smokeless tobacco: Never Tobacco comments: 03/30/2018 Vaping Use Vaping Use: Never used Substance Use Topics Alcohol use: Yes Comment: occassional Drug use: Yes Types: Marijuana Comment: THC edibles, 3x a week FAMILY HISTORY Problem Relation Age of Onset Cancer Mother brain 76 y/o Heart disease Mother Hypertension Mother Diabetes Father Heart disease Father Hypertension Father Heart Attack Father Diabetes Sister other (atrial fib) Sister COPD Sister No Known Problems Sister other (polio) Maternal Grandfather Diabetes Paternal Grandmother No Known Problems Daughter I spent a total of 40 minutes on the date of the service which included preparing to see the patient, [id number] patient care, completing clinical documentation, performing a medically appropriate examination, counseling and educating the patient/family/caregiver, ordering medications, tests, or p rocedures, and independently interpreting results (not separately reported). Vimal Crandall MD, CPE Hematology and Oncology Services Provided at: [place], [place] CC: Dr. Frankie Michael Dr. [facility] Denis Almanza documented in this encounterC[facility]04-[facility] Nurse Note* Mariaelena Wiggins MA - 09/01/2022 3:13 PM EDT Patient would like to know results of Liver Biopsy and also do you have a recommendation for a Stamp Clerk within the [facility]? Mariaelena Staley MA documented in this encounterC[facility]04-07-2023 Miscellaneous Notes* Telephone Encounter - Gela Marion RN - 08/13/2022 11:03 AM EDT You are scheduled for a Liver Biopsy, On Saturday, August 20, 2022. You are to arrive at 12 pm and Report to [facility] First Floor Radiology Registration Desk. You can expect to be here for 4-8 hours. Diet: Do not eat any solid food after midnight the day of/night before your procedure. You may drink clear liquids until 11:00 am, which means black coffee, apple juice, black tea, or water only. Medications: Ok to take your cardiac, blood pressure, anti-seizure, and chronic pain medications with a sip of water, please take prior to arrival. Bring your current medication list. RADIOLOGY RECOMMENDS THESE MEDICATION RESTRICTIONS: Stop dapagliflozin, glipizide oral hypoglycemic the day of this procedure Hold short acting Basaglar insulin the day of procedure. Labs: Lab-work needs to be drawn? Yes, an INR needs to be drawn at least one day prior to procedure. Please bring a copy of the results if they are not done at a [facility] facility. . Inclusion Intern/Transportation: How will you be arriving for your procedure? Private car. You will need a responsible adult to accompany you to and from the procedure. Your pile driver operator barge mounted is required to stay with you until you are taken into the procedure room. If you have any questions, please call [phone], Option 3. documented in this encounterC[facility]04-04-2023 Miscellaneous Notes* Telephone Encounter - Elodia Berg Sec - 08/10/2022 7:13 AM EDT Patient is scheduled for 08/20 Electronically signed by Elodia Berg [facility] at 08/10/2022 7:13 AM EDT * Telephone Encounter - Letha L Braeden [facility] - 08/06/2022 1:06 PM EDT Images are uploaded. * Telephone Encounter - Letha Deras [facility] - 08/06/2022 12:32 PM EDT Images requested. * Telephone Encounter - Arcelia Thomas RN - 08/06/2022 11:22 AM EDT Order placed. Arcelia Thomas RN * Telephone Encounter - Elodia Berg [facility] - 08/06/2022 11:[address] orders thanks Electronically signed by Elodia Berg [facility] at 08/06/2022 11:10 AM EDT * Telephone Encounter - Soha Nunn APRN.CNP - 08/06/2022 10:56 AM EDT Patient had an abnormal CT of the abdomen and pelvis. Dr. Crandall would like the images uploaded.Dr. Crandall would also like a liver biopsy. Soha Nunn APRN.LONA documented in this encounterAndrea Ville [id number] Miscellaneous Notes* Telephone Encounter - Audelia Thomas - 08/09/2022 8:12 AM EDTSummary: Liver BX Ct images are in. Sending for review. documented in this encounterCleveland Clinic [facility]03-29-2023 History of Present illness Narrative* Soha TUTU Nunn.HIM MANAGER - 08/04/2022 1:43 PM EDT Images from the original note were not included. NAME: Jon Bauer [facility] NO.: [id number] DATE OF SERVICE: August 04, 2022 ([place]) Some elements in this clinic note that are critical to medical decision making have been carefully reviewed and included from a prior clinic note dated: July 07, 2022 (Dr. Crandall) Additional Clinicians involved in Jon Bauer's care: Dr. Lomeli, Dr. Frankie Campbell CC: Multiple myeloma followup ASSESSMENT: This is a 71 yo man diagnosed with an IgG lambda monoclonal gammopathy in 2019 and was then noted to have rising M-spike and PET scan documented a sternal lesion. 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 ISS and R-ISS stage II disease. He had a partial response to induction therapy and has recovered following Autologous stem cell infusion. He is on schedule with his post transplant vaccinations. Mild thrombocytopenia - Stable for now. Additional medical issues include: - Immunodeficiency following HDSCT and patient will continue Acyclovir and post- transplant immunizations per Infectious Disease protocol - Renal failure is improving and we will continue monitoring - Neuropathy is stable - Diabetes mellitus managed by PCP is elevated from steroids. Initial M-Protein is 3.31 prior to Induction Current M-spike is 0.34 as of 06/09/22 PLAN: Continue to hold Revlimid 5 mg daily for 4 weeks due ongoing infection with MRSA. Follow up in 4 weeks - CBC, CMP and myeloma profile labs. Continue Follow up with Dr. Michael and Dr. Negrete. He will see his PCP, Dr. Key as scheduled who patient states will address the abnormal finding onthe CT of the abdomen. (A developing 4.1 cm rim-enhancing mass with targetoid appearance at the right inferior hepatic lobe.) MRI abdomen with IV contrast to further evaluate was recommended. TREATMENT TO DATE: 4. 07/30/2021: Resumed Rev at 5mg daily due to thrombocytopenia. 3. 12/26/2020: Rx for Maintenance Rev 10mg daily 2. 09/19/2020: HDCT Auto transplant (D0). 1. 02/18/2020 - 08/25/2020: RVD HPI: Updated Visit, August 04, 2022: Jon Bauer returns for follow-up. He remains off of Revlimid and due to ongoing infection with MRSA to his face. Since his last visit he was at the [facility] emergency room with left-sidedupper abdominal pain with several episodes of diarrhea and a cough with productive green phlegm andchest pain. He had a CT of the chest, abdomen and pelvis. He was treated with IV fluids, morphine and Zofran. He was discharged home on dicyclomine 20 mg every 8 hours. He is feeling better today. He denies fevers and chills. No bleeding or abnormal bruising. He remains off of the Revlimid. He has completed a course of antibiotics for MRSA. He is scheduled to see his PCP tomorrow, Dr. Kye. He is scheduled for surgery with Dr. Sir Cazares on August 24, 2022. Updated Visit, July 07, 2022: Saw Dr. Michael 1 week ago and will be seeing plastic surgery - Dr. Moore - currently on Doxycycline. Diarrhea improved. Blood sugars still very high - reviewed and educated regarding Sister 2 weeks ago in [facility]. Saw [facility] and had wound cleaned out. Updated Visit, June 09, 2022: Continues to have ID issues now has diarrhea following two rounds of antibiotic for sinus infections and also additional for MRSA of his left face. M-spike stable. IgG is > 700. Blood sugars are > 500 with adjustments in insulin. Updated Visit, May 12, 2022: Jon Bauer returns for scheduled follow-up. He remains on Revlimid 5 mg daily which he is tolerating well. He denies any significant side effects from the Revlimid. He states that he did not take the Revlimid for 3 to 4 days this month after starting the antibiotic because the combination was rough on his stomach. He recently developed a head cold and chest congestion. He was diagnosed with anear infection by his PCP. He states that he has been feeling under the weather! . He was given a course of amoxicillin and then developed diarrhea. His symptoms did not improve and was recently started on another course of antibiotics and prednisone. He denies fevers and chills. He denies bleedingand abnormal bruising. No new unusual pain. Updated Visit, April 14, 2022: Labs stable. 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 No other major issues. Chronic limitations to duration of exercise. 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 Counts are stable. Updated Visit, February 17, 2022: Jon Bauer returns for follow-up and labs. He is still being treated for MRSA with Bactrim and aface wash. He has had oral thrush on and off for a couple of months. He remains on Revlimid 5 mg daily and is tolerating it well. He denies any significant side effects from the Revlimid. He denies fevers, chills, night sweats and signs/symptoms of infection. No bleeding or abnormal bruising. Overal l he is doing well with no new complaints today. No new issues, problems or concerns. Updated Visit, January 18, 2022: Infection in cheek - (MRSA) is resolving currently on Bactrim DS for a 30 day course. Will resume Revlimid 5 mg and if platelets drop below 35k will decrease to 2.5 mg daily. Currently platelets have recovered to 78k nd will resume treatment. Now has a scab on his right forearm and is seeing dermatology. Looks like a superficial burn with skin sloughing 2 friends have recently - just sad about that. Updated Visit, January 01, 2022: Jon returns and is quite uncomfortable. His platelets still low and abscesses have recurred. Blood sugar is high - can't get in to see Dr. Michael - going to the ER Leisa won several prizes rom baking at the fair and granddaughter won showing her pig. Updated Visit, December 18, 2021: Jon returns and his facial infection finally cleared up but required debridement and drainage. HadDalvance IV Thrush resolved Platelets still low Will hold Revlimid for 2 more weeks - still thromboctopenic - [facility] Updated Visit, November 20, 2021: Returns today and retells his saga with sinus infection from last visit: Augmentin didn't help - required tessalon, prednisone and levaquin to get things improved. Then got thrush - now has communityacquired MRSA abscess on his face on Bactrim now. Otherwise doing well from myeloma standpoint. Updated Visit, October 23, 2021: Jon returns alone today and remains on Rev maintenance. Sinus fullness and productive cough will treat empirically. Otherwise continues to do well. Updated Visit, September 25, 2021: Jon Bauer returns for follow-up. He remains on Revlimid 5 mg daily and is tolerating it well. He denies any side effects from the Revlimid. He started his current cycle on September 08. He denies any unusual pain. He denies fevers, chills, night sweats and signs/symptoms of infection. He denies any abnormal bleeding or abnormal bruising. His skin is thin as he ages and tends to bleed easier due to that. His diarrhea is much improved. He remains on Metamucil. He offers no new complaints today. No new issues, problems or concerns. Updated Visit, August 28, 2021: Diarrhea associated with Metformin now improved significantly. His counts are fairly stable but platelets are a little low. Will continue treatment as is for now and consider holding the dose if he gets lower. Back on insulin for managing blood sugars. Updated Visit, July 30, 2021: Still has diarrhea biopsy results pending. Leisa is with him today. He is doing well overall. Will resume Revlimid at 5 mg daily. Platelets are at 100k. Updated Visit, July 16, 2021: Telephone only for 12 minutes Called Jon as requested and his counts were reviewed. His platelets are improving but still less than 100k. Unfortunately he still has daily diarrhea but is seeing Dr. Garay next week. We will plan to hold his Revilimid for a few weeks longer. Updated Visit, July 02, 2021: Platelets suppressed after having restarted revlimid 1 week ago - will ask him to stop. Still having diarrhea and is going to GI tomorrow M-spike continues to drop slowly. If unable to continue Rev, will change maintenance. Updated Visit, May 07, 2021: Will resume lexapro for depression. May be confusing ativan with lexapro No additional rash - Leisa is with him today. If it recurs, we can switch maintenance to Ixazomib or pomalidomide - defer to transplant team. Updated Visit, April 17, 2021: Walking better, neuropathy improving, fatigue resolving, appetite is improved. Only thing worse is restless legs in the evening. Getting his vaccination series. Labs stable. Rash is resolved. Updated Visit, January 28, 2021: Intermittent bowel issues but no significant problems. Both COVID-19 Vax Pfizer as of tomorrow Balance and activity levels are better - dizziness has resolved. recovereing from mild Upper respiratory viral infection M-Protein Concentration (gm/dL) Date Value 07/02/2021 0.36 Updated Visit, December 26, 2020: Jon returns today reporting a hospitalization for SBO with intractable nausea 12/16/2020. Managed conservatively and resolved. Proceed with vaccination schedule Start with COVID-19 vax. Occult Blood in stools - consider CT at next visit. Updated Visit, December 05, 2020: Occasional swelling in knees and ankles but is walking and getting more active. Still gets cold easily and has intermittent diarrhea but less than previous. Anemia is improved. Still has fatigue but is improving with continued activity. D100 s approximately 12/27/2020 and will need to start maintenance Revlimid beyond that time. He will need COVID Vax and others on schedule that he has. Updated Visit, November 13, 2020: Jon is 70 yo and underwent Autologous transplantMay 2020 was day of Autologous transplant and is doing well. We will continue monitoring his response and will anticipate starting maintenance therapy at the appropriate time. He had recent resolution of GI symptoms due to a prolonged course of Cipro- which once identified was stopped and symptoms resolved. 08/24/2020 his pretransplant testing revealed a 24-hour urine with 0.02 gm M spike. His serum M protein was 0.61, serum kappa light chains 15.3, serum lambda light chain 17.0, serum kappa/lambda ratio0.90 (normal 0.26-1.65), and his bone marrow examination from 08/19/2020 was 40% cellular with less than 5% plasma cells and normal cytogenetics. His pretransplant disease response was a OK. Transplant overview: Protocol(s): 3422 1C Preparative regimen: Melphalan Mobilization regimen: plerixafor & neupogen Stem cell source: apheresis CD34 cell dose (x10e6/kg): 4.05 Date of transplant: 09/19/20 Updated Visit, August 11, 2020: Jon is 69 years old and returns to resume treatment with Velcade plus Revlimid just prior to getting autologous transplant. He has recovered from Covid and is much more active and feels quite a bit better. Fatigue is resolved and he had a great week last week. His counts have recovered and he is safe to proceed. Updated Visit, July 11, 2020: Jon is 69 yo and ended up getting COVID-19 and we held treatment. He has now recovered from the acute effects and has also normalized his kidney function. We will resume treatment next week. Still fatigued, didn't end up in the hospital at least. Updated Visit, June 04, 2020: Jon is 69 yo and returns for ongoing treatment of MM with RVD. He is having difficulty with tolerance and complains of persisting diarrhea - will stop revlimid (he's still taking 25mg). He saw Dr. Campbell for transplant and we will get a 24 hour urine IEP with the next assessment. We will have a break in treatment and then start Rev at a lower dose as previously discussed with him. Updated Visit, May 19, 2020: Feel better but has burning in his stomach which we will try mylanta rather than Pepto-bismol. He is due to see BMT tomorrow virtually and otherwise, with the resolution of his symptoms from last week, he will resume treamtent as scheduled. He has responsive disease on RVD. Updated Visit, May 12, 2020: Jon is 69 yo and is being treated from IgG Lambda multiple myeloma with initial M-spike of 3.3 gm and small lytic lesions in both humeral heads and distal right femur. PET CT noted a lesion on the sternum. He is due for cycle 4 but feels lousy with respect to energy and persisting nausea. He has mild sensory neuropathy as well and is struggling with the decadron to manage his sugars. Updated Visit, April 14, 2020: Jon is 69 years old and returns for treatment for his newly diagnosed multiple myeloma currently on RVD. 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 Bone marrow biopsy in December 2019 revealed findings consistent with smoldering myeloma but with small lytic lesions in both humeral heads as well as right distal femur and an additional lesion noted on the sternumby PET/CT, we elected to treat him with 8-10 cycles of RVD. I discussed consideration of pulmonary transplant with him at his last visit and I will plan on referring him following his third cycle of treatment. He reports that he had issues with nausea and diarrhea, as well gas. Everything is settled down, but he is anxious about symptoms going forward. Updated visit, March 17, 2020: Jon is 69 years old and returns with his Leisa for treatment of newly diagnosed multiple myeloma for which he has been started on RVD. He was followed for a monoclonal gammopathy IgG lambda of3.3 g since November 2018. Biopsy in December 2019 demonstrated what appeared to be smoldering myeloma but he had small lytic lesions in both humeral heads as well as distal right femur. PET/CT showed an additional lesion in the sternum but did not find the femoral or humeral head lesions based on these findings we electively started him on initial treatment. I anticipate 8-10 cycles of RVD and he returns today for his second cycle. He tolerated his first cycle well however he has some unpredictable bouts of diarrhea small rash on his neck that is resolving as well as candidal mucositis that resolved with Diflucan. Overall he is tolerating treatment very well, has no neuropathy and is willing to proceed with additional treatment as planned. Updated Visit, February 08, 2020: Jon Bauer is a 69 year old male seen for a monoclonal gammopathy found on routine labs. The patient was found to have a monoclonal gammopathy of (IgG) 3.3 gm with lambda specificity noted in Dr. BALDWIN's notes from 11/29/2018. He had not yet had a bone marrow biopsy so performed 1 on December 17, 2019 and it appeared that he had at least a smoldering myeloma with small lytic lesions in both Humeral heads as well as the distal right femur. A PET/CT wich showed only a sternal lesion with uptake FDG with SUV 2.7 and no uptakein either femur or humeral heads. Findings are consistent with multiple myeloma and we will proceed with induction therapy. I sat with him and his Leisa and extensively reviewed the treatmtent plan as well as the risks and benefits. I anticipate 8-10 cycles of induction. I will discuss HCT with them at their next visit so as to not overwhelm them. He has mild neuropathy from poorly controlled diabetes and coronary artery calcification but otherwise has a well preserved performance status and could be appropriate despite being older than 65. RADIOGRAPHIC DATA: Reviewed on February 08, 2020 2. 02/01/2020 PET/CT: 1. NECK: No FDG avid neoplastic process. 2. CHEST: No FDG avid neoplastic process. 3. ABDOMEN/PELVIS: No FDG avid neoplastic process. 4. EXTREMITIES/SKELETON: * 1.2 cm mildly FDG-avid lytic lesion in the sternum with SUV max of 2.7, may represent a site of active myeloma. * No FDG avid destructive osseous lesions elsewhere. Specifically, no hypermetabolic lesions in humeral heads or femurs. 1. 06/08/2019 Bone Survey: Lytic lesions involving bilateral humeral heads and distal right femur PATHOLOGIC PROFILE/MOLECULAR DATA: Reviewed on 02/08/2020 1. 12/17/2019 bone marrow biopsy and aspirate: Bone marrow, aspirate smear and core biopsy, with clot section and peripheral blood: -Involved by plasma cell neoplasm with 5 to 10% plasma cells. -Normocellular bone marrow 20% with trilineage hematopoiesis. -Stainable iron present. -Comment-the patient has a history of IgG lambda monoclonal protein. The bone marrow shows involvement by a plasma cell neoplasm with 3% plasma cells in the aspirate smear and 5 to 10% plasma cells by immunohistochemistry. Final classification of plasma cell neoplasms require correlation with additional clinical laboratory and/or radiologic findings. FISH for plasma cell neoplasm: Findings demonstrated plasma cell population with trisomy 9, [id number] and gain of genetic material at the CCN D1 locus or trisomy 11. These findings are consistent with the presence of a plasma cell neoplasm and represent standard risk disease. Cytogenetics: Normal male karyotype 46, XY 20 REVIEW OF SYSTEMS Per HPI and otherwise negative by full review of organ systems. ECOG PERFORMANCE STATUS: 0 PHYSICAL EXAMINATION: Vitals: BP 129/63 Pulse 66 Temp (Src) 98 (Temporal) Resp 18 Ht 5' 11.496 (1.82m) Wt 242 lb 6.4 oz (110.0kg) SpO2 98% BMI 33.34 kg/(m^2). Body surface area is 2.36 meters squared. ECOG 0 Exam limited to gross visualization where appropriate due to COVID-19. Gen.: This is an age-appropriate patient in no acute distress. Head: Appears atraumatic with no visible lesions. Eyes: Pupils equally round and reactive to light, extraocular muscles are intact. Neck: Supple. Mouth: Mucous membranes appeared to be moist. Respiratory: Appears to be respiring comfortably. Neurologic: Nonfocal to gross visualization. Alert and oriented 3. Psychiatric: No evidence of inappropriate anxiety or depression. Skin: Visible areas of skin without rash, lesions, wounds or petechiae. ALLERGIES: ALLERGIES Allergen Reactions Oseltamivir Other: See Comments MEDICATIONS: dicyclomine (BENTYL) 20 mg tablet doxycycline (VIBRA-TABS) 100 mg tablet Take 100 mg by mouth twice daily. mupirocin (BACTROBAN) 2 % ointment REVLIMID 5 mg capsule TAKE 1 CAPSULE BY MOUTH 1 TIME DAILY. BASAGLAR KWIKPEN U-100 INSULIN 100 unit/mL (3 mL) INJECT TEN UNITS SUBCUTANEOUSLY ONCE DAILY nystatin (MYCOSTATIN) 100,000 unit/mL suspension TAKE 4 ML BY MOUTH swish in mouth for as long as possible BEFORE swallowing FOUR TIMES DAILY FOR 10 DAYS VICTOZA 2-REGULO 0.6 mg/0.1 mL (18 mg/3 mL) Inject 1.8 mg subcutaneously. triamcinolone acetonide (KENALOG) 0.1 % ointment gabapentin (NEURONTIN) 100 mg capsule Take 1 capsule by mouth daily at bedtime for 30 days. rOPINIRole (REQUIP) 2 mg tablet Take 1 tablet by mouth daily at bedtime. escitalopram oxalate (LEXAPRO) 10 mg tablet Take 1 tablet by mouth once daily. Cholecalciferol, Vitamin D3, (VITAMIN D) 25 mcg (1,000 unit) cap Take 2 capsules by mouth once daily. atorvastatin (LIPITOR) 10 mg tablet Take 10 mg by mouth once daily. cetirizine (ZYRTEC) 10 mg tablet Take 10 mg by mouth once daily. dapagliflozin (FARXIGA) 10 mg tablet Take 10 mg by mouth daily with breakfast. glipiZIDE 10 mg tablet Take 10 mg by mouth once daily. LABORATORY VALUES: Hemoglobin (g/dL) Date Value 08/04/2022 14.5 07/02/2021 14.0 Hematocrit (%) Date Value 08/04/2022 42.7 07/02/2021 42.1 WBC (k/uL) Date Value 08/04/2022 4.26 07/02/2021 5.06 Platelet Count (k/uL) Date Value 08/04/2022 78 07/02/2021 57 DIAGNOSIS: No diagnosis found. PAST MEDICAL HISTORY Diagnosis Date Allergic rhinitis Biceps rupture, proximal 04/09/2014 Bicipital tenosynovitis 11/01/2013 Chronic pain COVID-19 06/11/2020 positive test 06/13/20 Depression 09/18/2020 Continue home dose of lexapro Elevated blood protein elevated MGUS Generalized anxiety disorder Glaucoma Hypercholesteremia 09/17/2020 Hold Lipitor inpatient Hyperlipemia Hypertension Leukocytosis MRSA infection Multiple myeloma ([facility]) 09/17/2020 6 Cycles RVD (February 2020 through August 2020) in a [place] Multiple myeloma not having achieved remission ([facility]) 02/04/2020 Neuropathy 08/20/2020 Continue home Gabapentin Obesity Restless leg syndrome 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 Protocol(s): 3422 1C Preparative regimen: Melphalan Mobilization regimen: plerixafor & neupogenStem cell source: apheresis CD34 cell dose (x10e6/kg): 4.05 Date of transplant: 09/19/20 Type 2 diabetes ([facility]) 08/20/2020 Takes metformin, Lantus, victoza & Farxiga Sliding Scale inpatient & Lantus Plan: -Endo following, recs in dc instructions for home Type II or unspecified type diabetes mellitus without mention of complication, uncontrolled PAST SURGICAL HISTORY Procedure Laterality Date EXTENSIVE FINGER SURGERY Right FOOT/TOES SURGERY PROC UNLISTED Left hammer toes and bunions PALATOP CL PALATE ATTACHMENT PHARYNGEAL FLAP age 5 SHOULDER SURGERY HX Left tendon repair Social History Tobacco Use Smoking status: Former Packs/day: 1.00 Years: 40.00 Pack years: 40.00 Types: Cigarettes Passive exposure: Past Smokeless tobacco: Never Tobacco comments: 03/30/2018 Vaping Use Vaping Use: Never used Substance Use Topics Alcohol use: Yes Comment: occassional Drug use: Yes Types: Marijuana Comment: THC edibles, 3x a week FAMILY HISTORY Problem Relation Age of Onset Cancer Mother brain 76 y/o Heart disease Mother Hypertension Mother Diabetes Father Heart disease Father Hypertension Father Heart Attack Father Diabetes Sister other (atrial fib) Sister COPD Sister No Known Problems Sister other (polio) Maternal Grandfather Diabetes Paternal Grandmother No Known Problems Daughter Soha Nunn APRN.[facility] Provided at: [place], [place] CC: Dr. Frankie Michael Dr. [facility] I spent a total of 30 minutes on the date of the service which included preparing to see the patient, [id number] patient care, completing clinical documentation, obtaining and/or reviewing separately obtained history, performing a medically appropriate examination, counseling and educating the pat ient/family/caregiver, ordering medications, tests, or procedures, independently interpreting results (not separately reported), and communicating results to the patient/family/caregiver. documented in this encounterC[facility] Nurse Note* Mariaelena Wiggins MA - 08/04/2022 1:19 PM EDT Patient was in [place] ER due to pain in left side chest area down, they did due testing but they could not find anything.Patient was given Dicyclomine 20mg. Does patient need to take Revlimid? Dr. Youssef had patient stop. Mariaelena Staley MA documented in this encounterC[facility]03-02-2023 Evaluation note* Encounter Date Diagnosis Assessment Notes Treatment Notes Treatment Clinical Notes Jul, Follicular cyst of the skin and subcutaneous tissue, unspecified (ICD-10 - L72.9) To see Dr. Negrete next week for discussion over excision of ? cystic sac. No signs of infection today. Has one day left on PO ABX. Continue to keep it clean with skin wash. [facility] Other 03-01-2023 History of Present illness Narrative* Vimal Crandall MD - 07/07/2022 1:45 PM EST Images from the original note were not included. NAME: Jon Bauer CLINIC NO.: [id number] DATE OF SERVICE: July 07, 2022 (Raz) Some elements in this clinic note that are critical to medical decision making have been carefully reviewed and included from a prior clinic note dated: June 09, 2022 (Raz) Additional Clinicians involved in Jon Bauer's care: Dr. Lomeli (PCP), Frankie Campbell CC: Multiple myeloma followup ASSESSMENT: This is a 71 yo man diagnosed with an IgG lambda monoclonal gammopathy in 2019 and was then noted to have rising M-spike and PET scan documented a sternal lesion. 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 ISS and R-ISS stage II disease. He had a partial response to induction therapy and has recovered following Autologous stem cell infusion. He is on schedule with his post transplant vaccinations. Mild thrombocytopenia - Stable for now. Additional medical issues include: - Immunodeficiency following HDSCT and patient will continue Acyclovir and post- transplant immunizations per Infectious Disease protocol - Renal failure is improving and we will continue monitoring - Neuropathy is stable - Diabetes mellitus managed by PCP is elevated from steroids. Initial M-Protein is 3.31 prior to Induction Current M-spike is 0.34 as of 06/09/22 PLAN: Continue to Hold Revlimid 5 mg daily for 4 weeks Follow up in 4 weeks - CBC, CMP and myeloma profile labs. Continue Follow up with Dr. Campos. TREATMENT TO DATE: . 07/30/2021: Resumed Rev at 5mg daily due to thrombocytopenia. 312/26/2020: Rx for Maintenance Rev 10mg daily 2. 09/19/2020: HDCT Auto transplant (D0). 1. 02/18/2020 - 08/25/2020: RVD HPI: Updated Visit, July 07, 2022: Saw Dr. Michael 1 week ago and will be seeing plastic surgery - Dr. Moore - currently on Doxycycline. Diarrhea improved. Blood sugars still very high - reviewed and educated regarding Sister 2 weeks ago in [facility]. [facility] and had wound cleaned out. Updated Visit, June 09, 2022: Continues to have ID issues now has diarrhea following two rounds of antibiotic for sinus infections and also additional for MRSA of his left face. M-spike stable. IgG is > 700. Blood sugars are > 500 with adjustments in insulin. Updated Visit, May 12, 2022: Jon Bauer returns for scheduled follow-up. He remains on Revlimid 5 mg daily which he is tolerating well. He denies any significant side effects from the Revlimid. He states that he did not take the Revlimid for 3 to 4 days this month after starting the antibiotic because the combination was rough on his stomach. He recently developed a head cold and chest congestion. He was diagnosed with anear infection by his PCP. He states that he has been feeling under the weather! . He was given a course of amoxicillin and then developed diarrhea. His symptoms did not improve and was recently started on another course of antibiotics and prednisone. He denies fevers and chills. He denies bleedingand abnormal bruising. No new unusual pain. Updated Visit, April 14, 2022: Labs stable. 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 No other major issues. Chronic limitations to duration of exercise. 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 Counts are stable. Updated Visit, February 17, 2022: Jon Bauer returns for follow-up and labs. He is still being treated for MRSA with Bactrim and aface wash. He has had oral thrush on and off for a couple of months. He remains on Revlimid 5 mg daily and is tolerating it well. He denies any significant side effects from the Revlimid. He denies fevers, chills, night sweats and signs/symptoms of infection. No bleeding or abnormal bruising. Overal l he is doing well with no new complaints today. No new issues, problems or concerns. Updated Visit, January 18, 2022: Infection in cheek - (MRSA) is resolving currently on Bactrim DS for a 30 day course. Will resume Revlimid 5 mg and if platelets drop below 35k will decrease to 2.5 mg daily. Currently platelets have recovered to 78k nd will resume treatment. Now has a scab on his right forearm and is seeing dermatology. Looks like a superficial burn with skin sloughing 2 friends have recently - just sad about that. Updated Visit, January 01, 2022: Jon returns and is quite uncomfortable. His platelets still low and abscesses have recurred. Blood sugar is high - can't get in to see Dr. Michael - going to the ER Leisa won several prizes rom baking at the fair and granddaughter won showing her pig. Updated Visit, December 18, 2021: Jon returns and his facial infection finally cleared up but required debridement and drainage. HadDalvance IV Thrush resolved Platelets still low Will hold Revlimid for 2 more weeks - still thromboctopenic - will see if clearance from Dalvance will allow him to resolve. Updated Visit, November 20, 2021: Returns today and retells his saga with sinus infection from last visit: Augmentin didn't help - required tessalon, prednisone and levaquin to get things improved. Then got thrush - now has communityacquired MRSA abscess on his face on Bactrim now. Otherwise doing well from myeloma standpoint. Updated Visit, October 23, 2021: Jon returns alone today and remains on Rev maintenance. Sinus fullness and productive cough will treat empirically. Otherwise continues to do well. Updated Visit, September 25, 2021: Jon Bauer returns for follow-up. He remains on Revlimid 5 mg daily and is tolerating it well. He denies any side effects from the Revlimid. He started his current cycle on September 08. He denies any unusual pain. He denies fevers, chills, night sweats and signs/symptoms of infection. He denies any abnormal bleeding or abnormal bruising. His skin is thin as he ages and tends to bleed easier due to that. His diarrhea is much improved. He remains on Metamucil. He offers no new complaints today. No new issues, problems or concerns. Updated Visit, August 28, 2021: Diarrhea associated with Metformin now improved significantly. His counts are fairly stable but platelets are a little low. Will continue treatment as is for now and consider holding the dose if he gets lower. Back on insulin for managing blood sugars. Updated Visit, July 30, 2021: Still has diarrhea biopsy results pending. Leisa is with him today. He is doing well overall. Will resume Revlimid at 5 mg daily. Platelets are at 100k. Updated Visit, July 16, 2021: Telephone only for 12 minutes Called Jon as requested and his counts were reviewed. His platelets are improving but still less than 100k. Unfortunately he still has daily diarrhea but is seeing Dr. Garay next week. We will plan to hold his Revilimid for a few weeks longer. Updated Visit, July 02, 2021: Platelets suppressed after having restarted revlimid 1 week ago - will ask him to stop. Still having diarrhea and is going to GI tomorrow M-spike continues to drop slowly. If unable to continue Rev, will change maintenance. Updated Visit, May 07, 2021: Will resume lexapro for depression. May be confusing ativan with lexapro No additional rash - Leisa is with him today. If it recurs, we can switch maintenance to Ixazomib or pomalidomide - defer to transplant team. Updated Visit, April 17, 2021: Walking better, neuropathy improving, fatigue resolving, appetite is improved. Only thing worse is restless legs in the evening. Getting his vaccination series. Labs stable. Rash is resolved. Updated Visit, January 28, 2021: Intermittent bowel issues but no significant problems. Both COVID-19 Vax Pfizer as of tomorrow Balance and activity levels are better - dizziness has resolved. recovereing from mild Upper respiratory viral infection M-Protein Concentration (gm/dL) Date Value 07/02/2021 0.36 Updated Visit, December 26, 2020: Jon returns today reporting a hospitalization for SBO with intractable nausea 12/16/2020. Managed conservatively and resolved. Proceed with vaccination schedule Start with COVID-19 vax. Occult Blood in stools - consider CT at next visit. Updated Visit, December 05, 2020: Occasional swelling in knees and ankles but is walking and getting more active. Still gets cold easily and has intermittent diarrhea but less than previous. Anemia is improved. Still has fatigue but is improving with continued activity. D100 s approximately 12/27/2020 and will need to start maintenance Revlimid beyond that time. He will need COVID Vax and others on schedule that he has. Updated Visit, November 13, 2020: Jon is 70 yo and underwent Autologous transplantMay 2020 was day of Autologous transplant and is doing well. We will continue monitoring his response and will anticipate starting maintenance therapy at the appropriate time. He had recent resolution of GI symptoms due to a prolonged course of Cipro- which once identified was stopped and symptoms resolved. 08/24/2020 his pretransplant testing revealed a 24-hour urine with 0.02 gm M spike. His serum M protein was 0.61, serum kappa light chains 15.3, serum lambda light chain 17.0, serum kappa/lambda ratio0.90 (normal 0.26-1.65), and his bone marrow examination from 08/19/2020 was 40% cellular with less than 5% plasma cells and normal cytogenetics. His pretransplant disease response was a OK. Transplant overview: Protocol(s): 3422 1C Preparative regimen: Melphalan Mobilization regimen: plerixafor & neupogen Stem cell source: apheresis CD34 cell dose (x10e6/kg): 4.05 Date of transplant: 09/19/20 Updated Visit, August 11, 2020: Jon is 69 years old and returns to resume treatment with Velcade plus Revlimid just prior to getting autologous transplant. He has recovered from Covid and is much more active and feels quite a bit better. Fatigue is resolved and he had a great week last week. His counts have recovered and he is safe to proceed. Updated Visit, July 11, 2020: Jon is 69 yo and ended up getting COVID-19 and we held treatment. He has now recovered from the acute effects and has also normalized his kidney function. We will resume treatment next week. Still fatigued, didn't end up in the hospital at least. Updated Visit, June 04, 2020: Jon is 69 yo and returns for ongoing treatment of MM with RVD. He is having difficulty with tolerance and complains of persisting diarrhea - will stop revlimid (he's still taking 25mg). He saw Dr. Campbell for transplant and we will get a 24 hour urine IEP with the next assessment. We will have a break in treatment and then start Rev at a lower dose as previously discussed with him. Updated Visit, May 19, 2020: Feel better but has burning in his stomach which we will try mylanta rather than Pepto-bismol. He is due to see BMT tomorrow virtually and otherwise, with the resolution of his symptoms from last week, he will resume treamtent as scheduled. He has responsive disease on RVD. Updated Visit, May 12, 2020: Jon is 69 yo and is being treated from IgG Lambda multiple myeloma with initial M-spike of 3.3 gm and small lytic lesions in both humeral heads and distal right femur. PET CT noted a lesion on the sternum. He is due for cycle 4 but feels lousy with respect to energy and persisting nausea. He has mild sensory neuropathy as well and is struggling with the decadron to manage his sugars. Updated Visit, April 14, 2020: Jon is 69 years old and returns for treatment for his newly diagnosed multiple myeloma currently on RVD. 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 Bone marrow biopsy in December 2019 revealed findings consistent with smoldering myeloma but with small lytic lesions in both humeral heads as well as right distal femur and an additional lesion noted on the sternumby PET/CT, we elected to treat him with 8-10 cycles of RVD. I discussed consideration of pulmonary transplant with him at his last visit and I will plan on referring him following his third cycle of treatment. He reports that he had issues with nausea and diarrhea, as well gas. Everything is settled down, but he is anxious about symptoms going forward. Updated visit, March 17, 2020: Jon is 69 years old and returns with his Leisa for treatment of newly diagnosed multiple myeloma for which he has been started on RVD. He was followed for a monoclonal gammopathy IgG lambda of3.3 g since November 2018. Biopsy in December 2019 demonstrated what appeared to be smoldering myeloma but he had small lytic lesions in both humeral heads as well as distal right femur. PET/CT showed an additional lesion in the sternum but did not find the femoral or humeral head lesions based on these findings we electively started him on initial treatment. I anticipate 8-10 cycles of RVD and he returns today for his second cycle. He tolerated his first cycle well however he has some unpredictable bouts of diarrhea small rash on his neck that is resolving as well as candidal mucositis that resolved with Diflucan. Overall he is tolerating treatment very well, has no neuropathy and is willing to proceed with additional treatment as planned. Updated Visit, February 08, 2020: Jon Bauer is a 69 year old male seen for a monoclonal gammopathy found on routine labs. The patient was found to have a monoclonal gammopathy of (IgG) 3.3 gm with lambda specificity noted in Dr. BALDWIN's notes from 11/29/2018. He had not yet had a bone marrow biopsy so performed 1 on December 17, 2019 and it appeared that he had at least a smoldering myeloma with small lytic lesions in both Humeral heads as well as the distal right femur. A PET/CT wich showed only a sternal lesion with uptake FDG with SUV 2.7 and no uptakein either femur or humeral heads. Findings are consistent with multiple myeloma and we will proceed with induction therapy. I sat with him and his Leisa and extensively reviewed the treatmtent plan as well as the risks and benefits. I anticipate 8-10 cycles of induction. I will discuss HCT with them at their next visit so as to not overwhelm them. He has mild neuropathy from poorly controlled diabetes and coronary artery calcification but otherwise has a well preserved performance status and could be appropriate despite being older than 65. RADIOGRAPHIC DATA: Reviewed on February 08, 2020 2. 02/01/2020 PET/CT: 1. NECK: No FDG avid neoplastic process. 2. CHEST: No FDG avid neoplastic process. 3. ABDOMEN/PELVIS: No FDG avid neoplastic process. 4. EXTREMITIES/SKELETON: * 1.2 cm mildly FDG-avid lytic lesion in the sternum with SUV max of 2.7, may represent a site of active myeloma. * No FDG avid destructive osseous lesions elsewhere. Specifically, no hypermetabolic lesions in humeral heads or femurs. 1. 06/08/2019 Bone Survey: Lytic lesions involving bilateral humeral heads and distal right femur PATHOLOGIC PROFILE/MOLECULAR DATA: Reviewed on 02/08/2020 1. 12/17/2019 bone marrow biopsy and aspirate: Bone marrow, aspirate smear and core biopsy, with clot section and peripheral blood: -Involved by plasma cell neoplasm with 5 to 10% plasma cells. -Normocellular bone marrow 20% with trilineage hematopoiesis. -Stainable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 uncomfortable. His platelets still low and abscesses have recurred. Blood sugar is high - can't get in to see Dr. Michael - going to the ER Leisa won several prizes rom baking at the [employer] and granddaughter won showing her pig. Updated Visit, December 18, 2021: Jon returns and his facial infection finally cleared up but required debridement and drainage. HadDalvance IV Thrush resolved Platelets still low Will hold Revlimid for 2 more weeks - still thromboctopenic - will see if clearance from Dalvance will allow him to resolve. Updated Visit, November 20, 2021: Returns today and retells his saga with sinus infection from last visit: Augmentin didn't help - required tessalon, prednisone and levaquin to get things improved. Then got thrush - now has communityacquired MRSA abscess on his face on Bactrim now. Otherwise doing well from myeloma standpoint. Updated Visit, October 23, 2021: Jon returns alone today and remains on Rev maintenance. Sinus fullness and productive cough will treat empirically. Otherwise continues to do well. Updated Visit, September 25, 2021: Jon Bauer returns for follow-up. He remains on Revlimid 5 mg daily and is tolerating it well. He denies any side effects from the Revlimid. He started his current cycle on September 08. He denies any unusual pain. He denies fevers, chills, night sweats and signs/symptoms of infection. He denies any abnormal bleeding or abnormal bruising. His skin is thin as he ages and tends to bleed easier due to that. His diarrhea is much improved. He remains on Metamucil. He offers no new complaints today. No new issues, problems or concerns. Updated Visit, August 28, 2021: Diarrhea associated with Metformin now improved significantly. His counts are fairly stable but platelets are a little low. Will continue treatment as is for now and consider holding the dose if he gets lower. Back on insulin for managing blood sugars. Updated Visit, July 30, 2021: Still has diarrhea biopsy results pending. Leisa is with him today. He is doing well overall. Will resume Revlimid at 5 mg daily. Platelets are at 100k. Updated Visit, July 16, 2021: Telephone only for 12 minutes Called Jon as requested and his counts were reviewed. His platelets are improving but still less than 100k. Unfortunately he still has daily diarrhea but is seeing Dr. Garay next week. We will plan to hold his Revilimid for a few weeks longer. Updated Visit, July 02, 2021: Platelets suppressed after having restarted revlimid 1 week ago - will ask him to stop. Still having diarrhea and is going to GI tomorrow M-spike continues to drop slowly. If unable to continue Rev, will change maintenance. Updated Visit, May 07, 2021: Will resume lexapro for depression. May be confusing ativan with lexapro No additional rash - Leisa is with him today. If it recurs, we can switch maintenance to Ixazomib or pomalidomide - defer to transplant team. Updated Visit, April 17, 2021: Walking better, neuropathy improving, fatigue resolving, appetite is improved. Only thing worse is restless legs in the evening. Getting his vaccination series. Labs stable. Rash is resolved. Updated Visit, January 28, 2021: Intermittent bowel issues but no significant problems. Both COVID-19 Vax Pfizer as of tomorrow Balance and activity levels are better - dizziness has resolved. recovereing from mild Upper respiratory viral infection M-Protein Concentration (gm/dL) Date Value 07/02/2021 0.36 Updated Visit, December 26, 2020: Jon returns today reporting a hospitalization for SBO with intractable nausea 12/16/2020. Managed conservatively and resolved. Proceed with vaccination schedule Start with COVID-19 vax. Occult Blood in stools - consider CT at next visit. Updated Visit, December 05, 2020: Occasional swelling in knees and ankles but is walking and getting more active. Still gets cold easily and has intermittent diarrhea but less than previous. Anemia is improved. Still has fatigue but is improving with continued activity. D100 s approximately 12/27/2020 and will need to start maintenance Revlimid beyond that time. He will need COVID Vax and others on schedule that he has. Updated Visit, November 13, 2020: Jon is 70 yo and underwent Autologous transplantMay 2020 was day of Autologous transplant and is doing well. We will continue monitoring his response and will anticipate starting maintenance therapy at the appropriate time. He had recent resolution of GI symptoms due to a prolonged course of Cipro- which once identified was stopped and symptoms resolved. 08/24/2020 his pretransplant testing revealed a 24-hour urine with 0.02 gm M spike. His serum M protein was 0.61, serum kappa light chains 15.3, serum lambda light chain 17.0, serum kappa/lambda ratio0.90 (normal 0.26-1.65), and his bone marrow examination from 08/19/2020 was 40% cellular with less than 5% plasma cells and normal cytogenetics. His pretransplant disease response was a OK. Transplant overview: Protocol(s): 3422 1C Preparative regimen: Melphalan Mobilization regimen: plerixafor & neupogen Stem cell source: apheresis CD34 cell dose (x10e6/kg): 4.05 Date of transplant: 09/19/20 Updated Visit, August 11, 2020: Jon is 69 years old and returns to resume treatment with Velcade plus Revlimid just prior to getting autologous transplant. He has recovered from Covid and is much more active and feels quite a bit better. Fatigue is resolved and he had a great week last week. His counts have recovered and he is safe to proceed. Updated Visit, July 11, 2020: Jon is 69 yo and ended up getting COVID-19 and we held treatment. He has now recovered from the acute effects and has also normalized his kidney function. We will resume treatment next week. Still fatigued, didn't end up in the hospital at least. Updated Visit, June 04, 2020: Jon is 69 yo and returns for ongoing treatment of MM with RVD. He is having difficulty with tolerance and complains of persisting diarrhea - will stop revlimid (he's still taking 25mg). He saw Dr. Campbell for transplant and we will get a 24 hour urine IEP with the next assessment. We will have a break in treatment and then start Rev at a lower dose as previously discussed with him. Updated Visit, May 19, 2020: Feel better but has burning in his stomach which we will try mylanta rather than Pepto-bismol. He is due to see BMT tomorrow virtually and otherwise, with the resolution of his symptoms from last week, he will resume treamtent as scheduled. He has responsive disease on RVD. Updated Visit, May 12, 2020: Jon is 69 yo and is being treated from IgG Lambda multiple myeloma with initial M-spike of 3.3 gm and small lytic lesions in both humeral heads and distal right femur. PET CT noted a lesion on the sternum. He is due for cycle 4 but feels lousy with respect to energy and persisting nausea. He has mild sensory neuropathy as well and is struggling with the decadron to manage his sugars. Updated Visit, April 14, 2020: Jon is 69 years old and returns for treatment for his newly diagnosed multiple myeloma currently on RVD. 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 Bone marrow biopsy in December 2019 revealed findings consistent with smoldering myeloma but with small lytic lesions in both humeral heads as well as right distal femur and an additional lesion noted on the sternumby PET/CT, we elected to treat him with 8-10 cycles of RVD. I discussed consideration of pulmonary transplant with him at his last visit and I will plan on referring him following his third cycle of treatment. He reports that he had issues with nausea and diarrhea, as well gas. Everything is settled down, but he is anxious about symptoms going forward. Updated visit, March 17, 2020: Jon is 69 years old and returns with his Leisa for treatment of newly diagnosed multiple myeloma for which he has been started on RVD. He was followed for a monoclonal gammopathy IgG lambda of3.3 g since November 2018. Biopsy in December 2019 demonstrated what appeared to be smoldering myeloma but he had small lytic lesions in both humeral heads as well as distal right femur. PET/CT showed an additional lesion in the sternum but did not find the femoral or humeral head lesions based on these findings we electively started him on initial treatment. I anticipate 8-10 cycles of RVD and he returns today for his second cycle. He tolerated his first cycle well however he has some unpredictable bouts of diarrhea small rash on his neck that is resolving as well as candidal mucositis that resolved with Diflucan. Overall he is tolerating treatment very well, has no neuropathy and is willing to proceed with additional treatment as planned. Updated Visit, February 08, 2020: Jon Bauer is a 69 year old male seen for a monoclonal gammopathy found on routine labs. The patient was found to have a monoclonal gammopathy of (IgG) 3.3 gm with lambda specificity noted in Dr. BALDWIN's notes from 11/29/2018. He had not yet had a bone marrow biopsy so performed 1 on December 17, 2019 and it appeared that he had at least a smoldering myeloma with small lytic lesions in both Humeral heads as well as the distal right femur. A PET/CT wich showed only a sternal lesion with uptake FDG with SUV 2.7 and no uptakein either femur or humeral heads. Findings are consistent with multiple myeloma and we will proceed with induction therapy. I sat with him and his Leisa and extensively reviewed the treatmtent plan as well as the risks and benefits. I anticipate 8-10 cycles of induction. I will discuss HCT with them at their next visit so as to not overwhelm them. He has mild neuropathy from poorly controlled diabetes and coronary artery calcification but otherwise has a well preserved performance status and could be appropriate despite being older than 65. RADIOGRAPHIC DATA: Reviewed on February 08, 2020 2. 02/01/2020 PET/CT: 1. NECK: No FDG avid neoplastic process. 2. CHEST: No FDG avid neoplastic process. 3. ABDOMEN/PELVIS: No FDG avid neoplastic process. 4. EXTREMITIES/SKELETON: * 1.2 cm mildly FDG-avid lytic lesion in the sternum with SUV max of 2.7, may represent a site of active myeloma. * No FDG avid destructive osseous lesions elsewhere. Specifically, no hypermetabolic lesions in humeral heads or femurs. 1. 06/08/2019 Bone Survey: Lytic lesions involving bilateral humeral heads and distal right femur PATHOLOGIC PROFILE/MOLECULAR DATA: Reviewed on 02/08/2020 1. 12/17/2019 bone marrow biopsy and aspirate: Bone marrow, aspirate smear and core biopsy, with clot section and peripheral blood: -Involved by plasma cell neoplasm with 5 to 10% plasma cells. -Normocellular bone marrow 20% with trilineage hematopoiesis. -Stainable iron present. -Comment-the patient has a history of IgG lambda monoclonal protein. The bone marrow shows involvement by a plasma cell neoplasm with 3% plasma cells in the aspirate smear and 5 to 10% plasma cells by immunohistochemistry. Final classification of plasma cell neoplasms require correlation with additional clinical laboratory and/or radiologic findings. FISH for plasma cell neoplasm: Findings demonstrated plasma cell population with trisomy 9, [id number] and gain of genetic material at the CCN D1 locus or trisomy 11. These findings are consistent with the presence of a plasma cell neoplasm and represent standard risk disease. Cytogenetics: Normal male karyotype 46, XY 20 REVIEW OF SYSTEMS Per HPI and otherwise negative by full review of organ systems. ECOG PERFORMANCE STATUS: 0 PHYSICAL EXAMINATION: Vitals: BP 127/63 Pulse 69 Temp (Src) 97.6 (Temporal) Resp 16 Ht 5' 11.496 (1.82m) Wt 244 lb (110.7kg) SpO2 95% BMI 33.56 kg/(m^2). Body surface area is 2.36 meters squared. ECOG 0 Exam limited to gross visualization where appropriate due to COVID-19. Gen.: This is an age-appropriate patient in no acute distress. Head: Appears atraumatic with no visible lesions. Eyes: Pupils equally round and reactive to light, extraocular muscles are intact. Neck: Supple. Mouth: Mucous membranes appeared to be moist. Respiratory: Appears to be respiring comfortably. Neurologic: Nonfocal to gross visualization. Alert and oriented 3. Psychiatric: No evidence of inappropriate anxiety or depression. Skin: Visible areas of skin without rash, lesions, wounds or petechiae. ALLERGIES: ALLERGIES Allergen Reactions Oseltamivir Other: See Comments MEDICATIONS: REVLIMID 5 mg capsule TAKE 1 CAPSULE BY MOUTH 1 TIME DAILY. BASAGLAR KWIKPEN U-100 INSULIN 100 unit/mL (3 mL) INJECT TEN UNITS SUBCUTANEOUSLY ONCE DAILY nystatin (MYCOSTATIN) 100,000 unit/mL suspension TAKE 4 ML BY MOUTH swish in mouth for as long as possible BEFORE swallowing FOUR TIMES DAILY FOR 10 DAYS VICTOZA 2-REUGLO 0.6 mg/0.1 mL (18 mg/3 mL) Inject 1.8 mg subcutaneously. triamcinolone acetonide (KENALOG) 0.1 % ointment rOPINIRole (REQUIP) 2 mg tablet Take 1 tablet by mouth daily at bedtime. escitalopram oxalate (LEXAPRO) 10 mg tablet Take 1 tablet by mouth once daily. Cholecalciferol, Vitamin D3, (VITAMIN D) 25 mcg (1,000 unit) cap Take 2 capsules by mouth once daily. atorvastatin (LIPITOR) 10 mg tablet Take 10 mg by mouth once daily. cetirizine (ZYRTEC) 10 mg tablet Take 10 mg by mouth once daily. dapagliflozin (FARXIGA) 10 mg tablet Take 10 mg by mouth daily with breakfast. glipiZIDE 10 mg tablet Take 10 mg by mouth once daily. gabapentin (NEURONTIN) 100 mg capsule Take 1 capsule by mouth daily at bedtime for 30 days. LABORATORY VALUES: WBC (k/uL) Date Value 06/09/2022 4.58 RBC (m/uL) Date Value 06/09/2022 4.49 Hemoglobin (g/dL) Date Value 06/09/2022 13.9 Hematocrit (%) Date Value 06/09/2022 41.0 MCV (fL) Date Value 06/09/2022 91.3 MCH (pg) Date Value 06/09/2022 31.0 MCHC (g/dL) Date Value 06/09/2022 33.9 RDW-CV (%) Date Value 06/09/2022 13.8 Platelet Count (k/uL) Date Value 06/09/2022 79 (L) MPV (fL) Date Value 06/09/2022 9.3 Glucose (mg/dL) Date Value 06/09/2022 552 (H) BUN (mg/dL) Date Value 06/09/2022 23 Creatinine (mg/dL) Date Value 06/09/2022 1.18 Sodium (mmol/L) Date Value 06/09/2022 132 (L) Potassium (mmol/L) Date Value 06/09/2022 4.4 Chloride (mmol/L) Date Value 06/09/2022 96 (L) CO2 (mmol/L) Date Value 06/09/2022 26 Protein, Total (g/dL) Date Value 06/09/2022 6.6 06/09/2022 6.2 (L) Albumin (g/dL) Date Value 06/09/2022 3.9 Calcium, Total (mg/dL) Date Value 06/09/2022 9.3 Alkaline Phosphatase (U/L) Date Value 06/09/2022 119 (H) Bilirubin, Total (mg/dL) Date Value 06/09/2022 0.6 AST (U/L) Date Value 06/09/2022 36 ALT (U/L) Date Value 06/09/2022 51 Total Cholesterol, Nonfasting (mg/dL) Date Value 11/20/2021 142 Triglycerides, Nonfasting (mg/dL) Date Value 11/20/2021 456 (H) DIAGNOSIS: (C90.00) Multiple myeloma not having achieved remission (HCC) (primary encounter diagnosis) Plan: B2 MICROGLOBULIN B, CBC + DIFF, COMP METABOLIC PANEL, LD LACTATE DEHYDRO, PHOSPHORUS INORGANIC, PROTEIN ELECTROPHORESIS SERUM W/INTERP, MONOCLONAL PROTEIN, SERUM (BLOOD), URIC ACID BLOOD, CALCIUM IONIZED BLOOD, KAPPA/ORTIZ,FREE,SER (D84.9) Immunodeficiency (HCC) (E11.9) Type 2 diabetes (HCC) (N28.9) Renal insufficiency (D69.59) Thrombocytopenia, secondary PAST MEDICAL HISTORY Diagnosis Date Allergic rhinitis Biceps rupture, proximal 04/09/2014 Bicipital tenosynovitis 11/01/2013 Chronic pain COVID-19 06/11/2020 positive test 06/13/20 Depression 09/18/2020 Continue home dose of lexapro Elevated blood protein elevated MGUS Generalized anxiety disorder Glaucoma Hypercholesteremia 09/17/2020 Hold Lipitor inpatient Hyperlipemia Hypertension Leukocytosis MRSA infection Multiple myeloma ([facility]) 09/17/2020 6 Cycles RVD (February 2020 through August 2020) in a [place] Multiple myeloma not having achieved remission ([facility]) 02/04/2020 Neuropathy 08/20/2020 Continue home Gabapentin Obesity Restless leg syndrome 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 Protocol(s): 3422 1C Preparative regimen: Melphalan Mobilization regimen: plerixafor & neupogenStem cell source: apheresis CD34 cell dose (x10e6/kg): 4.05 Date of transplant: 09/19/20 Type 2 diabetes ([facility]) 08/20/2020 Takes metformin, Lantus, victoza & Farxiga Sliding Scale inpatient & Lantus Plan: -Endo following, recs in dc instructions for home Type II or unspecified type diabetes mellitus without mention of complication, uncontrolled PAST SURGICAL HISTORY Procedure Laterality Date EXTENSIVE FINGER SURGERY Right FOOT/TOES SURGERY PROC UNLISTED Left hammer toes and bunions PALATOP CL PALATE ATTACHMENT PHARYNGEAL FLAP age 5 SHOULDER SURGERY HX Left tendon repair Social History Tobacco Use Smoking status: Former Packs/day: 1.00 Years: 40.00 Pack years: 40.00 Types: Cigarettes Passive exposure: Past Smokeless tobacco: Never Tobacco comments: 03/30/2018 Vaping Use Vaping Use: Never used Substance Use Topics Alcohol use: Yes Comment: occassional Drug use: Yes Types: Marijuana Comment: THC edibles, 3x a week FAMILY HISTORY Problem Relation Age of Onset Cancer Mother brain 76 y/o Heart disease Mother Hypertension Mother Diabetes Father Heart disease Father Hypertension Father Heart Attack Father Diabetes Sister other (atrial fib) Sister COPD Sister No Known Problems Sister other (polio) Maternal Grandfather Diabetes Paternal Grandmother No Known Problems Daughter I spent a total of 40 minutes on the date of the service which included preparing to see the patient, [id number] patient care, completing clinical documentation, performing a medically appropriate examination, counseling and educating the patient/family/caregiver, ordering medications, tests, or p rocedures, communicating with other HCPs (not separately reported), independently interpreting results (not separately reported), and communicating results to the patient/family/caregiver. Vimal Crandall MD, CPE Hematology and Oncology Services Provided at: [place], [place] CC: Dr. Frankie Medellin documented in this encounterCleveland [facility]01-12-2023 Miscellaneous Notes* Telephone Encounter - Arin Small RPh - 05/20/2022 11:57 AM EST Authorization number obtained and faxed to [facility] Specialty 05/20/22. Auth #: [id number]. Norris Small rPh documented in this encounterCleveland Clinic Eucl[facility]01-04-2023 Nurse Note* Mariaelena Wiggins MA - 05/12/2022 2:16 PM EST Patient is being treated for respiratory issues, he was on antibiotics and it was just switched due to diarrhea but he has not picked it up yet. Mariaelena Wiggins MA documented in this encounterCleveland Clinic Eucl[facility]01-04-2023 History of Present illness Narrative* Soha Nunn APRN.HIM MANAGER - 05/12/2022 2:04 PM EST Images from the original note were not included. NAME: Jon Bauer CLINIC NO.: [id number] DATE OF SERVICE: May 12, 2022 ([place]) Some elements in this clinic note that are critical to medical decision making have been carefully reviewed and included from a prior clinic note dated: April 14, 2022. (Dr. Crandall) Additional Clinicians involved in Jon Bauer's care: Dr. Lomeli (PCP), Frankie Campbell CC: Multiple myeloma followup ASSESSMENT: This is a 71 yo man diagnosed with an IgG lambda monoclonal gammopathy in 2019 and was then noted to have rising M-spike and PET scan documented a sternal lesion. 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 ISS and R-ISS stage II disease. He had a partial response to induction therapy and has recovered following Autologous stem cell infusion. He is on schedule with his post transplant vaccinations. Mild thrombocytopenia - Stable for now. Additional medical issues include: - Immunodeficiency following HDSCT and patient will continue Acyclovir and post- transplant immunizations per Infectious Disease protocol - Renal failure is improving and we will continue monitoring - Neuropathy is stable - Diabetes mellitus managed by PCP Initial M-Protein is 3.31 prior to Induction PLAN: Continue Revlimid 5 mg daily. Follow up in 4 weeks - CBC, CMP and myeloma profile labs. TREATMENT TO DATE: 4. 07/30/2021: Resumed Rev at 5mg daily due to thrombocytopenia. 3. 12/26/2020: Rx for Maintenance Rev 10mg daily 2. 09/19/2020: HDCT Auto transplant (D0). 1. 02/18/2020 - 08/25/2020: RVD HPI: Updated Visit, May 12, 2022: Jon Bauer returns for scheduled follow-up. He remains on Revlimid 5 mg daily which he is tolerating well. He denies any significant side effects from the Revlimid. He states that he did not take the Revlimid for 3 to 4 days this month after starting the antibiotic because the combination was rough on his stomach. He recently developed a head cold and chest congestion. He was diagnosed with anear infection by his PCP. He states that he has been feeling under the weather! . He was given a course of amoxicillin and then developed diarrhea. His symptoms did not improve and was recently started on another course of antibiotics and prednisone. He denies fevers and chills. He denies bleedingand abnormal bruising. No new unusual pain. Updated Visit, April 14, 2022: Labs stable. 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 No other major issues. Chronic limitations to duration of exercise. 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 Counts are stable. Updated Visit, February 17, 2022: Jon Bauer returns for follow-up and labs. He is still being treated for MRSA with Bactrim and aface wash. He has had oral thrush on and off for a couple of months. He remains on Revlimid 5 mg daily and is tolerating it well. He denies any significant side effects from the Revlimid. He denies fevers, chills, night sweats and signs/symptoms of infection. No bleeding or abnormal bruising. Overal l he is doing well with no new complaints today. No new issues, problems or concerns. Updated Visit, January 18, 2022: Infection in cheek - (MRSA) is resolving currently on Bactrim DS for a 30 day course. Will resume Revlimid 5 mg and if platelets drop below 35k will decrease to 2.5 mg daily. Currently platelets have recovered to 78k nd will resume treatment. Now has a scab on his right forearm and is seeing dermatology. Looks like a superficial burn with skin sloughing 2 friends have recently - just sad about that. Updated Visit, January 01, 2022: Jon returns and is quite uncomfortable. His platelets still low and abscesses have recurred. Blood sugar is high - can't get in to see Dr. Michael - going to the ER Leisa won several prizes rom baking at the fair and granddaughter won showing her pig. Updated Visit, December 18, 2021: Jon returns and his facial infection finally cleared up but required debridement and drainage. HadDalvance IV Thrush resolved Platelets still low Will hold Revlimid for 2 more weeks - still thromboctopenic - will see if clearance from Dalvance will allow him to resolve. Updated Visit, November 20, 2021: Returns today and retells his saga with sinus infection from last visit: Augmentin didn't help - required tessalon, prednisone and levaquin to get things improved. Then got thrush - now has communityacquired MRSA abscess on his face on Bactrim now. Otherwise doing well from myeloma standpoint. Updated Visit, October 23, 2021: Jon returns alone today and remains on Rev maintenance. Sinus fullness and productive cough will treat empirically. Otherwise continues to do well. Updated Visit, September 25, 2021: Jon Bauer returns for follow-up. He remains on Revlimid 5 mg daily and is tolerating it well. He denies any side effects from the Revlimid. He started his current cycle on September 08. He denies any unusual pain. He denies fevers, chills, night sweats and signs/symptoms of infection. He denies any abnormal bleeding or abnormal bruising. His skin is thin as he ages and tends to bleed easier due to that. His diarrhea is much improved. He remains on Metamucil. He offers no new complaints today. No new issues, problems or concerns. Updated Visit, August 28, 2021: Diarrhea associated with Metformin now improved significantly. His counts are fairly stable but platelets are a little low. Will continue treatment as is for now and consider holding the dose if he gets lower. Back on insulin for managing blood sugars. Updated Visit, July 30, 2021: Still has diarrhea biopsy results pending. Leisa is with him today. He is doing well overall. Will resume Revlimid at 5 mg daily. Platelets are at 100k. Updated Visit, July 16, 2021: Telephone only for 12 minutes Called Jon as requested and his counts were reviewed. His platelets are improving but still less than 100k. Unfortunately he still has daily diarrhea but is seeing Dr. Garay next week. We will plan to hold his Revilimid for a few weeks longer. Updated Visit, July 02, 2021: Platelets suppressed after having restarted revlimid 1 week ago - will ask him to stop. Still having diarrhea and is going to GI tomorrow M-spike continues to drop slowly. If unable to continue Rev, will change maintenance. Updated Visit, May 07, 2021: Will resume lexapro for depression. May be confusing ativan with lexapro No additional rash - Leisa is with him today. If it recurs, we can switch maintenance to Ixazomib or pomalidomide - defer to transplant team. Updated Visit, April 17, 2021: Walking better, neuropathy improving, fatigue resolving, appetite is improved. Only thing worse is restless legs in the evening. Getting his vaccination series. Labs stable. Rash is resolved. Updated Visit, January 28, 2021: Intermittent bowel issues but no significant problems. Both COVID-19 Vax Pfizer as of tomorrow Balance and activity levels are better - dizziness has resolved. recovereing from mild Upper respiratory viral infection M-Protein Concentration (gm/dL) Date Value 07/02/2021 0.36 Updated Visit, December 26, 2020: Jon returns today reporting a hospitalization for SBO with intractable nausea 12/16/2020. Managed conservatively and resolved. Proceed with vaccination schedule Start with COVID-19 vax. Occult Blood in stools - consider CT at next visit. Updated Visit, December 05, 2020: Occasional swelling in knees and ankles but is walking and getting more active. Still gets cold easily and has intermittent diarrhea but less than previous. Anemia is improved. Still has fatigue but is improving with continued activity. D100 s approximately 12/27/2020 and will need to start maintenance Revlimid beyond that time. He will need COVID Vax and others on schedule that he has. Updated Visit, November 13, 2020: Jon is 70 yo and underwent Autologous transplantMay 2020 was day of Autologous transplant and is doing well. We will continue monitoring his response and will anticipate starting maintenance therapy at the appropriate time. He had recent resolution of GI symptoms due to a prolonged course of Cipro- which once identified was stopped and symptoms resolved. 08/24/2020 his pretransplant testing revealed a 24-hour urine with 0.02 gm M spike. His serum M protein was 0.61, serum kappa light chains 15.3, serum lambda light chain 17.0, serum kappa/lambda ratio0.90 (normal 0.26-1.65), and his bone marrow examination from 08/19/2020 was 40% cellular with less than 5% plasma cells and normal cytogenetics. His pretransplant disease response was a OK. Transplant overview: Protocol(s): 3422 1C Preparative regimen: Melphalan Mobilization regimen: plerixafor & neupogen Stem cell source: apheresis CD34 cell dose (x10e6/kg): 4.05 Date of transplant: 09/19/20 Updated Visit, August 11, 2020: oJn is 69 years old and returns to resume treatment with Velcade plus Revlimid just prior to getting autologous transplant. He has recovered from Covid and is much more active and feels quite a bit better. Fatigue is resolved and he had a great week last week. His counts have recovered and he is safe to proceed. Updated Visit, July 11, 2020: Jon is 69 yo and ended up getting COVID-19 and we held treatment. He has now recovered from the acute effects and has also normalized his kidney function. We will resume treatment next week. Still fatigued, didn't end up in the hospital at least. Updated Visit, June 04, 2020: Jon is 69 yo and returns for ongoing treatment of MM with RVD. He is having difficulty with tolerance and complains of persisting diarrhea - will stop revlimid (he's still taking 25mg). He saw Dr. Campbell for transplant and we will get a 24 hour urine IEP with the next assessment. We will have a break in treatment and then start Rev at a lower dose as previously discussed with him. Updated Visit, May 19, 2020: Feel better but has burning in his stomach which we will try mylanta rather than Pepto-bismol. He is due to see BMT tomorrow virtually and otherwise, with the resolution of his symptoms from last week, he will resume treamtent as scheduled. He has responsive disease on RVD. Updated Visit, May 12, 2020: Jon is 69 yo and is being treated from IgG Lambda multiple myeloma with initial M-spike of 3.3 gm and small lytic lesions in both humeral heads and distal right femur. PET CT noted a lesion on the sternum. He is due for cycle 4 but feels lousy with respect to energy and persisting nausea. He has mild sensory neuropathy as well and is struggling with the decadron to manage his sugars. Updated Visit, April 14, 2020: Jon is 69 years old and returns for treatment for his newly diagnosed multiple myeloma currently on RVD. 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 Bone marrow biopsy in December 2019 revealed findings consistent with smoldering myeloma but with small lytic lesions in both humeral heads as well as right distal femur and an additional lesion noted on the sternumby PET/CT, we elected to treat him with 8-10 cycles of RVD. I discussed consideration of pulmonary transplant with him at his last visit and I will plan on referring him following his third cycle of treatment. He reports that he had issues with nausea and diarrhea, as well gas. Everything is settled down, but he is anxious about symptoms going forward. Updated visit, March 17, 2020: Jon is 69 years old and returns with his Leisa for treatment of newly diagnosed multiple myeloma for which he has been started on RVD. He was followed for a monoclonal gammopathy IgG lambda of3.3 g since November 2018. Biopsy in December 2019 demonstrated what appeared to be smoldering myeloma but he had small lytic lesions in both humeral heads as well as distal right femur. PET/CT showed an additional lesion in the sternum but did not find the femoral or humeral head lesions based on these findings we electively started him on initial treatment. I anticipate 8-10 cycles of RVD and he returns today for his second cycle. He tolerated his first cycle well however he has some unpredictable bouts of diarrhea small rash on his neck that is resolving as well as candidal mucositis that resolved with Diflucan. Overall he is tolerating treatment very well, has no neuropathy and is willing to proceed with additional treatment as planned. Updated Visit, February 08, 2020: Jon Bauer is a 69 year old male seen for a monoclonal gammopathy found on routine labs. The patient was found to have a monoclonal gammopathy of (IgG) 3.3 gm with lambda specificity noted in Dr. BALDWIN's notes from 11/29/2018. He had not yet had a bone marrow biopsy so performed 1 on December 17, 2019 and it appeared that he had at least a smoldering myeloma with small lytic lesions in both Humeral heads as well as the distal right femur. A PET/CT wich showed only a sternal lesion with uptake FDG with SUV 2.7 and no uptakein either femur or humeral heads. Findings are consistent with multiple myeloma and we will proceed with induction therapy. I sat with him and his Leisa and extensively reviewed the treatmtent plan as well as the risks and benefits. I anticipate 8-10 cycles of induction. I will discuss HCT with them at their next visit so as to not overwhelm them. He has mild neuropathy from poorly controlled diabetes and coronary artery calcification but otherwise has a well preserved performance status and could be appropriate despite being older than 65. RADIOGRAPHIC DATA: Reviewed on February 08, 2020 2. 02/01/2020 PET/CT: 1. NECK: No FDG avid neoplastic process. 2. CHEST: No FDG avid neoplastic process. 3. ABDOMEN/PELVIS: No FDG avid neoplastic process. 4. EXTREMITIES/SKELETON: * 1.2 cm mildly FDG-avid lytic lesion in the sternum with SUV max of 2.7, may represent a site of active myeloma. * No FDG avid destructive osseous lesions elsewhere. Specifically, no hypermetabolic lesions in humeral heads or femurs. 1. 06/08/2019 Bone Survey: Lytic lesions involving bilateral humeral heads and distal right femur PATHOLOGIC PROFILE/MOLECULAR DATA: Reviewed on 02/08/2020 1. 12/17/2019 bone marrow biopsy and aspirate: Bone marrow, aspirate smear and core biopsy, with clot section and peripheral blood: -Involved by plasma cell neoplasm with 5 to 10% plasma cells. -Normocellular bone marrow 20% with trilineage hematopoiesis. -Stainable iron present. -Comment-the patient has a history of IgG lambda monoclonal protein. The bone marrow shows involvement by a plasma cell neoplasm with 3% plasma cells in the aspirate smear and 5 to 10% plasma cells by immunohistochemistry. Final classification of plasma cell neoplasms require correlation with additional clinical laboratory and/or radiologic findings. FISH for plasma cell neoplasm: Findings demonstrated plasma cell population with trisomy 9, [id number] and gain of genetic material at the CCN D1 locus or trisomy 11. These findings are consistent with the presence of a plasma cell neoplasm and represent standard risk disease. Cytogenetics: Normal male karyotype 46, XY 20 REVIEW OF SYSTEMS Per HPI and otherwise negative by full review of organ systems. ECOG PERFORMANCE STATUS: 0 PHYSICAL EXAMINATION: Vitals: BP 132/78 Pulse 72 Temp (Src) 97.3 (Temporal) Resp 16 Ht 5' 11.496 (1.82m) Wt 257 lb 3.2 oz (116.7kg) SpO2 97% BMI 35.38 kg/(m^2). Body surface area is 2.43 meters squared. ECOG 0 Exam limited to gross visualization where appropriate due to COVID-19. Gen.: This is an age-appropriate patient in no acute distress. Head: Appears atraumatic with no visible lesions. Eyes: Pupils equally round and reactive to light, extraocular muscles are intact. Neck: Supple. Mouth: Mucous membranes appeared to be moist. Respiratory: Appears to be respiring comfortably. Neurologic: Nonfocal to gross visualization. Alert and oriented 3. Psychiatric: No evidence of inappropriate anxiety or depression. Skin: Visible areas of skin without rash, lesions, wounds or petechiae. ALLERGIES: ALLERGIES Allergen Reactions Oseltamivir Other: See Comments MEDICATIONS: lenalidomide (REVLIMID) 5 mg capsule TAKE 1 CAPSULE BY MOUTH 1 TIME DAILY. BASAGLAR KWIKPEN U-100 INSULIN 100 unit/mL (3 mL) INJECT TEN UNITS SUBCUTANEOUSLY ONCE DAILY nystatin (MYCOSTATIN) 100,000 unit/mL suspension TAKE 4 ML BY MOUTH swish in mouth for as long as possible BEFORE swallowing FOUR TIMES DAILY FOR 10 DAYS sulfamethoxazole-trimethoprim (BACTRIM DS,SEPTRA DS) 800-160 mg per tablet Take 1 tablet by mouth twice daily. VICTOZA 2-REGULO 0.6 mg/0.1 mL (18 mg/3 mL) Inject 1.8 mg subcutaneously. triamcinolone acetonide (KENALOG) 0.1 % ointment gabapentin (NEURONTIN) 100 mg capsule Take 1 capsule by mouth daily at bedtime for 30 days. rOPINIRole (REQUIP) 2 mg tablet Take 1 tablet by mouth daily at bedtime. escitalopram oxalate (LEXAPRO) 10 mg tablet Take 1 tablet by mouth once daily. Cholecalciferol, Vitamin D3, (VITAMIN D) 25 mcg (1,000 unit) cap Take 2 capsules by mouth once daily. atorvastatin (LIPITOR) 10 mg tablet Take 10 mg by mouth once daily. cetirizine (ZYRTEC) 10 mg tablet Take 10 mg by mouth once daily. dapagliflozin (FARXIGA) 10 mg tablet Take 10 mg by mouth daily with breakfast. glipiZIDE 10 mg tablet Take 10 mg by mouth once daily. LABORATORY VALUES: Hemoglobin (g/dL) Date Value 05/12/2022 13.8 07/02/2021 14.0 Hematocrit (%) Date Value 05/12/2022 41.2 07/02/2021 42.1 WBC (k/uL) Date Value 05/12/2022 5.88 07/02/2021 5.06 Platelet Count (k/uL) Date Value 05/12/2022 97 07/02/2021 57 DIAGNOSIS: (C90.00) Multiple myeloma not having achieved remission ([facility]) (primary encounter diagnosis) (Z94.81) 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[facility]) (D84.9) Immunodeficiency (HCC) (E11.9) Type 2 diabetes ([facility]) (N28.9) Renal insufficiency (I10) Essential hypertension (D61.818) Pancytopenia ([facility]) PAST MEDICAL HISTORY Diagnosis Date Allergic rhinitis Biceps rupture, proximal 04/09/2014 Bicipital tenosynovitis 11/01/2013 Chronic pain COVID-19 06/11/2020 positive test 06/13/20 Depression 09/18/2020 Continue home dose of lexapro Elevated blood protein elevated MGUS Generalized anxiety disorder Glaucoma Hypercholesteremia 09/17/2020 Hold Lipitor inpatient Hyperlipemia Hypertension Leukocytosis MRSA infection Multiple myeloma ([facility]) 09/17/2020 6 Cycles RVD (February 2020 through August 2020) in a [place] Multiple myeloma not having achieved remission ([facility]) 02/04/2020 Neuropathy 08/20/2020 Continue home Gabapentin Obesity Restless leg syndrome 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 Protocol(s): 3422 1C Preparative regimen: Melphalan Mobilization regimen: plerixafor & neupogenStem cell source: apheresis CD34 cell dose (x10e6/kg): 4.05 Date of transplant: 09/19/20 Type 2 diabetes ([facility]) 08/20/2020 Takes metformin, Lantus, victoza & Farxiga Sliding Scale inpatient & Lantus Plan: -Endo following, recs in dc instructions for home Type II or unspecified type diabetes mellitus without mention of complication, uncontrolled PAST SURGICAL HISTORY Procedure Laterality Date EXTENSIVE FINGER SURGERY Right FOOT/TOES SURGERY PROC UNLISTED Left hammer toes and bunions PALATOP CL PALATE ATTACHMENT PHARYNGEAL FLAP age 5 SHOULDER SURGERY HX Left tendon repair Social History Tobacco Use Smoking status: Former Packs/day: 1.00 Years: 40.00 Pack years: 40.00 Types: Cigarettes Passive exposure: Past Smokeless tobacco: Never Tobacco comments: 03/30/2018 Vaping Use Vaping Use: Never used Substance Use Topics Alcohol use: Yes Comment: occassional Drug use: Yes Types: Marijuana Comment: THC edibles, 3x a week FAMILY HISTORY Problem Relation Age of Onset Cancer Mother brain 76 y/o Heart disease Mother Hypertension Mother Diabetes Father Heart disease Father Hypertension Father Heart Attack Father Diabetes Sister other (atrial fib) Sister COPD Sister No Known Problems Sister other (polio) Maternal Grandfather Diabetes Paternal Grandmother No Known Problems Daughter Soha Nunn APRN.[facility] Hematology and Oncology Services Provided at: [place], [place] CC: Dr. Frankie Medellin I spent a total of 30 minutes on the date of the service which included preparing to see the patient, [id number] patient care, completing clinical documentation, obtaining and/or reviewing separately obtained history, performing a medically appropriate examination, counseling and educating the pat ient/family/caregiver, ordering medications, tests, or procedures, independently interpreting results (not separately reported), and communicating results to the patient/family/caregiver. documented in this encounterCleveland Clinic [facility]12-07-2022 Instructions* Patient Instructions* Vimal Crandall MD - 04/14/2022 1:56 PM EST Continue Revlimid 5 mg daily. Follow up in 4 weeks - CBC, CMP and myeloma profile labs. documented in this encounterCleveland Clinic [facility]12-07-2022 History of Present illness Narrative* Vimal Crandall MD - 04/14/2022 1:45 PM EST Images from the original note were not included. NAME: Jon Bauer CLINIC NO.: [id number] DATE OF SERVICE: April 14, 2022 (scott) Some elements in this clinic note that are critical to medical decision making have been carefully reviewed and included from a prior clinic note dated: March 17, 2022 (Raz) Additional Clinicians involved in Jon Bauer's care: Dr. Lomeli (PCP), Frankie Campbell CC: Multiple myeloma followup ASSESSMENT: This is a 71 yo man diagnosed with an IgG lambda monoclonal gammopathy in 2019 and was then noted to have rising M-spike and PET scan documented a sternal lesion. 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 ISS and R-ISS stage II disease. He had a partial response to induction therapy and has recovered following Autologous stem cell infusion. He is on schedule with his post transplant vaccinations. Mild thrombocytopenia - stable for now. Additional medical issues include: - Immunodeficiency following HDSCT and patient will continue Acyclovir and post- transplant immunizations per Infectious Disease protocol - Renal failure is improving and we will continue monitoring - Neuropathy is stable - Diabetes mellitus managed by PCP Initial M-Protein is 3.31 prior to Induction PLAN: Continue Revlimid 5 mg daily. Follow up in 4 weeks - CBC, CMP and myeloma profile labs. TREATMENT TO DATE: 4. 07/30/2021: Resumed Rev at 5mg daily due to thrombocytopenia. 3. 12/26/2020: Rx for Maintenance Rev 10mg daily 2. 09/19/2020: HDCT Auto transplant (D0). 1. 02/18/2020 - 08/25/2020: RVD HPI: Updated Visit, April 14, 2022: Labs stable. 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 No other major issues. Chronic limitations to duration of exercise. 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 Counts are stable. Updated Visit, February 17, 2022: Jon Bauer returns for follow-up and labs. He is still being treated for MRSA with Bactrim and aface wash. He has had oral thrush on and off for a couple of months. He remains on Revlimid 5 mg daily and is tolerating it well. He denies any significant side effects from the Revlimid. He denies fevers, chills, night sweats and signs/symptoms of infection. No bleeding or abnormal bruising. Overal l he is doing well with no new complaints today. No new issues, problems or concerns. Updated Visit, January 18, 2022: Infection in cheek - (MRSA) is resolving currently on Bactrim DS for a 30 day course. Will resume Revlimid 5 mg and if platelets drop below 35k will decrease to 2.5 mg daily. Currently platelets have recovered to 78k nd will resume treatment. Now has a scab on his right forearm and is seeing dermatology. Looks like a superficial burn with skin sloughing 2 friends have recently - just sad about that. Updated Visit, January 01, 2022: Jon returns and is quite uncomfortable. His platelets still low and abscesses have recurred. Blood sugar is high - can't get in to see Dr. Michael - going to the ER Leisa won several prizes rom baking at the fair and granddaughter won showing her pig. Updated Visit, December 18, 2021: Jon returns and his facial infection finally cleared up but required debridement and drainage. HadDalvance IV Thrush resolved Platelets still low Will hold Revlimid for 2 more weeks - still thromboctopenic - will see if clearance from Dalvance will allow him to resolve. Updated Visit, November 20, 2021: Returns today and retells his saga with sinus infection from last visit: Augmentin didn't help - required tessalon, prednisone and levaquin to get things improved. Then got thrush - now has communityacquired MRSA abscess on his face on Bactrim now. Otherwise doing well from myeloma standpoint. Updated Visit, October 23, 2021: Jon returns alone today and remains on Rev maintenance. Sinus fullness and productive cough will treat empirically. Otherwise continues to do well. Updated Visit, September 25, 2021: Jon Bauer returns for follow-up. He remains on Revlimid 5 mg daily and is tolerating it well. He denies any side effects from the Revlimid. He started his current cycle on September 08. He denies any unusual pain. He denies fevers, chills, night sweats and signs/symptoms of infection. He denies any abnormal bleeding or abnormal bruising. His skin is thin as he ages and tends to bleed easier due to that. His diarrhea is much improved. He remains on Metamucil. He offers no new complaints today. No new issues, problems or concerns. Updated Visit, August 28, 2021: Diarrhea associated with Metformin now improved significantly. His counts are fairly stable but platelets are a little low. Will continue treatment as is for now and consider holding the dose if he gets lower. Back on insulin for managing blood sugars. Updated Visit, July 30, 2021: Still has diarrhea biopsy results pending. Leisa is with him today. He is doing well overall. Will resume Revlimid at 5 mg daily. Platelets are at 100k. Updated Visit, July 16, 2021: Telephone only for 12 minutes Called Jon as requested and his counts were reviewed. His platelets are improving but still less than 100k. Unfortunately he still has daily diarrhea but is seeing Dr. Garay next week. We will plan to hold his Revilimid for a few weeks longer. Updated Visit, July 02, 2021: Platelets suppressed after having restarted revlimid 1 week ago - will ask him to stop. Still having diarrhea and is going to GI tomorrow M-spike continues to drop slowly. If unable to continue Rev, will change maintenance. Updated Visit, May 07, 2021: Will resume lexapro for depression. May be confusing ativan with lexapro No additional rash - Leisa is with him today. If it recurs, we can switch maintenance to Ixazomib or pomalidomide - defer to transplant team. Updated Visit, April 17, 2021: Walking better, neuropathy improving, fatigue resolving, appetite is improved. Only thing worse is restless legs in the evening. Getting his vaccination series. Labs stable. Rash is resolved. Updated Visit, January 28, 2021: Intermittent bowel issues but no significant problems. Both COVID-19 Vax Pfizer as of tomorrow Balance and activity levels are better - dizziness has resolved. recovereing from mild Upper respiratory viral infection M-Protein Concentration (gm/dL) Date Value 07/02/2021 0.36 Updated Visit, December 26, 2020: Jon returns today reporting a hospitalization for SBO with intractable nausea 12/16/2020. Managed conservatively and resolved. Proceed with vaccination schedule Start with COVID-19 vax. Occult Blood in stools - consider CT at next visit. Updated Visit, December 05, 2020: Occasional swelling in knees and ankles but is walking and getting more active. Still gets cold easily and has intermittent diarrhea but less than previous. Anemia is improved. Still has fatigue but is improving with continued activity. D100 s approximately 12/27/2020 and will need to start maintenance Revlimid beyond that time. He will need COVID Vax and others on schedule that he has. Updated Visit, November 13, 2020: Jon is 70 yo and underwent Autologous transplantMay 2020 was day of Autologous transplant and is doing well. We will continue monitoring his response and will anticipate starting maintenance therapy at the appropriate time. He had recent resolution of GI symptoms due to a prolonged course of Cipro- which once identified was stopped and symptoms resolved. 08/24/2020 his pretransplant testing revealed a 24-hour urine with 0.02 gm M spike. His serum M protein was 0.61, serum kappa light chains 15.3, serum lambda light chain 17.0, serum kappa/lambda ratio0.90 (normal 0.26-1.65), and his bone marrow examination from 08/19/2020 was 40% cellular with less than 5% plasma cells and normal cytogenetics. His pretransplant disease response was a OK. Transplant overview: Protocol(s): 3422 1C Preparative regimen: Melphalan Mobilization regimen: plerixafor & neupogen Stem cell source: apheresis CD34 cell dose (x10e6/kg): 4.05 Date of transplant: 09/19/20 Updated Visit, August 11, 2020: Jon is 69 years old and returns to resume treatment with Velcade plus Revlimid just prior to getting autologous transplant. He has recovered from Covid and is much more active and feels quite a bit better. Fatigue is resolved and he had a great week last week. His counts have recovered and he is safe to proceed. Updated Visit, July 11, 2020: Jon is 69 yo and ended up getting COVID-19 and we held treatment. He has now recovered from the acute effects and has also normalized his kidney function. We will resume treatment next week. Still fatigued, didn't end up in the hospital at least. Updated Visit, June 04, 2020: Jon is 69 yo and returns for ongoing treatment of MM with RVD. He is having difficulty with tolerance and complains of persisting diarrhea - will stop revlimid (he's still taking 25mg). He saw Dr. Campbell for transplant and we will get a 24 hour urine IEP with the next assessment. We will have a break in treatment and then start Rev at a lower dose as previously discussed with him. Updated Visit, May 19, 2020: Feel better but has burning in his stomach which we will try mylanta rather than Pepto-bismol. He is due to see BMT tomorrow virtually and otherwise, with the resolution of his symptoms from last week, he will resume treamtent as scheduled. He has responsive disease on RVD. Updated Visit, May 12, 2020: Jon is 69 yo and is being treated from IgG Lambda multiple myeloma with initial M-spike of 3.3 gm and small lytic lesions in both humeral heads and distal right femur. PET CT noted a lesion on the sternum. He is due for cycle 4 but feels lousy with respect to energy and persisting nausea. He has mild sensory neuropathy as well and is struggling with the decadron to manage his sugars. Updated Visit, April 14, 2020: Jon is 69 years old and returns for treatment for his newly diagnosed multiple myeloma currently on RVD. 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 Bone marrow biopsy in December 2019 revealed findings consistent with smoldering myeloma but with small lytic lesions in both humeral heads as well as right distal femur and an additional lesion noted on the sternumby PET/CT, we elected to treat him with 8-10 cycles of RVD. I discussed consideration of pulmonary transplant with him at his last visit and I will plan on referring him following his third cycle of treatment. He reports that he had issues with nausea and diarrhea, as well gas. Everything is settled down, but he is anxious about symptoms going forward. Updated visit, March 17, 2020: Jon is 69 years old and returns with his Leisa for treatment of newly diagnosed multiple myeloma for which he has been started on RVD. He was followed for a monoclonal gammopathy IgG lambda of3.3 g since November 2018. Biopsy in December 2019 demonstrated what appeared to be smoldering myeloma but he had small lytic lesions in both humeral heads as well as distal right femur. PET/CT showed an additional lesion in the sternum but did not find the femoral or humeral head lesions based on these findings we electively started him on initial treatment. I anticipate 8-10 cycles of RVD and he returns today for his second cycle. He tolerated his first cycle well however he has some unpredictable bouts of diarrhea small rash on his neck that is resolving as well as candidal mucositis that resolved with Diflucan. Overall he is tolerating treatment very well, has no neuropathy and is willing to proceed with additional treatment as planned. Updated Visit, February 08, 2020: Jon Bauer is a 69 year old male seen for a monoclonal gammopathy found on routine labs. The patient was found to have a monoclonal gammopathy of (IgG) 3.3 gm with lambda specificity noted in Dr. BALDWNI's notes from 11/29/2018. He had not yet had a bone marrow biopsy so performed 1 on December 17, 2019 and it appeared that he had at least a smoldering myeloma with small lytic lesions in both Humeral heads as well as the distal right femur. A PET/CT wich showed only a sternal lesion with uptake FDG with SUV 2.7 and no uptakein either femur or humeral heads. Findings are consistent with multiple myeloma and we will proceed with induction therapy. I sat with him and his Leisa and extensively reviewed the treatmtent plan as well as the risks and benefits. I anticipate 8-10 cycles of induction. I will discuss HCT with them at their next visit so as to not overwhelm them. He has mild neuropathy from poorly controlled diabetes and coronary artery calcification but otherwise has a well preserved performance status and could be appropriate despite being older than 65. RADIOGRAPHIC DATA: Reviewed on February 08, 2020 2. 02/01/2020 PET/CT: 1. NECK: No FDG avid neoplastic process. 2. CHEST: No FDG avid neoplastic process. 3. ABDOMEN/PELVIS: No FDG avid neoplastic process. 4. EXTREMITIES/SKELETON: * 1.2 cm mildly FDG-avid lytic lesion in the sternum with SUV max of 2.7, may represent a site of active myeloma. * No FDG avid destructive osseous lesions elsewhere. Specifically, no hypermetabolic lesions in humeral heads or femurs. 1. 06/08/2019 Bone Survey: Lytic lesions involving bilateral humeral heads and distal right femur PATHOLOGIC PROFILE/MOLECULAR DATA: Reviewed on 02/08/2020 1. 12/17/2019 bone marrow biopsy and aspirate: Bone marrow, aspirate smear and core biopsy, with clot section and peripheral blood: -Involved by plasma cell neoplasm with 5 to 10% plasma cells. -Normocellular bone marrow 20% with trilineage hematopoiesis. -Stainable iron present. -Comment-the patient has a history of IgG lambda monoclonal protein. The bone marrow shows involvement by a plasma cell neoplasm with 3% plasma cells in the aspirate smear and 5 to 10% plasma cells by immunohistochemistry. Final classification of plasma cell neoplasms require correlation with additional clinical laboratory and/or radiologic findings. FISH for plasma cell neoplasm: Findings demonstrated plasma cell population with trisomy 9, and gain of genetic material at the CCN D1 locus or trisomy 11. These findings are consistent with the presence of a plasma cell neoplasm and represent standard risk disease. Cytogenetics: Normal male karyotype 46, XY 20 REVIEW OF SYSTEMS Per HPI and otherwise negative by full review of organ systems. ECOG PERFORMANCE STATUS: 0 PHYSICAL EXAMINATION: Vitals: BP 147/81 Pulse 74 Temp (Src) 97.8 (Temporal) Resp 16 Ht 5' 11.496 (1.82m) Wt 246 lb 12.8 oz (111.9kg) SpO2 100% BMI 33.95 kg/(m^2). Body surface area is 2.38 meters squared. ECOG 0 Exam limited to gross visualization where appropriate due to COVID-19. Gen.: This is an age-appropriate patient in no acute distress. Head: Appears atraumatic with no visible lesions. Eyes: Pupils equally round and reactive to light, extraocular muscles are intact. Neck: Supple. Mouth: Mucous membranes appeared to be moist. Respiratory: Appears to be respiring comfortably. Neurologic: Nonfocal to gross visualization. Alert and oriented 3. Psychiatric: No evidence of inappropriate anxiety or depression. Skin: Visible areas of skin without rash, lesions, wounds or petechiae. ALLERGIES: ALLERGIES Allergen Reactions Oseltamivir Other: See Comments MEDICATIONS: lenalidomide (REVLIMID) 5 mg capsule TAKE 1 CAPSULE BY MOUTH 1 TIME DAILY. BASAGLAR KWIKPEN U-100 INSULIN 100 unit/mL (3 mL) INJECT TEN UNITS SUBCUTANEOUSLY ONCE DAILY nystatin (MYCOSTATIN) 100,000 unit/mL suspension TAKE 4 ML BY MOUTH swish in mouth for as long as possible BEFORE swallowing FOUR TIMES DAILY FOR 10 DAYS sulfamethoxazole-trimethoprim (BACTRIM DS,SEPTRA DS) 800-160 mg per tablet Take 1 tablet by mouth twice daily. VICTOZA 2-REGULO 0.6 mg/0.1 mL (18 mg/3 mL) Inject 1.8 mg subcutaneously. triamcinolone acetonide (KENALOG) 0.1 % ointment rOPINIRole (REQUIP) 2 mg tablet Take 1 tablet by mouth daily at bedtime. escitalopram oxalate (LEXAPRO) 10 mg tablet Take 1 tablet by mouth once daily. Cholecalciferol, Vitamin D3, (VITAMIN D) 25 mcg (1,000 unit) cap Take 2 capsules by mouth once daily. atorvastatin (LIPITOR) 10 mg tablet Take 10 mg by mouth once daily. cetirizine (ZYRTEC) 10 mg tablet Take 10 mg by mouth once daily. dapagliflozin (FARXIGA) 10 mg tablet Take 10 mg by mouth daily with breakfast. glipiZIDE 10 mg tablet Take 10 mg by mouth once daily. gabapentin (NEURONTIN) 100 mg capsule Take 1 capsule by mouth daily at bedtime for 30 days. LABORATORY VALUES: WBC (k/uL) Date Value 03/17/2022 3.48 (L) RBC (m/uL) Date Value 03/17/2022 4.23 Hemoglobin (g/dL) Date Value 03/17/2022 13.6 Hematocrit (%) Date Value 03/17/2022 40.0 MCV (fL) Date Value 03/17/2022 94.6 MCH (pg) Date Value 03/17/2022 32.2 MCHC (g/dL) Date Value 03/17/2022 34.0 RDW-CV (%) Date Value 03/17/2022 13.2 Platelet Count (k/uL) Date Value 03/17/2022 79 (L) MPV (fL) Date Value 03/17/2022 9.4 Glucose (mg/dL) Date Value 04/14/2022 348 (H) BUN (mg/dL) Date Value 04/14/2022 21 Creatinine (mg/dL) Date Value 04/14/2022 1.29 (H) Sodium (mmol/L) Date Value 04/14/2022 135 (L) Potassium (mmol/L) Date Value 04/14/2022 4.1 Chloride (mmol/L) Date Value 04/14/2022 100 CO2 (mmol/L) Date Value 04/14/2022 24 Protein, Total (g/dL) Date Value 04/14/2022 6.7 Albumin (g/dL) Date Value 04/14/2022 4.3 Calcium, Total (mg/dL) Date Value 04/14/2022 9.3 Alkaline Phosphatase (U/L) Date Value 04/14/2022 103 Bilirubin, Total (mg/dL) Date Value 04/14/2022 0.4 AST (U/L) Date Value 04/14/2022 53 (H) ALT (U/L) Date Value 04/14/2022 70 (H) Total Cholesterol, Nonfasting (mg/dL) Date Value 11/20/2021 142 Triglycerides, Nonfasting (mg/dL) Date Value 11/20/2021 456 (H) DIAGNOSIS: (Z94.81) 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[facility]) (primary encounter diagnosis) (C90.00) Multiple myeloma not having achieved remission ([facility]) (D84.9) Immunodeficiency (HCC) (E11.9) Type 2 diabetes ([facility]) (N28.9) Renal insufficiency PAST MEDICAL HISTORY Diagnosis Date Allergic rhinitis Biceps rupture, proximal 04/09/2014 Bicipital tenosynovitis 11/01/2013 Chronic pain COVID-19 06/11/2020 positive test 06/13/20 Depression 09/18/2020 Continue home dose of lexapro Elevated blood protein elevated MGUS Generalized anxiety disorder Glaucoma Hypercholesteremia 09/17/2020 Hold Lipitor inpatient Hyperlipemia Hypertension Leukocytosis MRSA infection Multiple myeloma ([facility]) 09/17/2020 6 Cycles RVD (February 2020 through August 2020) in a [place] Multiple myeloma not having achieved remission ([facility]) 02/04/2020 Neuropathy 08/20/2020 Continue home Gabapentin Obesity Restless leg syndrome 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 Protocol(s): 3422 1C Preparative regimen: Melphalan Mobilization regimen: plerixafor & neupogenStem cell source: apheresis CD34 cell dose (x10e6/kg): 4.05 Date of transplant: 09/19/20 Type 2 diabetes (HCC) 08/20/2020 Takes metformin, Lantus, victoza & Farxiga Sliding Scale inpatient & Lantus Plan: -Endo following, recs in dc instructions for home Type II or unspecified type diabetes mellitus without mention of complication, uncontrolled PAST SURGICAL HISTORY Procedure Laterality Date EXTENSIVE FINGER SURGERY Right FOOT/TOES SURGERY PROC UNLISTED Left hammer toes and bunions PALATOP CL PALATE ATTACHMENT PHARYNGEAL FLAP age 5 SHOULDER SURGERY HX Left tendon repair Social History Tobacco Use Smoking status: Former Packs/day: 1.00 Years: 40.00 Pack years: 40.00 Types: Cigarettes Passive exposure: Past Smokeless tobacco: Never Tobacco comments: 03/30/2018 Vaping Use Vaping Use: Never used Substance Use Topics Alcohol use: Yes Comment: occassional Drug use: Yes Types: Marijuana Comment: THC edibles, 3x a week FAMILY HISTORY Problem Relation Age of Onset Cancer Mother brain 76 y/o Heart disease Mother Hypertension Mother Diabetes Father Heart disease Father Hypertension Father Heart Attack Father Diabetes Sister other (atrial fib) Sister COPD Sister No Known Problems Sister other (polio) Maternal Grandfather Diabetes Paternal Grandmother No Known Problems Daughter I spent a total of 30 minutes on the date of the service which included preparing to see the patient, [id number] patient care, completing clinical documentation, obtaining and/or reviewing separately obtained history, performing a medically appropriate examination, ordering medications, tests, or procedures and independently interpreting results (not separately reported). Vimal Crandall MD, CPE Hematology and Oncology Services Provided at: [place], [place] CC: Dr. Frankie Medellin documented in this encounterC[facility] Instructions* Patient Instructions* Vimal Crandall MD - 03/17/2022 1:43 PM EST Continue Revlimid 5 mg daily. Follow up in 4 weeks - CBC, CMP and myeloma profile labs. Get 24 hour urine for UPIEP documented in this encounterC[facility]11-09-2022 History of Present illness Narrative* Vimal Crandall MD - 03/17/2022 1:26 PM EST Images from the original note were not included. NAME: Jon Bauer CLINIC NO.: [id number] DATE OF SERVICE: March 17, 2022 (Raz) Some elements in this clinic note that are critical to medical decision making have been carefully reviewed and included from a prior clinic note dated: February 17, 2022 (Haroon) Additional Clinicians involved in Jon Bauer's care: Dr. Lomeli (PCP), Frankie Campbell CC: Multiple myeloma followup ASSESSMENT: This is a 71 yo man diagnosed with an IgG lambda monoclonal gammopathy in 2019 and was then noted to have rising M-spike and PET scan documented a sternal lesion. 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 ISS and R-ISS stage II disease. He had a partial response to induction therapy and has recovered following Autologous stem cell infusion. He is on schedule with his post transplant vaccinations. Mild thrombocytopenia - stable for now. Additional medical issues include: - Immunodeficiency following HDSCT and patient will continue Acyclovir and post- transplant immunizations per Infectious Disease protocol - Renal failure is improving and we will continue monitoring - Neuropathy is stable - Diabetes mellitus managed by PCP Initial M-Protein is 3.31 prior to Induction PLAN: Continue Revlimid 5 mg daily. Follow up in 4 weeks - CBC, CMP and myeloma profile labs. Get 24 hour urine for UPIEP TREATMENT TO DATE: 4. 07/30/2021: Resumed Rev at 5mg daily due to thrombocytopenia. 3. 12/26/2020: Rx for Maintenance Rev 10mg daily 2. 09/19/2020: HDCT Auto transplant (D0). 1. 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 Counts are stable. Updated Visit, February 17, 2022: Jon Bauer returns for follow-up and labs. He is still being treated for MRSA with Bactrim and aface wash. He has had oral thrush on and off for a couple of months. He remains on Revlimid 5 mg daily and is tolerating it well. He denies any significant side effects from the Revlimid. He denies fevers, chills, night sweats and signs/symptoms of infection. No bleeding or abnormal bruising. Overal l he is doing well with no new complaints today. No new issues, problems or concerns. Updated Visit, January 18, 2022: Infection in cheek - (MRSA) is resolving currently on Bactrim DS for a 30 day course. Will resume Revlimid 5 mg and if platelets drop below 35k will decrease to 2.5 mg daily. Currently platelets have recovered to 78k nd will resume treatment. Now has a scab on his right forearm and is seeing dermatology. Looks like a superficial burn with skin sloughing 2 friends have recently - just sad about that. Updated Visit, January 01, 2022: Jon returns and is quite uncomfortable. His platelets still low and abscesses have recurred. Blood sugar is high - can't get in to see Dr. Michael - going to the ER Leisa won several prizes rom baking at the [employer] and granddaughter won showing her pig. Updated Visit, December 18, 2021: Jon returns and his facial infection finally cleared up but required debridement and drainage. HadDalvance IV Thrush resolved Platelets still low Will hold Revlimid for 2 more weeks - still thromboctopenic - will see if clearance from Dalvance will allow him to resolve. Updated Visit, November 20, 2021: Returns today and retells his saga with sinus infection from last visit: Augmentin didn't help - required tessalon, prednisone and levaquin to get things improved. Then got thrush - now has communityacquired MRSA abscess on his face on Bactrim now. Otherwise doing well from myeloma standpoint. Updated Visit, October 23, 2021: Jon returns alone today and remains on Rev maintenance. Sinus fullness and productive cough will treat empirically. Otherwise continues to do well. Updated Visit, September 25, 2021: Jon Bauer returns for follow-up. He remains on Revlimid 5 mg daily and is tolerating it well. He denies any side effects from the Revlimid. He started his current cycle on September 08. He denies any unusual pain. He denies fevers, chills, night sweats and signs/symptoms of infection. He denies any abnormal bleeding or abnormal bruising. His skin is thin as he ages and tends to bleed easier due to that. His diarrhea is much improved. He remains on Metamucil. He offers no new complaints today. No new issues, problems or concerns. Updated Visit, August 28, 2021: Diarrhea associated with Metformin now improved significantly. His counts are fairly stable but platelets are a little low. Will continue treatment as is for now and consider holding the dose if he gets lower. Back on insulin for managing blood sugars. Updated Visit, July 30, 2021: Still has diarrhea biopsy results pending. Leisa is with him today. He is doing well overall. Will resume Revlimid at 5 mg daily. Platelets are at 100k. Updated Visit, July 16, 2021: Telephone only for 12 minutes Called Jon as requested and his counts were reviewed. His platelets are improving but still less than 100k. Unfortunately he still has daily diarrhea but is seeing Dr. Garay next week. We will plan to hold his Revilimid for a few weeks longer. Updated Visit, July 02, 2021: Platelets suppressed after having restarted revlimid 1 week ago - will ask him to stop. Still having diarrhea and is going to GI tomorrow M-spike continues to drop slowly. If unable to continue Rev, will change maintenance. Updated Visit, May 07, 2021: Will resume lexapro for depression. May be confusing ativan with lexapro No additional rash - Leisa is with him today. If it recurs, we can switch maintenance to Ixazomib or pomalidomide - defer to transplant team. Updated Visit, April 17, 2021: Walking better, neuropathy improving, fatigue resolving, appetite is improved. Only thing worse is restless legs in the evening. Getting his vaccination series. Labs stable. Rash is resolved. Updated Visit, January 28, 2021: Intermittent bowel issues but no significant problems. Both COVID-19 Vax Pfizer as of tomorrow Balance and activity levels are better - dizziness has resolved. recovereing from mild Upper respiratory viral infection M-Protein Concentration (gm/dL) Date Value 07/02/2021 0.36 Updated Visit, December 26, 2020: Jon returns today reporting a hospitalization for SBO with intractable nausea 12/16/2020. Managed conservatively and resolved. Proceed with vaccination schedule Start with COVID-19 vax. Occult Blood in stools - consider CT at next visit. Updated Visit, December 05, 2020: Occasional swelling in knees and ankles but is walking and getting more active. Still gets cold easily and has intermittent diarrhea but less than previous. Anemia is improved. Still has fatigue but is improving with continued activity. D100 s approximately 12/27/2020 and will need to start maintenance Revlimid beyond that time. He will need COVID Vax and others on schedule that he has. Updated Visit, November 13, 2020: Jon is 70 yo and underwent Autologous transplantMay 2020 was day of Autologous transplant and is doing well. We will continue monitoring his response and will anticipate starting maintenance therapy at the appropriate time. He had recent resolution of GI symptoms due to a prolonged course of Cipro- which once identified was stopped and symptoms resolved. 08/24/2020 his pretransplant testing revealed a 24-hour urine with 0.02 gm M spike. His serum M protein was 0.61, serum kappa light chains 15.3, serum lambda light chain 17.0, serum kappa/lambda ratio0.90 (normal 0.26-1.65), and his bone marrow examination from 08/19/2020 was 40% cellular with less than 5% plasma cells and normal cytogenetics. His pretransplant disease response was a OK. Transplant overview: Protocol(s): 3422 1C Preparative regimen: Melphalan Mobilization regimen: plerixafor & neupogen Stem cell source: apheresis CD34 cell dose (x10e6/kg): 4.05 Date of transplant: 09/19/20 Updated Visit, August 11, 2020: Jon is 69 years old and returns to resume treatment with Velcade plus Revlimid just prior to getting autologous transplant. He has recovered from Covid and is much more active and feels quite a bit better. Fatigue is resolved and he had a great week last week. His counts have recovered and he is safe to proceed. Updated Visit, July 11, 2020: Jon is 69 yo and ended up getting COVID-19 and we held treatment. He has now recovered from the acute effects and has also normalized his kidney function. We will resume treatment next week. Still fatigued, didn't end up in the hospital at least. Updated Visit, June 04, 2020: Jon is 69 yo and returns for ongoing treatment of MM with RVD. He is having difficulty with tolerance and complains of persisting diarrhea - will stop revlimid (he's still taking 25mg). He saw Dr. Campbell for transplant and we will get a 24 hour urine IEP with the next assessment. We will have a break in treatment and then start Rev at a lower dose as previously discussed with him. Updated Visit, May 19, 2020: Feel better but has burning in his stomach which we will try mylanta rather than Pepto-bismol. He is due to see BMT tomorrow virtually and otherwise, with the resolution of his symptoms from last week, he will resume treamtent as scheduled. He has responsive disease on RVD. Updated Visit, May 12, 2020: Jon is 69 yo and is being treated from IgG Lambda multiple myeloma with initial M-spike of 3.3 gm and small lytic lesions in both humeral heads and distal right femur. PET CT noted a lesion on the sternum. He is due for cycle 4 but feels lousy with respect to energy and persisting nausea. He has mild sensory neuropathy as well and is struggling with the decadron to manage his sugars. Updated Visit, April 14, 2020: Jon is 69 years old and returns for treatment for his newly diagnosed multiple myeloma currently on RVD. 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 Bone marrow biopsy in December 2019 revealed findings consistent with smoldering myeloma but with small lytic lesions in both humeral heads as well as right distal femur and an additional lesion noted on the sternumby PET/CT, we elected to treat him with 8-10 cycles of RVD. I discussed consideration of pulmonary transplant with him at his last visit and I will plan on referring him following his third cycle of treatment. He reports that he had issues with nausea and diarrhea, as well gas. Everything is settled down, but he is anxious about symptoms going forward. Updated visit, March 17, 2020: Jon is 69 years old and returns with his Leisa for treatment of newly diagnosed multiple myeloma for which he has been started on RVD. He was followed for a monoclonal gammopathy IgG lambda of3.3 g since November 2018. Biopsy in December 2019 demonstrated what appeared to be smoldering myeloma but he had small lytic lesions in both humeral heads as well as distal right femur. PET/CT showed an additional lesion in the sternum but did not find the femoral or humeral head lesions based on these findings we electively started him on initial treatment. I anticipate 8-10 cycles of RVD and he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 Date Value 01/18/2022 32.2 MCHC (g/dL) Date Value 01/18/2022 34.4 RDW-CV (%) Date Value 01/18/2022 14.7 Platelet Count (k/uL) Date Value 01/18/2022 78 (L) MPV (fL) Date Value 01/18/2022 9.1 Glucose (mg/dL) Date Value 01/01/2022 520 (H) BUN (mg/dL) Date Value 01/01/2022 23 Creatinine (mg/dL) Date Value 01/01/2022 1.09 Sodium (mmol/L) Date Value 01/01/2022 139 Potassium (mmol/L) Date Value 01/01/2022 4.4 Chloride (mmol/L) Date Value 01/01/2022 104 CO2 (mmol/L) Date Value 01/01/2022 24 Protein, Total (g/dL) Date Value 01/01/2022 6.5 Albumin (g/dL) Date Value 01/01/2022 4.2 Calcium, Total (mg/dL) Date Value 01/01/2022 9.5 Alkaline Phosphatase (U/L) Date Value 01/01/2022 115 (H) Bilirubin, Total (mg/dL) Date Value 01/01/2022 0.5 AST (U/L) Date Value 01/01/2022 37 ALT (U/L) Date Value 01/01/2022 53 Total Cholesterol, Nonfasting (mg/dL) Date Value 11/20/2021 142 Triglycerides, Nonfasting (mg/dL) Date Value 11/20/2021 456 (H) M-Protein Concentration Date Value 12/18/2021 0.33 g/dL 11/20/2021 0.29 g/dL 09/25/2021 0.31 g/dL 08/28/2021 0.35 g/dL 07/30/2021 0.33 g/dL 07/02/2021 0.36 gm/dL 06/04/2021 0.31 gm/dL 04/17/2021 0.35 gm/dL 02/26/2021 0.37 gm/dL 12/26/2020 0.62 gm/dL DIAGNOSIS: (C90.00) Multiple myeloma not having achieved remission ([facility]) (primary encounter diagnosis) Plan: B2 MICROGLOBULIN B, CBC + DIFF, COMP METABOLIC PANEL, LD LACTATE DEHYDRO, PHOSPHORUS INORGANIC, PROTEIN ELECTROPHORESIS SERUM W/INTERP, MONOCLONAL PROTEIN, SERUM (BLOOD), URIC ACID BLOOD, CALCIUM IONIZED BLOOD, KAPPA/ORTIZ,FREE,SER PAST MEDICAL HISTORY Diagnosis Date Allergic rhinitis Biceps rupture, proximal 04/09/2014 Bicipital tenosynovitis 11/01/2013 Chronic pain COVID-19 06/11/2020 positive test 06/13/20 Depression 09/18/2020 Continue home dose of lexapro Elevated blood protein elevated MGUS Generalized anxiety disorder Glaucoma Hypercholesteremia 09/17/2020 Hold Lipitor inpatient Hyperlipemia Hypertension Leukocytosis MRSA infection Multiple myeloma ([facility]) 09/17/2020 6 Cycles RVD (February 2020 through August 2020) in a [place] Multiple myeloma not having achieved remission ([facility]) 02/04/2020 Neuropathy 08/20/2020 Continue home Gabapentin Obesity Restless leg syndrome 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 Protocol(s): 3422 1C Preparative regimen: Melphalan Mobilization regimen: plerixafor & neupogenStem cell source: apheresis CD34 cell dose (x10e6/kg): 4.05 Date of transplant: 09/19/20 Type 2 diabetes ([facility]) 08/20/2020 Takes metformin, Lantus, victoza & Farxiga Sliding Scale inpatient & Lantus Plan: -Endo following, recs in dc instructions for home Type II or unspecified type diabetes mellitus without mention of complication, uncontrolled PAST SURGICAL HISTORY Procedure Laterality Date EXTENSIVE FINGER SURGERY Right FOOT/TOES SURGERY PROC UNLISTED Left hammer toes and bunions PALATOP CL PALATE ATTACHMENT PHARYNGEAL FLAP age 5 SHOULDER SURGERY HX Left tendon repair Social History Tobacco Use Smoking status: Former Packs/day: 1.00 Years: 40.00 Pack years: 40.00 Types: Cigarettes Passive exposure: Past Smokeless tobacco: Never Tobacco comments: 03/30/2018 Vaping Use Vaping Use: Never used Substance Use Topics Alcohol use: Yes Comment: occassional Drug use: Yes Types: Marijuana Comment: THC edibles, 3x a week FAMILY HISTORY Problem Relation Age of Onset Cancer Mother brain 76 y/o Heart disease Mother Hypertension Mother Diabetes Father Heart disease Father Hypertension Father Heart Attack Father Diabetes Sister other (atrial fib) Sister COPD Sister No Known Problems Sister other (polio) Maternal Grandfather Diabetes Paternal Grandmother No Known Problems Daughter I spent a total of 30 minutes on the date of the service which included preparing to see the patient, [id number] patient care, completing clinical documentation, obtaining and/or reviewing separately obtained history, performing a medically appropriate examination, and ordering medications, tests, or procedures. Vimal Crandall MD, CPE Hematology and Oncology Services Provided at: [place], [place] CC: Dr. Frankie Medellin documented in this encounterC[facility] Miscellaneous Notes* Telephone Encounter - Arin Small RPh - 01/12/2022 11:50 AM EDT Ambulatory Pharmacy Prior Authorization Note Provider Intervention Required?: No- Pharmacy completed on your behalf. Drug: revlimid 5 mg Cover My Meds Manning: paper PA from [facility] faxed 01/12/22 Determination: Approved Prior Authorization/Case #: NA Prior Authorization Expiration: 01/12/23 Time to PA Submission in CMM: 15 min Time to PA Determination in CMM: Same day Additional Information: renewal authorization For questions relating to this submission, please contact [facility] at [phone] documented in this encounterC[facility]2022 Evaluation note* Encounter Date Diagnosis Assessment Notes Treatment Notes Treatment Clinical Notes Dec, Abscess of face (ICD-10 - L02.01) Patient has no active ongoing findings suggestive of a bacterial infection. He has been on Bactrim since weekend and overall draining of this facial swelling likely helped by itself. He does have induration and but no fluctuance and I am not sure if there is an underlying cyst that exist that keeps getting infected as this is the second occurrence. Feel he should follow with dermatology as he may benefit from cyst removal if they feel warranted after infection has subsided. [place] Other 08-26-2022 Instructions* Patient Instructions* Vimal Crandall MD - 01/01/2022 2:31 PM EDT Hold Revlimid for 2 more weeks to allow platelet recovery. Allow for wound healing on face RTC in 2 weeks - cbc, cmp and myeloma profile documented in this encounterCleveland Clinic [facility]08-26-2022 History of Present illness Narrative* Vimal Crandall MD - 01/01/2022 2:25 PM EDT Images from the original note were not included. NAME: Jon Bauer CLINIC NO.: [id number] DATE OF SERVICE: January 01, 2022 Some elements in this clinic note that are critical to medical decision making have been carefully reviewed and included from a prior clinic note dated: December 18, 2021 Additional Clinicians involved in Jon Bauer's care: Dr. Lomeli (PCP), Frankie Campbell CC: Multiple myeloma followup ASSESSMENT: This is a 71 yo man diagnosed with an IgG lambda monoclonal gammopathy in 2019 and was then noted to have rising M-spike and PET scan documented a sternal lesion. 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 ISS and R-ISS stage II disease. He had a partial response to induction therapy and has recovered following Autologous stem cell infusion. He is on schedule with his post transplant vaccinations. Mild thrombocytopenia - stable for now. Additional medical issues include: - Immunodeficiency following HDSCT and patient will continue Acyclovir and post- transplant immunizations per Infectious Disease protocol - Renal failure is improving and we will continue monitoring - Neuropathy is stable - Diabetes mellitus managed by PCP Initial M-Protein is 3.31 prior to Induction PLAN: Hold Revlimid for 2 more weeks to allow platelet recovery. Allow for wound healing on face RTC in 2 weeks - cbc, cmp and myeloma profile TREATMENT TO DATE: 4. 07/30/2021: Resumed Rev at 5mg daily due to thrombocytopenia. 3. 12/26/2020: Rx for Maintenance Rev 10mg daily 2. 09/19/2020: HDCT Auto transplant (D0). 1. 02/18/2020 - 08/25/2020: RVD HPI: Updated Visit, January 01, 2022: Jon returns and is quite uncomfortable. His platelets still low and abscesses have recurred. Blood sugar is high - can't get in to see Dr. Michael - going to the ER Leisa won several prizes rom baking at the fair and granddaughter won showing her pig. Updated Visit, December 18, 2021: Jon returns and his facial infection finally cleared up but required debridement and drainage. HadDalvance IV Thrush resolved Platelets still low Will hold Revlimid for 2 more weeks - still thromboctopenic - will see if clearance from Dalvance will allow him to resolve. Updated Visit, November 20, 2021: Returns today and retells his saga with sinus infection from last visit: Augmentin didn't help - required tessalon, prednisone and levaquin to get things improved. Then got thrush - now has communityacquired MRSA abscess on his face on Bactrim now. Otherwise doing well from myeloma standpoint. Updated Visit, October 23, 2021: Jon returns alone today and remains on Rev maintenance. Sinus fullness and productive cough will treat empirically. Otherwise continues to do well. Updated Visit, September 25, 2021: Jon Bauer returns for follow-up. He remains on Revlimid 5 mg daily and is tolerating it well. He denies any side effects from the Revlimid. He started his current cycle on September 08. He denies any unusual pain. He denies fevers, chills, night sweats and signs/symptoms of infection. He denies any abnormal bleeding or abnormal bruising. His skin is thin as he ages and tends to bleed easier due to that. His diarrhea is much improved. He remains on Metamucil. He offers no new complaints today. No new issues, problems or concerns. Updated Visit, August 28, 2021: Diarrhea associated with Metformin now improved significantly. His counts are fairly stable but platelets are a little low. Will continue treatment as is for now and consider holding the dose if he gets lower. Back on insulin for managing blood sugars. Updated Visit, July 30, 2021: Still has diarrhea biopsy results pending. Leisa is with him today. He is doing well overall. Will resume Revlimid at 5 mg daily. Platelets are at 100k. Updated Visit, July 16, 2021: Telephone only for 12 minutes Called Jon as requested and his counts were reviewed. His platelets are improving but still less than 100k. Unfortunately he still has daily diarrhea but is seeing Dr. Garay next week. We will plan to hold his Revilimid for a few weeks longer. Updated Visit, July 02, 2021: Platelets suppressed after having restarted revlimid 1 week ago - will ask him to stop. Still having diarrhea and is going to GI tomorrow M-spike continues to drop slowly. If unable to continue Rev, will change maintenance. Updated Visit, May 07, 2021: Will resume lexapro for depression. May be confusing ativan with lexapro No additional rash - Leisa is with him today. If it recurs, we can switch maintenance to Ixazomib or pomalidomide - defer to transplant team. Updated Visit, April 17, 2021: Walking better, neuropathy improving, fatigue resolving, appetite is improved. Only thing worse is restless legs in the evening. Getting his vaccination series. Labs stable. Rash is resolved. Updated Visit, January 28, 2021: Intermittent bowel issues but no significant problems. Both COVID-19 Vax Pfizer as of tomorrow Balance and activity levels are better - dizziness has resolved. recovereing from mild Upper respiratory viral infection M-Protein Concentration (gm/dL) Date Value 07/02/2021 0.36 Updated Visit, December 26, 2020: Jon returns today reporting a hospitalization for SBO with intractable nausea 12/16/2020. Managed conservatively and resolved. Proceed with vaccination schedule Start with COVID-19 vax. Occult Blood in stools - consider CT at next visit. Updated Visit, December 05, 2020: Occasional swelling in knees and ankles but is walking and getting more active. Still gets cold easily and has intermittent diarrhea but less than previous. Anemia is improved. Still has fatigue but is improving with continued activity. D100 s approximately 12/27/2020 and will need to start maintenance Revlimid beyond that time. He will need COVID Vax and others on schedule that he has. Updated Visit, November 13, 2020: Jon is 70 yo and underwent Autologous transplantMay 2020 was day of Autologous transplant and is doing well. We will continue monitoring his response and will anticipate starting maintenance therapy at the appropriate time. He had recent resolution of GI symptoms due to a prolonged course of Cipro- which once identified was stopped and symptoms resolved. 08/24/2020 his pretransplant testing revealed a 24-hour urine with 0.02 gm M spike. His serum M protein was 0.61, serum kappa light chains 15.3, serum lambda light chain 17.0, serum kappa/lambda ratio0.90 (normal 0.26-1.65), and his bone marrow examination from 08/19/2020 was 40% cellular with less than 5% plasma cells and normal cytogenetics. His pretransplant disease response was a OK. Transplant overview: Protocol(s): 3422 1C Preparative regimen: Melphalan Mobilization regimen: plerixafor & neupogen Stem cell source: apheresis CD34 cell dose (x10e6/kg): 4.05 Date of transplant: 09/19/20 Updated Visit, August 11, 2020: Jon is 69 years old and returns to resume treatment with Velcade plus Revlimid just prior to getting autologous transplant. He has recovered from Covid and is much more active and feels quite a bit better. Fatigue is resolved and he had a great week last week. His counts have recovered and he is safe to proceed. Updated Visit, July 11, 2020: Jon is 69 yo and ended up getting COVID-19 and we held treatment. He has now recovered from the acute effects and has also normalized his kidney function. We will resume treatment next week. Still fatigued, didn't end up in the hospital at least. Updated Visit, June 04, 2020: Jon is 69 yo and returns for ongoing treatment of MM with RVD. He is having difficulty with tolerance and complains of persisting diarrhea - will stop revlimid (he's still taking 25mg). He saw Dr. Campbell for transplant and we will get a 24 hour urine IEP with the next assessment. We will have a break in treatment and then start Rev at a lower dose as previously discussed with him. Updated Visit, May 19, 2020: Feel better but has burning in his stomach which we will try mylanta rather than Pepto-bismol. He is due to see BMT tomorrow virtually and otherwise, with the resolution of his symptoms from last week, he will resume treamtent as scheduled. He has responsive disease on RVD. Updated Visit, May 12, 2020: Jon is 69 yo and is being treated from IgG Lambda multiple myeloma with initial M-spike of 3.3 gm and small lytic lesions in both humeral heads and distal right femur. PET CT noted a lesion on the sternum. He is due for cycle 4 but feels lousy with respect to energy and persisting nausea. He has mild sensory neuropathy as well and is struggling with the decadron to manage his sugars. Updated Visit, April 14, 2020: Jon is 69 years old and returns for treatment for his newly diagnosed multiple myeloma currently on RVD. 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 Bone marrow biopsy in December 2019 revealed findings consistent with smoldering myeloma but with small lytic lesions in both humeral heads as well as right distal femur and an additional lesion noted on the sternumby PET/CT, we elected to treat him with 8-10 cycles of RVD. I discussed consideration of pulmonary transplant with him at his last visit and I will plan on referring him following his third cycle of treatment. He reports that he had issues with nausea and diarrhea, as well gas. Everything is settled down, but he is anxious about symptoms going forward. Updated visit, March 17, 2020: Jon is 69 years old and returns with his Leisa for treatment of newly diagnosed multiple myeloma for which he has been started on RVD. He was followed for a monoclonal gammopathy IgG lambda of3.3 g since November 2018. Biopsy in December 2019 demonstrated what appeared to be smoldering myeloma but he had small lytic lesions in both humeral heads as well as distal right femur. PET/CT showed an additional lesion in the sternum but did not find the femoral or humeral head lesions based on these findings we electively started him on initial treatment. I anticipate 8-10 cycles of RVD and he returns today for his second cycle. He tolerated his first cycle well however he has some unpredictable bouts of diarrhea small rash on his neck that is resolving as well as candidal mucositis that resolved with Diflucan. Overall he is tolerating treatment very well, has no neuropathy and is willing to proceed with additional treatment as planned. Updated Visit, February 08, 2020: Jon Bauer is a 69 year old male seen for a monoclonal gammopathy found on routine labs. The patient was found to have a monoclonal gammopathy of (IgG) 3.3 gm with lambda specificity noted in Dr. BALDWIN's notes from 11/29/2018. He had not yet had a bone marrow biopsy so performed 1 on December 17, 2019 and it appeared that he had at least a smoldering myeloma with small lytic lesions in both Humeral heads as well as the distal right femur. A PET/CT wich showed only a sternal lesion with uptake FDG with SUV 2.7 and no uptakein either femur or humeral heads. Findings are consistent with multiple myeloma and we will proceed with induction therapy. I sat with him and his Leisa and extensively reviewed the treatmtent plan as well as the risks and benefits. I anticipate 8-10 cycles of induction. I will discuss HCT with them at their next visit so as to not overwhelm them. He has mild neuropathy from poorly controlled diabetes and coronary artery calcification but otherwise has a well preserved performance status and could be appropriate despite being older than 65. RADIOGRAPHIC DATA: Reviewed on February 08, 2020 2. 02/01/2020 PET/CT: 1. NECK: No FDG avid neoplastic process. 2. CHEST: No FDG avid neoplastic process. 3. ABDOMEN/PELVIS: No FDG avid neoplastic process. 4. EXTREMITIES/SKELETON: * 1.2 cm mildly FDG-avid lytic lesion in the sternum with SUV max of 2.7, may represent a site of active myeloma. * No FDG avid destructive osseous lesions elsewhere. Specifically, no hypermetabolic lesions in humeral heads or femurs. 1. 06/08/2019 Bone Survey: Lytic lesions involving bilateral humeral heads and distal right femur PATHOLOGIC PROFILE/MOLECULAR DATA: Reviewed on 02/08/2020 1. 12/17/2019 bone marrow biopsy and aspirate: Bone marrow, aspirate smear and core biopsy, with clot section and peripheral blood: -Involved by plasma cell neoplasm with 5 to 10% plasma cells. -Normocellular bone marrow 20% with trilineage hematopoiesis. -Stainable iron present. -Comment-the patient has a history of IgG lambda monoclonal protein. The bone marrow shows involvement by a plasma cell neoplasm with 3% plasma cells in the aspirate smear and 5 to 10% plasma cells by immunohistochemistry. Final classification of plasma cell neoplasms require correlation with additional clinical laboratory and/or radiologic findings. FISH for plasma cell neoplasm: Findings demonstrated plasma cell population with trisomy 9, [id number] and gain of genetic material at the CCN D1 locus or trisomy 11. These findings are consistent with the presence of a plasma cell neoplasm and represent standard risk disease. Cytogenetics: Normal male karyotype 46, XY 20 REVIEW OF SYSTEMS Per HPI and otherwise negative by full review of organ systems. ECOG PERFORMANCE STATUS: 0 PHYSICAL EXAMINATION: Vitals: BP 147/77 Pulse 84 Temp (Src) 97.7 (Temporal) Resp 16 Ht 5' 11.496 (1.82m) Wt 242 lb 12.8 oz (110.1kg) SpO2 95% BMI 33.40 kg/(m^2). Body surface area is 2.36 meters squared. ECOG 0 Exam limited to gross visualization where appropriate due to COVID-19. Gen.: This is an age-appropriate patient in no acute distress. Head: Appears atraumatic with no visible lesions. Notable enlarged pustules on left latter day and cheek - improved. Eyes: Pupils equally round and reactive to light, extraocular muscles are intact. Neck: Supple. Mouth: Mucous membranes appeared to be moist. Respiratory: Appears to be respiring comfortably. Neurologic: Nonfocal to gross visualization. Alert and oriented 3. Psychiatric: No evidence of inappropriate anxiety or depression. Skin: Visible areas of skin without rash, lesions, wounds or petechiae. ALLERGIES: ALLERGIES No Known Allergies MEDICATIONS: dalbavancin HCl (DALVANCE INTRAVENOUS) Inject intravenously. Patient was given this IV for MRSA lenalidomide (REVLIMID) 5 mg capsule TAKE 1 CAPSULE BY MOUTH 1 TIME DAILY. nystatin (MYCOSTATIN) 100,000 unit/mL suspension TAKE 4 ML BY MOUTH swish in mouth for as long as possible BEFORE swallowing FOUR TIMES DAILY FOR 10 DAYS benzonatate (TESSALON PERLE) 100 mg capsule Take 100 mg by mouth three times daily as needed. predniSONE (DELTASONE) 10 mg tablet TAKE 3 TABLETS BY MOUTH DAILY FOR 3 DAYS, then TAKE 2 TABLETS DAILY FOR 3 DAYS, then TAKE 1 TABLET DAILY FOR 3 DAYS levoFLOXacin (LEVAQUIN) 750 mg tablet TAKE 1 TABLET BY MOUTH DAILY FOR 10 DAYS sulfamethoxazole-trimethoprim (BACTRIM DS,SEPTRA DS) 800-160 mg per tablet Take 1 tablet by mouth twice daily. VICTOZA 2-REGULO 0.6 mg/0.1 mL (18 mg/3 mL) INJECT 0.2 ml (1.2mg) SUBCUTANEOUSLY ONCE DAILY diphenoxylate-atropine (LOMOTIL) 2.5-0.025 mg per tablet Take 1 tablet by mouth four times daily asneeded for diarrhea for up to 15 days. triamcinolone acetonide (KENALOG) 0.1 % ointment ondansetron (ZOFRAN) 8 mg tablet traZODone (DESYREL) 100 mg tablet potassium chloride ER (K-DUR, KLOR-CON) 20 mEq tablet Take 1 tablet by mouth twice daily. simethicone, chewable (MYLICON) 80 mg chewable tablet Take 1 tablet by mouth every 6 hours as needed. aspirin, enteric coated (ASPIR-LOW) 81 mg EC tablet Take 1 tablet by mouth once daily. Please hold until told to resume by your oncologist gabapentin (NEURONTIN) 100 mg capsule Take 1 capsule by mouth daily at bedtime for 30 days. rOPINIRole (REQUIP) 2 mg tablet Take 1 tablet by mouth daily at bedtime. prochlorperazine (COMPAZINE) 10 mg tablet Take 1 tablet by mouth every 4 hours as needed. FOR NAUSEA escitalopram oxalate (LEXAPRO) 10 mg tablet Take 1 tablet by mouth once daily. Cholecalciferol, Vitamin D3, (VITAMIN D) 25 mcg (1,000 unit) cap Take 2 capsules by mouth once daily. sodium chloride 0.9 %, flush, (BD POSIFLUSH) syringe Inject 10 mL intravenously once daily. BMT Patient. Flush each lumen daily. loperamide HCl (IMODIUM ORAL) Take by mouth. atorvastatin (LIPITOR) 10 mg tablet Take 10 mg by mouth once daily. cetirizine (ZYRTEC) 10 mg tablet Take 10 mg by mouth once daily. dapagliflozin (FARXIGA) 10 mg tablet Take 10 mg by mouth daily with breakfast. traMADol (ULTRAM) 50 mg tablet Take 50 mg by mouth every 6 hours as needed. glipiZIDE 10 mg tablet Take 10 mg by mouth once daily. LABORATORY VALUES: WBC (k/uL) Date Value 01/01/2022 5.06 RBC (m/uL) Date Value 01/01/2022 4.29 Hemoglobin (g/dL) Date Value 01/01/2022 13.5 Hematocrit (%) Date Value 01/01/2022 39.6 MCV (fL) Date Value 01/01/2022 92.3 MCH (pg) Date Value 01/01/2022 31.5 MCHC (g/dL) Date Value 01/01/2022 34.1 RDW-CV (%) Date Value 01/01/2022 14.6 Platelet Count (k/uL) Date Value 01/01/2022 73 (L) MPV (fL) Date Value 01/01/2022 9.8 Glucose (mg/dL) Date Value 01/01/2022 520 (H) BUN (mg/dL) Date Value 01/01/2022 23 Creatinine (mg/dL) Date Value 01/01/2022 1.09 Sodium (mmol/L) Date Value 01/01/2022 139 Potassium (mmol/L) Date Value 01/01/2022 4.4 Chloride (mmol/L) Date Value 01/01/2022 104 CO2 (mmol/L) Date Value 01/01/2022 24 Protein, Total (g/dL) Date Value 01/01/2022 6.5 Albumin (g/dL) Date Value 01/01/2022 4.2 Calcium, Total (mg/dL) Date Value 01/01/2022 9.5 Alkaline Phosphatase (U/L) Date Value 01/01/2022 115 (H) Bilirubin, Total (mg/dL) Date Value 01/01/2022 0.5 AST (U/L) Date Value 01/01/2022 37 ALT (U/L) Date Value 01/01/2022 53 Total Cholesterol, Nonfasting (mg/dL) Date Value 11/20/2021 142 Triglycerides, Nonfasting (mg/dL) Date Value 11/20/2021 456 (H) M-Protein Concentration Date Value 12/18/2021 0.33 g/dL 11/20/2021 0.29 g/dL 09/25/2021 0.31 g/dL 08/28/2021 0.35 g/dL 07/30/2021 0.33 g/dL 07/02/2021 0.36 gm/dL 06/04/2021 0.31 gm/dL 04/17/2021 0.35 gm/dL 02/26/2021 0.37 gm/dL 12/26/2020 0.62 gm/dL DIAGNOSIS: (C90.00) Multiple myeloma not having achieved remission (HCC) (primary encounter diagnosis) Plan: B2 MICROGLOBULIN B, CBC + DIFF, COMP METABOLIC PANEL, LD LACTATE DEHYDRO, PHOSPHORUS INORGANIC, PROTEIN ELECTROPHORESIS SERUM W/INTERP, MONOCLONAL PROTEIN, SERUM (BLOOD), URIC ACID BLOOD, CALCIUM IONIZED BLOOD, KAPPA/ORTIZ,FREE,SER (Z94.81) 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[facility]) (D84.9) Immunodeficiency ([facility]) (E11.9) Type 2 diabetes ([facility]) PAST MEDICAL HISTORY Diagnosis Date Allergic rhinitis Biceps rupture, proximal 04/09/2014 Bicipital tenosynovitis 11/01/2013 Chronic pain COVID-19 06/11/2020 positive test 06/13/20 Depression 09/18/2020 Continue home dose of lexapro Elevated blood protein elevated MGUS Generalized anxiety disorder Glaucoma Hypercholesteremia 09/17/2020 Hold Lipitor inpatient Hyperlipemia Hypertension Leukocytosis MRSA infection Multiple myeloma ([facility]) 09/17/2020 6 Cycles RVD (February 2020 through August 2020) in a [place] Multiple myeloma not having achieved remission ([facility]) 02/04/2020 Neuropathy 08/20/2020 Continue home Gabapentin Obesity Restless leg syndrome 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 Protocol(s): 3422 1C Preparative regimen: Melphalan Mobilization regimen: plerixafor & neupogenStem cell source: apheresis CD34 cell dose (x10e6/kg): 4.05 Date of transplant: 09/19/20 Type 2 diabetes (HCC) 08/20/2020 Takes metformin, Lantus, victoza & Farxiga Sliding Scale inpatient & Lantus Plan: -Endo following, recs in dc instructions for home Type II or unspecified type diabetes mellitus without mention of complication, uncontrolled PAST SURGICAL HISTORY Procedure Laterality Date EXTENSIVE FINGER SURGERY Right FOOT/TOES SURGERY PROC UNLISTED Left hammer toes and bunions PALATOP CL PALATE ATTACHMENT PHARYNGEAL FLAP age 5 SHOULDER SURGERY HX Left tendon repair Social History Tobacco Use Smoking status: Former Packs/day: 1.00 Years: 40.00 Pack years: 40.00 Types: Cigarettes Passive exposure: Past Smokeless tobacco: Never Tobacco comments: 03/30/2018 Vaping Use Vaping Use: Never used Substance Use Topics Alcohol use: Yes Comment: occassional Drug use: Yes Types: Marijuana Comment: THC edibles, 3x a week FAMILY HISTORY Problem Relation Age of Onset Cancer Mother brain 76 y/o Heart disease Mother Hypertension Mother Diabetes Father Heart disease Father Hypertension Father Heart Attack Father Diabetes Sister other (atrial fib) Sister COPD Sister No Known Problems Sister other (polio) Maternal Grandfather Diabetes Paternal Grandmother No Known Problems Daughter I spent a total of 25 minutes on the date of the service which included preparing to see the patient, [id number] patient care, completing clinical documentation, obtaining and/or reviewing separately obtained history, performing a medically appropriate examination, and ordering medications, tests, or procedures. Vimal Crandall MD, CPE Hematology and Oncology Services Provided at: [place], [place] CC: Dr. Frankie Medellin documented in this encounterC[facility]08-[facility] Miscellaneous Notes* Telephone Encounter - Arcelia Thomas RN - 01/01/2022 2:21 PM EDT [facility] Client Services calls w/ critical results: Glucose - 520 Pt identifiers and results read back for verification. Arcelia Thomas RN documented in this encounterC[facility]08-26-2022 Nurse Note* Mariaelena Wiggins MA - 01/01/2022 1:50 PM EDT Patient states that he may go to the ER after appointment due to his pain in his face (MRSA), he cannot see Dr. Michael for another week. He does not feel well today. Mariaelena Wiggins MA documented in this encounterC[facility]08-12-2022 Instructions* Patient Instructions* Vimal Crandall MD - 12/18/2021 2:27 PM EDT 1. Hold Revlimid for 2 more weeks to allow platelet recovery. 2. RTC in 2 weeks - cbc, cmp only documented in this encounterCleveland Clinic [facility]08-12-2022 History of Present illness Narrative* Vimal Crandall MD - 12/18/2021 2:17 PM EDT Images from the original note were not included. NAME: Jon Bauer CLINIC NO.: [id number] DATE OF SERVICE: December 18, 2021 Some elements in this clinic note that are critical to medical decision making have been carefully reviewed and included from a prior clinic note dated: November 20, 2021 Additional Clinicians involved in Jon Bauer's care: Dr. Lomeli (PCP), Frankie Campbell CC: Multiple myeloma followup ASSESSMENT: This is a 71 yo man diagnosed with an IgG lambda monoclonal gammopathy in 2019 and was then noted to have rising M-spike and PET scan documented a sternal lesion. 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 ISS and R-ISS stage II disease. He had a partial response to induction therapy and has recovered following Autologous stem cell infusion. He is on schedule with his post transplant vaccinations. Mild thrombocytopenia - stable for now. Additional medical issues include: - Immunodeficiency following HDSCT and patient will continue Acyclovir and post- transplant immunizations per Infectious Disease protocol - Renal failure is improving and we will continue monitoring - Neuropathy is stable - Diabetes mellitus managed by PCP Initial M-Protein is 3.31 prior to Induction PLAN: 1. Hold Revlimid for 2 more weeks to allow platelet recovery. 2. RTC in 2 weeks - cbc, cmp only TREATMENT TO DATE: 4. 07/30/2021: Resumed Rev at 5mg daily due to thrombocytopenia. 3. 12/26/2020: Rx for Maintenance Rev 10mg daily 2. 09/19/2020: HDCT Auto transplant (D0). 1. 02/18/2020 - 08/25/2020: RVD HPI: Updated Visit, December 18, 2021: Jon returns and his facial infection finally cleared up but required debridement and drainage. HadDalvance IV Thrush resolved Platelets still low Will hold Revlimid for 2 more weeks - still thromboctopenic - will see if clearance from Dalvance will allow him to resolve. Updated Visit, November 20, 2021: Returns today and retells his saga with sinus infection from last visit: Augmentin didn't help - required tessalon, prednisone and levaquin to get things improved. Then got thrush - now has communityacquired MRSA abscess on his face on Bactrim now. Otherwise doing well from myeloma standpoint. Updated Visit, October 23, 2021: Jon returns alone today and remains on Rev maintenance. Sinus fullness and productive cough will treat empirically. Otherwise continues to do well. Updated Visit, September 25, 2021: Jon Bauer returns for follow-up. He remains on Revlimid 5 mg daily and is tolerating it well. He denies any side effects from the Revlimid. He started his current cycle on September 08. He denies any unusual pain. He denies fevers, chills, night sweats and signs/symptoms of infection. He denies any abnormal bleeding or abnormal bruising. His skin is thin as he ages and tends to bleed easier due to that. His diarrhea is much improved. He remains on Metamucil. He offers no new complaints today. No new issues, problems or concerns. Updated Visit, August 28, 2021: Diarrhea associated with Metformin now improved significantly. His counts are fairly stable but platelets are a little low. Will continue treatment as is for now and consider holding the dose if he gets lower. Back on insulin for managing blood sugars. Updated Visit, July 30, 2021: Still has diarrhea biopsy results pending. Leisa is with him today. He is doing well overall. Will resume Revlimid at 5 mg daily. Platelets are at 100k. Updated Visit, July 16, 2021: Telephone only for 12 minutes Called Jon as requested and his counts were reviewed. His platelets are improving but still less than 100k. Unfortunately he still has daily diarrhea but is seeing Dr. Garay next week. We will plan to hold his Revilimid for a few weeks longer. Updated Visit, July 02, 2021: Platelets suppressed after having restarted revlimid 1 week ago - will ask him to stop. Still having diarrhea and is going to GI tomorrow M-spike continues to drop slowly. If unable to continue Rev, will change maintenance. Updated Visit, May 07, 2021: Will resume lexapro for depression. May be confusing ativan with lexapro No additional rash - Leisa is with him today. If it recurs, we can switch maintenance to Ixazomib or pomalidomide - defer to transplant team. Updated Visit, April 17, 2021: Walking better, neuropathy improving, fatigue resolving, appetite is improved. Only thing worse is restless legs in the evening. Getting his vaccination series. Labs stable. Rash is resolved. Updated Visit, January 28, 2021: Intermittent bowel issues but no significant problems. Both COVID-19 Vax Pfizer as of tomorrow Balance and activity levels are better - dizziness has resolved. recovereing from mild Upper respiratory viral infection M-Protein Concentration (gm/dL) Date Value 07/02/2021 0.36 Updated Visit, December 26, 2020: Jon returns today reporting a hospitalization for SBO with intractable nausea 12/16/2020. Managed conservatively and resolved. Proceed with vaccination schedule Start with COVID-19 vax. Occult Blood in stools - consider CT at next visit. Updated Visit, December 05, 2020: Occasional swelling in knees and ankles but is walking and getting more active. Still gets cold easily and has intermittent diarrhea but less than previous. Anemia is improved. Still has fatigue but is improving with continued activity. D100 s approximately 12/27/2020 and will need to start maintenance Revlimid beyond that time. He will need COVID Vax and others on schedule that he has. Updated Visit, November 13, 2020: Jon is 70 yo and underwent Autologous transplantMay 2020 was day of Autologous transplant and is doing well. We will continue monitoring his response and will anticipate starting maintenance therapy at the appropriate time. He had recent resolution of GI symptoms due to a prolonged course of Cipro- which once identified was stopped and symptoms resolved. 08/24/2020 his pretransplant testing revealed a 24-hour urine with 0.02 gm M spike. His serum M protein was 0.61, serum kappa light chains 15.3, serum lambda light chain 17.0, serum kappa/lambda ratio0.90 (normal 0.26-1.65), and his bone marrow examination from 08/19/2020 was 40% cellular with less than 5% plasma cells and normal cytogenetics. His pretransplant disease response was a OK. Transplant overview: Protocol(s): 3422 1C Preparative regimen: Melphalan Mobilization regimen: plerixafor & neupogen Stem cell source: apheresis CD34 cell dose (x10e6/kg): 4.05 Date of transplant: 09/19/20 Updated Visit, August 11, 2020: Jon is 69 years old and returns to resume treatment with Velcade plus Revlimid just prior to getting autologous transplant. He has recovered from Covid and is much more active and feels quite a bit better. Fatigue is resolved and he had a great week last week. His counts have recovered and he is safe to proceed. Updated Visit, July 11, 2020: Jon is 69 yo and ended up getting COVID-19 and we held treatment. He has now recovered from the acute effects and has also normalized his kidney function. We will resume treatment next week. Still fatigued, didn't end up in the hospital at least. Updated Visit, June 04, 2020: Jon is 69 yo and returns for ongoing treatment of MM with RVD. He is having difficulty with tolerance and complains of persisting diarrhea - will stop revlimid (he's still taking 25mg). He saw Dr. Campbell for transplant and we will get a 24 hour urine IEP with the next assessment. We will have a break in treatment and then start Rev at a lower dose as previously discussed with him. Updated Visit, May 19, 2020: Feel better but has burning in his stomach which we will try mylanta rather than Pepto-bismol. He is due to see BMT tomorrow virtually and otherwise, with the resolution of his symptoms from last week, he will resume treamtent as scheduled. He has responsive disease on RVD. Updated Visit, May 12, 2020: Jon is 69 yo and is being treated from IgG Lambda multiple myeloma with initial M-spike of 3.3 gm and small lytic lesions in both humeral heads and distal right femur. PET CT noted a lesion on the sternum. He is due for cycle 4 but feels lousy with respect to energy and persisting nausea. He has mild sensory neuropathy as well and is struggling with the decadron to manage his sugars. Updated Visit, April 14, 2020: Jon is 69 years old and returns for treatment for his newly diagnosed multiple myeloma currently on RVD. 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 Bone marrow biopsy in December 2019 revealed findings consistent with smoldering myeloma but with small lytic lesions in both humeral heads as well as right distal femur and an additional lesion noted on the sternumby PET/CT, we elected to treat him with 8-10 cycles of RVD. I discussed consideration of pulmonary transplant with him at his last visit and I will plan on referring him following his third cycle of treatment. He reports that he had issues with nausea and diarrhea, as well gas. Everything is settled down, but he is anxious about symptoms going forward. Updated visit, March 17, 2020: Jon is 69 years old and returns with his Leisa for treatment of newly diagnosed multiple myeloma for which he has been started on RVD. He was followed for a monoclonal gammopathy IgG lambda of3.3 g since November 2018. Biopsy in December 2019 demonstrated what appeared to be smoldering myeloma but he had small lytic lesions in both humeral heads as well as distal right femur. PET/CT showed an additional lesion in the sternum but did not find the femoral or humeral head lesions based on these findings we electively started him on initial treatment. I anticipate 8-10 cycles of RVD and he returns today for his second cycle. He tolerated his first cycle well however he has some unpredictable bouts of diarrhea small rash on his neck that is resolving as well as candidal mucositis that resolved with Diflucan. Overall he is tolerating treatment very well, has no neuropathy and is willing to proceed with additional treatment as planned. Updated Visit, February 08, 2020: Jon Bauer is a 69 year old male seen for a monoclonal gammopathy found on routine labs. The patient was found to have a monoclonal gammopathy of (IgG) 3.3 gm with lambda specificity noted in Dr. BALDWIN's notes from 11/29/2018. He had not yet had a bone marrow biopsy so performed 1 on December 17, 2019 and it appeared that he had at least a smoldering myeloma with small lytic lesions in both Humeral heads as well as the distal right femur. A PET/CT wich showed only a sternal lesion with uptake FDG with SUV 2.7 and no uptakein either femur or humeral heads. Findings are consistent with multiple myeloma and we will proceed with induction therapy. I sat with him and his Leisa and extensively reviewed the treatmtent plan as well as the risks and benefits. I anticipate 8-10 cycles of induction. I will discuss HCT with them at their next visit so as to not overwhelm them. He has mild neuropathy from poorly controlled diabetes and coronary artery calcification but otherwise has a well preserved performance status and could be appropriate despite being older than 65. RADIOGRAPHIC DATA: Reviewed on February 08, 2020 2. 02/01/2020 PET/CT: 1. NECK: No FDG avid neoplastic process. 2. CHEST: No FDG avid neoplastic process. 3. ABDOMEN/PELVIS: No FDG avid neoplastic process. 4. EXTREMITIES/SKELETON: * 1.2 cm mildly FDG-avid lytic lesion in the sternum with SUV max of 2.7, may represent a site of active myeloma. * No FDG avid destructive osseous lesions elsewhere. Specifically, no hypermetabolic lesions in humeral heads or femurs. 1. 06/08/2019 Bone Survey: Lytic lesions involving bilateral humeral heads and distal right femur PATHOLOGIC PROFILE/MOLECULAR DATA: Reviewed on 02/08/2020 1. 12/17/2019 bone marrow biopsy and aspirate: Bone marrow, aspirate smear and core biopsy, with clot section and peripheral blood: -Involved by plasma cell neoplasm with 5 to 10% plasma cells. -Normocellular bone marrow 20% with trilineage hematopoiesis. -Stainable iron present. -Comment-the patient has a history of IgG lambda monoclonal protein. The bone marrow shows involvement by a plasma cell neoplasm with 3% plasma cells in the aspirate smear and 5 to 10% plasma cells by immunohistochemistry. Final classification of plasma cell neoplasms require correlation with additional clinical laboratory and/or radiologic findings. FISH for plasma cell neoplasm: Findings demonstrated plasma cell population with trisomy 9, [id number] and gain of genetic material at the CCN D1 locus or trisomy 11. These findings are consistent with the presence of a plasma cell neoplasm and represent standard risk disease. Cytogenetics: Normal male karyotype 46, XY 20 REVIEW OF SYSTEMS Per HPI and otherwise negative by full review of organ systems. ECOG PERFORMANCE STATUS: 0 PHYSICAL EXAMINATION: Vitals: BP 136/70 Pulse 85 Temp (Src) 97.8 (Temporal) Resp 16 Ht 5' 11.496 (1.82m) Wt 241 lb 6.4 oz (109.5kg) SpO2 96% BMI 33.20 kg/(m^2). Body surface area is 2.35 meters squared. ECOG 0 Exam limited to gross visualization where appropriate due to COVID-19. Gen.: This is an age-appropriate patient in no acute distress. Head: Appears atraumatic with no visible lesions. Notable enlarged pustules on left latter day and cheek - improved. Eyes: Pupils equally round and reactive to light, extraocular muscles are intact. Neck: Supple. Mouth: Mucous membranes appeared to be moist. Respiratory: Appears to be respiring comfortably. Neurologic: Nonfocal to gross visualization. Alert and oriented 3. Psychiatric: No evidence of inappropriate anxiety or depression. Skin: Visible areas of skin without rash, lesions, wounds or petechiae. ALLERGIES: ALLERGIES No Known Allergies MEDICATIONS: dalbavancin HCl (DALVANCE INTRAVENOUS) Inject intravenously. Patient was given this IV for MRSA nystatin (MYCOSTATIN) 100,000 unit/mL suspension TAKE 4 ML BY MOUTH swish in mouth for as long as possible BEFORE swallowing FOUR TIMES DAILY FOR 10 DAYS benzonatate (TESSALON PERLE) 100 mg capsule Take 100 mg by mouth three times daily as needed. predniSONE (DELTASONE) 10 mg tablet TAKE 3 TABLETS BY MOUTH DAILY FOR 3 DAYS, then TAKE 2 TABLETS DAILY FOR 3 DAYS, then TAKE 1 TABLET DAILY FOR 3 DAYS levoFLOXacin (LEVAQUIN) 750 mg tablet TAKE 1 TABLET BY MOUTH DAILY FOR 10 DAYS sulfamethoxazole-trimethoprim (BACTRIM DS,SEPTRA DS) 800-160 mg per tablet Take 1 tablet by mouth twice daily. VICTOZA 2-REGULO 0.6 mg/0.1 mL (18 mg/3 mL) INJECT 0.2 ml (1.2mg) SUBCUTANEOUSLY ONCE DAILY diphenoxylate-atropine (LOMOTIL) 2.5-0.025 mg per tablet Take 1 tablet by mouth four times daily asneeded for diarrhea for up to 15 days. triamcinolone acetonide (KENALOG) 0.1 % ointment ondansetron (ZOFRAN) 8 mg tablet traZODone (DESYREL) 100 mg tablet potassium chloride ER (K-DUR, KLOR-CON) 20 mEq tablet Take 1 tablet by mouth twice daily. simethicone, chewable (MYLICON) 80 mg chewable tablet Take 1 tablet by mouth every 6 hours as needed. aspirin, enteric coated (ASPIR-LOW) 81 mg EC tablet Take 1 tablet by mouth once daily. Please hold until told to resume by your oncologist gabapentin (NEURONTIN) 100 mg capsule Take 1 capsule by mouth daily at bedtime for 30 days. rOPINIRole (REQUIP) 2 mg tablet Take 1 tablet by mouth daily at bedtime. prochlorperazine (COMPAZINE) 10 mg tablet Take 1 tablet by mouth every 4 hours as needed. FOR NAUSEA escitalopram oxalate (LEXAPRO) 10 mg tablet Take 1 tablet by mouth once daily. Cholecalciferol, Vitamin D3, (VITAMIN D) 25 mcg (1,000 unit) cap Take 2 capsules by mouth once daily. sodium chloride 0.9 %, flush, (BD POSIFLUSH) syringe Inject 10 mL intravenously once daily. BMT Patient. Flush each lumen daily. loperamide HCl (IMODIUM ORAL) Take by mouth. atorvastatin (LIPITOR) 10 mg tablet Take 10 mg by mouth once daily. cetirizine (ZYRTEC) 10 mg tablet Take 10 mg by mouth once daily. dapagliflozin (FARXIGA) 10 mg tablet Take 10 mg by mouth daily with breakfast. traMADol (ULTRAM) 50 mg tablet Take 50 mg by mouth every 6 hours as needed. glipiZIDE 10 mg tablet Take 10 mg by mouth once daily. lenalidomide (REVLIMID) 5 mg capsule TAKE 1 CAPSULE BY MOUTH 1 TIME DAILY. (Patient not taking: Reported on 12/18/2021) LABORATORY VALUES: WBC (k/uL) Date Value 12/18/2021 5.46 RBC (m/uL) Date Value 12/18/2021 4.51 Hemoglobin (g/dL) Date Value 12/18/2021 14.2 Hematocrit (%) Date Value 12/18/2021 41.7 MCV (fL) Date Value 12/18/2021 92.5 MCH (pg) Date Value 12/18/2021 31.5 MCHC (g/dL) Date Value 12/18/2021 34.1 RDW-CV (%) Date Value 12/18/2021 14.0 Platelet Count (k/uL) Date Value 12/18/2021 84 (L) MPV (fL) Date Value 12/18/2021 9.8 Glucose (mg/dL) Date Value 12/18/2021 321 (H) BUN (mg/dL) Date Value 12/18/2021 21 Creatinine (mg/dL) Date Value 12/18/2021 1.12 Sodium (mmol/L) Date Value 12/18/2021 138 Potassium (mmol/L) Date Value 12/18/2021 4.2 Chloride (mmol/L) Date Value 12/18/2021 101 CO2 (mmol/L) Date Value 12/18/2021 25 Protein, Total (g/dL) Date Value 12/18/2021 6.8 Albumin (g/dL) Date Value 12/18/2021 4.3 Calcium, Total (mg/dL) Date Value 12/18/2021 9.8 Alkaline Phosphatase (U/L) Date Value 12/18/2021 123 (H) Bilirubin, Total (mg/dL) Date Value 12/18/2021 0.5 AST (U/L) Date Value 12/18/2021 39 ALT (U/L) Date Value 12/18/2021 49 Total Cholesterol, Nonfasting (mg/dL) Date Value 11/20/2021 142 Triglycerides, Nonfasting (mg/dL) Date Value 11/20/2021 456 (H) M-Protein Concentration Date Value 12/18/2021 0.33 g/dL 11/20/2021 0.29 g/dL 09/25/2021 0.31 g/dL 08/28/2021 0.35 g/dL 07/30/2021 0.33 g/dL 07/02/2021 0.36 gm/dL 06/04/2021 0.31 gm/dL 04/17/2021 0.35 gm/dL 02/26/2021 0.37 gm/dL 12/26/2020 0.62 gm/dL DIAGNOSIS: (C90.00) Multiple myeloma not having achieved remission ([facility]) (primary encounter diagnosis) Plan: CBC + DIFF, COMP METABOLIC PANEL (Z94.81) S/P autologous bone marrow transplantation ([facility]) Plan: CBC + DIFF, COMP METABOLIC PANEL (D84.9) Immunodeficiency ([facility]) Plan: CBC + DIFF, COMP METABOLIC PANEL (N28.9) Renal insufficiency Plan: CBC + DIFF, COMP METABOLIC PANEL PAST MEDICAL HISTORY Diagnosis Date Allergic rhinitis Biceps rupture, proximal 04/09/2014 Bicipital tenosynovitis 11/01/2013 Chronic pain COVID-19 06/11/2020 positive test 06/13/20 Depression 09/18/2020 Continue home dose of lexapro Elevated blood protein elevated MGUS Generalized anxiety disorder Glaucoma Hypercholesteremia 09/17/2020 Hold Lipitor inpatient Hyperlipemia Hypertension Leukocytosis MRSA infection Multiple myeloma ([facility]) 09/17/2020 6 Cycles RVD (February 2020 through August 2020) in a [place] Multiple myeloma not having achieved remission ([facility]) 02/04/2020 Neuropathy 08/20/2020 Continue home Gabapentin Obesity Restless leg syndrome 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 Protocol(s): 3422 1C Preparative regimen: Melphalan Mobilization regimen: plerixafor & neupogenStem cell source: apheresis CD34 cell dose (x10e6/kg): 4.05 Date of transplant: 09/19/20 Type 2 diabetes ([facility]) 08/20/2020 Takes metformin, Lantus, victoza & Farxiga Sliding Scale inpatient & Lantus Plan: -Endo following, recs in dc instructions for home Type II or unspecified type diabetes mellitus without mention of complication, uncontrolled PAST SURGICAL HISTORY Procedure Laterality Date EXTENSIVE FINGER SURGERY Right FOOT/TOES SURGERY PROC UNLISTED Left hammer toes and bunions PALATOP CL PALATE ATTACHMENT PHARYNGEAL FLAP age 5 SHOULDER SURGERY HX Left tendon repair Social History Tobacco Use Smoking status: Former Packs/day: 1.00 Years: 40.00 Pack years: 40.00 Types: Cigarettes Passive exposure: Past Smokeless tobacco: Never Tobacco comments: 03/30/2018 Vaping Use Vaping Use: Never used Substance Use Topics Alcohol use: Yes Comment: occassional Drug use: Yes Types: Marijuana Comment: THC edibles, 3x a week FAMILY HISTORY Problem Relation Age of Onset Cancer Mother brain 76 y/o Heart disease Mother Hypertension Mother Diabetes Father Heart disease Father Hypertension Father Heart Attack Father Diabetes Sister other (atrial fib) Sister COPD Sister No Known Problems Sister other (polio) Maternal Grandfather Diabetes Paternal Grandmother No Known Problems Daughter I spent a total of 30 minutes on the date of the service which included preparing to see the patient, [id number] patient care, completing clinical documentation, obtaining and/or reviewing separately obtained history, performing a medically appropriate examination, and ordering medications, tests, or procedures. Vimal Crandall MD, CPE Hematology and Oncology Services Provided at: [place], [place] CC: Dr. Frankie Medellin documented in this encounterC[facility] Nurse Note* Mariaelena Wiggins MA - 12/18/2021 1:57 PM EDT Patient states he recently had MRSA was treated at [facility]. Dalvance IV therapy.Mariaelena Wiggins MA documented in this encounterC[facility]07-28-2022 Miscellaneous Notes* Telephone Encounter - Elodia Vegas RN - 12/03/2021 4:15 PM EDT Pt calls inquiring as to whether we have ID doctors here in the office. Explained to pt that there are local infectious disease doctors as well as some through [facility], but that we do not have them here in our office. Pt states he wasn't sure and wanted to check. Elodia Vegas RN documented in this encounterC[facility]07-21-2022 Miscellaneous Notes* Telephone Encounter - Arcelia Thomas RN - 11/26/2021 10:32 AM EDT Pt notified and verbalizes understanding. Arcelia Thomas RN * Telephone Encounter - Vimal Crandall MD - 11/26/2021 10:27 AM EDT Ok that's too bad. Agree with extending the hold. * Telephone Encounter - Arcelia Thomas RN - 11/26/2021 10:06 AM EDT Pt reports the abscess got significantly worse after his visit w/ you last week. Saw his PCP on Tuesday who opened and drained the areas. Per pt, some of the areas continue to drain while others are beginning to scab. Pt taking Bactrim as prescribed per his PCP. States he will be contacting his PCPnext week for follow up. Pt will remain off of the Revlimid until instructed otherwise per our office. Arcelia Thomas RN * Telephone Encounter - Arcelia Thomas RN - 11/26/2021 8:32 AM EDT Call placed to pt. No answer. Message left requesting call back. Arcelia Thomas RN * Telephone Encounter - Arcelia Thomas RN - 11/20/2021 10:51 AM EDT Images from the original note were not included. MD Arcelia Swartz RN Mi Bowers - can you please call him next Tuesday to check on his facial MRSA abscesses? I have his Revon hold for 1 week. documented in this encounterC[facility]07-15-2022 Miscellaneous Notes* Telephone Encounter - Arin KatinaomariLOS - 11/20/2021 3:05 PM EDT Used start date of 11/30/21 as he is holding for 1 week d/tMRSA documented in this encounterC[facility]07-15-2022 History of Present illness Narrative* Vimal Crandall MD - 11/20/2021 10:15 AM EDT Images from the original note were not included. NAME: Jon Bauer CLINIC NO.: [id number] DATE OF SERVICE: November 20, 2021 Some elements in this clinic note that are critical to medical decision making have been carefully reviewed and included from a prior clinic note dated: October 23, 2021 Additional Clinicians involved in Jon Bauer's care: Dr. Lomeli (PCP), Frankie Campbell CC: Multiple myeloma followup ASSESSMENT: This is a 71 yo man diagnosed with an IgG lambda monoclonal gammopathy in 2019 and was then noted to have rising M-spike and PET scan documented a sternal lesion. 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 ISS and R-ISS stage II disease. He had a partial response to induction therapy and has recovered following Autologous stem cell infusion. He is on schedule with his post transplant vaccinations. Mild thrombocytopenia - stable for now. Additional medical issues include: - Immunodeficiency following HDSCT and patient will continue Acyclovir and post- transplant immunizations per Infectious Disease protocol - Renal failure is improving and we will continue monitoring - Neuropathy is stable - Diabetes mellitus managed by PCP Initial M-Protein is 3.31 prior to Induction PLAN: 1. Hold Revlimid for 1 week to allow for MRSA to resolve. Then resume at 5 mg daily. 2. Phone call in 1 week -Heena Thomas to call to check on improvement. 3. RTC in 4 weeks Labs same day - submit 24 hour urine - send collection jug today please TREATMENT TO DATE: 4. 07/30/2021: Resumed Rev at 5mg daily due to thrombocytopenia. 3. 12/26/2020: Rx for Maintenance Rev 10mg daily 2. 09/19/2020: HDCT Auto transplant (D0). 1. 02/18/2020 - 08/25/2020: RVD HPI: Updated Visit, November 20, 2021: Returns today and retells his saga with sinus infection from last visit: Augmentin didn't help - required tessalon, prednisone and levaquin to get things improved. Then got thrush - now has communityacquired MRSA abscess on his face on Bactrim now. Otherwise doing well from myeloma standpoint. Updated Visit, October 23, 2021: Jon returns alone today and remains on Rev maintenance. Sinus fullness and productive cough will treat empirically. Otherwise continues to do well. Updated Visit, September 25, 2021: Jon Bauer returns for follow-up. He remains on Revlimid 5 mg daily and is tolerating it well. He denies any side effects from the Revlimid. He started his current cycle on September 08. He denies any unusual pain. He denies fevers, chills, night sweats and signs/symptoms of infection. He denies any abnormal bleeding or abnormal bruising. His skin is thin as he ages and tends to bleed easier due to that. His diarrhea is much improved. He remains on Metamucil. He offers no new complaints today. No new issues, problems or concerns. Updated Visit, August 28, 2021: Diarrhea associated with Metformin now improved significantly. His counts are fairly stable but platelets are a little low. Will continue treatment as is for now and consider holding the dose if he gets lower. Back on insulin for managing blood sugars. Updated Visit, July 30, 2021: Still has diarrhea biopsy results pending. Leisa is with him today. He is doing well overall. Will resume Revlimid at 5 mg daily. Platelets are at 100k. Updated Visit, July 16, 2021: Telephone only for 12 minutes Called Jon as requested and his counts were reviewed. His platelets are improving but still less than 100k. Unfortunately he still has daily diarrhea but is seeing Dr. Garay next week. We will plan to hold his Revilimid for a few weeks longer. Updated Visit, July 02, 2021: Platelets suppressed after having restarted revlimid 1 week ago - will ask him to stop. Still having diarrhea and is going to GI tomorrow M-spike continues to drop slowly. If unable to continue Rev, will change maintenance. Updated Visit, May 07, 2021: Will resume lexapro for depression. May be confusing ativan with lexapro No additional rash - Leisa is with him today. If it recurs, we can switch maintenance to Ixazomib or pomalidomide - defer to transplant team. Updated Visit, April 17, 2021: Walking better, neuropathy improving, fatigue resolving, appetite is improved. Only thing worse is restless legs in the evening. Getting his vaccination series. Labs stable. Rash is resolved. Updated Visit, January 28, 2021: Intermittent bowel issues but no significant problems. Both COVID-19 Vax Pfizer as of tomorrow Balance and activity levels are better - dizziness has resolved. recovereing from mild Upper respiratory viral infection M-Protein Concentration (gm/dL) Date Value 07/02/2021 0.36 Updated Visit, December 26, 2020: Jon returns today reporting a hospitalization for SBO with intractable nausea 12/16/2020. Managed conservatively and resolved. Proceed with vaccination schedule Start with COVID-19 vax. Occult Blood in stools - consider CT at next visit. Updated Visit, December 05, 2020: Occasional swelling in knees and ankles but is walking and getting more active. Still gets cold easily and has intermittent diarrhea but less than previous. Anemia is improved. Still has fatigue but is improving with continued activity. D100 s approximately 12/27/2020 and will need to start maintenance Revlimid beyond that time. He will need COVID Vax and others on schedule that he has. Updated Visit, November 13, 2020: Jon is 70 yo and underwent Autologous transplantMay 2020 was day of Autologous transplant and is doing well. We will continue monitoring his response and will anticipate starting maintenance therapy at the appropriate time. He had recent resolution of GI symptoms due to a prolonged course of Cipro- which once identified was stopped and symptoms resolved. 08/24/2020 his pretransplant testing revealed a 24-hour urine with 0.02 gm M spike. His serum M protein was 0.61, serum kappa light chains 15.3, serum lambda light chain 17.0, serum kappa/lambda ratio0.90 (normal 0.26 1.65), and his bone marrow examination from 08/19/2020 was 40% cellular with less than 5% plasma cells and normal cytogenetics. His pretransplant disease response was a OK. Transplant overview: Protocol(s): 3422 1C Preparative regimen: Melphalan Mobilization regimen: plerixafor & neupogen Stem cell source: apheresis CD34 cell dose (x10e6/kg): 4.05 Date of transplant: 09/19/20 Updated Visit, August 11, 2020: Jon is 69 years old and returns to resume treatment with Velcade plus Revlimid just prior to getting autologous transplant. He has recovered from Covid and is much more active and feels quite a bit better. Fatigue is resolved and he had a great week last week. His counts have recovered and he is safe to proceed. Updated Visit, July 11, 2020: Jon is 69 yo and ended up getting COVID-19 and we held treatment. He has now recovered from the acute effects and has also normalized his kidney function. We will resume treatment next week. Still fatigued, didn't end up in the hospital at least. Updated Visit, June 04, 2020: Jon is 69 yo and returns for ongoing treatment of MM with RVD. He is having difficulty with tolerance and complains of persisting diarrhea - will stop revlimid (he's still taking 25mg). He saw Dr. Campbell for transplant and we will get a 24 hour urine IEP with the next assessment. We will have a break in treatment and then start Rev at a lower dose as previously discussed with him. Updated Visit, May 19, 2020: Feel better but has burning in his stomach which we will try mylanta rather than Pepto-bismol. He is due to see BMT tomorrow virtually and otherwise, with the resolution of his symptoms from last week, he will resume treamtent as scheduled. He has responsive disease on RVD. Updated Visit, May 12, 2020: Jon is 69 yo and is being treated from IgG Lambda multiple myeloma with initial M-spike of 3.3 gm and small lytic lesions in both humeral heads and distal right femur. PET CT noted a lesion on the sternum. He is due for cycle 4 but feels lousy with respect to energy and persisting nausea. He has mild sensory neuropathy as well and is struggling with the decadron to manage his sugars. Updated Visit, April 14, 2020: Jon is 69 years old and returns for treatment for his newly diagnosed multiple myeloma currently on RVD. 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 Bone marrow biopsy in December 2019 revealed findings consistent with smoldering myeloma but with small lytic lesions in both humeral heads as well as right distal femur and an additional lesion noted on the sternumby PET/CT, we elected to treat him with 8-10 cycles of RVD. I discussed consideration of pulmonary transplant with him at his last visit and I will plan on referring him following his third cycle of treatment. He reports that he had issues with nausea and diarrhea, as well gas. Everything is settled down, but he is anxious about symptoms going forward. Updated visit, March 17, 2020: Jon is 69 years old and returns with his Leisa for treatment of newly diagnosed multiple myeloma for which he has been started on RVD. He was followed for a monoclonal gammopathy IgG lambda of3.3 g since November 2018. Biopsy in December 2019 demonstrated what appeared to be smoldering myeloma but he had small lytic lesions in both humeral heads as well as distal right femur. PET/CT showed an additional lesion in the sternum but did not find the femoral or humeral head lesions based on these findings we electively started him on initial treatment. I anticipate 8-10 cycles of RVD and he returns today for his second cycle. He tolerated his first cycle well however he has some unpredictable bouts of diarrhea small rash on his neck that is resolving as well as candidal mucositis that resolved with Diflucan. Overall he is tolerating treatment very well, has no neuropathy and is willing to proceed with additional treatment as planned. Updated Visit, February 08, 2020: Jon Bauer is a 69 year old male seen for a monoclonal gammopathy found on routine labs. The patient was found to have a monoclonal gammopathy of (IgG) 3.3 gm with lambda specificity noted in Dr. BALDWIN's notes from 11/29/2018. He had not yet had a bone marrow biopsy so performed 1 on December 17, 2019 and it appeared that he had at least a smoldering myeloma with small lytic lesions in both Humeral heads as well as the distal right femur. A PET/CT wich showed only a sternal lesion with uptake FDG with SUV 2.7 and no uptakein either femur or humeral heads. Findings are consistent with multiple myeloma and we will proceed with induction therapy. I sat with him and his Leisa and extensively reviewed the treatmtent plan as well as the risks and benefits. I anticipate 8-10 cycles of induction. I will discuss HCT with them at their next visit so as to not overwhelm them. He has mild neuropathy from poorly controlled diabetes and coronary artery calcification but otherwise has a well preserved performance status and could be appropriate despite being older than 65. RADIOGRAPHIC DATA: Reviewed on February 08, 2020 2. 02/01/2020 PET/CT: 1. NECK: No FDG avid neoplastic process. 2. CHEST: No FDG avid neoplastic process. 3. ABDOMEN/PELVIS: No FDG avid neoplastic process. 4. EXTREMITIES/SKELETON: * 1.2 cm mildly FDG-avid lytic lesion in the sternum with SUV max of 2.7,may represent a site of active myeloma. * No FDG avid destructive osseous lesions elsewhere. Specifically, no hypermetabolic lesions in humeral heads or femurs. 1. 06/08/2019 Bone Survey: Lytic lesions involving bilateral humeral heads and distal right femur PATHOLOGIC PROFILE/MOLECULAR DATA: Reviewed on 02/08/2020 1. 12/17/2019 bone marrow biopsy and aspirate: Bone marrow, aspirate smear and core biopsy, with clot section and peripheral blood: Involved by plasma cell neoplasm with 5 to 10% plasma cells. Normocellular bone marrow 20% with trilineage hematopoiesis. Stainable iron present. Comment the patient has a history of IgG lambda monoclonal protein. The bone marrow shows involvement by a plasma cell neoplasm with 3% plasma cells in the aspirate smear and 5 to 10% plasma cells byimmunohistochemistry. Final classification of plasma cell neoplasms require correlation with additional clinical laboratory and/or radiologic findings. FISH for plasma cell neoplasm: Findings demonstrated plasma cell population with trisomy 9, [id number] and gain of genetic material at the CCN D1 locus or trisomy 11. These findings are consistent with the presence of a plasma cell neoplasm and represent standard risk disease. Cytogenetics: Normal male karyotype 46, XY 20 REVIEW OF SYSTEMS Per HPI and otherwise negative by full review of organ systems. ECOG PERFORMANCE STATUS: 0 PHYSICAL EXAMINATION: Vitals: BP 116/86 Pulse 57 Temp (Src) 97.8 (Temporal) Resp 16 Ht 5' 11.496 (1.82m) Wt 235 lb 12.8 oz (107.0kg) SpO2 99% BMI 32.43 kg/(m^2). Body surface area is 2.32 meters squared. ECOG 0 Exam limited to gross visualization where appropriate due to COVID-19. Gen.: This is an age-appropriate patient in no acute distress. Head: Appears atraumatic with no visible lesions. Notable enlarged pustules on left latter day and cheek Eyes: Pupils equally round and reactive to light, extraocular muscles are intact. Neck: Supple. Mouth: Mucous membranes appeared to be moist. Respiratory: Appears to be respiring comfortably. Neurologic: Nonfocal to gross visualization. Alert and oriented 3. Psychiatric: No evidence of inappropriate anxiety or depression. Skin: Visible areas of skin without rash, lesions, wounds or petechiae. ALLERGIES: ALLERGIES No Known Allergies MEDICATIONS: nystatin (MYCOSTATIN) 100,000 unit/mL suspension TAKE 4 ML BY MOUTH swish in mouth for as long as possible BEFORE swallowing FOUR TIMES DAILY FOR 10 DAYS benzonatate (TESSALON PERLE) 100 mg capsule Take 100 mg by mouth three times daily as needed. predniSONE (DELTASONE) 10 mg tablet TAKE 3 TABLETS BY MOUTH DAILY FOR 3 DAYS, then TAKE 2 TABLETS DAILY FOR 3 DAYS, then TAKE 1 TABLET DAILY FOR 3 DAYS levoFLOXacin (LEVAQUIN) 750 mg tablet TAKE 1 TABLET BY MOUTH DAILY FOR 10 DAYS lenalidomide (REVLIMID) 5 mg capsule TAKE 1 CAPSULE BY MOUTH 1 TIME DAILY. VICTOZA 2-REGULO 0.6 mg/0.1 mL (18 mg/3 mL) INJECT 0.2 ml (1.2mg) SUBCUTANEOUSLY ONCE DAILY triamcinolone acetonide (KENALOG) 0.1 % ointment ondansetron (ZOFRAN) 8 mg tablet aspirin, enteric coated (ASPIR-LOW) 81 mg EC tablet Take 1 tablet by mouth once daily. Please hold until told to resume by your oncologist rOPINIRole (REQUIP) 2 mg tablet Take 1 tablet by mouth daily at bedtime. prochlorperazine (COMPAZINE) 10 mg tablet Take 1 tablet by mouth every 4 hours as needed. FOR NAUSEA escitalopram oxalate (LEXAPRO) 10 mg tablet Take 1 tablet by mouth once daily. Cholecalciferol, Vitamin D3, (VITAMIN D) 25 mcg (1,000 unit) cap Take 2 capsules by mouth once daily. sodium chloride 0.9 %, flush, (BD POSIFLUSH) syringe Inject 10 mL intravenously once daily. BMT Patient. Flush each lumen daily. atorvastatin (LIPITOR) 10 mg tablet Take 10 mg by mouth once daily. cetirizine (ALL DAY ALLERGY) 10 mg tablet Take 10 mg by mouth once daily. dapagliflozin (FARXIGA) 10 mg tab Take 10 mg by mouth daily with breakfast. glipiZIDE 10 mg tablet Take 10 mg by mouth once daily. sulfamethoxazole-trimethoprim (BACTRIM DS,SEPTRA DS) 800-160 mg per tablet Take 1 tablet by mouth twice daily. diphenoxylate-atropine (LOMOTIL) 2.5-0.025 mg per tablet Take 1 tablet by mouth four times daily asneeded for diarrhea for up to 15 days. traZODone (DESYREL) 100 mg tablet potassium chloride ER (K-DUR, KLOR-CON) 20 mEq tablet Take 1 tablet by mouth twice daily. simethicone, chewable (MYLICON) 80 mg chewable tablet Take 1 tablet by mouth every 6 hours as needed. gabapentin (NEURONTIN) 100 mg capsule Take 1 capsule by mouth daily at bedtime for 30 days. loperamide HCl (IMODIUM ORAL) Take by mouth. traMADol (ULTRAM) 50 mg tablet Take 50 mg by mouth every 6 hours as needed. LABORATORY VALUES: WBC (k/uL) Date Value 11/20/2021 4.26 RBC (m/uL) Date Value 11/20/2021 4.38 Hemoglobin (g/dL) Date Value 11/20/2021 13.9 Hematocrit (%) Date Value 11/20/2021 41.1 MCV (fL) Date Value 11/20/2021 93.8 MCH (pg) Date Value 11/20/2021 31.7 MCHC (g/dL) Date Value 11/20/2021 33.8 RDW-CV (%) Date Value 11/20/2021 13.6 Platelet Count (k/uL) Date Value 11/20/2021 72 (L) MPV (fL) Date Value 11/20/2021 8.7 (L) Glucose (mg/dL) Date Value 10/23/2021 239 (H) BUN (mg/dL) Date Value 10/23/2021 21 Creatinine (mg/dL) Date Value 10/23/2021 1.21 Sodium (mmol/L) Date Value 10/23/2021 136 Potassium (mmol/L) Date Value 10/23/2021 3.9 Chloride (mmol/L) Date Value 10/23/2021 104 CO2 (mmol/L) Date Value 10/23/2021 26 Protein, Total (g/dL) Date Value 10/23/2021 6.5 Albumin (g/dL) Date Value 10/23/2021 4.3 Calcium, Total (mg/dL) Date Value 10/23/2021 9.4 Alkaline Phosphatase (U/L) Date Value 10/23/2021 104 Bilirubin, Total (mg/dL) Date Value 10/23/2021 0.4 AST (U/L) Date Value 10/23/2021 34 ALT (U/L) Date Value 10/23/2021 44 M-Protein Concentration Date Value 11/20/2021 0.29 g/dL 09/25/2021 0.31 g/dL 08/28/2021 0.35 g/dL 07/30/2021 0.33 g/dL 07/02/2021 0.36 gm/dL 06/04/2021 0.31 gm/dL 04/17/2021 0.35 gm/dL 02/26/2021 0.37 gm/dL 12/26/2020 0.62 gm/dL DIAGNOSIS: (C90.00) Multiple myeloma not having achieved remission (HCC) (primary encounter diagnosis) Plan: B2 MICROGLOBULIN B, CBC + DIFF, COMP METABOLIC PANEL, LD LACTATE DEHYDRO, PHOSPHORUS INORGANIC, PROTEIN ELECTROPHORESIS SERUM W/INTERP, MONOCLONAL PROTEIN, SERUM (BLOOD), URIC ACID BLOOD, CALCIUM IONIZED BLOOD, KAPPA/ORTIZ,FREE,SER, MONOCLONAL PROT 24 UR W/INTERP, PROT ELEC UR 24HR W/M SPIKE AND INTERP PAST MEDICAL HISTORY Diagnosis Date Allergic rhinitis Biceps rupture, proximal 04/09/2014 Bicipital tenosynovitis 11/01/2013 Chronic pain COVID-19 06/11/2020 positive test 06/13/20 Depression 09/18/2020 Continue home dose of lexapro Elevated blood protein elevated MGUS Generalized anxiety disorder Glaucoma Hypercholesteremia 09/17/2020 Hold Lipitor inpatient Hyperlipemia Hypertension Leukocytosis Multiple myeloma ([facility]) 09/17/2020 6 Cycles RVD (February 2020 through August 2020) in a [place] Multiple myeloma not having achieved remission ([facility]) 02/04/2020 Neuropathy 08/20/2020 Continue home Gabapentin Obesity Restless leg syndrome 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 Protocol(s): 3422 1C Preparative regimen: Melphalan Mobilization regimen: plerixafor & neupogenStem cell source: apheresis CD34 cell dose (x10e6/kg): 4.05 Date of transplant: 09/19/20 Type 2 diabetes ([facility]) 08/20/2020 Takes metformin, Lantus, victoza & Farxiga Sliding Scale inpatient & Lantus Plan: -Endo following, recs in dc instructions for home Type II or unspecified type diabetes mellitus without mention of complication, uncontrolled PAST SURGICAL HISTORY Procedure Laterality Date EXTENSIVE FINGER SURGERY Right FOOT/TOES SURGERY PROC UNLISTED Left hammer toes and bunions PALATOP CL PALATE ATTACHMENT PHARYNGEAL FLAP age 5 SHOULDER SURGERY HX Left tendon repair Social History Tobacco Use Smoking status: Former Smoker Packs/day: 1.00 Years: 40.00 Pack years: 40.00 Smokeless tobacco: Never Used Tobacco comment: 03/30/2018 Vaping Use Vaping Use: Never used Substance Use Topics Alcohol use: Yes Comment: occassional Drug use: Yes Types: Marijuana Comment: THC edibles, 3x a week FAMILY HISTORY Problem Relation Age of Onset Cancer Mother brain 76 y/o Heart disease Mother Hypertension Mother Diabetes Father Heart disease Father Hypertension Father Heart Attack Father Diabetes Sister other (atrial fib) Sister COPD Sister No Known Problems Sister other (polio) Maternal Grandfather Diabetes Paternal Grandmother No Known Problems Daughter I spent a total of 30 minutes on the date of the service which included preparing to see the patient, [id number] patient care, completing clinical documentation, obtaining and/or reviewing separately obtained history, performing a medically appropriate examination, ordering medications, tests, or procedures and independently interpreting results (not separately reported). Vimal Crandall MD, CPE Hematology and Oncology Services Provided at: [place], [place] CC: Dr. Frankie Mdeellin documented in [facility] History of Present illness Narrative* Vimal Crandall MD - 10/23/2021 2:47 PM EDT Images from the original note were not included. NAME: Jon Bauer [facility] NO.: [id number] DATE OF SERVICE: October 23, 2021 Some elements in this clinic note that are critical to medical decision making have been carefully reviewed and included from a prior clinic note dated: September 25, 2021 Additional Clinicians involved in Jon Bauer's care: Dr. Lomeli (PCP), Frankie Campbell CC: Multiple myeloma followup ASSESSMENT: This is a 71 yo man diagnosed with an IgG lambda monoclonal gammopathy in 2019 and was then noted to have rising M-spike and PET scan documented a sternal lesion. 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 ISS and R-ISS stage II disease. He had a partial response to induction therapy and has recovered following Autologous stem cell infusion. He is on schedule with his post transplant vaccinations. Mild thrombocytopenia - stable for now. Additional medical issues include: - Immunodeficiency following HDSCT and patient will continue Acyclovir and post- transplant immunizations per Infectious Disease protocol - Renal failure is improving and we will continue monitoring - Neuropathy is stable - Diabetes mellitus managed by PCP Initial M-Protein is 3.31 prior to Induction PLAN: 1. Continue Revlimid at 5 mg daily. 2. RTC in 4 weeks Labs same day 3. Augmentin 875 BID rx sent in TREATMENT TO DATE: 4. 07/30/2021: Resumed Rev at 5mg daily due to thrombocytopenia. 3. 12/26/2020: Rx for Maintenance Rev 10mg daily 2. 09/19/2020: HDCT Auto transplant (D0). 1. 02/18/2020 - 08/25/2020: RVD HPI: Updated Visit, October 23, 2021: Jon returns alone today and remains on Rev maintenance. Sinus fullness and productive cough will treat empirically. Otherwise continues to do well. Updated Visit, September 25, 2021: Jon Bauer returns for follow-up. He remains on Revlimid 5 mg daily and is tolerating it well. He denies any side effects from the Revlimid. He started his current cycle on September 08. He denies any unusual pain. He denies fevers, chills, night sweats and signs/symptoms of infection. He denies any abnormal bleeding or abnormal bruising. His skin is thin as he ages and tends to bleed easier due to that. His diarrhea is much improved. He remains on Metamucil. He offers no new complaints today. No new issues, problems or concerns. Updated Visit, August 28, 2021: Diarrhea associated with Metformin now improved significantly. His counts are fairly stable but platelets are a little low. Will continue treatment as is for now and consider holding the dose if he gets lower. Back on insulin for managing blood sugars. Updated Visit, July 30, 2021: Still has diarrhea biopsy results pending. Leisa is with him today. He is doing well overall. Will resume Revlimid at 5 mg daily. Platelets are at 100k. Updated Visit, July 16, 2021: Telephone only for 12 minutes Called Jon as requested and his counts were reviewed. His platelets are improving but still less than 100k. Unfortunately he still has daily diarrhea but is seeing Dr. Garay next week. We will plan to hold his Revilimid for a few weeks longer. Updated Visit, July 02, 2021: Platelets suppressed after having restarted revlimid 1 week ago - will ask him to stop. Still having diarrhea and is going to GI tomorrow M-spike continues to drop slowly. If unable to continue Rev, will change maintenance. Updated Visit, May 07, 2021: Will resume lexapro for depression. May be confusing ativan with lexapro No additional rash - Leisa is with him today. If it recurs, we can switch maintenance to Ixazomib or pomalidomide - defer to transplant team. Updated Visit, April 17, 2021: Walking better, neuropathy improving, fatigue resolving, appetite is improved. Only thing worse is restless legs in the evening. Getting his vaccination series. Labs stable. Rash is resolved. Updated Visit, January 28, 2021: Intermittent bowel issues but no significant problems. Both COVID-19 Vax Pfizer as of tomorrow Balance and activity levels are better - dizziness has resolved. recovereing from mild Upper respiratory viral infection M-Protein Concentration (gm/dL) Date Value 07/02/2021 0.36 Updated Visit, December 26, 2020: Jon returns today reporting a hospitalization for SBO with intractable nausea 12/16/2020. Managed conservatively and resolved. Proceed with vaccination schedule Start with COVID-19 vax. Occult Blood in stools - consider CT at next visit. Updated Visit, December 05, 2020: Occasional swelling in knees and ankles but is walking and getting more active. Still gets cold easily and has intermittent diarrhea but less than previous. Anemia is improved. Still has fatigue but is improving with continued activity. D100 s approximately 12/27/2020 and will need to start maintenance Revlimid beyond that time. He will need COVID Vax and others on schedule that he has. Updated Visit, November 13, 2020: Jon is 70 yo and underwent Autologous transplantMay 2020 was day of Autologous transplant and is doing well. We will continue monitoring his response and will anticipate starting maintenance therapy at the appropriate time. He had recent resolution of GI symptoms due to a prolonged course of Cipro- which once identified was stopped and symptoms resolved. 08/24/2020 his pretransplant testing revealed a 24-hour urine with 0.02 gm M spike. His serum M protein was 0.61, serum kappa light chains 15.3, serum lambda light chain 17.0, serum kappa/lambda ratio0.90 (normal 0.26 1.65), and his bone marrow examination from 08/19/2020 was 40% cellular with less than 5% plasma cells and normal cytogenetics. His pretransplant disease response was a OK. Transplant overview: Protocol(s): 3422 1C Preparative regimen: Melphalan Mobilization regimen: plerixafor & neupogen Stem cell source: apheresis CD34 cell dose (x10e6/kg): 4.05 Date of transplant: 09/19/20 Updated Visit, August 11, 2020: Jon is 69 years old and returns to resume treatment with Velcade plus Revlimid just prior to getting autologous transplant. He has recovered from Covid and is much more active and feels quite a bit better. Fatigue is resolved and he had a great week last week. His counts have recovered and he is safe to proceed. Updated Visit, July 11, 2020: Jon is 69 yo and ended up getting COVID-19 and we held treatment. He has now recovered from the acute effects and has also normalized his kidney function. We will resume treatment next week. Still fatigued, didn't end up in the hospital at least. Updated Visit, June 04, 2020: Jon is 69 yo and returns for ongoing treatment of MM with RVD. He is having difficulty with tolerance and complains of persisting diarrhea - will stop revlimid (he's still taking 25mg). He saw Dr. Campbell for transplant and we will get a 24 hour urine IEP with the next assessment. We will have a break in treatment and then start Rev at a lower dose as previously discussed with him. Updated Visit, May 19, 2020: Feel better but has burning in his stomach which we will try mylanta rather than Pepto-bismol. He is due to see BMT tomorrow virtually and otherwise, with the resolution of his symptoms from last week, he will resume treamtent as scheduled. He has responsive disease on RVD. Updated Visit, May 12, 2020: Jon is 69 yo and is being treated from IgG Lambda multiple myeloma with initial M-spike of 3.3 gm and small lytic lesions in both humeral heads and distal right femur. PET CT noted a lesion on the sternum. He is due for cycle 4 but feels lousy with respect to energy and persisting nausea. He has mild sensory neuropathy as well and is struggling with the decadron to manage his sugars. Updated Visit, April 14, 2020: Jon is 69 years old and returns for treatment for his newly diagnosed multiple myeloma currently on RVD. 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 Bone marrow biopsy in December 2019 revealed findings consistent with smoldering myeloma but with small lytic lesions in both humeral heads as well as right distal femur and an additional lesion noted on the sternumby PET/CT, we elected to treat him with 8-10 cycles of RVD. I discussed consideration of pulmonary transplant with him at his last visit and I will plan on referring him following his third cycle of treatment. He reports that he had issues with nausea and diarrhea, as well gas. Everything is settled down, but he is anxious about symptoms going forward. Updated visit, March 17, 2020: Jon is 69 years old and returns with his Leisa for treatment of newly diagnosed multiple myeloma for which he has been started on RVD. He was followed for a monoclonal gammopathy IgG lambda of3.3 g since November 2018. Biopsy in December 2019 demonstrated what appeared to be smoldering myeloma but he had small lytic lesions in both humeral heads as well as distal right femur. PET/CT showed an additional lesion in the sternum but did not find the femoral or humeral head lesions based on these findings we electively started him on initial treatment. I anticipate 8-10 cycles of RVD and he returns today for his second cycle. He tolerated his first cycle well however he has some unpredictable bouts of diarrhea small rash on his neck that is resolving as well as candidal mucositis that resolved with Diflucan. Overall he is tolerating treatment very well, has no neuropathy and is willing to proceed with additional treatment as planned. Updated Visit, February 08, 2020: Jon Bauer is a 69 year old male seen for a monoclonal gammopathy found on routine labs. The patient was found to have a monoclonal gammopathy of (IgG) 3.3 gm with lambda specificity noted in Dr. BALDWIN's notes from 11/29/2018. He had not yet had a bone marrow biopsy so performed 1 on December 17, 2019 and it appeared that he had at least a smoldering myeloma with small lytic lesions in both Humeral heads as well as the distal right femur. A PET/CT wich showed only a sternal lesion with uptake FDG with SUV 2.7 and no uptakein either femur or humeral heads. Findings are consistent with multiple myeloma and we will proceed with induction therapy. I sat with him and his Leisa and extensively reviewed the treatmtent plan as well as the risks and benefits. I anticipate 8-10 cycles of induction. I will discuss HCT with them at their next visit so as to not overwhelm them. He has mild neuropathy from poorly controlled diabetes and coronary artery calcification but otherwise has a well preserved performance status and could be appropriate despite being older than 65. RADIOGRAPHIC DATA: Reviewed on February 08, 2020 2. 02/01/2020 PET/CT: 1. NECK: No FDG avid neoplastic process. 2. CHEST: No FDG avid neoplastic process. 3. ABDOMEN/PELVIS: No FDG avid neoplastic process. 4. EXTREMITIES/SKELETON: * 1.2 cm mildly FDG-avid lytic lesion in the sternum with SUV max of 2.7, may represent a site of active myeloma. * No FDG avid destructive osseous lesions elsewhere. Specifically, no hypermetabolic lesions in humeral heads or femurs. 1. 06/08/2019 Bone Survey: Lytic lesions involving bilateral humeral heads and distal right femur PATHOLOGIC PROFILE/MOLECULAR DATA: Reviewed on 02/08/2020 1. 12/17/2019 bone marrow biopsy and aspirate: Bone marrow, aspirate smear and core biopsy, with clot section and peripheral blood: Involved by plasma cell neoplasm with 5 to 10% plasma cells. Normocellular bone marrow 20% with trilineage hematopoiesis. Stainable iron present. Comment the patient has a history of IgG lambda monoclonal protein. The bone marrow shows involvement by a plasma cell neoplasm with 3% plasma cells in the aspirate smear and 5 to 10% plasma cells byimmunohistochemistry. Final classification of plasma cell neoplasms require correlation with additional clinical laboratory and/or radiologic findings. FISH for plasma cell neoplasm: Findings demonstrated plasma cell population with trisomy 9, [id number] and gain of genetic material at the CCN D1 locus or trisomy 11. These findings are consistent with the presence of a plasma cell neoplasm and represent standard risk disease. Cytogenetics: Normal male karyotype 46, XY 20 REVIEW OF SYSTEMS Per HPI and otherwise negative by full review of organ systems. ECOG PERFORMANCE STATUS: 0 PHYSICAL EXAMINATION: Vitals: BP 149/71 Pulse 57 Temp (Src) 97.9 (Temporal) Resp 16 Ht 5' 11.496 (1.82m) Wt 234 lb 12.8 oz (106.5kg) SpO2 94% BMI 32.30 kg/(m^2). Body surface area is 2.32 meters squared. ECOG 0 Exam limited to gross visualization where appropriate due to COVID-19. Gen.: This is an age-appropriate patient in no acute distress. Head: Appears atraumatic with no visible lesions. Eyes: Pupils equally round and reactive to light, extraocular muscles are intact. Neck: Supple. Mouth: Mucous membranes appeared to be moist. Respiratory: Appears to be respiring comfortably. Neurologic: Nonfocal to gross visualization. Alert and oriented 3. Psychiatric: No evidence of inappropriate anxiety or depression. Skin: Visible areas of skin without rash, lesions, wounds or petechiae. ALLERGIES: ALLERGIES No Known Allergies MEDICATIONS: lenalidomide (REVLIMID) 5 mg capsule TAKE 1 CAPSULE BY MOUTH 1 TIME DAILY. VICTOZA 2-REGULO 0.6 mg/0.1 mL (18 mg/3 mL) INJECT 0.2 ml (1.2mg) SUBCUTANEOUSLY ONCE DAILY diphenoxylate-atropine (LOMOTIL) 2.5-0.025 mg per tablet Take 1 tablet by mouth four times daily asneeded for diarrhea for up to 15 days. triamcinolone acetonide (KENALOG) 0.1 % ointment ondansetron (ZOFRAN) 8 mg tablet traZODone (DESYREL) 100 mg tablet potassium chloride ER (K-DUR, KLOR-CON) 20 mEq tablet Take 1 tablet by mouth twice daily. simethicone, chewable (MYLICON) 80 mg chewable tablet Take 1 tablet by mouth every 6 hours as needed. aspirin, enteric coated (ASPIR-LOW) 81 mg EC tablet Take 1 tablet by mouth once daily. Please hold until told to resume by your oncologist gabapentin (NEURONTIN) 100 mg capsule Take 1 capsule by mouth daily at bedtime for 30 days. rOPINIRole (REQUIP) 2 mg tablet Take 1 tablet by mouth daily at bedtime. prochlorperazine (COMPAZINE) 10 mg tablet Take 1 tablet by mouth every 4 hours as needed. FOR NAUSEA escitalopram oxalate (LEXAPRO) 10 mg tablet Take 1 tablet by mouth once daily. Cholecalciferol, Vitamin D3, (VITAMIN D) 25 mcg (1,000 unit) cap Take 2 capsules by mouth once daily. sodium chloride 0.9 %, flush, (BD POSIFLUSH) syringe Inject 10 mL intravenously once daily. BMT Patient. Flush each lumen daily. loperamide HCl (IMODIUM ORAL) Take by mouth. atorvastatin (LIPITOR) 10 mg tablet Take 10 mg by mouth once daily. cetirizine (ALL DAY ALLERGY) 10 mg tablet Take 10 mg by mouth once daily. dapagliflozin (FARXIGA) 10 mg tab Take 10 mg by mouth daily with breakfast. traMADol (ULTRAM) 50 mg tablet Take 50 mg by mouth every 6 hours as needed. glipiZIDE 10 mg tablet Take 10 mg by mouth once daily. LABORATORY VALUES: WBC (k/uL) Date Value 10/23/2021 4.77 RBC (m/uL) Date Value 10/23/2021 4.38 Hemoglobin (g/dL) Date Value 10/23/2021 13.9 Hematocrit (%) Date Value 10/23/2021 41.0 MCV (fL) Date Value 10/23/2021 93.6 MCH (pg) Date Value 10/23/2021 31.7 MCHC (g/dL) Date Value 10/23/2021 33.9 RDW-CV (%) Date Value 10/23/2021 13.6 Platelet Count (k/uL) Date Value 10/23/2021 76 (L) MPV (fL) Date Value 10/23/2021 8.6 (L) Glucose (mg/dL) Date Value 10/23/2021 239 (H) BUN (mg/dL) Date Value 10/23/2021 21 Creatinine (mg/dL) Date Value 10/23/2021 1.21 Sodium (mmol/L) Date Value 10/23/2021 136 Potassium (mmol/L) Date Value 10/23/2021 3.9 Chloride (mmol/L) Date Value 10/23/2021 104 CO2 (mmol/L) Date Value 10/23/2021 26 Protein, Total (g/dL) Date Value 10/23/2021 6.5 Albumin (g/dL) Date Value 10/23/2021 4.3 Calcium, Total (mg/dL) Date Value 10/23/2021 9.4 Alkaline Phosphatase (U/L) Date Value 10/23/2021 104 Bilirubin, Total (mg/dL) Date Value 10/23/2021 0.4 AST (U/L) Date Value 10/23/2021 34 ALT (U/L) Date Value 10/23/2021 44 M-Protein Concentration Date Value 09/25/2021 0.31 g/dL 08/28/2021 0.35 g/dL 07/30/2021 0.33 g/dL 07/02/2021 0.36 gm/dL 06/04/2021 0.31 gm/dL 04/17/2021 0.35 gm/dL 02/26/2021 0.37 gm/dL 12/26/2020 0.62 gm/dL DIAGNOSIS: (C90.00) Multiple myeloma not having achieved remission ([facility]) (primary encounter diagnosis) Plan: B2 MICROGLOBULIN B, CBC + DIFF, COMP METABOLIC PANEL, LD LACTATE DEHYDRO, PHOSPHORUS INORGANIC, PROTEIN ELECTROPHORESIS SERUM W/INTERP, MONOCLONAL PROTEIN, SERUM (BLOOD), URIC ACID BLOOD, CALCIUM IONIZED BLOOD, KAPPA/ORTIZ,FREE,SER (Z94.81) S/P autologous bone marrow transplantation ([facility]) (N28.9) Renal insufficiency (D84.9) Immunodeficiency ([facility]) (J01.90) Acute non-recurrent sinusitis, unspecified location PAST MEDICAL HISTORY Diagnosis Date Allergic rhinitis Biceps rupture, proximal 04/09/2014 Bicipital tenosynovitis 11/01/2013 Chronic pain COVID-19 06/11/2020 positive test 06/13/20 Depression 09/18/2020 Continue home dose of lexapro Elevated blood protein elevated MGUS Generalized anxiety disorder Glaucoma Hypercholesteremia 09/17/2020 Hold Lipitor inpatient Hyperlipemia Hypertension Leukocytosis Multiple myeloma ([facility]) 09/17/2020 6 Cycles RVD (February 2020 through August 2020) in a [place] Multiple myeloma not having achieved remission ([facility]) 02/04/2020 Neuropathy 08/20/2020 Continue home Gabapentin Obesity Restless leg syndrome 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 Protocol(s): 3422 1C Preparative regimen: Melphalan Mobilization regimen: plerixafor & neupogenStem cell source: apheresis CD34 cell dose (x10e6/kg): 4.05 Date of transplant: 09/19/20 Type 2 diabetes ([facility]) 08/20/2020 Takes metformin, Lantus, victoza & Farxiga Sliding Scale inpatient & Lantus Plan: -Endo following, recs in dc instructions for home Type II or unspecified type diabetes mellitus without mention of complication, uncontrolled PAST SURGICAL HISTORY Procedure Laterality Date EXTENSIVE FINGER SURGERY Right FOOT/TOES SURGERY PROC UNLISTED Left hammer toes and bunions PALATOP CL PALATE ATTACHMENT PHARYNGEAL FLAP age 5 SHOULDER SURGERY HX Left tendon repair Social History Tobacco Use Smoking status: Former Smoker Packs/day: 1.00 Years: 40.00 Pack years: 40.00 Smokeless tobacco: Never Used Tobacco comment: 03/30/2018 Vaping Use Vaping Use: Never used Substance Use Topics Alcohol use: Yes Comment: occassional Drug use: Yes Types: Marijuana Comment: THC edibles, 3x a week FAMILY HISTORY Problem Relation Age of Onset Cancer Mother brain 76 y/o Heart disease Mother Hypertension Mother Diabetes Father Heart disease Father Hypertension Father Heart Attack Father Diabetes Sister other (atrial fib) Sister COPD Sister No Known Problems Sister other (polio) Maternal Grandfather Diabetes Paternal Grandmother No Known Problems Daughter I spent a total of 30 minutes on the date of the service which included preparing to see the patient, [id number] patient care, completing clinical documentation, obtaining and/or reviewing separately obtained history, performing a medically appropriate examination and ordering medications, tests, or procedures. Vimal Crandall MD, CPE Services Provided at: [place], [place] & [place], [place] CC: Dr. Frankie Medellin documented in this encounterCleveland [facility]05-23-2022 Miscellaneous Notes* Telephone Encounter - Arin Small RPh - 09/28/2021 9:48 AM EDT Physician: Luis M Crandall Call from pharmacy requesting refill. Please E-Scribe Last OV: 09/25/21 with Emmanuel Nunn CNP Future OV: 10/23/21 with Luis M Crandall MD Pending Prescriptions Disp Refills LENALIDOMIDE 5 MG CAPSULE 0 Sig: TAKE 1 CAPSULE BY MOUTH 1 TIME DAILY. ROGERIO: No Pharmacy Name: [facility] Ernesto Small RPh documented in this encounterCleveland Clinic [facility]04-26-2022 Miscellaneous Notes* Telephone Encounter - Mana Marshall RN - 09/01/2021 1:12 PM EDT Informed pt of Dr Youssef's message. Pt verbalized understanding and denies further needs at this time. Mana Marshall RN * Telephone Encounter - Mana Marshall RN - 09/01/2021 1:09 PM EDT ----- Message from Vimal Crandall MD sent at 09/01/2021 11:28 AM EDT ----- Cheryl Jon, your M protein is stable. documented in this encounterCleveland Clinic [facility]ucl[facility]04-22-2022 History of Present illness Narrative* Vimal Crandall MD - 08/28/2021 3:25 PM EDT Images from the original note were not included. NAME: Jon Bauer CLINIC NO.: [id number] DATE OF SERVICE: August 28, 2021 Some elements in this clinic note that are critical to medical decision making have been carefully reviewed and included from a prior clinic note dated: July 30, 2021 Additional Clinicians involved in Jon Bauer's care: Dr. Lomeli (PCP), Frankie Campbell CC: Multiple myeloma followup ASSESSMENT: This is a 70 yo man diagnosed with an IgG lambda monoclonal gammopathy in 2019 and was then noted to have rising M-spike and PET scan documented a sternal lesion. 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 ISS and R-ISS stage II disease. He had a partial response to induction therapy and has recovered following Autologous stem cell infusion. He is on schedule with his post transplant vaccinations. Mild thrombocytopenia - stable for now. Additional medical issues include: - Immunodeficiency following HDSCT and patient will continue Acyclovir and post- transplant immunizations per Infectious Disease protocol - Renal failure is improving and we will continue monitoring - Neuropathy is stable - Diabetes mellitus managed by PCP Initial M-Protein is 3.31 prior to Induction PLAN: 1. Continue Revlimid at 5 mg daily. Rx sent. 2. RTC in 4 weeks Labs same day TREATMENT TO DATE: 4. 07/30/2021: 3. 12/26/2020: Rx for Maintenance Rev 10mg daily 2. 09/19/2020: HDCT Auto transplant (D0). 1. 02/18/2020 - 08/25/2020: RVD HPI: Updated Visit, August 28, 2021: Diarrhea associated with Metformin now improved significantly. His counts are fairly stable but platelets are a little low. Will continue treatment as is for now and consider holding the dose if he gets lower. Back on insulin for managing blood sugars. Updated Visit, July 30, 2021: Still has diarrhea biopsy results pending. Leisa is with him today. He is doing well overall. Will resume Revlimid at 5 mg daily. Platelets are at 100k. Updated Visit, July 16, 2021: Telephone only for 12 minutes Called Jon as requested and his counts were reviewed. His platelets are improving but still less than 100k. Unfortunately he still has daily diarrhea but is seeing Dr. Garay next week. We will plan to hold his Revilimid for a few weeks longer. Updated Visit, July 02, 2021: Platelets suppressed after having restarted revlimid 1 week ago - will ask him to stop. Still having diarrhea and is going to GI tomorrow M-spike continues to drop slowly. If unable to continue Rev, will change maintenance. Updated Visit, May 07, 2021: Will resume lexapro for depression. May be confusing ativan with lexapro No additional rash - Leisa is with him today. If it recurs, we can switch maintenance to Ixazomib or pomalidomide - defer to transplant team. Updated Visit, April 17, 2021: Walking better, neuropathy improving, fatigue resolving, appetite is improved. Only thing worse is restless legs in the evening. Getting his vaccination series. Labs stable. Rash is resolved. Updated Visit, January 28, 2021: Intermittent bowel issues but no significant problems. Both COVID-19 Vax Pfizer as of tomorrow Balance and activity levels are better - dizziness has resolved. recovereing from mild Upper respiratory viral infection M-Protein Concentration (gm/dL) Date Value 07/02/2021 0.36 Updated Visit, December 26, 2020: Jon returns today reporting a hospitalization for SBO with intractable nausea 12/16/2020. Managed conservatively and resolved. Proceed with vaccination schedule Start with COVID-19 vax. Occult Blood in stools - consider CT at next visit. Updated Visit, December 05, 2020: Occasional swelling in knees and ankles but is walking and getting more active. Still gets cold easily and has intermittent diarrhea but less than previous. Anemia is improved. Still has fatigue but is improving with continued activity. D100 s approximately 12/27/2020 and will need to start maintenance Revlimid beyond that time. He will need COVID Vax and others on schedule that he has. Updated Visit, November 13, 2020: Jon is 70 yo and underwent Autologous transplantMay 2020 was day of Autologous transplant and is doing well. We will continue monitoring his response and will anticipate starting maintenance therapy at the appropriate time. He had recent resolution of GI symptoms due to a prolonged course of Cipro- which once identified was stopped and symptoms resolved. 08/24/2020 his pretransplant testing revealed a 24-hour urine with 0.02 gm M spike. His serum M protein was 0.61, serum kappa light chains 15.3, serum lambda light chain 17.0, serum kappa/lambda ratio0.90 (normal 0.26 1.65), and his bone marrow examination from 08/19/2020 was 40% cellular with less than 5% plasma cells and normal cytogenetics. His pretransplant disease response was a OK. Transplant overview: Protocol(s): 3422 1C Preparative regimen: Melphalan Mobilization regimen: plerixafor & neupogen Stem cell source: apheresis CD34 cell dose (x10e6/kg): 4.05 Date of transplant: 09/19/20 Updated Visit, August 11, 2020: Jon is 69 years old and returns to resume treatment with Velcade plus Revlimid just prior to getting autologous transplant. He has recovered from Covid and is much more active and feels quite a bit better. Fatigue is resolved and he had a great week last week. His counts have recovered and he is safe to proceed. Updated Visit, July 11, 2020: Jon is 69 yo and ended up getting COVID-19 and we held treatment. He has now recovered from the acute effects and has also normalized his kidney function. We will resume treatment next week. Still fatigued, didn't end up in the hospital at least. Updated Visit, June 04, 2020: Jon is 69 yo and returns for ongoing treatment of MM with RVD. He is having difficulty with tolerance and complains of persisting diarrhea - will stop revlimid (he's still taking 25mg). He saw Dr. Campbell for transplant and we will get a 24 hour urine IEP with the next assessment. We will have a break in treatment and then start Rev at a lower dose as previously discussed with him. Updated Visit, May 19, 2020: Feel better but has burning in his stomach which we will try mylanta rather than Pepto-bismol. He is due to see BMT tomorrow virtually and otherwise, with the resolution of his symptoms from last week, he will resume treamtent as scheduled. He has responsive disease on RVD. Updated Visit, May 12, 2020: Jon is 69 yo and is being treated from IgG Lambda multiple myeloma with initial M-spike of 3.3 gm and small lytic lesions in both humeral heads and distal right femur. PET CT noted a lesion on the sternum. He is due for cycle 4 but feels lousy with respect to energy and persisting nausea. He has mild sensory neuropathy as well and is struggling with the decadron to manage his sugars. Updated Visit, April 14, 2020: Jon is 69 years old and returns for treatment for his newly diagnosed multiple myeloma currently on RVD. 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 Bone marrow biopsy in December 2019 revealed findings consistent with smoldering myeloma but with small lytic lesions in both humeral heads as well as right distal femur and an additional lesion noted on the sternumby PET/CT, we elected to treat him with 8-10 cycles of RVD. I discussed consideration of pulmonary transplant with him at his last visit and I will plan on referring him following his third cycle of treatment. He reports that he had issues with nausea and diarrhea, as well gas. Everything is settled down, but he is anxious about symptoms going forward. Updated visit, March 17, 2020: Jon is 69 years old and returns with his Leisa for treatment of newly diagnosed multiple myeloma for which he has been started on RVD. He was followed for a monoclonal gammopathy IgG lambda of3.3 g since November 2018. Biopsy in December 2019 demonstrated what appeared to be smoldering myeloma but he had small lytic lesions in both humeral heads as well as distal right femur. PET/CT showed an additional lesion in the sternum but did not find the femoral or humeral head lesions based on these findings we electively started him on initial treatment. I anticipate 8-10 cycles of RVD and he returns today for his second cycle. He tolerated his first cycle well however he has some unpredictable bouts of diarrhea small rash on his neck that is resolving as well as candidal mucositis that resolved with Diflucan. Overall he is tolerating treatment very well, has no neuropathy and is willing to proceed with additional treatment as planned. Updated Visit, February 08, 2020: Jon Bauer is a 69 year old male seen for a monoclonal gammopathy found on routine labs. The patient was found to have a monoclonal gammopathy of (IgG) 3.3 gm with lambda specificity noted in Dr. BALDWIN's notes from 11/29/2018. He had not yet had a bone marrow biopsy so performed 1 on December 17, 2019 and it appeared that he had at least a smoldering myeloma with small lytic lesions in both Humeral heads as well as the distal right femur. A PET/CT wich showed only a sternal lesion with uptake FDG with SUV 2.7 and no uptakein either femur or humeral heads. Findings are consistent with multiple myeloma and we will proceed with induction therapy. I sat with him and his Leisa and extensively reviewed the treatmtent plan as well as the risks and benefits. I anticipate 8-10 cycles of induction. I will discuss HCT with them at their next visit so as to not overwhelm them. He has mild neuropathy from poorly controlled diabetes and coronary artery calcification but otherwise has a well preserved performance status and could be appropriate despite being older than 65. RADIOGRAPHIC DATA: Reviewed on February 08, 2020 2. 02/01/2020 PET/CT: 1. NECK: No FDG avid neoplastic process. 2. CHEST: No FDG avid neoplastic process. 3. ABDOMEN/PELVIS: No FDG avid neoplastic process. 4. EXTREMITIES/SKELETON: * 1.2 cm mildly FDG-avid lytic lesion in the sternum with SUV max of 2.7, may represent a site of active myeloma. * No FDG avid destructive osseous lesions elsewhere. Specifically, no hypermetabolic lesions in humeral heads or femurs. 1. 06/08/2019 Bone Survey: Lytic lesions involving bilateral humeral heads and distal right femur PATHOLOGIC PROFILE/MOLECULAR DATA: Reviewed on 02/08/2020 1. 12/17/2019 bone marrow biopsy and aspirate: Bone marrow, aspirate smear and core biopsy, with clot section and peripheral blood: Involved by plasma cell neoplasm with 5 to 10% plasma cells. Normocellular bone marrow 20% with trilineage hematopoiesis. Stainable iron present. Comment the patient has a history of IgG lambda monoclonal protein. The bone marrow shows involvement by a plasma cell neoplasm with 3% plasma cells in the aspirate smear and 5 to 10% plasma cells byimmunohistochemistry. Final classification of plasma cell neoplasms require correlation with additional clinical laboratory and/or radiologic findings. FISH for plasma cell neoplasm: Findings demonstrated plasma cell population with trisomy 9, [id number] and gain of genetic material at the CCN D1 locus or trisomy 11. These findings are consistent with the presence of a plasma cell neoplasm and represent standard risk disease. Cytogenetics: Normal male karyotype 46, XY 20 REVIEW OF SYSTEMS Per HPI and otherwise negative by full review of organ systems. ECOG PERFORMANCE STATUS: 0 PHYSICAL EXAMINATION: Vitals: BP 132/87 Pulse 67 Temp (Src) 98.1 (Temporal) Resp 16 Ht 5' 11.496 (1.82m) Wt 233 lb 6.4 oz (105.9kg) SpO2 100% BMI 32.10 kg/(m^2). Body surface area is 2.31 meters squared. Exam limited to gross visualization where appropriate due to COVID-19. Gen.: This is an age-appropriate patient in no acute distress. Head: Appears atraumatic with no visible lesions. Eyes: Pupils equally round and reactive to light, extraocular muscles are intact. Neck: Supple. Mouth: Mucous membranes appeared to be moist. Respiratory: Appears to be respiring comfortably. Neurologic: Nonfocal to gross visualization. Alert and oriented 3. Psychiatric: No evidence of inappropriate anxiety or depression. Skin: Visible areas of skin without rash, lesions, wounds or petechiae. ALLERGIES: ALLERGIES No Known Allergies MEDICATIONS: triamcinolone acetonide (KENALOG) 0.1 % ointment ciprofloxacin HCl (CIPRO) 500 mg tablet ondansetron (ZOFRAN) 8 mg tablet traZODone (DESYREL) 100 mg tablet potassium chloride ER (K-DUR, KLOR-CON) 20 mEq tablet Take 1 tablet by mouth twice daily. simethicone, chewable (MYLICON) 80 mg chewable tablet Take 1 tablet by mouth every 6 hours as needed. aspirin, enteric coated (ASPIR-LOW) 81 mg EC tablet Take 1 tablet by mouth once daily. Please hold until told to resume by your oncologist rOPINIRole (REQUIP) 2 mg tablet Take 1 tablet by mouth daily at bedtime. prochlorperazine (COMPAZINE) 10 mg tablet Take 1 tablet by mouth every 4 hours as needed. FOR NAUSEA escitalopram oxalate (LEXAPRO) 10 mg tablet Take 1 tablet by mouth once daily. Cholecalciferol, Vitamin D3, (VITAMIN D) 25 mcg (1,000 unit) cap Take 2 capsules by mouth once daily. sodium chloride 0.9 %, flush, (BD POSIFLUSH) syringe Inject 10 mL intravenously once daily. BMT Patient. Flush each lumen daily. loperamide HCl (IMODIUM ORAL) Take by mouth. atorvastatin (LIPITOR) 10 mg tablet Take 10 mg by mouth once daily. cetirizine (ALL DAY ALLERGY) 10 mg tablet Take 10 mg by mouth once daily. dapagliflozin (FARXIGA) 10 mg tab Take 10 mg by mouth daily with breakfast. traMADol (ULTRAM) 50 mg tablet Take 50 mg by mouth every 6 hours as needed. metFORMIN 1,000 mg tablet Take 1,000 mg by mouth twice daily with meals. glipiZIDE 10 mg tablet Take 10 mg by mouth once daily. lenalidomide (REVLIMID) 5 mg capsule Take 1 capsule (5 mg) by mouth once daily. diphenoxylate-atropine (LOMOTIL) 2.5-0.025 mg per tablet Take 1 tablet by mouth four times daily asneeded for diarrhea for up to 15 days. gabapentin (NEURONTIN) 100 mg capsule Take 1 capsule by mouth daily at bedtime for 30 days. LABORATORY VALUES: WBC (k/uL) Date Value 08/28/2021 5.04 RBC (m/uL) Date Value 08/28/2021 4.55 Hemoglobin (g/dL) Date Value 08/28/2021 14.2 Hematocrit (%) Date Value 08/28/2021 42.1 MCV (fL) Date Value 08/28/2021 92.5 MCH (pg) Date Value 08/28/2021 31.2 MCHC (g/dL) Date Value 08/28/2021 33.7 RDW-CV (%) Date Value 08/28/2021 14.0 Platelet Count (k/uL) Date Value 08/28/2021 93 (L) MPV (fL) Date Value 08/28/2021 8.9 (L) Glucose (mg/dL) Date Value 07/30/2021 209 (H) BUN (mg/dL) Date Value 07/30/2021 22 Creatinine (mg/dL) Date Value 07/30/2021 1.09 Sodium (mmol/L) Date Value 07/30/2021 139 Potassium (mmol/L) Date Value 07/30/2021 4.1 Chloride (mmol/L) Date Value 07/30/2021 104 CO2 (mmol/L) Date Value 07/30/2021 25 Protein, Total (g/dL) Date Value 07/30/2021 6.6 07/30/2021 6.5 Albumin (g/dL) Date Value 07/30/2021 4.2 Calcium, Total (mg/dL) Date Value 07/30/2021 9.7 Alkaline Phosphatase (U/L) Date Value 07/30/2021 95 Bilirubin, Total (mg/dL) Date Value 07/30/2021 0.4 AST (U/L) Date Value 07/30/2021 18 ALT (U/L) Date Value 07/30/2021 22 M-Protein Concentration Date Value 07/30/2021 0.33 g/dL 07/02/2021 0.36 gm/dL 06/04/2021 0.31 gm/dL 04/17/2021 0.35 gm/dL 02/26/2021 0.37 gm/dL 12/26/2020 0.62 gm/dL DIAGNOSIS: (C90.00) Multiple myeloma not having achieved remission ([facility]) Plan: lenalidomide (REVLIMID) 5 mg capsule (Z94.81) S/P autologous bone marrow transplantation ([facility]) Plan: lenalidomide (REVLIMID) 5 mg capsule (Z94.81) Autologous bone marrow transplantation status ([facility]) Plan: lenalidomide (REVLIMID) 5 mg capsule PAST MEDICAL HISTORY Diagnosis Date Allergic rhinitis Biceps rupture, proximal 04/09/2014 Bicipital tenosynovitis 11/01/2013 Chronic pain COVID-19 06/11/2020 positive test 06/13/20 Depression 09/18/2020 Continue home dose of lexapro Elevated blood protein elevated MGUS Generalized anxiety disorder Glaucoma Hypercholesteremia 09/17/2020 Hold Lipitor inpatient Hyperlipemia Hypertension Leukocytosis Multiple myeloma ([facility]) 09/17/2020 6 Cycles RVD (February 2020 through August 2020) in a [place] Multiple myeloma not having achieved remission ([facility]) 02/04/2020 Neuropathy 08/20/2020 Continue home Gabapentin Obesity Restless leg syndrome 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 Protocol(s): 3422 1C Preparative regimen: Melphalan Mobilization regimen: plerixafor & neupogenStem cell source: apheresis CD34 cell dose (x10e6/kg): 4.05 Date of transplant: 09/19/20 Type 2 diabetes ([facility]) 08/20/2020 Takes metformin, Lantus, victoza & Farxiga Sliding Scale inpatient & Lantus Plan: -Endo following, recs in dc instructions for home Type II or unspecified type diabetes mellitus without mention of complication, uncontrolled PAST SURGICAL HISTORY Procedure Laterality Date EXTENSIVE FINGER SURGERY Right FOOT/TOES SURGERY PROC UNLISTED Left hammer toes and bunions PALATOP CL PALATE ATTACHMENT PHARYNGEAL FLAP age 5 SHOULDER SURGERY HX Left tendon repair Social History Tobacco Use Smoking status: Former Smoker Packs/day: 1.00 Years: 40.00 Pack years: 40.00 Smokeless tobacco: Never Used Tobacco comment: 03/30/2018 Vaping Use Vaping Use: Never used Substance Use Topics Alcohol use: Yes Comment: occassional Drug use: Yes Types: Marijuana Comment: THC edibles, 3x a week FAMILY HISTORY Problem Relation Age of Onset Cancer Mother brain 76 y/o Heart disease Mother Hypertension Mother Diabetes Father Heart disease Father Hypertension Father Heart Attack Father Diabetes Sister other (atrial fib) Sister COPD Sister No Known Problems Sister other (polio) Maternal Grandfather Diabetes Paternal Grandmother No Known Problems Daughter Vimal Crandall MD, [facility] [place], [place] CC: MD Sana Oro DO Larry McCormick documented in this encounterCleveland Clinic [facility]ucl[facility]03-25-2022 Miscellaneous Notes* Telephone Encounter - Arin Small [facility] - 07/31/2021 4:07 PM EDT So sorry. Wrong pharmacy. One more time documented in this encounterCleveland Clinic Eucl[facility]03-25-2022 History of Present illness Narrative* Wing Lopez RPh - 07/31/2021 3:12 PM EDT [facility] received prescription(s) for Revlimid from Dr. Crandall's office. Unfortunately, we are unable to provide support for [employer] medications at this time. Dr. Crandall - If pt will need to move forward with therapy, please send new orders to specialty pharmacy of your choice which can dispense [employer] products. For your reference here is the link to the [facility] pharmacy network: [email or web address] Please add the [employer] Authorization number in the Notes to Pharmacy Section to ensure timely processing. Thanks! No further follow up required from [facility]. Wing Lopez, PharmD Clinical Pharmacist, Oncology [facility] P: ; F: Pool: P [facility] Pool #: [id number] documented in this encounterC[facility]03-24-2022 History of Present illness Narrative* Vimal Crandall MD - 07/30/2021 3:45 PM EDT Images from the original note were not included. NAME: Jon Bauer CLINIC NO.: [id number] DATE OF SERVICE: July 30, 2021 Some elements in this clinic note that are critical to medical decision making have been carefully reviewed and included from a prior clinic note dated: July 16, 2021 & July 02, 2021 Additional Clinicians involved in Jon Bauer's care: Dr. Lomeli (PCP), Frankie Campbell CC: Multiple myeloma followup ASSESSMENT: This is a 70 yo man diagnosed with an IgG lambda monoclonal gammopathy in 2019 and was then noted to have rising M-spike and PET scan documented a sternal lesion. 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 ISS and R-ISS stage II disease. He had a partial response to induction therapy and has recovered following Autologous stem cell infusion. Continues to recover. Additional medical issues include: - Immunodeficiency following HDSCT and patient will continue Acyclovir and post- transplant immunizations per Infectious Disease protocol - Renal failure is improving and we will continue monitoring - Neuropathy is stable - Diabetes mellitus managed by PCP Initial M-Protein is 3.31 prior to Induction PLAN: 1. Resume Revlimid at 5 mg daily. Rx sent. 2. RTC in 4 weeks Labs same day TREATMENT TO DATE: 4. 07/30/2021: 3. 12/26/2020: Rx for Maintenance Rev 10mg daily 2. 09/19/2020: HDCT Auto transplant (D0). 1. 02/18/2020 - 08/25/2020: RVD HPI: Updated Visit, July 30, 2021: Still has diarrhea biopsy results pending. Leisa is with him today. He is doing well overall. Will resume Revlimid at 5 mg daily. Platelets are at 100k. Updated Visit, July 16, 2021: Telephone only for 12 minutes Called Jon as requested and his counts were reviewed. His platelets are improving but still less than 100k. Unfortunately he still has daily diarrhea but is seeing Dr. Ditty next week. We will plan to hold his Revilimid for a few weeks longer. Updated Visit, July 02, 2021: Platelets suppressed after having restarted revlimid 1 week ago - will ask him to stop. Still having diarrhea and is going to GI tomorrow M-spike continues to drop slowly. If unable to continue Rev, will change maintenance. Updated Visit, May 07, 2021: Will resume lexapro for depression. May be confusing ativan with lexapro No additional rash - Leisa is with him today. If it recurs, we can switch maintenance to Ixazomib or pomalidomide - defer to transplant team. Updated Visit, April 17, 2021: Walking better, neuropathy improving, fatigue resolving, appetite is improved. Only thing worse is restless legs in the evening. Getting his vaccination series. Labs stable. Rash is resolved. Updated Visit, January 28, 2021: Intermittent bowel issues but no significant problems. Both COVID-19 Vax Pfizer as of tomorrow Balance and activity levels are better - dizziness has resolved. recovereing from mild Upper respiratory viral infection M-Protein Concentration (gm/dL) Date Value 07/02/2021 0.36 Updated Visit, December 26, 2020: Jon returns today reporting a hospitalization for SBO with intractable nausea 12/16/2020. Managed conservatively and resolved. Proceed with vaccination schedule Start with COVID-19 vax. Occult Blood in stools - consider CT at next visit. Updated Visit, December 05, 2020: Occasional swelling in knees and ankles but is walking and getting more active. Still gets cold easily and has intermittent diarrhea but less than previous. Anemia is improved. Still has fatigue but is improving with continued activity. D100 s approximately 12/27/2020 and will need to start maintenance Revlimid beyond that time. He will need COVID Vax and others on schedule that he has. Updated Visit, November 13, 2020: Jon is 70 yo and underwent Autologous transplantMay 2020 was day of Autologous transplant and is doing well. We will continue monitoring his response and will anticipate starting maintenance therapy at the appropriate time. He had recent resolution of GI symptoms due to a prolonged course of Cipro- which once identified was stopped and symptoms resolved. 08/24/2020 his pretransplant testing revealed a 24-hour urine with 0.02 gm M spike. His serum M protein was 0.61, serum kappa light chains 15.3, serum lambda light chain 17.0, serum kappa/lambda ratio0.90 (normal 0.26 1.65), and his bone marrow examination from 08/19/2020 was 40% cellular with less than 5% plasma cells and normal cytogenetics. His pretransplant disease response was a OK. Transplant overview: Protocol(s): 3422 1C Preparative regimen: Melphalan Mobilization regimen: plerixafor & neupogen Stem cell source: apheresis CD34 cell dose (x10e6/kg): 4.05 Date of transplant: 09/19/20 Updated Visit, August 11, 2020: Jon is 69 years old and returns to resume treatment with Velcade plus Revlimid just prior to getting autologous transplant. He has recovered from Covid and is much more active and feels quite a bit better. Fatigue is resolved and he had a great week last week. His counts have recovered and he is safe to proceed. Updated Visit, July 11, 2020: Jon is 69 yo and ended up getting COVID-19 and we held treatment. He has now recovered from the acute effects and has also normalized his kidney function. We will resume treatment next week. Still fatigued, didn't end up in the hospital at least. Updated Visit, June 04, 2020: Jon is 69 yo and returns for ongoing treatment of MM with RVD. He is having difficulty with tolerance and complains of persisting diarrhea - will stop revlimid (he's still taking 25mg). He saw Dr. Campbell for transplant and we will get a 24 hour urine IEP with the next assessment. We will have a break in treatment and then start Rev at a lower dose as previously discussed with him. Updated Visit, May 19, 2020: Feel better but has burning in his stomach which we will try mylanta rather than Pepto-bismol. He is due to see BMT tomorrow virtually and otherwise, with the resolution of his symptoms from last week, he will resume treamtent as scheduled. He has responsive disease on RVD. Updated Visit, May 12, 2020: Jon is 69 yo and is being treated from IgG Lambda multiple myeloma with initial M-spike of 3.3 gm and small lytic lesions in both humeral heads and distal right femur. PET CT noted a lesion on the sternum. He is due for cycle 4 but feels lousy with respect to energy and persisting nausea. He has mild sensory neuropathy as well and is struggling with the decadron to manage his sugars. Updated Visit, April 14, 2020: Jon is 69 years old and returns for treatment for his newly diagnosed multiple myeloma currently on RVD. 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 Bone marrow biopsy in December 2019 revealed findings consistent with smoldering myeloma but with small lytic lesions in both humeral heads as well as right distal femur and an additional lesion noted on the sternumby PET/CT, we elected to treat him with 8-10 cycles of RVD. I discussed consideration of pulmonary transplant with him at his last visit and I will plan on referring him following his third cycle of treatment. He reports that he had issues with nausea and diarrhea, as well gas. Everything is settled down, but he is anxious about symptoms going forward. Updated visit, March 17, 2020: Jon is 69 years old and returns with his Leisa for treatment of newly diagnosed multiple myeloma for which he has been started on RVD. He was followed for a monoclonal gammopathy IgG lambda of3.3 g since November 2018. Biopsy in December 2019 demonstrated what appeared to be smoldering myeloma but he had small lytic lesions in both humeral heads as well as distal right femur. PET/CT showed an additional lesion in the sternum but did not find the femoral or humeral head lesions based on these findings we electively started him on initial treatment. I anticipate 8-10 cycles of RVD and he returns today for his second cycle. He tolerated his first cycle well however he has some unpredictable bouts of diarrhea small rash on his neck that is resolving as well as candidal mucositis that resolved with Diflucan. Overall he is tolerating treatment very well, has no neuropathy and is willing to proceed with additional treatment as planned. Updated Visit, February 08, 2020: Jon Bauer is a 69 year old male seen for a monoclonal gammopathy found on routine labs. The patient was found to have a monoclonal gammopathy of (IgG) 3.3 gm with lambda specificity noted in Dr. BALDWIN's notes from 11/29/2018. He had not yet had a bone marrow biopsy so performed 1 on December 17, 2019 and it appeared that he had at least a smoldering myeloma with small lytic lesions in both Humeral heads as well as the distal right femur. A PET/CT wich showed only a sternal lesion with uptake FDG with SUV 2.7 and no uptakein either femur or humeral heads. Findings are consistent with multiple myeloma and we will proceed with induction therapy. I sat with him and his Leisa and extensively reviewed the treatmtent plan as well as the risks and benefits. I anticipate 8-10 cycles of induction. I will discuss HCT with them at their next visit so as to not overwhelm them. He has mild neuropathy from poorly controlled diabetes and coronary artery calcification but otherwise has a well preserved performance status and could be appropriate despite being older than 65. RADIOGRAPHIC DATA: Reviewed on February 08, 2020 2. 02/01/2020 PET/CT: 1. NECK: No FDG avid neoplastic process. 2. CHEST: No FDG avid neoplastic process. 3. ABDOMEN/PELVIS: No FDG avid neoplastic process. 4. EXTREMITIES/SKELETON: * 1.2 cm mildly FDG-avid lytic lesion in the sternum with SUV max of 2.7, may represent a site of active myeloma. * No FDG avid destructive osseous lesions elsewhere. Specifically, no hypermetabolic lesions in humeral heads or femurs. 1. 06/08/2019 Bone Survey: Lytic lesions involving bilateral humeral heads and distal right femur PATHOLOGIC PROFILE/MOLECULAR DATA: Reviewed on 02/08/2020 1. 12/17/2019 bone marrow biopsy and aspirate: Bone marrow, aspirate smear and core biopsy, with clot section and peripheral blood: Involved by plasma cell neoplasm with 5 to 10% plasma cells. Normocellular bone marrow 20% with trilineage hematopoiesis. Stainable iron present. Comment the patient has a history of IgG lambda monoclonal protein. The bone marrow shows involvement by a plasma cell neoplasm with 3% plasma cells in the aspirate smear and 5 to 10% plasma cells byimmunohistochemistry. Final classification of plasma cell neoplasms require correlation with additional clinical laboratory and/or radiologic findings. FISH for plasma cell neoplasm: Findings demonstrated plasma cell population with trisomy 9, [id number] and gain of genetic material at the CCN D1 locus or trisomy 11. These findings are consistent with the presence of a plasma cell neoplasm and represent standard risk disease. Cytogenetics: Normal male karyotype 46, XY 20 REVIEW OF SYSTEMS Per HPI and otherwise negative by full review of organ systems. ECOG PERFORMANCE STATUS: 0 PHYSICAL EXAMINATION: Vitals: BP 136/68 Pulse 67 Temp (Src) 97.9 (Temporal) Resp 16 Ht 5' 11.496 (1.82m) Wt 234 lb 3.2 oz (106.2kg) SpO2 96% BMI 32.21 kg/(m^2). Body surface area is 2.31 meters squared. Exam limited to gross visualization where appropriate due to COVID-19. Gen.: This is an age-appropriate patient in no acute distress. Head: Appears atraumatic with no visible lesions. Eyes: Pupils equally round and reactive to light, extraocular muscles are intact. Neck: Supple. Mouth: Mucous membranes appeared to be moist. Respiratory: Appears to be respiring comfortably. Neurologic: Nonfocal to gross visualization. Alert and oriented 3. Psychiatric: No evidence of inappropriate anxiety or depression. Skin: Visible areas of skin without rash, lesions, wounds or petechiae. ALLERGIES: ALLERGIES No Known Allergies MEDICATIONS: triamcinolone acetonide (KENALOG) 0.1 % ointment ciprofloxacin HCl (CIPRO) 500 mg tablet ondansetron (ZOFRAN) 8 mg tablet traZODone (DESYREL) 100 mg tablet potassium chloride ER (K-DUR, KLOR-CON) 20 mEq tablet Take 1 tablet by mouth twice daily. simethicone, chewable (MYLICON) 80 mg chewable tablet Take 1 tablet by mouth every 6 hours as needed. aspirin, enteric coated (ASPIR-LOW) 81 mg EC tablet Take 1 tablet by mouth once daily. Please hold until told to resume by your oncologist rOPINIRole (REQUIP) 2 mg tablet Take 1 tablet by mouth daily at bedtime. prochlorperazine (COMPAZINE) 10 mg tablet Take 1 tablet by mouth every 4 hours as needed. FOR NAUSEA escitalopram oxalate (LEXAPRO) 10 mg tablet Take 1 tablet by mouth once daily. Cholecalciferol, Vitamin D3, (VITAMIN D) 25 mcg (1,000 unit) cap Take 2 capsules by mouth once daily. sodium chloride 0.9 %, flush, (BD POSIFLUSH) syringe Inject 10 mL intravenously once daily. BMT Patient. Flush each lumen daily. loperamide HCl (IMODIUM ORAL) Take by mouth. atorvastatin (LIPITOR) 10 mg tablet Take 10 mg by mouth once daily. cetirizine (ALL DAY ALLERGY) 10 mg tablet Take 10 mg by mouth once daily. dapagliflozin (FARXIGA) 10 mg tab Take 10 mg by mouth daily with breakfast. traMADol (ULTRAM) 50 mg tablet Take 50 mg by mouth every 6 hours as needed. metFORMIN 1,000 mg tablet Take 1,000 mg by mouth twice daily with meals. glipiZIDE 10 mg tablet Take 10 mg by mouth once daily. lenalidomide (REVLIMID) 5 mg capsule Take 1 capsule (5 mg) by mouth once daily. diphenoxylate-atropine (LOMOTIL) 2.5-0.025 mg per tablet Take 1 tablet by mouth four times daily asneeded for diarrhea for up to 15 days. gabapentin (NEURONTIN) 100 mg capsule Take 1 capsule by mouth daily at bedtime for 30 days. LABORATORY VALUES: WBC (k/uL) Date Value 07/30/2021 4.66 RBC (m/uL) Date Value 07/30/2021 4.16 (L) Hemoglobin (g/dL) Date Value 07/30/2021 12.9 (L) Hematocrit (%) Date Value 07/30/2021 38.3 (L) MCV (fL) Date Value 07/30/2021 92.1 MCH (pg) Date Value 07/30/2021 31.0 MCHC (g/dL) Date Value 07/30/2021 33.7 RDW-CV (%) Date Value 07/30/2021 13.5 Platelet Count (k/uL) Date Value 07/30/2021 100 (L) MPV (fL) Date Value 07/30/2021 9.0 Glucose (mg/dL) Date Value 07/30/2021 209 (H) BUN (mg/dL) Date Value 07/30/2021 22 Creatinine (mg/dL) Date Value 07/30/2021 1.09 Sodium (mmol/L) Date Value 07/30/2021 139 Potassium (mmol/L) Date Value 07/30/2021 4.1 Chloride (mmol/L) Date Value 07/30/2021 104 CO2 (mmol/L) Date Value 07/30/2021 25 Protein, Total (g/dL) Date Value 07/30/2021 6.6 07/30/2021 6.5 Albumin (g/dL) Date Value 07/30/2021 4.2 Calcium, Total (mg/dL) Date Value 07/30/2021 9.7 Alkaline Phosphatase (U/L) Date Value 07/30/2021 95 Bilirubin, Total (mg/dL) Date Value 07/30/2021 0.4 AST (U/L) Date Value 07/30/2021 18 ALT (U/L) Date Value 07/30/2021 22 M-Protein Concentration Date Value 07/30/2021 0.33 g/dL 07/02/2021 0.36 gm/dL 06/04/2021 0.31 gm/dL 04/17/2021 0.35 gm/dL 02/26/2021 0.37 gm/dL 12/26/2020 0.62 gm/dL DIAGNOSIS: (C90.00) Multiple myeloma not having achieved remission (HCC) (primary encounter diagnosis) Plan: B2 MICROGLOBULIN B, CBC + DIFF, COMP METABOLIC PANEL, LD LACTATE DEHYDRO, PHOSPHORUS INORGANIC, PROTEIN ELECTROPHORESIS SERUM W/INTERP, MONOCLONAL PROTEIN, SERUM (BLOOD), URIC ACID BLOOD, CALCIUM IONIZED B, KAPPA/ORTIZ,FREE,SER, DISCONTINUED: lenalidomide (REVLIMID) 5 mg capsule (Z94.81) 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[facility]) Plan: B2 MICROGLOBULIN B, CBC + DIFF, COMP METABOLIC PANEL, LD LACTATE DEHYDRO, PHOSPHORUS INORGANIC, PROTEIN ELECTROPHORESIS SERUM W/INTERP, MONOCLONAL PROTEIN, SERUM (BLOOD), URIC ACID BLOOD, CALCIUM IONIZED B, KAPPA/ORTIZ,FREE,SER, DISCONTINUED: lenalidomide (REVLIMID) 5 mg capsule (Z94.81) Autologous bone marrow transplantation status ([facility]) Plan: PROTEIN ELECTROPHORESIS SERUM W/INTERP, DISCONTINUED: lenalidomide (REVLIMID) 5 mg capsule (K52.29) Dietetic diarrhea Plan: CONSULT TO ONCOLOGY NUTRITION, PROTEIN ELECTROPHORESIS SERUM W/INTERP PAST MEDICAL HISTORY Diagnosis Date Allergic rhinitis Biceps rupture, proximal 04/09/2014 Bicipital tenosynovitis 11/01/2013 Chronic pain COVID-19 06/11/2020 positive test 06/13/20 Depression 09/18/2020 Continue home dose of lexapro Elevated blood protein elevated MGUS Generalized anxiety disorder Glaucoma Hypercholesteremia 09/17/2020 Hold Lipitor inpatient Hyperlipemia Hypertension Leukocytosis Multiple myeloma (HCC) 09/17/2020 6 Cycles RVD (February 2020 through August 2020) in a [place] Multiple myeloma not having achieved remission ([facility]) 02/04/2020 Neuropathy 08/20/2020 Continue home Gabapentin Obesity Restless leg syndrome 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 Protocol(s): 3422 1C Preparative regimen: Melphalan Mobilization regimen: plerixafor & neupogenStem cell source: apheresis CD34 cell dose (x10e6/kg): 4.05 Date of transplant: 09/19/20 Type 2 diabetes ([facility]) 08/20/2020 Takes metformin, Lantus, victoza & Farxiga Sliding Scale inpatient & Lantus Plan: -Endo following, recs in dc instructions for home Type II or unspecified type diabetes mellitus without mention of complication, uncontrolled PAST SURGICAL HISTORY Procedure Laterality Date EXTENSIVE FINGER SURGERY Right FOOT/TOES SURGERY PROC UNLISTED Left hammer toes and bunions PALATOP CL PALATE ATTACHMENT PHARYNGEAL FLAP age 5 SHOULDER SURGERY HX Left tendon repair Social History Tobacco Use Smoking status: Former Smoker Packs/day: 1.00 Years: 40.00 Pack years: 40.00 Smokeless tobacco: Never Used Tobacco comment: 03/30/2018 Vaping Use Vaping Use: Never used Substance Use Topics Alcohol use: Yes Comment: occassional Drug use: Yes Types: Marijuana Comment: THC edibles, 3x a week FAMILY HISTORY Problem Relation Age of Onset Cancer Mother brain 76 y/o Heart disease Mother Hypertension Mother Diabetes Father Heart disease Father Hypertension Father Heart Attack Father Diabetes Sister other (atrial fib) Sister COPD Sister No Known Problems Sister other (polio) Maternal Grandfather Diabetes Paternal Grandmother No Known Problems Daughter Vimal Crandall MD, CPE [facility] [place], [place] CC: MD Sana Oro DO Larry McCormick documented in this encounterC[facility]02-[facility] Evaluation note* Encounter Date Diagnosis Assessment Notes Treatment Notes Treatment Clinical Notes Jun, Diarrhea (ICD-10 - R19.7) PATIENT IS ADVISED WE WILL PROCEED WITH COLON AT THIS TIME. PATIENT ADVISED WE WILL ORDER LABS AT THIS TIME. [place] [employer] Other 05-22-2021 History of Past illness Narrative* Problem Noted Date Resolved Date Diarrhea 09/27/2020 10/04/2020 Overview: Improved C. Diff negative Plan: - prn Immodium Biceps rupture, proximal 04/09/2014 021 Bicipital tenosynovitis 11/01/2013 08/21/19 21 documented as of this encounter (statuses as of 07/31/2021) [facility] History of Past illness Narrative* Problem Noted Date Resolved Date Diarrhea 09/27/2020 10/04/2020 Overview: Improved C. Diff negative Plan: - prn Immodium Biceps rupture, proximal 04/09/2014 021 Bicipital tenosynovitis 11/01/2013 08/21/19 21 documented as of this encounter (statuses as of 07/31/2021) [facility] History of Past illness Narrative* Problem Noted Date Resolved Date Diarrhea 09/27/2020 10/04/2020 Overview: Improved C. Diff negative Plan: - prn Immodium Biceps rupture, proximal 04/09/2014 021 Bicipital tenosynovitis 11/01/2013 08/21/19 21 documented as of this encounter (statuses as of 08/03/2021) [facility] History of Past illness Narrative* Problem Noted Date Resolved Date Diarrhea 09/27/2020 10/04/2020 Overview: Improved C. Diff negative Plan: - prn Immodium Biceps rupture, proximal 04/09/2014 021 Bicipital tenosynovitis 11/01/2013 08/21/19 21 documented as of this encounter (statuses as of 08/30/2021) [facility] of Past illness Narrative* Problem Noted Date Resolved Date Diarrhea 09/27/2020 10/04/2020 Overview: Improved C. Diff negative Plan: - prn Immodium Biceps rupture, proximal 04/09/2014 021 Bicipital tenosynovitis 11/01/2013 08/21/19 21 documented as of this encounter (statuses as of 09/01/2021) [facility] of Past illness Narrative* Problem Noted Date Resolved Date Diarrhea 09/27/2020 10/04/2020 Overview: Improved C. Diff negative Plan: - prn Immodium Biceps rupture, proximal 04/09/2014 021 Bicipital tenosynovitis 11/01/2013 08/21/19 21 documented as of this encounter (statuses as of 09/01/2021) [facility] of Past illness Narrative* Problem Noted Date Resolved Date Diarrhea 09/27/2020 10/04/2020 Overview: Improved C. Diff negative Plan: - prn Immodium Biceps rupture, proximal 04/09/2014 021 Bicipital tenosynovitis 11/01/2013 08/21/19 21 documented as of this encounter (statuses as of 09/28/2021) [facility] of [facility] illness Narrative* Problem Noted Date Resolved Date Diarrhea 09/27/2020 10/04/2020 Overview: Improved C. Diff negative Plan: - prn Immodium Biceps rupture, proximal 04/09/2014 021 Bicipital tenosynovitis 11/01/2013 08/21/19 21 documented as of this encounter (statuses as of 10/23/2021) [facility] of [facility] illness Narrative* Problem Noted Date Resolved Date Diarrhea 09/27/2020 10/04/2020 Overview: Improved C. Diff negative Plan: - prn Immodium Biceps rupture, proximal 04/09/2014 021 Bicipital tenosynovitis 11/01/2013 08/21/19 21 documented as of this encounter (statuses as of 10/27/2021) [facility] of [facility] illness Narrative* Problem Noted Date Resolved Date Diarrhea 09/27/2020 10/04/2020 Overview: Improved C. Diff negative Plan: - prn Immodium Biceps rupture, proximal 04/09/2014 021 Bicipital tenosynovitis 11/01/2013 08/21/19 21 documented as of this encounter (statuses as of 11/20/2021) [facility] of [facility] illness Narrative* Problem Noted Date Resolved Date Diarrhea 09/27/2020 10/04/2020 Overview: Improved C. Diff negative Plan: - prn Immodium Biceps rupture, proximal 04/09/2014 021 Bicipital tenosynovitis 11/01/2013 08/21/19 21 documented as of this encounter (statuses as of 11/20/2021) [facility] of [facility] illness Narrative* Problem Noted Date Resolved Date Diarrhea 09/27/2020 10/04/2020 Overview: Improved C. Diff negative Plan: - prn Immodium Biceps rupture, proximal 04/09/2014 021 Bicipital tenosynovitis 11/01/2013 08/21/19 21 documented as of this encounter (statuses as of 11/24/2021) [facility] of [facility] illness Narrative* Problem Noted Date Resolved Date Diarrhea 09/27/2020 10/04/2020 Overview: Improved C. Diff negative Plan: - prn Immodium Biceps rupture, proximal 04/09/2014 021 Bicipital tenosynovitis 11/01/2013 08/21/19 21 documented as of this encounter (statuses as of 11/26/2021) [facility] of [facility] illness Narrative* Problem Noted Date Resolved Date Diarrhea 09/27/2020 10/04/2020 Overview: Improved C. Diff negative Plan: - prn Immodium Biceps rupture, proximal 04/09/2014 021 Bicipital tenosynovitis 11/01/2013 08/21/19 21 documented as of this encounter (statuses as of 12/03/2021) [facility]05-22-2021 History of Past illness Narrative* Problem Noted Date Resolved Date Diarrhea 09/27/2020 10/04/2020 Overview: Improved C. Diff negative Plan: - prn Immodium Biceps rupture, proximal 04/09/2014 021 Bicipital tenosynovitis 11/01/2013 08/21/19 21 documented as of this encounter (statuses as of 12/27/2021) [facility]-2021 History of Past illness Narrative* Problem Noted Date Resolved Date Diarrhea 09/27/2020 10/04/2020 Overview: Improved C. Diff negative Plan: - prn Immodium Biceps rupture, proximal 04/09/2014 021 Bicipital tenosynovitis 11/01/2013 08/21/19 21 documented as of this encounter (statuses as of 01/03/2022) [facility]-2021 History of Past illness Narrative* Problem Noted Date Resolved Date Diarrhea 09/27/2020 10/04/2020 Overview: Improved C. Diff negative Plan: - prn Immodium Biceps rupture, proximal 04/09/2014 021 Bicipital tenosynovitis 11/01/2013 08/21/19 21 documented as of this encounter (statuses as of 01/12/2022) [facility]2021 History of Past illness Narrative* Problem Noted Date Resolved Date Diarrhea 09/27/2020 10/04/2020 Overview: Improved C. Diff negative Plan: - prn Immodium Biceps rupture, proximal 04/09/2014 021 Bicipital tenosynovitis 11/01/2013 08/21/19 21 documented as of this encounter (statuses as of 01/18/2022) [facility]2021 History of Past illness Narrative* Problem Noted Date Resolved Date Diarrhea 09/27/2020 10/04/2020 Overview: Improved C. Diff negative Plan: - prn Immodium Biceps rupture, proximal 04/09/2014 021 Bicipital tenosynovitis 11/01/2013 08/21/19 21 documented as of this encounter (statuses as of 02/02/2022) [facility]2021 History of Past illness Narrative* Problem Noted Date Resolved Date Diarrhea 09/27/2020 10/04/2020 Overview: Improved C. Diff negative Plan: - prn Immodium Biceps rupture, proximal 04/09/2014 021 Bicipital tenosynovitis 11/01/2013 08/21/19 21 documented as of this encounter (statuses as of 02/19/2022) [facility]21 History of Past illness Narrative* Problem Noted Date Resolved Date Diarrhea 09/27/2020 10/04/2020 Overview: Improved C. Diff negative Plan: - prn Immodium Biceps rupture, proximal 04/09/2014 021 Bicipital tenosynovitis 11/01/2013 08/21/19 21 documented as of this encounter (statuses as of 03/04/2022) [facility]21 History of Past illness Narrative* Problem Noted Date Resolved Date Diarrhea 09/27/2020 10/04/2020 Overview: Improved C. Diff negative Plan: - prn Immodium Biceps rupture, proximal 04/09/2014 021 Bicipital tenosynovitis 11/01/2013 08/21/19 21 documented as of this encounter (statuses as of 03/19/2022) [facility] History of Past illness Narrative* Problem Noted Date Resolved Date Diarrhea 09/27/2020 10/04/2020 Overview: Improved C. Diff negative Plan: - prn Immodium Biceps rupture, proximal 04/09/2014 021 Bicipital tenosynovitis 11/01/2013 08/21/19 21 documented as of this encounter (statuses as of 03/21/2022) [facility] History of Past illness Narrative* Problem Noted Date Resolved Date Diarrhea 09/27/2020 10/04/2020 Overview: Improved C. Diff negative Plan: - prn Immodium Biceps rupture, proximal 04/09/2014 021 Bicipital tenosynovitis 11/01/2013 08/21/19 21 documented as of this encounter (statuses as of 03/21/2022) [facility] History of Past illness Narrative* Problem Noted Date Resolved Date Diarrhea 09/27/2020 10/04/2020 Overview: Improved C. Diff negative Plan: - prn Immodium Biceps rupture, proximal 04/09/2014 021 Bicipital tenosynovitis 11/01/2013 08/21/19 21 documented as of this encounter (statuses as of 04/14/2022) [facility]21 History of Past illness Narrative* Problem Noted Date Resolved Date Diarrhea 09/27/2020 10/04/2020 Overview: Improved C. Diff negative Plan: - prn Immodium Biceps rupture, proximal 04/09/2014 021 Bicipital tenosynovitis 11/01/2013 08/21/19 21 documented as of this encounter (statuses as of 05/14/2022) [facility] History of Past illness Narrative* Problem Noted Date Resolved Date Diarrhea 09/27/2020 10/04/2020 Overview: Improved C. Diff negative Plan: - prn Immodium Biceps rupture, proximal 04/09/2014 021 Bicipital tenosynovitis 11/01/2013 08/21/19 21 documented as of this encounter (statuses as of 05/20/2022) [facility] History of Past illness Narrative* Problem Noted Date Resolved Date Diarrhea 09/27/2020 10/04/2020 Overview: Improved C. Diff negative Plan: - prn Immodium Biceps rupture, proximal 04/09/2014 021 Bicipital tenosynovitis 11/01/2013 08/21/19 21 documented as of this encounter (statuses as of 06/09/2022) [facility] History of Past illness Narrative* Problem Noted Date Resolved Date Diarrhea 09/27/2020 10/04/2020 Overview: Improved C. Diff negative Plan: - prn Immodium Biceps rupture, proximal 04/09/2014 021 Bicipital tenosynovitis 11/01/2013 08/21/19 21 documented as of this encounter (statuses as of 06/09/2022) [facility] History of Past illness Narrative* Problem Noted Date Resolved Date Diarrhea 09/27/2020 10/04/2020 Overview: Improved C. Diff negative Plan: - prn Immodium Biceps rupture, proximal 04/09/2014 021 Bicipital tenosynovitis 11/01/2013 08/21/19 21 documented as of this encounter (statuses as of 06/11/2022) [facility]2021 History of Past illness Narrative* Problem Noted Date Resolved Date Diarrhea 09/27/2020 10/04/2020 Overview: Improved C. Diff negative Plan: - prn Immodium Biceps rupture, proximal 04/09/2014 021 Bicipital tenosynovitis 11/01/2013 08/21/19 21 documented as of this encounter (statuses as of 06/12/2022) [facility]2021 History of Past illness Narrative* Problem Noted Date Resolved Date Diarrhea 09/27/2020 10/04/2020 Overview: Improved C. Diff negative Plan: - prn Immodium Biceps rupture, proximal 04/09/2014 021 Bicipital tenosynovitis 11/01/2013 08/21/19 21 documented as of this encounter (statuses as of 06/23/2022) [facility] History of Past illness Narrative* Problem Noted Date Resolved Date Diarrhea 09/27/2020 10/04/2020 Overview: Improved C. Diff negative Plan: - prn Immodium Biceps rupture, proximal 04/09/2014 021 Bicipital tenosynovitis 11/01/2013 08/21/19 21 documented as of this encounter (statuses as of 07/02/2022) [facility] History of Past illness Narrative* Problem Noted Date Resolved Date Diarrhea 09/27/2020 10/04/2020 Overview: Improved C. Diff negative Plan: - prn Immodium Biceps rupture, proximal 04/09/2014 021 Bicipital tenosynovitis 11/01/2013 08/21/19 21 documented as of this encounter (statuses as of 07/07/2022) [facility]21 History of Past illness Narrative* Problem Noted Date Resolved Date Diarrhea 09/27/2020 10/04/2020 Overview: Improved C. Diff negative Plan: - prn Immodium Biceps rupture, proximal 04/09/2014 021 Bicipital tenosynovitis 11/01/2013 08/21/19 21 documented as of this encounter (statuses as of 07/07/2022) [facility] History of Past illness Narrative* Problem Noted Date Resolved Date Diarrhea 09/27/2020 10/04/2020 Overview: Improved C. Diff negative Plan: - prn Immodium Biceps rupture, proximal 04/09/2014 021 Bicipital tenosynovitis 11/01/2013 08/21/19 21 documented as of this encounter (statuses as of 08/06/2022) [facility] History of Past illness Narrative* Problem Noted Date Resolved Date Diarrhea 09/27/2020 10/04/2020 Overview: Improved C. Diff negative Plan: - prn Immodium Biceps rupture, proximal 04/09/2014 021 Bicipital tenosynovitis 11/01/2013 08/21/19 21 documented as of this encounter (statuses as of 08/09/2022) [place] [address]-22-2021 History of Past illness Narrative* Problem Noted Date Resolved Date Diarrhea 09/27/2020 10/04/2020 Overview: Improved C. Diff negative Plan: - prn Immodium Biceps rupture, proximal 04/09/2014 021 Bicipital tenosynovitis 11/01/2013 08/21/19 21 documented as of this encounter (statuses as of 08/11/2022) [facility] History of Past illness Narrative* Problem Noted Date Resolved Date Diarrhea 09/27/2020 10/04/2020 Overview: Improved C. Diff negative Plan: - prn Immodium Biceps rupture, proximal 04/09/2014 021 Bicipital tenosynovitis 11/01/2013 08/21/19 21 documented as of this encounter (statuses as of 08/13/2022) [facility]21 History of Past illness Narrative* Problem Noted Date Resolved Date Diarrhea 09/27/2020 10/04/2020 Overview: Improved C. Diff negative Plan: - prn Immodium Biceps rupture, proximal 04/09/2014 021 Bicipital tenosynovitis 11/01/2013 08/21/19 21 documented as of this encounter (statuses as of 09/03/2022) [facility] History of Past illness Narrative* Problem Noted Date Resolved Date Diarrhea 09/27/2020 10/04/2020 Overview: Improved C. Diff negative Plan: - prn Immodium Biceps rupture, proximal 04/09/2014 021 Bicipital tenosynovitis 11/01/2013 08/21/19 21 documented as of this encounter (statuses as of 09/12/2022) [facility]2021 History of Past illness Narrative* Problem Noted Date Resolved Date Diarrhea 09/27/2020 10/04/2020 Overview: Improved C. Diff negative Plan: - prn Immodium Biceps rupture, proximal 04/09/2014 021 Bicipital tenosynovitis 11/01/2013 08/21/19 21 documented as of this encounter (statuses as of 09/18/2022) [facility]2021 History of Past illness Narrative* Problem Noted Date Resolved Date Diarrhea 09/27/2020 10/04/2020 Overview: Improved C. Diff negative Plan: - prn Immodium Biceps rupture, proximal 04/09/2014 021 Bicipital tenosynovitis 11/01/2013 08/21/19 21 documented as of this encounter (statuses as of 10/08/2022) [facility]2021 History of Past illness Narrative* Problem Noted Date Resolved Date Diarrhea 09/27/2020 10/04/2020 Overview: Improved C. Diff negative Plan: - prn Immodium Biceps rupture, proximal 04/09/2014 021 Bicipital tenosynovitis 11/01/2013 08/21/19 21 documented as of this encounter (statuses as of 10/22/2022) [facility]2021 History of Past illness Narrative* Problem Noted Date Resolved Date Diarrhea 09/27/2020 10/04/2020 Overview: Improved C. Diff negative Plan: - prn Immodium Biceps rupture, proximal 04/09/2014 021 Bicipital tenosynovitis 11/01/2013 08/21/19 21 documented as of this encounter (statuses as of 10/23/2022) [facility] History of Past illness Narrative* Problem Noted Date Diagnosed Date Resolved Date Diarrhea 09/27/2020 10/04/2020 Overview: Improved C. Diff negative Plan: - prn Immodium Biceps rupture, proximal 04/09/2014 Bicipital tenosynovitis 11/01/201308/07 documented as of this encounter (statuses as of 11/13/2022) [facility] History of Past illness Narrative* Problem Noted Date Diagnosed Date Resolved Date Diarrhea 09/27/2020 10/04/2020 Overview: Improved C. Diff negative Plan: - prn Immodium Biceps rupture, proximal 04/09/2014 Bicipital tenosynovitis 11/01/201308/07 documented as of this encounter (statuses as of 11/28/2022) [facility] History of Past illness Narrative* Problem Noted Date Diagnosed Date Resolved Date Diarrhea 09/27/2020 10/04/2020 Overview: Improved C. Diff negative Plan: - prn Immodium Biceps rupture, proximal 04/09/2014 Bicipital tenosynovitis 11/01/201308/07 documented as of this encounter (statuses as of 12/23/2022) [facility] History of Past illness Narrative* Problem Noted Date Diagnosed Date Resolved Date Diarrhea 09/27/2020 10/04/2020 Overview: Improved C. Diff negative Plan: - prn Immodium Biceps rupture, proximal 04/09/2014 Bicipital tenosynovitis 11/01/201308/07 documented as of this encounter (statuses as of 01/14/2023) [facility] History of Past illness Narrative* Problem Noted Date Diagnosed Date Resolved Date Diarrhea 09/27/2020 10/04/2020 Overview: Improved C. Diff negative Plan: - prn Immodium Biceps rupture, proximal 04/09/2014 Bicipital tenosynovitis 11/01/201308/07 documented as of this encounter (statuses as of 01/14/2023) [facility] History of Past illness Narrative* Problem Noted Date Diagnosed Date Resolved Date Diarrhea 09/27/2020 10/04/2020 Overview: Improved C. Diff negative Plan: - prn Immodium Biceps rupture, proximal 04/09/2014 04/ Bicipital tenosynovitis 11/01/201308/07 documented as of this encounter (statuses as of 01/14/2023) [facility] History of Past illness Narrative* Problem Noted Date Diagnosed Date Resolved Date Diarrhea 09/27/2020 10/04/2020 Overview: Improved C. Diff negative Plan: - prn Immodium Biceps rupture, proximal 04/09/2014 Bicipital tenosynovitis 11/01/201308/07 documented as of this encounter (statuses as of 01/18/2023) [facility] History of Past illness Narrative* Problem Noted Date Diagnosed Date Resolved Date Diarrhea 09/27/2020 10/04/2020 Overview: Improved C. Diff negative Plan: - prn Immodium Biceps rupture, proximal 04/09/2014 Bicipital tenosynovitis 11/01/201308/07 documented as of this encounter (statuses as of 01/19/2023) [facility] History of Past illness Narrative* Problem Noted Date Diagnosed Date Resolved Date Diarrhea 09/27/2020 10/04/2020 Overview: Improved C. Diff negative Plan: - prn Immodium Biceps rupture, proximal 04/09/2014 Bicipital tenosynovitis 11/01/201308/07 documented as of this encounter (statuses as of 01/19/2023) [facility] History of Past illness Narrative* Problem Noted Date Diagnosed Date Resolved Date Diarrhea 09/27/2020 10/04/2020 Overview: Improved C. Diff negative Plan: - prn Immodium Biceps rupture, proximal 04/09/2014 Bicipital tenosynovitis 11/01/201308/07 documented as of this encounter (statuses as of 01/19/2023) [facility] History of Past illness Narrative* Problem Noted Date Diagnosed Date Resolved Date Diarrhea 09/27/2020 10/04/2020 Overview: Improved C. Diff negative Plan: - prn Immodium Biceps rupture, proximal 04/09/2014 Bicipital tenosynovitis 11/01/201308/07 documented as of this encounter (statuses as of 01/21/2023) [facility] History of Past illness Narrative* Problem Noted Date Diagnosed Date Resolved Date Diarrhea 09/27/2020 10/04/2020 Overview: Improved C. Diff negative Plan: - prn Immodium Biceps rupture, proximal 04/09/2014 Bicipital tenosynovitis 11/01/201308/07 documented as of this encounter (statuses as of 01/27/2023) [facility] History of Past illness Narrative* Problem Noted Date Diagnosed Date Resolved Date Diarrhea 09/27/2020 10/04/2020 Overview: Improved C. Diff negative Plan: - prn Immodium Biceps rupture, proximal 04/09/2014 Bicipital tenosynovitis 11/01/201308/07 documented as of this encounter (statuses as of 02/16/2023) [facility] History of Past illness Narrative* Problem Noted Date Diagnosed Date Resolved Date Diarrhea 09/27/2020 10/04/2020 Overview: Improved C. Diff negative Plan: - prn Immodium Biceps rupture, proximal 04/09/2014 Bicipital tenosynovitis 11/01/201308/07 documented as of this encounter (statuses as of 02/16/2023) [facility] History of Past illness Narrative* Problem Noted Date Diagnosed Date Resolved Date Diarrhea 09/27/2020 10/04/2020 Overview: Improved C. Diff negative Plan: - prn Immodium Biceps rupture, proximal 04/09/2014 Bicipital tenosynovitis 11/01/201308/07 documented as of this encounter (statuses as of 02/22/2023) [facility] History of Past illness Narrative* Problem Noted Date Diagnosed Date Resolved Date Diarrhea 09/27/2020 10/04/2020 Overview: Improved C. Diff negative Plan: - prn Immodium Biceps rupture, proximal 04/09/2014 Bicipital tenosynovitis 11/01/201308/07 documented as of this encounter (statuses as of 02/23/2023) [facility] History of Past illness Narrative* Problem Noted Date Diagnosed Date Resolved Date Diarrhea 09/27/2020 10/04/2020 Overview: Improved C. Diff negative Plan: - prn Immodium Biceps rupture, proximal 04/09/2014 Bicipital tenosynovitis 11/01/201308/07 documented as of this encounter (statuses as of 02/25/2023) [facility] History of Past illness Narrative* Problem Noted Date Diagnosed Date Resolved Date Diarrhea 09/27/2020 10/04/2020 Overview: Improved C. Diff negative Plan: - prn Immodium Biceps rupture, proximal 04/09/2014 Bicipital tenosynovitis 11/01/201308/07 documented as of this encounter (statuses as of 03/15/2023) [facility] History of Past illness Narrative* Problem Noted Date Diagnosed Date Resolved Date Diarrhea 09/27/2020 10/04/2020 Overview: Improved C. Diff negative Plan: - prn Immodium Biceps rupture, proximal 04/09/2014 Bicipital tenosynovitis 11/01/201308/07 documented as of this encounter (statuses as of 03/17/2023) [facility] History of Past illness Narrative* Problem Noted Date Diagnosed Date Resolved Date Diarrhea 09/27/2020 10/04/2020 Overview: Improved C. Diff negative Plan: - prn Immodium Biceps rupture, proximal 04/09/2014 Bicipital tenosynovitis 11/01/201308/07 documented as of this encounter (statuses as of 03/23/2023) [facility] History of Past illness Narrative* Problem Noted Date Diagnosed Date Resolved Date Diarrhea 09/27/2020 10/04/2020 Overview: Improved C. Diff negative Plan: - prn Immodium Biceps rupture, proximal 04/09/2014 Bicipital tenosynovitis 11/01/201308/07 documented as of this encounter (statuses as of 03/23/2023) [facility] History of Past illness Narrative* Problem Noted Date Diagnosed Date Resolved Date Diarrhea 09/27/2020 10/04/2020 Overview: Improved C. Diff negative Plan: - prn Immodium Biceps rupture, proximal 04/09/2014 Bicipital tenosynovitis 11/01/201308/07 documented as of this encounter (statuses as of 03/24/2023) [facility] History of Past illness Narrative* Problem Noted Date Diagnosed Date Resolved Date Diarrhea 09/27/2020 10/04/2020 Overview: Improved C. Diff negative Plan: - prn Immodium Biceps rupture, proximal 04/09/2014 Bicipital tenosynovitis 11/01/201308/07 documented as of this encounter (statuses as of 04/16/2023) [facility] History of Past illness Narrative* Problem Noted Date Diagnosed Date Resolved Date Diarrhea 09/27/2020 10/04/2020 Overview: Improved C. Diff negative Plan: - prn Immodium Biceps rupture, proximal 04/09/2014 Bicipital tenosynovitis 11/01/201308/07 documented as of this encounter (statuses as of 06/16/2023) [facility] History of Past illness Narrative* Problem Noted Date Diagnosed Date Resolved Date Diarrhea 09/27/2020 10/04/2020 Overview: Improved C. Diff negative Plan: - prn Immodium Biceps rupture, proximal 04/09/2014 Bicipital tenosynovitis 11/01/201308/07 documented as of this encounter (statuses as of 06/17/2023) [facility] History of Past illness Narrative* Problem Noted Date Diagnosed Date Resolved Date Diarrhea 09/27/2020 10/04/2020 Overview: Improved C. Diff negative Plan: - prn Immodium Biceps rupture, proximal 04/09/2014 Bicipital tenosynovitis 11/01/201308/07 documented as of this encounter (statuses as of 07/09/2023) [facility] History of Past illness Narrative* Problem Noted Date Diagnosed Date Resolved Date Diarrhea 09/27/2020 10/04/2020 Overview: Improved C. Diff negative Plan: - prn Immodium Biceps rupture, proximal 04/09/2014 Bicipital tenosynovitis 11/01/201308/07 documented as of this encounter (statuses as of 07/15/2023) [facility] History of Past illness Narrative* Problem Noted Date Diagnosed Date Resolved Date Diarrhea 09/27/2020 10/04/2020 Overview: Improved C. 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) Bone marrow replaced by transplant documented in this encounter [facility] note* Diagnosis Multiple myeloma not having achieved remission (HCC)- Primary Multiple myeloma, without mention of having achieved remission 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 Autologous bone marrow transplantation status (HCC) Bone marrow replaced by transplant Dietetic diarrhea Diarrhea documented in this encounter [facility] note* Diagnosis Multiple myeloma not having achieved remission (HCC) Multiple myeloma, without mention of having achieved remission 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 Autologous bone marrow transplantation status (HCC) Bone marrow replaced by transplant documented in this encounter [facility] note* Diagnosis Multiple myeloma not having achieved remission (HCC) Multiple myeloma, without mention of having achieved remission 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 Autologous bone marrow transplantation status (HCC) Bone marrow replaced by transplant documented in this encounter [facility] note* Diagnosis 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 Multiple myeloma not having achieved remission (HCC) Multiple myeloma, without mention of having achieved remission Autologous bone marrow transplantation status (HCC) Bone marrow replaced by transplant documented in this encounter [facility] note* Diagnosis 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 Multiple myeloma not having achieved remission (HCC) Multiple myeloma, without mention of having achieved remission Autologous bone marrow transplantation status (HCC) Bone marrow replaced by transplant documented in this encounter [facility] note* Diagnosis Multiple myeloma not having achieved remission (HCC)- Primary Multiple myeloma, without mention of having achieved remission 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 Renal insufficiency Unspecified disorder of kidney and ureter Immunodeficiency (HCC) Unspecified immunity deficiency Acute non-recurrent sinusitis, unspecified location documented in this encounter [facility] noteNo [id number] [facility] [employer] Other [facility] note* Diagnosis Mixed hyperlipidemia- Primary documented in this encounter [facility] note* Diagnosis 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 Multiple myeloma not having achieved remission (HCC) Multiple myeloma, without mention of having achieved remission Autologous bone marrow transplantation status (HCC) Bone marrow replaced by transplant [facility] Multiple myeloma not having achieved remission (HCC)- Primary Multiple myeloma, without mention of having achieved remission [facility]oma not having achieved remission (HCC)- Primary Multiple myeloma, without mention of having achieved remission 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 Immunodeficiency (HCC) Unspecified immunity deficiency Renal insufficiency Unspecified disorder of kidney and ureter [facility] [place] [facility] Diagnosis Multiple myeloma not having achieved remission (HCC)- Primary Multiple myeloma, without mention of having achieved remission 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 Immunodeficiency (HCC) Unspecified immunity deficiency Type 2 diabetes (HCC) [facility] assessment information availableK[facility] Work Phone: Evaluation note* Diagnosis Multiple myeloma not having achieved remission (HCC)- Primary Multiple myeloma, without mention of having achieved remission [facility] 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 Multiple myeloma not having achieved remission (HCC) Multiple myeloma, without mention of having achieved remission Autologous bone marrow transplantation status (HCC) 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 Multiple myeloma not having achieved remission (HCC) Multiple myeloma, without mention of having achieved remission Autologous bone marrow transplantation status (HCC) Bone marrow replaced by transplant [facility] [place] [facility]* Diagnosis 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 Multiple myeloma not having achieved remission (HCC) Multiple myeloma, without mention of having achieved remission Autologous bone marrow transplantation status (HCC) Bone marrow replaced by transplant [facility] 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 Multiple myeloma not having achieved remission (HCC) Multiple myeloma, without mention of having achieved remission Autologous bone marrow transplantation status (HCC) Bone marrow replaced by transplant [facility] S/P autologous bone marrow transplantation (HCC)- Primary Bone marrow replaced by transplant Multiple myeloma not having achieved remission (HCC) Multiple myeloma, without mention of having achieved remission Immunodeficiency (HCC) Unspecified immunity deficiency Type 2 diabetes (HCC) Renal insufficiency Unspecified disorder of kidney and ureter Autologous bone marrow transplantation status (HCC) Bone [facility] replaced by [facility] Multiple myeloma not having achieved remission (HCC)- Primary Multiple myeloma, without mention of having achieved remission 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 Immunodeficiency (HCC) Unspecified immunity deficiency Type 2 diabetes (HCC) Renal insufficiency Unspecified disorder of kidney and ureter Essential hypertension Unspecified essential hypertension Pancytopenia (HCC) Other pancytopenia [facility] Renal insufficiency- Primary Unspecified disorder of kidney and ureter [facility] Diagnosis Diabetes mellitus due to underlying condition with hyperglycemia, with long-term current use of insulin (HCC)- Primary Multiple myeloma not having achieved remission (HCC) Multiple myeloma, without mention of having achieved remission [facility] Diagnosis Multiple myeloma not having achieved remission (HCC)- Primary Multiple myeloma, without mention of having achieved remission Malnutrition of moderate degree (HCC) Malnutrition of moderate degree [facility] Multiple myeloma not having achieved remission (HCC)- Primary Multiple myeloma, without mention of having achieved remission Immunodeficiency (HCC) Unspecified immunity deficiency Type 2 diabetes (HCC) Renal insufficiency Unspecified disorder of kidney and ureter Thrombocytopenia, secondary Other secondary thrombocytopenia [facility] Diagnosis Multiple myeloma not having achieved remission (HCC)- Primary Multiple myeloma, without mention of having achieved remission Malnutrition of moderate degree (HCC) Malnutrition of moderate degree [facility] Diagnosis Multiple myeloma not having achieved remission (HCC)- Primary Multiple myeloma, without mention of having achieved remission Diabetes mellitus due to underlying condition with hyperglycemia, with long-term current use of insulin (HCC) Renal insufficiency Unspecified disorder of kidney and ureter Community acquired MRSA infection Methicillin resistant Staphylococcus aureus in conditions classified elsewhere and of unspecified site [facility] Diagnosis Multiple myeloma not having achieved remission (HCC)- Primary Multiple myeloma, without mention of having achieved remission Immunodeficiency (HCC) Unspecified immunity deficiency Type 2 diabetes (HCC) 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 Thrombocytopenia, secondary Other secondary thrombocytopenia Essential hypertension Unspecified essential hypertension [facility] Liver mass- Primary Unspecified disorder of liver Liver mass Unspecified disorder of liver [facility] Diagnosis Hepatocellular carcinoma (HCC)- Primary Malignant neoplasm of liver, primary Multiple myeloma not having achieved remission (HCC) Multiple myeloma, without mention of having achieved remission Type 2 diabetes (HCC) Platelets decreased (HCC) Thrombocytopenia, unspecified Recurrent major depression in remission (HCC) Major depressive disorder, recurrent episode, in partial or unspecified remission Malnutrition of moderate degree (HCC) Malnutrition of moderate degree [facility] Diagnosis Hepatocellular carcinoma (HCC)- Primary Malignant neoplasm of liver, primary Other abnormal tumor markers Other abnormal tumor markers [facility] [place] [facility] Diagnosis Hepatocellular carcinoma (HCC) Malignant neoplasm of liver, primary Acute post-operative pain [facility] [place] [facility]* Diagnosis Multiple myeloma not having achieved remission (HCC)- Primary Multiple myeloma, without mention of having achieved remission Hepatocellular carcinoma (HCC) Malignant neoplasm of liver, primary Platelets decreased (HCC) Thrombocytopenia, unspecified [facility] Diagnosis Hepatocellular carcinoma (HCC)- Primary Malignant neoplasm of liver, primary [facility] Diagnosis Multiple myeloma not having achieved remission (HCC)- Primary Multiple myeloma, without mention of having achieved remission Stage 3 chronic kidney disease, unspecified whether stage 3a or 3b CKD (HCC) Hepatocellular carcinoma (HCC) Malignant neoplasm of liver, primary Platelets decreased (HCC) Thrombocytopenia, unspecified Type 2 diabetes (HCC) 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 [facility] Diagnosis Multiple myeloma not having achieved remission (HCC)- Primary Multiple myeloma, without mention of having achieved remission Hepatocellular carcinoma (HCC) Malignant neoplasm of liver, primary Stage 3 chronic kidney disease, unspecified whether stage 3a or 3b CKD (HCC) Platelets decreased (HCC) Thrombocytopenia, unspecified 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 [facility] Diagnosis Hepatocellular carcinoma (HCC) Malignant neoplasm of liver, primary [facility] [place] [facility] Diagnosis Hepatocellular carcinoma (HCC)- Primary Malignant neoplasm of liver, primary [facility] Diagnosis Poorly controlled diabetes mellitus (HCC)- Primary Type II or unspecified type diabetes mellitus without mention of complication, not stated as uncontrolled Dietary counseling and surveillance Dietary surveillance and counseling Encounter for long-term (current) insulin use (HCC) Encounter for long-term (current) use of insulin Vitamin D deficiency Unspecified vitamin D deficiency [facility] Diagnosis Multiple myeloma not having achieved remission (HCC)- Primary Multiple myeloma, without mention of having achieved remission Hepatocellular carcinoma (HCC) Malignant neoplasm of liver, primary Stage 3 chronic kidney disease, unspecified whether stage 3a or 3b CKD (HCC) Platelets decreased (HCC) Thrombocytopenia, unspecified 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 [facility] [place] [facility]* Diagnosis Hepatocellular carcinoma (HCC)- Primary Malignant neoplasm of liver, primary [facility] [place] [facility]* Diagnosis Multiple myeloma not having achieved remission (HCC)- Primary Multiple myeloma, without mention of having achieved remission [facility] [place] [facility]* Diagnosis Follow-up examination after gastrointestinal surgery- Primary Follow-up examination, following other surgery Hepatocellular carcinoma (HCC) Malignant neoplasm of liver, primary Renal cyst, right Unspecified congenital cystic kidney disease Multiple myeloma not having achieved remission (HCC) Multiple myeloma, without mention of having achieved remission [facility] Diagnosis Multiple myeloma not having achieved remission (HCC)- Primary Multiple myeloma, without mention of having achieved remission [facility] Diagnosis Renal lesion- Primary Unspecified disorder of kidney and ureter [facility] [place] [facility]* Diagnosis Renal lesion Unspecified disorder of kidney and ureter [facility] Diagnosis Multiple myeloma not having achieved remission (HCC)- Primary Multiple myeloma, without mention of having achieved remission Claustrophobia Other isolated or specific phobias Pancytopenia (HCC) Other pancytopenia Hepatocellular carcinoma (HCC) Malignant neoplasm of liver, primary Stage 3 chronic kidney disease, unspecified whether stage 3a or 3b CKD (HCC) 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 Platelets decreased (HCC) Thrombocytopenia, unspecified Type 2 diabetes (HCC) Recurrent major depression in remission (HCC) Major depressive disorder, recurrent episode, in partial or unspecified remission [facility] [place] [facility] Diagnosis Multiple myeloma not having achieved remission (HCC)- Primary Multiple myeloma, without mention of having achieved remission [facility] [place] [facility]* Diagnosis Multiple myeloma not having achieved remission (HCC)- Primary Multiple myeloma, without mention of having achieved remission 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), type 2 with complications (HCC) Type II or unspecified type diabetes mellitus with unspecified complication, not stated as uncontrolled Hepatocellular carcinoma (HCC) Malignant neoplasm of liver, primary [facility] [place] [facility]* Diagnosis Left hand pain- Primary Pain in soft tissues of limb Trigger finger, left middle finger Trigger finger, left ring finger Trigger finger, left little finger documented in this encounter [facility]* Diagnosis Multiple myeloma not having achieved remission (HCC) Multiple myeloma, without mention of having achieved remission [facility] [place] [facility]* Diagnosis Multiple myeloma not having achieved remission (HCC)- Primary Multiple myeloma, without mention of having achieved remission 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), type 2 with complications (HCC) Type II or unspecified type diabetes mellitus with unspecified complication, not stated as uncontrolled Hepatocellular carcinoma (HCC) Malignant neoplasm of liver, primary Moderate episode of recurrent major depressive disorder (HCC) [facility] [place] [facility]* Diagnosis Multiple myeloma not having achieved remission (HCC)- Primary Multiple myeloma, without mention of having achieved remission 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), type 2 with complications (HCC) Type II or unspecified type diabetes mellitus with unspecified complication, not stated as uncontrolled Hepatocellular carcinoma (HCC) Malignant neoplasm of liver, primary Stage 3 chronic kidney disease, unspecified whether stage 3a or 3b CKD (HCC) [facility] [place] [facility]* Diagnosis Multiple myeloma not having achieved remission (HCC) Multiple myeloma, without mention of having achieved remission [facility] [place] [facility]* Diagnosis Claustrophobia- Primary Other isolated or specific phobias Multiple myeloma not having achieved remission (HCC) Multiple myeloma, without mention of having achieved remission [facility] [place] [facility]* Diagnosis Multiple myeloma not having achieved remission (HCC)- Primary Multiple myeloma, without mention of having achieved remission Hepatocellular carcinoma (HCC) Malignant neoplasm of liver, primary Multiple myeloma not having achieved remission (HCC) Multiple myeloma, without mention of having achieved remission [facility] Diagnosis Hepatocellular carcinoma (HCC) Malignant neoplasm of liver, primary Multiple myeloma not having achieved remission (HCC) Multiple myeloma, without mention of having achieved remission [facility] Diagnosis Claustrophobia Other isolated or specific phobias Multiple myeloma not having achieved remission (HCC) Multiple myeloma, without mention of having achieved remission [facility] Diagnosis Multiple myeloma not having achieved remission (HCC) Multiple myeloma, without mention of having achieved remission [facility] Diagnosis Diarrhea, unspecified type Multiple myeloma not having achieved remission (HCC) Multiple myeloma, without mention of having achieved remission 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 Renal insufficiency Unspecified disorder of kidney and ureter [facility] Diagnosis Multiple myeloma not having achieved remission (HCC) Multiple myeloma, without mention of having achieved remission [facility] Diagnosis Multiple myeloma not having achieved remission (HCC)- Primary Multiple myeloma, without mention of having achieved remission Hepatocellular carcinoma (HCC) Malignant neoplasm of liver, primary Claustrophobia Other isolated or specific phobias [facility] Diagnosis Pre-op evaluation- Primary Preoperative examination, unspecified Abnormal finding of blood chemistry, unspecified Primary hypertension Unspecified essential hypertension Hypercholesteremia Pure hypercholesterolemia Chemotherapy-induced nausea Nausea alone Type 2 diabetes (HCC) Platelets decreased (HCC) Thrombocytopenia, unspecified Multiple myeloma in remission (HCC) Multiple myeloma in remission Depression, unspecified depression type Abdominal aortic aneurysm (AAA) without rupture, unspecified part (HCC) Multiple myeloma not having achieved remission (HCC)- Primary Multiple myeloma, without mention of having achieved remission [facility] Pre-op evaluation- Primary Preoperative examination, unspecified Abnormal finding of blood chemistry, unspecified Primary hypertension Unspecified essential hypertension Hypercholesteremia Pure hypercholesterolemia Chemotherapy-induced nausea Nausea alone Type 2 diabetes (HCC) Platelets decreased (HCC) Thrombocytopenia, unspecified Multiple myeloma in remission (HCC) Multiple myeloma in remission Depression, unspecified depression type Abdominal aortic aneurysm (AAA) without rupture, unspecified part (HCC) Hepatocellular carcinoma (HCC) Malignant neoplasm of liver, primary Multiple myeloma not having achieved remission (HCC) Multiple myeloma, without mention of having achieved remission Claustrophobia Other isolated or specific phobias [facility] [place] [facility]* Diagnosis Pre-op evaluation- Primary Preoperative examination, unspecified Abnormal finding of blood chemistry, unspecified Primary hypertension Unspecified essential hypertension Hypercholesteremia Pure hypercholesterolemia Chemotherapy-induced nausea Nausea alone Type 2 diabetes (HCC) Platelets decreased (HCC) Thrombocytopenia, unspecified Multiple myeloma in remission (HCC) Multiple myeloma in remission Depression, unspecified depression type Abdominal aortic aneurysm (AAA) without rupture, unspecified part (HCC) Multiple myeloma not having achieved remission (HCC)- Primary Multiple myeloma, without mention of having achieved remission [facility] [place] [facility]* Diagnosis Pre-op evaluation- Primary Preoperative examination, unspecified Abnormal finding of blood chemistry, unspecified Primary hypertension Unspecified essential hypertension Hypercholesteremia Pure hypercholesterolemia Chemotherapy-induced nausea Nausea alone Type 2 diabetes (HCC) Platelets decreased (HCC) Thrombocytopenia, unspecified Multiple myeloma in remission (HCC) Multiple myeloma in remission Depression, unspecified depression type Abdominal aortic aneurysm (AAA) without rupture, unspecified part (HCC) Multiple myeloma not having achieved remission (HCC)- Primary Multiple myeloma, without mention of having achieved remission [facility] [place] [facility]* Diagnosis Pre-op evaluation- Primary Preoperative examination, unspecified Abnormal finding of blood chemistry, unspecified Primary hypertension Unspecified essential hypertension Hypercholesteremia Pure hypercholesterolemia Chemotherapy-induced nausea Nausea alone Type 2 diabetes (HCC) Platelets decreased (HCC) Thrombocytopenia, unspecified Multiple myeloma in remission (HCC) Multiple myeloma in remission Depression, unspecified depression type Abdominal aortic aneurysm (AAA) without rupture, unspecified part (HCC) Multiple myeloma not having achieved remission (HCC)- Primary Multiple myeloma, without mention of having achieved remission [facility] [place] [facility]* Diagnosis Pre-op evaluation- Primary Preoperative examination, unspecified Abnormal finding of blood chemistry, unspecified Primary hypertension Unspecified essential hypertension Hypercholesteremia Pure hypercholesterolemia Chemotherapy-induced nausea Nausea alone Type 2 diabetes (HCC) Platelets decreased (HCC) Thrombocytopenia, unspecified Multiple myeloma in remission (HCC) Multiple myeloma in remission Depression, unspecified depression type Abdominal aortic aneurysm (AAA) without rupture, unspecified part (HCC) Multiple myeloma not having achieved remission (HCC)- Primary Multiple myeloma, without mention of having achieved remission [facility] [place] [facility]* Diagnosis Pre-op evaluation- Primary Preoperative examination, unspecified Abnormal finding of blood chemistry, unspecified Primary hypertension Unspecified essential hypertension Hypercholesteremia Pure hypercholesterolemia Chemotherapy-induced nausea Nausea alone Type 2 diabetes (HCC) Platelets decreased (HCC) Thrombocytopenia, unspecified Multiple myeloma in remission (HCC) Multiple myeloma in remission Depression, unspecified depression type Abdominal aortic aneurysm (AAA) without rupture, unspecified part (HCC) Multiple myeloma not having achieved remission (HCC)- Primary Multiple myeloma, without mention of having achieved remission Hepatocellular carcinoma (HCC) Malignant neoplasm of liver, primary [facility] [place] [facility]* Diagnosis Pre-op evaluation- Primary Preoperative examination, unspecified Abnormal finding of blood chemistry, unspecified Primary hypertension Unspecified essential hypertension Hypercholesteremia Pure hypercholesterolemia Chemotherapy-induced nausea Nausea alone Type 2 diabetes (HCC) Platelets decreased (HCC) Thrombocytopenia, unspecified Multiple myeloma in remission (HCC) Multiple myeloma in remission Depression, unspecified depression type Abdominal aortic aneurysm (AAA) without rupture, unspecified part (HCC) Multiple myeloma not having achieved remission (HCC)- Primary Multiple myeloma, without mention of having achieved remission [facility] [place] [facility]* Diagnosis Pre-op evaluation- Primary Preoperative examination, unspecified Abnormal finding of blood chemistry, unspecified Primary hypertension Unspecified essential hypertension Hypercholesteremia Pure hypercholesterolemia Chemotherapy-induced nausea Nausea alone Type 2 diabetes (HCC) Platelets decreased (HCC) Thrombocytopenia, unspecified Multiple myeloma in remission (HCC) Multiple myeloma in remission Depression, unspecified depression type Abdominal aortic aneurysm (AAA) without rupture, unspecified part (HCC) Hepatocellular carcinoma (HCC) Malignant neoplasm of liver, primary Multiple myeloma not having achieved remission (HCC) Multiple myeloma, without mention of having achieved remission [facility] [place] [facility] Diagnosis Pre-op evaluation- Primary Preoperative examination, unspecified Abnormal finding of blood chemistry, unspecified Primary hypertension Unspecified essential hypertension Hypercholesteremia Pure hypercholesterolemia Chemotherapy-induced nausea Nausea alone Type 2 diabetes (HCC) Platelets decreased (HCC) Thrombocytopenia, unspecified Multiple myeloma in remission (HCC) Multiple myeloma in remission Depression, unspecified depression type Abdominal aortic aneurysm (AAA) without rupture, unspecified part (HCC) Multiple myeloma not having achieved remission (HCC)- Primary Multiple myeloma, without mention of having achieved remission documented in this encounter [facility] note* Diagnosis Pre-op evaluation- Primary Preoperative examination, unspecified Abnormal finding of blood chemistry, unspecified Primary hypertension Unspecified essential hypertension Hypercholesteremia Pure hypercholesterolemia Chemotherapy-induced nausea Nausea alone Type 2 diabetes (HCC) Platelets decreased (HCC) Thrombocytopenia, unspecified Multiple myeloma in remission (HCC) Multiple myeloma in remission Depression, unspecified depression type Abdominal aortic aneurysm (AAA) without rupture, unspecified part (HCC) Hepatocellular carcinoma (HCC) Malignant neoplasm of liver, primary documented in this encounter [facility] note* Diagnosis Pre-op evaluation- Primary Preoperative examination, unspecified Abnormal finding of blood chemistry, unspecified Primary hypertension Unspecified essential hypertension Hypercholesteremia Pure hypercholesterolemia Chemotherapy-induced nausea Nausea alone Type 2 diabetes (HCC) Platelets decreased (HCC) Thrombocytopenia, unspecified Multiple myeloma in remission (HCC) Multiple myeloma in remission Depression, unspecified depression type Abdominal aortic aneurysm (AAA) without rupture, unspecified part (HCC) Multiple myeloma not having achieved remission (HCC)- Primary Multiple myeloma, without mention of having achieved remission Hepatocellular carcinoma (HCC) Malignant neoplasm of liver, primary 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 documented in this encounter [facility] note* Diagnosis Status post arthroscopy of left knee- Primary Other postprocedural status documented in this encounter [facility]* Diagnosis Pre-op evaluation- Primary Preoperative examination, unspecified Abnormal finding of blood chemistry, unspecified Primary hypertension Unspecified essential hypertension Hypercholesteremia Pure hypercholesterolemia Chemotherapy-induced nausea Nausea alone Type 2 diabetes (HCC) Platelets decreased (HCC) Thrombocytopenia, unspecified Multiple myeloma in remission (HCC) Multiple myeloma in remission Depression, unspecified depression type Abdominal aortic aneurysm (AAA) without rupture, unspecified part (HCC) Multiple myeloma not having achieved remission (HCC)- Primary Multiple myeloma, without mention of having achieved remission 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 Stage 3 chronic kidney disease, unspecified whether stage 3a or 3b CKD (HCC) Hepatocellular carcinoma (HCC) Malignant neoplasm of liver, primary documented in this encounter [facility] note* Diagnosis Pre-op evaluation- Primary Preoperative examination, unspecified Abnormal finding of blood chemistry, unspecified Primary hypertension Unspecified essential hypertension Hypercholesteremia Pure hypercholesterolemia Chemotherapy-induced nausea Nausea alone Type 2 diabetes (HCC) Platelets decreased (HCC) Thrombocytopenia, unspecified Multiple myeloma in remission (HCC) Multiple myeloma in remission Depression, unspecified depression type Abdominal aortic aneurysm (AAA) without rupture, unspecified part (HCC) Renal lesion- Primary Unspecified disorder of kidney and ureter BPH with obstruction/lower urinary tract symptoms Hypertrophy of prostate with urinary obstruction and other lower urinary tract symptoms (LUTS) [facility] [place] [facility]* Diagnosis Pre-op evaluation- Primary Preoperative examination, unspecified Abnormal finding of blood chemistry, unspecified Primary hypertension Unspecified essential hypertension Hypercholesteremia Pure hypercholesterolemia Chemotherapy-induced nausea Nausea alone Type 2 diabetes (HCC) Platelets decreased (HCC) Thrombocytopenia, unspecified Multiple myeloma in remission (HCC) Multiple myeloma in remission Depression, unspecified depression type Abdominal aortic aneurysm (AAA) without rupture, unspecified part (HCC) Screening for genitourinary condition Screening for other and unspecified genitourinary condition documented in this encounter [facility] note* Diagnosis Pre-op evaluation- Primary Preoperative examination, unspecified Abnormal finding of blood chemistry, unspecified Primary hypertension Unspecified essential hypertension Hypercholesteremia Pure hypercholesterolemia Chemotherapy-induced nausea Nausea alone Type 2 diabetes (HCC) Platelets decreased (HCC) Thrombocytopenia, unspecified Multiple myeloma in remission (HCC) Multiple myeloma in remission Depression, unspecified depression type Abdominal aortic aneurysm (AAA) without rupture, unspecified part (HCC) Neutropenia associated with infection (HCC)- Primary Neutropenia due to infection Multiple myeloma not having achieved remission (HCC) Multiple myeloma, without mention of having achieved remission documented in this encounter [facility] note* Diagnosis Pre-op evaluation- Primary Preoperative examination, unspecified Abnormal finding of blood chemistry, unspecified Primary hypertension Unspecified essential hypertension Hypercholesteremia Pure hypercholesterolemia Chemotherapy-induced nausea Nausea alone Type 2 diabetes (HCC) Platelets decreased (HCC) Thrombocytopenia, unspecified Multiple myeloma in remission (HCC) Multiple myeloma in remission Depression, unspecified depression type Abdominal aortic aneurysm (AAA) without rupture, unspecified part (HCC) Multiple myeloma not having achieved remission (HCC)- Primary Multiple myeloma, without mention of having achieved remission Neutropenia associated with infection (HCC) Neutropenia due to infection Hepatocellular carcinoma (HCC) Malignant neoplasm of liver, primary 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 Stage 3 chronic kidney disease, unspecified whether stage 3a or 3b CKD (HCC) [facility] Pre-[facility]- Primary Preoperative examination, unspecified Abnormal finding of blood chemistry, unspecified Primary hypertension Unspecified essential hypertension Hypercholesteremia Pure hypercholesterolemia Chemotherapy-induced nausea Nausea alone Type 2 diabetes (HCC) Platelets decreased (HCC) Thrombocytopenia, unspecified Multiple myeloma in remission (HCC) Multiple myeloma in remission Depression, unspecified depression type Abdominal aortic aneurysm (AAA) without rupture, unspecified part (HCC) Neutropenia associated with infection (HCC)- Primary Neutropenia due to infection Multiple myeloma not having achieved remission (HCC) Multiple myeloma, without mention of having achieved remission [facility] [place] [facility] Diagnosis Acute cough- Primary Nicotine abuse Nicotine dependence, cigarettes, in remission Polyneuropathy associated with underlying disease (CMS/HCC) Mixed hyperlipidemia (CMS/HCC) Mixed hyperlipidemia Restless legs syndrome Restless legs syndrome (RLS) Hepatocellular carcinoma (CMS/HCC) Malignant neoplasm of liver, primary Stage 3a chronic kidney disease (HCC) (CMS/HCC) Type 2 diabetes mellitus with hyperglycemia, with long-term current use of insulin (CMS/HCC) 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 (CMS/HCC) Immunodeficiency (CMS/HCC) Unspecified immunity deficiency Type 2 diabetes mellitus with hyperglycemia, with long-term current use of insulin (CMS/HCC)- Primary Acute cough Diarrhea, unspecified type Immunodeficiency (CMS/HCC) Unspecified immunity deficiency S/P autologous bone marrow transplantation (CMS/HCC) Multiple myeloma not having achieved remission (CMS/HCC) Hepatocellular carcinoma (CMS/HCC) Malignant neoplasm of liver, primary Preoperative clearance- Primary Unspecified pre-operative examination Encounter for pre-operative examination Hepatocellular carcinoma (CMS/HCC) Malignant neoplasm of liver, primary Multiple myeloma not having achieved remission (CMS/HCC) Encounter for immunization Primary hypertension (CMS/HCC) Unspecified essential hypertension Bone marrow transplant status (CMS/HCC) Diabetic nephropathy associated with type 2 diabetes mellitus (HCC) (CMS/HCC) Morbid (severe) obesity due to excess calories (CMS/HCC) Polyneuropathy in diseases classified elsewhere (CMS/HCC) Immunodeficiency, unspecified (CMS/HCC) Body mass index (BMI) 35.0-35.9, adult Major depressive disorder, recurrent, in remission, unspecified (HCC) (CMS/HCC) Chronic kidney disease, stage 2 (mild) 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 (CMS/HCC) Status post arthroscopy of left knee- Primary Other postprocedural status [facility] Pre-op evaluation- Primary Preoperative examination, unspecified Abnormal finding of blood chemistry, unspecified Primary hypertension Unspecified essential hypertension Hypercholesteremia Pure hypercholesterolemia Chemotherapy-induced nausea Nausea alone Type 2 diabetes (HCC) Platelets decreased (HCC) Thrombocytopenia, unspecified Multiple myeloma in remission (HCC) Multiple myeloma in remission Depression, unspecified depression type Abdominal aortic aneurysm (AAA) without rupture, unspecified part (HCC) Neutropenia associated with infection (HCC)- Primary Neutropenia due to infection Multiple myeloma not having achieved remission (HCC) Multiple myeloma, without mention of having achieved remission [facility] [place] [facility]* Diagnosis Pre-op evaluation- Primary Preoperative examination, unspecified Abnormal finding of blood chemistry, unspecified Primary hypertension Unspecified essential hypertension Hypercholesteremia Pure hypercholesterolemia Chemotherapy-induced nausea Nausea alone Type 2 diabetes (HCC) Platelets decreased (HCC) Thrombocytopenia, unspecified Multiple myeloma in remission (HCC) Multiple myeloma in remission Depression, unspecified depression type Abdominal aortic aneurysm (AAA) without rupture, unspecified part (HCC) Multiple myeloma not having achieved remission (HCC)- Primary Multiple myeloma, without mention of having achieved remission Cancer associated pain Neoplasm related pain (acute) (chronic) [facility] [place] [facility]* Diagnosis Acute cough- Primary Nicotine abuse Nicotine dependence, cigarettes, in remission Polyneuropathy associated with underlying disease (CMS/HCC) Mixed hyperlipidemia (CMS/HCC) Mixed hyperlipidemia Restless legs syndrome Restless legs syndrome (RLS) Hepatocellular carcinoma (CMS/HCC) Malignant neoplasm of liver, primary Stage 3a chronic kidney disease (HCC) (CMS/HCC) Type 2 diabetes mellitus with hyperglycemia, with long-term current use of insulin (CMS/HCC) 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 (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/HCC) Immunodeficiency (CMS/HCC) Unspecified immunity deficiency Type 2 diabetes mellitus with hyperglycemia, with long-term current use of insulin (CMS/HCC)- Primary Acute cough Diarrhea, unspecified type Immunodeficiency (CMS/HCC) Unspecified immunity deficiency S/P autologous bone marrow transplantation (CMS/HCC) Multiple myeloma not having achieved remission (CMS/HCC) Hepatocellular carcinoma (CMS/HCC) Malignant neoplasm of liver, primary Preoperative clearance- Primary Unspecified pre-operative examination Encounter for pre-operative examination Hepatocellular carcinoma (CMS/HCC) Malignant neoplasm of liver, primary Multiple myeloma not having achieved remission (CMS/HCC) Encounter for immunization Primary hypertension ([facility]/HCC) Unspecified essential hypertension Bone marrow transplant status ([facility]) Diabetic nephropathy associated with type 2 diabetes mellitus (HCC) ([facility]) Morbid (severe) obesity due to excess calories ([facility]/HCC) Polyneuropathy in diseases classified elsewhere ([facility]) Immunodeficiency, unspecified ([facility]) Body mass index (BMI) 35.0-35.9, adult Major depressive disorder, recurrent, in remission, unspecified (HCC) ([facility]) Chronic kidney disease, stage 2 (mild) 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 ([facility]) Restless legs syndrome Restless legs syndrome (RLS) [facility] Diagnosis Pre-op evaluation- Primary Preoperative examination, unspecified Abnormal finding of blood chemistry, unspecified Primary hypertension Unspecified essential hypertension Hypercholesteremia Pure hypercholesterolemia Chemotherapy-induced nausea Nausea alone Type 2 diabetes (HCC) Platelets decreased (HCC) Thrombocytopenia, unspecified Multiple myeloma in remission (HCC) Multiple myeloma in remission Depression, unspecified depression type Abdominal aortic aneurysm (AAA) without rupture, unspecified part (HCC) Neutropenia associated with infection (HCC)- Primary Neutropenia due to infection Multiple myeloma not having achieved remission (HCC) Multiple myeloma, without mention of having achieved remission [facility] [place] [facility]* Diagnosis Pre-op evaluation- Primary Preoperative examination, unspecified Abnormal finding of blood chemistry, unspecified Primary hypertension Unspecified essential hypertension Hypercholesteremia Pure hypercholesterolemia Chemotherapy-induced nausea Nausea alone Type 2 diabetes (HCC) Platelets decreased (HCC) Thrombocytopenia, unspecified Multiple myeloma in remission (HCC) Multiple myeloma in remission Depression, unspecified depression type Abdominal aortic aneurysm (AAA) without rupture, unspecified part (HCC) Multiple myeloma not having achieved remission (HCC)- Primary Multiple myeloma, without mention of having achieved remission Hepatocellular carcinoma (HCC) Malignant neoplasm of liver, primary Thrombocytopenia (HCC) Thrombocytopenia, unspecified [facility] [place] [facility]* Diagnosis Pre-op evaluation- Primary Preoperative examination, unspecified Abnormal finding of blood chemistry, unspecified Primary hypertension Unspecified essential hypertension Hypercholesteremia Pure hypercholesterolemia Chemotherapy-induced nausea Nausea alone Type 2 diabetes (HCC) Platelets decreased (HCC) Thrombocytopenia, unspecified Multiple myeloma in remission (HCC) Multiple myeloma in remission Depression, unspecified depression type Abdominal aortic aneurysm (AAA) without rupture, unspecified part (HCC) Neutropenia associated with infection (HCC)- Primary Neutropenia due to infection Multiple myeloma not having achieved remission (HCC) Multiple myeloma, without mention of having achieved remission [facility] [place] [facility]* Diagnosis Pre-op evaluation- Primary Preoperative examination, unspecified Abnormal finding of blood chemistry, unspecified Primary hypertension Unspecified essential hypertension Hypercholesteremia Pure hypercholesterolemia Chemotherapy-induced nausea Nausea alone Type 2 diabetes (HCC) Platelets decreased (HCC) Thrombocytopenia, unspecified Multiple myeloma in remission (HCC) Multiple myeloma in remission Depression, unspecified depression type Abdominal aortic aneurysm (AAA) without rupture, unspecified part (HCC) Restless leg- Primary Restless legs syndrome (RLS) [facility] [place] [facility]* Diagnosis Pre-op evaluation- Primary Preoperative examination, unspecified Abnormal finding of blood chemistry, unspecified Primary hypertension Unspecified essential hypertension Hypercholesteremia Pure hypercholesterolemia Chemotherapy-induced nausea Nausea alone Type 2 diabetes (HCC) Platelets decreased (HCC) Thrombocytopenia, unspecified Multiple myeloma in remission (HCC) Multiple myeloma in remission Depression, unspecified depression type Abdominal aortic aneurysm (AAA) without rupture, unspecified part (HCC) Neutropenia associated with infection (HCC)- Primary Neutropenia due to infection Multiple myeloma not having achieved remission (HCC) Multiple myeloma, without mention of having achieved remission [facility] [place] [facility]* Diagnosis Pre-op evaluation- Primary Preoperative examination, unspecified Abnormal finding of blood chemistry, unspecified Primary hypertension Unspecified essential hypertension Hypercholesteremia Pure hypercholesterolemia Chemotherapy-induced nausea Nausea alone Type 2 diabetes (HCC) Platelets decreased (HCC) Thrombocytopenia, unspecified Multiple myeloma in remission (HCC) Multiple myeloma in remission Depression, unspecified depression type Abdominal aortic aneurysm (AAA) without rupture, unspecified part (HCC) Multiple myeloma not having achieved remission (HCC)- Primary Multiple myeloma, without mention of having achieved remission [facility] [place] [facility]* Diagnosis Pre-op evaluation- Primary Preoperative examination, unspecified Abnormal finding of blood chemistry, unspecified Primary hypertension Unspecified essential hypertension Hypercholesteremia Pure hypercholesterolemia Chemotherapy-induced nausea Nausea alone Type 2 diabetes (HCC) Platelets decreased (HCC) Thrombocytopenia, unspecified Multiple myeloma in remission (HCC) Multiple myeloma in remission Depression, unspecified depression type Abdominal aortic aneurysm (AAA) without rupture, unspecified part (HCC) Neutropenia associated with infection (HCC)- Primary Neutropenia due to infection Multiple myeloma not having achieved remission (HCC) Multiple myeloma, without mention of having achieved remission [facility] [place] [facility]* Diagnosis Pre-op evaluation- Primary Preoperative examination, unspecified Abnormal finding of blood chemistry, unspecified Primary hypertension Unspecified essential hypertension Hypercholesteremia Pure hypercholesterolemia Chemotherapy-induced nausea Nausea alone Type 2 diabetes (HCC) Platelets decreased (HCC) Thrombocytopenia, unspecified Multiple myeloma in remission (HCC) Multiple myeloma in remission Depression, unspecified depression type Abdominal aortic aneurysm (AAA) without rupture, unspecified part (HCC) Neutropenia associated with infection (HCC)- Primary Neutropenia due to infection Multiple myeloma not having achieved remission (HCC) Multiple myeloma, without mention of having achieved remission [facility] [place] [facility]* Diagnosis Pre-op evaluation- Primary Preoperative examination, unspecified Abnormal finding of blood chemistry, unspecified Primary hypertension Unspecified essential hypertension Hypercholesteremia Pure hypercholesterolemia Chemotherapy-induced nausea Nausea alone Type 2 diabetes (HCC) Platelets decreased (HCC) Thrombocytopenia, unspecified Multiple myeloma in remission (HCC) Multiple myeloma in remission Depression, unspecified depression type Abdominal aortic aneurysm (AAA) without rupture, unspecified part (HCC) Multiple myeloma not having achieved remission (HCC)- Primary Multiple myeloma, without mention of having achieved remission [facility] [place] [facility]* Diagnosis Pre-op evaluation- Primary Preoperative examination, unspecified Abnormal finding of blood chemistry, unspecified Primary hypertension Unspecified essential hypertension Hypercholesteremia Pure hypercholesterolemia Chemotherapy-induced nausea Nausea alone Type 2 diabetes (HCC) Platelets decreased (HCC) Thrombocytopenia, unspecified Multiple myeloma in remission (HCC) Multiple myeloma in remission Depression, unspecified depression type Abdominal aortic aneurysm (AAA) without rupture, unspecified part (HCC) Multiple myeloma not having achieved remission (HCC)- Primary Multiple myeloma, without mention of having achieved remission Neutropenia associated with infection (HCC) Neutropenia due to infection [facility] [place] [facility]* Diagnosis Left knee pain, unspecified chronicity- Primary Complex tear of medial meniscus of left knee as current injury, initial encounter Complex tear of lateral meniscus of left knee as current injury, initial encounter Primary osteoarthritis of left knee [facility] Diagnosis Pre-op evaluation- Primary Preoperative examination, unspecified Abnormal finding of blood chemistry, unspecified Primary hypertension Unspecified essential hypertension Hypercholesteremia Pure hypercholesterolemia Chemotherapy-induced nausea Nausea alone Type 2 diabetes (HCC) Platelets decreased (HCC) Thrombocytopenia, unspecified Multiple myeloma in remission (HCC) Multiple myeloma in remission Depression, unspecified depression type Abdominal aortic aneurysm (AAA) without rupture, unspecified part (HCC) Multiple myeloma not having achieved remission (HCC)- Primary Multiple myeloma, without mention of having achieved remission Neutropenia associated with infection (HCC) Neutropenia due to infection Thrombocytopenia (HCC) Thrombocytopenia, unspecified Hepatocellular carcinoma (HCC) Malignant neoplasm of liver, primary [facility] Left knee pain, unspecified chronicity- Primary Primary osteoarthritis of left knee Internal derangement of left knee [facility]* Diagnosis Chronic frontal sinusitis documented [facility]* Diagnosis Post-op pain- Primary Other acute postoperative pain documented in this [facility]* Diagnosis Insulin long-term use (CMS/HCC)- Primary Encounter for long-term (current) use of insulin Type 2 diabetes mellitus with hyperglycemia, with long-term current use of insulin (CMS/HCC) Hyperlipemia, mixed (CMS/HCC) Mixed hyperlipidemia Vitamin D deficiency Encounter for dietary consultation Class 2 obesity due to excess calories without serious comorbidity with body mass index (BMI) of 35.0 to 35.9 in adult documented in [facility]* Diagnosis Preoperative clearance- Primary Unspecified pre-operative examination Encounter for pre-operative examination Hepatocellular carcinoma (CMS/HCC) Malignant neoplasm of liver, primary Multiple myeloma not having achieved remission (CMS/HCC) Encounter for immunization Primary hypertension (CMS/HCC) Unspecified essential hypertension Bone marrow transplant status (CMS/HCC) Diabetic nephropathy associated with type 2 diabetes mellitus (HCC) (CMS/HCC) Morbid (severe) obesity due to excess calories (CMS/HCC) Polyneuropathy in diseases classified elsewhere (CMS/HCC) Immunodeficiency, unspecified (CMS/HCC) Body mass index (BMI) 35.0-35.9, adult Major depressive disorder, recurrent, in remission, unspecified (HCC) (CMS/HCC) Chronic kidney disease, stage 2 (mild) custodial (current) use of insulin (CMS/HCC) documented in this encounter [facility]* Diagnosis Pre-op evaluation- Primary Preoperative examination, unspecified Abnormal finding of blood chemistry, unspecified Primary hypertension Unspecified essential hypertension Hypercholesteremia Pure hypercholesterolemia Chemotherapy-induced nausea Nausea alone Type 2 diabetes (HCC) Platelets decreased (HCC) Thrombocytopenia, unspecified Multiple myeloma in remission (HCC) Multiple myeloma in remission Depression, unspecified depression type Abdominal aortic aneurysm (AAA) without rupture, unspecified part (HCC) Multiple myeloma not having achieved remission (HCC)- Primary Multiple myeloma, without mention of having achieved remission Neutropenia associated with infection (HCC) Neutropenia due to infection Hepatocellular carcinoma (HCC) Malignant neoplasm of liver, primary 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 Stage 3 chronic kidney disease, unspecified whether stage 3a or 3b CKD (HCC) DM (diabetes mellitus), type 2 with complications (HCC) Type II or unspecified type diabetes mellitus with unspecified complication, not stated as uncontrolled [facility] Acute cough- Primary Nicotine abuse Nicotine dependence, cigarettes, in remission Polyneuropathy associated with underlying disease (CMS/HCC) Mixed hyperlipidemia (CMS/HCC) Mixed hyperlipidemia Restless legs syndrome Restless legs syndrome (RLS) Hepatocellular carcinoma (CMS/HCC) Malignant neoplasm of liver, primary Stage 3a chronic kidney disease (HCC) (CMS/HCC) Type 2 diabetes mellitus with hyperglycemia, with long-term current use of insulin (CMS/HCC) custodial current use of insulin (CMS/HCC) Immunodeficiency (CMS/HCC) Unspecified immunity deficiency Type 2 diabetes mellitus with hyperglycemia, with long-term current use of insulin (CMS/HCC)- Primary Acute cough Diarrhea, unspecified type Immunodeficiency (CMS/HCC) Unspecified immunity deficiency S/P autologous bone marrow transplantation (CMS/HCC) Multiple myeloma not having achieved remission (CMS/HCC) Hepatocellular carcinoma (CMS/HCC) Malignant neoplasm of liver, primary Preoperative clearance- Primary Unspecified pre-operative examination Encounter for pre-operative examination Hepatocellular carcinoma (CMS/HCC) Malignant neoplasm of liver, primary Multiple myeloma not having achieved remission (CMS/HCC) Encounter for immunization Primary hypertension (CMS/HCC) Unspecified essential hypertension Bone marrow transplant status (CMS/HCC) Diabetic nephropathy associated with type 2 diabetes mellitus (HCC) (CMS/HCC) Morbid (severe) obesity due to excess calories (CMS/HCC) Polyneuropathy in diseases classified elsewhere (CMS/HCC) Immunodeficiency, unspecified (CMS/HCC) Body mass index (BMI) 35.0-35.9, adult Major depressive disorder, recurrent, in remission, unspecified (HCC) (CMS/HCC) Chronic kidney disease, stage 2 (mild) custodial (current) use of insulin (CMS/HCC) Type 2 diabetes mellitus with hyperglycemia (CMS/HCC) documented in this encounter [facility]* Diagnosis Acute cough- Primary Nicotine abuse Nicotine dependence, cigarettes, in remission Polyneuropathy associated with underlying disease (CMS/HCC) Mixed hyperlipidemia (CMS/HCC) Mixed hyperlipidemia Restless legs syndrome Restless legs syndrome (RLS) Hepatocellular carcinoma (CMS/HCC) Malignant neoplasm of liver, primary Stage 3a chronic kidney disease (HCC) (CMS/HCC) Type 2 diabetes mellitus with hyperglycemia, with long-term current use of insulin (CMS/HCC) custodial current use of insulin (CMS/HCC) Immunodeficiency (CMS/HCC) Unspecified immunity deficiency Type 2 diabetes mellitus with hyperglycemia, with long-term current use of insulin (CMS/HCC)- Primary Acute cough Diarrhea, unspecified type Immunodeficiency (CMS/HCC) Unspecified immunity deficiency S/P autologous bone marrow transplantation (CMS/HCC) Multiple myeloma not having achieved remission (CMS/HCC) Hepatocellular carcinoma (CMS/HCC) Malignant neoplasm of liver, primary Preoperative clearance- Primary Unspecified pre-operative examination Encounter for pre-operative examination Hepatocellular carcinoma (CMS/HCC) Malignant neoplasm of liver, primary Multiple myeloma not having achieved remission (CMS/HCC) Encounter for immunization Primary hypertension (CMS/HCC) Unspecified essential hypertension Bone marrow transplant status (CMS/HCC) Diabetic nephropathy associated with type 2 diabetes mellitus (HCC) (CMS/HCC) Morbid (severe) obesity due to excess calories (CMS/HCC) Polyneuropathy in diseases classified elsewhere (CMS/HCC) Immunodeficiency, unspecified (CMS/HCC) Body mass index (BMI) 35.0-35.9, adult Major depressive disorder, recurrent, in remission, unspecified (HCC) (CMS/HCC) Chronic kidney disease, stage 2 (mild) 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 (CMS/HCC) Diverticulitis- Primary Diverticulitis of colon (without mention of hemorrhage) Multiple myeloma, remission status unspecified (CMS/HCC) documented in [facility] encounter [facility]* Diagnosis Pre-op evaluation- Primary Preoperative examination, unspecified Abnormal finding of blood chemistry, unspecified Primary hypertension Unspecified essential hypertension Hypercholesteremia Pure hypercholesterolemia Chemotherapy-induced nausea Nausea alone Type 2 diabetes (HCC) Platelets decreased (HCC) Thrombocytopenia, unspecified Multiple myeloma in remission (HCC) Multiple myeloma in remission Depression, unspecified depression type Abdominal aortic aneurysm (AAA) without rupture, unspecified part (HCC) Neutropenia associated with infection (HCC)- Primary Neutropenia due to infection Multiple myeloma not having achieved remission (HCC) Multiple myeloma, without mention of having achieved remission [facility] [place] [facility]* Diagnosis Pre-op evaluation- Primary Preoperative examination, unspecified Abnormal finding of blood chemistry, unspecified Primary hypertension Unspecified essential hypertension Hypercholesteremia Pure hypercholesterolemia Chemotherapy-induced nausea Nausea alone Type 2 diabetes (HCC) Platelets decreased (HCC) Thrombocytopenia, unspecified Multiple myeloma in remission (HCC) Multiple myeloma in remission Depression, unspecified depression type Abdominal aortic aneurysm (AAA) without rupture, unspecified part (HCC) Neutropenia associated with infection (HCC)- Primary Neutropenia due to infection Multiple myeloma not having achieved remission (HCC) Multiple myeloma, without mention of having achieved remission [facility] [place] [facility]* Diagnosis Pre-op evaluation- Primary Preoperative examination, unspecified Abnormal finding of blood chemistry, unspecified Primary hypertension Unspecified essential hypertension Hypercholesteremia Pure hypercholesterolemia Chemotherapy-induced nausea Nausea alone Type 2 diabetes (HCC) Platelets decreased (HCC) Thrombocytopenia, unspecified Multiple myeloma in remission (HCC) Multiple myeloma in remission Depression, unspecified depression type Abdominal aortic aneurysm (AAA) without rupture, unspecified part (HCC) Neutropenia associated with infection (HCC)- Primary Neutropenia due to infection Multiple myeloma not having achieved remission (HCC) Multiple myeloma, without mention of having achieved remission [facility] [place] [facility]* Diagnosis Pre-op evaluation- Primary Preoperative examination, unspecified Abnormal finding of blood chemistry, unspecified Primary hypertension Unspecified essential hypertension Hypercholesteremia Pure hypercholesterolemia Chemotherapy-induced nausea Nausea alone Type 2 diabetes (HCC) Platelets decreased (HCC) Thrombocytopenia, unspecified Multiple myeloma in remission (HCC) Multiple myeloma in remission Depression, unspecified depression type Abdominal aortic aneurysm (AAA) without rupture, unspecified part (HCC) Neutropenia associated with infection (HCC)- Primary Neutropenia due to infection Multiple myeloma not having achieved remission (HCC) Multiple myeloma, without mention of having achieved remission [facility] [place] [facility]* Diagnosis Acute cough- Primary Nicotine abuse Nicotine dependence, cigarettes, in remission Polyneuropathy associated with underlying disease (CMS/HCC) Mixed hyperlipidemia (CMS/HCC) Mixed hyperlipidemia Restless legs syndrome Restless legs syndrome (RLS) Hepatocellular carcinoma (CMS/HCC) Malignant neoplasm of liver, primary Stage 3a chronic kidney disease (HCC) (CMS/HCC) Type 2 diabetes mellitus with hyperglycemia, with long-term current use of insulin (CMS/HCC) custodial current use of insulin (CMS/HCC) Immunodeficiency (CMS/HCC) Unspecified immunity deficiency Type 2 diabetes mellitus with hyperglycemia, with long-term current use of insulin (CMS/HCC)- Primary Acute cough Diarrhea, unspecified type Immunodeficiency (CMS/HCC) Unspecified immunity deficiency S/P autologous bone marrow transplantation (CMS/HCC) Multiple myeloma not having achieved remission (CMS/HCC) Hepatocellular carcinoma (CMS/HCC) Malignant neoplasm of liver, primary Preoperative clearance- Primary Unspecified pre-operative examination Encounter for pre-operative examination Hepatocellular carcinoma (CMS/HCC) Malignant neoplasm of liver, primary Multiple myeloma not having achieved remission (CMS/HCC) Encounter for immunization Primary hypertension (CMS/HCC) Unspecified essential hypertension Bone marrow transplant status (CMS/HCC) Diabetic nephropathy associated with type 2 diabetes mellitus (HCC) (CMS/HCC) Morbid (severe) obesity due to excess calories (CMS/HCC) Polyneuropathy in diseases classified elsewhere (CMS/HCC) Immunodeficiency, unspecified (CMS/HCC) Body mass index (BMI) 35.0-35.9, adult Major depressive disorder, recurrent, in remission, unspecified (HCC) (CMS/HCC) Chronic kidney disease, stage 2 (mild) custodial (current) use of insulin (CMS/HCC) Spasm of cervical paraspinous muscle- Primary Spasm of muscle documented in this encounter [facility]* Diagnosis Pre-op evaluation- Primary Preoperative examination, unspecified Abnormal finding of blood chemistry, unspecified Primary hypertension Unspecified essential hypertension Hypercholesteremia Pure hypercholesterolemia Chemotherapy-induced nausea Nausea alone Type 2 diabetes (HCC) Platelets decreased (HCC) Thrombocytopenia, unspecified Multiple myeloma in remission (HCC) Multiple myeloma in remission Depression, unspecified depression type Abdominal aortic aneurysm (AAA) without rupture, unspecified part (HCC) Pancytopenia (HCC) Other pancytopenia 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 Neutropenia associated with infection (HCC) Neutropenia due to infection Malnutrition of moderate degree (HCC) Malnutrition of moderate degree DM (diabetes mellitus), type 2 with complications (HCC) Type II or unspecified type diabetes mellitus with unspecified complication, not stated as uncontrolled Moderate episode of recurrent major depressive disorder (HCC) Thrombocytopenia (HCC) Thrombocytopenia, unspecified Stage 3 chronic kidney disease, unspecified whether stage 3a or 3b CKD (HCC) [facility] Acute cough- Primary Nicotine abuse Nicotine dependence, cigarettes, in remission Polyneuropathy associated with underlying disease (CMS/HCC) Mixed hyperlipidemia (CMS/HCC) Mixed hyperlipidemia Restless legs syndrome Restless legs syndrome (RLS) Hepatocellular carcinoma (CMS/HCC) Malignant neoplasm of liver, primary Stage 3a chronic kidney disease (HCC) (CMS/HCC) Type 2 diabetes mellitus with hyperglycemia, with long-term current use of insulin (CMS/HCC) 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 (CMS/HCC) Immunodeficiency (CMS/HCC) Unspecified immunity deficiency Type 2 diabetes mellitus with hyperglycemia, with long-term current use of insulin (CMS/HCC)- Primary Acute cough Diarrhea, unspecified type Immunodeficiency (CMS/HCC) Unspecified immunity deficiency S/P autologous bone marrow transplantation (CMS/HCC) Multiple myeloma not having achieved remission (CMS/HCC) Hepatocellular carcinoma (CMS/HCC) Malignant neoplasm of liver, primary Preoperative clearance- Primary Unspecified pre-operative examination Encounter for pre-operative examination Hepatocellular carcinoma (CMS/HCC) Malignant neoplasm of liver, primary Multiple myeloma not having achieved remission (CMS/HCC) Encounter for immunization Primary hypertension (CMS/HCC) Unspecified essential hypertension Bone marrow transplant status (CMS/HCC) Diabetic nephropathy associated with type 2 diabetes mellitus (HCC) (CMS/HCC) Morbid (severe) obesity due to excess calories (CMS/HCC) Polyneuropathy in diseases classified elsewhere (CMS/HCC) Immunodeficiency, unspecified (CMS/HCC) Body mass index (BMI) 35.0-35.9, adult Major depressive disorder, recurrent, in remission, unspecified (HCC) (CMS/HCC) Chronic kidney disease, stage 2 (mild) custodial (current) use of insulin (CMS/HCC) Spasm of cervical paraspinous muscle- Primary Spasm of muscle Whiplash injury, acute, subsequent encounter documented in this encounter [facility]* Diagnosis Acute cough- Primary Nicotine abuse Nicotine dependence, cigarettes, in remission Polyneuropathy associated with underlying disease (CMS/HCC) Mixed hyperlipidemia (CMS/HCC) Mixed hyperlipidemia Restless legs syndrome Restless legs syndrome (RLS) Hepatocellular carcinoma (CMS/HCC) Malignant neoplasm of liver, primary Stage 3a chronic kidney disease (HCC) (CMS/HCC) Type 2 diabetes mellitus with hyperglycemia, with long-term current use of insulin (CMS/HCC) 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 (CMS/HCC) Immunodeficiency (CMS/HCC) Unspecified immunity deficiency Type 2 diabetes mellitus with hyperglycemia, with long-term current use of insulin (CMS/HCC)- Primary Acute cough Diarrhea, unspecified type Immunodeficiency (CMS/HCC) Unspecified immunity deficiency S/P autologous bone marrow transplantation (CMS/HCC) Multiple myeloma not having achieved remission (CMS/HCC) Hepatocellular carcinoma (CMS/HCC) Malignant neoplasm of liver, primary Preoperative clearance- Primary Unspecified pre-operative examination Encounter for pre-operative examination Hepatocellular carcinoma (CMS/HCC) Malignant neoplasm of liver, primary Multiple myeloma not having achieved remission (CMS/HCC) Encounter for immunization Primary hypertension (CMS/HCC) Unspecified essential hypertension Bone marrow transplant status (CMS/HCC) Diabetic nephropathy associated with type 2 diabetes mellitus (HCC) (CMS/HCC) Morbid (severe) obesity due to excess calories (CMS/HCC) Polyneuropathy in diseases classified elsewhere (CMS/HCC) Immunodeficiency, unspecified (CMS/HCC) Body mass index (BMI) 35.0-35.9, adult Major depressive disorder, recurrent, in remission, unspecified (HCC) (CMS/HCC) Chronic kidney disease, stage 2 (mild) custodial (current) use of insulin (CMS/HCC) Mixed hyperlipidemia (CMS/HCC) Mixed hyperlipidemia [facility] Pre-[facility] evaluation- Primary Preoperative examination, unspecified Abnormal finding of blood chemistry, unspecified Primary hypertension Unspecified essential hypertension Hypercholesteremia Pure hypercholesterolemia Chemotherapy-induced nausea Nausea alone Type 2 diabetes (HCC) Platelets decreased (HCC) Thrombocytopenia, unspecified Multiple myeloma in remission (HCC) Multiple myeloma in remission Depression, unspecified depression type Abdominal aortic aneurysm (AAA) without rupture, unspecified part (HCC) Neutropenia associated with infection (HCC)- Primary Neutropenia due to infection Multiple myeloma not having achieved remission (HCC) Multiple myeloma, without mention of having achieved remission [facility] Acute cough- Primary Nicotine abuse Nicotine dependence, cigarettes, in remission Polyneuropathy associated with underlying disease (CMS/HCC) Mixed hyperlipidemia (CMS/HCC) Mixed hyperlipidemia Restless legs syndrome Restless legs syndrome (RLS) Hepatocellular carcinoma (CMS/HCC) Malignant neoplasm of liver, primary Stage 3a chronic kidney disease (HCC) (CMS/HCC) Type 2 diabetes mellitus with hyperglycemia, with long-term current use of insulin (CMS/HCC) 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 (CMS/HCC) Immunodeficiency (CMS/HCC) Unspecified immunity deficiency Type 2 diabetes mellitus with hyperglycemia, with long-term current use of insulin (CMS/HCC)- Primary Acute cough Diarrhea, unspecified type Immunodeficiency (CMS/HCC) Unspecified immunity deficiency S/P autologous bone marrow transplantation (CMS/HCC) Multiple myeloma not having achieved remission (CMS/HCC) Hepatocellular carcinoma (CMS/HCC) Malignant neoplasm of liver, primary Preoperative clearance- Primary Unspecified pre-operative examination Encounter for pre-operative examination Hepatocellular carcinoma (CMS/HCC) Malignant neoplasm of liver, primary Multiple myeloma not having achieved remission (CMS/HCC) Encounter for immunization Primary hypertension (CMS/HCC) Unspecified essential hypertension Bone marrow transplant status (CMS/HCC) Diabetic nephropathy associated with type 2 diabetes mellitus (HCC) (CMS/HCC) Morbid (severe) obesity due to excess calories (CMS/HCC) Polyneuropathy in diseases classified elsewhere (CMS/HCC) Immunodeficiency, unspecified (CMS/HCC) Body mass index (BMI) 35.0-35.9, adult Major depressive disorder, recurrent, in remission, unspecified (HCC) (CMS/HCC) Chronic kidney disease, stage 2 (mild) custodial (current) use of insulin (CMS/HCC) Spasm of cervical paraspinous muscle- Primary Spasm of muscle Whiplash injury, acute, subsequent encounter [facility] Pre-op evaluation- Primary Preoperative examination, unspecified Abnormal finding of blood chemistry, unspecified Primary hypertension Unspecified essential hypertension Hypercholesteremia Pure hypercholesterolemia Chemotherapy-induced nausea Nausea alone Type 2 diabetes (HCC) Platelets decreased (HCC) Thrombocytopenia, unspecified Multiple myeloma in remission (HCC) Multiple myeloma in remission Depression, unspecified depression type Abdominal aortic aneurysm (AAA) without rupture, unspecified part (HCC) Neutropenia associated with infection (HCC)- Primary Neutropenia due to infection [facility] Pre-op evaluation- Primary Preoperative examination, unspecified Abnormal finding of blood chemistry, unspecified Primary hypertension Unspecified essential hypertension Hypercholesteremia Pure hypercholesterolemia Chemotherapy-induced nausea Nausea alone Type 2 diabetes (HCC) Platelets decreased (HCC) Thrombocytopenia, unspecified Multiple myeloma in remission (HCC) Multiple myeloma in remission Depression, unspecified depression type Abdominal aortic aneurysm (AAA) without rupture, unspecified part (HCC) Multiple myeloma not having achieved remission (HCC)- Primary Multiple myeloma, without mention of having achieved remission 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 Neutropenia associated with infection (HCC) Neutropenia due to infection Stage 3 chronic kidney disease, unspecified whether stage 3a or 3b CKD (HCC) Type 2 diabetes (HCC) [facility] [place] [facility]* Diagnosis Acute cough- Primary Nicotine abuse Nicotine dependence, cigarettes, in remission Polyneuropathy associated with underlying disease (CMS/HCC) Mixed hyperlipidemia (CMS/HCC) Mixed hyperlipidemia Restless legs syndrome Restless legs syndrome (RLS) Hepatocellular carcinoma (CMS/HCC) Malignant neoplasm of liver, primary Stage 3a chronic kidney disease (HCC) (CMS/HCC) Type 2 diabetes mellitus with hyperglycemia, with long-term current use of insulin (CMS/HCC) 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 (CMS/HCC) Immunodeficiency (CMS/HCC) Unspecified immunity deficiency Type 2 diabetes mellitus with hyperglycemia, with long-term current use of insulin (CMS/HCC)- Primary Acute cough Diarrhea, unspecified type Immunodeficiency (CMS/HCC) Unspecified immunity deficiency S/P autologous bone marrow transplantation (CMS/HCC) Multiple myeloma not having achieved remission (CMS/HCC) Hepatocellular carcinoma (CMS/HCC) Malignant neoplasm of liver, primary Preoperative clearance- Primary Unspecified pre-operative examination Encounter for pre-operative examination Hepatocellular carcinoma (CMS/HCC) Malignant neoplasm of liver, primary Multiple myeloma not having achieved remission (CMS/HCC) Encounter for immunization Primary hypertension (CMS/HCC) Unspecified essential hypertension Bone marrow transplant status (CMS/HCC) Diabetic nephropathy associated with type 2 diabetes mellitus (HCC) (CMS/HCC) Morbid (severe) obesity due to excess calories (CMS/HCC) Polyneuropathy in diseases classified elsewhere (CMS/HCC) Immunodeficiency, unspecified (CMS/HCC) Body mass index (BMI) 35.0-35.9, adult Major depressive disorder, recurrent, in remission, unspecified (HCC) (CMS/HCC) Chronic kidney disease, stage 2 (mild) custodial (current) use of insulin (CMS/HCC) Type 2 diabetes mellitus with hyperglycemia, with long-term current use of insulin (CMS/HCC)- Primary Insulin long-term use (CMS/HCC) Encounter for long-term (current) use of insulin Hyperlipemia, mixed ([facility]/HCC) Mixed hyperlipidemia Vitamin D deficiency Encounter for dietary consultation Class 2 obesity due to excess calories without serious comorbidity with body mass index (BMI) of 35.0 to 35.9 in adult documented in this encounter [facility]* Diagnosis Acute cough- Primary Nicotine abuse Nicotine dependence, cigarettes, in remission Polyneuropathy associated with underlying disease (CMS/HCC) Mixed hyperlipidemia ([facility]/HCC) Mixed hyperlipidemia Restless legs syndrome Restless legs syndrome (RLS) Hepatocellular carcinoma (CMS/HCC) Malignant neoplasm of liver, primary Stage 3a chronic kidney disease (HCC) ([facility]/HCC) Type 2 diabetes mellitus with hyperglycemia, with long-term current use of insulin ([facility]/HCC) custodial current use of insulin ([facility]/HCC) Immunodeficiency ([facility]/HCC) Unspecified immunity deficiency Type 2 diabetes mellitus with hyperglycemia, with long-term current use of insulin ([facility]/HCC)- Primary Acute cough Diarrhea, unspecified type Immunodeficiency (CMS/HCC) Unspecified immunity deficiency S/P autologous bone marrow transplantation ([facility]/HCC) Multiple myeloma not having achieved remission (CMS/HCC) Hepatocellular carcinoma ([facility]/HCC) Malignant neoplasm of liver, primary Preoperative clearance- Primary Unspecified pre-operative examination Encounter for pre-operative examination Hepatocellular carcinoma (CMS/HCC) Malignant neoplasm of liver, primary Multiple myeloma not having achieved remission ([facility]/HCC) Encounter for immunization Primary hypertension ([facility]/HCC) Unspecified essential hypertension Bone marrow transplant status ([facility]) Diabetic nephropathy associated with type 2 diabetes mellitus (HCC) ([facility]/HCC) Morbid (severe) obesity due to excess calories ([facility]/HCC) Polyneuropathy in diseases classified elsewhere ([facility]/HCC) Immunodeficiency, unspecified ([facility]/HCC) Body mass index (BMI) 35.0-35.9, adult Major depressive disorder, recurrent, in remission, unspecified (HCC) ([facility]) Chronic kidney disease, stage 2 (mild) custodial (current) use of insulin ([facility]/HCC) Spasm of cervical paraspinous muscle- Primary Spasm of muscle Whiplash injury, acute, subsequent encounter documented in this encounter [facility] HealthcareEvaluation note* Diagnosis Pre-op evaluation- Primary Preoperative examination, unspecified Abnormal finding of blood chemistry, unspecified Primary hypertension Unspecified essential hypertension Hypercholesteremia Pure hypercholesterolemia Chemotherapy-induced nausea Nausea alone Type 2 diabetes (HCC) Platelets decreased (HCC) Thrombocytopenia, unspecified Multiple myeloma in remission (HCC) Multiple myeloma in remission Depression, unspecified depression type Abdominal aortic aneurysm (AAA) without rupture, unspecified part (HCC) Multiple myeloma not having achieved remission (HCC)- Primary Multiple myeloma, without mention of having achieved remission documented in this encounter [facility] note* Diagnosis Pre-op evaluation- Primary Preoperative examination, unspecified Abnormal finding of blood chemistry, unspecified Primary hypertension Unspecified essential hypertension Hypercholesteremia Pure hypercholesterolemia Chemotherapy-induced nausea Nausea alone Type 2 diabetes (HCC) Platelets decreased (HCC) Thrombocytopenia, unspecified Multiple myeloma in remission (HCC) Multiple myeloma in remission Depression, unspecified depression type Abdominal aortic aneurysm (AAA) without rupture, unspecified part (HCC) Neutropenia associated with infection (HCC)- Primary Neutropenia due to infection Multiple myeloma not having achieved remission (HCC) Multiple myeloma, without mention of having achieved remission documented in this encounter [facility] note* Diagnosis Pre-op evaluation- Primary Preoperative examination, unspecified Abnormal finding of blood chemistry, unspecified Primary hypertension Unspecified essential hypertension Hypercholesteremia Pure hypercholesterolemia Chemotherapy-induced nausea Nausea alone Type 2 diabetes (HCC) Platelets decreased (HCC) Thrombocytopenia, unspecified Multiple myeloma in remission (HCC) Multiple myeloma in remission Depression, unspecified depression type Abdominal aortic aneurysm (AAA) without rupture, unspecified part (HCC) Multiple myeloma not having achieved remission (HCC)- Primary Multiple myeloma, without mention of having achieved remission Neutropenia associated with infection (HCC) Neutropenia due to infection 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 Stage 3 chronic kidney disease, unspecified whether stage 3a or 3b CKD (HCC) Thrombocytopenia (HCC) Thrombocytopenia, unspecified Type 2 diabetes (HCC) documented in this encounter [facility] note* Diagnosis Pre-op evaluation- Primary Preoperative examination, unspecified Abnormal finding of blood chemistry, unspecified Primary hypertension Unspecified essential hypertension Hypercholesteremia Pure hypercholesterolemia Chemotherapy-induced nausea Nausea alone Type 2 diabetes (HCC) Platelets decreased (HCC) Thrombocytopenia, unspecified Multiple myeloma in remission (HCC) Multiple myeloma in remission Depression, unspecified depression type Abdominal aortic aneurysm (AAA) without rupture, unspecified part (HCC) Neutropenia associated with infection (HCC)- Primary Neutropenia due to infection Multiple myeloma not having achieved remission (HCC) Multiple myeloma, without mention of having achieved remission [facility] [place] [facility]* Diagnosis Pre-op evaluation- Primary Preoperative examination, unspecified Abnormal finding of blood chemistry, unspecified Primary hypertension Unspecified essential hypertension Hypercholesteremia Pure hypercholesterolemia Chemotherapy-induced nausea Nausea alone Type 2 diabetes (HCC) Platelets decreased (HCC) Thrombocytopenia, unspecified Multiple myeloma in remission (HCC) Multiple myeloma in remission Depression, unspecified depression type Abdominal aortic aneurysm (AAA) without rupture, unspecified part (HCC) Neutropenia associated with infection (HCC)- Primary Neutropenia due to infection Multiple myeloma not having achieved remission (HCC) Multiple myeloma, without mention of having achieved remission [facility] [place] [facility]* Diagnosis Pre-op evaluation- Primary Preoperative examination, unspecified Abnormal finding of blood chemistry, unspecified Primary hypertension Unspecified essential hypertension Hypercholesteremia Pure hypercholesterolemia Chemotherapy-induced nausea Nausea alone Type 2 diabetes (HCC) Platelets decreased (HCC) Thrombocytopenia, unspecified Multiple myeloma in remission (HCC) Multiple myeloma in remission Depression, unspecified depression type Abdominal aortic aneurysm (AAA) without rupture, unspecified part (HCC) Neutropenia associated with infection (HCC)- Primary Neutropenia due to infection Multiple myeloma not having achieved remission (HCC) Multiple myeloma, without mention of having achieved remission documented in this encounter [facility] note* Diagnosis Pre-op evaluation- Primary Preoperative examination, unspecified Abnormal finding of blood chemistry, unspecified Primary hypertension Unspecified essential hypertension Hypercholesteremia Pure hypercholesterolemia Chemotherapy-induced nausea Nausea alone Type 2 diabetes (HCC) Platelets decreased (HCC) Thrombocytopenia, unspecified Multiple myeloma in remission (HCC) Multiple myeloma in remission Depression, unspecified depression type Abdominal aortic aneurysm (AAA) without rupture, unspecified part (HCC) Malnutrition of moderate degree (HCC) Malnutrition of moderate degree DM (diabetes mellitus), type 2 with complications (HCC) Type II or unspecified type diabetes mellitus with unspecified complication, not stated as uncontrolled Moderate episode of recurrent major depressive disorder (HCC) Multiple myeloma not having achieved remission (HCC) Multiple myeloma, without mention of having achieved remission 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 Neutropenia associated with infection (HCC) Neutropenia due to infection [facility] [place] [facility]* Diagnosis Pre-op evaluation- Primary Preoperative examination, unspecified Abnormal finding of blood chemistry, unspecified Primary hypertension Unspecified essential hypertension Hypercholesteremia Pure hypercholesterolemia Chemotherapy-induced nausea Nausea alone Type 2 diabetes (HCC) Platelets decreased (HCC) Thrombocytopenia, unspecified Multiple myeloma in remission (HCC) Multiple myeloma in remission Depression, unspecified depression type Abdominal aortic aneurysm (AAA) without rupture, unspecified part (HCC) Multiple myeloma not having achieved remission (HCC)- Primary Multiple myeloma, without mention of having achieved remission Malnutrition of moderate degree (HCC) Malnutrition of moderate degree DM (diabetes mellitus), type 2 with complications (HCC) Type II or unspecified type diabetes mellitus with unspecified complication, not stated as uncontrolled Moderate episode of recurrent major depressive disorder (HCC) 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 Neutropenia associated with infection (HCC) Neutropenia due to infection [facility] [place] [facility] Diagnosis Pre-op evaluation- Primary Preoperative examination, unspecified Abnormal finding of blood chemistry, unspecified Primary hypertension Unspecified essential hypertension Hypercholesteremia Pure hypercholesterolemia Chemotherapy-induced nausea Nausea alone Type 2 diabetes (HCC) Platelets decreased (HCC) Thrombocytopenia, unspecified Multiple myeloma in remission (HCC) Multiple myeloma in remission Depression, unspecified depression type Abdominal aortic aneurysm (AAA) without rupture, unspecified part (HCC) Multiple myeloma not having achieved remission (HCC)- Primary Multiple myeloma, without mention of having achieved remission [facility] [place] [facility]* Diagnosis Acute cough- Primary Nicotine abuse Nicotine dependence, cigarettes, in remission Polyneuropathy associated with underlying disease (CMS/HCC) Mixed hyperlipidemia (CMS/HCC) Mixed hyperlipidemia Restless legs syndrome Restless legs syndrome (RLS) Hepatocellular carcinoma (CMS/HCC) Malignant neoplasm of liver, primary Stage 3a chronic kidney disease (HCC) (CMS/HCC) Type 2 diabetes mellitus with hyperglycemia, with long-term current use of insulin (CMS/HCC) 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 (CMS/HCC) Immunodeficiency (CMS/HCC) Unspecified immunity deficiency Type 2 diabetes mellitus with hyperglycemia, with long-term current use of insulin (CMS/HCC)- Primary Acute cough Diarrhea, unspecified type Immunodeficiency (CMS/HCC) Unspecified immunity deficiency S/P autologous bone marrow transplantation (CMS/HCC) Multiple myeloma not having achieved remission (CMS/HCC) Hepatocellular carcinoma (CMS/HCC) Malignant neoplasm of liver, primary Preoperative clearance- Primary Unspecified pre-operative examination Encounter for pre-operative examination Hepatocellular carcinoma (CMS/HCC) Malignant neoplasm of liver, primary Multiple myeloma not having achieved remission (CMS/HCC) Encounter for immunization Primary hypertension (CMS/HCC) Unspecified essential hypertension Bone marrow transplant status (CMS/HCC) Diabetic nephropathy associated with type 2 diabetes mellitus (HCC) (CMS/HCC) Morbid (severe) obesity due to excess calories (CMS/HCC) Polyneuropathy in diseases classified elsewhere (CMS/HCC) Immunodeficiency, unspecified (CMS/HCC) Body mass index (BMI) 35.0-35.9, adult Major depressive disorder, recurrent, in remission, unspecified (HCC) (CMS/HCC) Chronic kidney disease, stage 2 (mild) 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 (CMS/HCC) Spasm of cervical paraspinous muscle- Primary Spasm of muscle Whiplash injury, acute, subsequent encounter [facility] Pre-op evaluation- Primary Preoperative examination, unspecified Abnormal finding of blood chemistry, unspecified Primary hypertension Unspecified essential hypertension Hypercholesteremia Pure hypercholesterolemia Chemotherapy-induced nausea Nausea alone Type 2 diabetes (HCC) Platelets decreased (HCC) Thrombocytopenia, unspecified Multiple myeloma in remission (HCC) Multiple myeloma in remission Depression, unspecified depression type Abdominal aortic aneurysm (AAA) without rupture, unspecified part (HCC) Multiple myeloma not having achieved remission (HCC)- Primary Multiple myeloma, without mention of having achieved remission Chemotherapy-induced neutropenia (HCC) Drug induced neutropenia Hepatocellular carcinoma (HCC) Malignant neoplasm of liver, primary Type 2 diabetes mellitus without complication, with long-term current use of insulin (HCC) [facility] [place] [facility]* Diagnosis Pre-op evaluation- Primary Preoperative examination, unspecified Abnormal finding of blood chemistry, unspecified Primary hypertension Unspecified essential hypertension Hypercholesteremia Pure hypercholesterolemia Chemotherapy-induced nausea Nausea alone Type 2 diabetes (HCC) Platelets decreased (HCC) Thrombocytopenia, unspecified Multiple myeloma in remission (HCC) Multiple myeloma in remission Depression, unspecified depression type Abdominal aortic aneurysm (AAA) without rupture, unspecified part (HCC) Neutropenia associated with infection (HCC)- Primary Neutropenia due to infection Multiple myeloma not having achieved remission (HCC) Multiple myeloma, without mention of having achieved remission [facility] [place] [facility]* Diagnosis Pre-op evaluation- Primary Preoperative examination, unspecified Abnormal finding of blood chemistry, unspecified Primary hypertension Unspecified essential hypertension Hypercholesteremia Pure hypercholesterolemia Chemotherapy-induced nausea Nausea alone Type 2 diabetes (HCC) Platelets decreased (HCC) Thrombocytopenia, unspecified Multiple myeloma in remission (HCC) Multiple myeloma in remission Depression, unspecified depression type Abdominal aortic aneurysm (AAA) without rupture, unspecified part (HCC) Neutropenia associated with infection (HCC)- Primary Neutropenia due to infection Multiple myeloma not having achieved remission (HCC) Multiple myeloma, without mention of having achieved remission [facility] [place] [facility]* Diagnosis Pre-op evaluation- Primary Preoperative examination, unspecified Abnormal finding of blood chemistry, unspecified Primary hypertension Unspecified essential hypertension Hypercholesteremia Pure hypercholesterolemia Chemotherapy-induced nausea Nausea alone Type 2 diabetes (HCC) Platelets decreased (HCC) Thrombocytopenia, unspecified Multiple myeloma in remission (HCC) Multiple myeloma in remission Depression, unspecified depression type Abdominal aortic aneurysm (AAA) without rupture, unspecified part (HCC) Neutropenia associated with infection (HCC)- Primary Neutropenia due to infection Multiple myeloma not having achieved remission (HCC) Multiple myeloma, without mention of having achieved remission [facility] [place] [facility]* Diagnosis Pre-op evaluation- Primary Preoperative examination, unspecified Abnormal finding of blood chemistry, unspecified Primary hypertension Unspecified essential hypertension Hypercholesteremia Pure hypercholesterolemia Chemotherapy-induced nausea Nausea alone Type 2 diabetes (HCC) Platelets decreased (HCC) Thrombocytopenia, unspecified Multiple myeloma in remission (HCC) Multiple myeloma in remission Depression, unspecified depression type Abdominal aortic aneurysm (AAA) without rupture, unspecified part (HCC) Multiple myeloma not having achieved remission (HCC)- Primary Multiple myeloma, without mention of having achieved remission [facility] [place] [facility]* Diagnosis Pre-op evaluation- Primary Preoperative examination, unspecified Abnormal finding of blood chemistry, unspecified Primary hypertension Unspecified essential hypertension Hypercholesteremia Pure hypercholesterolemia Chemotherapy-induced nausea Nausea alone Type 2 diabetes (HCC) Platelets decreased (HCC) Thrombocytopenia, unspecified Multiple myeloma in remission (HCC) Multiple myeloma in remission Depression, unspecified depression type Abdominal aortic aneurysm (AAA) without rupture, unspecified part (HCC) Encounter for education- Primary Counseling NOS [facility] [place] [facility]* Diagnosis Acute cough- Primary Nicotine abuse Nicotine dependence, cigarettes, in remission Polyneuropathy associated with underlying disease (CMS/HCC) Mixed hyperlipidemia (CMS/HCC) Mixed hyperlipidemia Restless legs syndrome Restless legs syndrome (RLS) Hepatocellular carcinoma (CMS/HCC) Malignant neoplasm of liver, primary Stage 3a chronic kidney disease (HCC) (CMS/HCC) Type 2 diabetes mellitus with hyperglycemia, with long-term current use of insulin (CMS/HCC) 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 (CMS/HCC) Immunodeficiency (CMS/HCC) Unspecified immunity deficiency Type 2 diabetes mellitus with hyperglycemia, with long-term current use of insulin (CMS/HCC)- Primary Acute cough Diarrhea, unspecified type Immunodeficiency (CMS/HCC) Unspecified immunity deficiency S/P autologous bone marrow transplantation (CMS/HCC) Multiple myeloma not having achieved remission (CMS/HCC) Hepatocellular carcinoma (CMS/HCC) Malignant neoplasm of liver, primary Preoperative clearance- Primary Unspecified pre-operative examination Encounter for pre-operative examination Hepatocellular carcinoma (CMS/HCC) Malignant neoplasm of liver, primary Multiple myeloma not having achieved remission (CMS/HCC) Encounter for immunization Primary hypertension (CMS/HCC) Unspecified essential hypertension Bone marrow transplant status (CMS/HCC) Diabetic nephropathy associated with type 2 diabetes mellitus (HCC) (CMS/HCC) Morbid (severe) obesity due to excess calories (CMS/HCC) Polyneuropathy in diseases classified elsewhere (CMS/HCC) Immunodeficiency, unspecified (CMS/HCC) Body mass index (BMI) 35.0-35.9, adult Major depressive disorder, recurrent, in remission, unspecified (HCC) (CMS/HCC) Chronic kidney disease, stage 2 (mild) custodial (current) use of insulin (CMS/HCC) Spasm of cervical paraspinous muscle- Primary Spasm of muscle Whiplash injury, acute, subsequent encounter [facility] Pre-op evaluation- Primary Preoperative examination, unspecified Abnormal finding of blood chemistry, unspecified Primary hypertension Unspecified essential hypertension Hypercholesteremia Pure hypercholesterolemia Chemotherapy-induced nausea Nausea alone Type 2 diabetes (HCC) Platelets decreased (HCC) Thrombocytopenia, unspecified Multiple myeloma in remission (HCC) Multiple myeloma in remission Depression, unspecified depression type Abdominal aortic aneurysm (AAA) without rupture, unspecified part (HCC) Multiple myeloma not having achieved remission (HCC)- Primary Multiple myeloma, without mention of having achieved remission [facility] Acute cough- Primary Nicotine abuse Nicotine dependence, cigarettes, in remission Polyneuropathy associated with underlying disease (CMS/HCC) Mixed hyperlipidemia (CMS/HCC) Mixed hyperlipidemia Restless legs syndrome Restless legs syndrome (RLS) Hepatocellular carcinoma (CMS/HCC) Malignant neoplasm of liver, primary Stage 3a chronic kidney disease (HCC) (CMS/HCC) Type 2 diabetes mellitus with hyperglycemia, with long-term current use of insulin (CMS/HCC) 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 (CMS/HCC) Immunodeficiency (CMS/HCC) Unspecified immunity deficiency Type 2 diabetes mellitus with hyperglycemia, with long-term current use of insulin (CMS/HCC)- Primary Acute cough Diarrhea, unspecified type Immunodeficiency (CMS/HCC) Unspecified immunity deficiency S/P autologous bone marrow transplantation (CMS/HCC) Multiple myeloma not having achieved remission (CMS/HCC) Hepatocellular carcinoma (CMS/HCC) Malignant neoplasm of liver, primary Preoperative clearance- Primary Unspecified pre-operative examination Encounter for pre-operative examination Hepatocellular carcinoma (CMS/HCC) Malignant neoplasm of liver, primary Multiple myeloma not having achieved remission (CMS/HCC) Encounter for immunization Primary hypertension (CMS/HCC) Unspecified essential hypertension Bone marrow transplant status (CMS/HCC) Diabetic nephropathy associated with type 2 diabetes mellitus (HCC) (CMS/HCC) Morbid (severe) obesity due to excess calories (CMS/HCC) Polyneuropathy in diseases classified elsewhere (CMS/HCC) Immunodeficiency, unspecified (CMS/HCC) Body mass index (BMI) 35.0-35.9, adult Major depressive disorder, recurrent, in remission, unspecified (HCC) (CMS/HCC) Chronic kidney disease, stage 2 (mild) 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 ([facility]/HCC) Spasm of cervical paraspinous muscle- Primary Spasm of muscle Whiplash injury, acute, subsequent encounter [facility] Diagnosis Pre-op evaluation- Primary Preoperative examination, unspecified Abnormal finding of blood chemistry, unspecified Primary hypertension Unspecified essential hypertension Hypercholesteremia Pure hypercholesterolemia Chemotherapy-induced nausea Nausea alone Type 2 diabetes (HCC) Platelets decreased (HCC) Thrombocytopenia, unspecified Multiple myeloma in remission (HCC) Multiple myeloma in remission Depression, unspecified depression type Abdominal aortic aneurysm (AAA) without rupture, unspecified part (HCC) Neutropenia associated with infection (HCC)- Primary Neutropenia due to infection Multiple myeloma not having achieved remission (HCC) Multiple myeloma, without mention of having achieved remission [facility] Pre-op evaluation- Primary Preoperative examination, unspecified Abnormal finding of blood chemistry, unspecified Primary hypertension Unspecified essential hypertension Hypercholesteremia Pure hypercholesterolemia Chemotherapy-induced nausea Nausea alone Type 2 diabetes (HCC) Platelets decreased (HCC) Thrombocytopenia, unspecified Multiple myeloma in remission (HCC) Multiple myeloma in remission Depression, unspecified depression type Abdominal aortic aneurysm (AAA) without rupture, unspecified part (HCC) Neutropenia associated with infection (HCC)- Primary Neutropenia due to infection Multiple myeloma not having achieved remission (HCC) Multiple myeloma, without mention of having achieved remission documented in this encounter [facility] note* Diagnosis Pre-op evaluation- Primary Preoperative examination, unspecified Abnormal finding of blood chemistry, unspecified Primary hypertension Unspecified essential hypertension Hypercholesteremia Pure hypercholesterolemia Chemotherapy-induced nausea Nausea alone Type 2 diabetes (HCC) Platelets decreased (HCC) Thrombocytopenia, unspecified Multiple myeloma in remission (HCC) Multiple myeloma in remission Depression, unspecified depression type Abdominal aortic aneurysm (AAA) without rupture, unspecified part (HCC) Neutropenia associated with infection (HCC)- Primary Neutropenia due to infection Multiple myeloma not having achieved remission (HCC) Multiple myeloma, without mention of having achieved remission documented in this encounter [facility] note* Diagnosis Pre-op evaluation- Primary Preoperative examination, unspecified Abnormal finding of blood chemistry, unspecified Primary hypertension Unspecified essential hypertension Hypercholesteremia Pure hypercholesterolemia Chemotherapy-induced nausea Nausea alone Type 2 diabetes (HCC) Platelets decreased (HCC) Thrombocytopenia, unspecified Multiple myeloma in remission (HCC) Multiple myeloma in remission Depression, unspecified depression type Abdominal aortic aneurysm (AAA) without rupture, unspecified part (HCC) Multiple myeloma not having achieved remission (HCC) Multiple myeloma, without mention of having achieved remission Neutropenia associated with infection (HCC) Neutropenia due to infection 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), type 2 with complications (HCC) Type II or unspecified type diabetes mellitus with unspecified complication, not stated as uncontrolled Hepatocellular carcinoma (HCC) Malignant neoplasm of liver, primary Thrombocytopenia (HCC) Thrombocytopenia, unspecified documented in this encounter [facility] note* Diagnosis Pre-op evaluation- Primary Preoperative examination, unspecified Abnormal finding of blood chemistry, unspecified Primary hypertension Unspecified essential hypertension Hypercholesteremia Pure hypercholesterolemia Chemotherapy-induced nausea Nausea alone Type 2 diabetes (HCC) Platelets decreased (HCC) Thrombocytopenia, unspecified Multiple myeloma in remission (HCC) Multiple myeloma in remission Depression, unspecified depression type Abdominal aortic aneurysm (AAA) without rupture, unspecified part (HCC) Neutropenia associated with infection (HCC)- Primary Neutropenia due to infection Multiple myeloma not having achieved remission (HCC) Multiple myeloma, without mention of having achieved remission documented in this encounter [facility] note* Diagnosis Pre-op evaluation- Primary Preoperative examination, unspecified Abnormal finding of blood chemistry, unspecified Primary hypertension Unspecified essential hypertension Hypercholesteremia Pure hypercholesterolemia Chemotherapy-induced nausea Nausea alone Type 2 diabetes (HCC) Platelets decreased (HCC) Thrombocytopenia, unspecified Multiple myeloma in remission (HCC) Multiple myeloma in remission Depression, unspecified depression type Abdominal aortic aneurysm (AAA) without rupture, unspecified part (HCC) Multiple myeloma not having achieved remission (HCC)- Primary Multiple myeloma, without mention of having achieved remission Neutropenia associated with infection (HCC) Neutropenia due to infection 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), type 2 with complications (HCC) Type II or unspecified type diabetes mellitus with unspecified complication, not stated as uncontrolled Hepatocellular carcinoma (HCC) Malignant neoplasm of liver, primary Thrombocytopenia (HCC) Thrombocytopenia, unspecified documented in this encounter [facility] note* Diagnosis Pre-op evaluation- Primary Preoperative examination, unspecified Abnormal finding of blood chemistry, unspecified Primary hypertension Unspecified essential hypertension Hypercholesteremia Pure hypercholesterolemia Chemotherapy-induced nausea Nausea alone Type 2 diabetes (HCC) Platelets decreased (HCC) Thrombocytopenia, unspecified Multiple myeloma in remission (HCC) Multiple myeloma in remission Depression, unspecified depression type Abdominal aortic aneurysm (AAA) without rupture, unspecified part (HCC) Multiple myeloma not having achieved remission (HCC)- Primary Multiple myeloma, without mention of having achieved remission documented in this encounter [facility] note* Diagnosis Pre-op evaluation- Primary Preoperative examination, unspecified Abnormal finding of blood chemistry, unspecified Primary hypertension Unspecified essential hypertension Hypercholesteremia Pure hypercholesterolemia Chemotherapy-induced nausea Nausea alone Type 2 diabetes (HCC) Platelets decreased (HCC) Thrombocytopenia, unspecified Multiple myeloma in remission (HCC) Multiple myeloma in remission Depression, unspecified depression type Abdominal aortic aneurysm (AAA) without rupture, unspecified part (HCC) Paroxysmal atrial fibrillation (HCC)- Primary Atrial fibrillation documented in this encounter [facility] note* Diagnosis Pre-op evaluation- Primary Preoperative examination, unspecified Abnormal finding of blood chemistry, unspecified Primary hypertension Unspecified essential hypertension Hypercholesteremia Pure hypercholesterolemia Chemotherapy-induced nausea Nausea alone Type 2 diabetes (HCC) Platelets decreased (HCC) Thrombocytopenia, unspecified Multiple myeloma in remission (HCC) Multiple myeloma in remission Depression, unspecified depression type Abdominal aortic aneurysm (AAA) without rupture, unspecified part (HCC) Multiple myeloma not having achieved remission (HCC)- Primary Multiple myeloma, without mention of having achieved remission Chemotherapy-induced neutropenia (HCC) Drug induced neutropenia Hepatocellular carcinoma (HCC) Malignant neoplasm of liver, primary Type 2 diabetes (HCC) Atrial fibrillation, unspecified type (HCC) documented in this encounter [facility] note* Diagnosis Pre-op evaluation- Primary Preoperative examination, unspecified Abnormal finding of blood chemistry, unspecified Primary hypertension Unspecified essential hypertension Hypercholesteremia Pure hypercholesterolemia Chemotherapy-induced nausea Nausea alone Type 2 diabetes (HCC) Platelets decreased (HCC) Thrombocytopenia, unspecified Multiple myeloma in remission (HCC) Multiple myeloma in remission Depression, unspecified depression type Abdominal aortic aneurysm (AAA) without rupture, unspecified part (HCC) Multiple myeloma not having achieved remission (HCC)- Primary Multiple myeloma, without mention of having achieved remission Chemotherapy-induced neutropenia (HCC) Drug induced neutropenia Hepatocellular carcinoma (HCC) Malignant neoplasm of liver, primary Neutropenia associated with infection (HCC) Neutropenia due to infection Thrombocytopenia (HCC) Thrombocytopenia, unspecified 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), type 2 with complications (HCC) Type II or unspecified type diabetes mellitus with unspecified complication, not stated as uncontrolled Stage 3 chronic kidney disease, unspecified whether stage 3a or 3b CKD (HCC) documented in this encounter [facility] note* Diagnosis Pre-op evaluation- Primary Preoperative examination, unspecified Abnormal finding of blood chemistry, unspecified Primary hypertension Unspecified essential hypertension Hypercholesteremia Pure hypercholesterolemia Chemotherapy-induced nausea Nausea alone Type 2 diabetes (HCC) Platelets decreased (HCC) Thrombocytopenia, unspecified Multiple myeloma in remission (HCC) Multiple myeloma in remission Depression, unspecified depression type Abdominal aortic aneurysm (AAA) without rupture, unspecified part (HCC) Multiple myeloma not having achieved remission (HCC)- Primary Multiple myeloma, without mention of having achieved remission Thrombocytopenia (HCC) Thrombocytopenia, unspecified Neutropenia associated with infection (HCC) Neutropenia due to infection documented in this encounter [facility] note* Diagnosis Pre-op evaluation- Primary Preoperative examination, unspecified Abnormal finding of blood chemistry, unspecified Primary hypertension Unspecified essential hypertension Hypercholesteremia Pure hypercholesterolemia Chemotherapy-induced nausea Nausea alone Type 2 diabetes (HCC) Platelets decreased (HCC) Thrombocytopenia, unspecified Multiple myeloma in remission (HCC) Multiple myeloma in remission Depression, unspecified depression type Abdominal aortic aneurysm (AAA) without rupture, unspecified part (HCC) Neutropenia associated with infection (HCC)- Primary Neutropenia due to infection Multiple myeloma not having achieved remission (HCC) Multiple myeloma, without mention of having achieved remission [facility] [place] [facility] Diagnosis Pre-op evaluation- Primary Preoperative examination, unspecified Abnormal finding of blood chemistry, unspecified Primary hypertension Unspecified essential hypertension Hypercholesteremia Pure hypercholesterolemia Chemotherapy-induced nausea Nausea alone Type 2 diabetes (HCC) Platelets decreased (HCC) Thrombocytopenia, unspecified Multiple myeloma in remission (HCC) Multiple myeloma in remission Depression, unspecified depression type Abdominal aortic aneurysm (AAA) without rupture, unspecified part (HCC) Neutropenia associated with infection (HCC)- Primary Neutropenia due to infection Multiple myeloma not having achieved remission (HCC) Multiple myeloma, without mention of having achieved remission documented in this encounter [facility] general Narrative - Reported* Type Description Date Medical History MYLOMA Surgical History VARICOUSEAL [place] [facility] general Narrative - Reported* Type Description Date Medical History MYLOMA Medical History type 2 diabetes Medical History HTN Medical History GLAUCOMA Medical History MIXED HYPERLIPIDEMIA Medical History DIVERTICULOSIS Medical History CLEFT PALATE Surgical History VARICOCELE Surgical History STEM CELL TRANSPLANT 09/26 Surgical History RT MF TRIGGER REALEASE Surgical History FINGER REATTACH Surgical History HAMMERTOE REPAIR Surgical History ARTHROSCOPIC DEBRIDEMENT OF KNE E JOINT Surgical History COLONSCOPY Surgical History LEFT SHOULDER ARTHROSCOPY Surgical History BONE MARROW BIOPSY [place] [facility] general Narrative - Reported* Type Description Date Medical History Multiple MYLOMA Medical History type 2 diabetes Medical History HTN Medical History GLAUCOMA Medical History MIXED HYPERLIPIDEMIA Medical History DIVERTICULOSIS Medical History CLEFT PALATE Medical History LIVER CANCER Medical History HX of MRSA LEFT SIDE FACE Surgical History VARICOCELE Surgical History STEM CELL TRANSPLANT 09/26 Surgical History RT MF TRIGGER REALEASE Surgical History FINGER REATTACH Surgical History HAMMERTOE REPAIR Surgical History ARTHROSCOPIC DEBRIDEMENT OF KNE E JOINT Surgical History COLONSCOPY Surgical History LEFT SHOULDER ARTHROSCOPY Surgical History BONE MARROW BIOPSY Surgical History PARTIAL LIVER RESECTION AND CHO LECYSTECTOMY 10/08/2022 [facility] Discharge instructions Additional Instructions Take the antibiotic Bactrim twice a day for 10 days take with food Leave the packing in place but you may change the dressing as needed May take [id number] medication for discomfort See Dr. Michael as scheduled this week If the abscess is doing well you could see Dr. Michael for the packing removal Return to the ER if worsening redness swelling pain fever chills or any other concerns I gave you the number down below for local custom protection officer general surgeon and plastic surgeon for follow[facility] the [facility] (narrative)* Diagnostic Procedure Only (Routine) - Pending Review Specialty Diagnoses / Procedures Referred By Contac t Referred To Contact US IMAGING Diagnoses Renal lesion Procedures US KIDNEY/BLADDER US RETROPERITONEAL REAL TIME W/IMAGE COMPLETE Gloria Lopez APRN.CNP [phone] [facility] [place] [address] Referral ID Status Reason Start Date Expiration Date Visits Requested Visits Authorized [id number] Pending Review Auto-Generat ed Referral 03/26/2024 1 1 T [facility] for referral (narrative)* Diagnostic Procedure Only (Routine) - Closed Specialty Diagnoses / Procedures Referred By Contac t Referred To Contact US IMAGING Diagnoses Renal lesion Procedures US KIDNEY/BLADDER US RETROPERITONEAL REAL TIME W/IMAGE COMPLETE Gloria Lopez APRN.CNP [address] [place] [address] [facility] [place] [address] Referral ID Status Reason Start Date Expiration Date V isits Requested Visits Authorized [id number] Closed Auto-Generate d Referral 02/25/2023 03/26/2024 1 1 [facility] for visit Narrative* Diagnostic Procedure Only (Routine) - Closed Specialty Diagnoses / Procedures Referred By Contac t Referred To Contact US IMAGING Diagnoses Renal lesion Procedures US KIDNEY/BLADDER US RETROPERITONEAL REAL TIME W/IMAGE COMPLETE Gloria Lopez APRN.CNP [address] [phone] [place] [address] Referral ID Status Reason Start Date Expiration Date V isits Requested Visits Authorized [id number] Closed Auto-Generate d Referral 02/25/2023 03/26/2024 1 1 [facility] for visit Narrative* Diagnostic Procedure Only (Routine) - Closed Specialty Diagnoses / Procedures Referred By Mimi t Referred To Contact Radiology / IMAGING Diagnoses Multiple myeloma not having achieved remission *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 WHEN CHECKING IN MRI of Liver w/wo Procedures MRI ABDOMEN W/O & W/CONTRAST MATERIAL MRI WWO ABD 300 Vimal Crandall MD [address] [place] [address] [facility] [address] [place] [address] Referral ID Status Reason Start Date Expiration Date Visits Re quested Visits Authorized [id number] Closed 09/19/2023 05/08/2024 1 1 [facility] for visit Narrative* Consultation (Routine) - Authorized Specialty Diagnoses / Procedures Referred By Contac t Referred To Contact Physical Therapy Diagnoses Spasm of cervical paraspinous muscle Procedures OK OFFICE/OUTPATIENT NEW HIGH MDM 60 MINUTES Letha Best MD [address] [place] [address] Phone: tel: fax: Kashmir Lua, PT [address] [facility] [place] [address] Phone: tel: fax: Referral ID Status Reason Start Date Expiration Date Visits Requested Visits Authorized [id number] Authorized Consult and Treat 05/24/2024 11/20/2024 20 20 [facility] [place] for visit Narrative* Consultation (Routine) - Authorized Specialty Diagnoses / Procedures Referred By Contac t Referred To Contact Physical Therapy Diagnoses Spasm of cervical paraspinous muscle Procedures OK OFFICE/OUTPATIENT NEW HIGH MDM 60 MINUTES Letha Best MD [address] [place] [address] Phone: tel: fax: Kashmir Lua, PT [address] [place] [address] Phone: tel: fax: Referral ID Status Reason Start Date Expiration Date Visits Requested Visits Authorized [id number] Authorized Consult and Treat 05/24/2024 11/20/2024 50 50 [facility]* [place] Prior Authorization (Routine) - Authorized Specialty Diagnoses / Procedures Referred By Contac t Referred To Contact Diagnoses Neutropenia associated with infection (HCC) Multiple myeloma not having achieved remission (HCC) Procedures BRIGIDESTVimal Taylor MD [address] [place] [address] [place] [address] Phone: tel: fax: Hematology/Oncology [address] [place] [address] [place] [address] Phone: tel: fax: Referral ID Status Reason Start Date Expiration Date V isits Requested Visits Authorized [id number] Authorized 03/12/2024 09/08/2024 99 99 [facility] for visit Narrative* Consultation (Routine) - Authorized Specialty Diagnoses / Procedures Referred By Contac t Referred To Contact Physical Therapy Diagnoses Spasm of cervical paraspinous muscle Procedures OK OFFICE/OUTPATIENT NEW HIGH MDM 60 MINUTES Letha Best MD [address] [place] [address] Phone: tel: fax: Kashmir Lua, PT [address] [place] [address] Phone: tel: fax: Referral ID Status Reason Start Date Expiration Date Visits Requested Visits Authorized [id number] Authorized Consult and Treat 05/24/2024 05/08/2025 50 50 [facility] N[facility]* [place] Prior Authorization (Routine) - Authorized Specialty Diagnoses / Procedures Referred By Contac t Referred To Contact Diagnoses Multiple myeloma not having achieved remission (HCC) Procedures INJ, DARATUMUMAB, HYALURONIDASE 10 MG Vimal Crandall MD [address] [place] [address] Phone: tel: fax: Vimal Crandall MD [address] [place] [address] [place] [address] Phone: tel: fax: Referral ID Status Reason Start Date Expiration Date V isits Requested Visits Authorized [id number] Authorized 05/27/2024 05/08/2025 99 99 [facility] Summary Purpose Family History Relationship Condition Age at Onset Recorded Date/T elidia father Heart disease Unknown Not Specified Malignant neoplasm of brain Unknown Advance Directives Documents on File Type Date Recorded 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 Advance Directive(s) 09/09/2020 1:48 PM Advance Directive(s) 08/20/2020 11:15 AM Advance Directive(s) 08/20/2020 11:16 AM Advance Directive(s) 08/12/2020 2:34 PM Documents on File Type Date Recorded 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 Advance Directive(s) 08/20/2020 11:15 AM Advance Directive(s) 08/20/2020 11:16 AM Advance Directive Response Recorded Date/ Time Advance Directives No June 17, 2020 2:28pm Advance Directive Response Recorded Date/ Time Advance Directives No June 17, 2020 1:28pm Documents on File Type Date Recorded 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 Advance Directive(s) 08/20/2020 11:15 AM Advance Directive(s) 08/20/2020 11:16 AM Documents on File Type Date Recorded 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 Advance Directive(s) 08/20/2020 11:16 AM Advance Directive(s) 08/20/2020 11:15 AM Documents on File Type Date Recorded 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 Advance Directive(s) 08/20/2020 11:16 AM Advance Directive(s) 08/20/2020 11:15 AM Date Activated Date Inactivated Comments 04/19/2024 11:12 PM 04/24/2024 6:32 PM Question Answer Comments Full Code Order Discussed With: Patient Date Activated Date Inactivated Comments 04/19/2024 11:12 PM 04/24/2024 6:32 PM Question Answer Comments Full Code Order Discussed With: Patient Date Activated Date Inactivated Comments 07/12/2024 11:10 PM Date Activated Date Inactivated Comments 04/19/2024 11:12 PM 04/24/2024 6:32 PM Question Answer Comments Full Code Order Discussed With: Patient Date Activated Date Inactivated Comments 07/12/2024 11:10 PM 07/16/2024 8:09 PM Date Activated Date Inactivated Comments 07/12/2024 11:10 PM 07/16/2024 8:09 PM Date Activated Date Inactivated Comments 04/19/2024 11:12 PM 04/24/2024 6:32 PM Question Answer Comments Full Code Order Discussed With: Patient Chief Complaint and Reason for Visit Chief Complaint sent by dr willard removed Abscess on L cheek area Chief Complaint L30.9 Reason for Referral Specialty Diagnoses / Procedures Referred By Contac t Referred To Contact Diagnoses Multiple myeloma not having achieved remission (HCC) Procedures CONSULT TO HEMATOLOGY/ONCOLOGY OFFICE/OUTPATIENT [facility] 60 MINUTES Lorena lBackwell PA-C [address] [place] [address] [place] [address] Referral ID Status Reason Start Date Expiration Date Visits Requested Visits Authorized [id number] Authorized PCP Requested Referral 06/06/2024 06/06/2025 1 1 Specialty Diagnoses / Procedures Referred By Contac t Referred To Contact Urology Diagnoses Renal cyst, right Hepatocellular carcinoma (HCC) Procedures [place] [address] [address] [address] [place] [address] [place] [address] Referral ID Status Reason Start Date Expiration Date Visits Requested Visits Authorized [id number] Ref Not Required PCP Requested Referral 3 02/21/2024 1 1 Specialty Diagnoses / Procedures Referred By Contac t Referred To Contact MR IMAGING Diagnoses Hepatocellular carcinoma (HCC) Procedures MRI LIVER WO/W IVCON MRI ABDOMEN W/O & W/CONTRAST MATERIAL Alejandra aMddox, INSURANCE SALESMAN.HIM MANAGER [address] [place] [address] [facility] Referral ID Status Reason Start Date Expiration Date Visits Requested Visits Authorized [id number] Pending Review Auto-Generat ed Referral 05/24/2023 03/22/2024 1 1 Specialty Diagnoses / Procedures Referred By Contac t Referred To Contact CT IMAGING Diagnoses Hepatocellular carcinoma (HCC) Procedures CT LIVER W IVCON CT ABDOMEN W/CONTRAST Alejandra Maddox, TUTU.HIM MANAGER [address] [place] [address] [place] [address] Referral ID Status Reason Start Date Expiration Date Visits Requested Visits Authorized [id number] Pending Review Auto-Generat ed Referral 01/18/2023 02/17/2024 1 1 Specialty Diagnoses / Procedures Referred By Contac t Referred To Contact MR IMAGING Diagnoses Hepatocellular carcinoma (HCC) Procedures MRI LIVER WO/W IVCON MRI ABDOMEN W/O & W/[place] [address] [address] [facility] [address] [place] [address] Mr Imaging Referral ID Status Reason Start Date Expiration Date Visits Requested Visits Authorized [id number] Pending Review Auto-Generat ed Referral 11/11/2022 12/11/2023 1 1 Specialty Diagnoses / Procedures Referred By Contac t Referred To Contact General Surgery Diagnoses Hepatocellular carcinoma (HCC) Procedures CONSULT TO GENERAL SURGERY OFFICE/OUTPATIENT [facility] 60-74 MINUTES Vimal Crandall MD [address] [place] [address] [place] [address] Referral ID Status Reason Start Date Expiration Date Visits Requested Visits Authorized [id number] Pending Review PCP Requested Referral 09/01/2022 09/01/2023 1 1 Reason cyst removal Diagnosis 1 Abscess of face (L02 .01) Referral Organization [facility] Referring Provider First Name Fito Referring Provider Last Name Blank Referring Provider Specialty Infectious Disease Referred Organization [facility] Referred Address [address],[place], [place],[address] Referred Provider Specialty Dermatology Referral Priority Routine Medications Administered Section Inactive Administered Medications - up to 3 most recent administrations Medication Order MAR Action Action Date Dose Rate Site ALPRAZolam 0.5 mg tab(s) (XANAX) 0.5 mg, ORAL, ONCE, 1 dose, On Marilyn 01/13/23 at 1230, Take 1 tablet by mouth one time only for 1 dose. For MRI anxiolysis, Intraprocedure Given 01/13/2023 12:07 PM EDT 0.5 mg Additional Source Comments (unrecognized sect ion and content) No Status Records FoundNo Status Records FoundNo Status Records FoundNo Status Records FoundNo Status Records FoundNo Status Records FoundNo Status Records FoundNo Status Records FoundNo Status Records FoundNo Status Records FoundNo Status Records Found INFORMATION SOURCE (unrecogn ized section and content) DATE CREATED AUTHOR 12/28/2020 Bowden Stoddard [facility] ical [facility] DATE CREATED AUTHOR AUTHOR'S ORGANIZ ATION 11/04/2021 [facility] dical Specialist DATE CREATED AUTHOR AUTHOR'S ORGANIZ ATION 08/05/2022 [facility] DATE CREATED AUTHOR AUTHOR'S ORGANIZ ATION 08/12/2022 [facility] DATE CREATED AUTHOR AUTHOR'S ORGANIZ ATION 09/03/2022 [facility] DATE CREATED AUTHOR AUTHOR'S ORGANIZ ATION 10/19/2022 [facility] dical Center DATE CREATED AUTHOR AUTHOR'S ORGANIZ ATION 10/21/2023 [facility] DATE CREATED AUTHOR AUTHOR'S ORGANIZ ATION 03/20/2024 [facility] DATE CREATED AUTHOR AUTHOR'S ORGANIZ ATION 07/12/2024 [facility] dical Specialists EPIC DATE CREATED AUTHOR AUTHOR'S ORGANIZ ATION 07/22/2024 [facility] DATE CREATED AUTHOR AUTHOR'S ORGANIZ ATION 07/31/2024 [facility] Source Comments (unrecognize d section and content) In the event this informatio n is protected by the Federal Confidentiality of Alcohol and Drug Abuse Patient Records regulations: The Federal rules restrict any use of the information to criminally investigate or prosecute any alcohol or drug abuse patient.[facility] the event this information is protected by the Federal Confidentiality of Alcohol and Drug Abuse Patient Records regulations: The Federal rules restrict any use of the information to criminally investigate or prosecute any alcohol or drug abuse patient.[facility] the event this information is protected by the Federal Confidentiality of Alcohol and Drug Abuse Patient Records regulations: The Federal rules restrict any use of the information to criminally investigate or prosecute any alcohol or drug abuse patient.[facility] the event this information is protected by the Federal Confidentiality of Alcohol and Drug Abuse Patient Records regulations: The Federal rules restrict any use of the information to criminally investigate or prosecute any alcohol or drug abuse patient.[facility] the event this information is protected by the Federal Confidentiality of Alcohol and Drug Abuse Patient Records regulations: The Federal rules restrict any use of the information to criminally investigate or prosecute any alcohol or drug abuse patient.[facility] the event this information is protected by the Federal Confidentiality of Alcohol and Drug Abuse Patient Records regulations: The Federal rules restrict any use of the information to criminally investigate or prosecute any alcohol or drug abuse patient.[facility] the event this information is protected by the Federal Confidentiality of Alcohol and Drug Abuse Patient Records regulations: The Federal rules restrict any use of the information to criminally investigate or prosecute any alcohol or drug abuse patient.[facility] HospitalIn the event this information is protected by the Federal Confidentiality of Alcohol and Drug Abuse Patient Records regulations: The Federal rules restrict any use of the information to criminally investigate or prosecute any alcohol or drug abuse patient.[facility] HospitalIn the event this information is protected by the Federal Confidentiality of Alcohol and Drug Abuse Patient Records regulations: The Federal rules restrict any use of the information to criminally investigate or prosecute any alcohol or drug abuse patient.[facility] HospitalIn the event this information is protected by the Federal Confidentiality of Alcohol and Drug Abuse Patient Records regulations: The Federal rules restrict any use of the information to criminally investigate or prosecute any alcohol or drug abuse patient.[facility] HospitalIn the event this information is protected by the Federal Confidentiality of Alcohol and Drug Abuse Patient Records regulations: The Federal rules restrict any use of the information to criminally investigate or prosecute any alcohol or drug abuse patient.[facility] HospitalIn the event this information is protected by the Federal Confidentiality of Alcohol and Drug Abuse Patient Records regulations: The Federal rules restrict any use of the information to criminally investigate or prosecute any alcohol or drug abuse patient.[facility] HospitalIn the event this information is protected by the Federal Confidentiality of Alcohol and Drug Abuse Patient Records regulations: The Federal rules restrict any use of the information to criminally investigate or prosecute any alcohol or drug abuse patient.[facility] HospitalIn the event this information is protected by the Federal Confidentiality of Alcohol and Drug Abuse Patient Records regulations: The Federal rules restrict any use of the information to criminally investigate or prosecute any alcohol or drug abuse patient.[facility] HospitalIn the event this information is protected by the Federal Confidentiality of Alcohol and Drug Abuse Patient Records regulations: The Federal rules restrict any use of the information to criminally investigate or prosecute any alcohol or drug abuse patient.[facility] HospitalIn the event this information is protected by the Federal Confidentiality of Alcohol and Drug Abuse Patient Records regulations: The Federal rules restrict any use of the information to criminally investigate or prosecute any alcohol or drug abuse patient.[facility] HospitalIn the event this information is protected by the Federal Confidentiality of Alcohol and Drug Abuse Patient Records regulations: The Federal rules restrict any use of the information to criminally investigate or prosecute any alcohol or drug abuse patient.[facility] HospitalIn the event this information is protected by the Federal Confidentiality of Alcohol and Drug Abuse Patient Records regulations: The Federal rules restrict any use of the information to criminally investigate or prosecute any alcohol or drug abuse patient.[facility] HospitalIn the event this information is protected by the Federal Confidentiality of Alcohol and Drug Abuse Patient Records regulations: The Federal rules restrict any use of the information to criminally investigate or prosecute any alcohol or drug abuse patient.[facility] HospitalIn the event this information is protected by the Federal Confidentiality of Alcohol and Drug Abuse Patient Records regulations: The Federal rules restrict any use of the information to criminally investigate or prosecute any alcohol or drug abuse patient.[facility] HospitalIn the event this information is protected by the Federal Confidentiality of Alcohol and Drug Abuse Patient Records regulations: The Federal rules restrict any use of the information to criminally investigate or prosecute any alcohol or drug abuse patient.[facility] HospitalIn the event this information is protected by the Federal Confidentiality of Alcohol and Drug Abuse Patient Records regulations: The Federal rules restrict any use of the information to criminally investigate or prosecute any alcohol or drug abuse patient.[facility] HospitalIn the event this information is protected by the Federal Confidentiality of Alcohol and Drug Abuse Patient Records regulations: The Federal rules restrict any use of the information to criminally investigate or prosecute any alcohol or drug abuse patient.[facility] HospitalIn the event this information is protected by the Federal Confidentiality of Alcohol and Drug Abuse Patient Records regulations: The Federal rules restrict any use of the information to criminally investigate or prosecute any alcohol or drug abuse patient.[facility] HospitalIn the event this information is protected by the Federal Confidentiality of Alcohol and Drug Abuse Patient Records regulations: The Federal rules restrict any use of the information to criminally investigate or prosecute any alcohol or drug abuse patient.[facility] HospitalIn the event this information is protected by the Federal Confidentiality of Alcohol and Drug Abuse Patient Records regulations: The Federal rules restrict any use of the information to criminally investigate or prosecute any alcohol or drug abuse patient.[facility] HospitalIn the event this information is protected by the Federal Confidentiality of Alcohol and Drug Abuse Patient Records regulations: The Federal rules restrict any use of the information to criminally investigate or prosecute any alcohol or drug abuse patient.[facility] HospitalIn the event this information is protected by the Federal Confidentiality of Alcohol and Drug Abuse Patient Records regulations: The Federal rules restrict any use of the information to criminally investigate or prosecute any alcohol or drug abuse patient.[facility] HospitalIn the event this information is protected by the Federal Confidentiality of Alcohol and Drug Abuse Patient Records regulations: The Federal rules restrict any use of the information to criminally investigate or prosecute any alcohol or drug abuse patient.[facility] HospitalIn the event this information is protected by the Federal Confidentiality of Alcohol and Drug Abuse Patient Records regulations: The Federal rules restrict any use of the information to criminally investigate or prosecute any alcohol or drug abuse patient.[facility] HospitalIn the event this information is protected by the Federal Confidentiality of Alcohol and Drug Abuse Patient Records regulations: The Federal rules restrict any use of the information to criminally investigate or prosecute any alcohol or drug abuse patient.[facility] HospitalIn the event this information is protected by the Federal Confidentiality of Alcohol and Drug Abuse Patient Records regulations: The Federal rules restrict any use of the information to criminally investigate or prosecute any alcohol or drug abuse patient.[facility] HospitalIn the event this information is protected by the Federal Confidentiality of Alcohol and Drug Abuse Patient Records regulations: The Federal rules restrict any use of the information to criminally investigate or prosecute any alcohol or drug abuse patient.[facility] HospitalIn the event this information is protected by the Federal Confidentiality of Alcohol and Drug Abuse Patient Records regulations: The Federal rules restrict any use of the information to criminally investigate or prosecute any alcohol or drug abuse patient.[facility] HospitalIn the event this information is protected by the Federal Confidentiality of Alcohol and Drug Abuse Patient Records regulations: The Federal rules restrict any use of the information to criminally investigate or prosecute any alcohol or drug abuse patient.[facility] HospitalIn the event this information is protected by the Federal Confidentiality of Alcohol and Drug Abuse Patient Records regulations: The Federal rules restrict any use of the information to criminally investigate or prosecute any alcohol or drug abuse patient.[facility] HospitalIn the event this information is protected by the Federal Confidentiality of Alcohol and Drug Abuse Patient Records regulations: The Federal rules restrict any use of the information to criminally investigate or prosecute any alcohol or drug abuse patient.[facility] HospitalIn the event this information is protected by the Federal Confidentiality of Alcohol and Drug Abuse Patient Records regulations: The Federal rules restrict any use of the information to criminally investigate or prosecute any alcohol or drug abuse patient.[facility] HospitalIn the event this information is protected by the Federal Confidentiality of Alcohol and Drug Abuse Patient Records regulations: The Federal rules restrict any use of the information to criminally investigate or prosecute any alcohol or drug abuse patient.[facility] HospitalIn the event this information is protected by the Federal Confidentiality of Alcohol and Drug Abuse Patient Records regulations: The Federal rules restrict any use of the information to criminally investigate or prosecute any alcohol or drug abuse patient.[facility] HospitalIn the event this information is protected by the Federal Confidentiality of Alcohol and Drug Abuse Patient Records regulations: The Federal rules restrict any use of the information to criminally investigate or prosecute any alcohol or drug abuse patient.[facility] HospitalIn the event this information is protected by the Federal Confidentiality of Alcohol and Drug Abuse Patient Records regulations: The Federal rules restrict any use of the information to criminally investigate or prosecute any alcohol or drug abuse patient.[facility] HospitalIn the event this information is protected by the Federal Confidentiality of Alcohol and Drug Abuse Patient Records regulations: The Federal rules restrict any use of the information to criminally investigate or prosecute any alcohol or drug abuse patient.[facility] HospitalIn the event this information is protected by the Federal Confidentiality of Alcohol and Drug Abuse Patient Records regulations: The Federal rules restrict any use of the information to criminally investigate or prosecute any alcohol or drug abuse patient.[facility] HospitalIn the event this information is protected by the Federal Confidentiality of Alcohol and Drug Abuse Patient Records regulations: The Federal rules restrict any use of the information to criminally investigate or prosecute any alcohol or drug abuse patient.[facility] HospitalIn the event this information is protected by the Federal Confidentiality of Alcohol and Drug Abuse Patient Records regulations: The Federal rules restrict any use of the information to criminally investigate or prosecute any alcohol or drug abuse patient.[facility] HospitalIn the event this information is protected by the Federal Confidentiality of Alcohol and Drug Abuse Patient Records regulations: The Federal rules restrict any use of the information to criminally investigate or prosecute any alcohol or drug abuse patient.[facility] HospitalIn the event this information is protected by the Federal Confidentiality of Alcohol and Drug Abuse Patient Records regulations: The Federal rules restrict any use of the information to criminally investigate or prosecute any alcohol or drug abuse patient.[facility] HospitalIn the event this information is protected by the Federal Confidentiality of Alcohol and Drug Abuse Patient Records regulations: The Federal rules restrict any use of the information to criminally investigate or prosecute any alcohol or drug abuse patient.[facility] HospitalIn the event this information is protected by the Federal Confidentiality of Alcohol and Drug Abuse Patient Records regulations: The Federal rules restrict any use of the information to criminally investigate or prosecute any alcohol or drug abuse patient.[facility] HospitalIn the event this information is protected by the Federal Confidentiality of Alcohol and Drug Abuse Patient Records regulations: The Federal rules restrict any use of the information to criminally investigate or prosecute any alcohol or drug abuse patient.[facility] HospitalIn the event this information is protected by the Federal Confidentiality of Alcohol and Drug Abuse Patient Records regulations: The Federal rules restrict any use of the information to criminally investigate or prosecute any alcohol or drug abuse patient.[facility] HospitalIn the event this information is protected by the Federal Confidentiality of Alcohol and Drug Abuse Patient Records regulations: The Federal rules restrict any use of the information to criminally investigate or prosecute any alcohol or drug abuse patient.[facility] HospitalIn the event this information is protected by the Federal Confidentiality of Alcohol and Drug Abuse Patient Records regulations: The Federal rules restrict any use of the information to criminally investigate or prosecute any alcohol or drug abuse patient.[facility] HospitalIn the event this information is protected by the Federal Confidentiality of Alcohol and Drug Abuse Patient Records regulations: The Federal rules restrict any use of the information to criminally investigate or prosecute any alcohol or drug abuse patient.[facility] HospitalIn the event this information is protected by the Federal Confidentiality of Alcohol and Drug Abuse Patient Records regulations: The Federal rules restrict any use of the information to criminally investigate or prosecute any alcohol or drug abuse patient.[facility] HospitalIn the event this information is protected by the Federal Confidentiality of Alcohol and Drug Abuse Patient Records regulations: The Federal rules restrict any use of the information to criminally investigate or prosecute any alcohol or drug abuse patient.[facility] HospitalIn the event this information is protected by the Federal Confidentiality of Alcohol and Drug Abuse Patient Records regulations: The Federal rules restrict any use of the information to criminally investigate or prosecute any alcohol or drug abuse patient.[facility] HospitalIn the event this information is protected by the Federal Confidentiality of Alcohol and Drug Abuse Patient Records regulations: The Federal rules restrict any use of the information to criminally investigate or prosecute any alcohol or drug abuse patient.[facility] HospitalIn the event this information is protected by the Federal Confidentiality of Alcohol and Drug Abuse Patient Records regulations: The Federal rules restrict any use of the information to criminally investigate or prosecute any alcohol or drug abuse patient.[facility] HospitalIn the event this information is protected by the Federal Confidentiality of Alcohol and Drug Abuse Patient Records regulations: The Federal rules restrict any use of the information to criminally investigate or prosecute any alcohol or drug abuse patient.[facility] HospitalIn the event this information is protected by the Federal Confidentiality of Alcohol and Drug Abuse Patient Records regulations: The Federal rules restrict any use of the information to criminally investigate or prosecute any alcohol or drug abuse patient.[facility] HospitalIn the event this information is protected by the Federal Confidentiality of Alcohol and Drug Abuse Patient Records regulations: The Federal rules restrict any use of the information to criminally investigate or prosecute any alcohol or drug abuse patient.[facility] HospitalIn the event this information is protected by the Federal Confidentiality of Alcohol and Drug Abuse Patient Records regulations: The Federal rules restrict any use of the information to criminally investigate or prosecute any alcohol or drug abuse patient.[facility] HospitalIn the event this information is protected by the Federal Confidentiality of Alcohol and Drug Abuse Patient Records regulations: The Federal rules restrict any use of the information to criminally investigate or prosecute any alcohol or drug abuse patient.[facility] HospitalIn the event this information is protected by the Federal Confidentiality of Alcohol and Drug Abuse Patient Records regulations: The Federal rules restrict any use of the information to criminally investigate or prosecute any alcohol or drug abuse patient.[facility] HospitalIn the event this information is protected by the Federal Confidentiality of Alcohol and Drug Abuse Patient Records regulations: The Federal rules restrict any use of the information to criminally investigate or prosecute any alcohol or drug abuse patient.[facility] HospitalIn the event this information is protected by the Federal Confidentiality of Alcohol and Drug Abuse Patient Records regulations: The Federal rules restrict any use of the information to criminally investigate or prosecute any alcohol or drug abuse patient.[facility] HospitalIn the event this information is protected by the Federal Confidentiality of Alcohol and Drug Abuse Patient Records regulations: The Federal rules restrict any use of the information to criminally investigate or prosecute any alcohol or drug abuse patient.[facility] HospitalIn the event this information is protected by the Federal Confidentiality of Alcohol and Drug Abuse Patient Records regulations: The Federal rules restrict any use of the information to criminally investigate or prosecute any alcohol or drug abuse patient.[facility] HospitalIn the event this information is protected by the Federal Confidentiality of Alcohol and Drug Abuse Patient Records regulations: The Federal rules restrict any use of the information to criminally investigate or prosecute any alcohol or drug abuse patient.[facility] HospitalIn the event this information is protected by the Federal Confidentiality of Alcohol and Drug Abuse Patient Records regulations: The Federal rules restrict any use of the information to criminally investigate or prosecute any alcohol or drug abuse patient.[facility] HospitalIn the event this information is protected by the Federal Confidentiality of Alcohol and Drug Abuse Patient Records regulations: The Federal rules restrict any use of the information to criminally investigate or prosecute any alcohol or drug abuse patient.[facility] HospitalIn the event this information is protected by the Federal Confidentiality of Alcohol and Drug Abuse Patient Records regulations: The Federal rules restrict any use of the information to criminally investigate or prosecute any alcohol or drug abuse patient.[facility] HospitalIn the event this information is protected by the Federal Confidentiality of Alcohol and Drug Abuse Patient Records regulations: The Federal rules restrict any use of the information to criminally investigate or prosecute any alcohol or drug abuse patient.[facility] HospitalIn the event this information is protected by the Federal Confidentiality of Alcohol and Drug Abuse Patient Records regulations: The Federal rules restrict any use of the information to criminally investigate or prosecute any alcohol or drug abuse patient.[facility] HospitalIn the event this information is protected by the Federal Confidentiality of Alcohol and Drug Abuse Patient Records regulations: The Federal rules restrict any use of the information to criminally investigate or prosecute any alcohol or drug abuse patient.[facility] HospitalIn the event this information is protected by the Federal Confidentiality of Alcohol and Drug Abuse Patient Records regulations: The Federal rules restrict any use of the information to criminally investigate or prosecute any alcohol or drug abuse patient.[facility] HospitalIn the event this information is protected by the Federal Confidentiality of Alcohol and Drug Abuse Patient Records regulations: The Federal rules restrict any use of the information to criminally investigate or prosecute any alcohol or drug abuse patient.[facility] HospitalIn the event this information is protected by the Federal Confidentiality of Alcohol and Drug Abuse Patient Records regulations: The Federal rules restrict any use of the information to criminally investigate or prosecute any alcohol or drug abuse patient.[facility] HospitalIn the event this information is protected by the Federal Confidentiality of Alcohol and Drug Abuse Patient Records regulations: The Federal rules restrict any use of the information to criminally investigate or prosecute any alcohol or drug abuse patient.[facility] HospitalIn the event this information is protected by the Federal Confidentiality of Alcohol and Drug Abuse Patient Records regulations: The Federal rules restrict any use of the information to criminally investigate or prosecute any alcohol or drug abuse patient.[facility] HospitalIn the event this information is protected by the Federal Confidentiality of Alcohol and Drug Abuse Patient Records regulations: The Federal rules restrict any use of the information to criminally investigate or prosecute any alcohol or drug abuse patient.[facility] HospitalIn the event this information is protected by the Federal Confidentiality of Alcohol and Drug Abuse Patient Records regulations: The Federal rules restrict any use of the information to criminally investigate or prosecute any alcohol or drug abuse patient.[facility] HospitalIn the event this information is protected by the Federal Confidentiality of Alcohol and Drug Abuse Patient Records regulations: The Federal rules restrict any use of the information to criminally investigate or prosecute any alcohol or drug abuse patient.[facility] HospitalIn the event this information is protected by the Federal Confidentiality of Alcohol and Drug Abuse Patient Records regulations: The Federal rules restrict any use of the information to criminally investigate or prosecute any alcohol or drug abuse patient.[facility] HospitalIn the event this information is protected by the Federal Confidentiality of Alcohol and Drug Abuse Patient Records regulations: The Federal rules restrict any use of the information to criminally investigate or prosecute any alcohol or drug abuse patient.[facility] HospitalIn the event this information is protected by the Federal Confidentiality of Alcohol and Drug Abuse Patient Records regulations: The Federal rules restrict any use of the information to criminally investigate or prosecute any alcohol or drug abuse patient.[facility] HospitalIn the event this information is protected by the Federal Confidentiality of Alcohol and Drug Abuse Patient Records regulations: The Federal rules restrict any use of the information to criminally investigate or prosecute any alcohol or drug abuse patient.[facility] HospitalIn the event this information is protected by the Federal Confidentiality of Alcohol and Drug Abuse Patient Records regulations: The Federal rules restrict any use of the information to criminally investigate or prosecute any alcohol or drug abuse patient.[facility] HospitalIn the event this information is protected by the Federal Confidentiality of Alcohol and Drug Abuse Patient Records regulations: The Federal rules restrict any use of the information to criminally investigate or prosecute any alcohol or drug abuse patient.[facility] HospitalIn the event this information is protected by the Federal Confidentiality of Alcohol and Drug Abuse Patient Records regulations: The Federal rules restrict any use of the information to criminally investigate or prosecute any alcohol or drug abuse patient.[facility] HospitalIn the event this information is protected by the Federal Confidentiality of Alcohol and Drug Abuse Patient Records regulations: The Federal rules restrict any use of the information to criminally investigate or prosecute any alcohol or drug abuse patient.[facility] HospitalIn the event this information is protected by the Federal Confidentiality of Alcohol and Drug Abuse Patient Records regulations: The Federal rules restrict any use of the information to criminally investigate or prosecute any alcohol or drug abuse patient.[facility] HospitalIn the event this information is protected by the Federal Confidentiality of Alcohol and Drug Abuse Patient Records regulations: The Federal rules restrict any use of the information to criminally investigate or prosecute any alcohol or drug abuse patient.[facility] HospitalIn the event this information is protected by the Federal Confidentiality of Alcohol and Drug Abuse Patient Records regulations: The Federal rules restrict any use of the information to criminally investigate or prosecute any alcohol or drug abuse patient.[facility] HospitalIn the event this information is protected by the Federal Confidentiality of Alcohol and Drug Abuse Patient Records regulations: The Federal rules restrict any use of the information to criminally investigate or prosecute any alcohol or drug abuse patient.[facility] HospitalIn the event this information is protected by the Federal Confidentiality of Alcohol and Drug Abuse Patient Records regulations: The Federal rules restrict any use of the information to criminally investigate or prosecute any alcohol or drug abuse patient.[facility] HospitalIn the event this information is protected by the Federal Confidentiality of Alcohol and Drug Abuse Patient Records regulations: The Federal rules restrict any use of the information to criminally investigate or prosecute any alcohol or drug abuse patient.[facility] HospitalIn the event this information is protected by the Federal Confidentiality of Alcohol and Drug Abuse Patient Records regulations: The Federal rules restrict any use of the information to criminally investigate or prosecute any alcohol or drug abuse patient.[facility] HospitalIn the event this information is protected by the Federal Confidentiality of Alcohol and Drug Abuse Patient Records regulations: The Federal rules restrict any use of the information to criminally investigate or prosecute any alcohol or drug abuse patient.[facility] HospitalIn the event this information is protected by the Federal Confidentiality of Alcohol and Drug Abuse Patient Records regulations: The Federal rules restrict any use of the information to criminally investigate or prosecute any alcohol or drug abuse patient.[facility] HospitalIn the event this information is protected by the Federal Confidentiality of Alcohol and Drug Abuse Patient Records regulations: The Federal rules restrict any use of the information to criminally investigate or prosecute any alcohol or drug abuse patient.[facility] HospitalIn the event this information is protected by the Federal Confidentiality of Alcohol and Drug Abuse Patient Records regulations: The Federal rules restrict any use of the information to criminally investigate or prosecute any alcohol or drug abuse patient.[facility] HospitalIn the event this information is protected by the Federal Confidentiality of Alcohol and Drug Abuse Patient Records regulations: The Federal rules restrict any use of the information to criminally investigate or prosecute any alcohol or drug abuse patient.[facility] HospitalIn the event this information is protected by the Federal Confidentiality of Alcohol and Drug Abuse Patient Records regulations: The Federal rules restrict any use of the information to criminally investigate or prosecute any alcohol or drug abuse patient.[facility] HospitalIn the event this information is protected by the Federal Confidentiality of Alcohol and Drug Abuse Patient Records regulations: The Federal rules restrict any use of the information to criminally investigate or prosecute any alcohol or drug abuse patient.[facility] HospitalIn the event this information is protected by the Federal Confidentiality of Alcohol and Drug Abuse Patient Records regulations: The Federal rules restrict any use of the information to criminally investigate or prosecute any alcohol or drug abuse patient.[facility] HospitalIn the event this information is protected by the Federal Confidentiality of Alcohol and Drug Abuse Patient Records regulations: The Federal rules restrict any use of the information to criminally investigate or prosecute any alcohol or drug abuse patient.[facility] HospitalIn the event this information is protected by the Federal Confidentiality of Alcohol and Drug Abuse Patient Records regulations: The Federal rules restrict any use of the information to criminally investigate or prosecute any alcohol or drug abuse patient.[facility] HospitalIn the event this information is protected by the Federal Confidentiality of Alcohol and Drug Abuse Patient Records regulations: The Federal rules restrict any use of the information to criminally investigate or prosecute any alcohol or drug abuse patient.[facility] HospitalIn the event this information is protected by the Federal Confidentiality of Alcohol and Drug Abuse Patient Records regulations: The Federal rules restrict any use of the information to criminally investigate or prosecute any alcohol or drug abuse patient.[facility] HospitalIn the event this information is protected by the Federal Confidentiality of Alcohol and Drug Abuse Patient Records regulations: The Federal rules restrict any use of the information to criminally investigate or prosecute any alcohol or drug abuse patient.[facility] HospitalIn the event this information is protected by the Federal Confidentiality of Alcohol and Drug Abuse Patient Records regulations: The Federal rules restrict any use of the information to criminally investigate or prosecute any alcohol or drug abuse patient.[facility] HospitalIn the event this information is protected by the Federal Confidentiality of Alcohol and Drug Abuse Patient Records regulations: The Federal rules restrict any use of the information to criminally investigate or prosecute any alcohol or drug abuse patient.[facility] HospitalIn the event this information is protected by the Federal Confidentiality of Alcohol and Drug Abuse Patient Records regulations: The Federal rules restrict any use of the information to criminally investigate or prosecute any alcohol or drug abuse patient.[facility] HospitalIn the event this information is protected by the Federal Confidentiality of Alcohol and Drug Abuse Patient Records regulations: The Federal rules restrict any use of the information to criminally investigate or prosecute any alcohol or drug abuse patient.[facility] HospitalIn the event this information is protected by the Federal Confidentiality of Alcohol and Drug Abuse Patient Records regulations: The Federal rules restrict any use of the information to criminally investigate or prosecute any alcohol or drug abuse patient.[facility] HospitalIn the event this information is protected by the Federal Confidentiality of Alcohol and Drug Abuse Patient Records regulations: The Federal rules restrict any use of the information to criminally investigate or prosecute any alcohol or drug abuse patient.[facility] HospitalIn the event this information is protected by the Federal Confidentiality of Alcohol and Drug Abuse Patient Records regulations: The Federal rules restrict any use of the information to criminally investigate or prosecute any alcohol or drug abuse patient.[facility] HospitalIn the event this information is protected by the Federal Confidentiality of Alcohol and Drug Abuse Patient Records regulations: The Federal rules restrict any use of the information to criminally investigate or prosecute any alcohol or drug abuse patient.[facility] HospitalIn the event this information is protected by the Federal Confidentiality of Alcohol and Drug Abuse Patient Records regulations: The Federal rules restrict any use of the information to criminally investigate or prosecute any alcohol or drug abuse patient.[facility] HospitalIn the event this information is protected by the Federal Confidentiality of Alcohol and Drug Abuse Patient Records regulations: The Federal rules restrict any use of the information to criminally investigate or prosecute any alcohol or drug abuse patient.[facility] HospitalIn the event this information is protected by the Federal Confidentiality of Alcohol and Drug Abuse Patient Records regulations: The Federal rules restrict any use of the information to criminally investigate or prosecute any alcohol or drug abuse patient.[facility] HospitalIn the event this information is protected by the Federal Confidentiality of Alcohol and Drug Abuse Patient Records regulations: The Federal rules restrict any use of the information to criminally investigate or prosecute any alcohol or drug abuse patient.[facility] HospitalIn the event this information is protected by the Federal Confidentiality of Alcohol and Drug Abuse Patient Records regulations: The Federal rules restrict any use of the information to criminally investigate or prosecute any alcohol or drug abuse patient.[facility] HospitalIn the event this information is protected by the Federal Confidentiality of Alcohol and Drug Abuse Patient Records regulations: The Federal rules restrict any use of the information to criminally investigate or prosecute any alcohol or drug abuse patient.[facility] HospitalIn the event this information is protected by the Federal Confidentiality of Alcohol and Drug Abuse Patient Records regulations: The Federal rules restrict any use of the information to criminally investigate or prosecute any alcohol or drug abuse patient.[facility] HospitalIn the event this information is protected by the Federal Confidentiality of Alcohol and Drug Abuse Patient Records regulations: The Federal rules restrict any use of the information to criminally investigate or prosecute any alcohol or drug abuse patient.[facility] HospitalIn the event this information is protected by the Federal Confidentiality of Alcohol and Drug Abuse Patient Records regulations: The Federal rules restrict any use of the information to criminally investigate or prosecute any alcohol or drug abuse patient.[facility] HospitalIn the event this information is protected by the Federal Confidentiality of Alcohol and Drug Abuse Patient Records regulations: The Federal rules restrict any use of the information to criminally investigate or prosecute any alcohol or drug abuse patient.[facility] HospitalIn the event this information is protected by the Federal Confidentiality of Alcohol and Drug Abuse Patient Records regulations: The Federal rules restrict any use of the information to criminally investigate or prosecute any alcohol or drug abuse patient.[facility] HospitalIn the event this information is protected by the Federal Confidentiality of Alcohol and Drug Abuse Patient Records regulations: The Federal rules restrict any use of the information to criminally investigate or prosecute any alcohol or drug abuse patient.[facility] HospitalIn the event this information is protected by the Federal Confidentiality of Alcohol and Drug Abuse Patient Records regulations: The Federal rules restrict any use of the information to criminally investigate or prosecute any alcohol or drug abuse patient.[facility] HospitalIn the event this information is protected by the Federal Confidentiality of Alcohol and Drug Abuse Patient Records regulations: The Federal rules restrict any use of the information to criminally investigate or prosecute any alcohol or drug abuse patient.[facility] HospitalIn the event this information is protected by the Federal Confidentiality of Alcohol and Drug Abuse Patient Records regulations: The Federal rules restrict any use of the information to criminally investigate or prosecute any alcohol or drug abuse patient.[facility] HospitalIn the event this information is protected by the Federal Confidentiality of Alcohol and Drug Abuse Patient Records regulations: The Federal rules restrict any use of the information to criminally investigate or prosecute any alcohol or drug abuse patient.[facility] HospitalIn the event this information is protected by the Federal Confidentiality of Alcohol and Drug Abuse Patient Records regulations: The Federal rules restrict any use of the information to criminally investigate or prosecute any alcohol or drug abuse patient.[facility] HospitalIn the event this information is protected by the Federal Confidentiality of Alcohol and Drug Abuse Patient Records regulations: The Federal rules restrict any use of the information to criminally investigate or prosecute any alcohol or drug abuse patient.[facility] HospitalIn the event this information is protected by the Federal Confidentiality of Alcohol and Drug Abuse Patient Records regulations: The Federal rules restrict any use of the information to criminally investigate or prosecute any alcohol or drug abuse patient.[facility] HospitalIn the event this information is protected by the Federal Confidentiality of Alcohol and Drug Abuse Patient Records regulations: The Federal rules restrict any use of the information to criminally investigate or prosecute any alcohol or drug abuse patient.[facility] HospitalIn the event this information is protected by the Federal Confidentiality of Alcohol and Drug Abuse Patient Records regulations: The Federal rules restrict any use of the information to criminally investigate or prosecute any alcohol or drug abuse patient.[facility] HospitalIn the event this information is protected by the Federal Confidentiality of Alcohol and Drug Abuse Patient Records regulations: The Federal rules restrict any use of the information to criminally investigate or prosecute any alcohol or drug abuse patient.[facility] HospitalIn the event this information is protected by the Federal Confidentiality of Alcohol and Drug Abuse Patient Records regulations: The Federal rules restrict any use of the information to criminally investigate or prosecute any alcohol or drug abuse patient.[facility] HospitalIn the event this information is protected by the Federal Confidentiality of Alcohol and Drug Abuse Patient Records regulations: The Federal rules restrict any use of the information to criminally investigate or prosecute any alcohol or drug abuse patient.[facility] HospitalIn the event this information is protected by the Federal Confidentiality of Alcohol and Drug Abuse Patient Records regulations: The Federal rules restrict any use of the information to criminally investigate or prosecute any alcohol or drug abuse patient.[facility] HospitalIn the event this information is protected by the Federal Confidentiality of Alcohol and Drug Abuse Patient Records regulations: The Federal rules restrict any use of the information to criminally investigate or prosecute any alcohol or drug abuse patient.[facility] HospitalIn the event this information is protected by the Federal Confidentiality of Alcohol and Drug Abuse Patient Records regulations: The Federal rules restrict any use of the information to criminally investigate or prosecute any alcohol or drug abuse patient.[facility] HospitalIn the event this information is protected by the Federal Confidentiality of Alcohol and Drug Abuse Patient Records regulations: The Federal rules restrict any use of the information to criminally investigate or prosecute any alcohol or drug abuse patient.[facility] HospitalIn the event this information is protected by the Federal Confidentiality of Alcohol and Drug Abuse Patient Records regulations: The Federal rules restrict any use of the information to criminally investigate or prosecute any alcohol or drug abuse patient.[facility] HospitalIn the event this information is protected by the Federal Confidentiality of Alcohol and Drug Abuse Patient Records regulations: The Federal rules restrict any use of the information to criminally investigate or prosecute any alcohol or drug abuse patient.[facility] HospitalIn the event this information is protected by the Federal Confidentiality of Alcohol and Drug Abuse Patient Records regulations: The Federal rules restrict any use of the information to criminally investigate or prosecute any alcohol or drug abuse patient.[facility] HospitalIn the event this information is protected by the Federal Confidentiality of Alcohol and Drug Abuse Patient Records regulations: The Federal rules restrict any use of the information to criminally investigate or prosecute any alcohol or drug abuse patient.[facility] HospitalIn the event this information is protected by the Federal Confidentiality of Alcohol and Drug Abuse Patient Records regulations: The Federal rules restrict any use of the information to criminally investigate or prosecute any alcohol or drug abuse patient.[facility] HospitalIn the event this information is protected by the Federal Confidentiality of Alcohol and Drug Abuse Patient Records regulations: The Federal rules restrict any use of the information to criminally investigate or prosecute any alcohol or drug abuse patient.[facility] HospitalIn the event this information is protected by the Federal Confidentiality of Alcohol and Drug Abuse Patient Records regulations: The Federal rules restrict any use of the information to criminally investigate or prosecute any alcohol or drug abuse patient.[facility] HospitalIn the event this information is protected by the Federal Confidentiality of Alcohol and Drug Abuse Patient Records regulations: The Federal rules restrict any use of the information to criminally investigate or prosecute any alcohol or drug abuse patient.[facility] HospitalIn the event this information is protected by the Federal Confidentiality of Alcohol and Drug Abuse Patient Records regulations: The Federal rules restrict any use of the information to criminally investigate or prosecute any alcohol or drug abuse patient.[facility] HospitalIn the event this information is protected by the Federal Confidentiality of Alcohol and Drug Abuse Patient Records regulations: The Federal rules restrict any use of the information to criminally investigate or prosecute any alcohol or drug abuse patient.[facility] HospitalIn the event this information is protected by the Federal Confidentiality of Alcohol and Drug Abuse Patient Records regulations: The Federal rules restrict any use of the information to criminally investigate or prosecute any alcohol or drug abuse patient.[facility] HospitalIn the event this information is protected by the Federal Confidentiality of Alcohol and Drug Abuse Patient Records regulations: The Federal rules restrict any use of the information to criminally investigate or prosecute any alcohol or drug abuse patient.[facility] HospitalIn the event this information is protected by the Federal Confidentiality of Alcohol and Drug Abuse Patient Records regulations: The Federal rules restrict any use of the information to criminally investigate or prosecute any alcohol or drug abuse patient.[facility] HospitalIn the event this information is protected by the Federal Confidentiality of Alcohol and Drug Abuse Patient Records regulations: The Federal rules restrict any use of the information to criminally investigate or prosecute any alcohol or drug abuse patient.[facility] HospitalIn the event this information is protected by the Federal Confidentiality of Alcohol and Drug Abuse Patient Records regulations: The Federal rules restrict any use of the information to criminally investigate or prosecute any alcohol or drug abuse patient.[facility] HospitalIn the event this information is protected by the Federal Confidentiality of Alcohol and Drug Abuse Patient Records regulations: The Federal rules restrict any use of the information to criminally investigate or prosecute any alcohol or drug abuse patient.[facility] HospitalIn the event this information is protected by the Federal Confidentiality of Alcohol and Drug Abuse Patient Records regulations: The Federal rules restrict any use of the information to criminally investigate or prosecute any alcohol or drug abuse patient.[facility] HospitalIn the event this information is protected by the Federal Confidentiality of Alcohol and Drug Abuse Patient Records regulations: The Federal rules restrict any use of the information to criminally investigate or prosecute any alcohol or drug abuse patient.[facility] HospitalIn the event this information is protected by the Federal Confidentiality of Alcohol and Drug Abuse Patient Records regulations: The Federal rules restrict any use of the information to criminally investigate or prosecute any alcohol or drug abuse patient.[facility] HospitalIn the event this information is protected by the Federal Confidentiality of Alcohol and Drug Abuse Patient Records regulations: The Federal rules restrict any use of the information to criminally investigate or prosecute any alcohol or drug abuse patient.[facility] HospitalIn the event this information is protected by the Federal Confidentiality of Alcohol and Drug Abuse Patient Records regulations: The Federal rules restrict any use of the information to criminally investigate or prosecute any alcohol or drug abuse patient.[facility] HospitalIn the event this information is protected by the Federal Confidentiality of Alcohol and Drug Abuse Patient Records regulations: The Federal rules restrict any use of the information to criminally investigate or prosecute any alcohol or drug abuse patient.[facility] HospitalIn the event this information is protected by the Federal Confidentiality of Alcohol and Drug Abuse Patient Records regulations: The Federal rules restrict any use of the information to criminally investigate or prosecute any alcohol or drug abuse patient.[facility] HospitalIn the event this information is protected by the Federal Confidentiality of Alcohol and Drug Abuse Patient Records regulations: The Federal rules restrict any use of the information to criminally investigate or prosecute any alcohol or drug abuse patient.[facility] [facility] HospitalIn the event this information is protected by the Federal Confidentiality of Alcohol and Drug Abuse Patient Records regulations: The Federal rules restrict any use of the information to criminally investigate or prosecute any alcohol or drug abuse patient.[facility] HospitalIn the event this information is protected by the Federal Confidentiality of Alcohol and Drug Abuse Patient Records regulations: The Federal rules restrict any use of the information to criminally investigate or prosecute any alcohol or drug abuse patient.[facility] HospitalIn the event this information is protected by the Federal Confidentiality of Alcohol and Drug Abuse Patient Records regulations: The Federal rules restrict any use of the information to criminally investigate or prosecute any alcohol or drug abuse patient.[facility] HospitalIn the event this information is protected by the Federal Confidentiality of Alcohol and Drug Abuse Patient Records regulations: The Federal rules restrict any use of the information to criminally investigate or prosecute any alcohol or drug abuse patient.[facility] HospitalIn the event this information is protected by the Federal Confidentiality of Alcohol and Drug Abuse Patient Records regulations: The Federal rules restrict any use of the information to criminally investigate or prosecute any alcohol or drug abuse patient.[facility] HospitalIn the event this information is protected by the Federal Confidentiality of Alcohol and Drug Abuse Patient Records regulations: The Federal rules restrict any use of the information to criminally investigate or prosecute any alcohol or drug abuse patient.[facility] HospitalIn the event this information is protected by the Federal Confidentiality of Alcohol and Drug Abuse Patient Records regulations: The Federal rules restrict any use of the information to criminally investigate or prosecute any alcohol or drug abuse patient.[facility] HospitalIn the event this information is protected by the Federal Confidentiality of Alcohol and Drug Abuse Patient Records regulations: The Federal rules restrict any use of the information to criminally investigate or prosecute any alcohol or drug abuse patient.[facility] HospitalIn the event this information is protected by the Federal Confidentiality of Alcohol and Drug Abuse Patient Records regulations: The Federal rules restrict any use of the information to criminally investigate or prosecute any alcohol or drug abuse patient.[facility] HospitalIn the event this information is protected by the Federal Confidentiality of Alcohol and Drug Abuse Patient Records regulations: The Federal rules restrict any use of the information to criminally investigate or prosecute any alcohol or drug abuse patient.[facility] HospitalIn the event this information is protected by the Federal Confidentiality of Alcohol and Drug Abuse Patient Records regulations: The Federal rules restrict any use of the information to criminally investigate or prosecute any alcohol or drug abuse patient.[facility] HospitalIn the event this information is protected by the Federal Confidentiality of Alcohol and Drug Abuse Patient Records regulations: The Federal rules restrict any use of the information to criminally investigate or prosecute any alcohol or drug abuse patient.[facility] HospitalIn the event this information is protected by the Federal Confidentiality of Alcohol and Drug Abuse Patient Records regulations: The Federal rules restrict any use of the information to criminally investigate or prosecute any alcohol or drug abuse patient.[facility] HospitalIn the event this information is protected by the Federal Confidentiality of Alcohol and Drug Abuse Patient Records regulations: The Federal rules restrict any use of the information to criminally investigate or prosecute any alcohol or drug abuse patient.[facility] HospitalIn the event this information is protected by the Federal Confidentiality of Alcohol and Drug Abuse Patient Records regulations: The Federal rules restrict any use of the information to criminally investigate or prosecute any alcohol or drug abuse patient.[facility] HospitalIn the event this information is protected by the Federal Confidentiality of Alcohol and Drug Abuse Patient Records regulations: The Federal rules restrict any use of the information to criminally investigate or prosecute any alcohol or drug abuse patient.[facility] HospitalIn the event this information is protected by the Federal Confidentiality of Alcohol and Drug Abuse Patient Records regulations: The Federal rules restrict any use of the information to criminally investigate or prosecute any alcohol or drug abuse patient.[facility] HospitalIn the event this information is protected by the Federal Confidentiality of Alcohol and Drug Abuse Patient Records regulations: The Federal rules restrict any use of the information to criminally investigate or prosecute any alcohol or drug abuse patient.[facility] HospitalIn the event this information is protected by the Federal Confidentiality of Alcohol and Drug Abuse Patient Records regulations: The Federal rules restrict any use of the information to criminally investigate or prosecute any alcohol or drug abuse patient.[facility] Reason for Visit (unrecogniz ed section and content) Reason Onset Date Comments SPP Oral Oncology/hematology - No-go 07/31/2021 Revlimid - no access Reason Onset Date Comments Refill Request 07/31/2021 Reason Comments Multiple Myeloma 2 week follow up Reason Onset Date Comments Refill Request 08/29/2021 Reason Comments Results Reason Comments Multiple Myeloma Reason Comments Refill Request Reason Comments Multiple Myeloma 4 week follow up Reason Comments Care Coordination Call Request Reason Comments Care Coordination ID question Reason Comments Medication Authorization Reason Comments Care Coordination Critical Results - G lucose Reason Comments Med Change Request Reason Comments Multiple Myeloma 1 month follow up Reason Onset Date Comments Refill Request 03/19/2022 Reason Comments Medication Update Reason Comments Critical Results Reason Comments Nutrition Telephone Reason Onset Date Comments Refill Request 06/22/2022 Reason Comments Future Appointment Reason Comments Nutrition Counseling Reason Comments Liver BX Reason Comments Entry Level Project Coordinator - Other Biopsy Reason Comments Radiology Pre Procedure Instructions Reason Comments Multiple Myeloma 4 week follow up Reason Comments New Patient Reason Onset Date Comments Research 10/07/2022 Reason Comments Drain Removal Reason Comments Hepatocellular carcinoma 2 week follow u p Reason Comments Post Op Reason Comments Multiple Myeloma Hepatocellular carcinoma Follow up Specialty Diagnoses / Procedures Referred By [facility] t Referred To Contact MR IMAGING Diagnoses Hepatocellular carcinoma (HCC) Procedures MRI LIVER WO/W IVCON MRI ABDOMEN W/O & [place] [address] [address] [place] [id number] Mr Imaging [place] [address] Referral ID Status Reason Start Date Expiration Date Visits Requested Visits Authorized [id number] Authorized Auto-Generat ed Referral 05/09/2022 05/08/2023 3 3 Reason Comments MRI Appointment Needs to rescheudle not enough sedation given Reason Comments Insurance Authorization Revlimid Reason Comments Schedule Surgery Results, Lab Reason Comments Post Op Follow Up Tests Results Reason Comments Lab Orders Reason Comments Medication Update BMS REMS survey numb er Reason Comments Pain Reason Onset Date Comments Refill Request 09/13/2023 Reason Comments MRI Pre meds Reason Comments Care Coordination MRI Results Reason Comments Medication Authorization [id number] Reason Comments Medication Authorization Venetoclax Appe al faxed Reason Comments Care Coordination Venclexta Start Date Reason Comments Oral Anti-cancer Agent Education Venclex ta Reason Comments Care Coordination Oral Anti-Cancer Age nt Follow Up Reason Comments Care Coordination IVF & Labs Reason Comments Established Patient Reason Comments Radiology MRI Reason Comments Radiology NM Specialty Diagnoses / Procedures Referred By [facility] Referred To Contact CT IMAGING Diagnoses Hepatocellular carcinoma (HCC) Procedures CT LIVER W IVCON CT ABDOMEN W/CONTRAST Alejandra Maddox, TUTU.HIM MANAGER [address] [place] [address] Ct Imaging [place] [address] Referral ID Status Reason Start Date Expiration Date V isits Requested Visits Authorized [id number] Closed Auto-Generate d Referral 01/19/2023 05/08/2023 1 1 Reason Comments Patient Question Reason Comments Care Coordination Surgical Clearance Reason Comments Post-op Reason Comments Multiple Myeloma Follow up Reason Comments Follow Up Specialty Diagnoses / Procedures Referred By [facility] Referred To Contact Diagnoses Neutropenia associated with infection (HCC) Multiple myeloma not having achieved remission (HCC) Vimal Crandall MD [address] [place] [address] [place] [address] [address] [place] [address] Referral ID Status Reason Start Date Expiration Date V isits Requested Visits Authorized [id number] New Request 03/12/2024 06/10/2024 1 1 Specialty Diagnoses / Procedures Referred By [facility] t Referred To Contact Diagnoses Neutropenia associated with infection (HCC) Multiple myeloma not having achieved remission (HCC) Procedures NIVESTYM Vimal Crandall MD [address] [place] [address] [place] [address] [address]dy Treat [address] [place] [address] Referral ID Status Reason Start Date Expiration Date V isits Requested Visits Authorized [id number] Waiting for Response 03/12/2024 06/10/2024 1 1 Reason Comments Follow-up Reason Comments Pain Reason Comments Med Refill Referral ID Status Reason Start Date Expiration Date V isits Requested Visits Authorized [id number] Authorized 03/12/2024 09/08/2024 99 99 Reason Comments Multiple Myeloma 1 week follow up Reason Comments Care Coordination ER Update Reason Comments Care Coordination Emergency Room Call Back Reason Comments Care Coordination Fever; Chills; ER Reason Comments Diabetes Reason Comments Care Coordination Discharge Follow Up Reason Comments Multiple Myeloma Hospital follow up Reason Comments Hospital Follow-up Reason Comments Care Coordination Injection Appointmen t Reason Comments Care Coordination Hem/Onc Referral Reason Onset Date Comments Refill Request 06/18/2024 Reason Comments Multiple Myeloma Followup Reason Comments Care Coordination Treatment Planning Reason Comments Consult Specialty Diagnoses / Procedures Referred By [facility] t Referred To Contact Diagnoses Multiple myeloma not having achieved remission (HCC) Procedures CONSULT TO HEMATOLOGY/ONCOLOGY OFFICE/OUTPATIENT NEW HIGH MDM 60 MINUTES Lorena Blackwell PA-C [address] [place] [address] [place] [address] Phone: tel: fax: Referral ID Status Reason Start Date Expiration Date V isits Requested Visits Authorized [id number] Closed PCP Requested Referral 06/06/2024 06/06/2025 1 1 Reason Comments Patient Update Reason Comments Benefits Investigation Good Day Minda Webb m your Financial Navigator, Audelia. I wanted to reach out and introduce myself. I welcome the opportunity to meet with you as I can answer questions related to your health plan and any expected out of pocket costs while you are in treatment.You will also find a survey attached to this message that can help me better serve your financial needs. You can complete this at your earliest convenience. Please feel free to stop in or call [phone] for any questions you may have. I Reason Comments Care Coordination Treatment Changes Reason Comments Oral Anti-cancer Agent Education Pomalid omide Non-Chemotherapy Treatment Daratumumab H yaluronidase Reason Comments Care Coordination Dexamethasone Reason Comments Care Coordination Pomalyst Update Reason Comments Medication Authorization Pomalyst Reason Comments Care Coordination Dental Question Reason Onset Date Comments Refill Request 06/28/2024 Allopurinol Reason Comments Care Coordination Fevers, Weakness, Di zziness Reason Comments Care Coordination Appointment Reason Comments Care Coordination Discharge Follow Up Reason Onset Date Comments Refill Request 07/17/2024 Reason Comments Multiple myeloma not having achieved rem ission Reason Comments Recheck Reason Comments Multiple Myeloma Treatment visit Care Teams (unrecognized sec tion and content) Magnetic Prospecting Operator Relationship Specialty Start Date End Date WalterSana cisneros ChristinaDO [address] [place] [address] PCP - General Family Practice 12/05/20 Vimal Crandall MD [address] [facility] [address] Physician Hematology/Oncology 02/06/20 Soha Nunn APRN.HIM MANAGER [address] [place] [address] Nurse Practitioner Hematology/Oncology 02/06/20 Arcelia Thomas, ALEX [address] [place] [address] Specialty Entry Level Project Coordinator Hematology/Oncology 02/06/20 Magnetic Prospecting Operator Relationship Specialty Start Date End Date Sana Key, DO [address] [place] [address] PCP - General Family Practice 12/05/20 Vimal Crandall MD [address] [facility] [place] [address] Physician Hematology/Oncology 02/06/20 Soha Nunn, INSURANCE SALESMAN.HIM MANAGER [address] [facility] [place] [address] Nurse Practitioner Hematology/Oncology 02/06/20 Arcelia Thomas, RN [address] [facility] [place] [address] Specialty Entry Level Project Coordinator Hematology/Oncology 02/06/20 Magnetic Prospecting Operator Relationship Specialty Start Date End Date Sana Key, DO [address] [place] [address] PCP - General Family Practice 12/05/20 Vimal Crandall MD [address] [facility] [place] [address] Physician Hematology/Oncology 02/06/20 Soha Nunn, INSURANCE SALESMAN.HIM MANAGER [address] [facility] [place] [address] Nurse Practitioner Hematology/Oncology 02/06/20 Arcelia Thomas, RN [address] [facility] [place] [address] Specialty Entry Level Project Coordinator Hematology/Oncology 02/06/20 Magnetic Prospecting Operator Relationship Specialty Start Date End Date Sana Key, DO [address] [place] [address] PCP - General Family Practice 12/05/20 Vimal Crandall MD [address] [facility] [place] [address] Physician Hematology/Oncology 02/06/20 Soha Nunn, INSURANCE SALESMAN.HIM MANAGER [address] [facility] [place] [address] Nurse Practitioner Hematology/Oncology 02/06/20 Arcelia Thomas, RN [address] [facility] [place] [address] Specialty Entry Level Project Coordinator Hematology/Oncology 02/06/20 Magnetic Prospecting Operator Relationship Specialty Start Date End Date Sana Key, DO [address] [place] [facility] [place] [address] PCP - General Family Practice 12/05/20 Vimal Crandall MD [address] [facility] [place] [address] Physician Hematology/Oncology 02/06/20 Soha Nunn, INSURANCE SALESMAN.HIM MANAGER [address] [facility] [place] [address] Nurse Practitioner Hematology/Oncology 02/06/20 Arcelia Thomas, RN [address] [facility] [place] [address] Specialty Entry Level Project Coordinator Hematology/Oncology 02/06/20 Magnetic Prospecting Operator Relationship Specialty Start Date End Date Sana Key, DO [address] [place] [place] [address] PCP - General Family Practice 12/05/20 Vimal Crandall MD [address] [facility] [place] [address] Physician Hematology/Oncology 02/06/20 Soha Nunn, INSURANCE SALESMAN.HIM MANAGER [address] [facility] [place] [address] Nurse Practitioner Hematology/Oncology 02/06/20 Arcelia Thomas, ALEX [address] [facility] [place] [address] Specialty Entry Level Project Coordinator Hematology/Oncology 02/06/20 Magnetic Prospecting Operator Relationship Specialty Start Date End Date Sana Key, DO [address] [place] [place] [address] PCP - General Family Practice 12/05/20 Vimal Crandall MD [address] [facility] [place] [address] Physician Hematology/Oncology 02/06/20 Soha Nunn, INSURANCE SALESMAN.HIM MANAGER [address] [facility] [place] [address] Nurse Practitioner Hematology/Oncology 02/06/20 Arcelia Thomas, RN [address] [facility] [place] [address] Specialty Entry Level Project Coordinator Hematology/Oncology 02/06/20 Magnetic Prospecting Operator Relationship Specialty Start Date End Date Sana Key, DO [address] [place] [place] [address] PCP - General Family Practice 12/05/20 Vimal Crandall MD [address] [facility] [place] [address] Physician Hematology/Oncology 02/06/20 Soha Nunn, INSURANCE SALESMAN.HIM MANAGER [address] [facility] [place] [address] Nurse Practitioner Hematology/Oncology 02/06/20 Arcelia Thomas, RN [address] [facility] [place] [address] Specialty Entry Level Project Coordinator Hematology/Oncology 02/06/20 Magnetic Prospecting Operator Relationship Specialty Start Date End Date Sana Key, DO [address] [place] [address] PCP - General Family Practice 12/05/20 Vimal Crandall MD [address] [facility] [place] [address] Physician Hematology/Oncology 02/06/20 Soha Nunn, INSURANCE SALESMAN.HIM MANAGER [address] [facility] [place] [address] Nurse Practitioner Hematology/Oncology 02/06/20 Arcelia Thomas, RN [address] [facility] [place] [address] Specialty Entry Level Project Coordinator Hematology/Oncology 02/06/20 Magnetic Prospecting Operator Relationship Specialty Start Date End Date Sana Key, DO [address] [place] [address] PCP - General Family Practice 12/05/20 Vimal Crandall MD [address] [facility] [place] [address] Physician Hematology/Oncology 02/06/20 Soha Nnun, INSURANCE SALESMAN.HIM MANAGER [address] [facility] [place] [address] Nurse Practitioner Hematology/Oncology 02/06/20 Arcelia Thomas, RN [address] [facility] [place] [address] Specialty Entry Level Project Coordinator Hematology/Oncology 02/06/20 Magnetic Prospecting Operator Relationship Specialty Start Date End Date Sana Key, DO [address] [place] [address] PCP - General Family Practice 12/05/20 Vimal Crandall MD [address] [facility] [place] [address] Physician Hematology/Oncology 02/06/20 Soha Nunn, INSURANCE SALESMAN.HIM MANAGER [address] [facility] [place] [address] Nurse Practitioner Hematology/Oncology 02/06/20 Arcelia Thomas, ALEX [address] [facility] [place] [address] Specialty Entry Level Project Coordinator Hematology/Oncology 02/06/20 Magnetic Prospecting Operator Relationship Specialty Start Date End Date Sana Key, DO [address] [place] [address] PCP - General Family Practice 12/05/20 Vimal Crandall MD [address] [facility] [place] [address] Physician Hematology/Oncology 02/06/20 Soha Nunn, INSURANCE SALESMAN.HIM MANAGER [address] [facility] [place] [address] Nurse Practitioner Hematology/Oncology 02/06/20 Arcelia Thomas, ALEX [address] [facility] [place] [address] Specialty Entry Level Project Coordinator Hematology/Oncology 02/06/20 Magnetic Prospecting Operator Relationship Specialty Start Date End Date Sana Key, DO [address] [place] [place] [address] PCP - General Family Practice 12/05/20 Vimal Crandall MD [address] [facility] [place] [address] Physician Hematology/Oncology 02/06/20 Soha Nunn, INSURANCE SALESMAN.HIM MANAGER [address] [facility] [place] [place] [address] Nurse Practitioner Hematology/Oncology 02/06/20 Arcelia Thomas, RN [address] [facility] [place] [address] Specialty Entry Level Project Coordinator Hematology/Oncology 02/06/20 Magnetic Prospecting Operator Relationship Specialty Start Date End Date Sana Key, DO [address] [place] [address] PCP - General Family Practice 12/05/20 Vimal Crandall MD [address] [facility] [place] [address] Physician Hematology/Oncology 02/06/20 Soha Nunn, INSURANCE SALESMAN.HIM MANAGER [address] [facility] [place] [address] Nurse Practitioner Hematology/Oncology 02/06/20 Arcelia Thomas, ALEX [address] [facility] [place] [address] Specialty Entry Level Project Coordinator Hematology/Oncology 02/06/20 Team Status: Inactive Member Role Status Dates Sana Key DO Primary Care Provider Active Mena Nunez , [facility]- Emergency Provider Active Team Status: Active Member Role Status Dates Sana Key DO Primary Care Provider Active Magnetic Prospecting Operator Relationship Specialty Start Date End Date Sana Key, DO [address] [place] [place] [address] PCP - General Family Medicine 12/05/20 Vimal Crandall MD [address] [facility] [address] [place], [place] [address] Physician Hematology/Oncology 02/06/20 Soha Nunn, INSURANCE SALESMAN.HIM MANAGER [address] [facility] [place] [address] Nurse Practitioner Hematology/Oncology 02/06/20 Arcelia Thomas, RN [address] [facility] [place] [address] Specialty Entry Level Project Coordinator Hematology/Oncology 02/06/20 Magnetic Prospecting Operator Relationship Specialty Start Date End Date Sana Key, DO [address] [place] [address] PCP - General Family Medicine 12/05/20 Vimal Crandall MD [address] [facility] [place] [address] Physician Hematology/Oncology 02/06/20 Soha Nunn, INSURANCE SALESMAN.HIM MANAGER [address] [facility] [place] [place] [address] Nurse Practitioner Hematology/Oncology 02/06/20 Arcelia Thomas, RN [address] [facility] [place] [address] Specialty Entry Level Project Coordinator Hematology/Oncology 02/06/20 Magnetic Prospecting Operator Relationship Specialty Start Date End Date Sana Key, DO [address] [place] [address] PCP - General Family Medicine 12/05/20 Vimal Crandall MD [address] [facility] [place] [address] Physician Hematology/Oncology 02/06/20 Soha Nunn, INSURANCE SALESMAN.HIM MANAGER [address] [facility] [place] [address] Nurse Practitioner Hematology/Oncology 02/06/20 Arcelia Thomas, RN [address] [facility] [place] [address] Specialty Entry Level Project Coordinator Hematology/Oncology 02/06/20 Magnetic Prospecting Operator Relationship Specialty Start Date End Date WalterSana cisnerosce, DO [address] [place] [address] PCP - General Family Medicine 12/05/20 Vimal Crandall MD [address] [facility] [place] [address] Physician Hematology/Oncology 02/06/20 Soha Nunn, INSURANCE SALESMAN.HIM MANAGER [address] [facility] [place] [address] Nurse Practitioner Hematology/Oncology 02/06/20 Arcelia Thomas, RN [address] [facility] [place] [address] Specialty Entry Level Project Coordinator Hematology/Oncology 02/06/20 Magnetic Prospecting Operator Relationship Specialty Start Date End Date Sana Key, DO [address] [place] [address] PCP - General Family Medicine 12/05/20 Vimal Crandall MD [address] [facility] [place] [address] Physician Hematology/Oncology 02/06/20 Soha Nunn, INSURANCE SALESMAN.HIM MANAGER [address] [facility] [place] [address] Nurse Practitioner Hematology/Oncology 02/06/20 Arcelia Thomas, RN [address] [facility] [facility] [place] [address] Specialty Entry Level Project Coordinator Hematology/Oncology 02/06/20 Magnetic Prospecting Operator Relationship Specialty Start Date End Date WalterSana cisneros, DO [address] [place] [address] PCP - General Family Medicine 12/05/20 Vimal Crandall MD [address] [facility] [place] [address] Physician Hematology/Oncology 02/06/20 Soha Nunn, INSURANCE SALESMAN.HIM MANAGER [address] [facility] [place] [address] Nurse Practitioner Hematology/Oncology 02/06/20 Arcelia Thomas, ALEX [address] [facility] [place] [address] Specialty Entry Level Project Coordinator Hematology/Oncology 02/06/20 Team Status: Inactive Member Role Status Dates Sana Pascal , SEWING MACHINE OPERATOR PAPER BAGS-C Attending Provider Active Magnetic Prospecting Operator Relationship Specialty Start Date End Date WalterSana villar, DO [address] [place] [address] PCP - General Family Medicine 12/05/20 Vimal Crandall MD [address] [facility] [place] [address] Physician Hematology/Oncology 02/06/20 Soha Nunn, INSURANCE SALESMAN.HIM MANAGER [address] [facility] [place] [address] Nurse Practitioner Hematology/Oncology 02/06/20 Arcelia Thomas, ALEX [address] [facility] [place] [address] Specialty Entry Level Project Coordinator Hematology/Oncology 02/06/20 Magnetic Prospecting Operator Relationship Specialty Start Date End Date Sana Key, DO [address] [place] [address] PCP - General Family Medicine 12/05/20 Vimal Crandall MD [address] [facility] [place] [address] Physician Hematology/Oncology 02/06/20 Soha Nunn, INSURANCE SALESMAN.HIM MANAGER [address] [facility] [place] [address] Nurse Practitioner Hematology/Oncology 02/06/20 Arcelia Thomas, ALEX [address] [facility] [place] [address] Specialty Entry Level Project Coordinator Hematology/Oncology 02/06/20 Magnetic Prospecting Operator Relationship Specialty Start Date End Date Sana Key, DO [address] [place] [facility] [place] [address] PCP - General Family Medicine 12/05/20 Vimal Crandall MD [address] [facility] [place] [address] Physician Hematology/Oncology 02/06/20 Soha Nunn, INSURANCE SALESMAN.HIM MANAGER [address] [facility] [place] [address] Nurse Practitioner Hematology/Oncology 02/06/20 Arcelia Thomas, ALEX [address] [facility] [place] [address] Specialty Entry Level Project Coordinator Hematology/Oncology 02/06/20 Magnetic Prospecting Operator Relationship Specialty Start Date End Date Sana Key, DO [address] [place] [place] [address] PCP - General Family Medicine 12/05/20 Vimal Crandall MD [address] [facility] [place] [address] Physician Hematology/Oncology 02/06/20 Soha Nunn, INSURANCE SALESMAN.HIM MANAGER [address] [facility] [place] [address] Nurse Practitioner Hematology/Oncology 02/06/20 Arcelia Thomas, RN [address] [facility] [place] [address] Specialty Entry Level Project Coordinator Hematology/Oncology 02/06/20 Magnetic Prospecting Operator Relationship Specialty Start Date End Date WalterSana Christina, DO [address] [place] [address] PCP - General Family Medicine 12/05/20 Vimal Crandall MD [address] [facility] [place] [address] Physician Hematology/Oncology 02/06/20 Soha Nunn, INSURANCE SALESMAN.HIM MANAGER [address] [facility] [place] [address] Nurse Practitioner Hematology/Oncology 02/06/20 Arcelia Thomas, RN [address] [facility] [place] [address] Specialty Entry Level Project Coordinator Hematology/Oncology 02/06/20 Magnetic Prospecting Operator Relationship Specialty Start Date End Date Sana Key, DO [address] [place] [address] PCP - General Family Medicine 12/05/20 Vimal Crandall MD [address] [facility] [place] [address] Physician Hematology/Oncology 02/06/20 Soha Nunn, INSURANCE SALESMAN.HIM MANAGER [address] [facility] [place] [address] Nurse Practitioner Hematology/Oncology 02/06/20 Arcelia Thomas, RN [address] [facility] [place] [address] Specialty Entry Level Project Coordinator Hematology/Oncology 02/06/20 Magnetic Prospecting Operator Relationship Specialty Start Date End Date Sana Key, DO [address] [place] [address] PCP - General Family Medicine 12/05/20 Vimal Crandall MD [address] [facility] [place] [address] Physician Hematology/Oncology 02/06/20 Soha Nunn, INSURANCE SALESMAN.HIM MANAGER [address] [facility] [place] [address] Nurse Practitioner Hematology/Oncology 02/06/20 Arcelia Thomas, RN [address] [facility] [place] [address] Specialty Entry Level Project Coordinator Hematology/Oncology 02/06/20 Magnetic Prospecting Operator Relationship Specialty Start Date End Date WalterSana, DO [address] [place] [address] PCP - General Family Medicine 12/05/20 Vimal Crandall MD [address] [facility] [place] [address] Physician Hematology/Oncology 02/06/20 Soha Nunn, INSURANCE SALESMAN.HIM MANAGER [address] [facility] [place] [address] Nurse Practitioner Hematology/Oncology 02/06/20 Arcelia Thomas, ALEX [address] [facility] [place] [address] Specialty Entry Level Project Coordinator Hematology/Oncology 02/06/20 Magnetic Prospecting Operator Relationship Specialty Start Date End Date Sana Key, DO [address] [place] [address] PCP - General Family Medicine 12/05/20 Vimal Crandall MD [address] [facility] [place] [address] Physician Hematology/Oncology 02/06/20 Soha Nunn, INSURANCE SALESMAN.HIM MANAGER [address] [facility] [place] [address] Nurse Practitioner Hematology/Oncology 02/06/20 Arcelia Thomas, RN [address] [facility] [place] [address] Specialty Entry Level Project Coordinator Hematology/Oncology 02/06/20 Magnetic Prospecting Operator Relationship Specialty Start Date End Date Sana Key, DO [address] [place] [address] PCP - General Family Medicine 12/05/20 Vimal Crandall MD [address] [facility] [place] [address] Physician Hematology/Oncology 02/06/20 Soha Nunn, INSURANCE SALESMAN.HIM MANAGER [address] [facility] [place] [address] Nurse Practitioner Hematology/Oncology 02/06/20 Arcelia Thomas, ALEX [address] [facility] [place] [address] Specialty Entry Level Project Coordinator Hematology/Oncology 02/06/20 Magnetic Prospecting Operator Relationship Specialty Start Date End Date Sana Key, DO [address] [place] [address] PCP - General Family Medicine 12/05/20 Vimal Crandall MD [address] [facility] [place] [address] Physician Hematology/Oncology 02/06/20 Soha Nunn, INSURANCE SALESMAN.HIM MANAGER [address] [facility] [place] [address] Nurse Practitioner Hematology/Oncology 02/06/20 Arcelia Thomas, RN [address] [facility] [place] [address] Specialty Entry Level Project Coordinator Hematology/Oncology 02/06/20 Magnetic Prospecting Operator Relationship Specialty Start Date End Date Sana Key, DO [address] [place] [address] PCP - General Family Medicine 12/05/20 Vimal Crandall MD [address] [facility] [place] [address] Physician Hematology/Oncology 02/06/20 Soha Nunn, INSURANCE SALESMAN.HIM MANAGER [address] [facility] [place] [address] Nurse Practitioner Hematology/Oncology 02/06/20 Arcelia Thomas, RN [address] [facility] [place] [address] Specialty Entry Level Project Coordinator Hematology/Oncology 02/06/20 Magnetic Prospecting Operator Relationship Specialty Start Date End Date WalterSana, DO [address] [facility] [place] [address] PCP - General Family Medicine 12/05/20 Vimal Crandall MD [address] [facility] [place] [address] Physician Hematology/Oncology 02/06/20 Soha Nunn, INSURANCE SALESMAN.HIM MANAGER [address] [facility] [place] [address] Nurse Practitioner Hematology/Oncology 02/06/20 Arcelia Thomas, RN [address] [facility] [place] [address] Specialty Entry Level Project Coordinator Hematology/Oncology 02/06/20 Magnetic Prospecting Operator Relationship Specialty Start Date End Date WalterSana, DO [address] [place] [address] PCP - General Family Medicine 12/05/20 Vimal Crandall MD [address] [facility] [place] [address] Physician Hematology/Oncology 02/06/20 Soha Nunn, INSURANCE SALESMAN.HIM MANAGER [address] [facility] [place] [address] Nurse Practitioner Hematology/Oncology 02/06/20 Arcelia Thomas, ALEX [address] [facility] [place] [address] Specialty Entry Level Project Coordinator Hematology/Oncology 02/06/20 Magnetic Prospecting Operator Relationship Specialty Start Date End Date Sana Key DO [address] [place] [address] PCP - General Family Medicine 12/05/20 Vimal Crandall MD [address] [facility] [place] [address] Physician Hematology/Oncology 02/06/20 Soha Nunn, INSURANCE SALESMAN.HIM MANAGER [address] [facility] [place] [address] Nurse Practitioner Hematology/Oncology 02/06/20 Arcelia Thomas, ALEX [address] [facility] [place] [address] Specialty Entry Level Project Coordinator Hematology/Oncology 02/06/20 Magnetic Prospecting Operator Relationship Specialty Start Date End Date Sana Key DO [address] [place] [address] PCP - General Family Medicine 12/05/20 Vimal Crandall MD [address] [facility] [place] [address] Physician Hematology/Oncology 02/06/20 Soha Nunn, INSURANCE SALESMAN.HIM MANAGER [address] [facility] [place] [address] Nurse Practitioner Hematology/Oncology 02/06/20 Arcelia Thomas, ALEX [address] [facility] [place] [address] Specialty Entry Level Project Coordinator Hematology/Oncology 02/06/20 Magnetic Prospecting Operator Relationship Specialty Start Date End Date Sana KeyDO [address] [facility] [place] [address] PCP - General Family Medicine 12/05/20 Vimal Crandall MD [address] [facility] [place] [address] Physician Hematology/Oncology 02/06/20 Soha Nunn, INSURANCE SALESMAN.HIM MANAGER [address] [facility] [place] [address] Nurse Practitioner Hematology/Oncology 02/06/20 Arcelia Thomas, ALEX [address] [facility] [place] [address] Specialty Entry Level Project Coordinator Hematology/Oncology 02/06/20 Magnetic Prospecting Operator Relationship Specialty Start Date End Date Walter Sana ChristinaDO [address] [place] [address] PCP - General Family Medicine 12/05/20 Vimal Crandall MD [address] [facility] [place] [address] Physician Hematology/Oncology 02/06/20 Soha Nunn, INSURANCE SALESMAN.HIM MANAGER [address] [facility] [place] [address] Nurse Practitioner Hematology/Oncology 02/06/20 Arcelia Thomas, ALEX [address] [facility] [place] [address] Specialty Entry Level Project Coordinator Hematology/Oncology 02/06/20 Magnetic Prospecting Operator Relationship Specialty Start Date End Date WalterSana DO [address] [facility] [place] [address] PCP - General Family Medicine 12/05/20 Vimal Crandall MD [address] [facility] [place] [address] Physician Hematology/Oncology 02/06/20 Soha Nunn, INSURANCE SALESMAN.HIM MANAGER [address] [facility] [address] [place] [address] Nurse Practitioner Hematology/Oncology 02/06/20 Arcelia Thomas RN [address] [facility] [place] [address] Specialty Entry Level Project Coordinator Hematology/Oncology 02/06/20 Magnetic Prospecting Operator Relationship Specialty Start Date End Date Sana Key DO [address] [facility] [place] [address] PCP - General Family Medicine 12/05/20 Vimal Crandall MD [address] [facility] [place] [address] Physician Hematology/Oncology 02/06/20 Soha Nunn, INSURANCE SALESMAN.HIM MANAGER [address] [facility] [address] [place] [address] Nurse Practitioner Hematology/Oncology 02/06/20 Arcelia Thomas, ALEX [address] [facility] [place] [address] Specialty Entry Level Project Coordinator Hematology/Oncology 02/06/20 Magnetic Prospecting Operator Relationship Specialty Start Date End Date Sana Key DO [address] [place] [address] PCP - General Family Medicine 12/05/20 Vimal Crandall MD [address] [facility] [place] [address] Physician Hematology/Oncology 02/06/20 Soha Nunn, INSURANCE SALESMAN.HIM MANAGER [address] [facility] [place] [address] Nurse Practitioner Hematology/Oncology 02/06/20 Arcelia Thomas RN [address] [facility] [place] [address] Specialty Entry Level Project Coordinator Hematology/Oncology 02/06/20 Magnetic Prospecting Operator Relationship Specialty Start Date End Date Sana KeyDO [address] [facility] [place] [address] PCP - General Family Medicine 12/05/20 Vimal Crandall MD [address] [facility] [place] [address] Physician Hematology/Oncology 02/06/20 Soha Nunn, INSURANCE SALESMAN.HIM MANAGER [address] [facility] [place] [address] Nurse Practitioner Hematology/Oncology 02/06/20 Arcelia Thomas RN [address] [place] [address] Specialty Entry Level Project Coordinator Hematology/Oncology 02/06/20 Magnetic Prospecting Operator Relationship Specialty Start Date End Date Sana Key DO [address] [place] [address] PCP - General Family Medicine 12/05/20 Vimal Crandall MD [address] [place] [address] Physician Hematology/Oncology 02/06/20 Soha Nunn, INSURANCE SALESMAN.HIM MANAGER [address] [place] [address] Nurse Practitioner Hematology/Oncology 02/06/20 Arcelia Thomas RN [address] [facility] [place] [address] Specialty Entry Level Project Coordinator Hematology/Oncology 02/06/20 Magnetic Prospecting Operator Relationship Specialty Start Date End Date Sana Key DO [address] [place] [address] PCP - General Family Medicine 12/05/20 Vimal Crandall MD [address] [facility] [place] [address] Physician Hematology/Oncology 02/06/20 Soha Nunn, INSURANCE SALESMAN.HIM MANAGER [address] [place] [address] Nurse Practitioner Hematology/Oncology 02/06/20 Arcelia Thomas RN [address] [facility] [place] [address] Specialty Entry Level Project Coordinator Hematology/Oncology 02/06/20 Magnetic Prospecting Operator Relationship Specialty Start Date End Date Sana Key DO [address] [facility] [place] [address] PCP - General Family Medicine 12/05/20 Vimal Crandall MD [address] [facility] [place] [address] Physician Hematology/Oncology 02/06/20 Soha Nunn, INSURANCE SALESMAN.HIM MANAGER [address] [facility] [place] [address] Nurse Practitioner Hematology/Oncology 02/06/20 Arcelia Thomas, ALEX [address] [facility] [place] [address] Specialty Entry Level Project Coordinator Hematology/Oncology 02/06/20 Magnetic Prospecting Operator Relationship Specialty Start Date End Date Sana Key DO [address] [facility] [place] [address] PCP - General Family Medicine 12/05/20 Vimal Crandall MD [address] [facility] [place] [address] Physician Hematology/Oncology 02/06/20 Soha Nunn, INSURANCE SALESMAN.HIM MANAGER [address] [facility] [place] [address] Nurse Practitioner Hematology/Oncology 02/06/20 Arcelia Thomas, ALEX [address] [facility] [place] [address] Specialty Entry Level Project Coordinator Hematology/Oncology 02/06/20 Magnetic Prospecting Operator Relationship Specialty Start Date End Date Sana Key DO [address] [place] [address] PCP - General Family Medicine 12/05/20 Vimal Crandall MD [address] [place] [address] Physician Hematology/Oncology 02/06/20 Soha Nunn, INSURANCE SALESMAN.HIM MANAGER [address] [place] [address] Nurse Practitioner Hematology/Oncology 02/06/20 Arcelia Thomas, ALEX [address] [place] [address] Specialty Entry Level Project Coordinator Hematology/Oncology 02/06/20 Magnetic Prospecting Operator Relationship Specialty Start Date End Date Sana Key DO [address] [place] [address] PCP - General Family Medicine 12/05/20 Vimal Crandall MD [address] [place] [address] Physician Hematology/Oncology 02/06/20 Soha Nunn, INSURANCE SALESMAN.HIM MANAGER [address] [place] [address] Nurse Practitioner Hematology/Oncology 02/06/20 Arcelia Thomas, ALEX [address] [place] [address] Specialty Entry Level Project Coordinator Hematology/Oncology 02/06/20 Magnetic Prospecting Operator Relationship Specialty Start Date End Date Sana Key DO [address] [facility] [place] [address] PCP - General Family Medicine 12/05/20 Vimal Crandall MD [address] [facility] [place] [address] Physician Hematology/Oncology 02/06/20 Soha Nunn, INSURANCE SALESMAN.HIM MANAGER [address] [facility] [place] [address] Nurse Practitioner Hematology/Oncology 02/06/20 Arcelia Thomas, ALEX [address] [facility] [place] [address] Specialty Entry Level Project Coordinator Hematology/Oncology 02/06/20 Magnetic Prospecting Operator Relationship Specialty Start Date End Date Sana Key DO [address] [facility] [place] [address] PCP - General Family Medicine 12/05/20 Vimal Crandall MD [address] [facility] [place] [address] Physician Hematology/Oncology 02/06/20 Soha Nunn, INSURANCE SALESMAN.HIM MANAGER [address] [facility] [address] [place] [address] Nurse Practitioner Hematology/Oncology 02/06/20 Arcelia Thomas, ALEX [address] [facility] [place] [address] Specialty Entry Level Project Coordinator Hematology/Oncology 02/06/20 Magnetic Prospecting Operator Relationship Specialty Start Date End Date Sana Key DO [address] [facility] [place] [address] PCP - General Family Medicine 12/05/20 Vimal Crandall MD [address] [facility] [place] [address] Physician Hematology/Oncology 02/06/20 Soha Nunn, INSURANCE SALESMAN.HIM MANAGER [address] [facility] [place] [address] Nurse Practitioner Hematology/Oncology 02/06/20 Arcelia Thomas, ALEX [address] [facility] [place] [address] Specialty Entry Level Project Coordinator Hematology/Oncology 02/06/20 Magnetic Prospecting Operator Relationship Specialty Start Date End Date Sana Key DO [address] [facility] [place] [address] PCP - General Family Medicine 12/05/20 Vimal Crandall MD [address] [facility] [place] [address] Physician Hematology/Oncology 02/06/20 Soha Nunn, INSURANCE SALESMAN.HIM MANAGER [address] [facility] [place] [address] Nurse Practitioner Hematology/Oncology 02/06/20 Arcelia Thomas, ALEX [address] [facility] [place] [address] Specialty Entry Level Project Coordinator Hematology/Oncology 02/06/20 Magnetic Prospecting Operator Relationship Specialty Start Date End Date Sana Key DO [address] [place] [address] PCP - General Family Medicine 12/05/20 Vimal Crandall MD [address] [facility] [place] [address] Physician Hematology/Oncology 02/06/20 Soha Nunn, INSURANCE SALESMAN.HIM MANAGER [address] [facility] [place] [address] Nurse Practitioner Hematology/Oncology 02/06/20 Arcelia Thomas, ALEX [address] [facility] [place] [address] Specialty Entry Level Project Coordinator Hematology/Oncology 02/06/20 Magnetic Prospecting Operator Relationship Specialty Start Date End Date Sana Key DO [address] [facility] [place] [address] PCP - General Family Medicine 12/05/20 Vimal Crandall MD [address] [facility] [place] [address] Physician Hematology/Oncology 02/06/20 Soha Nunn, INSURANCE SALESMAN.HIM MANAGER [address] [facility] [place] [address] Nurse Practitioner Hematology/Oncology 02/06/20 Arcelia Thomas RN [address] [facility] [place] [address] Specialty Entry Level Project Coordinator Hematology/Oncology 02/06/20 Magnetic Prospecting Operator Relationship Specialty Start Date End Date Sana Key DO [address] [facility] [place] [address] PCP - General Family Medicine 12/05/20 Vimal Crandall MD [address] [facility] [place] [address] Physician Hematology/Oncology 02/06/20 Soha Nunn, INSURANCE SALESMAN.HIM MANAGER [address] [facility] [place] [address] Nurse Practitioner Hematology/Oncology 02/06/20 Arcelia Thomas, ALEX [address] [facility] [place] [address] Specialty Entry Level Project Coordinator Hematology/Oncology 02/06/20 Magnetic Prospecting Operator Relationship Specialty Start Date End Date Letha Best [address] [place] [address] PCP - General Family Medicine 06/15/23 Vimal Crandall MD [address] [facility] [place] [address] Physician Hematology/Oncology 02/06/20 Soha Nunn, INSURANCE SALESMAN.HIM MANAGER [address] [facility] [place] [address] Nurse Practitioner Hematology/Oncology 02/06/20 Arcelia Thomas, ALEX [address] [facility] [place] [address] Specialty Entry Level Project Coordinator Hematology/Oncology 02/06/20 Magnetic Prospecting Operator Relationship Specialty Start Date End Date Letha Best [address] [place] [address] PCP - General Family Medicine 06/15/23 Vimal Crandall MD [address] [facility] [place] [address] Physician Hematology/Oncology 02/06/20 Soha Nunn, INSURANCE SALESMAN.HIM MANAGER [address] [facility] [place] [address] Nurse Practitioner Hematology/Oncology 02/06/20 Arcelia Thomas, RN [address] [facility] [place] [address] Specialty Entry Level Project Coordinator Hematology/Oncology 02/06/20 Magnetic Prospecting Operator Relationship Specialty Start Date End Date Letha Best MD [address] [place] [facility] [place] [address] PCP - General Family Medicine 05/18/23 Magnetic Prospecting Operator Relationship Specialty Start Date End Date Letha Best MD [address] [facility] [place] [address] PCP - General Family Medicine 05/18/23 Magnetic Prospecting Operator Relationship Specialty Start Date End Date Letha Best [address] [facility] [place] [address] PCP - General Family Medicine 06/15/23 Vimal Crandall MD [address] [facility] [place] [address] Physician Hematology/Oncology 02/06/20 Soha Nunn, INSURANCE SALESMAN.HIM MANAGER [address] [facility] [place] [address] Nurse Practitioner Hematology/Oncology 02/06/20 Arcelia Thomas, RN [address] [facility] [place] [address] Specialty Entry Level Project Coordinator Hematology/Oncology 02/06/20 Magnetic Prospecting Operator Relationship Specialty Start Date End Date Letha Best [address] [facility] [place] [phone] PCP - General Family Medicine 06/15/23 Vimal Crandall MD [address] [place] [address] Physician Hematology/Oncology 02/06/20 Soha Nunn, INSURANCE SALESMAN.HIM MANAGER [address] [place] [address] Nurse Practitioner Hematology/Oncology 02/06/20 Arcelia Thomas, ALEX [address] [facility] [place] [address] Specialty Entry Level Project Coordinator Hematology/Oncology 02/06/20 Magnetic Prospecting Operator Relationship Specialty Start Date End Date Letha Best [address] [facility] [place] [phone] PCP - General Family Medicine 06/15/23 Vimal Crandall MD [address] [facility] [place] [address] Physician Hematology/Oncology 02/06/20 Soha Nunn, INSURANCE SALESMAN.HIM MANAGER [address] [place] [address] Nurse Practitioner Hematology/Oncology 02/06/20 Arcelia Thomas, ALEX [address] [facility] [place] [address] Specialty Entry Level Project Coordinator Hematology/Oncology 02/06/20 Magnetic Prospecting Operator Relationship Specialty Start Date End Date Letha Best [address] [facility] [place] [phone] PCP - General Family Medicine 06/15/23 Vimal Crandall MD [address] [facility] [place] [address] Physician Hematology/Oncology 02/06/20 Soha Nunn, INSURANCE SALESMAN.HIM MANAGER [address] [facility] [place] [address] Nurse Practitioner Hematology/Oncology 02/06/20 Arcelia Thomas, ALEX [address] [facility] [place] [address] Specialty Entry Level Project Coordinator Hematology/Oncology 02/06/20 Magnetic Prospecting Operator Relationship Specialty Start Date End Date Letha Best [address] [place] [address] PCP - General Family Medicine 06/15/23 Vimal Crandall MD [address] [facility] [address] [place] [address] Physician Hematology/Oncology 02/06/20 Soha Nunn, INSURANCE SALESMAN.HIM MANAGER [address] [place] [address] Nurse Practitioner Hematology/Oncology 02/06/20 Arcelia Thomas, ALEX [address] [facility] [address] [place] [address] Specialty Entry Level Project Coordinator Hematology/Oncology 02/06/20 Magnetic Prospecting Operator Relationship Specialty Start Date End Date Letha Best [address] [place] [address] PCP - General Family Medicine 06/15/23 Vimal Crandall MD [address] [facility] [place] [address] Physician Hematology/Oncology 02/06/20 Soha Nunn, INSURANCE SALESMAN.HIM MANAGER [address] [place] [address] Nurse Practitioner Hematology/Oncology 02/06/20 Arcelia Thomas, ALEX [address] [place] [address] Specialty Entry Level Project Coordinator Hematology/Oncology 02/06/20 Magnetic Prospecting Operator Relationship Specialty Start Date End Date Letha Best [address] [facility] [place] [address] PCP - General Family Medicine 06/15/23 Vimal Crandall MD [address] [facility] [place] [address] Physician Hematology/Oncology 02/06/20 Soha Nunn, INSURANCE SALESMAN.HIM MANAGER [address] [place] [address] Nurse Practitioner Hematology/Oncology 02/06/20 Arcelia Thomas, ALEX [address] [facility] [place] [address] Specialty Entry Level Project Coordinator Hematology/Oncology 02/06/20 Magnetic Prospecting Operator Relationship Specialty Start Date End Date Letha Best [address] [place] [phone] PCP - General Family Medicine 06/15/23 Vimal Crandall MD [address] [place] [address] Physician Hematology/Oncology 02/06/20 Soha Nunn, INSURANCE SALESMAN.HIM MANAGER [address] [facility] [place] [address] Nurse Practitioner Hematology/Oncology 02/06/20 Arcelia Thomas, ALEX [address] [facility] [place] [address] Specialty Entry Level Project Coordinator Hematology/Oncology 02/06/20 Magnetic Prospecting Operator Relationship Specialty Start Date End Date Letha Best [address] [place] [address] PCP - General Family Medicine 06/15/23 Vimal Crandall MD [address] [facility] [place] [address] Physician Hematology/Oncology 02/06/20 Soha Nunn, INSURANCE SALESMAN.HIM MANAGER [address] [facility] [place] [address] Nurse Practitioner Hematology/Oncology 02/06/20 Arcelia Thomas RN [address] [facility] [place] [address] Specialty Entry Level Project Coordinator Hematology/Oncology 02/06/20 Magnetic Prospecting Operator Relationship Specialty Start Date End Date Letha Best [address] [place] [address] PCP - General Family Medicine 06/15/23 Vimal Crandall MD [address] [facility] [address] [place] [address] Physician Hematology/Oncology 02/06/20 Soha Nunn, INSURANCE SALESMAN.HIM MANAGER [address] [facility] [place] [address] Nurse Practitioner Hematology/Oncology 02/06/20 Arcelia Thomas, ALEX [address] [facility] [place] [address] Specialty Entry Level Project Coordinator Hematology/Oncology 02/06/20 Magnetic Prospecting Operator Relationship Specialty Start Date End Date Letha Best [address] [place] [address] PCP - General Family Medicine 06/15/23 Vimal Crandall MD [address] [facility] [place] [address] Physician Hematology/Oncology 02/06/20 Soha Nunn, INSURANCE SALESMAN.HIM MANAGER [address] [facility] [place] [address] Nurse Practitioner Hematology/Oncology 02/06/20 Arcelia Thomas, ALEX [address] [facility] [place] [address] Specialty Entry Level Project Coordinator Hematology/Oncology 02/06/20 Magnetic Prospecting Operator Relationship Specialty Start Date End Date Letha Best [address] [place] [address] PCP - General Family Medicine 06/15/23 Vimal Crandall MD [address] [facility] [place] [address] Physician Hematology/Oncology 02/06/20 Soha Nunn, INSURANCE SALESMAN.HIM MANAGER [address] [place] [address] Nurse Practitioner Hematology/Oncology 02/06/20 Arcelia Thomas, ALEX [address] [place] [address] Specialty Entry Level Project Coordinator Hematology/Oncology 02/06/20 Magnetic Prospecting Operator Relationship Specialty Start Date End Date Letha Best [address] [facility] [place] [address] PCP - General Family Medicine 06/15/23 Vimal Crandall MD [address] [place] [address] Physician Hematology/Oncology 02/06/20 Soha Nunn, INSURANCE SALESMAN.HIM MANAGER [address] [place] [address] Nurse Practitioner Hematology/Oncology 02/06/20 Arcelia Thomas, ALEX [address] [facility] [place] [address] Specialty Entry Level Project Coordinator Hematology/Oncology 02/06/20 Magnetic Prospecting Operator Relationship Specialty Start Date End Date Letha Best [address] [facility] [phone] PCP - General Family Medicine 06/15/23 Vimal Crandall MD [address] [place] [address] Physician Hematology/Oncology 02/06/20 Soha Nunn, INSURANCE SALESMAN.HIM MANAGER [address] [facility] [place] [address] Nurse Practitioner Hematology/Oncology 02/06/20 Arcelia Thomas, ALEX [address] [facility] [place] [address] Specialty Entry Level Project Coordinator Hematology/Oncology 02/06/20 Magnetic Prospecting Operator Relationship Specialty Start Date End Date Lteha Best [address] [facility] [place] [address] PCP - General Family Medicine 06/15/23 Vimal Crandall MD [address] [facility] [place] [address] Physician Hematology/Oncology 02/06/20 Soha Nunn, INSURANCE SALESMAN.HIM MANAGER [address] [facility] [place] [address] Nurse Practitioner Hematology/Oncology 02/06/20 Arcelia Thomas RN [address] [facility] [place] [address] Specialty Entry Level Project Coordinator Hematology/Oncology 02/06/20 Magnetic Prospecting Operator Relationship Specialty Start Date End Date Letha Best [address] [facility] [place] [phone] PCP - General Family Medicine 06/15/23 Vimal Crandall MD [address] [facility] [place] [address] Physician Hematology/Oncology 02/06/20 Soha Nunn, INSURANCE SALESMAN.HIM MANAGER [address] [facility] [place] [address] Nurse Practitioner Hematology/Oncology 02/06/20 Arcelia Thomas RN [address] [place] [address] Specialty Entry Level Project Coordinator Hematology/Oncology 02/06/20 Magnetic Prospecting Operator Relationship Specialty Start Date End Date Letha Best [address] [place] [address] PCP - General Family Medicine 06/15/23 Vimal Crandall MD [address] [place] [address] Physician Hematology/Oncology 02/06/20 Soha Nunn, INSURANCE SALESMAN.HIM MANAGER [address] [place] [address] Nurse Practitioner Hematology/Oncology 02/06/20 Arcelia Thomas RN [address] [place] [address] Specialty Entry Level Project Coordinator Hematology/Oncology 02/06/20 Magnetic Prospecting Operator Relationship Specialty Start Date End Date Letha Best [address] [facility] [place] [phone] PCP - General Family Medicine 06/15/23 Vimal Crandall MD [address] [place] [address] Physician Hematology/Oncology 02/06/20 Soha Nunn, INSURANCE SALESMAN.HIM MANAGER [address] [place] [address] Nurse Practitioner Hematology/Oncology 02/06/20 Arcelia Thomas RN [address] [place] [address] Specialty Entry Level Project Coordinator Hematology/Oncology 02/06/20 Magnetic Prospecting Operator Relationship Specialty Start Date End Date Nasir Letha Jefferson [address] [facility] [place] [phone] PCP - General Family Medicine 06/15/23 Vimal Crandall MD [address] [facility] [place] [address] Physician Hematology/Oncology 02/06/20 Soha Nunn, INSURANCE SALESMAN.HIM MANAGER [address] [facility] [place] [address] Nurse Practitioner Hematology/Oncology 02/06/20 Arcelia Thomas RN [address] [facility] [place] [address] Specialty Entry Level Project Coordinator Hematology/Oncology 02/06/20 Magnetic Prospecting Operator Relationship Specialty Start Date End Date NasirLetha garcia [address] [facility] [place] [phone] PCP - General Family Medicine 06/15/23 Vimal Crandall MD [address] [facility] [place] [address] Physician Hematology/Oncology 02/06/20 Soha Nunn, INSURANCE SALESMAN.HIM MANAGER [address] [place] [address] Nurse Practitioner Hematology/Oncology 02/06/20 Arcelia Thomas RN [address] [facility] [place] [address] Specialty Entry Level Project Coordinator Hematology/Oncology 02/06/20 Magnetic Prospecting Operator Relationship Specialty Start Date End Date Letha Best [address] [facility] [place] [address] PCP - General Family Medicine 06/15/23 Vimal Crandall MD [address] [facility] [place] [address] Physician Hematology/Oncology 02/06/20 Soha Nunn, INSURANCE SALESMAN.HIM MANAGER [address] [facility] [place] [address] Nurse Practitioner Hematology/Oncology 02/06/20 Arcelia Thomas, ALEX [address] [facility] [place] [address] Specialty Entry Level Project Coordinator Hematology/Oncology 02/06/20 Magnetic Prospecting Operator Relationship Specialty Start Date End Date Letha Best [address] [facility] [place] [phone] PCP - General Family Medicine 06/15/23 Vimal Crandall MD [address] [facility] [place] [address] Physician Hematology/Oncology 02/06/20 Soha Nunn, INSURANCE SALESMAN.HIM MANAGER [address] [facility] [place] [address] Nurse Practitioner Hematology/Oncology 02/06/20 Arcelia Thomas, ALEX [address] [facility] [place] [address] Specialty Entry Level Project Coordinator Hematology/Oncology 02/06/20 Magnetic Prospecting Operator Relationship Specialty Start Date End Date Letha Best [address] [place] [phone] PCP - General Family Medicine 06/15/23 Vimal Crandall MD [address] [facility] [place] [address] Physician Hematology/Oncology 02/06/20 Soha Nunn, INSURANCE SALESMAN.HIM MANAGER [address] [facility] [place] [address] Nurse Practitioner Hematology/Oncology 02/06/20 Arcelia Thomas, ALEX [address] [facility] [place] [address] Specialty Entry Level Project Coordinator Hematology/Oncology 02/06/20 Magnetic Prospecting Operator Relationship Specialty Start Date End Date Letha Best [address] [place] [address] PCP - General Family Medicine 06/15/23 Vimal Crandall MD [address] [facility] [place] [address] Physician Hematology/Oncology 02/06/20 Soha Nunn, INSURANCE SALESMAN.HIM MANAGER [address] [facility] [place] [address] Nurse Practitioner Hematology/Oncology 02/06/20 Arcelia Thomas, ALEX [address] [facility] [place] [address] Specialty Entry Level Project Coordinator Hematology/Oncology 02/06/20 Magnetic Prospecting Operator Relationship Specialty Start Date End Date Sana Key DO [address] [facility] [place] [address] PCP - General Family Medicine 12/05/20 06/14/23 Vimal Crandall MD [address] [facility] [place] [address] Physician Hematology/Oncology 02/06/20 Soha Nunn, INSURANCE SALESMAN.HIM MANAGER [address] [facility] [address] [place] [address] Nurse Practitioner Hematology/Oncology 02/06/20 Arcelia Thomas, ALEX [address] [facility] [address] [place] [address] Specialty Entry Level Project Coordinator Hematology/Oncology 02/06/20 Magnetic Prospecting Operator Relationship Specialty Start Date End Date Letha Best [address] [facility] [place] [phone] PCP - General Family Medicine 06/15/23 Vimal Crandall MD [address] [facility] [address] [place] [address] Physician Hematology/Oncology 02/06/20 Soha Nunn, INSURANCE SALESMAN.HIM MANAGER [address] [facility] [address] [place] [address] Nurse Practitioner Hematology/Oncology 02/06/20 Arcelia Thomas, ALEX [address] [facility] [facility] [address] [place] [address] Specialty Entry Level Project Coordinator Hematology/Oncology 02/06/20 Magnetic Prospecting Operator Relationship Specialty Start Date End Date Letha Best MD [address] [facility] [place], [place] [phone] PCP - General Family Medicine 05/18/23 Sana Key DO [address] [facility] [place] [address] PCP - ACO Reach 07/08/23 Magnetic Prospecting Operator Relationship Specialty Start Date End Date Letha Best MD [address] [facility] [place] [address] PCP - General Family Medicine 05/18/23 Sana Key DO [address] [facility] [place] [address] PCP - ACO Reach 07/08/23 Magnetic Prospecting Operator Relationship Specialty Start Date End Date Letha Best [address] [facility] [place] [address] PCP - General Family Medicine 06/15/23 Vimal Crandall MD [address] [facility] [address] [place] [address] Physician Hematology/Oncology 02/06/20 Soha Nunn APRN.HIM MANAGER [address] [facility] [address] [place] [address] Nurse Practitioner Hematology/Oncology 02/06/20 Arcelia Thomas, ALEX [address] [facility] [address] [place] [address] Specialty Entry Level Project Coordinator Hematology/Oncology 02/06/20 Magnetic Prospecting Operator Relationship Specialty Start Date End Date Letha Best MD [address] [facility] [place], [place] [phone] PCP - General Family Medicine 05/18/23 Sana Key DO [address] [place] [address] PCP - ACO Reach 07/08/23 Magnetic Prospecting Operator Relationship Specialty Start Date End Date Letha Best [address] [place] [phone] PCP - General Family Medicine 06/15/23 Vimal Crandall MD [address] [facility] [place] [address] Physician Hematology/Oncology 02/06/20 Soha Nunn APRN.HIM MANAGER [address] [facility] [place] [address] Nurse Practitioner Hematology/Oncology 02/06/20 Arcelia Thomas, ALEX [address] [facility] [place] [address] Specialty Entry Level Project Coordinator Hematology/Oncology 02/06/20 Magnetic Prospecting Operator Relationship Specialty Start Date End Date Letha Best MD [address] [place] [address] PCP - General Family Medicine 05/18/23 Sana Key DO [address] [place] [address] PCP - ACO Reach 07/08/23 Magnetic Prospecting Operator Relationship Specialty Start Date End Date Letha Best [address] [place] [phone] PCP - General Family Medicine 06/15/23 Vimal Crandall MD [address] [facility] [place] [address] Physician Hematology/Oncology 02/06/20 Soha Nunn, TUTU.HIM MANAGER [address] [facility] [place] [address] Nurse Practitioner Hematology/Oncology 02/06/20 Arcelia Thomas, ALEX [address] [facility] [place] [address] Specialty Entry Level Project Coordinator Hematology/Oncology 02/06/20 Magnetic Prospecting Operator Relationship Specialty Start Date End Date Letha Best [address] [place] [phone] PCP - General Family Medicine 06/15/23 Vimal Crandall MD [address] [facility] [place] [address] Physician Hematology/Oncology 02/06/20 Soha Nunn, INSURANCE SALESMAN.HIM MANAGER [address] [facility] [place] [address] Nurse Practitioner Hematology/Oncology 02/06/20 Arcelia Thomas, ALEX [address] [facility] [place] [address] Specialty Entry Level Project Coordinator Hematology/Oncology 02/06/20 Magnetic Prospecting Operator Relationship Specialty Start Date End Date Letha Best MD [address] [place] [address] PCP - General Family Medicine 05/18/23 Sana Key DO [address] [place], [place] [phone] PCP - ACO Reach 07/08/23 Magnetic Prospecting Operator Relationship Specialty Start Date End Date Letha Best [address] [facility] [place] [phone] PCP - General Family Medicine 06/15/23 Vimal Crandall MD [address] [facility] [place] [address] Physician Hematology/Oncology 02/06/20 Soha Nunn, INSURANCE SALESMAN.HIM MANAGER [address] [facility] [place] [address] Nurse Practitioner Hematology/Oncology 02/06/20 Arcelia Thomas, ALEX [address] [facility] [place] [address] Specialty Entry Level Project Coordinator Hematology/Oncology 02/06/20 Magnetic Prospecting Operator Relationship Specialty Start Date End Date Letha Best [address] [facility] [place] [phone] PCP - General Family Medicine 06/15/23 Vimal Crandall MD [address] [facility] [place] [address] Physician Hematology/Oncology 02/06/20 Soha Nunn, INSURANCE SALESMAN.HIM MANAGER [address] [facility] [place] [address] Nurse Practitioner Hematology/Oncology 02/06/20 Arcelia Thomas, ALEX [address] [facility] [place] [address] Specialty Entry Level Project Coordinator Hematology/Oncology 02/06/20 Magnetic Prospecting Operator Relationship Specialty Start Date End Date Letha Best [address] [place] [address] PCP - General Family Medicine 06/15/23 Vimal Crandall MD [address] [place] [address] Physician Hematology/Oncology 02/06/20 Soha Nunn, INSURANCE SALESMAN.HIM MANAGER [address] [facility] [place] [address] Nurse Practitioner Hematology/Oncology 02/06/20 Arcelia Thomas, ALEX [address] [place] [address] Specialty Entry Level Project Coordinator Hematology/Oncology 02/06/20 Magnetic Prospecting Operator Relationship Specialty Start Date End Date Letha Best [address] [place] [address] PCP - General Family Medicine 06/15/23 Vimal Crandall MD [address] [place] [address] Physician Hematology/Oncology 02/06/20 Soha Nunn, INSURANCE SALESMAN.HIM MANAGER [address] [place] [address] Nurse Practitioner Hematology/Oncology 02/06/20 Arcelia Thomas, RN [address] [place] [address] Specialty Entry Level Project Coordinator Hematology/Oncology 02/06/20 Magnetic Prospecting Operator Relationship Specialty Start Date End Date Letha Best MD [address] [facility] [place], [place] [phone] PCP - General Family Medicine 05/18/23 Sana Key DO [address] [place] [address] PCP - ACO Reach 07/08/23 Magnetic Prospecting Operator Relationship Specialty Start Date End Date Letha Best [address] [facility] [place] [phone] PCP - General Family Medicine 06/15/23 Vimal Crandall MD [address] [place] [address] Physician Hematology/Oncology 02/06/20 Soha Nunn, INSURANCE SALESMAN.HIM MANAGER [address] [place] [address] Nurse Practitioner Hematology/Oncology 02/06/20 Arcelia Thomas, ALEX [address] [place] [address] Specialty Entry Level Project Coordinator Hematology/Oncology 02/06/20 Magnetic Prospecting Operator Relationship Specialty Start Date End Date Letha Best [address] [facility] [place] [phone] PCP - General Family Medicine 06/15/23 Vimal Crandall MD [address] [place] [address] Physician Hematology/Oncology 02/06/20 Soha Nunn, INSURANCE SALESMAN.HIM MANAGER [address] [place] [place] [address] Nurse Practitioner Hematology/Oncology 02/06/20 Arcelia Thomas, ALEX [address] [facility] [place] [address] Specialty Entry Level Project Coordinator Hematology/Oncology 02/06/20 Magnetic Prospecting Operator Relationship Specialty Start Date End Date Letha Best [address] [place] [phone] PCP - General Family Medicine 06/15/23 Vimal Crandall MD [address] [place] [address] [place] [address] Physician Hematology/Oncology 02/06/20 Soha Nunn APRN.CNP [address] [place] [address] [place] [address] Nurse Practitioner Hematology/Oncology 02/06/20 Arcelia Thomas RN [address] [facility] [place] [address] Specialty Entry Level Project Coordinator Hematology/Oncology 02/06/20 Magnetic Prospecting Operator Relationship Specialty Start Date End Date Letha Best MD [address] [place], [place] [phone] PCP - General Family Medicine 05/18/23 Sana Key DO [address] [place] [address] PCP - ACO Reach 07/08/23 Magnetic Prospecting Operator Relationship Specialty Start Date End Date Letha Best [address] [place] [phone] PCP - General Family Medicine 06/15/23 Vimal Crandall MD [address] [facility] [place] [address] Physician Hematology/Oncology 02/06/20 Soha Nunn APRN.HIM MANAGER [address] [facility] [place] [address] Nurse Practitioner Hematology/Oncology 02/06/20 Arcelia Thomas, ALEX [address] [facility] [place] [address] Specialty Entry Level Project Coordinator Hematology/Oncology 02/06/20 Magnetic Prospecting Operator Relationship Specialty Start Date End Date Letha Best MD [address] [place] [address] PCP - General Family Medicine 05/18/23 Sana Key DO [address] [place] [address] PCP - ACO Reach 07/08/23 Magnetic Prospecting Operator Relationship Specialty Start Date End Date Letha Best MD [address] [place] [address] PCP - General Family Medicine 05/18/23 Sana Key DO [address] [place] [address] PCP - ACO Reach 07/08/23 Magnetic Prospecting Operator Relationship Specialty Start Date End Date Letha Best MD [address] [place] [address] PCP - General Family Medicine 05/18/23 Sana Key DO [address] [place] [address] PCP - ACO Reach 07/08/23 Magnetic Prospecting Operator Relationship Specialty Start Date End Date Letha Best MD [address] [place] [address] PCP - General Family Medicine 05/18/23 Sana Key DO [address] [place] [address] PCP - ACO Reach 07/08/23 Magnetic Prospecting Operator Relationship Specialty Start Date End Date Letha Best [address] [place] [phone] PCP - General Family Medicine 06/15/23 Vimal Crandall MD [address] [facility] [place] [address] Physician Hematology/Oncology 02/06/20 Soha Nunn APRN.HIM MANAGER [address] [facility] [address] [place] [address] Nurse Practitioner Hematology/Oncology 02/06/20 Arcelia Thomas, ALEX [address] [facility] [address] [place] [address] Specialty Entry Level Project Coordinator Hematology/Oncology 02/06/20 Magnetic Prospecting Operator Relationship Specialty Start Date End Date Letha Best MD [address] [place] [address] PCP - General Family Medicine 05/18/23 Sana Key DO [address] [place] [address] PCP - ACO Reach 07/08/23 Magnetic Prospecting Operator Relationship Specialty Start Date End Date Letha Best MD [address] [place] [address] PCP - General Family Medicine 05/18/23 Sana Key DO [address] [place] [address] PCP - ACO Reach 07/08/23 Magnetic Prospecting Operator Relationship Specialty Start Date End Date Letha Best MD [address] [place] [address] PCP - General Family Medicine 05/18/23 Sana Key DO [address] [facility] [place] [address] PCP - ACO Reach 07/08/23 Magnetic Prospecting Operator Relationship Specialty Start Date End Date Letha Best MD [address] [place] [address] PCP - General Family Medicine 05/18/23 Sana Key DO [address] [place] [address] PCP - ACO Reach 07/08/23 Magnetic Prospecting Operator Relationship Specialty Start Date End Date Letha Best MD [address] [place] [address] PCP - General Family Medicine 05/18/23 Sana Key DO [address] [place] [address] PCP - ACO Reach 07/08/23 Magnetic Prospecting Operator Relationship Specialty Start Date End Date Letha Best MD [address] [place] [address] PCP - General Family Medicine 05/18/23 Sana Key DO [address] [place] [address] PCP - ACO Reach 07/08/23 Magnetic Prospecting Operator Relationship Specialty Start Date End Date Letha Best MD [address] [place] [address] PCP - General Family Medicine 05/18/23 Sana Key DO [address] [place] [address] PCP - ACO Reach 07/08/23 Magnetic Prospecting Operator Relationship Specialty Start Date End Date Letha Best MD [address] [place] [address] PCP - General Family Medicine 05/18/23 Sana Key DO [address] [place] [address] PCP - ACO Reach 07/08/23 Magnetic Prospecting Operator Relationship Specialty Start Date End Date Letha Best MD [address] [place] [address] PCP - General Family Medicine 05/18/23 Sana Key DO [address] [place] [address] PCP - ACO Reach 07/08/23 Magnetic Prospecting Operator Relationship Specialty Start Date End Date Letha Best [address] [place] [address] PCP - General Family Medicine 06/15/23 Vimal Crandall MD [address] [facility] [place] [address] Physician Hematology/Oncology 02/06/20 Soha Nunn APRN.HIM MANAGER [address] [place] [address] [place] [address] Nurse Practitioner Hematology/Oncology 02/06/20 Arcelia Thomas, ALEX [address] [place] [address] [place] [address] Specialty Entry Level Project Coordinator Hematology/Oncology 02/06/20 Magnetic Prospecting Operator Relationship Specialty Start Date End Date Letha Best MD [address] [place] [address] PCP - General Family Medicine 05/18/23 Sana Key DO [address] [place] [address] PCP - ACO Reach 07/08/23 Magnetic Prospecting Operator Relationship Specialty Start Date End Date Letha Best MD [address] [place] [address] PCP - General Family Medicine 05/18/23 Sana Key DO [address] [place] [address] PCP - ACO Reach 07/08/23 Magnetic Prospecting Operator Relationship Specialty Start Date End Date Letha Best MD [address] [facility] [place] [address] PCP - General Family Medicine 05/18/23 Sana Key DO [address] [facility] [place] [address] PCP - ACO Reach 07/08/23 Magnetic Prospecting Operator Relationship Specialty Start Date End Date Letha Best MD [address] [facility] [place] [address] PCP - General Family Medicine 05/18/23 Sana Key DO [address] [facility] [place] [address] PCP - ACO Reach 07/08/23 Magnetic Prospecting Operator Relationship Specialty Start Date End Date Letha Best [address] [facility] [place] [address] PCP - General Family Medicine 06/15/23 Vimal Crandall MD [address] [facility] [place] [address] Physician Hematology/Oncology 02/06/20 Soha Nunn APRN.HIM MANAGER [address] [facility] [place] [address] Nurse Practitioner Hematology/Oncology 02/06/20 Arcelia Thomas, ALEX [address] [facility] [place] [address] Specialty Entry Level Project Coordinator Hematology/Oncology 02/06/20 Magnetic Prospecting Operator Relationship Specialty Start Date End Date Letha Best [address] [place] [address] PCP - General Family Medicine 06/15/23 Vimal Crandall MD [address] [facility] [place] [address] Physician Hematology/Oncology 02/06/20 Soha Nunn, INSURANCE SALESMAN.HIM MANAGER [address] [place] [address] Nurse Practitioner Hematology/Oncology 02/06/20 Arcelia Thomas, ALEX [address] [facility] [place] [address] Specialty Entry Level Project Coordinator Hematology/Oncology 02/06/20 Magnetic Prospecting Operator Relationship Specialty Start Date End Date Letha Best MD [address] [place] [address] PCP - General Family Medicine 05/18/23 Sana Key DO [address] [place] [address] PCP - ACO Reach 07/08/23 Magnetic Prospecting Operator Relationship Specialty Start Date End Date Letha Best [address] [place] [phone] PCP - General Family Medicine 06/15/23 Vimal Crandall MD [address] [facility] [place] [address] Physician Hematology/Oncology 02/06/20 Soha Nunn, INSURANCE SALESMAN.HIM MANAGER [address] [place] [address] [place] [address] Nurse Practitioner Hematology/Oncology 02/06/20 Arcelia Thomas, ALEX [address] [facility] [place] [address] Specialty Entry Level Project Coordinator Hematology/Oncology 02/06/20 Magnetic Prospecting Operator Relationship Specialty Start Date End Date Letha Best [address] [place] [address] PCP - General Family Medicine 06/15/23 Vimal Crandall MD [address] [place] [address] [place] [address] Physician Hematology/Oncology 02/06/20 Soha Nunn APRN.CNP [address] [place] [address] [place] [address] Nurse Practitioner Hematology/Oncology 02/06/20 Arcelia Thomas, ALEX [address] [facility] [place] [address] Specialty Entry Level Project Coordinator Hematology/Oncology 02/06/20 Magnetic Prospecting Operator Relationship Specialty Start Date End Date Letha Best MD [address] [facility] [place], [place] [address] PCP - General Family Medicine 05/18/23 Sana Key DO [address] [place], [place] [address] PCP - ACO Reach 07/08/23 Magnetic Prospecting Operator Relationship Specialty Start Date End Date Letha Best [address] [place] [phone] PCP - General Family Medicine 06/15/23 Vimal Crandall MD [address] [facility] [place] [address] Physician Hematology/Oncology 02/06/20 Soha Nunn APRN.HIM MANAGER [address] [facility] [place] [address] Nurse Practitioner Hematology/Oncology 02/06/20 Arcelia Thomas, ALEX [address] [facility] [place] [address] Specialty Entry Level Project Coordinator Hematology/Oncology 02/06/20 Magnetic Prospecting Operator Relationship Specialty Start Date End Date Letha Best MD [address] [place] [address] PCP - General Family Medicine 05/18/23 Sana Key DO [address] [place] [address] PCP - ACO Reach 07/08/23 Magnetic Prospecting Operator Relationship Specialty Start Date End Date Letha Best MD [address] [place] [address] PCP - General Family Medicine 05/18/23 Sana Key DO [address] [place] [address] PCP - ACO Reach 07/08/23 Magnetic Prospecting Operator Relationship Specialty Start Date End Date Letha Best MD [address] [place] [address] PCP - General Family Medicine 05/18/23 Sana Key DO [address] [place] [address] PCP - ACO Reach 07/08/23 Magnetic Prospecting Operator Relationship Specialty Start Date End Date Letha Best [address] [place] [address] PCP - General Family Medicine 06/15/23 Vimal Crandall MD [address] [facility] [place] [address] Physician Hematology/Oncology 02/06/20 Soha Nunn APRN.HIM MANAGER [address] [facility] [place] [address] Nurse Practitioner Hematology/Oncology 02/06/20 Arcelia Thomas, ALEX [address] [facility] [place] [address] Specialty Entry Level Project Coordinator Hematology/Oncology 02/06/20 Magnetic Prospecting Operator Relationship Specialty Start Date End Date Letha Best MD [address] [place] [address] PCP - General Family Medicine 05/18/23 Sana Key DO [address] [place] [address] PCP - ACO Reach 07/08/23 Magnetic Prospecting Operator Relationship Specialty Start Date End Date Letha Best MD [address] [place] [address] PCP - General Family Medicine 05/18/23 Sana Key DO [address] [place] [address] PCP - ACO Reach 07/08/23 Magnetic Prospecting Operator Relationship Specialty Start Date End Date Letha Best MD [address] [place] [address] PCP - General Family Medicine 05/18/23 Sana Key DO [address] [place] [address] PCP - ACO Reach 07/08/23 Magnetic Prospecting Operator Relationship Specialty Start Date End Date Letha Best [address] [place] [phone] PCP - General Family Medicine 06/15/23 Vimal Crandall MD [address] [facility] [place] [address] Physician Hematology/Oncology 02/06/20 Soha Nunn APRN.HIM MANAGER [address] [facility] [place] [address] Nurse Practitioner Hematology/Oncology 02/06/20 Arcelia Thomas, ALEX [address] [facility] [place] [address] Specialty Entry Level Project Coordinator Hematology/Oncology 02/06/20 Magnetic Prospecting Operator Relationship Specialty Start Date End Date Letha Best [address] [place] [phone] PCP - General Family Medicine 06/15/23 Vimal Crandall MD [address] [place] [address] Physician Hematology/Oncology 02/06/20 Soha Nunn, INSURANCE SALESMAN.HIM MANAGER [address] [place] [address] [place] [address] Nurse Practitioner Hematology/Oncology 02/06/20 Arcelia Thomas, ALEX [address] [facility] [place] [address] Specialty Entry Level Project Coordinator Hematology/Oncology 02/06/20 Magnetic Prospecting Operator Relationship Specialty Start Date End Date Letha Best MD [address] [facility] [place], [place] [address] PCP - General Family Medicine 05/18/23 Sana Key DO [address] [place] [address] PCP - ACO Reach 07/08/23 Magnetic Prospecting Operator Relationship Specialty Start Date End Date Letha Best [address] [facility] [address] PCP - General Family Medicine 06/15/23 Vimal Crandall MD [address] [place] [address] [place] [address] Physician Hematology/Oncology 02/06/20 Soha Nunn, INSURANCE SALESMAN.HIM MANAGER [address] [place] [address] [place] [address] Nurse Practitioner Hematology/Oncology 02/06/20 Arcelia Thomas, ALEX [address] [facility] [place] [address] Specialty Entry Level Project Coordinator Hematology/Oncology 02/06/20 Magnetic Prospecting Operator Relationship Specialty Start Date End Date Letha Best [address] [place] [address] PCP - General Family Medicine 06/15/23 Vimal Crandall MD [address] [facility] [place] [address] Physician Hematology/Oncology 02/06/20 Soha Nunn, INSURANCE SALESMAN.HIM MANAGER [address] [facility] [place] [address] Nurse Practitioner Hematology/Oncology 02/06/20 Arcelia Thomas, ALEX [address] [facility] [place] [address] Specialty Entry Level Project Coordinator Hematology/Oncology 02/06/20 Magnetic Prospecting Operator Relationship Specialty Start Date End Date Letha Best MD [address] [facility] [place], [place] [phone] PCP - General Family Medicine 05/18/23 Magnetic Prospecting Operator Relationship Specialty Start Date End Date Letha Best [address] [facility] [place] [address] PCP - General Family Medicine 06/15/23 Vimal Crandall MD [address] [facility] [place] [address] Physician Hematology/Oncology 02/06/20 Soha Nunn, INSURANCE SALESMAN.HIM MANAGER [address] [facility] [place] [address] Nurse Practitioner Hematology/Oncology 02/06/20 Arcelia Thomas RN [address] [place] [address] Specialty Entry Level Project Coordinator Hematology/Oncology 02/06/20 Magnetic Prospecting Operator Relationship Specialty Start Date End Date Letha Best [address] [place] [address] PCP - General Family Medicine 06/15/23 Vimal Crandall MD [address] [place] [address] Physician Hematology/Oncology 02/06/20 Soha Nunn, INSURANCE SALESMAN.HIM MANAGER [address] [facility] [place] [address] Nurse Practitioner Hematology/Oncology 02/06/20 Arcelia Thomas RN [address] [facility] [place] [address] Specialty Entry Level Project Coordinator Hematology/Oncology 02/06/20 Magnetic Prospecting Operator Relationship Specialty Start Date End Date Letha Best [address] [place] [address] PCP - General Family Medicine 06/15/23 Vimal Crandall MD [address] [facility] [place] [address] Physician Hematology/Oncology 02/06/20 Soha Nunn, INSURANCE SALESMAN.HIM MANAGER [address] [place] [address] Nurse Practitioner Hematology/Oncology 02/06/20 Arcelia Thomas RN [address] [place] [address] Specialty Entry Level Project Coordinator Hematology/Oncology 02/06/20 Magnetic Prospecting Operator Relationship Specialty Start Date End Date Letha Best MD [address] [facility] [place], [place] [phone] PCP - General Family Medicine 05/18/23 Magnetic Prospecting Operator Relationship Specialty Start Date End Date Letha Best [address] [facility] [place] [address] PCP - General Family Medicine 06/15/23 Vimal Crandall MD [address] [facility] [place] [address] Physician Hematology/Oncology 02/06/20 Soha Nunn, INSURANCE SALESMAN.HIM MANAGER [address] [facility] [place] [address] Nurse Practitioner Hematology/Oncology 02/06/20 Arcelia Thomas, ALEX [address] [facility] [place] [address] Specialty Entry Level Project Coordinator Hematology/Oncology 02/06/20 Magnetic Prospecting Operator Relationship Specialty Start Date End Date Letha Best [address] [facility] [place] [phone] PCP - General Family Medicine 06/15/23 Vimal Crandall MD [address] [facility] [place] [address] Physician Hematology/Oncology 02/06/20 Soha Nunn, INSURANCE SALESMAN.HIM MANAGER [address] [facility] [place] [address] Nurse Practitioner Hematology/Oncology 02/06/20 Arcelia Thomas RN [address] [facility] [place] [address] Specialty Entry Level Project Coordinator Hematology/Oncology 02/06/20 Magnetic Prospecting Operator Relationship Specialty Start Date End Date Letha Best [address] [place] [address] PCP - General Family Medicine 06/15/23 Vimal Crandall MD [address] [facility] [place] [address] Physician Hematology/Oncology 02/06/20 Soha Nunn, INSURANCE SALESMAN.HIM MANAGER [address] [facility] [place] [address] Nurse Practitioner Hematology/Oncology 02/06/20 Arcelia Thomas RN [address] [facility] [place] [address] Specialty Entry Level Project Coordinator Hematology/Oncology 02/06/20 Keisha Condon LSW Monorail Crane Operator 06/22/24 Magnetic Prospecting Operator Relationship Specialty Start Date End Date Letha Best [address] [place] [address] PCP - General Family Medicine 06/15/23 Vimal Crandall MD [address] [facility] [place] [address] Physician Hematology/Oncology 02/06/20 Soha Nunn, INSURANCE SALESMAN.HIM MANAGER [address] [facility] [place] [address] Nurse Practitioner Hematology/Oncology 02/06/20 Arcelia Thomas RN [address] [facility] [place] [address] Specialty Entry Level Project Coordinator Hematology/Oncology 02/06/20 Keisha Condon, HUGH Monorail Crane Operator 06/22/24 Magnetic Prospecting Operator Relationship Specialty Start Date End Date Letha Best [address] [facility] [place] [phone] PCP - General Family Medicine 06/15/23 Vimal Crandall MD [address] [facility] [place] [address] Physician Hematology/Oncology 02/06/20 Soha Nunn, INSURANCE SALESMAN.HIM MANAGER [address] [facility] [place] [address] Nurse Practitioner Hematology/Oncology 02/06/20 Arcelia Thomas RN [address] [facility] [place] [address] Specialty Entry Level Project Coordinator Hematology/Oncology 02/06/20 Keisha Condon LSW Monorail Crane Operator 06/22/24 Magnetic Prospecting Operator Relationship Specialty Start Date End Date Letha Best [address] [facility] [address] PCP - General Family Medicine 06/15/23 Vmial Crandall MD [address] [facility] [place] [address] Physician Hematology/Oncology 02/06/20 Soha Nunn, INSURANCE SALESMAN.HIM MANAGER [address] [facility] [place] [address] Nurse Practitioner Hematology/Oncology 02/06/20 Arcelia Thomas, ALEX [address] [facility] [place] [address] Specialty Entry Level Project Coordinator Hematology/Oncology 02/06/20 Keisha Condon LSW Monorail Crane Operator 06/22/24 Magnetic Prospecting Operator Relationship Specialty Start Date End Date Letha Best [address] [place] [phone] PCP - General Family Medicine 06/15/23 Vimal Crandall MD [address] [facility] [place] [address] Physician Hematology/Oncology 02/06/20 Soha Nunn APRN.HIM MANAGER [address] [facility] [place] [address] Nurse Practitioner Hematology/Oncology 02/06/20 Arcelia Thomas RN [address] [facility] [place] [address] Specialty Entry Level Project Coordinator Hematology/Oncology 02/06/20 Keisha Condon LSW Monorail Crane Operator 06/22/24 Magnetic Prospecting Operator Relationship Specialty Start Date End Date Letha Best MD [address] [place], [place] [phone] PCP - General Family Medicine 05/18/23 Sana Key DO [address] [place], [place] [address] PCP - ACO Reach 06/22/24 Magnetic Prospecting Operator Relationship Specialty Start Date End Date Letha Best [address] [place] [address] PCP - General Family Medicine 06/15/23 Vimal Crandall MD [address] [place] [address] [place] [address] Physician Hematology/Oncology 02/06/20 Soha Nunn APRN.HIM MANAGER [address] [facility] [place] [address] Nurse Practitioner Hematology/Oncology 02/06/20 Arcelia Thomas, ALEX [address] [place] [address] [place] [address] Specialty Entry Level Project Coordinator Hematology/Oncology 02/06/20 Keisha Condon LSW Monorail Crane Operator 06/22/24 Magnetic Prospecting Operator Relationship Specialty Start Date End Date Letha Best MD [address] [facility] [place] [address] PCP - General Family Medicine 05/18/23 Sana Key DO [address] [facility] [place] [address] PCP - ACO Reach 06/22/24 Magnetic Prospecting Operator Relationship Specialty Start Date End Date Letha Best MD [address] [facility] [place] [address] PCP - General Family Medicine 05/18/23 Sana Key DO [address] [facility] [place] [address] PCP - ACO Reach 06/22/24 Magnetic Prospecting Operator Relationship Specialty Start Date End Date Letha Best MD [address] [place] [address] PCP - General Family Medicine 05/18/23 Sana Key DO [address] [place] [address] PCP - ACO Reach 06/22/24 Magnetic Prospecting Operator Relationship Specialty Start Date End Date Letha Best [address] [place] [address] PCP - General Family Medicine 06/15/23 Vimal Crandall MD [address] [place] [address] [place] [address] Physician Hematology/Oncology 02/06/20 Soha Nunn APRN.HIM MANAGER [address] [place] [address] [place] [address] Nurse Practitioner Hematology/Oncology 02/06/20 Arcelia Thomas, ALEX [address] [place] [address] [place] [address] Specialty Entry Level Project Coordinator Hematology/Oncology 02/06/20 Keisha Condon LSW Monorail Crane Operator 06/22/24 Magnetic Prospecting Operator Relationship Specialty Start Date End Date Letha Best MD [address] [place] [address] PCP - General Family Medicine 05/18/23 Sana Key DO [address] [place], [place] [phone] PCP - ACO Reach 06/22/24 Magnetic Prospecting Operator Relationship Specialty Start Date End Date Letha Best [address] [place] [address] PCP - General Family Medicine 06/15/23 Vimal Crandall MD [address] [place] [address] [place] [address] Physician Hematology/Oncology 02/06/20 Soha Nunn APRN.HIM MANAGER [address] [place] [address] [place] [address] Nurse Practitioner Hematology/Oncology 02/06/20 Arcelia Thomas, ALEX [address] [place] [address] [place] [address] Specialty Entry Level Project Coordinator Hematology/Oncology 02/06/20 Keisha Condon LSW Monorail Crane Operator 06/22/24 Magnetic Prospecting Operator Relationship Specialty Start Date End Date Letha Best MD [address] [place] [address] PCP - General Family Medicine 05/18/23 Sana Key DO [address] [facility] [place] [address] PCP - ACO Reach 06/22/24 Magnetic Prospecting Operator Relationship Specialty Start Date End Date Letha Best MD [address] [place] [facility] [place] [address] PCP - General Family Medicine 05/18/23 Sana Key DO [address] [place] [facility] [place] [address] PCP - ACO Reach 06/22/24 Magnetic Prospecting Operator Relationship Specialty Start Date End Date Letha Best MD [address] [facility] [place] [address] PCP - General Family Medicine 05/18/23 Sana Key DO [address] [place] [address] PCP - ACO Reach 06/22/24 Magnetic Prospecting Operator Relationship Specialty Start Date End Date Letha Best MD [address] [place] [address] PCP - General Family Medicine 05/18/23 Sana Key DO [address] [place] [address] PCP - ACO Reach 06/22/24 Magnetic Prospecting Operator Relationship Specialty Start Date End Date Letha Best MD [address] [place] [address] PCP - General Family Medicine 05/18/23 Sana Key DO [address] [place] [address] PCP - ACO Reach 06/22/24 Magnetic Prospecting Operator Relationship Specialty Start Date End Date Letha Best [address] [place] [address] PCP - General Family Medicine 06/15/23 Vimal Crandall MD [address] [facility] [place] [address] Physician Hematology/Oncology 02/06/20 Soha Nunn APRN.HIM MANAGER [address] [place] [address] Nurse Practitioner Hematology/Oncology 02/06/20 Arcelia Thomas, ALEX [address] [facility] [place] [address] Specialty Entry Level Project Coordinator Hematology/Oncology 02/06/20 Keisha Condon, CABLE WAY OPERATOR Monorail Crane Operator 06/22/24 Magnetic Prospecting Operator Relationship Specialty Start Date End Date Letha Best [address] [facility] [place] [phone] PCP - General Family Medicine 06/15/23 Vimal Crandall MD [address] [facility] [place] [address] Physician Hematology/Oncology 02/06/20 Soha Nunn, INSURANCE SALESMAN.HIM MANAGER [address] [facility] [place] [address] Nurse Practitioner Hematology/Oncology 02/06/20 Arcelia Thomas RN [address] [facility] [place] [address] Specialty Entry Level Project Coordinator Hematology/Oncology 02/06/20 Keisha Condon, HUGH Monorail Crane Operator 06/22/24 Magnetic Prospecting Operator Relationship Specialty Start Date End Date Letha Best [address] [facility] [place] [address] PCP - General Family Medicine 06/15/23 Vimal Crandall MD [address] [facility] [place] [address] Physician Hematology/Oncology 02/06/20 Soha Nunn, INSURANCE SALESMAN.HIM MANAGER [address] [facility] [place] [address] Nurse Practitioner Hematology/Oncology 02/06/20 Arcelia Thomas RN [address] [facility] [place] [address] Specialty Entry Level Project Coordinator Hematology/Oncology 02/06/20 Keisha Condon LSW Monorail Crane Operator 06/22/24 Magnetic Prospecting Operator Relationship Specialty Start Date End Date NasirLetha garcia [address] [facility] [place] [phone] PCP - General Family Medicine 06/15/23 Vimal Crandall MD [address] [facility] [place] [address] Physician Hematology/Oncology 02/06/20 Soha Nunn, INSURANCE SALESMAN.HIM MANAGER [address] [facility] [place] [address] Nurse Practitioner Hematology/Oncology 02/06/20 Arcelia Thomas RN [address] [facility] [place] [address] Specialty Entry Level Project Coordinator Hematology/Oncology 02/06/20 Keisha Condon LSW Monorail Crane Operator 06/22/24 Magnetic Prospecting Operator Relationship Specialty Start Date End Date Letha Best [address] [place] [phone] PCP - General Family Medicine 06/15/23 Vimal Crandall MD [address] [facility] [place] [address] Physician Hematology/Oncology 02/06/20 Soha Nunn, INSURANCE SALESMAN.HIM MANAGER [address] [facility] [place] [address] Nurse Practitioner Hematology/Oncology 02/06/20 Arcelia Thomas RN [address] [facility] [place] [address] Specialty Entry Level Project Coordinator Hematology/Oncology 02/06/20 Keisha Condon LSW Monorail Crane Operator 06/22/24 Magnetic Prospecting Operator Relationship Specialty Start Date End Date NasirLetha garcia [address] [place] [phone] PCP - General Family Medicine 06/15/23 Vimal Crandall MD [address] [facility] [place] [address] Physician Hematology/Oncology 02/06/20 Soha Nunn, INSURANCE SALESMAN.HIM MANAGER [address] [facility] [place] [address] Nurse Practitioner Hematology/Oncology 02/06/20 Arcelia Thomas RN [address] [facility] [place] [address] Specialty Entry Level Project Coordinator Hematology/Oncology 02/06/20 Keisha Condon LSW Monorail Crane Operator 06/22/24 Magnetic Prospecting Operator Relationship Specialty Start Date End Date Letha Best [address] [place] [phone] PCP - General Family Medicine 06/15/23 Vimal Crandall MD [address] [facility] [place] [address] Physician Hematology/Oncology 02/06/20 Soha Nunn, INSURANCE SALESMAN.HIM MANAGER [address] [facility] [place] [address] Nurse Practitioner Hematology/Oncology 02/06/20 Arcelia Thomas, ALEX [address] [facility] [place] [address] Specialty Entry Level Project Coordinator Hematology/Oncology 02/06/20 Keisha Condon LSW Monorail Crane Operator 06/22/24 Magnetic Prospecting Operator Relationship Specialty Start Date End Date NasirLteha garcia [address] [place] [address] PCP - General Family Medicine 06/15/23 Vimal Crandall MD [address] [facility] [place] [address] Physician Hematology/Oncology 02/06/20 Soha Nunn, INSURANCE SALESMAN.HIM MANAGER [address] [facility] [place] [address] Nurse Practitioner Hematology/Oncology 02/06/20 Arcelia Thomas, ALEX [address] [facility] [place] [address] Specialty Entry Level Project Coordinator Hematology/Oncology 02/06/20 Keisha Condon LSW Monorail Crane Operator 06/22/24 Magnetic Prospecting Operator Relationship Specialty Start Date End Date Letha Best [address] [place] [address] PCP - General Family Medicine 06/15/23 Vimal Crandall MD [address] [facility] [place] [address] Physician Hematology/Oncology 02/06/20 Soha Nunn, INSURANCE SALESMAN.HIM MANAGER [address] [facility] [place] [address] Nurse Practitioner Hematology/Oncology 02/06/20 Arcelia Thomas, ALEX [address] [facility] [place] [address] Specialty Entry Level Project Coordinator Hematology/Oncology 02/06/20 Keisha Condon LSW Monorail Crane Operator 06/22/24 Magnetic Prospecting Operator Relationship Specialty Start Date End Date NasirLetha garcia [address] [place] [address] PCP - General Family Medicine 06/15/23 Vimal Crandall MD [address] [facility] [place] [address] Physician Hematology/Oncology 02/06/20 Soha Nunn, INSURANCE SALESMAN.HIM MANAGER [address] [facility] [place] [address] Nurse Practitioner Hematology/Oncology 02/06/20 Arcelia Thomas, ALEX [address] [facility] [place] [address] Specialty Entry Level Project Coordinator Hematology/Oncology 02/06/20 Keisha Condon LSW Monorail Crane Operator 06/22/24 Magnetic Prospecting Operator Relationship Specialty Start Date End Date Letha Best [address] [facility] [address] PCP - General Family Medicine 06/15/23 Vimal Crandall MD [address] [facility] [place] [address] Physician Hematology/Oncology 02/06/20 Soha Nunn, INSURANCE SALESMAN.HIM MANAGER [address] [place] [address] Nurse Practitioner Hematology/Oncology 02/06/20 Arcelia Thomas, ALEX [address] [place] [address] Specialty Entry Level Project Coordinator Hematology/Oncology 02/06/20 Keisha Condon LSW Monorail Crane Operator 06/22/24 Magnetic Prospecting Operator Relationship Specialty Start Date End Date NasirLetha garcia [address] [facility] [place] [address] PCP - General Family Medicine 06/15/23 Vimal Crandall MD [address] [facility] [place] [address] Physician Hematology/Oncology 02/06/20 Soha Nunn, INSURANCE SALESMAN.HIM MANAGER [address] [place] [address] Nurse Practitioner Hematology/Oncology 02/06/20 Arcelia Thomas, ALEX [address] [facility] [place] [address] Specialty Entry Level Project Coordinator Hematology/Oncology 02/06/20 Keisha Condon LSW Monorail Crane Operator 06/22/24 Magnetic Prospecting Operator Relationship Specialty Start Date End Date Letha Best [address] [place] [address] PCP - General Family Medicine 06/15/23 Vimal Crandall MD [address] [place] [address] Physician Hematology/Oncology 02/06/20 Soha Nunn, INSURANCE SALESMAN.HIM MANAGER [address] [place] [address] Nurse Practitioner Hematology/Oncology 02/06/20 Arcelia Thomas, RN [address] [place] [address] Specialty Entry Level Project Coordinator Hematology/Oncology 02/06/20 Keisha Condon LSW Monorail Crane Operator 06/22/24 Magnetic Prospecting Operator Relationship Specialty Start Date End Date Letha Best [address] [place] [address] PCP - General Family Medicine 06/15/23 Vimal Crandall MD [address] [facility] [place] [address] Physician Hematology/Oncology 02/06/20 Soha Nunn, INSURANCE SALESMAN.HIM MANAGER [address] [place] [address] Nurse Practitioner Hematology/Oncology 02/06/20 Arcelia Thomas, ALEX [address] [facility] [place] [address] Specialty Entry Level Project Coordinator Hematology/Oncology 02/06/20 Keisha Condon LSW Monorail Crane Operator 06/22/24 Magnetic Prospecting Operator Relationship Specialty Start Date End Date Letha Best [address] [place] [address] PCP - General Family Medicine 06/15/23 Vimal Crandall MD [address] [facility] [place] [address] Physician Hematology/Oncology 02/06/20 Soha Nunn APRN.HIM MANAGER [address] [facility] [place] [address] Nurse Practitioner Hematology/Oncology 02/06/20 Arcelia Thomas, ALEX [address] [facility] [place] [address] Specialty Entry Level Project Coordinator Hematology/Oncology 02/06/20 Keisha Condon LSW Monorail Crane Operator 06/22/24 Goals (unrecognized section and content) Goals may be documented in a n alternate section FOR RECORDS PERTAINING TO PATIENTS WHO ARE OR HAVE BEEN ENROLLED IN A CHEMICAL DEPENDENCY/SUBSTANCEABUSE PROGRAM, SOME INFORMATION MAY BE OMITTED. This clinical summary was aggregated from multiple sources. Caution should be exercised in using it in the provision of clinical care. This summary normalizes information from multiple sources, and as a consequence, information in this document may materially change the coding, format and clinical context of patient data. In addition, data may be omitted in some cases. CLINICAL DECISIONS SHOULD BE BASED ON THE PRIMARY CLINICAL RECORDS. [facility] [employer] [facility]. provides no warranty or guarantee of the accuracy or completeness of information in this document.
--- NOTE | 2024-08-02 01:11 | ECG_ITS ---
[facility] Test Date: 2024-08-02 Pat Name: DARRIUS BAUER Department: Room: - Gender: Male Fullerette: : 1950 Requested By: [id number] Order Number: [id number] Derek MD: RASHAAD CHURCH M.D. Measurements Intervals [place] Rate: 92 P: 47 IL: 112 QRS: -63 QRSD: 154 T: 28 QT: 414 QTc: 463 Interpretive Statements 1100 Sinus rhythm 2210 Short [place] interval 2450 Right bundle branch block 4164 Twave abnormality, possible anterior ischemia 7200 Abnormal left axis deviation 9150 abnormal ECG Compared to ECG 04/17/2024 15:19:44 Short [place] interval now present Possible ischemia now present Electronically Signed On 08-02-2024 7:47:47 EDT by RASHAAD CHURCH M.D.
--- NOTE | 2024-08-02 01:11 | ED.FEVER1 ---
HPI - Fever General Chief Complaint: Fever Stated Complaint: HIGH FEVER,ON CHEMO Time Seen by Provider: 08/02/24 00:57 Source: patient Mode of arrival: Wheelchair History of Present Illness HPI Narrative: This 73-year-old male who is currently receiving therapy through [facility] for multiple myeloma that was diagnosed in 2019 and he underwent a bone marrow transplant in 2020 is brought the emergency department by his for evaluation of a fever. The patient was started on new medications on Tuesday C1D1 Sharyn = POM (2mg) + dexamethasone and for the past 3 days has been receiving Neupogen and is scheduled for an additional Neupogen shot tomorrow presents for evaluation of a fever Tmax 104 at home. He took 2 doses of Tylenol prior to arrival. He was started on Tuesday empirically on Augmentin and Cipro due to the fact that he develops fevers frequently after receiving chemotherapy. He states he feels dizzy and lightheaded. He is mildly short of breath. He denies any chest pain. He has no sore throat runny nose or congestion. He denies any abdominal pain. He denies any nausea vomiting or diarrhea. He does not have any skin rash. He does not have any headache or neck pain. Related Data Home Medications ?Medication ?Instructions ?Recorded ?Confirmed allopurinol 100 mg tablet 100 mg PO QDAY 04/17/24 08/02/24 diphenoxylate-atropine 2.5 1 tab PO Q6H PRN diarrhea 04/17/24 08/02/24 mg-0.025 mg tablet gabapentin 100 mg capsule 100 mg PO TID 04/17/24 08/02/24 insulin aspart U-100 100 unit/mL 1 sliding scale dose subcut TID 04/17/24 08/02/24 (3 mL) subcutaneous pen (Novolog FlexPen U-100 Insulin aspart) insulin glargine 100 unit/mL (3 52 unit subcut QAM 04/17/24 08/02/24 mL) subcutaneous pen (Basaglar KwikPen U-100 Insulin) ropinirole 2 mg tablet 2 mg PO QPM 04/17/24 08/02/24 tamsulosin 0.4 mg capsule 0.4 mg PO Q24H 04/17/24 08/02/24 cholecalciferol (vitamin D3) 50 2,000 unit PO DAILY 05/11/24 08/02/24 mcg (2,000 unit) capsule (Vitamin D3) Lactobacills gasseri-Bifidobac 1 cap PO DAILY PRN gut health 08/02/24 08/02/24 bifidum,longum 1.5 billion cell capsule (Probiotic Colon Care) acetaminophen 500 mg tablet 1,000 mg PO Q8H PRN fever or pain 08/02/24 08/02/24 (Tylenol Extra Strength) acyclovir 400 mg tablet 400 mg PO BID 08/02/24 08/02/24 amoxicillin 875 mg-potassium 1 tab PO Q12H 08/02/24 08/02/24 clavulanate 125 mg tablet aspirin 81 mg tablet,delayed 81 mg PO DAILY 08/02/24 08/02/24 release (Adult Low Dose Aspirin) cetirizine 10 mg tablet 10 mg PO DAILY 08/02/24 08/02/24 ciprofloxacin HCl 500 mg tablet 500 mg PO Q12H 08/02/24 08/02/24 dexamethasone 4 mg tablet 4 mg PO QWEEK 08/02/24 08/02/24 melatonin 5 mg capsule 5 mg PO QPM PRN sleep 08/02/24 08/02/24 metoprolol succinate 25 mg 12.5 mg PO DAILY 08/02/24 08/02/24 tablet,extended release 24 hr multivitamin with minerals-folic 2 tab PO DAILY 08/02/24 08/02/24 acid 80 mcg chewable tablet (Centrum MultiGummies Men) pomalidomide 2 mg capsule 2 mg PO DAILY 08/02/24 08/02/24 (Pomalyst) Allergies Allergy/AdvReac Type Severity Reaction Status Date / Time amoxicillin Allergy Severe Diarrhea Verified 08/02/24 02:23 diphenhydramine Allergy Severe Unknown Verified 08/02/24 02:23 sulfamethoxazole (From Allergy Severe Unknown Verified 08/02/24 02:23 Sulfamethoxazole-Trimethoprim) trimethoprim (From Allergy Severe Unknown Verified 08/02/24 02:23 Sulfamethoxazole-Trimethoprim) oseltamivir (From Tamiflu) Allergy Mild Fatigued Verified 05/11/24 14:00 Review of Systems ROS Status of ROS 10 or more systems reviewed and unremarkable except as noted in history and below [facility] Medical History (Updated 08/02/24 @ 04:23 by Gabbi Tse MD) Rectal bleeding ?K62.5 - Hemorrhage of anus and rectum (ICD-10) Cirrhosis of liver ?K74.60 - Unspecified cirrhosis of liver (ICD-10) Small bowel obstruction ?K56.609 - Unspecified intestinal obstruction, unspecified as to partial versus complete obstruction (ICD-10) Hepatocellular carcinoma ?C22.0 - Liver cell carcinoma (ICD-10) History of colonic diverticulitis ?Z87.19 - Personal history of other diseases of the digestive system (ICD-10) Acute kidney injury ?N17.9 - Acute kidney failure, unspecified (ICD-10) AF (paroxysmal atrial fibrillation) ?I48.0 - Paroxysmal atrial fibrillation (ICD-10) Hypokalemia ?E87.6 - Hypokalemia (ICD-10) Leukopenia ?D72.819 - Decreased white blood cell count, unspecified (ICD-10) Hypomagnesemia ?E83.42 - Hypomagnesemia (ICD-10) Diarrhea ?R19.7 - Diarrhea, unspecified (ICD-10) Colitis ?K52.9 - Noninfective gastroenteritis and colitis, unspecified (ICD-10) Normocytic anemia ?D64.9 - Anemia, unspecified (ICD-10) Neutropenia associated with infection ?D70.3 - Neutropenia due to infection (ICD-10) Pancytopenia ?D61.818 - Other pancytopenia (ICD-10) Stage 3 chronic kidney disease ?N18.30 - Chronic kidney disease, stage 3 unspecified (ICD-10) Lactic acidosis ?E87.20 - Acidosis, unspecified (ICD-10) Acute blood loss anemia ?D62 - Acute posthemorrhagic anemia (ICD-10) Thrombocytopenia ?D69.6 - Thrombocytopenia, unspecified (ICD-10) Obesity ?E66.9 - Obesity, unspecified (ICD-10) Liver mass ?R16.0 - Hepatomegaly, not elsewhere classified (ICD-10) Abdominal aortic aneurysm ?I71.40 - Abdominal aortic aneurysm, without rupture, unspecified (ICD-10) Recurrent major depression in remission ?F33.40 - Major depressive disorder, recurrent, in remission, unspecified (ICD-10) Platelets decreased ?D69.6 - Thrombocytopenia, unspecified (ICD-10) Malnutrition of moderate degree ?E44.0 - Moderate protein-calorie malnutrition (ICD-10) Renal insufficiency ?N28.9 - Disorder of kidney and ureter, unspecified (ICD-10) Orthostatic hypotension ?I95.1 - Orthostatic hypotension (ICD-10) Immunodeficiency ?D84.9 - Immunodeficiency, unspecified (ICD-10) Pruritus ?L29.9 - Pruritus, unspecified (ICD-10) 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, unspecified (ICD-10) Oral thrush ?B37.0 - Candidal stomatitis (ICD-10) Decreased appetite ?R63.0 - Anorexia (ICD-10) Flatus ?R14.3 - Flatulence (ICD-10) Occult blood in stools ?R19.5 - Other fecal abnormalities (ICD-10) Constipation ?K59.00 - Constipation, unspecified (ICD-10) Restless leg syndrome ?G25.81 - Restless legs syndrome (ICD-10) Depression ?F32.A - Depression, unspecified (ICD-10) Hyperlipemia ?E78.5 - Hyperlipidemia, unspecified (ICD-10) Pancytopenia due to antineoplastic chemotherapy ?D61.810 - Antineoplastic chemotherapy induced pancytopenia (ICD-10) ?T45.1X5A - Adverse effect of antineoplastic and immunosuppressive drugs, initial encounter (ICD-10) Chemotherapy-induced nausea ?R11.0 - Nausea (ICD-10) ?T45.1X5A - Adverse effect of antineoplastic and immunosuppressive drugs, initial encounter (ICD-10) Elevated LFTs ?R79.89 - Other specified abnormal findings of blood chemistry (ICD-10) HTN (hypertension) ?I10 - Essential (primary) hypertension (ICD-10) Cancer associated pain ?G89.3 - Neoplasm related pain (acute) (chronic) (ICD-10) Neuropathy ?G62.9 - Polyneuropathy, unspecified (ICD-10) Multiple myeloma ?C90.00 - Multiple myeloma not having achieved remission (ICD-10) SIRS (systemic inflammatory response syndrome) ?R65.10 - Systemic inflammatory response syndrome (SIRS) of non-infectious origin without acute organ dysfunction (ICD-10) Neutropenic fever ?D70.9 - Neutropenia, unspecified (ICD-10) ?R50.81 - Fever presenting with conditions classified elsewhere (ICD-10) Diabetes ?E11.9 - Type 2 diabetes mellitus without complications (ICD-10) Surgical History (Updated 08/02/24 @ 02:37 by Caitlin Duvall) S/P autologous bone marrow transplantation ?Z94.81 - Bone marrow transplant status (ICD-10) History of resection of liver ?Z90.49 - Acquired absence of other specified parts of digestive tract (ICD-10) History of stem cell transplant ?Z94.84 - Stem cells transplant status (ICD-10) Social History Little interest or pleasure in doing things: not at all Feeling down, depressed, or hopeless: several days Exam Narrative Exam Narrative: Vital signs and Nursing Notes reviewed: Patient is afebrile, tachycardic with a pulse of 111 and blood pressure is elevated 148/66, he is not hypoxic with pulse ox of 95% on room air General: Awake, alert, oriented, no acute distress, lying comfortably on the stretcher HEENT: Normocephalic atraumatic, mucous membranes are pink and slightly dry, no oral thrush noted Neck: Supple, no meningeal signs, no anterior or posterior cervical lymphadenopathy Chest: Lungs are clear to auscultation with good air entry, there is no wheezing rhonchi or rales appreciated no accessory muscle use, patient is speaking in complete sentences-no chest wall tenderness to palpation CVS: Regular rate and rhythm S1-S2, no murmurs rubs or gallops, pulses are brisk and equal bilaterally ABD: Soft, nondistended, nontender, no rebound guarding or rigidity, bowel sounds are normal, no pulsatile masses appreciated Extremities: Moving all extremities, no lower extremity tenderness or swelling noted, negative Homans' sign, pulses are brisk and equal bilaterally Skin: Normal in appearance without rash,pallor, petechiae or purpura Neuro: No focal deficits Constitutional Vital Signs, click to edit/add: Last Vital Signs Temp 98.5 F 08/02/24 03:05 Pulse 78 08/02/24 04:00 Resp 21 H 08/02/24 04:00 BP 127/65 08/02/24 04:00 Pulse Ox 96 08/02/24 04:00 O2 Del Method Room Air 08/02/24 00:50 Course Vital Signs Vital signs: Vital Signs Temperature 98.2 F 08/02/24 00:50 Pulse Rate 111 H 08/02/24 00:50 Respiratory Rate 20 08/02/24 00:50 Blood Pressure 148/66 H 08/02/24 00:50 Pulse Oximetry 95 08/02/24 00:50 Oxygen Delivery Method Room Air 08/02/24 00:50 Temperature 98.5 F 08/02/24 03:05 Pulse Rate 78 08/02/24 04:00 Respiratory Rate 21 H 08/02/24 04:00 Blood Pressure 127/65 08/02/24 04:00 Pulse Oximetry 96 08/02/24 04:00 Oxygen Delivery Method Room Air 08/02/24 00:50 MDM - Fever MDM Narrative Medical decision making narrative: This 73-year-old male who is currently on chemotherapy for multiple myeloma and is a patient at [facility]. He started a new chemotherapy regimen on Tuesday and has been receiving IV Neupogen since that time presents for evaluation of a fever Tmax 104. He states he feels lightheaded and mildly short of breath. After initiation of the new chemotherapy, he was also started on Augmentin and Cipro. These but these antibiotics were started on Monday 07/31. He had taken Tylenol twice prior to arrival and upon arrival his temperature was 99.4. He was mildly tachycardic with a pulse of 111, blood pressure was stable at 148/66 and he was not hypoxic with pulse ox of 95% on room air. Septic workup was ordered with 2 sets of blood cultures, lactic acid, CBC with differential, comprehensive metabolic profile, EKG, chest x-ray and urinalysis. COVID 19 and Influenza swabs are negative. His white count is low at 1.5. Hemoglobin is stable at 8.8. Platelet count is low at 71. Lactic acid is elevated at 3.1. Sodium is mildly low at 132. Potassium is normal. CO2 is normal at 24.7. BUN and creatinine are elevated but consistent with his prior studies at 40 and 1.62. Troponin is normal. Chest x-ray was reviewed by radiology and does not show any acute findings. EKG was a right bundle branch block with no acute findings. After he was able to urinate IV Zosyn was started and IV vancomycin was added. He received 30 cc/kg of IV normal saline per the sepsis protocol. He has remained hemodynamically stable in the emergency department. Urine is negative for infection. Case was discussed with Dr Alcantara, [facility] oncology and he is accepted for transfer. The transfer center and Dr. Alcantara suggested that he be admitted to this facility if a bed is not available after shift change later this morning. The patient's is adamant that he be transferred to the [facility]. I explained to them that I do not have any control over where he would be placed by the [facility] but the explained to the patient's nurse that they will not go to the main campus. At 5 AM I called the transfer center myself explained to them that their preference to go to the [place] facility. I was told at that time that the cancer patients do not typically go to the [facility] but the transfer center was aware of the request. Medical Records Attestation: I reviewed the patient's medical records. Lab Data Attestation: I reviewed the patient's lab results. Labs: Lab Results 08/02/24 08/02/24 08/02/24 Range/Units 01:23 02:56 04:27 WBC 1.5 L (4.0-11.0) 10^3/uL RBC 2.57 L (4.70-6.10) 10^6/uL Hgb 8.8 L (14.0-18.0) g/dL Hct 26.5 L (42.0-54.0) % MCV 103.1 H (80.0-94.0) fL MCH 34.2 H (25.9-34.0) pg MCHC 33.2 (29.9-35.2) g/dL RDW 17.3 H (11.0-15.0) % Plt Count 71 L (150-450) 10^3/uL MPV 10.2 (9.5-13.5) fL Seg Neuts % (Manual) 26.0 L (43.0-75.0) Band Neutrophils % 2.0 (0-5) % Lymphocytes % (Manual) 48.0 (20.5-60.0) % Monocytes % (Manual) 15.0 H (1.7-12.0) % Eosinophils % (Manual) 7.0 (0.9-7.0) % Basophils % (Manual) 1.0 (0.2-2.0) % Metamyelocytes % 1.0 Neutrophils # (Manual) 0.39 L (1.4-6.5) 10^3/uL Band Neutrophils # 0.0 (0.0-0.3) 10^3/uL Lymphocytes # (Manual) 0.72 L (1.20-3.80) 10^3/uL Monocytes # (Manual) 0.22 L (0.30-0.80) 10^3/uL Eosinophils # (Manual) 0.10 (0.00-0.70) 10^3/uL Basophils # (Manual) 0.01 (0.00-0.10) 10^3/uL Metamyelocytes # 0.01 Nucleated RBCs 4 Hypochromasia 1+ Anisocytosis 2+ Macrocytosis 1+ Sodium 132 L (136-145) mmol/L Potassium 4.0 (3.5-5.1) mmol/L Chloride 99 (98-107) mmol/L Carbon Dioxide 24.7 (21.0-32.0) mmol/L Anion Gap 12.3 BUN 40.0 H (7.0-18.0) mg/dL Creatinine 1.62 H (0.70-1.30) mg/dL Est GFR ( Amer) 51 L (>=60 mL/min/1.73m^2) Est GFR (Non-Af Amer) 42 L (>=60 mL/min/1.73m^2) BUN/Creatinine Ratio 24.7 Glucose 342 H (74-106) mg/dL Lactate 3.1 H* (0.4-2.0) mmol/L Calcium 8.4 L (8.5-10.1) mg/dL Total Bilirubin 0.7 (0.2-1.0) mg/dL AST 56 H (15-37) U/L ALT 84 H (16-63) U/L Alkaline Phosphatase 119 H (46-116) U/L Troponin I High Sens 25.6 (4.0-76.1) pg/mL NT-Pro-B Natriuret Pep 701.0 (<=900.0) pg/mL Total Protein 6.5 (6.4-8.2) g/dL Albumin 2.9 L (3.4-5.0) g/dL Globulin 3.6 g/dL Albumin/Globulin Ratio 0.8 Urine Color Yellow (YELLOW) Urine Clarity Clear (CLEAR) Urine pH 6.0 (5.0-9.0) Ur Specific [place] 1.020 (1.005-1.025) Urine Protein >=300 A (NEG/TRACE) mg/dL Urine Glucose (UA) >=1000 A (NEGATIVE) mg/dL Urine Ketones Negative (NEGATIVE) mg/dL Urine Occult Blood Moderate A (NEGATIVE) Urine Nitrite Negative (NEGATIVE) Urine Bilirubin Negative (NEGATIVE) Urine Urobilinogen 0.2 (0.2-1.0) EU/dL Ur Leukocyte Esterase Negative (NEGATIVE) Urine RBC 10-20 A (0-2) #/HPF Urine WBC 2-5 A (NONE SEEN) #/HPF Ur Squamous Epith Cells Rare (NONE/RARE) #/LPF Urine Crystals None seen (None Seen) #/HPF Urine Bacteria Trace A (NONE SEEN) #/HPF Urine Casts None seen (NONE SEEN) #/LPF Urine Mucus None seen (NONE SEEN) Ur Culture Indicated? No Influenza Type A Ag Negative Influenza Type B Ag Negative SARS-CoV-2 Ag (CV2AG) Negative (NEGATIVE) 08/02/24 Range/Units 04:30 WBC (4.0-11.0) 10^3/uL RBC (4.70-6.10) 10^6/uL Hgb (14.0-18.0) g/dL Hct (42.0-54.0) % MCV (80.0-94.0) fL MCH (25.9-34.0) pg MCHC (29.9-35.2) g/dL RDW (11.0-15.0) % Plt Count (150-450) 10^3/uL MPV (9.5-13.5) fL Seg Neuts % (Manual) (43.0-75.0) Band Neutrophils % (0-5) % Lymphocytes % (Manual) (20.5-60.0) % Monocytes % (Manual) (1.7-12.0) % Eosinophils % (Manual) (0.9-7.0) % Basophils % (Manual) (0.2-2.0) % Metamyelocytes % Neutrophils # (Manual) (1.4-6.5) 10^3/uL Band Neutrophils # (0.0-0.3) 10^3/uL Lymphocytes # (Manual) (1.20-3.80) 10^3/uL Monocytes # (Manual) (0.30-0.80) 10^3/uL Eosinophils # (Manual) (0.00-0.70) 10^3/uL Basophils # (Manual) (0.00-0.10) 10^3/uL Metamyelocytes # Nucleated RBCs Hypochromasia Anisocytosis Macrocytosis Sodium (136-145) mmol/L Potassium (3.5-5.1) mmol/L Chloride (98-107) mmol/L Carbon Dioxide (21.0-32.0) mmol/L Anion Gap BUN (7.0-18.0) mg/dL Creatinine (0.70-1.30) mg/dL Est GFR ( Amer) (>=60 mL/min/1.73m^2) Est GFR (Non-Af Amer) (>=60 mL/min/1.73m^2) BUN/Creatinine Ratio Glucose (74-106) mg/dL Lactate 2.1 H* (0.4-2.0) mmol/L Calcium (8.5-10.1) mg/dL Total Bilirubin (0.2-1.0) mg/dL AST (15-37) U/L ALT (16-63) U/L Alkaline Phosphatase (46-116) U/L Troponin I High Sens (4.0-76.1) pg/mL NT-Pro-B Natriuret Pep (<=900.0) pg/mL Total Protein (6.4-8.2) g/dL Albumin (3.4-5.0) g/dL Globulin g/dL Albumin/Globulin Ratio Urine Color (YELLOW) Urine Clarity (CLEAR) Urine pH (5.0-9.0) Ur Specific [place] (1.005-1.025) Urine Protein (NEG/TRACE) mg/dL Urine Glucose (UA) (NEGATIVE) mg/dL Urine Ketones (NEGATIVE) mg/dL Urine Occult Blood (NEGATIVE) Urine Nitrite (NEGATIVE) Urine Bilirubin (NEGATIVE) Urine Urobilinogen (0.2-1.0) EU/dL Ur Leukocyte Esterase (NEGATIVE) Urine RBC (0-2) #/HPF Urine WBC (NONE SEEN) #/HPF Ur Squamous Epith Cells (NONE/RARE) #/LPF Urine Crystals (None Seen) #/HPF Urine Bacteria (NONE SEEN) #/HPF Urine Casts (NONE SEEN) #/LPF Urine Mucus (NONE SEEN) Ur Culture Indicated? Influenza Type A Ag Influenza Type B Ag SARS-CoV-2 Ag (CV2AG) (NEGATIVE) ECG Data Attestation: I personally reviewed and interpreted this ECG as follows: (Sinus rhythm at 92 bpm, right bundle branch block, nonspecific ST changes, no acute ST segment elevation or T wave inversion) Discharge Plan Discharge Chief Complaint: Fever Clinical Impression: Neutropenic fever, Multiple myeloma Patient Disposition: [facility] Time of Disposition Decision: 04:23 Discharge Location: [facility]
[2024-08-02 01:42] LABS: Hematocrit 26.5 % (42.0-54.0); Hemoglobin 8.8 g/dL (14.0-18.0); Mean Corpuscular HGB Conc 33.2 g/dL (29.9-35.2); Mean Corpuscular Hemoglobin 34.2 pg (25.9-34.0); Mean Corpuscular Volume 103.1 fL (80.0-94.0); Mean Platelet Volume 10.2 fL (9.5-13.5); Platelet Count 71 10^3/uL (150-450); Red Blood Count 2.57 10^6/uL (4.70-6.10); Red Cell Distribution Width 17.3 % (11.0-15.0); White Blood Count 1.5 10^3/uL (4.0-11.0)
[2024-08-02] MEDS: 0.9 % SODIUM CHLORIDE 2,259 ML 753 ML IV (01:43)
[2024-08-02 01:59] LABS: Alanine Aminotransferase 84 U/L (16-63); Albumin Globulin Ratio 0.8; Albumin Level 2.9 g/dL (3.4-5.0); Alkaline Phosphatase 119 U/L (46-116); Anion Gap 12.3; Aspartate Amino Transferase 56 U/L (15-37); BUN Creatinine Ratio 24.7; Bilirubin Total 0.7 mg/dL (0.2-1.0); Calcium 8.4 mg/dL (8.5-10.1); Carbon Dioxide 24.7 mmol/L (21.0-32.0); Chloride 99 mmol/L (98-107); Estimated GFR (African America 51 (>=60 mL/min/1.73m^2); Estimated GFR (Non-African Ame 42 (>=60 mL/min/1.73m^2); Globulin 3.6 g/dL; Sodium 132 mmol/L (136-145); Total Protein 6.5 g/dL (6.4-8.2)
[2024-08-02 02:00] LABS: Glucose 342 mg/dL (74-106)
[2024-08-02 02:21] LABS: Troponin I High Sensitivity 25.6 pg/mL (4.0-76.1)
[2024-08-02 02:23] LABS: Lactate/Lactic Acid 3.1 mmol/L (0.4-2.0)
[2024-08-02 02:24] LABS: Basophils Abs Manual 0.01 10^3/uL (0.00-0.10); Lymphocytes Absolute Manual 0.72 10^3/uL (1.20-3.80); Metamyelocytes Absolute Manual 0.01; Monocytes Absolute Manual 0.22 10^3/uL (0.30-0.80); Nucleated Red Blood Cells 4; Segmented Neut Absolute Manual 0.39 10^3/uL (1.4-6.5)
[2024-08-02 02:25] LABS: Hypochromasia 1+
[2024-08-02 02:26] LABS: Macrocytosis 1+
[2024-08-02 02:28] LABS: Anisocytosis 2+
[2024-08-02] MEDS: PIPERACILLIN SODIUM/TAZOBACTAM 3.375 GM in 0.9 % SODIUM CHLORIDE 50 ML IV (02:57)
[2024-08-02 03:06] LABS: Bilirubin Urine NEGATIVE (NEGATIVE); Blood Urine MODERATE (NEGATIVE); Clarity Urine CLEAR (CLEAR); Color Urine YELLOW (YELLOW); Glucose Urine UA >=1000 mg/dL (NEGATIVE); Ketones Urine NEGATIVE (NEGATIVE); Leukocyte Esterase Urine NEGATIVE (NEGATIVE); Nitrite Urine NEGATIVE (NEGATIVE); Protein Urine >=300 mg/dL (NEG/TRACE); Urobilinogen Urine 0.2 EU/dL (0.2-1.0)
[2024-08-02 03:15] LABS: Bacteria Urine TRACE #/HPF (NONE SEEN); Cast Seen? NONE SEEN #/LPF (NONE SEEN); Crystals Seen? None Seen #/HPF (None Seen); Mucus Urine NONE SEEN (NONE SEEN); Squamous Epithelial Cell Urine RARE #/LPF (NONE/RARE); Urine Culture Indicated NO
[2024-08-02] MEDS: VANCOMYCIN HCL 1,500 MG in 0.9 % SODIUM CHLORIDE 500 ML 250 MG IV (03:30)
[2024-08-02 04:50] LABS: Influenza Virus A Antigen Negative; Influenza Virus B Antigen Negative; Internal Control Within Normal Limits; SARS-CoV-2 Ag NEGATIVE (NEGATIVE)
[2024-08-02 05:00] LABS: Lactate/Lactic Acid 2.1 mmol/L (0.4-2.0)
--- NOTE | 2024-08-02 08:01 | PC.NURSE ---
ETA of 30-60 minutes for [facility]. Patient and aware.
--- NOTE | 2024-08-02 09:47 | PC.NURSE ---
[facility] here for transport. Report called to ALEX Morrison at [facility].
== END 2024-08-02 09:49 | disposition short-term general hospital (02) ==
PROVIDERS: Emergency Provider Emergency Medicine; PCP Family Medicine
DX: D70.9 Neutropenia, unspecified (principal); R50.81 Fever presenting with conditions classified elsewhere; C90.00 Multiple myeloma not having achieved remission; Z94.81 Bone marrow transplant status; Z79.60 Long term (current) use of unspecified immunomodulators and immunosuppressants; R42 Dizziness and giddiness; R06.02 Shortness of breath; Z90.49 Acquired absence of other specified parts of digestive tract; Z94.84 Stem cells transplant status
CPT/HCPCS: 36415; 71046; 80053; 81001; 83605; 83880; 84484; 85007; 85027; 87040; 87804; 87811; 93005; 96361; 96365; 96366; 96367; 99285; J2543; J3370